=== PATIENT | male | born 1945 | race Caucasian/White ===

== ENCOUNTER → 2017-08-24 09:36 | Outpatient (CLI) | payer MEDICARE, OTHER, SELFPAY ==
[2017-08-24 10:32] LABS: Absolute Lymphocyte Count 1.17 X10^3/ul (0.83-4.51); Absolute Neutrophil Count 3.9 X10^3/uL (2.0-7.7); Basophil# 0.08 X10^3/uL; Basophil% 1.4 % (0-1); Eosinophils% 3.5 % (0-5); Hematocrit 39.3 % (40-54); Hemoglobin 13.2 g/dl (13.0-16.5); Lymphocyte # 1.17 X10^3/ul (4.0); Lymphocyte % 20.5 % (19-41); Mean Corp Hgb Conc 33.6 g/gl (32-36); Mean Corpuscular Hgb 30.7 pg (27.0-32.0); Mean Corpuscular Volume 91.4 fL (80-94); Mean Platelet Vol. 10.7 fl (6.2-12.0); Monocyte# 0.41 X10^3/uL; Monocyte% 7.2 % (0-10); Neutrophil # 3.85 X10^3/uL (2.7-7.7); Neutrophil % 67.4 % (47-70); POSITIVE DIFFERENTIAL NO; Platelet Count 342 K/mm3 (150-450); RBC Distribution Width CV 12.6 % (11.6-14.6); RBC Distribution Width SD 41.1 fl (35.1-43.9); White Blood Count 5.7 K/mm3 (4.4-11.0)
[2017-08-24 10:33] LABS: POSITIVE COUNT NO; POSITIVE MORPHOLOGY NO
[2017-08-24 10:48] LABS: Hemoglobin A1c 5.8 % (4.2-6.3)
[2017-08-24 11:02] LABS: BUN 24 mg/dL (7-18); Creatinine, Serum 1.42 mg/dL (0.70-1.30); Glucose 152 mg/dL (70-110)
[2017-08-24 11:03] LABS: AST(SGOT) 16 U/L (15-37); Alanine Aminotransfer ALT/SGPT 25 U/L (16-61); Albumin, Serum 3.7 g/dL (3.2-5.0); Alkaline Phosphatase 64 U/L (45-117); Anion Gap 9 (5-15); BUN/Creat Ratio 16.9 RATIO (10-20); Calcium,Total 9.3 mg/dL (8.5-10.1); Chloride 108 mmol/L (98-107); Cholesterol 158 mg/dL (200); EST Glomerular Filtration Rate 52 mL/min (>60); Est Glom Filt Rate - Afr Amer 63 mL/min (>60); Globulin 3.7 g/dL (2.2-4.2); High Density Lipoprotein 47 mg/dL; Potassium 4.5 mmol/L (3.5-5.1); Protein, Total 7.4 g/dL (6.4-8.2); Sodium Level 140 mmol/L (136-145); Triglycerides 127 mg/dL; Very Low Density Lipoprotein 25 mg/dL (5-40)
[2017-08-25 10:01] LABS: Vitamin B12 352 pg/mL (211-911)
== END ==
PROVIDERS: Family Provider Family Medicine; PCP Family Medicine; Visit Provider Family Medicine
DX: E11.21 Type 2 diabetes mellitus with diabetic nephropathy (principal); G62.9 Polyneuropathy, unspecified; I10 Essential (primary) hypertension; E78.5 Hyperlipidemia, unspecified
CPT/HCPCS: 36415; 80053; 80061; 82607; 83036; 85025

== ENCOUNTER → 2017-11-25 13:49 | Outpatient (CLI) | payer MEDICARE, OTHER, SELFPAY | PROVIDERS: Family Provider Family Medicine; PCP Family Medicine; Visit Provider Family Medicine | DX: G45.3 Amaurosis fugax (principal); E11.21 Type 2 diabetes mellitus with diabetic nephropathy; E78.5 Hyperlipidemia, unspecified | CPT/HCPCS: 93880 ==

== ENCOUNTER → 2017-11-26 12:56 | Outpatient (CLI) | payer MEDICARE, OTHER, SELFPAY ==
--- NOTE | 2017-11-26 13:05 | ECHOCS_ITS ---
Reason For Study: MURMUR Procedure This was a 2D Doppler, Color Flow transthoracic echocardiogram. The exam was of fair technical quality due to body habitus. The study was technically difficult. Contrast injection was performed. Exam performed in department. Left Ventricle Normal LV size. Left ventricular systolic function is normal. The estimated ejection fraction is 65 %. Unable to assess diastolic dysfunction due to arrhythmia. No regional wall motion abnormalities noted. Right Ventricle Normal RV size. Normal systolic function. Atria Normal left atrium. Normal right atrium. No doppler evidence for ASD. Mitral Valve There is no mitral annular calcification. Normal mitral valve. Trivial mitral valve insufficiency. Tricuspid Valve Normal tricuspid valve. Trivial tricuspid valve insufficiency. Aortic Valve Trisinus/trileaflet aortic valve. Mild focal aortic valve calcification. Pulmonic Valve The pulmonic valve is not well visualized. Trivial pulmonic valve insufficiency. Great Vessels Normal sized aortic root. Pericardium/Pleural No pericardial effusion. Medication 22 gauge I.V. with prn adaptor inserted into left arm. Diluted definity 2.0ml given slow IV push to enhance endocardial definition. MMode/2D Measurements & Calculations LVIDd: 4.8 cm IVSd: 0.84 cm Ao root diam: 3.0 cm LVIDs: 3.5 cm LVPWd: 1.0 cm LA dimension: 3.8 cm RVDd: 3.3 cm FS: 28.1 % LAV(MOD-bp): 57.0 ml LA A4 area: 19.2 cm2 RA A4 area: 14.1 cm2 LAV(MOD-bp) Indexed: 30.1 ml/m2 LAV(MOD-sp2): 57.6 ml LAV(MOD-sp4): 57.5 ml Doppler Measurements & Calculations MV E max ori: 110.0 cm/sec Lat Peak E' Ori: 11.2 cm/sec Med Peak E' Ori: 9.2 cm/sec MV A max ori: 92.4 cm/sec E/E' lat: 9.9 E/E' med: 12.0 MV E/A: 1.2 Ao V2 max: 186.0 cm/sec LV V1 max: 84.5 cm/sec PA V2 max: 124.6 cm/sec Ao max P.8 mmHg LV V1 max P.9 mmHg Interpretation Summary The study was technically difficult. Contrast injection was performed. Left ventricular systolic function is normal. The estimated ejection fraction is 65 %. Trivial mitral valve insufficiency. Trivial tricuspid valve insufficiency. Mild focal aortic valve calcification. Trivial pulmonic valve insufficiency. Unable to assess diastolic dysfunction due to arrhythmia. Ordering Physician: Damion Toscano Referring Physician: Guillaume Hancock MD Performed By: Aliyah Villela, TAQUERIA, RVT
== END ==
PROVIDERS: Family Provider Family Medicine; PCP Family Medicine; Visit Provider Family Medicine
DX: R01.1 Cardiac murmur, unspecified (principal); G45.3 Amaurosis fugax; I10 Essential (primary) hypertension
CPT/HCPCS: 93005; 93306; Q9957; A4216; C8929

== ENCOUNTER 2017-11-30 10:01 | Inpatient (IN) | payer MEDICARE, OTHER, SELFPAY ==
--- NOTE | 2017-11-26 13:59 | EKG12_ITS ---
Test Reason : PRE-OP Blood Pressure : / mmHG Vent. Rate : 056 BPM Atrial Rate : 056 BPM P-R Int : 118 ms QRS Dur : 098 ms QT Int : 408 ms P-R-T Axes : 017 -19 017 degrees QTc Int : 393 ms Sinus bradycardia Poor R wave progression Confirmed by KIYA SABA, ALBERT ([id number]), web editor KALEIGH SWEET ([id number]) on 11/29/2017 1:43:45 PM Referred By: Guillaume Hancock Confirmed By:ALBERT HUERTAS MD
[2017-11-26 15:56] LABS: Anion Gap 7 (5-15); BUN 25 mg/dL (7-18); BUN/Creat Ratio 17.4 RATIO (10-20); Calcium,Total 9.3 mg/dL (8.5-10.1); Chloride 109 mmol/L (98-107); Creatinine, Serum 1.44 mg/dL (0.70-1.30); EST Glomerular Filtration Rate 51 mL/min (>60); Est Glom Filt Rate - Afr Amer 62 mL/min (>60); Glucose 60 mg/dL (74-106); Potassium 4.8 mmol/L (3.5-5.1); Sodium Level 140 mmol/L (136-145)
[2017-11-26 16:37] LABS: Hematocrit 40.6 % (40-54); Hemoglobin 13.5 g/dl (13.0-16.5); Mean Corp Hgb Conc 33.3 g/gl (32-36); Mean Corpuscular Volume 93.1 fL (80-94); Mean Platelet Vol. 12.1 fl (6.2-12.0); Platelet Count 294 K/mm3 (150-450); RBC Distribution Width CV 12.8 % (11.6-14.6); RBC Distribution Width SD 42.7 fl (35.1-43.9); Red Blood Count 4.36 M/mm3 (4.6-6.2); White Blood Count 8.9 K/mm3 (4.4-11.0)
[2017-11-26 16:51] LABS: Scan Indicated on CBC? Y/N NO
[2017-11-29 15:00] LABS: Hemoglobin A1c 6.1 % (4.2-6.3)
[2017-11-30] VITALS (23 sets, daily range): BP systolic 110–160; BP diastolic 43–73; PULSE 62–85; RESP 16–18; TEMP 36.1–36.8; O2SAT 93–100; BMI 28.3; BMI 28.9
[2017-11-30 10:26] LABS: Bedside Glucose 138 mg/dL (70-110)
--- NOTE | 2017-11-30 10:50 | OP.PCM_ITS ---
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 Right carotid endarterectomy with bovine patch angioplasty Description of Surgical Findings:: At the bedside timeout and informed consent was obtained. Phoenix test was performed of the left wrist. It was gently extended. Prepped with Betadine. Under ultrasound guidance 1% lidocaine was instilled. 1 cc was used. Under ultrasound guidance a 20-gauge Angiocath was advanced into the left radial artery. I then utilized Seldinger wire technique. I exchanged out for a 20- gauge aero kit Angiocath. Secured at the skin with interrupted 3-0 silk. It was connected to pressure tubing. OpSite dressing applied. Jessica wrap applied. He tolerated the procedure well. The hand was viable to completion without apparent complication. Good waveform was obtained. He was subsequently taken back to the operating room for planned definitive surgery.
[2017-11-30] MEDS: Cefazolin 2 GM in 0.9% Normal Saline 100 ML IV (11:35)
--- NOTE | 2017-11-30 11:42 | PCM.DC.GS ---
Discharge Diet: Light diet - advance as tolerated - if you have questions about your diet instructions, please talk to you doctor. Discharge Activity: May Not Drive - for 1 week or while taking narcotic pain medicine., May Not Shower Lifting Restrictions: 10 pounds Call your doctor if your incision/area has: Continuous Slow Oozing, Sudden Increased Bleeding, Increased Pain/ Swelling, Increased Redness, Foul Smelling Discharge Call your doctor if you observe: Fever of 101 or Higher Suture Line Care: Avoid Pulling/Pushing, Avoid Pinching/Bending Additional Dressing/Incision Instructions:: Please keep your right neck incision clean and dry for 3 days. You may shower starting Wednesday. You may remove the Steri-Strips in 1 week Allergies/Adverse Reactions: Allergies tetanus and diphtheria toxoids Allergy (Verified 11/26/17 15:46) Rash Fbjxjpz-Oqm-Lmy Reductase Inhibitor Adverse Reaction (Verified 11/26/17 15:46) Other Medications to take at Discharge Aspirin E.C. [Ecotrin] 81 mg PO DAILY@0800 04/16/17 Gabapentin [Neurontin] 100 mg PO QHS 04/16/17 Glimepiride [Amaryl] 2 mg PO BREAKFAST 04/16/17 Hydrochlorothiazide [Hctz] 25 mg PO DAILY 04/16/17 Lisinopril [Zestril] 10 mg PO DAILY 04/16/17 Metformin HCl 1,000 mg PO BID 04/16/17 Ranitidine [Zantac] 150 mg PO QHS 04/16/17 Tamsulosin HCl [Flomax] 0.4 mg PO QHS 04/16/17 pioglitazone 15 mg tablet 15 mg PO DAILY 11/26/17 Hydrocodone Bitart/Apap 5-325 [[place] 5MG-325MG] 1 tablet PO Q6H PRN PRN 4 Days #10 tablet 11/30/17 The following prescriptions were given: Hydrocodone Bitart/Apap 5-325 [[place] 5MG-325MG] 1 tablet PO Q6H PRN PRN 4 Days #10 tablet PRN Reason: Pain Primary Care Physician: Damion Toscano MD [Primary Care Provider] - Please Follow Up With: Guillaume Hancock MD - [phone] When: Call to make an appointment to be seen in about 10 days.
--- NOTE | 2017-11-30 12:00 | PLAQ_PTH ---
PATIENT: SYD BARNETT LOC: MS2 U#:[id number] AGE/SX: 72/M RO[facility] [facility] RE11/30/[address]: Dr. Guillaume Hancock MD : 1945 BED: 1 DIS: 12/01/2017 SPEC #: [id number] RECD: 12/01/17 10:09 STATUS: LILLI REMitesh #: [id number] JOE: 11/30/17 12:[address]: Guillaume Hancock DEPT: SURGICAL PATHOLOGY RECD BY: Lloyd Hall ENTERED: 12/01/17 10:57 SP TYPE: PLAQUE OTHR DR: Dr. Damion Toscano MD Tissues: PLAQUE Procedures: Decalcification bone/plaque Surgery Specimen Level III HEADER OPERATION: Right carotid endarterectomy with patch angioplasty PRE-OP DIAGNOSIS: Right carotid stenosis TISSUE SUBMITTED: Right carotid plaque MICROSCOPIC DIAGNOSIS Right carotid plaque, endarterectomy: Atherosclerotic tissue with focal calcification (plaque). SJ:mayra 12/07/17 GROSS DESCRIPTION Received in fixative is one container labeled with the patient's name and designated right carotid plaque. The specimen consists of a previously opened Y-shaped piece of hastings-yellow indurated tissue measuring 2.5 cm in length and up to 1 cm in diameter. The specimen cuts with a gritty sensation. The entire specimen is submitted in one cassette after decalcification. / MINE:mayra 12/01/17 TC:5 CPT: 17148, 12210
[2017-11-30] MEDS: Heparin Injection (Vial) 5,000 UNIT/ML VIAL 5000 UNIT (12:15)
[2017-11-30] MEDS: Bupivacaine Mpf 0.5% 30 ML VIAL (14:00)
--- NOTE | 2017-11-30 14:08 | PCM.OPRPT ---
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 Right carotid endarterectomy with bovine patch angioplasty Description of Surgical Findings:: At the bedside timeout and informed consent was obtained. Phoenix test was performed of the left wrist. It was gently extended. Prepped with Betadine. Under ultrasound guidance 1% lidocaine was instilled. 1 cc was used. Under ultrasound guidance a 20-gauge Angiocath was advanced into the left radial artery. I then utilized Seldinger wire technique. I exchanged out for a 20-gauge aero kit Angiocath. Secured at the skin with interrupted 3-0 silk. It was connected to pressure tubing. OpSite dressing applied. Jessica wrap applied. He tolerated the procedure well. The hand was viable to completion without apparent complication. Good waveform was obtained. He was subsequently taken back to the operating room for planned definitive surgery. Patient subsequently underwent general endotracheal intubation and anesthesia. The right neck was sterilely prepped draped. Ancef 2 g given intravenous preoperatively. An oblique incision was made along the anterior border the sternocleidomastoid. Sharp dissection was carried down through the substance tissue. The platysma was incised. The crossing facial vein was identified and it was ligated with 3-0 Vicryl. Tedious dissection was performed deeply and then it became apparent that the patient had a very low-lying carotid bifurcation. The incision had to be lengthened inferiorly. Finally the carotid bulb could be identified and sharp and blunt dissection was then performed proximally. Circumferential control was obtained a Dacron tape and a Denise fashion. At this point the patient received 10 units of heparin. Further dissection was performed identifying the internal carotid it appeared to have plaque extending for quite a distance I got to an area that appeared to be clear and then placed a Dacron tape and Dangelo tourniquet. Circumferential trial was obtained of the external carotid. The patient had well adequate circling time of the heparin. Peripheral vascular clamps were placed on the internal and external carotid and a Walker clamp was placed on the common carotid and 11 blade was made used to make an arteriotomy but I could not extended through the hard plaque so that I had to readjust and use a 15 blade to incise directly down upon the plaque I used large Denise scissors to create a opening. The vessel had to be irrigated I then placed a #8 USCI style shunt cephalad and proximally. Time for shunt placement was 4 minutes and 27 seconds. Then performed a endarterectomy at the layer of the external elastic lamina. The plaque was sharply transected proximally and then it was nicely feathered at the internal carotid and inversion enterectomy was performed of the external carotid. Further debris was carefully removed. I then utilized a Vascu-Guard graft reference number [id number] and . PN #[id number]. Lot number [id number]. I shaped to form and performed a patch angioplasty with a running 6-0 Prolene. Prior to completion the shunt was removed there was good retrograde flow from the internal carotid external carotid common carotid. The angioplasty was completed initial flow was instituted from the external carotid common carotid find the internal carotid. Time for shunt removal was 2 minutes and 25's. A repair suture of 7-0 Prolene was used to obtain hemostasis. The patient then received in aliquots a total 30 mg of protamine his reversal. I used Surgicel to assist with hemostasis and I removed the Surgicel. The platysma was approximated running 3-0 Vicryl. The skin edges approximately running septic or 5-0 Vicryl. Steri-Strips Telfa tape dressings applied. Sponge instrument and needle counts were reported to the surgeon to be correct. Blood loss was approximately 300 cc. He tolerated the procedure well and was grossly checked neurologically. He was taken to the recovery room in satisfactory condition Specimens plaque. Drains none. Blood loss 300. Guillaume Hancock M.D., F.A.C.S. Type of Anesthesia:: General Anesthesiologist: Yosef Tijerina
--- NOTE | 2017-11-30 14:16 | OP.PCM_ITS ---
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 Right carotid endarterectomy with bovine patch angioplasty Description of Surgical Findings:: At the bedside timeout and informed consent was obtained. Phoenix test was performed of the left wrist. It was gently extended. Prepped with Betadine. Under ultrasound guidance 1% lidocaine was instilled. 1 cc was used. Under ultrasound guidance a 20-gauge Angiocath was advanced into the left radial artery. I then utilized Seldinger wire technique. I exchanged out for a 20- gauge aero kit Angiocath. Secured at the skin with interrupted 3-0 silk. It was connected to pressure tubing. OpSite dressing applied. Jessica wrap applied. He tolerated the procedure well. The hand was viable to completion without apparent complication. Good waveform was obtained. He was subsequently taken back to the operating room for planned definitive surgery. Patient subsequently underwent general endotracheal intubation and anesthesia. The right neck was sterilely prepped draped. Ancef 2 g given intravenous preoperatively. An oblique incision was made along the anterior border the sternocleidomastoid. Sharp dissection was carried down through the substance tissue. The platysma was incised. The crossing facial vein was identified and it was ligated with 3-0 Vicryl. Tedious dissection was performed deeply and then it became apparent that the patient had a very low-lying carotid bifurcation. The incision had to be lengthened inferiorly. Finally the carotid bulb could be identified and sharp and blunt dissection was then performed proximally. Circumferential control was obtained a Dacron tape and a Denise fashion. At this point the patient received 10 units of heparin. Further dissection was performed identifying the internal carotid it appeared to have plaque extending for quite a distance I got to an area that appeared to be clear and then placed a Dacron tape and Dangelo tourniquet. Circumferential trial was obtained of the external carotid. The patient had well adequate circling time of the heparin. Peripheral vascular clamps were placed on the internal and external carotid and a Walker clamp was placed on the common carotid and 11 blade was made used to make an arteriotomy but I could not extended through the hard plaque so that I had to readjust and use a 15 blade to incise directly down upon the plaque I used large Denise scissors to create a opening. The vessel had to be irrigated I then placed a #8 USCI style shunt cephalad and proximally. Time for shunt placement was 4 minutes and 27 seconds. Then performed a endarterectomy at the layer of the external elastic lamina. The plaque was sharply transected proximally and then it was nicely feathered at the internal carotid and inversion enterectomy was performed of the external carotid. Further debris was carefully removed. I then utilized a Vascu-Guard graft reference number [id number] and . PN #[id number]. Lot number [id number]. I shaped to form and performed a patch angioplasty with a running 6-0 Prolene. Prior to completion the shunt was removed there was good retrograde flow from the internal carotid external carotid common carotid. The angioplasty was completed initial flow was instituted from the external carotid common carotid find the internal carotid. Time for shunt removal was 2 minutes and 25's. A repair suture of 7-0 Prolene was used to obtain hemostasis. The patient then received in aliquots a total 30 mg of protamine his reversal. I used Surgicel to assist with hemostasis and I removed the Surgicel. The platysma was approximated running 3-0 Vicryl. The skin edges approximately running septic or 5-0 Vicryl. Steri-Strips Telfa tape dressings applied. Sponge instrument and needle counts were reported to the surgeon to be correct. Blood loss was approximately 300 cc. He tolerated the procedure well and was grossly checked neurologically. He was taken to the recovery room in satisfactory condition Specimens plaque. Drains none. Blood loss 300. Guillaume Hancock M.D., F.A.C.S. Type of Anesthesia:: General Anesthesiologist: Yosef Tijerina
[2017-11-30 19:16] LABS: Bedside Glucose 100 mg/dL (70-110)
[2017-11-30] MEDS: Cefazolin 1 GM/50 ML BAG IV (20:22)
[2017-11-30] MEDS: Acetaminophen 325 MG Tablet PO (22:00)
[2017-11-30] MEDS: Gabapentin 100 MG Capsule PO (22:00)
[2017-11-30] MEDS: Famotidine 20 MG Tablet PO (22:00)
[2017-11-30] MEDS: Tamsulosin HCl 0.4 MG Capsule PO (22:00)
[2017-12-01 00:09] VITALS: BP 126/64; PULSE 90; RESP 18; TEMP 36.8; O2SAT 96
[2017-12-01 02:58] VITALS: BP 130/59; PULSE 69; RESP 18; TEMP 36.9
[2017-12-01] MEDS: Cefazolin 1 GM/50 ML BAG IV (02:58)
[2017-12-01 05:46] VITALS: BP 133/81; PULSE 70; RESP 18; TEMP 36.6; O2SAT 99
--- NOTE | 2017-12-01 06:02 | PCM.PN.SRG ---
Subjective: Pt feels well. No recurrence of right eye visual disturbance - Physical Exam General: Alert, Oriented x3, Cooperative HEENT: - - mild ecchymosis right neck Neurological: Cranial nerves II-XII grossly intact Vital Signs Temp Pulse Resp BP Pulse Ox 97.8 F 70 18 133/81 H 99 12/01/17 05:46 12/01/17 05:46 12/01/17 05:46 12/01/17 05:46 12/01/17 05:46 Oxygen Delivery Method Room Air Weight: 179 lb 14.355 oz Body Mass Index (BMI) 28.9 Finger Stick Blood Glucose 100 Intake and Output for Last 24 Hours 11/29/17 11/30/17 12/01/17 23:59 23:59 23:59 Intake Total 1974 / 1974 782 / 782 Output Total 350 / 350 1100 / 1100 Balance 1625 / 1625 -318 / -318 POC Glucose 11/30/17 11/30/17 19:14 10:23 POC Glucose 100 138 H Medical Necessity - Tobacco Use Smoking Status: Former smoker Assessment/Plan Good CEA result Urinary retention. Need to assure improved prior to DC
--- NOTE | 2017-12-01 06:14 | NURSING ---
PT REPORTED PRESSURE IN HIS BLADDER. BLADDER SCANNED PT FOR 381. PT IS VOIDING WELL AND ENCOURAGED TO STAND WHILE VOIDING. WILL CONTINUE TO MONITOR. DR LEE NOTIFIED.
[2017-12-01 07:55] VITALS: BP 137/63; PULSE 65; RESP 16; TEMP 36.8; O2SAT 100
[2017-12-01] MEDS: Acetaminophen 325 MG Tablet PO (08:09)
[2017-12-01 08:36] LABS: Bedside Glucose 134 mg/dL (70-110)
[2017-12-01] MEDS: Aspirin E.C. 81 MG Tablet PO (08:38)
[2017-12-01] MEDS: Glimepiride 2 MG Tablet PO (08:39)
[2017-12-01] MEDS: Lisinopril 10 MG Tablet PO (08:39)
[2017-12-01] MEDS: hydroCHLOROthiazide 25 MG Tablet PO (08:39)
[2017-12-01] MEDS: metFORMIN HCl 1,000 MG Tablet 1000 MG PO (08:39)
[2017-12-01] MEDS: Pioglitazone Hydrochloride 15 MG Tablet PO (08:39)
--- NOTE | 2017-12-01 08:39 | NURSING ---
0800 meds given with 1000 meds as pt states that he does at home
--- NOTE | 2017-12-01 11:25 | NURSING ---
Eileen Kraft called in to check if patient has been urinating- pt reports that he is urinating large amounts- similar to how he was prior to surgery. Educated patient and his that if pt would become unable to urinate that he should go see physician. Pt verbalized understanding- and states that he is having no difficulty.
--- NOTE | 2017-12-01 11:26 | CASEMGMT ---
See RN CM assessment link. No dc needs identified. Pt to return home today with family support. Milena LUNAN RN ACM
== END 2017-12-01 12:04 | disposition home or self-care (01) | DRG 38 ==
LOC: ACINP 10:04 → MS2 15:19
PROVIDERS: Admitting Provider Surgery; Family Provider Family Medicine; PCP Family Medicine; Visit Provider Surgery
PROC: 03CK0ZZ Extirpation of Matter from Right Internal Carotid Artery, Open Approach (ICD-10-PCS; CPT 35301; principal; 2017-11-30 11:40)
DX: I65.21 Occlusion and stenosis of right carotid artery (principal); G45.3 Amaurosis fugax; E11.9 Type 2 diabetes mellitus without complications; I10 Essential (primary) hypertension; E78.5 Hyperlipidemia, unspecified; M19.90 Unspecified osteoarthritis, unspecified site; K21.9 Gastro-esophageal reflux disease without esophagitis; R33.9 Retention of urine, unspecified; Z79.84 Long term (current) use of oral hypoglycemic drugs; Z79.02 Long term (current) use of antithrombotics/antiplatelets; Z79.82 Long term (current) use of aspirin; Z79.899 Other long term (current) drug therapy; Z87.891 Personal history of nicotine dependence
CPT/HCPCS: 36415; 80048; 82962; 83036; 85027; 88304; 88311; 93005; 97802; J7040; J7120

== ENCOUNTER → 2017-12-30 08:40 | Outpatient (CLI) | payer MEDICARE, OTHER, SELFPAY ==
--- NOTE | 2017-12-30 08:40 | DT_ITS ---
This patient was seen during an EMR downtime December 27, 2017 - January 03, 2018. This patient may have a combination of paper and electronic documentation or all paper documentation. All documentation is viewable within the e-chart portion of [employer] for each patient visit.
--- NOTE | 2017-12-30 08:44 | CDUL_ITS ---
Reason For Study: carotid stenosis Rt. Velocities/BP Prox CCA 54.5/19.9 cm/sec. Mid CCA 39.8/11.4 cm/sec. Dist CCA 50.3/19.6 cm/sec. Prox ICA 45.6/13.8 cm/sec. Mid ICA 76.2/21.2 cm/sec. Dist ICA 120/32.2 cm/sec. Rt. ICA/CCA = 3.0. Prox ECA 348/44.9 cm/sec. Rt. Vert. 62.5/18.1 cm/sec. Right Extracranial There is intimal thickening but no significant atherosclerotic plaque noted in the right common carotid artery. There is intimal thickening but no significant atherosclerotic plaque noted in the right internal carotid artery. There is heterogeneous, irregular atherosclerotic plaque noted in the right external carotid artery. Antegrade flow is noted in the right vertebral artery. Interpretation Summary Evidence of right carotid endarterectomy with no significant plague of the bulb or internal carotid. <50% stenosis right internal carotid Severe stenosis right external carotid Patent and antegrade right vertebral Ordering Physician: Guillaume Hancock Performed By: Talon Christie RVTiera
== END ==
PROVIDERS: Family Provider Family Medicine; PCP Family Medicine; Visit Provider Surgery
DX: G45.3 Amaurosis fugax (principal)
CPT/HCPCS: 93882

== ENCOUNTER → 2018-02-02 10:47 | Outpatient (CLI) | payer MEDICARE, OTHER, SELFPAY ==
[2018-02-02 12:39] LABS: Anion Gap 9 (5-15); BUN 24 mg/dL (7-18); Calcium,Total 8.9 mg/dL (8.5-10.1); Chloride 109 mmol/L (98-107); EST Glomerular Filtration Rate 49 mL/min (>60); Est Glom Filt Rate - Afr Amer 59 mL/min (>60); Glucose 174 mg/dL (74-106); Potassium 4.8 mmol/L (3.5-5.1); Sodium Level 140 mmol/L (136-145)
== END ==
PROVIDERS: Family Provider Family Medicine; PCP Family Medicine; Visit Provider Family Medicine
DX: I12.9 Hypertensive chronic kidney disease with stage 1 through stage 4 chronic kidney disease, or unspecified chronic kidney disease (principal); N18.9 Chronic kidney disease, unspecified
CPT/HCPCS: 36415; 80048

== ENCOUNTER → 2018-04-06 14:05 | Outpatient (CLI) | payer MEDICARE, OTHER, SELFPAY ==
[2018-04-06 16:00] LABS: Anion Gap 11 (5-15); BUN 17 mg/dL (7-18); BUN/Creat Ratio 11.9 RATIO (10-20); Calcium,Total 9.2 mg/dL (8.5-10.1); Chloride 109 mmol/L (98-107); Creatinine, Serum 1.43 mg/dL (0.70-1.30); EST Glomerular Filtration Rate 52 mL/min (>60); Est Glom Filt Rate - Afr Amer 63 mL/min (>60); Glucose 71 mg/dL (74-106); Potassium 4.8 mmol/L (3.5-5.1); Sodium Level 143 mmol/L (136-145)
== END ==
PROVIDERS: Family Provider Family Medicine; PCP Family Medicine; Visit Provider Family Medicine
DX: N18.9 Chronic kidney disease, unspecified (principal)
CPT/HCPCS: 36415; 80048

== ENCOUNTER → 2018-07-27 08:18 | Outpatient (CLI) | payer MEDICARE, OTHER, SELFPAY ==
[2018-07-27 12:38] LABS: Absolute Lymphocyte Count 1.64 X10^3/ul (0.83-4.51); Absolute Neutrophil Count 3.1 X10^3/uL (2.0-7.7); Basophil% 1.8 % (0-1); Eosinophil# 0.36 X10^3/uL; Eosinophils% 6.3 % (0-5); Hematocrit 38.5 % (40-54); Hemoglobin 12.8 g/dl (13.0-16.5); Lymphocyte # 1.64 X10^3/ul (4.0); Lymphocyte % 28.8 % (19-41); Mean Corp Hgb Conc 33.2 g/gl (32-36); Mean Corpuscular Hgb 30.9 pg (27.0-32.0); Mean Platelet Vol. 11.7 fl (6.2-12.0); Monocyte# 0.53 X10^3/uL; Monocyte% 9.3 % (0-10); Neutrophil # 3.05 X10^3/uL (2.7-7.7); Neutrophil % 53.6 % (47-70); Platelet Count 252 K/mm3 (150-450); RBC Distribution Width CV 12.5 % (11.6-14.6); RBC Distribution Width SD 41.6 fl (35.1-43.9); Red Blood Count 4.14 M/mm3 (4.6-6.2); White Blood Count 5.7 K/mm3 (4.4-11.0)
[2018-07-27 12:41] LABS: POSITIVE COUNT NO; POSITIVE DIFFERENTIAL NO; POSITIVE MORPHOLOGY NO
[2018-07-27 12:50] LABS: Anion Gap 11 (5-15); BUN 18 mg/dL (7-18); BUN/Creat Ratio 12.2 RATIO (10-20); Calcium,Total 8.7 mg/dL (8.5-10.1); Chloride 108 mmol/L (98-107); Creatinine, Serum 1.48 mg/dL (0.70-1.30); EST Glomerular Filtration Rate 50 mL/min (>60); Est Glom Filt Rate - Afr Amer 60 mL/min (>60); Glucose 169 mg/dL (74-106); Potassium 4.8 mmol/L (3.5-5.1); Sodium Level 139 mmol/L (136-145)
== END ==
PROVIDERS: Family Provider Family Medicine; PCP Family Medicine; Visit Provider Family Medicine
DX: I12.9 Hypertensive chronic kidney disease with stage 1 through stage 4 chronic kidney disease, or unspecified chronic kidney disease (principal); N18.9 Chronic kidney disease, unspecified
CPT/HCPCS: 36415; 80048; 85025

== ENCOUNTER → 2018-08-11 12:44 | Outpatient (CLI) | payer MEDICARE, OTHER, SELFPAY ==
--- NOTE | 2018-08-11 09:00 | CYST_PTH ---
PATIENT: SYD BARNETT LOC: JULIENNE U#:[id number] AGE/SX: 79/M ROOM: RE08/11/[address]: Dr. Guillaume Hancock MD : 1945 BED: DIS: SPEC #: [id number] RECD: 08/11/18 12:14 STATUS: LILLI GRANT #: [id number] JOE: 08/11/18 09:[address]: Guillaume Hancock DEPT: SURGICAL PATHOLOGY RECD BY: Randy Vo ENTERED: 08/11/18 12:50 SP TYPE: Cyst OTHR DR: Dr. Damion Toscano MD Tissues: CYST Procedures: PAS Fungus (control) Special Stain Group I Surgery Specimen Level IV AFB Stain (control) HEADER OPERATION: Excision chin cyst PRE-OP DIAGNOSIS: Chin cyst TISSUE SUBMITTED: Chin tissue MICROSCOPIC DIAGNOSIS Skin and soft tissue of chin, biopsy: Non-necrotizing granulomatous and chronic inflammation. Focal benign histiocytic reaction. No evidence of malignancy. Negative for acid-fast bacilli and fungal organisms. See comment. AM:rg 08/12/18 COMMENT PASF and AFB stains with matched controls were used in the evaluation of this case. MICROSCOPIC DESCRIPTION Slides are reviewed. GROSS DESCRIPTION Received in fixative is one container labeled with the patient's name and designated chin. The specimen consists of a hastings-white skin ellipse measuring 1.5 x 0.5 cm and up to 0.4 cm in thickness. The specimen is inked, serially sectioned and submitted entirely in one cassette. / SJ:mayra 08/11/18 TC:3 CPT: 38137, 15223 x2
--- OUTSIDE RECORDS SUMMARY | 2018-10-16 05:22 | XMS RPT_ITS ---
:1945 Author Organization OHIP Support Name Relationship Address Phone ANTHONY BARNETT Unavailable [address] + [place] [address] ANIBAL, NOEMI Unavailable . + [place] [address] R Unavailable Unavailable Unavailable ALVO, [place] Unavailable [address] + [place] [address] ANIBAL, NOEMI Unavailable Unavailable + [place] [address] R Unavailable Unavailable Unavailable ALVO, [place] Unavailable [address] + [place] [address] ANIBAL, NOEMI Unavailable . + [place] [address] R Unavailable Unavailable Unavailable ALVO, [place] Unavailable [address] + [place] [address] ANIBAL, NOEMI Unavailable . + [place] [address] R Unavailable Unavailable Unavailable ALVO, [place] Unavailable [address] + [place] [address] ANIBAL, NOEMI Unavailable . + [place] [address] R Unavailable Unavailable Unavailable ALVO, [place] Unavailable [address] + [place] [address] ANIBAL, NOEMI Unavailable . + [place] [address] R Unavailable Unavailable Unavailable ALVO, [place] Unavailable [address] + [place] [address] ANIBAL, NOEMI Unavailable . + [place] [address] R Unavailable Unavailable Unavailable ALVO, [place] Unavailable [address] + [place] [address] ANIBAL, NOEMI Unavailable . + [place] [address] R Unavailable Unavailable Unavailable ALVO, [place] Unavailable [address] + [place] [address] ANIBAL, NOEMI Unavailable . + [place] [address] R Unavailable Unavailable Unavailable ALVO, [place] Unavailable [address] + [place] [address] ANIBAL, NOEMI Unavailable . + [place] [address] R Unavailable Unavailable Unavailable ALVO, [place] Unavailable [address] + [place] [address] ANIBAL, NOEMI Unavailable Unavailable + [place] [address] R Unavailable Unavailable Unavailable ALVO, [place] Unavailable [address] + [place] [address] ANIBAL, NOEMI Unavailable . + [place] [address] R Unavailable Unavailable Unavailable ALVO, [place] Unavailable [address] + [place] [address] R Unavailable Unavailable Unavailable ALVO, [place] Unavailable [address] + [place] [address] ANIBAL, Noemi Unavailable . + [place] [address] R Unavailable Unavailable Unavailable ALVO, [place] Unavailable [address] + [place] [address] ANIBAL, NOEMI Unavailable . + [place] [address] R Unavailable Unavailable Unavailable ALVO, [place] Unavailable [address] + [place] [address] ANIBAL, Noemi Unavailable . + [place] [address] R Unavailable Unavailable Unavailable ALVO, [place] Unavailable [address] + [place] [address] ANIBAL, NOEMI Unavailable . + [place] [address] R Unavailable Unavailable Unavailable ALVO, [place] Unavailable [address] + [place] [address] R Unavailable Unavailable Unavailable ALVO, [place] Unavailable [address] + [place] [address] NOEMI BARNETT Unavailable . + [place] [address] R Unavailable Unavailable Unavailable ANTHONY BARNETT Unavailable [address] + [place] [address] R Unavailable Unavailable Unavailable Care Team Providers Name Role Phone Damion Toscano Attending Unavailable Dorcas, Damion Primary Care Unavailable Cebul, Guillaume Attending Unavailable Dorcas, Damion Referring Unavailable Dorcas, Damion Attending Unavailable Dorcas, Damion Referring Unavailable Dorcas, Arlington Primary Care Unavailable Cebul, Guillaume Attending Unavailable Dorcas, Damion Referring Unavailable Cebul, Guillaume Attending Unavailable Cebul, Guillaume Referring Unavailable Dorcas, Daimon Primary Care Unavailable Eileen Kraft PA-C Attending Unavailable Dorcas, Damion Referring Unavailable Dorcas, Damion Attending Unavailable Dorcas, Damion Referring Unavailable Dorcas, Damion Primary Care Unavailable Cebul, Guillaume Attending Unavailable Dorcas, Damion Referring Unavailable Cebul, Guillaume Attending Unavailable Dorcas, Damion Referring Unavailable Dorcas, Damion Primary Care Unavailable Dorcas, Damion Attending Unavailable Dorcas, Damion Referring Unavailable Dorcas, [place] Primary Care Unavailable Cebul, Guillaume Admitting Unavailable Cebul, Guillaume Attending Unavailable Dorcas, Damion Primary Care Unavailable Cebul, Guillaume Referring Unavailable Cebul, Guillaume Attending Unavailable Dorcas, Damion Referring Unavailable Dorcas, Damion Primary Care Unavailable Cebul, Guillaume Attending Unavailable Cebul, Guillaume Attending Unavailable MoodispaRohit monroy Attending Unavailable Dorcas, Damion Referring Unavailable Cebul, Guillaume Attending Unavailable Cebul, Guillaume Referring Unavailable Dorcas, Damion Primary Care Unavailable MoodisRohit saldaña Attending Unavailable Dorcas, Damion Referring Unavailable Dorcas, Damion Attending Unavailable Dorcas, Arlington Primary Care Unavailable Cebul, Guillaume Attending Unavailable Dorcas, Damion Attending Unavailable Dorcas, [place] Primary Care Unavailable PROBLEMS PROBLEMS DATE TYPE CONDITION / CODE ATTENDING STATUS SOURCE 08/11/2018 Unknown L72.3 - Sebaceous Cebul, Guillaume Active [place] cyst / L72.3(ICD-10) [facility] Hospital Repository 07/30/2018 Unknown G45.3 - Amaurosis Cebul, Guillaume Active [place] fugax / Community G45.3(ICD-10) Hospital Repository 04/06/2018 Unknown N18.9 - Chronic Dorcas, Damion Active [place] kidney disease, Community unspecified / Hospital N18.9(ICD-10) Repository 02/14/2018 Unknown I65.21 - Occlusion Cebul, Guillaume Active [place] and stenosis of [facility] right carotid artery Hospital / I65.21(ICD-10) Repository 12/16/2017 Unknown I65.23 - Occlusion Cebul, Guillaume Active [place] and stenosis of [facility] bilateral carotid Hospital arteries / Repository I65.23(ICD-10) 12/01/2017 Unknown G89.18 - Other acute Cebul, Guillaume Active [place] postprocedural pain [facility] / G89.18(ICD-10) Hospital Repository 12/23/2017 Unknown R01.1 - Cardiac MoodispaRohit monroy Active [place] murmur, unspecified Community / R01.1(ICD-10) Hospital Repository 01/11/2018 Unknown I10 - Essential MoodispawRohit Active [place] (primary) Community hypertension / Hospital I10(ICD-10) Repository 01/11/2018 Unknown R00.1 - Bradycardia, MoodispaRohit monroy Active [place] unspecified / Community R00.1(ICD-10) Hospital Repository 11/25/2017 Unknown 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 / Repository E11.21(ICD-10) 11/25/2017 Unknown E78.5 - DorcasDamion ibrahim [facility] [place] Hyperlipidemia, [facility] unspecified / Hospital E78.5(ICD-10) Repository 08/24/2017 Unknown G62.9 - Damion Toscano Active [place] Polyneuropathy, [facility] unspecified / Hospital G62.9(ICD-10) Repository PROCEDURES PROCEDURES No Procedure Records FoundRESULTS RESULTS SURGERY VISIT REPORT Observed: 08/15/2018 Status: F Source: [place] 2:21 PM [facility] REPOSITORY [facility] [address] [place] [address]. [address] [place] [address] OFFICE VISIT Date of Service: 08/15/18 MR#: [id number] Acct: [id number] Name: JOAO BARNETT Miesha Rep #: [id number] : 1945 Provider: Eileen Kraft PA-C Age/Sex: 72/M Location: [facility] Status: Signed Intake Intake Visit Reasons: Suture Removal Chief Complaint: excision left chin cyst Staffing And Scheduling Coordinator Required: No Is patient in pain?: No Allergies tetanus and diphtheria toxoids Allergy (Verified 08/15/18 13:15) Rash Ytyhffs-Fpv-Eua Reductase Inhibitor Adverse Reaction (Verified 08/15/18 13:15) Other Medications Aspirin E.C. [Ecotrin] 81 mg PO DAILY@0800 04/16/17 [History Confirmed 08/15/18] Gabapentin [Neurontin] 100 mg PO QHS 04/16/17 [History Confirmed 08/15/18] Glimepiride [Amaryl] 2 mg PO BREAKFAST 04/16/17 [History Confirmed 08/15/18] Hydrochlorothiazide [Hctz] 25 mg PO DAILY 04/16/17 [History Confirmed 08/15/18] Lisinopril [Zestril] 10 mg PO DAILY 04/16/17 [History Confirmed 08/15/18] Metformin HCl 1,000 mg PO BID 04/16/17 [History Confirmed 08/15/18] Ranitidine [Zantac] 150 mg PO QHS 04/16/17 [History Confirmed 08/15/18] Tamsulosin HCl [Flomax] 0.4 mg PO QHS 04/16/17 [History Confirmed 08/15/18] pioglitazone 15 mg tablet 15 mg PO DAILY 11/26/17 [History Confirmed 08/15/18] Subjective Details: Patient is a 72 y/o male I am following for skin lesion of the chin. Dr. Hancock performed an excision of the chin skin lesion on 08/11/18. Pathology demonstrated chronic inflammation of chin cyst. Patient denies pain/discomfort. He denies drainage. Objective Details: Chin- incision c/d/i. No erythema or infection noted. Assessment AND Plan Problems 1. Sebaceous cyst L72.3 Plan - Follow-up as needed Coding Level of Care Code Global Post Op Diagnoses Sebaceous cyst L72.3 08/15/18 1421 <Electronically signed by Eileen Kraft PA-C> Date Eileen Kraft PA-C Cosigner Signature: Date (if applicable) CC: Damion Toscano MD SURGERY VISIT REPORT Observed: 08/11/2018 Status: F Source: [place] 3:39 PM [facility] REPOSITORY [facility] [address] [place] [address] OFFICE VISIT Date of Service: 08/11/18 MR#: [id number] Acct: [id number] Name: JOAO BARNETT Rep #: [id number] : 1945 Provider: Guillaume Hancock MD Age/Sex: 72/M Location: [facility] Status: Signed Intake Intake Visit Reasons: Excision of Cyst Lower Area of Chin Chief Complaint: left chin cyst Allergies tetanus and diphtheria toxoids Allergy (Verified 08/11/18 07:52) Rash Fgcyeih-Dfc-Tsd Reductase Inhibitor Adverse Reaction (Verified 08/11/18 07:52) Other Medications Aspirin E.C. [Ecotrin] 81 mg PO DAILY@0800 04/16/17 [History Confirmed 07/30/18] Gabapentin [Neurontin] 100 mg PO QHS 04/16/17 [History Confirmed 07/30/18] Glimepiride [Amaryl] 2 mg PO BREAKFAST 04/16/17 [History Confirmed 07/30/18] Hydrochlorothiazide [Hctz] 25 mg PO DAILY 04/16/17 [History Confirmed 07/30/18] Lisinopril [Zestril] 10 mg PO DAILY 04/16/17 [History Confirmed 07/30/18] Metformin HCl 1,000 mg PO BID 04/16/17 [History Confirmed 07/30/18] Ranitidine [Zantac] 150 mg PO QHS 04/16/17 [History Confirmed 07/30/18] Tamsulosin HCl [Flomax] 0.4 mg PO QHS 04/16/17 [History Confirmed 07/30/18] pioglitazone 15 mg tablet 15 mg PO DAILY 11/26/17 [History Confirmed 07/30/18] PFSH Medical History Sebaceous cyst (Acute) Amaurosis fugax of right eye (Acute) Carotid stenosis (Acute) Diabetes (Acute) GERD (gastroesophageal reflux disease) (Acute) Hemorrhoid (Acute) Hyperlipidemia (Acute) Osteoarthritis (Acute) Sciatica (Acute) HTN (hypertension) (Chronic) Surgical History History of right-sided carotid endarterectomy (Acute 11/2017) History of umbilical hernia (Acute) S/P colonoscopy (Acute) S/P inguinal hernia repair (Acute) S/P ventral herniorrhaphy (Acute) Family History Father Diabetes Heart disease Myocardial infarction Mother CAD (coronary artery disease) Social History Smoking Status: Former smoker HPI HPI HPI: JOAO BARNETT, is a 72 M who presents to the office today for excision of the left chin/anterior neck sebaceous cyst Assessment AND Plan Orders Orders: 08/11/18 1539 <Electronically signed by Guillaume Hancock MD> Date Guillaume Hancock MD Cosigner Signature: Date (if applicable) CC: SURGERY VISIT REPORT Observed: 08/11/2018 Status: F Source: [place] 9:07 AM [facility] [address] [place] [address] [address] [place] [address] OFFICE VISIT Date of Service: 08/11/18 MR#: [id number] Acct: [id number] Name: JOAO BARNETT Rep #: [id number] : 1945 Provider: Guillaume Hancock MD Age/Sex: 72/M Location: [facility] Status: Signed Intake Intake Visit Reasons: Excision of Cyst Lower Area of Chin Chief Complaint: excision left chin cyst Staffing And Scheduling Coordinator Required: No Is patient in pain?: No Allergies tetanus and diphtheria toxoids Allergy (Verified 08/11/18 07:52) Rash Aqrgvwr-Gqn-Vdv Reductase Inhibitor Adverse Reaction (Verified 08/11/18 07:52) Other Medications Aspirin E.C. [Ecotrin] 81 mg PO DAILY@0800 04/16/17 [History Confirmed 07/30/18] Gabapentin [Neurontin] 100 mg PO QHS 04/16/17 [History Confirmed 07/30/18] Glimepiride [Amaryl] 2 mg PO BREAKFAST 04/16/17 [History Confirmed 07/30/18] Hydrochlorothiazide [Hctz] 25 mg PO DAILY 04/16/17 [History Confirmed 07/30/18] Lisinopril [Zestril] 10 mg PO DAILY 04/16/17 [History Confirmed 07/30/18] Metformin HCl 1,000 mg PO BID 04/16/17 [History Confirmed 07/30/18] Ranitidine [Zantac] 150 mg PO QHS 04/16/17 [History Confirmed 07/30/18] Tamsulosin HCl [Flomax] 0.4 mg PO QHS 04/16/17 [History Confirmed 07/30/18] pioglitazone 15 mg tablet 15 mg PO DAILY 11/26/17 [History Confirmed 07/30/18] [facility] Medical History Sebaceous cyst (Acute) Amaurosis fugax of right eye (Acute) Carotid stenosis (Acute) Diabetes (Acute) GERD (gastroesophageal reflux disease) (Acute) Hemorrhoid (Acute) Hyperlipidemia (Acute) Osteoarthritis (Acute) Sciatica (Acute) HTN (hypertension) (Chronic) Surgical History History of right-sided carotid endarterectomy (Acute 11/2017) History of umbilical hernia (Acute) S/P colonoscopy (Acute) S/P inguinal hernia repair (Acute) S/P ventral herniorrhaphy (Acute) Family History Father Diabetes Heart disease Myocardial infarction Mother CAD (coronary artery disease) Social History Smoking Status: Former smoker HPI HPI HPI: JOAO BARNETT, is a 72 M who presents to the office today for Office Procedures Excision of Skin Provider Documentation Provider Documentation: Excision indurated skin lesion suspected sebaceous cyst left inferior chin 72-year-old gentleman. He has a nonspecific area of induration and slight erythema left inferior chin. It measures approximately 6 mm in diameter today. He was placed on the table. The neck was gently extended. The neck was prepped with Betadine. 1% lidocaine mixed 50-50 with 0.5% Marcaine was used as a local anesthetic. Total 10 cc was used. A transverse elliptical excision measuring 1.7 x 0.6 cm was used to excise the lesion. Skin flaps were raised. Subdermal edges were approximated with interrupted 4-0 chromic. Additional layered closure was performed with simple sutures of 4-0 nylon. Telfa tape dressing applied. The specimen was submitted in formalin. He was given activity wound care instructions. He is scheduled to return the office in 5 days time for wound inspection and anticipated suture removal. Progress and prognosis are felt to be good. Guillaume Hancock M.D., F.A.C.S. Face 15209 0.6-1.0cm Procedure Time Out Time Out Informed consent given: Yes Consent signed: Yes Time out checklist: patient, procedure, site marked/identified, positioning of patient, supplies available, allergies confirmed, team agrees on procedure Time out staff in room: Yes Time out verified: Yes Time out date: 08/11/18 Time out time: 07:53 Assessment AND Plan Problems 1. Sebaceous cyst L72.3 Plan Successful excision of left inferior chin skin lesion. Pathology is pending. Guillaume Hancock M.D., F.A.C.S. Orders Orders: Coding Level of Care Code Attention Furniture Sander Diagnoses Sebaceous cyst L72.3 Additional Codes Face - Benign Face: 06567 0.6-1.0cm (99164) Comment 19903 08/11/18 0907 <Electronically signed by Guillaume Hancock MD> Date Guillaume Hancock MD Cosigner Signature: Date (if applicable) CC: Damion Toscano MD CYST Observed: 08/11/2018 Status: F Source: [place] 9:00 AM [facility] REPOSITORY Patient: JOAO BARNETT : 1945 (72/M) Acct Num: [id number] Phys: CebuGuillaume hopper MD Unit Num: [id number] Loc: [facility] Specimen: [id number] Received: 08/11/18 - 1214 Spec Type: Cyst TISSUES 1 TISSUES: CYST COMMENT PASF and AFB stains with matched controls were used in the evaluation of this case. GROSS DESCRIPTION Received in fixative is one container labeled with the patient's name and designated chin. The specimen consists of a hastings-white skin ellipse measuring 1.5 x 0.5 cm and up to 0.4 cm in thickness. The specimen is inked, serially sectioned and submitted entirely in one cassette. / SJ:mayra 08/11/18 TC:3 CPT: 51990, 71693 x2 HEADER OPERATION: Excision chin cyst PRE-OP DIAGNOSIS: Chin cyst TISSUE SUBMITTED: Chin tissue MICROSCOPIC DESCRIPTION Slides are reviewed. MICROSCOPIC DIAGNOSIS Skin and soft tissue of chin, biopsy: Non-necrotizing granulomatous and chronic inflammation. Focal benign histiocytic reaction. No evidence of malignancy. Negative for acid-fast bacilli and fungal organisms. See comment. AM:mayra 08/12/18 Signed Alejo Joya DO 08/12/18 <signature on file> Performed By: #### PCYST #### [facility] [place] [facility] [address] [place], [place] [address] [place], [address] SURGERY VISIT REPORT Observed: 07/30/2018 Status: F Source: [place] 9:44 AM [facility] REPOSITORY [facility] [place] [facility] [address] [place] [address] OFFICE VISIT Date of Service: 07/30/18 MR#: [id number] Acct: [id number] Name: JOAO BARNETT Miesha Rep #: [id number] : 1945 Provider: Guillaume Hancock MD Age/Sex: 72/M Location: [facility] Status: Signed Intake Intake Visit Reasons: Lt Lower Chin Cyst Chief Complaint: left chin cyst Staffing And Scheduling Coordinator Required: No Is patient in pain?: No Allergies tetanus and diphtheria toxoids Allergy (Verified 07/30/18 09:22) Rash Rufetgr-Yfe-Ywd Reductase Inhibitor Adverse Reaction (Verified 07/30/18 09:22) Other Medications Aspirin E.C. [Ecotrin] 81 mg PO DAILY@0800 04/16/17 [History Confirmed 07/30/18] Gabapentin [Neurontin] 100 mg PO QHS 04/16/17 [History Confirmed 07/30/18] Glimepiride [Amaryl] 2 mg PO BREAKFAST 04/16/17 [History Confirmed 07/30/18] Hydrochlorothiazide [Hctz] 25 mg PO DAILY 04/16/17 [History Confirmed 07/30/18] Lisinopril [Zestril] 10 mg PO DAILY 04/16/17 [History Confirmed 07/30/18] Metformin HCl 1,000 mg PO BID 04/16/17 [History Confirmed 07/30/18] Ranitidine [Zantac] 150 mg PO QHS 04/16/17 [History Confirmed 07/30/18] Tamsulosin HCl [Flomax] 0.4 mg PO QHS 04/16/17 [History Confirmed 07/30/18] pioglitazone 15 mg tablet 15 mg PO DAILY 11/26/17 [History Confirmed 07/30/18] [facility] Medical History Amaurosis fugax of right eye (Acute) Carotid stenosis (Acute) Diabetes (Acute) GERD (gastroesophageal reflux disease) (Acute) Hemorrhoid (Acute) Hyperlipidemia (Acute) Osteoarthritis (Acute) Sciatica (Acute) HTN (hypertension) (Chronic) Surgical History History of right-sided carotid endarterectomy (Acute 11/2017) History of umbilical hernia (Acute) S/P colonoscopy (Acute) S/P inguinal hernia repair (Acute) S/P ventral herniorrhaphy (Acute) Family History Father Diabetes Heart disease Myocardial infarction Mother CAD (coronary artery disease) Social History Smoking Status: Former smoker HPI HPI HPI: JOAO BARNETT, is a 72 M who presents to the office today for surgical consultation regarding a left chin cyst. I have assisted the patient with previous carotid endarterectomy. He has no current central neurologic symptoms. He is due for his carotid duplex in November 2018 For 2 years he has had an intermittent irritated cyst left lower chin. He states that Dr. Braden Nixon had removed 2 similar cysts on the anterior neck remotely ROS General General: Yes fatigue; no weight change, appetite, colon cancer, breast cancer or weakness HEENT HEENT: No difficulty swallowing, eye injury, eye surgery, swollen glands or hoarseness Endo Endocrine: Yes diabetes mellitus; no thyroid disease, thyroid cancer, Hair loss, heat intolerance or cold intolerance Skin Skin: No rash or changing moles Breast Breast: No left breast lump, right breast lump, nipple discharge, breast pain, abnormal mammogram, abnormal US or breast enlargement Musc Musculoskeletal: Yes back problems; no arthritis, rheumatoid arthritis, gout or joint pain Cardio Cardiovascular: Yes high blood pressure; no pacemaker, heart disease, atrial fibrillation, heart attack, heart stent, palpitations, shortness of breat with exertion or chest pain Psych Psychiatric: No depression, anxiety or hearing voices Resp Respiratory: No shortness of breath, No sleep apnea, No cough, No COPD, No asthma, No emphysema, No wheezing Gastro Gastrointestinal: No abdominal pain, No nausea or vomiting, No diarrhea, No constipation, No blood in stool, Yes acid reflux, Yes hemorrhoids, No ulcers, No gallbladder problem, No black,tarry stools Geovanni Hematologic: Yes blood thinners, No blood disorders, No bleeding, No anemia, No blood clots Neuro Neurologic: No weakness Exam Neck Other: Inferior aspect of the left michael has a 9 mm diameter skin minimally erythematous subdermal nodule Chest Breast Palpation: No nipple discharge Assessment AND Plan Problems 1. Sebaceous cyst L72.3 Plan 72-year-old gentleman with a mildly irritated sebaceous cyst of the left inferior chin. He has had a previous right carotid endarterectomy. I do recommend for him an office excision of the cyst. He is aware of the technique, benefits, risks and alternatives. We will schedule and proceed at his discretion. Guillaume Hancock M.D., F.A.C.S. Orders Orders: Coding Level of Care Code Off vis,est,level 2 Diagnoses Sebaceous cyst L72.3 07/30/18 0944 <Electronically signed by Guillaume Hancock MD> Date Guillaume Floresigntian Signature: Date (if applicable) CC: CBC W/DIFF, AUTOMATED Collected: 07/27/2018 Status: F Source: [place] 8:20 AM [facility] REPOSITORY TYPE CODE TESTS RESULT OUT OF RANGE REFERENCE UNITS LAB L100.1000 4.4-11.0 K/mm3 Normal WBC 5.7 LAB L100.1200 4.6-6.2 M/mm3 Low RBC 4.14 LAB L100.1300 13.0-16.5 g/dl Low HGB 12.8 LAB L100.1400 40-54 % Low HCT 38.5 LAB L100.1500 80-94 fL Normal MCV 93.0 LAB L100.1600 27.0-32.0 pg Normal MCH 30.9 LAB L100.1700 32-36 g/gl Normal MCHC 33.2 LAB L100.1810 11.6-14.6 % Normal RDW CV 12.5 LAB L100.1820 35.1-43.9 fl Normal RDW SD 41.6 LAB L100.1900 150-450 K/mm3 Normal PLT 252 LAB L100.2000 6.2-12.0 fl Normal MPV 11.7 LAB L100.2100 47-70 % Normal NEUT% 53.6 LAB L100.2200 19-41 % Normal LY% 28.8 LAB L100.2300 0-10 % Normal [place]% 9.3 LAB L100.2400 0-5 % High EO% 6.3 LAB L100.2500 0-1 % High BASO% 1.8 LAB L100.2550 0.0-0.9 % Normal IM GRAN % 0.200 Result Comment: IG% - Immature Granulocytes (promyelocytes, myelocytes and metamyelocytes) > 1% indicates that a LEFT SHIFT is Present. LAB L100.2620 2.0-7.7 X10 3/uL Normal Absolute Neut 3.1 LAB L100.2720 0.83-4.51 X10 3/ul Normal Absolute Lymph 1.64 Performed By: #### L100.0100 #### [facility] [place] [facility] [address] [place], [place], [address] BASIC METABOLIC Collected: 07/27/2018 Status: F Source: [place] PROFILE (BMP) 8:20 AM [facility] REPOSITORY TYPE CODE TESTS RESULT OUT OF RANGE REFERENCE UNITS LAB L501.0100 74-106 mg/dL High GLU 169 Result Comment: Fasting Glucose result greater than or equal to 126 mg/dL suggests DIABETES MELLITUS per A.D.A. criteria. Please note revised GLUCOSE reference range effective 2017. LAB L501.1000 7-18 mg/dL Normal BUN 18 LAB L501.1100 0.70-1.30 mg/dL High CREAT,SERUM 1.48 Result Comment: The validity of the calculated GFR AND GFRAA in patients over 70 years has not been determined. Clinical correlation is essential. LAB L501.1110 >60 mL/min Low EST GFR 50 Result Comment: Non- GFR Calc LAB L501.1115 >60 mL/min Normal EST GFR - AA 60 Result Comment: GFR Calc LAB L501.1300 10-20 RATIO Normal BUN/CRE 12.2 LAB L501.2200 8.5-10.1 mg/dL CA Normal 8.7 LAB L501.5300 136-145 mmol/L NA Normal 139 LAB L501.5600 3.5-5.1 mmol/L K Normal 4.8 LAB L501.5900 98-107 mmol/L High CL 108 LAB L501.6100 21.0-32.0 mmol/L Low CO2 20.0 LAB L501.6200 5-15 Normal GAP 11 Performed By: #### L500.2500 #### [facility] [address] [place], [address] BASIC METABOLIC Collected: 04/06/2018 Status: F Source: [place] PROFILE (BMP) 2:08 PM [facility] REPOSITORY TYPE CODE TESTS RESULT OUT OF RANGE REFERENCE UNITS LAB L501.0100 74-106 mg/dL Low GLU 71 Result Comment: Please note revised GLUCOSE reference range effective 2017. LAB L501.1000 7-18 mg/dL Normal BUN 17 LAB L501.1100 0.70-1.30 mg/dL High CREAT,SERUM 1.43 Result Comment: The validity of the calculated GFR AND GFRAA in patients over 70 years has not been determined. Clinical correlation is essential. LAB L501.1110 >60 mL/min Low EST GFR 52 Result Comment: Non- GFR Calc LAB L501.1115 >60 mL/min Normal EST GFR - AA 63 Result Comment: GFR Calc LAB L501.1300 10-20 RATIO Normal BUN/CRE 11.9 LAB L501.2200 8.5-10.1 mg/dL CA Normal 9.2 LAB L501.5300 136-145 mmol/L NA Normal 143 LAB L501.5600 3.5-5.1 mmol/L K Normal 4.8 LAB L501.5900 98-107 mmol/L High CL 109 LAB L501.6100 21.0-32.0 mmol/L Normal CO2 23.0 LAB L501.6200 5-15 Normal GAP 11 Performed By: #### L500.2500 #### [facility] [address] [place], [address] BASIC METABOLIC Collected: 02/02/2018 Status: F Source: [place] PROFILE (BMP) 10:52 AM [facility] REPOSITORY TYPE CODE TESTS RESULT OUT OF RANGE REFERENCE UNITS LAB L501.0100 74-106 mg/dL High GLU 174 Result Comment: Fasting Glucose result greater than or equal to 126 mg/dL suggests DIABETES MELLITUS per A.D.A. criteria. Please note revised GLUCOSE reference range effective 2017. LAB L501.1000 7-18 mg/dL High BUN 24 LAB L501.1100 0.70-1.30 mg/dL High CREAT,SERUM 1.50 Result Comment: The validity of the calculated GFR AND GFRAA in patients over 70 years has not been determined. Clinical correlation is essential. LAB L501.1110 >60 mL/min Low EST GFR 49 Result Comment: Non- GFR Calc LAB L501.1115 >60 mL/min Low EST GFR - AA 59 Result Comment: GFR Calc LAB L501.1300 10-20 RATIO Normal BUN/CRE 16.0 LAB L501.2200 8.5-10.1 mg/dL CA Normal 8.9 LAB L501.5300 136-145 mmol/L NA Normal 140 LAB L501.5600 3.5-5.1 mmol/L K Normal 4.8 LAB L501.5900 98-107 mmol/L High CL 109 LAB L501.6100 21.0-32.0 mmol/L Normal CO2 22.0 LAB L501.6200 5-15 Normal GAP 9 Performed By: #### L500.2500 #### [facility] [address] [place], [address] DOWNTIME REPORT Observed: 01/13/2018 Status: F Source: [place] 11:58 AM [facility] Medical Records Department [address] [place] [address] Downtime Report MR#: [id number] Acct: [id number] Name: JOAO BARNETT Miesha Rep #: [id number] : 1945 72 From: Perez Mast PCP: Damion Toscano MD Status: REG CLI This patient was seen during an EMR downtime December 27, 2017 - January 03, 2018. This patient may have a combination of paper and electronic documentation or all paper documentation. All documentation is viewable within the e-chart portion of [employer] for each patient visit. CAROTID UNILATERAL Observed: 01/06/2018 Status: F Source: [place] 2:09 PM [facility] Cardiovascular Services [address] [place] [address] Carotid Unilateral 12/30/17 0845 MR#: [id number] Acct: [id number] Name: JOAO BARNETT Miesha Rep #: [id number] : 1945 72 From: Guillaume Hancock MD Attending Dr: Guillaume Hancock MD Status: REG CLI Ordering Dr: Guillaume Hancock MD Date: 12/30/17 Location: [facility] Sex: M C Admitted: Reason For Study: carotid stenosis Rt. Velocities/BP Prox CCA 54.5/19.9 cm/sec. Mid CCA 39.8/11.4 cm/sec. Dist CCA 50.3/19.6 cm/sec. Prox ICA 45.6/13.8 cm/sec. Mid ICA 76.2/21.2 cm/sec. Dist ICA 120/32.2 cm/sec. Rt. ICA/CCA = 3.0. Prox ECA 348/44.9 cm/sec. Rt. Vert. 62.5/18.1 cm/sec. Right Extracranial There is intimal thickening but no significant atherosclerotic plaque noted in the right common carotid artery. There is intimal thickening but no significant atherosclerotic plaque noted in the right internal carotid artery. There is heterogeneous, irregular atherosclerotic plaque noted in the right external carotid artery. Antegrade flow is noted in the right vertebral artery. Interpretation Summary Evidence of right carotid endarterectomy with no significant plague of the bulb or internal carotid. <50% stenosis right internal carotid Severe stenosis right external carotid Patent and antegrade right vertebral Ordering Physician: Guillaume Hancock Performed By: Talon Christie RVT 01/06/18 140 Date Guillaume Hancock MD CC: Guillaume Hancock MD; Damion Toscano Date Dictated: 12/30/17 0845 Date Transcribed: 01/06/181408 Education Program Manager: Signed SURGERY VISIT REPORT Observed: 12/16/2017 Status: F Source: [place] 1:15 PM [facility] REPOSITORY [facility] [address] [place] [address]. [address] [place] [address] OFFICE VISIT Date of Service: 12/16/17 MR#: [id number] Acct: [id number] Name: JOAO BARNETT Rep #: [id number] : 1945 Provider: Guillaume Hancock MD Age/Sex: 72/M Location: [facility] Status: Signed Intake Intake Visit Reasons: F/U ENDARTERCTOMY 11/30/2017 Chief Complaint: post right carotid Staffing And Scheduling Coordinator Required: No Is patient in pain?: No Allergies tetanus and diphtheria toxoids Allergy (Verified 12/16/17 13:00) Rash Tmmcarq-Eph-Uij Reductase Inhibitor Adverse Reaction (Verified 12/16/17 13:00) Other Medications Aspirin E.C. [Ecotrin] 81 mg PO DAILY@0800 04/16/17 [History Confirmed 12/16/17] Gabapentin [Neurontin] 100 mg PO QHS 04/16/17 [History Confirmed 12/16/17] Glimepiride [Amaryl] 2 mg PO BREAKFAST 04/16/17 [History Confirmed 12/16/17] Hydrochlorothiazide [Hctz] 25 mg PO DAILY 04/16/17 [History Confirmed 12/16/17] Lisinopril [Zestril] 10 mg PO DAILY 04/16/17 [History Confirmed 12/16/17] Metformin HCl 1,000 mg PO BID 04/16/17 [History Confirmed 12/16/17] Ranitidine [Zantac] 150 mg PO QHS 04/16/17 [History Confirmed 12/16/17] Tamsulosin HCl [Flomax] 0.4 mg PO QHS 04/16/17 [History Confirmed 12/16/17] pioglitazone 15 mg tablet 15 mg PO DAILY 11/26/17 [History Confirmed 12/16/17] PFSH Medical History Amaurosis fugax of right eye (Acute) Carotid stenosis (Acute) Diabetes (Acute) GERD (gastroesophageal reflux disease) (Acute) Hemorrhoid (Acute) Hyperlipidemia (Acute) Osteoarthritis (Acute) Sciatica (Acute) HTN (hypertension) (Chronic) Surgical History History of right-sided carotid endarterectomy (Acute 11/2017) History of umbilical hernia (Acute) S/P colonoscopy (Acute) S/P inguinal hernia repair (Acute) S/P ventral herniorrhaphy (Acute) Family History Father Diabetes Heart disease Myocardial infarction Mother CAD (coronary artery disease) Social History Smoking Status: Former smoker HPI HPI HPI: JOAO BARNETT, is a 72 M who presents to the office today for surgical follow-up status post urgent right carotid endarterectomy performed because of a high-grade stenosis and amaurosis fugax. I perform that for him on November 30, 2017. He was briefly on clopidogrel therapy. Currently he is on low-dose aspirin therapy. He has been intolerant to many statin medications. The final pathology was consistent with plaque. He had a high-grade stenosis at the time of operation. A patch angioplasty was performed. Postoperatively he has performed well. He has not had any visual changes on the right since his surgery and he was having multiple episodes per day preoperatively. Exam Neck Other: Nicely healing right carotid incision. Supple, nontender, 3+ pulse, no bruit Neuro Other: Patient does have numbness to touch right anterior neck Assessment AND Plan 1. Amaurosis fugax of right eye G45.3 Orders Orders: 2. Carotid stenosis, bilateral I65.23 Plan 72-year-old gentleman who had critical stenosis of his right carotid and amaurosis. He has approximately 50% stenosis of his left carotid. He has successfully undergone a right carotid endarterectomy with patch angioplasty. He will continue to follow-up with his primary care physician to maximize his medical management and lipid management. He will continue his low-dose aspirin. I recommend right carotid duplex imaging in approximately 1-2 weeks. I recommend bilateral carotid duplex imaging at 1 year and surgical follow-up. He has had an opportunity to ask and have questions answered. I anticipate that he has good solid progress and prognosis. Cc: Dr. Damion Hancock M.D., F.A.C.S. Coding Level of Care Code Global Post Op Diagnoses Amaurosis fugax of right eye G45.3 Carotid stenosis, bilateral I65.23 12/16/17 1315 <Electronically signed by Guillaume Hancock MD> Date Guillaume Hancock MD Cosigner Signature: Date (if applicable) CC: Damion Toscano BEDSIDE GLUCOSE Collected: 12/01/2017 Status: F Source: [place] 8:11 AM [facility] REPOSITORY TYPE CODE TESTS RESULT OUT OF REFERENCE UNITS RANGE LAB L501.080 70-110 mg/dL High BEDSIDE GLU 134 Result Comment: MANAGEMENT OF PATIENT CARE PER NURSING PROTOCOL Performed By: #### L501.080 #### [facility] Point of Care [address] [place] [address] OPERATIVE REPORT Observed: 12/01/2017 Status: F Source: [place] 6:10 AM [facility] REPOSITORY [facility] Medical Records Department [address] [place] [address] Operative Report 11/30/17 1048 MR#: [id number] Acct: [id number] Name: JOAO BARNETT Rep #: [id number] : 1945 72 From: Guillaume Hancock MD PCP: Damion Toscano Status: ADM IN Location: [place] [id number] 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 Right carotid endarterectomy with bovine patch angioplasty Description of Surgical Findings:: At the bedside timeout and informed consent was obtained. Phoenix test was performed of the left wrist. It was gently extended. Prepped with Betadine. Under ultrasound guidance 1% lidocaine was instilled. 1 cc was used. Under ultrasound guidance a 20-gauge Angiocath was advanced into the left radial artery. I then utilized Seldinger wire technique. I exchanged out for a 20-gauge aero kit Angiocath. Secured at the skin with interrupted 3-0 silk. It was connected to pressure tubing. OpSite dressing applied. Jessica wrap applied. He tolerated the procedure well. The hand was viable to completion without apparent complication. Good waveform was obtained. He was subsequently taken back to the operating room for planned definitive surgery. 12/01/17 0610 <Electronically signed by Guillaume Hancock MD> Date Guillaume Hancock MD CC: Guillaume Hancock MD; Damion Toscano Signed DISCHARGE INSTRUCTION Observed: 12/01/2017 Status: F Source: [place] 6:10 AM [facility] REPOSITORY [facility] Medical Records Department [address] [place] [address] Instructions for Home/Discharge Instructions 11/30/17 1142 MR#: [id number] Acct: [id number] Name: JOAO BARNETT Rep #: [id number] : 1945 72 From: Guillaume Hancock MD PCP: Damion Toscano Status: ADM IN Discharge Diet: Light diet - advance as tolerated - if you have questions about your diet instructions, please talk to you doctor. Discharge Activity: May Not Drive - for 1 week or while taking narcotic pain medicine., May Not Shower Lifting Restrictions: 10 pounds Call your doctor if your incision/area has: Continuous Slow Oozing, Sudden Increased Bleeding, Increased Pain/ Swelling, Increased Redness, Foul Smelling Discharge Call your doctor if you observe: Fever of 101 or Higher Suture Line Care: Avoid Pulling/Pushing, Avoid Pinching/Bending Additional Dressing/Incision Instructions:: Please keep your right neck incision clean and dry for 3 days. You may shower starting Wednesday. You may remove the Steri-Strips in 1 week Allergies/Adverse Reactions: Allergies tetanus and diphtheria toxoids Allergy (Verified 11/26/17 15:46) Rash Dwhuztw-Bnk-Dpy Reductase Inhibitor Adverse Reaction (Verified 11/26/17 15:46) Other Medications to take at Discharge Aspirin E.C. [Ecotrin] 81 mg PO DAILY@0800 04/16/17 Gabapentin [Neurontin] 100 mg PO QHS 04/16/17 Glimepiride [Amaryl] 2 mg PO BREAKFAST 04/16/17 Hydrochlorothiazide [Hctz] 25 mg PO DAILY 04/16/17 Lisinopril [Zestril] 10 mg PO DAILY 04/16/17 Metformin HCl 1,000 mg PO BID 04/16/17 Ranitidine [Zantac] 150 mg PO QHS 04/16/17 Tamsulosin HCl [Flomax] 0.4 mg PO QHS 04/16/17 pioglitazone 15 mg tablet 15 mg PO DAILY 11/26/17 Hydrocodone Bitart/Apap 5-325 [[place] 5MG-325MG] 1 tablet PO Q6H PRN PRN 4 Days #10 tablet 11/30/17 The following prescriptions were given: Hydrocodone Bitart/Apap 5-325 [[place] 5MG-325MG] 1 tablet PO Q6H PRN PRN 4 Days #10 tablet PRN Reason: Pain Primary Care Physician: Damion Toscano MD [Primary Care Provider] - Please Follow Up With: Guillaume Hancock MD - [phone] When: Call to make an appointment to be seen in about 10 days. 12/01/17 0610 <Electronically signed by Guillaume Hancock MD> Date Guillaume Hancock MD CC: Damion Toscano OPERATIVE REPORT Observed: 12/01/2017 Status: F Source: [place] 6:10 [facility] Medical Records Department [address] [place] [address] Operative Report 11/30/17 1408 MR#: [id number] Acct: [id number] Name: JOAO BARNETT Rep #: [id number] : 1945 72 From: Guillaume Hancock MD PCP: Damion Toscano Status: ADM IN Location: [address] 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 Right carotid endarterectomy with bovine patch angioplasty Description of Surgical Findings:: At the bedside timeout and informed consent was obtained. Phoenix test was performed of the left wrist. It was gently extended. Prepped with Betadine. Under ultrasound guidance 1% lidocaine was instilled. 1 cc was used. Under ultrasound guidance a 20-gauge Angiocath was advanced into the left radial artery. I then utilized Seldinger wire technique. I exchanged out for a 20-gauge aero kit Angiocath. Secured at the skin with interrupted 3-0 silk. It was connected to pressure tubing. OpSite dressing applied. Jessica wrap applied. He tolerated the procedure well. The hand was viable to completion without apparent complication. Good waveform was obtained. He was subsequently taken back to the operating room for planned definitive surgery. Patient subsequently underwent general endotracheal intubation and anesthesia. The right neck was sterilely prepped draped. Ancef 2 g given intravenous preoperatively. An oblique incision was made along the anterior border the sternocleidomastoid. Sharp dissection was carried down through the substance tissue. The platysma was incised. The crossing facial vein was identified and it was ligated with 3-0 Vicryl. Tedious dissection was performed deeply and then it became apparent that the patient had a very low-lying carotid bifurcation. The incision had to be lengthened inferiorly. Finally the carotid bulb could be identified and sharp and blunt dissection was then performed proximally. Circumferential control was obtained a Dacron tape and a Denise fashion. At this point the patient received 10 units of heparin. Further dissection was performed identifying the internal carotid it appeared to have plaque extending for quite a distance I got to an area that appeared to be clear and then placed a Dacron tape and Dangelo tourniquet. Circumferential trial was obtained of the external carotid. The patient had well adequate circling time of the heparin. Peripheral vascular clamps were placed on the internal and external carotid and a Walker clamp was placed on the common carotid and 11 blade was made used to make an arteriotomy but I could not extended through the hard plaque so that I had to readjust and use a 15 blade to incise directly down upon the plaque I used large Denise scissors to create a opening. The vessel had to be irrigated I then placed a #8 USCI style shunt cephalad and proximally. Time for shunt placement was 4 minutes and 27 seconds. Then performed a endarterectomy at the layer of the external elastic lamina. The plaque was sharply transected proximally and then it was nicely feathered at the internal carotid and inversion enterectomy was performed of the external carotid. Further debris was carefully removed. I then utilized a Vascu-Guard graft reference number [id number] and . PN #[id number]. Lot number [id number]. I shaped to form and performed a patch angioplasty with a running 6-0 Prolene. Prior to completion the shunt was removed there was good retrograde flow from the internal carotid external carotid common carotid. The angioplasty was completed initial flow was instituted from the external carotid common carotid find the internal carotid. Time for shunt removal was 2 minutes and 25's. A repair suture of 7-0 Prolene was used to obtain hemostasis. The patient then received in aliquots a total 30 mg of protamine his reversal. I used Surgicel to assist with hemostasis and I removed the Surgicel. The platysma was approximated running 3-0 Vicryl. The skin edges approximately running septic or 5-0 Vicryl. Steri-Strips Telfa tape dressings applied. Sponge instrument and needle counts were reported to the surgeon to be correct. Blood loss was approximately 300 cc. He tolerated the procedure well and was grossly checked neurologically. He was taken to the recovery room in satisfactory condition Specimens plaque. Drains none. Blood loss 300. Guillaume Hancock M.D., F.A.C.S. Type of Anesthesia:: General Anesthesiologist: Yosef Tijerina 12/01/17 0610 <Electronically signed by Guillaume Hancock MD> Date Guillaume Hancock MD CC: Guillaume Hancock MD; Damion Toscano Signed BEDSIDE GLUCOSE Collected: 11/30/2017 Status: F Source: [place] 7:14 PM [facility] REPOSITORY TYPE CODE TESTS RESULT OUT OF RANGE REFERENCE UNITS LAB L501.080 70-110 mg/dL Normal BEDSIDE GLU 100 Result Comment: MANAGEMENT OF PATIENT CARE PER NURSING PROTOCOL Performed By: #### L501.080 #### [facility] Point [place] [address] [address] PLAQUE Observed: 11/30/2017 Status: F Source: [place] 12:00 PM [facility] REPOSITORY Patient: JOAO BARNETT : 1945 (72/M) Acct Num: [id number] Phys: Guillaume Hancock MD Unit Num: [id number] Loc: MS2 TP530-7 Specimen: [id number] Received: 12/01/17 - 1009 Spec Type: PLAQUE TISSUES TISSUES: PLAQUE GROSS DESCRIPTION Received in fixative is one container labeled with the patient's name and designated right carotid plaque. The specimen consists of a previously opened Y-shaped piece of hastings-yellow indurated tissue measuring 2.5 cm in length and up to 1 cm in diameter. The specimen cuts with a gritty sensation. The entire specimen is submitted in one cassette after decalcification. / SJ:mayra 12/01/17 TC:5 CPT: 03968, 73361 HEADER OPERATION: Right carotid endarterectomy with patch angioplasty PRE-OP DIAGNOSIS: Right carotid stenosis TISSUE SUBMITTED: Right carotid plaque MICROSCOPIC DIAGNOSIS Right carotid plaque, endarterectomy: Atherosclerotic tissue with focal calcification (plaque). SJ:mayra 12/07/17 Signed Hugo Hatch 12/07/17 <signature on file> Performed By: #### PPLAQ #### [facility] [address] [place] [address], [address] BEDSIDE GLUCOSE Collected: 11/30/2017 Status: F Source: [place] 10:23 AM [facility] REPOSITORY TYPE CODE TESTS RESULT OUT OF REFERENCE UNITS RANGE LAB L501.080 70-110 mg/dL High BEDSIDE GLU 138 Result Comment: MANAGEMENT OF PATIENT CARE PER NURSING PROTOCOL Performed By: #### L501.080 #### [facility] Point of Care [address] [place] [address] 12 LEAD ELECTROCARDIOGRAM Observed: 11/29/2017 Status: F Source: [place] 1:43 PM [facility] REPOSITORY [facility] Cardiovascular Services [address] [place] [address] 12 Lead EKG 11/26/17 1402 MR#: [id number] Acct: [id number] Name: JOAO BARNETT Rep #: [id number] : 1945 72 From: Rohit Huertas MD Attending Dr: Guillaume Hancock MD Status: PRE IN Ordering Dr: Guillaume Hancock MD Date: 11/26/17 Location: [facility] Sex: M C Admitted: Test Reason : PRE-OP Blood Pressure : / mmHG Vent. Rate : 056 BPM Atrial Rate : 056 BPM P-R Int : 118 ms QRS Dur : 098 ms QT Int : 408 ms P-R-T Axes : 017 -19 017 degrees QTc Int : 393 ms Sinus bradycardia Poor R wave progression Confirmed by KIYA SABA, ROHIT ([id number]), content editor KALEIGH MAST ([id number]) on 11/29/2017 1:43:45 PM Referred By: Guillaume Hancock Confirmed By:ROHIT HUERTAS MD 11/29/17 1343 Date Rohit Huertas MD CC: Guillaume Hancock MD; Damion Toscano Signed ECHO, COMPLETE W/ Observed: 11/26/2017 Status: F Source: [place] CONTRAST 2:50 PM [facility] REPOSITORY [facility] Cardiovascular Services [address] [place] [address] Echo Complete W/ Contrast 11/26/17 1307 MR#: [id number] Acct: [id number] Name: JOAO BARNETT Rep #: [id number] : 1945 72 From: Rohit Huertas MD Attending Dr: Damion Toscano Status: REG CLI Ordering Dr: Damion Toscano MD Date: 11/26/17 Location: [facility] Sex: M C Admitted: Reason For Study: MURMUR Procedure This was a 2D Doppler, Color Flow transthoracic echocardiogram. The exam was of fair technical quality due to body habitus. The study was technically difficult. Contrast injection was performed. Exam performed in department. Left Ventricle Normal LV size. Left ventricular systolic function is normal. The estimated ejection fraction is 65 %. Unable to assess diastolic dysfunction due to arrhythmia. No regional wall motion abnormalities noted. Right Ventricle Normal RV size. Normal systolic function. Atria Normal left atrium. Normal right atrium. No doppler evidence for ASD. Mitral Valve There is no mitral annular calcification. Normal mitral valve. Trivial mitral valve insufficiency. Tricuspid Valve Normal tricuspid valve. Trivial tricuspid valve insufficiency. Aortic Valve Trisinus/trileaflet aortic valve. Mild focal aortic valve calcification. Pulmonic Valve The pulmonic valve is not well visualized. Trivial pulmonic valve insufficiency. Great Vessels Normal sized aortic root. Pericardium/Pleural No pericardial effusion. Medication 22 gauge I.V. with prn adaptor inserted into left arm. Diluted definity 2.0ml given slow IV push to enhance endocardial definition. MMode/2D Measurements AND Calculations LVIDd: 4.8 cm IVSd: 0.84 cm Ao root diam: 3.0 cm LVIDs: 3.5 cm LVPWd: 1.0 cm LA dimension: 3.8 cm RVDd: 3.3 cm FS: 28.1 % LAV(MOD-bp): 57.0 ml LA A4 area: 19.2 cm2 RA A4 area: 14.1 cm2 LAV(MOD-bp) Indexed: 30.1 ml/m2 LAV(MOD-sp2): 57.6 ml LAV(MOD-sp4): 57.5 ml Doppler Measurements AND Calculations MV E max ori: 110.0 cm/sec Lat Peak E' Ori: 11.2 cm/sec Med Peak E' Ori: 9.2 cm/sec MV A max ori: 92.4 cm/sec E/E' lat: 9.9 E/E' med: 12.0 MV E/A: 1.2 Ao V2 max: 186.0 cm/sec LV V1 max: 84.5 cm/sec PA V2 max: 124.6 cm/sec Ao max P.8 mmHg LV V1 max P.9 mmHg Interpretation Summary The study was technically difficult. Contrast injection was performed. Left ventricular systolic function is normal. The estimated ejection fraction is 65 %. Trivial mitral valve insufficiency. Trivial tricuspid valve insufficiency. Mild focal aortic valve calcification. Trivial pulmonic valve insufficiency. Unable to assess diastolic dysfunction due to arrhythmia. Ordering Physician: Damion Toscano Referring Physician: Guillaume Hancock MD Performed By: Aliyah Villela, TAQUERIA, RVT 11/26/17 1449 Date Rohit Huertas MD CC: Damion Toscano Date Dictated: 11/26/17 1307 Date Transcribed: 11/26/17 1449 Education Program Manager: Signed BASIC METABOLIC Collected: 11/26/2017 Status: F Source: [place] PROFILE (BMP) 2:15 PM [facility] REPOSITORY TYPE CODE TESTS RESULT OUT OF RANGE REFERENCE UNITS LAB L501.0100 74-106 mg/dL Low GLU 60 Result Comment: Please note revised GLUCOSE reference range effective 2017. LAB L501.1000 7-18 mg/dL High BUN 25 LAB L501.1100 0.70-1.30 mg/dL High CREAT,SERUM 1.44 Result Comment: The validity of the calculated GFR AND GFRAA in patients over 70 years has not been determined. Clinical correlation is essential. LAB L501.1110 >60 mL/min Low EST GFR 51 Result Comment: Non- GFR Calc LAB L501.1115 >60 mL/min Normal EST GFR - AA 62 Result Comment: GFR Calc LAB L501.1300 10-20 RATIO Normal BUN/CRE 17.4 LAB L501.2200 8.5-10.1 mg/dL CA Normal 9.3 LAB L501.5300 136-145 mmol/L NA Normal 140 LAB L501.5600 3.5-5.1 mmol/L K Normal 4.8 LAB L501.5900 98-107 mmol/L High CL 109 LAB L501.6100 21.0-32.0 mmol/L Normal CO2 24.0 LAB L501.6200 5-15 Normal GAP 7 Performed By: #### L500.2500 #### [facility] [address] [facility] [place], [place], [address] CBC-COMPLETE BLOOD CNT Collected: 11/26/2017 Status: F Source: [place] NO DIFF 2:15 PM [facility] REPOSITORY TYPE CODE TESTS RESULT OUT OF RANGE REFERENCE UNITS LAB L100.1000 4.4-11.0 K/mm3 Normal WBC 8.9 LAB L100.1200 4.6-6.2 M/mm3 Low RBC 4.36 LAB L100.1300 13.0-16.5 g/dl Normal HGB 13.5 LAB L100.1400 40-54 % Normal HCT 40.6 LAB L100.1500 80-94 fL Normal MCV 93.1 LAB L100.1600 27.0-32.0 pg Normal MCH 31.0 LAB L100.1700 32-36 g/gl Normal MCHC 33.3 LAB L100.1810 11.6-14.6 % Normal RDW CV 12.8 LAB L100.1820 35.1-43.9 fl Normal RDW SD 42.7 LAB L100.1900 150-450 K/mm3 Normal PLT 294 LAB L100.2000 6.2-12.0 fl High MPV 12.1 Performed By: #### L100.0500 #### [facility] [address] [facility] [place], [place], [address] HEMOGLOBIN A1C Collected: 11/26/2017 Status: F Source: [place] 2:15 PM [facility] REPOSITORY Order Comment: PLEASE ADD A1C TO BLOOD FROM 11-26-17 TYPE CODE TESTS RESULT OUT OF RANGE REFERENCE UNITS LAB L501.9985 4.2-6.3 % Normal HGB A1C 6.1 Performed By: #### L501.9985 #### [facility] [address] [place], [address] SURGERY VISIT REPORT Observed: 11/26/2017 Status: F Source: [place] 12:34 PM [facility] REPOSITORY [facility] [address] [place] [address] OFFICE VISIT Date of Service: 11/26/17 MR#: [id number] Acct: [id number] Name: JOAO BARNETT Rep #: [id number] : 1945 Provider: Guillaume Hancock MD Age/Sex: 72/M Location: [facility] Status: Signed Intake Vital Signs11/26/17 Height 5 ft 6 in 11/26/17 Weight: 180 lb 5 oz 11/26/17 Body Mass Index (BMI) 29.0 11/26/17 Blood Pressure 143/72 Intake Visit Reasons: Carotid Stenosis Chief Complaint: carotid stenosis Staffing And Scheduling Coordinator Required: No Is patient in pain?: No Allergies tetanus and diphtheria toxoids Allergy (Verified 11/26/17 12:08) Rash Tmzxuat-Xet-Myy Reductase Inhibitor Adverse Reaction (Verified 11/26/17 12:08) Other Medications Aspirin E.C. [Ecotrin] 81 mg PO DAILY@0800 04/16/17 [History Confirmed 11/26/17] Fluticasone 0.05% [Flonase Nasal Jasper] 1 spray NASAL DAILY PRN 04/16/17 [History Confirmed 11/26/17] Gabapentin [Neurontin] 100 mg PO QHS 04/16/17 [History Confirmed 11/26/17] Glimepiride [Amaryl] 2 mg PO BREAKFAST 04/16/17 [History Confirmed 11/26/17] Hydrochlorothiazide [Hctz] 25 mg PO DAILY 04/16/17 [History Confirmed 11/26/17] Lisinopril [Zestril] 10 mg PO DAILY 04/16/17 [History Confirmed 11/26/17] Metformin HCl 1,000 mg PO BID 04/16/17 [History Confirmed 11/26/17] Ranitidine [Zantac] 150 mg PO QHS 04/16/17 [History Confirmed 11/26/17] Tamsulosin HCl [Flomax] 0.4 mg PO QHS 04/16/17 [History Confirmed 11/26/17] clopidogrel 75 mg tablet 75 mg PO QDAY #30 tab 11/26/17 [Rx Confirmed 11/26/17] pioglitazone 15 mg tablet 15 mg PO DAILY 11/26/17 [History Confirmed 11/26/17] PFSH Medical History Amaurosis fugax of right eye (Acute) Carotid stenosis (Acute) Diabetes (Acute) GERD (gastroesophageal reflux disease) (Acute) Hemorrhoid (Acute) Hyperlipidemia (Acute) Osteoarthritis (Acute) Sciatica (Acute) HTN (hypertension) (Chronic) Surgical History History of umbilical hernia (Acute) S/P colonoscopy (Acute) S/P inguinal hernia repair (Acute) S/P ventral herniorrhaphy (Acute) Family History Father Diabetes Heart disease Myocardial infarction Mother CAD (coronary artery disease) Social History Smoking Status: Former smoker HPI HPI HPI: JOAO BARNETT, is a 72 M who presents to the office today for urgent referral because of amaurosis fugax right eye. The patient actually admits that for the past 2 weeks perhaps 1-2 times per day he has been having repetitive episodes of intermittent blurring of his right eye vision. He notes June 25, 2017 he fell from the roof breaking some ribs and causing contusions. He does not remember whether he fainted prior to the fall. Because of the amaurosis he had carotid duplex imaging performed November 25, 2017 at the [facility]. This demonstrates peak systolic velocity within the right proximal internal carotid at 487 cm/s with an end-diastolic velocity of 236 cm/s. There was irregular plaque within that carotid artery as well. This was felt to be consistent with greater than 80% stenosis. On the left there is irregular plaque with 50-69% stenosis but likely closer to the 50% range. Bilateral vertebrals are patent and antegrade. The patient does have hyperlipidemia and is intolerant to statin medications. He is diabetic on multiple oral medications. He has chronic renal insufficiency. His only current anticoagulant is a low-dose aspirin. ROS General General: Yes fatigue; no weight change, appetite, colon cancer, breast cancer or weakness HEENT HEENT: No difficulty swallowing, eye injury, eye surgery, swollen glands or hoarseness Endo Endocrine: Yes diabetes mellitus; no thyroid disease, thyroid cancer, Hair loss, heat intolerance or cold intolerance Skin Skin: No rash or changing moles Breast Breast: No left breast lump, right breast lump, nipple discharge, breast pain, abnormal mammogram, abnormal US or breast enlargement Musc Musculoskeletal: Yes back problems; no arthritis, rheumatoid arthritis, gout or joint pain Cardio Cardiovascular: Yes high blood pressure; no pacemaker, heart disease, atrial fibrillation, heart attack, heart stent, palpitations, shortness of breat with exertion or chest pain Psych Psychiatric: No depression, anxiety or hearing voices Resp Respiratory: No shortness of breath, No sleep apnea, No cough, No COPD, No asthma, No emphysema, No wheezing Gastro Gastrointestinal: No abdominal pain, No nausea or vomiting, No diarrhea, No constipation, No blood in stool, Yes acid reflux, Yes hemorrhoids, No ulcers, No gallbladder problem, No black,tarry stools Geovanni Hematologic: Yes blood thinners, No blood disorders, No bleeding, No anemia, No blood clots Neuro Neurologic: No system reviewed and no additional complaints, except as docu, No as per HPI, No abnormal walking, No abnormal hearing, No abnormal movements, No abnormal speech, No behavioral changes, No burning sensations, No confusion, No seizure-like activity, No unsteadiness, No dizziness, No localized weakness, No frequent falls, No headache(s), No lack of coordination, No loss of vision, No memory loss, Yes numbness, Yes other visual disturbances, No radiating pain, No restless legs, No sensory deficit, No fainting, No tingling, No tremor(s), No weakness, No other Exam Const General: cooperative, healthy appearing, comfortable, no acute distress, well developed Nutritional Appearance: average body habitus Orientation: alert, awake, oriented x3 HENMT Head: normal to inspection Neck Neck: normal visual inspection Chest Chest palpation AND inspection: normal inspection of the chest Breast Palpation: No nipple discharge Resp Effort AND Inspection: normal respiratory effort Auscultation: clear to auscultation bilaterally Cardio Rate: regular rate Rhythm: regular rhythm Heart Sounds: other (Soft 1/6 cardiac murmur) Bruits: other Pulses: brachial pulses present, radial pulses present, femoral pulses present Other: Carotid is 3+ on the left. No bruit Right carotid is diminished to palpation GI Palpation: soft, no hepatosplenomegaly Musc Cervical Spine: normal cervical lordosis Skin General: no rashes or lesions noted Neuro Cranial Nerves: CN's II-XI intact bilaterally Extrem General: no clubbing, cyanosis or edema Psych Affect: normal affect Assessment AND Plan Problems 1. Amaurosis fugax of right eye G45.3 2. Carotid stenosis, right I65.21 Plan Patient with right eye amaurosis fugax. He has high-grade critical stenosis of the right internal carotid. There is extensive plaque present. I believe that this is the etiologic source to his embolization. He is on a low-dose aspirin. He is intolerant to statin medications. He is diabetic with a mild degree of renal insufficiency. I am recommending to him a right carotid endarterectomy with bovine patch angioplasty and I have discussed the technique, benefits, risks, alternatives. He has had an opportunity to ask and have questions answered. Because of the patient's cardiac murmur he was to have a echocardiogram December 13. We have been able to expedite that to today. We will initiate him on clopidogrel 300 mg orally today and then 75 mg daily in addition to his aspirin up to the day prior to surgery. He has had an opportunity to ask and have questions answered. We will schedule and expedite his surgery at the earliest OR timing feasible. I appreciate the opportunity of assisting with surgical care Cc: Dr. Damion Hancock M.D., F.A.C.S. Medications New: Coding Level of Care Code Off vis,new,level 4 Diagnoses Amaurosis fugax of right eye G45.3 Carotid stenosis, right I65.21 11/26/17 1234 <Electronically signed by Guillaume Hancock MD> Date Guillaume Hancock MD Cosigner Signature: Date (if applicable) CC: Damion Toscano CBC W/DIFF, AUTOMATED Collected: 08/24/2017 Status: F Source: [place] 9:39 AM [facility] REPOSITORY TYPE CODE TESTS RESULT OUT OF RANGE REFERENCE UNITS LAB L100.1000 4.4-11.0 K/mm3 Normal WBC 5.7 LAB L100.1200 4.6-6.2 M/mm3 Low RBC 4.30 LAB L100.1300 13.0-16.5 g/dl Normal HGB 13.2 LAB L100.1400 40-54 % Low HCT 39.3 LAB L100.1500 80-94 fL Normal MCV 91.4 LAB L100.1600 27.0-32.0 pg Normal MCH 30.7 LAB L100.1700 32-36 g/gl Normal MCHC 33.6 LAB L100.1810 11.6-14.6 % Normal RDW CV 12.6 LAB L100.1820 35.1-43.9 fl Normal RDW SD 41.1 LAB L100.1900 150-450 K/mm3 Normal PLT 342 LAB L100.2000 6.2-12.0 fl Normal MPV 10.7 LAB L100.2100 47-70 % Normal NEUT% 67.4 LAB L100.2200 19-41 % Normal LY% 20.5 LAB L100.2300 0-10 % Normal MONO% 7.2 LAB L100.2400 0-5 % Normal EO% 3.5 LAB L100.2500 0-1 % High BASO% 1.4 LAB L100.2550 0.0-0.9 % Normal IM GRAN % 0.000 Result Comment: IG% - Immature Granulocytes (promyelocytes, myelocytes and metamyelocytes) > 1% indicates that a LEFT SHIFT is Present. LAB L100.2620 2.0-7.7 X10 3/uL Normal Absolute Neut 3.9 LAB L100.2720 0.83-4.51 X10 3/ul Normal Absolute Lymph 1.17 Performed By: #### L100.0100 #### [facility] [address] [place], [address] HEMOGLOBIN A1C Collected: 08/24/2017 Status: F Source: [place] 9:39 AM [facility] REPOSITORY TYPE CODE TESTS RESULT OUT OF RANGE REFERENCE UNITS LAB L501.9985 4.2-6.3 % Normal HGB A1C 5.8 Performed By: #### L501.9985 #### [facility] [address] [place], [address] COMPREHENSIVE METABOLIC Collected: 08/24/2017 Status: F Source: [place] 9:39 AM [facility] REPOSITORY TYPE CODE TESTS RESULT OUT OF RANGE REFERENCE UNITS LAB L501.0100 70-110 mg/dL High GLU 152 Result Comment: Fasting Glucose result greater than or equal to 126 mg/dL suggests DIABETES MELLITUS per A.D.A. criteria. LAB L501.1000 7-18 mg/dL High BUN 24 LAB L501.1100 0.70-1.30 mg/dL High CREAT,SERUM 1.42 Result Comment: The validity of the calculated GFR AND GFRAA in patients over 70 years has not been determined. Clinical correlation is essential. LAB L501.1110 >60 mL/min Low EST GFR 52 Result Comment: Non- GFR Calc LAB L501.1115 >60 mL/min Normal EST GFR - AA 63 Result Comment: GFR Calc LAB L501.1300 10-20 RATIO Normal BUN/CRE 16.9 LAB L501.1500 6.4-8.2 g/dL T Normal PROT 7.4 LAB L501.1800 3.2-5.0 g/dL Normal ALB 3.7 LAB L501.1950 2.2-4.2 g/dL Normal GLOB 3.7 LAB L501.2000 0.9-2.4 RATIO Normal A/G 1.0 LAB L501.2200 8.5-10.1 mg/dL CA Normal 9.3 LAB L501.4100 15-37 U/L Normal AST 16 LAB L501.4305 45-117 U/L Normal ALK P 64 LAB L501.4405 16-61 U/L Normal ALT 25 Result Comment: Please note revised ALT reference range effective 2017. LAB L501.4600 0.20-1.00 mg/dL Normal T BILI 0.50 LAB L501.5300 136-145 mmol/L Normal NA 140 LAB L501.5600 3.5-5.1 mmol/L Normal K 4.5 LAB L501.5900 98-107 mmol/L High CL 108 LAB L501.6100 21.0-32.0 mmol/L Normal CO2 23.0 LAB L501.6200 5-15 Normal GAP 9 Performed By: #### L500.4050, L500.4100 #### [facility] [address] [place], [place], [address] LIPID PROFILE Collected: 08/24/2017 Status: F Source: [place] 9:39 AM [facility] REPOSITORY TYPE CODE TESTS RESULT OUT OF RANGE REFERENCE UNITS LAB L501.4900 200 mg/dL Normal CHOL 158 Result Comment: <200 mg/dL Desirable 200-240 mg/dL Borderline >240 mg/dL High Risk LAB L501.5000 mg/dL Normal TRIG 127 Result Comment: The drugs N-Acetylcysteine and Metamizole may falsely depress this assay. Serum Triglycerides Reference Interval Normal <150 mg/dL Borderline high 150 - 199 mg/dL High 200 - 499 mg/dL Very High > or = 500 mg/dL LAB L501.6400 mg/dL Normal HDL 47 Result Comment: The drugs N-Acetylcysteine and Metamizole may falsely depress this assay. Reference Range HDL <40 mg/dL Low HDL Cholesterol HDL >or= 60 mg/dL High HDL Cholesterol LAB L501.6500 0-130 mg/dL Normal LDL 86 LAB L501.6600 5-40 mg/dL Normal VLDL 25 Performed By: #### L500.4050, L500.4100 #### [facility] [address] [place], [address] VITAMIN B12 Collected: 08/24/2017 Status: F Source: [place] 9:39 AM [facility] REPOSITORY TYPE CODE TESTS RESULT OUT OF RANGE REFERENCE UNITS LAB L503.0105 211-911 pg/mL Normal Vitamin B12 352 Performed By: #### L503.0105 #### [facility] [address] [place], [place], [address] ALLERGIES ALLERGIES DATE TYPE / CODE NAME / CODE REACTION SEVERITY SOURCE 08/15/2018 Drug Teaetjf-Odq-Bzp Other Unknown [place] Allergy/416 [facility] 734308(SNOM Inhibitor/[id number] Hospital ED CT) 095(RXNORM) Repository 08/15/2018 Drug tetanus and Rash Unknown [place] Allergy/416 diphtheria Community 470642(SNOM toxoids/[id number] Hospital ED CT) 4(RXNORM) Repository ENCOUNTERS ENCOUNTERS ADMIT/DISCHARGE ACCOUNT ADMITTING ENCOUNTER LOCATION SOURCE NUMBER CLASS 08/15/2018/ [id number] Ambulatory BMSBuilding:B [place] 9 5 [facility] Repository 08/11/2018 [id number] Ambulatory [place] 4 [facility] ing:LABSPEC Repository 08/11/2018/ [id number] Ambulatory BMSBuilding:B [place] 9 0 [facility] Repository 07/30/2018/ [id number] Ambulatory BMSBuilding:B [place] 9 3 [facility] Repository 07/27/2018 [id number] Ambulatory [place] 8 [facility] ing:BFHLAB Repository 04/06/2018 [id number] Ambulatory [place] 3 [facility] ing:BFHLAB Repository 02/02/2018 [id number] Ambulatory [place] 5 [facility] ing:BFHLAB Repository 12/30/2017 [id number] [place]ulatory [place] 5 [facility] ing:CVS Repository 12/30/2017 [id number] Ambulatory BMSBuilding:B [place] 5 MS.[facility] Repository 12/16/2017/ [id number] Ambulatory BMSBuilding:B [place] 8 8 [facility] Repository 11/30/2017/ [id number] Guillaume Hancock [place]patient [place] 8 8 Encounter [facility] ing:ZU8Obup: Repository SH022Ptw: 1 11/30/2017/ [id number] Ambulatory BMSBuilding:B [place] 8 6 MS.[facility] Repository 11/27/2017 [id number] Ambulatory BMSBuilding:B [place] 1 [facility] Repository 11/26/2017 [id number] Ambulatory [place] 6 [facility] ing:CVS Repository 11/26/2017 [id number] Ambulatory BMSBuilding:W [place] 9 [facility] Repository 11/26/2017/ [id number] Ambulatory BMSBuilding:B [place] [address] [facility] Repository 11/26/2017/ [id number] Ambulatory BMSBuilding:W [place] 8 7 [facility] Repository 11/25/2017 [id number] Ambulatory [place] 5 [facility] ing:CVS Repository 11/25/2017 [id number] Ambulatory BMSBuilding:B [place] 4 MS.[facility] Repository 08/24/2017 [id number] Ambulatory [place] 7 [facility] ing:LAB Repository PAYERS PAYERS ENCOUNTER GUARANTOR PAYER SUBSCRIBER SOURCE 08/15/2018 JOAO P Primary JOAO P [place] [id number] CYN Insurance:MEDICARE OGDENDOB: [facility] [id number] Hospital [address]Otx: (330) Number: Repository [phone] ) [id number] Date:2018-08-11 08/15/2018 Secondary JOAO P [place] Insurance:MEDICAL OGDENDOB: [facility] [id number] Hospital Number: Repository [id number] Date:[id number] [address]FU: 08/15/2018 Tertiary NOT GIVENUNK [place] Insurance:SELF PAY [facility] Number: Effective Repository Date:2018-08-15 08/11/2018 JOAO P Primary JOAO P [place] [id number] [place] Insurance:MEDICARE OGDENDOB: [facility] [id number] Hospital [address]Dtl: (330) Number: Repository [phone] [id number] Date:2018-08-11 08/11/2018 Secondary JOAO P [place] Insurance:MEDICAL OGDENDOB: [facility] [id number] Hospital Number: Repository [id number] Date:9021-92-45VB[address] [address]HR: 08/11/2018 Tertiary NOT GIVENUNK [place] Insurance:SELF PAY [facility] Hospital Number: Effective Repository Date:2018-08-11 08/11/2018 JOAO P Primary JOAO P [place] [id number] CYN Insurance:MEDICARE OGDENDOB: [place] PART A [facility] [id number] Hospital [address]Ypl: (330) Number: Repository [phone] () [id number] Date:2018-07-30 08/11/2018 Secondary JOAO P [place] Insurance:MEDICAL OGDENDOB: [facility] [id number] Hospital Number: Repository [id number] Date:6910-19-83GT[address] [address]YX: 08/11/2018 Tertiary NOT GIVENUNK [place] Insurance:SELF PAY [facility] Hospital Number: Effective Repository Date:2018-07-30 07/30/2018 JOAO P Primary JOAO P [place] [id number] [place] Insurance:MEDICARE OGDENDOB: [place] PART [place] [facility] [id number] Hospital [address]Jcr: (330) Number: Repository [phone] () [id number] Date:2018-07-28 07/30/2018 Secondary JOAO P [place] Insurance:MEDICAL OGDENDOB: [facility] [id number] Hospital Number: Repository [id number] Date:2684-17-22TB[address] [address]CC: 07/30/2018 Tertiary NOT GIVENUNK [place] Insurance:SELF PAY [facility] Hospital Number: Effective Repository Date:2018-07-29 07/27/2018 JOAO P Primary JOAO P [place] [id number] CYN Insurance:MEDICARE OGDENDOB: [place] [facility] [id number] Hospital [address]Som: [phone]) Number: Repository [phone] () [id number] Date:2018-07-27 07/27/2018 Secondary JOAO P [place] Insurance:MEDICAL OGDENDOB: [facility] [id number] Hospital Number: Repository [id number] Date:2058-93-51RH[address] [address]LZ: 07/27/2018 Tertiary NOT GIVENUNK [place] Insurance:SELF PAY [facility] Hospital Number: Effective Repository Date:2018-07-27 04/06/2018 JOAO P Primary JOAO P [place] [id number] CY[place] Insurance:MEDICARE OGDENDOB: [place] [facility] [id number] Hospital [address]Sru: (330) Number: Repository [phone] () [id number] Date:2018-04-06 04/06/2018 Secondary JOAO P [place] Insurance:MEDICAL OGDENDOB: [facility] [id number] Hospital Number: Repository [id number] Date:0398-06-04ML [address] [address]JP: 04/06/2018 Tertiary NOT GIVENUNK [place] Insurance:SELF PAY [facility] Hospital Number: Effective Repository Date:2018-04-06 02/02/2018 JOAO P Primary JOAO P [place] [id number] [place] Insurance:MEDICARE OGDENDOB: [place] [facility] [id number] Hospital [address]Xvm: (330) Number: Repository [phone] () [id number] Date:2018-02-02 02/02/2018 Secondary JOAO P [place] Insurance:MEDICAL OGDENDOB: [facility] [id number] Hospital Number: Repository [id number] Date:8595-30-40DM[address] [address]RW: 02/02/2018 Tertiary NOT GIVENUNK [place] Insurance:SELF PAY [facility] Hospital Number: Effective Repository Date:2018-02-02 12/30/2017 JOAO P Primary JOOA P [place] [id number] [place] Insurance:MEDICARE OGDENDOB: [place] [facility] [id number] Hospital [address]Bxe: (330) Number: Repository [phone] () [id number] Date:2017-12-16 12/30/2017 Secondary JOAO P [place] Insurance:MEDICAL OGDENDOB: [facility] [id number] Hospital Number: Repository [id number] Date:7900-88-35IH[address] [address]JI: 12/30/2017 Tertiary NOT GIVENUNK [place] Insurance:SELF PAY [facility] Hospital Number: Effective Repository Date:2017-12-16 12/30/2017 JOAO P Primary JOAO P [place] [id number] [place] Insurance:MEDICARE OGDENDOB: [place] [facility] [id number] Hospital [address]Yhm: (330) Number: Repository [phone] () [id number] Date:2017-12-16 12/30/2017 Secondary JOAO P [place] Insurance:MEDICAL OGDENDOB: [facility] [id number] Hospital Number: Repository [id number] Date:[id number] [address]CX: 12/30/2017 Tertiary NOT GIVENUNK [place] Insurance:SELF PAY [facility] Hospital Number: Effective Repository Date:2017-12-30 12/16/2017 JOAO P Primary JOAO P [place] [id number] [place] Insurance:MEDICARE OGDENDOB: [place] [facility] [id number] Hospital [address]Jif: (330) Number: Repository [phone] () [id number] Date:2017-12-01 12/16/2017 Secondary JOAO P [place] Insurance:MEDICAL OGDENDOB: [facility] [id number] Hospital Number: Repository [id number] Date:6951-41-53CF[address] [address]QJ: 12/16/2017 Tertiary NOT GIVENUNK [place] Insurance:SELF PAY [facility] Number: Effective Repository Date:2017-12-16 11/30/2017 JOAO P Primary JOAO P [place] [id number] [place] Insurance:MEDICARE OGDENDOB: [place] [facility] [id number] Hospital [address]Vkr: (330) Number: Repository [phone] () [id number] Date:2017-11-26 11/30/2017 Secondary JOAO P [place] Insurance:MEDICAL OGDENDOB: [facility] [id number] Hospital Number: Repository [id number] Date:[id number] [address] [address]TY: 11/30/2017 Tertiary NOT GIVENUNK [place] Insurance:SELF PAY [facility] Hospital Number: Effective Repository Date:2017-11-26 11/30/2017 JOAO P Primary JOAO P [place] [id number] [place] Insurance:MEDICARE OGDENDOB: [place] [facility] [id number] Hospital [address]Qbh: (330) Number: Repository [phone] () [id number] Date:2017-11-26 11/30/2017 Secondary JOAO P [place] Insurance:MEDICAL OGDENDOB: [facility] [id number] Hospital Number: Repository [id number] Date:5321-88-61KV [address] [address]XG: 11/30/2017 Tertiary NOT GIVENUNK [place] Insurance:SELF PAY [facility] Hospital Number: Effective Repository Date:2017-11-30 11/27/2017 Joao [id number] Primary Joao OgdenDOB: [place] Insurance[place]MEDICARE [id number] [facility] [address]Ynn: [phone]) Number: Repository [phone] () [id number] Date:2017-11-25 11/27/2017 Secondary Joao OgdenDOB: Timo Insurance:MEDICAL [id number] Repository [id number] Date:[id number] [address] [address]AQ: 11/27/2017 Tertiary NOT GIVENUNK [place] Insurance:SELF PAY [facility] Number: Effective Repository Date:2017-11-25 11/26/2017 JOAO [id number] Primary JOAO OGDENDOB: Timo [place] Insurance:MEDICARE [id number] PART [place] [facility] [id number]: [phone]) Number: Repository [phone] () [id number] Date:2017-11-19 11/26/2017 Secondary JOAO OGDENDOB: Timo Insurance:MEDICAL [id number] Number: Repository [id number] Date:[id number] [address] [address]JT: 11/26/2017 Tertiary NOT GIVENUNK [place] Insurance:SELF PAY [facility] Number: Effective Repository Date:2017-11-19 11/26/2017 JOAO P Primary JOAO P [place] [id number] CYN Insurance:MEDICARE OGDENDOB: [place] PART A [facility] [id number] Hospital [address]Xjw: [phone]) Number: Repository [phone] () [id number] Date:2017-11-19 11/26/2017 Secondary JOAO P [place] Insurance:MEDICAL OGDENDOB: [facility] [id number] Hospital Number: Repository [id number] Date:[id number] [address] [address]QQ: 11/26/2017 Tertiary NOT GIVENUNK [place] Insurance:SELF PAY [facility] Number: Effective Repository Date:2017-11-26 11/26/2017 JOAO P Primary JOAO P [place] [id number] CYN Insurance:MEDICARE OGDENDOB: [place] PART [place] [facility] [id number] Hospital [address]Wgx: [phone]) Number: Repository [phone] () [id number] Date:2017-11-26 11/26/2017 Secondary JOAO P [place] Insurance:MEDICAL OGDENDOB: [facility] [id number] Hospital Number: Repository [id number] Date:[id number] [address] [address]GW: 11/26/2017 Tertiary NOT GIVENUNK [place] Insurance:SELF PAY [facility] Number: Effective Repository Date:2017-11-26 11/26/2017 JOAO P Primary JOAO P [place] [id number] CYN Insurance:MEDICARE OGDENDOB: [place] PART [place] [facility] [id number] Hospital [address]Hhk: [phone]) Number: Repository [phone] () [id number] Date:2017-11-26 11/26/2017 Secondary JOAO P [place] Insurance:MEDICAL OGDENDOB: [facility] [id number] Hospital Number: Repository [id number] Date:[id number] [address]BP: 11/26/2017 Tertiary NOT GIVENUNK [place] Insurance:SELF PAY [facility] Number: Effective Repository Date:2017-11-26 11/25/2017 Joao [id number] Primary Joao OgdenDOB: Timo [place] Insurance[place]ICARE [id number] [facility] [address]Tru: [phone]) Number: Repository [phone] () [id number] Date:2017-11-19 11/25/2017 Secondary Joao OgdenDOB: Timo Insurance:MEDICAL [id number] [facility] Number: Repository [id number] Date:[id number] [address] [address]EQ: 11/25/2017 Tertiary NOT GIVENUNK [place] Insurance:SELF PAY [facility] Number: Effective Repository Date:2017-11-19 11/25/2017 JOAO P Primary JOAO P [place] [id number] CYN Insurance:MEDICARE OGDENDOB: [place] PART [place] [facility] [id number] Hospital [address]Lik: [phone]) Number: Repository [phone] () [id number] Date:2017-11-19 11/25/2017 Secondary JOAO P [place] Insurance:MEDICAL OGDENDOB: [facility] [id number] Hospital Number: Repository [id number] Date:[id number] [address] [address]XL: 11/25/2017 Tertiary NOT GIVENUNK [place] Insurance:SELF PAY [facility] Number: Effective Repository Date:2017-11-25 08/24/2017 Joao [id number] Primary Joao OgdenDOB: Timo [place] Insurance[place]MEDICARE [id number] PART [place] [facility] [address]Avo: [phone]) Number: Repository [phone] () [id number] Date:2017-08-24 08/24/2017 Secondary Joao OgdenDOB: [place] Insurance:MEDICAL [id number] Number: Repository [id number] Date:[id number] [address] [place] [address]QY: 08/24/2017 Tertiary NOT GIVENUNK [place] Insurance:SELF PAY [facility] Number: Effective Repository Date:2017-08-24
== END ==
PROVIDERS: Family Provider Family Medicine; PCP Family Medicine; Referring Provider Surgery; Visit Provider Surgery
DX: L72.9 Follicular cyst of the skin and subcutaneous tissue, unspecified (principal)
CPT/HCPCS: 88304; 88305; 88312

== ENCOUNTER → 2018-12-01 09:46 | Outpatient (CLI) | payer MEDICARE, OTHER, SELFPAY ==
--- NOTE | 2018-12-01 09:49 | CDU_ITS ---
Reason For Study: carotid stenosis Rt. Velocities/BP Lt. Velocities/BP Prox CCA 53.9/10.8 cm/sec. Prox CCA 90.0/18.8 cm/sec. Mid CCA 36.9/10.8 cm/sec. Mid CCA 80.2/20.0 cm/sec. Dist CCA 38.2/10.8 cm/sec. Dist CCA 66.7/13.9 cm/sec. Prox ICA 29.8/9.0 cm/sec. Prox ICA 126.6/27.9 cm/sec. Mid ICA 94.9/28.6 cm/sec. Mid ICA 104.7/29.8 cm/sec. Dist ICA 102.3/24.9 cm/sec. Dist ICA 132.1/35.3 cm/sec. Rt. ICA/CCA = 2.8. Lt. ICA/CCA = 1.6. Prox ECA 424.0 cm/sec. Prox ECA 141.2/17.0 cm/sec. Rt. Vert. 72.8/18.8 cm/sec. Lt. Vert. 66.3/21.2 cm/sec. Right Extracranial There is homogeneous, irregular atherosclerotic plaque noted in the right common carotid artery. There is intimal thickening but no significant atherosclerotic plaque noted in the right internal carotid artery. There is heterogeneous, irregular atherosclerotic plaque noted in the right external carotid artery. Antegrade flow is noted in the right vertebral artery. Left Extracranial There is heterogeneous, irregular atherosclerotic plaque noted in the left common carotid artery. There is heterogeneous, irregular atherosclerotic plaque noted in the left internal carotid artery. The atherosclerotic plaque causes acoustic shadowing. There is heterogeneous, irregular atherosclerotic plaque noted in the left external carotid artery. Antegrade flow is noted in the left vertebral artery. Procedure Carotid Duplex 33270. The exam was diagnostic. Exam performed in department. Interpretation Summary Patent post operative changes right carotid bulb and internal carotid with <50% stenosis right internal carotid Severe stenosis right external carotid Irregular calcific plague at the proximal left internal carotid with 50-69% stenosis. Irregular plague at the proximal left external carotid with <50% stenosis. Patent and antegrade vertebrals bilaterally Ordering Physician: Guillaume Hancock Performed By: Talon Christie RVT
== END ==
PROVIDERS: Family Provider Family Medicine; PCP Family Medicine; Referring Provider Surgery; Visit Provider Surgery
DX: G45.3 Amaurosis fugax (principal)
CPT/HCPCS: 93880

== ENCOUNTER → 2018-12-31 10:39 | Outpatient (CLI) | payer MEDICARE, OTHER, SELFPAY ==
--- NOTE | 2018-12-31 | LES_PTH ---
PATIENT: SYD BARNETT LOC: [facility] U#:[id number] AGE/SX: 79/M ROOM: RE12/31/[address]: Dr. Guillaume Hancock MD : 1945 BED: DIS: SPEC #: [id number] RECD: 12/31/18 10:35 STATUS: LILLI GRANT #: [id number] JOE: 12/31/18 00:[address]: Guillaume Hancock DEPT: SURGICAL PATHOLOGY RECD BY: Donell English ENTERED: 01/02/19 08:46 SP TYPE: Lesion OTHR DR: Dr. Damion Toscano MD Tissues: Skin of face, NOS Procedures: Surgery Specimen Level IV HEADER OPERATION: Re-excision left chip lesion PRE-OP DIAGNOSIS: Skin lesion face TISSUE SUBMITTED: Left chin tissue MICROSCOPIC DIAGNOSIS Left chin tissue, re-excision left chin lesion: Dermal fibrosis, consistent with scar. Hyperkeratosis and parakeratosis. Dermal chronic inflammation and foreign body giant cell reaction. Negative for malignancy. MINE:mayra 01/03/19 COMMENT Please make reference to previous specimen ([id number]) skin and soft tissue of chin, biopsy with diagnosis of non-necrotizing granulomatous and chronic inflammation and focal benign histiocytic reaction. Clinical correlation and appropriate follow up are necessary. MICROSCOPIC DESCRIPTION Slides are reviewed. GROSS DESCRIPTION Received in fixative is one container labeled with the patient's name and designated left chin. The specimen consists of a piece of hastings-white skin ellipse measuring 1.5 x 0.7 cm and up to 0.5 cm in thickness. The specimen is inked, serially sectioned and submitted entirely in one cassette. / MINE:mayra 01/02/19 TC:5 CPT: 07920
== END ==
PROVIDERS: Family Provider Family Medicine; PCP Family Medicine; Referring Provider Surgery; Visit Provider Surgery
DX: L98.9 Disorder of the skin and subcutaneous tissue, unspecified (principal)
CPT/HCPCS: 88305

== ENCOUNTER → 2019-04-12 09:18 | Outpatient (CLI) | payer MEDICARE, OTHER, SELFPAY ==
[2019-04-12 12:33] LABS: Erythrocyte Sedimentation Rate 18 mm/hr (0-20)
[2019-04-12 12:51] LABS: Vitamin D,25 Hydroxy 45.9 ng/mL (29.95-100.01)
[2019-04-12 13:02] LABS: ALB/GLOB Ratio 1.1 RATIO (0.9-2.4); AST(SGOT) 24 U/L (15-37); Alanine Aminotransfer ALT/SGPT 34 U/L (16-61); Albumin, Serum 3.7 g/dL (3.2-5.0); Alkaline Phosphatase 54 U/L (45-117); Anion Gap 10 (5-15); BUN 26 mg/dL (7-18); BUN/Creat Ratio 15.9 RATIO (10-20); CRP < 2.90 mg/L (0.0-3.0); Chloride 107 mmol/L (98-107); Creatinine, Serum 1.64 mg/dL (0.70-1.30); EST Glomerular Filtration Rate 44 mL/min (>60); Est Glom Filt Rate - Afr Amer 53 mL/min (>60); Globulin 3.5 g/dL (2.2-4.2); Glucose 233 mg/dL (74-106); Potassium 5.2 mmol/L (3.5-5.1); Protein, Total 7.2 g/dL (6.4-8.2); Rheumatoid Factor < 10.0 IU/mL (<15); Sodium Level 140 mmol/L (136-145); Thyroid Stim Hormone (TSH) 3.28 uIU/mL (0.358-3.74)
[2019-04-12 13:48] LABS: Absolute Lymphocyte Count 1.39 X10^3/uL (0.83-4.51); Absolute Neutrophil Count 3.4 X10^3/uL (2.0-7.7); Basophil% 1.8 % (0-1); Eosinophil# 0.29 X10^3/uL; Eosinophils% 5.2 % (0-5); Hematocrit 39.5 % (40-54); Hemoglobin 12.9 g/dL (13.0-16.5); Lymphocyte # 1.39 X10^3/ul (4.0); Lymphocyte % 24.7 % (19-41); Mean Corp Hgb Conc 32.7 g/dL (32-36); Mean Corpuscular Hgb 30.4 pg (27.0-32.0); Mean Corpuscular Volume 93.2 fL (80-94); Monocyte# 0.43 X10^3/uL; Monocyte% 7.7 % (0-10); NRBC Flagged by Analyzer 0 % (0-5); Neutrophil # 3.39 X10^3/uL (2.7-7.7); Neutrophil % 60.2 % (47-70); POSITIVE COUNT YES; Platelet Count 288 K/mm3 (150-450); RBC Distribution Width CV 12.5 % (11.6-14.6); Red Blood Count 4.24 M/mm3 (4.6-6.2); White Blood Count 5.6 K/mm3 (4.4-11.0)
[2019-04-12 14:12] LABS: Differential Indicated SCAN CRITERIA MET
[2019-04-13 17:19] LABS: ANTINUCLEAR ANTIBODIES DIRECT Negative (Negative)
[2019-04-14 16:33] LABS: CCP IgG Antibodies 10 units (0-19)
== END ==
PROVIDERS: Family Provider Family Medicine; PCP Family Medicine; Visit Provider Family Medicine
DX: E11.21 Type 2 diabetes mellitus with diabetic nephropathy (principal); I10 Essential (primary) hypertension; E78.5 Hyperlipidemia, unspecified; M06.4 Inflammatory polyarthropathy
CPT/HCPCS: 36415; 80053; 82306; 84443; 85025; 85652; 86038; 86140; 86200; 86225; 86235; 86431

== ENCOUNTER → 2019-07-31 08:56 | Outpatient (CLI) | payer MEDICARE, OTHER, SELFPAY ==
[2019-07-31 12:39] LABS: Anion Gap 6 (5-15); BUN 15 mg/dL (7-18); BUN/Creat Ratio 9.5 RATIO (10-20); Calcium,Total 8.7 mg/dL (8.5-10.1); Chloride 106 mmol/L (98-107); Creatinine, Serum 1.58 mg/dL (0.70-1.30); EST Glomerular Filtration Rate 46 mL/min (>60); Est Glom Filt Rate - Afr Amer 56 mL/min (>60); Glucose 221 mg/dL (74-106); Potassium 4.1 mmol/L (3.5-5.1); Sodium Level 138 mmol/L (136-145)
[2019-07-31 13:02] LABS: Vitamin B12 > 2000 pg/mL (211-911)
== END ==
LOC: LAB.FUTURE 08:56 → BFHLAB 10:49
PROVIDERS: Family Provider Family Medicine; PCP Family Medicine; Visit Provider Family Medicine
DX: E11.21 Type 2 diabetes mellitus with diabetic nephropathy (principal); E11.22 Type 2 diabetes mellitus with diabetic chronic kidney disease; N18.9 Chronic kidney disease, unspecified; E11.42 Type 2 diabetes mellitus with diabetic polyneuropathy
CPT/HCPCS: 36415; 80048; 82607

== ENCOUNTER → 2019-12-29 09:45 | Outpatient (CLI) | payer MEDICARE, OTHER, SELFPAY ==
--- NOTE | 2019-12-29 09:47 | CDU_ITS ---
Reason For Study: CAROTID STENOSIS Rt. Velocities/BP Lt. Velocities/BP Prox CCA 59.9/11.6 cm/sec. Prox CCA 76.1/13.5 cm/sec. Mid CCA 46.0/10.9 cm/sec. Mid CCA 84.9/20.1 cm/sec. Dist CCA 38.6/13.1 cm/sec. Dist CCA 69.5/16.8 cm/sec. Prox ICA 69.1/18.6 cm/sec. Prox ICA 113.1/27.2 cm/sec. Mid ICA 116.7/32.7 cm/sec. Mid ICA 147.8/49.1 cm/sec. Dist ICA 94.8/30.9 cm/sec. Dist ICA 113.1/32.7 cm/sec. Rt. ICA/CCA = 116.7/59.9=1.9. Lt. ICA/CCA = 147.8/84.9=1.7. Prox ECA 500.0/0.0 cm/sec. Prox ECA 167.4/20.4 cm/sec. Rt. Vert. 57.0/14.2 cm/sec. Lt. Vert. 78.5/28.1 cm/sec. Right Extracranial There is homogeneous, smooth atherosclerotic plaque noted in the right common carotid artery. There is homogeneous, smooth atherosclerotic plaque noted in the right internal carotid artery. There is homogeneous, smooth atherosclerotic plaque noted in the right external carotid artery. Left Extracranial There is heterogeneous, irregular atherosclerotic plaque noted in the left common carotid artery. There is heterogeneous, irregular atherosclerotic plaque noted in the left internal carotid artery. The atherosclerotic plaque causes acoustic shadowing. There is heterogeneous, smooth atherosclerotic plaque noted in the left external carotid artery. Antegrade flow is noted in the left vertebral artery. There is heterogeneous, irregular atherosclerotic plaque noted in the left bulb. Interpretation Summary Post operative changes right carotid bulb and proximal internal carotid artery with no hemodynamically significant plaque and less than 50% stenosis of the internal carotid. >50% stenosis right external carotid Irregular calcific plaque with shadowing proximal left internal carotid with 50-69% stenosis <50% stenosis left external carotid Patent, antegrade vertebrals bilaterally No significant change from the previous examination of December 01, 2018 Ordering Physician: Guillaume Hancock Referring Physician: Damion Toscano Performed By: Aliyah Villela, TAQUERIA, RVT
== END ==
PROVIDERS: PCP Family Medicine; Referring Provider Surgery; Visit Provider Surgery
DX: I65.22 Occlusion and stenosis of left carotid artery (principal)
CPT/HCPCS: 93880

== ENCOUNTER → 2020-02-07 10:06 | Outpatient (CLI) | payer MEDICARE, OTHER, SELFPAY ==
[2020-02-07 13:03] LABS: Anion Gap 10 (5-15); BUN 24 mg/dL (7-18); BUN/Creat Ratio 14.7 RATIO (10-20); Calcium,Total 8.7 mg/dL (8.5-10.1); Chloride 107 mmol/L (98-107); Creatinine, Serum 1.63 mg/dL (0.70-1.30); EST Glomerular Filtration Rate 44 mL/min (>60); Est Glom Filt Rate - Afr Amer 54 mL/min (>60); Glucose 209 mg/dL (74-106); Potassium 4.6 mmol/L (3.5-5.1); Sodium Level 138 mmol/L (136-145)
== END ==
PROVIDERS: PCP Family Medicine; Visit Provider Family Medicine
DX: N18.9 Chronic kidney disease, unspecified (principal)
CPT/HCPCS: 36415; 80048

== ENCOUNTER → 2020-08-14 10:39 | Outpatient (CLI) | payer MEDICARE, OTHER, SELFPAY ==
[2020-08-14 12:46] LABS: Absolute Lymphocyte Count 1.92 X10^3/uL (0.83-4.51); Absolute Neutrophil Count 5.4 X10^3/uL (2.0-7.7); Basophil% 1.2 % (0-1); Eosinophil# 0.15 X10^3/uL; Eosinophils% 1.8 % (0-5); Lymphocyte # 1.92 X10^3/ul (4.0); Lymphocyte % 23.3 % (19-41); Mean Corp Hgb Conc 32.5 g/dL (32-36); Mean Corpuscular Hgb 29.9 pg (27.0-32.0); Mean Platelet Vol. 11.6 fl (6.2-12.0); Monocyte# 0.66 X10^3/uL; NRBC Flagged by Analyzer 0 % (0-5); Neutrophil # 5.38 X10^3/uL (2.7-7.7); Neutrophil % 65.5 % (47-70); Platelet Count 314 K/mm3 (150-450); RBC Distribution Width CV 12.6 % (11.6-14.6); RBC Distribution Width SD 42.5 fl (35.1-43.9); Red Blood Count 4.35 M/mm3 (4.6-6.2); White Blood Count 8.2 K/mm3 (4.4-11.0)
[2020-08-14 12:50] LABS: Anion Gap 7 (5-15); BUN 23 mg/dL (7-18); BUN/Creat Ratio 14.5 RATIO (10-20); Calcium,Total 9.2 mg/dL (8.5-10.1); Chloride 109 mmol/L (98-107); Creatinine, Serum 1.59 mg/dL (0.70-1.30); EST Glomerular Filtration Rate 46 mL/min (>60); Est Glom Filt Rate - Afr Amer 55 mL/min (>60); Ferritin 27 ng/mL (26-388); Glucose 105 mg/dL (74-106); Iron 64 ug/dL (65-175); Potassium 4.1 mmol/L (3.5-5.1); Sodium Level 140 mmol/L (136-145); Thyroid Stim Hormone (TSH) 3.52 uIU/mL (0.358-3.74)
--- NOTE | 2020-08-14 17:11 | RAD_ITS ---
STUDY: X-RAY - LUMBOSACRAL SPINE REASON FOR EXAM: Male, 74 years old. Pain. Pt fell onto a step and hit lower back about 2 months ago . TECHNIQUE: 6 view(s) of the lumbosacral spine were obtained, including lateral views in flexion and extension. COMPARISON: None FINDINGS: Normal lumbar lordosis. There is no substantial scoliosis. 6 mm of retrolisthesis L2 on L3 and 3 mm of retrolisthesis of L3 on L4. No significant motion in flexion or extension. Normal vertebral bodies. Small marginal osteophytes L2-L3 through L4-L5. Disc space narrowing L2-L3, L3-L4 and L5-S1. Normal bilateral sacral ala, sacroiliac joints, and visualized sacrum. Normal visualized soft tissue structures. Atherosclerotic calcification distal abdominal aorta. Surgical coils in the anterior pelvis. RAD/L/S Spine Bending Flex/Ext IMPRESSION: Multilevel degenerative changes. No significant motion in flexion or extension. Electronically Signed: Herbie Sandoval MD at 4:39 EST , Service support ,
== END ==
PROVIDERS: PCP Family Medicine; Referring Provider Family Medicine; Visit Provider Family Medicine
DX: I12.9 Hypertensive chronic kidney disease with stage 1 through stage 4 chronic kidney disease, or unspecified chronic kidney disease (principal); N18.9 Chronic kidney disease, unspecified; E11.22 Type 2 diabetes mellitus with diabetic chronic kidney disease; E11.21 Type 2 diabetes mellitus with diabetic nephropathy; E78.5 Hyperlipidemia, unspecified; S39.012A Strain of muscle, fascia and tendon of lower back, initial encounter; W19.XXXA Unspecified fall, initial encounter
CPT/HCPCS: 36415; 72120; 80048; 82728; 83540; 84443; 85025

== ENCOUNTER 2020-10-01 16:46 | Outpatient (RCR) | payer MEDICARE, OTHER, SELFPAY ==
[2020-10-01] MEDS: COVID-19 VACC, MRNA(PFIZER)/PF 30 MCG/0.3 ML SYRINGE IM (14:34)
[2020-10-22] MEDS: COVID-19 VACC, MRNA(PFIZER)/PF 30 MCG/0.3 ML SYRINGE IM (14:21)
== END 2020-12-31 23:59 ==
LOC: IMMUN 16:46
PROVIDERS: PCP Family Medicine; Referring Provider Family Medicine; Visit Provider Family Medicine
DX: Z23 Encounter for immunization (principal)
CPT/HCPCS: 0001A; 0002A; 91300

== ENCOUNTER → 2020-11-29 09:47 | Outpatient (CLI) | payer MEDICARE, OTHER, SELFPAY ==
[2020-11-29 12:07] LABS: Absolute Lymphocyte Count 2.96 X10^3/uL (0.83-4.51); Absolute Neutrophil Count 5.9 X10^3/uL (2.0-7.7); Basophil# 0.12 X10^3/uL; Basophil% 1.2 % (0-1); Eosinophil# 0.08 X10^3/uL; Eosinophils% 0.8 % (0-5); Hematocrit 40.9 % (40-54); Hemoglobin 13.5 g/dL (13.0-16.5); Lymphocyte # 2.96 X10^3/ul (0.83-4.51); Lymphocyte % 30.4 % (19-41); Mean Corpuscular Volume 90.9 fL (80-94); Mean Platelet Vol. 11.1 fl (6.2-12.0); Monocyte# 0.65 X10^3/uL; Monocyte% 6.7 % (0-10); NRBC Flagged by Analyzer 0 % (0-5); Neutrophil % 60.6 % (47-70); Platelet Count 378 K/mm3 (150-450); RBC Distribution Width CV 12.1 % (11.6-14.6); RBC Distribution Width SD 40.2 fl (35.1-43.9); White Blood Count 9.7 K/mm3 (4.4-11.0)
[2020-11-29 12:09] LABS: Erythrocyte Sedimentation Rate 4 mm/hr (0-20)
[2020-11-29 12:18] LABS: Vitamin D,25 Hydroxy 34.1 ng/mL
[2020-11-29 12:30] LABS: AST(SGOT) 8 U/L (15-37); Alanine Aminotransfer ALT/SGPT 32 U/L (16-61); Albumin, Serum 3.7 g/dL (3.2-5.0); Alkaline Phosphatase 50 U/L (45-117); Anion Gap 11 (5-15); BUN 25 mg/dL (7-18); BUN/Creat Ratio 15.9 RATIO (10-20); CPK Total, Creatine Kinase 47 U/L (39-308); CRP < 2.90 mg/L (0.0-3.0); Calcium,Total 9.7 mg/dL (8.5-10.1); Chloride 103 mmol/L (98-107); Creatinine, Serum 1.57 mg/dL (0.70-1.30); EST Glomerular Filtration Rate 46 mL/min (>60); Est Glom Filt Rate - Afr Amer 56 mL/min (>60); Ferritin 29 ng/mL (26-388); Globulin 3.6 g/dL (2.2-4.2); Glucose 154 mg/dL (74-106); Iron 144 ug/dL (65-175); Potassium 3.7 mmol/L (3.5-5.1); Protein, Total 7.3 g/dL (6.4-8.2); Rheumatoid Factor < 10.0 IU/mL (<15); Sodium Level 140 mmol/L (136-145); T4 Free Direct 1.03 ng/dL (0.76-1.46); Thyroid Stim Hormone (TSH) 3.66 uIU/mL (0.358-3.74)
[2020-11-30 16:24] LABS: ANTINUCLEAR ANTIBODIES DIRECT Negative (Negative)
== END ==
PROVIDERS: PCP Family Medicine; Referring Provider Family Medicine; Visit Provider Family Medicine
DX: M13.0 Polyarthritis, unspecified (principal); G62.9 Polyneuropathy, unspecified; E78.5 Hyperlipidemia, unspecified; I10 Essential (primary) hypertension; D64.9 Anemia, unspecified
CPT/HCPCS: 36415; 80053; 82306; 82550; 82728; 83540; 84439; 84443; 85025; 85652; 86038; 86140; 86200; 86225; 86235; 86431

== ENCOUNTER → 2020-12-30 08:50 | Outpatient (CLI) | payer MEDICARE, OTHER, SELFPAY ==
--- NOTE | 2020-12-30 08:53 | CDU_ITS ---
Reason For Study: Carotid stenosis Rt. Velocities/BP Lt. Velocities/BP Prox CCA 48.5/11.6 cm/sec. Prox CCA 91.2/20 cm/sec. Mid CCA 44.7/10.7 cm/sec. Mid CCA 90/20 cm/sec. Dist CCA 39/9.7 cm/sec. Dist CCA 76.5/16.3 cm/sec. Prox ICA 59.8/14.5 cm/sec. Prox ICA 110.1/31.6 cm/sec. Mid ICA 115.6/29.8 cm/sec. Mid ICA 132/40.7 cm/sec. Dist ICA 85.1/26.2 cm/sec. Dist ICA 115.6/33.4 cm/sec. Rt. ICA/CCA = 2.59. Lt. ICA/CCA = 1.47. Prox ECA 448.3/91.4 cm/sec. Prox ECA 208/24.1 cm/sec. Rt. Vert. 63/15.1 cm/sec. Lt. Vert. 63/16.3 cm/sec. Right Extracranial There is homogeneous, smooth atherosclerotic plaque noted in the right common carotid artery. There is homogeneous, smooth atherosclerotic plaque noted in the right internal carotid artery. There is homogeneous, smooth atherosclerotic plaque noted in the right external carotid artery. Antegrade flow is noted in the right vertebral artery. Left Extracranial There is heterogeneous, irregular atherosclerotic plaque noted in the left common carotid artery. There is heterogeneous, irregular atherosclerotic plaque noted in the left internal carotid artery. The atherosclerotic plaque causes acoustic shadowing. There is heterogeneous, irregular atherosclerotic plaque noted in the left external carotid artery. Antegrade flow is noted in the left vertebral artery. Procedure Carotid Duplex 45828. This is a Carotid Duplex examination using B-mode, color flow and specral Doppler. Exam performed in department. VL/Carotid Duplex Ultrasound Interpretation Summary Postoperative changes of the right carotid bulb and proximal internal carotid a rtery with no hemodynamically significant plaque and less than 50% stenosis. Greater than 50% stenosis right external carotid artery Irregular calcific plaque with shadowing at the proximal left internal carotid artery with 50 to 69% stenosis. Greater than 50% stenosis left external carotid artery Patent and antegrade vertebral arteries bilaterally Mild progression of stenosis of the left external carotid artery from the previ ous examination of December 29, 2019. No hemodynamically significant changes. Ordering Physician: Guillaume Hancock Referring Physician: Damion Toscano Performed By: Bibiana Ron RVT
== END ==
PROVIDERS: PCP Family Medicine; Referring Provider Surgery; Visit Provider Surgery
DX: I65.22 Occlusion and stenosis of left carotid artery (principal); Z98.890 Other specified postprocedural states
CPT/HCPCS: 93880

== ENCOUNTER → 2021-03-14 13:49 | Outpatient (CLI) | payer MEDICARE, OTHER, SELFPAY ==
--- NOTE | 2021-03-14 13:52 | ECHOCS_ITS ---
Version 2 Reason For Study: Dyspnea Procedure This was a 2D Doppler, Color Flow transthoracic echocardiogram. Contrast injection was performed. Exam performed in department. Left Ventricle Normal LV size. Left ventricular systolic function is normal. The estimated ejection fraction is 65 %. Stage 1 diastolic dysfunction. No regional wall motion abnormalities noted. Right Ventricle Normal RV size. Normal systolic function. Tricuspid Valve Normal tricuspid valve. Aortic Valve Trisinus/trileaflet aortic valve. Mild focal aortic valve calcification. Peak aortic valve gradient 22 mmHg. Mean aortic valve gradient 13 mmHg. Mild aortic stenosis. Pulmonic Valve Normal pulmonic valve. Great Vessels Normal aortic root. The pulmonary artery is normal size. Normal inferior vena cava. Pericardium/Pleural No pericardial effusion. Medication Diluted definity 2ml given slow IV push to enhance endocardial definition. MMode/2D Measurements & Calculations LVIDd: 3.9 cm IVSd: 1.2 cm LVOT diam: 2.1 cm LVIDs: 2.7 cm LVPWd: 1.3 cm LVOT area: 3.4 cm2 RVDd: 3.0 cm FS: 31.4 % Ao root diam: 3.0 cm LAV(MOD-bp): 50.4 ml LVAd ap4: 25.9 cm2 LAV(MOD-bp) Indexed: 27.3 ml/m2 LVLd ap4: 7.6 cm LAV(MOD-sp2): 43.5 ml EDV(MOD-sp4): 72.8 ml LAV(MOD-sp4): 56.1 ml EDV(sp4-el): 75.2 ml LVAs ap4: 15.8 cm2 LVLs ap4: 7.0 cm ESV(MOD-sp4): 31.8 ml ESV(sp4-el): 30.4 ml EF(MOD-sp4): 56.4 % EF(sp4-el): 59.6 % SV(MOD-sp4): 41.1 ml SV(sp4-el): 44.8 ml LA A4 area: 19.1 cm2 LA dimension(2D): 4.4 cm RA A4 area: 12.3 cm2 Doppler Measurements & Calculations MV E max ori: 87.4 cm/sec Lat Peak E' Ori: 9.9 cm/sec Med Peak E' Ori: 5.6 cm/sec MV A max ori: 123.5 cm/sec E/E' lat: 8.8 E/E' med: 15.6 MV E/A: 0.71 Ao V2 max: 238.6 cm/sec LV V1 max: 100.2 cm/sec SV(LVOT): 76.7 ml Ao max P.8 mmHg LV V1 max P.0 mmHg Ao V2 mean: 171.1 cm/sec LV V1 mean P.4 mmHg Ao mean P.8 mmHg LV V1 mean: 74.4 cm/sec Ao V2 VTI: 47.6 cm LV V1 VTI: 22.5 cm JOELLE(I,D): 1.6 cm2 JOELLE(V,D): 1.4 cm2 PA V2 max: 126.0 cm/sec ECHO/Echo Complete W/ Contrast Interpretation Summary Normal LV size. Left ventricular systolic function is normal. The estimated ejection fraction is 65 %. Stage 1 diastolic dysfunction. No regional wall motion abnormalities noted. Mild focal aortic valve calcification. Mild aortic stenosis. Contrast injection was performed. Ordering Physician: Damion Toscano Referring Physician: Damion Toscano Performed By: Trinity Root, CLAYTONCS, RVT
== END ==
PROVIDERS: PCP Family Medicine; Referring Provider Family Medicine; Visit Provider Family Medicine
DX: R01.1 Cardiac murmur, unspecified (principal); R06.00 Dyspnea, unspecified
CPT/HCPCS: 93306; Q9957; A4216; C8929; J3490

== ENCOUNTER → 2022-12-25 | Outpatient (CLI) | payer MEDICARE, OTHER, SELFPAY ==
--- NOTE | 2022-12-25 12:34 | CDU_ITS ---
Reason For Study: Left carotid artery stenosis Rt. Velocities/BP Lt. Velocities/BP Prox CCA 51.3/10.7 cm/sec. Prox CCA 83.9/22.5 cm/sec. Mid CCA 35.2/10.7 cm/sec. Mid CCA 85.1/18.8 cm/sec. Dist CCA 39.0/12.6 cm/sec. Dist CCA 74.0/16.3 cm/sec. Prox ICA 37.9/11.6 cm/sec. Prox ICA 132.1/33.4 cm/sec. Mid ICA 104.7/26.1 cm/sec. Mid ICA 137.5/35.3 cm/sec. Dist ICA 113.8/22.5 cm/sec. Dist ICA 121.1/29.8 cm/sec. Rt. ICA/CCA = 3.2. Lt. ICA/CCA = 1.6. Prox ECA 515.0/27.6 cm/sec. Prox ECA 208.1/24.1 cm/sec. Rt. Vert. 62.6/11.5 cm/sec. Lt. Vert. 84.6/27.9 cm/sec. Right Extracranial There is heterogeneous, smooth atherosclerotic plaque noted in the right common carotid artery. There is heterogeneous, smooth atherosclerotic plaque noted in the right internal carotid artery. There is heterogeneous, irregular atherosclerotic plaque noted in the right external carotid artery. Antegrade flow is noted in the right vertebral artery. Left Extracranial There is heterogeneous, irregular atherosclerotic plaque noted in the left common carotid artery. There is heterogeneous, irregular atherosclerotic plaque noted in the left internal carotid artery. The atherosclerotic plaque causes acoustic shadowing. There is heterogeneous, irregular atherosclerotic plaque noted in the left external carotid artery. Biphasic flow is noted in the left vertebral artery. Procedure Carotid Duplex [id number]. This is a Carotid Duplex examination using B-mode, color flow and specral Doppler. The exam was diagnostic. Exam performed in department. VL/Carotid Duplex Ultrasound Interpretation Summary Postoperative changes of the right carotid bulb and proximal internal carotid a rtery with less than 50% stenosis Greater than 50% stenosis right external carotid artery Dense calcific plaque at the proximal left internal carotid artery with shadowi ng and 50 to 69% stenosis of the left internal carotid artery Greater than 50% stenosis left external carotid artery Patent and antegrade vertebral arteries bilaterally No changes from the previous examination of December 30, 2020 Ordering Physician: Guillaume Hancock Referring Physician: Guillaume Hancock Performed By: Ed Tristan RVT
== END | disposition home or self-care (01) ==
LOC: CVS 12:32
PROVIDERS: PCP Family Medicine; Referring Provider Surgery; Visit Provider Surgery
DX: I65.22 Occlusion and stenosis of left carotid artery (principal)
CPT/HCPCS: 93880

== ENCOUNTER → 2023-01-19 | Outpatient (CLI) | payer MEDICARE, OTHER, SELFPAY ==
[2023-01-19 14:50] LABS: Absolute Lymphocyte Count 1.81 X10^3/uL (0.83-4.51); Absolute Neutrophil Count 3.6 X10^3/uL (2.0-7.7); Basophil# 0.11 X10^3/uL; Basophil% 1.7 % (0-1); Eosinophil# 0.25 X10^3/uL; Eosinophils% 3.9 % (0-5); Hematocrit 41.1 % (40-54); Hemoglobin 13.1 g/dL (13.0-16.5); Lymphocyte # 1.81 X10^3/ul (0.83-4.51); Lymphocyte % 28.3 % (19-41); Mean Corp Hgb Conc 31.9 g/dL (32-36); Mean Corpuscular Hgb 30.7 pg (27.0-32.0); Mean Corpuscular Volume 96.3 fL (80-94); Mean Platelet Vol. 11.2 fl (6.2-12.0); Monocyte% 9.4 % (0-10); NRBC Flagged by Analyzer 0 % (0-5); Neutrophil # 3.61 X10^3/uL (2.7-7.7); Neutrophil % 56.4 % (47-70); Platelet Count 318 K/mm3 (150-450); RBC Distribution Width CV 12.8 % (11.6-14.6); RBC Distribution Width SD 45.1 fl (35.1-43.9); Red Blood Count 4.27 M/mm3 (4.6-6.2); White Blood Count 6.4 K/mm3 (4.4-11.0)
[2023-01-19 15:13] LABS: Vitamin D,25 Hydroxy 70.7 ng/mL
[2023-01-19 16:27] LABS: ALB/GLOB Ratio 0.9 RATIO (0.9-2.4); AST(SGOT) 16 U/L (15-37); Alanine Aminotransfer ALT/SGPT 23 U/L (16-61); Albumin, Serum 3.7 g/dL (3.2-5.0); Alkaline Phosphatase 40 U/L (45-117); Anion Gap 5 (5-15); BUN 30 mg/dL (7-18); BUN/Creat Ratio 12.5 RATIO (10-20); Calcium,Total 9.4 mg/dL (8.5-10.1); Chloride 110 mmol/L (98-107); EST Glomerular Filtration Rate 28 mL/min (>60); Est Glom Filt Rate - Afr Amer 34 mL/min (>60); Globulin 3.9 g/dL (2.2-4.2); Glucose 97 mg/dL (74-106); Potassium 6.5 mmol/L (3.5-5.1); Protein, Total 7.6 g/dL (6.4-8.2); Sodium Level 137 mmol/L (136-145); Thyroid Stim Hormone (TSH) 2.52 uIU/mL (0.358-3.74)
== END | disposition home or self-care (01) ==
LOC: BFHLAB 13:33
PROVIDERS: PCP Nurse Practitioner Family; Referring Provider Nurse Practitioner Family; Visit Provider Nurse Practitioner Family
DX: I12.9 Hypertensive chronic kidney disease with stage 1 through stage 4 chronic kidney disease, or unspecified chronic kidney disease (principal); N18.9 Chronic kidney disease, unspecified; D50.9 Iron deficiency anemia, unspecified; E55.9 Vitamin D deficiency, unspecified
CPT/HCPCS: 36415; 80053; 82306; 84443; 85025

== ENCOUNTER → 2023-01-20 | Outpatient (CLI) | payer MEDICARE, OTHER, SELFPAY ==
[2023-01-20 13:15] LABS: Anion Gap 5 (5-15); BUN 28 mg/dL (7-18); BUN/Creat Ratio 11.7 RATIO (10-20); Calcium,Total 9.6 mg/dL (8.5-10.1); Chloride 106 mmol/L (98-107); Creatinine, Serum 2.39 mg/dL (0.70-1.30); EST Glomerular Filtration Rate 28 mL/min (>60); Est Glom Filt Rate - Afr Amer 34 mL/min (>60); Glucose 170 mg/dL (74-106); Potassium 5.6 mmol/L (3.5-5.1); Sodium Level 135 mmol/L (136-145)
== END | disposition home or self-care (01) ==
LOC: BFHLAB 09:43
PROVIDERS: PCP Nurse Practitioner Family; Referring Provider Nurse Practitioner Family; Visit Provider Nurse Practitioner Family
DX: N18.9 Chronic kidney disease, unspecified (principal); E87.5 Hyperkalemia
CPT/HCPCS: 36415; 80048

== ENCOUNTER → 2023-03-31 | Outpatient (CLI) | payer MEDICARE, OTHER, SELFPAY ==
--- NOTE | 2023-03-31 14:22 | RAD_ITS ---
EXAM: XR LUMBOSACRAL SPINE, 4 OR 5 VIEWS CLINICAL INDICATION: LUMBAR PAIN AND LEFT RADICULOPATHY TECHNIQUE: Frontal, lateral and bilateral oblique views of the lumbar spine. COMPARISON: Lumbar spine radiographs of 08/14/2020. FINDINGS: VERTEBRAE: Extensive lumbar facet arthritis is present. No pars defect. Normal lumbar lordosis. Stable mild lumbar dextroscoliosis. There is stable retrolisthesis of L2 on L3 and of L3 on L4. No compression fracture. SACRUM/COCCYX: SI joints are unremarkable. Visualized lower ribs are intact. DISC SPACES: Stable moderate degenerative narrowing of the L2/3 disc space with mild endplate degenerative changes and small marginal osteophytes. L3/4 disc space shows severe degenerative narrowing with endplate sclerosis, marginal osteophytes and vacuum disc phenomenon. L4/5 disc space shows moderate degenerative narrowing with mild endplate sclerosis and marginal osteophytes. L5/S1 disc space remains moderately narrowed. SOFT TISSUES: Numerous surgical mesh markers again noted within each inguinal region. VASCULATURE: Calcific abdominal aorta which is normal in caliber. GASTROINTESTINAL TRACT: Unremarkable as visualized. Included bowel gas pattern is non-obstructive. RAD/L/S Spine Min 4 Views IMPRESSION: 1. Multilevel lumbar degenerative disc disease and extensive lumbar facet arthritis, stable except for progressive disc space narrowing at the L4/5 level. 2. No acute fracture. Electronically Signed: Jayson Ashraf MD at 23:50 EDT ,
== END | disposition home or self-care (01) ==
PROVIDERS: PCP Nurse Practitioner Family; Referring Provider Nurse Practitioner Family; Visit Provider Nurse Practitioner Family
DX: M54.50 Low back pain, unspecified (principal); M54.10 Radiculopathy, site unspecified
CPT/HCPCS: 72110

== ENCOUNTER → 2023-04-15 | Outpatient (CLI) | payer MEDICARE, OTHER, SELFPAY | END | disposition home or self-care (01) | LOC: BFHLAB 09:28 | PROVIDERS: PCP Nurse Practitioner Family; Referring Provider Nurse Practitioner Family; Visit Provider Nurse Practitioner Family | DX: N18.9 Chronic kidney disease, unspecified (principal); E87.5 Hyperkalemia ==

== ENCOUNTER → 2023-04-16 | Outpatient (CLI) | payer MEDICARE, OTHER, SELFPAY ==
[2023-04-16 13:23] LABS: Anion Gap 4 (5-15); BUN 22 mg/dL (7-18); BUN/Creat Ratio 11.8 RATIO (10-20); Calcium,Total 9.2 mg/dL (8.5-10.1); Chloride 112 mmol/L (98-107); Creatinine, Serum 1.87 mg/dL (0.70-1.30); EST Glomerular Filtration Rate 37 mL/min (>60); Est Glom Filt Rate - Afr Amer 45 mL/min (>60); Glucose 121 mg/dL (74-106); Sodium Level 140 mmol/L (136-145)
== END | disposition home or self-care (01) ==
LOC: BFHLAB 09:52
PROVIDERS: PCP Nurse Practitioner Family; Referring Provider Nurse Practitioner Family; Visit Provider Nurse Practitioner Family
DX: N18.9 Chronic kidney disease, unspecified (principal); E87.5 Hyperkalemia
CPT/HCPCS: 36415; 80048

== ENCOUNTER → 2023-04-28 | Outpatient (CLI) | payer MEDICARE, OTHER, SELFPAY ==
--- NOTE | 2023-04-28 15:53 | MRI_ITS ---
STUDY: MRI LUMBAR SPINE WITHOUT CONTRAST REASON FOR EXAM: Male, 77 years old. L sciatic pain radiates into big toe TECHNIQUE: Standardized fat and water weighted pulse sequences were obtained in the sagittal and axial planes. COMPARISON: X-ray March 31, 2023. FINDINGS: T12-L1: Normal endplates. Normal disc height, hydration and morphology. Normal bilateral facet joints. Normal central canal and bilateral lateral recesses. Normal bilateral intervertebral neural foramina. There is an exaggerated lumbar lordosis. There is grade 1 retrolisthesis at L2-3 and L3-4. There is a dextroscoliosis of the lumbar spine. Normal conus medullaris that terminates at the T12 level. L1-2: Normal endplates. Normal disc height, hydration and morphology. Normal bilateral facet joints. Normal central canal and bilateral lateral recesses. Normal bilateral intervertebral neural foramina. L2-3: Disc space narrowing with endplate changes. Disc bulge and spurring. Facet spurring. Mild canal stenosis. Mild foraminal narrowing L3-4: Disc space narrowing on the left with endplate change. Disc bulge and spurring. Facet spurring. Moderate canal stenosis. Left greater than right foraminal narrowing. L4-5: Disc space narrowing on the right with endplate changes. Disc bulge and spurring with central disc protrusion. Facet spurring and ligamentum flavum hypertrophy. Severe canal stenosis. Right foraminal narrowing. L5-S1: Disc space narrowing. Disc bulge and spurring. Facet spurring. No canal stenosis. Bilateral foraminal narrowing. Normal visualized sacral ala. Normal visualized paraspinous soft tissue structures. MRI/Spine Lumbar (Routine) IMPRESSION: Multilevel degenerative changes, as described above. Electronically Signed: Manish Spence MD at 18:16 EDT ,
== END | disposition home or self-care (01) ==
LOC: MRI 15:52
PROVIDERS: PCP Nurse Practitioner Family; Referring Provider Orthopaedic Surgery; Visit Provider Orthopaedic Surgery
DX: M48.061 Spinal stenosis, lumbar region without neurogenic claudication (principal)
CPT/HCPCS: 72148

== ENCOUNTER 2023-06-16 12:30 | Outpatient (RCR) | payer MEDICARE, OTHER, SELFPAY ==
--- NOTE | 2023-05-24 17:29 | HP.PTEVAL ---
Patient's Visit Information Visit Information Visit Information: SYD BARNETT is a 77 year old M referred to Physical Therapy by Dr. Mukesh Gutierrez MD with a diagnosis of Spinal Stenosis. Date of Evaluation: 05/24/23 Physical Therapist: Page Burgos DPT Visit Plan Frequency: 1x/Week Duration: 4 Weeks Plan: Focus on core strength/stabilization and decreasing radicular s/s HEP Given IE: TA contraction, hip abd, hip add and SKTC Subjective Subjective: Patient reports that he fell and was diagnosed with spinal stenosis and his left leg doesn't work very well and it hurts. A couple of years ago he fell on some wet leaves and since then the pain comes and goes. There are some things that he can't do anymore. 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 The pain is located in the base of the back and when the sciatic goes it goes in the center of the left buttock and radiates all the way to the big toe. The sciatica bothers him depending on what he is doing. He feels the left leg is getting weaker and weaker. It flares up if walks a lot or lifting things. There is a brace he wears on the back of his calf that makes it feel better- sitting down and elevating his feet. The sciatica pain is a sharp and shooting pain. Feels like a hot environmental engineer the middle of his buttocks. He did have x-rays and an MRI taken. He saw Dr. Espino who sent him to pain mgmt who is planning to do injections. They wanted him to do therapy prior to the injections. He is retired so he is not as active as he use to be. He feels that it limits him the most in the mornings. Its very stiff. He feels that the right leg changes his balance. He has neuropathy in his feet so he does have some N/T. Sleep: not disturbed- if his sciatica is bothering him sometimes that will wake him up. PMHx/Meds: see list in chart. Objective Objective: Posture: Forward head, rounded shoulder and increased kyphosis-can correct but does not maintain Gait: forward posture- no AD- good amee HR/TR: able with UE A SLS: weight shift but does not SLS- reports more stable on his right LE doesn't trust his left LE Palpation: tender along left paraspinals and into the left gluts ROM: Lumbar: flexion: hands to knees, extn: neutral SB: WFL Rotation: WFL pain with left rotation, LE: WFL in all planes Reflex: WFL patellar Strength: Core; fair minus, Hip: 4/5 throughout, Knee: Extn: Left: 65 Right: 78 Flexion: Left: 27 Right: 31, Ankle: Bilateral 5/5 Flex: HS: severe Gastroc: moderate, Piriformis: severe Special Test: dural signs: positive on left, SKCT: decrease s/s Special Tests L/S Slump test left side: Positive L/S Slump test right side: Negative L/S Left Straight Leg Raise: Positive L/S Right Straight Leg Raise: Negative Goals Goal 1:: Patient will report participation in home exercise program activities a minimum of 5 days per week, as adjunct to skilled physical therapy intervention in preparation for independent home management upon discharge. Goal Time Frame: 4-6 Weeks Goal 2:: Patient will report an increase of 9 points on the LEFS to show minimal clinical significant difference on patients functional outcome measure. Goal Time Frame: 4-6 Weeks Goal 3:: Patient will maintain proper posture t/o tx session to demo increased core s/s Goal Time Frame: 4-6 Weeks Goal 4:: Patient will report no radicular s/s down the left leg for 1 week to ease ADL's Goal Time Frame: 4-6 Weeks Rehabilitation Potential Physical Therapy Diagnosis: Patient presents with hypomobility- he has decreased pain free ROM, LE and core strength/stabilization, flex and muscular endurance leading to poor posture and increased pain with ADL's, Rehabilitation Potential: Good Anticipated Interventions Patient/Client Instruction: Educate patient on: Benefits of Fitness Program Therapeutic Exercise to Include: Strength training, Endurance training, Balance training, Coordination, Agility training, Body mechanics, Postural training, Flexibilty training, Gait and locomotor training, Neuromotor development, Dynamic Lumbar Stabilization and Scapular Strength/Stabilization Text: Thank you for the opportunity to evaluate your patient. For Medicare and Medicare HMO plans, please review the plan of care and approve it. It will need to be FAXED BACK to us at [phone] for Medicare purposes. For Medicare only, by signing this I certify the plan of care. Please let me know if there are questions or concerns regarding this plan of care. Physician Signature: Date:
--- NOTE | 2023-06-16 14:06 | HP.PTDCSUM ---
Discharge Summary D/C summary: It has been my pleasure to treat SYD BARNETT referred by Dr. Mukesh Gutierrez MD, with the diagnosis of Spinal Stenosis for a total of 5 visit(s). Discharge Date: Please see the following information for a summary of their discharge status. Subjective Subjective: My pain has increased since yesterday. I am not getting any better Pain L LB: Pain Intensity (Out of 10): 5 Overall Improvement % Improvement: 10 Objective Objective/Function: LBP ranges from 5-9/10 No change in LE radiculopathy Pt is I with HEP Goals Goal 1:: Patient will report participation in home exercise program activities a minimum of 5 days per week, as adjunct to skilled physical therapy intervention in preparation for independent home management upon discharge. Goal Progress: Goal Met Goal 2:: Patient will report an increase of 9 points on the LEFS to show minimal clinical significant difference on patients functional outcome measure. Goal Progress: Progressing Goal 3:: Patient will maintain proper posture t/o tx session to demo increased core s/s Goal Progress: Not observed Goal 4:: Patient will report no radicular s/s down the left leg for 1 week to ease ADL's Goal Progress: Not Progressing Plan Plan: Discontinue to HEP D/C Information d/c sentence: If there are questions or concerns regarding this patient's physical therapy, please feel free to call me at [phone]. Thank you for the referral of this patient. Sincerely, Sean Moulton, PT, ATC Balance/Gait/Functional tests Balance/Special Test Scores Lower Extremity Functional Score: 35 Improvement % Improvement: 10
== END 2023-06-16 14:24 | disposition home or self-care (01) ==
LOC: PT 12:30
PROVIDERS: PCP Nurse Practitioner Family; Referring Provider Anesthesiology; Visit Provider Anesthesiology
DX: M48.061 Spinal stenosis, lumbar region without neurogenic claudication (principal)
CPT/HCPCS: 97110; 97162; 97164

== ENCOUNTER 2023-09-27 13:00 | Outpatient (RCR) | payer MEDICARE, OTHER, SELFPAY ==
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
--- NOTE | 2023-09-27 13:27 | HP.PTDCSUM ---
Discharge Summary D/C summary: It has been my pleasure to treat SYD BARNETT referred by Dr. Mukesh Gutierrez MD, with the diagnosis of PAIN IN LEFT Knee for a total of 9 visit(s). Discharge Date: Please see the following information for a summary of their discharge status. Subjective Subjective: Doing well ready for d/c Plan to get injection for back and knee Plan to go golfing Pain Left Knee: Pain Intensity (Out of 10): 0 Overall Improvement % Improvement: 75 Objective Objective/Function: POSTURE: mild forward posture NEURO: denies paresthesia/tingling PALPATION : absent FLEXABLITY: mild hamstring tightness GAIT: reciprocal pattern no limping AROM: 0-130 degrees supine flexion MMT: ( peak force) quads 49.1 ,hamstrings 39.1 ,hip fqerlym26.8 ,hip abd 28.3 STAIRS: alternating with rails Goals Goal 1:: Patient to be I with HEP for knee Goal Progress: Goal Met Goal 2:: Patient to improve peak force quads/hams/hip by 5-10 # to improve strength and gait Goal Progress: Goal Met Goal 3:: Patient to demonstrate 50% improvement with decrease pain and improved function. Goal Progress: Goal Met Goal 4:: Patient to improve LFES score by 5 points to improve QOL Goal Progress: Goal Met Goal 5:: Patient to normalize gait with antalgic gait Plan Plan: D/C D/C Information d/c sentence: If there are questions or concerns regarding this patient's physical therapy, please feel free to call me at [phone]. Thank you for the referral of this patient. Sincerely, Jeremy Mayorga, PT, Cert MDT, OCS Balance/Gait/Functional tests Balance/Special Test Scores Lower Extremity Functional Score: 66 Improvement % Improvement: 75
== END 2023-09-27 13:59 | disposition home or self-care (01) ==
LOC: PT 13:00
PROVIDERS: PCP Nurse Practitioner Family; Referring Provider Anesthesiology; Visit Provider Anesthesiology
DX: M25.562 Pain in left knee (principal)
CPT/HCPCS: 97110; 97162; 97530

== ENCOUNTER → 2023-12-30 | Outpatient (CLI) | payer MEDICARE, OTHER, SELFPAY ==
--- NOTE | 2023-12-30 12:45 | CDU_ITS ---
Reason For Study: Carotid stenosis Rt. Velocities/BP Lt. Velocities/BP Prox CCA 35.2/8.8 cm/sec. Prox CCA 69.1/14.2 cm/sec. Mid CCA 40.1/6.6 cm/sec. Mid CCA 68/14.2 cm/sec. Dist CCA 47.2/11.6 cm/sec. Dist CCA 71.3/9.8 cm/sec. Prox ICA 57/16.4 cm/sec. Prox ICA 83.3/21.2 cm/sec. Mid ICA 105.8/12.6 cm/sec. Mid ICA 132.6/26.7 cm/sec. Dist ICA 89.3/18.1 cm/sec. Dist ICA 105.2/26.7 cm/sec. Rt. ICA/CCA = 2.64. Lt. ICA/CCA = 1.95. Prox ECA 8.9 cm/sec. Prox ECA 195.9/19.7 cm/sec. Rt. Vert. 59.2/13.1 cm/sec. Lt. Vert. 65/10.2 cm/sec. Right Extracranial There is homogeneous, smooth atherosclerotic plaque noted in the right common carotid artery. There is heterogeneous, smooth atherosclerotic plaque noted in the right internal carotid artery. There is heterogeneous, irregular atherosclerotic plaque noted in the right external carotid artery. Retrograde flow noted at the ECA distal. Antegrade flow is noted in the right vertebral artery. Left Extracranial There is heterogeneous, irregular atherosclerotic plaque noted in the left common carotid artery. There is heterogeneous, irregular atherosclerotic plaque noted in the left internal carotid artery. The atherosclerotic plaque causes acoustic shadowing. There is heterogeneous, irregular atherosclerotic plaque noted in the left external carotid artery. Antegrade flow is noted in the left vertebral artery. Procedure Carotid Duplex 44536. This is a Carotid Duplex examination using B-mode, color flow and specral Doppler. Exam performed in department. VL/Carotid Duplex Ultrasound Interpretation Summary Widely patent postoperative changes of the right carotid bulb and proximal inte rnal carotid artery with less than 50% stenosis of the internal carotid Less than 50% stenosis right external carotid although with retrograde flow not ed distally. Irregular calcific plaque with shadowing at the proximal left internal carotid artery with less than 50% stenosis Less than 50% stenosis left external carotid artery but close to that range Patent antegrade vertebrals bilaterally No advancement of disease since the previous examination of December 25, 2022 Ordering Physician: Guillaume Hancock Referring Physician: Trinity Coronado Performed By: Bibiana Ron RVT
== END | disposition home or self-care (01) ==
LOC: CVS 12:45
PROVIDERS: PCP Nurse Practitioner Family; Referring Provider Surgery; Visit Provider Surgery
DX: I65.22 Occlusion and stenosis of left carotid artery (principal); Z98.890 Other specified postprocedural states
CPT/HCPCS: 93880

== ENCOUNTER → 2024-07-10 | Outpatient (CLI) | payer MEDICARE, OTHER, SELFPAY ==
[2024-07-10 12:16] LABS: Absolute Lymphocyte Count 2.14 X10^3/uL (0.83-4.51); Absolute Neutrophil Count 6.9 X10^3/uL (2.0-7.7); Basophil# 0.07 X10^3/uL; Basophil% 0.7 % (0-1); Eosinophil# 0.04 X10^3/uL; Eosinophils% 0.4 % (0-5); Hematocrit 39.9 % (40-54); Hemoglobin 12.7 g/dL (13.0-16.5); Lymphocyte # 2.14 X10^3/ul (0.83-4.51); Lymphocyte % 21.5 % (19-41); Mean Corp Hgb Conc 31.8 g/dL (32-36); Mean Corpuscular Hgb 30.3 pg (27.0-32.0); Mean Corpuscular Volume 95.2 fL (80-94); Mean Platelet Vol. 11.6 fl (6.2-12.0); Monocyte# 0.77 X10^3/uL; Monocyte% 7.7 % (0-10); NRBC Flagged by Analyzer 0 % (0-5); Neutrophil # 6.91 X10^3/uL (2.7-7.7); Neutrophil % 69.3 % (47-70); Platelet Count 349 K/mm3 (150-450); RBC Distribution Width CV 12.3 % (11.6-14.6); Red Blood Count 4.19 M/mm3 (4.6-6.2)
[2024-07-10 12:43] LABS: AST(SGOT) 13 U/L (15-37); Alanine Aminotransfer ALT/SGPT 25 U/L (16-61); Albumin, Serum 3.6 g/dL (3.2-5.0); Alkaline Phosphatase 43 U/L (45-117); Anion Gap 6 (5-15); BUN 37 mg/dL (7-18); BUN/Creat Ratio 18.9 RATIO (10-20); Calcium,Total 9.9 mg/dL (8.5-10.1); Chloride 110 mmol/L (98-107); Cholesterol 156 mg/dL (200); Creatinine, Serum 1.96 mg/dL (0.70-1.30); EST Glomerular Filtration Rate 35 mL/min (>60); Est Glom Filt Rate - Afr Amer 43 mL/min (>60); Globulin 3.6 g/dL (2.2-4.2); Glucose 124 mg/dL (74-106); High Density Lipoprotein 49 mg/dL; PSA,Total - Annual Screen 1.03 ng/mL (0.00-4.00); Potassium 5.4 mmol/L (3.5-5.1); Protein, Total 7.2 g/dL (6.4-8.2); Sodium Level 139 mmol/L (136-145); Triglycerides 139 mg/dL; Very Low Density Lipoprotein 28 mg/dL (5-40)
[2024-07-10 18:36] LABS: Vitamin D,25 Hydroxy 78.9 ng/mL
== END | disposition home or self-care (01) ==
LOC: BFHLAB 08:44
PROVIDERS: PCP Nurse Practitioner Family; Referring Provider Nurse Practitioner Family; Visit Provider Nurse Practitioner Family
DX: I12.9 Hypertensive chronic kidney disease with stage 1 through stage 4 chronic kidney disease, or unspecified chronic kidney disease (principal); N18.9 Chronic kidney disease, unspecified; E78.5 Hyperlipidemia, unspecified; E55.9 Vitamin D deficiency, unspecified; Z12.5 Encounter for screening for malignant neoplasm of prostate
CPT/HCPCS: 36415; 80053; 80061; 82306; 84153; 85025; G0103

== ENCOUNTER 2024-09-19 12:21 | Outpatient (CLI) | payer MEDICARE, OTHER, SELFPAY ==
--- NOTE | 2024-09-19 12:27 | MRI_ITS ---
PROCEDURE: Noncontrast MRI of the lumbar spine. REASON FOR EXAM: Back pain. No history of prior lumbar spine surgery. TECHNIQUE: Multiplanar, multisequence MRI images of the lumbar spine were obtained without IV contrast. COMPARISON: Lumbar spine radiographs 09/15/2024. Prior lumbar spine MRI 04/28/2023. FINDINGS: The study assumes a presence of 5 lumbar type, [id number] vertebral bodies. There is mild rightward convex curvature of the mid lumbar spine on the coronal localizer images. Similar grade 1 retrolisthesis of L3 relative to L4 and L4 relative to L5 compared to 04/28/2023. No acute lumbar vertebral body fracture or abnormal marrow replacement process. There are worsened reactive endplate changes at the L2-3 and L3-4 levels. The conus terminates at T12-L1. The included lower spinal cord and lower thoracic intervertebral disc spaces are unremarkable. The included upper sacrum and SI joints are intact. Included retroperitoneal and paraspinal soft tissues show no specific abnormality. L1-2: No focal disc herniation, significant central spinal canal, or neural foraminal narrowing. L2-3: There is severe degenerative disc disease with worsened reactive endplate changes compared to 04/28/2023. There is a diffuse disc bulge, which causes severe central spinal canal narrowing, progressed compared to the prior study. No focal disc herniation. Moderate bilateral neural foraminal narrowing, greatest on the left. Mild degenerative facet changes. L3-4: Severe degenerative disc disease at this level, progressed from the 2022 study. A diffuse disc bulge along with ligamentum flavum and facet hypertrophy causes severe central spinal canal narrowing, worsened compared to the previous study. No focal disc herniation. Moderate bilateral neural foraminal narrowing and moderate degenerative facet changes. L4-5: A diffuse disc bulge along with ligamentum flavum and facet hypertrophy causes severe central spinal canal narrowing, similar to minimally worse. Severe bilateral neural foraminal narrowing, greatest on the right. Moderate degenerative facet changes. L5-S1: There is an asymmetric right disc bulge causing mild right central spinal canal narrowing, slightly progressed from the previous study. No focal disc herniation. Severe bilateral neural foraminal narrowing and moderate degenerative facet changes. MRI/Spine Lumbar (Routine) IMPRESSION: No acute bony abnormality of the lumbar spine. Progressed extensive multilevel degenerative disc and facet disease in the lumb ar spine as described level by level above. Severe central spinal canal narrowing at the L2-3 through L4-5 levels. Multilevel neural foraminal narrowing and degenerative facet changes as describ ed above. Reading Location: [facility]
== END 2024-09-19 23:59 | disposition home or self-care (01) ==
PROVIDERS: PCP Nurse Practitioner Family; Referring Provider Orthopaedic Surgery Orthopaedic Surgery of the Spine; Visit Provider Orthopaedic Surgery Orthopaedic Surgery of the Spine
DX: M48.062 Spinal stenosis, lumbar region with neurogenic claudication (principal)
CPT/HCPCS: 72148

== ENCOUNTER → 2024-11-09 | Outpatient (CLI) | payer MEDICARE, OTHER, SELFPAY ==
[2024-11-09 14:13] LABS: Anion Gap 10 (5-15); BUN 25 mg/dL (4-19); BUN/Creat Ratio 12.8 RATIO (10-20); Calcium,Total 9.4 mg/dL (7.6-11.0); Carbon Dioxide 21.6 mmol/L (21.0-32.0); Chloride 107 mmol/L (98-108); Creatinine, Serum 1.91 mg/dL (0.70-1.20); EST Glomerular Filtration Rate 35 (>60); Glucose 195 mg/dL (70-99); Sodium Level 138 mmol/L (133-145)
== END | disposition home or self-care (01) ==
LOC: BFHLAB 10:30
PROVIDERS: PCP Nurse Practitioner Family; Visit Provider Nurse Practitioner Family
DX: N18.9 Chronic kidney disease, unspecified (principal); E87.5 Hyperkalemia
CPT/HCPCS: 36415; 80048

== ENCOUNTER → 2024-11-13 | Outpatient (CLI) | payer MEDICARE, OTHER, SELFPAY ==
[2024-11-13 13:18] LABS: Anion Gap 14 (5-15); BUN 46 mg/dL (4-19); BUN/Creat Ratio 17.9 RATIO (10-20); Calcium,Total 9.6 mg/dL (7.6-11.0); Carbon Dioxide 22.5 mmol/L (21.0-32.0); Chloride 100 mmol/L (98-108); Creatinine, Serum 2.57 mg/dL (0.70-1.20); EST Glomerular Filtration Rate 25 (>60); Glucose 158 mg/dL (70-99); Potassium 5.1 mmol/L (3.3-5.1); Sodium Level 136 mmol/L (133-145)
== END | disposition home or self-care (01) ==
LOC: BFHLAB 09:32
PROVIDERS: PCP Nurse Practitioner Family; Visit Provider Family Medicine
DX: E87.5 Hyperkalemia (principal)
CPT/HCPCS: 36415; 80048

== ENCOUNTER → 2024-11-22 | Outpatient (CLI) | payer MEDICARE, OTHER, SELFPAY ==
[2024-11-22 16:35] LABS: Anion Gap 14 (5-15); BUN 34 mg/dL (4-19); BUN/Creat Ratio 16.2 RATIO (10-20); Calcium,Total 9.5 mg/dL (7.6-11.0); Carbon Dioxide 19.4 mmol/L (21.0-32.0); Chloride 110 mmol/L (98-108); Creatinine, Serum 2.09 mg/dL (0.70-1.20); EST Glomerular Filtration Rate 32 (>60); Glucose 99 mg/dL (70-99); Potassium 4.7 mmol/L (3.3-5.1); Sodium Level 143 mmol/L (133-145)
== END | disposition home or self-care (01) ==
PROVIDERS: PCP Nurse Practitioner Family; Referring Provider Family Medicine; Visit Provider Family Medicine
DX: I10 Essential (primary) hypertension (principal); E87.5 Hyperkalemia
CPT/HCPCS: 36415; 80048

== ENCOUNTER 2024-11-27 12:54 | Inpatient (IN) | payer MEDICARE, OTHER, SELFPAY ==
--- NOTE | 2024-11-02 12:14 | EKG12_ITS ---
Test Reason : PRE OP Blood Pressure : */* mmHG Vent. Rate : 69 BPM Atrial Rate : 69 BPM P-R Int : 140 ms QRS Dur : 134 ms QT Int : 426 ms P-R-T Axes : 20 -47 101 degrees QTcB Int : 456 ms Normal sinus rhythm Left axis deviation Left bundle branch block Abnormal ECG Confirmed by DILIA SABA, MEHDI ([id number]), editorial specialist MEREDITH ABDULLAHI ([id number]) on 11/03/2024 7:00:29 AM Referred By: Bill Colon Confirmed By: MEHDI DOBBS MD
[2024-11-02 13:09] LABS: Absolute Lymphocyte Count 1.65 X10^3/uL (0.83-4.51); Absolute Neutrophil Count 3.8 X10^3/uL (2.0-7.7); Basophil# 0.13 X10^3/uL; Eosinophil# 0.27 X10^3/uL; Eosinophils% 4.2 % (0-5); Hematocrit 39.2 % (40-54); Hemoglobin 12.9 g/dL (13.0-16.5); Lymphocyte # 1.65 X10^3/ul (0.83-4.51); Lymphocyte % 25.8 % (19-41); Mean Corp Hgb Conc 32.9 g/dL (32-36); Mean Corpuscular Hgb 31.3 pg (27.0-32.0); Mean Corpuscular Volume 95.1 fL (80-94); Mean Platelet Vol. 11.3 fl (6.2-12.0); Monocyte# 0.57 X10^3/uL; Monocyte% 8.9 % (0-10); NRBC Flagged by Analyzer 0 % (0-5); Neutrophil # 3.75 X10^3/uL (2.7-7.7); Neutrophil % 58.8 % (47-70); Platelet Count 323 K/mm3 (150-450); RBC Distribution Width CV 12.6 % (11.6-14.6); RBC Distribution Width SD 43.7 fl (35.1-43.9); Red Blood Count 4.12 M/mm3 (4.6-6.2); White Blood Count 6.4 K/mm3 (4.4-11.0)
[2024-11-02 14:33] LABS: Hemoglobin A1c 5.8 % (<=5.6)
[2024-11-02 14:52] LABS: HIV Nonreactive (Nonreactive); Hepatitis B Surface Antibody REAC; Hepatitis C Antibody Nonreactive (Nonreactive); Magnesium 2.2 mg/dL (1.5-2.2)
[2024-11-02 15:08] LABS: Anion Gap 13 (5-15); BUN 33 mg/dL (4-19); BUN/Creat Ratio 13.9 RATIO (10-20); Calcium,Total 9.6 mg/dL (7.6-11.0); Carbon Dioxide 20.3 mmol/L (21.0-32.0); Chloride 108 mmol/L (98-108); Creatinine, Serum 2.37 mg/dL (0.70-1.20); EST Glomerular Filtration Rate 27 (>60); Glucose 104 mg/dL (70-99); Potassium 6.1 mmol/L (3.3-5.1); Sodium Level 141 mmol/L (133-145)
--- NOTE | 2024-11-02 16:27 | PAT.ANE_ITS ---
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 When Was Last Pacemaker Check QUESTION #4 FULL TEXT: You/Your Family Experience fever (hyperthermia) with Anesthesia Last Oral Intake Last Oral intake: Last Oral Intake NPO since Meds taken in AM with sips of water? Meds patient instructed to take am of surgery PONV PONV - application packaging specialist: PONV - application packaging specialist Female No 10/31/24 09:58 HX of Motion Sickness No 10/31/24 09:58 HX of N/V After Surgery No 10/31/24 09:58 Non-Smoker Yes 10/31/24 09:58 Duration of Surgery greater Yes 10/31/24 09:58 than 60 minutes Number of Risk Factors 2 10/31/24 09:58 PONV Score Moderate Risk 10/31/24 09:58 Height & Weight Height & Weight: Anesthesia: Height & Weight Height 5 ft 5 in 04/05/23 13:14 Respiratory Assessment Respiratory Assessment - application packaging specialist: Respiratory Tract Infection Hx - application packaging specialist Hx Respiratory Tract Infection No 10/31/24 09:58 STOP Sleep Apnea STOP Sleep Apnea - application packaging specialist: STOP Sleep Apnea - application packaging specialist Hx Hypertension Yes: CONTROLLED WITH MED 10/31/24 09:58 Hx Sleep Apnea No 10/31/24 09:58 CPAP BIPAP Do you snore loudly (louder No 10/31/24 09:58 than talking or can be heard Do you often feel tired/ No 10/31/24 09:58 fatigued/ sleepy during daytime? Has anyone observed you stop No 10/31/24 09:58 breathing during sleep? STOP Results Negative 10/31/24 09:58 QUESTION #5 FULL TEXT : Do you snore loudly (louder than talking or can be heard through closed doors)? 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 Specify any problems Hx of Preganancy in last 3 N/A 10/31/24 09:58 Months Nurse Filling Out Transfusion NBUCHER 10/31/24 09:58 & Questions: Date: 10/31/24 10/31/24 09:58 Time: 10:00 10/31/24 09:58 Patient unable to answer at this time (ie. confused, unrespo /Reproduction History /Reproductive History - application packaging specialist: /Reproductive Hx- application packaging specialist Hx Now No 10/31/24 09:58 Gestational Age (in weeks): EDC: Hx Hx Para Hx Section SAB No 10/31/24 09:58 [facility] Medical History (Updated 10/31/24 @ 10:04 by Mariia Quevedo) Wears glasses Wears dentures BPH (benign prostatic hyperplasia) Arthritis Prostate disease Low iron History of diverticulitis Heartburn Former smoker Leg cramps History of echocardiogram Hypertrophic scar Carotid stenosis, left Sebaceous cyst Amaurosis fugax of right eye Sciatica Hyperlipidemia Osteoarthritis Hemorrhoid GERD (gastroesophageal reflux disease) HTN (hypertension) Diabetes Carotid stenosis Home Medications ?Medication ?Instructions ?Recorded ?Last Taken ?Type aspirin 81 mg tablet,delayed 81 mg PO DAILY@0800 heart health 04/16/17 11/29/17 History release glimepiride 2 mg tablet 2 mg PO BREAKFAST dm 7 Unknown History hydrochlorothiazide 25 mg tablet 25 mg PO DAILY bp Unknown History metformin 1,000 mg tablet 1,000 mg PO BID dm 04/16/17 Unknown History tamsulosin 0.4 mg capsule 0.4 mg PO QHS bph 04/16/17 U nknown History cholecalciferol (vitamin D3) 25 25 mcg PO DAILY SUPPLE MENT 04/05/23 Unknown History mcg (1,000 unit) capsule zinc acetate 25 mg (zinc) capsule 50 mg PO DAILY SUPPL EMENT 04/05/23 Unknown History ascorbic acid (vitamin C) 500 mg 500 mg PO DAILY SUPPL EMENT 09/15/24 Unknown History capsule ferrous sulfate 325 mg (65 mg 325 mg PO QDAY SUPPLEMEN T 09/15/24 Unknown History iron) tablet (Feosol) gabapentin 300 mg capsule 300 mg PO QHS PAIN 10/31/24 Unknown History lisinopril 40 mg tablet 40 mg PO DAILY HTN 10/31/24 Unknown History Allergy/AdvReac Type Severity Reaction Status Date / Time tetanus and diphtheria Allergy Rash Verified 10/31/24 09:54 toxoids Ishqqec-CHE-GjC Reductase AdvReac Other Verified 10/31/24 09:54 Inhibitor (Umwltko-Dzr-Dsc Reductase Inhibitor) Family History Father Diabetes Heart disease Myocardial infarction Mother CAD (coronary artery disease) Arthritis Surgical History History of right-sided carotid endarterectomy History of right-sided carotid endarterectomy (~11/2017) History of umbilical hernia S/P ventral herniorrhaphy S/P inguinal hernia repair S/P colonoscopy Social History Smoking Status: Former smoker Audit: Pertinent Findings Pertinent Findings EKG Perinent findings: 11/26/2017. Sinus bradycardia at 56 bpm. Poor R wave progression Echo (EF%) pertinent findings: March 14, 2021. Ejection fraction 65%. Mild aortic stenosis. Recommendation Anesthesia Recommendation Anesthesia recommendation: OPTIMIZED for anesthesia (Patient has mild aortic stenosis on echo. Avoid increased heart rates and decreased blood pressures. Phenylephrine is drug of choice in the situation of hypotension.)
--- NOTE | 2024-11-03 10:49 | PAT.ANESEVAL ---
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 When Was Last Pacemaker Check QUESTION #4 FULL TEXT: You/Your Family Experience fever (hyperthermia) with Anesthesia Last Oral Intake Last Oral intake: Last Oral Intake NPO since Meds taken in AM with sips of water? 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 coordinator Female No 10/31/24 09:58 HX of Motion Sickness No 10/31/24 09:58 HX of N/V After Surgery No 10/31/24 09:58 Non-Smoker Yes 10/31/24 09:58 Duration of Surgery greater Yes 10/31/24 09:58 than 60 minutes Number of Risk Factors 2 10/31/24 09:58 PONV Score Moderate Risk 10/31/24 09:58 Height & Weight Height & Weight: Anesthesia: Height & Weight Height 5 ft 5 in 04/05/23 13:14 Respiratory Assessment Respiratory Assessment - technical coordinator: Respiratory Tract Infection Hx - technical coordinator Hx Respiratory Tract Infection No 10/31/24 09:58 STOP Sleep Apnea STOP Sleep Apnea - technical coordinator: STOP Sleep Apnea - technical coordinator Hx Hypertension Yes: CONTROLLED WITH MED 10/31/24 09:58 Hx Sleep Apnea No 10/31/24 09:58 CPAP BIPAP Do you snore loudly (louder No 10/31/24 09:58 than talking or can be heard Do you often feel tired/ No 10/31/24 09:58 fatigued/ sleepy during daytime? Has anyone observed you stop No 10/31/24 09:58 breathing during sleep? STOP Results Negative 10/31/24 09:58 QUESTION #5 FULL TEXT : Do you snore loudly (louder than talking or can be heard through closed doors)? 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 Specify any problems Hx of Preganancy in last 3 N/A 10/31/24 09:58 Months Nurse Filling Out Transfusion NBUCHER 10/31/24 09:58 & Questions: Date: 10/31/24 10/31/24 09:58 Time: 10:00 10/31/24 09:58 Patient unable to answer at this time (ie. confused, unrespo /Reproduction History /Reproductive History - technical coordinator: /Reproductive Hx- technical coordinator Hx Now No 10/31/24 09:58 Gestational Age (in weeks): EDC: Hx Hx Para Hx Section SAB No 10/31/24 09:58 [facility] Medical History (Updated 10/31/24 @ 10:04 by Mariia Quevedo) Wears glasses Wears dentures BPH (benign prostatic hyperplasia) Arthritis Prostate disease Low iron History of diverticulitis Heartburn Former smoker Leg cramps History of echocardiogram Hypertrophic scar Carotid stenosis, left Sebaceous cyst Amaurosis fugax of right eye Sciatica Hyperlipidemia Osteoarthritis Hemorrhoid GERD (gastroesophageal reflux disease) HTN (hypertension) Diabetes Carotid stenosis Home Medications ?Medication ?Instructions ?Recorded ?Last Taken ?Type aspirin 81 mg tablet,delayed 81 mg PO DAILY@0800 heart health 04/16/17 11/29/17 History release glimepiride 2 mg tablet 2 mg PO BREAKFAST dm 04/16/17 Unknown History hydrochlorothiazide 25 mg tablet 25 mg PO DAILY bp 04/16/17 Unknown History metformin 1,000 mg tablet 1,000 mg PO BID dm 04/16/17 Unknown History tamsulosin 0.4 mg capsule 0.4 mg PO QHS bph 04/16/17 Unknown History cholecalciferol (vitamin D3) 25 25 mcg PO DAILY SUPPLEMENT 04/05/23 Unknown History mcg (1,000 unit) capsule zinc acetate 25 mg (zinc) capsule 50 mg PO DAILY SUPPLEMENT 04/05/23 Unknown History ascorbic acid (vitamin C) 500 mg 500 mg PO DAILY SUPPLEMENT 09/15/24 Unknown History capsule ferrous sulfate 325 mg (65 mg 325 mg PO QDAY SUPPLEMENT 09/15/24 Unknown History iron) tablet (Feosol) gabapentin 300 mg capsule 300 mg PO QHS PAIN 10/31/24 Unknown History lisinopril 40 mg tablet 40 mg PO DAILY HTN 10/31/24 Unknown History Allergy/AdvReac Type Severity Reaction Status Date / Time tetanus and diphtheria Allergy Rash Verified 10/31/24 09:54 toxoids Atvhbwp-JGE-FpM Reductase AdvReac Other Verified 10/31/24 09:54 Inhibitor (Tnecdxe-Hul-Vxg Reductase Inhibitor) Family History Father Diabetes Heart disease Myocardial infarction Mother CAD (coronary artery disease) Arthritis Surgical History History of right-sided carotid endarterectomy History of right-sided carotid endarterectomy (~11/2017) History of umbilical hernia S/P ventral herniorrhaphy S/P inguinal hernia repair S/P colonoscopy Social History Smoking Status: Former smoker Audit: Pertinent Findings HISTORY of Pertinent Findings History of Pertinent Findings: EKG Pertinent Findings EKG Perinent findings 11/26/2017. Sinus bradycardia 11/02/24 16:32 at 56 bpm. Poor R wave progression Echo Pertinent Findings Echo (EF%) pertinent findings March 14, 2021. Ejection 11/02/24 16:32 fraction 65%. Mild aortic stenosis. Pertinent Findings Additional pertinent findings: Potassium 6.1 mmol/L. 11/02/2024 lab. This should be corrected prior to procedure. Recommendation Anesthesia Recommendation Anesthesia recommendation: Anesthesia NOT approved
[2024-11-04 06:27] LABS: Hepatitis A AB, Total Positive (Negative)
--- NOTE | 2024-11-14 16:06 | PAT.ANESEVAL ---
Pre-Assessment Diagnosis/Proposed Procedure Planned Operative Procedure(s): 360 Lumbar Fusion L2-3, L3-4 and L4-5 Anesthesia History Anesthesia History - attending radiologist: Anesthesia History - attending radiologist Hx Hospitalization No 10/31/24 09:58 Any Problems With Anesthesia No 10/31/24 09:58 Cholinesterase deficiency No 10/31/24 09:58 You/Your Family Experience No 10/31/24 09:58 fever (hyperthermia) with Relationship Recent Exposure to Contagious Disease Does patient have nerve No 10/31/24 09:58 stimulator Patient instructed to have device shut off --Does patient have Pacemaker or ICD? When Was Last Pacemaker Check QUESTION #4 FULL TEXT: You/Your Family Experience fever (hyperthermia) with Anesthesia Last Oral Intake Last Oral intake: Last Oral Intake NPO since Meds taken in AM with sips of water? Meds patient instructed to take am of surgery PONV PONV - attending radiologist: PONV - attending radiologist Female No 10/31/24 09:58 HX of Motion Sickness No 10/31/24 09:58 HX of N/V After Surgery No 10/31/24 09:58 Non-Smoker Yes 10/31/24 09:58 Duration of Surgery greater Yes 10/31/24 09:58 than 60 minutes Number of Risk Factors 2 10/31/24 09:58 PONV Score Moderate Risk 10/31/24 09:58 Height & Weight Height & Weight: Anesthesia: Height & Weight Height 5 ft 5 in 04/05/23 13:14 Respiratory Assessment Respiratory Assessment - attending radiologist: Respiratory Tract Infection Hx - attending radiologist Hx Respiratory Tract Infection No 10/31/24 09:58 STOP Sleep Apnea STOP Sleep Apnea - attending radiologist: STOP Sleep Apnea - attending radiologist Hx Hypertension Yes: CONTROLLED WITH MED 10/31/24 09:58 Hx Sleep Apnea No 10/31/24 09:58 CPAP BIPAP Do you snore loudly (louder No 10/31/24 09:58 than talking or can be heard Do you often feel tired/ No 10/31/24 09:58 fatigued/ sleepy during daytime? Has anyone observed you stop No 10/31/24 09:58 breathing during sleep? STOP Results Negative 10/31/24 09:58 QUESTION #5 FULL TEXT : Do you snore loudly (louder than talking or can be heard through closed doors)? 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 Specify any problems Hx of Preganancy in last 3 N/A 10/31/24 09:58 Months Nurse Filling Out Transfusion NBUCHER 10/31/24 09:58 & Questions: Date: 10/31/24 10/31/24 09:58 Time: 10:00 10/31/24 09:58 Patient unable to answer at this time (ie. confused, unrespo /Reproduction History /Reproductive History - attending radiologist: /Reproductive Hx- attending radiologist Hx Now No 10/31/24 09:58 Gestational Age (in weeks): EDC: Hx Hx Para Hx Section SAB No 10/31/24 09:58 [facility] Medical History Wears glasses Wears dentures BPH (benign prostatic hyperplasia) Arthritis Prostate disease Low iron History of diverticulitis Heartburn Former smoker Leg cramps History of echocardiogram Hypertrophic scar Carotid stenosis, left Sebaceous cyst Amaurosis fugax of right eye Sciatica Hyperlipidemia Osteoarthritis Hemorrhoid GERD (gastroesophageal reflux disease) HTN (hypertension) Diabetes Carotid stenosis Home Medications ?Medication ?Instructions ?Recorded ?Last Taken ?Type aspirin 81 mg tablet,delayed 81 mg PO DAILY@0800 heart health 04/16/17 11/29/17 History release glimepiride 2 mg tablet 2 mg PO BREAKFAST dm 04/16/17 Unknown History hydrochlorothiazide 25 mg tablet 25 mg PO DAILY bp 04/16/17 Unknown History metformin 1,000 mg tablet 1,000 mg PO BID dm 04/16/17 Unknown History tamsulosin 0.4 mg capsule 0.4 mg PO QHS bph 04/16/17 Unknown History cholecalciferol (vitamin D3) 25 25 mcg PO DAILY SUPPLEMENT 04/05/23 Unknown History mcg (1,000 unit) capsule zinc acetate 25 mg (zinc) capsule 50 mg PO DAILY SUPPLEMENT 04/05/23 Unknown History ascorbic acid (vitamin C) 500 mg 500 mg PO DAILY SUPPLEMENT 09/15/24 Unknown History capsule ferrous sulfate 325 mg (65 mg 325 mg PO QDAY SUPPLEMENT 09/15/24 Unknown History iron) tablet (Feosol) gabapentin 300 mg capsule 300 mg PO QHS PAIN 10/31/24 Unknown History lisinopril 40 mg tablet 40 mg PO DAILY HTN 10/31/24 Unknown History Allergy/AdvReac Type Severity Reaction Status Date / Time tetanus and diphtheria Allergy Rash Verified 11/03/24 13:07 toxoids Gomiixs-VFJ-YwL Reductase AdvReac Other Verified 11/03/24 13:07 Inhibitor (Sokeyur-Mhl-Npu Reductase Inhibitor) Family History Father Diabetes Heart disease Myocardial infarction Mother CAD (coronary artery disease) Arthritis Surgical History History of right-sided carotid endarterectomy History of right-sided carotid endarterectomy (~11/2017) History of umbilical hernia S/P ventral herniorrhaphy S/P inguinal hernia repair S/P colonoscopy Social History Smoking Status: Former smoker Audit: Pertinent Findings HISTORY of Pertinent Findings History of Pertinent Findings: EKG Pertinent Findings EKG Perinent findings 11/26/2017. Sinus bradycardia 11/02/24 16:32 at 56 bpm. Poor R wave progression Echo Pertinent Findings Echo (EF%) pertinent findings March 14, 2021. Ejection 11/02/24 16:32 fraction 65%. Mild aortic stenosis. Additional Pertinent Findings Additional pertinent findings Potassium 6.1 mmol/L. 11/03/24 10:53 2024 lab. This should be corrected prior to procedure . Pertinent Findings Additional pertinent findings: Repeat potassium on November 13, 2024 was 5.1. This is acceptable and we may proceed. Recommendation Anesthesia Recommendation Anesthesia recommendation: OPTIMIZED for anesthesia
[2024-11-27] VITALS (20 sets, daily range): BP systolic 133–175; BP diastolic 63–87; PULSE 87–116; RESP 16–18; TEMP 36.1–36.8; O2SAT 89–99; BMI 27.1
[2024-11-27] MEDS: Lactated Ringers 1,000 ML 15 ML IV (06:00)
[2024-11-27] MEDS: Magnesium 1 GM over 15 mins IV (06:05)
--- NOTE | 2024-11-27 06:30 | RAD_ITS ---
PROCEDURE: LUMBAR SPINE 2 OR 3 VIEWS 11/27/2024 REASON FOR EXAM: LUMBER 350 FUSION, L2-3, L3-4, L4-5 TECHNIQUE: Fluoroscopy with 18 spot views lumbar spine FINDINGS: Fluoroscopy time 144.8 seconds Cumulative dose 51.50 mGy Spot images with intervertebral disc spacers L2-3, L3-4 and L4-5 with posterior fusion and bilateral transpedicular screws L2, L4 and L5. Right lateral screw L2 and L4. Please see operative report for further detail. RAD/Lumbar Spine 2 or 3 Views IMPRESSION: Fluoroscopy with 18 spot views as above. Reading Location: [id number]
[2024-11-27] MEDS: Acetaminophen 500 MG Tablet 1000 MG PO ×3 (06:49→23:52)
[2024-11-27] MEDS: Insulin Lispro 100 UNIT/ML INSULN.PEN SC ×3 (06:50→21:58)
--- NOTE | 2024-11-27 07:04 | PCM.PRE.AN2 ---
ASA Classification* ASA Classification ASA Classification: 3 (Pleasant 79 y/o M wiht HTN, GERD, BPH, Former Smoker, CKD3, hx of left carotid endartectomy. ) Assessment & Plan Anesthesia* Anesthesia Assessment Anesthesia Assessment: Discussed sedation and/or anesthesia options, risks, benefits, and alternatives with patient/parents/legal guardian/POA. Questions invited. The patient/parents/legal guardian/POA seems to understand and agrees to proceed with anesthesia plan. Reviewed the physical assessment, medical history, allergy history and patient home medications list prior to surgery/procedure/anesthetic and documented any changes. Performed airway and anesthesia risk assessments. Anesthesia Type Anesthesia Type: General History Source History Obtained from:: Patient and Chart Anesthesia Focused Assessment* Temperature: 97.5 F Pulse Rate: 88 Blood Pressure: 165/63 Respiratory Rate: 16 Pulse Ox: 99 Oxygen Delivery Method: Room Air Airway Assessment Mouth opens: >3 cm Mallampati Score: II Teeth Condition: Intact Neck Range of motion (ROM): Full ROM Focused Labs Anesthesia Preop lab: CBC WBC 6.4 K/mm3 (4.4-11.0) 11/02/24 12:11/02/24 RBC 4.12 M/mm3 (4.6-6.2) L 11/02/24 12:11/02/24 Hgb 12.9 g/dL (13.0-16.5) L 11/02/24 12:11/02/24 Hct 39.2 % (40-54) L 11/02/24 12:11/02/24 Plt Count 323 K/mm3 (150-450) 11/02/24 12:11/02/24 CHEMISTRY Potassium 4.7 mmol/L (3.3-5.1) 11/22/24 12:38 11/22/24 Sodium 143 mmol/L (133-145) 11/22/24 12:11/22/24 Magnesium 2.2 mg/dL (1.5-2.2) 11/02/24 12:29 11/02/24 BUN 34 mg/dL (4-19) H 11/22/24 12:38 11/22/24 Creatinine 2.09 mg/dL (0.70-1.20) H 11/22/24 12:38 11/22/24 Glucose 99 mg/dL (70-99) 11/22/24 12:38 11/22/24 POC Glucose 134 mg/dL (70-110) H 12/01/17 08:11 12/01/17 TSH 2.52 uIU/mL (0.358-3.74) 01/19/23 13:33 01/19/23 COAG PT 13.3 SECONDS (11.7-14.9) 06/25/17 13:30 06/25/17 Pre-Assessment Diagnosis/Proposed Procedure Planned Operative Procedure(s): 360 Lumbar Fusion L2-3, L3-4 and L4-5 Anesthesia History 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 When Was Last Pacemaker Check QUESTION #4 FULL TEXT: You/Your Family Experience fever (hyperthermia) with Anesthesia Last Oral Intake Last Oral intake: Last Oral Intake NPO since 03:30 11/27/24 06:00 Meds taken in AM with sips of No 11/27/24 06:00 water? Meds patient instructed to take am of surgery PONV PONV - stereo equipment repairer: PONV - stereo equipment repairer Female No 10/31/24 09:58 HX of Motion Sickness No 10/31/24 09:58 HX of N/V After Surgery No 10/31/24 09:58 Non-Smoker Yes 10/31/24 09:58 Duration of Surgery greater Yes 10/31/24 09:58 than 60 minutes Number of Risk Factors 2 10/31/24 09:58 PONV Score Moderate Risk 10/31/24 09:58 Height & Weight Height & Weight: Anesthesia: Height & Weight Height 5 ft 5 in 11/27/24 06:00 Weight: 73.9 kg 11/27/24 06:00 Body Mass Index (BMI) 27.1 11/27/24 06:00 Respiratory Assessment Respiratory Assessment - stereo equipment repairer: Respiratory Tract Infection Hx - stereo equipment repairer Hx Respiratory Tract Infection No 10/31/24 09:58 STOP Sleep Apnea STOP Sleep Apnea - stereo equipment repairer: STOP Sleep Apnea - stereo equipment repairer Hx Hypertension Yes: CONTROLLED WITH MED 10/31/24 09:58 Hx Sleep Apnea No 10/31/24 09:58 CPAP BIPAP Do you snore loudly (louder No 10/31/24 09:58 than talking or can be heard Do you often feel tired/ No 10/31/24 09:58 fatigued/ sleepy during daytime? Has anyone observed you stop No 10/31/24 09:58 breathing during sleep? STOP Results Negative 10/31/24 09:58 QUESTION #5 FULL TEXT : Do you snore loudly (louder than talking or can be heard through closed doors)? 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 Specify any problems Hx of Preganancy in last 3 N/A 10/31/24 09:58 Months Nurse Filling Out Transfusion NBUCHER 10/31/24 09:58 & Questions: Date: 10/31/24 10/31/24 09:58 Time: 10:00 10/31/24 09:58 Patient unable to answer at this time (ie. confused, unrespo /Reproduction History /Reproductive History - stereo equipment repairer: /Reproductive Hx- stereo equipment repairer Hx Now No 10/31/24 09:58 Gestational Age (in weeks): EDC: Hx Hx Para Hx Section SAB No 10/31/24 09:58 Active Medications Active Medications: Current Medications Generic Name Dose Route Start Last Admin Trade Name Freq PRN Reason Stop Dose Admin Acetaminophen 1,000 mg 11/27/24 07:30 11/27/24 06:49 Acetaminophen 500 Mg Tablet PO 11/27/24 07:31 1,000 mg PREOP ONE Administration Cefazolin Sodium 2 gm/ Sodium 110 mls @ 150 mls/hr 11/27/24 07:30 Chloride IV 11/27/24 08:13 INTRAOP ONE Tranexamic Acid 1,000 mg/ 110 mls @ 440 mls/hr 11/27/24 07:30 Sodium Chloride IV 11/27/24 07:44 X1 ONE Tranexamic Acid 1,000 mg/ 110 mls @ 440 mls/hr 11/27/24 07:30 Sodium Chloride IV 11/27/24 07:44 X1 ONE Magnesium Sulfate 1 gm/ 102 mls @ 408 mls/hr 11/27/24 07:30 11/27/24 06:05 Dextrose IV 11/27/24 07:44 408 mls/hr INTRAOP ONE Administration Lactated Ringer's 1,000 mls @ 15 mls/hr 11/27/24 05:45 11/27/24 06:00 IV 15 mls/hr .Q48H LATANYA Administration Insulin Human Lispro 1 - 6 unit 11/27/24 07:30 11/27/24 06:50 Insulin Lispro 100 Unit/Ml Insuln.Pen SC 11/27/24 18:00 1 u Q4H PRN PRN Administration BG>/= 180, SEE PROTOCOL Protocol PFSH Medical History Wears glasses Wears dentures BPH (benign prostatic hyperplasia) Arthritis Prostate disease Low iron History of diverticulitis Heartburn Former smoker Leg cramps History of echocardiogram Hypertrophic scar Carotid stenosis, left Sebaceous cyst Amaurosis fugax of right eye Sciatica Hyperlipidemia Osteoarthritis Hemorrhoid GERD (gastroesophageal reflux disease) HTN (hypertension) Diabetes Carotid stenosis Home Medications ?Medication ?Instructions ?Recorded ?Last Taken ?Type aspirin 81 mg tablet,delayed 81 mg PO DAILY@0800 heart health 04/16/17 11/26/24 09:00 History release glimepiride 2 mg tablet 2 mg PO BREAKFAST dm 04/16/17 11/26/24 09:00 History hydrochlorothiazide 25 mg tablet 25 mg PO DAILY bp 04/16/17 11/26/24 09:00 History metformin 1,000 mg tablet 1,000 mg PO BID dm 04/16/17 11/26/24 19:30 History tamsulosin 0.4 mg capsule 0.4 mg PO QHS bph 04/16/17 11/26/24 22:30 History cholecalciferol (vitamin D3) 25 25 mcg PO DAILY SUPPLEMENT 04/05/23 11/26/24 09:00 History mcg (1,000 unit) capsule zinc acetate 25 mg (zinc) capsule 50 mg PO DAILY SUPPLEMENT 04/05/23 11/26/24 09:00 History ascorbic acid (vitamin C) 500 mg 500 mg PO DAILY SUPPLEMENT 09/15/24 11/26/24 09:00 History capsule ferrous sulfate 325 mg (65 mg 325 mg PO QDAY SUPPLEMENT 09/15/24 11/26/24 09:00 History iron) tablet (Feosol) gabapentin 300 mg capsule 300 mg PO QHS PAIN 10/31/24 11/25/24 22:30 History amlodipine 10 mg tablet 10 mg PO DAILY htn 11/27/24 11/26/24 09:00 History Allergy/AdvReac Type Severity Reaction Status Date / Time tetanus and diphtheria Allergy Rash Verified 11/27/24 06:27 toxoids Daypxbl-QPJ-UnZ Reductase AdvReac Other Verified 11/27/24 06:27 Inhibitor (Cbgwuvt-Nfe-Snb Reductase Inhibitor) Family History Father Diabetes Heart disease Myocardial infarction Mother CAD (coronary artery disease) Arthritis Surgical History History of right-sided carotid endarterectomy History of right-sided carotid endarterectomy (~11/2017) History of umbilical hernia S/P ventral herniorrhaphy S/P inguinal hernia repair S/P colonoscopy Social History Smoking Status: Former smoker Review of Systems (Anesthesia) ROS Narrative System reviewed and no additional complaints, except as documented. Physical Exam Const alert, oriented x3 and average body habitus Resp normal respiratory effort, normal air movement and clear to auscultation bilaterally Cardio regular rate, regular rhythm, no murmurs and diaphoretic
--- NOTE | 2024-11-27 07:13 | PCM.HP.BLA ---
History and Physical Date of Admission: 11/27/24 MR#: [id number] Acct: [id number] Name: SYD BARNETT Rep #: [id number] : 1945 Provider: Dr. Bill Colon MD Age/Sex: 79/M Location: [facility] [place] Status: Signed Intake Vital Signs 04/05/2313:14 Height 5 ft 5 in Intake Visit Reasons: lumbar spine Chief Complaint: lumbar spine Allergies tetanus and diphtheria toxoids Allergy (Verified 11/03/24 13:07) OycwIqpxocl-RXA-JqT Reductase Inhibitor (Psekuom-Ggg-Tms Reductase Inhibitor) Adverse Reaction (Verified 11/03/24 13:07) Other Medications ?Medication ?Instructions ?Recorded ?Confirmed ?Type aspirin 81 mg tablet,delayed 81 mg PO DAILY@0800 heart health 04/16/17 11/03/24 History release glimepiride 2 mg tablet 2 mg PO BREAKFAST dm 04/16/17 11/03/24 History hydrochlorothiazide 25 mg tablet 25 mg PO DAILY bp 04/16/17 11/03/24 History metformin 1,000 mg tablet 1,000 mg PO BID dm 04/16/17 11/03/24 History tamsulosin 0.4 mg capsule 0.4 mg PO QHS bph 04/16/17 11/03/24 History cholecalciferol (vitamin D3) 25 25 mcg PO DAILY SUPPLEMENT 04/05/23 11/03/24 History mcg (1,000 unit) capsule zinc acetate 25 mg (zinc) capsule 50 mg PO DAILY SUPPLEMENT 04/05/23 11/03/24 History ascorbic acid (vitamin C) 500 mg 500 mg PO DAILY SUPPLEMENT 09/15/24 11/03/24 History capsule ferrous sulfate 325 mg (65 mg 325 mg PO QDAY SUPPLEMENT 09/15/24 11/03/24 History iron) tablet (Feosol) gabapentin 300 mg capsule 300 mg PO QHS PAIN 10/31/24 11/03/24 History lisinopril 40 mg tablet 40 mg PO DAILY HTN 10/31/24 11/03/24 History Have you fallen in the past year?: No PFSH Medical History Wears glasses Wears dentures BPH (benign prostatic hyperplasia) Arthritis Prostate disease Low iron History of diverticulitis Heartburn Former smoker Leg cramps History of echocardiogram Hypertrophic scar Carotid stenosis, left Sebaceous cyst Amaurosis fugax of right eye Sciatica Hyperlipidemia Osteoarthritis Hemorrhoid GERD (gastroesophageal reflux disease) HTN (hypertension) Diabetes Carotid stenosis Surgical History History of right-sided carotid endarterectomy History of right-sided carotid endarterectomy (~11/2017) History of umbilical hernia S/P ventral herniorrhaphy S/P inguinal hernia repair S/P colonoscopy Family History Father Diabetes Heart disease Myocardial infarctionMother CAD (coronary artery disease) Arthritis Social History Smoking Status: Former smoker HPI lumbar spine Details: This documentation accurately reflects the service provided and the decisions made by me, Dr. Bill Cloon MD 11/03/24 1301. Part of today?s visit was documented by Rosenda ADAMS, acting as scribe. SYD BARNETT is a 79 year old M here today for pre-op lumbar spine dos: 11/14/24. 09/21/24: SYD BARNETT is a 79 year old M here today for lumbar spine followup. Patient notes that he continues to have lumbar spine pain. He notes that he has increased pain due to the weather. Patient denies any radiating pain or numbness or tingling. He had an MRI which is here for pain. Patient denies any recent injection with his most recent in June. He takes an aspirin or tylenol for pain. 09/15/24: SYD BARNETT is a 79 year old M here today for evaluation of ongoing lumbar spine pain. He has been seeing Dr. Gutierrez in pain management and had an ablation in March and L5-S1 Lumbar steroid injection in June. He reports these have no longer been helpful. He complains of low back pain that is worse on the left side. He is not able to stand or walk for long periods. He states he is not able to bend due to the pain. He denies numbness, tingling or radicular pain. He denies new injury to his low back. Patient states that his pain is worse now then it was in 2022. His pain is worse on the left side and radiates down the left leg. He is able to stand for 10-15 minutes before he starts having pain. Sitting or leaning forward does make the pain better. He does have a feeling of heaviness in his legs bilaterally. Ortho Exam General General: Yes no acute distress Neurologic: Yes alert and Yes oriented x3 Spine SPINE TESTING CERVICAL THORACIC LUMBAR Musculoskeletal Strength 0=absent - 5=normal Details: Examination the back shows midline paraspinal tenderness. Neurologic valuation of lower extremity shows 5 x 5 power in all muscles normal sensations in all dermatomes. There is no hyperreflexia. Coding Level of Care Code Off vis,est,level 4 Diagnoses Spinal stenosis of lumbar region with neurogenic claudication M48.062 Spondylolisthesis, lumbar region M43.16 Time Spent (min) 35 Assessment and Plan Assessment and Plan (1) Spinal stenosis of lumbar region with neurogenic claudication: Status: Acute (2) Spondylolisthesis, lumbar region: Status: Acute Plan Patient is here today for low back pain. Again reviewed previously done x-rays as well as recently done MRI. X-rays show degenerative scoliosis with concavity to the left. Multilevel disc height loss with disc degeneration and vacuum phenomena especially at L2-3. L2-3 and L3-4 show retrolisthesis with mild dynamic instability on flexion-extension views. MRI shows severe L2-3, L3-4 L4-5 central and lateral recess stenosis. L2-3 which shows moderate stenosis last year's MRI has now worsened enough to cause severe central stenosis. Explained to him the imaging findings in detail. I explained to patient that he does have stenosis of his lumbar spine which is the cause of of the heaviness feeling in his legs as well as when he leans forward and feels relief. I spoke with patient that the treatment options are physical therapy, injection or surgery. Patient has tried numerous epidural injections without much relief. His neurogenic claudication is worsening with time and is not able to walk distances. He believes his function is declining with time because of the claudication. He would like to proceed with surgical intervention. Surgical options were discussed including decompression versus decompression and fusion. L2-5 anterior and posterior fusion with indirect decompression was discussed in detail. All risk benefits and alternatives were discussed in detail. The risks include but are not limited to infection, bleeding, injury to nerves and vessels, ileus, vascular injury, visceral injury, DVT, pulm embolism, pneumonia, atelectasis, cardiopulmonary event, hardware failure, pseudoarthrosis, adjacent segment degeneration, nerve root injury, foot drop, persistent pain, persistent weakness and numbness, need for further surgery. Patient understands and agrees to proceed with surgery. Consent was signed.
[2024-11-27] MEDS: 0.9% Normal Saline (1000mL) 500 ML IV (07:30)
[2024-11-27] MEDS: Cefazolin 2 GM in 0.9% Normal Saline (100mL Bag) 100 ML IV ×3 (07:52→21:59)
[2024-11-27] MEDS: TRANEXAMIC ACID 1,000 MG in 0.9% Normal Saline (100mL Bag) 100 ML 440 MG IV ×2 (08:20→12:16)
[2024-11-27 09:20] LABS: Bedside Glucose 198 mg/dL (74-106)
[2024-11-27 10:04] LABS: Base Excess -5 mmol/L (-2 to +2); Bicarbonate 21.2 mmol/L (22-26); Blood Gas Specimen Type ART; Mode Not entered; O2 Delivery Device Not entered; PO2 187 mmHG (75-100); SITE Art Line; SO2 100 % (95-99); Total Carbon Dioxide 23 mmol/L; pCO2 43.9 mmHg (35-45); pH 7.29 (7.35-7.45)
[2024-11-27 10:29] LABS: Absolute Lymphocyte Count 1.51 X10^3/uL (0.83-4.51); Absolute Neutrophil Count 5.7 X10^3/uL (2.0-7.7); Basophil# 0.08 X10^3/uL; Eosinophils% 2.5 % (0-5); Hematocrit 29.6 % (40-54); Hemoglobin 10.2 g/dL (13.0-16.5); Lymphocyte # 1.51 X10^3/ul (0.83-4.51); Lymphocyte % 18.7 % (19-41); Mean Corp Hgb Conc 34.5 g/dL (32-36); Mean Corpuscular Hgb 31.7 pg (27.0-32.0); Mean Corpuscular Volume 91.9 fL (80-94); Mean Platelet Vol. 10.7 fl (6.2-12.0); Monocyte# 0.58 X10^3/uL; Monocyte% 7.2 % (0-10); NRBC Flagged by Analyzer 0 % (0-5); Neutrophil # 5.65 X10^3/uL (2.7-7.7); Neutrophil % 69.9 % (47-70); Platelet Count 249 K/mm3 (150-450); RBC Distribution Width CV 12.4 % (11.6-14.6); RBC Distribution Width SD 41.6 fl (35.1-43.9); Red Blood Count 3.22 M/mm3 (4.6-6.2); White Blood Count 8.1 K/mm3 (4.4-11.0)
[2024-11-27] MEDS: Albumin Human 25% (100 mL) 25 GM/100 ML BAG IV (10:39)
[2024-11-27 11:14] LABS: Anion Gap 10 (5-15); BUN 29 mg/dL (4-19); BUN/Creat Ratio 16.1 RATIO (10-20); Calcium,Total 8.2 mg/dL (7.6-11.0); Carbon Dioxide 20.1 mmol/L (21.0-32.0); Chloride 110 mmol/L (98-108); Creatinine, Serum 1.78 mg/dL (0.70-1.20); EST Glomerular Filtration Rate 39 (>60); Estimated Creatinine Clearance 32.15 ml/min (50-250); Glucose 137 mg/dL (70-99); Potassium 4.3 mmol/L (3.3-5.1); Sodium Level 140 mmol/L (133-145)
[2024-11-27 12:12] LABS: Base Excess -5 mmol/L (-2 to +2); Bicarbonate 21.2 mmol/L (22-26); Blood Gas Specimen Type ART; Mode SIMV; O2 Delivery Device Adult Vent; PIP 17; PO2 193 mmHG (75-100); RR 10; SITE Art Line; SO2 100 % (95-99); Total Carbon Dioxide 22 mmol/L; pCO2 39.4 mmHg (35-45); pH 7.34 (7.35-7.45)
[2024-11-27] MEDS: Ropivacaine 0.5% 30 ML Vial (12:33)
--- NOTE | 2024-11-27 13:05 | OP.PCM_ITS ---
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 Post-Operative Diagnosis: Same Surgery/Procedure Performed: L2-5 oblique lumbar interbody fusion local company tanker driver: Yes Calender Wind Up Helper: Betina James Tasks completed by sales and marketing assistant: Closing, Removing tissue, Hemostasis: Electrocautery and Retracting Type of Anesthesia: General RN Documented Start/Stop Times: Operation Date: 11/27/24 07:30 Case Time Into Pre-Op 11/27/24 05:36 Anesthesia Start 11/27/24 07:52 Into Room 11/27/24 07:52 Procedure Start 11/27/24 08:26 Procedure End 11/27/24 12:46 Anesthesia End 11/27/24 12:55 Out of Room 11/27/24 12:55 Procedure Start Time: 08:26 Procedure Stop Time: 12:46 Select all DRAINS/GRAFTS/IMPLANTS that apply: Graft Graft details: Allograft cancellous bone chips, autologous bone marrow aspirate and Implanted device Implanted device details: DePuy cougar lateral lumbar interbody cage?peek Estimated Blood Loss: 100 cc Specimen collected: No Description of surgery: Preoperative diagnosis: L2-3 and L3-4 retrolisthesis, 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 L2-3 anterolateral spinal fusion 15046 ? L3-4 anterolateral fusion 20741/51 ? L4-5 anterolateral fusion 43267/51 ? L2-3 insertion of cage 37986 ? L3-4 insertion of cage 54907/51 ? L4-5 insertion of cage 08336/51 ? Bone graft aspirate left iliac crest separate incision ? Allograft cancellous chips Attending Surgeon: Dr. Bill Colon Estimated blood loss: 100 mL Anesthesia: General Complications: None Indications: Patient is a 79-year-old pleasant gentleman who has had a long history of low back pain and left lower extremity radiation, difficulty walking distances. Xrays & MRI revealed L2-3, L3-4 retrolisthesis, L2-5 disc degeneration with stenosis. After undergoing a prolonged period of nonoperative treatment, the patient elected to undergo surgical decompression & fusion. All surgical options were discussed with the patient including anterior and posterior approaches. All risks and benefits associated with the procedure were explained to the patient. The risks include but are not limited to infection, bleeding, injury to nerves and vessels including major vessels like IVC and aorta, persistent paresthesia, persistent pain, dural tear, need for further procedures, adjacent segment degeneration, pseudoarthrosis, hardware failure, retrograde ejaculation, paralytic ileus, etc. Procedure: The patient was identified in the preoperative holding suite using Unique patient identifiers. Skin was marked, consent was reviewed, and all questions were answered. The patient was then brought back to the operative room. A surgical timeout was performed to make sure correct procedure was being done on the correct patient and all operative room staff were on the same page. General endotracheal anesthesia was then given to the patient. Killian catheter was inserted. The patient was then carefully positioned in right lateral decubitus position with the left side up on a regular OR table. Axillary roll was placed and all bony prominences were well- padded. Hip positioners were placed in the posterior buttocks and anterior sternal area. The surgical area was prepped and draped in usual fashion. Preoperative antibiotic was injected IV as preoperative antibiotic. A final timeout was then again done just before starting the procedure. A 2 inch incision oblique was taken in the left lower quadrant of the abdomen 2 fingerbreadths away from the iliac crest and the lower ribs. Sharp dissection with Bovie was carried out up to the fascia covering the external oblique. The external oblique, internal oblique and transversus abdominis muscles were split along the muscle fibers and retroperitoneal space was entered. Sponge sticks were utilized to move the bowel and peritoneum olv-zs-twq-way and psoas muscle was exposed staying within the retroperitoneal plane. Rapid RMSframe retractor system was positioned and the retractor blade was applied onto the psoas. The interval between psoas and midline structures was developed and appropriate retractors were placed. Once adequate interval was cleared, a disc space was identified and a marker x-ray was taken. This identified the L4-5 disc level. The prepsoas interval was then traced superiorly to expose the L3-4 and L2-3 disc levels. Annulotomy was done with a long handled knife starting at L4-5. Pituitary was used to remove disc material. Curettes were used to prepare the endplates. Disc space spreaders were utilized to distract and increase the disc height. Near complete discectomy was performed. Trials of serially increasing sizes were used. A Jamshidi needle was used to aspirate bone marrow from the left anterior iliac crest through a separate incision and this aspirate was mixed with the allograft bone chips. A Depuy [place] cage of size of the 18 x 50 x 12 mm with 15 degrees lordosis was packed with corticocancellous allograft bone chips mixed with bone marrow aspirate. This was inserted into the L4-5 disc space. The retractors were then repositioned to expose the L3-4 and L2-3 disc and the procedure was repeated with complete discectomy and endplate preparation. Smaller disc distractors were also used to bluntly perform a contralateral annulotomy at all 3 levels. Cage size was 18 x 50 x 10 mm at L3-4, 18 x 50 x 12 mm at L2-3. AP and lateral C-arm pictures were taken to confirm good position of the cage. Some bone chips were also packed around the cages. Screw with washer was placed into the lower L2 and L4 body with a washer partially covering the cage at L2-3 and L4-5. Hemostasis was confirmed. The retractor blades were removed. Closure was done in layers with a continuous strand of # 1 Vicryl in all muscle layers. 2-0 Vicryl was used for subcutaneous tissue and 4-0 for Monocryl for the skin. Steri-Strips were applied and 4 x 4 gauze and Tegaderm were applied. Gis Engineer Betina James PA-C. My physician per diem physical therapist assistant was a vital part of this case. They were important in appropriate retraction during the case, and protection of soft tissues during the procedure. Their intimate knowledge of the case and my steps aided in safe and expedient completion of the procedure as well as appropriate position of the patient during the surgery. They were also vital in assisting with closure under my direct supervision. Surgical Findings: See operative note Complications Complications: No
--- NOTE | 2024-11-27 13:09 | PCM.POST.ANE ---
Anesthesia: Postop Eval I Current Vital Signs Temperature: 97.1 F Pulse Rate: 91 Blood Pressure: 144/71 Respiratory Rate: 16 Pulse Ox: 94 Oxygen Delivery Method: Room Air Assessment Airway patent: Yes Spontaneous unlabored respirations: Yes Mental status: Awake and Calm nausea: No Vomiting: No Anesthesia Complication: No Fluid Hydration Crystalloid volume administer (ml): 3,000 Colloids volume administered (ml): 100 Total IV fluid infused: 3,100 Progress Note Anesthesia document: Postop Eval 1 completed: Yes
--- NOTE | 2024-11-27 13:14 | OP.PCM_ITS ---
Procedures Musculoskeletal 20xxx-29xxx: Other Procedure See Report Operative Report (Standard) Operative Information Date of Procedure: 11/27/24 Pre-Operative Diagnosis: L2-3, L3-4 retrolisthesis, L2-5 disc degeneration, stenosis and neurogenic claudication Post-Operative Diagnosis: Same Surgery/Procedure Performed: L2-5 posterior spinal instrumented fusion adventure guide: Yes [employer] Open Stack Administrator: Betina James Tasks completed by graduate assistant: Closing, Removing tissue, Implanting device, Hemostasis: Electrocautery and Retracting Type of Anesthesia: General RN Documented Start/Stop Times: Operation Date: 11/27/24 07:30 Case Time Into Pre-Op 11/27/24 05:36 Anesthesia Start 11/27/24 07:52 Into Room 11/27/24 07:52 Procedure Start 11/27/24 08:26 Procedure End 11/27/24 12:46 Anesthesia End 11/27/24 12:55 Out of Room 11/27/24 12:55 Procedure Start Time: 08:26 Procedure Stop Time: 12:46 Select all DRAINS/GRAFTS/IMPLANTS that apply: Graft Graft details: Allograft cancellous bone chips and Implanted device Implanted device details: DePuy [employer]comer prime pedicle screw instrumentation Estimated Blood Loss: 100 cc Specimen collected: No Description of surgery: Preoperative diagnosis: L2-3, L3-4 retrolisthesis, 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 L2-3 posterior spinal fusion 15976 ? L2-5 posterior pedicle screw instrumentation 89914 ? L3-4 posterior fusion 36757/51 ? L4-5 posterior fusion 88300/51 ? Allograft cancellous chips [id number] Attending Surgeon: Dr. Bill Colon Estimated blood loss: 100 mL (total for entire case) Anesthesia: General Complications: None Description of procedure: After the anterior procedure was complete, the patient was then turned supine. The patient was then transferred to Cedrick table in prone position. Back was prepped and draped in usual fashion. C-arm AP view was then taken. C-arm was positioned in a way that L2 was centralized and superior endplate of was parallel to the beam. Spinous process was centered between the pedicles. Midline was marked with skin marker and lateral borders of the pedicles were also marked. Skin marker was also utilized to johanna transversely across the middle of the pedicles at L2. 2 transverse paramedian incisions of 1 inch were placed. The fascia was incised vertically. Finger dissection was utilized to palpate the transverse process and facet joint. Viper Prime screws with towers were inserted and docked onto the transverse processes. This was then slowly moved medially to reach the superior articular process of L2. This was then confirmed on C-arm and then a mallet was utilized to drive the trocar into the pedicle going up to the medial wall of the pedicle on AP view. This was performed both sides. C-arm lateral view confirmed that the tip of the trocar was in the vertebral body, and the screw was advanced into the pedicle and vertebral body. This was repeated similarly at L4 and L5 bilaterally. Screw sizes were 7 x 50 mm at L2, L4, and L5 on both sides. 110 mm precontoured titanium 5.5 mm lordotic zohreh on the right and 100 mm on the left were then passed through the screw extensions and reduced down to the screws with the help of Quest[employer]er instrumentation system on both sides. AP and lateral view of the C-arm showed good positioning of the screws and cages. Final tightening with the torque screwdriver was then completed. Amo was utilized to roughen the facet joint at L2-3, L3-4, and L4-5 on the right side. Cancellous allograft bone chips mixed with bone marrow aspirate were then placed over this decorticated area. Hemostasis was achieved. Closure was done in layers with 0 Vicryls for the fascia, 2-0 Vicryls for the subcutaneous tissue, and Monocryl for the skin. Dermabond was applied. Dressings were applied covered with Tegaderm. The patient was then turned supine onto a hospital bed. The patient was extubated and taken to PACU in stable condition. The patient tolerated the procedure well and no complications occurred. Depuy [place] cage & Viper Prime minimally invasive pedicle screw instrumentation system was utilized in this case. No dural tear was identified intraoperatively. I was present for the entirety of the case and performed the surgery. Laborer [employer] House Betina James PA-C. My physician licensed investment sales assistant was a vital part of this case. They were important in appropriate retraction during the case, and protection of soft tissues during the procedure. Their intimate knowledge of the case and my steps aided in safe and expedient completion of the procedure as well as appropriate position of the patient during the surgery. They were also vital in assisting with closure under my direct supervision. Surgical Findings: See operative note Complications Complications: No
--- NOTE | 2024-11-27 13:53 | POSTOPAN2_ITS ---
Anesthesia Postop Eval I Sum Postop Eval Completion status Anesthesia document: Postop Eval 1 completed: Yes Anesthesia Postop Eval I Summary Anesthesia Postop Eval I Summary: Anesthesia Postop Eval I: Assessment Summary Airway patent Yes 11/27/24 13:10 BENZENE STILL UTILITY OPERATOR.SOBR Spontaneous unlabored Yes 11/27/24 13:10 BENZENE STILL UTILITY OPERATOR.SOBR respirations Mental status Awake,Calm 11/27/24 13:10 BENZENE STILL UTILITY OPERATOR.SOBR nausea No 11/27/24 13:10 BENZENE STILL UTILITY OPERATOR.SOBR Vomiting No 11/27/24 13:10 BENZENE STILL UTILITY OPERATOR.SOBR Anesthesia Postop Eval I: Fluid Summary Crystalloid volume administer 3,000 11/27/24 13:10 BENZENE STILL UTILITY OPERATOR.SOBR (ml) Colloids volume administered ( 100 11/27/24 13:10 BENZENE STILL UTILITY OPERATOR.SOBR ml) Blood Product volume administered (ml) Total IV fluid infused 3,100 11/27/24 13:10 BENZENE STILL UTILITY OPERATOR.SOBR Anesthesia Postop Eval I: Summary Notes Anesthesia Complication No 11/27/24 13:10 BENZENE STILL UTILITY OPERATOR.SOBR Anesthesia Complication Comment: Post-operative progress note Anesthesia: Postop Eval II Evaluation Mental status: Awake Pain Level: 0 nausea: No Vomiting: No Complications Anesthesia Complication: No
--- NOTE | 2024-11-27 13:53 | PCM.POSTANE2 ---
Anesthesia Postop Eval I Sum Postop Eval Completion status Anesthesia document: Postop Eval 1 completed: Yes Anesthesia Postop Eval I Summary Anesthesia Postop Eval I Summary: Anesthesia Postop Eval I: Assessment Summary Airway patent Yes 11/27/24 13:10 MANAGER POOL.SOBR Spontaneous unlabored Yes 11/27/24 13:10 MANAGER POOL.SOBR respirations Mental status Awake,Calm 11/27/24 13:10 MANAGER POOL.SOBR nausea No 11/27/24 13:10 MANAGER POOL.SOBR Vomiting No 11/27/24 13:10 MANAGER POOL.SOBR Anesthesia Postop Eval I: Fluid Summary Crystalloid volume administer 3,000 11/27/24 13:10 MANAGER POOL.SOBR (ml) Colloids volume administered ( 100 11/27/24 13:10 MANAGER POOL.SOBR ml) Blood Product volume administered (ml) Total IV fluid infused 3,100 11/27/24 13:10 MANAGER POOL.SOBR Anesthesia Postop Eval I: Summary Notes Anesthesia Complication No 11/27/24 13:10 MANAGER POOL.SOBR Anesthesia Complication Comment: Post-operative progress note Anesthesia: Postop Eval II Evaluation Mental status: Awake Pain Level: 0 nausea: No Vomiting: No Complications Anesthesia Complication: No
[2024-11-27 14:45] LABS: Bedside Glucose 252 mg/dL (74-106)
[2024-11-27] MEDS: Methocarbamol 500 MG Tablet 1000 MG PO ×2 (16:13→21:49)
[2024-11-27] MEDS: oxyCODONE 5 MG Tablet PO ×2 (16:26→20:24)
[2024-11-27] MEDS: metFORMIN HCl 1,000 MG Tablet 1000 MG PO (16:26)
--- NOTE | 2024-11-27 18:44 | PCM.PN.HOSP ---
Reason for Visit Reason for Visit: Diagnoses Encounter for other preprocedural examination (11/27/24) Subjective Subjective Patient is a 79-year-old male with a history of left-sided carotid stenosis, CKD, lumbar spinal stenosis, diabetes, BPH, hypertension who presented [facility] 11/27/2024 for lumbar fusion with Dr. Colon. Hospitalist consulted for postoperative medical management. Patient reports he still feels tired postanesthesia and is still having quite a bit of pain, no chest pain or shortness of breath, no palpitations or other focal or acute complaints Objective Data Objective Data Vital Signs: Vital Signs Temp Pulse Resp BP Pulse Ox O2 Del Method O2 Flow Rate 98.0 F 99 16 153/75 H 94 Nasal Cannula 2 11/27/24 17:51 11/27/24 17:51 11/27/24 17:51 11/27/24 17:51 11/27/24 17:51 11/27/24 17:51 11/27/24 17:51 Oxygen Flow Rate (L/min) 2 Oxygen Delivery Method Nasal Cannula Weight: 73.9 kg Body Mass Index (BMI) 27.1 Intake & Output: Intake and Output for Last 24 Hours 11/25/24 11/26/24 11/27/24 23:59 23:59 23:59 Intake Total 3589.35 / 3589.35 Output Total 1050 / 1050 Balance 2539.35 / 2539.35 Lab / Micro Data 11/27/24 10:18 11/27/24 10:18 Labs: Laboratory Results - last 24 hr 11/27/24 06:01: POC Glucose 198 H 11/27/24 06:40: Blood Type O POSITIVE, Antibody Screen NEGATIVE 11/27/24 10:18: WBC 8.1, RBC 3.22 L, Hgb 10.2 L, Hct 29.6 L, MCV 91.9, MCH 31.7, MCHC 34.5, RDW Std Deviation 41.6, RDW Coeff of Disha 12.4, Plt Count 249, MPV 10.7, Immature Gran % (Auto) 0.700, Neut % (Auto) 69.9, Lymph % (Auto) 18.7 L, [place] % (Auto) 7.2, Eos % (Auto) 2.5, Baso % (Auto) 1.0, Absolute Neuts (auto) 5.7, Absolute Lymphs (auto) 1.51, Nucleated RBC % 0, Sodium 140, Potassium 4.3, Chloride 110 H, Carbon Dioxide 20.1 L, Anion Gap 10, BUN 29 H, Creatinine 1.78 H, Estim Creat Clear Calc 32.15 L, Est GFR (MDRD) Non-Af 39 L, BUN/Creatinine Ratio 16.1, Glucose 137 H, Calcium 8.2 11/27/24 14:23: POC Glucose 252 H Micro: Microbiology 11/02/24 12:29 Swab (Method) Nasal Screen MRSA/MSSA - Final ABG Data ABG results: ABG 11/27/24 11/27/24 10:01 12:08 Specimen Type ART ART Sample Site Art Line Art Line pH 7.29 L 7.34 L Bicarbonate Actual 21.2 L 21.2 L Total CO2 23 22 Base Excess -5 L -5 L O2 Saturation 100 H 100 H O2 % 60.0 ABG pCO2 43.9 39.4 ABG pO2 187 H 193 H Respiration Rate 10 O2 Delivery Device Not entered Adult Vent Vent Mode Not entered SIMV Tidal Volume 500.0 Peak Inspir Pressure 17 Physical Exam Narrative General: Alert, no apparent distress HEENT: Atraumatic, normocephalic Eyes: Anicteric, normal conjunctiva, extraocular movements grossly intact Neck: Supple Respiratory: Clear to auscultation bilaterally, normal respiratory effort Cardiovascular: Low-grade sinus tachycardia, patient currently reports he is in pain GI: Soft, nontender, nondistended Extremities: No edema Musculoskeletal: Moving all extremities Neuro: No overt focal neurological deficits Skin: No rashes appreciated Psych: Cooperative Assessment & Plan Assessment/Plan (1) Lumbar spinal stenosis: QUALIFIERS: Neurogenic claudication status: with neurogenic claudication Qualified Code(s): M48.062 - Spinal stenosis, lumbar region with neurogenic claudication PLAN: Plan # Hypertension - Will hold patient's amlodipine and hydrochlorothiazide to allow room for postoperative pain control, if patient remains hypertensive despite pain regimen these can be resumed #Chronic BPH with obstruction -Continue home medications # CKD stage III b -Appears to be somewhat down from baseline -Avoid nephrotoxic agents - Repeat in the a.m. #Type 2 diabetes mellitus -Glucose checks and sliding scale insulin - Will hold metformin at this time, can resume on discharge # History of carotid stenosis -Patient has listed intolerance to statins -Patient's home aspirin can be resumed once cleared to do so by primary team -Did have right sided carotid endarterectomy in 2018 -Can continue outpatient follow-up # Lumbar stenosis and disc degeneration -Pre-Operative Diagnosis: L2-3, L3-4 retrolisthesis, L2-5 disc degeneration, stenosis and neurogenic claudication -Surgery/Procedure Performed: L2-5 posterior spinal instrumented fusion with Dr. Colon on 11/27/2024 - Postoperative management/pain management per primary - PT/OT #DVT ppx: Timing and agent at discretion of primary team Lilly Owens MD Time spent in the patient's overall evaluation, decision-making process, review of diagnostic data, adjustment of management, discussion with other providers, nursing and ancillary staff involved in patient's care documentation, 25 Minutes Charges/Coding Visit Charges Office Visits / Consults: [id number] OV L3 Est 20min
[2024-11-27] MEDS: Senna/Docusate Sodium 1 Tablet 2 TABLET PO (21:49)
[2024-11-27] MEDS: Gabapentin 300 MG Capsule PO (21:49)
[2024-11-27] MEDS: Tamsulosin HCl 0.4 MG Capsule PO (21:49)
[2024-11-27 22:12] LABS: Bedside Glucose 353 mg/dL (74-106)
[2024-11-28] MEDS: oxyCODONE 5 MG Tablet PO ×4 (00:25→20:58)
[2024-11-28] MEDS: 0.9% Saline Lock 10 ML Syringe IV ×2 (00:25→06:41)
[2024-11-28 04:05] VITALS: BP 160/92; PULSE 116; RESP 17; TEMP 36.8; O2SAT 94
--- NOTE | 2024-11-28 04:50 | RAD_ITS ---
PROCEDURE: LUMBAR SPINE 2 OR 3 VIEWS 11/28/2024 REASON FOR EXAM: S/P LUMBAR FUSION TECHNIQUE: 2 view(s) of the lumbar spine FINDINGS: Status post intervertebral disc spacers L2-3, L3-4 and L4-5 with posterior fixation L2, L4 and L5 and left lateral anchor screws L2 and L4 appears intact and anatomic. No fracture or malalignment. RAD/Lumbar Spine 2 or 3 Views IMPRESSION: Status post intervertebral disc spacers L2-3, L3-4 and L4-5 with posterior fixa tion L2, L4 and L5 and left lateral anchor screws L2 and L4 appears intact and anatomic. No fracture or malalignment. Reading Location: [id number]
[2024-11-28] MEDS: Acetaminophen 500 MG Tablet 1000 MG PO ×3 (06:08→23:14)
[2024-11-28] MEDS: Insulin Lispro 100 UNIT/ML INSULN.PEN SC ×4 (06:08→20:57)
[2024-11-28 06:13] LABS: Hemoglobin 10.3 g/dL (13.0-16.5); Mean Corp Hgb Conc 34.3 g/dL (32-36); Mean Corpuscular Hgb 31.2 pg (27.0-32.0); Mean Corpuscular Volume 90.9 fL (80-94); Mean Platelet Vol. 11.5 fl (6.2-12.0); Platelet Count 262 K/mm3 (150-450); RBC Distribution Width CV 12.5 % (11.6-14.6); RBC Distribution Width SD 40.9 fl (35.1-43.9); White Blood Count 13.4 K/mm3 (4.4-11.0)
[2024-11-28 06:16] VITALS: BP 167/84; PULSE 112; RESP 16; TEMP 36.4; O2SAT 96
[2024-11-28 06:18] LABS: Scan Indicated on CBC? Y/N NO
[2024-11-28] MEDS: Morphine 2 MG/ML Syringe IV (06:40)
[2024-11-28 06:44] LABS: Anion Gap 14 (5-15); BUN 31 mg/dL (4-19); Calcium,Total 8.8 mg/dL (7.6-11.0); Carbon Dioxide 18.9 mmol/L (21.0-32.0); Chloride 108 mmol/L (98-108); Creatinine, Serum 2.03 mg/dL (0.70-1.20); EST Glomerular Filtration Rate 33 (>60); Estimated Creatinine Clearance 28.19 ml/min (50-250); Glucose 243 mg/dL (70-99); Potassium 4.8 mmol/L (3.3-5.1); Sodium Level 141 mmol/L (133-145)
[2024-11-28 07:07] LABS: Bedside Glucose 230 mg/dL (74-106)
[2024-11-28] MEDS: Methocarbamol 500 MG Tablet 1000 MG PO ×3 (08:13→20:56)
[2024-11-28] MEDS: Glimepiride 2 MG Tablet PO (08:13)
--- NOTE | 2024-11-28 08:29 | PCM.PN.HOSP ---
Reason for Visit Reason for Visit: Lumbar spinal stenosis Subjective Subjective Patient states he is really feeling well today. Still no passage of flatus. But doing well overall. No nausea or vomiting. Objective Data Objective Data Vital Signs: Vital Signs Temp Pulse Resp BP Pulse Ox O2 Del Method O2 Flow Rate 97.5 F L 112 H 16 167/84 H 96 Nasal Cannula 2 11/28/24 06:16 11/28/24 06:16 11/28/24 06:16 11/28/24 06:16 11/28/24 06:16 11/28/24 06:16 11/28/24 06:16 Oxygen Flow Rate (L/min) 2 Oxygen Delivery Method Nasal Cannula Weight: 73.9 kg Body Mass Index (BMI) 27.1 Intake & Output: Intake and Output for Last 24 Hours 11/26/24 11/27/24 11/28/24 23:59 23:59 23:59 Intake Total 4448.60 / 4448.60 400 / 400 Output Total 1450 / 1450 Balance 2998.60 / 2998.60 400 / 400 Lab / Micro Data 11/28/24 05:52 11/28/24 05:52 Labs: Laboratory Results - last 24 hr 11/27/24 06:01: POC Glucose 198 H 11/27/24 10:18: WBC 8.1, RBC 3.22 L, Hgb 10.2 L, Hct 29.6 L, MCV 91.9, MCH 31.7, MCHC 34.5, RDW Std Deviation 41.6, RDW Coeff of Disha 12.4, Plt Count 249, MPV 10.7, Immature Gran % (Auto) 0.700, Neut % (Auto) 69.9, Lymph % (Auto) 18.7 L, [place] % (Auto) 7.2, Eos % (Auto) 2.5, Baso % (Auto) 1.0, Absolute Neuts (auto) 5.7, Absolute Lymphs (auto) 1.51, Nucleated RBC % 0, Sodium 140, Potassium 4.3, Chloride 110 H, Carbon Dioxide 20.1 L, Anion Gap 10, BUN 29 H, Creatinine 1.78 H, Estim Creat Clear Calc 32.15 L, Est GFR (MDRD) Non-Af 39 L, BUN/Creatinine Ratio 16.1, Glucose 137 H, Calcium 8.2 11/27/24 14:23: POC Glucose 252 H 11/27/24 21:52: POC Glucose 353 H 11/28/24 05:52: WBC 13.4 H, RBC 3.30 L, Hgb 10.3 L, Hct 30.0 L, MCV 90.9, MCH 31.2, MCHC 34.3, RDW Std Deviation 40.9, RDW Coeff of Disha 12.5, Plt Count 262, MPV 11.5, Sodium 141, Potassium 4.8, Chloride 108, Carbon Dioxide 18.9 L, Anion Gap 14, BUN 31 H, Creatinine 2.03 H, Estim Creat Clear Calc 28.19 L, Est GFR (MDRD) Non-Af 33 L, BUN/Creatinine Ratio 15.0, Glucose 243 H, Calcium 8.8 11/28/24 06:07: POC Glucose 230 H Micro: Microbiology 11/02/24 12:29 Swab (Method) Nasal Screen MRSA/MSSA - Final ABG Data ABG results: ABG 11/27/24 11/27/24 10:01 12:08 Specimen Type ART ART Sample Site Art Line Art Line pH 7.29 L 7.34 L Bicarbonate Actual 21.2 L 21.2 L Total CO2 23 22 Base Excess -5 L -5 L O2 Saturation 100 H 100 H O2 % 60.0 ABG pCO2 43.9 39.4 ABG pO2 187 H 193 H Respiration Rate 10 O2 Delivery Device Not entered Adult Vent Vent Mode Not entered SIMV Tidal Volume 500.0 Peak Inspir Pressure 17 Radiography Diagnostic Testing: Radiology Impression Lumbar Spine X-Ray 11/27/24 06:30 IMPRESSION: Fluoroscopy with 18 spot views as above. Reading Location: [facility] Lumbar Spine X-Ray 11/28/24 04:50 IMPRESSION: Status post intervertebral disc spacers L2-3, L3-4 and L4-5 with posterior fixation L2, L4 and L5 and left lateral anchor screws L2 and L4 appears intact and anatomic. No fracture or malalignment. Reading Location: [facility] Physical Exam Const alert, oriented x3, no apparent distress, healthy appearing and well nourished Constitutional Narrative: Overweight, elderly, white male, sitting up in a chair at the bedside, appears comfortable, nontoxic, at bedside HEENT head/scalp atraumatic and moist oral mucous membranes Head and Scalp: normocephalic Resp normal respiratory effort, no retractions, no use of accessory muscles and clear to auscultation bilaterally Auscultation: Negative for rales, rhonchi or wheezes Cardio regular rate, regular rhythm, S1 normal heart sound, S2 normal heart sound, no murmurs, no rub, no gallops and no clicks GI normal to inspection, nondistended, normoactive bowel sounds, soft to palpation and non-tender Extremity no clubbing, cyanosis or edema Extremity Narrative: Pedal and radial pulses are 2+ Neuro oriented x3, moves all extremities and no focal motor deficits Speech: speech normal Psych affect normal Psych Narrative: Very pleasant, interacts appropriately Assessment & Plan Assessment/Plan (1) Spondylolisthesis, lumbar region: (2) Spinal stenosis of lumbar region with neurogenic claudication: (3) Anemia: (4) Leukocytosis: (5) Hyperglycemia: PLAN: Plan Low back pain secondary to spinal stenosis - Postop day 1 L2-5 posterior spinal instrumented fusion with Dr. 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 Medical cleared. Dr. Colon notified and will sign off. Charges/Coding Visit Charges Inpatient E&M: 59374 Subs Hosp L2
[2024-11-28 10:00] VITALS: BP 144/80; PULSE 98; RESP 18; TEMP 36.8; O2SAT 94
[2024-11-28 11:47] LABS: Bedside Glucose 178 mg/dL (74-106)
--- NOTE | 2024-11-28 11:55 | CASEMGMT ---
MELISA TAYLOR Assessment: Face to Face with pt for initial transition planning/care coordination assessment. RN CLAUDIA introduced self and role at [facility], pt voices understanding and consents to assessment. Pt is A&O x4 and answers all questions appropriately at this time. Pt sitting up in chair with son and at bedside. Pt agreeable to assessment with family present. Care providers, pharmacy, and demographics verified/updated. Admitting Dx: 360 lumbar fusion Strata Score: 2 PCP:Cliff Specialists:lilli Colon Pharmacy: [facility] Insurance: [facility], MMO Prescription Benefit: yes LNOK: Alexia Peace, ; Anibal Peace, son Living Arrangements: Pt lives with and son in a two story home with FFSU and 3 steps to enter with a rail. Pt reports he is I in ADLs/IADLs and denies concerns at home. Pt family able to assist if needed. Transportation: Pt drives self and denies concerns with transportation. Pt and son able to transport pt as well until he can drive again. DME:rollator, cane, shower chair, BGM with sufficient supply of strips and lancets HHC/SNF: Denies hx of Pt states no concerns with going home at time of dc. Pt states no further concerns/needs. CM to follow. Advised pt to ask CM if any further questions/concerns/needs arise, voices understanding. Pt Goal: Home Plan: Home Dez VINCENT CM
[2024-11-28 15:15] VITALS: BP 148/88; PULSE 96; RESP 17; TEMP 36.4; O2SAT 96
--- NOTE | 2024-11-28 16:05 | PCM.PN.ORT ---
Subjective Subjective Postop day 1 L2-5 fusion. Patient did have some increased pain after the surgery however he says today his pain has improved. Patient also notes a left-sided groin pain and left-sided hip pain however the patient said that he did have left hip bursitis prior to the surgery. Patient's blood pressure has been a little bit high while admitted. He has not yet passed gas. This morning the patient had not yet gone to the bathroom and was just using the urinal in bed. Seen with Dr. Colon. Objective Data Objective Data Vital Signs: Vital Signs Temp Pulse Resp BP Pulse Ox O2 Del Method O2 Flow Rate 97.6 F L 96 17 148/88 H 96 Room Air 2 11/28/24 15:15 11/28/24 15:15 11/28/24 15:15 11/28/24 15:15 11/28/24 15:15 11/28/24 15:15 11/28/24 10:17 Oxygen Flow Rate (L/min) 2 Oxygen Delivery Method Room Air Weight: 162 lb 14.746 oz Body Mass Index (BMI) 27.1 Intake & Output: Intake and Output for Last 24 Hours 11/26/24 11/27/24 11/28/24 23:59 23:59 23:59 Intake Total 4448.60 / 4448.60 750 / 750 Output Total 1450 / 1450 Balance 2998.60 / 2998.60 750 / 750 Lab / Micro Data 11/28/24 05:52 11/28/24 05:52 Labs: Laboratory Results - last 24 hr 11/27/24 21:52: POC Glucose 353 H 11/28/24 05:52: WBC 13.4 H, RBC 3.30 L, Hgb 10.3 L, Hct 30.0 L, MCV 90.9, MCH 31.2, MCHC 34.3, RDW Std Deviation 40.9, RDW Coeff of Disha 12.5, Plt Count 262, MPV 11.5, Sodium 141, Potassium 4.8, Chloride 108, Carbon Dioxide 18.9 L, Anion Gap 14, BUN 31 H, Creatinine 2.03 H, Estim Creat Clear Calc 28.19 L, Est GFR (MDRD) Non-Af 33 L, BUN/Creatinine Ratio 15.0, Glucose 243 H, Calcium 8.8 11/28/24 06:07: POC Glucose 230 H 11/28/24 11:16: POC Glucose 178 H Micro: Microbiology 11/02/24 12:29 Swab (Method) Nasal Screen MRSA/MSSA - Final Radiography Diagnostic Testing: Radiology Impression Lumbar Spine X-Ray 11/27/24 06:30 IMPRESSION: Fluoroscopy with 18 spot views as above. Reading Location: [facility] Lumbar Spine X-Ray 11/28/24 04:50 IMPRESSION: Status post intervertebral disc spacers L2-3, L3-4 and L4-5 with posterior fixation L2, L4 and L5 and left lateral anchor screws L2 and L4 appears intact and anatomic. No fracture or malalignment. Reading Location: [facility] Physical Exam Narrative Neurological examination of the lower extremity shows 5X5 power. Normal sensation across all dermatomes. Physical examination of the back and belly shows Tegaderm and gauze CDI. Const alert, oriented x3 and no apparent distress Assessment & Plan Assessment/Plan (1) Status post lumbar spinal fusion: PLAN: Plan Postop day 1 L2-5 fusion. Obtained and reviewed x-rays today which show hardware and bone graft in good position. The patient has walked with PT/OT who recommends additional therapy. Reviewed and educated on the use of the incentive spirometer. Encouraged the patient to walk more and to get out of bed to use the restroom. The patient has not yet passed gas and so we will stay another night. Patient is in agreement.
[2024-11-28 16:21] LABS: Bedside Glucose 163 mg/dL (74-106)
[2024-11-28 20:32] VITALS: BP 157/88; PULSE 120; RESP 18; TEMP 36.4; O2SAT 97
[2024-11-28] MEDS: Tamsulosin HCl 0.4 MG Capsule PO (20:56)
[2024-11-28] MEDS: Gabapentin 300 MG Capsule PO (20:58)
[2024-11-28 22:35] LABS: Bedside Glucose 200 mg/dL (74-106)
[2024-11-29 04:03] VITALS: BP 138/83; PULSE 125; RESP 18; TEMP 37; O2SAT 94
[2024-11-29] MEDS: Acetaminophen 500 MG Tablet 1000 MG PO (06:53)
[2024-11-29] MEDS: Insulin Lispro 100 UNIT/ML INSULN.PEN SC (06:54)
[2024-11-29 07:29] LABS: Bedside Glucose 158 mg/dL (74-106)
--- NOTE | 2024-11-29 07:31 | PCM.PN.ORT ---
Subjective Subjective Postop day 2 L2-5 fusion. Patient says that he has been walking more in the hallways and tolerated therapy well. The patient has passed gas and has tolerated a solid meal. No nausea or vomiting. The patient does continue to have some abdominal discomfort and distention. Patient is ready for home discharge today. Objective Data Objective Data Vital Signs: Vital Signs Temp Pulse Resp BP Pulse Ox O2 Del Method O2 Flow Rate 98.6 F 125 H 18 138/83 H 94 Room Air 2 11/29/24 04:03 11/29/24 04:03 11/29/24 04:03 11/29/24 04:03 11/29/24 04:03 11/29/24 04:03 11/28/24 10:17 Oxygen Flow Rate (L/min) 2 Oxygen Delivery Method Room Air Weight: 162 lb 14.746 oz Body Mass Index (BMI) 27.1 Intake & Output: Intake and Output for Last 24 Hours 11/27/24 11/28/24 11/29/24 23:59 23:59 23:59 Intake Total 4448.60 / 4448.60 1150 / 1450 600 / 600 Output Total 1450 / 1450 Balance 2998.60 / 2998.60 1150 / 1450 600 / 600 Lab / Micro Data 11/28/24 05:52 11/28/24 05:52 Labs: Laboratory Results - last 24 hr 11/28/24 11:16: POC Glucose 178 H 11/28/24 16:00: POC Glucose 163 H 11/28/24 20:55: POC Glucose 200 H 11/29/24 06:52: POC Glucose 158 H Micro: Microbiology 11/02/24 12:29 Swab (Method) Nasal Screen MRSA/MSSA - Final Physical Exam Narrative Neurological examination of the lower extremity shows 5X5 power. Normal sensation across all dermatomes. Physical examination of the back and belly shows Tegaderm and gauze CDI. Patient abdomen is tight and slightly tender to palpation. Const alert, oriented x3 and no apparent distress Assessment & Plan Assessment/Plan (1) Status post lumbar spinal fusion: PLAN: Plan Postop day 2 L2-5 fusion. The patient has walked with PT/OT who recommends additional therapy but ready for home discharge. Reviewed and educated on the use of the incentive spirometer. Encouraged the patient to walk more and to get out of bed to use the restroom. Patient has passed gas and has tolerated a solid meal. Home meds include oxycodone, acetaminophen, methocarbamol, senna. Holding meloxicam due to high creatinine. Patient will follow-up in the clinic in 2 weeks. Patient is in agreement.
[2024-11-29] MEDS: Glimepiride 2 MG Tablet PO (09:07)
[2024-11-29] MEDS: Methocarbamol 500 MG Tablet 1000 MG PO (09:07)
[2024-11-29] MEDS: Senna/Docusate Sodium 1 Tablet 2 TABLET PO (09:08)
[2024-11-29] MEDS: oxyCODONE 5 MG Tablet PO (09:11)
[2024-11-29 10:00] VITALS: BP 148/86; PULSE 122; RESP 18; TEMP 37.1; O2SAT 95
--- NOTE | 2024-11-29 10:15 | PHA.DC.MC.R ---
Pharmacy [facility] has performed discharge medication reconciliation and counseling for this patient. 1. Acetaminophen 500mg PO Q6 2. Methocarbamol 750mg PO TID PRN muscle pain/spasms 3. Oxycodone 2.5-5mg PO Q6H PRN pain 4. Senna/docusate 2T PO BID PRN constipation The patient's discharge medication list was reviewed for discrepancies and discrepancies were resolved. The patient was counseled on the following discharge medications and changes in medications for homegoing were reviewed. The Reason for Use, instructions for use, and potential side effects were reviewed for all new medications. The patient's questions regarding all of their medications were answered. The patient was able to verbally demonstrate an understanding of their discharge medications. Medications at Discharge Home Medications aspirin 81 mg tablet,delayed release 81 mg PO DAILY@0800 [facility] 04/16/17 Held on 11/29/24. Instructions: Resume on 11/30/24. glimepiride 2 mg tablet 2 mg PO BREAKFAST dm 04/16/17 hydrochlorothiazide 25 mg tablet 25 mg PO DAILY bp 04/16/17 metformin 1,000 mg tablet 1,000 mg PO BID dm 04/16/17 tamsulosin 0.4 mg capsule 0.4 mg PO QHS bph 04/16/17 cholecalciferol (vitamin D3) 25 mcg (1,000 unit) capsule 25 mcg PO DAILY SUPPLEMENT 04/05/23 zinc acetate 25 mg (zinc) capsule 50 mg PO DAILY SUPPLEMENT 04/05/23 ascorbic acid (vitamin C) 500 mg capsule 500 mg PO DAILY SUPPLEMENT 09/15/24 ferrous sulfate 325 mg (65 mg iron) tablet (Feosol) 325 mg PO QDAY SUPPLEMENT 09/15/24 gabapentin 300 mg capsule 300 mg PO QHS PAIN 10/31/24 amlodipine 10 mg tablet 10 mg PO DAILY htn 11/27/24 acetaminophen 500 mg tablet 500 mg PO Q6H #30 tabs 11/29/24 methocarbamol 500 mg tablet 750 mg (1.5 x 500 mg) PO TID PRN pain/spasms #60 tabs 11/29/24 oxycodone 5 mg tablet 2.5 - 5 mg (0.5 - 1 x 5 mg) PO Q6H PRN pain 7 days #28 tabs 11/29/24 sennosides 8.6 mg-docusate sodium 50 mg tablet (Stimulant Laxative Plus) 2 tab PO BID PRN constipation #30 tabs 11/29/24
[2024-11-29 10:23] VITALS: BP 148/86; PULSE 122; RESP 18; TEMP 37.1; O2SAT 95
[2024-11-29 12:37] LABS: Bedside Glucose 131 mg/dL (74-106)
[2024-11-29 12:40] VITALS: BP 165/100; PULSE 110; RESP 18; TEMP 36.7; O2SAT 98
== END 2024-11-29 12:52 | disposition home or self-care (01) | DRG 427 ==
LOC: MS3 11-28 07:01
PROVIDERS: Anesthesiology; Student in an Organized Health Care Education/Training Program; Admitting Provider Orthopaedic Surgery Orthopaedic Surgery of the Spine; PCP Nurse Practitioner Family; Referring Provider Orthopaedic Surgery Orthopaedic Surgery of the Spine; Visit Provider Orthopaedic Surgery Orthopaedic Surgery of the Spine
PROC: 0SG10A0 Fusion of 2 or more Lumbar Vertebral Joints with Interbody Fusion Device, Anterior Approach, Anterior Column, Open Approach (ICD-10-PCS; principal; 2024-11-27 07:00)
DX: M48.062 Spinal stenosis, lumbar region with neurogenic claudication (principal); N13.8 Other obstructive and reflux uropathy; E11.22 Type 2 diabetes mellitus with diabetic chronic kidney disease; D64.9 Anemia, unspecified; D72.829 Elevated white blood cell count, unspecified; E11.51 Type 2 diabetes mellitus with diabetic peripheral angiopathy without gangrene; N18.32 Chronic kidney disease, stage 3b; I12.9 Hypertensive chronic kidney disease with stage 1 through stage 4 chronic kidney disease, or unspecified chronic kidney disease; M43.16 Spondylolisthesis, lumbar region; M51.26 Other intervertebral disc displacement, lumbar region; M41.9 Scoliosis, unspecified; E11.65 Type 2 diabetes mellitus with hyperglycemia; M70.72 Other bursitis of hip, left hip; M51.360 Other intervertebral disc degeneration, lumbar region with discogenic back pain only; Z79.84 Long term (current) use of oral hypoglycemic drugs; Z87.891 Personal history of nicotine dependence; Z83.3 Family history of diabetes mellitus; N40.1 Benign prostatic hyperplasia with lower urinary tract symptoms
CPT/HCPCS: 36415; 72100; 76000; 80048; 82803; 82962; 83036; 83735; 85025; 85027; 86703; 86706; 86708; 86803; 86850; 86900; 86901; 87081; 93005; 97116; 97162; 97166; C1713; P9047; A4216; J2405; J3475

== ENCOUNTER 2024-12-01 22:00 | Emergency (ER) | payer MEDICARE, OTHER, SELFPAY ==
[2024-12-01 22:01] VITALS: BP 153/95; PULSE 62; RESP 18; TEMP 36.4; O2SAT 95; BMI 28.0
--- NOTE | 2024-12-01 22:18 | CT_ITS ---
PROCEDURE: ABDOMEN/PELVIS W IV CONT ONLY 12/01/2024 REASON FOR EXAM: ABDOMINAL PAIN AND DISTENTION TECHNIQUE: Abdomen and pelvis CT with intravenous contrast. Coronal and Sagittal reconstruction series were provided. PATIENT PREPARATION: Per protocol ORAL CONTRAST TYPE: None. AMOUNT: mL CONTRAST: Omnipaque 350 VOLUME: 100 mL Not Provided Gauge IV One or more dose reduction techniques were used (e.g., Automated exposure control, adjustment of the mA and/or kV according to patient size, use of iterative reconstruction technique. COMPARISON: None FINDINGS: Lung bases: Mild dependent atelectasis Liver: Normal size. No focal lesion. Gallbladder: No ductal dilation. Slightly distended gallbladder. Spleen: Normal size. Pancreas: Normal size without evidence of mass surrounding inflammation or ductal dilation. Adrenals: Unremarkable. Kidneys: Mild bilateral renal atrophy, with lobulated contours. No suspicious mass. No punctate right upper pole calculus. No hydronephrosis. Low-attenuation lesions too small to characterize, likely simple cysts.. Bladder: Urinary bladder is unremarkable. Reproductive Organs: No pelvic mass Bowel: Stomach is unremarkable. Colonic diverticulosis, with wall thickening and subcutaneous stranding along the descending and sigmoid colon, suggestive of mild diverticulitis. Multiple dilated colonic loops, predominantly in the ascending, transverse and proximal descending colon, measuring up to 6.3 cm. Within the ascending and transverse colon, there is moderate pneumatosis. . Moderate colonic stool. Small bowel loops are nondilated. Appendix: Normal Lymph nodes: No suspicious lymph node enlargement. Vasculature: Moderate diffuse atherosclerotic calcification of the abdominal aorta and iliac arteries. No aneurysm formation. Peritoneum / Retroperitoneum: Tiny foci of pneumoperitoneum within the left lower quadrant (series 601 image 65 and series 2, image 96), concerning for sequela of microperforations from the adjacent diverticulitis. Bones: Degenerative changes of the lumbar spine. Postoperative changes L2-L5 posterior fusion. Soft tissue: Prior postoperative changes hernia repair. Mild diffuse subcutaneous stranding. CT/Abdomen/Pelvis W IV Cont ONLY IMPRESSION: 1. Mild acute sigmoid diverticulitis, with scattered foci of free air, likely s econdary to micro perforations. 2. Diffusely dilated ascending, transverse and proximal descending colonic loop s, with pneumatosis as described above. Reading Location: [facility]
--- NOTE | 2024-12-01 22:19 | EDS_ITS ---
HPI HPI - GI History of Present Illness Chief Complaint: Abd Pain Narrative Narrative: 79-year-old male past medical history of diabetes, on oral medication presents with his family because of abdominal pain and distention associated with nausea and vomiting. They relate history that he had surgery by Dr. Underwood, lumbar fusion, on Wednesday. He is postoperative day 4. He has not eaten much since then, and he has not had a bowel movement since Wednesday, before the surgery. He has past surgical history of hernia repair by Dr. Hancock remotely. His abdomen feels distended and full of air. Family reports that he is having a small amount of flatulence still. He denies any fevers or chills. No exacerbating or alleviating factors. Patient is taking oxycodone for analgesia. [facility] Medical History CKD (chronic kidney disease), stage IV Wears glasses Wears dentures BPH (benign prostatic hyperplasia) Arthritis Prostate disease Low iron History of diverticulitis Heartburn Former smoker Leg cramps History of echocardiogram Hypertrophic scar Carotid stenosis, left Sebaceous cyst Amaurosis fugax of right eye Sciatica Hyperlipidemia Osteoarthritis Hemorrhoid GERD (gastroesophageal reflux disease) HTN (hypertension) Diabetes Carotid stenosis Home Medications ?Medication ?Instructions ?Recorded ?Last Taken ?Type aspirin 81 mg tablet,delayed 81 mg PO DAILY@0800 heart [facility] 04/16/17 11/26/24 09:00 History release glimepiride 2 mg tablet 2 mg PO BREAKFAST dm 7 11/26/24 09:00 History hydrochlorothiazide 25 mg tablet 25 mg PO DAILY bp 11/26/24 09:00 History metformin 1,000 mg tablet 1,000 mg PO BID dm 04/16/17 11/26/24 19:30 History tamsulosin 0.4 mg capsule 0.4 mg PO QHS bph 04/16/17 0 11/26/24 22:30 History cholecalciferol (vitamin D3) 25 25 mcg PO DAILY SUPPLE MENT 04/05/23 11/26/24 09:00 History mcg (1,000 unit) capsule zinc acetate 25 mg (zinc) capsule 50 mg PO DAILY SUPPL EMENT 04/05/23 11/26/24 09:00 History ascorbic acid (vitamin C) 500 mg 500 mg PO DAILY SUPPL EMENT 09/15/24 11/26/24 09:00 History capsule ferrous sulfate 325 mg (65 mg 325 mg PO QDAY SUPPLEMEN T 09/15/24 11/26/24 09:00 History iron) tablet (Feosol) gabapentin 300 mg capsule 300 mg PO QHS PAIN 10/31/24 11/25/24 22:30 History amlodipine 10 mg tablet 10 mg PO DAILY htn 11/27/24 11/26/24 09:00 History acetaminophen 500 mg tablet 500 mg PO Q6H #30 tabs 02/16 Unknown Rx methocarbamol 500 mg tablet 750 mg (1.5 x 500 mg) PO T ID PRN 11/29/24 Unknown Rx pain/spasms #60 tabs oxycodone 5 mg tablet 2.5 - 5 mg (0.5 - 1 x 5 mg) PO Q6H 11/29/24 Unknown Rx PRN pain 7 days #28 tabs sennosides 8.6 mg-docusate sodium 2 tab PO BID PRN con stipation #30 11/29/24 Unknown Rx 50 mg tablet (Stimulant Laxative tabs Plus) Allergy/AdvReac Type Severity Reaction Status Date / Time tetanus and diphtheria Allergy Rash Verified 12/01/24 22:00 toxoids Xlnnguh-[id number]-HxZ Reductase AdvReac Other Verified 12/01/24 22:00 Inhibitor (Wwahbpk-Tyw-Yri Reductase Inhibitor) Family History Father Diabetes Heart disease Myocardial infarction Mother CAD (coronary artery disease) Arthritis Surgical History History of right-sided carotid endarterectomy History of right-sided carotid endarterectomy (~11/2017) History of umbilical hernia S/P ventral herniorrhaphy S/P inguinal hernia repair S/P colonoscopy Social History Smoking Status: Former smoker ROS ROS ED ROS Narrative Review of systems positive for abdominal pain and distention. Endorses constipation. No problems with urination. Positive decreased p.o. intake. Started having nausea and vomiting this evening prior to arrival. No exacerbating or alleviating factors. EXAM Physical Exam Narrative Exam Narrative: Afebrile. Vital signs noted. Nontoxic-appearing. Cardiovascular examination reveals a regular rate and rhythm with intermittent tachycardia. Lungs are clear to auscultation bilaterally. Abdomen is soft, but distended. Diffuse tenderness to palpation but no guarding or rebound. No peritoneal signs. Hypoactive bowel sounds. Neurological examination nonfocal and nonlateralizing. Const Vital Signs: 12/01/24 22:01 12/02/24 00:00 12/02/24 02:00 Temperature 97.6 F L Temperature Source Oral Pulse Rate 62 125 H 124 H Respiratory Rate 18 20 H 19 H Blood Pressure 153/95 H 167/90 H 139/77 H Blood Pressure Mean 114 115 97 Pulse Ox 95 96 97 Oxygen Delivery Method Room Air Room Air Room Air MDM MDM MDM Narrative Medical decision making narrative: The differential diagnosis includes but not limited to ileus versus constipation versus bowel obstruction/partial small bowel obstruction. Patient declines further analgesics here but he was administered ondansetron for nausea and vomiting. He was bolused normal saline. I do feel that CT imaging is indicated given his abdominal distention as his family states that he appears 9 months and his 's words. I reviewed his laboratory work and he has elevated white count of 12.1 which is down from previous when compared to prior labs, but he did have recent surgery as well. Hemoglobin 12.2 with hematocrit 35.9, platelet count normal at 436. Lipase normal at 13 so I have lower suspicion for acute pancreatitis. Urinalysis is negative for nitrites and leukocyte esterase, with 5 ketones. He had been bolused normal saline. On my independent interpretation of the CT imaging, there are air-fluid levels in the bowel with concern for bowel obstruction. However, on review of the CT of the abdomen and pelvis radiology report, patient does have diverticulitis in the sigmoid area. There is distention of the the ascending, transverse, and descending colon with pneumatosis of the bowel. There is suspected multiple foci of microperforations. Patient started on Zosyn intravenously. I discussed the patient with the general surgeon, Dr. Paco Smith. Patient was seen and evaluated in the emergency department. It was thought that given his extensive pneumatosis of the bowel, that he needed to be transferred to a tertiary care center in the event that the patient might require total colectomy. Patient was discussed with the [facility] Transfer line. He has been accepted as an ED to ED transfer for surgical consultation. Disposition is transferred in stable condition. Repeat examination at approximately 2:28 AM shows him resting comfortably on the cot. I offered him analgesia, but he declined. Dr. Smith requested IV fluids running at 100 mL/h for transfer, and to get an EKG because the patient became tachycardic. On my individual interpretation of his EKG it shows sinus tachycardia with fusion complexes at 121 bpm and a left bundle branch block but no acute ST changes. No STEMI. Additionally, patient is not having any chest pain or shortness of breath or any symptoms. Once again, he was offered analgesics but declined. He will be transferred in stable condition. History & Record Review Discussion w/independent historian: Patient and Family Lab Data Attestation: I reviewed the patient's lab results. Labs: Laboratory Results - last 24 hr 12/01/24 12/01/24 12/02/24 22:15 22:28 00:41 WBC 12.1 H RBC 3.91 L Hgb 12.2 L Hct 35.9 L MCV 91.8 MCH 31.2 MCHC 34.0 RDW Std Deviation 41.3 RDW Coeff of Disha 12.3 Plt Count 436 MPV 11.1 Immature Gran % (Auto) 0.300 Neut % (Auto) 84.2 H Lymph % (Auto) 7.9 L [place] % (Auto) 6.7 Eos % (Auto) 0.3 Baso % (Auto) 0.6 Absolute Neuts (auto) 10.2 H Absolute Lymphs (auto) 0.96 Nucleated RBC % 0 Sodium 136 Potassium 4.1 Chloride 101 Carbon Dioxide 16.6 L Anion Gap 19 H BUN 58 H Creatinine 2.00 H Estim Creat Clear Calc 29.06 L Est GFR (MDRD) Non-Af 34 L BUN/Creatinine Ratio 29.0 H Glucose 131 H Lactic Acid 1.5 Calcium 9.8 Total Bilirubin 0.66 AST 42 H ALT 11 Alkaline Phosphatase 62 Total Protein 7.6 Albumin 4.1 Globulin 3.6 Albumin/Globulin Ratio 1.1 Lipase 13 Urine Color Yellow Urine Clarity Clear Urine pH 5.0 Ur Specific [place] 1.015 Urine Protein 100 H Urine Glucose (UA) Normal Urine Ketones 5 H Urine Occult Blood 10 H Urine Nitrite Negative Urine Bilirubin Negative Urine Urobilinogen Normal Ur Leukocyte Esterase Negative Urine RBC 0 SEEN Urine WBC 0-5 SEEN Ur Squamous Epith Cells 0 SEEN Amorphous Sediment 1+ Urine Bacteria 2+ Hyaline Casts 0-5 SEEN Fine Granular Casts 0-5 SEEN Urine Mucus 0 SEEN Radiography Diagnostic Testing: Clinical Impression(s) from Imaging Studies Abdomen/Pelvis CT 12/01/24 22:18 IMPRESSION: 1. Mild acute sigmoid diverticulitis, with scattered foci of free air, likely secondary to micro perforations. 2. Diffusely dilated ascending, transverse and proximal descending colonic loops, with pneumatosis as described above. Reading Location: [facility] Management Discussion w/another healthcare provider: [employer]al [employer] (Dr. Paco Smith, general surgery.) Discharge Plan Triage Chief Complaint: Abd Pain ED Provider: Rolf Donovan Dx/Rx/DC Orders Prescriptions: No Action zinc acetate 25 mg (zinc) capsule 50 mg PO DAILY cholecalciferol (vitamin D3) 25 mcg (1,000 unit) capsule 25 mcg PO DAILY ascorbic acid (vitamin C) 500 mg capsule 500 mg PO DAILY ferrous sulfate [Feosol] 325 mg (65 mg iron) tablet 325 mg PO QDAY aspirin 81 MG tablet 81 mg PO DAILY@0800 glimepiride 2 MG tablet 2 mg PO BREAKFAST tamsulosin 0.4 MG capsule 0.4 mg PO QHS metformin 1,000 MG tablet 1,000 mg PO BID hydrochlorothiazide 25 MG tablet 25 mg PO DAILY gabapentin 300 mg capsule 300 mg PO QHS amlodipine 10 mg tablet 10 mg PO DAILY acetaminophen 500 mg Tablet 500 mg PO Q6H Qty: 30 0RF methocarbamol 500 mg Tablet 750 mg PO TID PRN (Reason: pain/spasms) Qty: 60 0RF oxycodone 5 mg Tablet 2.5 - 5 mg PO Q6H PRN (Reason: pain) 7 Days Qty: 28 0RF sennosides-docusate sodium [Stimulant Laxative Plus] 8.6-50 mg Tablet 2 tab PO BID PRN (Reason: constipation) Qty: 30 0RF Primary Care Provider: Trinity Coronado Referrals: Trintiy Coronado, [employer]IST[employer] [Primary Care Provider] - Print Language: Welsh
[2024-12-01 22:27] LABS: Absolute Lymphocyte Count 0.96 X10^3/uL (0.83-4.51); Absolute Neutrophil Count 10.2 X10^3/uL (2.0-7.7); Basophil# 0.07 X10^3/uL; Basophil% 0.6 % (0-1); Eosinophil# 0.04 X10^3/uL; Eosinophils% 0.3 % (0-5); Hematocrit 35.9 % (40-54); Hemoglobin 12.2 g/dL (13.0-16.5); Lymphocyte # 0.96 X10^3/ul (0.83-4.51); Lymphocyte % 7.9 % (19-41); Mean Corpuscular Hgb 31.2 pg (27.0-32.0); Mean Corpuscular Volume 91.8 fL (80-94); Mean Platelet Vol. 11.1 fl (6.2-12.0); Monocyte# 0.81 X10^3/uL; Monocyte% 6.7 % (0-10); NRBC Flagged by Analyzer 0 % (0-5); Neutrophil # 10.18 X10^3/uL (2.7-7.7); Neutrophil % 84.2 % (47-70); Platelet Count 436 K/mm3 (150-450); RBC Distribution Width CV 12.3 % (11.6-14.6); RBC Distribution Width SD 41.3 fl (35.1-43.9); Red Blood Count 3.91 M/mm3 (4.6-6.2); White Blood Count 12.1 K/mm3 (4.4-11.0)
[2024-12-01] MEDS: 0.9% Normal Saline (1000mL) 1,000 ML 999 ML IV (22:28)
[2024-12-01] MEDS: Ondansetron 4 MG/2 ML Vial IV (22:28)
[2024-12-01 22:33] LABS: Mucous, Urine 0 SEEN /hpf (<or=2+); Red Blood Cells-Urine 0 SEEN /hpf (0-5); Squamous Epithelial Cells - UA 0 SEEN /hpf (0-5)
[2024-12-01 22:42] LABS: Color, Urine Yellow (Yellow); Glucose, Dipstick Normal (Normal); Ketone-Dipstick 5 mg/dl (Negative); Leukocyte Esterase-Dipstick Negative /ul (Negative); Nitrite-Dipstick Negative (Negative); Occult Blood-Urine 10 /ul (Negative); Protein-Dipstick 100 mg/dl (Negative); Specific Gravity, Urine 1.015 (1.002-1.030); Urine Bilirubin Dipstick Negative (Negative); Urine Clarity Clear (Clear); Urine Urobilinogen Normal (Normal)
[2024-12-01 22:49] LABS: Lipase 13 U/L (13-75)
[2024-12-01 23:22] LABS: ALB/GLOB Ratio 1.1 RATIO (0.9-2.4); AST(SGOT) 42 U/L (<=37); Alanine Aminotransfer ALT/SGPT 11 U/L (<=46); Albumin, Serum 4.1 g/dL (3.4-4.8); Alkaline Phosphatase 62 U/L (40-129); Anion Gap 19 (5-15); BUN 58 mg/dL (4-19); Calcium,Total 9.8 mg/dL (7.6-11.0); Carbon Dioxide 16.6 mmol/L (21.0-32.0); Chloride 101 mmol/L (98-108); EST Glomerular Filtration Rate 34 (>60); Estimated Creatinine Clearance 29.06 ml/min (50-250); Globulin 3.6 g/dL (2.2-4.2); Glucose 131 mg/dL (70-99); Potassium 4.1 mmol/L (3.3-5.1); Protein, Total 7.6 g/dL (5.9-8.4); Sodium Level 136 mmol/L (133-145); Total Bilirubin 0.66 mg/dL (0.00-1.30)
[2024-12-01 23:30] LABS: Bacteria 2+ /hpf (None Seen); Fine Granular Cast- Urine 0-5 SEEN /lpf (0-5); Hyaline Cast 0-5 SEEN /lpf (0-5); White Blood Cells 0-5 SEEN /hpf (0-5)
[2024-12-01 23:31] LABS: Amorphous Sediment 1+
[2024-12-01] MEDS: Pantoprazole Sodium 40 MG in 0.9% Normal Saline (100mL MB+) 100 ML 330 MG IV (23:48)
[2024-12-02] VITALS: BP 167/90; PULSE 125; RESP 20; O2SAT 96
[2024-12-02] MEDS: Piperacil/Tazobactam 3.375 GM/50 ML ML IV (00:46)
[2024-12-02 01:12] LABS: Lactic Acid 1.5 mmol/L (0.0-2.0)
--- NOTE | 2024-12-02 01:31 | PCM.HP.STD ---
[facility] - General General Date of Service: 12/02/24 Chief Complaint: Acute onset abdominal discomfort HPI Narrative SYD BARNETT, is a 79 M who presents to [facility] in the company of both his sons and his due to progressive abdominal distention, progressive abdominal pain, and inability to have a bowel movement for the past 6 days. Patient reports that he underwent back surgery with Dr. Colon on 11/27/2024 and said progressive abdominal discomfort ever since. His family reports that he has passed some flatus but he has had progressive bloating and chills which started yesterday. Patient and his family note that the absence of bowel activity is highly unusual as patient normally experiences bowel movements twice daily every day. Patient's ER workup notable for CBC with mild leukocytosis of 12.1. More significantly patient underwent CT imaging of the abdomen pelvis with intravenous contrast. 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 Additionally they noted the presence of some free air due to microperforations along the sigmoid colon. Patient's colon was also notably distended with a diameter just over 6 cm along the ascending segment. Patient's past abdominal surgical history includes left inguinal hernia repair with mesh and ventral hernia repair by Dr. Guillaume Hancock remotely. [facility] Medical History CKD (chronic kidney disease), stage IV Wears glasses Wears dentures BPH (benign prostatic hyperplasia) Arthritis Prostate disease Low iron History of diverticulitis Heartburn Former smoker Leg cramps History of echocardiogram Hypertrophic scar Carotid stenosis, left Sebaceous cyst Amaurosis fugax of right eye Sciatica Hyperlipidemia Osteoarthritis Hemorrhoid GERD (gastroesophageal reflux disease) HTN (hypertension) Diabetes Carotid stenosis Home Medications ?Medication ?Instructions ?Recorded ?Last Taken ?Type aspirin 81 mg tablet,delayed 81 mg PO DAILY@0800 heart health 04/16/17 11/26/24 09:00 History release glimepiride 2 mg tablet 2 mg PO BREAKFAST dm 04/16/17 11/26/24 09:00 History hydrochlorothiazide 25 mg tablet 25 mg PO DAILY bp 04/16/17 11/26/24 09:00 History metformin 1,000 mg tablet 1,000 mg PO BID dm 04/16/17 11/26/24 19:30 History tamsulosin 0.4 mg capsule 0.4 mg PO QHS bph 04/16/17 11/26/24 22:30 History cholecalciferol (vitamin D3) 25 25 mcg PO DAILY SUPPLEMENT 04/05/23 11/26/24 09:00 History mcg (1,000 unit) capsule zinc acetate 25 mg (zinc) capsule 50 mg PO DAILY SUPPLEMENT 04/05/23 11/26/24 09:00 History ascorbic acid (vitamin C) 500 mg 500 mg PO DAILY SUPPLEMENT 09/15/24 11/26/24 09:00 History capsule ferrous sulfate 325 mg (65 mg 325 mg PO QDAY SUPPLEMENT 09/15/24 11/26/24 09:00 History iron) tablet (Feosol) gabapentin 300 mg capsule 300 mg PO QHS PAIN 10/31/24 11/25/24 22:30 History amlodipine 10 mg tablet 10 mg PO DAILY htn 11/27/24 11/26/24 09:00 History acetaminophen 500 mg tablet 500 mg PO Q6H #30 tabs 11/29/24 Unknown Rx methocarbamol 500 mg tablet 750 mg (1.5 x 500 mg) PO TID PRN 11/29/24 Unknown Rx pain/spasms #60 tabs oxycodone 5 mg tablet 2.5 - 5 mg (0.5 - 1 x 5 mg) PO Q6H 11/29/24 Unknown Rx PRN pain 7 days #28 tabs sennosides 8.6 mg-docusate sodium 2 tab PO BID PRN constipation #30 11/29/24 Unknown Rx 50 mg tablet (Stimulant Laxative tabs Plus) Allergy/AdvReac Type Severity Reaction Status Date / Time tetanus and diphtheria Allergy Rash Verified 12/01/24 22:00 toxoids Vgdwkda-YBC-QpN Reductase AdvReac Other Verified 12/01/24 22:00 Inhibitor (Tdqqedc-Bze-Ghv Reductase Inhibitor) Family History Father Diabetes Heart disease Myocardial infarction Mother CAD (coronary artery disease) Arthritis Surgical History History of right-sided carotid endarterectomy History of right-sided carotid endarterectomy (~11/2017) History of umbilical hernia S/P ventral herniorrhaphy S/P inguinal hernia repair S/P colonoscopy Social History Smoking Status: Former smoker Vital Signs Vital Signs Vital Signs: 12/01/24 22:01 12/02/24 00:00 Temperature 97.6 F L Temperature Source Oral Pulse Rate 62 125 H Respiratory Rate 18 20 H Blood Pressure 153/95 H 167/90 H Blood Pressure Mean 114 115 Pulse Ox 95 96 Oxygen Delivery Method Room Air Room Air Weight Weight: 168 lb 10.458 oz Body Mass Index (BMI) 28.0 Physical Exam Const alert Constitutional Narrative: Mild distress General Appearance: cooperative Resp Resp Narrative: Mildly tachypneic GI GI Narrative: Moderately to severely distended, taut, tympanitic, tender to palpation but not frankly peritoneal. No visible hernias. Results Lab / Micro Data 12/01/24 22:15 12/01/24 22:15 Labs: Laboratory Results - last 24 hr 12/01/24 22:15: WBC 12.1 H, RBC 3.91 L, Hgb 12.2 L, Hct 35.9 L, MCV 91.8, MCH 31.2, MCHC 34.0, RDW Std Deviation 41.3, RDW Coeff of Disha 12.3, Plt Count 436, MPV 11.1, Immature Gran % (Auto) 0.300, Neut % (Auto) 84.2 H, Lymph % (Auto) 7.9 L, [place] % (Auto) 6.7, Eos % (Auto) 0.3, Baso % (Auto) 0.6, Absolute Neuts (auto) 10.2 H, Absolute Lymphs (auto) 0.96, Nucleated RBC % 0, Sodium 136, Potassium 4.1, Chloride 101, Carbon Dioxide 16.6 L, Anion Gap 19 H, BUN 58 H, Creatinine 2.00 H, Estim Creat Clear Calc 29.06 L, Est GFR (MDRD) Non-Af 34 L, BUN/Creatinine Ratio 29.0 H, Glucose 131 H, Calcium 9.8, Total Bilirubin 0.66, AST 42 H, ALT 11, Alkaline Phosphatase 62, Total Protein 7.6, Albumin 4.1, Globulin 3.6, Albumin/Globulin Ratio 1.1, Lipase 13 12/01/24 22:28: Urine Color Yellow, Urine Clarity Clear, Urine pH 5.0, Ur Specific [place] 1.015, Urine Protein 100 H, Urine Glucose (UA) Normal, Urine Ketones 5 H, Urine Occult Blood 10 H, Urine Nitrite Negative, Urine Bilirubin Negative, Urine Urobilinogen Normal, Ur Leukocyte Esterase Negative, Urine RBC 0 SEEN, Urine WBC 0-5 SEEN, Ur Squamous Epith Cells 0 SEEN, Amorphous Sediment 1+, Urine Bacteria 2+, Hyaline Casts 0-5 SEEN, Fine Granular Casts 0-5 SEEN, Urine Mucus 0 SEEN 12/02/24 00:41: Lactic Acid 1.5 Imaging Radiology Impression Abdomen/Pelvis CT 12/01/24 22:18 IMPRESSION: 1. Mild acute sigmoid diverticulitis, with scattered foci of free air, likely secondary to micro perforations. 2. Diffusely dilated ascending, transverse and proximal descending colonic loops, with pneumatosis as described above. Reading Location: [facility] Assessment & Plan Assessment/Plan (1) Free intraperitoneal air: PLAN: Patient is a 79-year-old male postoperative day 5 from lumbar fusion who presents with evidence of severe constipation and associated abdominal pain, distention, and nausea/vomiting. 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 Patient is markedly distended but not frankly peritoneal. He is tachycardic with a irregular rhythm but his blood pressure remains slightly high. I requested a check of patient's lactic acid which is within normal limits. In my independent review of the patient's CT imaging the pockets of free air appear to track towards the retroperitoneum and are in reasonably close proximity to recent instrumentation of the patient's lumbar spine. I have conversed with our spine surgeon and he is adamant there is no reason to suspect that his operation is the source for this air. Therefore, taken together it appears patient's severe colonic distention has led to at least partial thickness compromise of the bowel and his clinical picture suggests possible recent microperforation versus impending large free wall perforation. I suggested that if this were to materialize, patient could potentially require total abdominal colectomy and the magnitude of this operation seems greater than what we can offer with limited resources at this facility?to say nothing of the probable need for intensive care support which is also limited. I reviewed the CT images with the patient's family to illustrate my points throughout this discussion and they confirmed understanding both directly and through insightful questions. All questions were answered to their satisfaction and they agreed with transfer to tertiary facility. Emergency medicine was notified of this intent and begin the transfer process. In the meantime I asked for a basal fluid rate to be established intravenously (patient already received empiric IV antibiotics from emergency medicine) to try to maintain patient's perfusion and requested a EKG be performed to follow-up patient's tachyarrhythmia. Lastly I notified Dr. Underwood of spine surgery of patient's imminent transfer. Paco Smith MD General Surgery Endocrine Surgery Pager: [facility] [address] [place] [address], [address] [place] [address] Office: [phone] (2) Pneumatosis coli: (3) Colon distention: Charges/Coding Visit Charges Office Visits / Consults: 61678 ED Visit; High/Urgent Severity
[2024-12-02 02:00] VITALS: BP 139/77; PULSE 124; RESP 19; O2SAT 97
[2024-12-02] MEDS: 0.9% Normal Saline (1000mL) 1,000 ML 100 ML IV (02:29)
[2024-12-02 02:33] VITALS: BP 152/86; PULSE 120; RESP 16; TEMP 37.1; O2SAT 99
== END 2024-12-02 02:36 | disposition short-term general hospital (02) ==
PROVIDERS: Surgery; Emergency Provider Emergency Medicine; PCP Nurse Practitioner Family; Referring Provider Emergency Medicine; Visit Provider Emergency Medicine
DX: R14.0 Abdominal distension (gaseous) (principal); N18.4 Chronic kidney disease, stage 4 (severe); E11.22 Type 2 diabetes mellitus with diabetic chronic kidney disease; K63.89 Other specified diseases of intestine; E78.5 Hyperlipidemia, unspecified; I12.9 Hypertensive chronic kidney disease with stage 1 through stage 4 chronic kidney disease, or unspecified chronic kidney disease; Z79.899 Other long term (current) drug therapy; Z79.82 Long term (current) use of aspirin; Z79.84 Long term (current) use of oral hypoglycemic drugs; Z87.891 Personal history of nicotine dependence
CPT/HCPCS: 74177; 80053; 81001; 83605; 83690; 85025; 93005; 96361; 96365; 96366; 96367; 96375; 99285; Q9967; A4216; J2405

== ENCOUNTER 2024-12-26 19:37 | Inpatient (IN) | payer MEDICARE, OTHER, SELFPAY ==
[2024-12-26 19:46] VITALS: RESP 16
[2024-12-26 19:56] VITALS: BP 121/67; PULSE 82; RESP 16; TEMP 36.7; O2SAT 99
--- NOTE | 2024-12-26 20:22 | PCM.HP.STD ---
[facility] - General General Date of Admission: 12/26/24 Date of Service: 12/27/24 Chief Complaint: Here for rehabilitation. [facility] Narrative SYD BARNETT, is a 79 Male who presents with followin11/27/2024 Dr. Colon performed L2 - L5 posterior spinal instrumented fusion. 12/01/2024 [facility] ED with abdominal pain. Abdominal pain, distention, nausea, vomiting, feels full of air. CT abdomen/pelvis showed mild acute diverticulitis, microperforation, dilated colonic loops, pneumatosis. Surgical history significant for ventral hernia repair with mesh x 4. Transfer to [facility]. 12/02/2024 Admit to [facility] SICU. Zosyn iv for microperforation, close monitoring of abdominal exam. Later that evening, patient developed worsening abdominal pain, tachycardia. He was emergently taken to OR for exploratory laparotomy, right hemicolectomy, partial colectomy of proximal transverse colon, with placement of wound VAC by Dr. Rhodes with findings of severe venous congestion of the entire ascending colon and proximal transverse, several large colon serosal splits. 12/03/2024 Cardiology consulted for elevated BNP, uptrending troponin, EKG with nstemi. Echo showed EF 36%, hypokinesia, aortic stenosis. 12/04/2024 Return to OR for second look exploratory laparotomy with creation of mucous fistula end ileostomy with Dr. Lieberman. 12/05/2024 Emesis with suspected aspiration, NG placed. 12/06/2024 Intubated for worsening tachypnea, respiratory distress. Cardiology diagnosed Type 2 nstemi, HFrEF (EF 30% with severe aortic stenosis, wall motion abnormality). 12/08/2024 Extubated, began having bowel function. 12/09/2024 Transferred to regular nursing floor. 12/10/2024 SENIOR FACILITIES MANAGER recommended full solids, thin liquids. Elevated WBC, CT abdomen/pelvis showed moderate volume of free fluid in LUQ. 12/12/2024 IR placed drain for LUQ free fluid. 12/13/2024 Respiratory distress 2/2 fluid overload, transfer back to ICU. Nephrology consulted for HAMMAD, managed aggressive diuresis. Speech evaluation recommended NPO, tubefeeding started. 12/17/2024 Transferred to regular nursing floor. 12/19/2024 ENT with flexible laryngoscopy showed intact vocal cord motion and oral/pharygneal dysphagia, hoarseness 2/2 pulmonary support. 12/20/2024 Lethargic, CT head negative, Nephrology recommended dialysis 2/2 elevated BUN. 12/21/2024 Temporary non-tunneled dialysis catheter placed in right internal jugular, dialysis 1 of 3 sessions started. 12/24/2024 Patient failed voiding trial, Peña catheter reinserted. Urology recommended Tamsulosin, Finasteride, repeat voiding trial in 1 week. 12/25/2024 IR removed LUQ drain. 12/26/2024 Kidney function stable, Nephrology did not think he needed any more dialysis, temporary dialysis catheter removed. Tolerating diet, ostomy function. PT/OT for TCU. 12/26/2024 Admit to TCU with debility, here for rehabilitation, strengthening, prior to discharge home with . TAVR clinic for severe aortic stenosis. Lisinopril, HCTZ, amlodipine stopped, Coreg, imdur started. Glimepiride, Metformin stopped, Glargine 14 units daily with SSI started. [facility] Medical History (Updated 12/26/24 @ 20:[address] Arnulfo Londono MD) CKD (chronic kidney disease), stage IV Wears glasses Wears dentures BPH (benign prostatic hyperplasia) Arthritis Prostate disease Low iron History of diverticulitis Heartburn Former smoker Leg cramps History of echocardiogram Hypertrophic scar Carotid stenosis, left Sebaceous cyst Amaurosis fugax of right eye Sciatica Hyperlipidemia Osteoarthritis Hemorrhoid GERD (gastroesophageal reflux disease) HTN (hypertension) Diabetes Carotid stenosis Home Medications ?Medication ?Instructions ?Recorded ?Last Taken ?Type aspirin 81 mg tablet,delayed 81 mg PO DAILY@0800 heart [facility] 04/16/17 11/26/24 09:00 History release glimepiride 2 mg tablet 2 mg PO BREAKFAST dm 04/16/17 11/26/24 09:00 History hydrochlorothiazide 25 mg tablet 25 mg PO DAILY bp 04/16/17 11/26/24 09:00 History metformin 1,000 mg tablet 1,000 mg PO BID dm 04/16/17 11/26/24 19:30 History tamsulosin 0.4 mg capsule 0.4 mg PO QHS bph 04/16/17 11/26/24 22:30 History cholecalciferol (vitamin D3) 25 25 mcg PO DAILY SUPPLEMENT 04/05/23 11/26/24 09:00 History mcg (1,000 unit) capsule zinc acetate 25 mg (zinc) capsule 50 mg PO DAILY SUPPLEMENT 04/05/23 11/26/24 09:00 History ascorbic acid (vitamin C) 500 mg 500 mg PO DAILY SUPPLEMENT 09/15/24 11/26/24 09:00 History capsule ferrous sulfate 325 mg (65 mg 325 mg PO QDAY SUPPLEMENT 09/15/24 11/26/24 09:00 History iron) tablet (Feosol) gabapentin 300 mg capsule 300 mg PO QHS PAIN 10/31/24 11/25/24 22:30 History amlodipine 10 mg tablet 10 mg PO DAILY htn 11/27/24 11/26/24 09:00 History acetaminophen 500 mg tablet 500 mg PO Q6H #30 tabs 11/29/24 Unknown Rx methocarbamol 500 mg tablet 750 mg (1.5 x 500 mg) PO TID PRN 11/29/24 Unknown Rx pain/spasms #60 tabs oxycodone 5 mg tablet 2.5 - 5 mg (0.5 - 1 x 5 mg) PO Q6H 11/29/24 Unknown Rx PRN pain 7 days #28 tabs sennosides 8.6 mg-docusate sodium 2 tab PO BID PRN constipation #30 11/29/24 Unknown Rx 50 mg tablet (Stimulant Laxative tabs Plus) Allergy/AdvReac Type Severity Reaction Status Date / Time atorvastatin (From Lipitor) Allergy INTOLERANCE Verified 12/26/24 20:42 ezetimibe (From Zetia) Allergy MYALGIA Verified 12/26/24 20:42 pravastatin Allergy MYALGIAS Verified 12/26/24 20:42 simvastatin (From Zocor) Allergy INTOLERANCE Verified 12/26/24 20:42 sitagliptin (From Januvia) Allergy INTOLERANCE Verified 12/26/24 20:42 tetanus and diphtheria Allergy Rash Verified 12/01/24 22:00 toxoids Iyoswjd-VRR-VmY Reductase AdvReac Other Verified 12/01/24 22:00 Inhibitor (Usaihtc-Ogc-Zaq Reductase Inhibitor) Family History Father Diabetes Heart disease Myocardial infarction Mother CAD (coronary artery disease) Arthritis Surgical History (Updated 12/26/24 @ 20:[address] Arnulfo Londono MD) History of ileostomy History of right hemicolectomy History of partial colectomy History of right-sided carotid endarterectomy History of right-sided carotid endarterectomy (~11/2017) History of umbilical hernia S/P ventral herniorrhaphy S/P inguinal hernia repair S/P colonoscopy Social History (Updated 12/26/24 @ 20:[address] Arnulfo Londono MD) household members: spouse Smoking Status: Former smoker alcohol intake: never substance use type: does not use ROS Constitutional Constitutional: Reports weakness; Denies chills, fever(s) or weight gain ENT HEENT: Denies headache(s), nasal congestion or nasal discharge Cardiovascular Cardiovascular: Denies chest pain or palpitations Respiratory/Chest Respiratory/Chest: Denies cough, excessive phlegm production or shortness of breath with exertion Gastrointestinal Gastrointestinal: Denies abdominal pain, nausea or vomiting Genitourinary Genitourinary: Denies dysuria Musculoskeletal Musculoskeletal: Denies joint pain or joint swelling Integumentary Integumentary: Denies rash or wounds Neurologic Neurologic: Denies focal weakness, numbness or tingling Psychiatric Psychiatric: Denies anxiety, auditory hallucinations, depression, homicidal ideation or suicidal ideation Vital Signs Vital Signs Vital Signs: 12/26/24 19:56 Temperature 98.0 F Temperature Source Oral Pulse Rate 82 Respiratory Rate 16 Blood Pressure 121/67 H Blood Pressure Mean 85 Blood Pressure Source Monitor Blood Pressure Position Semi-Fowlers Blood Pressure Location Left Arm Pulse Ox 99 Oxygen Delivery Method Room Air Physical Exam Const alert General Appearance: cooperative HEENT normocephalic Eyes PERRL and EOMs intact bilaterally Neck supple, no JVD and no carotid bruits Resp normal respiratory effort, normal air movement and clear to auscultation bilaterally Cardio regular rate and regular rhythm GI normal to inspection, nondistended, normoactive bowel sounds, non-tender and non-distended GI Narrative: Ileostomy right midline, bag with yellow brown stool. Bladder / Kidney Exam: catheter in place urethral Extremity normal capillary refill General Extremity: Negative for edema Skin no rashes or lesions noted General Skin Exam: no breakdown Psych affect normal Appearance: appropriate Assessment & Plan Assessment/Plan (1) Debility: (2) Perforation of sigmoid colon due to diverticulitis: (3) Sepsis: (4) Acute respiratory failure with hypoxia: (5) NSTEMI (non-ST elevated myocardial infarction): (6) Acute HFrEF (heart failure with reduced ejection fraction): (7) Severe aortic stenosis: (8) Acute renal failure on dialysis: (9) Dysphagia: (10) Urinary retention: (11) Diabetes: (12) Essential (primary) hypertension: (13) BPH (benign prostatic hyperplasia): (14) Iron deficiency anemia: (15) Diabetic polyneuropathy: (16) Muscle spasm: PLAN: Plan 79 year old male with below past medical history hospitalized for sepsis, perforated sigmoid diverticulitis, underwent right hemicolectomy, partial colectomy (transverse colon), ileostomy, complicated by acute respiratory failure requiring intubation, acute HFrEF, acute kidney failure requiring dialysis, nstemi, severe aortic stenosis, dysphagia, urinary retention, admitted to TCU with debility, here for rehabilitation, strengthening, prior to discharge home with . Debility - PT/OT. Pain - Tylenol 1000mg q6 prn pain (1-10). Bowel - senna/colace 1 tablet bid. Adult immunization - Administer pneumonia vaccine, covid vaccine, flu vaccine as appropriate. DVT prophylaxis - Lovenox 30mg sc daily. NSTEMI - Coreg 6.25mg bidcm, Isosorbide 10mg tid, Aspirin 81mg daily. Chronic HFrEF (EF 36%) - Coreg 6.25mg bidcm, Isosorbide 10mg tid. Aortic stenosis (severe) - TAVR once recovered. Thrush - Nystatin 500,000 units 4x/day thru 01/02/2025. BPH/urinary retention - Finasteride 5mg daily, Tamsulosin 0.4mg qhs, indwelling peña catheter, voiding trial in 1 week. Diabetic polyneuropathy - Gabapentin 300mg qhs. Diabetes Mellitus II - Glargine 14 units qam, Lispro 4 units tidac.
--- NOTE | 2024-12-26 20:31 | NURSING ---
Dr. Londono notified of new admission via secure backline text, per Dr. Londono discontinue sliding scale as ordered on discharge med list.
[2024-12-26] MEDS: Tamsulosin HCl 0.4 MG Capsule PO (23:01)
[2024-12-26] MEDS: NYSTATIN 500,000 UNIT/5 ML UDC 500000 UNIT PO (23:02)
[2024-12-26] MEDS: Gabapentin 300 MG Capsule PO (23:02)
[2024-12-26] MEDS: Senna/Docusate Sodium 1 Tablet PO (23:02)
[2024-12-26] MEDS: Isosorbide DN 10 MG Tablet PO (23:02)
[2024-12-26] MEDS: Acetaminophen 500 MG Tablet 1000 MG PO (23:02)
[2024-12-27 00:08] LABS: Bedside Glucose 137 mg/dL (74-106)
[2024-12-27] MEDS: Acetaminophen 500 MG Tablet 1000 MG PO (06:09)
[2024-12-27] MEDS: NYSTATIN 500,000 UNIT/5 ML UDC 500000 UNIT PO ×4 (06:09→20:27)
[2024-12-27] MEDS: Isosorbide DN 10 MG Tablet PO ×3 (06:09→20:27)
[2024-12-27] MEDS: Enoxaparin 30 MG/0.3 ML Syringe SC (06:10)
[2024-12-27 06:51] LABS: Bedside Glucose 150 mg/dL (74-106)
--- NOTE | 2024-12-27 06:55 | NURSING ---
unable to contact testing machine operator regarding family and pt request for items pt refuses to eat . Will make day shift rn aware of family and pt request to pass along
[2024-12-27] MEDS: Carvedilol 6.25 MG Tablet PO ×2 (08:42→18:00)
[2024-12-27] MEDS: Senna/Docusate Sodium 1 Tablet PO (08:43)
[2024-12-27] MEDS: Finasteride 5 MG Tablet PO (08:43)
[2024-12-27] MEDS: Aspirin 81 MG TAB.CHEW PO (08:43)
[2024-12-27] MEDS: Insulin Glargine-YFGN 100 UNIT/ML Pen 14 UNIT SC (08:43)
[2024-12-27] MEDS: Insulin Lispro 100 UNIT/ML INSULN.PEN SC ×3 (08:51→18:00)
--- NOTE | 2024-12-27 10:35 | RAD_ITS ---
EXAM: XR Chest, 2 Views CLINICAL INDICATION: LEFT LOWER LOBE CRACKLES. TECHNIQUE: Frontal and lateral views of the chest. COMPARISON: No relevant prior studies available. FINDINGS: LUNGS AND PLEURAL SPACES: Unremarkable. No consolidation. No pneumothorax. HEART: Unremarkable. No cardiomegaly. MEDIASTINUM: Unremarkable. Normal mediastinal contour. BONES/JOINTS: Unremarkable. No acute fracture. RAD/Chest PA and Lateral IMPRESSION: No acute cardiopulmonary process. Reading Location: [facility]
[2024-12-27 11:38] LABS: Bedside Glucose 242 mg/dL (74-106)
[2024-12-27] MEDS: Tuberculin,Purif.prot.deriv. 50 TU/ML Vial 0.1 ML ID (12:04)
--- NOTE | 2024-12-27 13:00 | WOUNDNOTE ---
stoma photo: right upper abdomen
--- NOTE | 2024-12-27 13:03 | WOUNDNOTE ---
Was asked to see patient for new ileostomy. pt states he had back surgery here in November and was discharged home 2 days later. pt states he came back to the hospital d/t bowel obstruction and was sent to [facility]. per , a portion of the small bowel was . states she has had some experience with ostomies because her mother had one. changed the appliance with patient and so this nurse could assess the stoma better and to start the education with them for home. Pt currently with a 1 piece flat [place] appliance. removed the appliance. there was a small amount of unformed brown stool in the pouch. stoma measures approx 1 and is slightly oval in shape. there is a slight mucocutaneous separation from approx 4-8 o'clock. the peristomal skin is intact. cleansed the skin with warm water. pat dry. a new 2 piece flat [place] appliance placed with a small amount of stoma paste. demonstrated how to empty and clean the end of the pouch with patient and as well. discussed the different types of appliances, etc. will continue education with patient and . both appreciative and aware to call for further questions or concerns.
--- NOTE | 2024-12-27 15:34 | NURSING ---
Brake Shoe Rebuilder Note; Activity Asset: Alejandra Shepherd is independent in his choice of daily activities. His will visits daily and bring him items he may need. He has a smartphone but not here. He prefers in room activities over group, watches tv, reads the paper. Staff will remind him of weekly activities and respect his right to say no.
[2024-12-27 16:00] VITALS: BP 94/63; PULSE 92; RESP 18; TEMP 36.6; O2SAT 99
--- NOTE | 2024-12-27 16:22 | PCM.PN.DRR ---
Documented by User: Lucy Kowalski 12/27/24 16:34 TCU RX Drug Regimen Review Subjective/Objective Subjective/Objective Subjective: TCU Admission. 79 YOM presented to ER with abdominal pain. Hospitalized for sepsis, perforated sigmoid diverticulitis, underwent right hemicolectomy, partial colectomy (transverse colon), ileostomy, complicated by acute respiratory failure requiring intubation, acute HFrEF, acute kidney failure requiring dialysis, nstemi, severe aortic stenosis, dysphagia, urinary retention. Admitted to TCU with debility for strengthening and rehabilitation. Objective: Allergies atorvastatin (From Lipitor) Allergy (Verified 12/26/24 20:42) INTOLERANCE ezetimibe (From Zetia) Allergy (Verified 12/26/24 20:42) MYALGIA INTOLERANCE pravastatin Allergy (Verified 12/26/24 20:42) MYALGIAS INTOLERANCE simvastatin (From Zocor) Allergy (Verified 12/26/24 20:42) INTOLERANCE sitagliptin (From Januvia) Allergy (Verified 12/26/24 20:42) INTOLERANCE tetanus and diphtheria toxoids Allergy (Verified 12/01/24 22:00) Rash Qhalqbb-LWJ-OtQ Reductase Inhibitor (Qysgchz-Ooe-Dlf Reductase Inhibitor) Adverse Reaction (Verified 12/01/24 22:00) Other Current Medications Generic Name Dose Route Start Last Admin Trade Name Freq PRN Reason Stop Dose Admin Acetaminophen 1,000 mg 12/26/24 20:56 12/27/24 06:09 Acetaminophen 500 Mg Tablet PO 1,000 mg Q6H PRN PRN Administration Pain Score 1-10 Aspirin 81 mg 12/27/24 08:00 12/27/24 08:43 Aspirin 81 Mg Tab.Chew PO 81 mg BREAKFAST LATANYA Administration Carvedilol 6.25 mg 12/27/24 08:00 12/27/24 08:42 Carvedilol 6.25 Mg Tablet PO 6.25 mg BIDCM LATANYA Administration Protocol Enoxaparin Sodium 30 mg 12/27/24 06:00 12/27/24 06:10 Enoxaparin 30 Mg/0.3 Ml Syringe SC 30 mg DAILY@0600 LATANYA Administration Finasteride 5 mg 12/27/24 10:00 12/27/24 08:43 Finasteride 5 Mg Tablet PO 5 mg DAILY LATANYA Administration Gabapentin 300 mg 12/26/24 22:00 12/26/24 23:02 Gabapentin 300 Mg Capsule PO 300 mg QHS LATANYA Administration Insulin Glargine 14 unit 12/27/24 10:00 12/27/24 08:43 Insulin Glargine-Yfgn 100 Unit/Ml Pen SC 14 unit QAM LATANYA Administration Insulin Human Lispro 4 unit 12/27/24 06:45 12/27/24 12:04 Insulin Lispro 100 Unit/Ml Insuln.Pen SC 4 u TIDAC LATANYA Administration Isosorbide Dinitrate 10 mg 12/26/24 22:00 12/27/24 13:49 Isosorbide Dn 10 Mg Tablet PO 10 mg TID LATANYA Administration Protocol Nystatin 500,000 unit 12/26/24 22:00 12/27/24 13:49 Nystatin 500,000 Unit/5 Ml Udc PO 01/02/25 22:01 500,000 unit 4X/DAY LATANYA Administration Senna/Docusate Sodium 1 tablet 12/26/24 22:00 12/27/24 08:43 Senna/Docusate Sodium 1 Tablet PO 1 tablet BID LATANYA Administration Tamsulosin HCl 0.4 mg 12/26/24 22:00 12/26/24 23:01 Tamsulosin Hcl 0.4 Mg Capsule PO 0.4 mg QHS LATANYA Administration Tuberculin PPD 0.1 ml 01/03/25 10:00 Tuberculin,Purif.Prot.Deriv. 50 Tu/Ml Vial ID 01/03/25 10:01 X1 ONE Problem List (Updated 12/26/24 @ 20:[address] Arnulfo Londono MD) Muscle spasm (Acute) Diabetic polyneuropathy (Acute) Iron deficiency anemia (Acute) BPH (benign prostatic hyperplasia) (Acute) Essential (primary) hypertension (Acute) Diabetes (Acute) Urinary retention (Acute) Dysphagia (Acute) Acute renal failure on dialysis (Acute) Severe aortic stenosis (Acute) Acute HFrEF (heart failure with reduced ejection fraction) (Acute) NSTEMI (non-ST elevated myocardial infarction) (Acute) Acute respiratory failure with hypoxia (Acute) Sepsis (Acute) Perforation of sigmoid colon due to diverticulitis (Acute) Debility (Acute) Vital Signs Temp Pulse Resp BP Pulse Ox O2 Del Method 98.0 F 82 16 121/67 H 99 Room Air 12/26/24 19:56 12/26/24 19:56 12/26/24 19:56 12/26/24 19:56 12/26/24 19:56 12/26/24 19:56 Oxygen Delivery Method Room Air Assessment/Plan: 1. Pain: acetaminophen 1000mg PO Q6H PRN pain 1-10. Resident has had 2 doses for pain scores of 4 (hip) and 6 (abdomen). Please continue to monitor for increased pain, PRN usage and LFTs (last 12/01/24). 2. Bowel: senna/docusate 1T PO BID. Please continue to monitor for constipation and diarrhea. Last documented bowel movement was 12/26/24. 3. DVT prophylaxis: enoxaparin 30mg SC daily. No new SCr or weight available to calculate CrCl. Please continue to monitor hemoglobin (last 12.2g/dL from 12/01/24, new labs pending tomorrow morning), S/S of bleeding and CrCl (labs tomorrow morning). 4. NSTEMI/chronic HFrEF: carvedilol 6.35mg PO BID, isosorbide dinitrate 10mg PO TID and aspirin 81mg PO daily. Please continue to monitor for S/S of bleeding/cardiac event, HR (last 82), BP (last 121/67), chest pain, headache, facial flushing. 5. Diabetes mellitus II: insulin glargine 14units SC AM and insulin lispro 4units SC TIDAC. Please continue to monitor for S/S of hypoglycemia, glucose (last 242mg/dL), and hemoglobin A1c (last 5.8% 11/02/24). 6. BPH/urinary retention: finasteride 5mg PO daily, tamsulosin 0.4mg PO QHS. Please continue to monitor for S/S of urinary retention, BPH, GI side effects and BP (last 121/67). 7. Diabetic polyneuropathy: gabapentin 300mg PO QHS. Please continue to monitor for pain, confusion, renal function, falls/fractures (BEERs). 8. Thrush: nystatin 500,000units PO 4x/day thru 01/02/25. Please continue to monitor for improvement in thrush. Assessment/Plan for indications treated with psychotropic medications: Resident is not prescribed scheduled or prn psychotropic medications at the time of this drug regimen review. Medical chart and medication regimen reviewed. The following medication irregularities or issues were identified: None Date Date of Note: 12/27/24 Documented by User: Dr. Arnulfo Londono MD 12/27/24 17:03 TCU RX Drug Regimen Review Provider Comments Provider responsibility Provider Comments to Recommendations by Pharmacy Agree
[2024-12-27 16:43] LABS: Bedside Glucose 208 mg/dL (74-106)
[2024-12-27 19:55] VITALS: PULSE 86; RESP 17; O2SAT 97
[2024-12-27] MEDS: Gabapentin 300 MG Capsule PO (20:27)
[2024-12-27] MEDS: Tamsulosin HCl 0.4 MG Capsule PO (20:27)
[2024-12-27 21:55] LABS: Bedside Glucose 167 mg/dL (74-106)
[2024-12-28 04:00] VITALS: BP 122/71; PULSE 88; RESP 16; RESP 18; TEMP 36.2; O2SAT 97
[2024-12-28 05:58] LABS: Absolute Lymphocyte Count 1.52 X10^3/uL (0.83-4.51); Absolute Neutrophil Count 5.5 X10^3/uL (2.0-7.7); Basophil# 0.05 X10^3/uL; Basophil% 0.6 % (0-1); Eosinophil# 0.55 X10^3/uL; Eosinophils% 6.8 % (0-5); Hemoglobin 8.6 g/dL (13.0-16.5); Lymphocyte # 1.52 X10^3/ul (0.83-4.51); Lymphocyte % 18.8 % (19-41); Mean Corp Hgb Conc 33.1 g/dL (32-36); Mean Corpuscular Volume 90.6 fL (80-94); Mean Platelet Vol. 11.1 fl (6.2-12.0); Monocyte# 0.46 X10^3/uL; Monocyte% 5.7 % (0-10); NRBC Flagged by Analyzer 0 % (0-5); Neutrophil # 5.48 X10^3/uL (2.7-7.7); Neutrophil % 67.7 % (47-70); Platelet Count 399 K/mm3 (150-450); RBC Distribution Width CV 14.5 % (11.6-14.6); RBC Distribution Width SD 47.6 fl (35.1-43.9); Red Blood Count 2.87 M/mm3 (4.6-6.2); White Blood Count 8.1 K/mm3 (4.4-11.0)
[2024-12-28 06:29] LABS: Anion Gap 12 (5-15); BUN 58 mg/dL (4-19); BUN/Creat Ratio 27.6 RATIO (10-20); Calcium,Total 8.8 mg/dL (7.6-11.0); Carbon Dioxide 18.8 mmol/L (21.0-32.0); Chloride 103 mmol/L (98-108); Creatinine, Serum 2.08 mg/dL (0.70-1.20); EST Glomerular Filtration Rate 32 (>60); Glucose 169 mg/dL (70-99); Potassium 5.2 mmol/L (3.3-5.1); Sodium Level 134 mmol/L (133-145)
[2024-12-28 06:37] LABS: Bedside Glucose 150 mg/dL (74-106)
[2024-12-28] MEDS: NYSTATIN 500,000 UNIT/5 ML UDC 500000 UNIT PO ×4 (06:44→23:20)
[2024-12-28] MEDS: Enoxaparin 30 MG/0.3 ML Syringe SC (06:45)
[2024-12-28] MEDS: Isosorbide DN 10 MG Tablet PO ×3 (06:45→23:17)
[2024-12-28] MEDS: Nystatin Powder 15gm Bottle 1 APPLIC TOPICAL ×3 (06:45→23:18)
[2024-12-28 09:05] VITALS: BP 120/66; PULSE 94; RESP 17; TEMP 36.4; O2SAT 99
[2024-12-28] MEDS: Insulin Lispro 100 UNIT/ML INSULN.PEN SC ×3 (09:07→17:39)
[2024-12-28] MEDS: Sodium Polystyrene Sulfonate 15 GM/60 ML UDC PO (09:07)
[2024-12-28] MEDS: Insulin Glargine-YFGN 100 UNIT/ML Pen 14 UNIT SC (09:08)
[2024-12-28] MEDS: Menthol/Lanolin/Calamine/Znox 113 GM Tube 1 APPLIC TOPICAL ×2 (09:08→23:16)
--- NOTE | 2024-12-28 09:35 | CASEMGMT ---
Social Work SW met with patient and pt's to complete initial assessment. SW introduced self and role of SW. Pt confirmed code status as full code. SW requested pt and bring copy of advance directives to the hospital for scanning into the medical record. SW educated to Medicare benefit and encouraged pt to contact secondary insurance to ensure copay coverage. Pt's goal is to return home with his and to previous level of independence. SW to continue to follow for dc planning and support. DONNA Sahni
[2024-12-28] MEDS: Carvedilol 6.25 MG Tablet PO ×2 (10:56→17:39)
[2024-12-28] MEDS: Finasteride 5 MG Tablet PO (10:56)
[2024-12-28] MEDS: Aspirin 81 MG TAB.CHEW PO (10:56)
[2024-12-28 12:02] LABS: Bedside Glucose 171 mg/dL (74-106)
[2024-12-28 15:02] VITALS: BP 114/67; PULSE 99
[2024-12-28 16:25] LABS: Bedside Glucose 171 mg/dL (74-106)
[2024-12-28 17:36] VITALS: BP 118/68; PULSE 93
[2024-12-28 21:29] LABS: Bedside Glucose 132 mg/dL (74-106)
[2024-12-28 23:11] VITALS: BP 129/77; PULSE 87
[2024-12-28] MEDS: Tamsulosin HCl 0.4 MG Capsule PO (23:17)
[2024-12-28] MEDS: Gabapentin 300 MG Capsule PO (23:23)
[2024-12-29 05:49] VITALS: BP 121/72; PULSE 88
[2024-12-29 05:51] LABS: Absolute Lymphocyte Count 1.48 X10^3/uL (0.83-4.51); Absolute Neutrophil Count 3.3 X10^3/uL (2.0-7.7); Basophil# 0.05 X10^3/uL; Basophil% 0.8 % (0-1); Eosinophil# 0.53 X10^3/uL; Hematocrit 24.3 % (40-54); Lymphocyte # 1.48 X10^3/ul (0.83-4.51); Mean Corp Hgb Conc 32.9 g/dL (32-36); Mean Corpuscular Hgb 29.7 pg (27.0-32.0); Mean Corpuscular Volume 90.3 fL (80-94); Mean Platelet Vol. 11.1 fl (6.2-12.0); Monocyte# 0.53 X10^3/uL; NRBC Flagged by Analyzer 0 % (0-5); Neutrophil % 55.7 % (47-70); Platelet Count 404 K/mm3 (150-450); RBC Distribution Width CV 14.5 % (11.6-14.6); RBC Distribution Width SD 46.9 fl (35.1-43.9); Red Blood Count 2.69 M/mm3 (4.6-6.2); White Blood Count 5.9 K/mm3 (4.4-11.0)
[2024-12-29] MEDS: Isosorbide DN 10 MG Tablet PO ×3 (05:52→20:06)
[2024-12-29] MEDS: Nystatin Powder 15gm Bottle 1 APPLIC TOPICAL ×3 (05:52→20:07)
[2024-12-29] MEDS: NYSTATIN 500,000 UNIT/5 ML UDC 500000 UNIT PO ×4 (05:52→20:07)
[2024-12-29 06:19] LABS: Anion Gap 12 (5-15); BUN 53 mg/dL (4-19); BUN/Creat Ratio 26.2 RATIO (10-20); Calcium,Total 8.8 mg/dL (7.6-11.0); Carbon Dioxide 17.1 mmol/L (21.0-32.0); Chloride 104 mmol/L (98-108); Creatinine, Serum 2.03 mg/dL (0.70-1.20); EST Glomerular Filtration Rate 33 (>60); Glucose 140 mg/dL (70-99); Iron 20 ug/dL (65-175); Iron Binding Capacity,Unsat 178 ug/dL (228-428); Sodium Level 133 mmol/L (133-145)
[2024-12-29 06:21] LABS: Bedside Glucose 138 mg/dL (74-106)
[2024-12-29 06:42] LABS: Iron Binding Capacity,Total 198 ug/dL (250-450); PERCENT IRON SATURATION 10.1 % (9-55)
[2024-12-29 08:19] VITALS: BP 114/63; PULSE 94; RESP 16; TEMP 36.7; O2SAT 100
[2024-12-29] MEDS: Carvedilol 6.25 MG Tablet PO ×2 (08:21→17:25)
[2024-12-29] MEDS: Insulin Lispro 100 UNIT/ML INSULN.PEN SC ×3 (08:21→17:25)
[2024-12-29] MEDS: Menthol/Lanolin/Calamine/Znox 113 GM Tube 1 APPLIC TOPICAL ×2 (08:21→20:07)
[2024-12-29] MEDS: Insulin Glargine-YFGN 100 UNIT/ML Pen 14 UNIT SC (08:21)
[2024-12-29] MEDS: Finasteride 5 MG Tablet PO (08:22)
[2024-12-29 12:06] LABS: Bedside Glucose 168 mg/dL (74-106)
[2024-12-29 14:30] VITALS: BP 120/64; PULSE 82
--- NOTE | 2024-12-29 15:49 | NURSING ---
Updated Dr. Patino on patient's hgb and inquiring about trending labs this weekend. New orders entered by Dr. Schmidt. Iron to be given and recheck labs on Wednesday.
[2024-12-29 16:52] LABS: Bedside Glucose 151 mg/dL (74-106)
[2024-12-29] MEDS: Sodium Ferric Gluconat/Sucrose 125 MG in 0.9% Normal Saline (100mL Bag) 100 ML 110 MG IV (17:21)
[2024-12-29] MEDS: 0.9% Saline Lock 10 ML Syringe IV (17:22)
[2024-12-29 17:23] VITALS: BP 118/64; PULSE 83
[2024-12-29] MEDS: Tamsulosin HCl 0.4 MG Capsule PO (20:06)
[2024-12-29] MEDS: Gabapentin 300 MG Capsule PO (20:06)
[2024-12-29 20:22] VITALS: BP 119/62; PULSE 75
[2024-12-29 21:53] LABS: Bedside Glucose 224 mg/dL (74-106)
[2024-12-30 05:50] VITALS: BP 139/67; PULSE 69
[2024-12-30] MEDS: Isosorbide DN 10 MG Tablet PO ×3 (06:04→21:00)
[2024-12-30] MEDS: Nystatin Powder 15gm Bottle 1 APPLIC TOPICAL ×3 (06:06→20:59)
[2024-12-30] MEDS: NYSTATIN 500,000 UNIT/5 ML UDC 500000 UNIT PO ×4 (06:06→21:09)
[2024-12-30 06:55] LABS: Bedside Glucose 136 mg/dL (74-106)
[2024-12-30] MEDS: Insulin Lispro 100 UNIT/ML INSULN.PEN SC ×3 (09:26→18:03)
[2024-12-30] MEDS: Carvedilol 6.25 MG Tablet PO ×2 (09:27→18:02)
[2024-12-30] MEDS: Finasteride 5 MG Tablet PO (09:27)
[2024-12-30] MEDS: Menthol/Lanolin/Calamine/Znox 113 GM Tube 1 APPLIC TOPICAL ×2 (09:29→20:59)
[2024-12-30] MEDS: Senna/Docusate Sodium 1 Tablet PO ×2 (09:29→21:00)
[2024-12-30] MEDS: Insulin Glargine-YFGN 100 UNIT/ML Pen 14 UNIT SC (09:30)
[2024-12-30] MEDS: Acetaminophen 500 MG Tablet 1000 MG PO (10:35)
[2024-12-30 11:59] LABS: Bedside Glucose 158 mg/dL (74-106)
[2024-12-30 12:00] VITALS: RESP 18
[2024-12-30] MEDS: Sodium Ferric Gluconat/Sucrose 250 MG in 0.9% Normal Saline (250mL Bag) 250 ML 135 MG IV (14:13)
[2024-12-30 16:00] VITALS: BP 124/76; PULSE 81; RESP 16; TEMP 36.6; O2SAT 97
[2024-12-30 17:45] LABS: Bedside Glucose 119 mg/dL (74-106)
[2024-12-30] MEDS: Gabapentin 300 MG Capsule PO (21:00)
[2024-12-30] MEDS: Tamsulosin HCl 0.4 MG Capsule PO (21:07)
[2024-12-30 21:26] LABS: Bedside Glucose 137 mg/dL (74-106)
[2024-12-31] MEDS: Nystatin Powder 15gm Bottle 1 APPLIC TOPICAL ×3 (06:11→20:34)
[2024-12-31] MEDS: Isosorbide DN 10 MG Tablet PO ×3 (06:11→20:34)
[2024-12-31] MEDS: NYSTATIN 500,000 UNIT/5 ML UDC 500000 UNIT PO ×4 (06:12→20:35)
[2024-12-31 06:22] LABS: Bedside Glucose 134 mg/dL (74-106)
[2024-12-31 08:46] VITALS: BP 124/77; PULSE 86; RESP 16; TEMP 36.2; O2SAT 100
[2024-12-31] MEDS: Insulin Lispro 100 UNIT/ML INSULN.PEN SC ×3 (08:48→17:36)
[2024-12-31] MEDS: Menthol/Lanolin/Calamine/Znox 113 GM Tube 1 APPLIC TOPICAL ×2 (08:51→20:33)
[2024-12-31] MEDS: Carvedilol 6.25 MG Tablet PO ×2 (08:51→17:35)
[2024-12-31] MEDS: Finasteride 5 MG Tablet PO (08:52)
[2024-12-31] MEDS: Senna/Docusate Sodium 1 Tablet PO ×2 (08:53→20:35)
[2024-12-31] MEDS: Sodium Ferric Gluconat/Sucrose 250 MG in 0.9% Normal Saline (250mL Bag) 250 ML 135 MG IV (09:46)
[2024-12-31] MEDS: 0.9% Saline Lock 10 ML Syringe IV ×2 (09:50→20:35)
[2024-12-31] MEDS: Insulin Glargine-YFGN 100 UNIT/ML Pen 14 UNIT SC (09:56)
[2024-12-31 11:42] LABS: Bedside Glucose 138 mg/dL (74-106)
[2024-12-31 14:50] VITALS: PULSE 86; RESP 16; O2SAT 100
[2024-12-31] MEDS: Ensure Plus High Protein 120 ML LIQUID PO ×2 (17:34→20:40)
[2024-12-31 17:43] LABS: Bedside Glucose 122 mg/dL (74-106)
[2024-12-31] MEDS: Tamsulosin HCl 0.4 MG Capsule PO (20:34)
[2024-12-31] MEDS: Gabapentin 300 MG Capsule PO (20:34)
[2024-12-31 20:43] VITALS: BP 130/87; PULSE 92; RESP 18
[2024-12-31 21:26] LABS: Bedside Glucose 207 mg/dL (74-106)
[2025-01-01 05:44] LABS: Hematocrit 25.6 % (40-54); Hemoglobin 8.4 g/dL (13.0-16.5); Mean Corp Hgb Conc 32.8 g/dL (32-36); Mean Corpuscular Hgb 29.7 pg (27.0-32.0); Mean Corpuscular Volume 90.5 fL (80-94); Mean Platelet Vol. 10.6 fl (6.2-12.0); Platelet Count 431 K/mm3 (150-450); RBC Distribution Width CV 14.1 % (11.6-14.6); RBC Distribution Width SD 46.5 fl (35.1-43.9); Red Blood Count 2.83 M/mm3 (4.6-6.2); White Blood Count 6.8 K/mm3 (4.4-11.0)
[2025-01-01] MEDS: Ensure Plus High Protein 120 ML LIQUID PO ×2 (06:45→22:21)
[2025-01-01] MEDS: Nystatin Powder 15gm Bottle 1 APPLIC TOPICAL ×3 (06:45→22:27)
[2025-01-01] MEDS: Isosorbide DN 10 MG Tablet PO ×3 (06:45→22:25)
[2025-01-01] MEDS: NYSTATIN 500,000 UNIT/5 ML UDC 500000 UNIT PO ×4 (06:46→22:27)
[2025-01-01 08:04] LABS: Bedside Glucose 166 mg/dL (74-106)
[2025-01-01] MEDS: Menthol/Lanolin/Calamine/Znox 113 GM Tube 1 APPLIC TOPICAL ×2 (08:08→22:21)
[2025-01-01] MEDS: 0.9% Saline Lock 10 ML Syringe IV (08:08)
[2025-01-01] MEDS: Insulin Lispro 100 UNIT/ML INSULN.PEN SC ×3 (08:09→18:01)
[2025-01-01] MEDS: Finasteride 5 MG Tablet PO (08:11)
[2025-01-01] MEDS: Insulin Glargine-YFGN 100 UNIT/ML Pen 14 UNIT SC (08:11)
[2025-01-01] MEDS: Carvedilol 6.25 MG Tablet PO ×2 (08:11→18:01)
[2025-01-01 08:14] VITALS: BP 127/69; PULSE 91; RESP 18; TEMP 36.2; O2SAT 98
[2025-01-01 10:00] VITALS: PULSE 82; RESP 18; O2SAT 97
[2025-01-01 12:05] LABS: Bedside Glucose 189 mg/dL (74-106)
--- NOTE | 2025-01-01 12:15 | NURSING ---
Offered covid vaccine, VIS provided. Resident declines.
[2025-01-01] MEDS: Acetaminophen 500 MG Tablet 1000 MG PO (13:22)
[2025-01-01 13:24] VITALS: BMI 22.4
--- NOTE | 2025-01-01 15:58 | CASEMGMT ---
Social Work SW completed BIMS () - though pt read the calendar for all orientation questions, and PHQ-9 () for MDS assessment. SW explored depressive symptoms. Pt was very open about feelings and became emotional. Pt reflected on time in [place], and complexities with health issues, which caused pt to think once over the last two weeks of being better off . Pt denied any thoughts/intents/attempts/plans for self-harm. SW provided empathetic listening and assisted in pt reflection's on past life events. SW discussed how possibly pt's current health scares were triggers for repressed PTSD feelings. Pt agreed. Pt voiced the disbelief on how quick his decline happened. SW validated feelings and normalized reflection. Pt remains forward thinking and cited pt's supportive family members and will to continue to live. SW offered counseling at [facility]. Pt stated you think it will help. SW educated to 'never being too late' to start counseling and assist with processing feelings to allow growth and moving forward with future psychosocial well-being. Pt appreciative of insight and agreeable to counseling resources. SW offered to request from Dr. jona Key, to assist with mood, and it's side effects of sleep and appetite. Pt agreed. SW offered ongoing support and will continue to monitor. - Written communication left for Dr. Londono on medication request. Irene Noel OFFICE RN MILL HAND
[2025-01-01 17:05] LABS: Bedside Glucose 162 mg/dL (74-106)
[2025-01-01 18:07] VITALS: BP 141/74; PULSE 76
[2025-01-01 21:43] LABS: Bedside Glucose 172 mg/dL (74-106)
[2025-01-01] MEDS: Tamsulosin HCl 0.4 MG Capsule PO (22:22)
[2025-01-01] MEDS: Mirtazapine 15 MG Tablet 7.5 MG PO (22:28)
[2025-01-01] MEDS: Senna/Docusate Sodium 1 Tablet PO (22:28)
[2025-01-01] MEDS: Gabapentin 300 MG Capsule PO (22:37)
[2025-01-02] MEDS: Acetaminophen 500 MG Tablet 1000 MG PO (02:20)
[2025-01-02 06:34] LABS: Bedside Glucose 156 mg/dL (74-106)
[2025-01-02] MEDS: Isosorbide DN 10 MG Tablet PO ×3 (06:41→22:26)
[2025-01-02 07:51] VITALS: BP 137/64
[2025-01-02 08:05] VITALS: BP 106/65; PULSE 89; RESP 16; TEMP 36.3; O2SAT 97
[2025-01-02] MEDS: Carvedilol 6.25 MG Tablet PO ×2 (08:07→17:28)
[2025-01-02] MEDS: Menthol/Lanolin/Calamine/Znox 113 GM Tube 1 APPLIC TOPICAL ×2 (08:08→22:25)
[2025-01-02] MEDS: Nystatin Powder 15gm Bottle 1 APPLIC TOPICAL ×2 (08:09→22:27)
[2025-01-02 09:47] VITALS: BP 106/65; PULSE 89; RESP 16; TEMP 36.3; O2SAT 94; O2SAT 97; BMI 22.4
[2025-01-02 10:00] VITALS: PULSE 84; RESP 16; O2SAT 97
--- NOTE | 2025-01-02 10:51 | NURSING ---
Notified endo, and they reported they will be doing the procedure tomorrow. Pt changed from NPO to previous diet. Will eneter order for NPO status after midnight tonight. Pt updated.
--- NOTE | 2025-01-02 11:05 | NURSING ---
notified of EGD tomorrow but would like updated on time if possible, explained that we do not have a time yet but should by tomorrow morning.
[2025-01-02] MEDS: Insulin Lispro 100 UNIT/ML INSULN.PEN SC ×2 (12:11→17:34)
[2025-01-02] MEDS: Ferrous Sulfate 325 MG Tablet PO (12:11)
[2025-01-02] MEDS: NYSTATIN 500,000 UNIT/5 ML UDC 500000 UNIT PO ×3 (12:11→22:27)
[2025-01-02] MEDS: Finasteride 5 MG Tablet PO (12:11)
[2025-01-02 12:14] LABS: Bedside Glucose 164 mg/dL (74-106)
[2025-01-02] MEDS: Ensure Plus High Protein 120 ML LIQUID PO ×2 (12:15→17:27)
--- NOTE | 2025-01-02 14:47 | WOUNDNOTE ---
in to reassess the stoma and appliance. Pt sitting up in change. at side. ostomy appliance has been in place with no leaks noted. in to do more teaching with pt and . removed the ostomy appliance. there was a small amount of brown unformed stool in the appliance. stoma remains pink and moist. sits just at skin level. cleansed the skin with warm water. pat dry. placed barrier ring around the stoma and applied a 1 piece convex [place] appliance. appliance is pre-cut at 1. since stoma sits at skin level, patient will most likely need a convex appliance. will try with patient as he is in TCU to see which appliance patient prefers. pt tolerated well and denies questions at this time. will monitor. will plan to change appliance twice weekly.
--- NOTE | 2025-01-02 15:44 | CHAPLAIN ---
Type of Pastoral Visit _x__ Initial Visit ___ Follow-up Visit ___ On-call Visit ___ General Patient Visit ___ Spiritual Assessment ___ Family Conference ___ Bereavement ___ Rapid Response ___ Code Blue ___ Other (describe below) Pastoral Care Referral From _x__ Patient ___ Family ___ Nurse ___ Physician ___ Pulmonary Disease Specialist ___ Corrective Therapy Aide ___ Other (describe below) Sacrament/Intervention _x__ Active listening ___ Anointing ___ Confucianism ___ Bereavement ___ Communion _x__ Cris exploration ___ ___ Life review _x__ Prayer ___ Reconciliation ___ Sacrament of Sick ___ Supportive presence ___ Wedding ___ Other (describe below) Pastoral Comments patient and spouse are in the room; both explain what hospitalizations and surgeries the patient has endured in the last couple of weeks; pt has gone from being fully active to very weak and needed assistance; pt speaks several times of how good God has been to me; pt does admit that he was scared about what was happening to him; pt is not currently connected to a buddhist but has deep cris in God; pt welcomes presence and prayer
[2025-01-02 16:51] LABS: Bedside Glucose 164 mg/dL (74-106)
--- NOTE | 2025-01-02 17:17 | NURSING ---
family not wanting pt to have EGD at this time if not necessary d/t heart & kidney issues. Dr Londono updated, BMP ordered tonight & Dr Londono noted HGB going up some. EGD cancelled, Dr Matute notified via text.
[2025-01-02 20:00] LABS: Anion Gap 12 (5-15); BUN 53 mg/dL (4-19); BUN/Creat Ratio 24.1 RATIO (10-20); Calcium,Total 9.7 mg/dL (7.6-11.0); Carbon Dioxide 16.1 mmol/L (21.0-32.0); Chloride 105 mmol/L (98-108); Creatinine, Serum 2.18 mg/dL (0.70-1.20); EST Glomerular Filtration Rate 30 (>60); Estimated Creatinine Clearance 24.94 ml/min (50-250); Glucose 196 mg/dL (70-99); Potassium 6.6 mmol/L (3.3-5.1); Sodium Level 133 mmol/L (133-145)
--- NOTE | 2025-01-02 20:11 | NURSING ---
Lab called with critical Potassium level 6.6, Dr. Londono paged and updated on critical lab via phone call, new order for Kayexalate 30gm x1 dose, repeat BMP in AM, orders verified by read back and approved.
[2025-01-02] MEDS: Sodium Polystyrene Sulfonate 15 GM/60 ML UDC 30 GM PO (20:38)
--- NOTE | 2025-01-02 20:41 | NURSING ---
kayexalate given, patient tolerated well.
[2025-01-02 21:30] LABS: Bedside Glucose 178 mg/dL (74-106)
[2025-01-02 22:24] VITALS: BP 128/75; PULSE 91
[2025-01-02] MEDS: Tamsulosin HCl 0.4 MG Capsule PO (22:26)
[2025-01-02] MEDS: Mirtazapine 15 MG Tablet 7.5 MG PO (22:28)
[2025-01-02] MEDS: Gabapentin 300 MG Capsule PO (22:38)
[2025-01-03 05:46] VITALS: BP 137/82; PULSE 87
[2025-01-03] MEDS: Isosorbide DN 10 MG Tablet PO (05:48)
[2025-01-03] MEDS: Ensure Plus High Protein 120 ML LIQUID PO (05:48)
[2025-01-03 05:58] LABS: Absolute Lymphocyte Count 1.81 X10^3/uL (0.83-4.51); Absolute Neutrophil Count 4.6 X10^3/uL (2.0-7.7); Basophil# 0.11 X10^3/uL; Basophil% 1.5 % (0-1); Eosinophil# 0.34 X10^3/uL; Eosinophils% 4.5 % (0-5); Hematocrit 30.5 % (40-54); Lymphocyte # 1.81 X10^3/ul (0.83-4.51); Lymphocyte % 23.9 % (19-41); Mean Corp Hgb Conc 32.8 g/dL (32-36); Mean Corpuscular Hgb 29.6 pg (27.0-32.0); Mean Corpuscular Volume 90.2 fL (80-94); Mean Platelet Vol. 10.4 fl (6.2-12.0); Monocyte# 0.69 X10^3/uL; Monocyte% 9.1 % (0-10); NRBC Flagged by Analyzer 0 % (0-5); Neutrophil # 4.57 X10^3/uL (2.7-7.7); Neutrophil % 60.3 % (47-70); Platelet Count 509 K/mm3 (150-450); RBC Distribution Width CV 14.5 % (11.6-14.6); RBC Distribution Width SD 47.4 fl (35.1-43.9); Red Blood Count 3.38 M/mm3 (4.6-6.2); White Blood Count 7.6 K/mm3 (4.4-11.0)
[2025-01-03 06:26] LABS: Bedside Glucose 195 mg/dL (74-106)
[2025-01-03 06:44] LABS: Anion Gap 12 (5-15); BUN 55 mg/dL (4-19); BUN/Creat Ratio 23.6 RATIO (10-20); Carbon Dioxide 14.7 mmol/L (21.0-32.0); Chloride 106 mmol/L (98-108); Creatinine, Serum 2.31 mg/dL (0.70-1.20); EST Glomerular Filtration Rate 28 (>60); Estimated Creatinine Clearance 23.54 ml/min (50-250); Glucose 198 mg/dL (70-99); Sodium Level 133 mmol/L (133-145)
[2025-01-03 07:35] LABS: Potassium 7.4 mmol/L (3.3-5.1)
--- NOTE | 2025-01-03 07:57 | EKG12_ITS ---
Test Reason : sob Blood Pressure : */* mmHG Vent. Rate : 102 BPM Atrial Rate : 102 BPM P-R Int : 162 ms QRS Dur : 142 ms QT Int : 380 ms P-R-T Axes : 61 -28 118 degrees QTcB Int : 495 ms Sinus tachycardia Left bundle branch block Abnormal ECG When compared with ECG of 02-Dec-2024 02:14, Fusion complexes are no longer Present Confirmed by DILIA SABA, MEHDI ([id number]), graphic editor MEREDITH ABDULLAHI ([id number]) on 01/09/2025 8:24:51 AM Referred By: Bry Confirmed By: MEHDI DOBBS MD
[2025-01-03 08:13] LABS: Bedside Glucose 223 mg/dL (74-106)
--- NOTE | 2025-01-03 08:33 | NURSING ---
Addendum entered by Rizwana Singer 01/03/25 13:00: Pt's came up to floor ~ 1200, asking about plan of care. Called ER, they are currently waiting on labwork. Pts went down to ER to visit with pt. Addendum entered by Rizwana Singer 01/03/25 08:40: Called report to ER nurse, staff assists pt down to ER @ 0840. Original Note: Elevated potassium levels, EKG completed and results sent to Dr. Londono. Order to send resident to ER. updated.
--- NOTE | 2025-01-03 08:38 | NURSING ---
State Auditor Note; MDS for 01/02/2025 Complete
--- NOTE | 2025-01-03 13:29 | PCM.DC.SUM ---
Providers Date of Admission: 12/26/24 Primary Care Physician: DEANNA Franklin Consultations 12/26/24 20:17 Consult: Onc/Wound/transportation program director Routine Comment: Reason for Consult:: ostomy 12/28/24 17:38 Consult: Gastroenterology Routine Consulting Provider: [facility] Reason for Consult: Anemia, +hemoccult. EMERGENT Consult: No MD Notified: Yes Date Notified: 12/29/24 Time Notified: 18:28 Method of Notification: Text Reason For Visit: ABDOMINAL PAIN, PNEUMOPERITONEUM PARTIAL Diagnosis Discharge Diagnosis (1) Debility: Status: Acute Code(s): R53.81 - Other malaise (2) Perforation of sigmoid colon due to diverticulitis: Status: Acute Code(s): K57.20 - Diverticulitis of large intestine with perforation and abscess without bleeding (3) Sepsis: Status: Acute Code(s): A41.9 - Sepsis, unspecified organism (4) Acute respiratory failure with hypoxia: Status: Acute Code(s): J96.01 - Acute respiratory failure with hypoxia (5) NSTEMI (non-ST elevated myocardial infarction): Status: Acute Code(s): I21.4 - Non-ST elevation (NSTEMI) myocardial infarction (6) Acute HFrEF (heart failure with reduced ejection fraction): Status: Acute Code(s): I50.21 - Acute systolic (congestive) heart failure (7) Severe aortic stenosis: Status: Acute Code(s): I35.0 - Nonrheumatic aortic (valve) stenosis (8) Acute renal failure on dialysis: Status: Acute Code(s): N17.9 - Acute kidney failure, unspecified; Z99.2 - Dependence on renal dialysis (9) Dysphagia: Status: Acute Code(s): R13.10 - Dysphagia, unspecified (10) Urinary retention: Status: Acute Code(s): R33.9 - Retention of urine, unspecified (11) Diabetes: Status: Acute Code(s): E11.9 - Type 2 diabetes mellitus without complications (12) Essential (primary) hypertension: Status: Acute Code(s): I10 - Essential (primary) hypertension (13) BPH (benign prostatic hyperplasia): Status: Acute Code(s): N40.0 - Benign prostatic hyperplasia without lower urinary tract symptoms (14) Iron deficiency anemia: Status: Acute Code(s): D50.9 - Iron deficiency anemia, unspecified (15) Diabetic polyneuropathy: Status: Acute Code(s): E11.42 - Type 2 diabetes mellitus with diabetic polyneuropathy (16) Muscle spasm: Status: Acute Code(s): M62.838 - Other muscle spasm Plan 79 year old male with below past medical history hospitalized for sepsis, perforated sigmoid diverticulitis, underwent right hemicolectomy, partial colectomy (transverse colon), ileostomy, complicated by acute respiratory failure requiring intubation, acute HFrEF, acute kidney failure requiring dialysis, nstemi, severe aortic stenosis, dysphagia, urinary retention, admitted to TCU with debility, here for rehabilitation, strengthening, prior to discharge home with . Debility - PT/OT. Pain - Tylenol 1000mg q6 prn pain (1-10). Bowel - senna/colace 1 tablet bid. Adult immunization - Administer pneumonia vaccine, covid vaccine, flu vaccine as appropriate. DVT prophylaxis - Lovenox 30mg sc daily. NSTEMI - Coreg 6.25mg bidcm, Isosorbide 10mg tid, Aspirin 81mg daily. Chronic HFrEF (EF 36%) - Coreg 6.25mg bidcm, Isosorbide 10mg tid. Aortic stenosis (severe) - TAVR once recovered. Thrush - Nystatin 500,000 units 4x/day thru 01/02/2025. BPH/urinary retention - Finasteride 5mg daily, Tamsulosin 0.4mg qhs, indwelling peña catheter, voiding trial in 1 week. Diabetic polyneuropathy - Gabapentin 300mg qhs. Diabetes Mellitus II - Glargine 14 units qam, Lispro 4 units tidac. Medications at Discharge Home Medications aspirin 81 mg tablet,delayed release 81 mg PO DAILY@0800 heart health 04/16/17 glimepiride 2 mg tablet 2 mg PO BREAKFAST dm 04/16/17 hydrochlorothiazide 25 mg tablet 25 mg PO DAILY bp 04/16/17 metformin 1,000 mg tablet 1,000 mg PO BID dm 04/16/17 tamsulosin 0.4 mg capsule 0.4 mg PO QHS bph 04/16/17 cholecalciferol (vitamin D3) 25 mcg (1,000 unit) capsule 25 mcg PO DAILY SUPPLEMENT 04/05/23 zinc acetate 25 mg (zinc) capsule 50 mg PO DAILY SUPPLEMENT 04/05/23 ascorbic acid (vitamin C) 500 mg capsule 500 mg PO DAILY SUPPLEMENT 09/15/24 ferrous sulfate 325 mg (65 mg iron) tablet (Feosol) 325 mg PO QDAY SUPPLEMENT 09/15/24 gabapentin 300 mg capsule 300 mg PO QHS PAIN 10/31/24 amlodipine 10 mg tablet 10 mg PO DAILY htn 11/27/24 acetaminophen 500 mg tablet 500 mg PO Q6H #30 tabs 11/29/24 methocarbamol 500 mg tablet 750 mg (1.5 x 500 mg) PO TID PRN pain/spasms #60 tabs 11/29/24 oxycodone 5 mg tablet 2.5 - 5 mg (0.5 - 1 x 5 mg) PO Q6H PRN pain 7 days #28 tabs 11/29/24 sennosides 8.6 mg-docusate sodium 50 mg tablet (Stimulant Laxative Plus) 2 tab PO BID PRN constipation #30 tabs 11/29/24 Hospital Course Operations - (See below.) Procedures None Summary of Care Provided Minutes Spent on Discharge: 35 Hospital Course: 79 year old male with below past medical history hospitalized for sepsis, perforated sigmoid diverticulitis, underwent right hemicolectomy, partial colectomy (transverse colon), ileostomy, complicated by acute respiratory failure requiring intubation, acute HFrEF, acute kidney failure requiring dialysis, nstemi, severe aortic stenosis, dysphagia, urinary retention, admitted to TCU with debility, here for rehabilitation, strengthening, prior to discharge home with . 01/02/2025 K 6.6, Kayexalate 30gm po x 1 dose given. 01/03/2025 K 7.4, repeat K 7.4, EKG showed peaked T waves. aZnder, pharmaceutical laboratory technician reviewed 15 potassiums and states the potassium results are accurate. Discharge to [facility] ED 01/03/2025 for evaluation, possible admission to [facility]. Medical Records Data Medical Nutrition Assessment Dietitian: Malnutrition Criteria Met Start: 12/27/24 11:38 Freq: Status: Active Protocol: Document 12/27/24 11:39 SLA (Rec: 12/27/24 11:40 SLA ..25.7) Nutrition Malnutrition Evidence of Yes Malnutrition Exists Malnutrition (severe Acute Illness/Injury ): Evidenced By Suboptimal Energy Intake (Severe),Weight Loss (Severe), Physical Changes (Mild) Clinical Problem Biting/Chewing Difficulty Etiology swallowing related to issues w/ dysphagia Signs/Symptoms as evidenced by need for modified consistency diet Status Active Problem Acute Disease or Injury Related Malnutrition Etiology related to recent hospitalizations and suboptimal energy intake Signs/Symptoms as evidenced po intake meeting <75% of est nutritional needs and ~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 Status Active Problem Recommendation Dietitian Will liberalize diet to Regular - consistency per AIRCRAFT AIR CONDITIONING MECHANIC - Recommendations/ d/t signs/symptoms of malnutrition Changes Will provide chocolate magic cup and chocolate pudding w/ meals per res request Rec consider appetite stimulant to help encourage res po intake Weight / BMI Weight Weight: 63.14 kg Body Mass Index (BMI) 22.4 ABG / Lab / Microbiology Data 01/03/25 05:24 01/03/25 05:24 Laboratory: Laboratory Results - last 24 hr 01/02/25 16:26: POC Glucose 164 H 01/02/25 17:14: Sodium 133, Potassium 6.6 H*, Chloride 105, Carbon Dioxide 16.1 L, Anion Gap 12, BUN 53 H, Creatinine 2.18 H, Estim Creat Clear Calc 24.94 L, Est GFR (MDRD) Non-Af 30 L, BUN/Creatinine Ratio 24.1 H, Glucose 196 H, Calcium 9.7 01/02/25 21:04: POC Glucose 178 H 01/03/25 05:24: WBC 7.6, RBC 3.38 L, Hgb 10.0 L, Hct 30.5 L, MCV 90.2, MCH 29.6, MCHC 32.8, RDW Std Deviation 47.4 H, RDW Coeff of Disha 14.5, Plt Count 509 H, MPV 10.4, Immature Gran % (Auto) 0.700, Neut % (Auto) 60.3, Lymph % (Auto) 23.9, Whitley % (Auto) 9.1, Eos % (Auto) 4.5, Baso % (Auto) 1.5 H, Absolute Neuts (auto) 4.6, Absolute Lymphs (auto) 1.81, Nucleated RBC % 0, Sodium 133, Potassium 7.4 H*, Chloride 106, Carbon Dioxide 14.7 L, Anion Gap 12, BUN 55 H, Creatinine 2.31 H, Estim Creat Clear Calc 23.54 L, Est GFR (MDRD) Non-Af 28 L, BUN/Creatinine Ratio 23.6 H, Glucose 198 H, Calcium 10.0 01/03/25 06:00: POC Glucose 195 H 01/03/25 07:54: POC Glucose 223 H Microbiology: Microbiology 12/28/24 08:50 Stool Stool Occult Blood (RYLEE) - Final Occult Blood Positive D/C Instructions Discharge Diet: No restrictions Discharge Activity: Return to Normal Activity, May Shower and Use Walker Weight Bearing Status: Weight bearing as tolerated Call your doctor if you observe: Fever of 101 or Higher, Inability to urinate, Inability to have a bowel movement, Shortness of breath, Dizziness, Fainting spells, Swelling in the ankles, Chest pain and Uncontrolled pain DC O2, CPAP, BIPAP Needs Home O2 Discharge instructions: No Additional Instructions: Discharge to [facility] ED 01/03/2025 for evaluation, possible admission to [facility]. Please Follow Up With: JANNA COONEY MD Meaningful Use Info Meaningful Use Meaningful Use Diagnoses (Choose all that apply): None applicable Ischemic Stroke Statin Dosing Therapy Reference: STATIN DOSE THERAPY REFERENCE: * Patients > 75 years receive moderate or high dose statin therapy. * Patients 75 years or YOUNGER should receive HIGH intensity statin dose unless contraindicated. You will be required to document reason for non-treatment if statin daily dose does not meet guidelines. HIGH DOSE STATIN THERAPY DAILY Atorvastatin > than or = to 40 mg Rosuvastatin > than or = to 20 mg Amlodipine + Atorvastatin > than or = to 2.5/40 mg Ezetimibe + Simvastatin 10/80 mg Simvastatin 80mg Discharge Plan Admission Admit Date/Time: 12/26/24 19:37 Primary Reason for Your Visit: Debility. Attending Provider: Arnulfo Londono Chi Primary Care Provider: Trinity Coronado Instructions Additional Instructions / Restrictions: Discharge to [facility] ED 01/03/2025 for evaluation, possible admission to [facility]. Discharge Orders/Prescriptions Prescriptions: No Action zinc acetate 25 mg (zinc) capsule 50 mg PO DAILY cholecalciferol (vitamin D3) 25 mcg (1,000 unit) capsule 25 mcg PO DAILY ascorbic acid (vitamin C) 500 mg capsule 500 mg PO DAILY ferrous sulfate [Feosol] 325 mg (65 mg iron) tablet 325 mg PO QDAY aspirin 81 MG tablet 81 mg PO DAILY@0800 glimepiride 2 MG tablet 2 mg PO BREAKFAST tamsulosin 0.4 MG capsule 0.4 mg PO QHS metformin 1,000 MG tablet 1,000 mg PO BID hydrochlorothiazide 25 MG tablet 25 mg PO DAILY gabapentin 300 mg capsule 300 mg PO QHS amlodipine 10 mg tablet 10 mg PO DAILY acetaminophen 500 mg Tablet 500 mg PO Q6H Qty: 30 0RF methocarbamol 500 mg Tablet 750 mg PO TID PRN (Reason: pain/spasms) Qty: 60 0RF oxycodone 5 mg Tablet 2.5 - 5 mg PO Q6H PRN (Reason: pain) 7 Days Qty: 28 0RF sennosides-docusate sodium [Stimulant Laxative Plus] 8.6-50 mg Tablet 2 tab PO BID PRN (Reason: constipation) Qty: 30 0RF Referrals / Follow Up: Trinity Coronado AIR CARGO SPECIALIST SUPERVISOR-C [Primary Care Provider] - Disposition Disposition (needs filled in before D/C Order can be placed): Acute Care Hospital [facility]
--- NOTE | 2025-01-08 13:07 | MDS.RN ---
Information for the MDS was obtained from review of the clinical record, interview of resident, staff, and direct observation of resident?s care.
== END 2025-01-03 08:45 | disposition short-term general hospital (02) | DRG 949 ==
PROVIDERS: Internal Medicine; Admitting Provider Family Medicine Geriatric Medicine; PCP Nurse Practitioner Family; Visit Provider Family Medicine Geriatric Medicine
DX: Z48.815 Encounter for surgical aftercare following surgery on the digestive system (principal); I21.A1 Myocardial infarction type 2; I50.23 Acute on chronic systolic (congestive) heart failure; E44.0 Moderate protein-calorie malnutrition; K57.20 Diverticulitis of large intestine with perforation and abscess without bleeding; B37.0 Candidal stomatitis; N17.9 Acute kidney failure, unspecified; N18.4 Chronic kidney disease, stage 4 (severe); I13.0 Hypertensive heart and chronic kidney disease with heart failure and stage 1 through stage 4 chronic kidney disease, or unspecified chronic kidney disease; K57.32 Diverticulitis of large intestine without perforation or abscess without bleeding; E11.22 Type 2 diabetes mellitus with diabetic chronic kidney disease; D50.9 Iron deficiency anemia, unspecified; I35.0 Nonrheumatic aortic (valve) stenosis; Z93.2 Ileostomy status; E11.42 Type 2 diabetes mellitus with diabetic polyneuropathy; M62.838 Other muscle spasm; E87.5 Hyperkalemia; R13.10 Dysphagia, unspecified; N40.1 Benign prostatic hyperplasia with lower urinary tract symptoms; R33.8 Other retention of urine; Z87.891 Personal history of nicotine dependence; Z98.1 Arthrodesis status; Z79.899 Other long term (current) drug therapy; Z79.84 Long term (current) use of oral hypoglycemic drugs; Z79.82 Long term (current) use of aspirin; Z90.49 Acquired absence of other specified parts of digestive tract; G47.00 Insomnia, unspecified; Z68.22 Body mass index [BMI] 22.0-22.9, adult
CPT/HCPCS: 36415; 71046; 80048; 82274; 82962; 83540; 83550; 85025; 85027; 92507; 92526; 92610; 93005; 97110; 97116; 97162; 97166; 97530; 97535; 97802; A4216; J2916

== ENCOUNTER 2025-01-03 08:45 | Inpatient (IN) | payer MEDICARE, OTHER, SELFPAY ==
[2025-01-03] VITALS (11 sets, daily range): BP systolic 102–138; BP diastolic 70–79; PULSE 90–120; RESP 16–19; TEMP 36.4–36.9; O2SAT 95–100; BMI 23.3; BMI 22.4
--- NOTE | 2025-01-03 09:14 | EKG12_ITS ---
Test Reason : high K Blood Pressure : */* mmHG Vent. Rate : 98 BPM Atrial Rate : 98 BPM P-R Int : 162 ms QRS Dur : 150 ms QT Int : 376 ms P-R-T Axes : 58 -43 107 degrees QTcB Int : 480 ms Normal sinus rhythm Left axis deviation Left bundle branch block Abnormal ECG Confirmed by Paco Ruggiero ([id number]), editor book MEREDITH ABDULLAHI ([id number]) on 01/04/2025 6:53:53 AM Referred By: Confirmed By: Paco Ruggiero
--- NOTE | 2025-01-03 09:22 | EX.ED.DYSGE1 ---
HPI History of Present Illness Chief Complaint: Abn Labs Detail of Chief Complaint: Elevated potassium. Informant: patient Onset/Context/Timing Onset: Today Narrative Narrative: 79-year-old male recent history of mesenteric ischemia with abdominal surgery bowel resection and colostomy. He was sent from this hospital to [facility]. Now he is recovering in the transitional care unit. Today had elevated potassium he was treated with Kayexalate they repeated the potassium level is actually higher at 7.4 sitting down the emergency department. He has known chronic kidney disease, diabetes and hypertension. Prior similar symptoms: No Recent Illness/Hospitalization: [facility] Medical History CKD (chronic kidney disease), stage IV Wears glasses Wears dentures BPH (benign prostatic hyperplasia) Arthritis Prostate disease Low iron History of diverticulitis Heartburn Former smoker Leg cramps History of echocardiogram Hypertrophic scar Carotid stenosis, left Sebaceous cyst Amaurosis fugax of right eye Sciatica Hyperlipidemia Osteoarthritis Hemorrhoid GERD (gastroesophageal reflux disease) HTN (hypertension) Diabetes Carotid stenosis Home Medications ?Medication ?Instructions ?Recorded ?Last Taken ?Type aspirin 81 mg tablet,delayed 81 mg PO DAILY@0800 [facility] 04/16/17 11/26/24 09:00 History release glimepiride 2 mg tablet 2 mg PO BREAKFAST dm 04/16/17 11/26/24 09:00 History hydrochlorothiazide 25 mg tablet 25 mg PO DAILY bp 04/16/17 11/26/24 09:00 History metformin 1,000 mg tablet 1,000 mg PO BID dm 04/16/17 11/26/24 19:30 History tamsulosin 0.4 mg capsule 0.4 mg PO QHS bph 04/16/17 11/26/24 22:30 History cholecalciferol (vitamin D3) 25 25 mcg PO DAILY SUPPLEMENT 04/05/23 11/26/24 09:00 History mcg (1,000 unit) capsule zinc acetate 25 mg (zinc) capsule 50 mg PO DAILY SUPPLEMENT 04/05/23 11/26/24 09:00 History ascorbic acid (vitamin C) 500 mg 500 mg PO DAILY SUPPLEMENT 09/15/24 11/26/24 09:00 History capsule ferrous sulfate 325 mg (65 mg 325 mg PO QDAY SUPPLEMENT 09/15/24 11/26/24 09:00 History iron) tablet (Feosol) gabapentin 300 mg capsule 300 mg PO QHS PAIN 10/31/24 11/25/24 22:30 History amlodipine 10 mg tablet 10 mg PO DAILY htn 11/27/24 11/26/24 09:00 History acetaminophen 500 mg tablet 500 mg PO Q6H #30 tabs 11/29/24 Unknown Rx methocarbamol 500 mg tablet 750 mg (1.5 x 500 mg) PO TID PRN 11/29/24 Unknown Rx pain/spasms #60 tabs oxycodone 5 mg tablet 2.5 - 5 mg (0.5 - 1 x 5 mg) PO Q6H 11/29/24 Unknown Rx PRN pain 7 days #28 tabs sennosides 8.6 mg-docusate sodium 2 tab PO BID PRN constipation #30 11/29/24 Unknown Rx 50 mg tablet (Stimulant Laxative tabs Plus) Allergy/AdvReac Type Severity Reaction Status Date / Time atorvastatin (From Lipitor) Allergy INTOLERANCE Verified 12/26/24 20:42 ezetimibe (From Zetia) Allergy MYALGIA Verified 12/26/24 20:42 pravastatin Allergy MYALGIAS Verified 12/26/24 20:42 simvastatin (From Zocor) Allergy INTOLERANCE Verified 12/26/24 20:42 sitagliptin (From Januvia) Allergy INTOLERANCE Verified 12/26/24 20:42 tetanus and diphtheria Allergy Rash Verified 12/01/24 22:00 toxoids Gwjwbyr-FKM-TcL Reductase AdvReac Other Verified 12/01/24 22:00 Inhibitor (Wgoilpu-Mxt-Wvu Reductase Inhibitor) Family History Father Diabetes Heart disease Myocardial infarction Mother CAD (coronary artery disease) Arthritis Surgical History History of ileostomy History of right hemicolectomy History of partial colectomy History of right-sided carotid endarterectomy History of right-sided carotid endarterectomy (~11/2017) History of umbilical hernia S/P ventral herniorrhaphy S/P inguinal hernia repair S/P colonoscopy Social History household members: spouse Smoking Status: Former smoker alcohol intake: never substance use type: does not use ROS ROS ED ROS Narrative Mild nausea but no vomiting. Constitutional Constitutional ED: Denies chills or fever(s) Eyes Eyes: Denies blurry vision ENT ENT ED: Denies ear pain Cardiovascular Cardiovascular: Denies chest pain Respiratory/Chest Respiratory/Chest: Denies cough or dyspnea Gastrointestinal Gastrointestinal: Reports nausea; Denies abdominal pain or vomiting Genitourinary Genitourinary ED: Denies dysuria or hematuria Musculoskeletal Musculoskeletal: Denies arthralgias Integumentary Denies abscess Neurologic Neurologic: Denies headache(s) Psychiatric Psychiatric: Denies anxiety Endocrine Endocrinology: Denies cold intolerance Hematologic/Lymphatic Hematologic/Lymphatic: Reports none Allergic/Immunologic Allergic/Immunologic ED: Denies mouth swelling, tongue swelling or urticaria EXAM Physical Exam Narrative Exam Narrative: 79-year-old male sitting upright in bed. Vital signs stable afebrile. H EENT exam pupils round reactive light. Moist mucous membranes. Neck nontender. Lungs clear to auscultation. Heart regular rhythm rate about 100. Abdomen soft nondistended normal bowel sounds peritoneal signs. He is a colostomy bag with brown liquid stool in it. Moving all 4 extremities. Nontender no edema. Normal strength. Back nontender. Neurologically is awake alert. Answering questions and following commands. Const Vital Signs: 01/03/25 08:46 01/03/25 08:46 01/03/25 09:38 Temperature 97.9 F Temperature Source Oral Pulse Rate 99 90 Respiratory Rate 18 18 Respiratory Effort Normal Non-Labored Respiratory Pattern Normal Normal Blood Pressure 135/79 H Blood Pressure Mean 97 Pulse Ox 100 Oxygen Delivery Method Room Air 01/03/25 09:46 01/03/25 11:51 Temperature Temperature Source Pulse Rate 117 H 99 Respiratory Rate 19 H 16 Respiratory Effort Respiratory Pattern Blood Pressure 102/70 131/74 H Blood Pressure Mean 80 93 Pulse Ox 100 99 Oxygen Delivery Method Room Air Room Air Positive well nourished and well developed; Negative for obese, cachectic, contractures or unkempt General Appearance ED: well developed and NAD; Negative for unkempt, cachectic, contractures, cyanotic, diaphoretic or pallor Nutritional Appearance: Negative for cachectic or obese HEENT Reports moist mucous membranes Eyes EOMs intact bilaterally Neck no lymphadenopathy, supple and no JVD Chest Wall inspection of chest normal and palpation of chest normal Resp normal respiratory effort and clear to auscultation bilaterally Cardio regular rate, regular rhythm, S1 normal heart sound and S2 normal heart sound GI normal to inspection, nondistended, normoactive bowel sounds, non-tender, non-distended and no masses Palpation: soft; Negative for tender, guarding or rebound tenderness present Back/Spine no CVA tenderness General Back: Negative for CVA tenderness Cervical Spine: Negative for cervical spine tenderness Thoracic Spine / Upper Back: Negative for thoracic spinal tenderness or paraspinal muscle tenderness Lumbar Spine / Lower Back: Negative for lumbar spinal tenderness Extremity normal to inspection General Extremety ED: Negative for edema or tenderness General Extremity: Negative for edema Neuro oriented x3 and CN's II-XII intact bilaterally Sensorium / Orientation: alert Motor Exam: strength 5/5 throughout Psych mental status grossly normal Appearance: Negative for unkempt Skin no rashes or lesions noted and no wounds General Skin Exam: Negative for jaundice or pallor Lesions: No lesion noted Rashes: No rashes noted Trauma: Negative for abrasion Wounds: Negative for wounds noted MDM MDM MDM Narrative Medical decision making narrative: 79-year-old male history of chronic kidney disease with elevated potassium. Treated with Kayexalate in the TCU. BMP will be obtained. EKG. And we will give the patient aerosol, saline, insulin and bicarb. Repeat exam patient is doing well at 12:49 PM. I spoke to my hospitalist. We are going to transfer him back to [facility] Where he recently had a long lengthy complicated hospitalization including bowel resection due to mesenteric ischemia, intubation and dialysis. But they are unable to accept him at this time due to not having bed availability. He will be admitted here to the PCU. History & Record Review Discussion w/independent historian: Patient Additional record(s) reviewed:: Prior inpatient record, Prior outpatient record, Prior ED visit and Prior labs Lab Data Attestation: I reviewed the patient's lab results. Lab results narrative: Chemistry shows sodium 130. Potassium is 7.4. Gap 13. BUN of 58 creatinine 2.41 he has chronic kidney disease is consistent with his prior BUN and creatinines. Platelets 273. CBC shows a white count of 7. H&H of 10 and 30. Platelets 509. Consistent with a chronic anemia Labs: Laboratory Results - last 24 hr 01/03/25 01/03/25 09:13 11:53 Sodium 130 L Potassium 7.4 H* Chloride 106 Carbon Dioxide 11.5 L Anion Gap 13 BUN 58 H Creatinine 2.41 H Estim Creat Clear Calc 22.80 L Est GFR (MDRD) Non-Af 27 L BUN/Creatinine Ratio 23.9 H Glucose 273 H Calcium 9.5 POC Glucose 230 H Rhythm Strip Rhythm Strip: Sinus Rhythm Rate: 98 Ectopy: None EKG Initial EKG: Attestation: I personally reviewed and interpreted this EKG as follows: Interpretation: Sinus Rhythm and LBBB Comments: Normal sinus rhythm rate of 98. He does have a left bundle branch block. Currently I am unsure if that is new or old. No acute signs of NE or ischemia. Discharge Plan Triage Chief Complaint: Abn Labs ED Provider: Wayne Madsen Dx/Rx/DC Orders Clinical Impression: Acute hyperkalemia, Chronic kidney disease, History of hypertension, History of diabetes mellitus, History of bowel resection Prescriptions: No Action zinc acetate 25 mg (zinc) capsule 50 mg PO DAILY cholecalciferol (vitamin D3) 25 mcg (1,000 unit) capsule 25 mcg PO DAILY ascorbic acid (vitamin C) 500 mg capsule 500 mg PO DAILY ferrous sulfate [Feosol] 325 mg (65 mg iron) tablet 325 mg PO QDAY aspirin 81 MG tablet 81 mg PO DAILY@0800 glimepiride 2 MG tablet 2 mg PO BREAKFAST tamsulosin 0.4 MG capsule 0.4 mg PO QHS metformin 1,000 MG tablet 1,000 mg PO BID hydrochlorothiazide 25 MG tablet 25 mg PO DAILY gabapentin 300 mg capsule 300 mg PO QHS amlodipine 10 mg tablet 10 mg PO DAILY acetaminophen 500 mg Tablet 500 mg PO Q6H Qty: 30 0RF methocarbamol 500 mg Tablet 750 mg PO TID PRN (Reason: pain/spasms) Qty: 60 0RF oxycodone 5 mg Tablet 2.5 - 5 mg PO Q6H PRN (Reason: pain) 7 Days Qty: 28 0RF sennosides-docusate sodium [Stimulant Laxative Plus] 8.6-50 mg Tablet 2 tab PO BID PRN (Reason: constipation) Qty: 30 0RF Primary Care Provider: Trinity Coronado Referrals: Trinity Coronado, CHEMICAL WASTE MANAGEMENT TECHNICIAN-C [Primary Care Provider] - Print Language: Polish Disposition Disposition: Acute Care [facility]
[2025-01-03] MEDS: Albuterol *CONC* 2.5mg/0.5mL VIAL.NEB. 10 MG INHALATION (09:37)
[2025-01-03] MEDS: Dextrose 10%-Water 250 ML 999 ML IV ×2 (09:42→15:23)
[2025-01-03] MEDS: Insulin Lispro 10 UNIT in Syringe 0 ML 6 UNIT IV ×2 (09:42→15:47)
[2025-01-03] MEDS: 0.9% Normal Saline (1000mL) 1,000 ML 999 ML IV (09:42)
[2025-01-03] MEDS: Sodium Bicarbonate 8.4% 50 ML Syringe 50 MEQ IV (09:42)
[2025-01-03] MEDS: Calcium Gluconate IV 3 GM in Syringe 1 EACH IV (09:42)
[2025-01-03 10:15] LABS: Anion Gap 13 (5-15); BUN 58 mg/dL (4-19); BUN/Creat Ratio 23.9 RATIO (10-20); Calcium,Total 9.5 mg/dL (7.6-11.0); Carbon Dioxide 11.5 mmol/L (21.0-32.0); Chloride 106 mmol/L (98-108); Creatinine, Serum 2.41 mg/dL (0.70-1.20); EST Glomerular Filtration Rate 27 (>60); Glucose 273 mg/dL (70-99); Sodium Level 130 mmol/L (133-145)
[2025-01-03 10:31] LABS: Potassium 7.4 mmol/L (3.3-5.1)
[2025-01-03 12:12] LABS: Bedside Glucose 230 mg/dL (74-106)
--- NOTE | 2025-01-03 12:43 | PCM.HP.STD ---
[facility] Date of Admission: 01/03/25 Date of Service: 01/03/25 Chief Complaint: Acute hyperkalemia [facility] Narrative SYD BARNETT, is a 79 M who presented to [facility] ED on 01/03/2025 with acute hyperkalemia. Patient had recent prolonged hospitalization at [facility] from 12/03 to 12/26 and was then discharged to our TCU. That hospitalization was complicated by perforated bowel s/p right hemicolectomy and partial colectomy of proximal transverse colon with wound VAC placement, HFrEF with EF 30%, severe arctic stenosis, severe HAMMAD with uremia s/p 3 sessions of temporary dialysis with catheter subsequently removed, urinary retention with Killian still in place, and oropharyngeal dysphagia on modified diet. See Dr. Londono's note from 12/26 for further details. Patient had been doing fairly well at rehab recently. However, he was found to have a potassium of 6.6 yesterday. He was given a dose of Kayexalate but it was thought this could be an erroneous result. However, repeat potassium was 7.4 this morning and EKG showed changes consistent with hyperkalemia. He was then brought to the ED for further evaluation. In the ED he was asymptomatic. He was given insulin, albuterol, Kayexalate, bicarbonate, calcium gluconate and IV fluids at that time. Hospitalist was then contacted for admission. I saw the patient at bedside in the ED, 2 other family members present. Patient was mildly fatigued appearing but otherwise sitting back comfortably in bed and in no acute distress. On chart review he was previously on losartan but this was stopped during his recent hospitalization. He and family do note that he had an issue with hyperkalemia in the past that improved quickly with medical treatment. He has not been eating and drinking very well per his report, but his son does note that he has been drinking 3-4 ensures per day and these have a fairly high potassium content. Patient otherwise denies any acute concerns at this time. [facility] Medical History (Updated 01/03/25 @ 14:17 by Sharon Burkett) Kidney disease Irregular heart beat CKD (chronic kidney disease), stage IV Wears glasses Wears dentures BPH (benign prostatic hyperplasia) Arthritis Prostate disease Low iron History of diverticulitis Heartburn Former smoker Leg cramps History of echocardiogram Hypertrophic scar Carotid stenosis, left Sebaceous cyst Amaurosis fugax of right eye Sciatica Hyperlipidemia Osteoarthritis Hemorrhoid GERD (gastroesophageal reflux disease) HTN (hypertension) Diabetes Carotid stenosis Home Medications ?Medication ?Instructions ?Recorded ?Last Taken ?Type aspirin 81 mg tablet,delayed 81 mg PO DAILY@0800 [facility] 04/16/17 11/26/24 09:00 History release glimepiride 2 mg tablet 2 mg PO BREAKFAST dm 04/16/17 11/26/24 09:00 History hydrochlorothiazide 25 mg tablet 25 mg PO DAILY bp 04/16/17 11/26/24 09:00 History metformin 1,000 mg tablet 1,000 mg PO BID dm 04/16/17 11/26/24 19:30 History tamsulosin 0.4 mg capsule 0.4 mg PO QHS bph 04/16/17 11/26/24 22:30 History cholecalciferol (vitamin D3) 25 25 mcg PO DAILY SUPPLEMENT 04/05/23 11/26/24 09:00 History mcg (1,000 unit) capsule zinc acetate 25 mg (zinc) capsule 50 mg PO DAILY SUPPLEMENT 04/05/23 11/26/24 09:00 History ascorbic acid (vitamin C) 500 mg 500 mg PO DAILY SUPPLEMENT 09/15/24 11/26/24 09:00 History capsule ferrous sulfate 325 mg (65 mg 325 mg PO QDAY SUPPLEMENT 09/15/24 11/26/24 09:00 History iron) tablet (Feosol) gabapentin 300 mg capsule 300 mg PO QHS PAIN 10/31/24 11/25/24 22:30 History amlodipine 10 mg tablet 10 mg PO DAILY htn 11/27/24 11/26/24 09:00 History acetaminophen 500 mg tablet 500 mg PO Q6H #30 tabs 11/29/24 Unknown Rx methocarbamol 500 mg tablet 750 mg (1.5 x 500 mg) PO TID PRN 11/29/24 Unknown Rx pain/spasms #60 tabs oxycodone 5 mg tablet 2.5 - 5 mg (0.5 - 1 x 5 mg) PO Q6H 11/29/24 Unknown Rx PRN pain 7 days #28 tabs sennosides 8.6 mg-docusate sodium 2 tab PO BID PRN constipation #30 11/29/24 Unknown Rx 50 mg tablet (Stimulant Laxative tabs Plus) Allergy/AdvReac Type Severity Reaction Status Date / Time atorvastatin (From Lipitor) Allergy INTOLERANCE Verified 12/26/24 20:42 ezetimibe (From Zetia) Allergy MYALGIA Verified 12/26/24 20:42 pravastatin Allergy MYALGIAS Verified 12/26/24 20:42 simvastatin (From Zocor) Allergy INTOLERANCE Verified 12/26/24 20:42 sitagliptin (From Januvia) Allergy INTOLERANCE Verified 12/26/24 20:42 tetanus and diphtheria Allergy Rash Verified 12/01/24 22:00 toxoids Hfthukd-ZYN-HwE Reductase AdvReac Other Verified 12/01/24 22:00 Inhibitor (Vcwbspl-Cyy-Cqe Reductase Inhibitor) Family History Father Diabetes Heart disease Myocardial infarction Mother CAD (coronary artery disease) Arthritis Surgical History (Updated 01/03/25 @ 12:[address] Wayne Madsen MD) History of ileostomy History of right hemicolectomy History of partial colectomy History of right-sided carotid endarterectomy History of right-sided carotid endarterectomy (~11/2017) History of umbilical hernia S/P ventral herniorrhaphy S/P inguinal hernia repair S/P colonoscopy Social History household members: spouse Smoking Status: Former smoker alcohol intake: never substance use type: does not use ROS Constitutional Constitutional: Reports fatigue; Denies chills, fever(s) or weakness Eyes Eyes: Denies change in vision Cardiovascular Cardiovascular: Denies chest pain Respiratory/Chest Respiratory/Chest: Denies shortness of breath at rest Gastrointestinal Gastrointestinal: Denies abdominal pain Musculoskeletal Musculoskeletal: Denies arthralgias or myalgias Vital Signs Vital Signs Vital Signs: 01/03/25 08:46 01/03/25 08:46 01/03/25 09:38 Temperature 97.9 F Temperature Source Oral Pulse Rate 99 90 Respiratory Rate 18 18 Respiratory Effort Normal Non-Labored Respiratory Pattern Normal Normal Blood Pressure 135/79 H Blood Pressure Mean 97 Pulse Ox 100 Oxygen Delivery Method Room Air 01/03/25 09:46 01/03/25 11:51 Temperature Temperature Source Pulse Rate 117 H 99 Respiratory Rate 19 H 16 Respiratory Effort Respiratory Pattern Blood Pressure 102/70 131/74 H Blood Pressure Mean 80 93 Pulse Ox 100 99 Oxygen Delivery Method Room Air Room Air Weight Weight: 65.5 kg Body Mass Index (BMI) 23.3 Physical Exam Const alert, oriented x3, no apparent distress and average body habitus Constitutional Narrative: Elderly male, fatigued and chronically ill-appearing, otherwise sitting back comfortably in bed, answering questions appropriately, in no acute distress. General Appearance: cooperative and comfortable HEENT normocephalic, head/scalp atraumatic, hearing grossly normal bilaterally, nasal mucous membranes and turbinates normal and moist oral mucous membranes Eyes PERRL, EOMs intact bilaterally and conjunctivae normal Neck full ROM Chest inspection of chest normal Resp normal respiratory effort, normal air movement, no use of accessory muscles and clear to auscultation bilaterally Cardio no murmurs and peripheral pulses 2+ throughout Cardio Narrative: Tachycardic, regular rhythm. GI GI Narrative: Colostomy bag in place with normal-appearing stool output. Mild diffuse tenderness to palpation but abdomen otherwise soft and nondistended. Back/Spine normal ROM Extremity normal to inspection, full ROM and no pedal edema Skin no rashes or lesions noted Psych mental status grossly normal Results Lab / Micro Data 01/03/25 18:20 Labs: Laboratory Results - last 24 hr 01/03/25 09:13: Sodium 130 L, Potassium 7.4 H*, Chloride 106, Carbon Dioxide 11.5 L, Anion Gap 13, BUN 58 H, Creatinine 2.41 H, Estim Creat Clear Calc 22.80 L, Est GFR (MDRD) Non-Af 27 L, BUN/Creatinine Ratio 23.9 H, Glucose 273 H, Calcium 9.5 01/03/25 11:53: POC Glucose 230 H Assessment & Plan Assessment/Plan (1) Acute hyperkalemia: PLAN: Plan Patient is a 79-year-old male who presented to [facility] ED on 01/03/2025 with acute hyperkalemia. 1. Acute hyperkalemia, improving ? Admit under inpatient status to PCU. Potassium 7.4 on admit. EKG showed peaked T waves and apparent mild QRS widening. Treated medically in the ED with significant improvement to 6.2 on recheck. Treated again medically at that time with most recent potassium 5.9 this evening. Notably creatinine at baseline 2.2 and patient with adequate urine output. No clear etiology for hyperkalemia aside from high potassium intake from Ensure drinks while in TCU along with decreased renal clearance in setting of CKD. Will recheck potassium level again tomorrow morning. Continue to treat medically as needed. Repeat EKG this evening showed improvement in T waves and QRS widening. Continue renal diet. May be okay for discharge back to TCU tomorrow if he remains stable. 2. 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 Recently required 3 HD sessions at [facility] reportedly for significant uremia. Creatinine 2.2 on admission here with BUN 53. Potassium improved with medical treatment as noted above. Patient with adequate urine output at this point. No indications for dialysis and no need for nephrology consult at this time. Follow-up a.m. BMP and continue to monitor urine output. 3. Recent bowel perforation s/p hemicolectomy with ostomy placement ? See Dr. Londono's note from 12/26 for further details. Patient with mild diffuse abdominal pain on admit but abdomen otherwise soft and nondistended. CT abdomen pelvis without contrast showed expected postsurgical changes with no other acute concerns. Lactate normal. Has had normal ostomy output recently. No inpatient needs at this time. 4. Recently diagnosed HFrEF with severe aortic stenosis ? See Dr. Londono's note from 12/26 for further details. Echo at [facility] Showed EF 30% and severe aortic stenosis. Recommendation was for TAVR evaluation once medically improved. Has been stable on Coreg 6.25 mg twice daily and isosorbide dinitrate 10 mg 3 times daily. Will continue these medications at this time. 5. Type 2 diabetes mellitus with diabetic neuropathy ? Hold home glimepiride and metformin. Will treat with sliding scale insulin with meals while inpatient, adjust as needed. Continue home gabapentin. 6. 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 Killian catheter in place and will continue this with plan for voiding trial after discharge. Continue home finasteride and tamsulosin. DVT prophylaxis: Heparin subcu CODE STATUS: Full code, verified Expected disposition: Likely back to TCU, 2 to 3 days Total clinical time spent by myself addressing the patient's medical issues, reviewing all the data, and collaborating with patient's care team: 75 minutes. Charges/Coding Visit Charges Inpatient E&M: 54274 Init Hosp L3
--- NOTE | 2025-01-03 13:20 | RAD_ITS ---
PROCEDURE: CHEST 1 VIEW (PORTABLE) 01/03/2025 REASON FOR EXAM: RECENT NEW HFREF, MILD SOB TECHNIQUE: Frontal view of the chest. COMPARISON: AP chest of 12/27/2024. RAD/Chest 1 View (Portable) IMPRESSION: Old left rib fractures are again seen. No acute osseous process is evident. Lungs appear clear of acute disease. No pleural effusion or pneumothorax is noted. The cardiomediastinal silhouette appears within the normal range. No evidence of acute cardiopulmonary disease. Reading Location: [address]
--- NOTE | 2025-01-03 13:26 | CT_ITS ---
PROCEDURE: ABDOMEN/PELVIS WITHOUT CONT 01/03/2025 REASON FOR EXAM: RECENT BOWEL RESECTION W/ CONTINUED ABD PAIN Status post right hemicolectomy and ileostomy. TECHNIQUE: Abdomen and pelvis CT without intravenous contrast. Noncontrast technique limits evaluation of the abdominal and pelvic viscera. Coronal and Sagittal reconstruction series were provided. One or more dose reduction techniques were used (e.g., Automated exposure control, adjustment of the mA and/or kV according to patient size, use of iterative reconstruction technique). PATIENT PREPARATION: Per protocol ORAL CONTRAST TYPE: None. AMOUNT: mL COMPARISON: Prior study dated December 01, 2024. FINDINGS: Lung bases: Mild dependent atelectasis. Coronary artery calcification. Liver: Normal size. No obvious mass. Gallbladder: Unremarkable Spleen: Normal size. Pancreas: Normal size. No surrounding inflammation. Adrenals: Unremarkable Kidneys: Tiny nonobstructive calculus in the upper pole calyx of the right kidney. Bladder: A suprapubic catheter is seen within the urinary bladder. There is diffuse bladder wall thickening. Bowel: The patient is status post right hemicolectomy with ileostomy. Postsurgical changes are seen in the right lower quadrant at the surgical site with increased markings in the surrounding peritoneum. There is a 3.2 cm 2.7 cm 2.5 cm fluid collection with a small amount of air. This may represent focal abscess although without oral contrast, this limits the evaluation. Repeat examination with oral contrast recommended. Lymph nodes: No suspicious lymph node enlargement. Vasculature: Mild diffuse atherosclerotic calcifications are noted. Peritoneum / Retroperitoneum: Surgical clips are seen in both inguinal region suggestive of prior inguinal hernia repair. Bones: Degenerative changes of the spine. CT/Abdomen/Pelvis without Cont IMPRESSION: Status post right hemicolectomy with ileostomy as described. Postsurgical eduardo ges are seen at the operative site with possible small abscess. A repeat examination with oral contrast is recommended. A suprapubic catheter is seen within the urinary bladder. There is diffuse jr dder wall thickening. OVERALL FINAL ASSESSMENT: . LI-RADS is not meant to be used in patients <18 years or patients with cirrhosi s due to congenital hepatic fibrosis or due to vascular disorders, because these patients have a lower chance of developing HC C. Reading Location: [place] [id number]
[2025-01-03] MEDS: Furosemide 40 MG/4 ML Vial IV (13:31)
[2025-01-03 13:42] LABS: Lactic Acid 1.7 mmol/L (0.0-2.0)
--- NOTE | 2025-01-03 14:15 | CM.ED ---
Social Work Patient was brought to ED from TCU. SW spoke with patient and family who state they would like patient to return to TCU when medically ready. Jade Romero, TELECOMMUNICATIONS SUPPORT, TACK DRILLER
[2025-01-03 15:40] LABS: Bedside Glucose 175 mg/dL (74-106)
[2025-01-03] MEDS: 0.9% Saline Lock 10 ML Syringe IV (15:47)
[2025-01-03] MEDS: Insulin Lispro 100 UNIT/ML INSULN.PEN SC (16:55)
[2025-01-03 16:56] LABS: Anion Gap 15 (5-15); BUN 53 mg/dL (4-19); BUN/Creat Ratio 24.1 RATIO (10-20); Calcium,Total 10.5 mg/dL (7.6-11.0); Carbon Dioxide 14.6 mmol/L (21.0-32.0); Chloride 106 mmol/L (98-108); EST Glomerular Filtration Rate 30 (>60); Estimated Creatinine Clearance 24.61 ml/min (50-250); Glucose 190 mg/dL (70-99); Potassium 6.2 mmol/L (3.3-5.1); Sodium Level 135 mmol/L (133-145)
--- NOTE | 2025-01-03 17:00 | NURSING ---
Recieved call from the lab that pts K is 6.2. secure txt sent to Dr Lopez
--- NOTE | 2025-01-03 18:00 | EKG12_ITS ---
Test Reason : Blood Pressure : */* mmHG Vent. Rate : 87 BPM Atrial Rate : 87 BPM P-R Int : 158 ms QRS Dur : 136 ms QT Int : 382 ms P-R-T Axes : 57 -58 106 degrees QTcB Int : 459 ms Poor data quality, interpretation may be adversely affected Normal sinus rhythm Left axis deviation Left bundle branch block Abnormal ECG When compared with ECG of 03-Jan-2025 08:54, MANUAL COMPARISON REQUIRED DATA IS UNCONFIRMED Confirmed by Paco Ruggiero ([id number]), senior technical editor MEREDITH ABDULLAHI ([id number]) on 01/04/2025 1:17:51 PM Referred By: Confirmed By: Paco Ruggiero
[2025-01-03 18:59] LABS: Anion Gap 13 (5-15); BUN 52 mg/dL (4-19); BUN/Creat Ratio 23.9 RATIO (10-20); Calcium,Total 10.6 mg/dL (7.6-11.0); Carbon Dioxide 18.6 mmol/L (21.0-32.0); Chloride 103 mmol/L (98-108); Creatinine, Serum 2.19 mg/dL (0.70-1.20); EST Glomerular Filtration Rate 30 (>60); Estimated Creatinine Clearance 24.72 ml/min (50-250); Glucose 177 mg/dL (70-99); Potassium 5.9 mmol/L (3.3-5.1); Sodium Level 135 mmol/L (133-145)
[2025-01-03] MEDS: Heparin Injection (Vial) 5,000 UNIT/ML VIAL 5000 UNIT SC (21:21)
[2025-01-03] MEDS: Gabapentin 300 MG Capsule PO (21:21)
[2025-01-03] MEDS: Tamsulosin HCl 0.4 MG Capsule PO (21:21)
[2025-01-03] MEDS: Isosorbide DN 10 MG Tablet PO (21:22)
[2025-01-03 22:04] LABS: Bedside Glucose 151 mg/dL (74-106)
[2025-01-03 23:56] LABS: Anion Gap 18 (5-15); BUN 53 mg/dL (4-19); BUN/Creat Ratio 23.4 RATIO (10-20); Calcium,Total 9.9 mg/dL (7.6-11.0); Carbon Dioxide 15.7 mmol/L (21.0-32.0); Chloride 103 mmol/L (98-108); Creatinine, Serum 2.25 mg/dL (0.70-1.20); EST Glomerular Filtration Rate 29 (>60); Estimated Creatinine Clearance 24.06 ml/min (50-250); Glucose 168 mg/dL (70-99); Potassium 6.4 mmol/L (3.3-5.1); Sodium Level 136 mmol/L (133-145)
[2025-01-04] VITALS (10 sets, daily range): BP systolic 99–134; BP diastolic 53–75; PULSE 73–103; RESP 16–20; TEMP 36.3–36.9; O2SAT 97–100
[2025-01-04 04:47] LABS: Hemoglobin 10.4 g/dL (13.0-16.5); Mean Corp Hgb Conc 32.5 g/dL (32-36); Mean Corpuscular Hgb 30.1 pg (27.0-32.0); Mean Corpuscular Volume 92.5 fL (80-94); Mean Platelet Vol. 10.2 fl (6.2-12.0); Platelet Count 458 K/mm3 (150-450); RBC Distribution Width CV 14.7 % (11.6-14.6); RBC Distribution Width SD 49.1 fl (35.1-43.9); Red Blood Count 3.46 M/mm3 (4.6-6.2); White Blood Count 8.7 K/mm3 (4.4-11.0)
[2025-01-04 05:14] LABS: Anion Gap 14 (5-15); BUN 52 mg/dL (4-19); Carbon Dioxide 15.5 mmol/L (21.0-32.0); Chloride 104 mmol/L (98-108); Creatinine, Serum 2.27 mg/dL (0.70-1.20); EST Glomerular Filtration Rate 29 (>60); Estimated Creatinine Clearance 23.85 ml/min (50-250); Glucose 166 mg/dL (70-99); Potassium 6.6 mmol/L (3.3-5.1); Sodium Level 133 mmol/L (133-145)
[2025-01-04] MEDS: Insulin Lispro 100 UNIT/ML INSULN.PEN SC ×2 (06:33→22:11)
[2025-01-04] MEDS: Isosorbide DN 10 MG Tablet PO ×3 (06:35→22:11)
[2025-01-04 07:18] LABS: Bedside Glucose 157 mg/dL (74-106)
[2025-01-04] MEDS: Aspirin 81 MG TAB.CHEW PO (08:50)
[2025-01-04] MEDS: Finasteride 5 MG Tablet PO (08:50)
[2025-01-04] MEDS: Heparin Injection (Vial) 5,000 UNIT/ML VIAL 5000 UNIT SC ×2 (08:50→22:15)
[2025-01-04] MEDS: Carvedilol 6.25 MG Tablet PO ×2 (08:50→17:57)
[2025-01-04] MEDS: Cholecalciferol (VIT D3) 25 MCG TABLET (1,000 UNITS) PO (08:50)
--- NOTE | 2025-01-04 09:28 | WOUNDNOTE ---
Ostomy appliance intact to the right lower abdomen. Pt states he has been feeling very tired. will plan to change appliance again tomorrow unless pt has a leak before then. pt denies further needs at this time.
[2025-01-04] MEDS: Insulin Lispro 10 UNIT in Syringe 0 ML 6 UNIT IV ×2 (10:40→14:51)
[2025-01-04] MEDS: Sodium Bicarbonate 8.4% 50 ML Syringe 50 MEQ IV (10:40)
[2025-01-04] MEDS: 0.9% Saline Lock 10 ML Syringe IV ×3 (10:42→22:21)
[2025-01-04] MEDS: Sodium Polystyrene Sulfonate 15 GM/60 ML UDC 30 GM PO (10:42)
[2025-01-04] MEDS: Dextrose 10%-Water 250 ML 999 ML IV ×2 (10:42→14:43)
[2025-01-04] MEDS: Furosemide 40 MG/4 ML Vial IV (10:42)
--- NOTE | 2025-01-04 11:10 | PCM.PN.HOSP ---
Reason for Visit Reason for Visit: Diagnoses Hyperkalemia (01/03/25) Subjective Subjective Saw patient at bedside this morning. Patient appeared similar to yesterday, remains fatigued but otherwise resting comfortably in bed and in no acute distress. Denies any new concerns this morning. Objective Data Objective Data Vital Signs: Vital Signs Temp Pulse Resp BP Pulse Ox O2 Del Method 97.8 F 73 16 107/53 L 99 Room Air 01/04/25 10:30 01/04/25 10:30 01/04/25 10:30 01/04/25 10:30 01/04/25 10:30 01/04/25 10:30 Oxygen Delivery Method Room Air Weight: 62.868 kg Body Mass Index (BMI) 22.4 Intake & Output: Intake and Output for Last 24 Hours 01/02/25 01/03/25 01/04/25 23:59 23:59 23:59 Intake Total 1530 / 1530 100 / 100 Output Total 450 / 450 360 / 360 Balance 1080 / 1080 -260 / -260 Medical Nutrition Assessment Dietitian: Malnutrition Criteria Met Start: 01/03/25 16:33 Freq: Status: Active Protocol: Document 01/03/25 16:33 SB (Rec: 01/03/25 16:34 SB [id number]) Nutrition Malnutrition Evidence of Yes Malnutrition Exists Malnutrition (severe Acute Illness/Injury ): Evidenced By Suboptimal Energy Intake (Severe),Weight Loss (Severe), Physical Changes (Moderate) Clinical Problem Acute Disease or Injury Related Malnutrition Etiology severe related to inadequate oral intake and dysphagia Signs/Symptoms as evidenced by PO meeting <50% of estimated nutrition needs x 1 month, 15% unintentional weight loss x 1 month, and moderate wasting in clavicle and orbitals. Status Active Problem Swallowing Difficulty Etiology likely related to recent intubation Signs/Symptoms as evidenced by minced/moist texture with mildly thick liquids. Status Active Problem Recommendation Dietitian Adjust to liberal regular diet with potassium Recommendations/ restriction due to signs and symptoms of malnutrition Changes per INVESTIGATION MANAGER recommendations. Will order 120ml EPHP 4x daily with medpass. Will monitor weight trends. Lab / Micro Data 01/04/25 04:04 01/04/25 04:04 Labs: Laboratory Results - last 24 hr 01/03/25 11:53: POC Glucose 230 H 01/03/25 13:03: Potassium 6.0 H*, Lactic Acid 1.7 01/03/25 15:20: Sodium 135, Potassium 6.2 H*, Chloride 106, Carbon Dioxide 14.6 L, Anion Gap 15, BUN 53 H, Creatinine 2.20 H, Estim Creat Clear Calc 24.61 L, Est GFR (MDRD) Non-Af 30 L, BUN/Creatinine Ratio 24.1 H, Glucose 190 H, Calcium 10.5 01/03/25 15:22: POC Glucose 175 H 01/03/25 18:20: Sodium 135, Potassium 5.9 H, Chloride 103, Carbon Dioxide 18.6 L, Anion Gap 13, BUN 52 H, Creatinine 2.19 H, Estim Creat Clear Calc 24.72 L, Est GFR (MDRD) Non-Af 30 L, BUN/Creatinine Ratio 23.9 H, Glucose 177 H, Calcium 10.6 01/03/25 21:35: POC Glucose 151 H 01/03/25 22:55: Sodium 136, Potassium 6.4 H*, Chloride 103, Carbon Dioxide 15.7 L, Anion Gap 18 H, BUN 53 H, Creatinine 2.25 H, Estim Creat Clear Calc 24.06 L, Est GFR (MDRD) Non-Af 29 L, BUN/Creatinine Ratio 23.4 H, Glucose 168 H, Calcium 9.9 01/04/25 04:04: WBC 8.7, RBC 3.46 L, Hgb 10.4 L, Hct 32.0 L, MCV 92.5, MCH 30.1, MCHC 32.5, RDW Std Deviation 49.1 H, RDW Coeff of Disha 14.7 H, Plt Count 458 H, MPV 10.2, Sodium 133, Potassium 6.6 H*, Chloride 104, Carbon Dioxide 15.5 L, Anion Gap 14, BUN 52 H, Creatinine 2.27 H, Estim Creat Clear Calc 23.85 L, Est GFR (MDRD) Non-Af 29 L, BUN/Creatinine Ratio 23.0 H, Glucose 166 H, Calcium 10.0 01/04/25 06:32: POC Glucose 157 H Radiography Diagnostic Testing: Radiology Impression Chest X-Ray 01/03/25 13:20 IMPRESSION: Old left rib fractures are again seen. No acute osseous process is evident. Lungs appear clear of acute disease. No pleural effusion or pneumothorax is noted. The cardiomediastinal silhouette appears within the normal range. No evidence of acute cardiopulmonary disease. Reading Location: [id number] Abdomen/Pelvis CT 01/03/25 13:26 IMPRESSION: Status post right hemicolectomy with ileostomy as described. Postsurgical changes are seen at the operative site with possible small abscess. A repeat examination with oral contrast is recommended. A suprapubic catheter is seen within the urinary bladder. There is diffuse bladder wall thickening. OVERALL FINAL ASSESSMENT: . LI-RADS is not meant to be used in patients <18 years or patients with cirrhosis due to congenital hepatic fibrosis or due to vascular disorders, because these patients have a lower chance of developing HCC. Reading Location: [facility] Rhythm Strip Rhythm Strip: Sinus Rhythm Rate: 98 Ectopy: None Physical Exam Const alert, oriented x3, no apparent distress and average body habitus Constitutional Narrative: Elderly male, fatigued and chronically ill-appearing, otherwise sitting back comfortably in bed, answering questions appropriately, in no acute distress. Stable. General Appearance: cooperative and comfortable HEENT normocephalic, head/scalp atraumatic, hearing grossly normal bilaterally, nasal mucous membranes and turbinates normal and moist oral mucous membranes Eyes PERRL, EOMs intact bilaterally and conjunctivae normal Neck full ROM Chest inspection of chest normal Resp normal respiratory effort, normal air movement, no use of accessory muscles and clear to auscultation bilaterally Cardio regular rate, regular rhythm, no murmurs and peripheral pulses 2+ throughout GI GI Narrative: Colostomy bag in place with normal-appearing stool output. Mild diffuse tenderness to palpation but abdomen otherwise soft and nondistended. Stable. Back/Spine normal ROM Extremity normal to inspection, full ROM and no pedal edema Skin no rashes or lesions noted Psych mental status grossly normal Assessment & Plan Assessment/Plan (1) Acute hyperkalemia: PLAN: Plan Patient is a 79-year-old male who presented to [facility] ED on 01/03/2025 with acute hyperkalemia. 1. Acute hyperkalemia ? Potassium 7.4 on admit. EKG showed peaked T waves and apparent mild QRS widening. Treated medically in the ED with significant improvement to 6.2 on recheck. Potassium at ER 5.9 on evening of 01/03 but with less aggressive medical treatment potassium worsened to 6.6 again on morning of 01/04. Will treat aggressively again today medically. Will check BMP at 12 PM and 6 PM today. As noted previously, creatinine remains at baseline around 2.2 and patient has had adequate urine output. No clear etiology for hyperkalemia aside from recent high potassium intake from Ensure drinks while in the TCU. Continue regular diet with potassium restriction. Hopeful that with aggressive treatment today his potassium will be significantly improved tomorrow and he will be stable for discharge back to TCU. 2. 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 Recently required 3 HD sessions at [facility] reportedly for significant uremia. Creatinine 2.2 on admission here with BUN 53. Potassium improved with medical treatment as noted above. Patient with adequate urine output at this point. No indications for dialysis and no need for nephrology consult at this time. 3. Recent bowel perforation s/p hemicolectomy with ostomy placement ? See Dr. Londono's note from 12/26 for further details. Patient with mild diffuse abdominal pain on admit but abdomen otherwise soft and nondistended. CT abdomen pelvis without contrast showed expected postsurgical changes with no other acute concerns. Lactate normal. Has had normal ostomy output recently. No inpatient needs at this time. 4. Recently diagnosed HFrEF with severe aortic stenosis ? See Dr. Londono's note from 12/26 for further details. Echo at [facility] Showed EF 30% and severe aortic stenosis. Recommendation was for TAVR evaluation once medically improved. Has been stable on Coreg 6.25 mg twice daily and isosorbide dinitrate 10 mg 3 times daily. Will continue these medications at this time. 5. Type 2 diabetes mellitus with diabetic neuropathy ? Hold home glimepiride and metformin. Will treat with sliding scale insulin with meals while inpatient, adjust as needed. Continue home gabapentin. 6. 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 Killian catheter in place and will continue this with plan for voiding trial after discharge. Continue home finasteride and tamsulosin. DVT prophylaxis: Heparin subcu CODE STATUS: Full code, verified Expected disposition: Back to TCU, 1 to 2 days Total clinical time spent by myself addressing the patient's medical issues, reviewing all the data, and collaborating with patient's care team: 35 minutes. Charges/Coding Visit Charges Inpatient E&M: 05915 Subs Hosp L2
[2025-01-04 11:14] LABS: Bedside Glucose 212 mg/dL (74-106)
[2025-01-04] MEDS: 0.9% Normal Saline (1000mL) 1,000 ML 500 ML IV (11:16)
[2025-01-04] MEDS: Ferrous Sulfate 325 MG Tablet PO (11:42)
[2025-01-04 13:15] LABS: Anion Gap 14 (5-15); BUN 54 mg/dL (4-19); BUN/Creat Ratio 22.2 RATIO (10-20); Calcium,Total 9.4 mg/dL (7.6-11.0); Carbon Dioxide 17.9 mmol/L (21.0-32.0); Chloride 104 mmol/L (98-108); Creatinine, Serum 2.44 mg/dL (0.70-1.20); EST Glomerular Filtration Rate 26 (>60); Estimated Creatinine Clearance 22.19 ml/min (50-250); Glucose 168 mg/dL (70-99); Potassium 6.1 mmol/L (3.3-5.1); Sodium Level 136 mmol/L (133-145)
--- NOTE | 2025-01-04 14:04 | NUR.TO.PHY ---
Was called by nursing for ostomy appliance leaking. Pt has been taking Kayexalate d/t hyperkalemia and having increasing stools. removed the appliance. cleansed skin with warm water. pat dry. peristomal skin is intact. very mild redness noted. placed paste ring and 1 piece convex [place] appliance. Pt tolerated well. will continue teaching with patient and . pt denies further needs at this time.
--- NOTE | 2025-01-04 14:34 | CT_ITS ---
PROCEDURE: ABDOMEN/PEL W ORAL CONT ONLY 01/04/2025 REASON FOR EXAM: R/O POST-OP ABSCESS. Status post hemicolectomy and ileostomy due to perforated bowel. TECHNIQUE: Abdomen and pelvis CT without intravenous contrast. Noncontrast technique limits evaluation of the abdominal and pelvic viscera. Coronal and Sagittal reconstruction series were provided. One or more dose reduction techniques were used (e.g., Automated exposure control, adjustment of the mA and/or kV according to patient size, use of iterative reconstruction technique). PATIENT PREPARATION: Per protocol ORAL CONTRAST TYPE: Gastrografin COMPARISON: CT abdomen pelvis 01/03/2025. FINDINGS: Lung bases: Mild bibasilar fibrosis. Severe coronary artery and aortic valvular calcifications. Liver: The unopacified liver is normal in size. No biliary ductal dilation. Gallbladder: No radiopaque stones within the gallbladder. Spleen: Normal in size. Pancreas: The unopacified pancreas is atrophic with a few scattered punctate calcifications. Adrenals: No adrenal mass. Kidneys: Mild symmetric renal cortical atrophy. Nonobstructing right upper pole renal calculus. No hydronephrosis. Bladder: Decompressed by indwelling Killian catheter. Nondependent intraluminal gas, likely secondary to recent instrumentation. Reproductive Organs: Unremarkable. Bowel: Oral contrast material opacifies the stomach and small bowel loops. Status post recent right hemicolectomy and ileostomy in the right lower quadrant. Unchanged fluid and gas collection near the surgical anastomosis within the right upper quadrant (series 2, image 56) without intraluminal contrast material. Mild mesenteric edema and stranding, likely postoperative. Persistent severe distal colonic diverticulosis. Lymph nodes: No suspicious lymphadenopathy. Vasculature: Severe calcific plaque of the aortoiliac vessels. Bones/soft tissues: Prior posterior instrumentation and spinal fixation, intervertebral disc spacers and bone grafting of the lumbar spine. Prior hernia repair with numerous surgical anchors throughout the lower pelvis. CT/Abdomen/Pel W ORAL Cont Only IMPRESSION: 1. Right anterior upper quadrant fluid and gas collection without intraluminal contrast material, compatible with intra-abdominal abscess. 2. Status post recent right hemicolectomy and ileostomy. 3. Stable severe distal colonic diverticulosis. Reading Location: [id number]
--- NOTE | 2025-01-04 15:12 | CASEMGMT ---
SW was asked by TCU SW to check in with patient regarding whether or not patient is connected with [facility] and provide counseling resources. SW met with patient. Introduced self and role at [facility]. Patient's Alexia was also present. SW explained the TCU SW had asked SW to check in with patient as to whether or not he is connected with the [facility]. Patient's spoke up and said we already signed a paper stating we do not want [facility] to pay for anything. SW verbalized understanding and attempted to explain SW was asking in the event he would need home health aides at home that is something the [facility] could assist with. Both patient and his told SW they don't know what he will need yet. SW also provided patient with counseling resources. SW apologized to patient and his as SW did not mean to upset anyone. Patient and his said it is okay. Patient's just asked that the [facility] not be mentioned anymore. SW let them know SW will pass this along to the TCU SW. Patient's needed taken to the main entrance via wheelchair so SW assisted her with this. She was appreciative and apologized for sounding so gruff. SW assured her she is fine and there is no need to apologize. She is just watching out for her and that is understandable. She thanked OWEN. Rhonda Ortiz COUNTRY SALES MANAGER LALITO
[2025-01-04 15:19] LABS: Bedside Glucose 167 mg/dL (74-106)
[2025-01-04] MEDS: 0.9% Normal Saline (1000mL) 1,000 ML 250 ML IV (15:20)
--- NOTE | 2025-01-04 15:59 | CHAPLAIN ---
Type of Pastoral Visit ___ Initial Visit _x__ Follow-up Visit ___ On-call Visit ___ General Patient Visit ___ Spiritual Assessment ___ Family Conference ___ Bereavement ___ Rapid Response ___ Code Blue ___ Other (describe below) Pastoral Care Referral From _x__ Patient ___ Family ___ Nurse ___ Physician ___ Cloud Developer ___ Box Gluer ___ Other (describe below) Sacrament/Intervention _x__ Active listening ___ Anointing ___ Temple ___ Bereavement ___ Communion ___ Cris exploration ___ _x__ Life review _x__ Prayer ___ Reconciliation ___ Sacrament of Sick _x__ Supportive presence ___ Wedding ___ Other (describe below) Pastoral Comments patient follow up who was in TCU and now in [facility]2; pt is welcoming and reviews his journey and current situation in hospital; pt also gives some sensitive life review as a Vet and states that he finds relief in being able to vent some of those memories today; pt is a person of cris and looks at his life as being blessed by God's watch and presence; pt welcomes prayer for support
[2025-01-04 16:24] LABS: Bedside Glucose 140 mg/dL (74-106)
[2025-01-04 19:13] LABS: Anion Gap 15 (5-15); BUN 49 mg/dL (4-19); BUN/Creat Ratio 21.5 RATIO (10-20); Calcium,Total 9.1 mg/dL (7.6-11.0); Carbon Dioxide 16.7 mmol/L (21.0-32.0); Chloride 100 mmol/L (98-108); Creatinine, Serum 2.28 mg/dL (0.70-1.20); EST Glomerular Filtration Rate 29 (>60); Estimated Creatinine Clearance 23.74 ml/min (50-250); Glucose 138 mg/dL (70-99); Potassium 5.4 mmol/L (3.3-5.1); Sodium Level 132 mmol/L (133-145)
[2025-01-04] MEDS: Tamsulosin HCl 0.4 MG Capsule PO (22:11)
[2025-01-04] MEDS: Gabapentin 300 MG Capsule PO (22:14)
[2025-01-04 22:36] LABS: Bedside Glucose 229 mg/dL (74-106)
[2025-01-05] VITALS (10 sets, daily range): BP systolic 98–112; BP diastolic 47–79; PULSE 82–100; RESP 14–18; TEMP 36.5–36.8; O2SAT 93–99
[2025-01-05] MEDS: Isosorbide DN 10 MG Tablet PO ×2 (06:47→14:50)
[2025-01-05] MEDS: Insulin Lispro 100 UNIT/ML INSULN.PEN SC ×4 (06:50→21:47)
[2025-01-05 06:56] LABS: Hematocrit 25.1 % (40-54); Hemoglobin 8.3 g/dL (13.0-16.5); Mean Corp Hgb Conc 33.1 g/dL (32-36); Mean Corpuscular Volume 90.6 fL (80-94); Mean Platelet Vol. 10.4 fl (6.2-12.0); Platelet Count 375 K/mm3 (150-450); RBC Distribution Width CV 14.4 % (11.6-14.6); RBC Distribution Width SD 47.8 fl (35.1-43.9); Red Blood Count 2.77 M/mm3 (4.6-6.2); White Blood Count 8.4 K/mm3 (4.4-11.0)
[2025-01-05 07:24] LABS: Bedside Glucose 172 mg/dL (74-106)
[2025-01-05 07:28] LABS: Anion Gap 11 (5-15); BUN 49 mg/dL (4-19); BUN/Creat Ratio 21.7 RATIO (10-20); Calcium,Total 8.9 mg/dL (7.6-11.0); Carbon Dioxide 16.2 mmol/L (21.0-32.0); Chloride 104 mmol/L (98-108); Creatinine, Serum 2.24 mg/dL (0.70-1.20); EST Glomerular Filtration Rate 29 (>60); Estimated Creatinine Clearance 24.17 ml/min (50-250); Glucose 169 mg/dL (70-99); Potassium 6.1 mmol/L (3.3-5.1); Sodium Level 132 mmol/L (133-145)
[2025-01-05] MEDS: 0.9% Saline Lock 10 ML Syringe IV (08:36)
[2025-01-05] MEDS: Insulin Lispro 10 UNIT in Syringe 0 ML 6 UNIT IV (08:36)
[2025-01-05] MEDS: Dextrose 10%-Water 250 ML 999 ML IV (08:36)
[2025-01-05] MEDS: Sodium Bicarbonate 8.4% 50 ML Syringe 50 MEQ IV (08:37)
--- NOTE | 2025-01-05 09:07 | WOUNDNOTE ---
Pt sitting up in bed eating breakfast. pt states he still feels tired this am. there is a small amount of unformed brown stool in the ostomy appliance. appliance intact. no sign of leak noted. pt denies needs at this time.
[2025-01-05] MEDS: Piperacil/Tazobactam 3.375 GM in 0.9% Normal Saline (50mL MB+) 50 ML IV ×3 (09:15→21:35)
[2025-01-05] MEDS: 0.9% Normal Saline (250mL Bag) 250 ML 15 ML IV (09:15)
[2025-01-05] MEDS: Carvedilol 6.25 MG Tablet PO ×2 (09:57→16:36)
[2025-01-05] MEDS: Aspirin 81 MG TAB.CHEW PO (09:57)
[2025-01-05] MEDS: Cholecalciferol (VIT D3) 25 MCG TABLET (1,000 UNITS) PO (09:57)
[2025-01-05] MEDS: Heparin Injection (Vial) 5,000 UNIT/ML VIAL 5000 UNIT SC ×2 (09:58→21:39)
[2025-01-05] MEDS: Finasteride 5 MG Tablet PO (09:58)
--- NOTE | 2025-01-05 10:03 | PCM.PN.HOSP ---
Reason for Visit Reason for Visit: Diagnoses Hyperkalemia (01/03/25) Subjective Subjective Saw patient at bedside this morning. Patient had slightly improved energy level today but otherwise was sitting back comfortably in bed and in no acute distress. Importantly, patient was found on CT abdomen pelvis with oral contrast to have an area concerning for abscess near the bowel anastomosis site from his recent procedure. I discussed this over the phone with Dr. Mcrae from surgery who noted the area appeared small and not too impressive. He recommended treating with IV antibiotics with repeat CT scan in 2 to 3 days. No need for urgent transfer for surgical services in [place]. Patient continues to have only mild diffuse abdominal pain, no localized abdominal pain. Denies any fevers or chills. Unfortunately has had recurring worsening potassium with potassium level 6.1 this morning, so nephrology was consulted for assistance with management as well. Objective Data Objective Data Vital Signs: Vital Signs Temp Pulse Resp BP Pulse Ox O2 Del Method 97.7 F L 91 17 101/70 99 Room Air 01/05/25 09:56 01/05/25 09:56 01/05/25 09:56 01/05/25 09:56 01/05/25 09:56 01/05/25 09:56 Oxygen Delivery Method Room Air Weight: 62.868 kg Body Mass Index (BMI) 22.4 Intake & Output: Intake and Output for Last 24 Hours 01/03/25 01/04/25 01/05/25 23:59 23:59 23:59 Intake Total 1530 / 1530 3550 / 3550 250.25 / 250.25 Output Total 450 / 450 2510 / 3010 800 / 800 Balance 1080 / 1080 1040 / 540 -549.75 / -549.75 Medical Nutrition Assessment Dietitian: Malnutrition Criteria Met Start: 01/03/25 16:33 Freq: Status: Active Protocol: Document 01/03/25 16:33 SB (Rec: 01/03/25 16:34 SB [id number]) Nutrition Malnutrition Evidence of Yes Malnutrition Exists Malnutrition (severe Acute Illness/Injury ): Evidenced By Suboptimal Energy Intake (Severe),Weight Loss (Severe), Physical Changes (Moderate) Clinical Problem Acute Disease or Injury Related Malnutrition Etiology severe related to inadequate oral intake and dysphagia Signs/Symptoms as evidenced by PO meeting <50% of estimated nutrition needs x 1 month, 15% unintentional weight loss x 1 month, and moderate wasting in clavicle and orbitals. Status Active Problem Swallowing Difficulty Etiology likely related to recent intubation Signs/Symptoms as evidenced by minced/moist texture with mildly thick liquids. Status Active Problem Recommendation Dietitian Adjust to liberal regular diet with potassium Recommendations/ restriction due to signs and symptoms of malnutrition Changes per PRECISION INSTRUMENT MAKER recommendations. Will order 120ml EPHP 4x daily with medpass. Will monitor weight trends. Lab / Micro Data 01/05/25 06:35 01/05/25 06:35 Labs: Laboratory Results - last 24 hr 01/04/25 10:36: POC Glucose 212 H 01/04/25 12:09: Sodium 136, Potassium 6.1 H*, Chloride 104, Carbon Dioxide 17.9 L, Anion Gap 14, BUN 54 H, Creatinine 2.44 H, Estim Creat Clear Calc 22.19 L, Est GFR (MDRD) Non-Af 26 L, BUN/Creatinine Ratio 22.2 H, Glucose 168 H, Calcium 9.4 01/04/25 14:42: POC Glucose 167 H 01/04/25 16:06: POC Glucose 140 H 01/04/25 18:35: Sodium 132 L, Potassium 5.4 H, Chloride 100, Carbon Dioxide 16.7 L, Anion Gap 15, BUN 49 H, Creatinine 2.28 H, Estim Creat Clear Calc 23.74 L, Est GFR (MDRD) Non-Af 29 L, BUN/Creatinine Ratio 21.5 H, Glucose 138 H, Calcium 9.1 01/04/25 22:10: POC Glucose 229 H 01/05/25 06:35: WBC 8.4, RBC 2.77 L, Hgb 8.3 L, Hct 25.1 L, MCV 90.6, MCH 30.0, MCHC 33.1, RDW Std Deviation 47.8 H, RDW Coeff of Disha 14.4, Plt Count 375, MPV 10.4, Sodium 132 L, Potassium 6.1 H*, Chloride 104, Carbon Dioxide 16.2 L, Anion Gap 11, BUN 49 H, Creatinine 2.24 H, Estim Creat Clear Calc 24.17 L, Est GFR (MDRD) Non-Af 29 L, BUN/Creatinine Ratio 21.7 H, Glucose 169 H, Calcium 8.9 01/05/25 06:50: POC Glucose 172 H Radiography Diagnostic Testing: Radiology Impression Abdomen CT 01/04/25 14:34 IMPRESSION: 1. Right anterior upper quadrant fluid and gas collection without intraluminal contrast material, compatible with intra-abdominal abscess. 2. Status post recent right hemicolectomy and ileostomy. 3. Stable severe distal colonic diverticulosis. Reading Location: [facility] Rhythm Strip Rhythm Strip: Sinus Rhythm Rate: 98 Ectopy: None Physical Exam Const alert, oriented x3, no apparent distress and average body habitus Constitutional Narrative: Elderly male, mildly fatigued but energy improving and chronically ill-appearing, otherwise sitting back comfortably in bed, answering questions appropriately, in no acute distress. General Appearance: cooperative and comfortable HEENT normocephalic, head/scalp atraumatic, hearing grossly normal bilaterally, nasal mucous membranes and turbinates normal and moist oral mucous membranes Eyes PERRL, EOMs intact bilaterally and conjunctivae normal Neck full ROM Chest inspection of chest normal Resp normal respiratory effort, normal air movement, no use of accessory muscles and clear to auscultation bilaterally Cardio regular rate, regular rhythm, no murmurs and peripheral pulses 2+ throughout GI GI Narrative: Colostomy bag in place with normal-appearing stool output. Mild diffuse tenderness to palpation but abdomen otherwise soft and nondistended. Stable. Back/Spine normal ROM Extremity normal to inspection, full ROM and no pedal edema Skin no rashes or lesions noted Psych mental status grossly normal Assessment & Plan Assessment/Plan (1) Acute hyperkalemia: PLAN: Plan Patient is a 79-year-old male who presented to [facility] ED on 01/03/2025 with acute hyperkalemia. 1. Acute hyperkalemia, improving ? Nephrology following. Potassium 7.4 on admit. EKG showed peaked T waves and apparent mild QRS widening. Treated medically in the ED with significant improvement to 6.2 on recheck. Potassium elissa of 5.4 on the evening of 01/04 but unfortunately has worsened again each morning. Most recent potassium 6.1 on morning of 01/05 with sodium bicarb of 16. Per nephrology, initiated on sodium bicarbonate drip. Continue low potassium diet with no Ensure protein drinks. Has had good urine output, no acute indication for dialysis. Will check repeat BMPs at 12 PM and 6 PM again today. Continue to monitor closely. 2. Suspected small postoperative abscess in setting of recent bowel perforation s/p hemicolectomy with ostomy placement ? See Dr. Londono's note from 12/26 for further details. In short, patient presented on 12/02 here with abdominal pain and was found to have free air under the diaphragm. Was emergently transferred to [facility] And underwent ex lap with right hemicolectomy with bowel anastomosis. Did well from a bowel standpoint postoperatively. Since admission here has had mild diffuse abdominal pain but no other infectious symptoms and no change in colostomy output. However given his ongoing hyperkalemia and mild bowel pain, CT abdomen pelvis without contrast was obtained and showed concern for possible abscess at anastomosis site. CT abdomen pelvis with oral contrast on 01/04 showed a small right anterior upper quadrant fluid and gas collection without intraluminal contrast compatible with intra-abdominal abscess. Discussed case with general surgery here who recommended initiation of IV antibiotics and repeat CT scan in 2 to 3 days. No need for urgent transfer back to [place] at this time. Started on IV Zosyn on 01/05. Monitor closely. 3. 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 Recently required 3 HD sessions at [facility] reportedly for significant uremia. Creatinine 2.2 on admission here with BUN 53. Potassium improved with medical treatment as noted above. Patient with adequate urine output at this point. No indications for dialysis and no need for nephrology consult at this time. 4. Recently diagnosed HFrEF with severe aortic stenosis ? See Dr. Londono's note from 12/26 for further details. Echo at [facility] Showed EF 30% and severe aortic stenosis. Recommendation was for TAVR evaluation once medically improved. Has been stable on Coreg 6.25 mg twice daily and isosorbide dinitrate 10 mg 3 times daily. Will continue these medications at this time. 5. Type 2 diabetes mellitus with diabetic neuropathy ? Hold home glimepiride and metformin. Continue treatment with sliding scale insulin with meals while inpatient, adjust as needed. Continue home gabapentin. 6. 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 Killian catheter in place and will continue this with plan for voiding trial after discharge. Continue home finasteride and tamsulosin. 7. Acute on chronic debility ? PT/OT/case management following. Patient presented here from the TCU and tentative plan is for discharge back to TCU once medically ready. DVT prophylaxis: Heparin subcu CODE STATUS: Full code, verified Expected disposition: Back to TCU, TBD Total clinical time spent by myself addressing the patient's medical issues, reviewing all the data, and collaborating with patient's care team: 35 minutes. Charges/Coding Visit Charges Inpatient E&M: 24952 Subs Hosp L2
--- NOTE | 2025-01-05 10:46 | PCM.CONS.R ---
Assessment & Plan Assessment/Plan (1) Hyperkalemia: PLAN: Plan This is a pleasant 79-year-old male with recent medical history significant for spine surgery then perforated bowel status post right hemicolectomy with partial colectomy of the transverse colon with wound VAC placement at [facility] from December 03 to December 26, patient was discharged then to TCU for rehab. Patient's past medical history also includes hypertension, BPH, heart failure reduced EF with a EF 30%, severe aortic stenosis, patient also developed HAMMAD when at [facility] requiring hemodialysis around 3 treatments. Fortunately by time of hospital discharge kidney function improved and patient no longer needed hemodialysis. For this admission nephrology consulted in view of hyperkalemia. No recent CORWIN or ARB's. Patient states no recent potassium supplements at home. Peak potassium was 7.4, with hyperkalemia protocol and Kayexalate potassium improved to 5.4 yesterday. Potassium is 6.1 today, bicarb 16. Today patient has received sodium bicarb, D10 and insulin for hyperkalemia. He is also on low potassium restrictions. Yesterday patient had 1.9 L stool output, already around 500 stool output for today. Will start patient on bicarb drip. Will stop Ensure protein supplement and start on Nepro 4 times daily. Also reviewed with patient foods to limit and/or avoid that are high in potassium. Serum creatinine appears to be near baseline, low 2mg/dL range. Patient has good urine output. No acute indication for LEASE PURCHASE DRIVER. Further orders forthcoming as hospitalization evolves, thank you for allowing us to participate in the care of Mr. Barnett. Assessment and plan reviewed with Dr. Wilson. HPI Consult Data Date of Consult: 01/05/25 HPI Narrative HPI Narrative: SYD BARNETT, is a 79 M who presented to the emergency room from the rehab unit after he was found to have potassium of 7.4. Patient was admitted for further evaluation and treatment. Patient has recent medical history significant for perforated bowel status post right hemicolectomy with partial colectomy of the transverse colon with wound VAC placement at [facility] from December 03 to December 26, patient was discharged to TCU for rehab. Patient's past medical history also includes hypertension, BPH, heart failure reduced EF with a EF 30%, severe aortic stenosis, patient also treated for severe HAMMAD underwent 3 hemodialysis sessions when at [facility], fortunately kidney function improved and patient did not need hemodialysis when discharged from the hospital. Nephrology consulted this admission for hyperkalemia. Highest potassium was 7.4 on January 03, potassium did improved to 5.4 yesterday but potassium today back up to 6.1. Creatinine has been around low 2 mg/dL. Today patient denies any nausea or vomiting. No diarrhea. States appetite is fair. Patient does endorse that he had been eating tomatoes, oranges and orange juice. Patient denies any chest pain. [facility] Medical History (Updated 01/05/25 @ 10:52 by Tiff Emmanuel NP-Dick) Kidney disease Irregular heart beat CKD (chronic kidney disease), stage IV Wears glasses Wears dentures BPH (benign prostatic hyperplasia) Arthritis Prostate disease Low iron History of diverticulitis Heartburn Former smoker Leg cramps History of echocardiogram Hypertrophic scar Carotid stenosis, left Sebaceous cyst Amaurosis fugax of right eye Sciatica Hyperlipidemia Osteoarthritis Hemorrhoid GERD (gastroesophageal reflux disease) HTN (hypertension) Diabetes Carotid stenosis Home Medications ?Medication ?Instructions ?Recorded ?Last Taken ?Type aspirin 81 mg tablet,delayed 81 mg PO DAILY@0800 [facility] 04/16/17 11/26/24 09:00 History release glimepiride 2 mg tablet 2 mg PO BREAKFAST dm 04/16/17 11/26/24 09:00 History hydrochlorothiazide 25 mg tablet 25 mg PO DAILY bp 04/16/17 11/26/24 09:00 History metformin 1,000 mg tablet 1,000 mg PO BID dm 04/16/17 11/26/24 19:30 History tamsulosin 0.4 mg capsule 0.4 mg PO QHS bph 04/16/17 11/26/24 22:30 History cholecalciferol (vitamin D3) 25 25 mcg PO DAILY SUPPLEMENT 04/05/23 11/26/24 09:00 History mcg (1,000 unit) capsule zinc acetate 25 mg (zinc) capsule 50 mg PO DAILY SUPPLEMENT 04/05/23 11/26/24 09:00 History ascorbic acid (vitamin C) 500 mg 500 mg PO DAILY SUPPLEMENT 09/15/24 11/26/24 09:00 History capsule ferrous sulfate 325 mg (65 mg 325 mg PO QDAY SUPPLEMENT 09/15/24 11/26/24 09:00 History iron) tablet (Feosol) gabapentin 300 mg capsule 300 mg PO QHS PAIN 10/31/24 11/25/24 22:30 History amlodipine 10 mg tablet 10 mg PO DAILY htn 11/27/24 11/26/24 09:00 History acetaminophen 500 mg tablet 500 mg PO Q6H #30 tabs 11/29/24 Unknown Rx methocarbamol 500 mg tablet 750 mg (1.5 x 500 mg) PO TID PRN 11/29/24 Unknown Rx pain/spasms #60 tabs oxycodone 5 mg tablet 2.5 - 5 mg (0.5 - 1 x 5 mg) PO Q6H 11/29/24 Unknown Rx PRN pain 7 days #28 tabs sennosides 8.6 mg-docusate sodium 2 tab PO BID PRN constipation #30 11/29/24 Unknown Rx 50 mg tablet (Stimulant Laxative tabs Plus) Allergy/AdvReac Type Severity Reaction Status Date / Time atorvastatin (From Lipitor) Allergy INTOLERANCE Verified 12/26/24 20:42 ezetimibe (From Zetia) Allergy MYALGIA Verified 12/26/24 20:42 pravastatin Allergy MYALGIAS Verified 12/26/24 20:42 simvastatin (From Zocor) Allergy INTOLERANCE Verified 12/26/24 20:42 sitagliptin (From Januvia) Allergy INTOLERANCE Verified 12/26/24 20:42 tetanus and diphtheria Allergy Rash Verified 12/01/24 22:00 toxoids Zfqqzpx-XUJ-MvF Reductase AdvReac Other Verified 12/01/24 22:00 Inhibitor (Xaoqdpu-Qfm-Kke Reductase Inhibitor) Family History Father Diabetes Heart disease Myocardial infarction Mother CAD (coronary artery disease) Arthritis Surgical History (Updated 01/03/25 @ 12:[address] Wayne Madsen MD) History of ileostomy History of right hemicolectomy History of partial colectomy History of right-sided carotid endarterectomy History of right-sided carotid endarterectomy (~11/2017) History of umbilical hernia S/P ventral herniorrhaphy S/P inguinal hernia repair S/P colonoscopy Social History household members: spouse Smoking Status: Former smoker alcohol intake: never substance use type: does not use ROS ROS Narrative As in HPI Physical Exam Narrative Alert and oriented x 3, no apparent distress S1, S2, RRR Lungs sound clear Abdomen soft, nontender No edema Indwelling Killian with clear yellow urine in bag Medical Records Data Medical Nutrition Assessment Dietitian: Malnutrition Criteria Met Start: 01/03/25 16:33 Freq: Status: Active Protocol: Document 01/03/25 16:33 SB (Rec: 01/03/25 16:34 SB [id number]) Nutrition Malnutrition Evidence of Yes Malnutrition Exists Malnutrition (severe Acute Illness/Injury ): Evidenced By Suboptimal Energy Intake (Severe),Weight Loss (Severe), Physical Changes (Moderate) Clinical Problem Acute Disease or Injury Related Malnutrition Etiology severe related to inadequate oral intake and dysphagia Signs/Symptoms as evidenced by PO meeting <50% of estimated nutrition needs x 1 month, 15% unintentional weight loss x 1 month, and moderate wasting in clavicle and orbitals. Status Active Problem Swallowing Difficulty Etiology likely related to recent intubation Signs/Symptoms as evidenced by minced/moist texture with mildly thick liquids. Status Active Problem Recommendation Dietitian Adjust to liberal regular diet with potassium Recommendations/ restriction due to signs and symptoms of malnutrition Changes per EMERGENCY SERVICE RESTORER recommendations. Will order 120ml EPHP 4x daily with medpass. Will monitor weight trends. Lab / Micro Data 01/05/25 06:35 01/05/25 06:35 Labs: Laboratory Results - last 24 hr 01/04/25 10:36: POC Glucose 212 H 01/04/25 12:09: Sodium 136, Potassium 6.1 H*, Chloride 104, Carbon Dioxide 17.9 L, Anion Gap 14, BUN 54 H, Creatinine 2.44 H, Estim Creat Clear Calc 22.19 L, Est GFR (MDRD) Non-Af 26 L, BUN/Creatinine Ratio 22.2 H, Glucose 168 H, Calcium 9.4 01/04/25 14:42: POC Glucose 167 H 01/04/25 16:06: POC Glucose 140 H 01/04/25 18:35: Sodium 132 L, Potassium 5.4 H, Chloride 100, Carbon Dioxide 16.7 L, Anion Gap 15, BUN 49 H, Creatinine 2.28 H, Estim Creat Clear Calc 23.74 L, Est GFR (MDRD) Non-Af 29 L, BUN/Creatinine Ratio 21.5 H, Glucose 138 H, Calcium 9.1 01/04/25 22:10: POC Glucose 229 H 01/05/25 06:35: WBC 8.4, RBC 2.77 L, Hgb 8.3 L, Hct 25.1 L, MCV 90.6, MCH 30.0, MCHC 33.1, RDW Std Deviation 47.8 H, RDW Coeff of Disha 14.4, Plt Count 375, MPV 10.4, Sodium 132 L, Potassium 6.1 H*, Chloride 104, Carbon Dioxide 16.2 L, Anion Gap 11, BUN 49 H, Creatinine 2.24 H, Estim Creat Clear Calc 24.17 L, Est GFR (MDRD) Non-Af 29 L, BUN/Creatinine Ratio 21.7 H, Glucose 169 H, Calcium 8.9 01/05/25 06:50: POC Glucose 172 H Rhythm Strip Rhythm Strip: Sinus Rhythm Rate: 98 Ectopy: None Imaging Radiology Impression Abdomen CT 01/04/25 14:34 IMPRESSION: 1. Right anterior upper quadrant fluid and gas collection without intraluminal contrast material, compatible with intra-abdominal abscess. 2. Status post recent right hemicolectomy and ileostomy. 3. Stable severe distal colonic diverticulosis. Reading Location: [id number]
[2025-01-05] MEDS: Sodium Bicarbonate 150 MEQ in Dextrose 5%-Water (1000mL Bag) 1,000 ML 100 MEQ IV (11:37)
[2025-01-05] MEDS: Ferrous Sulfate 325 MG Tablet PO (11:40)
--- NOTE | 2025-01-05 11:42 | CASEMGMT ---
Social Work Per physician, pt is not ready for discharge at this time. DC plan is for pt to return to TCU at discharge. Michelle in TCU updated. Green sheet placed on pt chart to facilitate potential weekend discharge. Plan: Return to TCU, when medically ready. DONNA Sahni
[2025-01-05 11:50] LABS: Bedside Glucose 195 mg/dL (74-106)
[2025-01-05 12:42] LABS: Anion Gap 11 (5-15); BUN 48 mg/dL (4-19); BUN/Creat Ratio 21.1 RATIO (10-20); Calcium,Total 8.7 mg/dL (7.6-11.0); Carbon Dioxide 20.2 mmol/L (21.0-32.0); Chloride 101 mmol/L (98-108); Creatinine, Serum 2.27 mg/dL (0.70-1.20); EST Glomerular Filtration Rate 29 (>60); Estimated Creatinine Clearance 23.85 ml/min (50-250); Glucose 205 mg/dL (70-99); Potassium 5.7 mmol/L (3.3-5.1); Sodium Level 132 mmol/L (133-145)
[2025-01-05 16:55] LABS: Bedside Glucose 315 mg/dL (74-106)
--- NOTE | 2025-01-05 17:30 | NURSING ---
Patient's peña catheter removed per MD's order. Will monitor to see if patient voids.
[2025-01-05] MEDS: Acetaminophen 325 MG Tablet 650 MG PO (19:11)
[2025-01-05 19:55] LABS: Anion Gap 14 (5-15); BUN 47 mg/dL (4-19); BUN/Creat Ratio 21.1 RATIO (10-20); Calcium,Total 8.8 mg/dL (7.6-11.0); Chloride 97 mmol/L (98-108); Creatinine, Serum 2.25 mg/dL (0.70-1.20); EST Glomerular Filtration Rate 29 (>60); Estimated Creatinine Clearance 24.06 ml/min (50-250); Glucose 192 mg/dL (70-99); Potassium 5.4 mmol/L (3.3-5.1); Sodium Level 132 mmol/L (133-145)
[2025-01-05] MEDS: Tamsulosin HCl 0.4 MG Capsule PO (21:36)
[2025-01-05] MEDS: Gabapentin 300 MG Capsule PO (21:36)
[2025-01-05 21:48] LABS: Bedside Glucose 224 mg/dL (74-106)
[2025-01-06] VITALS (8 sets, daily range): BP systolic 96–109; BP diastolic 53–74; PULSE 91–124; RESP 16–18; TEMP 36.2–38.1; O2SAT 95–99
[2025-01-06] MEDS: Sodium Bicarbonate 150 MEQ in Dextrose 5%-Water (1000mL Bag) 1,000 ML 100 MEQ IV (02:45)
[2025-01-06] MEDS: Piperacil/Tazobactam 3.375 GM in 0.9% Normal Saline (50mL MB+) 50 ML IV ×3 (05:59→22:29)
[2025-01-06] MEDS: Isosorbide DN 10 MG Tablet PO ×2 (06:01→15:54)
[2025-01-06 07:58] LABS: Hematocrit 26.6 % (40-54); Mean Corp Hgb Conc 33.8 g/dL (32-36); Mean Corpuscular Hgb 30.3 pg (27.0-32.0); Mean Corpuscular Volume 89.6 fL (80-94); Mean Platelet Vol. 10.1 fl (6.2-12.0); Platelet Count 336 K/mm3 (150-450); RBC Distribution Width CV 14.3 % (11.6-14.6); RBC Distribution Width SD 46.4 fl (35.1-43.9); Red Blood Count 2.97 M/mm3 (4.6-6.2)
[2025-01-06 08:24] LABS: Anion Gap 13 (5-15); BUN 43 mg/dL (4-19); Calcium,Total 8.3 mg/dL (7.6-11.0); Carbon Dioxide 22.4 mmol/L (21.0-32.0); Chloride 95 mmol/L (98-108); Creatinine, Serum 2.54 mg/dL (0.70-1.20); EST Glomerular Filtration Rate 25 (>60); Estimated Creatinine Clearance 21.31 ml/min (50-250); Glucose 247 mg/dL (70-99); Potassium 5.8 mmol/L (3.3-5.1); Sodium Level 130 mmol/L (133-145)
[2025-01-06] MEDS: Cholecalciferol (VIT D3) 25 MCG TABLET (1,000 UNITS) PO (08:26)
[2025-01-06] MEDS: Aspirin 81 MG TAB.CHEW PO (08:26)
[2025-01-06] MEDS: Finasteride 5 MG Tablet PO (08:28)
[2025-01-06] MEDS: Heparin Injection (Vial) 5,000 UNIT/ML VIAL 5000 UNIT SC ×2 (08:28→21:29)
[2025-01-06] MEDS: Insulin Lispro 100 UNIT/ML INSULN.PEN SC ×4 (08:31→21:29)
--- NOTE | 2025-01-06 09:35 | PCM.PN.HOSP ---
Reason for Visit Reason for Visit: Diagnoses Hyperkalemia (01/03/25) Subjective Subjective Saw patient at bedside this morning. Patient appeared similar this morning to previous days. Continued to report mild abdominal pain but no other new concerns this morning. Objective Data Objective Data Vital Signs: Vital Signs Temp Pulse Resp BP Pulse Ox O2 Del Method 100.5 F H 120 H 16 97/53 L 95 Room Air 01/06/25 08:16 01/06/25 08:16 01/06/25 08:16 01/06/25 08:16 01/06/25 08:16 01/06/25 08:16 Oxygen Delivery Method Room Air Weight: 62.868 kg Body Mass Index (BMI) 22.4 Intake & Output: Intake and Output for Last 24 Hours 01/04/25 01/05/25 01/06/25 23:59 23:59 23:59 Intake Total 3550 / 3550 372.00 / 372.00 1200 / 1200 Output Total 2510 / 3010 1800 / 1800 300 / 300 Balance 1040 / 540 -1428.00 / -1428.00 900 / 900 Medical Nutrition Assessment Dietitian: Malnutrition Criteria Met Start: 01/03/25 16:33 Freq: Status: Active Protocol: Document 01/03/25 16:33 SB (Rec: 01/03/25 16:34 SB [id number]) Nutrition Malnutrition Evidence of Yes Malnutrition Exists Malnutrition (severe Acute Illness/Injury ): Evidenced By Suboptimal Energy Intake (Severe),Weight Loss (Severe), Physical Changes (Moderate) Clinical Problem Acute Disease or Injury Related Malnutrition Etiology severe related to inadequate oral intake and dysphagia Signs/Symptoms as evidenced by PO meeting <50% of estimated nutrition needs x 1 month, 15% unintentional weight loss x 1 month, and moderate wasting in clavicle and orbitals. Status Active Problem Swallowing Difficulty Etiology likely related to recent intubation Signs/Symptoms as evidenced by minced/moist texture with mildly thick liquids. Status Active Problem Recommendation Dietitian Adjust to liberal regular diet with potassium Recommendations/ restriction due to signs and symptoms of malnutrition Changes per BUSINESS DEVELOPER recommendations. Will order 120ml EPHP 4x daily with medpass. Will monitor weight trends. Lab / Micro Data 01/06/25 07:44 01/06/25 07:44 Labs: Laboratory Results - last 24 hr 01/05/25 11:20: POC Glucose 195 H 01/05/25 11:41: Sodium 132 L, Potassium 5.7 H, Chloride 101, Carbon Dioxide 20.2 L, Anion Gap 11, BUN 48 H, Creatinine 2.27 H, Estim Creat Clear Calc 23.85 L, Est GFR (MDRD) Non-Af 29 L, BUN/Creatinine Ratio 21.1 H, Glucose 205 H, Calcium 8.7 01/05/25 16:33: POC Glucose 315 H 01/05/25 18:50: Sodium 132 L, Potassium 5.4 H, Chloride 97 L, Carbon Dioxide 21.0, Anion Gap 14, BUN 47 H, Creatinine 2.25 H, Estim Creat Clear Calc 24.06 L, Est GFR (MDRD) Non-Af 29 L, BUN/Creatinine Ratio 21.1 H, Glucose 192 H, Calcium 8.8 01/05/25 21:30: POC Glucose 224 H 01/06/25 07:44: WBC 12.0 H, RBC 2.97 L, Hgb 9.0 L, Hct 26.6 L, MCV 89.6, MCH 30.3, MCHC 33.8, RDW Std Deviation 46.4 H, RDW Coeff of Disha 14.3, Plt Count 336, MPV 10.1, Sodium 130 L, Potassium 5.8 H, Chloride 95 L, Carbon Dioxide 22.4, Anion Gap 13, BUN 43 H, Creatinine 2.54 H, Estim Creat Clear Calc 21.31 L, Est GFR (MDRD) Non-Af 25 L, BUN/Creatinine Ratio 17.0, Glucose 247 H, Calcium 8.3 Rhythm Strip Rhythm Strip: Sinus Rhythm Rate: 98 Ectopy: None Physical Exam Const alert, oriented x3, no apparent distress and average body habitus Constitutional Narrative: Elderly male, mildly fatigued but energy improved from admission, chronically ill-appearing, otherwise sitting back comfortably in bed, answering questions appropriately, in no acute distress. General Appearance: cooperative and comfortable HEENT normocephalic, head/scalp atraumatic, hearing grossly normal bilaterally, nasal mucous membranes and turbinates normal and moist oral mucous membranes Eyes PERRL, EOMs intact bilaterally and conjunctivae normal Neck full ROM Chest inspection of chest normal Resp normal respiratory effort, normal air movement, no use of accessory muscles and clear to auscultation bilaterally Cardio regular rate, regular rhythm, no murmurs and peripheral pulses 2+ throughout GI GI Narrative: Colostomy bag in place with normal-appearing stool output. Mild diffuse tenderness to palpation but abdomen otherwise soft and nondistended. Stable. Back/Spine normal ROM Extremity normal to inspection, full ROM and no pedal edema Skin no rashes or lesions noted Psych mental status grossly normal Assessment & Plan Assessment/Plan (1) Acute hyperkalemia: PLAN: Plan Patient is a 79-year-old male who presented to [facility] ED on 01/03/2025 with acute hyperkalemia. 1. Acute hyperkalemia with non anion gap metabolic acidosis, improving ? Nephrology following. Potassium 7.4 on admit. EKG showed peaked T waves and apparent mild QRS widening. Treated medically in the ED with significant improvement to 6.2 on recheck. Potassium elissa of 5.4 on the evening of 01/04 but unfortunately has worsened again each morning. Initiated on sodium bicarb drip on 01/05 and patient has had improvement. Most recent BMP with potassium 5.8 and bicarb 22 on 01/06. Notably did have a bump in his creatinine with mildly low blood pressures so we will increase the bicarbonate drip rate from 100 to 150 mL/h today. Continue low potassium diet with no Ensure protein drinks. Has had good urine output, no acute indication for dialysis. Continue to monitor BMP daily. 2. Suspected small postoperative abscess in setting of recent bowel perforation s/p hemicolectomy with ostomy placement ? See Dr. Londono's note from 12/26 for further details. In short, patient presented on 12/02 here with abdominal pain and was found to have free air under the diaphragm. Was emergently transferred to [facility] And underwent ex lap with right hemicolectomy with bowel anastomosis. Did well from a bowel standpoint postoperatively. Since admission here has had mild diffuse abdominal pain but no other infectious symptoms and no change in colostomy output. However given his ongoing hyperkalemia and mild bowel pain, CT abdomen pelvis without contrast was obtained and showed concern for possible abscess at anastomosis site. CT abdomen pelvis with oral contrast on 01/04 showed a small right anterior upper quadrant fluid and gas collection without intraluminal contrast compatible with intra-abdominal abscess. Discussed case with general surgery here who recommended initiation of IV antibiotics and repeat CT scan in 2 to 3 days. No need for urgent transfer back to [facility] at this time. Started on IV Zosyn on 01/05. Patient feeling well, no change in symptoms at this time. Continue to monitor closely. 3. 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 Recently required 3 HD sessions at [facility] reportedly for significant uremia. Creatinine 2.2 on admission here with BUN 53. Potassium improved with medical treatment as noted above. Patient with adequate urine output at this point. No indications for dialysis and no need for nephrology consult at this time. 4. Recently diagnosed HFrEF with severe aortic stenosis ? See Dr. Londono's note from 12/26 for further details. Echo at [facility] Showed EF 30% and severe aortic stenosis. Recommendation was for TAVR evaluation once medically improved. Has been stable on Coreg 6.25 mg twice daily and isosorbide dinitrate 10 mg 3 times daily. Will continue these medications at this time. 5. Type 2 diabetes mellitus with diabetic neuropathy ? Hold home glimepiride and metformin. Continue treatment with sliding scale insulin with meals while inpatient, adjust as needed. Continue home gabapentin. 6. 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 Killian catheter placed during recent hospitalization and plan was for voiding trial in the TCU. Killian catheter removed on 01/05 and patient tolerating voiding trial well to this point. Continue to monitor bladder scans as needed. Continue home finasteride and tamsulosin. 7. Acute on chronic debility ? PT/OT/case management following. Patient presented here from the TCU and tentative plan is for discharge back to TCU once medically ready. DVT prophylaxis: Heparin subcu CODE STATUS: Full code, verified Expected disposition: Back to TCU, D Total clinical time spent by myself addressing the patient's medical issues, reviewing all the data, and collaborating with patient's care team: 35 minutes. Charges/Coding Visit Charges Inpatient E&M: 71305 Subs Hosp L2
[2025-01-06] MEDS: Ferrous Sulfate 325 MG Tablet PO (11:36)
[2025-01-06 11:56] LABS: Bedside Glucose 239 mg/dL (74-106)
[2025-01-06 11:56] LABS: Bedside Glucose 215 mg/dL (74-106)
[2025-01-06] MEDS: Sodium Bicarbonate 150 MEQ in Dextrose 5%-Water (1000mL Bag) 1,000 ML IV ×2 (12:59→20:33)
[2025-01-06] MEDS: 0.9% Saline Lock 10 ML Syringe IV ×2 (15:44→17:52)
[2025-01-06] MEDS: Lactated Ringers 1,000 ML 500 ML IV (15:44)
--- NOTE | 2025-01-06 16:48 | PCM.PN.REN ---
Subjective Subjective Following for hyperkalemia and CKD. Patient denies chest pain or shortness of breath. He complains of right hip pain. There is no nausea or vomiting. Objective Data Objective Data Vital Signs: Vital Signs Temp Pulse Resp BP Pulse Ox O2 Del Method 97.7 F L 107 H 17 104/74 97 Room Air 01/06/25 15:52 01/06/25 15:52 01/06/25 15:52 01/06/25 15:52 01/06/25 15:52 01/06/25 15:52 Oxygen Delivery Method Room Air Weight: 62.868 kg Body Mass Index (BMI) 22.4 Intake & Output: Intake and Output for Last 24 Hours 01/04/25 01/05/25 01/06/25 23:59 23:59 23:59 Intake Total 3550 / 3550 372.00 / 372.00 3278 / 3278 Output Total 2510 / 3010 1800 / 1800 520 / 520 Balance 1040 / 540 -1428.00 / -1428.00 2758 / 2758 Medical Nutrition Assessment Dietitian: Malnutrition Criteria Met Start: 01/03/25 16:33 Freq: Status: Active Protocol: Document 01/06/25 14:21 RMA (Rec: 01/06/25 14:21 RMA [id number]) Nutrition Malnutrition Evidence of Yes Malnutrition Exists Malnutrition (severe Acute Illness/Injury ): Evidenced By Suboptimal Energy Intake (Severe),Weight Loss (Severe), Physical Changes (Moderate) Clinical Problem Acute Disease or Injury Related Malnutrition Etiology Severe protein-calorie malnutrition in the context of acute on chronic disease related to inadequate oral/ energy intake and dysphagia Signs/Symptoms as evidenced by PO meeting <50% of estimated nutrition needs x 1 month, 15% unintentional weight loss x 1 month, and moderate wasting in clavicle and orbitals. Status Active Problem Swallowing Difficulty Etiology likely related to recent intubation Signs/Symptoms as evidenced by need for mechanically altered diet to minced/moist texture with mildly thickened liquids to nectar. Status Active Problem Recommendation Dietitian Will adjust therapeutic diet to 1800 calorie/consistent Recommendations/ carb; sodium-restricted; potassium-restricted with Changes consistency/texture as per SOOT BLOWER. Will d/c PO Nepro with medpass and add 120mL vanilla Nepro Carb Steady w/ meals as discussed with pt/family. Liberalize diet as needed depending on renal labs and blood glucose levels. Lab / Micro Data 01/06/25 07:44 01/06/25 07:44 Labs: Laboratory Results - last 24 hr 01/05/25 16:33: POC Glucose 315 H 01/05/25 18:50: Sodium 132 L, Potassium 5.4 H, Chloride 97 L, Carbon Dioxide 21.0, Anion Gap 14, BUN 47 H, Creatinine 2.25 H, Estim Creat Clear Calc 24.06 L, Est GFR (MDRD) Non-Af 29 L, BUN/Creatinine Ratio 21.1 H, Glucose 192 H, Calcium 8.8 01/05/25 21:30: POC Glucose 224 H 01/06/25 07:44: WBC 12.0 H, RBC 2.97 L, Hgb 9.0 L, Hct 26.6 L, MCV 89.6, MCH 30.3, MCHC 33.8, RDW Std Deviation 46.4 H, RDW Coeff of Disha 14.3, Plt Count 336, MPV 10.1, Sodium 130 L, Potassium 5.8 H, Chloride 95 L, Carbon Dioxide 22.4, Anion Gap 13, BUN 43 H, Creatinine 2.54 H, Estim Creat Clear Calc 21.31 L, Est GFR (MDRD) Non-Af 25 L, BUN/Creatinine Ratio 17.0, Glucose 247 H, Calcium 8.3 01/06/25 08:01: POC Glucose 239 H 01/06/25 11:35: POC Glucose 215 H Rhythm Strip Rhythm Strip: Sinus Rhythm Rate: 98 Ectopy: None Physical Exam Narrative Alert and oriented x 3, no apparent distress S1, S2, RRR Lungs sound clear Abdomen soft, nontender No edema Indwelling Killian with clear yellow urine in bag Assessment & Plan Assessment/Plan (1) Hyperkalemia: (2) CKD (chronic kidney disease), stage IV: PLAN: Plan Impression/Plan: This is a pleasant 79-year-old male with recent medical history significant for spine surgery then perforated bowel status post right hemicolectomy with partial colectomy of the transverse colon with wound VAC placement at [facility] from December 03 to December 26, patient was discharged then to TCU for rehab. Patient's past medical history also includes CKD, hypertension, BPH, heart failure reduced EF with a EF 30%, severe aortic stenosis, patient also developed HAMMAD when at [facility] requiring hemodialysis around 3 treatments. Fortunately by time of hospital discharge kidney function improved and patient no longer needed hemodialysis. For this admission nephrology consulted in view of hyperkalemia. Hyperkalemia in the setting of chronic kidney disease stage G4. Patient has baseline serum creatinine of around 2.20 to 2.40 mg/dL Hyperkalemia is likely due to CKD, metabolic acidosis and hyperglycemia. No recent CORWIN or ARB's. Patient states no recent potassium supplements at home. Ensure was discontinued, and patient was started on Nepro instead to limit potassium with nutritional supplementation. Potassium level continues to fluctuate. Peak potassium was 7.4, with hyperkalemia protocol and Kayexalate potassium improved to 5.4 on 01/04/2025. Potassium increased back to 6.1 on 01/05/2025, bicarb 16. Patient received sodium bicarb, D10 and insulin for hyperkalemia on 01/05/2025. He is also on dietary potassium restrictions. Continue patient on bicarb drip today. We shall try to keep glucose less than 200 mg/dL to limit hyperkalemia from hyperglycemia. Serum creatinine is a little higher than usual baseline, but not by much. Patient has good urine output. Therefore, there is no acute indication for kidney replacement therapy today. Further orders forthcoming as hospitalization evolves, thank you for allowing us to participate in the care of Mr. Peace. Hyponatremia. Serum sodium has been trending down over the last 48 hours. I suspect some component of hyponatremia is due to hyperglycemia. If serum sodium worsens, I will check urine sodium and osmolality. Will continue monitor serum sodium
[2025-01-06] MEDS: Acetaminophen 325 MG Tablet 650 MG PO (17:06)
[2025-01-06] MEDS: Carvedilol 6.25 MG Tablet PO (17:07)
[2025-01-06 17:27] LABS: Bedside Glucose 221 mg/dL (74-106)
[2025-01-06] MEDS: Tamsulosin HCl 0.4 MG Capsule PO (21:29)
[2025-01-06] MEDS: Gabapentin 300 MG Capsule PO (21:29)
--- NOTE | 2025-01-06 21:52 | PN.HOSP_ITS ---
Hospitalist Note Called by the floor due to relative hypotension. Has Isordil ordered to be given tonight. Will hold in light of blood pressures. Did receive carvedilol 6.25 earlier today. Could consider reducing the dose tomorrow but will leave for primary attending to adjust medications. Also having urinary retention with greater than 500 cc in his bladder with decreased urine output. Killian was removed yesterday with poor urine output since that point in time. The patient has had problems with this over time. Will replace Killian and recommend outpa tient follow-up with urology after discharge.
[2025-01-06 22:00] LABS: Bedside Glucose 197 mg/dL (74-106)
[2025-01-06 23:57] LABS: Red Blood Cells-Urine 0 SEEN /hpf (0-5); Squamous Epithelial Cells - UA 0 SEEN /hpf (0-5)
[2025-01-07] VITALS (9 sets, daily range): BP systolic 94–108; BP diastolic 52–61; PULSE 74–115; RESP 16–20; TEMP 36.4–36.9; O2SAT 96–100
[2025-01-07 00:19] LABS: Color, Urine Yellow (Yellow); Glucose, Dipstick Normal (Normal); Ketone-Dipstick Negative (Negative); Leukocyte Esterase-Dipstick 500 /ul (Negative); Nitrite-Dipstick Positive (Negative); Occult Blood-Urine 250 /ul (Negative); Protein-Dipstick 100 mg/dl (Negative); Urine Bilirubin Dipstick Negative (Negative); Urine Clarity Cloudy (Clear); Urine Urobilinogen Normal (Normal); Urine pH 6.5 (5.0 - 8.0)
[2025-01-07 01:08] LABS: Bacteria 3+ /hpf (None Seen); Mucous, Urine 2+ /hpf (<or=2+); White Blood Cells >100 SEEN /hpf (0-5)
[2025-01-07] MEDS: Sodium Bicarbonate 150 MEQ in Dextrose 5%-Water (1000mL Bag) 1,000 ML IV (03:47)
--- NOTE | 2025-01-07 04:02 | EKG12_ITS ---
Test Reason : CHEST TIGHTNESS Blood Pressure : */* mmHG Vent. Rate : 110 BPM Atrial Rate : 110 BPM P-R Int : 156 ms QRS Dur : 138 ms QT Int : 372 ms P-R-T Axes : 73 -41 116 degrees QTcB Int : 503 ms Sinus tachycardia Left axis deviation Left bundle branch block Abnormal ECG When compared with ECG of 07-Jan-2025 04:05, MANUAL COMPARISON REQUIRED DATA IS UNCONFIRMED Confirmed by DILIA SABA, MEHDI ([id number]), book or script editor MEREDITH ABDULLAHI ([id number] on 01/09/2025 8:27:34 AM Referred By: Confirmed By: MEHDI DOBBS MD
--- NOTE | 2025-01-07 04:05 | EKG12_ITS ---
Test Reason : CHEST DISCOMFORT Blood Pressure : */* mmHG Vent. Rate : 104 BPM Atrial Rate : 104 BPM P-R Int : 158 ms QRS Dur : 136 ms QT Int : 400 ms P-R-T Axes : 65 -42 107 degrees QTcB Int : 526 ms Sinus tachycardia Left axis deviation Left bundle branch block Abnormal ECG When compared with ECG of 03-Jan-2025 17:44, QT has lengthened Confirmed by DILIA SABA, MEHDI ([id number]), editor department MEREDITH ABDULLAHI ([id number]) on 01/09/2025 8:30:27 AM Referred By: Huan Confirmed By: MEHDI DOBBS MD
[2025-01-07 04:21] LABS: Bedside Glucose 216 mg/dL (74-106)
--- NOTE | 2025-01-07 04:35 | RAD_ITS ---
PROCEDURE: CHEST 1 VIEW (PORTABLE) 01/07/2025 REASON FOR EXAM: Shortness of breath. TECHNIQUE: Frontal view of the chest. COMPARISON: Chest x-ray from 01/03/2025. FINDINGS: Cardiac size and pulmonary vasculature are within normal limits. There are interstitial opacities bilaterally greater in the left lower lobe. There is mild blunting of the left costophrenic angle suggestive of a small left pleural effusion. No pneumothorax is present. Old left-sided rib fractures are present. RAD/Chest 1 View (Portable) IMPRESSION: 1. Interstitial opacities in the bilateral lungs which may relate to infiltrate s. 2. Mild blunting of the left costophrenic angle suggestive of asmall left pleur al effusion. Reading Location: [facility]
[2025-01-07 04:47] LABS: Hematocrit 21.1 % (40-54); Mean Corp Hgb Conc 33.2 g/dL (32-36); Mean Corpuscular Hgb 29.3 pg (27.0-32.0); Mean Corpuscular Volume 88.3 fL (80-94); Mean Platelet Vol. 10.1 fl (6.2-12.0); Platelet Count 274 K/mm3 (150-450); RBC Distribution Width CV 14.5 % (11.6-14.6); RBC Distribution Width SD 46.9 fl (35.1-43.9); Red Blood Count 2.39 M/mm3 (4.6-6.2); White Blood Count 6.1 K/mm3 (4.4-11.0)
[2025-01-07 05:19] LABS: Anion Gap 12 (5-15); BUN 39 mg/dL (4-19); BUN/Creat Ratio 13.8 RATIO (10-20); Calcium,Total 7.5 mg/dL (7.6-11.0); Carbon Dioxide 30.8 mmol/L (21.0-32.0); Chloride 88 mmol/L (98-108); Creatinine, Serum 2.85 mg/dL (0.70-1.20); EST Glomerular Filtration Rate 22 (>60); Glucose 217 mg/dL (70-99); Sodium Level 131 mmol/L (133-145)
[2025-01-07] MEDS: Piperacil/Tazobactam 3.375 GM in 0.9% Normal Saline (50mL MB+) 50 ML IV ×3 (06:14→21:52)
[2025-01-07] MEDS: Insulin Lispro 100 UNIT/ML INSULN.PEN SC ×3 (06:16→17:05)
[2025-01-07 06:37] LABS: Bedside Glucose 260 mg/dL (74-106)
--- NOTE | 2025-01-07 07:54 | CT_ITS ---
PROCEDURE: ABDOMEN/PEL W ORAL CONT ONLY 01/07/2025 REASON FOR EXAM: REPEAT EVAL FOR ABSCESS TECHNIQUE: ABDOMEN/PEL W ORAL CONT ONLY Noncontrast technique limits evaluation of the abdominal and pelvic viscera. Coronal and Sagittal reconstruction series were provided. One or more dose reduction techniques were used (e.g., Automated exposure control, adjustment of the mA and/or kV according to patient size, use of iterative reconstruction technique). ORAL CONTRAST TYPE: Gastrografin COMPARISON: CT abdomen pelvis 01/04/2025. FINDINGS: Since comparison examination, there is slight increased size of the thick rimmed fluid and gas collection subjacent to the surgical anastomosis within the right upper quadrant (series 2, image 83). Persistent stranding and edema within the central mesentery and right upper quadrant. Interval development of small bilateral pleural effusions with adjacent atelectasis. Otherwise stable examination. See recent CT abdomen pelvis for additional findings. CT/Abdomen/Pel W ORAL Cont Only IMPRESSION: 1. Slight increased size of the right upper quadrant intra-abdominal abscess. 2. Development of small bilateral pleural effusions. Reading Location: [id number]
[2025-01-07] MEDS: Furosemide 40 MG/4 ML Vial IV (09:38)
[2025-01-07] MEDS: 0.9% Saline Lock 10 ML Syringe IV (09:39)
--- NOTE | 2025-01-07 10:41 | PCM.PN.HOSP ---
Reason for Visit Reason for Visit: Diagnoses Hyperkalemia (01/03/25) Chronic kidney disease, stage 4 (severe) (01/03/25) Subjective Subjective Saw patient at bedside this morning. Patient appeared similar today to previous days. Was mildly fatigued appearing but otherwise sitting back comfortably in bed in no acute distress. Patient was found to have significant bladder retention with over 500 cc of urine in bladder earlier this morning so Killian catheter was replaced. He reports improvement in abdominal discomfort since then. Did have some fevers and chills yesterday morning but has not had any recurrence of this since then. No other new concerns this morning. Objective Data Objective Data Vital Signs: Vital Signs Temp Pulse Resp BP Pulse Ox O2 Del Method O2 Flow Rate 97.5 F L 110 H 18 96/56 L 100 Nasal Cannula 2 01/07/25 09:46 01/07/25 09:46 01/07/25 09:46 01/07/25 09:46 01/07/25 09:46 01/07/25 09:46 01/07/25 09:46 Oxygen Flow Rate (L/min) 2 Oxygen Delivery Method Nasal Cannula Weight: 62.868 kg Body Mass Index (BMI) 22.4 Intake & Output: Intake and Output for Last 24 Hours 01/05/25 01/06/25 01/07/25 23:59 23:59 23:59 Intake Total 372.00 / 372.00 5463 / 5513 42 / 2009.42 Output Total 1800 / 1800 520 / 1095 1175 / 1175 Balance -1428.00 / -1428.00 4943 / 4418 835.42 / 835.42 Medical Nutrition Assessment Dietitian: Malnutrition Criteria Met Start: 01/03/25 16:33 Freq: Status: Active Protocol: Document 01/06/25 14:21 RMA (Rec: 01/06/25 14:21 RMA [id number]) Nutrition Malnutrition Evidence of Yes Malnutrition Exists Malnutrition (severe Acute Illness/Injury ): Evidenced By Suboptimal Energy Intake (Severe),Weight Loss (Severe), Physical Changes (Moderate) Clinical Problem Acute Disease or Injury Related Malnutrition Etiology Severe protein-calorie malnutrition in the context of acute on chronic disease related to inadequate oral/ energy intake and dysphagia Signs/Symptoms as evidenced by PO meeting <50% of estimated nutrition needs x 1 month, 15% unintentional weight loss x 1 month, and moderate wasting in clavicle and orbitals. Status Active Problem Swallowing Difficulty Etiology likely related to recent intubation Signs/Symptoms as evidenced by need for mechanically altered diet to minced/moist texture with mildly thickened liquids to nectar. Status Active Problem Recommendation Dietitian Will adjust therapeutic diet to 1800 calorie/consistent Recommendations/ carb; sodium-restricted; potassium-restricted with Changes consistency/texture as per [employer]. Will d/c PO Nepro with medpass and add 120mL vanilla Nepro Carb Steady w/ meals as discussed with pt/family. Liberalize diet as needed depending on renal labs and blood glucose levels. Lab / Micro Data 01/07/25 11:55 01/07/25 11:55 Labs: Laboratory Results - last 24 hr 01/06/25 08:01: POC Glucose 239 H 01/06/25 11:35: POC Glucose 215 H 01/06/25 17:03: POC Glucose 221 H 01/06/25 21:28: POC Glucose 197 H 01/06/25 23:00: Urine Color Yellow, Urine Clarity Cloudy, Urine pH 6.5, Ur Specific Hardwick 1.010, Urine Protein 100 H, Urine Glucose (UA) Normal, Urine Ketones Negative, Urine Occult Blood 250 H, Urine Nitrite Positive H, Urine Bilirubin Negative, Urine Urobilinogen Normal, Ur Leukocyte Esterase 500 H, Urine RBC 0 SEEN, Urine WBC >100 SEEN, Ur Squamous Epith Cells 0 SEEN, Urine Bacteria 3+, Urine Mucus 2+ 01/07/25 03:58: POC Glucose 216 H 01/07/25 04:35: WBC 6.1, RBC 2.39 L, Hgb 7.0 L, Hct 21.1 L, MCV 88.3, MCH 29.3, MCHC 33.2, RDW Std Deviation 46.9 H, RDW Coeff of Disha 14.5, Plt Count 274, MPV 10.1, Sodium 131 L, Potassium 4.0, Chloride 88 L, Carbon Dioxide 30.8, Anion Gap 12, BUN 39 H, Creatinine 2.85 H, Estim Creat Clear Calc 19.00 L, Est GFR (MDRD) Non-Af 22 L, BUN/Creatinine Ratio 13.8, Glucose 217 H, Calcium 7.5 L 01/07/25 06:15: POC Glucose 260 H 01/07/25 08:20: Blood Type O POSITIVE, Antibody Screen NEGATIVE, Crossmatch See Detail Radiography Diagnostic Testing: Radiology Impression Chest X-Ray 01/07/25 04:35 IMPRESSION: 1. Interstitial opacities in the bilateral lungs which may relate to infiltrates. 2. Mild blunting of the left costophrenic angle suggestive of asmall left pleural effusion. [facility] 01/07/25 07:54 IMPRESSION: 1. Slight increased size of the right upper quadrant intra-abdominal abscess. 2. Development of small bilateral pleural effusions. Reading Location: [id number] Rhythm Strip Rhythm Strip: Sinus Rhythm Rate: 98 Ectopy: None Physical Exam Const alert, oriented x3, no apparent distress and average body habitus Constitutional Narrative: Elderly male, mildly fatigued but energy improved from admission, chronically ill-appearing, otherwise sitting back comfortably in bed, answering questions appropriately, in no acute distress. Stable. General Appearance: cooperative and comfortable HEENT normocephalic, head/scalp atraumatic, hearing grossly normal bilaterally, nasal mucous membranes and turbinates normal and moist oral mucous membranes Eyes PERRL, EOMs intact bilaterally and conjunctivae normal Neck full ROM Chest inspection of chest normal Resp normal respiratory effort, normal air movement, no use of accessory muscles and clear to auscultation bilaterally Cardio regular rate, regular rhythm, no murmurs and peripheral pulses 2+ throughout GI GI Narrative: Colostomy bag in place with normal-appearing stool output. Mild diffuse tenderness to palpation but abdomen otherwise soft and nondistended. Stable. Back/Spine normal ROM Extremity normal to inspection, full ROM and no pedal edema Skin no rashes or lesions noted Psych mental status grossly normal Assessment & Plan Assessment/Plan (1) Acute hyperkalemia: (2) Postoperative intra-abdominal abscess: PLAN: Plan Patient is a 79-year-old male who presented to [facility] ED on 01/03/2025 with acute hyperkalemia. 1. Acute hyperkalemia with non anion gap metabolic acidosis, improved ? Nephrology following. Potassium 7.4 on admit. EKG showed peaked T waves and apparent mild QRS widening. Treated medically in the ED with significant improvement to 6.2 on recheck. Potassium elissa of 5.4 on the evening of 01/04 but unfortunately has worsened again each morning. Initiated on sodium bicarb drip on 01/05 and patient had resolution of hyperkalemia and acidosis. Most recent BMP with potassium 4.0 and bicarb 30 on 01/07. Bicarb drip discontinued on 01/07. Continue low potassium diet with no Ensure protein drinks. Has had good urine output, no acute indication for dialysis. Continue to monitor BMP daily. 2. Postoperative abscess in setting of recent bowel perforation s/p hemicolectomy with ostomy placement ? See Dr. Londono's note from 12/26 for further details. In short, patient presented on 12/02 here with abdominal pain and was found to have free air under the diaphragm. Was emergently transferred to [facility] And underwent ex lap with right hemicolectomy with bowel anastomosis. Did well from a bowel standpoint postoperatively. Since admission here has had mild diffuse abdominal pain but no other infectious symptoms and no change in colostomy output. However given his ongoing hyperkalemia and mild bowel pain, CT abdomen pelvis without contrast was obtained and showed concern for possible abscess at anastomosis site. CT abdomen pelvis with oral contrast on 01/04 showed a small right anterior upper quadrant fluid and gas collection without intraluminal contrast compatible with intra-abdominal abscess. Discussed case with general surgery here who recommended initiation of IV antibiotics and repeat CT scan in 2 to [address] abdomen pelvis with oral contrast on 01/07 showed increased size of the right upper quadrant intra-abdominal abscess. Discussed with surgery who recommended transfer back to [place] for further management. Transfer initiated on 01/07. Continue IV Zosyn. 3. 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 Recently required 3 HD sessions at [facility] reportedly for significant uremia. Creatinine 2.2 on admission here with BUN 53. Potassium improved as noted above. Patient has had slight worsening of his creatinine over the past few days, most recent creatinine 2.88 on 01/07. Is volume overloaded on exam so per nephrology, will spot diuresis for now as needed. Continue to monitor daily BMP and urine output. 4. Chronic anemia ? Hemoglobin 8.6 on arrival to TCU here on 12/28. Had remained stable around 8-9 during hospitalization. Dropped to 7.0 on morning of 01/07 but suspect this was secondary to heavy IV fluid resuscitation; repeat hemoglobin 7.9 on recheck on morning of 01/07. No evidence of blood loss. Continue to monitor CBC daily. 5. Recently diagnosed HFrEF with severe aortic stenosis ? See Dr. Londono's note from 12/26 for further details. Echo at [facility] Showed EF 30% and severe aortic stenosis. Recommendation was for TAVR evaluation once medically improved. Has been stable on Coreg 6.25 mg twice daily and isosorbide dinitrate 10 mg 3 times daily. Will continue these medications at this time. 6. Type 2 diabetes mellitus with diabetic neuropathy ? Hold home glimepiride and metformin. Continue treatment with sliding scale insulin with meals while inpatient, adjust as needed. Continue home gabapentin. 7. 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 Killian catheter placed during recent hospitalization and plan was for voiding trial in the TCU. Killian catheter removed on 01/05 for voiding trial; unfortunately patient has significant urinary retention on multiple occasions so Killian catheter was replaced on 01/07. Continue home finasteride and tamsulosin. 8. Acute on chronic debility ? PT/OT/case management following. Patient presented here from the TCU and plan was for discharge back to TCU prior to need for transfer to [place] for further management. DVT prophylaxis: Heparin subcu CODE STATUS: Full code, verified Expected disposition: Transfer to [facility], [facility] Total clinical time spent by myself addressing the patient's medical issues, reviewing all the data, and collaborating with patient's care team: 50 minutes. Charges/Coding Visit Charges Inpatient E&M: 22843 Subs Hosp L3
[2025-01-07] MEDS: Finasteride 5 MG Tablet PO (11:13)
[2025-01-07] MEDS: Cholecalciferol (VIT D3) 25 MCG TABLET (1,000 UNITS) PO (11:13)
[2025-01-07] MEDS: Carvedilol 6.25 MG Tablet PO ×2 (11:14→17:06)
[2025-01-07] MEDS: 0.9% Normal Saline (250mL Bag) 250 ML 15 ML IV (11:30)
[2025-01-07] MEDS: Ferrous Sulfate 325 MG Tablet PO (11:50)
[2025-01-07 12:04] LABS: Hematocrit 23.1 % (40-54); Hemoglobin 7.9 g/dL (13.0-16.5); Mean Corp Hgb Conc 34.2 g/dL (32-36); Mean Corpuscular Hgb 30.4 pg (27.0-32.0); Mean Corpuscular Volume 88.8 fL (80-94); Mean Platelet Vol. 10.1 fl (6.2-12.0); Platelet Count 276 K/mm3 (150-450); RBC Distribution Width CV 14.4 % (11.6-14.6); RBC Distribution Width SD 46.6 fl (35.1-43.9); White Blood Count 5.8 K/mm3 (4.4-11.0)
[2025-01-07 12:13] LABS: Bedside Glucose 158 mg/dL (74-106)
[2025-01-07 12:26] LABS: Anion Gap 13 (5-15); BUN 38 mg/dL (4-19); BUN/Creat Ratio 13.3 RATIO (10-20); Calcium,Total 7.5 mg/dL (7.6-11.0); Carbon Dioxide 30.9 mmol/L (21.0-32.0); Chloride 86 mmol/L (98-108); Creatinine, Serum 2.88 mg/dL (0.70-1.20); EST Glomerular Filtration Rate 22 (>60); Glucose 166 mg/dL (70-99); Potassium 3.9 mmol/L (3.3-5.1); Sodium Level 130 mmol/L (133-145)
[2025-01-07] MEDS: Acetaminophen 325 MG Tablet 650 MG PO ×2 (14:20→23:33)
[2025-01-07 17:25] LABS: Bedside Glucose 184 mg/dL (74-106)
[2025-01-07] MEDS: Tamsulosin HCl 0.4 MG Capsule PO (21:51)
[2025-01-07] MEDS: Heparin Injection (Vial) 5,000 UNIT/ML VIAL 5000 UNIT SC (21:52)
[2025-01-07] MEDS: Gabapentin 300 MG Capsule PO (21:56)
--- NOTE | 2025-01-07 23:16 | NURSING ---
Patient was ordered to be transferred to [facility]. Transfer arrived at 2300, while ordered IV Zosyn was infusing over four hours. Verified with pharmacy for Zosyn to be infused over 30 minutes. Titrated and documented in the MAR.
[2025-01-07 23:57] LABS: Bedside Glucose 131 mg/dL (74-106)
--- NOTE | 2025-01-17 09:06 | PCM.DC ---
Discharge Instructions DC O2, CPAP, BIPAP needs Home O2 Discharge instructions: No Follow Up Care Test Results: Test results from this visit will be discussed in further detail at your follow-up appointment, if applicable. Discharge Plan Admission Admit Date/Time: 01/03/25 12:44 Primary Reason for Your Visit: abdominal pain Attending Provider: Jeremy Faith Primary Care Provider: Trinity Coronado Consulting Providers: Len Wilson Discharge Orders/Prescriptions Prescriptions: Continued aspirin 81 MG tablet 81 mg PO DAILY@0800 tamsulosin 0.4 MG capsule 0.4 mg PO QHS gabapentin 300 mg capsule 300 mg PO QHS carvedilol [Coreg] 6.25 mg tablet 6.25 mg PO BID Rx Instructions: must administer with a meal/food finasteride [Proscar] 5 mg tablet 5 mg PO DAILY isosorbide dinitrate [Isordil Titradose] 5 mg tablet 10 mg PO TID Rx Instructions: allow nitrate-free interval of 12-14 hrs per 24-hr period acetaminophen 325 mg capsule 650 mg PO Q4H PRN (Reason: fever or pain) ciprofloxacin HCl 500 mg tablet 500 mg PO DAILY Referrals / Follow Up: Trinity Coronado, MAINTENANCE WORK[employer] [Primary Care Provider] - Disposition Disposition (needs filled in before D/C Order can be placed): [facility]
--- NOTE | 2025-01-17 09:07 | PCM.DC.SUM ---
Providers Date of Admission: 01/03/25 Date of Discharge: 01/07/25 Primary Care Physician: DEANNA Franklin Consultations 01/05/25 07:37 Consult: Nephrology Routine Consulting Provider: Len Wilson Reason for Consult: persistent hyperkalemia EMERGENT Consult: No MD Notified: Yes Date Notified: 01/05/25 Time Notified: 08:00 Method of Notification: Answering Service Reason For Visit: ACUTE HYPERKALEMIA Diagnosis Discharge Diagnosis (1) Acute hyperkalemia: Status: Inactive Code(s): E87.5 - Hyperkalemia (2) Postoperative intra-abdominal abscess: Status: Deleted Code(s): T81.43XA - Infection following a procedure, organ and space surgical site, initial encounter; K65.1 - Peritoneal abscess Medications at Discharge Home Medications aspirin 81 mg tablet,delayed release 81 mg PO DAILY@0800 heart health 04/16/17 tamsulosin 0.4 mg capsule 0.4 mg PO QHS bph 04/16/17 gabapentin 300 mg capsule 300 mg PO QHS PAIN 10/31/24 acetaminophen 325 mg capsule 650 mg PO Q4H PRN fever or pain 01/11/25 carvedilol 6.25 mg tablet (Coreg) 6.25 mg PO BID blood pressure 01/11/25 ciprofloxacin HCl 500 mg tablet 500 mg PO DAILY ATB 01/11/25 finasteride 5 mg tablet (Proscar) 5 mg PO DAILY bph 01/11/25 isosorbide dinitrate 5 mg tablet (Isordil Titradose) 10 mg PO TID bp 01/11/25 Hospital Course Operations None Procedures EKG and - (CT abdomen pelvis x 3, chest x-ray x 2) Summary of Care Provided Minutes Spent on Discharge: 35 Hospital Course: Patient is a 79-year-old male who presented to [facility] ED on 01/03/2025 with acute hyperkalemia. Hospital course as noted below. Patient transferred to [facility] For further management on 01/07. 1. Acute hyperkalemia with non anion gap metabolic acidosis, improved ? Nephrology followed. Potassium 7.4 on admit. EKG showed peaked T waves and apparent mild QRS widening. Treated medically in the ED with significant improvement to 6.2 on recheck. Potassium elissa of 5.4 on the evening of 01/04 but unfortunately has worsened again each morning. Initiated on sodium bicarb drip on 01/05 and patient had resolution of hyperkalemia and acidosis. Most recent BMP with potassium 4.0 and bicarb 30 on 01/07. Bicarb drip discontinued on 01/07. Continue low potassium diet with no Ensure protein drinks. Had good urine output, no acute indication for dialysis. Continue to monitor BMP daily. 2. Postoperative abscess in setting of recent bowel perforation s/p hemicolectomy with ostomy placement ? See Dr. Londono's note from 12/26 for further details. In short, patient presented on 12/02 here with abdominal pain and was found to have free air under the diaphragm. Was emergently transferred to [facility] And underwent ex lap with right hemicolectomy with bowel anastomosis. Did well from a bowel standpoint postoperatively. Since admission here has had mild diffuse abdominal pain but no other infectious symptoms and no change in colostomy output. However given his ongoing hyperkalemia and mild bowel pain, CT abdomen pelvis without contrast was obtained and showed concern for possible abscess at anastomosis site. CT abdomen pelvis with oral contrast on 01/04 showed a small right anterior upper quadrant fluid and gas collection without intraluminal contrast compatible with intra-abdominal abscess. Discussed case with general surgery here who recommended initiation of IV antibiotics and repeat CT scan in 2 to [address] abdomen pelvis with oral contrast on 01/07 showed increased size of the right upper quadrant intra-abdominal abscess. Discussed with surgery who recommended transfer back to [place] for further management. Continue IV Zosyn. Transferred to [facility] For further management on 01/07. 3. 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 Recently required 3 HD sessions at [facility] reportedly for significant uremia. Creatinine 2.2 on admission here with BUN 53. Potassium improved as noted above. Patient has had slight worsening of his creatinine over the past few days, most recent creatinine 2.88 on 01/07. Is volume overloaded on exam so per nephrology, spot diuresis for now as needed. Continue to monitor daily BMP and urine output. 4. Chronic anemia ? Hemoglobin 8.6 on arrival to TCU here on 12/28. Had remained stable around 8-9 during hospitalization. Dropped to 7.0 on morning of 01/07 but suspect this was secondary to heavy IV fluid resuscitation; repeat hemoglobin 7.9 on recheck on morning of 01/07. No evidence of blood loss. Continue to monitor CBC daily. 5. Recently diagnosed HFrEF with severe aortic stenosis ? See Dr. Londono's note from 12/26 for further details. Echo at [facility] Showed EF 30% and severe aortic stenosis. Recommendation was for TAVR evaluation once medically improved. Has been stable on Coreg 6.25 mg twice daily and isosorbide dinitrate 10 mg 3 times daily. Will continue these medications at this time. 6. Type 2 diabetes mellitus with diabetic neuropathy ? Hold home glimepiride and metformin. Continue treatment with sliding scale insulin with meals while inpatient, adjust as needed. Continue home gabapentin. 7. 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 Killian catheter placed during recent hospitalization and plan was for voiding trial in the TCU. Killian catheter removed on 01/05 for voiding trial; unfortunately patient has significant urinary retention on multiple occasions so Killian catheter was replaced on 01/07. Continue home finasteride and tamsulosin. 8. Acute on chronic debility ? PT/OT/case management following. Patient presented here from the TCU and plan was for discharge back to TCU prior to need for transfer to [place] for further management. Total clinical time spent by myself addressing the patient's medical issues, reviewing all the data, and collaborating with patient's care team: 35 minutes. Physical Exam Const alert, oriented x3, no apparent distress and average body habitus Constitutional Narrative: Elderly male, mildly fatigued but energy improved from admission, chronically ill-appearing, otherwise sitting back comfortably in bed, answering questions appropriately, in no acute distress. Stable. General Appearance: cooperative and comfortable HEENT normocephalic, head/scalp atraumatic, hearing grossly normal bilaterally, nasal mucous membranes and turbinates normal and moist oral mucous membranes Eyes PERRL, EOMs intact bilaterally and conjunctivae normal Neck full ROM Chest inspection of chest normal Resp normal respiratory effort, normal air movement, no use of accessory muscles and clear to auscultation bilaterally Cardio regular rate, regular rhythm, no murmurs and peripheral pulses 2+ throughout GI GI Narrative: Colostomy bag in place with normal-appearing stool output. Mild diffuse tenderness to palpation but abdomen otherwise soft and nondistended. Stable. Back/Spine normal ROM Extremity normal to inspection, full ROM and no pedal edema Skin no rashes or lesions noted Psych mental status grossly normal Weight / BMI Weight Weight: 62.868 kg Body Mass Index (BMI) 22.4 ABG / Lab / Microbiology Data 01/07/25 11:55 01/07/25 11:55 Microbiology: Microbiology 01/06/25 23:00 Urine Catheter - Killian Urine Culture - Final Enterobacter cloacae complex D/C Instructions DC O2, CPAP, BIPAP Needs Home O2 Discharge instructions: No Meaningful Use Info Meaningful Use Meaningful Use Diagnoses (Choose all that apply): None applicable Ischemic Stroke Statin Dosing Therapy Reference: STATIN DOSE THERAPY REFERENCE: * Patients > 75 years receive moderate or high dose statin therapy. * Patients 75 years or YOUNGER should receive HIGH intensity statin dose unless contraindicated. You will be required to document reason for non-treatment if statin daily dose does not meet guidelines. HIGH DOSE STATIN THERAPY DAILY Atorvastatin > than or = to 40 mg Rosuvastatin > than or = to 20 mg Amlodipine + Atorvastatin > than or = to 2.5/40 mg Ezetimibe + Simvastatin 10/80 mg Simvastatin 80mg Discharge Plan Admission Admit Date/Time: 01/03/25 12:44 Primary Reason for Your Visit: abdominal pain Attending Provider: Jeremy Faith Primary Care Provider: [facility] Consulting Providers: Len Wilson Discharge Orders/Prescriptions Prescriptions: Continued aspirin 81 MG tablet 81 mg PO DAILY@0800 tamsulosin 0.4 MG capsule 0.4 mg PO QHS gabapentin 300 mg capsule 300 mg PO QHS carvedilol [Coreg] 6.25 mg tablet 6.25 mg PO BID Rx Instructions: must administer with a meal/food finasteride [Proscar] 5 mg tablet 5 mg PO DAILY isosorbide dinitrate [Isordil Titradose] 5 mg tablet 10 mg PO TID Rx Instructions: allow nitrate-free interval of 12-14 hrs per 24-hr period acetaminophen 325 mg capsule 650 mg PO Q4H PRN (Reason: fever or pain) ciprofloxacin HCl 500 mg tablet 500 mg PO DAILY Referrals / Follow Up: Trinity Coronado, RACHELE-C [Primary Care Provider] - Disposition Disposition (needs filled in before D/C Order can be placed): Acute Care Hospital Charges/Coding Visit Charges Inpatient E&M: 32768 Disch Hosp >30min
== END 2025-01-07 23:40 | disposition short-term general hospital (02) | DRG 640 ==
LOC: ED 13:50 → MS2 13:55 → PCU 01-06 12:43
PROVIDERS: Internal Medicine; Admitting Provider Hospitalist; Emergency Provider Emergency Medicine; PCP Nurse Practitioner Family; Visit Provider Hospitalist
DX: E87.5 Hyperkalemia (principal); E43 Unspecified severe protein-calorie malnutrition; K65.1 Peritoneal abscess; I13.0 Hypertensive heart and chronic kidney disease with heart failure and stage 1 through stage 4 chronic kidney disease, or unspecified chronic kidney disease; N18.4 Chronic kidney disease, stage 4 (severe); T81.43XA Infection following a procedure, organ and space surgical site, initial encounter; I50.22 Chronic systolic (congestive) heart failure; N13.8 Other obstructive and reflux uropathy; E87.21 Acute metabolic acidosis; E11.22 Type 2 diabetes mellitus with diabetic chronic kidney disease; E87.1 Hypo-osmolality and hyponatremia; B96.89 Other specified bacterial agents as the cause of diseases classified elsewhere; D64.9 Anemia, unspecified; I35.0 Nonrheumatic aortic (valve) stenosis; Z93.3 Colostomy status; E11.40 Type 2 diabetes mellitus with diabetic neuropathy, unspecified; E78.5 Hyperlipidemia, unspecified; I95.9 Hypotension, unspecified; N40.1 Benign prostatic hyperplasia with lower urinary tract symptoms; X58.XXXA Exposure to other specified factors, initial encounter; R33.8 Other retention of urine; R09.02 Hypoxemia; Z90.49 Acquired absence of other specified parts of digestive tract; Z95.2 Presence of prosthetic heart valve; Z68.22 Body mass index [BMI] 22.0-22.9, adult; Z79.82 Long term (current) use of aspirin; Z79.84 Long term (current) use of oral hypoglycemic drugs; Z79.899 Other long term (current) drug therapy; Z87.891 Personal history of nicotine dependence
CPT/HCPCS: 36415; 71045; 74176; 80048; 81001; 82962; 83605; 84132; 85027; 86850; 86900; 86901; 87077; 87086; 87088; 87186; 92526; 92610; 93005; 94640; 94668; 97162; 97166; 97530; 97535; 97802; 97803; 99284; A4216; J0612; J1938

== ENCOUNTER 2025-01-11 14:25 | Inpatient (IN) | payer MEDICARE, OTHER, SELFPAY ==
[2025-01-11 15:44] VITALS: BP 158/66; PULSE 64; RESP 16; TEMP 36.8; O2SAT 100; BMI 24.7
--- NOTE | 2025-01-11 16:42 | HP.PCM_ITS ---
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 Colon. He was discharged home on 11/29/2024. He returned to the emergency room on 12/01/2024 complaining of abdominal pain and distention associated with nausea and vomiting. He had not had a bowel movement since prior to the surgery. CT scan of the abdomen and pelvis showed mild acute sigmoid diverticulitis with scattered foci of free air thought to be secondary to microperforations. There was a diffusely dilated ascending, transverse and proximal descending colon with pneumatosis. Dr. Smith from general surgery was consulted. Dr. Smith recommended transfer to a tertiary care facility and he was transferred to [facility]. He was admitted to the surgical intensive care unit and started on Zosyn. Shortly after admission the abdominal pain and distention worsened and he was tachycardic. He was taken emergently to the OR for an exploratory laparotomy and underwent right hemicolectomy and partial colectomy of the proximal transverse colon with placement of a wound vac. On 12/03 the troponin was up trending and cardiology was consulted. He was diagnosed with NSTEMI (felt to be type II due to demand ischemia). Echocardiogram was obtained that showed an EF of 36% with hypokinesia and multiple wall motion abnormalities. He had moderate to severe aortic stenosis. The EF was estimated at 35%. There was mild LAE and the PA systolic was estimated at 44 which is consistent with mild pulmonary HTN. On 12/04/2024 he returned to the OR for a second look exploratory laparotomy with creation of a mucus fistula and end ileostomy. On 12/05/2024 he had an emesis and likely aspirated. An NG tube was placed. On 12/06/2024 he was intubated for worsening tachypnea/respiratory distress. He was extubated on 12/08/2024 and transferred to a regular nursing floor on 12/09/2024. On 12/10/2024 white blood cell count was elevated and CT scan of the abdomen/pelvis showed a moderate volume of free fluid in the Left upper quadrant. On 12/12/2024 interventional radiology placed a drain for left upper quadrant free fluid. On 12/13/2024 he had respiratory distress secondary to fluid overload and was transferred back to the intensive care unit. Nephrology was consulted for acute on chronic kidney failure. He was aggressively diuresed. He was seen by speech therapy who recommended n.p.o. and tube feed was started. On 12/17/2024 he was transferred back to a regular nursing floor. On 12/19/2024 he had flexible laryngoscopy which showed intact vocal cord motion and oral/pharyngeal dysphagia. On 12/20/2024 he was lethargic and nephrology recommended dialysis secondary to an elevated BUN. A temporary non-tunneled dialysis catheter was placed in the right internal jugular and he underwent dialysis. On 12/24/2024 he failed a voiding trial and a Killian catheter was inserted. Urology was consulted and recommended Flomax and Proscar and a repeat voiding trial in 1 week. The left upper quadrant drain was removed on 12/25/2024. On 12/26/2024 kidney function was stable and the temporary dialysis catheter was removed. He was admitted to the transitional care unit at [facility] on 12/26/2024 for rehabilitation. On 01/03/2025 he had hyperkalemia and received Kayexalate. Potassium further increased at 7.4 and he was sent to the emergency department. He was treated with an albuterol aerosol, saline, insulin, Kayexalate, calcium gluconate and a bicarbonate. He had not been on a potassium restricted diet while on [facility] Did not have a bed so he was admitted to [facility] PCU to the hospitalist service. Following treatment for hyperkalemia in the emergency department the recheck potassium was 5.9. The following morning on 01/04/2025 it was once again up to 6.6. Hyperkalemia was once again aggressively treated. A CT scan of the abdomen and pelvis without oral or IV contrast was obtained on 01/03/2025. It showed a possible small abscess at the operative site and a repeat examination with oral contrast was recommended. CT of the abdomen and pelvis with IV contrast was done on 01/04/2025 and showed right anterior upper quadrant fluid and gas collection without intraluminal contrast material compatible with an intra-abdominal abscess. The hospitalist conferred with the general surgeon who felt that the area was small and he recommended IV antibiotics with a repeat CT scan in 2 to 3 days. Nephrology was consulted on 01/05/2025 for persistently elevated potassium. He was started on a bicarb drip. Ensure was discontinued and he was started on Nepro 4 times daily. There was no indication for INVESTOR at that time. He maintained good urine output. He had a repeat CT scan of the abdomen/pelvis on 01/07 which showed increased size of the right upper quadrant intra-abdominal abscess. General surgery recommended transfer back to [facility] for treatment. He was transferred to [facility] on 01/08. IR placed a drain in the RUQ and then aspirated 3 cc of exudate. On 01/10/25 the culture of the abscess drainage was not growing anything ( he had been on Zosyn). Zosyn was continued and on the day he was transferred to the acute inpt rehab unit at [facility] he was transitioned to Cipro. Surgery recommended a abscessogram as OP. He was transferred to the acute inpt rehab unit at [facility] on 01/11/25 for 3 hours of therapy daily to restore function/independence at or near his level prior to prolonged hospitalization with multiple complications starting 12/02/24. He needs follow up with cardiology for severe and consideration for TAVR. His last ECHO at [facility] was in 2020 and at that time he had a normal EF with no wall motion abnormalities and mild . Has never had a cardiac cath and denies having any stress tests. Did not know he had an CO at [facility] and that he now has a CM. Risk factors for CAD include DM, HTN, HLD, former tobacco use, + FH of CAD, male sex and age. He has hx of BL carotid stenosis and has had a CEA on the R in the past. At some point in the future he should have an evaluation for CAD. He is asymptomatic at this time. [facility], [facility] Medical History (Updated 01/12/25 @ 14:[address] Marie Patino DO) Diverticulosis Acute renal failure superimposed on stage 4 chronic kidney disease Diabetic polyneuropathy Iron deficiency anemia Irregular heart beat CKD (chronic kidney disease), stage IV Wears glasses Wears dentures BPH (benign prostatic hyperplasia) History of diverticulitis Former smoker Leg cramps History of echocardiogram Hypertrophic scar Carotid stenosis, left Sebaceous cyst Amaurosis fugax of right eye Sciatica Hyperlipidemia Osteoarthritis Hemorrhoid GERD (gastroesophageal reflux disease) HTN (hypertension) Home Medications ?Medication ?Instructions ?Recorded ?Last Taken ?Type aspirin 81 mg tablet,delayed 81 mg PO DAILY@0800 heart health 04/16/17 11/26/24 09:00 History release tamsulosin 0.4 mg capsule 0.4 mg PO QHS bph 04/16/17 0 01/10/25 History gabapentin 300 mg capsule 300 mg PO QHS PAIN 10/31/24 11/25/24 22:30 History acetaminophen 325 mg capsule 650 mg PO Q4H PRN fever o r pain 01/11/25 Unknown History carvedilol 6.25 mg tablet (Coreg) 6.25 mg PO BID blood pressure 01/11/25 01/11/25 History ciprofloxacin HCl 500 mg tablet 500 mg PO DAILY ATB 01/11/25 History finasteride 5 mg tablet (Proscar) 5 mg PO DAILY bph 01/11/25 History isosorbide dinitrate 5 mg tablet 10 mg PO TID bp 01/1101/11/25 History (Isordil Titradose) Allergy/AdvReac Type Severity Reaction Status Date / Time atorvastatin (From Lipitor) Allergy INTOLERANCE Verified 12/26/24 20:42 ezetimibe (From Zetia) Allergy MYALGIA Verified 12/26/24 20:42 pravastatin Allergy MYALGIAS Verified 12/26/24 20:42 simvastatin (From Zocor) Allergy INTOLERANCE Verified 12/26/24 20:42 sitagliptin (From Januvia) Allergy INTOLERANCE Verified 12/26/24 20:42 tetanus and diphtheria Allergy Rash Verified 12/01/24 22:00 toxoids Btyzluc-CLZ-ZvQ Reductase AdvReac Other Verified 12/01/24 22:00 Inhibitor (Sqkwzod-Hor-Yso Reductase Inhibitor) Family History Father Diabetes Heart disease Myocardial infarction Mother CAD (coronary artery disease) Arthritis Surgical History (Updated 01/12/25 @ 14:[address] Marie Patino DO) H/O drainage of abscess History of partial colectomy History of lumbar fusion History of ileostomy History of right hemicolectomy History of right-sided carotid endarterectomy (~11/2017) History of umbilical hernia S/P ventral herniorrhaphy S/P inguinal hernia repair S/P colonoscopy Social History household members: spouse Smoking Status: Former smoker alcohol intake: never substance use type: does not use ROS Review of Systems ROS Unobtainable: other Details: Family has noticed some decline in memory since all this started in November. No problems with word finding. ; Denies due to encephalopathy, due to endotracheal tube, due to mental condition or due to mental status Constitutional Constitutional: Reports change in weight, difficulty sleeping, fatigue, weakness and weight loss; Denies anorexia, chills, fever(s) or night sweats Eyes Eyes: Denies blurry vision, change in vision, double vision, eye pain, loss of vision, photophobia or ptosis ENT HEENT: Reports other Details: has partial plates in the upper jaw ; Denies abnormal hearing, dysphagia, headache(s), hearing loss, nasal congestion or sore throat Cardiovascular Cardiovascular: Reports dizziness, dyspnea on exertion, orthostatic symptoms and weakness in extremities; Denies chest pain, edema, lightheadedness, orthopnea, palpitations, paroxysmal nocturnal dyspnea, pedal edema, racing heartbeat or syncope Respiratory/Chest Respiratory/Chest: Reports shortness of breath with exertion; Denies cough, dyspnea, shortness of breath at rest or wheezing Gastrointestinal Gastrointestinal: Reports abdominal pain and other Details: Has an ileostomy ; Denies constipation, diarrhea, dyspepsia, hematemesis, hematochezia, nausea, odynophagia or vomiting Genitourinary Genitourinary: Reports difficulty urinating and other Details: Killian catheter is present and urine is pale yellow and clear. ; Denies dysuria, hematuria, nocturia, scrotal pain, urinary frequency, urinary hesitancy, urinary incontinence or urinary urgency Musculoskeletal Musculoskeletal: Reports other Details: He is c/o R ankle pain........having his sock on makes it hurt worse. Denies hx of gout but, he has stage IV CRF and has been on a lot of diuretics over the past month. ; Denies back pain, joint pain, joint swelling, neck pain or radiating pain into limb Neurologic Neurologic: Reports dizziness, weakness and other Details: generalized weakness. He has oropharyngeal dysphagia. ; Denies abnormal movements, abnormal speech, behavior changes, confusion, disequilibrium, focal weakness, headache(s), memory loss, other visual disturbances, paresthesias, radicular pain, restless legs, seizures, tremor(s) or vertigo Psychiatric Psychiatric: Denies anxiety, depression, homicidal ideation, hopelessness, suicidal ideation or visual hallucinations Endocrine Endocrinology: Denies change in body appearance, polydipsia or polyuria Hematologic/Lymphatic Hematologic/Lymphatic: Denies easy bleeding, easy bruising or lymphadenopathy Allergic/Immunologic Allergic/Immunologic: Denies rhinitis, eczemia or asthma Vital Signs Vital Signs Vital Signs: 01/11/25 15:44 01/11/25 16:04 Temperature 98.2 F Temperature Source Temporal Pulse Rate 64 Respiratory Rate 16 Respiratory Effort Normal Non-Labored Respiratory Depth Normal Respiratory Pattern Normal Blood Pressure 158/66 H Blood Pressure Mean 96 Blood Pressure Source Monitor Blood Pressure Position Semi-Fowlers Blood Pressure Location Right Arm Pulse Ox 100 Oxygen Delivery Method Room Air Room Air Weight Weight: 148 lb 9.465 oz Body Mass Index (BMI) 24.7 Physical Exam Const alert, oriented x3 and no apparent distress Constitutional Narrative: Making good eye contact, appropriate. Pleasant with flat affect. Looks tired. Tells me that he is not sleeping well at night.......can not stay asleep. General Appearance: cooperative and comfortable Nutritional Appearance: thin HEENT HEENT Narrative: Dry MM with no evidence of thrush. Head and Scalp: normal to inspection Eyes PERRL, EOMs intact bilaterally, conjunctivae normal and no scleral icterus Eyes Narrative: No discharge from the eyes and no mattering of the eyelashes. No visual field cuts. No nystagmus. Neck no lymphadenopathy, supple, no JVD and No nodes Neck Narrative: BL carotid bruits vs radiation of the MM. General: trachea midline Chest Chest: symmetrical chest wall rise Resp normal respiratory effort and no use of accessory muscles Resp Narrative: Not tachypneic and no conversational dyspnea. Coarse crackles in both bases posteriorly. No wheezing. No coughing with deep breath. Effort and Inspection: able to speak in complete sentences Cardio regular rate, regular rhythm, S1 normal heart sound, S2 normal heart sound, no rub and no gallops Cardio Narrative: No ectopy. Loud holosystolic MM at the second RICS with radiation to the LVOT, LLSB, apex and into both carotids. Soft systolic MM in the Left axillary area. GI GI Narrative: No guarding with palpation. Mild tenderness in the area of the drain. BS's present in all quadrants. ND, soft. Stoma looks good and there is stool in the pouch. no CVA tenderness Narrative: No suprapubic tenderness. Urine in the Killian is pale yellow and clear. No hematuria. Bladder / Kidney Exam: catheter in place Back/Spine no CVA tenderness Back/Spine Narrative: Denies any radicular pain in the legs. Extremity no clubbing, cyanosis or edema and no calf tenderness Extremity Narrative: He has pain in the R ankle........with light touch but, there is no erythema and no openings in the skin and no marked increase in warmth to touch. General Extremity: Negative for carpodedal spasm or mottling Skin Skin Narrative: No rashes, no skin breakdown. Neuro oriented x3, CN's II-XII intact bilaterally and no focal motor deficits Neuro Narrative: Generalized weakness and he fatigues easily. Psych Psych Narrative: Appropriate, making good eye contact. Able to stay on topic and focus. No flight of ideas. Does not appear anxious. Affect is flat. Conversant and relating well to staff. Having trouble sleeping at night and his appetite is poor. Appearance: appropriate and well kempt Attitude: calm and engaged Activity / Motor Behavior: appropriate eye contact Speech: normal speech Results Lab / Micro Data 01/12/25 04:52 01/12/25 04:52 Assessment & Plan Assessment/Plan (1) Debility: (2) History of right hemicolectomy: (3) History of ileostomy: (4) History of partial colectomy: (5) Postoperative abscess: (6) H/O drainage of abscess: (7) Acute renal failure superimposed on stage 4 chronic kidney disease: QUALIFIERS: Acute renal failure type: unspecified Qualified Code(s): N17.9 - Acute kidney failure, unspecified; N18.4 - Chronic kidney disease, stage 4 (severe) (8) CKD (chronic kidney disease), stage IV: (9) Orthostatic hypotension: (10) Anemia: QUALIFIERS: Anemia type: unspecified type Qualified Code(s): D 64.9 - Anemia, unspecified PLAN: Due to CRF stage IV, acute blood loss anemia, infection, frequent lab draws hx of iron deficiency, etc (11) Dysphagia, oropharyngeal: (12) Cognitive dysfunction: (13) Other severe protein-calorie malnutrition: (14) Hyponatremia: (15) Hypomagnesemia: (16) Myocardial infarction due to demand ischemia: PLAN: Multiple wall motion abnormalities.......has never seen a dairy husbandman and has multiple RF's for CAD and has had BL carotid stenosis. Needs at some point to be evaluated for CAD. (17) Cardiomyopathy: QUALIFIERS: Cardiomyopathy type: unspecified Qualified Code(s): I 42.9 - Cardiomyopathy, unspecified PLAN: EF is 35% +/- 5% (18) Severe aortic stenosis: (19) Left atrial enlargement: (20) Mild pulmonary hypertension: PLAN: PA systolic estimated at 44. (21) History of lumbar fusion: (22) Urinary retention: (23) BPH (benign prostatic hyperplasia): QUALIFIERS: Lower urinary tract symptom presence: symptoms present Lower urinary tract symptom detail: urinary retention Qualified Code(s): N40.1 - Benign prostatic hyperplasia with lower urinary tract symptoms; R33.8 - Other retention of urine (24) Essential (primary) hypertension: (25) History of diabetes mellitus: (26) History of right-sided carotid endarterectomy: (27) Carotid stenosis, left: (28) Status post lumbar spinal fusion: (29) Diverticulosis: (30) Hyperlipidemia: QUALIFIERS: Hyperlipidemia type: unspecified Qualified Code(s): E 78.5 - Hyperlipidemia, unspecified (31) Depression: QUALIFIERS: Depression Type: reactive depression Qualified Code(s): F32.9 - Major depressive disorder, single episode, unspecified (32) Acute right ankle pain: PLAN: Suspect gout PLAN: Plan PLAN PT for gait stability OT for ADL's ST for evaluation Analgesics as needed Bowel protocol Fall precautions Assess for Anxiety/Depression GI prophylaxis -not needed at this time DVT prophylaxis with heparin 5000 units SQ every 12 hours Follow up with general surgery, cardiology, PCP, Dr. Colon following DC from IP Rehab AM lab including CMP, CBC, Mag, uric acid and Phos ordered Accu-Cheks AC and at bedtime Obtain results of echocardiogram done at [facility] and also the cardiology consult/notes 75 minutes spent reviewing past diagnostic tests, lab results, vital sign trends, medical history, medications, all additional paperwork sent by the previous hospital, and ordering medications, examining the the patient and completing documentation. Charges/Coding Visit Charges Inpatient E&M: 43078 Init Hosp L3
[2025-01-11] MEDS: Isosorbide DN 10 MG Tablet PO (17:20)
[2025-01-11 18:00] VITALS: BP 158/66; PULSE 64; RESP 16; TEMP 36.8; O2SAT 100
[2025-01-11] MEDS: Heparin Injection (Vial) 5,000 UNIT/ML VIAL 5000 UNIT SC (21:50)
[2025-01-12] VITALS (9 sets, daily range): BP systolic 129–160; BP diastolic 49–75; PULSE 67–97; RESP 16; TEMP 36.3–36.7; O2SAT 96–100
[2025-01-12 05:16] LABS: Hematocrit 23.0 % (40-54); Hemoglobin 7.7 g/dL (13.0-16.5); Immature Granulocytes Count 0.050 X10^3/uL (0.0-0.0); Mean Corp Hgb Conc 33.5 g/dL (32-36); Mean Corpuscular Volume 89.5 fL (80-94); Mean Platelet Vol. 10.3 fl (6.2-12.0); NRBC Flagged by Analyzer 0 % (0-5); Platelet Count 323 K/mm3 (150-450); RBC Distribution Width CV 13.9 % (11.6-14.6); RBC Distribution Width SD 45.1 fl (35.1-43.9); Red Blood Count 2.57 M/mm3 (4.6-6.2); White Blood Count 7.7 K/mm3 (4.4-11.0)
[2025-01-12] MEDS: Heparin Injection (Vial) 5,000 UNIT/ML VIAL 5000 UNIT SC ×2 (05:31→22:27)
[2025-01-12 06:00] LABS: Magnesium 1.6 mg/dL (1.5-2.2); Uric Acid 5.7 mg/dL (3.5-7.2)
[2025-01-12 06:51] LABS: AST(SGOT) 20 U/L (<=37); Alanine Aminotransfer ALT/SGPT 19 U/L (<=46); Albumin, Serum 2.7 g/dL (3.4-4.8); Alkaline Phosphatase 78 U/L (40-129); Anion Gap 10 (5-15); BUN 30 mg/dL (4-19); BUN/Creat Ratio 13.8 RATIO (10-20); Calcium,Total 8.5 mg/dL (7.6-11.0); Carbon Dioxide 21.5 mmol/L (21.0-32.0); Chloride 100 mmol/L (98-108); Estimated Creatinine Clearance 24.75 ml/min (50-250); Globulin 3.0 g/dL (2.2-4.2); Glucose 181 mg/dL (70-99); Potassium 4.2 mmol/L (3.3-5.1)
--- NOTE | 2025-01-12 07:45 | PCM.RU.PYE ---
Admission Information Primary Diagnosis:: Debility due to prolonged hospitalization with partial colectomy and ileostomy Status Changes from Prescreening?: No changes Identified Actual Problem List:: Skin Intergrity, Pain, ALteration in Cmfrt, Cognitve Impr/Memory Loss, Depression, Alteration in Sleep, Alteration in Nutrition, Mobility Impaired, Self Care Deficit, Diabetes, Hyperglycemia, BP, Hypotension, Alteration/ Air Exchange, Fluid Change-Dehydration and Alteration-Leisure Activ. Potential Problem List:: DVT, Bleeding, Infection, UTI, Aspiration, Falls, Skin Integrity and Depression Risk of Complications DVT: CRISTIAN Hose and - (Heparin 5000 units SQ every 12 hours) Bleeding: Monitor Lab Values, Nursing to Teach Precautions for anti-coagulation therapy., Wound, if applicable, to be assessed every shift. and Stroke patients assessed for lethargy or change in status. Infection: Clinical Staff to Monitor for S/S of infection: and S/S of infection include fever, redness, warmth, etc. Urinary Tract Infection: Monitor for frequency, burning, discomfort, or incontinence. and Nursing will obtain urine sample for urinalysis and C&S when ordered. Aspiration: Clinical staff will monitor for coughing, drooling, congestion., Speech will evaluate swallowing and dsyphasia. and Nursing will monitor patient swallowing during meals. Falls: Patient will be evaluated for Fall Precautions and Patient will be placed on Fall Precautions as indicated per protocol. Skin Breakdown: Nursing will assess skin daily using assessment tool. and Nursing will place on Skin Breakdown Precautions as indicated. Pain: Clinical staff will assess patient's pain level per protocol., Medications will be given, if needed, and the pain level reassessed. and Other methods: Massage, distraction, decrease stimulus, etc. used PRN. Plan of Care Patient requires physician specializing in physical medicine and rehab oversight to provide close medical supervision of rehab issues including: Pain Management, Sleep Problems, Bowel and Bladder, Medical and co-morbidity Management, DVT prophylaxis, Rehabilitation Leadership and Coordination of treatment team Patient needs Physical Therapy: For a minimum of 1 hour and At least 5 out of 7 days Patient needs Physical Therapy to improve:: Mobility, Strengthening, Transfers, Stretching, ROM, Endurance, Stairs, Gait and Balance Patient needs Occupational Therapy: For a minimum of 1 hour and At least 5 out of 7 days Patient needs Occupational Therapy to improve ADL's incl.: Eating, Grooming, Bathing, Dressing, Toileting, Toilet transfers, Community Reintegration, Higher functioning activities, Household tasks, Adaptive Equipment, Splinting and Other activities as determined Patient requires speech therapy: For a minimum of 1 hour and At least 5 out of 7 days Patient requires speech therapy for: Swallowing, Cognition, Language Skills and Compensatory Strategies Patient requires 24/ Rehabilitation Nursing for: Pain Issues, Identifying and preventing risk factors, Monitoring and reporting current medical conditions, Assisting with ambulation, transfer, and all ADL's, Teaching patients about disease process and medications, Family teaching, Providing safe environment, Bowel and Bladder Issues, Skin integrity and Medication Management Patient needs Family Helper/ Case Management for: Discharge Planning, Arranging Home Equipment or Services and Family Interventions Patient needs Dietary and Nutrition Services for: Adequate Nutrition, Nutritional Supplements and Nutritional Education Goals Goals Patient will remain: free from falls Patient will perform eating at: MOD I level of assist. Patient will perform bed mobility at: MOD I level of assist. Patient will complete transfers from bed to chair at: MOD I level of assist. Patient will ambulate: - (350 feet with the least restrictive device @ mod I on various surfaces) Patient will complete upper body dressing at: MOD I level of assist. Patient will complete lower body dressing at: MOD I level of assist. (With adaptive equipment as needed) Patient will complete toilet transfer at: MOD I level of assist. Patient will complete toileting at: MOD I level of assist. Patient will perform bathing at: MOD I level of assist. Patient will perform Tub/Shower transfer at: - (Supervision) Patient will complete grooming at: MOD I level of assist. (While standing at the sink) Patient will achieve: 12 stairs (With 2 handrails at standby assist to allow access to his basement) Patient will have pain level of: of 3 or less Patient's skin will: remain intact Patient will receive: adequate nutrition. Discharge Planning Pt Prognosis for Sig. Practical Improv. w/in Reasonable Time: Good Estimated Length of stay (days): 28 Anticipated D/C Destination: Home with Outpt Therapy Was Preadmission Assessment Accurate?: Yes
--- NOTE | 2025-01-12 07:46 | PN_ITS ---
Subjective Subjective Afebrile VSS - + orthostatics today. Near syncope and nausea with diaphoresis when standing, even briefly. Maintaining appropriate oxygen saturation on RA Oral intake - FOOD [] FLUIDS only 300 cc p.o. since arrival on rehab yesterday afternoon. The blood sugar record was reviewed. At bedtime blood sugar was 176 and the fasting today was 207. He had 2 units of Lispro at bedtime. Gets his Glargine in the AM. Discussed with nursing - near syncopal episode in the BR this AM. BP after he sat down in the chair [id number] systolic.....it was 144 lying in bed. Reviewed the THERAPY notes Medication list reviewed. On multiple meds that can drop the BP.......Coreg, Isordil, Proscar, Flomax. Has been diabetic for a long time and could have some autonomic insufficiency? Was able to ambulate 50' a day or 2 prior to DC at [facility] so I am suspecting the orthostatic changes today are at least in part due to dehydration/IV volume depletion and anemia. All lab from today was personally reviewed. White blood cell count is normal at 7.7 but, he has 25.7% eosinophils? Allergic to Cipro? Hemoglobin is 7.7 which is up from 7.1 a few days ago. Platelets are within normal limits. Sodium is 131 today with a potassium of 4.2. The BUN is 30 with a creatinine of 2.14 which is within his baseline. Creatinine clearance is 24.75 and the GFR is 31. GFR fluctuates at baseline between high 20'2 and low 30's. UA is 5.7 which is normal but, he is still c/o R ankle pain that kept him awake last night. Phos is mildly decreased at 2.6 today and the mag is only 1.6. Calcium is within normal limits. LFTs are unremarkable. Albumin is 2.7. Iron saturation on 12/29/24 was only 10.1. He got 3 dose of Iron sucrose for the low iron stores. Stool is heme negative. C/O not sleeping well last night. Poor oral intake. Feels depressed but, with no suicidal ideation. Not anxious. Very tired today and very lightheaded with standing....got nauseated, diaphoretic and almost had syncope. Denies vertigo, cephalgia, palpitations, orthopnea, paroxysmal nocturnal dyspnea, nausea, heartburn, calf pain and suprapubic pain. Still complaining of some right ankle pain which increases with light touch and mild abdominal pain at the site of the KEN drain. He denies rash and also denies pruritus. Objective Data Objective Data Vital Signs: Vital Signs Temp Pulse Resp BP Pulse Ox O2 Del Method 98.1 F 80 16 144/70 H 96 Room Air 01/12/25 05:40 01/12/25 05:40 01/12/25 05:40 01/12/25 05:40 01/12/25 05:40 01/12/25 05:40 Oxygen Delivery Method Room Air Weight: 148 lb 9.465 oz Body Mass Index (BMI) 24.7 Intake & Output: Intake and Output for Last 24 Hours 01/10/25 01/11/25 01/12/25 23:59 23:59 23:59 Intake Total 300 / 300 Output Total 1310 / 1310 775 / 775 Balance -1310 / -1310 -475 / -475 Lab / Micro Data 01/12/25 04:52 01/12/25 04:52 Labs: Laboratory Results - last 24 hr 01/11/25 16:37: POC Glucose 169 H 01/11/25 20:58: POC Glucose 176 H 01/12/25 04:52: WBC 7.7, RBC 2.57 L, Hgb 7.7 L, Hct 23.0 L, MCV 89.5, MCH 30.0, MCHC 33.5, RDW Std Deviation 45.1 H, RDW Coeff of Disha 13.9, Plt Count 323, MPV 10.3, Immature Gran % (Auto) 0.600, Neut % (Auto) 47.9, Lymph % (Auto) 21.1, Carbon % (Auto) 4.4, Eos % (Auto) 25.7 H, Baso % (Auto) 0.3, Absolute Neuts (auto) 3.7, Absolute Lymphs (auto) 1.63, Nucleated RBC % 0, Sodium 131 L, Potassium 4.2, Chloride 100, Carbon Dioxide 21.5, Anion Gap 10, BUN 30 H, Creatinine 2.14 H, Estim Creat Clear Calc 24.75 L, Est GFR (MDRD) Non-Af 31 L, BUN/Creatinine Ratio 13.8, Glucose 181 H, Uric Acid 5.7, Calcium 8.5, Phosphorus 2.6 L, Magnesium 1.6, Total Bilirubin 0.20, AST 20, ALT 19, Alkaline Phosphatase 78, T otal Protein 5.7 L, Albumin 2.7 L, Globulin 3.0, Albumin/Globulin Ratio 0.9 01/12/25 06:31: POC Glucose 207 H Micro: Microbiology 01/11/25 21:20 Stool Stool Occult Blood (RYLEE) - Final Physical Exam Const alert and oriented x3 Constitutional Narrative: Appears very fatigued and weak. Does not appear to be in significant pain. He is cooperative and makes good eye contact with me. HEENT Mouth: dry mucous membranes Resp Resp Narrative: Good air exchange, not tachypneic, few coarse crackles in both bases posteriorly more likely than not secondary to atelectasis. Cardio regular rate, regular rhythm and no gallops Cardio Narrative: No change in the aortic stenosis murmur. No ectopy. EKG shows normal sinus rhythm with left bundle branch block. GI GI Narrative: Soft, nondistended, active bowel sounds in all quadrants, no guarding with light palpation. Stoma is pink and there is good output from the ileostomy. Extremity no calf tenderness General Extremity: Negative for edema Skin Rashes: no rashes Psych Mood & Affect: depressed Assessment & Plan Assessment/Plan (1) Debility: (2) History of right hemicolectomy: (3) History of ileostomy: (4) History of partial colectomy: (5) Postoperative abscess: (6) H/O drainage of abscess: (7) Acute renal failure superimposed on stage 4 chronic kidney disease: QUALIFIERS: Acute renal failure type: unspecified Qualified Code(s): N17.9 - Acute kidney failure, unspecified; N18.4 - Chronic kidney disease, stage 4 (severe) (8) CKD (chronic kidney disease), stage IV: (9) Orthostatic hypotension: (10) Anemia: QUALIFIERS: Anemia type: unspecified type Qualified Code(s): D 64.9 - Anemia, unspecified (11) Dysphagia, oropharyngeal: (12) Cognitive dysfunction: (13) Other severe protein-calorie malnutrition: (14) Hyponatremia: (15) Hypomagnesemia: (16) Myocardial infarction due to demand ischemia: (17) Cardiomyopathy: QUALIFIERS: Cardiomyopathy type: unspecified Qualified Code(s): I 42.9 - Cardiomyopathy, unspecified (18) Severe aortic stenosis: (19) Left atrial enlargement: (20) Mild pulmonary hypertension: (21) History of lumbar fusion: (22) Urinary retention: (23) BPH (benign prostatic hyperplasia): QUALIFIERS: Lower urinary tract symptom presence: symptoms present Lower urinary tract symptom detail: urinary retention Qualified Code(s): N 40.1 - Benign prostatic hyperplasia with lower urinary tract symptoms; R33.8 - Other retention of urine (24) Essential (primary) hypertension: (25) History of diabetes mellitus: (26) History of right-sided carotid endarterectomy: (27) Carotid stenosis, left: (28) Status post lumbar spinal fusion: (29) Diverticulosis: (30) Hyperlipidemia: QUALIFIERS: Hyperlipidemia type: unspecified Qualified Code(s): E 78.5 - Hyperlipidemia, unspecified (31) Depression: QUALIFIERS: Depression Type: reactive depression Qualified Code(s): F32.9 - Major depressive disorder, single episode, unspecified (32) Left bundle branch block: (33) Acute right ankle pain: PLAN: Plan 1. Continue therapy 2. Supplement MAG. 3. 500 cc NS bolus over 1 hour. 4. type and cross for 1 unit PRBC's and transfuse 1 today 5. Put Proscar on hold. 6. Recheck orthostatics and a CBC with diff in the AM. He was on Zosyn at [facility] until 01/11 and he got his first dose of Cipro on the . May be allergic to PCN? Will continue the Cipro. He has no rash, no wheezing and is not c/o pruritus. Hypotension is not likely related to anaphylaxis. 7. REquest all cardiology notes and the ECHO report form [facility]. 8. D/W dye and chemical coordinator - transition him from Ensure to Nepro to decrease potassium load. also add a K restriction to his diet. Add carb consistent. I would rather give him potassium if the K is low than be treating hyperkalemia again. 9. Start Remeron 15 mg at HS 10. Repeat orthostatic vital signs in the a.m. 11. CBC with differential and BMP in the a.m. 12. Start magnesium supplement to keep the magnesium around 2 since he has left atrial enlargement and is at risk for atrial fibrillation Charges/Coding Visit Charges Inpatient E&M: 17455 Subs Hosp L2
[2025-01-12] MEDS: 0.9% Normal Saline (500mL Bag) 500 ML 999 ML IV (08:30)
[2025-01-12] MEDS: Isosorbide DN 10 MG Tablet PO ×3 (08:34→17:21)
[2025-01-12] MEDS: Magnesium Chloride 64 MG Delay Rel.Tablet PO (10:23)
--- NOTE | 2025-01-12 12:34 | NURSING ---
Incorrectly charted the end date for blood administration at 1120, but the end date was 1220. Notified lab of this error.
--- NOTE | 2025-01-12 13:15 | EKG12_ITS ---
Test Reason : DC Blood Pressure : */* mmHG Vent. Rate : 90 BPM Atrial Rate : 90 BPM P-R Int : 158 ms QRS Dur : 150 ms QT Int : 426 ms P-R-T Axes : 58 -30 104 degrees QTcB Int : 521 ms Normal sinus rhythm Left axis deviation Left bundle branch block Abnormal ECG When compared with ECG of 07-Jan-2025 06:53, No significant change was found Confirmed by MEHDI DOBBS MD ([id number]), mapping editor VINEET MARX ([id number]) on 01/16/2025 6:34:35 AM Referred By: Marie Patino Confirmed By: MEHDI DOBBS MD
[2025-01-12] MEDS: Insulin Glargine-YFGN 100 UNIT/ML Pen 10 UNIT SC (22:28)
[2025-01-13 05:03] LABS: Hematocrit 27.7 % (40-54); Hemoglobin 9.0 g/dL (13.0-16.5); Immature Granulocytes Count 0.110 X10^3/uL (0.0-0.0); Mean Corp Hgb Conc 32.5 g/dL (32-36); Mean Corpuscular Volume 88.2 fL (80-94); Mean Platelet Vol. 10.3 fl (6.2-12.0); NRBC Flagged by Analyzer 0 % (0-5); Platelet Count 360 K/mm3 (150-450); RBC Distribution Width CV 16.1 % (11.6-14.6); RBC Distribution Width SD 51.8 fl (35.1-43.9); Red Blood Count 3.14 M/mm3 (4.6-6.2); White Blood Count 9.2 K/mm3 (4.4-11.0)
[2025-01-13 05:28] LABS: Anion Gap 11 (5-15); BUN 28 mg/dL (4-19); BUN/Creat Ratio 14.2 RATIO (10-20); Calcium,Total 8.9 mg/dL (7.6-11.0); Carbon Dioxide 19.7 mmol/L (21.0-32.0); Chloride 103 mmol/L (98-108); Estimated Creatinine Clearance 27.16 ml/min (50-250); Glucose 229 mg/dL (70-99); Potassium 4.4 mmol/L (3.3-5.1)
[2025-01-13 06:00] VITALS: BP 162/66; PULSE 66; RESP 16; TEMP 36.9; O2SAT 95
[2025-01-13] MEDS: Isosorbide DN 10 MG Tablet PO ×3 (07:07→16:55)
[2025-01-13] MEDS: Magnesium Chloride 64 MG Delay Rel.Tablet PO (08:02)
[2025-01-13] MEDS: Heparin Injection (Vial) 5,000 UNIT/ML VIAL 5000 UNIT SC ×2 (08:04→21:27)
[2025-01-13 17:34] VITALS: BP 146/76; PULSE 97; RESP 17; TEMP 36.9; O2SAT 98
[2025-01-13] MEDS: Insulin Glargine-YFGN 100 UNIT/ML Pen 10 UNIT SC (21:36)
--- NOTE | 2025-01-14 03:32 | NURSING ---
Late entry; 01-13-25 Pt complaining of itching around ostomy. Bag removed. Skin around stoma raw, red and irritated. Washed around stoma gently with soap and water, pat dry. Used stoma powder, 1 pc bag and moldable ring. Bag intact. Pt states it feels much better. Instructed to let staff know if any irritation around stoma. Pt verbalizes understanding.
[2025-01-14 06:00] VITALS: BP 167/76; PULSE 69; RESP 16; TEMP 36.7; O2SAT 98
[2025-01-14] MEDS: Isosorbide DN 10 MG Tablet PO ×3 (06:18→16:35)
[2025-01-14] MEDS: Magnesium Chloride 64 MG Delay Rel.Tablet PO (08:15)
[2025-01-14] MEDS: Heparin Injection (Vial) 5,000 UNIT/ML VIAL 5000 UNIT SC ×2 (08:17→22:06)
[2025-01-14 12:08] VITALS: BP 148/70; PULSE 88
[2025-01-14 18:00] VITALS: BP 107/62; PULSE 73; RESP 16; TEMP 36.6; O2SAT 97
[2025-01-14] MEDS: Insulin Glargine-YFGN 100 UNIT/ML Pen 10 UNIT SC (22:09)
[2025-01-15 05:57] VITALS: BP 163/79; PULSE 62; RESP 15; TEMP 36.1; O2SAT 97
[2025-01-15] MEDS: Isosorbide DN 10 MG Tablet PO ×3 (07:58→16:59)
[2025-01-15] MEDS: Magnesium Chloride 64 MG Delay Rel.Tablet PO (07:58)
[2025-01-15] MEDS: Heparin Injection (Vial) 5,000 UNIT/ML VIAL 5000 UNIT SC ×2 (07:59→21:42)
--- NOTE | 2025-01-15 09:22 | PN_ITS ---
Subjective Subjective Everardo was seen on team rounds today. His and his son Lauri were present in the room for rounds. All questions were answered to their satisfaction. Afebrile VSS - Maintaining appropriate oxygen saturation on RA Oral intake - FOOD appetite has improved and he is eating 75 to 100% of most meals since Wednesday breakfast. FLUIDS poor The blood sugar record was reviewed. Bs's are not adequately controlled. Fastings are in the high 100's and the rest of the Accu-Cheks are in the 200s. He is getting Glargine 10 units at HS and getting 5 units TID with meals + SSI coverage TID AC. 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 Discussed with nursing - no problems that need addressed Reviewed the THERAPY notes Medication list reviewed. Eosinophils dropped to 6.6% on Wednesday........I suspect he has an allergy to PCN (he told me today that his mother was allergic to PCN)......[facility] acute rehab. Creat came down to 1.95 with IV hydration. His R ankle pain is much better but, still has a little soreness. UA was normal. Denies abd pain. No CP, SOB, palpitations, N/V, suprapubic pain or calf pain. Lightheaded for brief time when standing but, improves with standing for a minute. Objective Data Objective Data Vital Signs: Vital Signs Temp Pulse Resp BP Pulse Ox O2 Del Method 97.0 F L 62 15 163/79 H 97 Room Air 01/15/25 05:57 01/15/25 05:57 01/15/25 05:57 01/15/25 05:57 01/15/25 05:57 01/15/25 07:07 Oxygen Delivery Method Room Air Weight: 148 lb 9.465 oz Body Mass Index (BMI) 24.7 Intake & Output: Intake and Output for Last 24 Hours 01/13/25 01/14/25 01/15/25 23:59 23:59 23:59 Intake Total 1180 / 1180 775 / 1275 650 / 650 Output Total 2725 / 2725 1700 / 2350 1750 / 1750 Balance -1545 / -1545 -925 / -1075 -1100 / -1100 Medical Nutrition Assessment Dietitian: Malnutrition Criteria Met Start: 01/12/25 12:44 Freq: Status: Active Protocol: Document 01/12/25 12:44 SLA (Rec: 01/12/25 12:44 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 Patino- soft and bite sized Changes consistency Will add Nepro CHO Steady tid w/ meals for additional abel/pro if consumed Continue to follow and monitor for changes in pt nutritional status and make additional rec as indicated . Lab / Micro Data 01/13/25 04:28 01/13/25 04:28 Labs: Laboratory Results - last 24 hr 01/14/25 11:32: POC Glucose 252 H 01/14/25 16:33: POC Glucose 229 H 01/14/25 22:06: POC Glucose 260 H 01/15/25 06:31: POC Glucose 180 H Micro: Microbiology 01/11/25 21:20 Stool Stool Occult Blood (RYLEE) - Final Physical Exam Const alert and no apparent distress General Appearance: cooperative HEENT moist oral mucous membranes Resp Resp Narrative: Few coarse crackles in the bases. Not tachypneic. No labored breathing. No wheezing. No cough. Cardio regular rate, regular rhythm and no gallops Cardio Narrative: No change in the aortic stenosis murmur. No ectopy. EKG shows normal sinus rhythm with left bundle branch block. GI GI Narrative: Soft, nondistended, active bowel sounds in all quadrants, no guarding with light palpation. Stoma is pink and there is good output from the ileostomy. Extremity no calf tenderness General Extremity: Negative for edema Skin Rashes: no rashes Psych Psych Narrative: sleeping a little better at night. Having trouble falling asleep but, once he gets to sleep he is able to stay asleep. Appetite is improved and he tells me today that he is hungry again. Affect is not as flat today. Appearance: appropriate Assessment & Plan Assessment/Plan (1) Debility: (2) History of right hemicolectomy: (3) History of ileostomy: (4) History of partial colectomy: (5) Postoperative abscess: (6) H/O drainage of abscess: (7) Acute renal failure superimposed on stage 4 chronic kidney disease: QUALIFIERS: Acute renal failure type: unspecified Qualified Code(s): N17.9 - Acute kidney failure, unspecified; N18.4 - Chronic kidney disease, stage 4 (severe) (8) CKD (chronic kidney disease), stage IV: (9) Orthostatic hypotension: (10) Anemia: QUALIFIERS: Anemia type: unspecified type Qualified Code(s): D 64.9 - Anemia, unspecified (11) Dysphagia, oropharyngeal: (12) Cognitive dysfunction: (13) Other severe protein-calorie malnutrition: (14) Hyponatremia: (15) Hypomagnesemia: (16) Myocardial infarction due to demand ischemia: (17) Cardiomyopathy: QUALIFIERS: Cardiomyopathy type: unspecified Qualified Code(s): I 42.9 - Cardiomyopathy, unspecified (18) Severe aortic stenosis: (19) History of lumbar fusion: (20) Urinary retention: (21) BPH (benign prostatic hyperplasia): QUALIFIERS: Lower urinary tract symptom presence: symptoms present Lower urinary tract symptom detail: urinary retention Qualified Code(s): N40.1 - Benign prostatic hyperplasia with lower urinary tract symptoms; R33.8 - Other retention of urine (22) Essential (primary) hypertension: (23) History of diabetes mellitus: (24) Depression: QUALIFIERS: Depression Type: reactive depression Qualified Code(s): F32.9 - Major depressive disorder, single episode, unspecified (25) Acute right ankle pain: PLAN: Plan 1. Continue therapy 2. Change the glargine to 10 mg twice daily 3. Continue 5 units prior to each meal and sliding scale insulin 3 times daily AC 4. Voiding trial today. Orthostatics are mildly positive today. Continue to hold Flomax. If he retains > 300 cc with the Killian out will restart Flomax and recheck orthostatics. May need a TURP at some point. 5. check with surgeon to see if the KEN drain can be discontinued.........DC the drain on 01/17. 6. Reinforced with Everardo that he needs to drink 1500-2 L a day. Having some polyuria......may be due to high BS's. 7. Arthritis compounded cream to the R ankle Orthostasis is much better following hydration with IV fluids.......still could have some autonomic neuropathy. Would like to avoid Midodrine in light of vascular disease and severe . Charges/Coding Visit Charges Inpatient E&M: 63311 Subs Hosp L2
[2025-01-15 10:36] VITALS: BP 122/63; BP 134/57; BP 149/56; PULSE 63; PULSE 68; PULSE 69
--- NOTE | 2025-01-15 12:51 | CASEMGMT ---
Social Work IDT met with patient, and son for Team meeting. Discussed patient's progress in PT/OT/ST/SN/MD. Educated to Medicare benefit and will provide approval of days once known. Pt's goal is to return home with . Pt medically complex, which is impacting therapy progress. Pt has new KEN drain and peña, currently. Pt needs physical assistance with ADLs. Monitoring pt's mood with continued treatment on Remeron. Will Reteam weekly and determine pt's progress and needs for DC. SW will continue to follow. Irene Noel STEM LEAD FORMER BONE TENDER
--- NOTE | 2025-01-15 15:30 | CHAPLAIN ---
Type of Pastoral Visit ___ Initial Visit _x__ Follow-up Visit ___ On-call Visit ___ General Patient Visit ___ Spiritual Assessment ___ Family Conference ___ Bereavement ___ Rapid Response ___ Code Blue ___ Other (describe below) Pastoral Care Referral From _x__ Patient ___ Family ___ Nurse ___ Physician ___ Circuit Board Drafter ___ It Help Desk Analyst ___ Other (describe below) Sacrament/Intervention _x__ Active listening ___ Anointing ___ Methodist ___ Bereavement ___ Communion ___ Cris exploration ___ ___ Life review _x__ Prayer ___ Reconciliation ___ Sacrament of Sick ___ Supportive presence ___ Wedding ___ Other (describe below) Pastoral Comments this is a follow up visit from seeing patient in [facility] and [facility]; spouse is engaged in the conversation; pt says that he is on a level plane now; and that he remembers his stay in [place] and that this is much better for his life; no other needs
[2025-01-15 18:00] VITALS: BP 124/65; PULSE 82; RESP 16; TEMP 36.6; O2SAT 100
[2025-01-15] MEDS: Arthritis Pain Compound 60 CLICK TUBE TOPICAL (21:42)
[2025-01-15] MEDS: Insulin Glargine-YFGN 100 UNIT/ML Pen SC (21:43)
[2025-01-16 06:00] VITALS: BP 164/78; PULSE 75; RESP 16; TEMP 37.1; O2SAT 97
[2025-01-16] MEDS: Isosorbide DN 10 MG Tablet PO ×3 (07:57→16:53)
[2025-01-16] MEDS: Heparin Injection (Vial) 5,000 UNIT/ML VIAL 5000 UNIT SC ×2 (07:57→19:46)
[2025-01-16] MEDS: Magnesium Chloride 64 MG Delay Rel.Tablet PO (07:57)
[2025-01-16] MEDS: Arthritis Pain Compound 60 CLICK TUBE TOPICAL ×2 (07:57→19:47)
--- NOTE | 2025-01-16 10:40 | PCM.PROGNOTE ---
Subjective Subjective Cipro will finish in the AM. Afebrile VSS -blood pressure over the past 24 hours has ranged from 124/65 to 163/79. Blood pressure this a.m. is 164/78. Tends to be lower at 1800 and elevated the rest of the time. Heart rate is within normal limits. Maintaining appropriate oxygen saturation on RA Oral intake - FOOD eating 75 to 100% of all of his meals since last Wednesday. FLUIDS oral fluid intake is better, he took 2030 cc yesterday. Unfortunately between urine and stool his output yesterday was 3250 for a fluid balance of -1220. Overnight he was -860. The blood sugar record was reviewed. Discussed with nursing - Having a lot of gas in the ileostomy bag and requires frequent burping. KEN drain will be discontinued in the AM. Killian was removed this AM. He has only a few drops in the urinal at the bedside and does not feel the urge to go. The bladder does not feel distended. Reviewed the THERAPY notes Medication list reviewed. He is on Proscar but, Flomax has been on hold. He continues to c/o R ankle pain. It hurts worse on the medial side of the ankle, jovanny with palpation of the medial ankle. He has some pain with dorsiflexion of the ankle. Could it be Achilles tendonitis due to FQ? He denies cough, shortness of breath, chest pain, palpitations. He does feel lightheaded today, especially when standing. No significant abdominal pain. Objective Data Objective Data Vital Signs: Vital Signs Temp Pulse Resp BP Pulse Ox O2 Del Method 98.8 F 75 16 164/78 H 97 Room Air 01/16/25 06:00 01/16/25 06:00 01/16/25 06:00 01/16/25 06:00 01/16/25 06:00 01/16/25 07:20 Oxygen Delivery Method Room Air Weight: 148 lb 9.465 oz Body Mass Index (BMI) 24.7 Intake & Output: Intake and Output for Last 24 Hours 01/14/25 01/15/25 01/16/25 23:59 23:59 23:59 Intake Total 775 / 1275 2029 340 / 340 Output Total 1700 / 2350 3250 / 3250 1200 / 1200 Balance -925 / -1075 -1220 / -1220 -860 / -860 Medical Nutrition Assessment Dietitian: Malnutrition Criteria Met Start: 01/12/25 12:44 Freq: Status: Active Protocol: Document 01/15/25 10:00 SLA (Rec: 01/15/25 10:00 [facility] [id number]) Nutrition Malnutrition Evidence of Yes Malnutrition Exists Evidenced By Suboptimal Energy Intake (Severe),Weight Loss (Severe), Physical Changes (Moderate) Clinical Problem Acute Disease or Injury Related Malnutrition Etiology r/t acute illness and recent surgeries and suboptimal energy intake Signs/Symptoms as evidenced by po intake meeting <75% of estimated nutritional needs and 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 Patino- soft and bite sized Changes consistency Will continue Nepro CHO Steady tid w/ meals for additional abel/pro if consumed. Continue appetite stimulant as ordered Continue to follow and monitor for changes in pt nutritional status and make additional rec as indicated . Lab / Micro Data 01/13/25 04:28 01/13/25 04:28 Labs: Laboratory Results - last 24 hr 01/15/25 12:07: POC Glucose 191 H 01/15/25 16:50: POC Glucose 191 H 01/15/25 21:41: POC Glucose 244 H 01/16/25 07:12: POC Glucose 174 H Micro: Microbiology 01/11/25 21:20 Stool Stool Occult Blood (RYLEE) - Final Physical Exam Const alert and oriented x3 General Appearance: cooperative Resp clear to auscultation bilaterally Effort and Inspection: Negative for tachypneic or labored Cardio regular rate, regular rhythm, no rub and no gallops GI GI Narrative: has a lot of gas in the bag and some liquid brown stool. BS's are not hyperactive. The stoma looks good and has good output. Nursing yesterday did not have a problem with leakage. Extremity no calf tenderness Extremity Narrative: No ankle edema. the R ankle is not red, swollen or warm to the touch. He has pain with eversion and inversion and dorsiflexion of the foot. He had pain when I grasped the Achilles tendon and squeezed. Skin Rashes: no rashes Assessment & Plan Assessment/Plan (1) Debility: (2) History of right hemicolectomy: (3) History of ileostomy: (4) History of partial colectomy: (5) Postoperative abscess: (6) H/O drainage of abscess: (7) Acute renal failure superimposed on stage 4 chronic kidney disease: QUALIFIERS: Acute renal failure type: unspecified Qualified Code(s): N17.9 - Acute kidney failure, unspecified; N18.4 - Chronic kidney disease, stage 4 (severe) (8) CKD (chronic kidney disease), stage IV: (9) Orthostatic hypotension: (10) Anemia: QUALIFIERS: Anemia type: unspecified type Qualified Code(s): D64.9 - Anemia, unspecified (11) Dysphagia, oropharyngeal: (12) Cognitive dysfunction: (13) Other severe protein-calorie malnutrition: (14) Hyponatremia: (15) Hypomagnesemia: (16) Myocardial infarction due to demand ischemia: (17) Cardiomyopathy: QUALIFIERS: Cardiomyopathy type: unspecified Qualified Code(s): I42.9 - Cardiomyopathy, unspecified (18) Severe aortic stenosis: (19) History of lumbar fusion: (20) Urinary retention: (21) BPH (benign prostatic hyperplasia): QUALIFIERS: Lower urinary tract symptom presence: symptoms present Lower urinary tract symptom detail: urinary retention Qualified Code(s): N40.1 - Benign prostatic hyperplasia with lower urinary tract symptoms; R33.8 - Other retention of urine (22) Essential (primary) hypertension: (23) History of diabetes mellitus: (24) Depression: QUALIFIERS: Depression Type: reactive depression Qualified Code(s): F32.9 - Major depressive disorder, single episode, unspecified (25) Acute right ankle pain: (26) Achilles tendinitis of right lower extremity: PLAN: More likely than not due to FQ. PLAN: Plan 1. Continue therapy 2. X-ray of the right ankle 3. Tylenol 1 g p.o. every 8 hours 4. Tramadol 25 mg every 12 hours as needed right ankle pain 4-10 5. Check a BMP, ESR, CRP and HH today 6. Discontinue Cipro 7. If output between stool and urine continues to exceed input will D/W Dr. Matute what we can do to slow stool output down. Will have nursing start measuring the amount of liquid stool he is having...... 8. clarify with -pharmacy that he is to get Glargine 10 units BID.........he did not get a dose of Glargine this AM.... Charges/Coding Visit Charges Inpatient E&M: 38050 Subs Hosp L1
--- NOTE | 2025-01-16 11:05 | RAD_ITS ---
PROCEDURE: ANKLE MIN 3 VIEWS 01/16/2025 REASON FOR EXAM: PAIN TECHNIQUE: ANKLE MIN 3 VIEWS COMPARISON: None. RAD/Ankle min 3 Views IMPRESSION: Moderate arterial calcification is noted. Minimal degenerative changes are seen of the ankle joint. No ankle joint effusion is seen. On the lateral view, normal contour of the Achilles tendon is noted. Minimal degenerative changes are seen of the midfoot. No fracture or dislocation is noted. Reading Location: [place] [id number]
--- NOTE | 2025-01-16 11:49 | PCM.PN.ORT ---
Documented by User: AZAR Muller 01/16/25 11:58 Subjective Subjective Patient is 7 weeks out L2-5 fusion. Patient had a very complicated postop which resulted in multiple surgeries and a stay at [facility]. The patient is currently back in [place] at inpatient rehab. The patient was seen at the bedside today. Patient reports that he continues to do better. He continues to work with therapy. Patient says that when ambulating he uses a walker. Patient reports that prior to the lumbar surgery 7 weeks ago he was having some issues with constipation. The patient also says that he is very happy with the lumbar surgery and feels like that had gone very well. Objective Data Objective Data Vital Signs: Vital Signs Temp Pulse Resp BP Pulse Ox O2 Del Method 98.8 F 75 16 164/78 H 97 Room Air 01/16/25 06:00 01/16/25 06:00 01/16/25 06:00 01/16/25 06:00 01/16/25 06:00 01/16/25 07:20 Oxygen Delivery Method Room Air Weight: 148 lb 9.465 oz Body Mass Index (BMI) 24.7 Intake & Output: Intake and Output for Last 24 Hours 01/14/25 01/15/25 01/16/25 23:59 23:59 23:59 Intake Total 775 / 1275 2030 / 2030 340 / 340 Output Total 1700 / 2350 3250 / 3250 1200 / 1200 Balance -925 / -1075 -1220 / -1220 -860 / -860 Medical Nutrition Assessment Dietitian: Malnutrition Criteria Met Start: 01/12/25 12:44 Freq: Status: Active Protocol: Document 01/15/25 10:00 [facility] (Rec: 01/15/25 10:00 [facility] [id number]) Nutrition Malnutrition Evidence of Yes Malnutrition Exists Evidenced By Suboptimal Energy Intake (Severe),Weight Loss (Severe), Physical Changes (Moderate) Clinical Problem Acute Disease or Injury Related Malnutrition Etiology r/t acute illness and recent surgeries and suboptimal energy intake Signs/Symptoms as evidenced by po intake meeting <75% of estimated nutritional needs and 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 Patino- soft and bite sized Changes consistency Will continue Nepro CHO Steady tid w/ meals for additional abel/pro if consumed. Continue appetite stimulant as ordered Continue to follow and monitor for changes in pt nutritional status and make additional rec as indicated . Lab / Micro Data 01/16/25 11:48 01/13/25 04:28 Labs: Laboratory Results - last 24 hr 01/15/25 12:07: POC Glucose 191 H 01/15/25 16:50: POC Glucose 191 H 01/15/25 21:41: POC Glucose 244 H 01/16/25 07:12: POC Glucose 174 H 01/16/25 11:20: POC Glucose 184 H Micro: Microbiology 01/11/25 21:20 Stool Stool Occult Blood (RYLEE) - Final Radiography Diagnostic Testing: Radiology Impression Ankle X-Ray 01/16/25 11:05 IMPRESSION: Moderate arterial calcification is noted. Minimal degenerative changes are seen of the ankle joint. No ankle joint effusion is seen. On the lateral view, normal contour of the Achilles tendon is noted. Minimal degenerative changes are seen of the midfoot. No fracture or dislocation is noted. Reading Location: [place] [id number] Physical Exam Narrative Neurological examination of the lower extremity shows 5X5 power. Normal sensation across all dermatomes. Physical examination of the back and belly shows incisions well-healed. Const alert, oriented x3 and no apparent distress Assessment & Plan Assessment/Plan (1) History of lumbar fusion: PLAN: Plan Patient is 7 weeks out L2-5 fusion. Will obtain upright AP and lateral x-rays today. Reviewed prior abdominal CT scan from January 03, 2025 which shows fusion healing. Patient reports that he does not believe he will be able to wear the bone stimulator as this has to wrap around the abdomen and his ostomy bag would get in the way. Discussed that if that is the case then he does not need to wear the bone stimulator. Patient will continue to work with OT/PT. Continue restrictions of no bending, lifting, twisting until 3 months postop. He will follow-up in the clinic once discharged home. Documented by User: Dr. Bill Colon MD 01/16/25 12:22 Subjective Subjective Patient is 7 weeks out L2-5 fusion. Patient had a very complicated postop which resulted in multiple surgeries and a stay at [facility]. The patient is currently back in [place] at inpatient rehab. The patient was seen at the bedside today. Patient reports that he continues to do better. He continues to work with therapy. Patient says that when ambulating he uses a walker. Patient reports that prior to the lumbar surgery 7 weeks ago he was having some issues with constipation, and knows about the diagnosis of diverticulosis. The patient also says that he is very happy with the lumbar surgery and feels like that had gone very well. He denies any radicular symptoms. He still feels weak in both lower extremities due to not having done much therapy over the last 6 to 7 weeks. Objective Data Lab / Micro Data 01/16/25 11:48 01/13/25 04:28 Assessment & Plan Assessment/Plan (1) History of lumbar fusion: PLAN: Plan Patient is 7 weeks out L2-5 fusion. Will obtain upright AP and lateral x-rays today. Reviewed prior abdominal CT scan from January 07, 2025 which shows fusion healing. Patient reports that he does not believe he will be able to wear the bone stimulator as this has to wrap around the abdomen and his ostomy bag would get in the way. Discussed that if that is the case then he does not need to wear the bone stimulator for now. Patient will continue to work with OT/PT. Continue restrictions of no bending, lifting, twisting until 3 months postop. He will follow-up in the clinic once discharged home.
[2025-01-16 12:16] LABS: Hematocrit 30.0 % (40-54); Hemoglobin 9.8 g/dL (13.0-16.5)
[2025-01-16 12:55] LABS: CRP 10.70 mg/L (0.0-3.0)
[2025-01-16 13:00] LABS: Anion Gap 12 (5-15); BUN 48 mg/dL (4-19); BUN/Creat Ratio 25.0 RATIO (10-20); Calcium,Total 9.2 mg/dL (7.6-11.0); Carbon Dioxide 16.9 mmol/L (21.0-32.0); Chloride 102 mmol/L (98-108); Estimated Creatinine Clearance 27.44 ml/min (50-250); Glucose 136 mg/dL (70-99); Potassium 5.1 mmol/L (3.3-5.1)
--- NOTE | 2025-01-16 13:30 | RAD_ITS ---
PROCEDURE: LUMBAR SPINE 2 OR 3 VIEWS 01/16/2025 REASON FOR EXAM: STATUS POST LUMBAR FUSION TECHNIQUE: LUMBAR SPINE 2 OR 3 VIEWS COMPARISON: Lumbar spine radiographs dated 11/28/2024 FINDINGS: Stable postoperative changes from posterior fusion at L2, L4, and L5, with disc replacement probe L2 through L5. No hardware fracture or perihardware lucency. There is a surgical drain in the right lower abdomen. Aortic atherosclerosis. Hernia mesh clips throughout the pelvis. RAD/Lumbar Spine 2 or 3 Views IMPRESSION: Stable postoperative changes of the lumbar spine. Surgical drain projects in t he right lower abdomen, correlate with exam. Reading Location: [facility]
[2025-01-16 14:26] VITALS: BP 125/63; BP 84/51; BP 96/48; PULSE 81; PULSE 84; PULSE 93
--- NOTE | 2025-01-16 14:29 | WOUNDNOTE ---
In to assess the stoma. pt had recent abscess drainage and now has a KEN drain. pt states he had some issues with the ostomy leaking through the weekend. the appliance has been in place since Wednesday. removed the appliance to assess. the peristomal skin is slightly denuded. pt states is tender. stoma measures approx 1 and sits at skin level. stoma had appeared more budded while in TCU. gently cleansed skin with warm water. pat dry. applied stoma powder followed by no sting barrier in multiple layers to protect skin. applied a 1 piece convex [place] appliance with a small amount of stoma paste. pt tolerated well. will monitor closely. plan for appliance changes twice a week and as needed.
--- NOTE | 2025-01-16 15:38 | NURSING ---
spoke with ndt inspector to have midline placed. Awaiting call back with arrival time
[2025-01-16] MEDS: Lidocaine Jelly 2% 20 ML Syringe (URO-JET) 1 APPLIC TOPICAL (17:28)
[2025-01-16 17:31] VITALS: BP 144/67; PULSE 71; RESP 16; TEMP 36.6; O2SAT 99
--- NOTE | 2025-01-16 19:07 | CON.PCM.GI_ITS ---
HPI Consult Data Date of Consult: 01/16/25 HPI Narrative Reason for Consultation: High output ileostomy HPI Narrative: SYD BARNETT, is a 79 M with a complicated recent past medical history. All of history obtained from previous H&P's and current admission H&P. Patient's original problem sciatica due to lumbar canal stenosis who underwent L2-L5 posterior spinal instrumented fusion on 11/27/[address] Colon. He was discharged home on 11/29/2024. He returned to the emergency room on 12/01/2024 complaining of abdominal pain and distention associated with nausea and vomiting. He had not had a bowel movement since prior to the surgery. CT scan of the abdomen and pelvis showed mild acute sigmoid diverticulitis with scattered foci of free air thought to be secondary to microperforations. While at [facility] he was diagnosed with NSTEMI (felt to be type II due to demand ischemia). Echocardiogram was obtained that showed an EF of 36% with hypokinesia and multiple wall motion abnormalities. He had moderate to severe aortic stenosis. The EF was estimated at 35%. There was mild LAE and the PA systolic was estimated at 44 which is consistent with mild pulmonary HTN. On 12/04/2024 he returned to the OR for a second look exploratory laparotomy with creation of a mucus fistula and end ileostomy. A CT scan of the abdomen and pelvis without oral or IV contrast was obtained on 01/03/2025. It showed a possible small abscess at the operative site and a repeat examination with oral contrast was recommended. CT of the abdomen and pelvis with IV contrast was done on 01/04/2025 and showed right anterior upper quadrant fluid and gas collection without intraluminal contrast material compatible with an intra-abdominal abscess. General surgery recommended transfer back to [facility] for treatment. He was transferred to [facility] on 01/08. IR placed a drain in the RUQ and then aspirated 3 cc of exudate. On 01/10/25 the culture of the abscess drainage was not growing anything ( he had been on Zosyn). Zosyn was continued and on the day he was transferred to the acute inpt rehab unit at [facility] he was transitioned to [facility]. I was asked to see him due to high output ileostomy. [facility] Medical History Diverticulosis Acute renal failure superimposed on stage 4 chronic kidney disease Diabetic polyneuropathy Iron deficiency anemia Irregular heart beat CKD (chronic kidney disease), stage IV Wears glasses Wears dentures BPH (benign prostatic hyperplasia) History of diverticulitis Former smoker Leg cramps History of echocardiogram Hypertrophic scar Carotid stenosis, left Sebaceous cyst Amaurosis fugax of right eye Sciatica Hyperlipidemia Osteoarthritis Hemorrhoid GERD (gastroesophageal reflux disease) HTN (hypertension) Home Medications ?Medication ?Instructions ?Recorded ?Last Taken ?Type aspirin 81 mg tablet,delayed 81 mg PO DAILY@0800 heart health 04/16/17 11/26/24 09:00 History release tamsulosin 0.4 mg capsule 0.4 mg PO QHS bph 04/16/17 0 01/10/25 History gabapentin 300 mg capsule 300 mg PO QHS PAIN 10/31/24 11/25/24 22:30 History acetaminophen 325 mg capsule 650 mg PO Q4H PRN fever o r pain 01/11/25 Unknown History carvedilol 6.25 mg tablet (Coreg) 6.25 mg PO BID blood pressure 01/11/25 01/11/25 History ciprofloxacin HCl 500 mg tablet 500 mg PO DAILY ATB 01/11/25 History finasteride 5 mg tablet (Proscar) 5 mg PO DAILY bph 01/11/25 History isosorbide dinitrate 5 mg tablet 10 mg PO TID bp 01/1101/11/25 History (Isordil Titradose) Allergy/AdvReac Type Severity Reaction Status Date / Time atorvastatin (From Lipitor) Allergy INTOLERANCE Verified 12/26/24 20:42 ezetimibe (From Zetia) Allergy MYALGIA Verified 12/26/24 20:42 pravastatin Allergy MYALGIAS Verified 12/26/24 20:42 simvastatin (From Zocor) Allergy INTOLERANCE Verified 12/26/24 20:42 sitagliptin (From Januvia) Allergy INTOLERANCE Verified 12/26/24 20:42 tetanus and diphtheria Allergy Rash Verified 12/01/24 22:00 toxoids [id number]-AUD-[id number] Reductase AdvReac Other Verified 12/01/24 22:00 Inhibitor (Bwrffal-Blf-Kbb Reductase Inhibitor) Family History Father Diabetes Heart disease Myocardial infarction Mother CAD (coronary artery disease) Arthritis Surgical History H/O drainage of abscess History of partial colectomy History of lumbar fusion History of ileostomy History of right hemicolectomy History of right-sided carotid endarterectomy (~11/2017) History of umbilical hernia S/P ventral herniorrhaphy S/P inguinal hernia repair S/P colonoscopy Social History household members: spouse Smoking Status: Former smoker alcohol intake: never substance use type: does not use ROS Constitutional Constitutional: Denies fatigue, fever(s), poor appetite, weight gain or weight loss Gastrointestinal Gastrointestinal: Denies belching, bloating, change in bowel habits, change in stool character, chewing difficulty, coffee ground emesis, constipation, cramping, diarrhea, dyspepsia, dysphagia, early satiety, excessive flatus, fecal incontinence, heartburn, hematemesis, hematochezia, hemorrhoids, loose stools, melena, nausea, odynophagia, rectal bleeding, tenesmus, vomiting or weight changes Physical Exam Const alert, oriented x3, no apparent distress and healthy appearing General Appearance: cooperative GI normal to inspection, nondistended, normoactive bowel sounds, soft to palpation, non-tender and non-distended GI Narrative: Normal-appearing stoma with mucous fistula Percussion: normal to percussion Rectal Exam: deferred Medical Records Data Medical Nutrition Assessment Dietitian: Malnutrition Criteria Met Start: 01/12/25 12:44 Freq: Status: Active Protocol: Document 01/15/25 10:00 [facility] (Rec: 01/15/25 10:00 [facility] [id number]) Nutrition Malnutrition Evidence of Yes Malnutrition Exists Evidenced By Suboptimal Energy Intake (Severe),Weight Loss (Severe), Physical Changes (Moderate) Clinical Problem Acute Disease or Injury Related Malnutrition Etiology r/t acute illness and recent surgeries and suboptimal energy intake Signs/Symptoms as evidenced by po intake meeting <75% of estimated nutritional needs and 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 Patino- soft and bite sized Changes consistency Will continue Nepro CHO Steady tid w/ meals for additional abel/pro if consumed. Continue appetite stimulant as ordered Continue to follow and monitor for changes in pt nutritional status and make additional rec as indicated . Lab / Micro Data 01/16/25 11:48 01/16/25 11:48 Labs: Laboratory Results - last 24 hr 01/15/25 21:41: POC Glucose 244 H 01/16/25 07:12: POC Glucose 174 H 01/16/25 11:20: POC Glucose 184 H 01/16/25 11:48: Hgb 9.8 L, Hct 30.0 L, ESR 19, Sodium 130 L, Potassium 5.1, Chloride 102, Carbon Dioxide 16.9 L, Anion Gap 12, BUN 48 H, Creatinine 1.93 H, Estim Creat Clear Calc 27.44 L, Est GFR (MDRD) Non-Af 35 L, BUN/Creatinine Ratio 25.0 H, Glucose 136 H, Calcium 9.2, C-React Prot Ext Range 10.70 H 01/16/25 16:22: POC Glucose 173 H Imaging Radiology Impression Ankle X-Ray 01/16/25 11:05 IMPRESSION: Moderate arterial calcification is noted. Minimal degenerative changes are seen of the ankle joint. No ankle joint effusion is seen. On the lateral view, normal contour of the Achilles tendon is noted. Minimal degenerative changes are seen of the midfoot. No fracture or dislocation is noted. Reading Location: [facility] Lumbar Spine X-Ray 01/16/25 13:30 IMPRESSION: Stable postoperative changes of the lumbar spine. Surgical drain projects in the right lower abdomen, correlate with exam. Reading Location: [facility] Assessment & Plan Assessment/Plan (1) High output ileostomy: PLAN: His ileostomy output increased over the past 2 days, requiring frequent pouch emptying. The consistency of his output is brownish liquid and then not foul-smelling. He does not have any symptoms of abdominal pain, cramping, nausea or vomiting. * Mucus Fistula: date of mucus fistula creation was on 12/04/2024 and a there is some drainage which is slow down. * Hydration Status:?Patient reports feeling thirsty, but he denies dry mouth. He has maintained his weight since being here but I do not know the amount of exact input and output. Patient has been on normal saline at 100 an hour and received sodium bicarbonate. He has not had much urine output. * Dietary Intake:?His dietary intake seems to be of regular diet with some fruit juices and coffee. It is not known if he is having any increased output with the use of the substances. * Medications: loperamide 2 mg p.o. every 4 to 6 hours Common pitfalls and why they do not work: 1. If we instruct him to ?just drink more.? This often increases ostomy losses and further dehydrates the patient. 2. He may discover that if they drink less their stool output decreases, but unfortunately so does their urine output, further worsening kidney injury. As the GI tract strives for isotonicity, if he drinks hypertonic fluids, water will be pulled into the small bowel lumen to dilute the higher osmotic fluid. * Hypertonic fluids to avoid include fruit juices/drinks, regular sodas, sweet tea, maple or other syrups, ice cream, sherbet, and sweetened commercial liquid supplements such as Boost, Ensure, or store brand equivalents. * Conversely, hypotonic solutions are the lesser of the evils, but still not good choices. These fluids pull sodium, and along with it, water into the small bowel lumen to increase the osmolarity. Examples include water, tea, coffee, alcohol, and diet drinks. * Also we need to stay watch sugar free and ?diabetic? foods and beverages that may contain sugar alcohols (sorbitol,)as they are very diarrheagenic. Oral rehydration solutions are the most beneficial to for him. He does not have short-bowel but during his period in the hospital we will treat him like he does have short-bowel. The stool should be checked for infection such as C. difficile, enteric pathogens, white blood cells, fecal lactoferrin and stool calprotectin I usually use cholestyramine powder, suspension . This is only for use in those with a colon. Without a colon, bile acid malabsorption is not possible. - The first step is acid decreasing with Protonix 40 mg p.o. twice daily - The next step is loperamide: 6mg QID (3 tablets QID) - The third agent is Diphenoxylate: 2.5mg / atropine 0.025mg (2 tablets) QID - The fifth agent is Codeine: 15mg (1 tablet) TID Charges/Coding Visit Charges Inpatient E&M: 11685 Init Hosp L3
[2025-01-16] MEDS: Psyllium 1 PACKET PO (19:45)
[2025-01-16] MEDS: Insulin Glargine-YFGN 100 UNIT/ML Pen 10 UNIT SC (19:57)
[2025-01-17 06:05] VITALS: BP 132/66; PULSE 76; RESP 18; TEMP 36.8; O2SAT 97
[2025-01-17 06:07] VITALS: BMI 24.8
[2025-01-17 06:11] LABS: Albumin, Serum 2.7 g/dL (3.4-4.8); Anion Gap 11 (5-15); BUN 53 mg/dL (4-19); BUN/Creat Ratio 27.9 RATIO (10-20); Calcium,Total 8.8 mg/dL (7.6-11.0); Carbon Dioxide 16.5 mmol/L (21.0-32.0); Chloride 106 mmol/L (98-108); Estimated Creatinine Clearance 27.73 ml/min (50-250); Glucose 186 mg/dL (70-99); Potassium 5.0 mmol/L (3.3-5.1)
[2025-01-17] MEDS: Magnesium Chloride 64 MG Delay Rel.Tablet PO (08:07)
[2025-01-17] MEDS: Arthritis Pain Compound 60 CLICK TUBE TOPICAL ×2 (08:08→19:41)
[2025-01-17] MEDS: Insulin Glargine-YFGN 100 UNIT/ML Pen 10 UNIT SC ×2 (08:08→19:55)
[2025-01-17] MEDS: Isosorbide DN 10 MG Tablet PO ×3 (08:08→16:52)
[2025-01-17] MEDS: Heparin Injection (Vial) 5,000 UNIT/ML VIAL 5000 UNIT SC ×2 (08:08→19:42)
[2025-01-17] MEDS: Psyllium 1 PACKET PO ×2 (08:10→19:40)
[2025-01-17 09:58] VITALS: BP 114/40; BP 143/62; BP 149/62; PULSE 69; PULSE 78; PULSE 93
[2025-01-17] MEDS: 0.9% Saline Lock 10 ML Syringe IV (11:25)
[2025-01-17] MEDS: 0.9% Normal Saline (500mL Bag) 500 ML IV (11:29)
[2025-01-17] MEDS: Sodium Bicarbonate 8.4% 50 ML Syringe 50 MEQ IV (11:30)
[2025-01-17] MEDS: 0.9% Normal Saline (1000mL) 1,000 ML 100 ML IV ×2 (12:34→22:26)
--- NOTE | 2025-01-17 15:06 | CASEMGMT ---
Social Work SW phoned to update on Medicare approval of 23 days with DC 02/14. SW explained as that date gets closer, IDT will make recommendations for DC and this worker will assist with DC plans. inquired about those options. SW informed home with skilled HHC or SNF, intermediate. inquired if they could choose which SNF. SW agreed as this worker would provide /pt with a list of available SNF options. appreciative. SW will continue to follow. ReTeam weekly. 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
--- NOTE | 2025-01-17 15:54 | NS ---
01/17/25: Patient was with care staff x2 RDN visits and sleeping this afternoon. RDN left NCM Ileostomy Nutrition Therapy handout at bedside table. Noted on handout some tips for decreasing gas and ostomy output from a nutrition standpoint. RDN contact infomration provided. RDN will attempt to follow-up with pt on 01/18/25. Tamika Ratliff RDN, LD
[2025-01-17 17:19] VITALS: BP 121/55; PULSE 89; RESP 16; TEMP 36.6; O2SAT 98
[2025-01-18 06:00] VITALS: BP 138/63; PULSE 82; RESP 16; TEMP 36.9; O2SAT 96; BMI 25.4
[2025-01-18] MEDS: Isosorbide DN 10 MG Tablet PO ×3 (06:27→16:39)
[2025-01-18] MEDS: Magnesium Chloride 64 MG Delay Rel.Tablet PO (08:19)
[2025-01-18] MEDS: Heparin Injection (Vial) 5,000 UNIT/ML VIAL 5000 UNIT SC ×2 (08:20→21:38)
[2025-01-18] MEDS: Arthritis Pain Compound 60 CLICK TUBE TOPICAL ×2 (08:20→21:37)
[2025-01-18] MEDS: Psyllium 1 PACKET PO ×2 (08:20→21:38)
[2025-01-18] MEDS: Insulin Glargine-YFGN 100 UNIT/ML Pen 10 UNIT SC ×2 (08:22→21:37)
--- NOTE | 2025-01-18 08:52 | PN_ITS ---
Subjective Subjective Afebrile VSS - Maintaining appropriate oxygen saturation on RA Oral intake - FOOD very good FLUIDS fluid intake yesterday was 2980 but he had 3100 out for a balance of -120. 2400 of the output was urine and he had 700 cc stool. Overnight he was -495. Blood sugar record reviewed. Discussed with nursing - no problems that need addressed Reviewed the THERAPY notes Medication list reviewed. Everardo tells me that he is less Lightheaded today. He was able to do his therapy yesterday despite being lightheaded. He also did therapy today......had to sit down once when lightheaded and it resolved. Denies chest pain, cough, shortness of breath, palpitations, nausea/vomiting/abdominal pain, suprapubic pain and calf tenderness. With the addition of the psyllium husk The stool has decreased and now is more like a gel. Objective Data Objective Data Vital Signs: Vital Signs Temp Pulse Resp BP Pulse Ox O2 Del Method 98.4 F 82 16 138/63 H 96 Room Air 01/18/25 06:00 01/18/25 06:00 01/18/25 06:00 01/18/25 06:00 01/18/25 06:00 01/18/25 06:00 Oxygen Delivery Method Room Air Weight: 153 lb 5 oz Body Mass Index (BMI) 25.4 Intake & Output: Intake and Output for Last 24 Hours 01/16/25 01/17/25 01/18/25 23:59 23:59 23:59 Intake Total 1420 / 1420 2980 / 2980 480 / 480 Output Total 2850 / 2850 3100 / 3100 975 / 975 Balance -1430 / -1430 -120 / -120 -495 / -495 Medical Nutrition Assessment Dietitian: Malnutrition Criteria Met Start: 01/12/25 12:44 Freq: Status: Active Protocol: Document 01/15/25 10:00 [facility] (Rec: 01/15/25 10:00 [facility] [id number]) Nutrition Malnutrition Evidence of Yes Malnutrition Exists Evidenced By Suboptimal Energy Intake (Severe),Weight Loss (Severe), Physical Changes (Moderate) Clinical Problem Acute Disease or Injury Related Malnutrition Etiology r/t acute illness and recent surgeries and suboptimal energy intake Signs/Symptoms as evidenced by po intake meeting <75% of estimated nutritional needs and 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 Patino- soft and bite sized Changes consistency Will continue Nepro CHO Steady tid w/ meals for additional abel/pro if consumed. Continue appetite stimulant as ordered Continue to follow and monitor for changes in pt nutritional status and make additional rec as indicated . Lab / Micro Data 01/19/25 06:53 01/19/25 06:53 Labs: Laboratory Results - last 24 hr 01/17/25 11:04: POC Glucose 164 H 01/17/25 15:58: POC Glucose 194 H 01/17/25 19:51: POC Glucose 300 H 01/18/25 06:04: POC Glucose 161 H Micro: Microbiology 01/11/25 21:20 Stool Stool Occult Blood (RYLEE) - Final Physical Exam Const alert and oriented x3 General Appearance: cooperative HEENT Mouth: dry mucous membranes Resp normal respiratory effort and clear to auscultation bilaterally Effort and Inspection: Negative for tachypneic or labored Cardio regular rate, regular rhythm, no rub and no gallops Cardio Narrative: No ectopy GI GI Narrative: Less gas since the simethicone was added and the stool is now more gel like than liquid. Decreased stool output today. Extremity no calf tenderness Extremity Narrative: Since the Cipro was discontinued he is no longer c/o R ankle pain. General Extremity: Negative for edema Skin Rashes: no rashes Psych Psych Narrative: calm, good eye contact, talkative, sleeping better at night and has a good appetite. Appearance: appropriate Assessment & Plan Assessment/Plan (1) Debility: (2) History of right hemicolectomy: (3) History of ileostomy: (4) History of partial colectomy: (5) Postoperative abscess: (6) H/O drainage of abscess: (7) Acute renal failure superimposed on stage 4 chronic kidney disease: QUALIFIERS: Acute renal failure type: unspecified Qualified Code(s): N17.9 - Acute kidney failure, unspecified; N18.4 - Chronic kidney disease, stage 4 (severe) (8) CKD (chronic kidney disease), stage IV: (9) Orthostatic hypotension: (10) Anemia: QUALIFIERS: Anemia type: unspecified type Qualified Code(s): D 64.9 - Anemia, unspecified (11) Dysphagia, oropharyngeal: (12) Cognitive dysfunction: (13) Other severe protein-calorie malnutrition: (14) Hyponatremia: (15) Hypomagnesemia: (16) Myocardial infarction due to demand ischemia: (17) Cardiomyopathy: QUALIFIERS: Cardiomyopathy type: unspecified Qualified Code(s): I 42.9 - Cardiomyopathy, unspecified (18) Severe aortic stenosis: (19) History of lumbar fusion: (20) Urinary retention: (21) BPH (benign prostatic hyperplasia): QUALIFIERS: Lower urinary tract symptom presence: symptoms present Lower urinary tract symptom detail: urinary retention Qualified Code(s): N40.1 - Benign prostatic hyperplasia with lower urinary tract symptoms; R33.8 - Other retention of urine (22) Essential (primary) hypertension: (23) History of diabetes mellitus: (24) Depression: QUALIFIERS: Depression Type: reactive depression Qualified Code(s): F32.9 - Major depressive disorder, single episode, unspecified (25) Acute right ankle pain: (26) Achilles tendinitis of right lower extremity: PLAN: Plan 1. Continue therapy 2. Remove the KEN drain today 3. Check orthostatics today 4. Check an H&H and renal profile in the a.m. 5. change the Imodium to 4 mg TID 6. Increase the SSI to med/high scale. I want to see all the BS's < 180 with no hypoglycemia to hopefully cut down on polyuria. 7. May need to go up on the Glargine in the AM. Charges/Coding Visit Charges Inpatient E&M: 76207 Subs Hosp L1
--- NOTE | 2025-01-18 08:52 | NURSING ---
KEN drain removed per orders. pt tolerated well.
[2025-01-18 10:22] VITALS: BP 110/59; BP 113/53; BP 98/42; PULSE 85; PULSE 88
[2025-01-18] MEDS: 0.9% Saline Lock 10 ML Syringe IV (13:43)
--- NOTE | 2025-01-18 13:45 | WOUNDNOTE ---
Ostomy appliance remains intact. will plan for another appliance change tomorrow with patient and if present. Pt may still need home health care at home for reinforcement of teaching.
--- NOTE | 2025-01-18 16:15 | NS ---
01/18/25: Met with pt today. Dr. Patino is trying to get pt to drink more water. Pt doesn't like just plain water. Uses [employer] at home for water but this contains aspartame which Dr. Patino is recommending to avoid artificial sweeteners per RN. RDN show pt a picture of [employer] which only has water and natural flavors listed in the ingredients. Recommend pt have family look at the grocery store for this or an option similar product. Will ask kitchen to have fruit infused mendez from the cafeteria put on pt's breakfast and lunch trays during the week when the cafeteria is open. Pt is amenable to this. Pt reports he and his reviewed handout that was provided by [employer] yesterday and states the information was very helpful. No questions at this time regarding information. Tamika Ratliff RDN, LD
[2025-01-18 18:00] VITALS: BP 130/79; PULSE 85; RESP 17; TEMP 36.8; O2SAT 99
--- NOTE | 2025-01-18 18:26 | NURSING ---
pt practiced emptying ostomy this shift.
[2025-01-19] MEDS: Isosorbide DN 10 MG Tablet PO ×3 (05:15→17:14)
[2025-01-19 06:00] VITALS: BP 135/63; PULSE 87; RESP 16; TEMP 36.7; O2SAT 95; BMI 25.4
[2025-01-19 07:06] LABS: Hematocrit 24.3 % (40-54); Hemoglobin 8.1 g/dL (13.0-16.5)
[2025-01-19 07:43] LABS: Albumin, Serum 2.8 g/dL (3.4-4.8); Anion Gap 10 (5-15); BUN 48 mg/dL (4-19); BUN/Creat Ratio 27.6 RATIO (10-20); Calcium,Total 8.9 mg/dL (7.6-11.0); Carbon Dioxide 17.9 mmol/L (21.0-32.0); Chloride 107 mmol/L (98-108); Estimated Creatinine Clearance 30.79 ml/min (50-250); Glucose 144 mg/dL (70-99); Potassium 4.8 mmol/L (3.3-5.1)
[2025-01-19] MEDS: Insulin Glargine-YFGN 100 UNIT/ML Pen 16 UNIT SC (08:11)
[2025-01-19] MEDS: Arthritis Pain Compound 60 CLICK TUBE TOPICAL ×2 (08:13→22:35)
[2025-01-19] MEDS: Heparin Injection (Vial) 5,000 UNIT/ML VIAL 5000 UNIT SC ×2 (08:13→22:35)
[2025-01-19] MEDS: Magnesium Chloride 64 MG Delay Rel.Tablet PO (08:14)
[2025-01-19] MEDS: Psyllium 1 PACKET PO ×2 (08:14→22:36)
--- NOTE | 2025-01-19 09:23 | PCM.PROGNOTE ---
Subjective Subjective Afebrile Blood pressure is 135/63 today with a heart rate of 87. Orthostatics yesterday were negative. Maintaining appropriate oxygen saturation on room air. The blood sugar record was reviewed. All blood sugars yesterday were under 180 with no hypoglycemia. Eating 75 to 100% of all his meals. Fluid balance yesterday was -965. Overnight he was -650. He had 1950 and urine output yesterday and 1175 out in stool. Weight today is 152 pounds and 9 ounces which is down approximately 1/2 pounds since yesterday. GI note was reviewed and much appreciated. Stool studies ordered. Add no caffeine to diet and no SF drinks. All lab from today was personally reviewed. HGB is 8.1 today? down from 9.8 oon 01/16 but, he is better hydrated. Sodium is 135 and the potassium is 4.8 today. Serum bicarb is 17.9, up from 16.5 on 01/17/2025. BUN is 48, down from 53 on 01/17/2025 and his creatinine is 1.72 which is down from 1.91 on 01/17/2025. Phosphorus is normal. Did not he denies lightheadedness, cephalgia, palpitations, chest pain, shortness of breath, cough, abdominal pain and calf pain Objective Data Objective Data Vital Signs: Vital Signs Temp Pulse Resp BP Pulse Ox O2 Del Method 98.1 F 87 16 135/63 H 95 Room Air 01/19/25 06:00 01/19/25 06:00 01/19/25 06:00 01/19/25 06:00 01/19/25 06:00 01/19/25 06:00 Oxygen Delivery Method Room Air Weight: 152 lb 8.958 oz Body Mass Index (BMI) 25.4 Intake & Output: Intake and Output for Last 24 Hours 01/17/25 01/18/25 01/19/25 23:59 23:59 23:59 Intake Total 2980 / 2980 2160 / 2160 Output Total 3100 / 3100 3125 / 3125 650 / 650 Balance -120 / -120 -965 / -965 -650 / -650 Medical Nutrition Assessment Dietitian: Malnutrition Criteria Met Start: 01/12/25 12:44 Freq: Status: Active Protocol: Document 01/15/25 10:00 [facility] (Rec: 01/15/25 10:00 [facility] [id number]) Nutrition Malnutrition Evidence of Yes Malnutrition Exists Evidenced By Suboptimal Energy Intake (Severe),Weight Loss (Severe), Physical Changes (Moderate) Clinical Problem Acute Disease or Injury Related Malnutrition Etiology r/t acute illness and recent surgeries and suboptimal energy intake Signs/Symptoms as evidenced by po intake meeting <75% of estimated nutritional needs and 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 Patino- soft and bite sized Changes consistency Will continue Nepro CHO Steady tid w/ meals for additional abel/pro if consumed. Continue appetite stimulant as ordered Continue to follow and monitor for changes in pt nutritional status and make additional rec as indicated . Lab / Micro Data 01/19/25 06:53 01/19/25 06:53 Labs: Laboratory Results - last 24 hr 01/18/25 11:32: POC Glucose 167 H 01/18/25 16:33: POC Glucose 172 H 01/18/25 21:33: POC Glucose 170 H 01/19/25 05:39: POC Glucose 151 H 01/19/25 06:53: Hgb 8.1 L, Hct 24.3 L, Sodium 135, Potassium 4.8, Chloride 107, Carbon Dioxide 17.9 L, Anion Gap 10, BUN 48 H, Creatinine 1.72 H, Estim Creat Clear Calc 30.79 L, Est GFR (MDRD) Non-Af 40 L, BUN/Creatinine Ratio 27.6 H, Glucose 144 H, Calcium 8.9, Phosphorus 4.2, Albumin 2.8 L Micro: Microbiology 01/11/25 21:20 Stool Stool Occult Blood (RYLEE) - Final Physical Exam Const alert and oriented x3 Constitutional Narrative: Sitting in the recliner at the bedside. Very alert and pleasant. General Appearance: cooperative HEENT Mouth: dry mucous membranes Resp normal respiratory effort and clear to auscultation bilaterally Resp Narrative: No cough. Effort and Inspection: Negative for tachypneic or labored Cardio regular rate, regular rhythm, no rub and no gallops Cardio Narrative: No ectopy GI GI Narrative: Less gas since the simethicone was added and the stool is now more gel like than liquid. Decreased stool amount. Stool appears to be a light brown color. No visible blood. Stoma looks good. Extremity no calf tenderness Extremity Narrative: Since the Cipro was discontinued he is no longer c/o R ankle pain. General Extremity: Negative for edema Skin Rashes: no rashes Psych Psych Narrative: calm, good eye contact, talkative, sleeping better at night and has a good appetite. Appearance: appropriate Assessment & Plan Assessment/Plan (1) Debility: (2) History of right hemicolectomy: (3) History of ileostomy: (4) History of partial colectomy: (5) Postoperative abscess: (6) H/O drainage of abscess: (7) Acute renal failure superimposed on stage 4 chronic kidney disease: QUALIFIERS: Acute renal failure type: unspecified Qualified Code(s): N17.9 - Acute kidney failure, unspecified; N18.4 - Chronic kidney disease, stage 4 (severe) (8) CKD (chronic kidney disease), stage IV: (9) Orthostatic hypotension: (10) Anemia: QUALIFIERS: Anemia type: unspecified type Qualified Code(s): D64.9 - Anemia, unspecified (11) Dysphagia, oropharyngeal: (12) Cognitive dysfunction: (13) Other severe protein-calorie malnutrition: (14) Hypomagnesemia: (15) Myocardial infarction due to demand ischemia: (16) Cardiomyopathy: QUALIFIERS: Cardiomyopathy type: unspecified Qualified Code(s): I42.9 - Cardiomyopathy, unspecified (17) Severe aortic stenosis: (18) Urinary retention: (19) BPH (benign prostatic hyperplasia): QUALIFIERS: Lower urinary tract symptom presence: symptoms present Lower urinary tract symptom detail: urinary retention Qualified Code(s): N40.1 - Benign prostatic hyperplasia with lower urinary tract symptoms; R33.8 - Other retention of urine (20) Essential (primary) hypertension: (21) History of diabetes mellitus: (22) Depression: QUALIFIERS: Depression Type: reactive depression Qualified Code(s): F32.9 - Major depressive disorder, single episode, unspecified (23) Heme positive stool: PLAN: Plan 1. Continue therapy 2. Hemoccult stool, C. difficile, stool lactoferrin, enteric pathogen panel and stool calprotectin 3. Change the Imodium to 6 mg every 8 hours 4. Add a caffeine restriction and no sugar-free drinks to the current diet 5. Increased bicarb tabs to 4 X's a day 6. Glargine was increased to 16 units this AM........continue to monitor ACHS sugars. No adjustments to the Lispro today........if he continues to need coverage with SSI throughout the day will increase the scheduled Lispro with meals. 7. BMP, magnesium and CBC on Wednesday. Charges/Coding Visit Charges Inpatient E&M: 16649 Subs Hosp L2
[2025-01-19 18:14] VITALS: BP 136/64; PULSE 88; RESP 16; TEMP 36.6; O2SAT 99
[2025-01-19] MEDS: Insulin Glargine-YFGN 100 UNIT/ML Pen 10 UNIT SC (22:40)
[2025-01-19] MEDS: 0.9% Saline Lock 10 ML Syringe IV (23:24)
[2025-01-20 06:00] VITALS: BP 135/63; PULSE 73; RESP 17; TEMP 36.8; O2SAT 97; BMI 25.7
[2025-01-20] MEDS: Isosorbide DN 10 MG Tablet PO ×3 (06:21→17:11)
--- NOTE | 2025-01-20 07:26 | NURSING ---
Pt stool liquid last tomas, pudding consistency today. Pt emptied own ostomy and did cath care on self at sink.
[2025-01-20] MEDS: Insulin Glargine-YFGN 100 UNIT/ML Pen 16 UNIT SC (08:05)
[2025-01-20] MEDS: Magnesium Chloride 64 MG Delay Rel.Tablet PO (08:07)
[2025-01-20] MEDS: Arthritis Pain Compound 60 CLICK TUBE TOPICAL ×2 (08:14→21:38)
[2025-01-20 08:16] VITALS: PULSE 74
[2025-01-20] MEDS: Psyllium 1 PACKET PO ×2 (09:01→21:40)
[2025-01-20] MEDS: Heparin Injection (Vial) 5,000 UNIT/ML VIAL 5000 UNIT SC ×2 (09:02→21:38)
[2025-01-20 12:22] VITALS: BP 124/58; PULSE 74
[2025-01-20] MEDS: 0.9% Saline Lock 10 ML Syringe IV ×2 (17:15→21:41)
[2025-01-20 17:53] VITALS: BP 129/57; PULSE 73; RESP 16; TEMP 37.1; O2SAT 94
[2025-01-20] MEDS: Insulin Glargine-YFGN 100 UNIT/ML Pen 10 UNIT SC (21:39)
[2025-01-21 04:54] LABS: Hematocrit 24.9 % (40-54); Hemoglobin 8.2 g/dL (13.0-16.5); Immature Granulocytes Count 0.030 X10^3/uL (0.0-0.0); Mean Corp Hgb Conc 32.9 g/dL (32-36); Mean Corpuscular Volume 91.2 fL (80-94); Mean Platelet Vol. 10.2 fl (6.2-12.0); NRBC Flagged by Analyzer 0 % (0-5); Platelet Count 330 K/mm3 (150-450); RBC Distribution Width CV 17.9 % (11.6-14.6); RBC Distribution Width SD 59.8 fl (35.1-43.9); Red Blood Count 2.73 M/mm3 (4.6-6.2); White Blood Count 7.8 K/mm3 (4.4-11.0)
[2025-01-21 05:39] LABS: Anion Gap 11 (5-15); BUN 41 mg/dL (4-19); BUN/Creat Ratio 21.6 RATIO (10-20); Calcium,Total 8.6 mg/dL (7.6-11.0); Carbon Dioxide 18.1 mmol/L (21.0-32.0); Chloride 105 mmol/L (98-108); Estimated Creatinine Clearance 28.17 ml/min (50-250); Glucose 112 mg/dL (70-99); Magnesium 1.6 mg/dL (1.5-2.2); Potassium 4.8 mmol/L (3.3-5.1)
[2025-01-21 06:00] VITALS: BP 111/50; PULSE 69; RESP 16; TEMP 36.9; O2SAT 98; BMI 25.7
[2025-01-21] MEDS: Isosorbide DN 10 MG Tablet PO ×3 (06:29→16:53)
[2025-01-21] MEDS: Insulin Glargine-YFGN 100 UNIT/ML Pen 16 UNIT SC (08:26)
[2025-01-21] MEDS: Arthritis Pain Compound 60 CLICK TUBE TOPICAL ×2 (08:28→21:52)
[2025-01-21] MEDS: Psyllium 1 PACKET PO ×2 (08:29→21:53)
[2025-01-21] MEDS: Magnesium Chloride 64 MG Delay Rel.Tablet PO (08:29)
[2025-01-21] MEDS: Heparin Injection (Vial) 5,000 UNIT/ML VIAL 5000 UNIT SC ×2 (08:29→21:52)
[2025-01-21 16:50] VITALS: BP 129/65; PULSE 86; RESP 16; TEMP 36.9; O2SAT 99
[2025-01-21] MEDS: 0.9% Saline Lock 10 ML Syringe IV (21:59)
[2025-01-21 22:00] VITALS: RESP 16
[2025-01-21] MEDS: Insulin Glargine-YFGN 100 UNIT/ML Pen 10 UNIT SC (22:03)
[2025-01-22 05:08] VITALS: BP 118/58; PULSE 77; RESP 16; TEMP 36.8
[2025-01-22 06:00] VITALS: BMI 26.4
[2025-01-22] MEDS: Insulin Glargine-YFGN 100 UNIT/ML Pen 16 UNIT SC (08:02)
--- NOTE | 2025-01-22 08:02 | PCM.PROGNOTE ---
Subjective Subjective Everardo was seen on team rounds today. Afebrile VSS -blood pressure is well-controlled and the heart rate is within normal limits. Heart rate has come down with better hydration. Orthostatics are negative today. Maintaining appropriate oxygen saturation on RA Oral intake - FOOD good FLUIDS not being adequately reported by nursing over the weekend. Wt has increased 2 and 1/2 lbs since Wednesday so I suspect he has had good fluid intake. Stool output yesterday was recorded as 1450 and he had 1915 in urine. Only 690 intake was reported. Blood sugar record was reviewed. For the most part blood sugars are controlled. His blood sugars are somewhat labile....occasional BS 300 but, most in good control. Discussed with nursing - no problems that need addressed Reviewed the THERAPY notes Medication list reviewed. Has not had to take any tramadol for pain. Lab from yesterday was personally reviewed. Hemoglobin stable at 8.2. White blood cell count and platelets are within normal limits. White blood cell differential shows 16.1% eosinophils. The absolute neutrophil count is 1248. Sodium is 133 and the potassium is 4.8 and stable. Serum bicarb is 18 despite sodium bicarb tabs 4 times daily. The BUN is 41 with a creatinine of 1.88 which is stable and actually good for him. Magnesium is 1.6 despite supplementation. C. difficile, fecal leukocytes and enteric pathogen panel were negative. Stool calprotectin is still pending. Denies lightheadedness, pruritus, cephalgia, chest pain, shortness of breath, cough, palpitations, nausea/vomiting/abdominal pain and calf pain. Tells me he is sleeping well at night. He is having a little back pain this morning when he got out of bed. Objective Data Objective Data Vital Signs: Vital Signs Temp Pulse Resp BP Pulse Ox O2 Del Method 98.3 F 77 16 118/58 L 99 Room Air 01/22/25 05:08 01/22/25 05:08 01/22/25 05:08 01/22/25 05:08 01/21/25 16:50 01/22/25 05:08 Oxygen Delivery Method Room Air Weight: 155 lb Body Mass Index (BMI) 25.7 Intake & Output: Intake and Output for Last 24 Hours 01/20/25 01/21/25 01/22/25 23:59 23:59 23:59 Intake Total 3080 / 3080 690 / 690 Output Total 3960 / 3960 3590 / 3590 900 / 900 Balance -880 / -880 -2900 / -2900 -900 / -900 Medical Nutrition Assessment Dietitian: Malnutrition Criteria Met Start: 01/12/25 12:44 Freq: Status: Active Protocol: Document 01/15/25 10:00 [facility]LA (Rec: 01/15/25 10:00 [facility] [id number]) Nutrition Malnutrition Evidence of Yes Malnutrition Exists Evidenced By Suboptimal Energy Intake (Severe),Weight Loss (Severe), Physical Changes (Moderate) Clinical Problem Acute Disease or Injury Related Malnutrition Etiology r/t acute illness and recent surgeries and suboptimal energy intake Signs/Symptoms as evidenced by po intake meeting <75% of estimated nutritional needs and 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 Patino- soft and bite sized Changes consistency Will continue Nepro CHO Steady tid w/ meals for additional abel/pro if consumed. Continue appetite stimulant as ordered Continue to follow and monitor for changes in pt nutritional status and make additional rec as indicated . Lab / Micro Data 01/21/25 04:35 01/21/25 04:35 Labs: Laboratory Results - last 24 hr 01/21/25 11:24: POC Glucose 206 H 01/21/25 16:52: POC Glucose 301 H 01/21/25 22:02: POC Glucose 127 H 01/22/25 05:42: POC Glucose 129 H Micro: Microbiology 01/19/25 10:50 Stool Clostridioides difficile (PCR) - Final 01/19/25 10:50 Stool Enteric Bacteriology - Final 01/19/25 10:00 Stool Stool Lactoferrin - Final 01/19/25 10:50 Stool Stool Occult Blood (RYLEE) - Final Occult Blood Positive 01/11/25 21:20 Stool Stool Occult Blood (RYLEE) - Final Physical Exam Const alert, oriented x3 and no apparent distress Constitutional Narrative: Seems a little sleepy today. General Appearance: cooperative HEENT Mouth: dry mucous membranes Resp normal respiratory effort and clear to auscultation bilaterally Resp Narrative: No cough. Effort and Inspection: Negative for tachypneic or labored Cardio regular rate, regular rhythm, no rub and no gallops Cardio Narrative: No ectopy GI GI Narrative: stool is pasty today and thickening up. It is brown. HGB is stable. minimal gas in the bag. Extremity no calf tenderness General Extremity: Negative for edema Skin Rashes: no rashes Psych Psych Narrative: calm, good eye contact, talkative, sleeping better at night and has a good appetite. Seems a little tired today or down. Appearance: appropriate Assessment & Plan Assessment/Plan (1) Debility: (2) History of right hemicolectomy: (3) History of ileostomy: (4) History of partial colectomy: (5) Postoperative abscess: (6) H/O drainage of abscess: (7) Acute renal failure superimposed on stage 4 chronic kidney disease: QUALIFIERS: Acute renal failure type: unspecified Qualified Code(s): N17.9 - Acute kidney failure, unspecified; N18.4 - Chronic kidney disease, stage 4 (severe) (8) CKD (chronic kidney disease), stage IV: (9) Orthostatic hypotension: (10) Anemia: QUALIFIERS: Anemia type: unspecified type Qualified Code(s): D64.9 - Anemia, unspecified (11) Dysphagia, oropharyngeal: (12) Cognitive dysfunction: (13) Other severe protein-calorie malnutrition: (14) Hypomagnesemia: (15) Myocardial infarction due to demand ischemia: (16) Cardiomyopathy: QUALIFIERS: Cardiomyopathy type: unspecified Qualified Code(s): I42.9 - Cardiomyopathy, unspecified (17) Severe aortic stenosis: (18) Urinary retention: (19) BPH (benign prostatic hyperplasia): QUALIFIERS: Lower urinary tract symptom presence: symptoms present Lower urinary tract symptom detail: urinary retention Qualified Code(s): N40.1 - Benign prostatic hyperplasia with lower urinary tract symptoms; R33.8 - Other retention of urine (20) Essential (primary) hypertension: (21) History of diabetes mellitus: (22) Depression: QUALIFIERS: Depression Type: reactive depression Qualified Code(s): F32.9 - Major depressive disorder, single episode, unspecified (23) Heme positive stool: PLAN: Plan 1. Continue therapy 2. Discontinue the Proscar. Check orthostatics today. 3. Increase the Imodium to 6 mg every 6 hours 4. Hold bicarb tabs......the sodium may be pulling water into the stool 5. Recheck renal profile/HH on Wednesday 6. If he continues to have large volume of stool will consider adding Lomotil or Codeine. 7. He has increased eosinophils but, no rash and no pruritus. The absolute eosinophil count is less than 1500. No tx necessary at this time. Charges/Coding Visit Charges Inpatient E&M: 06712 Subs Hosp L2
[2025-01-22] MEDS: Magnesium Chloride 64 MG Delay Rel.Tablet PO (08:04)
[2025-01-22] MEDS: Isosorbide DN 10 MG Tablet PO ×3 (08:04→17:05)
[2025-01-22] MEDS: Psyllium 1 PACKET PO ×3 (08:05→21:06)
[2025-01-22] MEDS: Arthritis Pain Compound 60 CLICK TUBE TOPICAL ×2 (08:06→21:11)
[2025-01-22] MEDS: Heparin Injection (Vial) 5,000 UNIT/ML VIAL 5000 UNIT SC ×2 (08:07→21:12)
[2025-01-22] MEDS: 0.9% Saline Lock 10 ML Syringe IV (09:07)
[2025-01-22 09:12] VITALS: BP 105/54; BP 125/59; BP 96/51; PULSE 88; PULSE 93
--- NOTE | 2025-01-22 12:44 | CASEMGMT ---
Social Work IDT met with patient and for Team meeting. Discussed patient's progress in PT/OT/SN/MD. Educated to Medicare approval of 23 days with DC 02/03. Will ReTeam next week to finalize DC plans, but pt is progressing well and goal is DC home with . SW educated to skilled HHC vs OP therapy. Family denied DME needs. Offered therapy and colostomy training to . The goal is for pt and to feel comfortable for a smooth DC home. Encouraged to notify this worker if she has any concerns with DC. SW will continue to follow. Irene Noel [employer]
[2025-01-22 17:45] VITALS: BP 102/49; PULSE 76; RESP 14; TEMP 36.6; O2SAT 98
[2025-01-22 20:47] VITALS: BP 133/60; PULSE 83; RESP 20; TEMP 36.5; O2SAT 97
[2025-01-22] MEDS: Insulin Glargine-YFGN 100 UNIT/ML Pen 10 UNIT SC (21:13)
[2025-01-22 22:00] VITALS: RESP 20
[2025-01-23 03:23] VITALS: BMI 26.4
[2025-01-23] MEDS: Psyllium 1 PACKET PO ×3 (06:12→21:06)
[2025-01-23] MEDS: Isosorbide DN 10 MG Tablet PO ×3 (06:12→16:33)
[2025-01-23 06:30] VITALS: BP 126/62; PULSE 82; RESP 20; TEMP 36.7; O2SAT 96
[2025-01-23] MEDS: Insulin Glargine-YFGN 100 UNIT/ML Pen 16 UNIT SC (08:04)
[2025-01-23] MEDS: Arthritis Pain Compound 60 CLICK TUBE TOPICAL ×2 (08:05→21:07)
[2025-01-23] MEDS: Magnesium Chloride 64 MG Delay Rel.Tablet PO (08:06)
[2025-01-23] MEDS: Heparin Injection (Vial) 5,000 UNIT/ML VIAL 5000 UNIT SC ×2 (08:06→21:07)
--- NOTE | 2025-01-23 09:45 | PN_ITS ---
Subjective Subjective Afebrile VSS -denies lightheadedness Maintaining appropriate oxygen saturation on RA Oral intake - FOOD good FLUIDS fluid balance yesterday was reported is - 1130. He had 1100 cc of stool. Even though he seen negative fluid balance almost every day his weight is up to 159 pounds and he has swelling in his ankles today. The blood sugar record was reviewed. Blood sugars are all under 200 recently with no hypoglycemia. Discussed with nursing - no problems that need addressed Reviewed the THERAPY notes Medication list reviewed. C/O a tickle in his throat. Has some localized wheezing only over the trachea. He has some DUMONT today with stair climbing. Denies chest pain, palpitations, nausea/vomiting/abdominal pain, calf pain and lightheadedness. Objective Data Objective Data Vital Signs: Vital Signs Temp Pulse Resp BP Pulse Ox O2 Del Method 98.1 F 82 20 H 126/62 H 96 Room Air 01/23/25 06:30 01/23/25 06:30 01/23/25 06:30 01/23/25 06:30 01/23/25 06:30 01/23/25 06:30 Oxygen Delivery Method Room Air Weight: 159 lb Body Mass Index (BMI) 26.4 Intake & Output: Intake and Output for Last 24 Hours 01/21/25 01/22/25 01/23/25 23:59 23:59 23:59 Intake Total 690 / 690 1620 / 1620 410 / 410 Output Total 3590 / 3590 2750 / 2750 300 / 300 Balance -2900 / -2900 -1130 / -1130 110 / 110 Medical Nutrition Assessment Dietitian: Malnutrition Criteria Met Start: 01/12/25 12:44 Freq: Status: Active Protocol: Document 01/15/25 10:00 [facility] (Rec: 01/15/25 10:00 [facility] [id number]) Nutrition Malnutrition Evidence of Yes Malnutrition Exists Evidenced By Suboptimal Energy Intake (Severe),Weight Loss (Severe), Physical Changes (Moderate) Clinical Problem Acute Disease or Injury Related Malnutrition Etiology r/t acute illness and recent surgeries and suboptimal energy intake Signs/Symptoms as evidenced by po intake meeting <75% of estimated nutritional needs and 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 Patino- soft and bite sized Changes consistency Will continue Nepro CHO Steady tid w/ meals for additional abel/pro if consumed. Continue appetite stimulant as ordered Continue to follow and monitor for changes in pt nutritional status and make additional rec as indicated . Lab / Micro Data 01/21/25 04:35 01/21/25 04:35 Labs: Laboratory Results - last 24 hr 01/22/25 11:33: POC Glucose 119 H 01/22/25 16:38: POC Glucose 163 H 01/22/25 21:00: POC Glucose 193 H 01/23/25 06:30: POC Glucose 118 H Micro: Microbiology 01/19/25 10:50 Stool Clostridioides difficile (PCR) - Final 01/19/25 10:50 Stool Enteric Bacteriology - Final 01/19/25 10:00 Stool Stool Lactoferrin - Final 01/19/25 10:50 Stool Stool Occult Blood (RYLEE) - Final Occult Blood Positive 01/11/25 21:20 Stool Stool Occult Blood (RYLEE) - Final Physical Exam Const alert, oriented x3 and no apparent distress Constitutional Narrative: Lying in bed when I examined him. Head of the bed is at approximately 30 degrees and he is not tachypneic or complaining of shortness of breath. Resp Resp Narrative: He has bibasilar crackles. No wheezing. Not tachypneic. No conversational dyspnea. Cardio regular rate, regular rhythm, no rub and no gallops GI normal to inspection, nondistended, normoactive bowel sounds and soft to palpation GI Narrative: No guarding with palpation Extremity no calf tenderness Extremity Narrative: He has pitting edema of the ankles today which is new. Skin Rashes: no rashes Assessment & Plan Assessment/Plan (1) Debility: (2) History of right hemicolectomy: (3) History of ileostomy: (4) History of partial colectomy: (5) Postoperative abscess: (6) H/O drainage of abscess: (7) Acute renal failure superimposed on stage 4 chronic kidney disease: QUALIFIERS: Acute renal failure type: unspecified Qualified Code(s): N17.9 - Acute kidney failure, unspecified; N18.4 - Chronic kidney disease, stage 4 (severe) (8) CKD (chronic kidney disease), stage IV: (9) Orthostatic hypotension: (10) Anemia: QUALIFIERS: Anemia type: unspecified type Qualified Code(s): D 64.9 - Anemia, unspecified (11) Dysphagia, oropharyngeal: (12) Cognitive dysfunction: (13) Other severe protein-calorie malnutrition: (14) Hypomagnesemia: (15) Myocardial infarction due to demand ischemia: (16) Cardiomyopathy: QUALIFIERS: Cardiomyopathy type: unspecified Qualified Code(s): I 42.9 - Cardiomyopathy, unspecified (17) Severe aortic stenosis: (18) Urinary retention: (19) BPH (benign prostatic hyperplasia): QUALIFIERS: Lower urinary tract symptom presence: symptoms present Lower urinary tract symptom detail: urinary retention Qualified Code(s): N40.1 - Benign prostatic hyperplasia with lower urinary tract symptoms; R33.8 - Other retention of urine (20) Essential (primary) hypertension: (21) History of diabetes mellitus: (22) Depression: QUALIFIERS: Depression Type: reactive depression Qualified Code(s): F32.9 - Major depressive disorder, single episode, unspecified (23) Heme positive stool: PLAN: Plan 1. Continue therapy 2. Add a BNP to the lab being drawn tomorrow 3. Lasix 40 mg p.o. today. Continue with daily weights and intake and output. If he is still SOB tomorrow will order a PA and lat CXR Charges/Coding Visit Charges Inpatient E&M: 54738 Subs Hosp L1
[2025-01-23 14:08] LABS: Calprotectin, Stool 34 ug/g (0-120)
--- NOTE | 2025-01-23 15:02 | WOUNDNOTE ---
Ostomy appliance changed. peristomal skin is intact. pt has been emptying the appliance. Pt has been observing each appliance change and has watched this nurse as well. Pt states he still feels like they may need some home health care when they go home. will continue teaching with patient and and have them change appliance prior to discharging home.
[2025-01-23 17:07] VITALS: BP 117/59; PULSE 80; RESP 17; TEMP 36.7
[2025-01-23] MEDS: Insulin Glargine-YFGN 100 UNIT/ML Pen 10 UNIT SC (21:32)
[2025-01-23] MEDS: 0.9% Saline Lock 10 ML Syringe IV (22:22)
[2025-01-24] MEDS: Psyllium 1 PACKET PO ×3 (05:43→22:09)
[2025-01-24 05:56] VITALS: BMI 26.7
[2025-01-24 06:00] VITALS: BP 104/65; PULSE 80; RESP 17; TEMP 36.4; O2SAT 96
[2025-01-24 06:07] LABS: Hematocrit 24.1 % (40-54); Hemoglobin 7.7 g/dL (13.0-16.5)
[2025-01-24] MEDS: Isosorbide DN 10 MG Tablet PO ×3 (06:08→16:26)
[2025-01-24 06:32] LABS: Anion Gap 12 (5-15); BUN 47 mg/dL (4-19); BUN/Creat Ratio 21.8 RATIO (10-20); Calcium,Total 8.9 mg/dL (7.6-11.0); Carbon Dioxide 18.9 mmol/L (21.0-32.0); Chloride 105 mmol/L (98-108); Estimated Creatinine Clearance 24.52 ml/min (50-250); Glucose 104 mg/dL (70-99); Potassium 5.1 mmol/L (3.3-5.1)
[2025-01-24 07:23] LABS: Pro- Brain NATRIURETIC PEPTIDE 18082 pg/mL (<=1800)
[2025-01-24] MEDS: Magnesium Chloride 64 MG Delay Rel.Tablet PO (07:54)
[2025-01-24] MEDS: Insulin Glargine-YFGN 100 UNIT/ML Pen 16 UNIT SC (07:55)
[2025-01-24] MEDS: Heparin Injection (Vial) 5,000 UNIT/ML VIAL 5000 UNIT SC ×2 (07:56→22:16)
[2025-01-24] MEDS: Arthritis Pain Compound 60 CLICK TUBE TOPICAL ×2 (08:04→22:15)
--- NOTE | 2025-01-24 09:04 | PCM.PROGNOTE ---
Subjective Subjective Afebrile VSS -orthostatics are negative today. Blood pressure is well-controlled. Heart rate is within normal limits. Maintaining appropriate oxygen saturation on RA Oral intake - FOOD good FLUIDS oral fluid intake is listed as 1270 yesterday which is less than I would like it to be however he did have some increased edema of his legs and crackles in both lungs yesterday so we gave Lasix. The stool amount yesterday was 700 cc and urine output was 1075. Overnight he had 800 and urine in 250 in stool. Despite negative fluid balance yesterday his weight went up so question the validity of the weights and the I&O. Discussed with nursing - no problems that need addressed Reviewed the THERAPY notes Medication list reviewed. All lab from this morning was personally reviewed. The hemoglobin is 7.7 which is down from 8.2 on 01/21/2025. Sodium is 135 and the potassium today is 5.1. Serum bicarb is 18.9 and that is off bicarb tabs. Creatinine is 2.16 which is up from 1.88 on 01/21/2025. The BUN is 47. Phosphorus is mildly increased at 4.6. BNP is 18,082 He is not SOB at rest. Denies CP, palpitations, orthopnea and PND. He c/o some soreness in his throat, rhinitis, dry cough. Tells me that he was on something for allergies in the past. Objective Data Objective Data Vital Signs: Vital Signs Temp Pulse Resp BP Pulse Ox O2 Del Method 97.6 F L 80 17 104/65 96 Room Air 01/24/25 06:00 01/24/25 06:00 01/24/25 06:00 01/24/25 06:00 01/24/25 06:00 01/24/25 06:00 Oxygen Delivery Method Room Air Weight: 160 lb 11.472 oz Body Mass Index (BMI) 26.7 Intake & Output: Intake and Output for Last 24 Hours 01/22/25 01/23/25 01/24/25 23:59 23:59 23:59 Intake Total 1620 / 1620 1270 / 1270 360 / 360 Output Total 2750 / 2750 1775 / 1775 1050 / 1050 Balance -1130 / -1130 -505 / -505 -690 / -690 Medical Nutrition Assessment Dietitian: Malnutrition Criteria Met Start: 01/12/25 12:44 Freq: Status: Active Protocol: Document 01/15/25 10:00 [facility] (Rec: 01/15/25 10:00 [facility] [id number]) Nutrition Malnutrition Evidence of Yes Malnutrition Exists Evidenced By Suboptimal Energy Intake (Severe),Weight Loss (Severe), Physical Changes (Moderate) Clinical Problem Acute Disease or Injury Related Malnutrition Etiology r/t acute illness and recent surgeries and suboptimal energy intake Signs/Symptoms as evidenced by po intake meeting <75% of estimated nutritional needs and 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 Patino- soft and bite sized Changes consistency Will continue Nepro CHO Steady tid w/ meals for additional aebl/pro if consumed. Continue appetite stimulant as ordered Continue to follow and monitor for changes in pt nutritional status and make additional rec as indicated . Lab / Micro Data 01/24/25 05:08 01/24/25 05:08 Labs: Laboratory Results - last 24 hr 01/19/25 10:50: Stool Calprotectin 34 01/23/25 11:00: POC Glucose 136 H 01/23/25 16:09: POC Glucose 168 H 01/23/25 21:29: POC Glucose 96 01/24/25 05:08: Hgb 7.7 L, Hct 24.1 L, Sodium 135, Potassium 5.1, Chloride 105, Carbon Dioxide 18.9 L, Anion Gap 12, BUN 47 H, Creatinine 2.16 H, Estim Creat Clear Calc 24.52 L, Est GFR (MDRD) Non-Af 31 L, BUN/Creatinine Ratio 21.8 H, Glucose 104 H, Calcium 8.9, Phosphorus 4.6 H, [place] [address] H 01/24/25 06:11: POC Glucose 97 Micro: Microbiology 01/19/25 10:50 Stool Clostridioides difficile (PCR) - Final 01/19/25 10:50 Stool Enteric Bacteriology - Final 01/19/25 10:00 Stool Stool Lactoferrin - Final 01/19/25 10:50 Stool Stool Occult Blood (RYLEE) - Final Occult Blood Positive 01/11/25 21:20 Stool Stool Occult Blood (RYLEE) - Final Physical Exam Const alert, oriented x3 and no apparent distress General Appearance: cooperative Resp Resp Narrative: Coarse crackles in both bases that do not clear after several deep breaths. Chest x-ray is chronic increased interstitial markings in the bases likely secondary to some scarring. No wheezing. No conversational dyspnea. Not tachypneic. Denies shortness of breath at rest. Has some shortness of breath with exertion, especially stair climbing. Good air exchange. Normal respiratory rate at rest. Denies orthopnea and paroxysmal nocturnal dyspnea. Cardio regular rate, regular rhythm and no rub GI normal to inspection, nondistended, normoactive bowel sounds, soft to palpation and non-tender Extremity Extremity Narrative: Less edema in the ankles today. No significant pretibial edema. No calf tenderness. No pitting edema in the flanks. Skin Rashes: no rashes Wound Narrative: Denies pruritus Neuro CN's II-XII intact bilaterally and no focal motor deficits Speech: speech normal Psych cooperative and affect normal Psych Narrative: Good eye contact. sleeping well at night. Good appetite. interacting with staff well and very outgoing. Appearance: appropriate Assessment & Plan Assessment/Plan (1) Cough: QUALIFIERS: Cough type: acute Qualified Code(s): R05.1 - Acute cough (2) Debility: (3) History of right hemicolectomy: (4) History of ileostomy: (5) History of partial colectomy: (6) Postoperative abscess: (7) H/O drainage of abscess: (8) Acute renal failure superimposed on stage 4 chronic kidney disease: QUALIFIERS: Acute renal failure type: unspecified Qualified Code(s): N17.9 - Acute kidney failure, unspecified; N18.4 - Chronic kidney disease, stage 4 (severe) (9) CKD (chronic kidney disease), stage IV: (10) Orthostatic hypotension: (11) Anemia: QUALIFIERS: Anemia type: unspecified type Qualified Code(s): D64.9 - Anemia, unspecified (12) Dysphagia, oropharyngeal: (13) Cognitive dysfunction: (14) Other severe protein-calorie malnutrition: (15) Hypomagnesemia: (16) Myocardial infarction due to demand ischemia: (17) Cardiomyopathy: QUALIFIERS: Cardiomyopathy type: unspecified Qualified Code(s): I42.9 - Cardiomyopathy, unspecified (18) Severe aortic stenosis: (19) Urinary retention: (20) BPH (benign prostatic hyperplasia): QUALIFIERS: Lower urinary tract symptom presence: symptoms present Lower urinary tract symptom detail: urinary retention Qualified Code(s): N40.1 - Benign prostatic hyperplasia with lower urinary tract symptoms; R33.8 - Other retention of urine (21) Essential (primary) hypertension: (22) History of diabetes mellitus: (23) Depression: QUALIFIERS: Depression Type: reactive depression Qualified Code(s): F32.9 - Major depressive disorder, single episode, unspecified (24) Heme positive stool: PLAN: Plan 1. Continue therapy 2. Lasix 40 mg p.o. today. Now that the stool output is better controlled may need to start a daily dose of Lasix. He has severe and his last ECHO showed an EF of 35%. Lasix will also help to manage the Hyperkalemia. Continue K restricted diet. Will need to follow up with nephrology following DC from rehab. 3. I am good with the current stool output........no change to the meds to treat the high ileostomy OP...continue to monitor. 4. Only scale weights going forward.......no more bed weights.....I do not feel they are as accurate as scale weights. Continue I&O. 5. Will need follow up with cardiology post DC from rehab 6. Resume Flomax 0.4 mg daily. If he tolerates this we will do a voiding trial in 5 to 7 days. 7. Add phosphorus restriction to the current diet 8. Start calcium acetate 667 mg 3 times daily with meals. 9. Recheck a renal profile and HH on Wednesday 10. I suspect the drop in HGB is due to volume overload and not ongoing blood loss. No need for transfusion at this time. 11. Start Atrovent nasal spray 2 sprays each nostril twice daily 12. Check a respiratory panel, COVID today. Charges/Coding Visit Charges Inpatient E&M: 98859 Subs Hosp L2
--- NOTE | 2025-01-24 09:43 | RAD_ITS ---
PROCEDURE: CHEST PA AND LATERAL 01/24/2025 REASON FOR EXAM: SOB/BIBASILAR CRACKLES. TECHNIQUE: CHEST PA AND LATERAL COMPARISON: 01/07/2025 FINDINGS: Hardware: A right-sided PICC line has been placed since the previous study, tip is in the distal SVC. Heart: The heart size is normal. Mediastinum: The mediastinal contour is unremarkable. Lungs: Lungs are mildly hyperexpanded, with stable interstitial changes in both lower lung lucero. No interval change since the previous study. Bones: Old healed left rib fractures RAD/Chest PA and Lateral IMPRESSION: Mildly hyperexpanded lungs with chronic interstitial changes, no interval joshi e since the previous study Right-sided PICC line has been placed, tip is in the distal SVC Reading Location: [id number]
[2025-01-24 10:04] VITALS: BP 128/55; BP 129/60; BP 137/56; PULSE 91; PULSE 92; PULSE 94
[2025-01-24] MEDS: 0.9% Saline Lock 10 ML Syringe IV ×2 (11:10→22:40)
[2025-01-24 18:00] VITALS: BP 118/55; PULSE 98; RESP 17; TEMP 36.8; O2SAT 95
[2025-01-24] MEDS: Insulin Glargine-YFGN 100 UNIT/ML Pen 10 UNIT SC (22:17)
[2025-01-25 05:50] VITALS: BP 110/68; PULSE 68; RESP 15; TEMP 36.6; O2SAT 97; BMI 26.2
[2025-01-25] MEDS: Psyllium 1 PACKET PO ×3 (05:52→21:05)
[2025-01-25] MEDS: Isosorbide DN 10 MG Tablet PO ×3 (06:13→17:22)
[2025-01-25] MEDS: Insulin Glargine-YFGN 100 UNIT/ML Pen 16 UNIT SC ×2 (06:14→08:18)
--- NOTE | 2025-01-25 07:53 | PN_ITS ---
Subjective Subjective Afebrile VSS - orthostatics are negative. He denies lightheadedness Maintaining appropriate oxygen saturation on RA Oral intake - FOOD good FLUIDS good. He had 2250 cc of urine out yesterday and 850 cc of stool. The blood sugar record was reviewed. Weight today is 157 pounds and 3 ounces which is down from 160 pounds and 11 ounces yesterday. Discussed with nursing - Having soreness at the tip of the penis per nursing. Reviewed the THERAPY notes Medication list reviewed. Denies orthopnea, paroxysmal nocturnal dyspnea, palpitations, chest pain, cough, nausea/vomiting/abdominal pain, calf pain. He is c/o pain in the penis.....it is localized to the dorsal side of the penis just proximal to the rim of the head. It hurts to touch. Objective Data Objective Data Vital Signs: Vital Signs Temp Pulse Resp BP Pulse Ox O2 Del Method 97.8 F 68 15 110/68 97 Room Air 01/25/25 05:50 01/25/25 05:50 01/25/25 05:50 01/25/25 05:50 01/25/25 05:50 01/25/25 05:50 Oxygen Delivery Method Room Air Weight: 157 lb 3.033 oz Body Mass Index (BMI) 26.2 Intake & Output: Intake and Output for Last 24 Hours 01/23/25 01/24/25 01/25/25 23:59 23:59 23:59 Intake Total 1270 / 1270 1460 / 1460 300 / 300 Output Total 1775 / 1775 3100 / 3100 1000 / 1000 Balance -505 / -505 -1640 / -1640 -700 / -700 Medical Nutrition Assessment Dietitian: Malnutrition Criteria Met Start: 01/12/25 12:44 Freq: Status: Active Protocol: Document 01/15/25 10:00 [facility] (Rec: 01/15/25 10:00 [facility] [id number]) Nutrition Malnutrition Evidence of Yes Malnutrition Exists Evidenced By Suboptimal Energy Intake (Severe),Weight Loss (Severe), Physical Changes (Moderate) Clinical Problem Acute Disease or Injury Related Malnutrition Etiology r/t acute illness and recent surgeries and suboptimal energy intake Signs/Symptoms as evidenced by po intake meeting <75% of estimated nutritional needs and 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 Patino- soft and bite sized Changes consistency Will continue Nepro CHO Steady tid w/ meals for additional abel/pro if consumed. Continue appetite stimulant as ordered Continue to follow and monitor for changes in pt nutritional status and make additional rec as indicated . Lab / Micro Data 01/24/25 05:08 01/24/25 05:08 Labs: Laboratory Results - last 24 hr 01/24/25 11:05: POC Glucose 187 H 01/24/25 15:50: POC Glucose 227 H 01/24/25 22:14: POC Glucose 77 01/25/25 06:12: POC Glucose 73 L Micro: Microbiology 01/24/25 13:05 Mucosa - Nasopharyngeal Respiratory Panel (PCR) - Final 01/24/25 10:19 Nasal Secretion SARS-CoV-2 Antigen (Rapid) - Final 01/19/25 10:50 Stool Clostridioides difficile (PCR) - Final 01/19/25 10:50 Stool Enteric Bacteriology - Final 01/19/25 10:00 Stool Stool Lactoferrin - Final 01/19/25 10:50 Stool Stool Occult Blood (RYLEE) - Final Occult Blood Positive 01/11/25 21:20 Stool Stool Occult Blood (RYLEE) - Final Radiography Diagnostic Testing: Radiology Impression Chest X-Ray 01/24/25 09:43 IMPRESSION: Mildly hyperexpanded lungs with chronic interstitial changes, no interval change since the previous study Right-sided PICC line has been placed, tip is in the distal SVC Reading Location: [facility] Physical Exam Const alert, oriented x3 and no apparent distress Constitutional Narrative: /Down in bed with no complaints of shortness of breath. No orthopnea, no paroxysmal nocturnal dyspnea last night. General Appearance: cooperative Resp Resp Narrative: Coarse crackles in the bases unchanged over the past few days..........no fine crackles and no wheezing. No conversational dyspnea. Occasional cough......worse at night and when lying down. Not tachypneic. Cleared his throat only once when I was in the room.......no real cough....I was with him for 25 minutes. Cardio regular rate, regular rhythm, no rub and no gallops Cardio Narrative: No ectopy GI normal to inspection, nondistended, normoactive bowel sounds and soft to palpation GI Narrative: no guarding with palpation. He has some redness and a little moist white DC on the dorsal surface of the penis between the glans and the shaft. Appears to be a little fungal infection. NO redness of the urethral opening and no DC from the urethra. He is circumcised. The glans has no lesions. Extremity no calf tenderness Extremity Narrative: Very small amount of ankle edea, L>R. No pretibial edema. Increased edema at the end of the day. CRISTIAN hose are in place. Skin Rashes: no rashes Psych cooperative Psych Narrative: Making good eye contact with me and he is engaged in the conversation. Appearance: appropriate Attitude: No agitated Assessment & Plan Assessment/Plan (1) Cough: QUALIFIERS: Cough type: acute Qualified Code(s): R05.1 - Acute cough (2) Debility: (3) History of right hemicolectomy: (4) History of ileostomy: (5) CKD (chronic kidney disease), stage IV: (6) Orthostatic hypotension: (7) Anemia: QUALIFIERS: Anemia type: unspecified type Qualified Code(s): D 64.9 - Anemia, unspecified (8) Dysphagia, oropharyngeal: (9) Cognitive dysfunction: (10) Other severe protein-calorie malnutrition: (11) Cardiomyopathy: QUALIFIERS: Cardiomyopathy type: unspecified Qualified Code(s): I 42.9 - Cardiomyopathy, unspecified (12) Severe aortic stenosis: (13) Urinary retention: (14) BPH (benign prostatic hyperplasia): QUALIFIERS: Lower urinary tract symptom presence: symptoms present Lower urinary tract symptom detail: urinary retention Qualified Code(s): N40.1 - Benign prostatic hyperplasia with lower urinary tract symptoms; R33.8 - Other retention of urine (15) Essential (primary) hypertension: (16) History of diabetes mellitus: (17) Depression: QUALIFIERS: Depression Type: reactive depression Qualified Code(s): F32.9 - Major depressive disorder, single episode, unspecified (18) Heme positive stool: (19) Candidiasis, intertrigo: PLAN: Plan 1. Continue therapy 2. Decrease glargine at at bedtime to 8 units. Decrease the lispro with supper to 6 units. Continue to monitor blood sugars AC and at bedtime. 3. Continue daily scale weights. 4. No Lasix needed today and the wt has decreased a few pounds with the previous doses of Lasix. Will keep Lasix PRN now for increase in weight, orthopnea and increasing ankle edema. 5. Miconazole twice daily x 5 days 6. Renal profile and HH on Wednesday Met with Everardo's family and answered their questions. We talked about CM, , CRF, etc. Recommended he follow up with IM doc at [facility] because he is so complicated. 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 The troponin elevation was mild and thought to be due to to demand ischemia. Charges/Coding Visit Charges Inpatient E&M: 02371 Subs Hosp L1
[2025-01-25] MEDS: Arthritis Pain Compound 60 CLICK TUBE TOPICAL ×2 (08:16→21:12)
[2025-01-25] MEDS: Magnesium Chloride 64 MG Delay Rel.Tablet PO (08:17)
[2025-01-25] MEDS: Heparin Injection (Vial) 5,000 UNIT/ML VIAL 5000 UNIT SC ×2 (08:17→21:06)
[2025-01-25] MEDS: 0.9% Saline Lock 10 ML Syringe IV ×2 (08:26→21:23)
[2025-01-25 10:27] VITALS: BP 119/58; BP 125/60; BP 133/64; PULSE 100; PULSE 89; PULSE 91
[2025-01-25 10:28] VITALS: BMI 26.5
[2025-01-25] MEDS: Miconazole Nitrate Cream 1 APPLIC TOPICAL ×2 (12:00→21:13)
[2025-01-25 17:45] VITALS: BP 130/59; PULSE 91; RESP 16; TEMP 37.2; O2SAT 96
[2025-01-25] MEDS: Insulin Glargine-YFGN 100 UNIT/ML Pen 8 UNIT SC (21:18)
[2025-01-26 06:00] VITALS: BP 121/58; PULSE 86; RESP 20; TEMP 36.5; O2SAT 96; BMI 26.2
[2025-01-26] MEDS: Isosorbide DN 10 MG Tablet PO ×3 (06:43→17:24)
[2025-01-26] MEDS: Psyllium 1 PACKET PO ×3 (06:43→21:01)
[2025-01-26] MEDS: Miconazole Nitrate Cream 1 APPLIC TOPICAL ×2 (08:29→21:02)
[2025-01-26] MEDS: Arthritis Pain Compound 60 CLICK TUBE TOPICAL ×2 (08:30→21:02)
[2025-01-26] MEDS: Heparin Injection (Vial) 5,000 UNIT/ML VIAL 5000 UNIT SC ×2 (08:30→21:02)
[2025-01-26] MEDS: Magnesium Chloride 64 MG Delay Rel.Tablet PO (08:31)
[2025-01-26 18:00] VITALS: BP 96/53; PULSE 77; RESP 17; TEMP 36.3; O2SAT 96
[2025-01-26] MEDS: Insulin Glargine-YFGN 100 UNIT/ML Pen 8 UNIT SC (21:11)
[2025-01-26] MEDS: 0.9% Saline Lock 10 ML Syringe IV (21:19)
--- NOTE | 2025-01-27 00:40 | NURSING ---
Pt in depressed mood this tomas. Thinking alot about his childhood, stress factors in his life he is having a time dealing with years later. Reassurance provided. Encouraged pt to talk with Dr. Patino.
[2025-01-27 06:00] VITALS: BP 126/62; PULSE 87; RESP 16; TEMP 37.1; O2SAT 95; BMI 26.5
[2025-01-27] MEDS: Psyllium 1 PACKET PO ×3 (06:23→21:12)
[2025-01-27] MEDS: Isosorbide DN 10 MG Tablet PO ×3 (06:23→16:28)
[2025-01-27 07:36] LABS: Hematocrit 25.0 % (40-54); Hemoglobin 8.3 g/dL (13.0-16.5)
[2025-01-27] MEDS: Arthritis Pain Compound 60 CLICK TUBE TOPICAL ×2 (08:05→21:10)
[2025-01-27] MEDS: Miconazole Nitrate Cream 1 APPLIC TOPICAL ×2 (08:05→21:12)
[2025-01-27] MEDS: Heparin Injection (Vial) 5,000 UNIT/ML VIAL 5000 UNIT SC ×2 (08:06→21:11)
[2025-01-27] MEDS: Insulin Glargine-YFGN 100 UNIT/ML Pen 16 UNIT SC (08:07)
[2025-01-27] MEDS: Magnesium Chloride 64 MG Delay Rel.Tablet PO (08:08)
[2025-01-27 09:05] LABS: Albumin, Serum 3.0 g/dL (3.4-4.8); Anion Gap 11 (5-15); BUN 51 mg/dL (4-19); BUN/Creat Ratio 23.6 RATIO (10-20); Calcium,Total 9.2 mg/dL (7.6-11.0); Carbon Dioxide 19.1 mmol/L (21.0-32.0); Chloride 104 mmol/L (98-108); Estimated Creatinine Clearance 24.52 ml/min (50-250); Glucose 151 mg/dL (70-99); Potassium 5.3 mmol/L (3.3-5.1)
--- NOTE | 2025-01-27 13:01 | NURSING ---
Per - verbal ok to override dosage warning when entering Kayexalate
--- NOTE | 2025-01-27 16:14 | NURSING ---
Called received from Dr. Patino RE: new orders. Order for calcium acetate needs clarified. wanted current order reduced from 3 capsules TID to 2 capsules TID. However, the current order is only 1 capsule TID. Left message on cell.
[2025-01-27 17:03] VITALS: BP 113/56; PULSE 89; RESP 16; TEMP 36.9; O2SAT 95
[2025-01-27] MEDS: Insulin Glargine-YFGN 100 UNIT/ML Pen 8 UNIT SC (21:25)
[2025-01-27] MEDS: 0.9% Saline Lock 10 ML Syringe IV (21:33)
[2025-01-28 06:00] VITALS: BP 138/64; PULSE 78; RESP 15; TEMP 36.5; O2SAT 93; BMI 25.7
[2025-01-28] MEDS: Psyllium 1 PACKET PO ×3 (06:18→21:12)
[2025-01-28] MEDS: Isosorbide DN 10 MG Tablet PO ×3 (07:57→16:48)
[2025-01-28] MEDS: Insulin Glargine-YFGN 100 UNIT/ML Pen 16 UNIT SC (07:58)
[2025-01-28] MEDS: Heparin Injection (Vial) 5,000 UNIT/ML VIAL 5000 UNIT SC ×2 (09:17→21:12)
[2025-01-28] MEDS: Magnesium Chloride 64 MG Delay Rel.Tablet PO (09:17)
[2025-01-28] MEDS: Miconazole Nitrate Cream 1 APPLIC TOPICAL ×2 (09:18→21:12)
[2025-01-28] MEDS: Arthritis Pain Compound 60 CLICK TUBE TOPICAL ×2 (09:19→21:11)
[2025-01-28 18:00] VITALS: BP 120/58; PULSE 86; RESP 18; TEMP 36.9; O2SAT 94
[2025-01-28] MEDS: Insulin Glargine-YFGN 100 UNIT/ML Pen 8 UNIT SC (21:21)
[2025-01-28] MEDS: 0.9% Saline Lock 10 ML Syringe IV (21:41)
[2025-01-29 06:00] VITALS: BMI 25.7
[2025-01-29] MEDS: Isosorbide DN 10 MG Tablet PO ×3 (06:21→16:54)
[2025-01-29] MEDS: Psyllium 1 PACKET PO ×3 (06:21→20:11)
[2025-01-29 06:34] VITALS: BP 155/77; PULSE 95; RESP 16; TEMP 37.1; O2SAT 96
[2025-01-29] MEDS: Arthritis Pain Compound 60 CLICK TUBE TOPICAL ×2 (08:09→20:10)
[2025-01-29] MEDS: Magnesium Chloride 64 MG Delay Rel.Tablet PO (08:10)
[2025-01-29] MEDS: Miconazole Nitrate Cream 1 APPLIC TOPICAL ×2 (08:10→20:12)
[2025-01-29] MEDS: Heparin Injection (Vial) 5,000 UNIT/ML VIAL 5000 UNIT SC ×2 (08:10→20:12)
[2025-01-29] MEDS: Insulin Glargine-YFGN 100 UNIT/ML Pen 16 UNIT SC (08:11)
--- NOTE | 2025-01-29 08:30 | PCM.PROGNOTE ---
Subjective Subjective Everardo was seen on team rounds today. His Alexia and his son Lauri were present in the room. All questions were answered to their satisfaction. Afebrile VSS -orthostatics were negative today. Maintaining appropriate oxygen saturation on RA Oral intake - FOOD good FLUIDS generally drinking between 1502 L daily. Weight today is 155 pounds which is down from 159 on 01/23/2025. Blood sugars are well-controlled with no hypoglycemia. Fasting blood sugar for the past 2 days has been in the 80s. Discussed with nursing - no problems that need addressed Reviewed the THERAPY notes Medication list reviewed. 10 he complains that he fatigues easily and then he has to sit down because he is a little short of breath. I explained to him that this is to be expected with a cardiomyopathy and severe aortic stenosis and he should just rest when he needs to. He denies orthopnea and paroxysmal nocturnal dyspnea. He denies chest pain, palpitations, lightheadedness, nausea/vomiting/abdominal pain, calf pain. Swelling in his ankles is much improved today. Objective Data Objective Data Vital Signs: Vital Signs Temp Pulse Resp BP Pulse Ox O2 Del Method 98.8 F 95 16 155/77 H 96 Room Air 01/29/25 06:34 01/29/25 06:34 01/29/25 06:34 01/29/25 06:34 01/29/25 06:34 01/29/25 06:34 Oxygen Delivery Method Room Air Weight: 155 lb Body Mass Index (BMI) 25.7 Intake & Output: Intake and Output for Last 24 Hours 01/27/25 01/28/25 01/29/25 23:59 23:59 23:59 Intake Total 1530 / 1530 2107 / 2107 300 / 300 Output Total 4300 / 4300 3300 / 3300 1050 / 1050 Balance -2770 / -2770 -1193 / -1193 -750 / -750 Medical Nutrition Assessment Dietitian: Malnutrition Criteria Met Start: 01/12/25 12:44 Freq: Status: Active Protocol: Document 01/15/25 10:00 [facility] (Rec: 01/15/25 10:00 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 Patino- soft and bite sized Changes consistency Will continue Nepro CHO Steady tid w/ meals for additional abel/pro if consumed. Continue appetite stimulant as ordered Continue to follow and monitor for changes in pt nutritional status and make additional rec as indicated . Lab / Micro Data 01/27/25 07:27 01/27/25 07:27 Labs: Laboratory Results - last 24 hr 01/28/25 11:31: POC Glucose 133 H 01/28/25 16:42: POC Glucose 181 H 01/28/25 21:20: POC Glucose 157 H 01/29/25 06:32: POC Glucose 87 Micro: Microbiology 01/24/25 13:05 Mucosa - Nasopharyngeal Respiratory Panel (PCR) - Final 01/24/25 10:19 Nasal Secretion SARS-CoV-2 Antigen (Rapid) - Final 01/19/25 10:50 Stool Clostridioides difficile (PCR) - Final 01/19/25 10:50 Stool Enteric Bacteriology - Final 01/19/25 10:00 Stool Stool Lactoferrin - Final 01/19/25 10:50 Stool Stool Occult Blood (RYLEE) - Final Occult Blood Positive 01/11/25 21:20 Stool Stool Occult Blood (RYLEE) - Final Physical Exam Const alert and no apparent distress General Appearance: cooperative Resp Resp Narrative: Coarse crackles in the bases but otherwise unchanged. Not tachypneic, no conversational dyspnea and no labored breathing. Cardio regular rate, regular rhythm, no rub and no gallops GI normal to inspection, nondistended, normoactive bowel sounds, soft to palpation and non-tender Extremity no calf tenderness General Extremity: Negative for edema Skin Skin Narrative: He is no longer c/o the pain on the dorsal penile shaft near the glans. The redness has resolved. Psych Psych Narrative: Seems a little down today and he tells me that he is feeling down. He is a little overwhelmed by everything that is going on.....stage 4 renal failure with increased phos and K, CHF with 35% EF, severe (will need a TAVR), urine retention, Killian catheter, diet changes. Sleeping well at night. Tolerating Remeron 15 mg with no adverse side effects. Still sleeping well and eating well. always willing to do therapy. Appearance: appropriate Assessment & Plan Assessment/Plan (1) Cough: QUALIFIERS: Cough type: acute Qualified Code(s): R05.1 - Acute cough (2) Debility: (3) History of right hemicolectomy: (4) History of ileostomy: (5) CKD (chronic kidney disease), stage IV: (6) Orthostatic hypotension: (7) Anemia: QUALIFIERS: Anemia type: unspecified type Qualified Code(s): D64.9 - Anemia, unspecified (8) Dysphagia, oropharyngeal: (9) Cognitive dysfunction: (10) Other severe protein-calorie malnutrition: (11) Cardiomyopathy: QUALIFIERS: Cardiomyopathy type: unspecified Qualified Code(s): I42.9 - Cardiomyopathy, unspecified (12) Severe aortic stenosis: (13) Urinary retention: (14) BPH (benign prostatic hyperplasia): QUALIFIERS: Lower urinary tract symptom presence: symptoms present Lower urinary tract symptom detail: urinary retention Qualified Code(s): N40.1 - Benign prostatic hyperplasia with lower urinary tract symptoms; R33.8 - Other retention of urine (15) Essential (primary) hypertension: (16) History of diabetes mellitus: (17) Depression: QUALIFIERS: Depression Type: reactive depression Qualified Code(s): F32.9 - Major depressive disorder, single episode, unspecified (18) Heme positive stool: (19) Candidiasis, intertrigo: PLAN: Plan 1. Continue therapy 2. Check orthostatics today 3. Renal profile and CBC in a.m. 4. [place] will come in for family training. 5. Family will stay today for diet instruction by baggage porter. 6. Increase the Remeron to 22.5 mg Q HS 7. Try and find out who was going to see him about TAVR. I think he is strong enough to tolerate now. 8. Planning Dc home with [facility] on Wednesday. 9. Needs F/U with Dr. Wilson, CT surgery for TAVR, PCP, cardiology, urology (if we are unable to get the Killian out......does not tolerate Proscar and Flomax due to orthostatic hypotension). IF he needs urologic surgery he would be too high risk to do at [facility]. Charges/Coding Visit Charges Inpatient E&M: 71786 Subs Hosp L2
[2025-01-29 08:32] VITALS: BP 113/58; BP 118/59; BP 128/58; PULSE 102; PULSE 103; PULSE 99
--- NOTE | 2025-01-29 13:14 | CASEMGMT ---
Social Work IDT met with patient, and son for Team meeting. Discussed patient's progress in PT/OT/ST/SN/MD. Educated to Medicare approval of 23 days with DC 02/03. Pt is mod I today to allow practice prior to DC home and build confidence in controlled environment. voices comfort with pt DC home as planned. SW offered to coordinate skilled HHC vs OP and DME. Pt denied DME. Pt prefers HHC then transition to OP therapy. SW offered list of skilled HHC agencies within geographical area, [place] with insurance, that include quality and resource data via [employer] guide. denied and prefers [facility]. SW agreed to place referral. No other needs noted. - SW phoned referral to [facility] PT/OT/SN. Plan: DC home with 02/03, [facility] Irene KEARNEYW
[2025-01-29 18:00] VITALS: BP 142/66; PULSE 93; RESP 16; TEMP 36.6; O2SAT 97
[2025-01-29] MEDS: Insulin Glargine-YFGN 100 UNIT/ML Pen 6 UNIT SC (21:16)
--- NOTE | 2025-01-30 03:15 | NURSING ---
Patient's ileostomy bag came unfastened at the bottom, leaked onto patient's clothing. Appliance changed, patient cleaned up and clothing changed.
[2025-01-30] MEDS: Psyllium 1 PACKET PO ×3 (05:21→20:25)
[2025-01-30 06:00] VITALS: BP 145/68; PULSE 86; RESP 16; TEMP 36.7; O2SAT 95
[2025-01-30 06:42] LABS: Hematocrit 27.5 % (40-54); Hemoglobin 8.9 g/dL (13.0-16.5); Mean Corp Hgb Conc 32.4 g/dL (32-36); Mean Corpuscular Volume 92.0 fL (80-94); Mean Platelet Vol. 10.8 fl (6.2-12.0); Platelet Count 370 K/mm3 (150-450); RBC Distribution Width CV 16.5 % (11.6-14.6); RBC Distribution Width SD 56.1 fl (35.1-43.9); Red Blood Count 2.99 M/mm3 (4.6-6.2); White Blood Count 5.7 K/mm3 (4.4-11.0)
[2025-01-30 07:15] LABS: Anion Gap 11 (5-15); BUN 44 mg/dL (4-19); BUN/Creat Ratio 22.8 RATIO (10-20); Calcium,Total 9.2 mg/dL (7.6-11.0); Carbon Dioxide 21.6 mmol/L (21.0-32.0); Chloride 105 mmol/L (98-108); Estimated Creatinine Clearance 27.44 ml/min (50-250); Glucose 134 mg/dL (70-99); Magnesium 1.4 mg/dL (1.5-2.2); Potassium 4.6 mmol/L (3.3-5.1)
--- NOTE | 2025-01-30 07:48 | PN_ITS ---
Subjective Subjective Afebrile VSS - Maintaining appropriate oxygen saturation on RA Oral intake - FOOD good FLUIDS fair to good. Weight has been stable in the past few days. Stool output yesterday was 550 cc. Overnight he had 500. The blood sugar record was reviewed. Blood sugars are well-controlled with no hypoglycemia. Fasting blood sugar was 120 today. Discussed with nursing - no problems that need addressed Reviewed the THERAPY notes Medication list reviewed. All lab drawn this morning was personally reviewed. The white blood cell count is 5.7. Hemoglobin is stable at 8.9 and platelets are within normal limits. Sodium is 137 and the potassium is 4.6 today. Serum bicarb is normal. Creatinine is 1.93, down from 2.16 on 01/24/2025 and 01/27/2025. Calcium is normal at 9.2 and the phosphorus is normal today at 4.1. Magnesium is low at 1.4. Objective Data Objective Data Vital Signs: Vital Signs Temp Pulse Resp BP Pulse Ox O2 Del Method 98.1 F 86 16 145/68 H 95 Room Air 01/30/25 06:00 01/30/25 06:00 01/30/25 06:00 01/30/25 06:00 01/30/25 06:00 01/30/25 06:00 Oxygen Delivery Method Room Air Weight: 154 lb 15.759 oz Body Mass Index (BMI) 25.7 Intake & Output: Intake and Output for Last 24 Hours 01/28/25 01/29/25 01/30/25 23:59 23:59 23:59 Intake Total 2107 / 2107 1500 / 1500 Output Total 3300 / 3300 2049 / 2049 500 / 500 Balance -1193 / -1193 -550 / -550 -500 / -500 Medical Nutrition Assessment Dietitian: Malnutrition Criteria Met Start: 01/12/25 12:44 Freq: Status: Active Protocol: Document 01/15/25 10:00 [facility] (Rec: 01/15/25 10:00 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 Patino- soft and bite sized Changes consistency Will continue Nepro CHO Steady tid w/ meals for additional abel/pro if consumed. Continue appetite stimulant as ordered Continue to follow and monitor for changes in pt nutritional status and make additional rec as indicated . Lab / Micro Data 01/30/25 06:13 01/30/25 06:13 Labs: Laboratory Results - last 24 hr 01/29/25 10:58: POC Glucose 172 H 01/29/25 16:56: POC Glucose 177 H 01/29/25 21:09: POC Glucose 159 H 01/30/25 05:18: POC Glucose 120 H 01/30/25 06:13: WBC 5.7, RBC 2.99 L, Hgb 8.9 L, Hct 27.5 L, MCV 92.0, MCH 29.8, MCHC 32.4, RDW Std Deviation 56.1 H, RDW Coeff of Disha 16.5 H, Plt Count 370, MPV 10.8, Sodium 137, Potassium 4.6, Chloride 105, Carbon Dioxide 21.6, Anion Gap 11, BUN 44 H, Creatinine 1.93 H, Estim Creat Clear Calc 27.44 L, Est GFR (MDRD) Non-Af 35 L, BUN/Creatinine Ratio 22.8 H, Glucose 134 H, Calcium 9.2, Phosphorus 4.1, Magnesium 1.4 L Micro: Microbiology 01/24/25 13:05 Mucosa - Nasopharyngeal Respiratory Panel (PCR) - Final 01/24/25 10:19 Nasal Secretion SARS-CoV-2 Antigen (Rapid) - Final 01/19/25 10:50 Stool Clostridioides difficile (PCR) - Final 01/19/25 10:50 Stool Enteric Bacteriology - Final 01/19/25 10:00 Stool Stool Lactoferrin - Final 01/19/25 10:50 Stool Stool Occult Blood (RYLEE) - Final Occult Blood Positive 01/11/25 21:20 Stool Stool Occult Blood (RYLEE) - Final Physical Exam Const alert and no apparent distress General Appearance: cooperative Resp Resp Narrative: coarse crackles in both lungs about 1/3-1/[address] the posterior lung lucero. No wheezing. Not coughing. Denies PND and orthopnea. Not tachypneic, no conversational dyspnea and no labored breathing. Cardio regular rate, regular rhythm, no rub and no gallops Cardio Narrative: No change in the MM. GI normal to inspection, nondistended, normoactive bowel sounds, soft to palpation and non-tender GI Narrative: OP from the ileostomy is stable and he is able to stay hydrated. Extremity no calf tenderness General Extremity: Negative for edema Skin Skin Narrative: Today he is c/o pain at the tip of the penis. There is no DC and no redness of the urethral opening. I suspect the pain is is from traction on the catheter at times. the redness and small amount of DC on the dorsal surface at the junction between the shaft and glans has completley resolved and he is no longer c/o pain. Psych Psych Narrative: more upbeat today. Excited about going home. Appearance: appropriate Assessment & Plan Assessment/Plan (1) Cough: QUALIFIERS: Cough type: acute Qualified Code(s): R05.1 - Acute cough (2) Debility: (3) History of right hemicolectomy: (4) History of ileostomy: (5) CKD (chronic kidney disease), stage IV: (6) Orthostatic hypotension: (7) Anemia: QUALIFIERS: Anemia type: unspecified type Qualified Code(s): D 64.9 - Anemia, unspecified (8) Dysphagia, oropharyngeal: (9) Cognitive dysfunction: (10) Other severe protein-calorie malnutrition: (11) Cardiomyopathy: QUALIFIERS: Cardiomyopathy type: unspecified Qualified Code(s): I 42.9 - Cardiomyopathy, unspecified (12) Severe aortic stenosis: (13) Urinary retention: (14) BPH (benign prostatic hyperplasia): QUALIFIERS: Lower urinary tract symptom presence: symptoms present Lower urinary tract symptom detail: urinary retention Qualified Code(s): N40.1 - Benign prostatic hyperplasia with lower urinary tract symptoms; R33.8 - Other retention of urine (15) Essential (primary) hypertension: (16) History of diabetes mellitus: (17) Depression: QUALIFIERS: Depression Type: reactive depression Qualified Code(s): F32.9 - Major depressive disorder, single episode, unspecified (18) Heme positive stool: PLAN: Plan 1. Continue therapy 2. Increase magnesium to 64 mg twice daily 3. Voiding trial tomorrow -remove Killian at 0600 in the AM. 4. Try some lidocaine at the urethral orifice to help with pain. 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 I updated him on Everardo's progress. He will have his office schedule a follow up appt in a couple weeks to discuss proceeding with cardiac cath and possible TAVR. Will need to have nephrology on board when he has the cath since he will be getting dye. He will be following up with Dr. Wilson for nephrology. Charges/Coding Visit Charges Inpatient E&M: 11539 Subs Hosp L1
[2025-01-30] MEDS: Isosorbide DN 10 MG Tablet PO ×3 (08:06→17:33)
[2025-01-30] MEDS: Insulin Glargine-YFGN 100 UNIT/ML Pen 16 UNIT SC (08:06)
[2025-01-30] MEDS: Arthritis Pain Compound 60 CLICK TUBE TOPICAL ×2 (08:09→20:23)
[2025-01-30] MEDS: Heparin Injection (Vial) 5,000 UNIT/ML VIAL 5000 UNIT SC ×2 (08:09→22:09)
[2025-01-30] MEDS: Magnesium Chloride 64 MG Delay Rel.Tablet PO ×2 (08:16→20:25)
[2025-01-30 09:54] VITALS: BMI 25.9
[2025-01-30] MEDS: 0.9% Saline Lock 10 ML Syringe IV ×2 (12:16→20:26)
[2025-01-30 18:00] VITALS: BP 110/49; PULSE 86; RESP 14; TEMP 36.4; O2SAT 94
[2025-01-30] MEDS: Lidocaine Jelly 2% 20 ML Syringe (URO-JET) 1 APPLIC TOPICAL (22:09)
[2025-01-30] MEDS: Insulin Glargine-YFGN 100 UNIT/ML Pen 6 UNIT SC (22:12)
[2025-01-31] MEDS: Psyllium 1 PACKET PO ×3 (05:58→22:04)
[2025-01-31] MEDS: Isosorbide DN 10 MG Tablet PO ×3 (05:59→17:00)
[2025-01-31 06:06] VITALS: BP 130/76; PULSE 82; RESP 16; TEMP 37.1; O2SAT 96
[2025-01-31 06:19] VITALS: BMI 25.8
[2025-01-31] MEDS: Magnesium Chloride 64 MG Delay Rel.Tablet PO ×2 (07:43→22:01)
[2025-01-31] MEDS: Heparin Injection (Vial) 5,000 UNIT/ML VIAL 5000 UNIT SC ×2 (07:43→22:01)
[2025-01-31] MEDS: Insulin Glargine-YFGN 100 UNIT/ML Pen 16 UNIT SC (07:43)
[2025-01-31] MEDS: Arthritis Pain Compound 60 CLICK TUBE TOPICAL ×2 (07:45→22:02)
--- NOTE | 2025-01-31 10:35 | PCM.PROGNOTE ---
Subjective Subjective Afebrile Weight is stable at approximately 155 pounds. Blood pressure over the past 48 hours has ranged from 110/49 to 145/68. Heart rate is within normal limits. Maintaining appropriate oxygen saturation on room air. Denies lightheadedness, orthopnea, CP, PND, no change in chronic cough, abd pain, calf pain. Has no ankle edema and denies calf pain. Good fluid intake. Stable ileostomy OP. Killian catheter was removed at 6 AM this morning which was 4-1/2 hours ago and he has not urinated yet. Her blood sugar record was reviewed. Blood sugar was in the 80s yesterday at supper but he got 4 units of lispro extra at noon. Has not had to take Tramadol. Takes an occasional Tylenol......not even every day. Objective Data Objective Data Vital Signs: Vital Signs Temp Pulse Resp BP Pulse Ox O2 Del Method 98.8 F 82 16 130/76 H 96 Room Air 01/31/25 06:06 01/31/25 06:06 01/31/25 06:06 01/31/25 06:06 01/31/25 06:06 01/31/25 06:06 Oxygen Delivery Method Room Air Weight: 155 lb 3.287 oz Body Mass Index (BMI) 25.8 Intake & Output: Intake and Output for Last 24 Hours 01/29/25 01/30/25 01/31/25 23:59 23:59 23:59 Intake Total 1500 / 1500 2400 / 2400 530 / 530 Output Total 2049 / 2049 2350 / 2350 750 / 750 Balance -550 / -550 50 / 50 -220 / -220 Medical Nutrition Assessment Dietitian: Malnutrition Criteria Met Start: 01/12/25 12:44 Freq: Status: Active Protocol: Document 01/15/25 10:00 [facility] (Rec: 01/15/25 10:00 [facility] [id number]) Nutrition Malnutrition Evidence of Yes Malnutrition Exists Evidenced By Suboptimal Energy Intake (Severe),Weight Loss (Severe), Physical Changes (Moderate) Clinical Problem Acute Disease or Injury Related Malnutrition Etiology r/t acute illness and recent surgeries and suboptimal energy intake Signs/Symptoms as evidenced by po intake meeting <75% of estimated nutritional needs and 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 Patino- soft and bite sized Changes consistency Will continue Nepro CHO Steady tid w/ meals for additional abel/pro if consumed. Continue appetite stimulant as ordered Continue to follow and monitor for changes in pt nutritional status and make additional rec as indicated . Lab / Micro Data 01/30/25 06:13 01/30/25 06:13 Labs: Laboratory Results - last 24 hr 01/30/25 12:09: POC Glucose 205 H 01/30/25 17:17: POC Glucose 84 01/30/25 22:06: POC Glucose 247 H 01/31/25 06:27: POC Glucose 87 Micro: Microbiology 01/24/25 13:05 Mucosa - Nasopharyngeal Respiratory Panel (PCR) - Final 01/24/25 10:19 Nasal Secretion SARS-CoV-2 Antigen (Rapid) - Final 01/19/25 10:50 Stool Clostridioides difficile (PCR) - Final 01/19/25 10:50 Stool Enteric Bacteriology - Final 01/19/25 10:00 Stool Stool Lactoferrin - Final 01/19/25 10:50 Stool Stool Occult Blood (RYLEE) - Final Occult Blood Positive 01/11/25 21:20 Stool Stool Occult Blood (RYLEE) - Final Physical Exam Resp normal respiratory effort Resp Narrative: No conversational dyspnea. BS's in the Left base are mildly decreased. coarse crackles in both bases posteriorly.......chronic. Used to smoke. Scattered mild opening wheeze and occasional exp wheeze. Has some chronic cough...Used to be a smoker. Effort and Inspection: Negative for tachypneic Cardio regular rate, regular rhythm and no gallops Cardio Narrative: No ectopy GI normal to inspection, nondistended, normoactive bowel sounds, soft to palpation and non-tender Extremity no calf tenderness General Extremity: Negative for edema Assessment & Plan Assessment/Plan (1) Cough: QUALIFIERS: Cough type: acute Qualified Code(s): R05.1 - Acute cough (2) Debility: (3) History of right hemicolectomy: (4) History of ileostomy: (5) CKD (chronic kidney disease), stage IV: (6) Orthostatic hypotension: (7) Anemia: QUALIFIERS: Anemia type: unspecified type Qualified Code(s): D64.9 - Anemia, unspecified (8) Dysphagia, oropharyngeal: (9) Cognitive dysfunction: (10) Other severe protein-calorie malnutrition: (11) Cardiomyopathy: QUALIFIERS: Cardiomyopathy type: unspecified Qualified Code(s): I42.9 - Cardiomyopathy, unspecified (12) Severe aortic stenosis: (13) Urinary retention: (14) BPH (benign prostatic hyperplasia): QUALIFIERS: Lower urinary tract symptom presence: symptoms present Lower urinary tract symptom detail: urinary retention Qualified Code(s): N40.1 - Benign prostatic hyperplasia with lower urinary tract symptoms; R33.8 - Other retention of urine (15) Essential (primary) hypertension: (16) History of diabetes mellitus: (17) Depression: QUALIFIERS: Depression Type: reactive depression Qualified Code(s): F32.9 - Major depressive disorder, single episode, unspecified (18) Heme positive stool: PLAN: Plan 1. Continue therapy 2. Try Albuterol aerosol 4X's daily WA for the next 48 hours to see if cough/wheezing improve........if it does will likely start and inhaler prior to DC 3. Tolerating current medications with no adverse SE's. No lightheadedness. Will double to Coreg dose to help with CM (35% EF). 4. HH, magnesium, renal profile on Wednesday 5. Hold the nighttime dose of glargine and continue to monitor blood sugars AC and at bedtime. 6. Discontinue sliding scale insulin 7. Voiding trial is in progress. Follow up: 1. Dr. Garcia 2. CArdiology 3. Dr. Wilson 4. urology 5. abd surgeon Charges/Coding Visit Charges Inpatient E&M: 39757 Subs Hosp L1
[2025-01-31] MEDS: 0.9% Saline Lock 10 ML Syringe IV ×2 (14:11→22:27)
--- NOTE | 2025-01-31 14:31 | WOUNDNOTE ---
Pt in therapy room doing therapy training with . discussed ostomy supplies, etc. with patient and . will plan to change appliance again with pt on Wednesday and pt will have home health at home as well. has been educated on appliance changes. pt has been empyting appliance himself. will review teaching with pt tomorrow and Wednesday prior to discharge home. pt aware to ask any questions. will make a supply list for home health care prior to pt going home. pt denies further needs at this time.
[2025-01-31 18:00] VITALS: BP 140/57; PULSE 98; RESP 17; TEMP 36.4; O2SAT 97
[2025-01-31 19:55] VITALS: PULSE 86; RESP 16; O2SAT 94
[2025-01-31] MEDS: Albuterol 2.5 MG/3 ML VIAL.NEB. INHALATION (19:55)
[2025-01-31 22:00] VITALS: PULSE 98; RESP 17; O2SAT 97
[2025-02-01 05:00] VITALS: BP 147/70; PULSE 93; RESP 16; TEMP 36.3; O2SAT 93
[2025-02-01] MEDS: Psyllium 1 PACKET PO ×3 (05:00→20:17)
[2025-02-01] MEDS: Insulin Glargine-YFGN 100 UNIT/ML Pen 16 UNIT SC (06:31)
[2025-02-01] MEDS: Isosorbide DN 10 MG Tablet PO ×3 (06:31→17:33)
[2025-02-01] MEDS: Arthritis Pain Compound 60 CLICK TUBE TOPICAL ×2 (08:09→20:19)
[2025-02-01] MEDS: Magnesium Chloride 64 MG Delay Rel.Tablet PO ×2 (08:11→20:17)
[2025-02-01] MEDS: Heparin Injection (Vial) 5,000 UNIT/ML VIAL 5000 UNIT SC ×2 (08:11→20:18)
[2025-02-01 08:15] VITALS: BP 114/58; PULSE 95
[2025-02-01 09:35] VITALS: BMI 26.0
[2025-02-01] MEDS: Albuterol 2.5 MG/3 ML VIAL.NEB. INHALATION (11:45)
--- NOTE | 2025-02-01 11:47 | PN_ITS ---
Subjective Subjective Afebrile Vital signs stable Denies lightheadedness. Maintaining appropriate oxygen saturation on room air. Postvoid residuals are elevated. Weight is stable Cough has improved with aerosols and the wheezing/squeaking is better. Better air exchange today. No tachycardia with the aerosols. Objective Data Objective Data Vital Signs: Vital Signs Temp Pulse Resp BP Pulse Ox O2 Del Method 97.3 F L 95 16 114/58 L 93 Room Air 02/01/25 05:00 02/01/25 08:15 02/01/25 05:00 02/01/25 08:15 02/01/25 05:00 02/01/25 10:00 Oxygen Delivery Method Room Air Weight: 156 lb 8 oz Body Mass Index (BMI) 26.0 Intake & Output: Intake and Output for Last 24 Hours 01/30/25 01/31/25 02/01/25 23:59 23:59 23:59 Intake Total 2400 / 2400 1780 / 1780 410 / 410 Output Total 2350 / 2350 2900 / 2900 1350 / 1350 Balance 50 / 50 -1120 / -1120 -940 / -940 Medical Nutrition Assessment Dietitian: Malnutrition Criteria Met Start: 01/12/25 12:44 Freq: Status: Active Protocol: Document 01/15/25 10:00 [facility] (Rec: 01/15/25 10:00 [facility] [id number]) Nutrition Malnutrition Evidence of Yes Malnutrition Exists Evidenced By Suboptimal Energy Intake (Severe),Weight Loss (Severe), Physical Changes (Moderate) Clinical Problem Acute Disease or Injury Related Malnutrition Etiology r/t acute illness and recent surgeries and suboptimal energy intake Signs/Symptoms as evidenced by po intake meeting <75% of estimated nutritional needs and unplanned wt loss of 12.8% x 2 months [employer]. 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 Patino- soft and bite sized Changes consistency Will continue Nepro CHO Steady tid w/ meals for additional abel/pro if consumed. Continue appetite stimulant as ordered Continue to follow and monitor for changes in pt nutritional status and make additional rec as indicated . Lab / Micro Data 01/30/25 06:13 01/30/25 06:13 Labs: Laboratory Results - last 24 hr 01/31/25 17:03: POC Glucose 100 01/31/25 21:49: POC Glucose 138 H 02/01/25 06:36: POC Glucose 139 H 02/01/25 11:12: POC Glucose 104 Micro: Microbiology 01/24/25 13:05 Mucosa - Nasopharyngeal Respiratory Panel (PCR) - Final 01/24/25 10:19 Nasal Secretion SARS-CoV-2 Antigen (Rapid) - Final 01/19/25 10:50 Stool Clostridioides difficile (PCR) - Final 01/19/25 10:50 Stool Enteric Bacteriology - Final 01/19/25 10:00 Stool Stool Lactoferrin - Final 01/19/25 10:50 Stool Stool Occult Blood (RYLEE) - Final Occult Blood Positive 01/11/25 21:20 Stool Stool Occult Blood (RYLEE) - Final Physical Exam Const alert and no apparent distress Resp Resp Narrative: Better air exchange today, No wheezing, opening pops, not squeaking with inspiration and I have not heard him cough all day. The coarse crackles in the posterior lower 1/2 of each lung are chronic and unchanged. Cardio regular rate, regular rhythm, no rub and no gallops GI normal to inspection, nondistended, normoactive bowel sounds, soft to palpation and non-tender Extremity General Extremity: Negative for edema Assessment & Plan Assessment/Plan (1) Cough: QUALIFIERS: Cough type: acute Qualified Code(s): R05.1 - Acute cough (2) Debility: (3) History of right hemicolectomy: (4) History of ileostomy: (5) CKD (chronic kidney disease), stage IV: (6) Orthostatic hypotension: (7) Anemia: QUALIFIERS: Anemia type: unspecified type Qualified Code(s): D 64.9 - Anemia, unspecified (8) Dysphagia, oropharyngeal: (9) Cognitive dysfunction: (10) Other severe protein-calorie malnutrition: (11) Cardiomyopathy: QUALIFIERS: Cardiomyopathy type: unspecified Qualified Code(s): I 42.9 - Cardiomyopathy, unspecified (12) Severe aortic stenosis: (13) Urinary retention: (14) BPH (benign prostatic hyperplasia): QUALIFIERS: Lower urinary tract symptom presence: symptoms present Lower urinary tract symptom detail: urinary retention Qualified Code(s): N40.1 - Benign prostatic hyperplasia with lower urinary tract symptoms; R33.8 - Other retention of urine (15) Essential (primary) hypertension: (16) History of diabetes mellitus: (17) Depression: QUALIFIERS: Depression Type: reactive depression Qualified Code(s): F32.9 - Major depressive disorder, single episode, unspecified (18) Heme positive stool: PLAN: Plan 1. Continue therapy 2. Change the albuterol aerosols to every 4 hours as needed for shortness of breath/coughing/wheezing 3. Start a Salmeterol/fluticasone inhaler 1 puff every 12 hours 4. I suspect he has chronic lung disease..........consider PFT's at some point......has many other priorities to take care of prior to this. 5. will ask respiratory to instruct him in proper use of inhaler and provide him with an aerochamber if they have one. May due better with advair inhaler as OP. will need to check to see if insurance will cover this. 6. suspect we are going to have to reinsert the Killian and he will need to follow up with urology. I will send the urologist a DC summary. Does not tolerate both Flomax and Proscar due to severe orthostasis and he has failed a few voiding trials. Likely will need a TURP at some point. This is also not high on the Priorty list at this time. Cardiac cath and TAVR will take precedence. Charges/Coding Visit Charges Inpatient E&M: 96054 [facility] Hosp L1
[2025-02-01 12:25] VITALS: PULSE 83; RESP 16
[2025-02-01 18:00] VITALS: BP 101/55; PULSE 79; RESP 17; TEMP 36.4; O2SAT 98
[2025-02-01] MEDS: 0.9% Saline Lock 10 ML Syringe IV (19:45)
[2025-02-01 20:10] VITALS: PULSE 79; RESP 17
[2025-02-01] MEDS: Fluticasone/Salmeterol 232-14 Inhaler 1 PUFF INHALATION (20:20)
[2025-02-02 05:36] LABS: Hematocrit 24.7 % (40-54); Hemoglobin 8.2 g/dL (13.0-16.5)
[2025-02-02] MEDS: Psyllium 1 PACKET PO ×3 (05:36→22:05)
[2025-02-02 05:57] VITALS: BP 108/52; PULSE 75; RESP 17; TEMP 36.7; O2SAT 93
[2025-02-02 06:00] VITALS: BMI 26.2
[2025-02-02 06:23] LABS: Albumin, Serum 3.1 g/dL (3.4-4.8); Anion Gap 11 (5-15); BUN 47 mg/dL (4-19); BUN/Creat Ratio 19.5 RATIO (10-20); Calcium,Total 9.2 mg/dL (7.6-11.0); Carbon Dioxide 21.0 mmol/L (21.0-32.0); Chloride 100 mmol/L (98-108); Estimated Creatinine Clearance 21.79 ml/min (50-250); Glucose 98 mg/dL (70-99); Magnesium 1.5 mg/dL (1.5-2.2); Potassium 5.0 mmol/L (3.3-5.1)
--- NOTE | 2025-02-02 06:25 | WOUNDNOTE ---
Voicemail left by nursing staff that would like to come observe ostomy appliance change. had talked with earlier in the week and she had stated she felt comfortable because she had helped with her moms ostomy and had also been involved in ostomy teaching with this nurse when patient was in TCU. nursing had shown how to clean and empty the appliance, but patient has been doing this himself and is highly encouraged for patient to do this. will call this am to ask again of she would like to come observe appliance change one more time prior to patient going home tomorrow. a supply list had been given to Irene for home health care to order. Pt will be sent home with supplies as well until they can be ordered for home.
[2025-02-02] MEDS: Insulin Glargine-YFGN 100 UNIT/ML Pen 16 UNIT SC (07:44)
[2025-02-02] MEDS: Isosorbide DN 10 MG Tablet PO ×3 (07:45→17:31)
[2025-02-02] MEDS: Arthritis Pain Compound 60 CLICK TUBE TOPICAL ×2 (07:48→22:04)
[2025-02-02] MEDS: Fluticasone/Salmeterol 232-14 Inhaler 1 PUFF INHALATION ×2 (07:48→22:03)
[2025-02-02] MEDS: Heparin Injection (Vial) 5,000 UNIT/ML VIAL 5000 UNIT SC ×2 (07:48→22:04)
[2025-02-02] MEDS: Magnesium Chloride 64 MG Delay Rel.Tablet PO ×2 (07:49→22:04)
--- NOTE | 2025-02-02 08:23 | PN_ITS ---
Subjective Subjective Afebrile Vital signs stable Weight today is 157 pounds 2.3 ounces....... this is up from 155 pounds on Wednesday of this week. Has mild pitting edema of the ankles today.......L>R. HGBA is 8.2, down from 8.9 earlier in the week and I suspect this is dilutional. His last dose of Lasix was on 01/27 and he got 80 mg and a dose of Kayexalate. K is 5 today and the creatinine is 2.43 which is up from 1.93 on 01/30/2025. Bicarb is normal at 21. Calcium is normal at 9.2 ( ALB is 3.1) and phosphorus is mildly increased at 5.2 despite calcium acetate. Magnesium is 1.5. Everardo denies lightheadedness today and he denies CP, orthopnea and PND. His cough improved with bronchodilators. Wheezing resolved with bronchodilators. Coarse crackles in the lower 1/3 of the lungs posteriorly are chronic. DUMONT improved with Albuterol. I&O are inconsistent and I am relying more on the daily weights. Failed voiding trial. Killian is going to be reinserted. Urine retention could be contributing to the increase in the CREAT. Killian was removed Wednesday. Does not tolerate Flomax + Proscar due to orthostatic hypotension and Flomax alone is not effective. Will discontinue the Flomax since it is not helping with urine retention and it contributes to orthostasis. He was able to use the fluticasone/Salmeterol inhaler today with some instruction from the nurse on how to use the inhaler. Objective Data Objective Data Vital Signs: Vital Signs Temp Pulse Resp BP Pulse Ox O2 Del Method 98.0 F 75 17 108/52 L 93 Room Air 02/02/25 05:57 02/02/25 05:57 02/02/25 05:57 02/02/25 05:57 02/02/25 05:57 02/02/25 05:57 Oxygen Delivery Method Room Air Weight: 157 lb 3.2 oz Body Mass Index (BMI) 26.2 Intake & Output: Intake and Output for Last 24 Hours 01/31/25 02/01/25 02/02/25 23:59 23:59 23:59 Intake Total 1780 / 1780 1130 / 1130 200 / 200 Output Total 2900 / 2900 1775 / 1775 400 / 400 Balance -1120 / -1120 -645 / -645 -200 / -200 Medical Nutrition Assessment Dietitian: Malnutrition Criteria Met Start: 01/12/25 12:44 Freq: Status: Active Protocol: Document 01/15/25 10:00 [facility] (Rec: 01/15/25 10:00 [facility] [id number]) Nutrition Malnutrition Evidence of Yes Malnutrition Exists Evidenced By Suboptimal Energy Intake (Severe),Weight Loss (Severe), Physical Changes (Moderate) Clinical Problem Acute Disease or Injury Related Malnutrition Etiology r/t acute illness and recent surgeries and suboptimal energy intake Signs/Symptoms as evidenced by po intake meeting <75% of estimated nutritional needs and 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 Patino- soft and bite sized Changes consistency Will continue Nepro CHO Steady tid w/ meals for additional abel/pro if consumed. Continue appetite stimulant as ordered Continue to follow and monitor for changes in pt nutritional status and make additional rec as indicated . Lab / Micro Data 02/02/25 05:21 02/02/25 05:21 Labs: Laboratory Results - last 24 hr 02/01/25 11:12: POC Glucose 104 02/01/25 16:09: POC Glucose 109 H 02/01/25 20:32: POC Glucose 81 02/01/25 21:33: POC Glucose 67 L 02/01/25 22:52: POC Glucose 101 02/02/25 05:21: Hgb 8.2 L, Hct 24.7 L, Sodium 132 L, Potassium 5.0, Chloride 100, Carbon Dioxide 21.0, Anion Gap 11, BUN 47 H, Creatinine 2.43 H, Estim Creat Clear Calc 21.79 L, Est GFR (MDRD) Non-Af 27 L, BUN/Creatinine Ratio 19.5, Glucose 98, Calcium 9.2, Phosphorus 5.2 H, Magnesium 1.5, Albumin 3.1 L 02/02/25 06:06: POC Glucose 103 Micro: Microbiology 01/24/25 13:05 Mucosa - Nasopharyngeal Respiratory Panel (PCR) - Final 01/24/25 10:19 Nasal Secretion SARS-CoV-2 Antigen (Rapid) - Final 01/19/25 10:50 Stool Clostridioides difficile (PCR) - Final 01/19/25 10:50 Stool Enteric Bacteriology - Final 01/19/25 10:00 Stool Stool Lactoferrin - Final 01/19/25 10:50 Stool Stool Occult Blood (RYLEE) - Final Occult Blood Positive 01/11/25 21:20 Stool Stool Occult Blood (RYLEE) - Final Physical Exam Const alert, oriented x3 and no apparent distress Constitutional Narrative: Doing well in therapy and has gotten much stronger over the course of his admission to acute rehab. General Appearance: cooperative Resp Resp Narrative: better air exchange since bronchodilators were started. DUMONT is better. Cough is better. Coarse crackles one third of the way of the posterior lung lucero persist and are unchanged. No wheezing today. Cardio regular rate, regular rhythm and no rub Cardio Narrative: No change in the MM. No ectopy GI normal to inspection, nondistended, normoactive bowel sounds, soft to palpation and non-tender GI Narrative: ostomy looks good/pink. Extremity no calf tenderness General Extremity: edema bilateral lower extremity (BL ankles......no pretibial edema L>R ankle edema) Details: mild Skin Rashes: no rashes Assessment & Plan Assessment/Plan (1) Cough: QUALIFIERS: Cough type: acute Qualified Code(s): R05.1 - Acute cough (2) Debility: (3) History of right hemicolectomy: (4) History of ileostomy: (5) CKD (chronic kidney disease), stage IV: (6) Orthostatic hypotension: (7) Anemia: QUALIFIERS: Anemia type: unspecified type Qualified Code(s): D 64.9 - Anemia, unspecified (8) Dysphagia, oropharyngeal: (9) Cognitive dysfunction: (10) Other severe protein-calorie malnutrition: (11) Cardiomyopathy: QUALIFIERS: Cardiomyopathy type: unspecified Qualified Code(s): I 42.9 - Cardiomyopathy, unspecified (12) Severe aortic stenosis: (13) Urinary retention: (14) BPH (benign prostatic hyperplasia): QUALIFIERS: Lower urinary tract symptom presence: symptoms present Lower urinary tract symptom detail: urinary retention Qualified Code(s): N40.1 - Benign prostatic hyperplasia with lower urinary tract symptoms; R33.8 - Other retention of urine (15) Essential (primary) hypertension: (16) History of diabetes mellitus: (17) Depression: QUALIFIERS: Depression Type: reactive depression Qualified Code(s): F32.9 - Major depressive disorder, single episode, unspecified (18) Heme positive stool: (19) Hyponatremia: (20) Hyperphosphatemia: (21) Metabolic acidosis: (22) COPD (chronic obstructive pulmonary disease): QUALIFIERS: COPD type: unspecified COPD Qualified Code(s): J44.9 - Chronic obstructive pulmonary disease, unspecified PLAN: Plan 1. Continue therapy today 2. Plan discharge home with [facility] health care 3. Lasix 80 mg IV x 1 today. 4. Kayexalate 15 g today. 5. [address] Dr. Wilson 6. DC Flomax - has not been effective in the tx of urine retention........will need TURP going forward and he has an appt with a urologist already. Prior to any urologic surgery he will need to have a good cardiac evaluation with cardiac cath and possible TAVR We discussed the possibility of HD going forward........jovanny since he will get dye with the cardiac cath. Charges/Coding Visit Charges Inpatient E&M: 81541 Subs Hosp L2
--- NOTE | 2025-02-02 09:54 | DCINST_ITS ---
Discharge Instructions Diet Discharge Diet: - (Carb control, low potassium, low phosphorous, ) DC O2, CPAP, BIPAP needs Home O2 Discharge instructions: No Dressing / Incision Discharge Activity: May Shower and Use Walker Weight Bearing Status: Full weight bearing Keep extremity elevated above heart level: Legs Dressing / Incision Call your doctor if you observe: Fever of 101 or Higher, Inability to have a bowel movement, Shortness of breath, Dizziness, Fainting spells, Swelling in the ankles, Chest pain, Increased palpitations (irregular heartbeat), Uncontrolled pain and - (If the urine is cloudy or you have visible blood in the urine. Shaking chills, fever, night sweats, confusion - these are all signs of possible urinary tract infection. ) Catheter: - (peña to leg bag or to large bag........use the leg bag if you are out and about in the community. ) Drain: [place] Follow Up Care When: follow up/appointments are listed later in this document. Test Results: Test results from this visit will be discussed in further detail at your follow- up appointment, if applicable. Pending Tests Upon Discharge: none Discharge Plan Admission Admit Date/Time: 01/11/25 14:25 Primary Reason for Your Visit: Debility due to partial colectomy/abd abscesses. Attending Provider: Marie Patino Primary Care Provider: Trinity Coronado Consulting Providers: Judson Matute; Len Wilson Instructions Patient Instructions: TURP, CKD Dc, TAVR Additional Instructions / Restrictions: 1. You have done an amazing job on rehab. You could not stand up by yourself when you first got here and now you are climbing a full flight of stairs. You are much stronger now and you are ready for what comes next. You had a heart attack while you were at [facility]. You have also had congestive heart failure. Normally when the heart squeezes it squeezes 55-65% of the blood out. Your heart squeezes only 35% of the blood out. Sometimes the rest can back up into the lungs and cause shortness of breath with exertion, swelling in your legs, shortness of breath when lying flat in bed and fatigue. You are going to need to have a cardiac catheterization after you are discharged and possibly an Aortic valve replacement. The cath is to make sure you do not have any significant disease in the arteries of the heart that would cause it not to squeeze well or would cause a heart attack. Valve replacements can now sometimes be done through a catheter and you do not have to have the chest opened surgically. I have given you some information on TAVR (transaortic valve replacement). Getting the heart taken care of is your #1 priority. 2. You have chronic kidney disease. There are 5 stages of chronic kidney failure and you are in stage 4 (severe). Because of the kidney failure your body retains potassium and phosphorous. You will now have to follow a diet low in potassium and phosphorous to keep these levels from getting too high. You are also on medications to help keep the potassium and the magnesium within normal limits. You will be seeing Dr. Wilson to help keep your kidneys in the best shape possible and prevent further kidney damage. I am hopeful that there will be some improvement in the kidney function when the heart gets better. 3. You retain urine. This is most likely due to enlargement of the prostate. We have tried medication and they either do not work effectively to control the problem OR they cause your BP to drop with standing. Unfortunately we had to reinsert the Peña catheter prior to you discharging home. At some point you will need to see a urologist to address this problem and you may need surgery. This is not a priority right now........the heart is the priority. Catheters can become infected. The signs that you may have a urinary tract infection include fever, chills, night sweats, pain in the pelvic area and confusion. Often as we get older we do not have fevers and the only sign of an infection may be confusion. If you have any of the symptoms call your doctor. Also call if the urine becomes very cloudy or you have visible blood in the urine. Sometimes the urine will become very malodorous. You will have a home health nurse checking on the Peña.........if you notice something is different let the nurse know. 4. I want you to weigh yourself every morning after urinating (naked or wearing the same clothes everyday) and keep a record. You should have a digital scale for accuracy. The first time you weigh yourself when you get home will be your baseline. If your weight goes up by 3 lbs OR you have swelling in the ankles or increased shortness of breath take 1 Lasix tab daily until the weight is back to your baseline. Watch your salt intake......salt makes you retain water. 5. You are on a lot less insulin now than you were at admission to rehab. You will be taking the long acting insulin in the morning with breakfast. You will take 14 units. With meals you will be taking the aspartame (short acting insuli n) 3 units. If the blood sugar prior to a meal is > 180 take an extra 1 unit. If the blood sugar is > 220 take 2 extra units. Check your blood sugar before meals and at bedtime....just like we were doing in the hospital. Take the record of the blood sugars to your appt with Dr. Garcia. If your blood sugars are less than 100 or greater than 250 over the weekend call me for instructions. 6. It has been a pleasure getting to know you and your family. You are in a good place now to move forward with the additional testing you need and hopefully a valve replacement. It is important to KEEP MOVING. Do the exercises the therapists have given you everyday so you do not lose ground. If you get short of breath or lightheaded sit down and take a rest for a few minutes. If you or any of your family have any questions after you leave rehab please DO NOT HESITATE TO CALL ME. OFFICE: [phone] CELL: [phone] NURSES STATION ON REHAB: [phone] Discharge Orders/Prescriptions Prescriptions: New carvedilol 12.5 mg Tablet 12.5 mg PO BIDCM Qty: 60 0RF isosorbide dinitrate 10 mg Tablet 10 mg PO TID@0700,1200,1700 Qty: 90 0RF loperamide 2 mg Capsule 4 mg PO Q6H Qty: 240 0RF ipratropium bromide 42 mcg (0.06 %) [place],Non-Aerosol 2 spray NASAL BID Qty: 1 0RF fluticasone propion-salmeterol 232-14 mcg/actuation Aerosol Powdr Breath Activated 1 inh inhalation Q12 Qty: 1 0RF Rx Instructions: rinse mouth after every use pantoprazole 40 mg Tablet,Delayed Release (Dr/Ec) 40 mg PO BID Qty: 60 0RF mirtazapine 15 mg Tablet 15 mg PO 2100 Qty: 30 0RF simethicone 80 mg Tablet,Chewable 80 mg PO PCHS Qty: 120 0RF magnesium chloride [Mag 64] 64 mg Tablet,Delayed Release (Dr/Ec) 64 mg PO BID Qty: 60 0RF Daily Fiber (psyllium-aspart) 3 gram Powder In Packet 1 packet PO TID Qty: 90 0RF insulin glargine-yfgn 100 unit/mL (3 mL) Insulin Pen 14 unit subcut 0700 Qty: 2 0RF insulin aspart U-100 100 unit/mL (3 mL) insulin pen 3 unit subcut TID Qty: 2 0RF sodium bicarbonate 650 mg tablet 650 mg PO TID Qty: 90 0RF furosemide [Lasix] 80 mg tablet See Rx Instructions .ROUTE .COMPLEX Qty: 20 0RF Rx Instructions: take 1 tab in the morning if wt increases by 3 lbs. Continued aspirin 81 MG tablet 81 mg PO DAILY@0800 gabapentin 300 mg capsule 300 mg PO QHS acetaminophen 325 mg capsule 650 mg PO Q4H PRN (Reason: fever or pain) Discontinued tamsulosin 0.4 MG capsule 0.4 mg PO QHS carvedilol [Coreg] 6.25 mg tablet 6.25 mg PO BID Rx Instructions: must administer with a meal/food finasteride [Proscar] 5 mg tablet 5 mg PO DAILY isosorbide dinitrate [Isordil Titradose] 5 mg tablet 10 mg PO TID Rx Instructions: allow nitrate-free interval of 12-14 hrs per 24-hr period ciprofloxacin HCl 500 mg tablet 500 mg PO DAILY Referrals / Follow Up: Jeremias Carrero [Other] - 02/07/25 1:40 pm (Remove Peña at 8am on 02/07/25) Jack Mota-Cardiology [Other] - 03/06/25 3:20 pm () Len Wilson MD [Med Staff - Consulting] - (office wants pt. to make appt after DC) Kingston Garcia DO [Med Staff - Central Office Worker] - 02/16/25 11:00 am Disposition Disposition (needs filled in before D/C Order can be placed): Home Health Service
--- NOTE | 2025-02-02 12:04 | PCM.CONS.R ---
Assessment & Plan Assessment/Plan (1) HAMMAD (acute kidney injury): (2) CKD (chronic kidney disease), stage IV: PLAN: Baseline creatinine prior to recent surgeries was around 1.6. Most of these hospitalizations, his creatinine is closer to 2.0 with fluctuations. Urinary retention, Killian in, likely DC home with Killian catheter Congestive heart failure. Discussed with hospitalist. Would use Lasix as needed depending on the weights Acidosis. Likely causing hyperkalemia as well. Sent home on sodium bicarbonate 650 mg 3 times daily Will arrange follow-up in the office HPI Consult Data Date of Consult: 02/02/25 HPI Narrative Reason for Consultation: HAMMAD HPI Narrative: SYD BARNETT, is a 79 M who presents To the rehab after recent hospitalization. He was recently admitted at [facility] For initially abdominal pain, ended up getting a hemicolectomy, ileostomy. He was readmitted for a intra-abdominal abscess requiring drain placement. He is here for rehab. We saw him mostly at [facility] For acute renal failure, on top of CKD stage IIIb/IV. Baseline creatinine prior to this hospitalizations was 1.6. He had HAMMAD due to ATN, required dialysis. This was subsequently stopped due to recovery of renal function. Other issues include BPH, urinary retention, failed multiple voiding trials, failed this week as well, likely discharge home with Killian catheter Congestive heart failure with low ejection fraction Aortic stenosis, likely needs TAVR Intra-abdominal abscess, status post drain placement He has some volume losses due to ileostomy output in addition to regular urine output. [facility] Medical History Diverticulosis Acute renal failure superimposed on stage 4 chronic kidney disease Diabetic polyneuropathy Iron deficiency anemia Irregular heart beat CKD (chronic kidney disease), stage IV Wears glasses Wears dentures BPH (benign prostatic hyperplasia) History of diverticulitis Former smoker Leg cramps History of echocardiogram Hypertrophic scar Carotid stenosis, left Sebaceous cyst Amaurosis fugax of right eye Sciatica Hyperlipidemia Osteoarthritis Hemorrhoid GERD (gastroesophageal reflux disease) HTN (hypertension) Home Medications ?Medication ?Instructions ?Recorded ?Last Taken ?Type aspirin 81 mg tablet,delayed 81 mg PO DAILY@0800 heart health 04/16/17 11/26/24 09:00 History release gabapentin 300 mg capsule 300 mg PO QHS PAIN 10/31/24 11/25/24 22:30 History acetaminophen 325 mg capsule 650 mg PO Q4H PRN fever or pain 01/11/25 Unknown History carvedilol 12.5 mg tablet 12.5 mg PO BIDCM #60 tabs 02/02/25 Unknown Rx fluticasone 232 mcg-salmeterol 14 1 inh inhalation Q12 #1 ea 02/02/25 Unknown Rx mcg/actuation breath activated powdr ipratropium bromide 42 mcg (0.06 2 spray NASAL BID #1 BOTTLE 02/02/25 Unknown Rx %) nasal spray isosorbide dinitrate 10 mg tablet 10 mg PO TID@0700,1200,1700 #90 02/02/25 Unknown Rx tabs loperamide 2 mg capsule 4 mg (2 x 2 mg) PO Q6H #240 caps 02/02/25 Unknown Rx magnesium chloride 64 mg 64 mg PO BID #60 tabs 02/02/25 Unknown Rx (magnesium chloride) tablet,delayed release (Mag 64) mirtazapine 15 mg tablet 15 mg PO 2100 #30 tabs 02/02/25 Unknown Rx pantoprazole 40 mg tablet,delayed 40 mg PO BID #60 tabs 02/02/25 Unknown Rx release psyllium husk 3 gram oral powder 1 packet PO TID #90 ea 02/02/25 Unknown Rx packet (Daily Fiber (psyllium-aspartame)) simethicone 80 mg chewable tablet 80 mg PO PCHS #120 tabs 02/02/25 Unknown Rx Allergy/AdvReac Type Severity Reaction Status Date / Time atorvastatin (From Lipitor) Allergy INTOLERANCE Verified 12/26/24 20:42 ezetimibe (From Zetia) Allergy MYALGIA Verified 12/26/24 20:42 pravastatin Allergy MYALGIAS Verified 12/26/24 20:42 simvastatin (From Zocor) Allergy INTOLERANCE Verified 12/26/24 20:42 sitagliptin (From Januvia) Allergy INTOLERANCE Verified 12/26/24 20:42 tetanus and diphtheria Allergy Rash Verified 12/01/24 22:00 toxoids ciprofloxacin (From Cipro) AdvReac Intermediate achilles Verified 02/02/25 10:34 tendonitis [id number]-[id number]-KmT Reductase AdvReac Other Verified 12/01/24 22:00 Inhibitor (Pupfyon-Zil-Azs Reductase Inhibitor) Family History Father Diabetes Heart disease Myocardial infarction Mother CAD (coronary artery disease) Arthritis Surgical History H/O drainage of abscess History of partial colectomy History of lumbar fusion History of ileostomy History of right hemicolectomy History of right-sided carotid endarterectomy (~11/2017) History of umbilical hernia S/P ventral herniorrhaphy S/P inguinal hernia repair S/P colonoscopy Social History household members: spouse Smoking Status: Former smoker alcohol intake: never substance use type: does not use ROS ROS Narrative negative except above Physical Exam Narrative looks comfortable + edema Medical Records Data Medical Nutrition Assessment Dietitian: Malnutrition Criteria Met Start: 01/12/25 12:44 Freq: Status: Active Protocol: Document 01/15/25 10:00 [facility] (Rec: 01/15/25 10:00 [facility] [id number]) Nutrition Malnutrition Evidence of Yes Malnutrition Exists Evidenced By Suboptimal Energy Intake (Severe),Weight Loss (Severe), Physical Changes (Moderate) Clinical Problem Acute Disease or Injury Related Malnutrition Etiology r/t acute illness and recent surgeries and suboptimal energy intake Signs/Symptoms as evidenced by po intake meeting <75% of estimated nutritional needs and 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 Patino- soft and bite sized Changes consistency Will continue Nepro CHO Steady tid w/ meals for additional abel/pro if consumed. Continue appetite stimulant as ordered Continue to follow and monitor for changes in pt nutritional status and make additional rec as indicated . Lab / Micro Data 02/02/25 05:21 02/02/25 05:21 Labs: Laboratory Results - last 24 hr 02/01/25 16:09: POC Glucose 109 H 02/01/25 20:32: POC Glucose 81 02/01/25 21:33: POC Glucose 67 L 02/01/25 22:52: POC Glucose 101 02/02/25 05:21: Hgb 8.2 L, Hct 24.7 L, Sodium 132 L, Potassium 5.0, Chloride 100, Carbon Dioxide 21.0, Anion Gap 11, BUN 47 H, Creatinine 2.43 H, Estim Creat Clear Calc 21.79 L, Est GFR (MDRD) Non-Af 27 L, BUN/Creatinine Ratio 19.5, Glucose 98, Calcium 9.2, Phosphorus 5.2 H, Magnesium 1.5, Albumin 3.1 L 02/02/25 06:06: POC Glucose 103 02/02/25 11:15: POC Glucose 86
[2025-02-02] MEDS: Lidocaine Jelly 2% 20 ML Syringe (URO-JET) 1 APPLIC TOPICAL (13:39)
--- NOTE | 2025-02-02 13:43 | DS.PCM_ITS ---
Providers Date of Admission: 01/11/25 Date of Discharge: 02/03/25 Primary Care Physician: DEANNA Franklin Consultations 01/15/25 13:07 Consult: Onc/Wound/duct installer Routine Comment: Reason for Consult:: ileostomy 01/16/25 15:40 Consult: Gastroenterology Routine Consulting Provider: Judson Matute Reason for Consult: high output from ileostomy EMERGENT Consult: No MD Notified: Yes Date Notified: 01/16/25 Time Notified: 15:40 Method of Notification: Text 02/02/25 08:15 Consult: Nephrology Routine Consulting Provider: Len Wilson Reason for Consult: acute exacerbation CRF. EMERGENT Consult: No MD Notified: Yes Date Notified: 02/02/25 Time Notified: 08:15 Method of Notification: Text Reason For Visit: DEBILITY Diagnosis Discharge Diagnosis (1) Debility: Status: Acute Code(s): R53.81 - Other malaise (2) History of right hemicolectomy: Status: Acute Code(s): Z90.49 - Acquired absence of other specified parts of digestive tract (3) History of ileostomy: Status: Acute Code(s): Z98.890 - Other specified postprocedural states (4) Postoperative abscess: Status: Acute Code(s): T81.49XA - Infection following a procedure, other surgical site, initial encounter (5) H/O drainage of abscess: Status: Acute Code(s): Z98.890 - Other specified postprocedural states (6) High output ileostomy: Status: Acute Code(s): R19.8 - Other specified symptoms and signs involving the digestive system and abdomen; Z93.2 - Ileostomy status (7) Orthostatic hypotension: Status: Acute Code(s): I95.1 - Orthostatic hypotension (8) Acute renal failure superimposed on stage 4 chronic kidney disease: Status: Resolved Code(s): N17.9 - Acute kidney failure, unspecified; N18.4 - Chronic kidney disease, stage 4 (severe) Qualifiers: Acute renal failure type: unspecified Qualified Code(s): N17.9 - Acute kidney failure, unspecified; N18.4 - Chronic kidney disease, stage 4 (severe) (9) CKD (chronic kidney disease), stage IV: Status: Chronic Code(s): N18.4 - Chronic kidney disease, stage 4 (severe) (10) Urinary retention: Status: Acute Code(s): R33.9 - Retention of urine, unspecified (11) BPH (benign prostatic hyperplasia): Status: Acute Code(s): N40.0 - Benign prostatic hyperplasia without lower urinary tract symptoms Qualifiers: Lower urinary tract symptom detail: urinary retention Lower urinary tract symptom presence: symptoms present Qualified Code(s): N40.1 - Benign prostatic hyperplasia with lower urinary tract symptoms; R33.8 - Other retention of urine (12) Myocardial infarction due to demand ischemia: Status: Acute Code(s): I21.A1 - Myocardial infarction type 2 (13) Cardiomyopathy: Status: Acute Code(s): I42.9 - Cardiomyopathy, unspecified Qualifiers: Cardiomyopathy type: unspecified Qualified Code(s): I42.9 - Cardiomyopathy, unspecified (14) Severe aortic stenosis: Status: Acute Code(s): I35.0 - Nonrheumatic aortic (valve) stenosis (15) Hyponatremia: Status: Acute Code(s): E87.1 - Hypo-osmolality and hyponatremia (16) Other severe protein-calorie malnutrition: Status: Acute Code(s): E43 - Unspecified severe protein-calorie malnutrition (17) Heme positive stool: Status: Acute Code(s): R19.5 - Other fecal abnormalities (18) Hyperphosphatemia: Status: Acute Code(s): E83.39 - Other disorders of phosphorus metabolism (19) Metabolic acidosis: Status: Acute Code(s): E87.20 - Acidosis, unspecified (20) Hypomagnesemia: Status: Acute Code(s): E83.42 - Hypomagnesemia (21) History of diabetes mellitus: Status: Acute Code(s): Z86.39 - Personal history of other endocrine, nutritional and metabolic disease (22) Essential (primary) hypertension: Status: Acute Code(s): I10 - Essential (primary) hypertension (23) Anemia: Status: Acute Code(s): D64.9 - Anemia, unspecified Qualifiers: Anemia type: unspecified type Qualified Code(s): D64.9 - Anemia, unspecified (24) History of lumbar fusion: Status: Acute Code(s): Z98.1 - Arthrodesis status (25) Dysphagia, oropharyngeal: Status: Acute Code(s): R13.12 - Dysphagia, oropharyngeal phase (26) Cognitive dysfunction: Status: Acute Code(s): F09 - Unspecified mental disorder due to known physiological condition (27) COPD (chronic obstructive pulmonary disease): Status: Suspected Code(s): J44.9 - Chronic obstructive pulmonary disease, unspecified Qualifiers: COPD type: unspecified COPD Qualified Code(s): J44.9 - Chronic obstructive pulmonary disease, unspecified (28) Depression: Status: Acute Code(s): F32.A - Depression, unspecified Qualifiers: Depression Type: reactive depression Qualified Code(s): F32.9 - Major depressive disorder, single episode, unspecified Plan 1. Discharged home on Wednesday02/03/25 2. Follow up with Dr. Mota on 03/06/25. Address cardiac cath and severe . 3. Follow up with Dr. Garcia on 02/16/25 for PCP 4. Follow up with Dr. Wilson - Want sot see the week following DC. The office will call the pt with an appt. 5. Check BS's AC&HS 6. Will need to follow up with urology at some point for urine retention. Discharged with a Peña catheter. Does not tolerate Flomax and Proscar together due to severe orthostatic hypotension. Failed 2 voiding trials on Flomax alone. Flomax was discontinued because it is not effective in controlling the retention. Cath and valve replacement are priorities at [place]. 7. Carb controlled, cardiac diet with low phos and low K. Lasix 80 mg PRN weight increased 3 lbs above baseline 8. Everardo will weigh himself every AM on a digital scale. Medications at Discharge Home Medications aspirin 81 mg tablet,delayed release 81 mg PO DAILY@0800 heart health 04/16/17 gabapentin 300 mg capsule 300 mg PO QHS PAIN 10/31/24 acetaminophen 325 mg capsule 650 mg PO Q4H PRN fever or pain 01/11/25 carvedilol 12.5 mg tablet 12.5 mg PO BIDCM #60 tabs 02/02/25 fluticasone 232 mcg-salmeterol 14 mcg/actuation breath activated powdr 1 inh inhalation Q12 #1 ea 02/02/25 furosemide 80 mg tablet (Lasix) See Rx Instructions .Route .COMPLEX #20 tabs 02/02/25 insulin aspart U-100 100 unit/mL (3 mL) subcutaneous pen 3 unit (0.03 mL) subcut TID #2 pens 02/02/25 insulin glargine-yfgn 100 unit/mL (3 mL) subcutaneous pen 14 unit (0.14 mL) subcut 0700 #2 pens 02/02/25 ipratropium bromide 42 mcg (0.06 %) nasal spray 2 spray NASAL BID #1 BOTTLE 02/02/25 isosorbide dinitrate 10 mg tablet 10 mg PO TID@0700,1200,1700 #90 tabs 02/02/25 loperamide 2 mg capsule 4 mg (2 x 2 mg) PO Q6H #240 caps 02/02/25 magnesium chloride 64 mg (magnesium chloride) tablet,delayed release (Mag 64) 64 mg PO BID #60 tabs 02/02/25 mirtazapine 15 mg tablet 15 mg PO 2100 #30 tabs 02/02/25 pantoprazole 40 mg tablet,delayed release 40 mg PO BID #60 tabs 02/02/25 psyllium husk 3 gram oral powder packet (Daily Fiber (psyllium-aspartame)) 1 packet PO TID #90 ea 02/02/25 simethicone 80 mg chewable tablet 80 mg PO PCHS #120 tabs 02/02/25 sodium bicarbonate 650 mg tablet 650 mg PO TID #90 tabs 02/02/25 Hospital Course Operations - (1. Lumbar fusion 11/27/24 2. Right hemicolectomy and partial resection proximal transverse colon at [facility] with creation of ileostomy ) Procedures Transthoracic echo (Done at [facility]. EF 35% with hypokinesia and multiple wall motion abnormalities. Moderate to severe aortic stenosis. Mild left atrial enlargement and the PA systolic was estimated at 44 which is consistent with mild pulmonary hypertension.) and - (On 12/12/2024 interventional radiology placed a drain in the left upper quadrant for an intra-abdominal abscess. 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 Guillaume Hancock, amaurosis fugax of the right eye, hyperlipidemia, osteoarthritis, presbycusis, GERD, hypertension, diabetes mellitus type 2 and chronic low back pain with sciatica due to lumbar canal stenosis. On 11/27/2024 he underwent a L2- L5 posterior spinal fusion. He was discharged home on 11/29/2024 but returned to the emergency room 2 days later on 12/01/2024 complaining of abdominal pain and distention associated with nausea and vomiting. He ended up have ischemic colitis and had to have a R hemicolectomy and partial resection of the proximal transverse colon. This was followed by an Ileostomy. He developed intraabdominal abscesses and interventional radiology at [facility] placed a drain in the LUQ and later a drain in the RUQ. Wile acutely ill he had an NSTEMI. ECHO showed a 35% EF with mild pulmonary HTN, mod-severe , multiple wall motion abnormalities and LAE. Additional complications post-operatively included acute on chronic renal failure. A temporary dialysis catheter was placed and he was dialyzed. He was transferred to the acute inpt rehab unit at [facility] on 01/11/25. Peña catheter was present at admission to rehab. He was taking both Flomax and Proscar and had severe orthostatic hypotension. These medications were held. Flomax was later restarted but, he had significant retention while on Flomax and he failed 2 voiding trials. Flomax was discontinued and he was told to follow up with urology post DC from rehab. At admission to rehab he had high ileostomy OP and required IV fluids to keep him hydrated. Dr. Matute was consulted. The ileostomy OP is controlled at the time of DC from rehab and the stool in the bag is soft but, no longer liquid. He is taking Psyllium (TID), Imodium (6 mg Q6H) and Protonix 40 mg BID. He has hyperphosphatemia, metabolic acidosis and hyperkalemia. He was placed on a low phosphorous/low potassium diet and was started on Bicarb tabs. He was seen by Dr. Wilson while on rehab and Dr. Wilson will follow up with him the week following DC from rehab. He has intermittently had mild systolic CHF and we have been giving Lasix 80 mg as needed for increases in ankle edema and weight. He had a chronic cough at presentation to rehab. Coarse crackles in the bases are chronic and they have not changed during the course of his stay on rehab. he intermittently had wheezing and decreased BS's with increased DUMONT. He was given a trial of Albuterol aerosols and the air exchange improved significantly. Wheezing resolved and the cough resolved. He was placed on a fluticasone/Salmeterol inhaler prior to discharge from rehab. May benefit from PFT's going forward, after the heart issues have been addressed. Everardo did very well on rehab and is much stronger at [place]. At the time of DC he is is able to ascend/descend 13 standard steps with 2 handrails at contact- guard assist. He is ambulated up to 500 feet with a front wheeled walker on various surfaces at standby assist/contact-guard assist. He has ambulated on the rehab unit independently in his room and on the floor up to 150 feet. He is independent with eating and supervision/set up for grooming and upper body dressing. He requires only minimal assistance with lower body dressing and bathing. He is contact-guard assist for tub/shower transfer. He has a Peña and an ileostomy so toileting and toilet transfer are not an issue. He will be following up with Cardiology, PCP, renal, urology and the general surgeon post DC from rehab. Obviously cardiac cath and possible TAVR are big priorities. He will continue a low phosphorus, low potassium diet. Both the patient and his were educated by the dieticians on low phos and K. He will be checking his BS's ACHS initially. Insulin requirements decreased significantly over the week preceding DC from rehab and we have had to make frequent adjustments. He was discharged with a Peña catheter. He will have [facility] at [place] for PT/OT/SN. If he has additional probems with high OP from the ileostomy he could follow up with Dr. Matute as an OP,. Physical Exam Const alert and oriented x3 Constitutional Narrative: Sitting in the recliner at the bedside. Very alert and pleasant. General Appearance: cooperative Eyes PERRL, EOMs intact bilaterally, conjunctivae normal and no scleral icterus Eyes Narrative: No discharge from the eyes. No visual field cuts. No nystagmus. Neck supple Chest Chest: symmetrical chest wall rise Resp normal respiratory effort Resp Narrative: No cough. Coarse crackles in the posterior lungs approximately [address] No wheezing. these crackles are persistent and chronic. He has increased interstitial markings on CXR and I suspect he has underlying chronic lung disease related to agent orange, smoking and scarring. Effort and Inspection: able to speak in complete sentences; Negative for tachypneic or labored Cardio regular rate, regular rhythm, no rub and no gallops Cardio Narrative: No ectopy. He has a loud holosystolic MM at the second RICS with radiation to the LVOT, LLSB, apex and into both carotids. There is a soft systolic murmur in the left axillary area. No diastolic murmurs were appreciated. GI GI Narrative: Less gas since the simethicone was added and the stool is now more gel like/mush/soft than liquid. Decreased stool amount. Stool appears to be a light brown color. No visible blood. Stoma looks good. Narrative: Urine in the Peña bag and tubing is pale yellow and clear. Bladder / Kidney Exam: catheter in place Back/Spine no CVA tenderness Extremity no calf tenderness Extremity Narrative: Since the Cipro was discontinued he is no longer c/o R ankle pain. General Extremity: edema left lower extremity (mild and limited to the ankle. No edema of the R ankle.) Skin no jaundice General Skin Exam: no breakdown Rashes: no rashes Neuro oriented x3, CN's II-XII intact bilaterally and moves all extremities Psych Psych Narrative: calm, good eye contact, talkative, sleeping better at night and has a good appetite. Appearance: appropriate and well kempt Attitude: engaged Activity / Motor Behavior: appropriate eye contact Speech: normal speech Mood & Affect: euthymic mood Medical Records Data Medical Nutrition Assessment Dietitian: Malnutrition Criteria Met Start: 01/12/25 12:44 Freq: Status: Active Protocol: Document 01/15/25 10:00 [facility] (Rec: 01/15/25 10:00 [facility] [id number]) Nutrition Malnutrition Evidence of Yes Malnutrition Exists Evidenced By Suboptimal Energy Intake (Severe),Weight Loss (Severe), Physical Changes (Moderate) Clinical Problem Acute Disease or Injury Related Malnutrition Etiology r/t acute illness and recent surgeries and suboptimal energy intake Signs/Symptoms as evidenced by po intake meeting <75% of estimated nutritional needs and 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 Patino- soft and bite sized Changes consistency Will continue Nepro CHO Steady tid w/ meals for additional abel/pro if consumed. Continue appetite stimulant as ordered Continue to follow and monitor for changes in pt nutritional status and make additional rec as indicated . Weight / BMI Weight Weight: 155 lb 6.4 oz Body Mass Index (BMI) 25.9 ABG / Lab / Microbiology Data 02/02/25 05:21 02/02/25 05:21 Laboratory: Laboratory Results - last 24 hr 02/01/25 16:09: POC Glucose 109 H 02/01/25 20:32: POC Glucose 81 02/01/25 21:33: POC Glucose 67 L 02/01/25 22:52: POC Glucose 101 02/02/25 05:21: Hgb 8.2 L, Hct 24.7 L, Sodium 132 L, Potassium 5.0, Chloride 100, Carbon Dioxide 21.0, Anion Gap 11, BUN 47 H, Creatinine 2.43 H, Estim Creat Clear Calc 21.79 L, Est GFR (MDRD) Non-Af 27 L, BUN/Creatinine Ratio 19.5, Glucose 98, Calcium 9.2, Phosphorus 5.2 H, Magnesium 1.5, Albumin 3.1 L 02/02/25 06:06: POC Glucose 103 02/02/25 11:15: POC Glucose 86 Microbiology: Microbiology 02/02/25 14:20 Stool Stool Occult Blood (RYLEE) - Final Occult Blood Positive 01/24/25 13:05 Mucosa - Nasopharyngeal Respiratory Panel (PCR) - Final 01/24/25 10:19 Nasal Secretion SARS-CoV-2 Antigen (Rapid) - Final 01/19/25 10:50 Stool Clostridioides difficile (PCR) - Final 01/19/25 10:50 Stool Enteric Bacteriology - Final 01/19/25 10:00 Stool Stool Lactoferrin - Final 01/19/25 10:50 Stool Stool Occult Blood (RYLEE) - Final Occult Blood Positive 01/11/25 21:20 Stool Stool Occult Blood (RYLEE) - Final D/C Instructions Discharge Diet: - (Carb control, low potassium, low phosphorous, ) Weight Bearing Status: Full weight bearing Keep extremity elevated above heart level: Legs Call your doctor if you observe: Fever of 101 or Higher, Inability to have a bowel movement, Shortness of breath, Dizziness, Fainting spells, Swelling in the ankles, Chest pain, Increased palpitations (irregular heartbeat), Uncontrolled pain and - (If the urine is cloudy or you have visible blood in the urine. Shaking chills, fever, night sweats, confusion - these are all signs of possible urinary tract infection. ) Catheter: - (peña to leg bag or to large bag........use the leg bag if you are out and about in the community. ) Drain: Falls DC O2, CPAP, BIPAP Needs Home O2 Discharge instructions: No Pending Tests Upon Discharge: none When: follow up/appointments are listed later in this document. Meaningful Use Info Meaningful Use Meaningful Use Diagnoses (Choose all that apply): None applicable Discharge Plan Admission Admit Date/Time: 01/11/25 14:25 Primary Reason for Your Visit: Debility due to partial colectomy/abd abscesses. Attending Provider: Marie Patino Primary Care Provider: Trinity Coronado Consulting Providers: Judson Matute; Len Wilson Instructions Patient Instructions: TURP, CKD Dc, TAVR Additional Instructions / Restrictions: 1. You have done an amazing job on rehab. You could not stand up by yourself when you first got here and now you are climbing a full flight of stairs. You are much stronger now and you are ready for what comes next. You had a heart attack while you were at [facility]. You have also had congestive heart failure. Normally when the heart squeezes it squeezes 55-65% of the blood out. Your heart squeezes only 35% of the blood out. Sometimes the rest can back up into the lungs and cause shortness of breath with exertion, swelling in your legs, shortness of breath when lying flat in bed and fatigue. You are going to need to have a cardiac catheterization after you are discharged and possibly an Aortic valve replacement. The cath is to make sure you do not have any significant disease in the arteries of the heart that would cause it not to squeeze well or would cause a heart attack. Valve replacements can now sometimes be done through a catheter and you do not have to have the chest opened surgically. I have given you some information on TAVR (transaortic valve replacement). Getting the heart taken care of is your #1 priority. 2. You have chronic kidney disease. There are 5 stages of chronic kidney failure and you are in stage 4 (severe). Because of the kidney failure your body retains potassium and phosphorous. You will now have to follow a diet low in potassium and phosphorous to keep these levels from getting too high. You are also on medications to help keep the potassium and the magnesium within normal limits. You will be seeing Dr. Wilson to help keep your kidneys in the best shape possible and prevent further kidney damage. I am hopeful that there will be some improvement in the kidney function when the heart gets better. 3. You retain urine. This is most likely due to enlargement of the prostate. We have tried medication and they either do not work effectively to control the problem OR they cause your BP to drop with standing. Unfortunately we had to reinsert the Peña catheter prior to you discharging home. At some point you will need to see a urologist to address this problem and you may need surgery. This is not a priority right now........the heart is the priority. Catheters can become infected. The signs that you may have a urinary tract infection include fever, chills, night sweats, pain in the pelvic area and confusion. Often as we get older we do not have fevers and the only sign of an infection may be confusion. If you have any of the symptoms call your doctor. Also call if the urine becomes very cloudy or you have visible blood in the urine. Sometimes the urine will become very malodorous. You will have a home health nurse checking on the Peña.........if you notice something is different let the nurse know. 4. I want you to weigh yourself every morning after urinating (naked or wearing the same clothes everyday) and keep a record. You should have a digital scale for accuracy. The first time you weigh yourself when you get home will be your baseline. If your weight goes up by 3 lbs OR you have swelling in the ankles or increased shortness of breath take 1 Lasix tab daily until the weight is back to your baseline. Watch your salt intake......salt makes you retain water. 5. You are on a lot less insulin now than you were at admission to rehab. You will be taking the long acting insulin in the morning with breakfast. You will take 14 units. With meals you will be taking the aspartame (short acting insulin) 3 units. If the blood sugar prior to a meal is > 180 take an extra 1 unit. If the blood sugar is > 220 take 2 extra units. Check your blood sugar before meals and at bedtime....just like we were doing in the hospital. Take the record of the blood sugars to your appt with Dr. Garcia. If your blood sugars are less than 100 or greater than 250 over the weekend call me for instructions. 6. It has been a pleasure getting to know you and your family. You are in a good place now to move forward with the additional testing you need and hopefully a valve replacement. It is important to KEEP MOVING. Do the exercises the therapists have given you everyday so you do not lose ground. If you get short of breath or lightheaded sit down and take a rest for a few minutes. If you or any of your family have any questions after you leave rehab please DO NOT HESITATE TO CALL ME. OFFICE: [phone] CELL: [phone] NURSES STATION ON REHAB: [phone] Discharge Orders/Prescriptions Prescriptions: New carvedilol 12.5 mg Tablet 12.5 mg PO BIDCM Qty: 60 0RF isosorbide dinitrate 10 mg Tablet 10 mg PO TID@0700,1200,1700 Qty: 90 0RF loperamide 2 mg Capsule 4 mg PO Q6H Qty: 240 0RF ipratropium bromide 42 mcg (0.06 %) [place],Non-Aerosol 2 spray NASAL BID Qty: 1 0RF fluticasone propion-salmeterol 232-14 mcg/actuation Aerosol Powdr Breath Activated 1 inh inhalation Q12 Qty: 1 0RF Rx Instructions: rinse mouth after every use pantoprazole 40 mg Tablet,Delayed Release (Dr/Ec) 40 mg PO BID Qty: 60 0RF mirtazapine 15 mg Tablet 15 mg PO 2100 Qty: 30 0RF simethicone 80 mg Tablet,Chewable 80 mg PO PCHS Qty: 120 0RF magnesium chloride [Mag 64] 64 mg Tablet,Delayed Release (Dr/Ec) 64 mg PO BID Qty: 60 0RF Daily Fiber (psyllium-aspart) 3 gram Powder In Packet 1 packet PO TID Qty: 90 0RF insulin glargine-yfgn 100 unit/mL (3 mL) Insulin Pen 14 unit subcut 0700 Qty: 2 0RF insulin aspart U-100 100 unit/mL (3 mL) insulin pen 3 unit subcut TID Qty: 2 0RF sodium bicarbonate 650 mg tablet 650 mg PO TID Qty: 90 0RF furosemide [Lasix] 80 mg tablet See Rx Instructions .ROUTE .COMPLEX Qty: 20 0RF Rx Instructions: take 1 tab in the morning if wt increases by 3 lbs. Continued aspirin 81 MG tablet 81 mg PO DAILY@0800 gabapentin 300 mg capsule 300 mg PO QHS acetaminophen 325 mg capsule 650 mg PO Q4H PRN (Reason: fever or pain) Discontinued tamsulosin 0.4 MG capsule 0.4 mg PO QHS carvedilol [Coreg] 6.25 mg tablet 6.25 mg PO BID Rx Instructions: must administer with a meal/food finasteride [Proscar] 5 mg tablet 5 mg PO DAILY isosorbide dinitrate [Isordil Titradose] 5 mg tablet 10 mg PO TID Rx Instructions: allow nitrate-free interval of 12-14 hrs per 24-hr period ciprofloxacin HCl 500 mg tablet 500 mg PO DAILY Referrals / Follow Up: Jeremias Carrero [Other] - 02/07/25 1:40 pm (Remove Peña at 8am on 02/07/25) Jack Mota-Cardiology [Other] - 03/06/25 3:20 pm () Len Wilson MD [Med Staff - Consulting] - (office wants pt. to make appt after DC) Kingston Garcia DO [Med Staff - Bristle Machine Operator] - 02/16/25 11:00 am Disposition Disposition (needs filled in before D/C Order can be placed): Home Health Service Charges/Coding Visit Charges Inpatient E&M: 11024 Disch Hosp >30min
--- NOTE | 2025-02-02 15:41 | WOUNDNOTE ---
Ostomy appliance changed again with patient and . reviewed emptying the appliance again with . pt has been emptying the appliance himself. cleansed peristomal skin with warm water. pat dry. placed paste ring around stoma and applied a new 2 piece convex Trish appliance. Pt prefers the 2 piece appliances over the 1 piece for now. supply list was sent to home health care. Pt can most likely get pre cut appliances soon since his surgery was close to 8 weeks ago. stoma size measures around 7/8. would recommend flange #[id number] and pouch #[id number] once patient decides to go with precut appliances. pt will be sent home tomorrow with at least 3 appliances until they can be ordered by home health care.
[2025-02-02 18:00] VITALS: BP 131/48; PULSE 81; RESP 16; TEMP 36.1; O2SAT 99
[2025-02-02 21:45] VITALS: PULSE 81; RESP 16; O2SAT 99
[2025-02-02] MEDS: 0.9% Saline Lock 10 ML Syringe IV (22:19)
[2025-02-03 06:00] VITALS: BP 120/58; PULSE 81; RESP 17; TEMP 36.6
[2025-02-03] MEDS: Psyllium 1 PACKET PO (06:29)
[2025-02-03] MEDS: Insulin Glargine-YFGN 100 UNIT/ML Pen 14 UNIT SC (08:08)
[2025-02-03] MEDS: Isosorbide DN 10 MG Tablet PO ×2 (08:09→11:44)
[2025-02-03] MEDS: Magnesium Chloride 64 MG Delay Rel.Tablet PO (08:09)
[2025-02-03] MEDS: Heparin Injection (Vial) 5,000 UNIT/ML VIAL 5000 UNIT SC (08:10)
[2025-02-03] MEDS: Fluticasone/Salmeterol 232-14 Inhaler 1 PUFF INHALATION (08:10)
[2025-02-03] MEDS: Arthritis Pain Compound 60 CLICK TUBE TOPICAL (08:10)
[2025-02-03 08:12] VITALS: BP 129/59; PULSE 81
--- NOTE | 2025-02-03 08:29 | NURSING ---
Reviewed insulin administration with pt. Patient able to safely demonstrate and administer insulin.
[2025-02-03 09:15] VITALS: BMI 25.9
--- NOTE | 2025-02-03 13:13 | NURSING ---
Educated pt on peña care and leg bag change. pt able to demonstrate use and care.
== END 2025-02-03 13:25 | disposition home health service (06) | DRG 949 ==
PROVIDERS: Admitting Provider Internal Medicine; PCP Nurse Practitioner Family; Referring Provider Internal Medicine; Visit Provider Internal Medicine
DX: T81.43XD Infection following a procedure, organ and space surgical site, subsequent encounter (principal); I21.A1 Myocardial infarction type 2; I50.23 Acute on chronic systolic (congestive) heart failure; E43 Unspecified severe protein-calorie malnutrition; E87.20 Acidosis, unspecified; E87.1 Hypo-osmolality and hyponatremia; N18.4 Chronic kidney disease, stage 4 (severe); I13.0 Hypertensive heart and chronic kidney disease with heart failure and stage 1 through stage 4 chronic kidney disease, or unspecified chronic kidney disease; G45.3 Amaurosis fugax; N17.9 Acute kidney failure, unspecified; I42.9 Cardiomyopathy, unspecified; E83.39 Other disorders of phosphorus metabolism; D63.1 Anemia in chronic kidney disease; J44.9 Chronic obstructive pulmonary disease, unspecified; E11.65 Type 2 diabetes mellitus with hyperglycemia; I27.20 Pulmonary hypertension, unspecified; I35.0 Nonrheumatic aortic (valve) stenosis; E11.42 Type 2 diabetes mellitus with diabetic polyneuropathy; Z93.2 Ileostomy status; E87.5 Hyperkalemia; E83.42 Hypomagnesemia; I95.1 Orthostatic hypotension; M48.061 Spinal stenosis, lumbar region without neurogenic claudication; E11.22 Type 2 diabetes mellitus with diabetic chronic kidney disease; E11.620 Type 2 diabetes mellitus with diabetic dermatitis; M76.61 Achilles tendinitis, right leg; K21.9 Gastro-esophageal reflux disease without esophagitis; E78.5 Hyperlipidemia, unspecified; D50.9 Iron deficiency anemia, unspecified; I25.10 Atherosclerotic heart disease of native coronary artery without angina pectoris; R33.8 Other retention of urine; Z79.899 Other long term (current) drug therapy; Z98.1 Arthrodesis status; Z87.891 Personal history of nicotine dependence; B37.2 Candidiasis of skin and nail; N40.1 Benign prostatic hyperplasia with lower urinary tract symptoms; Z68.24 Body mass index [BMI] 24.0-24.9, adult; Z79.82 Long term (current) use of aspirin; G89.29 Other chronic pain; R13.12 Dysphagia, oropharyngeal phase; Y83.6 Removal of other organ (partial) (total) as the cause of abnormal reaction of the patient, or of later complication, without mention of misadventure at the time of the procedure
CPT/HCPCS: 36415; 36569; 71046; 72100; 73610; 80048; 80053; 80069; 82274; 82962; 83630; 83735; 83880; 83993; 84100; 84550; 85014; 85018; 85025; 85027; 85652; 86140; 86850; 86900; 86901; 87493; 87506; 87633; 87811; 92507; 92523; 92526; 92610; 93005; 94640; 97110; 97112; 97116; 97124; 97129; 97130; 97162; 97167; 97530; 97535; 97802; 97803; P9016; A4216; J1938

== ENCOUNTER → 2025-02-12 | Outpatient (CLI) | payer MEDICARE, OTHER, SELFPAY ==
--- NOTE | 2025-02-12 15:10 | VDLE_ITS ---
Reason For Study Reason For Study: Pain LLE RIGHT LEFT CFV is compressible, spontaneous, phasic, competent GSV is normal. and demonstrates normal augmentation. CFV is compressible, spontaneous, phasic, competent, Procedure and demonstrates normal augmentation. This is a venous duplex using B-mode, color flow and FV is compressible, spontaneous, phasic, competent spectral Doppler. and demonstrates normal augmentation. Exam performed in department. POP V is compressible, spontaneous, phasic, competent A preliminary report was called and/or faxed to and demonstrates normal augmentation. Trinity Coronado [employer] GUIDE. T/P Trunk is compressible. PTV is compressible. LT PerV is compressible. VL/Venous Duplex US, Unilateral Interpretation Summary Deep veins of the left lower extremity are patent and compressible segmentally. There is no evidence of left lower extremity deep vein thrombosis. Valvular competence appears intact within the p roximal deep venous system on the left . The left great saphenous vein appears patent and compressible segmentally. The right common femoral vein is patent and compressible . Ordering Physician: Trinity Coronado Referring Physician: Trinity Coronado Performed By: Trinity Root, RDCS, RVT
== END | disposition home or self-care (01) ==
PROVIDERS: PCP Nurse Practitioner Family; Referring Provider Nurse Practitioner Family; Visit Provider Nurse Practitioner Family
DX: M79.662 Pain in left lower leg (principal)
CPT/HCPCS: 93971

== ENCOUNTER 2025-02-19 01:52 | Inpatient (IN) | payer MEDICARE, OTHER, SELFPAY ==
[2025-02-19] VITALS (30 sets, daily range): BP systolic 97–158; BP diastolic 55–103; PULSE 78–125; RESP 12–29; TEMP 35.9–36.9; O2SAT 89–100; BMI 28.0; BMI 25.4
--- NOTE | 2025-02-19 01:55 | EKG12_ITS ---
Test Reason : DYSRHYTHMIA Blood Pressure : */* mmHG Vent. Rate : 111 BPM Atrial Rate : 111 BPM P-R Int : 166 ms QRS Dur : 142 ms QT Int : 376 ms P-R-T Axes : 57 -24 103 degrees QTcB Int : 511 ms Sinus tachycardia Left bundle branch block Abnormal ECG Confirmed by DILIA SABA, MEHDI ([id number]), dictionary editor MEREDITH ABDULLAHI ([id number]) on 02/19/2025 1:04:30 PM Referred By: Confirmed By: MEHDI DOBBS MD
--- NOTE | 2025-02-19 01:58 | ED.VIS.DYS ---
HPI History of Present Illness Chief Complaint: Shortness of Breath Informant: patient, family and EMS Narrative Narrative: 79-year-old male in respiratory distress brought by EMS, he stated started around dinnertime it was mild, but when he laid down to sleep he became worse. No chest discomfort. No recent cough. No fevers or chills. He vomited once, no abdominal pain. No leg swelling or calf pain. Per EMS pulse ox 65% on room air, he is not on home oxygen, he put him on a nonrebreather and given a duo nebulizer treatment which helped a little they were able to get him up into the 90s. Patient recently is home from rehab for about 1-2 weeks, he had back surgery in November and subsequently somehow developed pneumatosis coli, and needed to be transferred to [facility] According to family where he underwent total colectomy with ileostomy, and his stay was complicated by congestive heart failure which was determined to be related to a bad aortic valve and now he is in line to at some point get a TAVR. 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 Left atrial enlargement Mild pulmonary hypertension Cardiomyopathy Other severe protein-calorie malnutrition History of diabetes mellitus Essential (primary) hypertension Diverticulosis Acute renal failure superimposed on stage 4 chronic kidney disease Diabetic polyneuropathy Iron deficiency anemia Irregular heart beat CKD (chronic kidney disease), stage IV Wears glasses Wears dentures BPH (benign prostatic hyperplasia) History of diverticulitis Former smoker Leg cramps History of echocardiogram Hypertrophic scar Carotid stenosis, left Sebaceous cyst Amaurosis fugax of right eye Sciatica Hyperlipidemia Osteoarthritis Hemorrhoid GERD (gastroesophageal reflux disease) HTN (hypertension) Home Medications ?Medication ?Instructions ?Recorded ?Last Taken ?Type aspirin 81 mg tablet,delayed 81 mg PO DAILY@0800 heart health 04/16/17 11/26/24 09:00 History release gabapentin 300 mg capsule 300 mg PO QHS PAIN 10/31/24 11/25/24 22:30 History acetaminophen 325 mg capsule 650 mg PO Q4H PRN fever or pain 01/11/25 Unknown History carvedilol 12.5 mg tablet 12.5 mg PO BIDCM #60 tabs 02/02/25 Unknown Rx fluticasone 232 mcg-salmeterol 14 1 inh inhalation Q12 #1 ea 02/02/25 Unknown Rx mcg/actuation breath activated powdr insulin aspart U-100 100 unit/mL 3 unit (0.03 mL) subcut TID #2 pens 02/02/25 Unknown Rx (3 mL) subcutaneous pen insulin glargine-yfgn 100 unit/mL 14 unit (0.14 mL) subcut 0700 #2 02/02/25 Unknown Rx (3 mL) subcutaneous pen pens ipratropium bromide 42 mcg (0.06 2 spray NASAL BID #1 BOTTLE 02/02/25 Unknown Rx %) nasal spray isosorbide dinitrate 10 mg tablet 10 mg PO TID@0700,1200,1700 #90 02/02/25 Unknown Rx tabs loperamide 2 mg capsule 4 mg (2 x 2 mg) PO Q6H #240 caps 02/02/25 Unknown Rx magnesium chloride 64 mg 64 mg PO BID #60 tabs 02/02/25 Unknown Rx (magnesium chloride) tablet,delayed release (Mag 64) mirtazapine 15 mg tablet 15 mg PO 2100 #30 tabs 02/02/25 Unknown Rx pantoprazole 40 mg tablet,delayed 40 mg PO BID #60 tabs 02/02/25 Unknown Rx release psyllium husk 3 gram oral powder 1 packet PO TID #90 ea 02/02/25 Unknown Rx packet (Daily Fiber (psyllium-aspartame)) simethicone 80 mg chewable tablet 80 mg PO PCHS #120 tabs 02/02/25 Unknown Rx sodium bicarbonate 650 mg tablet 650 mg PO TID #90 tabs 02/02/25 Unknown Rx furosemide 80 mg tablet (Lasix) 80 mg PO PRN PRN edema 02/19/25 Unknown History Allergy/AdvReac Type Severity Reaction Status Date / Time atorvastatin (From Lipitor) Allergy INTOLERANCE Verified 02/19/25 01:53 ezetimibe (From Zetia) Allergy MYALGIA Verified 02/19/25 01:53 pravastatin Allergy MYALGIAS Verified 02/19/25 01:53 simvastatin (From Zocor) Allergy INTOLERANCE Verified 02/19/25 01:53 sitagliptin (From Januvia) Allergy INTOLERANCE Verified 02/19/25 01:53 tetanus and diphtheria Allergy Rash Verified 02/19/25 01:53 toxoids ciprofloxacin (From Cipro) AdvReac Intermediate achilles Verified 02/19/25 01:53 tendonitis Dajness-GDF-GeO Reductase AdvReac Other Verified 02/19/25 01:53 Inhibitor (Nslpuvv-Ugd-Nft Reductase Inhibitor) Family History Father Diabetes Heart disease Myocardial infarction Mother CAD (coronary artery disease) Arthritis Surgical History History of right-sided carotid endarterectomy H/O drainage of abscess History of lumbar fusion History of ileostomy History of right hemicolectomy History of right-sided carotid endarterectomy (~11/2017) History of umbilical hernia S/P ventral herniorrhaphy S/P inguinal hernia repair S/P colonoscopy Social History household members: spouse Smoking Status: Former smoker alcohol intake: never substance use type: does not use ROS ROS ED Constitutional Constitutional ED: Reports fatigue; Denies chills or fever(s) Eyes Eyes: Denies change in vision or diplopia ENT ENT ED: Denies rhinorrhea or sore throat Cardiovascular Cardiovascular: Reports lightheadedness and orthopnea; Denies chest pain, palpitations or syncope Respiratory/Chest Respiratory/Chest: Reports dyspnea and orthopnea; Denies cough Gastrointestinal Gastrointestinal: Reports nausea and vomiting; Denies abdominal pain or diarrhea Genitourinary Genitourinary ED: Denies dysuria or hematuria Musculoskeletal Musculoskeletal: Denies back pain or neck pain Integumentary Denies abscess or rash Neurologic Neurologic: Denies headache(s), paresthesias or weakness Psychiatric Psychiatric: Denies suicidal thoughts EXAM Physical Exam Const Vital Signs: 02/19/25 01:52 02/19/25 01:52 02/19/25 01:55 Temperature 97.3 F L Temperature Source Axillary Pulse Rate 125 H Respiratory Rate 29 H Respiratory Effort Short of Breath Respiratory Depth Deep Respiratory Pattern Tachypnea Blood Pressure 158/103 H Blood Pressure Mean 121 Pulse Ox 94 100 Oxygen Delivery Method Non-Rebreather Non-Rebreather Bi-pap Oxygen Flow Rate (L/min) 15 15 Fraction of Inspired Oxygen (FIO2) 70 02/19/25 02:00 02/19/25 02:22 02/19/25 02:30 Temperature Temperature Source Pulse Rate 119 H 113 H 111 H Respiratory Rate 25 H 21 H 24 H Respiratory Effort Respiratory Depth Respiratory Pattern Tachypnea Blood Pressure 150/82 H 129/79 H Blood Pressure Mean 104 95 Pulse Ox 100 98 94 Oxygen Delivery Method Bi-pap Bi-pap Oxygen Flow Rate (L/min) Fraction of Inspired Oxygen (FIO2) 100 70 02/19/25 02:36 02/19/25 03:00 02/19/25 03:30 Temperature Temperature Source Pulse Rate 110 H 100 97 Respiratory Rate 23 H 18 16 Respiratory Effort Respiratory Depth Respiratory Pattern Tachypnea Blood Pressure 120/69 118/69 Blood Pressure Mean 86 85 Pulse Ox 97 97 94 Oxygen Delivery Method Room Air Bi-pap Oxygen Flow Rate (L/min) Fraction of Inspired Oxygen (FIO2) 40 30 02/19/25 04:00 02/19/25 04:30 02/19/25 05:00 Temperature Temperature Source Pulse Rate 94 91 93 Respiratory Rate 17 16 16 Respiratory Effort Respiratory Depth Respiratory Pattern Blood Pressure 112/60 102/63 109/69 Blood Pressure Mean 77 76 82 Pulse Ox 95 95 95 Oxygen Delivery Method Bi-pap Bi-pap Nasal Cannula Oxygen Flow Rate (L/min) 4 Fraction of Inspired Oxygen (FIO2) 30 30 02/19/25 05:30 02/19/25 06:00 02/19/25 06:30 Temperature Temperature Source Pulse Rate 95 90 93 Respiratory Rate 17 17 18 Respiratory Effort Respiratory Depth Respiratory Pattern Blood Pressure 98/58 L 99/67 113/72 Blood Pressure Mean 71 77 85 Pulse Ox 93 96 96 Oxygen Delivery Method Nasal Cannula Nasal Cannula Nasal Cannula Oxygen Flow Rate (L/min) 3.5 3.5 3.5 Fraction of Inspired Oxygen (FIO2) 02/19/25 07:00 Temperature Temperature Source Pulse Rate 90 Respiratory Rate 18 Respiratory Effort Respiratory Depth Respiratory Pattern Blood Pressure 97/64 Blood Pressure Mean 75 Pulse Ox 98 Oxygen Delivery Method Nasal Cannula Oxygen Flow Rate (L/min) Fraction of Inspired Oxygen (FIO2) Positive well nourished and well developed General Appearance ED: well developed and NAD HEENT Reports moist mucous membranes normocephalic and atraumatic Eyes PERRL and EOMs intact bilaterally Neck full ROM and supple Resp Resp Narrative: Mild respiratory distress able to converse. Rhonchorous throughout all lung lucero worse in the bases similar bilaterally trachea midline. Cardio regular rate, regular rhythm and no murmurs GI non-tender and non-distended GI Narrative: Ileostomy right lower quadrant intact no blood, stool is in the bag Auscultation: normoactive bowel sounds Palpation: soft Back/Spine no CVA tenderness General Back: other FROM Extremity normal to inspection General Extremety ED: Negative for edema, pulses abnormal or tenderness General Extremity: Negative for edema or pulses abnormal Neuro oriented x3, CN's II-XII intact bilaterally and no sensory deficits noted Sensorium / Orientation: awake and alert Motor Exam: general weakness Psych mental status grossly normal Skin no rashes or lesions noted and no wounds MDM MDM MDM Narrative Medical decision making narrative: After evaluating patient I had respiratory placed him on BiPAP and perform an EKG which shows a left bundle branch block but nothing else acute, and obtain an ABG which is reassuring now that he is not hypoxic anymore. 1 view chest x-ray on my interpretation consistent with his clinical exam, pulmonary edema. Congruent with this, his lactate is normal and his white blood count is not elevated. I ordered Lasix 80 mg IV. He is being scheduled for a TAVR evaluation in a couple weeks, he has severe aortic stenosis although I do not have access to a recent echo, and therefore I am holding off on giving him any nitroglycerin. With the BiPAP and oxygen, he is breathing much better, satting well, his heart rate has decreased. He has chronic renal failure, his creatinine is similar, his potassium is a little high at 5.7, he has no acute EKG changes from this, still showing a left bundle similar to prior. Discussed with cardiology Dr. Hernández, who agrees transferring him to a higher level of care that can provide urgent valve replacement evaluation is most appropriate. The patient has been at [facility] Relatively recently, I spoke with the chief fundraising officer Dr. Landry who accepted patient, but to their waiting list because they do not have any ICU beds and they have ED orders waiting on ICU bed so he will not likely get one anytime today. I also called [facility] as the patient/family want to stay close and stay in the [facility] system which they already are in and established with, however they do not do TAVR/valve replacements there. The [facility] system also has beds available at [facility] and [place] but patient and family do not want to go that far. They would prefer to wait for the bed at [facility] And stay here temporarily if available. In the meantime, we will give the patient a break off of BiPAP and he is doing very well on a 3.5 L nasal cannula, and has been off of BiPAP for an hour. He is breathing well at rest and not hypoxic on a nasal cannula. I discussed with [facility], they wanted me to call back later after he has been off of BiPAP for a while longer, and they would have me speak with a different physician to see if we could get him accepted to a bed other than the ICU in which case he may obtain a bed sooner. For these reasons I kept him in the ER for now so that we could hopefully get him transferred sooner. Sent for repeat potassium level after the Lasix, as he had good urine output around 700 cc out after the Lasix 80 mg. Repeat potassium level came down to 5.3 which is just barely over the upper limit of normal, so I think we can continue to monitor this without treating him with other emergent treatments since he had no specific EKG changes at 5.7. Patient off BiPAP 2.5 hours doing well on 3.5 L nasal cannula with stable vital signs. I called [facility] Again, however they do not think it is going to get him a bed sooner than 1-2 days even if he can go to a non-critical care bed, and recommend admitting the patient locally. We are able to provide the necessary medical care short of valve replacement/evaluation here, discussed with hospitalist as well as cardiology here who are comfortable with that plan. Patient is accepted at [facility] and waitlisted there. Lab Data Attestation: I reviewed the patient's lab results. Labs: Laboratory Results - last 24 hr 02/19/25 02/19/25 02/19/25 02:04 04:15 06:26 WBC 7.6 RBC 3.51 L Hgb 10.2 L Hct 31.2 L MCV 88.9 MCH 29.1 MCHC 32.7 RDW Std Deviation 46.6 H RDW Coeff of Disha 14.6 Plt Count 456 H MPV 10.3 Immature Gran % (Auto) 0.400 Neut % (Auto) 73.9 H Lymph % (Auto) 14.4 L [place] % (Auto) 8.3 Eos % (Auto) 1.8 Baso % (Auto) 1.2 H Absolute Neuts (auto) 5.6 Absolute Lymphs (auto) 1.10 Nucleated RBC % 0 Sodium 132 L Potassium 5.7 H 5.3 H Chloride 98 Carbon Dioxide 20.4 L Anion Gap 13 BUN 35 H Creatinine 2.37 H Estim Creat Clear Calc 24.54 L Est GFR (MDRD) Non-Af 27 L BUN/Creatinine Ratio 14.6 Glucose 222 H Lactic Acid 1.2 Calcium 9.2 Troponin T High Sens 99 H* Troponin T Hi Sens 2 Hr 108 H* [place] [address] H ABG Data ABG results: ABG 02/19/25 02:21 Specimen Type ART Sample Site R Radial pH 7.42 Bicarbonate Actual 21.6 L Total CO2 23 Base Excess -3 L O2 Saturation 96 O2 % 50.0 ABG pCO2 33.1 L ABG pO2 80 [place] Test Positive O2 Delivery Device BiPAP Vent Mode Not entered Clinical Comments 12/07 12 50% Radiography Diagnostic Testing: Clinical Impression(s) from Imaging Studies Chest X-Ray 02/19/25 02:14 IMPRESSION: Interval development of a pulmonary edema pattern, severe pneumonia is a secondary consideration. Advise correlation. Reading Location: [place] [address] Rhythm Strip Rhythm Strip: Sinus Tach Rate: 115 Ectopy: None EKG Initial EKG: Attestation: I personally reviewed and interpreted this EKG as follows: Interpretation: Sinus Tachycardia and LBBB Prior EKG tracings: available for review Prior: Unchanged Management Discussion w/another healthcare provider: Hospitalist and Steam Frame Operator (cardiology Dr. Hernández) Critical Care Time Critical Care Time: Yes Critical care time (excluding procedures): 30-74 minutes (47 min), Including time spent:, Discussing w/Patient &/or Family/Channel Cementer Outsole Machine, Discussing w/Consultants, Arranging Admission or Transfer and Performing Direct Patient Care at Bedside Discharge Plan Triage Chief Complaint: Shortness of Breath ED Provider: Manish August Dx/Rx/DC Orders Clinical Impression: Acute hypoxemic respiratory failure, Severe aortic stenosis, Acute pulmonary edema, Chronic renal failure, Acute hyperkalemia Prescriptions: No Action aspirin 81 MG tablet 81 mg PO DAILY@0800 gabapentin 300 mg capsule 300 mg PO QHS acetaminophen 325 mg capsule 650 mg PO Q4H PRN (Reason: fever or pain) carvedilol 12.5 mg Tablet 12.5 mg PO BIDCM Qty: 60 0RF isosorbide dinitrate 10 mg Tablet 10 mg PO TID@0700,1200,1700 Qty: 90 0RF loperamide 2 mg Capsule 4 mg PO Q6H Qty: 240 0RF ipratropium bromide 42 mcg (0.06 %) [place],Non-Aerosol 2 spray NASAL BID Qty: 1 0RF fluticasone propion-salmeterol 232-14 mcg/actuation Aerosol Powdr Breath Activated 1 inh inhalation Q12 Qty: 1 0RF Rx Instructions: rinse mouth after every use pantoprazole 40 mg Tablet,Delayed Release (Dr/Ec) 40 mg PO BID Qty: 60 0RF mirtazapine 15 mg Tablet 15 mg PO 2100 Qty: 30 0RF simethicone 80 mg Tablet,Chewable 80 mg PO PCHS Qty: 120 0RF magnesium chloride [Mag 64] 64 mg Tablet,Delayed Release (Dr/Ec) 64 mg PO BID Qty: 60 0RF Daily Fiber (psyllium-aspart) 3 gram Powder In Packet 1 packet PO TID Qty: 90 0RF insulin glargine-yfgn 100 unit/mL (3 mL) Insulin Pen 14 unit subcut 0700 Qty: 2 0RF insulin aspart U-100 100 unit/mL (3 mL) insulin pen 3 unit subcut TID Qty: 2 0RF sodium bicarbonate 650 mg tablet 650 mg PO TID Qty: 90 0RF furosemide [Lasix] 80 mg tablet 80 mg PO PRN PRN (Reason: edema) Rx Instructions: take 1 tab in the morning if wt increases by 3 lbs. PRN; Primary Care Provider: Trinity Coronado Referrals: Trinity Coronado, PILE DRIVER OPERATOR HELPER-C [Primary Care Provider] - Print Language: Rwandan
[2025-02-19 02:12] LABS: Hematocrit 31.2 % (40-54); Hemoglobin 10.2 g/dL (13.0-16.5); Immature Granulocytes Count 0.030 X10^3/uL (0.0-0.0); Mean Corp Hgb Conc 32.7 g/dL (32-36); Mean Corpuscular Volume 88.9 fL (80-94); Mean Platelet Vol. 10.3 fl (6.2-12.0); NRBC Flagged by Analyzer 0 % (0-5); Platelet Count 456 K/mm3 (150-450); RBC Distribution Width CV 14.6 % (11.6-14.6); RBC Distribution Width SD 46.6 fl (35.1-43.9); Red Blood Count 3.51 M/mm3 (4.6-6.2); White Blood Count 7.6 K/mm3 (4.4-11.0)
--- NOTE | 2025-02-19 02:14 | RAD_ITS ---
PROCEDURE: CHEST 1 VIEW (PORTABLE) 02/19/2025 REASON FOR EXAM: SOB TECHNIQUE: Frontal view of the chest. COMPARISON: 01/24/2025 FINDINGS: Surgical clips right base of neck. Normal heart size. Old rib fractures. Mildly under aerated lungs. Interval development of bilateral lung opacities, central predominant, slightly asymmetric to the right. Blunted angles. No large effusion or pneumothorax. RAD/Chest 1 View (Portable) IMPRESSION: Interval development of a pulmonary edema pattern, severe pneumonia is a second trent consideration. Advise correlation. Reading Location: [place] [address]
--- OUTSIDE RECORDS SUMMARY | 2025-02-19 02:23 | XMS RPT_ITS | CCD ---
Author Organization [facility] [place] Care Team Providers Care Supervising Architect Name Role Phone SHENG LAND Unavailable Unavailable SHENG LAND Unavailable Unavailable MIKE SIERRA Unavailable Unavailable BURAK CHRISTSTARR Unavailable Unavailable BURAK CHRISTOPHER Unavailable Unavailable ASHELY-HOSSIENY, ROXANE Unavailable Unavailabl e BONNIE PORTILLO Unavailable Unavailable TOMASA ESTRELLA Unavailable Unavailable TRICE RAE Unavailable Unavailable RITA ENGLISH Unavailable Unavailable BURAK, CHRISTOPHER Unavailable Unavailable Dr. Guillaume Hancock Attending Provider [phone] Guillaume Hancock Referring Provider Dajuan, WINDOW ASSEMBLER-C Trinity Primary Care Provider Dajuan, WINDOW ASSEMBLER-C [place] Referring Provider [phone] Terell Espino Attending Provider Dajuan, WINDOW ASSEMBLER-C [place] Primary Care Provider Dajuan, WINDOW ASSEMBLER-C [place] Referring Provider [phone] Terell Espino Attending Provider Dajuan WINDOW ASSEMBLER-C, Trinity Primary Care Provider Dajuan WINDOW ASSEMBLER-C, Trinity Attending Provider Dajuan WINDOW ASSEMBLER-C, Trinity Referring Provider [phone] Bill Colon MD Attending Provider Dr. Stevenson Hernández MD Attending Provider Dr. Bill Colon MD Referring Provider Dajuan WINDOW ASSEMBLER-C, [place] Primary Care Provider Dajuan WINDOW ASSEMBLER-C, Trinity Referring Provider Dajuan WINDOW ASSEMBLER-C, Trinity Attending Provider Dr. Rita Garcia DO Attending Provider [phone] Radha MOSHER, Dr. Onofre Referring Provider [phone] Isaiah SABA, Dr. Khan Admit Provider Roman SABA, Dr. Carr Other Provider Huan MOSHER, Dr. Angel Other Provider Isaiah SABA, Dr. Khan Other Provider Roman SABA, Dr. Carr Attending Provider Huan MOSHER, Dr. Angel Attending Provider Betina Blackman Attending Provider Isaiah SABA, Dr. Khan Admit Provider Roman SABA, Dr. Carr Other Provider Huan MOSHER, Dr. Angel Other Provider Venus SABA, Rolf Referring Provider Venus SABA, Rolf Emergency Provider Dajuan WINDOW ASSEMBLER, Demotte Primary Care Provider Betina Blackman Attending Provider Rolf Donovan MD Attending Provider Luis SABA, Dr. Antonio Attending Provider Bry SABA, Dr. Arnulfo Campos Admit Provider Bry SABA, Dr. Arnulfo Campos Attending Provider Cale SABA, Dr. Black Emergency Provider [phone] Cale SABA, Dr. Black Emergency Provider Dr. Jeremy Faith DO Admit Provider Dr. Jeremy Faith DO Attending Provider Steve SABA, Dr. Harrington Other Provider Marcell MOSHER, Dr. Luna Other Provider [phone] Dajuan WINDOW ASSEMBLER-C, [place] Primary Care Provider Edgar MD, Dr. Gamino Attending Provider Isaiah SABA, Dr. Khan Referring Provider Dajuan WINDOW ASSEMBLER-C, Trinity Referring Provider Isaiah SABA, Dr. Khan Attending Provider Dajuan WINDOW ASSEMBLER-C, Trinity Attending Provider Radha MOSHER, Dr. Onofre Attending Provider [phone] Radha MOSHER, Dr. Onofre Referring Provider Isaiah SABA, Dr. Khan Admit Provider Isaiah SABA, Dr. Khan Other Provider Roman SABA, Dr. Carr Other Provider Huan MOSHER, Dr. Angel Other Provider Betina Blackman Attending Provider Roman SABA, Dr. Carr Attending Provider Huan MOSHER, Dr. Angel Attending Provider Venus SABA, Rolf Attending Provider Rolf Donovan MD Referring Provider Venus SABA, Rolf Emergency Provider Luis SABA, Dr. Antonio Attending Provider Bry SABA, Dr. Arnulfo Campos Admit Provider Bry SABA, Dr. Arnulfo Campos Attending Provider Cale SABA, Dr. Black Emergency Provider Marcell MOSHER, Dr. Luna Admit Provider [phone] Dr. Jeremy Faith DO Attending Provider Steve SABA, Dr. Harrington Other Provider Dr. Zahira Ruggiero MD Attending Provider Dr. Zahira Ruggiero MD Referring Provider Dr. Jeremy Faith DO Other Provider Edgar SABA, Dr. Washington Referring Provider Sementi DO, Dr. Marie Vidal Admit Provider Sementi DO, Dr. Marie Vidal Attending Provide r Sementi DO, Dr. Marie Vidal Referring Provide r Friend DO, Dr. Roper Other Provider Sementi DO, Dr. Marie Vidal Other Provider Friend DO, Dr. Roper Attending Provider JEREMIAS MEYERS Consulting Unavailable DAJUAN, GROVE Primary Care Unavailable JANNA COONEY Attending Unavailable DUC RHODES Admitting Unavailable DAJUAN, GROVE Primary Care Unavailable POSTLETHWAIT, PRERNA MORSE Attending Unava ilable TANNER LIEBERMAN Admitting Unavailable DAJUAN, GROVE Primary Care Unavailable VLADIMIR MADSEN Referring Unavailable TANPHAICHITR, NATTHAVAT Consulting Unavaila ble SHIVA MACE Attending Unavailable Dajuan, Trinity Attending Unavailable Dajuan, Demotte Primary Care Unavailable Dajuan, Demotte Primary Care Unavailable Rita Garcia Attending Unavailable Jeremy Faith Attending Unavailable Jeremy Faith Admitting Unavailable Dajuan, Demotte Primary Care Unavailable Len Wilson Consulting Unavailable Sementi, Marie Vidal Admitting Unavaila ble Dajuan, Demotte Primary Care Unavailable Sementi, Marie Vidal Referring Unavaila ble Sementi, Marie Vidal Attending Unavaila ble Sementi, Marie Vidal Consulting Unavaila ble Bill Colon Referring Unavailable Raad Colonag Admitting Unavailable Bill Colon Attending Unavailable Dajuan, Trinity Primary Care Unavailable Lilly Owens Consulting Unavailable Jeanne Pressley Consulting Unavailable Dajuan, Demotte Primary Care Unavailable ReodicRolf vidal Attending Unavailable Reodica Rolf Referring Unavailable Dajuan, Trinity Attending Unavailable Dajuan, Trinity Referring Unavailable Dajuan, Trinity Primary Care Unavailable Colon, Bill Referring Unavailable Raad Colonag Attending Unavailable Dajuan, Trinity Primary Care Unavailable Dajuan, Trinity Primary Care Unavailable Rita Garcia Attending Unavailable Rita Garcia Referring Unavailable Judson Matute Consulting Unavailable Raad Colonag Referring Unavailable Colon, Bill Admitting Unavailable Betina James Attending Unavailable Dajuan, Trinity Primary Care Unavailable Lilly Owens Consulting Unavailable Jeanne Pressley Consulting Unavailable Colon, Bill Consulting Unavailable Dajuan, Trinity Primary Care Unavailable EdgarStevenson camilo Attending Unavailable Colon, Bill Attending Unavailable Dajuan, Trinity Referring Unavailable Dajuan, Trinity Primary Care Unavailable Zahira Ruggiero Referring Unavailable Dajuan, Trinity Primary Care Unavailable Zahira Ruggiero Attending Unavailable Dajuan, Trinity Primary Care Unavailable Edgar, Stevenson Attending Unavailable Edgar, Washington Referring Unavailable Colon, Bill Referring Unavailable Dajuan, Trinity Primary Care Unavailable Edgar, Washington Attending Unavailable Colon, Bill Attending Unavailable Dajuan, Trinity Referring Unavailable Dajuan, Trinity Primary Care Unavailable Colon, Bill Attending Unavailable Dajuan, Trinity Referring Unavailable Dajuan, Trinity Primary Care Unavailable Jeremy Faith Attending Unavailable Jeremy Faith Admitting Unavailable Dajuan, Trinity Primary Care Unavailable Steve, Jayaprakas Consulting Unavailable Jeremy Faith Consulting Unavailable Dajuan, Trinity Primary Care Unavailable Semenhiro, Marie Vidal Referring Unavaila ble Sementi, Marie Vidal Attending Unavaila ble Sementi, Marie Vidal Admitting Unavaila ble Ra Jujuhsaan Consulting Unavailable Steve, Jayaprakas Consulting Unavailable Dajuan, Trinity Attending Unavailable Dajuan, Trinity Referring Unavailable Dajuan, Trinity Primary Care Unavailable Dajuan, Trinity Primary Care Unavailable Zahira Smith Attending Unavailable Reodica, Rolf Referring Unavailable Colon, Bill Attending Unavailable Judson Matute Attending Unavailable Raad Colonag Attending Unavailable Lilly Owens Attending Unavailable Jeanne Pressley Attending Unavailable Steve, Jayaprakas Consulting Unavailable Dajuan, Trinity Primary Care Unavailable Bry, Arnulfo Chi Attending Unavailable Bry, Arnulfo Chi Admitting Unavailable Allergies Allergy Classification Reported Allergen(s) Allergy Type Date of Onset Reaction(s) Facility (16 sources) tetanus and diphtheria toxoids; Translations: [tetanus and diphtheria toxoids] Allergy to substance 9 Rash [facility] (15 sources) Ftcddkl-Ojp-Dtu Reductase Inhibitor Propensity to adverse reactions 9 Other [facility] (7 sources) atorvastatin; Translations: [ATORVASTATIN CALCIUM] Drug Allergy 6 Intolerance [facility] Work Phone: (12 sources) ezetimibe; Translations: [EZETIMIBE] Drug Allergy 6 Intolerance [facility] Comment on above: INTOLERANCE (12 sources) Pravastatin; Translations: [PRAVASTATIN] Drug Allergy 6 Intolerance [facility] Comment on above: INTOLERANCE (12 sources) Simvastatin; Translations: [SIMVASTATIN] Drug Allergy 5 INTOLERANCE [facility] (12 sources) SITagliptin; Translations: [SITAGLIPTIN] Drug Allergy 5 Intolerance [facility] (7 sources) Tetanus Vaccines And Toxoid; Translations: [TETANUS VACCINES AND TOXOID] Propensity to adverse reactions 5 [facility] Work Phone: (5 sources) atorvastatin Drug Allergy 5 INTOLERANCE [facility] (2 sources) Ciprofloxacin Drug Allergy 5 [facility] (1 source) atorvastatin Drug Allergy 5 [facility] Repository (1 source) Ciprofloxacin Drug Allergy 5 [facility] Rep[facility] (1 source) ezetimibe Drug Allergy 5 [facility] (1 source) Pravastatin Drug Allergy 5 [facility] (1 source) Simvastatin Drug Allergy 5 [facility] Rep[facility] (1 source) SITagliptin Drug Allergy 5 [facility] Rep[facility] (1 source) Zlwlbvj-Xmy-Tkr Reductase Inhibitor Drug allergy (disorder) 5 [facility] Repository Medications Current Medications Medication Drug Class(es) Dates Sig (Normalized) Sig (Original) acetaminophen 325 mg oral capsule (9 sources) Start: 01-11-2025 Start: 11-29-2024 End: 01-11-2025 aspirin 81 mg delayed release oral tablet (20 sources) Platelet Aggregation Inhibitor, Nonsteroidal Anti-inflammatory Drug Start: 06-01-2008 carvedilol 12.5 mg oral tablet (9 sources) alpha-Adrenergic Melissa, beta-Adrenergic Melissa Start: 02-02-2025 Start: 01-11-2025 End: 02-02-2025 Start: 12-26-2024 take 1 tablet by latisha th twice daily at mealtime carvedilol (COREG) 6.25 mg tablet 1 tablet by ORAL/FEEDING TUBE route two times a day with meals. 180 tablet 12/26/2024 Active ferrous sulfate 325 mg oral tablet (7 sources) Start: 09-15-2024 take 1 tablet by mouth once daily Ferrous Sulfate (Feosol) 325 mg (65 mg iron) tablet Active 325 mg PO daily September 15, 2024 1:00am 60 actuat fluticasone propionate 0.232 mg/actuat / salmeterol xinafoate 0.014 mg/actuat dry powder inhaler (2 sources) Corticosteroid, beta2-Adrenergic Agonist Start: 02-02-2025 furosemide 80 mg oral tablet (2 sources) Loop Diuretic Start: 02-02-2025 gabapentin 300 mg oral capsule (20 sources) Anti-epileptic Agent Start: 10-31-2024 Start: 04-16-2017 End: 10-31-2024 Start: 04-16-2017 End: 10-31-2024 take 1 capsule by mouth at bedtime Gabapentin 100 MG capsule Discontinued 100 mg PO AT BEDTIME April 16, 2017 12:00am October 31, 2024 9:58am 3 ml insulin aspart, human 100 unt/ml pen injector (2 sources) Insulin Analog Start: 02-02-2025 3 ml insulin glargine 100 unt/ml pen injector (5 sources) Insulin Analog Start: 12-26-2024 inject 14 [IU] by subcutaneous injection once daily in the morning insulin glargine 100 unit/mL (3 mL) Inject 14 Units subcutaneously every morning. 12/26/2024 Active insulin lispro 100 unt/ml injectable solution (10 sources) Insulin Analog Start: 12-26-2024 inject 1 [IU] by subcutaneous injection once daily at bedtime insulin lispro 100 unit/mL injection Inject 1 Units subcutaneously daily at bedtime. ADMINISTER CORRECTIONAL INSULIN REGARDLESS OF MEAL OR NUTRITION INTAKE Custom Scale. If Blood Glucose (mg/dL) is: Less than 110= 0 units, 111-150 = 0 units, 151-200 = 0 units, 201-275 = 1 units, 276-350 = 2 units, 351-425 = 3 units, Greater than 425 = 4 units, Notify provider if 2 consecutive blood glucose values in the previous 24 hours are greater than 350 mg/mL and there have been no changes to the insulin regimen in the previous 24 hours. 12/26/2024 Active Start: 12-26-2024 inject 4 [IU] by sub cutaneous injection every twenty-four hours at mealtime, then inject 4 [IU] by subcutaneous injection every twenty-four hours at mealtime insulin lispro 100 unit/mL injection Inject 4 Units subcutaneously with meals. ADMINISTER 4 units and slide scale with meals: Custom Scale. If Blood Glucose (mg/dL) is: Less than 110= 0 units, 111-150= 0 units, 151-200= 1 units, 201-250= 2 units, 251-300= 3 units, 301-350= 4 units, 351-400= 5 units, Greater than 400= 6 units, Notify provider if 2 consecutive blood glucose values in the previous 24 hours are greater than 350 mg/mL and there have been no changes to the insulin regimen in the previous 24 hours. 12/26/2024 Active ipratropium bromide 0.042 mg/actuat metered dose nasal spray (2 sources) Anticholinergic Start: 02-02-2025 lisinopril 40 mg oral tablet (17 sources) Angiotensin Converting Enzyme Inhibitor Start: 10-31-2024 take 1 tablet by mouth once daily Lisinopril 40 mg tablet Active 40 mg PO DAILY October 31, 2024 12:00am Start: 04-16-2017 End: 10-31-2024 loperamide hydrochloride 2 mg oral capsule (2 sources) Opioid Agonist Start: 02-02-2025 magnesium chloride 598 mg delayed release oral tablet (2 sources) Start: 02-02-2025 mirtazapine 15 mg oral tablet (2 sources) Start: 02-02-2025 pantoprazole 40 mg delayed release oral tablet (2 sources) Proton Pump Inhibitor Start: 02-02-2025 simethicone 80 mg chewable tablet (2 sources) Start: 02-02-2025 sodium bicarbonate 650 mg oral tablet (2 sources) Start: 02-02-2025 tamsulosin hydrochloride 0.4 mg oral capsule (20 sources) alpha-Adrenergic Melissa Start: 06-30-2017 take 1 capsule by mouth once daily at bedtime tamsulosin ER (FLOMAX) 0.4 mg cp24 Take 1 capsule by mouth daily at bedtime. 30 capsule 5 06/30/2017 Active Start: 04-16-2017 End: 02-02-2025 Start: 04-16-[address] [facility] at bedtime Tamsulosin 0.4 MG capsule Active 0.4 mg PO AT BEDTIME April 16, 2017 12:00am (8 sources) Start: 02-02-2025 Start: 09-15-2024 End: 01-11-2025 Start: 04-16-2017 End: 04-05-2023 Completed/Discontinued Medications Medication Drug Class(es) Dates Sig (Normalized) Sig (Original) acetaminophen 325 mg / HYDROcodone bitartrate 5 mg oral tablet (15 sources) Opioid Agonist Start: 11-30-2017 End: 12-16-2017 Start: 11-30-2017 End: 12-16-2017 Hydrocodone-Acetaminophen 1 TABLET tablet Discontinued 1 {tbl} PO EVERY 6 HOURS NEEDED as needed for Pain 04 28November 30, 2017 12:00am December 16, 2017 1:00pm Start: 11-30-2017 End: 12-16-2017 take 1 tablet by mouth every six hours as needed Hydrocodone-Acetaminophen Discontinued 1 TABLET PO EVERY 6 HOURS NEEDED 04 28November 29, 2017 11:00pm December 16, 2017 12:00pm amLODIPine 10 mg oral tablet (8 sources) Dihydropyridine Calcium Channel Melissa Start: 11-27-2024 End: 01-11-2025 ascorbic acid 500 mg oral capsule (9 sources) Vitamin C Start: 09-15-2024 End: 01-11-2025 cholecalciferol 0.025 mg ora l capsule (14 sources) Vitamin D Start: 04-05-2023 End: 01-11-2025 Start: 01-15-2016 take [address] [facility] once daily Cholecalciferol, Vitamin D3, 5,000 unit cap Take 1 capsule by mouth once daily. 0 01/15/2016 Suspended ciprofloxacin 500 mg oral tablet (2 sources) Quinolone Antimicrobial Start: 01-11-2025 End: 02-02-2025 clopidogrel 75 mg oral tablet (20 sources) P2Y12 Platelet Inhibitor Start: 11-26-2017 End: 11-30-2017 COMPOUNDED PRESCRIPTION (1 source) Start: 06-11-2009 COMPOUNDED PRESCRIPTION lipo-flavinoid for ear 0 06/11/2009 Suspended docusate sodium 50 mg / sennosides, shelter 8.6 mg oral tablet (7 sources) Start: 11-29-2024 End: 01-11-2025 Start: 11-29-2024 Sennosides-Doc usate Sodium (Stimulant Laxative Plus) 8.6-50 mg Tablet Active 2 {tbl} PO TWICE A DAY as needed for constipation November 29, 2024 7:29am finasteride 5 mg oral tablet (7 sources) 5-alpha Reductase Inhibitor Start: 12-27-2024 End: 02-02-2025 glimepiride 2 mg oral tablet (17 sources) Sulfonylurea Start: 04-16-2017 End: 01-11-2025 Start: 04-16-2017 take 1 tablet by latisha th at breakfast Glimepiride 2 MG tablet Active 2 mg PO WITH BREAKFAST April 16, 2017 12:00am hydroCHLOROthiazide 25 mg or al tablet (16 sources) Thiazide Diuretic Start: 04-16-2017 End: 01-11-2025 isosorbide dinitrate 5 mg or al tablet (9 sources) Nitrate Vasodilator Start: 01-11-2025 End: 02-02-2025 Start: 12-26-2024 lidocaine hydrochloride 0.02 mg/mg topical gel (3 sources) Antiarrhythmic, Amide Local Anesthetic Start: 02-07-2025 End: 02-07-2025 lidocaine urojet 2 % 6 mL topical gel (GLYDO) Start: 02-07-2025 End: 02-07-2025 lidocaine urojet 2 % 6 mL to pical gel (GLYDO) Start: 02-07-2025 End: 02-07-2025 6 mL, URETHRAL, ONCE, 1 dose , On Wed02/07/25 at 1400, Prior to UDS Procedure metFORMIN hydrochloride 1000 mg oral tablet (16 sources) Biguanide Start: 04-02-2017 End: 01-11-2025 methocarbamol 500 mg oral tablet (7 sources) Muscle Relaxant Start: 11-29-2024 End: 01-11-2025 oxyCODONE hydrochloride 5 mg oral tablet (7 sources) Opioid Agonist Start: 11-29-2024 End: 01-11-2025 pioglitazone 15 mg oral tablet (20 sources) Peroxisome Proliferator Receptor alpha Agonist, Peroxisome Proliferator Receptor gamma Agonist, Thiazolidinedione Start: 04-16-2017 End: 04-05-2023 raNITIdine 150 mg oral tablet (13 sources) Histamine-2 Receptor Antagonist Start: 04-16-2017 End: 04-05-2023 take 1 tablet by mouth at bedtime Ranitidine Hcl 150 MG tablet Discontinued 150 mg PO AT BEDTIME April 16, 2017 12:00am April 05, 2023 1:18pm zinc acetate 25 mg oral capsule (13 sources) Start: 04-05-2023 End: 01-11-2025 Start: 04-05-2023 take 1 capsule by mo [facility] once daily Zinc Acetate 25 mg (zinc) capsule Active 25 mg PO DAILY April 05, 2023 12:00am Problems Active Problems Problem Classification Problem Date Documented Da te Episodic/Chronic Abdominal pain (6 sources) Abdominal pain; Translations: [Unspecified abdominal pain] Onset: 12-22-2024 Resolved: 01-11-2025 01-11-2025 Episodic Acute and unspecified renal failure (20 sources) Acute renal failure syndrome; Translations: [Acute kidney failure, unspecified] Onset: 12-11-2024 12-12-2024 Episodic Acute myocardial infarction (20 sources) Myocardial infarction; Translations: [Myocardial infarction type 2] Onset: 12-03-2024 12-12-2024 Chronic Bacterial infection; unspecified site (6 sources) Infection due to Pseudomonas aeruginosa; Translations: [Other bacterial infections of unspecified site] Onset: 01-11-2025 01-11-2025 Episodic Cardiac dysrhythmias (6 sources) Nonsustained ventricular tachycardia ; Translations: [NSVT (nonsustained ventricular tachycardia)] Onset: 12-09-2024 12-12-2024 Chronic Chronic kidney disease (20 sources) Chronic kidney disease stage 1; Translations: [Chronic kidney disease, stage 1] Onset: 10-14-2006 Resolved: 03-22-2017 03-22-2017 Chronic Chronic obstructive pulmonary disease and bronchiectasis (3 sources) Chronic obstructive lung disease; Translations: [Chronic obstructive pulmonary disease, unspecified] Onset: 02-05-2025 02-03-2025 Chronic Complication of device; implant or graft (6 sources) Altered bowel function; Translations: [Other complications of enterostomy] Onset: 12-11-2024 12-12-2024 Chronic Complications of surgical procedures or medical care (20 sources) Trauma and postoperative pulmonary insufficiency; Translations: [Acute postprocedural respiratory failure] Onset: 12-08-2024 Resolved: 12-26-2024 12-24-2024 Episodic Conduction disorders (11 sources) Right bundle branch block; Translations: [Unspecified right bundle-branch block] Onset: 12-13-2024 12-18-2024 Chronic Congestive heart failure; nonhypertensive (16 sources) Heart failure with reduced ejection fraction; Translations: [Unspecified systolic (congestive) heart failure] Onset: 12-13-2024 12-18-2024 Chronic Deficiency and other anemia (16 sources) Anemia; Translations: [Anemia, unspecified] 11-28-2024 Episodic Deficiency and other anemia (10 sources) Iron deficiency anemia; Translations: [Iron deficiency anemia, unspecified] 12-26-2024 Episodic Deficiency and other anemia (1 source) Anemia, unspecified; Translations: [Anemia, unspecified] Onset: 02-05-2025 Episodic Delirium, dementia, and amnestic and other cognitive disorders (10 sources) Frailty; Translations: [Age-related physical debility] Onset: 12-25-2024 12-25-2024 Chronic Diabetes mellitus with complications (20 sources) Renal disorder due to type 2 diabetes mellitus; Translations: [Type 2 diabetes mellitus with other diabetic kidney complication] Onset: 09-07-2009 Resolved: 04-06-2013 12-02-2024 Chronic Diabetes mellitus without complication (8 sources) Diabetes mellitus; Translations: [Type 2 diabetes mellitus without complications] 12-26-2024 Chronic Diabetes mellitus without complication (19 sources) Hyperglycemia; Translations: [Hyperglycemia, unspecified] Onset: 12-10-2024 11-28-2024 Episodic Diseases of white blood cells (19 sources) Leukocytosis; Translations: [Elevated white blood cell count, unspecified] Onset: 12-11-2024 11-28-2024 Chronic Disorders of lipid metabolism (11 sources) Mixed hyperlipidemia; Translations: [Mixed hyperlipidemia] Onset: 05-11-2016 05-11-2016 Chronic Diverticulosis and diverticulitis (16 sources) Perforation of sigmoid colon due to diverticulitis; Translations: [Diverticulitis of large intestine with perforation and abscess without bleeding] Onset: 12-02-2024 12-26-2024 Chronic Essential hypertension (20 sources) Benign essential hypertension; Translations: [Essential (primary) hypertension] Onset: 04-30-2005 12-02-2024 Chronic Fluid and electrolyte disorders (20 sources) Hypernatremia; Translations: [Hyperosmolality and hypernatremia] Onset: 12-11-2024 Resolved: 12-26-2024 12-12-2024 Episodic Genitourinary symptoms and ill-defined conditions (20 sources) Albuminuria ; Translations: [Proteinuria, unspecified] Onset: 11-23-2012 11-23-2012 Episodic Heart valve disorders (19 sources) Aortic stenosis, non-rheumatic ; Translations: [Nonrheumatic aortic (valve) stenosis] Onset: 12-09-2024 12-12-2024 Chronic Hyperplasia of prostate (13 sources) Benign prostatic hyperplasia; Translations: [Benign prostatic hyperplasia without lower urinary tract symptoms] Onset: 02-05-2025 12-26-2024 Chronic Hypertension with complications and secondary hypertension (7 sources) Hypertensive urgency ; Translations: [Hypertensive urgency] Onset: 08-10-2024 Resolved: 12-26-2024 12-18-2024 Chronic Intestinal obstruction without hernia (12 sources) Pseudo-obstruction of colon; 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] Onset: 12-02-2024 12-02-2024 Episodic Malaise and fatigue (13 sources) Asthenia; Translations: [Other malaise] Onset: 02-05-2025 12-26-2024 Episodic Mood disorders (5 sources) Depressive disorder; Translations: [Depression] Onset: 02-05-2025 01-12-2025 Chronic Mycoses (5 sources) Candidal intertrigo; Translations: [Candidiasis of skin and nail] Onset: 02-05-2025 02-02-2025 Episodic Nutritional deficiencies (20 sources) Vitamin D deficiency; Translations: [Vitamin D deficiency, unspecified] Onset: 10-10-2015 10-10-2015 Chronic Occlusion or stenosis of precerebral arteries (20 sources) Left carotid artery stenosis; Translations: [Occlusion and stenosis of left carotid artery] Onset: 02-05-2025 12-08-2018 Chronic Osteoarthritis (6 sources) Degenerative joint disease involving multiple joints; Translations: [Polyosteoarthritis, unspecified] Onset: 04-30-2005 11-21-2024 Chronic Other acquired deformities (20 sources) Lumbar spondylolisthesis; Translations: [Spondylolisthesis, lumbar region] 09-15-2024 Episodic Other acquired deformities (1 source) Spondylolisthesis, lumbar region; Translations: [Spondylolisthesis, lumbar region] Onset: 12-12-2024 Episodic Other aftercare (1 source) Encounter for surgical aftercare following surgery on the digestive system; Translations: [Encounter for surgical aftercare following surgery on the digestive system] Onset: 01-04-2025 Episodic Other and ill-defined heart disease (4 sources) Left atrial enlargement; Translations: [Cardiomegaly] 01-12-2025 Chronic Other and ill-defined heart disease (1 source) Cardiomegaly; Translations: [Cardiomegaly] Onset: 02-05-2025 Chronic Other circulatory disease (7 sources) H/O: hypertension; Translations: [Personal history of other diseases of the circulatory system] 01-03-2025 Episodic Other circulatory disease (4 sources) Orthostatic hypotension; Translations: [Orthostatic hypotension] 01-12-2025 Episodic Other circulatory disease (1 source) Orthostatic hypotension; Translations: [Orthostatic hypotension] Onset: 02-05-2025 Episodic Other connective tissue disease (18 sources) History of lumbar fusion; Translations: [Arthrodesis status] 11-28-2024 Episodic Other connective tissue disease (8 sources) Spasm; Translations: [Other muscle spasm] 12-26-2024 Episodic Other connective tissue disease (3 sources) Right achilles tendonitis; Translations: [Achilles tendinitis, right leg] 02-03-2025 Episodic Other connective tissue disease (1 source) Pain in left lower leg; Translations: [Pain in left lower leg] Onset: 02-16-2025 Episodic Other connective tissue disease (1 source) Arthrodesis status; Translations: [Arthrodesis status] Onset: 02-05-2025 Episodic Other connective tissue disease (1 source) Achilles tendinitis, right leg; Translations: [Achilles tendinitis, right leg] Onset: 02-05-2025 Episodic Other gastrointestinal disorders (6 sources) Ileostomy present; Translations: [Ileostomy status] Onset: 12-20-2024 12-22-2024 Chronic Other gastrointestinal disorders (1 source) Ileostomy status; Translations: [Ileostomy status] Onset: 02-05-2025 Chronic Other gastrointestinal disorders (12 sources) Disorder of colon; Translations: [Other specified diseases of intestine] 12-02-2024 Episodic Other gastrointestinal disorders (18 sources) Pneumatosis coli; Translations: [Other specified diseases of intestine] Onset: 12-02-2024 12-02-2024 Episodic Other gastrointestinal disorders (18 sources) Pneumoperitoneum; Translations: [Other specified disorders of peritoneum] Onset: 12-02-2024 12-02-2024 Episodic Other gastrointestinal disorders (6 sources) Intra-abdominal collection; Translations: [Other ascites] Onset: 12-12-2024 12-12-2024 Episodic Other gastrointestinal disorders (16 sources) Dysphagia; Translations: [Dysphagia, unspecified] Onset: 12-19-2024 12-19-2024 Episodic Other gastrointestinal disorders (4 sources) High output ileostomy; Translations: [Other specified symptoms and signs involving the digestive system and abdomen] 01-16-2025 Episodic Other gastrointestinal disorders (4 sources) Occult blood in stools; Translations: [Other fecal abnormalities] 01-20-2025 Episodic Other gastrointestinal disorders (4 sources) Oropharyngeal dysphagia; Translations: [Dysphagia, oropharyngeal phase] 01-12-2025 Episodic Other gastrointestinal disorders (1 source) Other ascites; Translations: [Intraabdominal fluid collection] Onset: 01-09-2025 Episodic Other gastrointestinal disorders (2 sources) Other specified diseases of intestine; Translations: [Pneumatosis coli] Onset: 12-02-2024 Episodic Other gastrointestinal disorders (2 sources) Other specified disorders of peritoneum; Translations: [Pneumoperitoneum] Onset: 12-02-2024 Episodic Other gastrointestinal disorders (1 source) Dysphagia, oropharyngeal phase; Translations: [Dysphagia, oropharyngeal phase] Onset: 02-05-2025 Episodic Other gastrointestinal disorders (1 source) Other specified symptoms and signs involving the digestive system and abdomen; Translations: [Other specified symptoms and signs involving the digestive system and abdomen] Onset: 02-05-2025 Episodic Other gastrointestinal disorders (1 source) Other fecal abnormalities; Translations: [Other fecal abnormalities] Onset: 02-05-2025 Episodic Other lower respiratory disease (6 sources) Radiologic infiltrate of lung ; Translations: [Other nonspecific abnormal finding of lung field] Onset: 12-13-2024 12-18-2024 Episodic Other lower respiratory disease (4 sources) Cough; Translations: [Cough] 01-24-2025 Episodic Other nervous system disorders (6 sources) Peripheral nerve disease ; Translations: [Polyneuropathy, unspecified] Onset: 12-01-2011 12-01-2011 Chronic Other non-traumatic joint disorders (4 sources) Acute ankle pain; Translations: [Pain in right ankle and joints of right foot] 02-02-2025 Episodic Other non-traumatic joint disorders (1 source) Pain in right ankle and joints of right foot; Translations: [Pain in right ankle and joints of right foot] Onset: 02-05-2025 Episodic Other nutritional; endocrine; and metabolic disorders (4 sources) Hypomagnesemia; Translations: [Hypomagnesemia] 01-12-2025 Chronic Other nutritional; endocrine; and metabolic disorders (4 sources) Hyperphosphatemia; Translations: [Other disorders of phosphorus metabolism] 02-02-2025 Chronic Other nutritional; endocrine; and metabolic disorders (1 source) Hypomagnesemia; Translations: [Hypomagnesemia] Onset: 02-05-2025 Chronic Other nutritional; endocrine; and metabolic disorders (1 source) Other disorders of phosphorus metabolism; Translations: [Other disorders of phosphorus metabolism] Onset: 02-05-2025 Chronic Other nutritional; endocrine; and metabolic disorders (11 sources) H/O: diabetes mellitus; Translations: [Personal history of other endocrine, nutritional and metabolic disease] 01-03-2025 Episodic Other nutritional; endocrine; and metabolic disorders (1 source) Personal history of other endocrine, nutritional and metabolic disease; Translations: [Personal history of other endocrine, nutritional and metabolic disease] Onset: 02-05-2025 Episodic Other screening for suspected conditions (not mental disorders or infectious disease) (6 sources) Blood urea abnormal; Translations: [Abnormal finding of blood chemistry, unspecified] Onset: 12-21-2024 12-22-2024 Episodic Other skin disorders (15 sources) Sebaceous cyst of skin; Translations: [Sebaceous cyst] 07-30-2018 Episodic Other skin disorders (15 sources) Hypertrophic scar; Translations: [Hypertrophic scar] 01-04-2020 Episodic Other upper respiratory disease (6 sources) Allergic rhinitis; Translations: [Allergic rhinitis, unspecified] Onset: 11-28-2012 11-28-2012 Chronic Other upper respiratory disease (6 sources) Hoarse; Translations: [Dysphonia] Onset: 12-19-2024 12-19-2024 Episodic Mayra-; endo-; and myocarditis; cardiomyopathy (except that caused by tuberculosis or sexually transmitted disease) (11 sources) Cardiomyopathy; Translations: [Cardiomyopathy, unspecified] Onset: 12-09-2024 12-12-2024 Chronic Peritonitis and intestinal abscess (2 sources) Peritoneal abscess; Translations: [Peritoneal abscess] Onset: 01-17-2025 Episodic Pulmonary heart disease (5 sources) Pulmonary hypertension, unspecified; Translations: [Mild pulmonary hypertension] Onset: 02-05-2025 01-12-2025 Chronic Residual codes; unclassified (6 sources) H/O Spinal surgery; Translations: [Other specified postprocedural states] Onset: 12-02-2024 12-02-2024 Episodic Residual codes; unclassified (6 sources) Tube feeding diet; Translations: [Other specified health status] Onset: 12-10-2024 12-12-2024 Episodic Residual codes; unclassified (7 sources) History of excision of intestinal structure; Translations: [Acquired absence of other specified parts of digestive tract] 01-03-2025 Episodic Residual codes; unclassified (5 sources) Urinary catheter in situ; Translations: [Presence of other specified devices] Onset: 01-09-2025 01-11-2025 Episodic Residual codes; unclassified (6 sources) History of partial resection of colon; Translations: [Acquired absence of other specified parts of digestive tract] 02-02-2025 Episodic Residual codes; unclassified (4 sources) Past history of procedure; Translations: [Other specified postprocedural states] 01-12-2025 Episodic Residual codes; unclassified (1 source) Acquired absence of other specified parts of digestive tract; Translations: [Acquired absence of other specified parts of digestive tract] Onset: 02-05-2025 Episodic Residual codes; unclassified (1 source) Other specified postprocedural states; Translations: [Other specified postprocedural states] Onset: 02-05-2025 Episodic Respiratory failure; insufficiency; arrest (adult) (16 sources) Acute hypoxemic and hypercapnic respiratory failure; Translations: [Acute respiratory failure with hypoxia] Onset: 12-13-2024 12-18-2024 Episodic Septicemia (except in labor) (10 sources) Sepsis; Translations: [Sepsis, unspecified organism] 12-26-2024 Episodic Spondylosis; intervertebral disc disorders; other back problems (20 sources) Spinal stenosis of lumbar region; Translations: [Spinal stenosis, lumbar region without neurogenic claudication] Onset: 06-01-2016 04-05-2023 Episodic Transient cerebral ischemia (15 sources) Amaurosis fugax of right eye; 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] 11-30-2017 Chronic Unclassified (1 source) Acute cough; Translations: [Acute cough] Onset: 02-05-2025 Unclassified (1 source) Acidosis, unspecified; Translations: [Acidosis, unspecified] Onset: 02-05-2025 Unclassified (1 source) Low back pain, unspecified; Translations: [Low back pain, unspecified] Onset: 09-15-2024 Past or Other Problems Problem Classification Problem Date Documented Date Episodic/Chronic Abdominal hernia (6 sources) Bilateral inguinal hernia; Translations: [Bilateral inguinal hernia, without obstruction or gangrene, not specified as recurrent] Onset: 06-23-2006 Resolved: 05-27-2007 11-21-2024 Episodic Hemorrhoids (6 sources) Bleeding hemorrhoids; Translations: [Unspecified hemorrhoids] Onset: 09-12-2009 Resolved: 03-22-2017 03-22-2017 Episodic Other ear and sense organ disorders (6 sources) Tinnitus; Translations: [Tinnitus] Onset: 04-30-2005 11-21-2024 Episodic Other hereditary and degenerative nervous system conditions (6 sources) Restless legs; Translations: [Restless legs syndrome] Onset: 11-25-2006 Resolved: 05-27-2007 11-21-2024 Chronic Other nervous system disorders (6 sources) Acute abdominal pain; Translations: [Other acute postprocedural pain] Onset: 11-19-2006 Resolved: 12-26-2024 12-11-2024 Episodic Other non-traumatic joint disorders (6 sources) Shoulder joint pain; Translations: [Pain in unspecified shoulder] Onset: 06-06-2008 Resolved: 09-07-2009 09-07-2009 Episodic Residual codes; unclassified (6 sources) Family history of ischemic heart disease; Translations: [Family history of ischemic heart disease and other diseases of the circulatory system] Onset: 06-11-2009 06-11-2009 Episodic Residual codes; unclassified (5 sources) Delirium; Translations: [Disorientation, unspecified] Onset: 12-25-2024 Resolved: 12-26-2024 12-26-2024 Episodic Results Test Name Value Interpretation Reference Range Facility Venous Duplex US, Unilateral on 02-12-2025 Venous Duplex US, Unilateral Normal [facility] Venous duplex ultrasound rep ortOrdered By: Berhane Murguia on 02-12-2025 US Vein [facility] Other Phone: CNOVon 02-07-2025 CNOV Normal [facility] CNPNon 02-07-2025 CNPN Normal [facility] Bedside Glucoseon 02-03-2025 FINGERSTICK GLU 179 mg/dL High [address] [place] [address] Comment on above: Result Comment: ROSA GEMENT OF PATIENT CARE PER NURSING PROTOCOL Performed By: #### L 501.080 ####[facility] [address] [place], [place], [id number] FINGERSTICK GLU 98 mg/dL Normal [address] [place] [address] Comment on above: Result Comment: ROSA GEMENT OF PATIENT CARE PER NURSING PROTOCOL Performed By: #### L 501.080 ####[facility] [address] [place], [place], [id number] [facility] deOrdered By: Marie Patino on 02-03-2025 Glucose [Mass/Vol] 179 mg/dL High [address] [place] [address] Anion gap in Serum or Plasma Ordered By: Marie Patino on 02-02-2025 Anion gap [Moles/Vol] 11 mmol/L 5-15 [facility] BUN/creatinine ratioOrdered By: Marie Patino on 02-02-2025 Urea nitrogen/Creatinine [Mass ratio] 19.5 mg/mg 10-20 [facility] Bedside Glucoseon 02-02-2025 FINGERSTICK GLU 111 mg/dL High [address] [place] [address] Comment on above: Result Comment: ROSA GEMENT OF PATIENT CARE PER NURSING PROTOCOL Performed By: #### L 501.080 ####[facility] [address] [place], [place], [id number] FINGERSTICK GLU 168 mg/dL High [address] [place] [address] Comment on above: Result Comment: ROSA GEMENT OF PATIENT CARE PER NURSING PROTOCOL Performed By: #### L 501.080 ####[facility] [address] [place], [address] FINGERSTICK GLU 86 mg/dL Normal 74-106 [facility] Comment on above: Result Comment: ROSA GEMENT OF PATIENT CARE PER NURSING PROTOCOL Performed By: #### L 501.080 ####[facility] [address] [place], [address] FINGERSTICK GLU 103 mg/dL Normal 74-106 [facility] Comment on above: Result Comment: ROSA GEMENT OF PATIENT CARE PER NURSING PROTOCOL Performed By: #### L 501.080 ####[facility] [address] [place], [address] Carbon dioxide, total [Moles /volume] in Central venous bloodOrdered By: Marie Patino on 02-02-2025 CO2 [Moles/Vol] 21.0 mmol/L 21.0-32.0 [facility] Chloride assayOrdered By: Jian Patino on 02-02-2025 Chloride [Moles/Vol] 100 mmol/L 98-108 [facility] Consultation - Nephrologyon 02-02-2025 Consultation - Nephrology Normal [facility] Discharge Instructionon 01-23 Discharge Instruction Normal [facility] Glomerular filtration rate ( GFR) estimation/1.73 sq m using serum, plasma, or whole bOrdered By: Marie Patino on 02-02-2025 GFR/1.73 sq M.predicted among non-blacks MDRD (S/P/Bld) [Vol rate/Area] 27 mL/min/{1.73_m2} Low >60 [facility] HH, Hemoglobin AND Hematocri ton 02-02-2025 Hematocrit (Bld) [Volume fraction] 24.7 % Low 40-54 [facility] Comment on above: Performed By: #### L 500.3600, L100.0600, L501.5200 ####[facility] [address] [place], [address] Hemoglobin (Bld) [Mass/Vol] 8.2 g/dL Low 13.0-16.5 [facility] Comment on above: Performed By: #### L 500.3600, L100.0600, L501.5200 ####[facility] [address] [place], [address] Hematocrit Auto (Bld) [Volum e fraction]Ordered By: Marie Rochehiro on 02-02-2025 Hematocrit (Bld) [Volume fraction] 24.7 % Low 40-54 [facility] Hemoglobin measurementOrdere d By: Marie Rochehiro on 02-02-2025 Hemoglobin (Bld) [Mass/Vol] 8.2 g/dL Low 13.0-16.5 [facility] Magnesiumon 02-02-2025 Magnesium [Mass/Vol] 1.5 mg/dL Normal 1.5-2.2 [facility] Comment on above: Performed By: #### L 500.3600, L100.0600, L501.5200 ####[facility] [address] [place], [address] Magnesium measurement (mass/ volume)Ordered By: Marie Rochehiro on 02-02-2025 Magnesium (Unsp spec) [Mass/Vol] 1.5 mg/dL 1.5-2.2 [facility] Potassium measurement (mass/ volume)Ordered By: Marie Rochehiro on 02-02-2025 Potassium (Unsp spec) [Mass/Vol] 5.0 mmol/L 3.3-5.1 [facility] Renal Profileon 02-02-2025 Albumin [Mass/Vol] 3.1 g/dL Low 3.4-4.8 [facility] Comment on above: Performed By: #### L 500.3600, L100.0600, L501.5200 ####[facility] [address] [place], [address] BUN/CRE 19.5 RATIO Normal 10-20 [facility] Comment on above: Performed By: #### L 500.3600, L100.0600, L501.5200 ####[facility] [address] [place], [address] Calcium [Mass/Vol] 9.2 mg/dL Normal 7.6-11.0 [facility] Comment on above: Performed By: #### L 500.3600, L100.0600, L501.5200 ####[facility] [address] [place], [address] Chloride [Moles/Vol] 100 mmol/L Normal 98-108 [facility] Comment on above: Performed By: #### L 500.3600, L100.0600, L501.5200 ####[facility] [address] [place], [address] CO2 [Moles/Vol] 21.0 mmol/L Normal 21.0-32.0 [facility] Comment on above: Performed By: #### L 500.3600, L100.0600, L501.5200 ####[facility] [address] [place], [address] Creatinine [Mass/Vol] 2.43 mg/dL High 0.70-1.20 [facility] Comment on above: Performed By: #### L 500.3600, L100.0600, L501.5200 ####[facility] [address] [place], [address] ECRCL 21.79 ml/min Low 50-250 [facility] Comment on above: Performed By: #### L 500.3600, L100.0600, L501.5200 ####[facility] [address] [place], [address] GAP 11 Normal 5-15 [facility] Comment on above: Performed By: #### L 500.3600, L100.0600, L501.5200 ####[facility] [address] [place], [address] GFR/1.73 sq M.predicted among non-blacks MDRD (S/P/Bld) [Vol rate/Area] 27 mL/min/{1.73_m2} Low >60 [facility] Comment on above: Result Comment: mL/m in/1.73m2 CKD-EPI Creatinine Equation (2020) Performed By: #### L 500.3600, L100.0600, L501.5200 ####[facility] [address] [place], [address] Glucose [Mass/Vol] 98 mg/dL Normal 70-99 [facility] Comment on above: Performed By: #### L 500.3600, L100.0600, L501.5200 ####[facility] [address] [place], [address] Phosphate [Mass/Vol] 5.2 mg/dL High 2.7-4.5 [facility] Comment on above: Performed By: #### L 500.3600, L100.0600, L501.5200 ####[facility] [address] [place], [address] Potassium [Moles/Vol] 5.0 mmol/L Normal 3.3-5.1 [facility] Comment on above: Performed By: #### L 500.3600, L100.0600, L501.5200 ####[facility] [address] [place], [address] Sodium [Moles/Vol] 132 mmol/L Low 133-145 [facility] Comment on above: Performed By: #### L 500.3600, L100.0600, L501.5200 ####[facility] [address] [place], [address] Urea nitrogen [Mass/Vol] 47 mg/dL High 4-19 [facility] Comment on above: Performed By: #### L 500.3600, L100.0600, L501.5200 ####[facility] [address] [place], [place], [id number] Serum creatinine measurement (mass/volume)Ordered By: Marie Patino on 02-02-2025 Creatinine [Mass/Vol] 2.43 mg/dL High 0.70-1.20 [facility] Serum glucose measurement (m ass/volume)Ordered By: Marie Patino on 02-02-2025 Glucose [Mass/Vol] 98 mg/dL 70-99 [facility] Serum or plasma albumin ivory urement (mass/volume)Ordered By: Marie Patino on 02-02-2025 Albumin [Mass/Vol] 3.1 g/dL Low 3.4-4.8 [facility] Serum or plasma calcium ivory urement (mass/volume)Ordered By: Marie Patino on 02-02-2025 Calcium [Mass/Vol] 9.2 mg/dL 7.6-11.0 [facility] Serum or plasma urea nitroge n measurement (mass/volume)Ordered By: Marie Patino on 02-02-2025 Urea nitrogen [Mass/Vol] 47 mg/dL High 4-19 [facility] Sodium levelOrdered By: Marie Patino on 02-02-2025 Sodium [Moles/Vol] 132 mmol/L Low 133-145 [facility] Stool Occult Blood iFOBon STOB Positive Normal [facility] Comment on above: Performed By: #### M 100.7900 ####[facility] [address] [place], [place], [id number] Stool gastrointestinal hemog lobin detection by immunologic methodOrdered By: Marie Rochehiro on 02-02-2025 Lower GI hemoglobin IA Ql (Stl) Positive Abnormal [facility] Bedside Glucoseon 02-01-2025 FINGERSTICK GLU 101 mg/dL Normal 74-106 [facility] Comment on above: Result Comment: ROSA LAWRENCE OF PATIENT CARE PER NURSING PROTOCOL Performed By: #### L 501.080 ####[facility] [address] [place], [place], [address] FINGERSTICK GLU 67 mg/dL Low 74-106 [facility] Comment on above: Result Comment: ROSA GEMENT OF PATIENT CARE PER NURSING PROTOCOL Performed By: #### L 501.080 ####[facility] [address] [place], [address] FINGERSTICK GLU 81 mg/dL Normal 74-106 [facility] Comment on above: Result Comment: ROSA GEMENT OF PATIENT CARE PER NURSING PROTOCOL Performed By: #### L 501.080 ####[facility] [address] [place], [address] FINGERSTICK GLU 109 mg/dL High 74-106 [facility] Comment on above: Result Comment: ROSA GEMENT OF PATIENT CARE PER NURSING PROTOCOL Performed By: #### L 501.080 ####[facility] [address] [place], [address] FINGERSTICK GLU 104 mg/dL Normal 74-106 [facility] Comment on above: Result Comment: ROSA GEMENT OF PATIENT CARE PER NURSING PROTOCOL Performed By: #### L 501.080 ####[facility] [address] [place], [address] FINGERSTICK GLU 139 mg/dL High 74-106 [facility] Comment on above: Result Comment: ROSA GEMENT OF PATIENT CARE PER NURSING PROTOCOL Performed By: #### L 501.080 ####[facility] [address] [place], [address] CNPNon 02-01-2025 CNPN Normal [facility] Bedside Glucoseon 01-31-2025 FINGERSTICK GLU 138 mg/dL High 74-106 [facility] Comment on above: Result Comment: ROSA GEMENT OF PATIENT CARE PER NURSING PROTOCOL Performed By: #### L 501.080 ####[facility] [address] [place], [address] FINGERSTICK GLU 100 mg/dL Normal 74-106 [facility] Comment on above: Result Comment: ROSA GEMENT OF PATIENT CARE PER NURSING PROTOCOL Performed By: #### L 501.080 ####[facility] [address] [place], [address] FINGERSTICK GLU 159 mg/dL High 74-106 [facility] Comment on above: Result Comment: ROSA GEMENT OF PATIENT CARE PER NURSING PROTOCOL Performed By: #### L 501.080 ####[facility] [address] [place], [address] FINGERSTICK GLU 87 mg/dL Normal 74-106 [facility] Comment on above: Result Comment: ROSA GEMENT OF PATIENT CARE PER NURSING PROTOCOL Performed By: #### L 501.080 ####[facility] [address] [place], [address] Basic Metabolic Profile (BMP )on 01-30-2025 BUN/CRE 22.8 RATIO High 10-20 [facility] Comment on above: Performed By: #### L 501.5200, L100.0500, L500.2500, L501.2300 ####[facility] [address] [place], [address] Calcium [Mass/Vol] 9.2 mg/dL Normal 7.6-11.0 [facility] Comment on above: Performed By: #### L 501.5200, L100.0500, L500.2500, L501.2300 ####[facility] [address] [place], [address] Chloride [Moles/Vol] 105 mmol/L Normal 98-108 [facility] Comment on above: Performed By: #### L 501.5200, L100.0500, L500.2500, L501.2300 ####[facility] [address] [place], [address] CO2 [Moles/Vol] 21.6 mmol/L Normal 21.0-32.0 [facility] Comment on above: Performed By: #### L 501.5200, L100.0500, L500.2500, L501.2300 ####[facility] [address] [place], [address] Creatinine [Mass/Vol] 1.93 mg/dL High 0.70-1.20 [facility] Comment on above: Performed By: #### L 501.5200, L100.0500, L500.2500, L501.2300 ####[facility] [address] [place], [address] ECRCL 27.44 ml/min Low 50-250 [facility] Comment on above: Performed By: #### L 501.5200, L100.0500, L500.2500, L501.2300 ####[facility] [address] [place], [address] GAP 11 Normal 5-15 [facility] Comment on above: Performed By: #### L 501.5200, L100.0500, L500.2500, L501.2300 ####[facility] [address] [place], [address] GFR/1.73 sq M.predicted among non-blacks MDRD (S/P/Bld) [Vol rate/Area] 35 mL/min/{1.73_m2} Low >60 [facility] Comment on above: Result Comment: mL/m in/1.73m2 CKD-EPI Creatinine Equation (2020) Performed By: #### L 501.5200, L100.0500, L500.2500, L501.2300 ####[facility] [address] [place], [address] Glucose [Mass/Vol] 134 mg/dL High 70-99 [facility] Comment on above: Performed By: #### L 501.5200, L100.0500, L500.2500, L501.2300 ####[facility] [address] [place], [address] Potassium [Moles/Vol] 4.6 mmol/L Normal 3.3-5.1 [facility] Comment on above: Performed By: #### L 501.5200, L100.0500, L500.2500, L501.2300 ####[facility] [address] [place], [address] Sodium [Moles/Vol] 137 mmol/L Normal 133-145 [facility] Comment on above: Performed By: #### L 501.5200, L100.0500, L500.2500, L501.2300 ####[facility] [address] [place], [address] Urea nitrogen [Mass/Vol] 44 mg/dL High 4-19 [facility] Comment on above: Performed By: #### L 501.5200, L100.0500, L500.2500, L501.2300 ####[facility] [address] [place], [address] Bedside Glucoseon 01-30-2025 FINGERSTICK GLU 247 mg/dL High 74-106 [facility] Comment on above: Result Comment: ROSA GEMENT OF PATIENT CARE PER NURSING PROTOCOL Performed By: #### L 501.080 ####[facility] [address] [place], [address] FINGERSTICK GLU 84 mg/dL Normal 74-106 [facility] Comment on above: Result Comment: ROSA GEMENT OF PATIENT CARE PER NURSING PROTOCOL Performed By: #### L 501.080 ####[facility] [address] [place], [address] FINGERSTICK GLU 205 mg/dL High 74-106 [facility] Comment on above: Result Comment: ROSA GEMENT OF PATIENT CARE PER NURSING PROTOCOL Performed By: #### L 501.080 ####[facility] [address] [place], [address] FINGERSTICK GLU 120 mg/dL High 74-106 [facility] Comment on above: Result Comment: ROSA LAWRENCE OF PATIENT CARE PER NURSING PROTOCOL Performed By: #### L 501.080 ####[facility] [address] [place], [address] CBC-Complete Blood Cnt No Di ffon 01-30-2025 Erythrocyte distribution width (RBC) [Ratio] 16.5 % High 11.6-14.6 [facility] Comment on above: Performed By: #### L 501.5200, L100.0500, L500.2500, L501.2300 ####[facility] [address] [place], [address] Hematocrit (Bld) [Volume fraction] 27.5 % Low 40-54 [facility] Comment on above: Performed By: #### L 501.5200, L100.0500, L500.2500, L501.2300 ####[facility] [address] [place], [address] Hemoglobin (Bld) [Mass/Vol] 8.9 g/dL Low 13.0-16.5 [facility] Comment on above: Performed By: #### L 501.5200, L100.0500, L500.2500, L501.2300 ####[facility] [address] [place], [address] MCH (RBC) [Entitic mass] 29.8 pg Normal 27.0-32.0 [facility] Comment on above: Performed By: #### L 501.5200, L100.0500, L500.2500, L501.2300 ####[facility] [address] [place], [address] MCHC (RBC) [Mass/Vol] 32.4 g/dL Normal 32-36 [facility] Comment on above: Performed By: #### L 501.5200, L100.0500, L500.2500, L501.2300 ####[facility] [address] [place], [address] MCV (RBC) [Entitic vol] 92.0 fL Normal 80-94 [facility] Comment on above: Performed By: #### L 501.5200, L100.0500, L500.2500, L501.2300 ####[facility] [address] [place], [address] Platelet mean volume (Bld) [Entitic vol] 10.8 fL Normal 6.2-12.0 [facility] Comment on above: Performed By: #### L 501.5200, L100.0500, L500.2500, L501.2300 ####[facility] [address] [place], [address] Platelets (Bld) [#/Vol] 370 10*3/uL Normal 150-450 [facility] Comment on above: Performed By: #### L 501.5200, L100.0500, L500.2500, L501.2300 ####[facility] [address] [place], [address] RBC (Bld) [#/Vol] 2.99 10*6/uL Low 4.6-6.2 [facility] Comment on above: Performed By: #### L 501.5200, L100.0500, L500.2500, L501.2300 ####[facility] [address] [place], [address] RDW SD 56.1 fl High 35.1-43.9 [facility] Comment on above: Performed By: #### L 501.5200, L100.0500, L500.2500, L501.2300 ####[facility] [address] [place], [address] WBC (Bld) [#/Vol] 5.7 10*3/uL Normal 4.4-11.0 [facility] Comment on above: Performed By: #### L 501.5200, L100.0500, L500.2500, L501.2300 ####[facility] [address] [place], [place], [id number] Erythrocyte distribution wid th ratioOrdered By: Marie Rochehiro on 01-30-2025 Erythrocyte distribution width (RBC) [Ratio] 16.5 % High 11.6-14.6 [facility] Erythrocyte distribution wid th standard deviationOrdered By: Marie Rochehiro on 01-30-2025 Erythrocyte distribution width (RBC) [Ratio] 56.1 fl High 35.1-43.9 [facility] MCV (mean corpuscular volume ) determinationOrdered By: Marie Rochehiro on 01-30-2025 MCV (RBC) [Entitic vol] 92.0 fL 80-94 [facility] Magnesiumon 01-30-2025 Magnesium [Mass/Vol] 1.4 mg/dL Low 1.5-2.2 [facility] Comment on above: Performed By: #### L 501.5200, L100.0500, L500.2500, L501.2300 ####[facility] [address] [place], [place], [id number] Mean corpuscular hemoglobin (MCH) determinationOrdered By: Marie Carey on 01-30-2025 MCH (RBC) [Entitic mass] 29.8 pg 27.0-32.0 [facility] Phosphoruson 01-30-2025 Phosphate [Mass/Vol] 4.1 mg/dL Normal 2.7-4.5 [facility] Comment on above: Performed By: #### L 501.5200, L100.0500, L500.2500, L501.2300 ####[facility] [address] [facility] [place], [place], [address] Platelet countOrdered By: Jian Patino on 01-30-2025 Platelets (Bld) [#/Vol] 370 10*3/uL 150-450 [facility] RBC Auto (Bld) [#/Vol]Ordere d By: Marie Patino on 01-30-2025 RBC (Bld) [#/Vol] 2.99 10*6/uL Low 4.6-6.2 [facility] White blood cell (WBC) count Ordered By: Marie Patino on 01-30-2025 WBC (Bld) [#/Vol] 5.7 10*3/uL 4.4-11.0 [facility] Bedside Glucoseon 01-29-2025 FINGERSTICK GLU 159 mg/dL High 74-106 [facility] Comment on above: Result Comment: ROSA GEMENT OF PATIENT CARE PER NURSING PROTOCOL Performed By: #### L 501.080 ####[facility] [address] [place], [address] FINGERSTICK GLU 177 mg/dL High 74-106 [facility] Comment on above: Result Comment: ROSA GEMENT OF PATIENT CARE PER NURSING PROTOCOL Performed By: #### L 501.080 ####[facility] [address] [place], [address] FINGERSTICK GLU 172 mg/dL High 74-106 [facility] Comment on above: Result Comment: ROSA GEMENT OF PATIENT CARE PER NURSING PROTOCOL Performed By: #### L 501.080 ####[facility] [address] [place], [address] FINGERSTICK GLU 87 mg/dL Normal 74-106 [facility] Comment on above: Result Comment: RSOA GEMENT OF PATIENT CARE PER NURSING PROTOCOL Performed By: #### L 501.080 ####[facility] [address] [place], [address] CNPNon 01-29-2025 CNPN Normal [facility] Bedside Glucoseon 01-28-2025 FINGERSTICK GLU 157 mg/dL High 74-106 [facility] Comment on above: Result Comment: ROSA GEMENT OF PATIENT CARE PER NURSING PROTOCOL Performed By: #### L 501.080 ####[facility] [address] [place], [address] FINGERSTICK GLU 181 mg/dL High 74-106 [facility] Comment on above: Result Comment: ROSA GEMENT OF PATIENT CARE PER NURSING PROTOCOL Performed By: #### L 501.080 ####[facility] [address] [place], [address] FINGERSTICK GLU 133 mg/dL High 74-106 [facility] Comment on above: Result Comment: ROSA GEMENT OF PATIENT CARE PER NURSING PROTOCOL Performed By: #### L 501.080 ####[facility] [address] [place], [address] FINGERSTICK GLU 88 mg/dL Normal 74-106 [facility] Comment on above: Result Comment: ROSA GEMENT OF PATIENT CARE PER NURSING PROTOCOL Performed By: #### L 501.080 ####[facility] [address] [place], [address] Bedside Glucoseon 01-27-2025 FINGERSTICK GLU 99 mg/dL Normal 74-106 [facility] Comment on above: Result Comment: ROSA GEMENT OF PATIENT CARE PER NURSING PROTOCOL Performed By: #### L 501.080 ####[facility] [address] [place], [address] FINGERSTICK GLU 274 mg/dL High 74-106 [facility] Comment on above: Result Comment: ROSA GEMENT OF PATIENT CARE PER NURSING PROTOCOL Performed By: #### L 501.080 ####[facility] [address] [place], [address] FINGERSTICK GLU 196 mg/dL High -106 [facility] Comment on above: Result Comment: ROSA GEMENT OF PATIENT CARE PER NURSING PROTOCOL Performed By: #### L 501.080 ####[facility] [address] [place], [address] FINGERSTICK GLU 137 mg/dL High 74-106 [facility] Comment on above: Result Comment: ROSA LAWRENCE OF PATIENT CARE PER NURSING PROTOCOL Performed By: #### L 501.080 ####[facility] [address] [place], [address] HH, Hemoglobin AND Hematocri ton 01-27-2025 Hematocrit (Bld) [Volume fraction] 25.0 % Low 40-54 [facility] Comment on above: Performed By: #### L 500.3600, L100.0600 ####[facility] [address] [place], [address] Hemoglobin (Bld) [Mass/Vol] 8.3 g/dL Low 13.0-16.5 [facility] Comment on above: Performed By: #### L 500.3600, L100.0600 ####[facility] [address] [place], [address] Renal Profileon 01-27-2025 Albumin [Mass/Vol] 3.0 g/dL Low 3.4-4.8 [facility] Comment on above: Performed By: #### L 500.3600, L100.0600 ####[facility] [address] [place], [address] BUN/CRE 23.6 RATIO High 10-20 [facility] Comment on above: Performed By: #### L 500.3600, L100.0600 ####[facility] [address] [place], [address] Calcium [Mass/Vol] 9.2 mg/dL Normal 7.6-11.0 [facility] Comment on above: Performed By: #### L 500.3600, L100.0600 ####[facility] [address] [place], [address] Chloride [Moles/Vol] 104 mmol/L Normal 98-108 [facility] Comment on above: Performed By: #### L 500.3600, L100.0600 ####[facility] [address] [place], [address] CO2 [Moles/Vol] 19.1 mmol/L Low 21.0-32.0 [facility] Comment on above: Performed By: #### L 500.3600, L100.0600 ####[facility] [address] [place], [address] Creatinine [Mass/Vol] 2.16 mg/dL High 0.70-1.20 [facility] Comment on above: Performed By: #### L 500.3600, L100.0600 ####[facility] [address] [place], [address] ECRCL 24.52 ml/min Low 50-250 [facility] Comment on above: Performed By: #### L 500.3600, L100.0600 ####[facility] [address] [place], [address] GAP 11 Normal 5-15 [facility] Comment on above: Performed By: #### L 500.3600, L100.0600 ####[facility] [address] [place], [address] GFR/1.73 sq M.predicted among non-blacks MDRD (S/P/Bld) [Vol rate/Area] 31 mL/min/{1.73_m2} Low >60 [facility] Comment on above: Result Comment: mL/m in/1.73m2 CKD-EPI Creatinine Equation (2020) Performed By: #### L 500.3600, L100.0600 ####[facility] [address] [place], [address] Glucose [Mass/Vol] 151 mg/dL High 70-99 [facility] Comment on above: Performed By: #### L 500.3600, L100.0600 ####[facility] [address] [place], [address] Phosphate [Mass/Vol] 4.8 mg/dL High 2.7-4.5 [facility] Comment on above: Performed By: #### L 500.3600, L100.0600 ####[facility] [address] [place], [address] Potassium [Moles/Vol] 5.3 mmol/L High 3.3-5.1 [facility] Comment on above: Performed By: #### L 500.3600, L100.0600 ####[facility] [address] [place], [address] Sodium [Moles/Vol] 134 mmol/L Normal 133-145 [facility] Comment on above: Performed By: #### L 500.3600, L100.0600 ####[facility] [address] [place], [address] Urea nitrogen [Mass/Vol] 51 mg/dL High 4-19 [facility] Comment on above: Performed By: #### L 500.3600, L100.0600 ####[facility] [address] [place], [address] Bedside Glucoseon 01-26-2025 FINGERSTICK GLU 161 mg/dL High 74-106 [facility] Comment on above: Result Comment: ROSA GEMENT OF PATIENT CARE PER NURSING PROTOCOL Performed By: #### L 501.080 ####[facility] [address] [place], [address] FINGERSTICK GLU 135 mg/dL High 74-106 [facility] Comment on above: Result Comment: ROSA GEMENT OF PATIENT CARE PER NURSING PROTOCOL Performed By: #### L 501.080 ####[facility] [address] [place], [address] FINGERSTICK GLU 134 mg/dL High 74-106 [facility] Comment on above: Result Comment: ROSA GEMENT OF PATIENT CARE PER NURSING PROTOCOL Performed By: #### L 501.080 ####[facility] [address] [place], [address] FINGERSTICK GLU 117 mg/dL High 74-106 [facility] Comment on above: Result Comment: ROSA GEMENT OF PATIENT CARE PER NURSING PROTOCOL Performed By: #### L 501.080 ####[facility] [address] [place], [address] Bedside Glucoseon 01-25-2025 FINGERSTICK GLU 166 mg/dL High 74-106 [facility] Comment on above: Result Comment: ROSA GEMENT OF PATIENT CARE PER NURSING PROTOCOL Performed By: #### L 501.080 ####[facility] [address] [place], [address] FINGERSTICK GLU 142 mg/dL High 74-106 [facility] Comment on above: Result Comment: ROSA GEMENT OF PATIENT CARE PER NURSING PROTOCOL Performed By: #### L 501.080 ####[facility] [address] [place], [address] FINGERSTICK GLU 129 mg/dL High 74-106 [facility] Comment on above: Result Comment: ROSA GEMENT OF PATIENT CARE PER NURSING PROTOCOL Performed By: #### L 501.080 ####[facility] [address] [place], [address] FINGERSTICK GLU 73 mg/dL Low 74-106 [facility] Comment on above: Result Comment: ROSA GEMENT OF PATIENT CARE PER NURSING PROTOCOL Performed By: #### L 501.080 ####[facility] [address] [place], [address] CNPNon 01-25-2025 CNPN Normal [facility] Basic Metabolic Profile (BMP )on 01-24-2025 BUN/CRE 21.8 RATIO High 10-20 [facility] Comment on above: Performed By: #### L 501.2300, L500.2500, L100.0600 ####[facility] [address] [place], [address] Calcium [Mass/Vol] 8.9 mg/dL Normal 7.6-11.0 [facility] Comment on above: Performed By: #### L 501.2300, L500.2500, L100.0600 ####[facility] [address] [place], [address] Chloride [Moles/Vol] 105 mmol/L Normal 98-108 [facility] Comment on above: Performed By: #### L 501.2300, L500.2500, L100.0600 ####[facility] [address] [place], [address] CO2 [Moles/Vol] 18.9 mmol/L Low 21.0-32.0 [facility] Comment on above: Performed By: #### L 501.2300, L500.2500, L100.0600 ####[facility] [address] [place], [address] Creatinine [Mass/Vol] 2.16 mg/dL High 0.70-1.20 [facility] Comment on above: Performed By: #### L 501.2300, L500.2500, L100.0600 ####[facility] [address] [place], [address] ECRCL 24.52 ml/min Low 50-250 [facility] Comment on above: Performed By: #### L 501.2300, L500.2500, L100.0600 ####[facility] [address] [place], [address] GAP 12 Normal 5-15 [facility] Comment on above: Performed By: #### L 501.2300, L500.2500, L100.0600 ####[facility] [address] [place], [address] GFR/1.73 sq M.predicted among non-blacks MDRD (S/P/Bld) [Vol rate/Area] 31 mL/min/{1.73_m2} Low >60 [facility] Comment on above: Result Comment: mL/m in/1.73m2 CKD-EPI Creatinine Equation (2020) Performed By: #### L 501.2300, L500.2500, L100.0600 ####[facility] [address] [place], [address] Glucose [Mass/Vol] 104 mg/dL High 70-99 [facility] Comment on above: Performed By: #### L 501.2300, L500.2500, L100.0600 ####[facility] [address] [place], [address] Potassium [Moles/Vol] 5.1 mmol/L Normal 3.3-5.1 [facility] Comment on above: Performed By: #### L 501.2300, L500.2500, L100.0600 ####[facility] [address] [place], [address] Sodium [Moles/Vol] 135 mmol/L Normal 133-145 [facility] Comment on above: Performed By: #### L 501.2300, L500.2500, L100.0600 ####[facility] [address] [place], [address] Urea nitrogen [Mass/Vol] 47 mg/dL High 4-19 [facility] Comment on above: Performed By: #### L 501.2300, L500.2500, L100.0600 ####[facility] [address] [place], [address] Bedside Glucoseon 01-24-2025 FINGERSTICK GLU 77 mg/dL Normal 74-106 [facility] Comment on above: Result Comment: ROSA GEMENT OF PATIENT CARE PER NURSING PROTOCOL Performed By: #### L 501.080 ####[facility] [address] [place], [address] FINGERSTICK GLU 227 mg/dL High 74-106 [facility] Comment on above: Result Comment: ROSA GEMENT OF PATIENT CARE PER NURSING PROTOCOL Performed By: #### L 501.080 ####[facility] [address] [place], [address] FINGERSTICK GLU 187 mg/dL High 74-106 [facility] Comment on above: Result Comment: ROSA GEMENT OF PATIENT CARE PER NURSING PROTOCOL Performed By: #### L 501.080 ####[facility] [address] [place], [address] FINGERSTICK GLU 97 mg/dL Normal 74-106 [facility] Comment on above: Result Comment: ROSA GEMENT OF PATIENT CARE PER NURSING PROTOCOL Performed By: #### L 501.080 ####[facility] [address] [place], [address] COVID 19 AG RAPID (MELISA Mott)on 01-24-2025 SARS-CoV-2 (COVID-19) RNA ALLEN+probe Ql (Unsp spec) Normal [facility] Comment on above: Performed By: #### M 100.505 ####[facility] [address] [place], [address] COVID-19 virus antigen assay Ordered By: Marie Patino on 01-24-2025 SARS-CoV-2 (COVID-19) Ag IA.rapid Ql (Resp) [facility] Chest PA and Lateralon 01-24 Chest PA and Lateral Normal [facility] HH, Hemoglobin AND Hematocri ton 01-24-2025 Hematocrit (Bld) [Volume fraction] 24.1 % Low 40-54 [facility] Comment on above: Performed By: #### L 501.2300, L500.2500, L100.0600 ####[facility] [address] [place], [address] Hemoglobin (Bld) [Mass/Vol] 7.7 g/dL Low 13.0-16.5 [facility] Comment on above: Performed By: #### L 501.2300, L500.2500, L100.0600 ####[facility] [address] [place], [address] L503.7505on 01-24-2025 Natriuretic peptide B (Bld) [Mass/Vol] 66391 pg/mL High <=1800 [facility] Comment on above: Result Comment: Hear t Failure Unlikely: < 300 pg/mLHeart Failure Likely< 50 Years: > 450 pg/mL50-75 Years: > 900 pg/mL>75 Years: > 1800 pg/mL Performed By: #### L 503.7505 ####[facility] [address] [place], [address] Natriuretic peptide.B prohor nadine N-Terminal [Mass/volume] in Serum or PlasmaOrdered By: Marie Patino on 01-24-2025 Natriuretic peptide.B prohormone N-Terminal [Mass/Vol] 07612 pg/mL High <1800 [facility] Phosphoruson 01-24-2025 Phosphate [Mass/Vol] 4.6 mg/dL High 2.7-4.5 [facility] Comment on above: Performed By: #### L 501.2300, L500.2500, L100.0600 ####[facility] [address] [place], [address] RESPIRATORY PANEL MOLECULARo n 01-24-2025 RP PANEL Normal [facility] Comment on above: Performed By: #### M 100.638 ####[facility] [address] [place], [address] Respiratory pathogens detect ion panel by molecular detection methodOrdered By: Marie Patino on 01-24-2025 Respiratory pathogens DNA and RNA panel ALLEN+probe (Resp) [facility] Bedside Glucoseon 01-23-2025 FINGERSTICK GLU 96 mg/dL Normal 74-106 [facility] Comment on above: Result Comment: ROSA GEMENT OF PATIENT CARE PER NURSING PROTOCOL Performed By: #### L 501.080 ####[facility] [address] [place], [address] FINGERSTICK GLU 168 mg/dL High 74-106 [facility] Comment on above: Result Comment: ROSA GEMENT OF PATIENT CARE PER NURSING PROTOCOL Performed By: #### L 501.080 ####[facility] [address] [place], [address] FINGERSTICK GLU 136 mg/dL High -106 [facility] Comment on above: Result Comment: ROSA GEMENT OF PATIENT CARE PER NURSING PROTOCOL Performed By: #### L 501.080 ####[facility] [address] [place], [address] FINGERSTICK GLU 118 mg/dL High 74-106 [facility] Comment on above: Result Comment: ROSA GEMENT OF PATIENT CARE PER NURSING PROTOCOL Performed By: #### L 501.080 ####[facility] [address] [place], [address] Calprotectin, Stoolon [address] 34 ug/g Normal 0-120 [facility] Comment on above: Result Comment: Conc entration Interpretation Follow-Up< 5 - 50 ug/g Normal None>50 -120 ug/g Borderline Re-evaluate in 4-6 weeks >120 ug/g Abnormal Repeat as clinically indicatedPerformed at: - [facility] [address] [id number] Director: Aniket Hdz MD, Phone: [phone] Performed By: #### L 7954.8800 ####[facility] [address] [place], [address] Bedside Glucoseon 01-22-2025 FINGERSTICK GLU 193 mg/dL High 74-106 [facility] Comment on above: Result Comment: ROSA GEMENT OF PATIENT CARE PER NURSING PROTOCOL Performed By: #### L 501.080 ####[facility] [address] [place], [address] FINGERSTICK GLU 163 mg/dL High 74-106 [facility] Comment on above: Result Comment: ROSA GEMENT OF PATIENT CARE PER NURSING PROTOCOL Performed By: #### L 501.080 ####[facility] [address] [place], [address] FINGERSTICK GLU 119 mg/dL High 74-106 [facility] Comment on above: Result Comment: ROSA GEMENT OF PATIENT CARE PER NURSING PROTOCOL Performed By: #### L 501.080 ####[facility] [address] [place], [address] FINGERSTICK GLU 129 mg/dL High 74-106 [facility] Comment on above: Result Comment: ROSA GEMENT OF PATIENT CARE PER NURSING PROTOCOL Performed By: #### L 501.080 ####[facility] [address] [employer] [facility] [address] Absolute lymphocyte countOrd ered By: Marie Rochehiro on 01-21-2025 Lymphocytes Auto (Unsp spec) [#/Vol] 1.75 10*3/uL 0.83-4.51 [facility] Automated lymphocyte count a s percentage of total leukocytesOrdered By: Marie Carey on 01-21-2025 Lymphocytes/100 WBC Auto (Unsp spec) 22.5 % 19-41 [facility] Basic Metabolic Profile (BMP )on 01-21-2025 BUN/CRE 21.6 RATIO High 10-20 [facility] Comment on above: Performed By: #### L 100.0100, L501.5200, L500.2500 ####[facility] [id number] [place], [address] Calcium [Mass/Vol] 8.6 mg/dL Normal 7.6-11.0 [facility] Comment on above: Performed By: #### L 100.0100, L501.5200, L500.2500 ####[facility] [address] [place], [address] Chloride [Moles/Vol] 105 mmol/L Normal 98-108 [facility] Comment on above: Performed By: #### L 100.0100, L501.5200, L500.2500 ####[facility] [address] [place], [address] CO2 [Moles/Vol] 18.1 mmol/L Low 21.0-32.0 [facility] Comment on above: Performed By: #### L 100.0100, L501.5200, L500.2500 ####[facility] [address] [place], [address] Creatinine [Mass/Vol] 1.88 mg/dL High 0.70-1.20 [facility] Comment on above: Performed By: #### L 100.0100, L501.5200, L500.2500 ####[facility] [address] [place], [address] ECRCL 28.17 ml/min Low 50-250 [facility] Comment on above: Performed By: #### L 100.0100, L501.5200, L500.2500 ####[facility] [address] [place], [address] GAP 11 Normal 5-15 [facility] Comment on above: Performed By: #### L 100.0100, L501.5200, L500.2500 ####[facility] [address] [place], [address] GFR/1.73 sq M.predicted among non-blacks MDRD (S/P/Bld) [Vol rate/Area] 36 mL/min/{1.73_m2} Low >60 [facility] Comment on above: Result Comment: mL/m in/1.73m2 CKD-EPI Creatinine Equation (2020) Performed By: #### L 100.0100, L501.5200, L500.2500 ####[facility] [address] [place], [address] Glucose [Mass/Vol] 112 mg/dL High 70-99 [facility] Comment on above: Performed By: #### L 100.0100, L501.5200, L500.2500 ####[facility] [address] [place], [address] Potassium [Moles/Vol] 4.8 mmol/L Normal 3.3-5.1 [facility] Comment on above: Performed By: #### L 100.0100, L501.5200, L500.2500 ####[facility] [address] [place], [address] Sodium [Moles/Vol] 133 mmol/L Normal 133-145 [facility] Comment on above: Performed By: #### L 100.0100, L501.5200, L500.2500 ####[facility] [address] [place], [address] Urea nitrogen [Mass/Vol] 41 mg/dL High 4-19 [facility] Comment on above: Performed By: #### L 100.0100, L501.5200, L500.2500 ####[facility] [address] [place], [address] Basophil percentageOrdered B y: Marie Patino on 01-21-2025 Basophils/100 WBC (Bld) 0.6 % 0-1 [facility] Bedside Glucoseon 01-21-2025 FINGERSTICK GLU 127 mg/dL High 74-106 [facility] Comment on above: Result Comment: ROSA LAWRENCE OF PATIENT CARE PER NURSING PROTOCOL Performed By: #### L 501.080 ####[facility] [address] [place], [address] FINGERSTICK GLU 301 mg/dL High 74-106 [facility] Comment on above: Result Comment: ROSA GEMENT OF PATIENT CARE PER NURSING PROTOCOL Performed By: #### L 501.080 ####[facility] [address] [place], [address] FINGERSTICK GLU 206 mg/dL High 74-106 [facility] Comment on above: Result Comment: ROSA GEMENT OF PATIENT CARE PER NURSING PROTOCOL Performed By: #### L 501.080 ####[facility] [address] [place], [address] FINGERSTICK GLU 91 mg/dL Normal 74-106 [facility] Comment on above: Result Comment: ROSA GEMENT OF PATIENT CARE PER NURSING PROTOCOL Performed By: #### L 501.080 ####[facility] [address] [place], [address] CBC W/Diff, Automatedon 12-25 Absolute Lymph 1.75 X10 3/uL Normal 0.83-4.51 [facility] Comment on above: Performed By: #### L 100.0100, L501.5200, L500.2500 ####[facility] [address] [place], [address] Absolute Neut 4.0 X10 3/uL Normal 2.0-7.7 [facility] Comment on above: Performed By: #### L 100.0100, L501.5200, L500.2500 ####[facility] [address] [place], [address] Basophils/100 WBC (Bld) 0.6 % Normal 0-1 [facility] Comment on above: Performed By: #### L 100.0100, L501.5200, L500.2500 ####[facility] [address] [place], [address] Eosinophils/100 WBC (Bld) 16.1 % High 0-5 [facility] Comment on above: Performed By: #### L 100.0100, L501.5200, L500.2500 ####[facility] [address] [place], [address] Erythrocyte distribution width (RBC) [Ratio] 17.9 % High 11.6-14.6 [facility] Comment on above: Performed By: #### L 100.0100, L501.5200, L500.2500 ####[facility] [address] [place], [address] Hematocrit (Bld) [Volume fraction] 24.9 % Low 40-54 [facility] Comment on above: Performed By: #### L 100.0100, L501.5200, L500.2500 ####[facility] [address] [place], [address] Hemoglobin (Bld) [Mass/Vol] 8.2 g/dL Low 13.0-16.5 [facility] Comment on above: Performed By: #### L 100.0100, L501.5200, L500.2500 ####[facility] [address] [place], [address] IG% 0.400 Normal 0.0-0.9 [facility] Comment on above: Result Comment: IG% - Immature Granulocytes (promyelocytes, myelocytes andmetamyelocytes) > 1% indicates that a LEFT SHIFT is Present. Performed By: #### L 100.0100, L501.5200, L500.2500 ####[facility] [address] [place], [address] Lymphocytes/100 WBC (Bld) 22.5 % Normal 19-41 [facility] Comment on above: Performed By: #### L 100.0100, L501.5200, L500.2500 ####[facility] [address] [place], [address] MCH (RBC) [Entitic mass] 30.0 pg Normal 27.0-32.0 [facility] Comment on above: Performed By: #### L 100.0100, L501.5200, L500.2500 ####[facility] [address] [place], [address] MCHC (RBC) [Mass/Vol] 32.9 g/dL Normal 32-36 [facility] Comment on above: Performed By: #### L 100.0100, L501.5200, L500.2500 ####[facility] [address] [place], [address] MCV (RBC) [Entitic vol] 91.2 fL Normal 80-94 [facility] Comment on above: Performed By: #### L 100.0100, L501.5200, L500.2500 ####[facility] [address] [place], [address] Monocytes/100 WBC (Bld) 8.7 % Normal 0-10 [facility] Comment on above: Performed By: #### L 100.0100, L501.5200, L500.2500 ####[facility] [address] [place], [address] Neutrophils/100 WBC (Bld) 51.7 % Normal 47-70 [facility] Comment on above: Performed By: #### L 100.0100, L501.5200, L500.2500 ####[facility] [address] [place], [address] Nucleated RBC (Bld) [#/Vol] 0 10*3/uL Normal 0-5 [facility] Comment on above: Performed By: #### L 100.0100, L501.5200, L500.2500 ####[facility] [address] [place], [address] Platelet mean volume (Bld) [Entitic vol] 10.2 fL Normal 6.2-12.0 [facility] Comment on above: Performed By: #### L 100.0100, L501.5200, L500.2500 ####[facility] [address] [place], [address] Platelets (Bld) [#/Vol] 330 10*3/uL Normal 150-450 [facility] Comment on above: Performed By: #### L 100.0100, L501.5200, L500.2500 ####[facility] [address] [place], [address] RBC (Bld) [#/Vol] 2.73 10*6/uL Low 4.6-6.2 [facility] Comment on above: Performed By: #### L 100.0100, L501.5200, L500.2500 ####[facility] [address] [place], [address] RDW SD 59.8 fl High 35.1-43.9 [facility] Comment on above: Performed By: #### L 100.0100, L501.5200, L500.2500 ####[facility] [address] [place], [address] WBC (Bld) [#/Vol] 7.8 10*3/uL Normal 4.4-11.0 [facility] Comment on above: Performed By: #### L 100.0100, L501.5200, L500.2500 ####[facility] [address] [place], [address] Eosinophil percentageOrdered By: Marie Patino on 01-21-2025 Eosinophils/100 WBC (Bld) 16.1 % High 0-5 [facility] Immature granulocytes/100 WB C Auto (Bld)Ordered By: Marie Patino on 01-21-2025 Immature granulocytes/100 WBC (Bld) 0.400 % 0.0-0.9 [facility] Magnesiumon 01-21-2025 Magnesium [Mass/Vol] 1.6 mg/dL Normal 1.5-2.2 [facility] Comment on above: Performed By: #### L 100.0100, L501.5200, L500.2500 ####[facility] [address] [place], [address] Monocyte percentageOrdered B y: Marie Patino on 01-21-2025 Monocytes/100 WBC (Bld) 8.7 % 0-10 [facility] Neutrophil percentageOrdered By: Marie Patino on 01-21-2025 Neutrophils/100 WBC (Bld) 51.7 % 47-70 [facility] Bedside Glucoseon 01-20-2025 FINGERSTICK GLU 82 mg/dL Normal 74-106 [facility] Comment on above: Result Comment: ROSA GEMENT OF PATIENT CARE PER NURSING PROTOCOL Performed By: #### L 501.080 ####[facility] [address] [employer] [facility] [address] FINGERSTICK GLU 118 mg/dL High 74-106 [facility] Comment on above: Result Comment: ROSA GEMENT OF PATIENT CARE PER NURSING PROTOCOL Performed By: #### L 501.080 ####[facility] [address] [place], [address] FINGERSTICK GLU 92 mg/dL Normal 74-106 [facility] Comment on above: Result Comment: ROSA GEMENT OF PATIENT CARE PER NURSING PROTOCOL Performed By: #### L 501.080 ####[facility] [address] [employer] [facility] [address] FINGERSTICK GLU 262 mg/dL High 74-106 [facility] Comment on above: Result Comment: ROSA GEMENT OF PATIENT CARE PER NURSING PROTOCOL Performed By: #### L 501.080 ####[facility] [address] [employer] [facility] [address] FINGERSTICK GLU 106 mg/dL Normal 74-106 [facility] Comment on above: Result Comment: ROSA GEMENT OF PATIENT CARE PER NURSING PROTOCOL Performed By: #### L 501.080 ####[facility] [address] [place], [address] CDIFF (PCR)on 01-20-2025 CDIFF Normal [facility] Comment on above: Performed By: #### M 100.6796 ####[facility] [address] [place], [address] ENTERIC PATHOGEN PANEL STOOL on 01-20-2025 EP PANEL CAMPYLOBACTER Not Detected Norovirus Not Detected Rotavirus Not Detected Salmonella Not Detected Shiga Toxin Not Detected Shigella sp. Not Detected VIBRIO Not Detected Yersinia Not Detected Normal [facility] Comment on above: Performed By: #### M 100.637 ####[facility] [address] [place], [address] Bedside Glucoseon 01-19-2025 FINGERSTICK GLU 139 mg/dL High 74-106 [facility] Comment on above: Result Comment: ROSA GEMENT OF PATIENT CARE PER NURSING PROTOCOL Performed By: #### L 501.080 ####[facility] [address] [place], [address] FINGERSTICK GLU 105 mg/dL Normal 74-106 [facility] Comment on above: Result Comment: ROSA GEMENT OF PATIENT CARE PER NURSING PROTOCOL Performed By: #### L 501.080 ####[facility] [address] [place], [address] FINGERSTICK GLU 93 mg/dL Normal 74-106 [facility] Comment on above: Result Comment: ROSA GEMENT OF PATIENT CARE PER NURSING PROTOCOL Performed By: #### L 501.080 ####[facility] [address] [place], [address] FINGERSTICK GLU 151 mg/dL High 74-106 [facility] Comment on above: Result Comment: ROSA GEMENT OF PATIENT CARE PER NURSING PROTOCOL Performed By: #### L 501.080 ####[facility] [address] [place], [address] Calprotectin stoolOrdered By : Marie Patino on 01-19-2025 Calprotectin stool 34 ug/g 0-120 [facility] Clostridium difficile detect ion by polymerase chain reactionOrdered By: Marie Patino on 01-19-2025 C. difficile DNA ALLEN+probe Ql (Unsp spec) [facility] HH, Hemoglobin AND Hematocri ton 01-19-2025 Hematocrit (Bld) [Volume fraction] 24.3 % Low 40-54 [facility] Comment on above: Performed By: #### L 500.3600, L100.0600 ####[facility] [address] [place], [address] Hemoglobin (Bld) [Mass/Vol] 8.1 g/dL Low 13.0-16.5 [facility] Comment on above: Performed By: #### L 500.3600, L100.0600 ####[facility] [address] [place], [address] Renal Profileon 01-19-2025 Albumin [Mass/Vol] 2.8 g/dL Low 3.4-4.8 [facility] Comment on above: Performed By: #### L 500.3600, L100.0600 ####[facility] [address] [place], [address] BUN/CRE 27.6 RATIO High 10-20 [facility] Comment on above: Performed By: #### L 500.3600, L100.0600 ####[facility] [address] [place], [address] Calcium [Mass/Vol] 8.9 mg/dL Normal 7.6-11.0 [facility] Comment on above: Performed By: #### L 500.3600, L100.0600 ####[facility] [address] [place], [address] Chloride [Moles/Vol] 107 mmol/L Normal 98-108 [facility] Comment on above: Performed By: #### L 500.3600, L100.0600 ####[facility] [address] [place], [address] CO2 [Moles/Vol] 17.9 mmol/L Low 21.0-32.0 [facility] Comment on above: Performed By: #### L 500.3600, L100.0600 ####[facility] [address] [place], [address] Creatinine [Mass/Vol] 1.72 mg/dL High 0.70-1.20 [facility] Comment on above: Performed By: #### L 500.3600, L100.0600 ####[facility] [address] [place], [address] ECRCL 30.79 ml/min Low 50-250 [facility] Comment on above: Performed By: #### L 500.3600, L100.0600 ####[facility] [address] [place], [address] GAP 10 Normal 5-15 [facility] Comment on above: Performed By: #### L 500.3600, L100.0600 ####[facility] [address] [place], [address] GFR/1.73 sq M.predicted among non-blacks MDRD (S/P/Bld) [Vol rate/Area] 40 mL/min/{1.73_m2} Low >60 [facility] Comment on above: Result Comment: mL/m in/1.73m2 CKD-EPI Creatinine Equation (2020) Performed By: #### L 500.3600, L100.0600 ####[facility] [address] [place], [address] Glucose [Mass/Vol] 144 mg/dL High 70-99 [facility] Comment on above: Performed By: #### L 500.3600, L100.0600 ####[facility] [address] [place], [address] Phosphate [Mass/Vol] 4.2 mg/dL Normal 2.7-4.5 [facility] Comment on above: Performed By: #### L 500.3600, L100.0600 ####[facility] [address] [place], [address] Potassium [Moles/Vol] 4.8 mmol/L Normal 3.3-5.1 [facility] Comment on above: Performed By: #### L 500.3600, L100.0600 ####[facility] [address] [place], [address] Sodium [Moles/Vol] 135 mmol/L Normal 133-145 [facility] Comment on above: Performed By: #### L 500.3600, L100.0600 ####[facility] [address] [place], [address] Urea nitrogen [Mass/Vol] 48 mg/dL High 4-19 [facility] Comment on above: Performed By: #### L 500.3600, L100.0600 ####[facility] [address] [place], [address] Stool Lactoferrin/WBCon 12-25 WBCST Normal Reference Range = Negative Fecal WBC Lactoferrin Negative: No Fecal WBC Lactoferrin present Normal [facility] Comment on above: Performed By: #### M 100.0605 ####[facility] [address] [place], [address] Stool Occult Blood iFOBon STOB Positive Normal [facility] Comment on above: Performed By: #### M 100.7900 ####[facility] [address] [place], [address] Stool gastrointestinal hemog lobin detection by immunologic methodOrdered By: Marie Rochehiro on 01-19-2025 Lower GI hemoglobin IA Ql (Stl) Positive Abnormal [facility] Stool lactoferrin detection by immunoassayOrdered By: Marie Rochehiro on 01-19-2025 Lactoferrin IA Ql (Stl) [facility] Bedside Glucoseon 01-18-2025 FINGERSTICK GLU 170 mg/dL High [address] [facility] Comment on above: Result Comment: ROSA GEMENT OF PATIENT CARE PER NURSING PROTOCOL Performed By: #### L 501.080 ####[facility] [address] [place] [employer] [facility] [address] FINGERSTICK GLU 172 mg/dL High [address] [place] [address] Comment on above: Result Comment: ROSA GEMENT OF PATIENT CARE PER NURSING PROTOCOL Performed By: #### L 501.080 ####[facility] [address] [employer] [facility] [address] FINGERSTICK GLU 167 mg/dL High [address] [place] [address] Comment on above: Result Comment: ROSA GEMENT OF PATIENT CARE PER NURSING PROTOCOL Performed By: #### L 501.080 ####[facility] [address] [place], [address] FINGERSTICK GLU 161 mg/dL High [address] [place] [address] Comment on above: Result Comment: ROSA GEMENT OF PATIENT CARE PER NURSING PROTOCOL Performed By: #### L 501.080 ####[facility] [address] [place] [employer] [facility] [address] Bedside Glucoseon 01-17-2025 FINGERSTICK GLU 300 mg/dL High [address] [place] [address] Comment on above: Result Comment: ROSA GEMENT OF PATIENT CARE PER NURSING PROTOCOL Performed By: #### L 501.080 ####[facility] [address] [place], [address] FINGERSTICK GLU 194 mg/dL High [address] [place] [address] Comment on above: Result Comment: ROSA GEMENT OF PATIENT CARE PER NURSING PROTOCOL Performed By: #### L 501.080 ####[facility] [address] [place], [address] FINGERSTICK GLU 164 mg/dL High 74-106 [facility] Comment on above: Result Comment: ROSA GEMENT OF PATIENT CARE PER NURSING PROTOCOL Performed By: #### L 501.080 ####[facility] [address] [place], [address] FINGERSTICK GLU 171 mg/dL High 74-106 [facility] Comment on above: Result Comment: ROSA GEMENT OF PATIENT CARE PER NURSING PROTOCOL Performed By: #### L 501.080 ####[facility] [address] [place], [address] Discharge Instructionon 12-25 Discharge Instruction Normal [facility] Renal Profileon 01-17-2025 Albumin [Mass/Vol] 2.7 g/dL Low 3.4-4.8 [facility] Comment on above: Performed By: #### L 500.3600 ####[facility] [address] [place], [address] BUN/CRE 27.9 RATIO High 10-20 [facility] Comment on above: Performed By: #### L 500.3600 ####[facility] [address] [place], [address] Calcium [Mass/Vol] 8.8 mg/dL Normal 7.6-11.0 [facility] Comment on above: Performed By: #### L 500.3600 ####[facility] [address] [place], [address] Chloride [Moles/Vol] 106 mmol/L Normal 98-108 [facility] Comment on above: Performed By: #### L 500.3600 ####[facility] [address] [place], [address] CO2 [Moles/Vol] 16.5 mmol/L Low 21.0-32.0 [facility] Comment on above: Performed By: #### L 500.3600 ####[facility] [address] [place], [address] Creatinine [Mass/Vol] 1.91 mg/dL High 0.70-1.20 [facility] Comment on above: Performed By: #### L 500.3600 ####[facility] [address] [place], [address] ECRCL 27.73 ml/min Low 50-250 [facility] Comment on above: Performed By: #### L 500.3600 ####[facility] [address] [place], [address] GAP 11 Normal 5-15 [facility] Comment on above: Performed By: #### L 500.3600 ####[facility] [address] [place], [address] GFR/1.73 sq M.predicted among non-blacks MDRD (S/P/Bld) [Vol rate/Area] 35 mL/min/{1.73_m2} Low >60 [facility] Comment on above: Result Comment: mL/m in/1.73m2 CKD-EPI Creatinine Equation (2020) Performed By: #### L 500.3600 ####[facility] [address] [place], [address] Glucose [Mass/Vol] 186 mg/dL High 70-99 [facility] Comment on above: Performed By: #### L 500.3600 ####[facility] [address] [place], [address] Phosphate [Mass/Vol] 5.0 mg/dL High 2.7-4.5 [facility] Comment on above: Performed By: #### L 500.3600 ####[facility] [address] [place], [address] Potassium [Moles/Vol] 5.0 mmol/L Normal 3.3-5.1 [facility] Comment on above: Performed By: #### L 500.3600 ####[facility] [address] [place], [address] Sodium [Moles/Vol] 134 mmol/L Normal 133-145 [facility] Comment on above: Performed By: #### L 500.3600 ####[facility] [address] [place], [address] Urea nitrogen [Mass/Vol] 53 mg/dL High 4-19 [facility] Comment on above: Performed By: #### L 500.3600 ####[facility] [address] [place], [address] Ankle min 3 Viewson 01-17-20 25 Ankle min 3 Views Normal [facility] Basic Metabolic Profile (BMP )on 01-16-2025 BUN/CRE 25.0 RATIO High 10-20 [facility] Comment on above: Performed By: #### L 501.6710, L100.0600, L101.9900, L500.2500 ####[facility] [address] [place], [address] Calcium [Mass/Vol] 9.2 mg/dL Normal 7.6-11.0 [facility] Comment on above: Performed By: #### L 501.6710, L100.0600, L101.9900, L500.2500 ####[facility] [address] [place], [address] Chloride [Moles/Vol] 102 mmol/L Normal 98-108 [facility] Comment on above: Performed By: #### L 501.6710, L100.0600, L101.9900, L500.2500 ####[facility] [address] [place], [address] CO2 [Moles/Vol] 16.9 mmol/L Low 21.0-32.0 [facility] Comment on above: Performed By: #### L 501.6710, L100.0600, L101.9900, L500.2500 ####[facility] [address] [place], [address] Creatinine [Mass/Vol] 1.93 mg/dL High 0.70-1.20 [facility] Comment on above: Performed By: #### L 501.6710, L100.0600, L101.9900, L500.2500 ####[facility] [address] [place], [address] ECRCL 27.44 ml/min Low 50-250 [facility] Comment on above: Performed By: #### L 501.6710, L100.0600, L101.9900, L500.2500 ####[facility] [address] [place], [address] GAP 12 Normal 5-15 [facility] Comment on above: Performed By: #### L 501.6710, L100.0600, L101.9900, L500.2500 ####[facility] [address] [place], [address] GFR/1.73 sq M.predicted among non-blacks MDRD (S/P/Bld) [Vol rate/Area] 35 mL/min/{1.73_m2} Low >60 [facility] Comment on above: Result Comment: mL/m in/1.73m2 CKD-EPI Creatinine Equation (2020) Performed By: #### L 501.6710, L100.0600, L101.9900, L500.2500 ####[facility] [address] [place], [address] Glucose [Mass/Vol] 136 mg/dL High 70-99 [facility] Comment on above: Performed By: #### L 501.6710, L100.0600, L101.9900, L500.2500 ####[facility] [address] [place], [address] Potassium [Moles/Vol] 5.1 mmol/L Normal 3.3-5.1 [facility] Comment on above: Result Comment: Hemo lysis present, Results??could be affected.?? Performed By: #### L 501.6710, L100.0600, L101.9900, L500.2500 ####[facility] [address] [place], [address] Sodium [Moles/Vol] 130 mmol/L Low 133-145 [facility] Comment on above: Performed By: #### L 501.6710, L100.0600, L101.9900, L500.2500 ####[facility] [address] [place], [address] Urea nitrogen [Mass/Vol] 48 mg/dL High 4-19 [facility] Comment on above: Performed By: #### L 501.6710, L100.0600, L101.9900, L500.2500 ####[facility] [address] [place], [address] Bedside Glucoseon 01-16-2025 FINGERSTICK GLU 238 mg/dL High 74-106 [facility] Comment on above: Result Comment: ROSA GEMENT OF PATIENT CARE PER NURSING PROTOCOL Performed By: #### L 501.080 ####[facility] [address] [place], [address] FINGERSTICK GLU 173 mg/dL High 74-106 [facility] Comment on above: Result Comment: ROSA GEMENT OF PATIENT CARE PER NURSING PROTOCOL Performed By: #### L 501.080 ####[facility] [address] [place], [address] FINGERSTICK GLU 184 mg/dL High 74-106 [facility] Comment on above: Result Comment: ROSA GEMENT OF PATIENT CARE PER NURSING PROTOCOL Performed By: #### L 501.080 ####[facility] [id number] [place], [address] FINGERSTICK GLU 174 mg/dL High 74-106 [facility] Comment on above: Result Comment: ROSA GEMENT OF PATIENT CARE PER NURSING PROTOCOL Performed By: #### L 501.080 ####[facility] [id number] [place], [address] CRPon 01-16-2025 C-REACTIVE PROT 10.70 mg/L High 0.0-3.0 [facility] Comment on above: Performed By: #### L 501.6710, L100.0600, L101.9900, L500.2500 ####[facility] [address] [place], [address] Electrocardiogram reportOrde red By: Stevenson Hernández on 01-16-2025 EKG study [facility] Work Phone: Erythrocyte Sed Rateon 01-16 SED RATE 19 mm/hr Normal 0-20 [facility] Comment on above: Performed By: #### L 501.6710, L100.0600, L101.9900, L500.2500 ####[facility] [address] [place], [address] Erythrocyte sedimentation ra teOrdered By: Marie Patino on 01-16-2025 ESR (Bld) [Velocity] 19 mm/h 0-20 [facility] HH, Hemoglobin AND Hematocri ton 01-16-2025 Hematocrit (Bld) [Volume fraction] 30.0 % Low 40-54 [facility] Comment on above: Performed By: #### L 501.6710, L100.0600, L101.9900, L500.2500 ####[facility] [address] [place], [address] Hemoglobin (Bld) [Mass/Vol] 9.8 g/dL Low 13.0-16.5 [facility] Comment on above: Performed By: #### L 501.6710, L100.0600, L101.9900, L500.2500 ####[facility] [address] [place], [address] Lumbar Spine 2 or 3 Viewson 01-16-2025 Lumbar Spine 2 or 3 Views Normal [facility] MR/CON.PCM.GIon 01-16-2025 MR/CON.PCM.GI Normal [facility] Serum or plasma C reactive p rotein measurement (mass/volume)Ordered By: Marie Carey on 01-16-2025 CRP [Mass/Vol] 10.70 mg/L High 0.0-3.0 [facility] Bedside Glucoseon 01-15-2025 FINGERSTICK GLU 244 mg/dL High 74-106 [facility] Comment on above: Result Comment: ROSA GEMENT OF PATIENT CARE PER NURSING PROTOCOL Performed By: #### L 501.080 ####[facility] [address] [place], [address] FINGERSTICK GLU 191 mg/dL High [facility]106 [facility] Comment on above: Result Comment: ROSA GEMENT OF PATIENT CARE PER NURSING PROTOCOL Performed By: #### L 501.080 ####[facility] [address] [place], [address] FINGERSTICK GLU 191 mg/dL High [facility]106 [facility] Comment on above: Result Comment: ROSA GEMENT OF PATIENT CARE PER NURSING PROTOCOL Performed By: #### L 501.080 ####[facility] [address] [place], [address] FINGERSTICK GLU 180 mg/dL High [facility]106 [facility] Comment on above: Result Comment: ROSA GEMENT OF PATIENT CARE PER NURSING PROTOCOL Performed By: #### L 501.080 ####[facility] [address] [place], [address] Bedside Glucoseon 01-14-2025 FINGERSTICK GLU 260 mg/dL High 74-106 [facility] Comment on above: Result Comment: ROSA GEMENT OF PATIENT CARE PER NURSING PROTOCOL Performed By: #### L 501.080 ####[facility] [address] [place], [address] FINGERSTICK GLU 229 mg/dL High 74-106 [facility] Comment on above: Result Comment: ROSA GEMENT OF PATIENT CARE PER NURSING PROTOCOL Performed By: #### L 501.080 ####[facility] [address] [place], [address] FINGERSTICK GLU 252 mg/dL High [facility]106 [facility] Comment on above: Result Comment: ROSA GEMENT OF PATIENT CARE PER NURSING PROTOCOL Performed By: #### L 501.080 ####[facility] [address] [place], [address] FINGERSTICK GLU 160 mg/dL High [facility]106 [facility] Comment on above: Result Comment: ROSA GEMENT OF PATIENT CARE PER NURSING PROTOCOL Performed By: #### L 501.080 ####[facility] [address] [place], [address] Basic Metabolic Profile (BMP )on 01-13-2025 BUN/CRE 14.2 RATIO Normal 10-20 [facility] Comment on above: Performed By: #### L 500.2500, L100.0100 ####[facility] [address] [place], [address] Calcium [Mass/Vol] 8.9 mg/dL Normal 7.6-11.0 [facility] Comment on above: Performed By: #### L 500.2500, L100.0100 ####[facility] [address] [place], [address] Chloride [Moles/Vol] 103 mmol/L Normal 98-108 [facility] Comment on above: Performed By: #### L 500.2500, L100.0100 ####[facility] [address] [place], [address] CO2 [Moles/Vol] 19.7 mmol/L Low 21.0-32.0 [facility] Comment on above: Performed By: #### L 500.2500, L100.0100 ####[facility] [address] [place], [address] Creatinine [Mass/Vol] 1.95 mg/dL High 0.70-1.20 [facility] Comment on above: Performed By: #### L 500.2500, L100.0100 ####[facility] [address] [place], [address] ECRCL 27.16 ml/min Low 50-250 [facility] Comment on above: Performed By: #### L 500.2500, L100.0100 ####[facility] [address] [place], [address] GAP 11 Normal 5-15 [facility] Comment on above: Performed By: #### L 500.2500, L100.0100 ####[facility] [address] [place], [address] GFR/1.73 sq M.predicted among non-blacks MDRD (S/P/Bld) [Vol rate/Area] 35 mL/min/{1.73_m2} Low >60 [facility] Comment on above: Result Comment: mL/m in/1.73m2 CKD-EPI Creatinine Equation (2020) Performed By: #### L 500.2500, L100.0100 ####[facility] [address] [place], [address] Glucose [Mass/Vol] 229 mg/dL High 70-99 [facility] Comment on above: Performed By: #### L 500.2500, L100.0100 ####[facility] [address] [place], [address] Potassium [Moles/Vol] 4.4 mmol/L Normal 3.3-5.1 [facility] Comment on above: Performed By: #### L 500.2500, L100.0100 ####[facility] [address] [place], [address] Sodium [Moles/Vol] 133 mmol/L Normal 133-145 [facility] Comment on above: Performed By: #### L 500.2500, L100.0100 ####[facility] [address] [place], [address] Urea nitrogen [Mass/Vol] 28 mg/dL High 4-19 [facility] Comment on above: Performed By: #### L 500.2500, L100.0100 ####[facility] [address] [place], [address] Bedside Glucoseon 01-13-2025 FINGERSTICK GLU 238 mg/dL High 74-106 [facility] Comment on above: Result Comment: ROSA GEMENT OF PATIENT CARE PER NURSING PROTOCOL Performed By: #### L 501.080 ####[facility] [address] [place], [address] FINGERSTICK GLU 313 mg/dL High 74-106 [facility] Comment on above: Result Comment: ROSA GEMENT OF PATIENT CARE PER NURSING PROTOCOL Performed By: #### L 501.080 ####[facility] [address] [place], [address] FINGERSTICK GLU 244 mg/dL High 74-106 [facility] Comment on above: Result Comment: ROSA GEMENT OF PATIENT CARE PER NURSING PROTOCOL Performed By: #### L 501.080 ####[facility] [address] [place], [address] FINGERSTICK GLU 213 mg/dL High 74-106 [facility] Comment on above: Result Comment: ROSA GEMENT OF PATIENT CARE PER NURSING PROTOCOL Performed By: #### L 501.080 ####[facility] [address] [place], [address] CBC W/Diff, Automatedon - Absolute Lymph 2.24 X10 3/uL Normal 0.83-4.51 [facility] Comment on above: Performed By: #### L 500.2500, L100.0100 ####[facility] [address] [place], [address] Absolute Neut 5.8 X10 3/uL Normal 2.0-7.7 [facility] Comment on above: Performed By: #### L 500.2500, L100.0100 ####[facility] [address] [place], [address] Basophils/100 WBC (Bld) 0.4 % Normal 0-1 [facility] Comment on above: Performed By: #### L 500.2500, L100.0100 ####[facility] [address] [place], [address] Eosinophils/100 WBC (Bld) 6.6 % High 0-5 [facility] Comment on above: Performed By: #### L 500.2500, L100.0100 ####[facility] [address] [place], [address] Erythrocyte distribution width (RBC) [Ratio] 16.1 % High 11.6-14.6 [facility] Comment on above: Performed By: #### L 500.2500, L100.0100 ####[facility] [address] [place], [address] Hematocrit (Bld) [Volume fraction] 27.7 % Low 40-54 [facility] Comment on above: Performed By: #### L 500.2500, L100.0100 ####[facility] [address] [place], [address] Hemoglobin (Bld) [Mass/Vol] 9.0 g/dL Low 13.0-16.5 [facility] Comment on above: Performed By: #### L 500.2500, L100.0100 ####[facility] [address] [place], [address] IG% 1.200 High 0.0-0.9 [facility] Comment on above: Result Comment: IG% - Immature Granulocytes (promyelocytes, myelocytes andmetamyelocytes) > 1% indicates that a LEFT SHIFT is Present. Performed By: #### L 500.2500, L100.0100 ####[facility] [address] [place], [address] Lymphocytes/100 WBC (Bld) 24.2 % Normal 19-41 [facility] Comment on above: Performed By: #### L 500.2500, L100.0100 ####[facility] [address] [place], [address] MCH (RBC) [Entitic mass] 28.7 pg Normal 27.0-32.0 [facility] Comment on above: Performed By: #### L 500.2500, L100.0100 ####[facility] [address] [place], [address] MCHC (RBC) [Mass/Vol] 32.5 g/dL Normal 32-36 [facility] Comment on above: Performed By: #### L 500.2500, L100.0100 ####[facility] [address] [place], [address] MCV (RBC) [Entitic vol] 88.2 fL Normal 80-94 [facility] Comment on above: Performed By: #### L 500.2500, L100.0100 ####[facility] [address] [place], [address] Monocytes/100 WBC (Bld) 5.2 % Normal 0-10 [facility] Comment on above: Performed By: #### L 500.2500, L100.0100 ####[facility] [address] [place], [address] Neutrophils/100 WBC (Bld) 62.4 % Normal 47-70 [facility] Comment on above: Performed By: #### L 500.2500, L100.0100 ####[facility] [address] [place], [address] Nucleated RBC (Bld) [#/Vol] 0 10*3/uL Normal 0-5 [facility] Comment on above: Performed By: #### L 500.2500, L100.0100 ####[facility] [address] [place], [address] Platelet mean volume (Bld) [Entitic vol] 10.3 fL Normal 6.2-12.0 [facility] Comment on above: Performed By: #### L 500.2500, L100.0100 ####[facility] [address] [place], [address] Platelets (Bld) [#/Vol] 360 10*3/uL Normal 150-450 [facility] Comment on above: Performed By: #### L 500.2500, L100.0100 ####[facility] [address] [place], [address] RBC (Bld) [#/Vol] 3.14 10*6/uL Low 4.6-6.2 [facility] Comment on above: Performed By: #### L 500.2500, L100.0100 ####[facility] [address] [place], [address] RDW SD 51.8 fl High 35.1-43.9 [facility] Comment on above: Performed By: #### L 500.2500, L100.0100 ####[facility] [address] [place], [address] WBC (Bld) [#/Vol] 9.2 10*3/uL Normal 4.4-11.0 [facility] Comment on above: Performed By: #### L 500.2500, L100.0100 ####[facility] [address] [place], [address] 12 Lead EKGon 01-12-2025 12 Lead EKG Normal [facility] BRCon 01-12-2025 RC Normal [facility] Comment on above: Result Comment: [id number] OP RC TRANSFUSED 01/12/25 1001 Performed By: #### B TS, [facility] ####[facility] [address] [place], [address] Bedside Glucoseon 01-12-2025 FINGERSTICK GLU 243 mg/dL High 74-106 [facility] Comment on above: Result Comment: ROSA GEMENT OF PATIENT CARE PER NURSING PROTOCOL Performed By: #### L 501.080 ####[facility] [address] [place], [address] FINGERSTICK GLU 334 mg/dL High 74-106 [facility] Comment on above: Result Comment: ROSA GEMENT OF PATIENT CARE PER NURSING PROTOCOL Performed By: #### L 501.080 ####[facility] [address] [place], [address] FINGERSTICK GLU 268 mg/dL High 74-106 [facility] Comment on above: Result Comment: ROSA GEMENT OF PATIENT CARE PER NURSING PROTOCOL Performed By: #### L 501.080 ####[facility] [address] [place], [address] FINGERSTICK GLU 207 mg/dL High 74-106 [facility] Comment on above: Result Comment: ROSA GEMENT OF PATIENT CARE PER NURSING PROTOCOL Performed By: #### L 501.080 ####[facility] [address] [place], [address] Bilirubin, totalOrdered By: Marie Patino on 01-12-2025 Bilirubin [Mass/Vol] 0.20 mg/dL 0.00-1.30 [facility] CBC W/Diff, Automatedon 12-25 Absolute Lymph 1.63 X10 3/uL Normal 0.83-4.51 [facility] Comment on above: Performed By: #### L 501.5200, L500.4050, L501.1400, L501.2300, L100.0100 ####[facility] [address] [place], [address] Absolute Neut 3.7 X10 3/uL Normal 2.0-7.7 [facility] Comment on above: Performed By: #### L 501.5200, L500.4050, L501.1400, L501.2300, L100.0100 ####[facility] [address] [place], [address] Basophils/100 WBC (Bld) 0.3 % Normal 0-1 [facility] Comment on above: Performed By: #### L 501.5200, L500.4050, L501.1400, L501.2300, L100.0100 ####[facility] [address] [place], [address] Eosinophils/100 WBC (Bld) 25.7 % High 0-5 [facility] Comment on above: Performed By: #### L 501.5200, L500.4050, L501.1400, L501.2300, L100.0100 ####[facility] [address] [place], [address] Erythrocyte distribution width (RBC) [Ratio] 13.9 % Normal 11.6-14.6 [facility] Comment on above: Performed By: #### L 501.5200, L500.4050, L501.1400, L501.2300, L100.0100 ####[facility] [address] [place], [address] Hematocrit (Bld) [Volume fraction] 23.0 % Low 40-54 [facility] Comment on above: Performed By: #### L 501.5200, L500.4050, L501.1400, L501.2300, L100.0100 ####[facility] [address] [place], [address] Hemoglobin (Bld) [Mass/Vol] 7.7 g/dL Low 13.0-16.5 [facility] Comment on above: Performed By: #### L 501.5200, L500.4050, L501.1400, L501.2300, L100.0100 ####[facility] [address] [place], [address] IG% 0.600 Normal 0.0-0.9 [facility] Comment on above: Result Comment: IG% - Immature Granulocytes (promyelocytes, myelocytes andmetamyelocytes) > 1% indicates that a LEFT SHIFT is Present. Performed By: #### L 501.5200, L500.4050, L501.1400, L501.2300, L100.0100 ####[facility] [address] [place], [address] Lymphocytes/100 WBC (Bld) 21.1 % Normal 19-41 [facility] Comment on above: Performed By: #### L 501.5200, L500.4050, L501.1400, L501.2300, L100.0100 ####[facility] [address] [place], [address] MCH (RBC) [Entitic mass] 30.0 pg Normal 27.0-32.0 [facility] Comment on above: Performed By: #### L 501.5200, L500.4050, L501.1400, L501.2300, L100.0100 ####[facility] [address] [place], [address] MCHC (RBC) [Mass/Vol] 33.5 g/dL Normal 32-36 [facility] Comment on above: Performed By: #### L 501.5200, L500.4050, L501.1400, L501.2300, L100.0100 ####[facility] [address] [place], [address] MCV (RBC) [Entitic vol] 89.5 fL Normal 80-94 [facility] Comment on above: Performed By: #### L 501.5200, L500.4050, L501.1400, L501.2300, L100.0100 ####[facility] [address] [place], [address] Monocytes/100 WBC (Bld) 4.4 % Normal 0-10 [facility] Comment on above: Performed By: #### L 501.5200, L500.4050, L501.1400, L501.2300, L100.0100 ####[facility] [address] [place], [address] Neutrophils/100 WBC (Bld) 47.9 % Normal 47-70 [facility] Comment on above: Performed By: #### L 501.5200, L500.4050, L501.1400, L501.2300, L100.0100 ####[facility] [address] [place], [address] Nucleated RBC (Bld) [#/Vol] 0 10*3/uL Normal 0-5 [facility] Comment on above: Performed By: #### L 501.5200, L500.4050, L501.1400, L501.2300, L100.0100 ####[facility] [address] [place], [address] Platelet mean volume (Bld) [Entitic vol] 10.3 fL Normal 6.2-12.0 [facility] Comment on above: Performed By: #### L 501.5200, L500.4050, L501.1400, L501.2300, L100.0100 ####[facility] [address] [place], [address] Platelets (Bld) [#/Vol] 323 10*3/uL Normal 150-450 [facility] Comment on above: Performed By: #### L 501.5200, L500.4050, L501.1400, L501.2300, L100.0100 ####[facility] [address] [place], [address] RBC (Bld) [#/Vol] 2.57 10*6/uL Low 4.6-6.2 [facility] Comment on above: Performed By: #### L 501.5200, L500.4050, L501.1400, L501.2300, L100.0100 ####[facility] [address] [place], [address] RDW SD 45.1 fl High 35.1-43.9 [facility] Comment on above: Performed By: #### L 501.5200, L500.4050, L501.1400, L501.2300, L100.0100 ####[facility] [address] [place], [address] WBC (Bld) [#/Vol] 7.7 10*3/uL Normal 4.4-11.0 [facility] Comment on above: Performed By: #### L 501.5200, L500.4050, L501.1400, L501.2300, L100.0100 ####[facility] [address] [place], [address] Comprehensive Metabolic Prof [facility] 01-12-2025 Albumin [Mass/Vol] 2.7 g/dL Low 3.4-4.8 [facility] Comment on above: Performed By: #### L 501.5200, L500.4050, L501.1400, L501.2300, L100.0100 ####[facility] [address] [place], [address] Albumin/Globulin [Mass ratio] 0.9 {ratio} Normal 0.9-2.4 [facility] Comment on above: Performed By: #### L 501.5200, L500.4050, L501.1400, L501.2300, L100.0100 ####[facility] [address] [place], [address] ALK PHOS 78 U/L Normal 40-129 [facility] Comment on above: Performed By: #### L 501.5200, L500.4050, L501.1400, L501.2300, L100.0100 ####[facility] [address] [place], [address] ALT [Catalytic activity/Vol] 19 U/L Normal <=46 [facility] Comment on above: Performed By: #### L 501.5200, L500.4050, L501.1400, L501.2300, L100.0100 ####[facility] [address] [place], [address] AST [Catalytic activity/Vol] 20 U/L Normal <=37 [facility] Comment on above: Performed By: #### L 501.5200, L500.4050, L501.1400, L501.2300, L100.0100 ####[facility] [address] [place], [address] Bilirubin [Mass/Vol] 0.20 mg/dL Normal 0.00-1.30 [facility] Comment on above: Performed By: #### L 501.5200, L500.4050, L501.1400, L501.2300, L100.0100 ####[facility] [address] [place], [address] BUN/CRE 13.8 RATIO Normal 10-20 [facility] Comment on above: Performed By: #### L 501.5200, L500.4050, L501.1400, L501.2300, L100.0100 ####[facility] [address] [place], [address] Calcium [Mass/Vol] 8.5 mg/dL Normal 7.6-11.0 [facility] Comment on above: Performed By: #### L 501.5200, L500.4050, L501.1400, L501.2300, L100.0100 ####[facility] [address] [place], [address] Chloride [Moles/Vol] 100 mmol/L Normal 98-108 [facility] Comment on above: Performed By: #### L 501.5200, L500.4050, L501.1400, L501.2300, L100.0100 ####[facility] [address] [place], [address] CO2 [Moles/Vol] 21.5 mmol/L Normal 21.0-32.0 [facility] Comment on above: Performed By: #### L 501.5200, L500.4050, L501.1400, L501.2300, L100.0100 ####[facility] [address] [place], [address] Creatinine [Mass/Vol] 2.14 mg/dL High 0.70-1.20 [facility] Comment on above: Performed By: #### L 501.5200, L500.4050, L501.1400, L501.2300, L100.0100 ####[facility] [address] [place], [address] ECRCL 24.75 ml/min Low 50-250 [facility] Comment on above: Performed By: #### L 501.5200, L500.4050, L501.1400, L501.2300, L100.0100 ####[facility] [address] [place], [address] GAP 10 Normal 5-15 [facility] Comment on above: Performed By: #### L 501.5200, L500.4050, L501.1400, L501.2300, L100.0100 ####[facility] [address] [place], [address] GFR/1.73 sq M.predicted among non-blacks MDRD (S/P/Bld) [Vol rate/Area] 31 mL/min/{1.73_m2} Low >60 [facility] Comment on above: Result Comment: mL/m in/1.73m2 CKD-EPI Creatinine Equation (2020) Performed By: #### L 501.5200, L500.4050, L501.1400, L501.2300, L100.0100 ####[facility] [address] [place], [address] Globulin (S) [Mass/Vol] 3.0 g/dL Normal 2.2-4.2 [facility] Comment on above: Performed By: #### L 501.5200, L500.4050, L501.1400, L501.2300, L100.0100 ####[facility] [address] [place], [address] Glucose [Mass/Vol] 181 mg/dL High 70-99 [facility] Comment on above: Performed By: #### L 501.5200, L500.4050, L501.1400, L501.2300, L100.0100 ####[facility] [address] [place], [address] Potassium [Moles/Vol] 4.2 mmol/L Normal 3.3-5.1 [facility] Comment on above: Performed By: #### L 501.5200, L500.4050, L501.1400, L501.2300, L100.0100 ####[facility] [address] [place], [address] Sodium [Moles/Vol] 131 mmol/L Low 133-145 [facility] Comment on above: Performed By: #### L 501.5200, L500.4050, L501.1400, L501.2300, L100.0100 ####[facility] [address] [place], [address] T PROT 5.7 g/dL Low 5.9-8.4 [facility] Comment on above: Performed By: #### L 501.5200, L500.4050, L501.1400, L501.2300, L100.0100 ####[facility] [address] [place], [address] Urea nitrogen [Mass/Vol] 30 mg/dL High 4-19 [facility] Comment on above: Performed By: #### L 501.5200, L500.4050, L501.1400, L501.2300, L100.0100 ####[facility] [address] [place], [address] Magnesiumon 01-12-2025 Magnesium [Mass/Vol] 1.6 mg/dL Normal 1.5-2.2 [facility] Comment on above: Performed By: #### L 501.5200, L500.4050, L501.1400, L501.2300, L100.0100 ####[facility] [address] [place], [address] No Panel InformationOrdered By: Marie Patino on 01-12-2025 20 U/L <38 [facility] Phosphoruson 01-12-2025 Phosphate [Mass/Vol] 2.6 mg/dL Low 2.7-4.5 [facility] Comment on above: Performed By: #### L 501.5200, L500.4050, L501.1400, L501.2300, L100.0100 ####[facility] [address] [place], [place], [id number] Serum globulin measurementOr dered By: Marie Rochehiro on 01-12-2025 Globulin (S) [Mass/Vol] 3.0 g/dL 2.2-4.2 [facility] Serum or plasma alanine juárez otransferase (ALT) measurementOrdered By: Marie Carey on 01-12-2025 ALT [Catalytic activity/Vol] 19 U/L <47 [facility] Serum or plasma albumin/glob ulin mass ratioOrdered By: Marie [facility] [place] on 01-12-2025 Albumin/Globulin [Mass ratio] 0.9 {ratio} 0.9-2.4 [facility] Serum or plasma alkaline lucy sphatase measurementOrdered By: Marie Rochehiro on 01-12-2025 ALP [Catalytic activity/Vol] 78 U/L 40-129 [facility] Serum or plasma uric acid me asurement (mass/volume)Ordered By: Marie Rochehiro on 01-12-2025 Urate [Mass/Vol] 5.7 mg/dL 3.5-7.2 [facility] Total proteinOrdered By: Bridget Rochehiro on 01-12-2025 Protein [Mass/Vol] 5.7 g/dL Low 5.9-8.4 [facility] Type AND Screenon 01-12-2025 Ab SCREEN GEL Negative Normal [facility] Comment on above: Order Comment: CMV N EG? NNumber of units to transfuse: 1Reason for Ordering Blood: AcuteAre the blood/blood products to be transfused? YIs the patient having/had surgery? Geo Morales Performed By: #### B TS, BRC ####[facility] [id number] [place], [place], [id number] Uric Acidon 01-12-2025 URIC 5.7 mg/dL Normal 3.5-7.2 [facility] Comment on above: Result Comment: The drugs N-Acetylcysteine and Metamizole may falselydepress this assay. Performed By: #### L 501.5200, L500.4050, L501.1400, L501.2300, L100.0100 ####[facility] [id number] [place], [address] Basic metabolic 2000 panelon 01-11-2025 Anion gap [Moles/Vol] 9 mmol/L Normal 8-15 [facility] Comment on above: Order Comment: Speci men Type: BLOOD SPECIMENOrdering Facility: [facility] Address: [address] [place] [address] Performed By: #### 2 4321-2 ####[facility]ORYCLIA [id number] [place] [address] [place] Calcium [Mass/Vol] 8.2 mg/dL Low 8.5-10.2 [facility] Comment on above: Order Comment: Speci men Type: BLOOD SPECIMENOrdering Facility: [facility] Address: [address] [place] [address] Performed By: #### 2 4321-2 ####[facility]ATORYCLIA [id number] [place] [address] [place] Chloride [Moles/Vol] 99 mmol/L Normal 98-107 [facility] Comment on above: Order Comment: Speci men Type: BLOOD SPECIMENOrdering Facility: [facility] Address: [address] [place] [address] Performed By: #### 2 4321-2 ####[facility]ATORYCLIA [id number] [place] [address] [place] CO2 [Moles/Vol] 23 mmol/L Normal 22-30 [facility] Comment on above: Order Comment: Speci men Type: BLOOD SPECIMENOrdering Facility: [facility] Address: [address] [place] [address] Performed By: #### 2 4321-2 ####[facility]ORYCLIA [id number] [place] [address] [place] Creatinine [Mass/Vol] 2.66 mg/dL High 0.73-1.22 [facility] Comment on above: Order Comment: Stuart madrigal Type: BLOOD SPECIMENOrdering Facility: [facility] Address: [address] [place] [address] Performed By: #### 2 4321-2 ####[facility]ATORYCLIA [id number] [address] Creatinine and Glomerular filtration rate.predicted panel (S/P/Bld) 24 mL/min/1.73m??? Low >=60 [facility] Comment on above: Order Comment: Stuart madrigal Type: BLOOD SPECIMENOrdering Facility: [facility] Address: [address] [place] [address] Result Comment: Eli mated Glomerular Filtration Rate (eGFR) is calculated using the 2020 CKD-EPI creatinine equation. This equation utilizes serum creatinine, sex, and age as parameters. The creatinine assay has traceable calibration to isotope dilution-mass spectrometry. Refer to KDIGO guidelines for clinical interpretation. In patients with unstable renal function, e.g. those with acute kidney injury, the eGFR may not accurately reflect actual GFR. Performed By: #### 2 4321-2 ####[facility]ORYCLIA [id number] [address] STATES OF [facility] Glucose [Mass/Vol] 168 mg/dL High 74-99 [facility] Comment on above: Order Comment: Stuart madrigal Type: BLOOD SPECIMENOrdering Facility: [facility] Address: [address] [place] [address] Result Comment: The [place] Diabetes [employer] (ADA) provides guidance for cutoff values for fasting glucose and random glucose. The ADA defines fasting as no caloric intake for at least 8 hours. Fasting plasma glucose results between 100 to 125 mg/dL indicate increased risk for diabetes (prediabetes).Fasting plasma glucose results greater than or equal to 126 mg/dL meet the criteria for diagnosis of diabetes. In the absence of unequivocal hyperglycemia, results should be confirmed by repeat testing. In a patient with classic symptoms of hyperglycemia or hyperglycemic crisis, random plasma glucose results greater than or equal to 200 mg/dL meet the criteria for diagnosis of diabetes.Reference: Standards of Medical Care in Diabetes 2016, [place] [employer]. Diabetes Care. 2016.39(Suppl 1). Performed By: #### 2 4321-2 ####[facility]ATORYCLIA [id number] [address] STATES OF [facility] Potassium [Moles/Vol] 4.6 mmol/L Normal 3.7-5.1 [facility] Comment on above: Order Comment: Speci men Type: BLOOD SPECIMENOrdering Facility: [facility] Address: [address] [place] [address] Performed By: #### 2 4321-2 ####[facility]ORYCLIA [id number] [address] STATES OF [facility] Sodium [Moles/Vol] 131 mmol/L Low 136-144 [facility] Comment on above: Order Comment: Speci men Type: BLOOD SPECIMENOrdering Facility: [facility] Address: [address] [place] [address] Performed By: #### 2 4321-2 ####[facility]ATORYCLIA [id number] [address] STATES OF [facility] Urea nitrogen [Mass/Vol] 33 mg/dL High 9-24 [facility] Comment on above: Order Comment: Speci men Type: BLOOD SPECIMENOrdering Facility: [facility] Address: [address] [place] [address] Performed By: #### 2 4321-2 ####[facility]ATORYCLIA [id number] [place] [id number] [place] Bedside Glucoseon 01-11-2025 FINGERSTICK GLU 176 mg/dL High 74-106 [facility] Comment on above: Result Comment: ROSA GEMENT OF PATIENT CARE PER NURSING PROTOCOL Performed By: #### L 501.080 ####[facility] [id number] [place], [place], [address] FINGERSTICK GLU 169 mg/dL High 74-106 [facility] Comment on above: Result Comment: ROSA GEMENT OF PATIENT CARE PER NURSING PROTOCOL Performed By: #### L 501.080 ####[facility] [id number] [place], [address] CASE MANAGEMon 01-11-2025 CASE MANAGEM Normal [facility] CBC panel Auto (Bld)on 01-11 Erythrocyte distribution width (RBC) [Ratio] 13.5 % Normal 11.5-15.0 [facility] Comment on above: Order Comment: Speci men Type: BLOOD SPECIMENOrdering Facility: [facility] Address: [address] [place] [address] Performed By: #### 5 8410-2 ####[facility]ATORYCLIA [id number] [address] OF [facility] Hematocrit (Bld) [Volume fraction] 24.6 % Low 39.0-51.0 [facility] Comment on above: Order Comment: Speci men Type: BLOOD SPECIMENOrdering Facility: [facility] Address: [address] [place] [address] Performed By: #### 5 8410-2 ####[facility]ORYCLIA [id number] [address] [place] Hemoglobin (Bld) [Mass/Vol] 7.9 g/dL Low 13.0-17.0 [facility] Comment on above: Order Comment: Speci men Type: BLOOD SPECIMENOrdering Facility: [facility] Address: [address] [place] [address] Performed By: #### 5 8410-2 ####[facility]ORYCLIA [id number] [address] [place] MCH (RBC) [Entitic mass] 29.4 pg Normal 26.0-34.0 [facility] Comment on above: Order Comment: Speci men Type: BLOOD SPECIMENOrdering Facility: [facility] Address: [address] [place] [address] Performed By: #### 5 8410-2 ####[facility]ATORYCLIA [id number] [address] [place] MCHC (RBC) [Mass/Vol] 32.1 g/dL Normal 30.5-36.0 [facility] Comment on above: Order Comment: Speci men Type: BLOOD SPECIMENOrdering Facility: [facility] Address: [address] [place] [address] Performed By: #### 5 8410-2 ####[facility]ATORYCLIA [id number] [address] MCV (RBC) [Entitic vol] 91.4 fL Normal 80.0-100.0 [facility] Comment on above: Order Comment: Speci men Type: BLOOD SPECIMENOrdering Facility: [facility] Address: [address] [place] [address] Performed By: #### 5 8410-2 ####[facility]ATORYCLIA [id number] [address] OF [facility] Nucleated RBC (Bld) [#/Vol] 10*3/uL Normal <0.01 [facility] Comment on above: Order Comment: Speci men Type: BLOOD SPECIMENOrdering Facility: [facility] Address: [address] [place] [address] Performed By: #### 5 8410-2 ####[facility]ORYCLIA [id number] [address] Platelet mean volume (Bld) [Entitic vol] 10.2 fL Normal 9.0-12.7 [facility] Comment on above: Order Comment: Speci men Type: BLOOD SPECIMENOrdering Facility: [facility] Address: [address] [place] [address] Performed By: #### 5 8410-2 ####[facility]ORYCLIA [id number] [address] Platelets (Bld) [#/Vol] 299 10*3/uL Normal 150-400 [facility] Comment on above: Order Comment: Speci men Type: BLOOD SPECIMENOrdering Facility: [facility] Address: [address] [place] [address] Performed By: #### 5 8410-2 ####[facility]ATORYCLIA [id number] [place] [address] [place] RBC (Bld) [#/Vol] 2.69 10*6/uL Low 4.20-6.00 [facility] Comment on above: Order Comment: Speci men Type: BLOOD SPECIMENOrdering Facility: [facility] Address: [address] [place] [address] Performed By: #### 5 8410-2 ####[facility]ATORYCLIA [id number] [place] [id number] [place] WBC (Bld) [#/Vol] 8.09 10*3/uL Normal 3.70-11.00 [facility] Comment on above: Order Comment: Speci men Type: BLOOD SPECIMENOrdering Facility: [facility] Address: [address] [place] [address] Performed By: #### 5 8410-2 ####[facility]ATORYCLIA [id number] [address] [place] CNDSon 01-11-2025 CNDS Normal [facility] CONSULT PROGon 01-11-2025 CONSULT PROG Normal [facility] Stool Occult Blood iFOBon STOB Negative Normal [facility] Comment on above: Performed By: #### M 100.7900 ####[facility] [id number] [facility], [address] Stool gastrointestinal hemog lobin detection by immunologic methodOrdered By: Marie Patino on 01-11-2025 Lower GI hemoglobin IA Ql (Stl) [facility] Basic metabolic 2000 panelon 01-10-2025 Anion gap [Moles/Vol] 10 mmol/L Normal 8-15 [facility] Comment on above: Order Comment: Speci men Type: BLOOD SPECIMENOrdering Facility: [facility] Address: [address] [place] [address] Performed By: #### 2 4321-2 ####[facility]ORYCLIA [id number] [place] [id number] [place] Calcium [Mass/Vol] 8.3 mg/dL Low 8.5-10.2 [facility] Comment on above: Order Comment: Speci men Type: BLOOD SPECIMENOrdering Facility: [facility] Address: [address] [place] [address] Performed By: #### 2 4321-2 ####[facility]ATORYCLIA [id number] [place] [address] [place] Chloride [Moles/Vol] 95 mmol/L Low 98-107 [facility] Comment on above: Order Comment: Speci men Type: BLOOD SPECIMENOrdering Facility: [facility] Address: [address] [place] [address] Performed By: #### 2 4321-2 ####[facility]ORYCLIA [id number] [address] [place] CO2 [Moles/Vol] 26 mmol/L Normal 22-30 [facility] Comment on above: Order Comment: Speci men Type: BLOOD SPECIMENOrdering Facility: [facility] Address: [address] [place] [address] Performed By: #### 2 4321-2 ####[facility]ORYCLIA [id number] [place] [address] [place] Creatinine [Mass/Vol] 3.06 mg/dL High 0.73-1.22 [facility] Comment on above: Order Comment: Speci men Type: BLOOD SPECIMENOrdering Facility: [facility] Address: [address] [place] [address] Performed By: #### 2 4321-2 ####[facility]ATORYCLIA [id number] [address] [place] Creatinine and Glomerular filtration rate.predicted panel (S/P/Bld) 20 mL/min/1.73m??? Low >=60 [facility] Comment on above: Order Comment: Speci men Type: BLOOD SPECIMENOrdering Facility: [facility] Address: [address] [place] [address] Result Comment: Eli mated Glomerular Filtration Rate (eGFR) is calculated using the 2020 CKD-EPI creatinine equation. This equation utilizes serum creatinine, sex, and age as parameters. The creatinine assay has traceable calibration to isotope dilution-mass spectrometry. Refer to KDIGO guidelines for clinical interpretation. In patients with unstable renal function, e.g. those with acute kidney injury, the eGFR may not accurately reflect actual GFR. Performed By: #### 2 4321-2 ####[facility]ATORYCLIA [id number] [place] [address] [place] Glucose [Mass/Vol] 121 mg/dL High 74-99 [facility] Comment on above: Order Comment: Speci kaitlin Type: BLOOD SPECIMENOrdering Facility: [facility] Address: [address] [place] [address] Result Comment: The [place] Diabetes [employer] (ADA) provides guidance for cutoff values for fasting glucose and random glucose. The ADA defines fasting as no caloric intake for at least 8 hours. Fasting plasma glucose results between 100 to 125 mg/dL indicate increased risk for diabetes (prediabetes).Fasting plasma glucose results greater than or equal to 126 mg/dL meet the criteria for diagnosis of diabetes. In the absence of unequivocal hyperglycemia, results should be confirmed by repeat testing. In a patient with classic symptoms of hyperglycemia or hyperglycemic crisis, random plasma glucose results greater than or equal to 200 mg/dL meet the criteria for diagnosis of diabetes.Reference: Standards of Medical Care in Diabetes 2016, [place] [employer]. Diabetes Care. 2016.39(Suppl 1). Performed By: #### 2 4321-2 ####[facility]ATORYCLIA [id number] [place] [address] [place] Potassium [Moles/Vol] 4.2 mmol/L Normal 3.7-5.1 [facility] Comment on above: Order Comment: Stuart madrigal Type: BLOOD SPECIMENOrdering Facility: [facility] Address: [address] [place] [id number] Performed By: #### 2 4321-2 ####[facility]ATORYCLIA [id number] [place] [address] [place] Sodium [Moles/Vol] 131 mmol/L Low 136-144 [facility] Comment on above: Order Comment: Speci men Type: BLOOD SPECIMENOrdering Facility: [facility] Address: [address] [place] [address] Performed By: #### 2 4321-2 ####[facility]ATORYCLIA [id number] [address] [place] Urea nitrogen [Mass/Vol] 36 mg/dL High 9-24 [facility] Comment on above: Order Comment: Speci men Type: BLOOD SPECIMENOrdering Facility: [facility] Address: [address] [place] [address] Performed By: #### 2 4321-2 ####[facility]ATORYCLIA [id number] [address] [place] CBC panel Auto (Bld)on 01-10 Erythrocyte distribution width (RBC) [Ratio] 13.5 % Normal 11.5-15.0 [facility] Comment on above: Order Comment: Speci men Type: BLOOD SPECIMENOrdering Facility: [facility] Address: [address] [place] [address] Performed By: #### 5 8410-2 ####[facility]ATORYCLIA [id number] [address] OF [place] Hematocrit (Bld) [Volume fraction] 22.0 % Low 39.0-51.0 [facility] Comment on above: Order Comment: Speci men Type: BLOOD SPECIMENOrdering Facility: [facility] Address: [address] [place] [address] Performed By: #### 5 8410-2 ####[facility]ATORYCLIA [id number] [address] [place] Hemoglobin (Bld) [Mass/Vol] 7.1 g/dL Low 13.0-17.0 [facility] Comment on above: Order Comment: Speci men Type: BLOOD SPECIMENOrdering Facility: [facility] Address: [address] [place] [address] Performed By: #### 5 8410-2 ####[facility]ATORYCLIA [id number] [address] MCH (RBC) [Entitic mass] 29.3 pg Normal 26.0-34.0 [facility] Comment on above: Order Comment: Speci men Type: BLOOD SPECIMENOrdering Facility: [facility] Address: [address] [place] [address] Performed By: #### 5 8410-2 ####[facility]ORYCLIA [id number] [address] [place] MCHC (RBC) [Mass/Vol] 32.3 g/dL Normal 30.5-36.0 [facility] Comment on above: Order Comment: Speci men Type: BLOOD SPECIMENOrdering Facility: [facility] Address: [address] [place] [address] Performed By: #### 5 8410-2 ####[facility]ATORYCLIA [id number] [address] MCV (RBC) [Entitic vol] 90.9 fL Normal 80.0-100.0 [facility] Comment on above: Order Comment: Speci men Type: BLOOD SPECIMENOrdering Facility: [facility] Address: [address] [place] [address] Performed By: #### 5 8410-2 ####[facility]ORYCLIA [id number] [address] Nucleated RBC (Bld) [#/Vol] 10*3/uL Normal <0.01 [facility] Comment on above: Order Comment: Speci men Type: BLOOD SPECIMENOrdering Facility: [facility] Address: [address] [place] [address] Performed By: #### 5 8410-2 ####[facility]ATORYCLIA [id number] [address] Platelet mean volume (Bld) [Entitic vol] 10.2 fL Normal 9.0-12.7 [facility] Comment on above: Order Comment: Speci men Type: BLOOD SPECIMENOrdering Facility: [facility] Address: [address] [place] [address] Performed By: #### 5 8410-2 ####[facility]ATORYCLIA [id number] [place] [address] [facility] [place] Platelets (Bld) [#/Vol] 264 10*3/uL Normal 150-400 [facility] Comment on above: Order Comment: Speci men Type: BLOOD SPECIMENOrdering Facility: [facility] Address: [address] [place] [address] Performed By: #### 5 8410-2 ####[facility]ATORYCLIA [id number] [place] [address] [place] RBC (Bld) [#/Vol] 2.42 10*6/uL Low 4.20-6.00 [facility] Comment on above: Order Comment: Speci men Type: BLOOD SPECIMENOrdering Facility: [facility] Address: [address] [place] [address] Performed By: #### 5 8410-2 ####[facility]ATORYCLIA [id number] [address] [place] WBC (Bld) [#/Vol] 4.96 10*3/uL Normal 3.70-11.00 [facility] Comment on above: Order Comment: Speci men Type: BLOOD SPECIMENOrdering Facility: [facility] Address: [address] [place] [address] Performed By: #### 5 8410-2 ####[facility]ATORYCLIA [id number] [place] [address] [place] NUTRITIONon 01-10-2025 NUTRITION Normal [facility] THERAPY NTon 01-10-2025 THERAPY NT Normal [facility] THERAPY NT Normal [facility] Urine Cultureon 01-10-2025 URC Normal [facility] Comment on above: Performed By: #### M 100.2200 ####[facility] [address] [place], [place], [address] XR MOD BARIUM SWALLOW W SPEE Jose 01-10-2025 XR MOD BARIUM SWALLOW W SPEECH Normal [facility] Basic metabolic 2000 panelon 01-09-2025 Anion gap [Moles/Vol] 12 mmol/L Normal 8-15 [facility] Comment on above: Order Comment: Speci men Type: BLOOD SPECIMENOrdering Facility: [facility] Address: [address] [place] [address] Performed By: #### 2 4321-2 ####[facility]ATORYCLIA [id number] [place] [address] [place] Calcium [Mass/Vol] 7.7 mg/dL Low 8.5-10.2 [facility] Comment on above: Order Comment: Speci men Type: BLOOD SPECIMENOrdering Facility: [facility] Address: [address] [place] [address] Performed By: #### 2 4321-2 ####[facility]ATORYCLIA [id number] [place] [address] [place] Chloride [Moles/Vol] 92 mmol/L Low 98-107 [facility] Comment on above: Order Comment: Speci men Type: BLOOD SPECIMENOrdering Facility: [facility] Address: [address] [place] [address] Performed By: #### 2 4321-2 ####[facility]ATORYCLIA [id number] [place] [address] [place] CO2 [Moles/Vol] 27 mmol/L Normal 22-30 [facility] Comment on above: Order Comment: Speci men Type: BLOOD SPECIMENOrdering Facility: [facility] Address: [address] [place] [address] Performed By: #### 2 4321-2 ####[facility]ORYCLIA [id number] [place] [address] [place] Creatinine [Mass/Vol] 3.23 mg/dL High 0.73-1.22 [facility] Comment on above: Order Comment: Speci men Type: BLOOD SPECIMENOrdering Facility: [facility] Address: [address] [place] [address] Performed By: #### 2 4321-2 ####[facility]ATORYCLIA [id number] [place] [address] [place] Creatinine and Glomerular filtration rate.predicted panel (S/P/Bld) 19 mL/min/1.73m??? Low >=60 [facility] Comment on above: Order Comment: Stuart madrigal Type: BLOOD SPECIMENOrdering Facility: [facility] Address: [address] [place] [address] Result Comment: Eli mated Glomerular Filtration Rate (eGFR) is calculated using the 2020 CKD-EPI creatinine equation. This equation utilizes serum creatinine, sex, and age as parameters. The creatinine assay has traceable calibration to isotope dilution-mass spectrometry. Refer to KDIGO guidelines for clinical interpretation. In patients with unstable renal function, e.g. those with acute kidney injury, the eGFR may not accurately reflect actual GFR. Performed By: #### 2 4321-2 ####[facility]ORYCLIA [id number] [place] [address] [place] Glucose [Mass/Vol] 147 mg/dL High 74-99 [facility] Comment on above: Order Comment: Stuart madrigal Type: BLOOD SPECIMENOrdering Facility: [facility] Address: [address] [place] [address] Result Comment: The [place] [employer] (ADA) provides guidance for cutoff values for fasting glucose and random glucose. The ADA defines fasting as no caloric intake for at least 8 hours. Fasting plasma glucose results between 100 to 125 mg/dL indicate increased risk for diabetes (prediabetes).Fasting plasma glucose results greater than or equal to 126 mg/dL meet the criteria for diagnosis of diabetes. In the absence of unequivocal hyperglycemia, results should be confirmed by repeat testing. In a patient with classic symptoms of hyperglycemia or hyperglycemic crisis, random plasma glucose results greater than or equal to 200 mg/dL meet the criteria for diagnosis of diabetes.Reference: Standards of Medical Care in Diabetes 2016, [place] [employer]. Diabetes Care. 2016.39(Suppl 1). Performed By: #### 2 4321-2 ####[facility]ORATORYCLIA [id number] [place] [id number] [place] Potassium [Moles/Vol] 4.2 mmol/L Normal 3.7-5.1 [facility] Comment on above: Order Comment: Speci men Type: BLOOD SPECIMENOrdering Facility: [facility] Address: [address] [place] [address] Performed By: #### 2 4321-2 ####[facility] LABORATORYCLIA [id number] [address] [place] Sodium [Moles/Vol] 131 mmol/L Low 136-144 [facility] Comment on above: Order Comment: Speci men Type: BLOOD SPECIMENOrdering Facility: [facility] Address: [address] [place] [address] Performed By: #### 2 4321-2 ####[facility] LABORATORYCLIA [id number] [address] [place] Urea nitrogen [Mass/Vol] 39 mg/dL High 9-24 [facility] Comment on above: Order Comment: Speci men Type: BLOOD SPECIMENOrdering Facility: [facility] Address: [address] [place] [address] Performed By: #### 2 4321-2 ####[facility]ATORYCLIA [id number] [address] [place] CASE MGT INIT ASSESon 2024 CASE MGT INIT ASSES Normal [facility] CBC panel Auto (Bld)on 01-09 Erythrocyte distribution width (RBC) [Ratio] 13.9 % Normal 11.5-15.0 [facility] Comment on above: Order Comment: Speci men Type: BLOOD SPECIMENOrdering Facility: [facility] Address: [address] [place] [address] Performed By: #### 5 8410-2 ####[facility]ATORYCLIA [id number] [address] [place] Hematocrit (Bld) [Volume fraction] 21.5 % Low 39.0-51.0 [facility] Comment on above: Order Comment: Speci men Type: BLOOD SPECIMENOrdering Facility: [facility] Address: [address] [place] [address] Performed By: #### 5 8410-2 ####[facility]ATORYCLIA [id number] [address] OF [facility] Hemoglobin (Bld) [Mass/Vol] 7.1 g/dL Low 13.0-17.0 [facility] Comment on above: Order Comment: Speci men Type: BLOOD SPECIMENOrdering Facility: [facility] Address: [address] [place] [address] Performed By: #### 5 8410-2 ####[facility]ATORYCLIA [id number] [address] OF [facility] MCH (RBC) [Entitic mass] 29.7 pg Normal 26.0-34.0 [facility] Comment on above: Order Comment: Speci men Type: BLOOD SPECIMENOrdering Facility: [facility] Address: [address] [place] [address] Performed By: #### 5 8410-2 ####[facility]ATORYCLIA [id number] [address] MCHC (RBC) [Mass/Vol] 33.0 g/dL Normal 30.5-36.0 [facility] Comment on above: Order Comment: Speci men Type: BLOOD SPECIMENOrdering Facility: [facility] Address: [address] [place] [address] Performed By: #### 5 8410-2 ####[facility]ATORYCLIA [id number] [address] [place] MCV (RBC) [Entitic vol] 90.0 fL Normal 80.0-100.0 [facility] Comment on above: Order Comment: Speci men Type: BLOOD SPECIMENOrdering Facility: [facility] Address: [address] [place] [address] Performed By: #### 5 8410-2 ####[facility]ORATORYCLIA [id number] [address] OF [facility] Nucleated RBC (Bld) [#/Vol] 10*3/uL Normal <0.01 [facility] Comment on above: Order Comment: Speci men Type: BLOOD SPECIMENOrdering Facility: [facility] Address: [address] [place] [address] Performed By: #### 5 8410-2 ####[facility]ATORYCLIA [id number] [address] [place] Platelet mean volume (Bld) [Entitic vol] 10.4 fL Normal 9.0-12.7 [facility] Comment on above: Order Comment: Speci men Type: BLOOD SPECIMENOrdering Facility: [facility] Address: [address] [place] [address] Performed By: #### 5 8410-2 ####[facility]ATORYCLIA [id number] [address] [place] Platelets (Bld) [#/Vol] 253 10*3/uL Normal 150-400 [facility] Comment on above: Order Comment: Speci men Type: BLOOD SPECIMENOrdering Facility: [facility] Address: [address] [place] [address] Performed By: #### 5 8410-2 ####[facility]ORATORYCLIA [id number] [place] [address] [place] RBC (Bld) [#/Vol] 2.39 10*6/uL Low 4.20-6.00 [facility] Comment on above: Order Comment: Speci men Type: BLOOD SPECIMENOrdering Facility: [facility] Address: [address] [place] [address] Performed By: #### 5 8410-2 ####[facility]ATORYCLIA [id number] [place] [address] [place] WBC (Bld) [#/Vol] 3.68 10*3/uL Low 3.70-11.00 [facility] Comment on above: Order Comment: Speci men Type: BLOOD SPECIMENOrdering Facility: [facility] Address: [address] [place] [address] Performed By: #### 5 8410-2 ####[facility]ATORYCLIA [id number] [place] [address] [place] THERAPY NTon 01-09-2025 THERAPY NT Normal [facility] THERAPY NT Normal [facility] BRIEF OP NOTon 01-08-2025 BRIEF OP NOT Normal [facility] Bacteria Wnd Culton 01-09-20 25 Bacteria identified Cx Nom (Wound) Abnormal [facility] Comment on above: Performed By: #### 6 462-6 ####[facility]ATORYCLIA [id number] [place] [address] [facility] [place] Basic Metabolic Profile (BMP )on 01-08-2025 BUN Normal 4-19 [facility] Comment on above: Result Comment: Canc elled via OM: Order cancelled - Patient discharged Performed By: #### L 500.2500 ####[facility] [address] [employer] [facility] [address] BUN/CRE Normal 10-20 [facility] Comment on above: Result Comment: Canc elled via OM: Order cancelled - Patient discharged Performed By: #### L 500.2500 ####[facility] [address] [employer] [facility] [address] Calcium Normal 7.6-11.0 [facility] Comment on above: Result Comment: Canc elled via OM: Order cancelled - Patient discharged Performed By: #### L 500.2500 ####[facility] [address] [employer] [facility] [address] CL Normal 98-108 [facility] Comment on above: Result Comment: Canc elled via OM: Order cancelled - Patient discharged Performed By: #### L 500.2500 ####[facility] [address] [employer] [facility] [address] CO2 Normal 21.0-32.0 [facility] Comment on above: Result Comment: Canc elled via OM: Order cancelled - Patient discharged Performed By: #### L 500.2500 ####[facility] [address] [place], [address] CREAT,SERUM Normal 0.70-1.20 [facility] Comment on above: Result Comment: Canc elled via OM: Order cancelled - Patient discharged Performed By: #### L 500.2500 ####[facility] [address] [place], [address] eGFR Normal >60 [facility] Comment on above: Result Comment: Canc elled via OM: Order cancelled - Patient discharged Performed By: #### L 500.2500 ####[facility] [address] [place], [address] GAP Normal 5-15 [facility] Comment on above: Result Comment: Canc elled via OM: Order cancelled - Patient discharged Performed By: #### L 500.2500 ####[facility] [address] [place], [address] GLU Normal 70-99 [facility] Comment on above: Result Comment: Canc elled via OM: Order cancelled - Patient discharged Performed By: #### L 500.2500 ####[facility] [address] [place], [address] Potassium Normal 3.3-5.1 [facility] Comment on above: Result Comment: Canc elled via OM: Order cancelled - Patient discharged Performed By: #### L 500.2500 ####[facility] [address] [place], [address] Basic Metabolic Profile (BMP) Normal 133-145 [facility] Comment on above: Result Comment: Canc elled via OM: Order cancelled - Patient discharged Performed By: #### L 500.2500 ####[facility] [address] [place], [address] Basic metabolic 2000 panelon 01-08-2025 Anion gap [Moles/Vol] 13 mmol/L Normal 8-15 [facility] Comment on above: Order Comment: Speci men Type: BLOOD SPECIMENOrdering Facility: [facility] Address: [address] [place] [address] Performed By: #### 2 4321-2 ####[facility]ORATORYCLIA [id number] [place] [address] [place] Calcium [Mass/Vol] 7.7 mg/dL Low 8.5-10.2 [facility] Comment on above: Order Comment: Speci men Type: BLOOD SPECIMENOrdering Facility: [facility] Address: [address] [place] [address] Performed By: #### 2 4321-2 ####[facility]ATORYCLIA [id number] [place] [address] [place] Chloride [Moles/Vol] 88 mmol/L Low 98-107 [facility] Comment on above: Order Comment: Speci men Type: BLOOD SPECIMENOrdering Facility: [facility] Address: [address] [place] [address] Performed By: #### 2 4321-2 ####[facility]ATORYCLIA [id number] [place] [address] [place] CO2 [Moles/Vol] 30 mmol/L Normal 22-30 [facility] Comment on above: Order Comment: Speci men Type: BLOOD SPECIMENOrdering Facility: [facility] Address: [address] [place] [address] Performed By: #### 2 4321-2 ####[facility]ATORYCLIA [id number] [place] [address] [place] Creatinine [Mass/Vol] 3.31 mg/dL High 0.73-1.22 [facility] Comment on above: Order Comment: Speci men Type: BLOOD SPECIMENOrdering Facility: [facility] Address: [address] [place] [address] Performed By: #### 2 4321-2 ####[facility]ATORYCLIA [id number] [address] [place] Creatinine and Glomerular filtration rate.predicted panel (S/P/Bld) 18 mL/min/1.73m??? Low >=60 [facility] Comment on above: Order Comment: Stuart madrigal Type: BLOOD SPECIMENOrdering Facility: [facility] Address: [address] [place] [address] Result Comment: Eli mated Glomerular Filtration Rate (eGFR) is calculated using the 2020 CKD-EPI creatinine equation. This equation utilizes serum creatinine, sex, and age as parameters. The creatinine assay has traceable calibration to isotope dilution-mass spectrometry. Refer to KDIGO guidelines for clinical interpretation. In patients with unstable renal function, e.g. those with acute kidney injury, the eGFR may not accurately reflect actual GFR. Performed By: #### 2 4321-2 ####[facility]ATORYCLIA [id number] [place] [address] [place] Glucose [Mass/Vol] 139 mg/dL High 74-99 [facility] Comment on above: Order Comment: Stuart madrigal Type: BLOOD SPECIMENOrdering Facility: [facility] Address: [address] [place] [address] Result Comment: The [place] Diabetes [employer] (ADA) provides guidance for cutoff values for fasting glucose and random glucose. The ADA defines fasting as no caloric intake for at least 8 hours. Fasting plasma glucose results between 100 to 125 mg/dL indicate increased risk for diabetes (prediabetes).Fasting plasma glucose results greater than or equal to 126 mg/dL meet the criteria for diagnosis of diabetes. In the absence of unequivocal hyperglycemia, results should be confirmed by repeat testing. In a patient with classic symptoms of hyperglycemia or hyperglycemic crisis, random plasma glucose results greater than or equal to 200 mg/dL meet the criteria for diagnosis of diabetes.Reference: Standards of Medical Care in Diabetes 2016, [place] [employer]. Diabetes Care. 2016.39(Suppl 1). Performed By: #### 2 4321-2 ####[facility]ATORYCLIA [id number] [place] [address] [place] Potassium [Moles/Vol] 3.9 mmol/L Normal 3.7-5.1 [facility] Comment on above: Order Comment: Stuart madrigal Type: BLOOD SPECIMENOrdering Facility: [facility] Address: [address] [place] [address] Performed By: #### 2 4321-2 ####[facility]ORATORYCLIA [id number] [address] STATES [facility] Sodium [Moles/Vol] 131 mmol/L Low 136-144 [facility] Comment on above: Order Comment: Speci men Type: BLOOD SPECIMENOrdering Facility: [facility] Address: [address] [place] [address] Performed By: #### 2 4321-2 ####[facility]ATORYCLIA [id number] [address] [place] Urea nitrogen [Mass/Vol] 38 mg/dL High 9-24 [facility] Comment on above: Order Comment: Speci men Type: BLOOD SPECIMENOrdering Facility: [facility] Address: [address] [place] [address] Performed By: #### 2 4321-2 ####[facility]ATORYCLIA [id number] [address] CBC panel Auto (Bld)on 01-08 Erythrocyte distribution width (RBC) [Ratio] 14.5 % Normal 11.5-15.0 [facility] Comment on above: Order Comment: Speci men Type: BLOOD SPECIMENOrdering Facility: [facility] Address: [address] [place] [address] Performed By: #### 5 8410-2 ####[facility]ATORYCLIA [id number] [address] Hematocrit (Bld) [Volume fraction] 21.1 % Low 39.0-51.0 [facility] Comment on above: Order Comment: Speci men Type: BLOOD SPECIMENOrdering Facility: [facility] Address: [address] [place] [address] Performed By: #### 5 8410-2 ####[facility]ATORYCLIA [id number] [address] [place] Hemoglobin (Bld) [Mass/Vol] 7.1 g/dL Low 13.0-17.0 [facility] Comment on above: Order Comment: Speci men Type: BLOOD SPECIMENOrdering Facility: [facility] Address: [address] [place] [address] Performed By: #### 5 8410-2 ####[facility]ATORYCLIA [id number] [address] MCH (RBC) [Entitic mass] 30.5 pg Normal 26.0-34.0 [facility] Comment on above: Order Comment: Speci men Type: BLOOD SPECIMENOrdering Facility: [facility] Address: [address] [place] [address] Performed By: #### 5 8410-2 ####[facility]ATORYCLIA [id number] [address] MCHC (RBC) [Mass/Vol] 33.6 g/dL Normal 30.5-36.0 [facility] Comment on above: Order Comment: Speci men Type: BLOOD SPECIMENOrdering Facility: [facility] Address: [address] [place] [address] Performed By: #### 5 8410-2 ####[facility]ATORYCLIA [id number] [address] MCV (RBC) [Entitic vol] 90.6 fL Normal 80.0-100.0 [facility] Comment on above: Order Comment: Speci men Type: BLOOD SPECIMENOrdering Facility: [facility] Address: [address] [place] [address] Performed By: #### 5 8410-2 ####[facility]ATORYCLIA [id number] [address] Nucleated RBC (Bld) [#/Vol] 10*3/uL Normal <0.01 [facility] Comment on above: Order Comment: Speci men Type: BLOOD SPECIMENOrdering Facility: [facility] Address: [address] [place] [address] Performed By: #### 5 8410-2 ####[facility]ORYCLIA [id number] [address] Platelet mean volume (Bld) [Entitic vol] 10.9 fL Normal 9.0-12.7 [facility] Comment on above: Order Comment: Speci men Type: BLOOD SPECIMENOrdering Facility: [facility] Address: [address] [place] [address] Performed By: #### 5 8410-2 ####[facility]ATORYCLIA [id number] [address] [place] Platelets (Bld) [#/Vol] 264 10*3/uL Normal 150-400 [facility] Comment on above: Order Comment: Speci men Type: BLOOD SPECIMENOrdering Facility: [facility] Address: [address] [place] [address] Performed By: #### 5 8410-2 ####[facility]ATORYCLIA [id number] [address] [place] RBC (Bld) [#/Vol] 2.33 10*6/uL Low 4.20-6.00 [facility] Comment on above: Order Comment: Speci men Type: BLOOD SPECIMENOrdering Facility: [facility] Address: [address] [place] [address] Performed By: #### 5 8410-2 ####[facility]ORYCLIA [id number] [address] [place] WBC (Bld) [#/Vol] 3.58 10*3/uL Low 3.70-11.00 [facility] Comment on above: Order Comment: Speci men Type: BLOOD SPECIMENOrdering Facility: [facility] Address: [address] [place] [address] Performed By: #### 5 8410-2 ####[facility]ATORYCLIA [id number] [place] [id number] [place] CBC-Complete Blood Cnt No Di ffon 01-08-2025 HCT Normal 40-54 [facility] Comment on above: Result Comment: Canc elled via OM: Order cancelled - Patient discharged Performed By: #### L 100.0500 ####[facility] [address] [place], [address] HGB Normal 13.0-16.5 [facility] Comment on above: Result Comment: Canc elled via OM: Order cancelled - Patient discharged Performed By: #### L 100.0500 ####[facility] [address] [place], [address] MCH Normal 27.0-32.0 [facility] Comment on above: Result Comment: Canc elled via OM: Order cancelled - Patient discharged Performed By: #### L 100.0500 ####[facility] [address] [place], [address] MCHC Normal 32-36 [facility] Comment on above: Result Comment: Canc elled via OM: Order cancelled - Patient discharged Performed By: #### L 100.0500 ####[facility] [address] [place], [address] MCV Normal 80-94 [facility] Comment on above: Result Comment: Canc elled via OM: Order cancelled - Patient discharged Performed By: #### L 100.0500 ####[facility] [address] [place], [address] PLT Normal 150-450 [facility] Comment on above: Result Comment: Canc elled via OM: Order cancelled - Patient discharged Performed By: #### L 100.0500 ####[facility] [address] [place], [address] RBC Normal 4.6-6.2 [facility] Comment on above: Result Comment: Canc elled via OM: Order cancelled - Patient discharged Performed By: #### L 100.0500 ####[facility] [address] [place], [address] RDW CV Normal 11.6-14.6 [facility] Comment on above: Result Comment: Canc elled via OM: Order cancelled - Patient discharged Performed By: #### L 100.0500 ####[facility] [address] [place], [address] RDW SD Normal 35.1-43.9 [facility] Comment on above: Result Comment: Canc elled via OM: Order cancelled - Patient discharged Performed By: #### L 100.0500 ####[facility] [address] [place], [address] WBC Normal 4.4-11.0 [facility] Comment on above: Result Comment: Canc elled via OM: Order cancelled - Patient discharged Performed By: #### L 100.0500 ####[facility] [address] [place], [address] CONSULT PROGon 01-08-2025 CONSULT PROG Normal [facility] CT DRAIN PLACE SFT TISS FLUI D BIon 01-08-[address] SFT TISS FLUID BI Normal [facility] HISTORY PHYSICALon HISTORY PHYSICAL Normal [facility] HISTORY PHYSICAL Normal [facility] Lactate (Bld) [Moles/Vol]on 01-08-2025 Lactate [Moles/Vol] 1.2 mmol/L Normal 0.5-2.2 [facility] Comment on above: Order Comment: Speci men Type: BLOOD SPECIMENOrdering Facility: [facility] Address: [address] [place] [address] Performed By: #### 3 2693-4 ####[facility]ATORYCLIA [id number] [place] [address] [place] PT panel Coag (PPP)on 2024 INR Coag (PPP) [Relative time] 1.1 {INR} Normal 0.9-1.3 [facility] Comment on above: Order Comment: Speci men Type: BLOOD SPECIMENOrdering Facility: [facility] Address: [address] [place] [address] Result Comment: Merna min K Antagonist (VKA) Therapeutic Range: INR 2 to 3 (Target INR of 2.5)Note: For patients treated with VKA drugs, such as warfarin, the [place] [employer] 2012 Guideline recommends a therapeutic INR range of 2 to 3 (target INR of 2.5). This recommendation includes high-risk patients with antiphospholipid syndrome with previous arterial or venous thromboembolism, current-generation mechanical or bioprosthetic aortic heart valve replacement.Note: Patients with mechanical aortic valve replacement and additional risk factors for thromboembolic events (atrial fibrillation, previous thromboembolism, LV dysfunction, hypercoagulable conditions) or an older generation mechanical AVR (i.e., ball in-Cage) or any mechanical MVR should have a INR therapeutic range of 2.5 to 3.5 (target INR of 3).Urszula GH, et al. Chest 2012, 141:7S-47SNishimura RA, et al. [facility] 2017, 70: 252-289 Performed By: #### 3 4528-0 ####[facility]ATORYCLIA [id number] [place] [address] [place] PT Coag (PPP) [Time] 11.8 s Normal 9.7-13.0 [facility] Comment on above: Order Comment: Speci men Type: BLOOD SPECIMENOrdering Facility: [facility] Address: [address] [place] [address] Performed By: #### 3 4528-0 ####[facility]ATORYCLIA [id number] [address] [place] TYPE + SCREENon 01-08-2025 ABO O Normal [facility] Comment on above: Order Comment: Speci men Type: BLOOD SPECIMENOrdering Facility: [facility] Address: [address] [place] [address] Performed By: #### T SCR ####[facility] BANKCLIA [id number] [address] [place] Rh Nom (Bld) Positive Normal [facility] Comment on above: Order Comment: Speci men Type: BLOOD SPECIMENOrdering Facility: [facility] Address: [address] [place] [address] Performed By: #### T SCR ####[facility] BANKCLIA [id number] [place] [address] [facility] [place] TYPE AND SCREEN EXPIRATION 01/11/2025 23:59 Normal [facility] Comment on above: Order Comment: Speci men Type: BLOOD SPECIMENOrdering Facility: [facility] Address: [facility] [place] [facility] [place] [address] Performed By: #### T SCR ####[facility] BLOOD BANKCLIA [id number] [place] [address] [facility] 12 Lead EKGon 01-07-2025 12 Lead EKG Normal [facility] 12 Lead EKG Normal [facility] Abdomen/Pel W ORAL Cont Only on 01-07-2025 Abdomen/Pel W ORAL Cont Only Normal [facility] Anion gap in Serum or Plasma Ordered By: Jeremy Faith on 01-07-2025 Anion gap [Moles/Vol] 13 mmol/L 12-07 [facility] BRCon 01-07-2025 RC Normal [facility] Comment on above: Result Comment: [id number] ON READY Performed By: #### B , [facility] ####[facility] [address] [place], [address] BUN/creatinine ratioOrdered By: Jeremy Faith on 01-07-2025 Urea nitrogen/Creatinine [Mass ratio] 13.3 mg/mg - [facility] Basic Metabolic Profile (BMP )on 01-07-2025 BUN/CRE 13.3 RATIO Normal 05-14 [facility] Comment on above: Performed By: #### L 500.2500, L100.0500 ####[facility] [address] [place], [address] Calcium [Mass/Vol] 7.5 mg/dL Low 7.6-11.0 [facility] Comment on above: Performed By: #### L 500.2500, L100.0500 ####[facility] [address] [place], [address] Chloride [Moles/Vol] 86 mmol/L Low 98-108 [facility] Comment on above: Performed By: #### L 500.2500, L100.0500 ####[facility] [address] [place], [address] CO2 [Moles/Vol] 30.9 mmol/L Normal 21.0-32.0 [facility] Comment on above: Performed By: #### L 500.2500, L100.0500 ####[facility] [address] [place], [address] Creatinine [Mass/Vol] 2.88 mg/dL High 0.70-1.20 [facility] Comment on above: Performed By: #### L 500.2500, L100.0500 ####[facility] [address] [place], [address] ECRCL 18.80 ml/min Low 50-250 [facility] Comment on above: Performed By: #### L 500.2500, L100.0500 ####[facility] [address] [place], [address] GAP 13 Normal 5-15 [facility] Comment on above: Performed By: #### L 500.2500, L100.0500 ####[facility] [address] [place], [address] GFR/1.73 sq M.predicted among non-blacks MDRD (S/P/Bld) [Vol rate/Area] 22 mL/min/{1.73_m2} Low >60 [facility] Comment on above: Result Comment: mL/m in/1.73m2 CKD-EPI Creatinine Equation (2020) Performed By: #### L 500.2500, L100.0500 ####[facility] [address] [place], [address] Glucose [Mass/Vol] 166 mg/dL High 70-99 [facility] Comment on above: Performed By: #### L 500.2500, L100.0500 ####[facility] [address] [place], [address] Potassium [Moles/Vol] 3.9 mmol/L Normal 3.3-5.1 [facility] Comment on above: Performed By: #### L 500.2500, L100.0500 ####[facility] [address] [place], [address] Sodium [Moles/Vol] 130 mmol/L Low 133-145 [facility] Comment on above: Performed By: #### L 500.2500, L100.0500 ####[facility] [address] [place], [address] Urea nitrogen [Mass/Vol] 38 mg/dL High 4-19 [facility] Comment on above: Performed By: #### L 500.2500, L100.0500 ####[facility] [address] [place], [address] BUN Normal 4-19 [facility] Comment on above: Result Comment: Canc elled via OM: Order cancelled - Patient discharged Performed By: #### L 500.2500, L100.0100 ####[facility] [address] [place], [address] BUN/CRE Normal 10-20 [facility] Comment on above: Result Comment: Canc elled via OM: Order cancelled - Patient discharged Performed By: #### L 500.2500, L100.0100 ####[facility] [address] [place], [address] Calcium Normal 7.6-11.0 [facility] Comment on above: Result Comment: Canc elled via OM: Order cancelled - Patient discharged Performed By: #### L 500.2500, L100.0100 ####[facility] [address] [place], [address] CL Normal 98-108 [facility] Comment on above: Result Comment: Canc elled via OM: Order cancelled - Patient discharged Performed By: #### L 500.2500, L100.0100 ####[facility] [address] [place], [address] CO2 Normal 21.0-32.0 [facility] Comment on above: Result Comment: Canc elled via OM: Order cancelled - Patient discharged Performed By: #### L 500.2500, L100.0100 ####[facility] [address] [place], [address] CREAT,SERUM Normal 0.70-1.20 [facility] Comment on above: Result Comment: Canc elled via OM: Order cancelled - Patient discharged Performed By: #### L 500.2500, L100.0100 ####[facility] [address] [place], [address] eGFR Normal >60 [facility] Comment on above: Result Comment: Canc elled via OM: Order cancelled - Patient discharged Performed By: #### L 500.2500, L100.0100 ####[facility] [address] [place], [address] GAP Normal 5-15 [facility] Comment on above: Result Comment: Canc elled via OM: Order cancelled - Patient discharged Performed By: #### L 500.2500, L100.0100 ####[facility] [address] [place], [address] GLU Normal 70-99 [facility] Comment on above: Result Comment: Canc elled via OM: Order cancelled - Patient discharged Performed By: #### L 500.2500, L100.0100 ####[facility] [address] [place], [address] Potassium Normal 3.3-5.1 [facility] Comment on above: Result Comment: Canc elled via OM: Order cancelled - Patient discharged Performed By: #### L 500.2500, L100.0100 ####[facility] [address] [place], [address] Basic Metabolic Profile (BMP) Normal 133-145 [facility] Comment on above: Result Comment: Canc elled via OM: Order cancelled - Patient discharged Performed By: #### L 500.2500, L100.0100 ####[facility] [address] [place], [address] BUN/CRE 13.8 RATIO Normal 10-20 [facility] Comment on above: Performed By: #### L 500.2500 ####[facility] [address] [place], [address] Calcium [Mass/Vol] 7.5 mg/dL Low 7.6-11.0 [facility] Comment on above: Performed By: #### L 500.2500 ####[facility] [address] [place], [address] Chloride [Moles/Vol] 88 mmol/L Low 98-108 [facility] Comment on above: Performed By: #### L 500.2500 ####[facility] [address] [place], [address] CO2 [Moles/Vol] 30.8 mmol/L Normal 21.0-32.0 [facility] Comment on above: Performed By: #### L 500.2500 ####[facility] [address] [place], [address] Creatinine [Mass/Vol] 2.85 mg/dL High 0.70-1.20 [facility] Comment on above: Performed By: #### L 500.2500 ####[facility] [address] [place], [address] ECRCL 19.00 ml/min Low 50-250 [facility] Comment on above: Performed By: #### L 500.2500 ####[facility] [address] [place], [address] GAP 12 Normal 5-15 [facility] Comment on above: Performed By: #### L 500.2500 ####[facility] [address] [place], [address] GFR/1.73 sq M.predicted among non-blacks MDRD (S/P/Bld) [Vol rate/Area] 22 mL/min/{1.73_m2} Low >60 [facility] Comment on above: Result Comment: mL/m in/1.73m2 CKD-EPI Creatinine Equation (2020) Performed By: #### L 500.2500 ####[facility] [address] [place], [address] Glucose [Mass/Vol] 217 mg/dL High 70-99 [facility] Comment on above: Performed By: #### L 500.2500 ####[facility] [address] [place], [address] Potassium [Moles/Vol] 4.0 mmol/L Normal 3.3-5.1 [facility] Comment on above: Performed By: #### L 500.2500 ####[facility] [address] [place], [address] Sodium [Moles/Vol] 131 mmol/L Low 133-145 [facility] Comment on above: Performed By: #### L 500.2500 ####[facility] [address] [place], [address] Urea nitrogen [Mass/Vol] 39 mg/dL High 4-19 [facility] Comment on above: Performed By: #### L 500.2500 ####[facility] [address] [place], [address] Bedside Glucoseon 01-07-2025 FINGERSTICK GLU 131 mg/dL High 74-106 [facility] Comment on above: Result Comment: ROSA GEMENT OF PATIENT CARE PER NURSING PROTOCOL Performed By: #### L 501.080 ####[facility] [address] [place], [address] FINGERSTICK GLU 184 mg/dL High [address] [place] [address] Comment on above: Result Comment: ROSA GEMENT OF PATIENT CARE PER NURSING PROTOCOL Performed By: #### L 501.080 ####[facility] [address] [place], [address] FINGERSTICK GLU 158 mg/dL High [facility]106 [facility] Comment on above: Result Comment: ROSA GEMENT OF PATIENT CARE PER NURSING PROTOCOL Performed By: #### L 501.080 ####[facility] [address] [place], [address] FINGERSTICK GLU 260 mg/dL High [address] [place] [address] Comment on above: Result Comment: ROSA GEMENT OF PATIENT CARE PER NURSING PROTOCOL Performed By: #### L 501.080 ####[facility] [address] [place], [address] FINGERSTICK GLU 216 mg/dL High [address] [place] [address] Comment on above: Result Comment: ROSA GEMENT OF PATIENT CARE PER NURSING PROTOCOL Performed By: #### L 501.080 ####[facility] [address] [place], [address] CBC W/Diff, Automatedon - Absolute Neut Normal 2.0-7.7 [facility] Comment on above: Result Comment: Canc elled via OM: Order cancelled - Patient discharged Performed By: #### L 500.2500, L100.0100 ####[facility] [address] [place], [address] HCT Normal 40-54 [facility] Comment on above: Result Comment: Canc elled via OM: Order cancelled - Patient discharged Performed By: #### L 500.2500, L100.0100 ####[facility] [address] [place], [address] HGB Normal 13.0-16.5 [facility] Comment on above: Result Comment: Canc elled via OM: Order cancelled - Patient discharged Performed By: #### L 500.2500, L100.0100 ####[facility] [address] [place], [address] MCH Normal 27.0-32.0 [facility] Comment on above: Result Comment: Canc elled via OM: Order cancelled - Patient discharged Performed By: #### L 500.2500, L100.0100 ####[facility] [address] [place], [address] MCHC Normal 32-36 [facility] Comment on above: Result Comment: Canc elled via OM: Order cancelled - Patient discharged Performed By: #### L 500.2500, L100.0100 ####[facility] [address] [place], [address] MCV Normal 80-94 [facility] Comment on above: Result Comment: Canc elled via OM: Order cancelled - Patient discharged Performed By: #### L 500.2500, L100.0100 ####[facility] [address] [place], [address] NEUT% Normal 47-70 [facility] Comment on above: Result Comment: Canc elled via OM: Order cancelled - Patient discharged Performed By: #### L 500.2500, L100.0100 ####[facility] [address] [place], [address] PLT Normal 150-450 [facility] Comment on above: Result Comment: Canc elled via OM: Order cancelled - Patient discharged Performed By: #### L 500.2500, L100.0100 ####[facility] [address] [place], [address] RBC Normal 4.6-6.2 [facility] Comment on above: Result Comment: Canc elled via OM: Order cancelled - Patient discharged Performed By: #### L 500.2500, L100.0100 ####[facility] [address] [place], [address] RDW CV Normal 11.6-14.6 [facility] Comment on above: Result Comment: Canc elled via OM: Order cancelled - Patient discharged Performed By: #### L 500.2500, L100.0100 ####[facility] [address] [place], [address] RDW SD Normal 35.1-43.9 [facility] Comment on above: Result Comment: Canc elled via OM: Order cancelled - Patient discharged Performed By: #### L 500.2500, L100.0100 ####[facility] [address] [place], [address] WBC Normal 4.4-11.0 [facility] Comment on above: Result Comment: Canc elled via OM: Order cancelled - Patient discharged Performed By: #### L 500.2500, L100.0100 ####[facility] [address] [place], [address] CBC-Complete Blood Cnt No Di ffon 01-07-2025 Erythrocyte distribution width (RBC) [Ratio] 14.4 % Normal 11.6-14.6 [facility] Comment on above: Performed By: #### L 500.2500, L100.0500 ####[facility] [address] [place], [address] Hematocrit (Bld) [Volume fraction] 23.1 % Low 40-54 [facility] Comment on above: Performed By: #### L 500.2500, L100.0500 ####[facility] [address] [place], [address] Hemoglobin (Bld) [Mass/Vol] 7.9 g/dL Low 13.0-16.5 [facility] Comment on above: Performed By: #### L 500.2500, L100.0500 ####[facility] [address] [place], [address] MCH (RBC) [Entitic mass] 30.4 pg Normal 27.0-32.0 [facility] Comment on above: Performed By: #### L 500.2500, L100.0500 ####[facility] [address] [place], [address] MCHC (RBC) [Mass/Vol] 34.2 g/dL Normal 32-36 [facility] Comment on above: Performed By: #### L 500.2500, L100.0500 ####[facility] [address] [place], [address] MCV (RBC) [Entitic vol] 88.8 fL Normal 80-94 [facility] Comment on above: Performed By: #### L 500.2500, L100.0500 ####[facility] [address] [place], [address] Platelet mean volume (Bld) [Entitic vol] 10.1 fL Normal 6.2-12.0 [facility] Comment on above: Performed By: #### L 500.2500, L100.0500 ####[facility] [address] [place], [address] Platelets (Bld) [#/Vol] 276 10*3/uL Normal 150-450 [facility] Comment on above: Performed By: #### L 500.2500, L100.0500 ####[facility] [address] [place], [address] RBC (Bld) [#/Vol] 2.60 10*6/uL Low 4.6-6.2 [facility] Comment on above: Performed By: #### L 500.2500, L100.0500 ####[facility] [address] [place], [address] RDW SD 46.6 fl High 35.1-43.9 [facility] Comment on above: Performed By: #### L 500.2500, L100.0500 ####[facility] [address] [place], [address] WBC (Bld) [#/Vol] 5.8 10*3/uL Normal 4.4-11.0 [facility] Comment on above: Performed By: #### L 500.2500, L100.0500 ####[facility] [address] [place], [address] HCT Normal 40-54 [facility] Comment on above: Result Comment: Canc elled via OM: MD Ordered Performed By: #### L 100.0500 ####[facility] [address] [place], [address] HGB Normal 13.0-16.5 [facility] Comment on above: Result Comment: Canc elled via OM: MD Ordered Performed By: #### L 100.0500 ####[facility] [address] [place], [address] MCH Normal 27.0-32.0 [facility] Comment on above: Result Comment: Canc elled via OM: MD Ordered Performed By: #### L 100.0500 ####[facility] [address] [place], [address] MCHC Normal 32-36 [facility] Comment on above: Result Comment: Canc elled via OM: MD Ordered Performed By: #### L 100.0500 ####[facility] [address] [place], [address] MCV Normal 80-94 [facility] Comment on above: Result Comment: Canc elled via OM: MD Ordered Performed By: #### L 100.0500 ####[facility] [address] [place], [address] PLT Normal 150-450 [facility] Comment on above: Result Comment: Canc elled via OM: MD Ordered Performed By: #### L 100.0500 ####[facility] [address] [place], [address] RBC Normal 4.6-6.2 [facility] Comment on above: Result Comment: Canc elled via OM: MD Ordered Performed By: #### L 100.0500 ####[facility] [address] [place], [address] RDW CV Normal 11.6-14.6 [facility] Comment on above: Result Comment: Canc elled via OM: MD Ordered Performed By: #### L 100.0500 ####[facility] [address] [place], [address] RDW SD Normal 35.1-43.9 [facility] Comment on above: Result Comment: Canc elled via OM: MD Ordered Performed By: #### L 100.0500 ####[facility] [address] [place], [address] WBC Normal 4.4-11.0 [facility] Comment on above: Result Comment: Canc elled via OM: MD Ordered Performed By: #### L 100.0500 ####[facility] [address] [place], [address] Erythrocyte distribution width (RBC) [Ratio] 14.5 % Normal 11.6-14.6 [facility] Comment on above: Performed By: #### L 100.0500 ####[facility] [address] [place], [address] Hematocrit (Bld) [Volume fraction] 21.1 % Low 40-54 [facility] Comment on above: Performed By: #### L 100.0500 ####[facility] [address] [place], [address] Hemoglobin (Bld) [Mass/Vol] 7.0 g/dL Low 13.0-16.5 [facility] Comment on above: Performed By: #### L 100.0500 ####[facility] [address] [place], [address] MCH (RBC) [Entitic mass] 29.3 pg Normal 27.0-32.0 [facility] Comment on above: Performed By: #### L 100.0500 ####[facility] [address] [place], [address] MCHC (RBC) [Mass/Vol] 33.2 g/dL Normal 32-36 [facility] Comment on above: Performed By: #### L 100.0500 ####[facility] [address] [place], [address] MCV (RBC) [Entitic vol] 88.3 fL Normal 80-94 [facility] Comment on above: Performed By: #### L 100.0500 ####[facility] [address] [place], [address] Platelet mean volume (Bld) [Entitic vol] 10.1 fL Normal 6.2-12.0 [facility] Comment on above: Performed By: #### L 100.0500 ####[facility] [address] [place], [address] Platelets (Bld) [#/Vol] 274 10*3/uL Normal 150-450 [facility] Comment on above: Performed By: #### L 100.0500 ####[facility] [address] [place], [address] RBC (Bld) [#/Vol] 2.39 10*6/uL Low 4.6-6.2 [facility] Comment on above: Performed By: #### L 100.0500 ####[facility] [address] [place], [address] RDW SD 46.9 fl High 35.1-43.9 [facility] Comment on above: Performed By: #### L 100.0500 ####[facility] [address] [place], [address] WBC (Bld) [#/Vol] 6.1 10*3/uL Normal 4.4-11.0 [facility] Comment on above: Performed By: #### L 100.0500 ####[facility] [address] [place], [address] Carbon dioxide, total [Moles /volume] in Central venous bloodOrdered By: Jeremy Faith on 01-07-2025 CO2 [Moles/Vol] 30.9 mmol/L 21.0-32.0 [facility] Chest 1 View (Portable)on Chest 1 View (Portable) Normal [facility] Chloride assayOrdered By: Riley Faith on 01-07-2025 Chloride [Moles/Vol] 86 mmol/L Low 98-108 [facility] Erythrocyte distribution wid th ratioOrdered By: Jeremy Faith on 01-07-2025 Erythrocyte distribution width (RBC) [Ratio] 14.4 % 11.6-14.6 [facility] Erythrocyte distribution wid th standard deviationOrdered By: Jeremy Faith on 01-07-2025 Erythrocyte distribution width (RBC) [Ratio] 46.6 fl High 35.1-43.9 [facility] Glomerular filtration rate ( GFR) estimation/1.73 sq m using serum, plasma, or whole bOrdered By: Jeremy Faith on 01-07-2025 GFR/1.73 sq M.predicted among non-blacks MDRD (S/P/Bld) [Vol rate/Area] 22 mL/min/{1.73_m2} Low >60 [facility] Comment on above: mL/min/1.73m2 CKD-EP I Creatinine Equation (2020) Glucose measurement at bedsi deOrdered By: Jeremy Faith on 01-07-2025 Glucose [Mass/Vol] 131 mg/dL High 74-106 [facility] Comment on above: MANAGEMENT OF PATIEN T CARE PER NURSING PROTOCOL Hematocrit Auto (Bld) [Volum e fraction]Ordered By: Jeremy Faith on 01-07-2025 Hematocrit (Bld) [Volume fraction] 23.1 % Low 40-54 [facility] Hemoglobin measurementOrdere d By: Jeremy Faith on 01-07-2025 Hemoglobin (Bld) [Mass/Vol] 7.9 g/dL Low 13.0-16.5 [facility] MCV (mean corpuscular volume ) determinationOrdered By: Jeremy Faith on 01-07-2025 MCV (RBC) [Entitic vol] 88.8 fL 80-94 [facility] Mean corpuscular hemoglobin (MCH) determinationOrdered By: Jeremy Faith on 01-07-2025 MCH (RBC) [Entitic mass] 30.4 pg 27.0-32.0 [facility] Mean corpuscular hemoglobin concentration (MCHC) determinationOrdered By: Jeremy Faith on 01-07-2025 MCHC (RBC) [Mass/Vol] 34.2 g/dL 32-36 [facility] Mean platelet volume determi nationOrdered By: Jeremy Faith on 01-07-2025 Platelet mean volume (Bld) [Entitic vol] 10.1 fL 6.2-12.0 [facility] Platelet countOrdered By: Riley Faith on 01-07-2025 Platelets (Bld) [#/Vol] 276 10*3/uL 150-450 [facility] Potassium measurement (mass/ volume)Ordered By: Jeremy Faith on 01-07-2025 Potassium (Unsp spec) [Mass/Vol] 3.9 mmol/L 3.3-5.1 [facility] RBC Auto (Bld) [#/Vol]Ordere d By: Jeremy Faith on 01-07-2025 RBC (Bld) [#/Vol] 2.60 10*6/uL Low 4.6-6.2 [facility] Serum creatinine measurement (mass/volume)Ordered By: Jeremy Faith on 01-07-2025 Creatinine [Mass/Vol] 2.88 mg/dL High 0.70-1.20 [facility] Serum glucose measurement (m ass/volume)Ordered By: Jeremy Faith on 01-07-2025 Glucose [Mass/Vol] 166 mg/dL High 70-99 [facility] Serum or plasma calcium ivory urement (mass/volume)Ordered By: Jeremy Faith on 01-07-2025 Calcium [Mass/Vol] 7.5 mg/dL Low 7.6-11.0 [facility] Serum or plasma urea nitroge n measurement (mass/volume)Ordered By: Jeremy Faith on 01-07-2025 Urea nitrogen [Mass/Vol] 38 mg/dL High 4-19 [facility] Sodium levelOrdered By: Rolf Faith on 01-07-2025 Sodium [Moles/Vol] 130 mmol/L Low 133-145 [facility] Type AND Screenon 01-07-2025 Ab SCREEN GEL Negative Normal [facility] Comment on above: Order Comment: CMV N EG? NNumber of units to transfuse: 1Is there a >20% drop in pt's BP? YIs the pt's CVP (central venous pressure) <3 cm/H2O? NIs the EBL >/= 1000ml in adults or >/= 12ml/kg in children?NIs there an orthostatic change in pt's BP(SBP drop>10mmHg)? YIs pt's HR > 100 bpm? YReason for Ordering Blood: AcuteAre the blood/blood products to be transfused? YIs the patient having/had surgery? NWronaldo GoldenNN Performed By: #### B TS, [facility] ####[facility] [address] [place], [address] Urinalysis, Completeon 01-07 BACTERIA 3+ /hpf Normal None Seen [facility] Comment on above: Order Comment: PRITI TER SPECIMEN Performed By: #### L 400.0001 ####[facility] [address] [place], [address] Mucus Ql (Urine sed) 2+ /hpf Normal [facility] Comment on above: Order Comment: PRITI TER SPECIMEN Performed By: #### L 400.0001 ####[facility] [address] [place], [address] WBC >100 SEEN Normal 0-5 [facility] Comment on above: Order Comment: PRITI TER SPECIMEN Result Comment: Micr oscopic field is filled. Other elements may beobscured. Performed By: #### L 400.0001 ####[facility] [address] [facility] [address] BILIRUBIN URINE Negative Normal Negative [facility] Comment on above: Order Comment: PRITI TER SPECIMEN Performed By: #### L 400.0001 ####[facility] [address] [facility] [address] GLUCOSE, UR Normal Normal Normal [facility] Comment on above: Order Comment: PRITI TER SPECIMEN Performed By: #### L 400.0001 ####[facility] [address] [place], [address] KETONE UR Negative Normal Negative [facility] Comment on above: Order Comment: PRITI TER SPECIMEN Performed By: #### L 400.0001 ####[facility] [address] [place], [address] LEUK ESTERASE 500 /ul Abnormal Negative [facility] Comment on above: Order Comment: PRITI TER SPECIMEN Performed By: #### L 400.0001 ####[facility] [address] [place], [address] OCCULT BLOOD-UR 250 /ul Abnormal Negative [facility] Comment on above: Order Comment: PRITI TER SPECIMEN Performed By: #### L 400.0001 ####[facility] [address] [place], [address] pH UR 6.5 Normal 5.0 - 8.0 [facility] Comment on above: Order Comment: PRITI TER SPECIMEN Performed By: #### L 400.0001 ####[facility] [address] [place], [address] PROT DIPSTX 100 mg/dl Abnormal Negative [facility] Comment on above: Order Comment: PRITI TER SPECIMEN Performed By: #### L 400.0001 ####[facility] [address] [place], [address] SP.GR. DIPSTX 1.010 Normal 1.002-1.030 [facility] Comment on above: Order Comment: PRITI TER SPECIMEN Performed By: #### L 400.0001 ####[facility] [address] [place], [address] UROBILI Normal Normal Normal [facility] Comment on above: Order Comment: PRITI TER SPECIMEN Performed By: #### L 400.0001 ####[facility] [address] [place], [address] Urine clarityOrdered By: Latrice Pressley on 01-07-2025 Clarity (U) Cloudy Normal Clear [facility] Comment on above: Order Comment: PRITI TER SPECIMEN Performed By: #### L 400.0001 ####[facility] [address] [place], [address] Urine color determinationOrd ered By: Jeanne Pressley on 01-07-2025 Color (U) Yellow Normal Yellow [facility] Comment on above: Order Comment: PRITI TER SPECIMEN Performed By: #### L 400.0001 ####[facility] [address] [place], [address] Urine nitrite test by dipsti ckOrdered By: Jeanne Pressley on 01-07-2025 Nitrite Ql (U) Positive Abnormal Negative [facility] Comment on above: Order Comment: PRITI TER SPECIMEN Performed By: #### L 400.0001 ####[facility] [address] [place], [address] White blood cell (WBC) count Ordered By: Jeremy Faith on 01-07-2025 WBC (Bld) [#/Vol] 5.8 10*3/uL 4.4-11.0 [facility] Basic Metabolic Profile (BMP )on 01-06-2025 BUN/CRE 17.0 RATIO Normal 10-20 [facility] Comment on above: Performed By: #### L 500.2500 ####[facility] [address] [place], [address] Calcium [Mass/Vol] 8.3 mg/dL Normal 7.6-11.0 [facility] Comment on above: Performed By: #### L 500.2500 ####[facility] [address] [place], [address] Chloride [Moles/Vol] 95 mmol/L Low 98-108 [facility] Comment on above: Performed By: #### L 500.2500 ####[facility] [address] [place], [address] CO2 [Moles/Vol] 22.4 mmol/L Normal 21.0-32.0 [facility] Comment on above: Performed By: #### L 500.2500 ####[facility] [address] [place], [address] Creatinine [Mass/Vol] 2.54 mg/dL High 0.70-1.20 [facility] Comment on above: Performed By: #### L 500.2500 ####[facility] [address] [place], [address] ECRCL 21.31 ml/min Low 50-250 [facility] Comment on above: Performed By: #### L 500.2500 ####[facility] [address] [place], [address] GAP 13 Normal 5-15 [facility] Comment on above: Performed By: #### L 500.2500 ####[facility] [address] [place], [address] GFR/1.73 sq M.predicted among non-blacks MDRD (S/P/Bld) [Vol rate/Area] 25 mL/min/{1.73_m2} Low >60 [facility] Comment on above: Result Comment: mL/m in/1.73m2 CKD-EPI Creatinine Equation (2020) Performed By: #### L 500.2500 ####[facility] [address] [place], [address] Glucose [Mass/Vol] 247 mg/dL High 70-99 [facility] Comment on above: Performed By: #### L 500.2500 ####[facility] [address] [place], [address] Potassium [Moles/Vol] 5.8 mmol/L High 3.3-5.1 [facility] Comment on above: Performed By: #### L 500.2500 ####[facility] [address] [place], [address] Sodium [Moles/Vol] 130 mmol/L Low 133-145 [facility] Comment on above: Performed By: #### L 500.2500 ####[facility] [address] [place], [address] Urea nitrogen [Mass/Vol] 43 mg/dL High 4-19 [facility] Comment on above: Performed By: #### L 500.2500 ####[facility] [address] [place], [address] BUN Normal 4-19 [facility] Comment on above: Result Comment: Canc elled via OM: Order cancelled - Patient discharged Performed By: #### L 500.2500, L100.0100 ####[facility] [address] [place], [address] BUN/CRE Normal 10-20 [facility] Comment on above: Result Comment: Canc elled via OM: Order cancelled - Patient discharged Performed By: #### L 500.2500, L100.0100 ####[facility] [address] [place], [address] Calcium Normal 7.6-11.0 [facility] Comment on above: Result Comment: Canc elled via OM: Order cancelled - Patient discharged Performed By: #### L 500.2500, L100.0100 ####[facility] [address] [place], [address] CL Normal 98-108 [facility] Comment on above: Result Comment: Canc elled via OM: Order cancelled - Patient discharged Performed By: #### L 500.2500, L100.0100 ####[facility] [address] [place], [address] CO2 Normal 21.0-32.0 [facility] Comment on above: Result Comment: Canc elled via OM: Order cancelled - Patient discharged Performed By: #### L 500.2500, L100.0100 ####[facility] [address] [place], [address] CREAT,SERUM Normal 0.70-1.20 [facility] Comment on above: Result Comment: Canc elled via OM: Order cancelled - Patient discharged Performed By: #### L 500.2500, L100.0100 ####[facility] [address] [place], [address] eGFR Normal >60 [facility] Comment on above: Result Comment: Canc elled via OM: Order cancelled - Patient discharged Performed By: #### L 500.2500, L100.0100 ####[facility] [address] [place], [address] GAP Normal 5-15 [facility] Comment on above: Result Comment: Canc elled via OM: Order cancelled - Patient discharged Performed By: #### L 500.2500, L100.0100 ####[facility] [address] [place], [address] GLU Normal 70-99 [facility] Comment on above: Result Comment: Canc elled via OM: Order cancelled - Patient discharged Performed By: #### L 500.2500, L100.0100 ####[facility] [address] [place], [address] Potassium Normal 3.3-5.1 [facility] Comment on above: Result Comment: Canc elled via OM: Order cancelled - Patient discharged Performed By: #### L 500.2500, L100.0100 ####[facility] [address] [place], [address] Basic Metabolic Profile (BMP) Normal 133-145 [facility] Comment on above: Result Comment: Canc elled via OM: Order cancelled - Patient discharged Performed By: #### L 500.2500, L100.0100 ####[facility] [address] [place], [address] Bedside Glucoseon 01-06-2025 FINGERSTICK GLU 197 mg/dL High 74-106 [facility] Comment on above: Result Comment: ROSA GEMENT OF PATIENT CARE PER NURSING PROTOCOL Performed By: #### L 501.080 ####[facility] [address] [place], [address] FINGERSTICK GLU 221 mg/dL High 74-106 [facility] Comment on above: Result Comment: ROSA GEMENT OF PATIENT CARE PER NURSING PROTOCOL Performed By: #### L 501.080 ####[facility] [address] [place], [address] FINGERSTICK GLU 215 mg/dL High 74-106 [facility] Comment on above: Result Comment: ROSA GEMENT OF PATIENT CARE PER NURSING PROTOCOL Performed By: #### L 501.080 ####[facility] [address] [place], [address] FINGERSTICK GLU 239 mg/dL High 74-106 [facility] Comment on above: Result Comment: ROSA LAWRENCE OF PATIENT CARE PER NURSING PROTOCOL Performed By: #### L 501.080 ####[facility] [address] [place], [address] Bilirubin Test strip Ql (U)O rdered By: Jeanne Pressley on 01-06-2025 Bilirubin Ql (U) Negative Negative [facility] CBC W/Diff, Automatedon 12-24 Absolute Neut Normal 2.0-7.7 [facility] Comment on above: Result Comment: Canc elled via OM: Order cancelled - Patient discharged Performed By: #### L 500.2500, L100.0100 ####[facility] [address] [place], [address] HCT Normal 40-54 [facility] Comment on above: Result Comment: Canc elled via OM: Order cancelled - Patient discharged Performed By: #### L 500.2500, L100.0100 ####[facility] [address] [place], [address] HGB Normal 13.0-16.5 [facility] Comment on above: Result Comment: Canc elled via OM: Order cancelled - Patient discharged Performed By: #### L 500.2500, L100.0100 ####[facility] [address] [place], [address] MCH Normal 27.0-32.0 [facility] Comment on above: Result Comment: Canc elled via OM: Order cancelled - Patient discharged Performed By: #### L 500.2500, L100.0100 ####[facility] [address] [place], [address] MCHC Normal 32-36 [facility] Comment on above: Result Comment: Canc elled via OM: Order cancelled - Patient discharged Performed By: #### L 500.2500, L100.0100 ####[facility] [address] [place], [address] MCV Normal 80-94 [facility] Comment on above: Result Comment: Canc elled via OM: Order cancelled - Patient discharged Performed By: #### L 500.2500, L100.0100 ####[facility] [address] [place], [address] NEUT% Normal 47-70 [facility] Comment on above: Result Comment: Canc elled via OM: Order cancelled - Patient discharged Performed By: #### L 500.2500, L100.0100 ####[facility] [address] [place], [address] PLT Normal 150-450 [facility] Comment on above: Result Comment: Canc elled via OM: Order cancelled - Patient discharged Performed By: #### L 500.2500, L100.0100 ####[facility] [address] [place], [address] RBC Normal 4.6-6.2 [facility] Comment on above: Result Comment: Canc elled via OM: Order cancelled - Patient discharged Performed By: #### L 500.2500, L100.0100 ####[facility] [address] [place], [address] RDW CV Normal 11.6-14.6 [facility] Comment on above: Result Comment: Canc elled via OM: Order cancelled - Patient discharged Performed By: #### L 500.2500, L100.0100 ####[facility] [address] [place], [address] RDW SD Normal 35.1-43.9 [facility] Comment on above: Result Comment: Canc elled via OM: Order cancelled - Patient discharged Performed By: #### L 500.2500, L100.0100 ####[facility] [address] [place], [address] WBC Normal 4.4-11.0 [facility] Comment on above: Result Comment: Canc elled via OM: Order cancelled - Patient discharged Performed By: #### L 500.2500, L100.0100 ####[facility] [address] [place], [address] CBC-Complete Blood Cnt No Di ffon 01-06-2025 Erythrocyte distribution width (RBC) [Ratio] 14.3 % Normal 11.6-14.6 [facility] Comment on above: Performed By: #### L 100.0500 ####[facility] [address] [place], [address] Hematocrit (Bld) [Volume fraction] 26.6 % Low 40-54 [facility] Comment on above: Performed By: #### L 100.0500 ####[facility] [address] [place], [address] Hemoglobin (Bld) [Mass/Vol] 9.0 g/dL Low 13.0-16.5 [facility] Comment on above: Performed By: #### L 100.0500 ####[facility] [address] [place], [address] MCH (RBC) [Entitic mass] 30.3 pg Normal 27.0-32.0 [facility] Comment on above: Performed By: #### L 100.0500 ####[facility] [address] [place], [address] MCHC (RBC) [Mass/Vol] 33.8 g/dL Normal 32-36 [facility] Comment on above: Performed By: #### L 100.0500 ####[facility] [address] [place], [address] MCV (RBC) [Entitic vol] 89.6 fL Normal 80-94 [facility] Comment on above: Performed By: #### L 100.0500 ####[facility] [address] [place], [address] Platelet mean volume (Bld) [Entitic vol] 10.1 fL Normal 6.2-12.0 [facility] Comment on above: Performed By: #### L 100.0500 ####[facility] [address] [place], [address] Platelets (Bld) [#/Vol] 336 10*3/uL Normal 150-450 [facility] Comment on above: Performed By: #### L 100.0500 ####[facility] [address] [place], [address] RBC (Bld) [#/Vol] 2.97 10*6/uL Low 4.6-6.2 [facility] Comment on above: Performed By: #### L 100.0500 ####[facility] [address] [place], [address] RDW SD 46.4 fl High 35.1-43.9 [facility] Comment on above: Performed By: #### L 100.0500 ####[facility] [address] [place], [address] WBC (Bld) [#/Vol] 12.0 10*3/uL High 4.4-11.0 [facility] Comment on above: Performed By: #### L 100.0500 ####[facility] [address] [place], [address] Ketones Test strip Ql (U)Ord ered By: Jeanne Pressley on 01-06-2025 Ketones Ql (U) Negative Negative [facility] Microscopic analysis of urin e for red blood cells (RBC)Ordered By: Jeanne Pressley on 01-06-2025 Microscopic analysis of urine for red blood cells (RBC) 0 SEEN /hpf 0-5 [facility] Mucus LM Ql (Urine sed)Order ed By: Jeanne Pressley on 01-06-2025 Mucus Ql (Urine sed) 2+ /hpf [facility] Protein Test strip Ql (U)Ord ered By: Jeanne Pressley on 01-06-2025 Protein Ql (U) 100 mg/dl High Negative [facility] Squamous epithelial cells de tection in urine sediment by light microscopyOrdered By: Jeanne Pressley on 01-06-2025 Epithelial cells.squamous LM Ql (Urine sed) 0 SEEN /hpf 0-5 [facility] Urinalysis, Completeon 01-06 EPI,SQUAMOUS 0 SEEN Normal 0-5 [facility] Comment on above: Order Comment: PRITI TER SPECIMEN Performed By: #### L 400.0001 ####[facility] [address] [place], [place], [address] RBC 0 SEEN Normal 0-5 [facility] Comment on above: Order Comment: PRITI TER SPECIMEN Performed By: #### L 400.0001 ####[facility] [address] [place], [place], [id number] Urine cultureOrdered By: Latrice Pressley on 01-06-2025 Bacteria identified Cx Nom (U) Enterobacter cloacae complex Abnormal [facility] Urine glucose detectionOrder ed By: Jeanne Pressley on 01-06-2025 Glucose Ql (U) Normal mg/dl Normal [facility] Urine leukocyte esterase det ection by dipstickOrdered By: Jeanne Pressley on 01-06-2025 Leukocyte esterase Test strip Ql (U) 500 /ul High Negative [facility] Urine pHOrdered By: Jeanne Pressley on 01-06-2025 pH (U) 6.5 [pH] 5.0 - 8.0 [facility] Urine sediment bacteria coun t by microscopy (number/high power field)Ordered By: Jeanne Pressley on 01-06-2025 Bacteria LM.HPF (Urine sed) [#/Area] 3 /[HPF] None Seen [facility] Urine specific gravity measu rementOrdered By: Jeanne Pressley on 01-06-2025 Specific gravity (U) [Rel density] 1.010 1.002-1.030 [facility] Urine urobilinogen measureme ntOrdered By: Jeanne Pressley on 01-06-2025 Urobilinogen Ql (U) Normal mg/dl Normal [facility] White blood cell countOrdere d By: Jeanne Pressley on 01-06-2025 White blood cell count >100 SEEN /hpf 0-5 [facility] Comment on above: Microscopic field is filled. Other elements may be obscured. Basic Metabolic Profile (BMP )on 01-05-2025 BUN/CRE 21.1 RATIO High 10-20 [facility] Comment on above: Performed By: #### L 500.2500 ####[facility] [address] [place], [address] Calcium [Mass/Vol] 8.8 mg/dL Normal 7.6-11.0 [facility] Comment on above: Performed By: #### L 500.2500 ####[facility] [address] [place], [address] Chloride [Moles/Vol] 97 mmol/L Low 98-108 [facility] Comment on above: Performed By: #### L 500.2500 ####[facility] [address] [place], [address] CO2 [Moles/Vol] 21.0 mmol/L Normal 21.0-32.0 [facility] Comment on above: Performed By: #### L 500.2500 ####[facility] [address] [place], [address] Creatinine [Mass/Vol] 2.25 mg/dL High 0.70-1.20 [facility] Comment on above: Performed By: #### L 500.2500 ####[facility] [address] [place], [address] ECRCL 24.06 ml/min Low 50-250 [facility] Comment on above: Performed By: #### L 500.2500 ####[facility] [address] [place], [address] GAP 14 Normal 5-15 [facility] Comment on above: Performed By: #### L 500.2500 ####[facility] [address] [place], [address] GFR/1.73 sq M.predicted among non-blacks MDRD (S/P/Bld) [Vol rate/Area] 29 mL/min/{1.73_m2} Low >60 [facility] Comment on above: Result Comment: mL/m in/1.73m2 CKD-EPI Creatinine Equation (2020) Performed By: #### L 500.2500 ####[facility] [address] [place], [address] Glucose [Mass/Vol] 192 mg/dL High 70-99 [facility] Comment on above: Performed By: #### L 500.2500 ####[facility] [address] [place], [address] Potassium [Moles/Vol] 5.4 mmol/L High 3.3-5.1 [facility] Comment on above: Performed By: #### L 500.2500 ####[facility] [address] [place], [address] Sodium [Moles/Vol] 132 mmol/L Low 133-145 [facility] Comment on above: Performed By: #### L 500.2500 ####[facility] [address] [place], [address] Urea nitrogen [Mass/Vol] 47 mg/dL High 4-19 [facility] Comment on above: Performed By: #### L 500.2500 ####[facility] [address] [place], [address] BUN/CRE 21.1 RATIO High 10-20 [facility] Comment on above: Performed By: #### L 500.2500 ####[facility] [address] [place], [address] Calcium [Mass/Vol] 8.7 mg/dL Normal 7.6-11.0 [facility] Comment on above: Performed By: #### L 500.2500 ####[facility] [address] [place], [address] Chloride [Moles/Vol] 101 mmol/L Normal 98-108 [facility] Comment on above: Performed By: #### L 500.2500 ####[facility] [address] [place], [address] CO2 [Moles/Vol] 20.2 mmol/L Low 21.0-32.0 [facility] Comment on above: Performed By: #### L 500.2500 ####[facility] [address] [place], [address] Creatinine [Mass/Vol] 2.27 mg/dL High 0.70-1.20 [facility] Comment on above: Performed By: #### L 500.2500 ####[facility] [address] [place], [address] ECRCL 23.85 ml/min Low 50-250 [facility] Comment on above: Performed By: #### L 500.2500 ####[facility] [address] [place], [address] GAP 11 Normal 5-15 [facility] Comment on above: Performed By: #### L 500.2500 ####[facility] [address] [place], [address] GFR/1.73 sq M.predicted among non-blacks MDRD (S/P/Bld) [Vol rate/Area] 29 mL/min/{1.73_m2} Low >60 [facility] Comment on above: Result Comment: mL/m in/1.73m2 CKD-EPI Creatinine Equation (2020) Performed By: #### L 500.2500 ####[facility] [address] [place], [address] Glucose [Mass/Vol] 205 mg/dL High 70-99 [facility] Comment on above: Performed By: #### L 500.2500 ####[facility] [address] [place], [address] Potassium [Moles/Vol] 5.7 mmol/L High 3.3-5.1 [facility] Comment on above: Performed By: #### L 500.2500 ####[facility] [address] [place], [address] Sodium [Moles/Vol] 132 mmol/L Low 133-145 [facility] Comment on above: Performed By: #### L 500.2500 ####[facility] [address] [place], [address] Urea nitrogen [Mass/Vol] 48 mg/dL High 4-19 [facility] Comment on above: Performed By: #### L 500.2500 ####[facility] [address] [place], [address] BUN/CRE 21.7 RATIO High 10-20 [facility] Comment on above: Performed By: #### L 500.2500 ####[facility] [address] [place], [address] Calcium [Mass/Vol] 8.9 mg/dL Normal 7.6-11.0 [facility] Comment on above: Performed By: #### L 500.2500 ####[facility] [address] [place], [address] Chloride [Moles/Vol] 104 mmol/L Normal 98-108 [facility] Comment on above: Performed By: #### L 500.2500 ####[facility] [address] [place], [address] CO2 [Moles/Vol] 16.2 mmol/L Low 21.0-32.0 [facility] Comment on above: Performed By: #### L 500.2500 ####[facility] [address] [place], [address] Creatinine [Mass/Vol] 2.24 mg/dL High 0.70-1.20 [facility] Comment on above: Performed By: #### L 500.2500 ####[facility] [address] [place], [address] ECRCL 24.17 ml/min Low 50-250 [facility] Comment on above: Performed By: #### L 500.2500 ####[facility] [address] [place], [address] GAP 11 Normal 5-15 [facility] Comment on above: Performed By: #### L 500.2500 ####[facility] [address] [place], [address] GFR/1.73 sq M.predicted among non-blacks MDRD (S/P/Bld) [Vol rate/Area] 29 mL/min/{1.73_m2} Low >60 [facility] Comment on above: Result Comment: mL/m in/1.73m2 CKD-EPI Creatinine Equation (2020) Performed By: #### L 500.2500 ####[facility] [address] [place], [address] Glucose [Mass/Vol] 169 mg/dL High 70-99 [facility] Comment on above: Performed By: #### L 500.2500 ####[facility] [address] [place], [address] Potassium [Moles/Vol] 6.1 mmol/L Invalid Interpretation Code 3.3-5.1 [facility] Comment on above: Result Comment: Crit ical Result(s) Called to: ISABELLE VINCENT (MS2) by:RAFAL??Results read back by same. Performed By: #### L 500.2500 ####[facility] [address] [place], [address] Sodium [Moles/Vol] 132 mmol/L Low 133-145 [facility] Comment on above: Performed By: #### L 500.2500 ####[facility] [address] [place], [address] Urea nitrogen [Mass/Vol] 49 mg/dL High 4-19 [facility] Comment on above: Performed By: #### L 500.2500 ####[facility] [address] [place], [address] BUN Normal -19 [facility] Comment on above: Result Comment: Canc elled via OM: Order cancelled - Patient discharged Performed By: #### L 500.2500, L100.0100 ####[facility] [address] [place], [address] BUN/CRE Normal 10-20 [facility] [facility] Comment on above: Result Comment: Canc elled via OM: Order cancelled - Patient discharged Performed By: #### L 500.2500, L100.0100 ####[facility] [address] [place], [address] Calcium Normal 7.6-11.0 [facility] Comment on above: Result Comment: Canc elled via OM: Order cancelled - Patient discharged Performed By: #### L 500.2500, L100.0100 ####[facility] [address] [place], [address] CL Normal 98-108 [facility] Comment on above: Result Comment: Canc elled via OM: Order cancelled - Patient discharged Performed By: #### L 500.2500, L100.0100 ####[facility] [address] [place], [address] CO2 Normal 21.0-32.0 [facility] Comment on above: Result Comment: Canc elled via OM: Order cancelled - Patient discharged Performed By: #### L 500.2500, L100.0100 ####[facility] [address] [place], [address] CREAT,SERUM Normal 0.70-1.20 [facility] Comment on above: Result Comment: Canc elled via OM: Order cancelled - Patient discharged Performed By: #### L 500.2500, L100.0100 ####[facility] [address] [place], [address] eGFR Normal >60 [facility] Comment on above: Result Comment: Canc elled via OM: Order cancelled - Patient discharged Performed By: #### L 500.2500, L100.0100 ####[facility] [address] [place], [address] GAP Normal 5-15 [facility] Comment on above: Result Comment: Canc elled via OM: Order cancelled - Patient discharged Performed By: #### L 500.2500, L100.0100 ####[facility] [address] [place], [address] GLU Normal 70-99 [facility] Comment on above: Result Comment: Canc elled via OM: Order cancelled - Patient discharged Performed By: #### L 500.2500, L100.0100 ####[facility] [address] [place], [address] Potassium Normal 3.3-5.1 [facility] Comment on above: Result Comment: Canc elled via OM: Order cancelled - Patient discharged Performed By: #### L 500.2500, L100.0100 ####[facility] [address] [place], [address] Basic Metabolic Profile (BMP) Normal 133-145 [facility] Comment on above: Result Comment: Canc elled via OM: Order cancelled - Patient discharged Performed By: #### L 500.2500, L100.0100 ####[facility] [address] [place], [address] Bedside Glucoseon 01-05-2025 FINGERSTICK GLU 224 mg/dL High [address] [place] [address] Comment on above: Result Comment: ROSA GEMENT OF PATIENT CARE PER NURSING PROTOCOL Performed By: #### L 501.080 ####[facility] [address] [place], [address] FINGERSTICK GLU 315 mg/dL High [facility]106 [facility] Comment on above: Result Comment: ROSA GEMENT OF PATIENT CARE PER NURSING PROTOCOL Performed By: #### L 501.080 ####[facility] [address] [place], [address] FINGERSTICK GLU 195 mg/dL High [address] [place] [address] Comment on above: Result Comment: ROSA GEMENT OF PATIENT CARE PER NURSING PROTOCOL Performed By: #### L 501.080 ####[facility] [address] [place], [address] FINGERSTICK GLU 172 mg/dL High [address] [place] [address] Comment on above: Result Comment: ROSA GEMENT OF PATIENT CARE PER NURSING PROTOCOL Performed By: #### L 501.080 ####[facility] [address] [place], [address] CBC W/Diff, Automatedon 12-24 Absolute Neut Normal 2.0-7.7 [facility] Comment on above: Result Comment: Canc elled via OM: Order cancelled - Patient discharged Performed By: #### L 500.2500, L100.0100 ####[facility] [address] [place], [address] HCT Normal 40-54 [facility] Comment on above: Result Comment: Canc elled via OM: Order cancelled - Patient discharged Performed By: #### L 500.2500, L100.0100 ####[facility] [address] [place], [address] HGB Normal 13.0-16.5 [facility] Comment on above: Result Comment: Canc elled via OM: Order cancelled - Patient discharged Performed By: #### L 500.2500, L100.0100 ####[facility] [address] [place], [address] MCH Normal 27.0-32.0 [facility] Comment on above: Result Comment: Canc elled via OM: Order cancelled - Patient discharged Performed By: #### L 500.2500, L100.0100 ####[facility] [address] [place], [address] MCHC Normal 32-36 [facility] Comment on above: Result Comment: Canc elled via OM: Order cancelled - Patient discharged Performed By: #### L 500.2500, L100.0100 ####[facility] [address] [place], [address] MCV Normal 80-94 [facility] Comment on above: Result Comment: Canc elled via OM: Order cancelled - Patient discharged Performed By: #### L 500.2500, L100.0100 ####[facility] [address] [place], [address] NEUT% Normal 47-70 [facility] Comment on above: Result Comment: Canc elled via OM: Order cancelled - Patient discharged Performed By: #### L 500.2500, L100.0100 ####[facility] [address] [place], [address] PLT Normal 150-450 [facility] Comment on above: Result Comment: Canc elled via OM: Order cancelled - Patient discharged Performed By: #### L 500.2500, L100.0100 ####[facility] [address] [place], [address] RBC Normal 4.6-6.2 [facility] Comment on above: Result Comment: Canc elled via OM: Order cancelled - Patient discharged Performed By: #### L 500.2500, L100.0100 ####[facility] [address] [place], [address] RDW CV Normal 11.6-14.6 [facility] Comment on above: Result Comment: Canc elled via OM: Order cancelled - Patient discharged Performed By: #### L 500.2500, L100.0100 ####[facility] [address] [place], [address] RDW SD Normal 35.1-43.9 [facility] Comment on above: Result Comment: Canc elled via OM: Order cancelled - Patient discharged Performed By: #### L 500.2500, L100.0100 ####[facility] [address] [place], [address] WBC Normal 4.4-11.0 [facility] Comment on above: Result Comment: Canc elled via OM: Order cancelled - Patient discharged Performed By: #### L 500.2500, L100.0100 ####[facility] [address] [place], [address] CBC-Complete Blood Cnt No Di ffon 01-05-2025 Erythrocyte distribution width (RBC) [Ratio] 14.4 % Normal 11.6-14.6 [facility] Comment on above: Performed By: #### L 100.0500 ####[facility] [address] [place], [address] Hematocrit (Bld) [Volume fraction] 25.1 % Low 40-54 [facility] Comment on above: Performed By: #### L 100.0500 ####[facility] [address] [place], [address] Hemoglobin (Bld) [Mass/Vol] 8.3 g/dL Low 13.0-16.5 [facility] Comment on above: Performed By: #### L 100.0500 ####[facility] [address] [place], [address] MCH (RBC) [Entitic mass] 30.0 pg Normal 27.0-32.0 [facility] Comment on above: Performed By: #### L 100.0500 ####[facility] [address] [place], [address] MCHC (RBC) [Mass/Vol] 33.1 g/dL Normal 32-36 [facility] Comment on above: Performed By: #### L 100.0500 ####[facility] [address] [place], [address] MCV (RBC) [Entitic vol] 90.6 fL Normal 80-94 [facility] Comment on above: Performed By: #### L 100.0500 ####[facility] [address] [place], [address] Platelet mean volume (Bld) [Entitic vol] 10.4 fL Normal 6.2-12.0 [facility] Comment on above: Performed By: #### L 100.0500 ####[facility] [address] [place], [address] Platelets (Bld) [#/Vol] 375 10*3/uL Normal 150-450 [facility] Comment on above: Performed By: #### L 100.0500 ####[facility] [address] [place], [address] RBC (Bld) [#/Vol] 2.77 10*6/uL Low 4.6-6.2 [facility] Comment on above: Performed By: #### L 100.0500 ####[facility] [address] [place], [address] RDW SD 47.8 fl High 35.1-43.9 [facility] Comment on above: Performed By: #### L 100.0500 ####[facility] [address] [place], [address] WBC (Bld) [#/Vol] 8.4 10*3/uL Normal 4.4-11.0 [facility] Comment on above: Performed By: #### L 100.0500 ####[facility] [address] [place], [address] Consultation - Nephrologyon 01-05-2025 Consultation - Nephrology Normal [facility] Abdomen/Pel W ORAL Cont Only on 01-04-2025 Abdomen/Pel W ORAL Cont Only Normal [facility] Basic Metabolic Profile (BMP )on 01-04-2025 BUN/CRE 21.5 RATIO High 10-20 [facility] Comment on above: Performed By: #### L 500.2500 ####[facility] [address] [place], [address] Calcium [Mass/Vol] 9.1 mg/dL Normal 7.6-11.0 [facility] Comment on above: Performed By: #### L 500.2500 ####[facility] [address] [place], [address] Chloride [Moles/Vol] 100 mmol/L Normal 98-108 [facility] Comment on above: Performed By: #### L 500.2500 ####[facility] [address] [place], [address] CO2 [Moles/Vol] 16.7 mmol/L Low 21.0-32.0 [facility] Comment on above: Performed By: #### L 500.2500 ####[facility] [address] [place], [address] Creatinine [Mass/Vol] 2.28 mg/dL High 0.70-1.20 [facility] Comment on above: Performed By: #### L 500.2500 ####[facility] [address] [place], [address] ECRCL 23.74 ml/min Low 50-250 [facility] Comment on above: Performed By: #### L 500.2500 ####[facility] [address] [place], [address] GAP 15 Normal 5-15 [facility] Comment on above: Performed By: #### L 500.2500 ####[facility] [address] [place], [address] GFR/1.73 sq M.predicted among non-blacks MDRD (S/P/Bld) [Vol rate/Area] 29 mL/min/{1.73_m2} Low >60 [facility] Comment on above: Result Comment: mL/m in/1.73m2 CKD-EPI Creatinine Equation (2020) Performed By: #### L 500.2500 ####[facility] [address] [place], [address] Glucose [Mass/Vol] 138 mg/dL High 70-99 [facility] Comment on above: Performed By: #### L 500.2500 ####[facility] [address] [place], [address] Potassium [Moles/Vol] 5.4 mmol/L High 3.3-5.1 [facility] Comment on above: Performed By: #### L 500.2500 ####[facility] [address] [place], [address] Sodium [Moles/Vol] 132 mmol/L Low 133-145 [facility] Comment on above: Performed By: #### L 500.2500 ####[facility] [address] [place], [address] Urea nitrogen [Mass/Vol] 49 mg/dL High 4-19 [facility] Comment on above: Performed By: #### L 500.2500 ####[facility] [address] [place], [address] BUN/CRE 22.2 RATIO High 10-20 [facility] Comment on above: Performed By: #### L 500.2500 ####[facility] [address] [place], [address] Calcium [Mass/Vol] 9.4 mg/dL Normal 7.6-11.0 [facility] Comment on above: Performed By: #### L 500.2500 ####[facility] [address] [place], [address] Chloride [Moles/Vol] 104 mmol/L Normal 98-108 [facility] Comment on above: Performed By: #### L 500.2500 ####[facility] [address] [place], [address] CO2 [Moles/Vol] 17.9 mmol/L Low 21.0-32.0 [facility] Comment on above: Performed By: #### L 500.2500 ####[facility] [address] [place], [address] Creatinine [Mass/Vol] 2.44 mg/dL High 0.70-1.20 [facility] Comment on above: Performed By: #### L 500.2500 ####[facility] [address] [place], [address] ECRCL 22.19 ml/min Low 50-250 [facility] Comment on above: Performed By: #### L 500.2500 ####[facility] [address] [place], [address] GAP 14 Normal 5-15 [facility] Comment on above: Performed By: #### L 500.2500 ####[facility] [address] [place], [address] GFR/1.73 sq M.predicted among non-blacks MDRD (S/P/Bld) [Vol rate/Area] 26 mL/min/{1.73_m2} Low >60 [facility] Comment on above: Result Comment: mL/m in/1.73m2 CKD-EPI Creatinine Equation (2020) Performed By: #### L 500.2500 ####[facility] [address] [place], [address] Glucose [Mass/Vol] 168 mg/dL High 70-99 [facility] Comment on above: Performed By: #### L 500.2500 ####[facility] [address] [place], [address] Potassium [Moles/Vol] 6.1 mmol/L Invalid Interpretation Code 3.3-5.1 [facility] Comment on above: Result Comment: Crit ical Result(s) Called at 1315: by: MARSHALL HUI. ??Results read back by same. Performed By: #### L 500.2500 ####[facility] [address] [place], [address] Sodium [Moles/Vol] 136 mmol/L Normal 133-145 [facility] Comment on above: Performed By: #### L 500.2500 ####[facility] [address] [place], [address] Urea nitrogen [Mass/Vol] 54 mg/dL High 4-19 [facility] Comment on above: Performed By: #### L 500.2500 ####[facility] [address] [place], [address] BUN Normal 4-19 [facility] Comment on above: Result Comment: Canc elled via OM: Order cancelled - Patient discharged Performed By: #### L 500.2500, L100.0100 ####[facility] [address] [place], [address] BUN/CRE Normal 10-20 [facility] Comment on above: Result Comment: Canc elled via OM: Order cancelled - Patient discharged Performed By: #### L 500.2500, L100.0100 ####[facility] [address] [place], [address] Calcium Normal 7.6-11.0 [facility] Comment on above: Result Comment: Canc elled via OM: Order cancelled - Patient discharged Performed By: #### L 500.2500, L100.0100 ####[facility] [address] [place], [address] CL Normal 98-108 [facility] Comment on above: Result Comment: Canc elled via OM: Order cancelled - Patient discharged Performed By: #### L 500.2500, L100.0100 ####[facility] [address] [place], [address] CO2 Normal 21.0-32.0 [facility] Comment on above: Result Comment: Canc elled via OM: Order cancelled - Patient discharged Performed By: #### L 500.2500, L100.0100 ####[facility] [address] [place], [address] CREAT,SERUM Normal 0.70-1.20 [facility] Comment on above: Result Comment: Canc elled via OM: Order cancelled - Patient discharged Performed By: #### L 500.2500, L100.0100 ####[facility] [address] [place], [address] eGFR Normal >60 [facility] Comment on above: Result Comment: Canc elled via OM: Order cancelled - Patient discharged Performed By: #### L 500.2500, L100.0100 ####[facility] [address] [place], [address] GAP Normal 5-15 [facility] Comment on above: Result Comment: Canc elled via OM: Order cancelled - Patient discharged Performed By: #### L 500.2500, L100.0100 ####[facility] [address] [place], [address] GLU Normal 70-99 [facility] Comment on above: Result Comment: Canc elled via OM: Order cancelled - Patient discharged Performed By: #### L 500.2500, L100.0100 ####[facility] [address] [place], [address] Potassium Normal 3.3-5.1 [facility] Comment on above: Result Comment: Canc elled via OM: Order cancelled - Patient discharged Performed By: #### L 500.2500, L100.0100 ####[facility] [address] [place], [address] Basic Metabolic Profile (BMP) Normal 133-145 [facility] Comment on above: Result Comment: Canc elled via OM: Order cancelled - Patient discharged Performed By: #### L 500.2500, L100.0100 ####[facility] [address] [place], [address] BUN/CRE 23.0 RATIO High 10-20 [facility] Comment on above: Performed By: #### L 100.0500, L500.2500 ####[facility] [address] [place], [address] Calcium [Mass/Vol] 10.0 mg/dL Normal 7.6-11.0 [facility] Comment on above: Performed By: #### L 100.0500, L500.2500 ####[facility] [address] [place], [address] Chloride [Moles/Vol] 104 mmol/L Normal 98-108 [facility] Comment on above: Performed By: #### L 100.0500, L500.2500 ####[facility] [address] [place], [address] CO2 [Moles/Vol] 15.5 mmol/L Low 21.0-32.0 [facility] Comment on above: Performed By: #### L 100.0500, L500.2500 ####[facility] [address] [place], [address] Creatinine [Mass/Vol] 2.27 mg/dL High 0.70-1.20 [facility] Comment on above: Performed By: #### L 100.0500, L500.2500 ####[facility] [address] [place], [address] ECRCL 23.85 ml/min Low 50-250 [facility] Comment on above: Performed By: #### L 100.0500, L500.2500 ####[facility] [address] [place], [address] GAP 14 Normal 5-15 [facility] Comment on above: Performed By: #### L 100.0500, L500.2500 ####[facility] [address] [place], [address] GFR/1.73 sq M.predicted among non-blacks MDRD (S/P/Bld) [Vol rate/Area] 29 mL/min/{1.73_m2} Low >60 [facility] Comment on above: Result Comment: mL/m in/1.73m2 CKD-EPI Creatinine Equation (2020) Performed By: #### L 100.0500, L500.2500 ####[facility] [address] [place], [address] Glucose [Mass/Vol] 166 mg/dL High 70-99 [facility] Comment on above: Performed By: #### L 100.0500, L500.2500 ####[facility] [address] [place], [address] Potassium [Moles/Vol] 6.6 mmol/L Invalid Interpretation Code 3.3-5.1 [facility] Comment on above: Result Comment: Crit ical Result(s) Called at:0514 by: JESSICA DEWEY??Results read back by same. Performed By: #### L 100.0500, L500.2500 ####[facility] [address] [place], [address] Sodium [Moles/Vol] 133 mmol/L Normal 133-145 [facility] Comment on above: Performed By: #### L 100.0500, L500.2500 ####[facility] [address] [place], [address] Urea nitrogen [Mass/Vol] 52 mg/dL High 4-19 [facility] Comment on above: Performed By: #### L 100.0500, L500.2500 ####[facility] [address] [place], [address] Bedside Glucoseon 01-04-2025 FINGERSTICK GLU 229 mg/dL High 74-106 [facility] Comment on above: Result Comment: ROSA GEMENT OF PATIENT CARE PER NURSING PROTOCOL Performed By: #### L 501.080 ####[facility] [address] [place], [address] FINGERSTICK GLU 140 mg/dL High 74-106 [facility] Comment on above: Result Comment: ROSA GEMENT OF PATIENT CARE PER NURSING PROTOCOL Performed By: #### L 501.080 ####[facility] [address] [place], [address] FINGERSTICK GLU 167 mg/dL High 74-106 [facility] Comment on above: Result Comment: ROSA GEMENT OF PATIENT CARE PER NURSING PROTOCOL Performed By: #### L 501.080 ####[facility] [address] [place], [address] FINGERSTICK GLU 212 mg/dL High 74-106 [facility] Comment on above: Result Comment: ROSA GEMENT OF PATIENT CARE PER NURSING PROTOCOL Performed By: #### L 501.080 ####[facility] [address] [place], [address] FINGERSTICK GLU 157 mg/dL High 74-106 [facility] Comment on above: Result Comment: ROSA LAWRENCE OF PATIENT CARE PER NURSING PROTOCOL Performed By: #### L 501.080 ####[facility] [address] [place], [address] CBC W/Diff, Automatedon - Absolute Neut Normal 2.0-7.7 [facility] Comment on above: Result Comment: Canc elled via OM: Order cancelled - Patient discharged Performed By: #### L 500.2500, L100.0100 ####[facility] [address] [place], [address] HCT Normal 40-54 [facility] Comment on above: Result Comment: Canc elled via OM: Order cancelled - Patient discharged Performed By: #### L 500.2500, L100.0100 ####[facility] [address] [place], [address] HGB Normal 13.0-16.5 [facility] Comment on above: Result Comment: Canc elled via OM: Order cancelled - Patient discharged Performed By: #### L 500.2500, L100.0100 ####[facility] [address] [place], [address] MCH Normal 27.0-32.0 [facility] Comment on above: Result Comment: Canc elled via OM: Order cancelled - Patient discharged Performed By: #### L 500.2500, L100.0100 ####[facility] [address] [place], [address] MCHC Normal 32-36 [facility] Comment on above: Result Comment: Canc elled via OM: Order cancelled - Patient discharged Performed By: #### L 500.2500, L100.0100 ####[facility] [address] [place], [address] MCV Normal 80-94 [facility] Comment on above: Result Comment: Canc elled via OM: Order cancelled - Patient discharged Performed By: #### L 500.2500, L100.0100 ####[facility] [address] [place], [address] NEUT% Normal 47-70 [facility] Comment on above: Result Comment: Canc elled via OM: Order cancelled - Patient discharged Performed By: #### L 500.2500, L100.0100 ####[facility] [address] [place], [address] PLT Normal 150-450 [facility] Comment on above: Result Comment: Canc elled via OM: Order cancelled - Patient discharged Performed By: #### L 500.2500, L100.0100 ####[facility] [address] [place], [address] RBC Normal 4.6-6.2 [facility] Comment on above: Result Comment: Canc elled via OM: Order cancelled - Patient discharged Performed By: #### L 500.2500, L100.0100 ####[facility] [address] [place], [address] RDW CV Normal 11.6-14.6 [facility] Comment on above: Result Comment: Canc elled via OM: Order cancelled - Patient discharged Performed By: #### L 500.2500, L100.0100 ####[facility] [address] [place], [address] RDW SD Normal 35.1-43.9 [facility] Comment on above: Result Comment: Canc elled via OM: Order cancelled - Patient discharged Performed By: #### L 500.2500, L100.0100 ####[facility] [address] [place], [address] WBC Normal 4.4-11.0 [facility] Comment on above: Result Comment: Canc elled via OM: Order cancelled - Patient discharged Performed By: #### L 500.2500, L100.0100 ####[facility] [address] [place], [address] CBC-Complete Blood Cnt No Di ffon 01-04-2025 Erythrocyte distribution width (RBC) [Ratio] 14.7 % High 11.6-14.6 [facility] Comment on above: Performed By: #### L 100.0500, L500.2500 ####[facility] [address] [place], [address] Hematocrit (Bld) [Volume fraction] 32.0 % Low 40-54 [facility] Comment on above: Performed By: #### L 100.0500, L500.2500 ####[facility] [address] [place], [address] Hemoglobin (Bld) [Mass/Vol] 10.4 g/dL Low 13.0-16.5 [facility] Comment on above: Performed By: #### L 100.0500, L500.2500 ####[facility] [address] [place], [address] MCH (RBC) [Entitic mass] 30.1 pg Normal 27.0-32.0 [facility] Comment on above: Performed By: #### L 100.0500, L500.2500 ####[facility] [address] [place], [address] MCHC (RBC) [Mass/Vol] 32.5 g/dL Normal 32-36 [facility] Comment on above: Performed By: #### L 100.0500, L500.2500 ####[facility] [address] [place], [address] MCV (RBC) [Entitic vol] 92.5 fL Normal 80-94 [facility] Comment on above: Performed By: #### L 100.0500, L500.2500 ####[facility] [address] [place], [address] Platelet mean volume (Bld) [Entitic vol] 10.2 fL Normal 6.2-12.0 [facility] Comment on above: Performed By: #### L 100.0500, L500.2500 ####[facility] [address] [place], [address] Platelets (Bld) [#/Vol] 458 10*3/uL High 150-450 [facility] Comment on above: Performed By: #### L 100.0500, L500.2500 ####[facility] [address] [place], [address] RBC (Bld) [#/Vol] 3.46 10*6/uL Low 4.6-6.2 [facility] Comment on above: Performed By: #### L 100.0500, L500.2500 ####[facility] [address] [place], [address] RDW SD 49.1 fl High 35.1-43.9 [facility] Comment on above: Performed By: #### L 100.0500, L500.2500 ####[facility] [address] [place], [address] WBC (Bld) [#/Vol] 8.7 10*3/uL Normal 4.4-11.0 [facility] Comment on above: Performed By: #### L 100.0500, L500.2500 ####[facility] [address] [place], [address] Electrocardiogram reportOrde red By: Zahira Ruggiero on 01-04-2025 EKG study [facility] Cardiovascular Services [address] [place] [address] 12 Lead EKG 01/03/25 1744 MR#: [id number] Acct: [id number] Name: JOAO BARNETT Rep #:[id number] : 1945 79 From: Zahira roberson MD Attending Dr: Dr. Jeremy Faith DO Status: ADM IN Ordering Dr: Jeremy Faith DO Da te: 01/03/25 Location: MS2 Sex: M C Admitted: 01/03/25 Test Reason : Blood Pressure : */* mmHG Vent. Rate : 87 BPM Atrial Rate : 87 BPM P-R Int : 158 ms QRS Dur : 136 ms QT Int : 382 ms P-R-T Axes : 57 -58 106 degrees QTcB Int : 459 ms Poor data quality, interpretation may be adversely affected Normal sinus rhythm Left axis deviation Left bundle branch block Abnormal ECG When compared with ECG of 03-Jan-2025 08:54, MANUAL COMPARISON REQUIRED DATA IS UNCONFIRMED Confirmed by Zahira Ruggiero ([id number]), story editor EILEEN ABDULLAHI ([id number]) on 51:17:51 PM Referred By: Confirmed By: Zahira Ruggiero 01/04/25 1317 Date _ Zahira Ruggiero MD CC: [employer]ER-Dick Coronado; Dr. Jeremy Faith, DO ~ Signed [facility] Other Phone: EKG study [facility] Cardiovascular Services [address] [place] [address] 12 Lead EKG 01/03/25 0854 MR#: [id number] Acct: [id number] Name: JOAO BARNETT Rep #:[id number] : 1945 79 From: Zahira roberson MD Attending Dr: Dr. Jeremy Faith, DO Status: ADM IN Ordering Dr: Wayne Madsen MD Date: 06/19 Location: MS2 Sex: M C Admitted: 01/03/25 Test Reason : high K Blood Pressure : */* mmHG Vent. Rate : 98 BPM Atrial Rate : 98 BPM P-R Int : 162 ms QRS Dur : 150 ms QT Int : 376 ms P-R-T Axes : 58 -43 107 degrees QTcB Int : 480 ms Normal sinus rhythm Left axis deviation Left bundle branch block Abnormal ECG Confirmed by Zahira Ruggiero ([id number]), story editor EILEEN ABDULLAHI ([id number]) on 56:53:53 AM Referred By: Confirmed By: Zahira Ruggiero 01/04/2553 Date _ Zahira Ruggiero MD CC: [employer] AS[employer]ER-Dick Coronado; Dr. Jeremy Faith DO; Dr. Wayne Madsen MD ~ Signed [facility] Other Phone: Potassiumon 01-04-2025 Potassium [Moles/Vol] 6.0 mmol/L Invalid Interpretation Code 3.3-5.1 [facility] Comment on above: Result Comment: Crit ical Result(s) Called at: by:??Results read back bysame.Critical Result(s) Called at:0042 by: JESSICA KEARNS TO RICHARD??Results read back by same. AMENDED REPORT 01/04/25 0043 K previously reported as: 6.0 *H mmol/LCritical Result(s) Called at: by:??Results read back bysame. Performed By: #### L 501.5600 ####[facility] [address] [place], [address] 12 Lead EKGon 01-03-2025 12 Lead EKG Normal [facility] Abdomen/Pelvis without Conto n 01-03-2025 Abdomen/Pelvis without Cont Normal [facility] Absolute lymphocyte countOrd ered By: Arnulfo Londono on 01-03-2025 Lymphocytes Auto (Unsp spec) [#/Vol] 1.81 10*3/uL 0.83-4.51 [facility] Absolute neutrophil countOrd ered By: Arnulfo Londono on 01-03-2025 Neutrophils (Bld) [#/Vol] 4.6 10*3/uL 2.0-7.7 [facility] Anion gap in Serum or Plasma Ordered By: Wayne Madsen on 01-03-2025 Anion gap [Moles/Vol] 13 mmol/L 12-07 [facility] Anion gap in Serum or Plasma Ordered By: Arnulfo Londono on 01-03-2025 Anion gap [Moles/Vol] 12 mmol/L 12-07 [facility] Automated lymphocyte count a s percentage of total leukocytesOrdered By: Arnulfo Londono on 01-03-2025 Lymphocytes/100 WBC Auto (Unsp spec) 23.9 % [facility] BUN/creatinine ratioOrdered By: Wayne Madsen on 01-03-2025 Urea nitrogen/Creatinine [Mass ratio] 23.9 mg/mg High 05-14 [facility] BUN/creatinine ratioOrdered By: Arnulfo Londono on 01-03-2025 Urea nitrogen/Creatinine [Mass ratio] 23.6 mg/mg High 05-14 [facility] Basic Metabolic Profile (BMP )on 01-03-2025 BUN/CRE 23.4 RATIO [place] [address] [facility] Comment on above: Performed By: #### L 500.2500 ####[facility] [address] [facility] [address] Calcium [Mass/Vol] 9.9 mg/dL Normal 7.6-11.0 [facility] Comment on above: Performed By: #### L 500.2500 ####[facility] [address] [place], [address] Chloride [Moles/Vol] 103 mmol/L Normal 98-108 [facility] Comment on above: Performed By: #### L 500.2500 ####[facility] [address] [place], [address] CO2 [Moles/Vol] 15.7 mmol/L Low 21.0-32.0 [facility] Comment on above: Performed By: #### L 500.2500 ####[facility] [address] [place], [address] Creatinine [Mass/Vol] 2.25 mg/dL High 0.70-1.20 [facility] Comment on above: Performed By: #### L 500.2500 ####[facility] [address] [place], [address] ECRCL 24.06 ml/min Low 50-250 [facility] Comment on above: Performed By: #### L 500.2500 ####[facility] [address] [place], [address] GAP 18 High 5-15 [facility] Comment on above: Performed By: #### L 500.2500 ####[facility] [address] [place], [address] GFR/1.73 sq M.predicted among non-blacks MDRD (S/P/Bld) [Vol rate/Area] 29 mL/min/{1.73_m2} Low >60 [facility] Comment on above: Result Comment: mL/m in/1.73m2 CKD-EPI Creatinine Equation (2020) Performed By: #### L 500.2500 ####[facility] [address] [place], [address] Glucose [Mass/Vol] 168 mg/dL High 70-99 [facility] Comment on above: Performed By: #### L 500.2500 ####[facility] [address] [place], [address] Potassium [Moles/Vol] 6.4 mmol/L Invalid Interpretation Code 3.3-5.1 [facility] Comment on above: Result Comment: Crit ical Result(s) Called at: 2355 by:??JESSICA LABOYN TO MARISABEL Results read back by same. Performed By: #### L 500.2500 ####[facility] [address] [place], [address] Sodium [Moles/Vol] 136 mmol/L Normal 133-145 [facility] Comment on above: Performed By: #### L 500.2500 ####[facility] [address] [place], [address] Urea nitrogen [Mass/Vol] 53 mg/dL High 4-19 [facility] Comment on above: Performed By: #### L 500.2500 ####[facility] [address] [place], [address] BUN/CRE 23.9 RATIO High 10-20 [facility] Comment on above: Performed By: #### L 500.2500 ####[facility] [address] [place], [address] Calcium [Mass/Vol] 10.6 mg/dL Normal 7.6-11.0 [facility] Comment on above: Performed By: #### L 500.2500 ####[facility] [address] [place], [address] Chloride [Moles/Vol] 103 mmol/L Normal 98-108 [facility] Comment on above: Performed By: #### L 500.2500 ####[facility] [address] [place], [address] CO2 [Moles/Vol] 18.6 mmol/L Low 21.0-32.0 [facility] Comment on above: Performed By: #### L 500.2500 ####[facility] [address] [place], [address] Creatinine [Mass/Vol] 2.19 mg/dL High 0.70-1.20 [facility] Comment on above: Performed By: #### L 500.2500 ####[facility] [address] [place], [address] ECRCL 24.72 ml/min Low 50-250 [facility] Comment on above: Performed By: #### L 500.2500 ####[facility] [address] [place], [address] GAP 13 Normal 5-15 [facility] Comment on above: Performed By: #### L 500.2500 ####[facility] [address] [place], [address] GFR/1.73 sq M.predicted among non-blacks MDRD (S/P/Bld) [Vol rate/Area] 30 mL/min/{1.73_m2} Low >60 [facility] Comment on above: Result Comment: mL/m in/1.73m2 CKD-EPI Creatinine Equation (2020) Performed By: #### L 500.2500 ####[facility] [address] [place], [address] Glucose [Mass/Vol] 177 mg/dL High 70-99 [facility] Comment on above: Performed By: #### L 500.2500 ####[facility] [address] [place], [address] Potassium [Moles/Vol] 5.9 mmol/L High 3.3-5.1 [facility] Comment on above: Performed By: #### L 500.2500 ####[facility] [address] [place], [address] Sodium [Moles/Vol] 135 mmol/L Normal 133-145 [facility] Comment on above: Performed By: #### L 500.2500 ####[facility] [address] [place], [address] Urea nitrogen [Mass/Vol] 52 mg/dL High 4-19 [facility] Comment on above: Performed By: #### L 500.2500 ####[facility] [address] [place], [address] BUN/CRE 24.1 RATIO High 10-20 [facility] Comment on above: Performed By: #### L 500.2500 ####[facility] [address] [place], [address] Calcium [Mass/Vol] 10.5 mg/dL Normal 7.6-11.0 [facility] Comment on above: Performed By: #### L 500.2500 ####[facility] [address] [place], [address] Chloride [Moles/Vol] 106 mmol/L Normal 98-108 [facility] Comment on above: Performed By: #### L 500.2500 ####[facility] [address] [place], [address] CO2 [Moles/Vol] 14.6 mmol/L Low 21.0-32.0 [facility] Comment on above: Performed By: #### L 500.2500 ####[facility] [address] [place], [address] Creatinine [Mass/Vol] 2.20 mg/dL High 0.70-1.20 [facility] Comment on above: Performed By: #### L 500.2500 ####[facility] [address] [place], [address] ECRCL 24.61 ml/min Low 50-250 [facility] Comment on above: Performed By: #### L 500.2500 ####[facility] [address] [place], [address] GAP 15 Normal 5-15 [facility] Comment on above: Performed By: #### L 500.2500 ####[facility] [address] [place], [address] GFR/1.73 sq M.predicted among non-blacks MDRD (S/P/Bld) [Vol rate/Area] 30 mL/min/{1.73_m2} Low >60 [facility] Comment on above: Result Comment: mL/m in/1.73m2 CKD-EPI Creatinine Equation (2020) Performed By: #### L 500.2500 ####[facility] [address] [place], [address] Glucose [Mass/Vol] 190 mg/dL High 70-99 [facility] Comment on above: Performed By: #### L 500.2500 ####[facility] [address] [place], [address] Potassium [Moles/Vol] 6.2 mmol/L Invalid Interpretation Code 3.3-5.1 [facility] Comment on above: Result Comment: Hemo lysis present, Results??could be affected.??Critical Result(s) Called at: 1656 by: GERMAIN WEINER TO BRETT ??Results read back by same. Performed By: #### L 500.2500 ####[facility] [address] [place], [address] Sodium [Moles/Vol] 135 mmol/L Normal 133-145 [facility] Comment on above: Performed By: #### L 500.2500 ####[facility] [address] [place], [address] Urea nitrogen [Mass/Vol] 53 mg/dL High 4-19 [facility] Comment on above: Performed By: #### L 500.2500 ####[facility] [address] [place], [address] BUN Normal 4-19 [facility] Comment on above: Result Comment: Canc elled via OM: Order cancelled - Patient discharged Performed By: #### L 500.2500 ####[facility] [address] [place], [address] BUN/CRE Normal 10-20 [facility] Comment on above: Result Comment: Canc elled via OM: Order cancelled - Patient discharged Performed By: #### L 500.2500 ####[facility] [address] [place], [address] Calcium Normal 7.6-11.0 [facility] Comment on above: Result Comment: Canc elled via OM: Order cancelled - Patient discharged Performed By: #### L 500.2500 ####[facility] [address] [place], [address] CL Normal 98-108 [facility] Comment on above: Result Comment: Canc elled via OM: Order cancelled - Patient discharged Performed By: #### L 500.2500 ####[facility] [address] [place], [address] CO2 Normal 21.0-32.0 [facility] Comment on above: Result Comment: Canc elled via OM: Order cancelled - Patient discharged Performed By: #### L 500.2500 ####[facility] [address] [place], [address] CREAT,SERUM Normal 0.70-1.20 [facility] Comment on above: Result Comment: Canc elled via OM: Order cancelled - Patient discharged Performed By: #### L 500.2500 ####[facility] [address] [place], [address] eGFR Normal >60 [facility] Comment on above: Result Comment: Canc elled via OM: Order cancelled - Patient discharged Performed By: #### L 500.2500 ####[facility] [address] [place], [address] GAP Normal 5-15 [facility] Comment on above: Result Comment: Canc elled via OM: Order cancelled - Patient discharged Performed By: #### L 500.2500 ####[facility] [address] [place], [address] GLU Normal 70-99 [facility] Comment on above: Result Comment: Canc elled via OM: Order cancelled - Patient discharged Performed By: #### L 500.2500 ####[facility] [address] [place], [address] Potassium Normal 3.3-5.1 [facility] Comment on above: Result Comment: Canc elled via OM: Order cancelled - Patient discharged Performed By: #### L 500.2500 ####[facility] [address] [place], [address] Basic Metabolic Profile (BMP) Normal 133-145 [facility] Comment on above: Result Comment: Canc elled via OM: Order cancelled - Patient discharged Performed By: #### L 500.2500 ####[facility] [address] [place], [address] Potassium [Moles/Vol] 7.4 mmol/L Invalid Interpretation Code 3.3-5.1 [facility] Comment on above: Result Comment: Hemo lysis present, Results??could be affected.??Critical Result(s) Called at: 01/03/2025-10:28 by: Bryanna.??Results read back by same. Performed By: #### L 500.2500 ####[facility] [address] [place], [address] Potassium [Moles/Vol] 7.4 mmol/L Invalid Interpretation Code 3.3-5.1 [facility] Comment on above: Result Comment: Crit ical Result(s) Called at: by:??Results read back bysame. AMENDED REPORT 01/03/25 0735 K previously reported as: 7.3 *H mmol/LCritical Result(s) Called at: by:??Results read back bysame. Performed By: #### L 500.2500, L100.0100 ####[facility] [address] [place], [address] Basophil percentageOrdered B y: Arnulfo Bry on 01-03-2025 Basophils/100 WBC (Bld) 1.5 % High 0-1 [facility] Bedside Glucoseon 01-03-2025 FINGERSTICK GLU 151 mg/dL High 74-106 [facility] Comment on above: Result Comment: ROSA FERRISENT OF PATIENT CARE PER NURSING PROTOCOL Performed By: #### L 501.080 ####[facility] [address] [place], [address] FINGERSTICK GLU 175 mg/dL High 74-106 [facility] Comment on above: Result Comment: ROSA GEMENT OF PATIENT CARE PER NURSING PROTOCOL Performed By: #### L 501.080 ####[facility] [address] [place], [address] FINGERSTICK GLU 230 mg/dL High [address] [facility] Comment on above: Result Comment: ROSA GEMENT OF PATIENT CARE PER NURSING PROTOCOL Performed By: #### L 501.080 ####[facility] [address] [place], [address] FINGERSTICK GLU 223 mg/dL High -106 [facility] Comment on above: Result Comment: ROSA GEMENT OF PATIENT CARE PER NURSING PROTOCOL Performed By: #### L 501.080 ####[facility] [address] [place], [address] FINGERSTICK GLU 195 mg/dL High [address] [place] [address] Comment on above: Result Comment: ROSA GEMENT OF PATIENT CARE PER NURSING PROTOCOL Performed By: #### L 501.080 ####[facility] [address] [place], [address] CBC W/Diff, Automatedon 06 Absolute Lymph 1.81 X10 3/uL Normal 0.83-4.51 [facility] Comment on above: Performed By: #### L 500.2500, L100.0100 ####[facility] [address] [place], [address] Absolute Neut 4.6 X10 3/uL Normal 2.0-7.7 [facility] Comment on above: Performed By: #### L 500.2500, L100.0100 ####[facility] [address] [place], [address] Basophils/100 WBC (Bld) 1.5 % High 0-1 [facility] Comment on above: Performed By: #### L 500.2500, L100.0100 ####[facility] [address] [place], [address] Eosinophils/100 WBC (Bld) 4.5 % Normal 0-5 [facility] Comment on above: Performed By: #### L 500.2500, L100.0100 ####[facility] [address] [place], [address] Erythrocyte distribution width (RBC) [Ratio] 14.5 % Normal 11.6-14.6 [facility] Comment on above: Performed By: #### L 500.2500, L100.0100 ####[facility] [address] [place], [address] Hematocrit (Bld) [Volume fraction] 30.5 % Low 40-54 [facility] Comment on above: Performed By: #### L 500.2500, L100.0100 ####[facility] [address] [place], [address] Hemoglobin (Bld) [Mass/Vol] 10.0 g/dL Low 13.0-16.5 [facility] Comment on above: Performed By: #### L 500.2500, L100.0100 ####[facility] [address] [place], [address] IG% 0.700 Normal 0.0-0.9 [facility] Comment on above: Result Comment: IG% - Immature Granulocytes (promyelocytes, myelocytes andmetamyelocytes) > 1% indicates that a LEFT SHIFT is Present. Performed By: #### L 500.2500, L100.0100 ####[facility] [address] [place], [address] Lymphocytes/100 WBC (Bld) 23.9 % Normal 19-41 [facility] Comment on above: Performed By: #### L 500.2500, L100.0100 ####[facility] [address] [place], [address] MCH (RBC) [Entitic mass] 29.6 pg Normal 27.0-32.0 [facility] Comment on above: Performed By: #### L 500.2500, L100.0100 ####[facility] [address] [place], [address] MCHC (RBC) [Mass/Vol] 32.8 g/dL Normal 32-36 [facility] Comment on above: Performed By: #### L 500.2500, L100.0100 ####[facility] [address] [place], [address] MCV (RBC) [Entitic vol] 90.2 fL Normal 80-94 [facility] Comment on above: Performed By: #### L 500.2500, L100.0100 ####[facility] [address] [place], [address] Monocytes/100 WBC (Bld) 9.1 % Normal 0-10 [facility] Comment on above: Performed By: #### L 500.2500, L100.0100 ####[facility] [address] [place], [address] Neutrophils/100 WBC (Bld) 60.3 % Normal 47-70 [facility] Comment on above: Performed By: #### L 500.2500, L100.0100 ####[facility] [address] [place], [address] Nucleated RBC (Bld) [#/Vol] 0 10*3/uL Normal 0-5 [facility] Comment on above: Performed By: #### L 500.2500, L100.0100 ####[facility] [address] [place], [address] Platelet mean volume (Bld) [Entitic vol] 10.4 fL Normal 6.2-12.0 [facility] Comment on above: Performed By: #### L 500.2500, L100.0100 ####[facility] [address] [place], [address] Platelets (Bld) [#/Vol] 509 10*3/uL High 150-450 [facility] Comment on above: Performed By: #### L 500.2500, L100.0100 ####[facility] [address] [place], [address] RBC (Bld) [#/Vol] 3.38 10*6/uL Low 4.6-6.2 [facility] Comment on above: Performed By: #### L 500.2500, L100.0100 ####[facility] [address] [place], [address] RDW SD 47.4 fl High 35.1-43.9 [facility] Comment on above: Performed By: #### L 500.2500, L100.0100 ####[facility] [address] [place], [address] WBC (Bld) [#/Vol] 7.6 10*3/uL Normal 4.4-11.0 [facility] Comment on above: Performed By: #### L 500.2500, L100.0100 ####[facility] [address] [place], [address] Carbon dioxide, total [Moles /volume] in Central venous bloodOrdered By: Wayne Madsen on 01-03-2025 CO2 [Moles/Vol] 11.5 mmol/L Low 21.0-32.0 [facility] Carbon dioxide, total [Moles /volume] in Central venous bloodOrdered By: Arnulfo Londono on 01-03-2025 CO2 [Moles/Vol] 14.7 mmol/L Low 21.0-32.0 [facility] Chest 1 View (Portable)on Chest 1 View (Portable) Normal [facility] Chloride assayOrdered By: Balta Madsen on 01-03-2025 Chloride [Moles/Vol] 106 mmol/L 98-108 [facility] Chloride assayOrdered By: Cas Londono on 01-03-2025 Chloride [Moles/Vol] 106 mmol/L 98-108 [facility] Emergency Department Summary on 01-03-2025 Emergency Department Summary Normal [facility] Eosinophil percentageOrdered By: Arnulfo Londono on 01-03-2025 Eosinophils/100 WBC (Bld) 4.5 % 0-5 [facility] Erythrocyte distribution wid th ratioOrdered By: Arnulfo Londono on 01-03-2025 Erythrocyte distribution width (RBC) [Ratio] 14.5 % 11.6-14.6 [facility] Erythrocyte distribution wid th standard deviationOrdered By: Arnulfo Londono on 01-03-2025 Erythrocyte distribution width (RBC) [Ratio] 47.4 fl High 35.1-43.9 [facility] Glomerular filtration rate ( GFR) estimation/1.73 sq m using serum, plasma, or whole bOrdered By: Wayne Madsen on 01-03-2025 GFR/1.73 sq M.predicted among non-blacks MDRD (S/P/Bld) [Vol rate/Area] 27 mL/min/{1.73_m2} Low >60 [facility] Comment on above: mL/min/1.73m2 CKD-EP I Creatinine Equation (2020) Glomerular filtration rate ( GFR) estimation/1.73 sq m using serum, plasma, or whole bOrdered By: Arnulfo Londono on 01-03-2025 GFR/1.73 sq M.predicted among non-blacks MDRD (S/P/Bld) [Vol rate/Area] 28 mL/min/{1.73_m2} Low >60 [facility] Comment on above: mL/min/1.73m2 CKD-EP I Creatinine Equation (2020) [facility] deOrdered By: Wayne Madsen on 01-03-2025 Glucose [Mass/Vol] 230 mg/dL High 74-106 [facility] Comment on above: MANAGEMENT OF PATIEN T CARE PER NURSING PROTOCOL Gl[facility] at [facility] deOrdered By: Arnulfo Londono on 01-03-2025 Glucose [Mass/Vol] 223 mg/dL High 74-106 [facility] Comment on above: MANAGEMENT OF PATIEN T CARE PER NURSING PROTOCOL H AND P Exam - [facility] 01-03-2025 H&P Exam - Hospitalist Normal [facility] Hematocrit Auto (Bld) [Volum e fraction]Ordered By: Arnulfo Londono on 01-03-2025 Hematocrit (Bld) [Volume fraction] 30.5 % Low 40-54 [facility] Hemoglobin measurementOrdere d By: Arnulfo Londono on 01-03-2025 Hemoglobin (Bld) [Mass/Vol] 10.0 g/dL Low 13.0-16.5 [facility] Immature granulocytes/100 WB C Auto (Bld)Ordered By: Arnulfo Londono on 01-03-2025 Immature granulocytes/100 WBC (Bld) 0.700 % 0.0-0.9 [facility] Comment on above: IG% - Immature Granu locytes (promyelocytes, myelocytes and metamyelocytes) > 1% indicates that a LEFT SHIFT is Present. Lactic Acidon 01-03-2025 Lactate [Moles/Vol] 1.7 mmol/L Normal 0.0-2.0 [facility] Comment on above: Order Comment: Y Performed By: #### L 503.6005 ####[facility] [address] [place], [place], [address] Lactic acid measurementOrder ed By: Jeremy Faith on 01-03-2025 Lactate [Moles/Vol] 1.7 mmol/L 0.0-2.0 [facility] MCV (mean corpuscular volume ) determinationOrdered By: Arnulfo Londono on 01-03-2025 MCV (RBC) [Entitic vol] 90.2 fL 80-94 [facility] Mean corpuscular hemoglobin (MCH) determinationOrdered By: Arnulfo Londono on 01-03-2025 MCH (RBC) [Entitic mass] 29.6 pg 27.0-32.0 [facility] Mean corpuscular hemoglobin concentration (MCHC) determinationOrdered By: Arnulfo Londono on 01-03-2025 MCHC (RBC) [Mass/Vol] 32.8 g/dL 32-36 [facility] Mean platelet volume determi nationOrdered By: Arnulfo Londono on 01-03-2025 Platelet mean volume (Bld) [Entitic vol] 10.4 fL 6.2-12.0 [facility] Monocyte percentageOrdered B y: Arnulfo Morrisok on 01-03-2025 Monocytes/100 WBC (Bld) 9.1 % 0-10 [facility] Neutrophil percentageOrdered By: Arnulfo Londono on 01-03-2025 Neutrophils/100 WBC (Bld) 60.3 % 47-70 [facility] Nucleated red blood cell per centageOrdered By: Arnulfo Londono on 01-03-2025 Nucleated RBC/100 WBC (Bld) [Ratio] 0 % 0-5 [facility] Platelet countOrdered By: Cas Londono on 01-03-2025 Platelets (Bld) [#/Vol] 509 10*3/uL High 150-450 [facility] Potassium measurement (mass/ volume)Ordered By: Wayne Madsen on 01-03-2025 Potassium (Unsp spec) [Mass/Vol] 6.0 mmol/L High 3.3-5.1 [facility] Comment on above: Critical Result(s) C alled at: by: Results read back by same. Potassium measurement (mass/ volume)Ordered By: Arnulfo Londono on 01-03-2025 Potassium (Unsp spec) [Mass/Vol] 7.4 mmol/L High 3.3-5.1 [facility] Comment on above: Critical Result(s) C alled at: by: Results read back by same.Previous reported result: 7.3 mmol/LEdited by: SILVANO on 01/03/25:0735 AMENDED REPORT 01/03/25 0735 K previously reported as: 7.3 *H mmol/L Critical Result(s) Called at: by: Results read back by same. RBC Auto (Bld) [#/Vol]Ordere d By: Arnulfo Londono on 01-03-2025 RBC (Bld) [#/Vol] 3.38 10*6/uL Low 4.6-6.2 [facility] Serum creatinine measurement (mass/volume)Ordered By: Wayne Madsen on 01-03-2025 Creatinine [Mass/Vol] 2.41 mg/dL High 0.70-1.20 [facility] Serum creatinine measurement (mass/volume)Ordered By: Arnulfo Londono on 01-03-2025 Creatinine [Mass/Vol] 2.31 mg/dL High 0.70-1.20 [facility] Serum glucose measurement (m ass/volume)Ordered By: Wayne Madsen on 01-03-2025 Glucose [Mass/Vol] 273 mg/dL High [facility] Serum glucose measurement (m ass/volume)Ordered By: Arnulfo Londono on 01-03-2025 Glucose [Mass/Vol] 198 mg/dL High [facility] Serum or plasma calcium ivory urement (mass/volume)Ordered By: Wayne Madsen on 01-03-2025 Calcium [Mass/Vol] 9.5 mg/dL 7.6-11.0 [facility] Serum or plasma calcium ivory urement (mass/volume)Ordered By: Arnulfo Londono on 01-03-2025 Calcium [Mass/Vol] 10.0 mg/dL 7.6-11.0 [facility] Serum or plasma urea nitroge n measurement (mass/volume)Ordered By: Wayne Madsen on 01-03-2025 Urea nitrogen [Mass/Vol] 58 mg/dL High 11-11 [facility] Serum or plasma urea nitroge n measurement (mass/volume)Ordered By: Arnulfo Londono on 01-03-2025 Urea nitrogen [Mass/Vol] 55 mg/dL High 11-11 [facility] Sodium levelOrdered By: Wayne Madsen on 01-03-2025 Sodium [Moles/Vol] 130 mmol/L Low 133-145 [facility] Sodium levelOrdered By: Arnulfo Londono on 01-03-2025 Sodium [Moles/Vol] 133 mmol/L 133-145 [facility] White blood cell (WBC) count Ordered By: Arnulfo Londono on 01-03-2025 WBC (Bld) [#/Vol] 7.6 10*3/uL 4.4-11.0 [facility] Basic Metabolic Profile (BMP )on 01-02-2025 BUN/CRE 24.1 RATIO High 05-14 [facility] Comment on above: Performed By: #### L 500.2500 ####[facility] [address] [place], [address] Calcium [Mass/Vol] 9.7 mg/dL Normal 7.6-11.0 [facility] Comment on above: Performed By: #### L 500.2500 ####[facility] [address] [place], [address] Chloride [Moles/Vol] 105 mmol/L Normal 98-108 [facility] Comment on above: Performed By: #### L 500.2500 ####[facility] [address] [place], [address] CO2 [Moles/Vol] 16.1 mmol/L Low 21.0-32.0 [facility] Comment on above: Performed By: #### L 500.2500 ####[facility] [address] [place], [address] Creatinine [Mass/Vol] 2.18 mg/dL High 0.70-1.20 [facility] Comment on above: Performed By: #### L 500.2500 ####[facility] [address] [place], [address] ECRCL 24.94 ml/min Low 50-250 [facility] Comment on above: Performed By: #### L 500.2500 ####[facility] [address] [place], [address] GAP 12 Normal 5-15 [facility] Comment on above: Performed By: #### L 500.2500 ####[facility] [address] [place], [address] GFR/1.73 sq M.predicted among non-blacks MDRD (S/P/Bld) [Vol rate/Area] 30 mL/min/{1.73_m2} Low >60 [facility] Comment on above: Result Comment: mL/m in/1.73m2 CKD-EPI Creatinine Equation (2020) Performed By: #### L 500.2500 ####[facility] [address] [place], [address] Glucose [Mass/Vol] 196 mg/dL High 70-99 [facility] Comment on above: Performed By: #### L 500.2500 ####[facility] [address] [place], [address] Potassium [Moles/Vol] 6.6 mmol/L Invalid Interpretation Code 3.3-5.1 [facility] Comment on above: Result Comment: Crit ical Result(s) Called BMATHYS at: 2000 by:EDDIE??Results read back by same. Performed By: #### L 500.2500 ####[facility] [address] [place], [address] Sodium [Moles/Vol] 133 mmol/L Normal 133-145 [facility] Comment on above: Performed By: #### L 500.2500 ####[facility] [address] [place], [address] Urea nitrogen [Mass/Vol] 53 mg/dL High 4-19 [facility] Comment on above: Performed By: #### L 500.2500 ####[facility] [address] [place], [address] Bedside Glucoseon 01-02-2025 FINGERSTICK GLU 178 mg/dL High 74-106 [facility] Comment on above: Result Comment: ROSA GEMENT OF PATIENT CARE PER NURSING PROTOCOL Performed By: #### L 501.080 ####[facility] [address] [place], [address] FINGERSTICK GLU 164 mg/dL High 74-106 [facility] Comment on above: Result Comment: ROSA GEMENT OF PATIENT CARE PER NURSING PROTOCOL Performed By: #### L 501.080 ####[facility] [address] [place], [address] FINGERSTICK GLU 164 mg/dL High 74-106 [facility] Comment on above: Result Comment: ROSA GEMENT OF PATIENT CARE PER NURSING PROTOCOL Performed By: #### L 501.080 ####[facility] [address] [place], [address] FINGERSTICK GLU 156 mg/dL High 74-106 [facility] Comment on above: Result Comment: ROSA GEMENT OF PATIENT CARE PER NURSING PROTOCOL Performed By: #### L 501.080 ####[facility] [address] [place], [address] Bedside Glucoseon 01-01-2025 FINGERSTICK GLU 172 mg/dL High [address] [place] [address] Comment on above: Result Comment: ROSA GEMENT OF PATIENT CARE PER NURSING PROTOCOL Performed By: #### L 501.080 ####[facility] [address] [place], [address] FINGERSTICK GLU 162 mg/dL High [address] [place] [address] Comment on above: Result Comment: ROSA GEMENT OF PATIENT CARE PER NURSING PROTOCOL Performed By: #### L 501.080 ####[facility] [address] [place], [address] FINGERSTICK GLU 189 mg/dL High -106 [facility] Comment on above: Result Comment: ROSA GEMENT OF PATIENT CARE PER NURSING PROTOCOL Performed By: #### L 501.080 ####[facility] [address] [place], [address] FINGERSTICK GLU 166 mg/dL High [address] [place] [address] Comment on above: Result Comment: ROSA GEMENT OF PATIENT CARE PER NURSING PROTOCOL Performed By: #### L 501.080 ####[facility] [address] [place], [address] CBC-Complete Blood Cnt No Di ffon 01-01-2025 Erythrocyte distribution width (RBC) [Ratio] 14.1 % Normal 11.6-14.6 [facility] Comment on above: Performed By: #### L 100.0500 ####[facility] [address] [place], [address] Hematocrit (Bld) [Volume fraction] 25.6 % Low 40-54 [facility] Comment on above: Performed By: #### L 100.0500 ####[facility] [address] [place], [address] Hemoglobin (Bld) [Mass/Vol] 8.4 g/dL Low 13.0-16.5 [facility] Comment on above: Performed By: #### L 100.0500 ####[facility] [address] [place], [address] MCH (RBC) [Entitic mass] 29.7 pg Normal 27.0-32.0 [facility] Comment on above: Performed By: #### L 100.0500 ####[facility] [address] [place], [address] MCHC (RBC) [Mass/Vol] 32.8 g/dL Normal 32-36 [facility] Comment on above: Performed By: #### L 100.0500 ####[facility] [address] [place], [address] MCV (RBC) [Entitic vol] 90.5 fL Normal 80-94 [facility] Comment on above: Performed By: #### L 100.0500 ####[facility] [address] [place], [address] Platelet mean volume (Bld) [Entitic vol] 10.6 fL Normal 6.2-12.0 [facility] Comment on above: Performed By: #### L 100.0500 ####[facility] [address] [place], [address] Platelets (Bld) [#/Vol] 431 10*3/uL Normal 150-450 [facility] Comment on above: Performed By: #### L 100.0500 ####[facility] [address] [place], [address] RBC (Bld) [#/Vol] 2.83 10*6/uL Low 4.6-6.2 [facility] Comment on above: Performed By: #### L 100.0500 ####[facility] [address] [place], [address] RDW SD 46.5 fl High 35.1-43.9 [facility] Comment on above: Performed By: #### L 100.0500 ####[facility] [address] [place], [address] WBC (Bld) [#/Vol] 6.8 10*3/uL Normal 4.4-11.0 [facility] Comment on above: Performed By: #### L 100.0500 ####[facility] [address] [place], [address] Bedside Glucoseon 12-31-2024 FINGERSTICK GLU 207 mg/dL High 74-106 [facility] Comment on above: Result Comment: ROSA GEMENT OF PATIENT CARE PER NURSING PROTOCOL Performed By: #### L 501.080 ####[facility] [address] [place], [address] FINGERSTICK GLU 122 mg/dL High 74-106 [facility] Comment on above: Result Comment: ROSA GEMENT OF PATIENT CARE PER NURSING PROTOCOL Performed By: #### L 501.080 ####[facility] [address] [place], [address] FINGERSTICK GLU 138 mg/dL High 74-106 [facility] Comment on above: Result Comment: ROSA GEMENT OF PATIENT CARE PER NURSING PROTOCOL Performed By: #### L 501.080 ####[facility] [address] [place], [address] FINGERSTICK GLU 134 mg/dL High 74-106 [facility] Comment on above: Result Comment: ROSA GEMENT OF PATIENT CARE PER NURSING PROTOCOL Performed By: #### L 501.080 ####[facility] [address] [place], [address] Bedside Glucoseon 12-30-2024 FINGERSTICK GLU 137 mg/dL High [facility]106 [facility] Comment on above: Result Comment: ROSA GEMENT OF PATIENT CARE PER NURSING PROTOCOL Performed By: #### L 501.080 ####[facility] [address] [place], [address] FINGERSTICK GLU 119 mg/dL High [address] [place] [address] Comment on above: Result Comment: ROSA GEMENT OF PATIENT CARE PER NURSING PROTOCOL Performed By: #### L 501.080 ####[facility] [address] [place], [address] FINGERSTICK GLU 158 mg/dL High 74-106 [facility] Comment on above: Result Comment: ROSA GEMENT OF PATIENT CARE PER NURSING PROTOCOL Performed By: #### L 501.080 ####[facility] [address] [place], [address] FINGERSTICK GLU 136 mg/dL High [address] [place] [address] Comment on above: Result Comment: ROSA GEMENT OF PATIENT CARE PER NURSING PROTOCOL Performed By: #### L 501.080 ####[facility] [address] [place], [address] Basic Metabolic Profile (BMP )on 12-29-2024 BUN/CRE 26.2 RATIO High 10-20 [facility] Comment on above: Performed By: #### L 500.2500, L100.0100, L503.6030 ####[facility] [address] [place], [address] Calcium [Mass/Vol] 8.8 mg/dL Normal 7.6-11.0 [facility] Comment on above: Performed By: #### L 500.2500, L100.0100, L503.6030 ####[facility] [address] [place], [address] Chloride [Moles/Vol] 104 mmol/L Normal 98-108 [facility] Comment on above: Performed By: #### L 500.2500, L100.0100, L503.6030 ####[facility] [address] [place], [address] CO2 [Moles/Vol] 17.1 mmol/L Low 21.0-32.0 [facility] Comment on above: Performed By: #### L 500.2500, L100.0100, L503.6030 ####[facility] [address] [place], [address] Creatinine [Mass/Vol] 2.03 mg/dL High 0.70-1.20 [facility] Comment on above: Performed By: #### L 500.2500, L100.0100, L503.6030 ####[facility] [address] [place], [address] GAP 12 Normal 5-15 [facility] Comment on above: Performed By: #### L 500.2500, L100.0100, L503.6030 ####[facility] [address] [place], [address] GFR/1.73 sq M.predicted among non-blacks MDRD (S/P/Bld) [Vol rate/Area] 33 mL/min/{1.73_m2} Low >60 [facility] Comment on above: Result Comment: mL/m in/1.73m2 CKD-EPI Creatinine Equation (2020) Performed By: #### L 500.2500, L100.0100, L503.6030 ####[facility] [address] [place], [address] Glucose [Mass/Vol] 140 mg/dL High 70-99 [facility] Comment on above: Performed By: #### L 500.2500, L100.0100, L503.6030 ####[facility] [address] [place], [address] Potassium [Moles/Vol] 5.0 mmol/L Normal 3.3-5.1 [facility] Comment on above: Performed By: #### L 500.2500, L100.0100, L503.6030 ####[facility] [address] [place], [address] Sodium [Moles/Vol] 133 mmol/L Normal 133-145 [facility] Comment on above: Performed By: #### L 500.2500, L100.0100, L503.6030 ####[facility] [address] [place], [address] Urea nitrogen [Mass/Vol] 53 mg/dL High 4-19 [facility] Comment on above: Performed By: #### L 500.2500, L100.0100, L503.6030 ####[facility] [address] [place], [address] BUN Normal 4-19 [facility] Comment on above: Result Comment: DUP Performed By: #### L 500.2500 ####[facility] [address] [place], [address] BUN/CRE Normal 10-20 [facility] Comment on above: Result Comment: DUP Performed By: #### L 500.2500 ####[facility] [address] [place], [address] Calcium Normal 7.6-11.0 [facility] Comment on above: Result Comment: DUP Performed By: #### L 500.2500 ####[facility] [address] [place], [address] CL Normal 98-108 [facility] Comment on above: Result Comment: DUP Performed By: #### L 500.2500 ####[facility] [address] [place], [address] CO2 Normal 21.0-32.0 [facility] Comment on above: Result Comment: DUP Performed By: #### L 500.2500 ####[facility] [address] [place], [address] CREAT,SERUM Normal 0.70-1.20 [facility] Comment on above: Result Comment: DUP Performed By: #### L 500.2500 ####[facility] [address] [place], [address] eGFR Normal >60 [facility] Comment on above: Result Comment: DUP Performed By: #### L 500.2500 ####[facility] [address] [place], [address] GAP Normal 5-15 [facility] Comment on above: Result Comment: DUP Performed By: #### L 500.2500 ####[facility] [address] [place], [address] GLU Normal 70-99 [facility] Comment on above: Result Comment: DUP Performed By: #### L 500.2500 ####[facility] [address] [place], [address] Potassium Normal 3.3-5.1 [facility] Comment on above: Result Comment: DUP Performed By: #### L 500.2500 ####[facility] [address] [place], [address] Basic Metabolic Profile (BMP) Normal 133-145 [facility] Comment on above: Result Comment: DUP Performed By: #### L 500.2500 ####[facility] [address] [place], [address] Bedside Glucoseon 12-29-2024 FINGERSTICK GLU 224 mg/dL High 74-106 [facility] Comment on above: Result Comment: ROSA GEMENT OF PATIENT CARE PER NURSING PROTOCOL Performed By: #### L 501.080 ####[facility] [address] [place], [address] FINGERSTICK GLU 151 mg/dL High 74-106 [facility] Comment on above: Result Comment: ROSA GEMENT OF PATIENT CARE PER NURSING PROTOCOL Performed By: #### L 501.080 ####[facility] [address] [place], [address] FINGERSTICK GLU 168 mg/dL High 74-106 [facility] Comment on above: Result Comment: ROSA GEMENT OF PATIENT CARE PER NURSING PROTOCOL Performed By: #### L 501.080 ####[facility] [address] [place], [address] FINGERSTICK GLU 138 mg/dL High -106 [facility] Comment on above: Result Comment: ROSA GEMENT OF PATIENT CARE PER NURSING PROTOCOL Performed By: #### L 501.080 ####[facility] [address] [place], [address] CBC W/Diff, Automatedon 06-0 6-5 Absolute Lymph 1.48 X10 3/uL Normal 0.83-4.51 [facility] Comment on above: Performed By: #### L 500.2500, L100.0100, L503.6030 ####[facility] [address] [place], [address] Absolute Neut 3.3 X10 3/uL Normal 2.0-7.7 [facility] Comment on above: Performed By: #### L 500.2500, L100.0100, L503.6030 ####[facility] [address] [place], [address] Basophils/100 WBC (Bld) 0.8 % Normal 0-1 [facility] Comment on above: Performed By: #### L 500.2500, L100.0100, L503.6030 ####[facility] [address] [place], [address] Eosinophils/100 WBC (Bld) 9.0 % High 0-5 [facility] Comment on above: Performed By: #### L 500.2500, L100.0100, L503.6030 ####[facility] [address] [place], [address] Erythrocyte distribution width (RBC) [Ratio] 14.5 % Normal 11.6-14.6 [facility] Comment on above: Performed By: #### L 500.2500, L100.0100, L503.6030 ####[facility] [address] [place], [address] Hematocrit (Bld) [Volume fraction] 24.3 % Low 40-54 [facility] Comment on above: Performed By: #### L 500.2500, L100.0100, L503.6030 ####[facility] [address] [place], [address] Hemoglobin (Bld) [Mass/Vol] 8.0 g/dL Low 13.0-16.5 [facility] Comment on above: Performed By: #### L 500.2500, L100.0100, L503.6030 ####[facility] [address] [place], [address] IG% 0.500 Normal 0.0-0.9 [facility] Comment on above: Result Comment: IG% - Immature Granulocytes (promyelocytes, myelocytes andmetamyelocytes) > 1% indicates that a LEFT SHIFT is Present. Performed By: #### L 500.2500, L100.0100, L503.6030 ####[facility] [address] [place], [address] Lymphocytes/100 WBC (Bld) 25.0 % Normal 19-41 [facility] Comment on above: Performed By: #### L 500.2500, L100.0100, L503.6030 ####[facility] [address] [place], [address] MCH (RBC) [Entitic mass] 29.7 pg Normal 27.0-32.0 [facility] Comment on above: Performed By: #### L 500.2500, L100.0100, L503.6030 ####[facility] [address] [place], [address] MCHC (RBC) [Mass/Vol] 32.9 g/dL Normal 32-36 [facility] Comment on above: Performed By: #### L 500.2500, L100.0100, L503.6030 ####[facility] [address] [place], [address] MCV (RBC) [Entitic vol] 90.3 fL Normal 80-94 [facility] Comment on above: Performed By: #### L 500.2500, L100.0100, L503.6030 ####[facility] [address] [place], [address] Monocytes/100 WBC (Bld) 9.0 % Normal 0-10 [facility] Comment on above: Performed By: #### L 500.2500, L100.0100, L503.6030 ####[facility] [address] [place], [address] Neutrophils/100 WBC (Bld) 55.7 % Normal 47-70 [facility] Comment on above: Performed By: #### L 500.2500, L100.0100, L503.6030 ####[facility] [address] [place], [address] Nucleated RBC (Bld) [#/Vol] 0 10*3/uL Normal 0-5 [facility] Comment on above: Performed By: #### L 500.2500, L100.0100, L503.6030 ####[facility] [address] [place], [address] Platelet mean volume (Bld) [Entitic vol] 11.1 fL Normal 6.2-12.0 [facility] Comment on above: Performed By: #### L 500.2500, L100.0100, L503.6030 ####[facility] [address] [place], [address] Platelets (Bld) [#/Vol] 404 10*3/uL Normal 150-450 [facility] Comment on above: Performed By: #### L 500.2500, L100.0100, L503.6030 ####[facility] [address] [place], [address] RBC (Bld) [#/Vol] 2.69 10*6/uL Low 4.6-6.2 [facility] Comment on above: Performed By: #### L 500.2500, L100.0100, L503.6030 ####[facility] [address] [place], [address] RDW SD 46.9 fl High 35.1-43.9 [facility] Comment on above: Performed By: #### L 500.2500, L100.0100, L503.6030 ####[facility] [address] [place], [address] WBC (Bld) [#/Vol] 5.9 10*3/uL Normal 4.4-11.0 [facility] Comment on above: Performed By: #### L 500.2500, L100.0100, L503.6030 ####[facility] [address] [place], [address] Iron measurement (mass/mass) Ordered By: Arnulfo Londono on 12-29-2024 Iron (Unsp spec) [Mass/Mass] 20 ug/dL Low 65-175 [facility] Iron+Iron Binding Capacityon 12-29-2024 TIBC 198 ug/dL Low 250-450 [facility] Comment on above: Performed By: #### L 500.2500, L100.0100, L503.6030 ####[facility] [address] [place], [address] No Panel InformationOrdered By: Arnulfo Londono on 12-29-2024 Unsaturated Iron Binding Capacity 178 ug/dL Low 228-428 [facility] 178 ug/dL Low 228-428 [facility] Serum or plasma iron saturat ion measurement (mass fraction)Ordered By: Arnulfo Londono on 12-29-2024 Iron saturation [Mass fraction] 10.1 % 9-55 [facility] Comment on above: Previous reported re sult: 10.0 %Edited by: JO-ANN on 12/29/24:0642 AMENDED REPORT 12/29/2442 IRON SATURATION previously reported as: 10.0 % Basic Metabolic Profile (BMP )on 12-28-2024 BUN/CRE 27.6 RATIO High 10-20 [facility] Comment on above: Performed By: #### L 500.2500, L100.0100 ####[facility] [facility] [address] [place], [address] Calcium [Mass/Vol] 8.8 mg/dL Normal 7.6-11.0 [facility] Comment on above: Performed By: #### L 500.2500, L100.0100 ####[facility] [address] [place], [address] Chloride [Moles/Vol] 103 mmol/L Normal 98-108 [facility] Comment on above: Performed By: #### L 500.2500, L100.0100 ####[facility] [address] [place], [address] CO2 [Moles/Vol] 18.8 mmol/L Low 21.0-32.0 [facility] Comment on above: Performed By: #### L 500.2500, L100.0100 ####[facility] [address] [place], [address] Creatinine [Mass/Vol] 2.08 mg/dL High 0.70-1.20 [facility] Comment on above: Performed By: #### L 500.2500, L100.0100 ####[facility] [address] [place], [address] GAP 12 Normal 5-15 [facility] Comment on above: Performed By: #### L 500.2500, L100.0100 ####[facility] [address] [place], [address] GFR/1.73 sq M.predicted among non-blacks MDRD (S/P/Bld) [Vol rate/Area] 32 mL/min/{1.73_m2} Low >60 [facility] Comment on above: Result Comment: mL/m in/1.73m2 CKD-EPI Creatinine Equation (2020) Performed By: #### L 500.2500, L100.0100 ####[facility] [address] [place], [address] Glucose [Mass/Vol] 169 mg/dL High 70-99 [facility] Comment on above: Performed By: #### L 500.2500, L100.0100 ####[facility] [address] [place], [address] Potassium [Moles/Vol] 5.2 mmol/L High 3.3-5.1 [facility] Comment on above: Performed By: #### L 500.2500, L100.0100 ####[facility] [address] [place], [address] Sodium [Moles/Vol] 134 mmol/L Normal 133-145 [facility] Comment on above: Performed By: #### L 500.2500, L100.0100 ####[facility] [address] [place], [address] Urea nitrogen [Mass/Vol] 58 mg/dL High 4-19 [facility] Comment on above: Performed By: #### L 500.2500, L100.0100 ####[facility] [address] [place], [address] Bedside Glucoseon 12-28-2024 FINGERSTICK GLU 132 mg/dL High 74-106 [facility] Comment on above: Result Comment: ROSA GEMENT OF PATIENT CARE PER NURSING PROTOCOL Performed By: #### L 501.080 ####[facility] [address] [place], [address] FINGERSTICK GLU 171 mg/dL High 74-106 [facility] Comment on above: Result Comment: ROSA GEMENT OF PATIENT CARE PER NURSING PROTOCOL Performed By: #### L 501.080 ####[facility] [address] [place], [address] FINGERSTICK GLU 171 mg/dL High 74-106 [facility] Comment on above: Result Comment: ROSA GEMENT OF PATIENT CARE PER NURSING PROTOCOL Performed By: #### L 501.080 ####[facility] [address] [place], [address] FINGERSTICK GLU 150 mg/dL High 74-106 [facility] Comment on above: Result Comment: ROSA GEMENT OF PATIENT CARE PER NURSING PROTOCOL Performed By: #### L 501.080 ####[facility] [address] [place], [address] CBC W/Diff, Automatedon 06-0 Absolute Lymph 1.52 X10 3/uL Normal 0.83-4.51 [facility] Comment on above: Performed By: #### L 500.2500, L100.0100 ####[facility] [address] [place], [address] Absolute Neut 5.5 X10 3/uL Normal 2.0-7.7 [facility] Comment on above: Performed By: #### L 500.2500, L100.0100 ####[facility] [address] [place], [address] Basophils/100 WBC (Bld) 0.6 % Normal 0-1 [facility] Comment on above: Performed By: #### L 500.2500, L100.0100 ####[facility] [address] [place], [address] Eosinophils/100 WBC (Bld) 6.8 % High 0-5 [facility] Comment on above: Performed By: #### L 500.2500, L100.0100 ####[facility] [address] [place], [address] Erythrocyte distribution width (RBC) [Ratio] 14.5 % Normal 11.6-14.6 [facility] Comment on above: Performed By: #### L 500.2500, L100.0100 ####[facility] [address] [place], [address] Hematocrit (Bld) [Volume fraction] 26.0 % Low 40-54 [facility] Comment on above: Performed By: #### L 500.2500, L100.0100 ####[facility] [address] [place], [address] Hemoglobin (Bld) [Mass/Vol] 8.6 g/dL Low 13.0-16.5 [facility] Comment on above: Performed By: #### L 500.2500, L100.0100 ####[facility] [address] [place], [address] IG% 0.400 Normal 0.0-0.9 [facility] Comment on above: Result Comment: IG% - Immature Granulocytes (promyelocytes, myelocytes andmetamyelocytes) > 1% indicates that a LEFT SHIFT is Present. Performed By: #### L 500.2500, L100.0100 ####[facility] [address] [place], [address] Lymphocytes/100 WBC (Bld) 18.8 % Low 19-41 [facility] Comment on above: Performed By: #### L 500.2500, L100.0100 ####[facility] [address] [place], [address] MCH (RBC) [Entitic mass] 30.0 pg Normal 27.0-32.0 [facility] Comment on above: Performed By: #### L 500.2500, L100.0100 ####[facility] [address] [place], [address] MCHC (RBC) [Mass/Vol] 33.1 g/dL Normal 32-36 [facility] Comment on above: Performed By: #### L 500.2500, L100.0100 ####[facility] [address] [place], [address] MCV (RBC) [Entitic vol] 90.6 fL Normal 80-94 [facility] Comment on above: Performed By: #### L 500.2500, L100.0100 ####[facility] [address] [place], [address] Monocytes/100 WBC (Bld) 5.7 % Normal 0-10 [facility] Comment on above: Performed By: #### L 500.2500, L100.0100 ####[facility] [address] [place], [address] Neutrophils/100 WBC (Bld) 67.7 % Normal 47-70 [facility] Comment on above: Performed By: #### L 500.2500, L100.0100 ####[facility] [address] [place], [address] Nucleated RBC (Bld) [#/Vol] 0 10*3/uL Normal 0-5 [facility] Comment on above: Performed By: #### L 500.2500, L100.0100 ####[facility] [address] [place], [address] Platelet mean volume (Bld) [Entitic vol] 11.1 fL Normal 6.2-12.0 [facility] Comment on above: Performed By: #### L 500.2500, L100.0100 ####[facility] [address] [place], [address] Platelets (Bld) [#/Vol] 399 10*3/uL Normal 150-450 [facility] Comment on above: Performed By: #### L 500.2500, L100.0100 ####[facility] [address] [place], [address] RBC (Bld) [#/Vol] 2.87 10*6/uL Low 4.6-6.2 [facility] Comment on above: Performed By: #### L 500.2500, L100.0100 ####[facility] [address] [place], [address] RDW SD 47.6 fl High 35.1-43.9 [facility] Comment on above: Performed By: #### L 500.2500, L100.0100 ####[facility] [address] [place], [address] WBC (Bld) [#/Vol] 8.1 10*3/uL Normal 4.4-11.0 [facility] Comment on above: Performed By: #### L 500.2500, L100.0100 ####[facility] [address] [place], [address] Stool Occult Blood iFOBon STOB Positive Normal [facility] Comment on above: Performed By: #### M 100.7900 ####[facility] [address] [place], [address] Stool gastrointestinal hemog lobin detection by immunologic methodOrdered By: Arnulfo Londono on 12-28-2024 Lower GI hemoglobin IA Ql (Stl) Positive Abnormal [facility] Bedside Glucoseon 12-27-2024 FINGERSTICK GLU 167 mg/dL High 74-106 [facility] Comment on above: Result Comment: ROSA GEMENT OF PATIENT CARE PER NURSING PROTOCOL Performed By: #### L 501.080 ####[facility] [address] [place], [address] FINGERSTICK GLU 208 mg/dL High [address] [place] [address] Comment on above: Result Comment: ROSA GEMENT OF PATIENT CARE PER NURSING PROTOCOL Performed By: #### L 501.080 ####[facility] [address] [place], [address] FINGERSTICK GLU 242 mg/dL High [address] [place] [address] Comment on above: Result Comment: ROSA GEMENT OF PATIENT CARE PER NURSING PROTOCOL Performed By: #### L 501.080 ####[facility] [address] [place], [address] FINGERSTICK GLU 150 mg/dL High [address] [place] [address] Comment on above: Result Comment: ROSA GEMENT OF PATIENT CARE PER NURSING PROTOCOL Performed By: #### L 501.080 ####[facility] [address] [place], [address] FINGERSTICK GLU 137 mg/dL High [address] [place] [address] Comment on above: Result Comment: ROSA GEMENT OF PATIENT CARE PER NURSING PROTOCOL Performed By: #### L 501.080 ####[facility] [address] [place], [address] Chest PA and Lateralon 12-27 Chest PA and Lateral Normal [facility] Basic metabolic 2000 panelon 12-26-2024 Anion gap [Moles/Vol] 13 mmol/L Normal 8-[address] [facility] Comment on above: Order Comment: Speci men Type: BLOOD SPECIMENOrdering Facility: [facility] Address: [address] [place] [address] Performed By: #### 2 4321-2 ####[facility]ORYCLIA [id number] [place] [address] [place] Calcium [Mass/Vol] 8.6 mg/dL Normal 8.5-10.2 [facility] Comment on above: Order Comment: Speci men Type: BLOOD SPECIMENOrdering Facility: [facility] Address: [address] [place] [address] Performed By: #### 2 4321-2 ####[facility]ORYCLIA [id number] [place] [address] [place] Chloride [Moles/Vol] 100 mmol/L Normal 98-107 [facility] Comment on above: Order Comment: Speci men Type: BLOOD SPECIMENOrdering Facility: [facility] Address: [address] [place] [address] Performed By: #### 2 4321-2 ####[facility]ORYCLIA [id number] [place] [address] [place] CO2 [Moles/Vol] 21 mmol/L Low 22-30 [facility] Comment on above: Order Comment: Speci men Type: BLOOD SPECIMENOrdering Facility: [facility] Address: [address] [place] [address] Performed By: #### 2 4321-2 ####[facility]ORYCLIA [id number] [place] [address] [place] Creatinine [Mass/Vol] 1.75 mg/dL High 0.73-1.22 [facility] Comment on above: Order Comment: Speci men Type: BLOOD SPECIMENOrdering Facility: [facility] Address: [address] [place] [address] Performed By: #### 2 4321-2 ####[facility]ORYCLIA [id number] [place] [address] [place] Creatinine and Glomerular filtration rate.predicted panel (S/P/Bld) 39 mL/min/1.73m??? Low >=60 [facility] Comment on above: Order Comment: Stuart madrigal Type: BLOOD SPECIMENOrdering Facility: [facility] Address: [address] [place] [address] Result Comment: Eli mated Glomerular Filtration Rate (eGFR) is calculated using the 2020 CKD-EPI creatinine equation. This equation utilizes serum creatinine, sex, and age as parameters. The creatinine assay has traceable calibration to isotope dilution-mass spectrometry. Refer to KDIGO guidelines for clinical interpretation. In patients with unstable renal function, e.g. those with acute kidney injury, the eGFR may not accurately reflect actual GFR. Performed By: #### 2 4321-2 ####[facility]ORYCLIA [id number] [place] [address] [place] Glucose [Mass/Vol] 138 mg/dL High 74-99 [facility] Comment on above: Order Comment: Stuart madrigal Type: BLOOD SPECIMENOrdering Facility: [facility] Address: [address] [place] [address] Result Comment: The [place] [employer] (ADA) provides guidance for cutoff values for fasting glucose and random glucose. The ADA defines fasting as no caloric intake for at least 8 hours. Fasting plasma glucose results between 100 to 125 mg/dL indicate increased risk for diabetes (prediabetes).Fasting plasma glucose results greater than or equal to 126 mg/dL meet the criteria for diagnosis of diabetes. In the absence of unequivocal hyperglycemia, results should be confirmed by repeat testing. In a patient with classic symptoms of hyperglycemia or hyperglycemic crisis, random plasma glucose results greater than or equal to 200 mg/dL meet the criteria for diagnosis of diabetes.Reference: Standards of Medical Care in Diabetes 2016, [place] [employer]. Diabetes Care. 2016.39(Suppl 1). Performed By: #### 2 4321-2 ####[facility]ORYCLIA [id number] [place] [address] [place] Potassium [Moles/Vol] 4.2 mmol/L Normal 3.7-5.1 [facility] Comment on above: Order Comment: Stuart madrigal Type: BLOOD SPECIMENOrdering Facility: [facility] Address: [address] [place] [address] Performed By: #### 2 4321-2 ####[facility]ATORYCLIA [id number] [place] [id number] [place] Sodium [Moles/Vol] 134 mmol/L Low 136-144 [facility] Comment on above: Order Comment: Speci men Type: BLOOD SPECIMENOrdering Facility: [facility] Address: [address] [place] [address] Performed By: #### 2 4321-2 ####[facility]ORYCLIA [id number] [address] [place] Urea nitrogen [Mass/Vol] 37 mg/dL High 9-24 [facility] Comment on above: Order Comment: Speci men Type: BLOOD SPECIMENOrdering Facility: [facility] Address: [address] [place] [address] Performed By: #### 2 4321-2 ####[facility]ORYCLIA [id number] [address] [place] CASE MANAGEMon 12-26-2024 CASE MANAGEM Normal [facility] CASE MANAGEM Normal [facility] CBC panel Auto (Bld)on 12-26 Erythrocyte distribution width (RBC) [Ratio] 14.6 % Normal 11.5-15.0 [facility] Comment on above: Order Comment: Speci men Type: BLOOD SPECIMENOrdering Facility: [facility] Address: [address] [place] [address] Performed By: #### 5 8410-2 ####[facility]ORYCLIA [id number] [address] [place] Hematocrit (Bld) [Volume fraction] 28.1 % Low 39.0-51.0 [facility] Comment on above: Order Comment: Speci men Type: BLOOD SPECIMENOrdering Facility: [facility] Address: [address] [place] [address] Performed By: #### 5 8410-2 ####[facility]ORYCLIA [id number] [address] Hemoglobin (Bld) [Mass/Vol] 9.2 g/dL Low 13.0-17.0 [facility] Comment on above: Order Comment: Speci men Type: BLOOD SPECIMENOrdering Facility: [facility] Address: [address] [place] [address] Performed By: #### 5 8410-2 ####[facility]ATORYCLIA [id number] [address] MCH (RBC) [Entitic mass] 30.1 pg Normal 26.0-34.0 [facility] Comment on above: Order Comment: Speci men Type: BLOOD SPECIMENOrdering Facility: [facility] Address: [address] [place] [address] Performed By: #### 5 8410-2 ####[facility]ORYCLIA [id number] [address] MCHC (RBC) [Mass/Vol] 32.7 g/dL Normal 30.5-36.0 [facility] Comment on above: Order Comment: Speci men Type: BLOOD SPECIMENOrdering Facility: [facility] Address: [address] [place] [address] Performed By: #### 5 8410-2 ####[facility]ORYCLIA [id number] [address] MCV (RBC) [Entitic vol] 91.8 fL Normal 80.0-100.0 [facility] Comment on above: Order Comment: Speci men Type: BLOOD SPECIMENOrdering Facility: [facility] Address: [address] [place] [address] Performed By: #### 5 8410-2 ####[facility]ORYCLIA [id number] [address] Nucleated RBC (Bld) [#/Vol] 10*3/uL Normal <0.01 [facility] Comment on above: Order Comment: Speci men Type: BLOOD SPECIMENOrdering Facility: [facility] Address: [address] [place] [address] Performed By: #### 5 8410-2 ####[facility]ATORYCLIA [id number] [address] [place] Platelet mean volume (Bld) [Entitic vol] 10.8 fL Normal 9.0-12.7 [facility] Comment on above: Order Comment: Speci men Type: BLOOD SPECIMENOrdering Facility: [facility] Address: [facility] [place] [address] Performed By: #### 5 8410-2 ####[facility]ATORYCLIA [id number] [place] [address] [place] Platelets (Bld) [#/Vol] 380 10*3/uL Normal 150-400 [facility] Comment on above: Order Comment: Speci men Type: BLOOD SPECIMENOrdering Facility: [facility] Address: [address] [place] [address] Performed By: #### 5 8410-2 ####[facility]ORYCLIA [id number] [place] [address] [place] RBC (Bld) [#/Vol] 3.06 10*6/uL Low 4.20-6.00 [facility] Comment on above: Order Comment: Speci men Type: BLOOD SPECIMENOrdering Facility: [facility] Address: [address] [place] [address] Performed By: #### 5 8410-2 ####[facility]ATORYCLIA [id number] [place] [address] [place] WBC (Bld) [#/Vol] 6.46 10*3/uL Normal 3.70-11.00 [facility] Comment on above: Order Comment: Speci men Type: BLOOD SPECIMENOrdering Facility: [facility] Address: [address] [place] [address] Performed By: #### 5 8410-2 ####[facility]ATORYCLIA [id number] [address] [place] CNDSon 12-26-2024 CNDS Normal [facility] CONSULT PROGon 12-26-2024 CONSULT PROG Normal [facility] CYSTATIN Con 12-26-2024 Cystatin C [Mass/Vol] 2.49 mg/L High 0.61-0.95 [facility] Comment on above: Order Comment: Speci men Type: BLOOD SPECIMENOrdering Facility: [facility] Address: [address] [place] [address] Performed By: #### C YSTC ####[facility] LABCLIA [id number] [place] [address] [place] CYSTATIN C EGFR 22 mL/min/1.73m??? Low >=60 [facility] Comment on above: Order Comment: Speci men Type: BLOOD SPECIMENOrdering Facility: [facility] Address: [address] [place] [address] Result Comment: Eli mated Glomerular Filtration Rate (eGFR) is calculated using the 2012 CKD-EPI cystatin C equation. This equation utilizes serum cystatin C, sex, and age as parameters. The cystatin C assay has traceable calibration to the ERM-DA471/IF reference material. Refer to KDIGO guidelines for clinical interpretation. In patients with unstable renal function, e.g. those with acute kidney injury, the eGFR may not accurately reflect actual GFR. Performed By: #### C YSTC ####[facility] LABCLIA [id number] [place] [address] [place] Basic metabolic 2000 panelon 12-25-2024 Anion gap [Moles/Vol] 13 mmol/L Normal 8-15 [facility] Comment on above: Order Comment: Speci men Type: BLOOD SPECIMENOrdering Facility: [facility] Address: [address] [place] [address] Performed By: #### 2 4321-2, 11291-1 ####[facility]ATORYCLIA [id number] [place] [address] [place] Calcium [Mass/Vol] 8.0 mg/dL Low 8.5-10.2 [facility] Comment on above: Order Comment: Speci men Type: BLOOD SPECIMENOrdering Facility: [facility] Address: [address] [place] [address] Performed By: #### 2 4321-2, 74520-7 ####[facility]ATORYCLIA [id number] [place] [address] [place] Chloride [Moles/Vol] 103 mmol/L Normal 98-107 [facility] Comment on above: Order Comment: Speci men Type: BLOOD SPECIMENOrdering Facility: [facility] Address: [address] [place] [address] Performed By: #### 2 4321-2, 61503-0 ####[facility]ORYCLIA [id number] [place] [id number] [place] CO2 [Moles/Vol] 22 mmol/L Normal 22-30 [facility] Comment on above: Order Comment: Speci men Type: BLOOD SPECIMENOrdering Facility: [facility] Address: [address] [place] [address] Performed By: #### 2 4321-2, 25794-4 ####[facility]ORYCLIA [id number] [place] [address] [place] Creatinine [Mass/Vol] 1.80 mg/dL High 0.73-1.22 [facility] Comment on above: Order Comment: Speci men Type: BLOOD SPECIMENOrdering Facility: [facility] Address: [address] [place] [address] Performed By: #### 2 4321-2, 64867-9 ####[facility]ORYCLIA [id number] [address] [place] Creatinine and Glomerular filtration rate.predicted panel (S/P/Bld) 38 mL/min/1.73m??? Low >=60 [facility] Comment on above: Order Comment: Speci men Type: BLOOD SPECIMENOrdering Facility: [facility] Address: [address] [place] [address] Result Comment: Eli mated Glomerular Filtration Rate (eGFR) is calculated using the 2020 CKD-EPI creatinine equation. This equation utilizes serum creatinine, sex, and age as parameters. The creatinine assay has traceable calibration to isotope dilution-mass spectrometry. Refer to KDIGO guidelines for clinical interpretation. In patients with unstable renal function, e.g. those with acute kidney injury, the eGFR may not accurately reflect actual GFR. Performed By: #### 2 4321-2, 04287-4 ####[facility]ORYCLIA [id number] [place] [address] [place] Glucose [Mass/Vol] 121 mg/dL High 74-99 [facility] Comment on above: Order Comment: Speci men Type: BLOOD SPECIMENOrdering Facility: [facility] Address: [address] [place] [address] Result Comment: The [place] Diabetes [employer] (ADA) provides guidance for cutoff values for fasting glucose and random glucose. The ADA defines fasting as no caloric intake for at least 8 hours. Fasting plasma glucose results between 100 to 125 mg/dL indicate increased risk for diabetes (prediabetes).Fasting plasma glucose results greater than or equal to 126 mg/dL meet the criteria for diagnosis of diabetes. In the absence of unequivocal hyperglycemia, results should be confirmed by repeat testing. In a patient with classic symptoms of hyperglycemia or hyperglycemic crisis, random plasma glucose results greater than or equal to 200 mg/dL meet the criteria for diagnosis of diabetes.Reference: Standards of Medical Care in Diabetes 2016, [place] [employer]. Diabetes Care. 2016.39(Suppl 1). Performed By: #### 2 4321-2, 77315-5 ####[facility]ORYCLIA [id number] [place] [address] [place] Potassium [Moles/Vol] 4.3 mmol/L Normal 3.7-5.1 [facility] Comment on above: Order Comment: Speci [facility] Type: BLOOD SPECIMENOrdering Facility: [facility] Address: [address] [place] [id number] Performed By: #### 2 432-2, 94768-6 ####[facility]. [facility]ORYCLIA [id number] [place] [address] [place] Sodium [Moles/Vol] 138 mmol/L Normal 136-144 [facility] Comment on above: Order Comment: Speci men Type: BLOOD SPECIMENOrdering Facility: [facility] Address: [address] [place] [address] Performed By: #### 2 4321-2, 62899-1 ####[facility]ORYCLIA [id number] [address] [place] Urea nitrogen [Mass/Vol] 35 mg/dL High 9-24 [facility] Comment on above: Order Comment: Speci men Type: BLOOD SPECIMENOrdering Facility: [facility] Address: [address] [place] [address] Performed By: #### 2 4321-2, 04840-3 ####[facility]ORYCLIA [id number] [address] [place] CASE MANAGEMon 12-25-2024 CASE MANAGEM Normal [facility] CBC panel Auto (Bld)on 12-25 Erythrocyte distribution width (RBC) [Ratio] 14.5 % Normal 11.5-15.0 [facility] Comment on above: Order Comment: Speci men Type: BLOOD SPECIMENOrdering Facility: [facility] Address: [address] [place] [address] Performed By: #### 5 8410-2 ####[facility]ATORYCLIA [id number] [address] [place] Hematocrit (Bld) [Volume fraction] 27.3 % Low 39.0-51.0 [facility] Comment on above: Order Comment: Speci men Type: BLOOD SPECIMENOrdering Facility: [facility] Address: [address] [place] [address] Performed By: #### 5 8410-2 ####[facility]ATORYCLIA [id number] [address] [place] Hemoglobin (Bld) [Mass/Vol] 8.8 g/dL Low 13.0-17.0 [facility] Comment on above: Order Comment: Speci men Type: BLOOD SPECIMENOrdering Facility: [facility] Address: [address] [place] [address] Performed By: #### 5 8410-2 ####[facility]ATORYCLIA [id number] [address] MCH (RBC) [Entitic mass] 30.1 pg Normal 26.0-34.0 [facility] Comment on above: Order Comment: Speci men Type: BLOOD SPECIMENOrdering Facility: [facility] Address: [address] [place] [address] Performed By: #### 5 8410-2 ####[facility]ATORYCLIA [id number] [address] MCHC (RBC) [Mass/Vol] 32.2 g/dL Normal 30.5-36.0 [facility] Comment on above: Order Comment: Speci men Type: BLOOD SPECIMENOrdering Facility: [facility] Address: [address] [place] [address] Performed By: #### 5 8410-2 ####[facility]ATORYCLIA [id number] [address] MCV (RBC) [Entitic vol] 93.5 fL Normal 80.0-100.0 [facility] Comment on above: Order Comment: Speci men Type: BLOOD SPECIMENOrdering Facility: [facility] Address: [address] [place] [address] Performed By: #### 5 8410-2 ####[facility]ATORYCLIA [id number] [address] Nucleated RBC (Bld) [#/Vol] 10*3/uL Normal <0.01 [facility] Comment on above: Order Comment: Speci men Type: BLOOD SPECIMENOrdering Facility: [facility] Address: [address] [place] [address] Performed By: #### 5 8410-2 ####[facility]ATORYCLIA [id number] [address] Platelet mean volume (Bld) [Entitic vol] 10.8 fL Normal 9.0-12.7 [facility] Comment on above: Order Comment: Speci men Type: BLOOD SPECIMENOrdering Facility: [facility] Address: [address] [place] [address] Performed By: #### 5 8410-2 ####[facility]ATORYCLIA [id number] [address] Platelets (Bld) [#/Vol] 352 10*3/uL Normal 150-400 [facility] Comment on above: Order Comment: Speci men Type: BLOOD SPECIMENOrdering Facility: [facility] Address: [address] [place] [address] Performed By: #### 5 8410-2 ####[facility]ATORYCLIA [id number] [address] [place] RBC (Bld) [#/Vol] 2.92 10*6/uL Low 4.20-6.00 [facility] Comment on above: Order Comment: Speci men Type: BLOOD SPECIMENOrdering Facility: [facility] Address: [address] [place] [address] Performed By: #### 5 8410-2 ####[facility]ATORYCLIA [id number] [address] OF [facility] WBC (Bld) [#/Vol] 6.36 10*3/uL Normal 3.70-11.00 [facility] Comment on above: Order Comment: Speci men Type: BLOOD SPECIMENOrdering Facility: [facility] Address: [address] [place] [address] Performed By: #### 5 8410-2 ####[facility]ATORYCLIA [id number] [address] [place] CONSULTon 12-25-2024 CONSULT Normal [facility] CONSULT PROGon 12-25-2024 CONSULT PROG Normal [facility] CONSULT PROG Normal [facility] ECG COMPLETEon 12-25-2024 ECG COMPLETE Normal [facility] NUTRITIONon 12-25-2024 NUTRITION Normal [facility] Prealbumin [Mass/Vol]on Prealbumin Nephelometry [Mass/Vol] 22 mg/dL Normal 17-36 [facility] Comment on above: Order Comment: Speci men Type: BLOOD SPECIMENOrdering Facility: [facility] Address: [address] [place] [address] Performed By: #### 2 4321-2, 99710-2 ####[facility]ORATORYCLIA [id number] [place] [address] [place] Basic metabolic 2000 panelon 12-24-2024 Anion gap [Moles/Vol] 11 mmol/L Normal 8-15 [facility] Comment on above: Order Comment: Speci men Type: BLOOD SPECIMENOrdering Facility: [facility] Address: [address] [place] [address] Performed By: #### 2 4321-2 ####[facility]ATORYCLIA [id number] [place] [address] [place] Calcium [Mass/Vol] 8.2 mg/dL Low 8.5-10.2 [facility] Comment on above: Order Comment: Speci men Type: BLOOD SPECIMENOrdering Facility: [facility] Address: [address] [place] [address] Performed By: #### 2 4321-2 ####[facility]ATORYCLIA [id number] [address] [place] Chloride [Moles/Vol] 101 mmol/L Normal 98-107 [facility] Comment on above: Order Comment: Speci men Type: BLOOD SPECIMENOrdering Facility: [facility] Address: [address] [place] [address] Performed By: #### 2 4321-2 ####[facility]ORATORYCLIA [id number] [place] [address] [place] CO2 [Moles/Vol] 23 mmol/L Normal 22-30 [facility] Comment on above: Order Comment: Speci men Type: BLOOD SPECIMENOrdering Facility: [facility] Address: [address] [place] [address] Performed By: #### 2 4321-2 ####[facility]ORATORYCLIA [id number] [place] [address] [place] Creatinine [Mass/Vol] 1.53 mg/dL High 0.73-1.22 [facility] Comment on above: Order Comment: Stuart madrigal Type: BLOOD SPECIMENOrdering Facility: [facility] Address: [address] [place] [address] Performed By: #### 2 4321-2 ####[facility] CENTERIA [id number] [address] Creatinine and Glomerular filtration rate.predicted panel (S/P/Bld) 46 mL/min/1.73m??? Low >=60 [facility] Comment on above: Order Comment: Stuart madrigal Type: BLOOD SPECIMENOrdering Facility: [facility] Address: [address] [place] [address] Result Comment: Eli mated Glomerular Filtration Rate (eGFR) is calculated using the 2020 CKD-EPI creatinine equation. This equation utilizes serum creatinine, sex, and age as parameters. The creatinine assay has traceable calibration to isotope dilution-mass spectrometry. Refer to KDIGO guidelines for clinical interpretation. In patients with unstable renal function, e.g. those with acute kidney injury, the eGFR may not accurately reflect actual GFR. Performed By: #### 2 4321-2 ####[facility] CENTERIA [id number] [address] [place] Glucose [Mass/Vol] 119 mg/dL High 74-99 [facility] Comment on above: Order Comment: Stuart madrigal Type: BLOOD SPECIMENOrdering Facility: [facility] Address: [address] [place] [address] Result Comment: The [place] [employer] (ADA) provides guidance for cutoff values for fasting glucose and random glucose. The ADA defines fasting as no caloric intake for at least 8 hours. Fasting plasma glucose results between 100 to 125 mg/dL indicate increased risk for diabetes (prediabetes).Fasting plasma glucose results greater than or equal to 126 mg/dL meet the criteria for diagnosis of diabetes. In the absence of unequivocal hyperglycemia, results should be confirmed by repeat testing. In a patient with classic symptoms of hyperglycemia or hyperglycemic crisis, random plasma glucose results greater than or equal to 200 mg/dL meet the criteria for diagnosis of diabetes.Reference: Standards of Medical Care in Diabetes 2016, [place] [employer]. Diabetes Care. 2016.39(Suppl 1). Performed By: #### 2 4321-2 ####[facility]ATORYCLIA [id number] [address] STATES OF [facility] Potassium [Moles/Vol] 4.2 mmol/L Normal 3.7-5.1 [facility] Comment on above: Order Comment: Speci men Type: BLOOD SPECIMENOrdering Facility: [facility] Address: [address] [place] [address] Performed By: #### 2 4321-2 ####[facility]ATORYCLIA [id number] [address] Sodium [Moles/Vol] 135 mmol/L Low 136-144 [facility] Comment on above: Order Comment: Speci men Type: BLOOD SPECIMENOrdering Facility: [facility] Address: [address] [place] [address] Performed By: #### 2 4321-2 ####[facility]ORYCLIA [id number] [address] Urea nitrogen [Mass/Vol] 30 mg/dL High 9-24 [facility] Comment on above: Order Comment: Speci men Type: BLOOD SPECIMENOrdering Facility: [facility] Address: [address] [place] [address] Performed By: #### 2 4321-2 ####[facility]ATORYCLIA [id number] [address] CBC panel Auto (Bld)on 12-24 Erythrocyte distribution width (RBC) [Ratio] 14.6 % Normal 11.5-15.0 [facility] Comment on above: Order Comment: Speci men Type: BLOOD SPECIMENOrdering Facility: [facility] Address: [address] [place] [address] Performed By: #### 5 8410-2 ####[facility]ATORYCLIA [id number] [address] STATES OF [facility] Hematocrit (Bld) [Volume fraction] 26.3 % Low 39.0-51.0 [facility] Comment on above: Order Comment: Speci men Type: BLOOD SPECIMENOrdering Facility: [facility] Address: [address] [place] [address] Performed By: #### 5 8410-2 ####[facility]ORYCLIA [id number] [address] OF [facility] Hemoglobin (Bld) [Mass/Vol] 8.6 g/dL Low 13.0-17.0 [facility] Comment on above: Order Comment: Speci men Type: BLOOD SPECIMENOrdering Facility: [facility] Address: [address] [place] [address] Performed By: #### 5 8410-2 ####[facility]ORYCLIA [id number] [address] STATES [facility] MCH (RBC) [Entitic mass] 30.2 pg Normal 26.0-34.0 [facility] Comment on above: Order Comment: Speci men Type: BLOOD SPECIMENOrdering Facility: [facility] Address: [address] [place] [address] Performed By: #### 5 8410-2 ####[facility]ORYCLIA [id number] [address] [place] MCHC (RBC) [Mass/Vol] 32.7 g/dL Normal 30.5-36.0 [facility] Comment on above: Order Comment: Speci men Type: BLOOD SPECIMENOrdering Facility: [facility] Address: [address] [place] [address] Performed By: #### 5 8410-2 ####[facility]ATORYCLIA [id number] [address] MCV (RBC) [Entitic vol] 92.3 fL Normal 80.0-100.0 [facility] Comment on above: Order Comment: Speci men Type: BLOOD SPECIMENOrdering Facility: [facility] Address: [address] [place] [address] Performed By: #### 5 8410-2 ####[facility]ATORYCLIA [id number] [place] [address] [place] Nucleated RBC (Bld) [#/Vol] 10*3/uL Normal <0.01 [facility] Comment on above: Order Comment: Speci men Type: BLOOD SPECIMENOrdering Facility: [facility] Address: [address] [place] [address] Performed By: #### 5 8410-2 ####[facility]ATORYCLIA [id number] [address] [place] Platelet mean volume (Bld) [Entitic vol] 11.3 fL Normal 9.0-12.7 [facility] Comment on above: Order Comment: Speci men Type: BLOOD SPECIMENOrdering Facility: [facility] Address: [address] [place] [address] Performed By: #### 5 8410-2 ####[facility]ATORYCLIA [id number] [address] [place] Platelets (Bld) [#/Vol] 346 10*3/uL Normal 150-400 [facility] Comment on above: Order Comment: Speci men Type: BLOOD SPECIMENOrdering Facility: [facility] Address: [address] [place] [address] Performed By: #### 5 8410-2 ####[facility]ATORYCLIA [id number] [place] [address] [place] RBC (Bld) [#/Vol] 2.85 10*6/uL Low 4.20-6.00 [facility] Comment on above: Order Comment: Speci men Type: BLOOD SPECIMENOrdering Facility: [facility] Address: [address] [place] [address] Performed By: #### 5 8410-2 ####[facility]ATORYCLIA [id number] [place] [address] [place] WBC (Bld) [#/Vol] 6.83 10*3/uL Normal 3.70-11.00 [facility] Comment on above: Order Comment: Speci men Type: BLOOD SPECIMENOrdering Facility: [facility] Address: [address] [place] [address] Performed By: #### 5 8410-2 ####[facility]ATORYCLIA [id number] [place] [address] [place] CNPNon 12-24-2024 CNPN Normal [facility] CONSULTon 12-24-2024 CONSULT Normal [facility] CONSULT PROGon 12-24-2024 CONSULT PROG Normal [facility] NURSING PROGon 12-24-2024 NURSING PROG Normal [facility] Basic metabolic 2000 panelon 12-23-2024 Anion gap [Moles/Vol] 10 mmol/L Normal 8-15 [facility] Comment on above: Order Comment: Speci men Type: BLOOD SPECIMENOrdering Facility: [facility] Address: [address] [place] [address] Performed By: #### 2 4321-2 ####[facility]ATORYCLIA [id number] [place] [address] [place] Calcium [Mass/Vol] 8.5 mg/dL Normal 8.5-10.2 [facility] Comment on above: Order Comment: Speci men Type: BLOOD SPECIMENOrdering Facility: [facility] Address: [address] [place] [address] Performed By: #### 2 4321-2 ####[facility]ORYCLIA [id number] [place] [address] [place] Chloride [Moles/Vol] 103 mmol/L Normal 98-107 [facility] Comment on above: Order Comment: Speci men Type: BLOOD SPECIMENOrdering Facility: [facility] Address: [address] [place] [address] Performed By: #### 2 4321-2 ####[facility]ORYCLIA [id number] [place] [address] [place] CO2 [Moles/Vol] 25 mmol/L Normal 22-30 [facility] Comment on above: Order Comment: Speci men Type: BLOOD SPECIMENOrdering Facility: [facility] Address: [address] [place] [address] Performed By: #### 2 4321-2 ####[facility] [id number] [place] [id number] [place] Creatinine [Mass/Vol] 2.04 mg/dL High 0.73-1.22 [facility] Comment on above: Order Comment: Stuart kaitlin Type: BLOOD SPECIMENOrdering Facility: [facility] Address: [address] [place] [address] Performed By: #### 2 4321-2 ####[facility]ATORYCLIA [id number] [address] Creatinine and Glomerular filtration rate.predicted panel (S/P/Bld) 33 mL/min/1.73m??? Low >=60 [facility] Comment on above: Order Comment: Stuart kaitlin Type: BLOOD SPECIMENOrdering Facility: [facility] Address: [address] [place] [address] Result Comment: Eli mated Glomerular Filtration Rate (eGFR) is calculated using the 2020 CKD-EPI creatinine equation. This equation utilizes serum creatinine, sex, and age as parameters. The creatinine assay has traceable calibration to isotope dilution-mass spectrometry. Refer to KDIGO guidelines for clinical interpretation. In patients with unstable renal function, e.g. those with acute kidney injury, the eGFR may not accurately reflect actual GFR. Performed By: #### 2 4321-2 ####[facility]ORYCLIA [id number] [address] [place] Glucose [Mass/Vol] 98 mg/dL Normal 74-99 [facility] Comment on above: Order Comment: Stuart madrigal Type: BLOOD SPECIMENOrdering Facility: [facility] Address: [address] [place] [address] Result Comment: The [place] Diabetes [employer] (ADA) provides guidance for cutoff values for fasting glucose and random glucose. The ADA defines fasting as no caloric intake for at least 8 hours. Fasting plasma glucose results between 100 to 125 mg/dL indicate increased risk for diabetes (prediabetes).Fasting plasma glucose results greater than or equal to 126 mg/dL meet the criteria for diagnosis of diabetes. In the absence of unequivocal hyperglycemia, results should be confirmed by repeat testing. In a patient with classic symptoms of hyperglycemia or hyperglycemic crisis, random plasma glucose results greater than or equal to 200 mg/dL meet the criteria for diagnosis of diabetes.Reference: Standards of Medical Care in Diabetes 2016, [place] [employer]. Diabetes Care. 2016.39(Suppl 1). Performed By: #### 2 4321-2 ####[facility]ATORYCLIA [id number] [address] OF [facility] Potassium [Moles/Vol] 4.3 mmol/L Normal 3.7-5.1 [facility] Comment on above: Order Comment: Daríoi kaitlin Type: BLOOD SPECIMENOrdering Facility: [facility] Address: [address] [place] [address] Performed By: #### 2 4321-2 ####[facility] [id number] [address] Sodium [Moles/Vol] 138 mmol/L Normal 136-144 [facility] Comment on above: Order Comment: Daríoi kaitlin Type: BLOOD SPECIMENOrdering Facility: [facility] Address: [address] [place] [address] Performed By: #### 2 4321-2 ####[facility]ITALCLIA [id number] [address] STATES [facility] Urea nitrogen [Mass/Vol] 62 mg/dL High 9-24 [facility] Comment on above: Order Comment: Daríoi men Type: BLOOD SPECIMENOrdering Facility: [facility] Address: [address] [place] [address] Performed By: #### 2 4321-2 ####[facility]ORYCLIA [id number] [address] OF [place] CBC panel Auto (Bld)on 12-23 Erythrocyte distribution width (RBC) [Ratio] 14.9 % Normal 11.5-15.0 [facility] Comment on above: Order Comment: Speci men Type: BLOOD SPECIMENOrdering Facility: [facility] Address: [address] [place] [address] Performed By: #### 5 8410-2 ####[facility]ORYCLIA [id number] [address] Hematocrit (Bld) [Volume fraction] 27.1 % Low 39.0-51.0 [facility] Comment on above: Order Comment: Speci men Type: BLOOD SPECIMENOrdering Facility: [facility] Address: [address] [place] [address] Performed By: #### 5 8410-2 ####[facility]ORYCLIA [id number] [address] Hemoglobin (Bld) [Mass/Vol] 8.6 g/dL Low 13.0-17.0 [facility] Comment on above: Order Comment: Speci men Type: BLOOD SPECIMENOrdering Facility: [facility] Address: [address] [place] [address] Performed By: #### 5 8410-2 ####[facility]ORYCLIA [id number] [address] STATES OF [facility] MCH (RBC) [Entitic mass] 30.3 pg Normal 26.0-34.0 [facility] Comment on above: Order Comment: Speci men Type: BLOOD SPECIMENOrdering Facility: [facility] Address: [address] [place] [address] Performed By: #### 5 8410-2 ####[facility]ORYCLIA [id number] [address] OF [facility] MCHC (RBC) [Mass/Vol] 31.7 g/dL Normal 30.5-36.0 [facility] Comment on above: Order Comment: Speci men Type: BLOOD SPECIMENOrdering Facility: [facility] Address: [address] [place] [address] Performed By: #### 5 8410-2 ####[facility]ORYCLIA [id number] [address] MCV (RBC) [Entitic vol] 95.4 fL Normal 80.0-100.0 [facility] Comment on above: Order Comment: Speci men Type: BLOOD SPECIMENOrdering Facility: [facility] Address: [address] [place] [address] Performed By: #### 5 8410-2 ####[facility]ORYCLIA [id number] [address] [place] Nucleated RBC (Bld) [#/Vol] 0.02 10*3/uL High <0.01 [facility] Comment on above: Order Comment: Speci men Type: BLOOD SPECIMENOrdering Facility: [facility] Address: [address] [place] [address] Performed By: #### 5 8410-2 ####[facility]ORYCLIA [id number] [address] [place] Platelet mean volume (Bld) [Entitic vol] 11.9 fL Normal 9.0-12.7 [facility] Comment on above: Order Comment: Speci men Type: BLOOD SPECIMENOrdering Facility: [facility] Address: [address] [place] [address] Performed By: #### 5 8410-2 ####[facility]ORYCLIA [id number] [address] OF [place] Platelets (Bld) [#/Vol] 355 10*3/uL Normal 150-400 [facility] Comment on above: Order Comment: Speci men Type: BLOOD SPECIMENOrdering Facility: [facility] Address: [address] [place] [address] Performed By: #### 5 8410-2 ####[facility]ORYCLIA [id number] [address] [place] RBC (Bld) [#/Vol] 2.84 10*6/uL Low 4.20-6.00 [facility] Comment on above: Order Comment: Speci men Type: BLOOD SPECIMENOrdering Facility: [facility] Address: [address] [place] [address] Performed By: #### 5 8410-2 ####[facility] LABORATORYCLIA [id number] [place] [address] [place] WBC (Bld) [#/Vol] 8.92 10*3/uL Normal 3.70-11.00 [facility] Comment on above: Order Comment: Speci men Type: BLOOD SPECIMENOrdering Facility: [facility] [facility] Address: [address] [place] [address] Performed By: #### 5 8410-2 ####[facility]ATORYCLIA [id number] [address] [place] CONSULT PROGon 12-23-2024 CONSULT PROG Normal [facility] NURSING PROGon 12-23-2024 NURSING PROG Normal [facility] NURSING PROG Normal [facility] Basic metabolic 2000 panelon 12-22-2024 Anion gap [Moles/Vol] 12 mmol/L Normal 8-15 [facility] Comment on above: Order Comment: Speci men Type: BLOOD SPECIMENOrdering Facility: [facility] Address: [address] [place] [address] Performed By: #### 2 4321-2 ####[facility]ATORYCLIA [id number] [place] [address] [place] Calcium [Mass/Vol] 8.8 mg/dL Normal 8.5-10.2 [facility] Comment on above: Order Comment: Speci men Type: BLOOD SPECIMENOrdering Facility: [facility] Address: [address] [place] [address] Performed By: #### 2 4321-2 ####[facility]ATORYCLIA [id number] [place] [id number] [place] Chloride [Moles/Vol] 105 mmol/L Normal 98-107 [facility] Comment on above: Order Comment: Speci men Type: BLOOD SPECIMENOrdering Facility: [facility] Address: [address] [place] [address] Performed By: #### 2 4321-2 ####[facility]ORYCLIA [id number] [address] [place] CO2 [Moles/Vol] 25 mmol/L Normal 22-30 [facility] Comment on above: Order Comment: Speci men Type: BLOOD SPECIMENOrdering Facility: [facility] Address: [address] [place] [address] Performed By: #### 2 4321-2 ####[facility]ATORYCLIA [id number] [address] [place] Creatinine [Mass/Vol] 2.24 mg/dL High 0.73-1.22 [facility] Comment on above: Order Comment: Speci men Type: BLOOD SPECIMENOrdering Facility: [facility] Address: [address] [place] [address] Performed By: #### 2 4321-2 ####[facility]ATORYCLIA [id number] [address] Creatinine and Glomerular filtration rate.predicted panel (S/P/Bld) 29 mL/min/1.73m??? Low >=60 [facility] Comment on above: Order Comment: Speci men Type: BLOOD SPECIMENOrdering Facility: [facility] Address: [address] [place] [address] Result Comment: Eli mated Glomerular Filtration Rate (eGFR) is calculated using the 2020 CKD-EPI creatinine equation. This equation utilizes serum creatinine, sex, and age as parameters. The creatinine assay has traceable calibration to isotope dilution-mass spectrometry. Refer to KDIGO guidelines for clinical interpretation. In patients with unstable renal function, e.g. those with acute kidney injury, the eGFR may not accurately reflect actual GFR. Performed By: #### 2 4321-2 ####[facility]ATORYCLIA [id number] [address] [place] Glucose [Mass/Vol] 150 mg/dL High 74-99 [facility] Comment on above: Order Comment: Daríoi kaitlin Type: BLOOD SPECIMENOrdering Facility: [facility] Address: [address] [place] [address] Result Comment: The [place] [employer] (ADA) provides guidance for cutoff values for fasting glucose and random glucose. The ADA defines fasting as no caloric intake for at least 8 hours. Fasting plasma glucose results between 100 to 125 mg/dL indicate increased risk for diabetes (prediabetes).Fasting plasma glucose results greater than or equal to 126 mg/dL meet the criteria for diagnosis of diabetes. In the absence of unequivocal hyperglycemia, results should be confirmed by repeat testing. In a patient with classic symptoms of hyperglycemia or hyperglycemic crisis, random plasma glucose results greater than or equal to 200 mg/dL meet the criteria for diagnosis of diabetes.Reference: Standards of Medical Care in Diabetes 2016, [place] [employer]. Diabetes Care. 2016.39(Suppl 1). Performed By: #### 2 4321-2 ####[facility]ATORYCLIA [id number] [address] [place] Potassium [Moles/Vol] 4.1 mmol/L Normal 3.7-5.1 [facility] Comment on above: Order Comment: Speci men Type: BLOOD SPECIMENOrdering Facility: [facility] Address: [address] [place] [address] Performed By: #### 2 4321-2 ####[facility]ORYCLIA [id number] [address] [place] Sodium [Moles/Vol] 142 mmol/L Normal 136-144 [facility] Comment on above: Order Comment: Speci men Type: BLOOD SPECIMENOrdering Facility: [facility] Address: [address] [place] [address] Performed By: #### 2 4321-2 ####[facility]ATORYCLIA [id number] [place] [address] [place] Urea nitrogen [Mass/Vol] 83 mg/dL High 9-24 [facility] Comment on above: Order Comment: Speci men Type: BLOOD SPECIMENOrdering Facility: [facility] Address: [address] [place] [address] Performed By: #### 2 4321-2 ####[facility]ORYCLIA [id number] [address] [place] CASE MANAGEMon 12-22-2024 CASE MANAGEM Normal [facility] CBC panel Auto (Bld)on 12-22 Erythrocyte distribution width (RBC) [Ratio] 15.0 % Normal 11.5-15.0 [facility] Comment on above: Order Comment: Speci men Type: BLOOD SPECIMENOrdering Facility: [facility] Address: [address] [place] [address] Performed By: #### 5 8410-2 ####[facility]ATORYCLIA [id number] [address] OF [facility] Hematocrit (Bld) [Volume fraction] 28.5 % Low 39.0-51.0 [facility] Comment on above: Order Comment: Speci men Type: BLOOD SPECIMENOrdering Facility: [facility] Address: [address] [place] [address] Performed By: #### 5 8410-2 ####[facility]ORYCLIA [id number] [address] STATES OF [facility] Hemoglobin (Bld) [Mass/Vol] 9.0 g/dL Low 13.0-17.0 [facility] Comment on above: Order Comment: Speci men Type: BLOOD SPECIMENOrdering Facility: [facility] Address: [address] [place] [address] Performed By: #### 5 8410-2 ####[facility]ATORYCLIA [id number] [address] [place] MCH (RBC) [Entitic mass] 30.2 pg Normal 26.0-34.0 [facility] Comment on above: Order Comment: Speci men Type: BLOOD SPECIMENOrdering Facility: [facility] Address: [address] [place] [address] Performed By: #### 5 8410-2 ####[facility]ATORYCLIA [id number] [address] [place] MCHC (RBC) [Mass/Vol] 31.6 g/dL Normal 30.5-36.0 [facility] Comment on above: Order Comment: Speci men Type: BLOOD SPECIMENOrdering Facility: [facility] Address: [address] [place] [address] Performed By: #### 5 8410-2 ####[facility]ATORYCLIA [id number] [address] MCV (RBC) [Entitic vol] 95.6 fL Normal 80.0-100.0 [facility] Comment on above: Order Comment: Speci men Type: BLOOD SPECIMENOrdering Facility: [facility] Address: [address] [place] [address] Performed By: #### 5 8410-2 ####[facility]ATORYCLIA [id number] [address] [place] Nucleated RBC (Bld) [#/Vol] 10*3/uL Normal <0.01 [facility] Comment on above: Order Comment: Speci men Type: BLOOD SPECIMENOrdering Facility: [facility] Address: [address] [place] [address] Performed By: #### 5 8410-2 ####[facility]ATORYCLIA [id number] [address] Platelet mean volume (Bld) [Entitic vol] 11.4 fL Normal 9.0-12.7 [facility] Comment on above: Order Comment: Speci men Type: BLOOD SPECIMENOrdering Facility: [facility] Address: [address] [place] [address] Performed By: #### 5 8410-2 ####[facility]ATORYCLIA [id number] [address] Platelets (Bld) [#/Vol] 408 10*3/uL High 150-400 [facility] Comment on above: Order Comment: Speci men Type: BLOOD SPECIMENOrdering Facility: [facility] Address: [address] [place] [address] Performed By: #### 5 8410-2 ####[facility]ORYCLIA [id number] [address] [place] RBC (Bld) [#/Vol] 2.98 10*6/uL Low 4.20-6.00 [facility] Comment on above: Order Comment: Speci men Type: BLOOD SPECIMENOrdering Facility: [facility] Address: [address] [place] [address] Performed By: #### 5 8410-2 ####[facility]ATORYCLIA [id number] [place] [address] [place] WBC (Bld) [#/Vol] 8.71 10*3/uL Normal 3.70-11.00 [facility] Comment on above: Order Comment: Speci men Type: BLOOD SPECIMENOrdering Facility: [facility] Address: [address] [place] [address] Performed By: #### 5 8410-2 ####[facility]ATORYCLIA [id number] [address] [place] CONSULT PROGon 12-22-2024 CONSULT PROG Normal [facility] THERAPY NTon 12-22-2024 THERAPY NT Normal [facility] THERAPY NT Normal [facility] XR MOD BARIUM SWALLOW W SPEE Jose 12-22-2024 XR MOD BARIUM SWALLOW W SPEECH Normal [facility] Basic metabolic 2000 panelon 12-21-2024 Anion gap [Moles/Vol] 13 mmol/L Normal 8-15 [facility] Comment on above: Order Comment: Speci men Type: BLOOD SPECIMENOrdering Facility: [facility] Address: [address] [place] [address] Performed By: #### 1 4338-8, 16076-0, 5195-3 ####[facility]ATORYCLIA [id number] [place] [address] [place] Calcium [Mass/Vol] 8.9 mg/dL Normal 8.5-10.2 [facility] Comment on above: Order Comment: Speci men Type: BLOOD SPECIMENOrdering Facility: [facility] Address: [address] [place] [address] Performed By: #### 1 4338-8, 88772-1, 5195-3 ####[facility]ORYCLIA [id number] [address] [place] Chloride [Moles/Vol] 109 mmol/L High 98-107 [facility] Comment on above: Order Comment: Speci men Type: BLOOD SPECIMENOrdering Facility: [facility] Address: [address] [place] [address] Performed By: #### 1 4338-8, 62425-8, 5195-3 ####[facility]ORYCLIA [id number] [place] [address] [place] CO2 [Moles/Vol] 24 mmol/L Normal 22-30 [facility] Comment on above: Order Comment: Speci men Type: BLOOD SPECIMENOrdering Facility: [facility] Address: [address] [place] [address] Performed By: #### 1 4338-8, 27884-5, 5195-3 ####[facility]ORYCLIA [id number] [address] STATES OF [facility] Creatinine [Mass/Vol] 3.11 mg/dL High 0.73-1.22 [facility] Comment on above: Order Comment: Speci men Type: BLOOD SPECIMENOrdering Facility: [facility] Address: [address] [place] [address] Performed By: #### 1 4338-8, 23267-4, 5195-3 ####[facility]ORYCLIA [id number] [address] Creatinine and Glomerular filtration rate.predicted panel (S/P/Bld) 20 mL/min/1.73m??? Low >=60 [facility] Comment on above: Order Comment: Speci men Type: BLOOD SPECIMENOrdering Facility: [facility] Address: [address] [place] [address] Result Comment: Eli mated Glomerular Filtration Rate (eGFR) is calculated using the 2020 CKD-EPI creatinine equation. This equation utilizes serum creatinine, sex, and age as parameters. The creatinine assay has traceable calibration to isotope dilution-mass spectrometry. Refer to KDIGO guidelines for clinical interpretation. In patients with unstable renal function, e.g. those with acute kidney injury, the eGFR may not accurately reflect actual GFR. Performed By: #### 1 4338-8, 37273-3, 5195-3 ####[facility]ATORYCLIA [id number] [place] [id number] [place] Glucose [Mass/Vol] 149 mg/dL High 74-99 [facility] Comment on above: Order Comment: Speci men Type: BLOOD SPECIMENOrdering Facility: [facility] Address: [address] [place] [address] Result Comment: The [place] Diabetes [employer] (ADA) provides guidance for cutoff values for fasting glucose and random glucose. The ADA defines fasting as no caloric intake for at least 8 hours. Fasting plasma glucose results between 100 to 125 mg/dL indicate increased risk for diabetes (prediabetes).Fasting plasma glucose results greater than or equal to 126 mg/dL meet the criteria for diagnosis of diabetes. In the absence of unequivocal hyperglycemia, results should be confirmed by repeat testing. In a patient with classic symptoms of hyperglycemia or hyperglycemic crisis, random plasma glucose results greater than or equal to 200 mg/dL meet the criteria for diagnosis of diabetes.Reference: Standards of Medical Care in Diabetes 2016, [place] [employer]. Diabetes Care. 2016.39(Suppl 1). Performed By: #### 1 4338-8, 29026-8, 5-3 ####[facility]ATORYCLIA [id number] [place] [address] [place] Potassium [Moles/Vol] 4.2 mmol/L Normal 3.7-5.1 [facility] Comment on above: Order Comment: Speci men Type: BLOOD SPECIMENOrdering Facility: [facility] Address: [address] [place] [address] Performed By: #### 1 4338-8, 24629-8, 5195-3 ####[facility]ATORYCLIA [id number] [place] [id number] [place] Sodium [Moles/Vol] 146 mmol/L High 136-144 [facility] Comment on above: Order Comment: Speci men Type: BLOOD SPECIMENOrdering Facility: [facility] Address: [address] [place] [address] Performed By: #### 1 4338-8, 81527-0, 5195-3 ####[facility]ATORYCLIA [id number] [address] STATES [facility] Urea nitrogen [Mass/Vol] 139 mg/dL High 9-24 [facility] Comment on above: Order Comment: Speci men Type: BLOOD SPECIMENOrdering Facility: [facility] Address: [address] [place] [address] Performed By: #### 1 4338-8, 49372-1, 5195-3 ####[facility]ATORYCLIA [id number] [address] OF [facility] CBC panel Auto (Bld)on 12-21 Erythrocyte distribution width (RBC) [Ratio] 14.9 % Normal 11.5-15.0 [facility] Comment on above: Order Comment: Speci men Type: BLOOD SPECIMENOrdering Facility: [facility] Address: [address] [place] [address] Performed By: #### 5 8410-2 ####[facility]ATORYCLIA [id number] [address] Hematocrit (Bld) [Volume fraction] 27.9 % Low 39.0-51.0 [facility] Comment on above: Order Comment: Speci men Type: BLOOD SPECIMENOrdering Facility: [facility] Address: [address] [place] [address] Performed By: #### 5 8410-2 ####[facility]ATORYCLIA [id number] [address] Hemoglobin (Bld) [Mass/Vol] 8.6 g/dL Low 13.0-17.0 [facility] Comment on above: Order Comment: Speci men Type: BLOOD SPECIMENOrdering Facility: [facility] Address: [address] [place] [address] Performed By: #### 5 8410-2 ####[facility]ATORYCLIA [id number] [address] MCH (RBC) [Entitic mass] 29.7 pg Normal 26.0-34.0 [facility] Comment on above: Order Comment: Speci men Type: BLOOD SPECIMENOrdering Facility: [facility] Address: [address] [place] [address] Performed By: #### 5 8410-2 ####[facility]ATORYCLIA [id number] [address] STATES OF [facility] MCHC (RBC) [Mass/Vol] 30.8 g/dL Normal 30.5-36.0 [facility] Comment on above: Order Comment: Speci men Type: BLOOD SPECIMENOrdering Facility: [facility] Address: [address] [place] [address] Performed By: #### 5 8410-2 ####[facility]ORYCLIA [id number] [address] [place] MCV (RBC) [Entitic vol] 96.2 fL Normal 80.0-100.0 [facility] Comment on above: Order Comment: Speci men Type: BLOOD SPECIMENOrdering Facility: [facility] Address: [address] [place] [address] Performed By: #### 5 8410-2 ####[facility]ATORYCLIA [id number] [address] Nucleated RBC (Bld) [#/Vol] 10*3/uL Normal <0.01 [facility] Comment on above: Order Comment: Speci men Type: BLOOD SPECIMENOrdering Facility: [facility] Address: [address] [place] [address] Performed By: #### 5 8410-2 ####[facility]ATORYCLIA [id number] [address] Platelet mean volume (Bld) [Entitic vol] 11.7 fL Normal 9.0-12.7 [facility] Comment on above: Order Comment: Speci men Type: BLOOD SPECIMENOrdering Facility: [facility] Address: [address] [place] [address] Performed By: #### 5 8410-2 ####[facility]ATORYCLIA [id number] [address] [place] Platelets (Bld) [#/Vol] 442 10*3/uL High 150-400 [facility] Comment on above: Order Comment: Speci men Type: BLOOD SPECIMENOrdering Facility: [facility] Address: [address] [place] [address] Performed By: #### 5 8410-2 ####[facility]ORYCLIA [id number] [address] [place] RBC (Bld) [#/Vol] 2.90 10*6/uL Low 4.20-6.00 [facility] Comment on above: Order Comment: Speci men Type: BLOOD SPECIMENOrdering Facility: [facility] Address: [address] [place] [address] Performed By: #### 5 8410-2 ####[facility] [id number] [address] WBC (Bld) [#/Vol] 10.74 10*3/uL Normal 3.70-11.00 [facility] Comment on above: Order Comment: Speci men Type: BLOOD SPECIMENOrdering Facility: [facility] Address: [address] [place] [address] Performed By: #### 5 8410-2 ####[facility]ORYCLIA [id number] [address] HBV surface Ag Ser Qlon 11-24 HBV surface Ag Ql (S) Non-Reactive Normal Nonreactive [facility] Comment on above: Order Comment: Speci men Type: BLOOD SPECIMENOrdering Facility: [facility] Address: [address] [place] [address] Performed By: #### 1 4338-8, 20633-0, 5195-3 ####[facility]ORYCLIA [id number] [address] [place] NURSING PROGon 12-21-2024 NURSING PROG Normal [facility] NURSING PROG Normal [facility] NURSING PROG Normal [facility] OPERATIVE NOon 12-21-2024 OPERATIVE NO Normal [facility] Prealbumin [Mass/Vol]on 11-24 Prealbumin Nephelometry [Mass/Vol] 23 mg/dL Normal 17-36 [facility] Comment on above: Order Comment: Speci men Type: BLOOD SPECIMENOrdering Facility: [facility] Address: [address] [place] [address] Performed By: #### 1 4338-8, 18654-5, 5195-3 ####[facility]ATORYCLIA [id number] [place] [address] [place] THERAPY NTon 12-21-2024 THERAPY NT Normal [facility] ALLIED HEALTHon 12-20-2024 ALLIED HEALTH Normal [facility] Basic metabolic 2000 panelon 12-20-2024 Anion gap [Moles/Vol] 11 mmol/L Normal 8-15 [facility] Comment on above: Order Comment: Speci men Type: BLOOD SPECIMENOrdering Facility: [facility] Address: [address] [place] [address] Performed By: #### 2 4321-2 ####[facility]ATORYCLIA [id number] [place] [address] [place] Calcium [Mass/Vol] 8.9 mg/dL Normal 8.5-10.2 [facility] Comment on above: Order Comment: Speci men Type: BLOOD SPECIMENOrdering Facility: [facility] Address: [address] [place] [address] Performed By: #### 2 4321-2 ####[facility]ATORYCLIA [id number] [place] [address] [place] Chloride [Moles/Vol] 111 mmol/L High 98-107 [facility] Comment on above: Order Comment: Speci men Type: BLOOD SPECIMENOrdering Facility: [facility] Address: [address] [place] [address] Performed By: #### 2 4321-2 ####[facility]ORYCLIA [id number] [address] STATES OF [facility] CO2 [Moles/Vol] 27 mmol/L Normal 22-30 [facility] Comment on above: Order Comment: Speci men Type: BLOOD SPECIMENOrdering Facility: [facility] Address: [address] [place] [address] Performed By: #### 2 4321-2 ####[facility]ORYCLIA [id number] [address] [place] Creatinine [Mass/Vol] 3.03 mg/dL High 0.73-1.22 [facility] Comment on above: Order Comment: Speci men Type: BLOOD SPECIMENOrdering Facility: [facility] Address: [address] [place] [address] Performed By: #### 2 4321-2 ####[facility]ATORYCLIA [id number] [address] Creatinine and Glomerular filtration rate.predicted panel (S/P/Bld) 20 mL/min/1.73m??? Low >=60 [facility] Comment on above: Order Comment: Speci men Type: BLOOD SPECIMENOrdering Facility: [facility] Address: [address] [place] [address] Result Comment: Eli mated Glomerular Filtration Rate (eGFR) is calculated using the 2020 CKD-EPI creatinine equation. This equation utilizes serum creatinine, sex, and age as parameters. The creatinine assay has traceable calibration to isotope dilution-mass spectrometry. Refer to KDIGO guidelines for clinical interpretation. In patients with unstable renal function, e.g. those with acute kidney injury, the eGFR may not accurately reflect actual GFR. Performed By: #### 2 4321-2 ####[facility]ORYCLIA [id number] [address] STATES OF [facility] Glucose [Mass/Vol] 83 mg/dL Normal 74-99 [facility] Comment on above: Order Comment: Speci men Type: BLOOD SPECIMENOrdering Facility: [facility] Address: [address] [place] [address] Result Comment: The [place] [employer] (ADA) provides guidance for cutoff values for fasting glucose and random glucose. The ADA defines fasting as no caloric intake for at least 8 hours. Fasting plasma glucose results between 100 to 125 mg/dL indicate increased risk for diabetes (prediabetes).Fasting plasma glucose results greater than or equal to 126 mg/dL meet the criteria for diagnosis of diabetes. In the absence of unequivocal hyperglycemia, results should be confirmed by repeat testing. In a patient with classic symptoms of hyperglycemia or hyperglycemic crisis, random plasma glucose results greater than or equal to 200 mg/dL meet the criteria for diagnosis of diabetes.Reference: Standards of Medical Care in Diabetes 2016, [place] [employer]. Diabetes Care. 2016.39(Suppl 1). Performed By: #### 2 4321-2 ####[facility]ATORYCLIA [id number] [place] [address] [place] Potassium [Moles/Vol] 4.0 mmol/L Normal 3.7-5.1 [facility] Comment on above: Order Comment: Speci men Type: BLOOD SPECIMENOrdering Facility: [facility] Address: [address] [place] [address] Performed By: #### 2 4321-2 ####[facility]ATORYCLIA [id number] [place] [address] [place] Sodium [Moles/Vol] 149 mmol/L High 136-144 [facility] Comment on above: Order Comment: Speci men Type: BLOOD SPECIMENOrdering Facility: [facility] Address: [address] [place] [address] Performed By: #### 2 4321-2 ####[facility]ORATORYCLIA [id number] [place] [address] [place] Urea nitrogen [Mass/Vol] 146 mg/dL High 9-24 [facility] Comment on above: Order Comment: Speci men Type: BLOOD SPECIMENOrdering Facility: [facility] Address: [address] [place] [address] Performed By: #### 2 4321-2 ####[facility] LABORATORYCLIA [id number] [place] [address] [place] Anion gap [Moles/Vol] 13 mmol/L Normal 8-15 [facility] Comment on above: Order Comment: Speci men Type: BLOOD SPECIMENOrdering Facility: [facility] Address: [address] [place] [address] Performed By: #### 2 4321-2 ####[facility]ATORYCLIA [id number] [place] [address] [place] Calcium [Mass/Vol] 9.4 mg/dL Normal 8.5-10.2 [facility] Comment on above: Order Comment: Speci men Type: BLOOD SPECIMENOrdering Facility: [facility] Address: [address] [place] [address] Performed By: #### 2 4321-2 ####[facility]ATORYCLIA [id number] [place] [address] [place] Chloride [Moles/Vol] 106 mmol/L Normal 98-107 [facility] Comment on above: Order Comment: Speci men Type: BLOOD SPECIMENOrdering Facility: [facility] Address: [address] [place] [address] Performed By: #### 2 4321-2 ####[facility]ATORYCLIA [id number] [place] [address] [place] CO2 [Moles/Vol] 25 mmol/L Normal 22-30 [facility] Comment on above: Order Comment: Speci men Type: BLOOD SPECIMENOrdering Facility: [facility] Address: [address] [place] [address] Performed By: #### 2 4321-2 ####[facility]ATORYCLIA [id number] [place] [address] [place] Creatinine [Mass/Vol] 3.03 mg/dL High 0.73-1.22 [facility] Comment on above: Order Comment: Speci men Type: BLOOD SPECIMENOrdering Facility: [facility] Address: [address] [place] [address] Performed By: #### 2 4321-2 ####[facility]ATORYCLIA [id number] [place] [address] [place] Creatinine and Glomerular filtration rate.predicted panel (S/P/Bld) 20 mL/min/1.73m??? Low >=60 [facility] Comment on above: Order Comment: Stuart madrigal Type: BLOOD SPECIMENOrdering Facility: [facility] Address: [address] [place] [address] Result Comment: Eli mated Glomerular Filtration Rate (eGFR) is calculated using the 2020 CKD-EPI creatinine equation. This equation utilizes serum creatinine, sex, and age as parameters. The creatinine assay has traceable calibration to isotope dilution-mass spectrometry. Refer to KDIGO guidelines for clinical interpretation. In patients with unstable renal function, e.g. those with acute kidney injury, the eGFR may not accurately reflect actual GFR. Performed By: #### 2 4321-2 ####[facility]ATORYCLIA [id number] [place] [address] [place] Glucose [Mass/Vol] 189 mg/dL High 74-99 [facility] Comment on above: Order Comment: Stuart madrigal Type: BLOOD SPECIMENOrdering Facility: [facility] Address: [address] [place] [address] Result Comment: The [place] Diabetes [employer] (ADA) provides guidance for cutoff values for fasting glucose and random glucose. The ADA defines fasting as no caloric intake for at least 8 hours. Fasting plasma glucose results between 100 to 125 mg/dL indicate increased risk for diabetes (prediabetes).Fasting plasma glucose results greater than or equal to 126 mg/dL meet the criteria for diagnosis of diabetes. In the absence of unequivocal hyperglycemia, results should be confirmed by repeat testing. In a patient with classic symptoms of hyperglycemia or hyperglycemic crisis, random plasma glucose results greater than or equal to 200 mg/dL meet the criteria for diagnosis of diabetes.Reference: Standards of Medical Care in Diabetes 2016, [place] [employer]. Diabetes Care. 2016.39(Suppl 1). Performed By: #### 2 4321-2 ####[facility]ATORYCLIA [id number] [place] [id number] [place] Potassium [Moles/Vol] 3.8 mmol/L Normal 3.7-5.1 [facility] Comment on above: Order Comment: Stuart madrigal Type: BLOOD SPECIMENOrdering Facility: [facility] Address: [address] [place] [address] Performed By: #### 2 4321-2 ####[facility]ATORYCLIA [id number] [address] Sodium [Moles/Vol] 144 mmol/L Normal 136-144 [facility] Comment on above: Order Comment: Speci men Type: BLOOD SPECIMENOrdering Facility: [facility] Address: [address] [place] [address] Performed By: #### 2 4321-2 ####[facility]ATORYCLIA [id number] [address] [place] Urea nitrogen [Mass/Vol] 136 mg/dL High 9-24 [facility] Comment on above: Order Comment: Speci men Type: BLOOD SPECIMENOrdering Facility: [facility] Address: [address] [place] [address] Performed By: #### 2 4321-2 ####[facility]ATORYCLIA [id number] [address] CBC panel Auto (Bld)on 12-20 Erythrocyte distribution width (RBC) [Ratio] 14.6 % Normal 11.5-15.0 [facility] Comment on above: Order Comment: Speci men Type: BLOOD SPECIMENOrdering Facility: [facility] Address: [address] [place] [address] Performed By: #### 5 8410-2 ####[facility]ATORYCLIA [id number] [address] Hematocrit (Bld) [Volume fraction] 27.0 % Low 39.0-51.0 [facility] Comment on above: Order Comment: Speci men Type: BLOOD SPECIMENOrdering Facility: [facility] Address: [address] [place] [address] Performed By: #### 5 8410-2 ####[facility]ATORYCLIA [id number] [address] Hemoglobin (Bld) [Mass/Vol] 8.7 g/dL Low 13.0-17.0 [facility] Comment on above: Order Comment: Speci men Type: BLOOD SPECIMENOrdering Facility: [facility] Address: [address] [place] [address] Performed By: #### 5 8410-2 ####[facility]ATORYCLIA [id number] [address] OF [facility] MCH (RBC) [Entitic mass] 29.8 pg Normal 26.0-34.0 [facility] Comment on above: Order Comment: Speci men Type: BLOOD SPECIMENOrdering Facility: [facility] Address: [address] [place] [address] Performed By: #### 5 8410-2 ####[facility]ATORYCLIA [id number] [address] MCHC (RBC) [Mass/Vol] 32.2 g/dL Normal 30.5-36.0 [facility] Comment on above: Order Comment: Speci men Type: BLOOD SPECIMENOrdering Facility: [facility] Address: [address] [place] [address] Performed By: #### 5 8410-2 ####[facility]ATORYCLIA [id number] [address] MCV (RBC) [Entitic vol] 92.5 fL Normal 80.0-100.0 [facility] Comment on above: Order Comment: Speci men Type: BLOOD SPECIMENOrdering Facility: [facility] Address: [address] [place] [address] Performed By: #### 5 8410-2 ####[facility]ATORYCLIA [id number] [address] Nucleated RBC (Bld) [#/Vol] 10*3/uL Normal <0.01 [facility] Comment on above: Order Comment: Speci men Type: BLOOD SPECIMENOrdering Facility: [facility] Address: [address] [place] [address] Performed By: #### 5 8410-2 ####[facility]ATORYCLIA [id number] [address] [place] Platelet mean volume (Bld) [Entitic vol] 11.8 fL Normal 9.0-12.7 [facility] Comment on above: Order Comment: Speci men Type: BLOOD SPECIMENOrdering Facility: [facility] Address: [address] [place] [address] Performed By: #### 5 8410-2 ####[facility]ATORYCLIA [id number] [place] [address] [place] Platelets (Bld) [#/Vol] 437 10*3/uL High 150-400 [facility] Comment on above: Order Comment: Speci men Type: BLOOD SPECIMENOrdering Facility: [facility] Address: [address] [place] [address] Performed By: #### 5 8410-2 ####[facility]ATORYCLIA [id number] [place] [address] [place] RBC (Bld) [#/Vol] 2.92 10*6/uL Low 4.20-6.00 [facility] Comment on above: Order Comment: Speci men Type: BLOOD SPECIMENOrdering Facility: [facility] Address: [address] [place] [address] Performed By: #### 5 8410-2 ####[facility]ATORYCLIA [id number] [place] [address] [place] WBC (Bld) [#/Vol] 11.66 10*3/uL High 3.70-11.00 [facility] Comment on above: Order Comment: Speci men Type: BLOOD SPECIMENOrdering Facility: [facility] Address: [address] [place] [address] Performed By: #### 5 8410-2 ####[facility]ATORYCLIA [id number] [address] [place] CONSULT PROGon 12-20-2024 CONSULT PROG Normal [facility] CT ABD/PEL WO IVCONon 2024 CT ABD/PEL WO IVCON Normal [facility] CT BRAIN WO IVCONon 12-21-19 CT BRAIN WO IVCON Normal [facility] CT CHEST WO IVCONon 12-21-19 CT CHEST WO IVCON Normal [facility] Gas and Carbon monoxide pane l (BldV)on 12-20-2024 Base excess Calc (BldV) [Moles/Vol] 2 mmol/L Normal 0-2 [facility] Comment on above: Order Comment: Speci men Type: VENOUS BLOOD SPECIMENOrdering Facility: [facility] Address: [address] [place] [address] Performed By: #### 2 4344-4 ####[facility]ATORYCLIA [id number] [address] Body temperature 98.6 [degF] Normal [facility] Comment on above: Order Comment: Speci men Type: VENOUS BLOOD SPECIMENOrdering Facility: [facility] Address: [address] [place] [address] Performed By: #### 2 4344-4 ####[facility]ATORYCLIA [id number] [address] [place] Calcium.ionized (BldV) [Mass/Vol] 1.30 mmol/L Normal 1.08-1.30 [facility] Comment on above: Order Comment: Speci men Type: VENOUS BLOOD SPECIMENOrdering Facility: [facility] Address: [address] [place] [address] Performed By: #### 2 4344-4 ####[facility]ORYCLIA [id number] [address] [place] Calcium.ionized adjusted to pH 7.4 (BldA) [Moles/Vol] 1.31 mmol/L High 1.08-1.30 [facility] Comment on above: Order Comment: Speci men Type: VENOUS BLOOD SPECIMENOrdering Facility: [facility] Address: [address] [place] [address] Performed By: #### 2 4344-4 ####[facility]ATORYCLIA [id number] [address] [place] Carboxyhemoglobin (BldV) [Mass fraction] 2.7 % High 0.0-2.0 [facility] Comment on above: Order Comment: Speci men Type: VENOUS BLOOD SPECIMENOrdering Facility: [facility] Address: [address] [place] [address] Result Comment: Carb oxyhemoglobin Reference Range for Smokers: 2.0-8.0% Performed By: #### 2 4344-4 ####[facility]ORATORYCLIA [id number] [place] [address] [place] Chloride [Moles/Vol] 109 mmol/L High 97-105 [facility] Comment on above: Order Comment: Speci men Type: VENOUS BLOOD SPECIMENOrdering Facility: [facility] Address: [address] [place] [address] Performed By: #### 2 4344-4 ####[facility]ATORYCLIA [id number] [address] [place] CO2 (BldV) [Partial pressure] 41 mm[Hg] Low 42-55 [facility] Comment on above: Order Comment: Speci men Type: VENOUS BLOOD SPECIMENOrdering Facility: [facility] Address: [address] [place] [address] Performed By: #### 2 4344-4 ####[facility]ATORYCLIA [id number] [place] [address] [place] Glucose [Mass/Vol] 271 mg/dL High 60-105 [facility] Comment on above: Order Comment: Speci men Type: VENOUS BLOOD SPECIMENOrdering Facility: [facility] Address: [address] [place] [address] Performed By: #### 2 4344-4 ####[facility]ATORYCLIA [id number] [place] [address] [place] HCO3 (Bld) [Moles/Vol] 26 mmol/L Normal 24-28 [facility] Comment on above: Order Comment: Speci men Type: VENOUS BLOOD SPECIMENOrdering Facility: [facility] Address: [address] [place] [address] Performed By: #### 2 4344-4 ####[facility]ATORYCLIA [id number] [address] STATES OF [facility] Hematocrit (Bld) [Volume fraction] 27.6 % Low 39.0-51.0 [facility] Comment on above: Order Comment: Speci men Type: VENOUS BLOOD SPECIMENOrdering Facility: [facility] Address: [address] [place] [address] Performed By: #### 2 4344-4 ####[facility]ATORYCLIA [id number] [address] [place] Hemoglobin (Bld) [Mass/Vol] 8.9 g/dL Low 13.0-17.0 [facility] Comment on above: Order Comment: Speci men Type: VENOUS BLOOD SPECIMENOrdering Facility: [facility] Address: [address] [place] [address] Performed By: #### 2 4344-4 ####[facility]ATORYCLIA [id number] [address] STATES [facility] Lactate [Moles/Vol] 1.1 mmol/L Normal 0.5-2.2 [facility] Comment on above: Order Comment: Speci men Type: VENOUS BLOOD SPECIMENOrdering Facility: [facility] Address: [address] [place] [address] Performed By: #### 2 4344-4 ####[facility]ATORYCLIA [id number] [address] [place] Methemoglobin (Bld) [Mass fraction] 0.8 % Normal 0.0-1.5 [facility] Comment on above: Order Comment: Speci men Type: VENOUS BLOOD SPECIMENOrdering Facility: [facility] Address: [address] [place] [address] Performed By: #### 2 4344-4 ####[facility]ORATORYCLIA [id number] [address] [place] O2 THERAPY RA=Room Air Normal [facility] Comment on above: Order Comment: Speci men Type: VENOUS BLOOD SPECIMENOrdering Facility: [facility] Address: [address] [place] [address] Performed By: #### 2 4344-4 ####[facility]ATORYCLIA [id number] [address] [place] Oxygen (BldV) [Partial pressure] 193 mm[Hg] High 35-45 [facility] Comment on above: Order Comment: Speci men Type: VENOUS BLOOD SPECIMENOrdering Facility: [facility] Address: [address] [place] [address] Performed By: #### 2 4344-4 ####[facility]ATORYCLIA [id number] [address] Oxygen saturation in Venous blood 100 % High 60-85 [facility] Comment on above: Order Comment: Speci men Type: VENOUS BLOOD SPECIMENOrdering Facility: [facility] Address: [address] [place] [address] Performed By: #### 2 4344-4 ####[facility]ATORYCLIA [id number] [address] [place] Oxyhemoglobin (BldV) [Mass fraction] 96 % High 60-85 [facility] Comment on above: Order Comment: Speci men Type: VENOUS BLOOD SPECIMENOrdering Facility: [facility] Address: [address] [place] [address] Performed By: #### 2 4344-4 ####[facility]ATORYCLIA [id number] [place] [address] [place] pH (BldV) 7.42 [pH] Normal 7.32-7.42 [facility] Comment on above: Order Comment: Speci men Type: VENOUS BLOOD SPECIMENOrdering Facility: [facility] Address: [address] [place] [address] Performed By: #### 2 4344-4 ####[facility]ATORYCLIA [id number] [place] [address] [place] Potassium [Moles/Vol] 3.9 mmol/L Normal 3.5-5.0 [facility] Comment on above: Order Comment: Speci men Type: VENOUS BLOOD SPECIMENOrdering Facility: [facility] Address: [address] [place] [address] Performed By: #### 2 4344-4 ####[facility]ORYCLIA [id number] [place] [address] [place] Sodium [Moles/Vol] 147 mmol/L High 136-144 [facility] Comment on above: Order Comment: Speci men Type: VENOUS BLOOD SPECIMENOrdering Facility: [facility] Address: [address] [place] [address] Performed By: #### 2 4344-4 ####[facility]ATORYCLIA [id number] [address] [place] NURSING PROGon 12-20-2024 NURSING PROG Normal [facility] NURSING PROG Normal [facility] THERAPY NTon 12-20-2024 THERAPY NT Normal [facility] Basic metabolic 2000 panelon 12-19-2024 Anion gap [Moles/Vol] 12 mmol/L Normal 8-15 [facility] Comment on above: Order Comment: Speci men Type: BLOOD SPECIMENOrdering Facility: [facility] Address: [address] [place] [address] Performed By: #### 2 4321-2 ####[facility]ATORYCLIA [id number] [place] [address] [place] Calcium [Mass/Vol] 9.7 mg/dL Normal 8.5-10.2 [facility] Comment on above: Order Comment: Speci men Type: BLOOD SPECIMENOrdering Facility: [facility] Address: [address] [place] [address] Performed By: #### 2 4321-2 ####[facility]ATORYCLIA [id number] [place] [address] [place] Chloride [Moles/Vol] 103 mmol/L Normal 98-107 [facility] Comment on above: Order Comment: Speci men Type: BLOOD SPECIMENOrdering Facility: [facility] Address: [address] [place] [address] Performed By: #### 2 4321-2 ####[facility]ATORYCLIA [id number] [place] [id number] [place] CO2 [Moles/Vol] 26 mmol/L Normal 22-30 [facility] Comment on above: Order Comment: Speci men Type: BLOOD SPECIMENOrdering Facility: [facility] Address: [address] [place] [address] Performed By: #### 2 4321-2 ####[facility]ATORYCLIA [id number] [address] [place] Creatinine [Mass/Vol] 3.04 mg/dL High 0.73-1.22 [facility] Comment on above: Order Comment: Speci men Type: BLOOD SPECIMENOrdering Facility: [facility] Address: [address] [place] [address] Performed By: #### 2 4321-2 ####[facility]ATORYCLIA [id number] [address] Creatinine and Glomerular filtration rate.predicted panel (S/P/Bld) 20 mL/min/1.73m??? Low >=60 [facility] Comment on above: Order Comment: Speci men Type: BLOOD SPECIMENOrdering Facility: [facility] Address: [address] [place] [address] Result Comment: Eli mated Glomerular Filtration Rate (eGFR) is calculated using the 2020 CKD-EPI creatinine equation. This equation utilizes serum creatinine, sex, and age as parameters. The creatinine assay has traceable calibration to isotope dilution-mass spectrometry. Refer to KDIGO guidelines for clinical interpretation. In patients with unstable renal function, e.g. those with acute kidney injury, the eGFR may not accurately reflect actual GFR. Performed By: #### 2 4321-2 ####[facility]ATORYCLIA [id number] [address] OF [facility] Glucose [Mass/Vol] 246 mg/dL High 74-99 [facility] Comment on above: Order Comment: Speci men Type: BLOOD SPECIMENOrdering Facility: [facility] Address: [address] [place] [address] Result Comment: The [place] [employer] (ADA) provides guidance for cutoff values for fasting glucose and random glucose. The ADA defines fasting as no caloric intake for at least 8 hours. Fasting plasma glucose results between 100 to 125 mg/dL indicate increased risk for diabetes (prediabetes).Fasting plasma glucose results greater than or equal to 126 mg/dL meet the criteria for diagnosis of diabetes. In the absence of unequivocal hyperglycemia, results should be confirmed by repeat testing. In a patient with classic symptoms of hyperglycemia or hyperglycemic crisis, random plasma glucose results greater than or equal to 200 mg/dL meet the criteria for diagnosis of diabetes.Reference: Standards of Medical Care in Diabetes 2016, [place] [employer]. Diabetes Care. 2016.39(Suppl 1). Performed By: #### 2 4321-2 ####[facility]ATORYCLIA [id number] [place] [address] [place] Potassium [Moles/Vol] 3.9 mmol/L Normal 3.7-5.1 [facility] Comment on above: Order Comment: Speci men Type: BLOOD SPECIMENOrdering Facility: [facility] Address: [address] [place] [address] Performed By: #### 2 1-2 ####[facility] LABORATORYIA [id number] [place] [address] [place] Sodium [Moles/Vol] 141 mmol/L Normal 136-144 [facility] Comment on above: Order Comment: Speci men Type: BLOOD SPECIMENOrdering Facility: [facility] Address: [address] [place] [address] Performed By: #### 2 1-2 ####[facility]ATORYCLIA [id number] [place] [address] [place] Urea nitrogen [Mass/Vol] 124 mg/dL High 9-24 [facility] Comment on above: Order Comment: Speci men Type: BLOOD SPECIMENOrdering Facility: [facility] Address: [address] [place] [address] Performed By: #### 2 1-2 ####[facility]ATORYCLIA [id number] [address] [place] CASE MANAGEMon 12-19-2024 CASE MANAGEM Normal [facility] CBC panel Auto (Bld)on 12-19 Erythrocyte distribution width (RBC) [Ratio] 13.8 % Normal 11.5-15.0 [facility] Comment on above: Order Comment: Speci men Type: BLOOD SPECIMENOrdering Facility: [facility] [facility] Address: [address] [place] [address] Performed By: #### 5 8410-2 ####[facility]ATORYCLIA [id number] [address] OF [facility] Hematocrit (Bld) [Volume fraction] 27.2 % Low 39.0-51.0 [facility] Comment on above: Order Comment: Speci men Type: BLOOD SPECIMENOrdering Facility: [facility] Address: [address] [place] [address] Performed By: #### 5 8410-2 ####[facility]ATORYCLIA [id number] [address] [place] Hemoglobin (Bld) [Mass/Vol] 8.8 g/dL Low 13.0-17.0 [facility] Comment on above: Order Comment: Speci men Type: BLOOD SPECIMENOrdering Facility: [facility] Address: [address] [place] [address] Performed By: #### 5 8410-2 ####[facility]ORYCLIA [id number] [address] [place] MCH (RBC) [Entitic mass] 30.2 pg Normal 26.0-34.0 [facility] Comment on above: Order Comment: Speci men Type: BLOOD SPECIMENOrdering Facility: [facility] Address: [address] [place] [address] Performed By: #### 5 8410-2 ####[facility]ORYCLIA [id number] [address] [place] MCHC (RBC) [Mass/Vol] 32.4 g/dL Normal 30.5-36.0 [facility] Comment on above: Order Comment: Speci men Type: BLOOD SPECIMENOrdering Facility: [facility] Address: [address] [place] [address] Performed By: #### 5 8410-2 ####[facility]ORYCLIA [id number] [address] [place] MCV (RBC) [Entitic vol] 93.5 fL Normal 80.0-100.0 [facility] Comment on above: Order Comment: Speci men Type: BLOOD SPECIMENOrdering Facility: [facility] Address: [address] [place] [address] Performed By: #### 5 8410-2 ####[facility]ORYCLIA [id number] [address] [place] Nucleated RBC (Bld) [#/Vol] 0.02 10*3/uL High <0.01 [facility] Comment on above: Order Comment: Speci men Type: BLOOD SPECIMENOrdering Facility: [facility] Address: [address] [place] [address] Performed By: #### 5 8410-2 ####[facility]ORYCLIA [id number] [address] [place] Platelet mean volume (Bld) [Entitic vol] 11.5 fL Normal 9.0-12.7 [facility] Comment on above: Order Comment: Speci men Type: BLOOD SPECIMENOrdering Facility: [facility] Address: [address] [place] [address] Performed By: #### 5 8410-2 ####[facility]ORYCLIA [id number] [address] [place] Platelets (Bld) [#/Vol] 480 10*3/uL High 150-400 [facility] Comment on above: Order Comment: Speci men Type: BLOOD SPECIMENOrdering Facility: [facility] Address: [address] [place] [address] Performed By: #### 5 8410-2 ####[facility]ATORYCLIA [id number] [place] [address] [place] RBC (Bld) [#/Vol] 2.91 10*6/uL Low 4.20-6.00 [facility] Comment on above: Order Comment: Speci men Type: BLOOD SPECIMENOrdering Facility: [facility] Address: [address] [place] [address] Performed By: #### 5 8410-2 ####[facility]ORYCLIA [id number] [place] [address] [place] WBC (Bld) [#/Vol] 14.60 10*3/uL High 3.70-11.00 [facility] Comment on above: Order Comment: Speci men Type: BLOOD SPECIMENOrdering Facility: [facility] Address: [address] [place] [address] Performed By: #### 5 8410-2 ####[facility]ORYCLIA [id number] [address] [place] CONSULTon 12-19-2024 CONSULT Normal [facility] CONSULT PROGon 12-19-2024 CONSULT PROG Normal [facility] CONSULT PROG Normal [facility] NUTRITIONon 12-19-2024 NUTRITION Normal [facility] THERAPY NTon 12-19-2024 THERAPY NT Normal [facility] ALLIED HEALTHon 12-18-2024 ALLIED HEALTH Normal [facility] Basic metabolic 2000 panelon 12-18-2024 Anion gap [Moles/Vol] 10 mmol/L Normal 8-15 [facility] Comment on above: Order Comment: Speci men Type: BLOOD SPECIMENOrdering Facility: [facility] Address: [address] [place] [address] Performed By: #### 1 4338-8, 71963-9 ####[facility]ORYCLIA [id number] [address] [place] Calcium [Mass/Vol] 9.0 mg/dL Normal 8.5-10.2 [facility] Comment on above: Order Comment: Speci men Type: BLOOD SPECIMENOrdering Facility: [facility] Address: [address] [place] [address] Performed By: #### 1 4338-8, 54013-6 ####[facility]ORYCLIA [id number] [address] [place] Chloride [Moles/Vol] 104 mmol/L Normal 98-107 [facility] Comment on above: Order Comment: Speci men Type: BLOOD SPECIMENOrdering Facility: [facility] Address: [address] [place] [address] Performed By: #### 1 4338-8, 79784-9 ####[facility]ORYCLIA [id number] [address] [place] CO2 [Moles/Vol] 28 mmol/L Normal 22-30 [facility] Comment on above: Order Comment: Speci men Type: BLOOD SPECIMENOrdering Facility: [facility] Address: [address] [place] [address] Performed By: #### 1 4338-8, 65507-5 ####[facility]ORYCLIA [id number] [address] STATES OF [facility] Creatinine [Mass/Vol] 3.32 mg/dL High 0.73-1.22 [facility] Comment on above: Order Comment: Speci men Type: BLOOD SPECIMENOrdering Facility: [facility] Address: [address] [place] [address] Performed By: #### 1 4338-8, 65560-6 ####[facility]ATORYCLIA [id number] [address] Creatinine and Glomerular filtration rate.predicted panel (S/P/Bld) 18 mL/min/1.73m??? Low >=60 [facility] Comment on above: Order Comment: Speci men Type: BLOOD SPECIMENOrdering Facility: [facility] Address: [address] [place] [address] Result Comment: Eli mated Glomerular Filtration Rate (eGFR) is calculated using the 2020 CKD-EPI creatinine equation. This equation utilizes serum creatinine, sex, and age as parameters. The creatinine assay has traceable calibration to isotope dilution-mass spectrometry. Refer to KDIGO guidelines for clinical interpretation. In patients with unstable renal function, e.g. those with acute kidney injury, the eGFR may not accurately reflect actual GFR. Performed By: #### 1 4338-8, 72334-1 ####[facility]ATORYCLIA [id number] [place] [address] [place] Glucose [Mass/Vol] 283 mg/dL High 74-99 [facility] Comment on above: Order Comment: Stuart madrigal Type: BLOOD SPECIMENOrdering Facility: [facility] Address: [address] [place] [address] Result Comment: The [place] [employer] (ADA) provides guidance for cutoff values for fasting glucose and random glucose. The ADA defines fasting as no caloric intake for at least 8 hours. Fasting plasma glucose results between 100 to 125 mg/dL indicate increased risk for diabetes (prediabetes).Fasting plasma glucose results greater than or equal to 126 mg/dL meet the criteria for diagnosis of diabetes. In the absence of unequivocal hyperglycemia, results should be confirmed by repeat testing. In a patient with classic symptoms of hyperglycemia or hyperglycemic crisis, random plasma glucose results greater than or equal to 200 mg/dL meet the criteria for diagnosis of diabetes.Reference: Standards of Medical Care in Diabetes 2016, [place] [employer]. Diabetes Care. 2016.39(Suppl 1). Performed By: #### 1 4338-8, 73051-2 ####[facility]ATORYCLIA [id number] [place] [address] [place] Potassium [Moles/Vol] 3.3 mmol/L Low 3.7-5.1 [facility] Comment on above: Order Comment: Stuart madrigal Type: BLOOD SPECIMENOrdering Facility: [facility] Address: [address] [place] [address] Performed By: #### 1 4338-8, 85294-8 ####[facility]ATORYCLIA [id number] [place] [address] [place] Sodium [Moles/Vol] 142 mmol/L Normal 136-144 [facility] Comment on above: Order Comment: Stuart madrigal Type: BLOOD SPECIMENOrdering Facility: [facility] Address: [address] [place] [address] Performed By: #### 1 4338-8, 81887-6 ####[facility]ATORYCLIA [id number] [address] Urea nitrogen [Mass/Vol] 101 mg/dL High 9-24 [facility] Comment on above: Order Comment: Speci men Type: BLOOD SPECIMENOrdering Facility: [facility] Address: [address] [place] [address] Performed By: #### 1 4338-8, 85830-2 ####[facility]ATORYCLIA [id number] [address] CBC panel Auto (Bld)on 12-18 Erythrocyte distribution width (RBC) [Ratio] 14.0 % Normal 11.5-15.0 [facility] Comment on above: Order Comment: Speci men Type: BLOOD SPECIMENOrdering Facility: [facility] Address: [address] [place] [address] Performed By: #### 5 8410-2 ####[facility]ATORYCLIA [id number] [address] Hematocrit (Bld) [Volume fraction] 28.0 % Low 39.0-51.0 [facility] Comment on above: Order Comment: Speci men Type: BLOOD SPECIMENOrdering Facility: [facility] Address: [address] [place] [address] Performed By: #### 5 8410-2 ####[facility]ORYCLIA [id number] [address] Hemoglobin (Bld) [Mass/Vol] 8.6 g/dL Low 13.0-17.0 [facility] Comment on above: Order Comment: Speci men Type: BLOOD SPECIMENOrdering Facility: [facility] Address: [address] [place] [address] Performed By: #### 5 8410-2 ####[facility]ATORYCLIA [id number] [address] MCH (RBC) [Entitic mass] 29.5 pg Normal 26.0-34.0 [facility] Comment on above: Order Comment: Speci men Type: BLOOD SPECIMENOrdering Facility: [facility] Address: [address] [place] [address] Performed By: #### 5 8410-2 ####[facility]ORYCLIA [id number] [address] OF [facility] MCHC (RBC) [Mass/Vol] 30.7 g/dL Normal 30.5-36.0 [facility] Comment on above: Order Comment: Speci men Type: BLOOD SPECIMENOrdering Facility: [facility] Address: [address] [place] [address] Performed By: #### 5 8410-2 ####[facility]ATORYCLIA [id number] [address] MCV (RBC) [Entitic vol] 95.9 fL Normal 80.0-100.0 [facility] Comment on above: Order Comment: Speci men Type: BLOOD SPECIMENOrdering Facility: [facility] Address: [address] [place] [address] Performed By: #### 5 8410-2 ####[facility]ORYCLIA [id number] [address] Nucleated RBC (Bld) [#/Vol] 10*3/uL Normal <0.01 [facility] Comment on above: Order Comment: Speci men Type: BLOOD SPECIMENOrdering Facility: [facility] Address: [address] [place] [address] Performed By: #### 5 8410-2 ####[facility]ATORYCLIA [id number] [address] Platelet mean volume (Bld) [Entitic vol] 11.3 fL Normal 9.0-12.7 [facility] Comment on above: Order Comment: Speci men Type: BLOOD SPECIMENOrdering Facility: [facility] Address: [address] [place] [address] Performed By: #### 5 8410-2 ####[facility]ATORYCLIA [id number] [place] [address] [facility] Platelets (Bld) [#/Vol] 502 10*3/uL High 150-400 [facility] Comment on above: Order Comment: Speci men Type: BLOOD SPECIMENOrdering Facility: [facility] Address: [address] [place] [address] Performed By: #### 5 8410-2 ####[facility]ATORYCLIA [id number] [place] [address] [place] RBC (Bld) [#/Vol] 2.92 10*6/uL Low 4.20-6.00 [facility] Comment on above: Order Comment: Speci men Type: BLOOD SPECIMENOrdering Facility: [facility] Address: [address] [place] [address] Performed By: #### 5 8410-2 ####[facility]ORYCLIA [id number] [address] WBC (Bld) [#/Vol] 12.84 10*3/uL High 3.70-11.00 [facility] Comment on above: Order Comment: Speci men Type: BLOOD SPECIMENOrdering Facility: [facility] Address: [address] [place] [address] Performed By: #### 5 8410-2 ####[facility]ATORYCLIA [id number] [address] OF [facility] CONSULT PROGon 12-18-2024 CONSULT PROG Normal [facility] CONSULT PROG Normal [facility] NURSING PROGon 12-18-2024 NURSING PROG Normal [facility] Prealbumin [Mass/Vol]on 11-24 Prealbumin Nephelometry [Mass/Vol] 17 mg/dL Normal [facility] Comment on above: Order Comment: Speci men Type: BLOOD SPECIMENOrdering Facility: [facility] Address: [address] [place] [address] Performed By: #### 1 4338-8, 30996-2 ####[facility]ATORYCLIA [id number] [place] [address] [place] XR ABDOMEN 1V SUPINEon 12-18 XR ABDOMEN 1V SUPINE Normal [facility] XR ABDOMEN 1V SUPINE Normal [facility] ALLIED HEALTHon 12-17-2024 ALLIED HEALTH Normal [facility] Basic metabolic 2000 panelon 12-17-2024 Anion gap [Moles/Vol] 11 mmol/L Normal 8-15 [facility] Comment on above: Order Comment: Speci men Type: BLOOD SPECIMENOrdering Facility: [facility] Address: [address] [place] [address] Performed By: #### 1 9123-9, 99010-9, 2777-1, 77320-7 ####[facility]ATORYCLIA [id number] [place] [address] [place] Calcium [Mass/Vol] 9.5 mg/dL Normal 8.5-10.2 [facility] Comment on above: Order Comment: Speci men Type: BLOOD SPECIMENOrdering Facility: [facility] Address: [address] [place] [address] Performed By: #### 1 9123-9, 39957-4, 2777-1, 54009-4 ####[facility]ORYCLIA [id number] [place] [address] [place] Chloride [Moles/Vol] 103 mmol/L Normal 98-107 [facility] Comment on above: Order Comment: Speci men Type: BLOOD SPECIMENOrdering Facility: [facility] Address: [address] [place] [address] Performed By: #### 1 9123-9, 50020-9, 2777-1, 57032-6 ####[facility]ATORYCLIA [id number] [place] [id number] [place] CO2 [Moles/Vol] 29 mmol/L Normal 22-30 [facility] Comment on above: Order Comment: Speci men Type: BLOOD SPECIMENOrdering Facility: [facility] Address: [address] [place] [address] Performed By: #### 1 9123-9, 92329-4, 2777-1, 82170-9 ####[facility] [id number] [place] [id number] [place] Creatinine [Mass/Vol] 3.62 mg/dL High 0.73-1.22 [facility] Comment on above: Order Comment: Speci men Type: BLOOD SPECIMENOrdering Facility: [facility] Address: [address] [place] [address] Performed By: #### 1 9123-9, 73657-9, 2777-1, 59699-0 ####[facility] CENTERIA [id number] [address] OF [facility] Creatinine and Glomerular filtration rate.predicted panel (S/P/Bld) 16 mL/min/1.73m??? Low >=60 [facility] Comment on above: Order Comment: Speci men Type: BLOOD SPECIMENOrdering Facility: [facility] Address: [address] [place] [address] Result Comment: Eli mated Glomerular Filtration Rate (eGFR) is calculated using the 2020 CKD-EPI creatinine equation. This equation utilizes serum creatinine, sex, and age as parameters. The creatinine assay has traceable calibration to isotope dilution-mass spectrometry. Refer to KDIGO guidelines for clinical interpretation. In patients with unstable renal function, e.g. those with acute kidney injury, the eGFR may not accurately reflect actual GFR. Performed By: #### 1 9123-9, 82333-7, 2777-1, 90277-6 ####[facility]ORYCLIA [id number] [place] [id number] [place] Glucose [Mass/Vol] 125 mg/dL High 74-99 [facility] Comment on above: Order Comment: Speci men Type: BLOOD SPECIMENOrdering Facility: [facility] Address: [address] [place] [address] Result Comment: The [place] [employer] (ADA) provides guidance for cutoff values for fasting glucose and random glucose. The ADA defines fasting as no caloric intake for at least 8 hours. Fasting plasma glucose results between 100 to 125 mg/dL indicate increased risk for diabetes (prediabetes).Fasting plasma glucose results greater than or equal to 126 mg/dL meet the criteria for diagnosis of diabetes. In the absence of unequivocal hyperglycemia, results should be confirmed by repeat testing. In a patient with classic symptoms of hyperglycemia or hyperglycemic crisis, random plasma glucose results greater than or equal to 200 mg/dL meet the criteria for diagnosis of diabetes.Reference: Standards of Medical Care in Diabetes 2016, [place] [employer]. Diabetes Care. 2016.39(Suppl 1). Performed By: #### 1 9123-9, 87161-2, 2777-1, 53291-9 ####[facility]ORYCLIA [id number] [place] [address] [place] Potassium [Moles/Vol] 3.9 mmol/L Normal 3.7-5.1 [facility] Comment on above: Order Comment: Speci men Type: BLOOD SPECIMENOrdering Facility: [facility] Address: [address] [place] [address] Performed By: #### 1 9123-9, 84175-2, 2777-1, 97049-6 ####[facility]ATORYCLIA [id number] [place] [address] [place] Sodium [Moles/Vol] 143 mmol/L Normal 136-144 [facility] Comment on above: Order Comment: Speci men Type: BLOOD SPECIMENOrdering Facility: [facility] Address: [address] [place] [address] Performed By: #### 1 9123-9, 16288-6, 2777-1, 42059-8 ####[facility]ATORYCLIA [id number] [place] [id number] [place] Urea nitrogen [Mass/Vol] 85 mg/dL High 9-24 [facility] Comment on above: Order Comment: Speci men Type: BLOOD SPECIMENOrdering Facility: [facility] Address: [address] [place] [address] Performed By: #### 1 9123-9, 27150-8, 2777-1, 25048-7 ####[facility]ATORYCLIA [id number] [address] STATES [facility] CBC panel Auto (Bld)on 12-17 Erythrocyte distribution width (RBC) [Ratio] 14.4 % Normal 11.5-15.0 [facility] Comment on above: Order Comment: Speci men Type: BLOOD SPECIMENOrdering Facility: [facility] Address: [address] [place] [address] Performed By: #### 5 8410-2 ####[facility]ATORYCLIA [id number] [address] Hematocrit (Bld) [Volume fraction] 28.9 % Low 39.0-51.0 [facility] Comment on above: Order Comment: Speci men Type: BLOOD SPECIMENOrdering Facility: [facility] Address: [address] [place] [address] Performed By: #### 5 8410-2 ####[facility]ORYCLIA [id number] [address] Hemoglobin (Bld) [Mass/Vol] 9.0 g/dL Low 13.0-17.0 [facility] Comment on above: Order Comment: Speci men Type: BLOOD SPECIMENOrdering Facility: [facility] Address: [address] [place] [address] Performed By: #### 5 8410-2 ####[facility]ORYCLIA [id number] [address] MCH (RBC) [Entitic mass] 29.5 pg Normal 26.0-34.0 [facility] Comment on above: Order Comment: Speci men Type: BLOOD SPECIMENOrdering Facility: [facility] Address: [address] [place] [address] Performed By: #### 5 8410-2 ####[facility]ORYCLIA [id number] [address] [place] MCHC (RBC) [Mass/Vol] 31.1 g/dL Normal 30.5-36.0 [facility] Comment on above: Order Comment: Speci men Type: BLOOD SPECIMENOrdering Facility: [facility] Address: [address] [place] [address] Performed By: #### 5 8410-2 ####[facility]ATORYCLIA [id number] [address] STATES [facility] MCV (RBC) [Entitic vol] 94.8 fL Normal 80.0-100.0 [facility] Comment on above: Order Comment: Speci men Type: BLOOD SPECIMENOrdering Facility: [facility] Address: [address] [place] [address] Performed By: #### 5 8410-2 ####[facility]ORYCLIA [id number] [address] OF [facility] Nucleated RBC (Bld) [#/Vol] 10*3/uL Normal <0.01 [facility] Comment on above: Order Comment: Speci men Type: BLOOD SPECIMENOrdering Facility: [facility] Address: [address] [place] [address] Performed By: #### 5 8410-2 ####[facility]ORYCLIA [id number] [address] Platelet mean volume (Bld) [Entitic vol] 11.1 fL Normal 9.0-12.7 [facility] Comment on above: Order Comment: Speci men Type: BLOOD SPECIMENOrdering Facility: [facility] Address: [address] [place] [address] Performed By: #### 5 8410-2 ####[facility]ORYCLIA [id number] [address] [place] Platelets (Bld) [#/Vol] 541 10*3/uL High 150-400 [facility] Comment on above: Order Comment: Speci men Type: BLOOD SPECIMENOrdering Facility: [facility] Address: [address] [place] [address] Performed By: #### 5 8410-2 ####[facility]ORYCLIA [id number] [address] [place] RBC (Bld) [#/Vol] 3.05 10*6/uL Low 4.20-6.00 [facility] Comment on above: Order Comment: Speci men Type: BLOOD SPECIMENOrdering Facility: [facility] Address: [address] [place] [address] Performed By: #### 5 8410-2 ####[facility] LABORATORYCLIA [id number] [place] [address] [place] WBC (Bld) [#/Vol] 13.82 10*3/uL High 3.70-11.00 [facility] Comment on above: Order Comment: Speci men Type: BLOOD SPECIMENOrdering Facility: [facility] Address: [address] [place] [address] Performed By: #### 5 8410-2 ####[facility] LABORATORYCLIA [id number] [address] OF [facility] CONSULT PROGon 12-17-2024 CONSULT PROG Normal [facility] CONSULT PROG Normal [facility] CONSULT PROG Normal [facility] Calcium.ionized [Moles/Vol]o n 12-17-2024 Calcium.ionized (BldV) [Mass/Vol] 1.30 mmol/L Normal 1.08-1.30 [facility] Comment on above: Order Comment: Speci men Type: BLOOD SPECIMENOrdering Facility: [facility] Address: [address] [place] [address] Performed By: #### 1 995-0 ####[facility]ATORYCLIA [id number] [address] Calcium.ionized adjusted to pH 7.4 (Bld) [Moles/Vol] 1.30 mmol/L Normal 1.08-1.30 [facility] Comment on above: Order Comment: Speci men Type: BLOOD SPECIMENOrdering Facility: [facility] Address: [address] [place] [address] Performed By: #### 1 995-0 ####[facility]ATORYCLIA [id number] [address] OF [facility] Magnesium SerPl-mCncon 12-17 Magnesium [Mass/Vol] 2.2 mg/dL Normal 1.7-2.3 [facility] Comment on above: Order Comment: Speci men Type: BLOOD SPECIMENOrdering Facility: [facility] Address: [address] [place] [address] Performed By: #### 1 9123-9, 22743-5, 2777-1, 75810-5 ####[facility]ATORYCLIA [id number] [address] NT-proBNP SerPl-[facility] 12-17 Natriuretic peptide.B prohormone N-Terminal [Mass/Vol] 43851 pg/mL High <450 [facility] Comment on above: Order Comment: Speci men Type: BLOOD SPECIMENOrdering Facility: [facility] Address: [address] [place] [address] Performed By: #### 1 9123-9, 14694-4, 2777-1, 32632-3 ####[facility]ATORYCLIA [id number] [address] NURSING PROGon 12-17-2024 NURSING PROG Normal [facility] Phosphate SerPl-ncon 12-17 Phosphate [Mass/Vol] 3.8 mg/dL Normal 2.7-4.8 [facility] Comment on above: Order Comment: Speci men Type: BLOOD SPECIMENOrdering Facility: [facility] Address: [address] [place] [address] Performed By: #### 1 9123-9, 05301-5, 2777-1, 69700-9 ####[facility]ATORYCLIA [id number] [address] OF [facility] XR CHEST 1V FRONTALon 2024 XR CHEST 1V FRONTAL Normal [facility] Basic metabolic 2000 panelon 12-16-2024 Anion gap [Moles/Vol] 11 mmol/L Normal 8-15 [facility] Comment on above: Order Comment: Speci men Type: BLOOD SPECIMENOrdering Facility: [facility] Address: [address] [place] [address] Performed By: #### 2 777-1, , ####[facility]ATORYCLIA [id number] [place] [address] [place] Calcium [Mass/Vol] 9.1 mg/dL Normal 8.5-10.2 [facility] Comment on above: Order Comment: Speci men Type: BLOOD SPECIMENOrdering Facility: [facility] Address: [address] [place] [address] Performed By: #### 2 777-1, , ####[facility]ATORYCLIA [id number] [place] [address] [place] Chloride [Moles/Vol] 102 mmol/L Normal 98-107 [facility] Comment on above: Order Comment: Speci men Type: BLOOD SPECIMENOrdering Facility: [facility] Address: [address] [place] [address] Performed By: #### 2 777-1, , ####[facility]ATORYCLIA [id number] [place] [address] [place] CO2 [Moles/Vol] 30 mmol/L Normal 22-30 [facility] Comment on above: Order Comment: Speci men Type: BLOOD SPECIMENOrdering Facility: [facility] Address: [address] [place] [address] Performed By: #### 2 777-1, 90226-9, ####[facility]ATORYCLIA [id number] [place] [address] [place] Creatinine [Mass/Vol] 3.72 mg/dL High 0.73-1.22 [facility] Comment on above: Order Comment: Speci men Type: BLOOD SPECIMENOrdering Facility: [facility] Address: [address] [place] [address] Performed By: #### 2 777-1, 98146-4, ####[facility] CENTERIA [id number] [address] OF [facility] Creatinine and Glomerular filtration rate.predicted panel (S/P/Bld) 16 mL/min/1.73m??? Low >=60 [facility] Comment on above: Order Comment: Stuart madrigal Type: BLOOD SPECIMENOrdering Facility: [facility] Address: [address] [place] [address] Result Comment: Eli mated Glomerular Filtration Rate (eGFR) is calculated using the 2020 CKD-EPI creatinine equation. This equation utilizes serum creatinine, sex, and age as parameters. The creatinine assay has traceable calibration to isotope dilution-mass spectrometry. Refer to KDIGO guidelines for clinical interpretation. In patients with unstable renal function, e.g. those with acute kidney injury, the eGFR may not accurately reflect actual GFR. Performed By: #### 2 777-1, 79930-1, ####[facility] CENTERIA [id number] [address] [place] Glucose [Mass/Vol] 256 mg/dL High 74-99 [facility] Comment on above: Order Comment: Stuart madrigal Type: BLOOD SPECIMENOrdering Facility: [facility] Address: [address] [place] [address] Result Comment: The [place] [employer] (ADA) provides guidance for cutoff values for fasting glucose and random glucose. The ADA defines fasting as no caloric intake for at least 8 hours. Fasting plasma glucose results between 100 to 125 mg/dL indicate increased risk for diabetes (prediabetes).Fasting plasma glucose results greater than or equal to 126 mg/dL meet the criteria for diagnosis of diabetes. In the absence of unequivocal hyperglycemia, results should be confirmed by repeat testing. In a patient with classic symptoms of hyperglycemia or hyperglycemic crisis, random plasma glucose results greater than or equal to 200 mg/dL meet the criteria for diagnosis of diabetes.Reference: Standards of Medical Care in Diabetes 2016, [place] [employer]. Diabetes Care. 2016.39(Suppl 1). Performed By: #### 2 777-1, 04568-1, ####[facility]ATORYIA [id number] [place] [address] [place] Potassium [Moles/Vol] 4.1 mmol/L Normal 3.7-5.1 [facility] Comment on above: Order Comment: Speci men Type: BLOOD SPECIMENOrdering Facility: [facility] Address: [address] [place] [address] Performed By: #### 2 777-1, 90024-7, ####[facility]ATORYCLIA [id number] [address] [place] Sodium [Moles/Vol] 143 mmol/L Normal 136-144 [facility] Comment on above: Order Comment: Speci men Type: BLOOD SPECIMENOrdering Facility: [facility] Address: [address] [place] [address] Performed By: #### 2 777-1, 27201-2, ####[facility]ATORYCLIA [id number] [address] STATES OF [facility] Urea nitrogen [Mass/Vol] 77 mg/dL High - [facility] Comment on above: Order Comment: Speci men Type: BLOOD SPECIMENOrdering Facility: [facility] Address: [address] [place] [address] Performed By: #### 2 777-1, 21694-3, ####[facility]ATORYCLIA [id number] [address] STATES OF [facility] CBC panel Auto (Bld)on 12-16 Erythrocyte distribution width (RBC) [Ratio] 14.6 % Normal 11.5-15.0 [facility] Comment on above: Order Comment: Speci men Type: BLOOD SPECIMENOrdering Facility: [facility] Address: [address] [place] [address] Performed By: #### 5 8410-2 ####[facility]ATORYCLIA [id number] [address] [place] Hematocrit (Bld) [Volume fraction] 28.0 % Low 39.0-51.0 [facility] Comment on above: Order Comment: Speci men Type: BLOOD SPECIMENOrdering Facility: [facility] Address: [address] [place] [address] Performed By: #### 5 8410-2 ####[facility]ATORYCLIA [id number] [address] STATES OF [facility] Hemoglobin (Bld) [Mass/Vol] 8.7 g/dL Low 13.0-17.0 [facility] Comment on above: Order Comment: Speci men Type: BLOOD SPECIMENOrdering Facility: [facility] Address: [address] [place] [address] Performed By: #### 5 8410-2 ####[facility]ATORYCLIA [id number] [address] [place] MCH (RBC) [Entitic mass] 29.5 pg Normal 26.0-34.0 [facility] Comment on above: Order Comment: Speci men Type: BLOOD SPECIMENOrdering Facility: [facility] Address: [address] [place] [address] Performed By: #### 5 8410-2 ####[facility]ATORYCLIA [id number] [address] OF [facility] MCHC (RBC) [Mass/Vol] 31.1 g/dL Normal 30.5-36.0 [facility] Comment on above: Order Comment: Speci men Type: BLOOD SPECIMENOrdering Facility: [facility] Address: [address] [place] [address] Performed By: #### 5 8410-2 ####[facility]ATORYCLIA [id number] [address] [place] MCV (RBC) [Entitic vol] 94.9 fL Normal 80.0-100.0 [facility] Comment on above: Order Comment: Speci men Type: BLOOD SPECIMENOrdering Facility: [facility] Address: [address] [place] [address] Performed By: #### 5 8410-2 ####[facility]ATORYCLIA [id number] [address] [place] Nucleated RBC (Bld) [#/Vol] 10*3/uL Normal <0.01 [facility] Comment on above: Order Comment: Speci men Type: BLOOD SPECIMENOrdering Facility: [facility] Address: [address] [place] [address] Performed By: #### 5 8410-2 ####[facility]ATORYCLIA [id number] [address] [place] Platelet mean volume (Bld) [Entitic vol] 10.8 fL Normal 9.0-12.7 [facility] Comment on above: Order Comment: Speci men Type: BLOOD SPECIMENOrdering Facility: [facility] Address: [address] [place] [address] Performed By: #### 5 8410-2 ####[facility]ATORYCLIA [id number] [address] [place] Platelets (Bld) [#/Vol] 527 10*3/uL High 150-400 [facility] Comment on above: Order Comment: Speci men Type: BLOOD SPECIMENOrdering Facility: [facility] Address: [address] [place] [address] Performed By: #### 5 8410-2 ####[facility]ATORYCLIA [id number] [address] [place] RBC (Bld) [#/Vol] 2.95 10*6/uL Low 4.20-6.00 [facility] Comment on above: Order Comment: Speci men Type: BLOOD SPECIMENOrdering Facility: [facility] Address: [address] [place] [address] Performed By: #### 5 8410-2 ####[facility]ORYCLIA [id number] [address] [place] WBC (Bld) [#/Vol] 12.49 10*3/uL High 3.70-11.00 [facility] Comment on above: Order Comment: Speci men Type: BLOOD SPECIMENOrdering Facility: [facility] Address: [address] [place] [place] [id number] Performed By: #### 5 8410-2 ####[facility]ORYCLIA [id number] [place] [address] [place] CONSULT PROGon 12-16-2024 CONSULT PROG Normal [facility] CONSULT PROG Normal [facility] CONSULT PROG Normal [facility] Calcium.ionized [Moles/Vol]o n 12-16-2024 Calcium.ionized (BldV) [Mass/Vol] 1.25 mmol/L Normal 1.08-1.30 [facility] Comment on above: Order Comment: Speci men Type: BLOOD SPECIMENOrdering Facility: [facility] Address: [address] [place] [address] Performed By: #### 1 995-0 ####[facility]ORYCLIA [id number] [place] [address] [place] Calcium.ionized adjusted to pH 7.4 (Bld) [Moles/Vol] 1.20 mmol/L Normal 1.08-1.30 [facility] Comment on above: Order Comment: Speci men Type: BLOOD SPECIMENOrdering Facility: [facility] Address: [address] [place] [address] Performed By: #### 1 995-0 ####[facility]ATORYCLIA [id number] [place] [address] [place] Magnesium SerPl-mCncon 12-16 Magnesium [Mass/Vol] 2.2 mg/dL Normal 1.7-2.3 [facility] Comment on above: Order Comment: Speci men Type: BLOOD SPECIMENOrdering Facility: [facility] Address: [address] [place] [address] Performed By: #### 2 777-1, 83931-8, 74495-6 ####[facility]ATORYCLIA [id number] [place] [address] [place] Phosphate SerPl-mCncon 12-16 Phosphate [Mass/Vol] 3.8 mg/dL Normal 2.7-4.8 [facility] Comment on above: Order Comment: Speci men Type: BLOOD SPECIMENOrdering Facility: [facility] Address: [address] [place] [address] Performed By: #### 2 777-1, 85693-8, 00197-9 ####[facility]ORYCLIA [id number] [place] [address] [place] Basic metabolic 2000 panelon 12-15-2024 Anion gap [Moles/Vol] 11 mmol/L Normal 8-15 [facility] Comment on above: Order Comment: Speci men Type: BLOOD SPECIMENOrdering Facility: [facility] Address: [address] [place] [address] Performed By: #### 2 4321-2 ####[facility]ATORYCLIA [id number] [place] [address] [place] Calcium [Mass/Vol] 8.9 mg/dL Normal 8.5-10.2 [facility] Comment on above: Order Comment: Speci men Type: BLOOD SPECIMENOrdering Facility: [facility] Address: [address] [place] [address] Performed By: #### 2 4321-2 ####[facility]ATORYCLIA [id number] [place] [address] [place] Chloride [Moles/Vol] 100 mmol/L Normal 98-107 [facility] Comment on above: Order Comment: Speci men Type: BLOOD SPECIMENOrdering Facility: [facility] Address: [address] [place] [address] Performed By: #### 2 4321-2 ####[facility]ATORYCLIA [id number] [place] [address] [place] CO2 [Moles/Vol] 33 mmol/L High 22-30 [facility] Comment on above: Order Comment: Speci men Type: BLOOD SPECIMENOrdering Facility: [facility] Address: [address] [place] [address] Performed By: #### 2 4321-2 ####[facility]ATORYCLIA [id number] [place] [address] [place] Creatinine [Mass/Vol] 3.97 mg/dL High 0.73-1.22 [facility] Comment on above: Order Comment: Stuart madrigal Type: BLOOD SPECIMENOrdering Facility: [facility] Address: [address] [place] [address] Performed By: #### 2 4321-2 ####[facility]ATORYCLIA [id number] [place] [id number] [facility] [place] Creatinine and Glomerular filtration rate.predicted panel (S/P/Bld) 15 mL/min/1.73m??? Low >=60 [facility] Comment on above: Order Comment: Stuart madrigal Type: BLOOD SPECIMENOrdering Facility: [facility] Address: [address] [place] [address] Result Comment: Eli mated Glomerular Filtration Rate (eGFR) is calculated using the 2020 CKD-EPI creatinine equation. This equation utilizes serum creatinine, sex, and age as parameters. The creatinine assay has traceable calibration to isotope dilution-mass spectrometry. Refer to KDIGO guidelines for clinical interpretation. In patients with unstable renal function, e.g. those with acute kidney injury, the eGFR may not accurately reflect actual GFR. Performed By: #### 2 4321-2 ####[facility]ATORYCLIA [id number] [place] [address] [place] Glucose [Mass/Vol] 227 mg/dL High 74-99 [facility] Comment on above: Order Comment: Stuart madrigal Type: BLOOD SPECIMENOrdering Facility: [facility] Address: [address] [place] [address] Result Comment: The [place] Diabetes [employer] (ADA) provides guidance for cutoff values for fasting glucose and random glucose. The ADA defines fasting as no caloric intake for at least 8 hours. Fasting plasma glucose results between 100 to 125 mg/dL indicate increased risk for diabetes (prediabetes).Fasting plasma glucose results greater than or equal to 126 mg/dL meet the criteria for diagnosis of diabetes. In the absence of unequivocal hyperglycemia, results should be confirmed by repeat testing. In a patient with classic symptoms of hyperglycemia or hyperglycemic crisis, random plasma glucose results greater than or equal to 200 mg/dL meet the criteria for diagnosis of diabetes.Reference: Standards of Medical Care in Diabetes 2016, [place] [employer]. Diabetes Care. 2016.39(Suppl 1). Performed By: #### 2 4321-2 ####[facility]ORYCLIA [id number] [place] [address] [place] Potassium [Moles/Vol] 4.3 mmol/L Normal 3.7-5.1 [facility] Comment on above: Order Comment: Speci men Type: BLOOD SPECIMENOrdering Facility: [facility] Address: [address] [place] [address] Performed By: #### 2 4321-2 ####[facility]ORYCLIA [id number] [address] [place] Sodium [Moles/Vol] 144 mmol/L Normal 136-144 [facility] Comment on above: Order Comment: Speci men Type: BLOOD SPECIMENOrdering Facility: [facility] Address: [address] [place] [address] Performed By: #### 2 4321-2 ####[facility]ATORYCLIA [id number] [place] [address] [place] Urea nitrogen [Mass/Vol] 77 mg/dL High 9-24 [facility] Comment on above: Order Comment: Speci men Type: BLOOD SPECIMENOrdering Facility: [facility] Address: [address] [place] [address] Performed By: #### 2 4321-2 ####[facility]ORYCLIA [id number] [address] [place] Anion gap [Moles/Vol] 12 mmol/L Normal 8-15 [facility] Comment on above: Order Comment: Speci men Type: BLOOD SPECIMENOrdering Facility: [facility] Address: [address] [place] [address] Performed By: #### 3 3762-6, 31008-6, 51385-9, 2777-1 ####[facility]ORYCLIA [id number] [place] [address] [place] Calcium [Mass/Vol] 8.2 mg/dL Low 8.5-10.2 [facility] Comment on above: Order Comment: Speci men Type: BLOOD SPECIMENOrdering Facility: [facility] Address: [address] [place] [address] Performed By: #### 3 3762-6, 98977-5, , 2776- ####[facility]ORYCLIA [id number] [place] [address] [place] Chloride [Moles/Vol] 100 mmol/L Normal 98-107 [facility] Comment on above: Order Comment: Speci men Type: BLOOD SPECIMENOrdering Facility: [facility] Address: [address] [place] [address] Performed By: #### 3 3762-6, 10034-2, , 2776-07 ####[facility]ORYCLIA [id number] [place] [address] [place] CO2 [Moles/Vol] 31 mmol/L High 22-30 [facility] Comment on above: Order Comment: Speci men Type: BLOOD SPECIMENOrdering Facility: [facility] Address: [address] [place] [address] Performed By: #### 3 3762-6, 63273-5, , 2776-07 ####[facility]ORYCLIA [id number] [place] [address] [place] Creatinine [Mass/Vol] 3.86 mg/dL High 0.73-1.22 [facility] Comment on above: Order Comment: Speci men Type: BLOOD SPECIMENOrdering Facility: [facility] Address: [address] [place] [address] Performed By: #### 3 3762-6, 47883-1, , 2776-07 ####[facility]ORYCLIA [id number] [place] [address] [place] Creatinine and Glomerular filtration rate.predicted panel (S/P/Bld) 15 mL/min/1.73m??? Low >=60 [facility] Comment on above: Order Comment: Stuart madrigal Type: BLOOD SPECIMENOrdering Facility: [facility] Address: [address] [place] [address] Result Comment: Eli mated Glomerular Filtration Rate (eGFR) is calculated using the 2020 CKD-EPI creatinine equation. This equation utilizes serum creatinine, sex, and age as parameters. The creatinine assay has traceable calibration to isotope dilution-mass spectrometry. Refer to KDIGO guidelines for clinical interpretation. In patients with unstable renal function, e.g. those with acute kidney injury, the eGFR may not accurately reflect actual GFR. Performed By: #### 3 3762-6, 70686-2, 09649-6, 2776-1 ####[facility]CL[facility] [id number] [place] [address] [place] Glucose [Mass/Vol] 294 mg/dL High 74-99 [facility] Comment on above: Order Comment: Stuart madrigal Type: BLOOD SPECIMENOrdering Facility: [facility] Address: [address] [place] [address] Result Comment: The [place] Diabetes [employer] (ADA) provides guidance for cutoff values for fasting glucose and random glucose. The ADA defines fasting as no caloric intake for at least 8 hours. Fasting plasma glucose results between 100 to 125 mg/dL indicate increased risk for diabetes (prediabetes).Fasting plasma glucose results greater than or equal to 126 mg/dL meet the criteria for diagnosis of diabetes. In the absence of unequivocal hyperglycemia, results should be confirmed by repeat testing. In a patient with classic symptoms of hyperglycemia or hyperglycemic crisis, random plasma glucose results greater than or equal to 200 mg/dL meet the criteria for diagnosis of diabetes.Reference: Standards of Medical Care in Diabetes 2016, [place] [employer]. Diabetes Care. 2016.39(Suppl 1). Performed By: #### 3 3762-6, 68647-5, 60918-4, 2776-1 ####[facility]ORYCLIA [id number] [place] [address] [place] Potassium [Moles/Vol] 3.5 mmol/L Low 3.7-5.1 [facility] Comment on above: Order Comment: Stuart madrigal Type: BLOOD SPECIMENOrdering Facility: [facility] Address: [address] [place] [address] Performed By: #### 3 3762-6, 65981-6, 13361-2, 2777-1 ####[facility]ORYCLIA [id number] [address] STATES OF [facility] Sodium [Moles/Vol] 143 mmol/L Normal 136-144 [facility] Comment on above: Order Comment: Speci men Type: BLOOD SPECIMENOrdering Facility: [facility] Address: [address] [place] [address] Performed By: #### 3 3762-6, 46345-4, 97514-5, 277-1 ####[facility]ORYCLIA [id number] [address] [place] Urea nitrogen [Mass/Vol] 77 mg/dL High 9-24 [facility] Comment on above: Order Comment: Speci men Type: BLOOD SPECIMENOrdering Facility: [facility] Address: [address] [place] [address] Performed By: #### 3 3762-6, 64674-3, , 2777-1 ####[facility]ORYCLIA [id number] [address] [place] CASE MANAGEMon 12-15-2024 CASE MANAGEM Normal [facility] CBC panel Auto (Bld)on 12-15 Erythrocyte distribution width (RBC) [Ratio] 14.8 % Normal 11.5-15.0 [facility] Comment on above: Order Comment: Speci men Type: BLOOD SPECIMENOrdering Facility: [facility] Address: [address] [place] [address] Performed By: #### 5 8410-2 ####[facility] LABORATORYCLIA [id number] [address] [place] Hematocrit (Bld) [Volume fraction] 26.1 % Low 39.0-51.0 [facility] Comment on above: Order Comment: Speci men Type: BLOOD SPECIMENOrdering Facility: [facility] Address: [address] [place] [address] Performed By: #### 5 8410-2 ####[facility] LABORATORYCLIA [id number] [address] OF [facility] Hemoglobin (Bld) [Mass/Vol] 8.4 g/dL Low 13.0-17.0 [facility] Comment on above: Order Comment: Speci men Type: BLOOD SPECIMENOrdering Facility: [facility] Address: [address] [place] [address] Performed By: #### 5 8410-2 ####[facility] LABORATORYCLIA [id number] [address] MCH (RBC) [Entitic mass] 29.8 pg Normal 26.0-34.0 [facility] Comment on above: Order Comment: Speci men Type: BLOOD SPECIMENOrdering Facility: [facility] Address: [address] [place] [address] Performed By: #### 5 8410-2 ####[facility] LABORATORYCLIA [id number] [address] MCHC (RBC) [Mass/Vol] 32.2 g/dL Normal 30.5-36.0 [facility] Comment on above: Order Comment: Speci men Type: BLOOD SPECIMENOrdering Facility: [facility] Address: [address] [place] [address] Performed By: #### 5 8410-2 ####[facility] LABORATORYCLIA [id number] [address] STATES [facility] MCV (RBC) [Entitic vol] 92.6 fL Normal 80.0-100.0 [facility] Comment on above: Order Comment: Speci men Type: BLOOD SPECIMENOrdering Facility: [facility] Address: [address] [place] [address] Performed By: #### 5 8410-2 ####[facility] LABORATORYCLIA [id number] [address] OF [facility] Nucleated RBC (Bld) [#/Vol] 10*3/uL Normal <0.01 [facility] Comment on above: Order Comment: Speci men Type: BLOOD SPECIMENOrdering Facility: [facility] Address: [address] [place] [address] Performed By: #### 5 8410-2 ####[facility] LABORATORYCLIA [id number] [address] [place] Platelet mean volume (Bld) [Entitic vol] 10.7 fL Normal 9.0-12.7 [facility] Comment on above: Order Comment: Speci men Type: BLOOD SPECIMENOrdering Facility: [facility] Address: [address] [place] [address] Performed By: #### 5 8410-2 ####[facility] LABORATORYCLIA [id number] [address] [place] Platelets (Bld) [#/Vol] 506 10*3/uL High 150-400 [facility] Comment on above: Order Comment: Speci men Type: BLOOD SPECIMENOrdering Facility: [facility] Address: [address] [place] [address] Performed By: #### 5 8410-2 ####[facility] LABORATORYCLIA [id number] [place] [address] [place] RBC (Bld) [#/Vol] 2.82 10*6/uL Low 4.20-6.00 [facility] Comment on above: Order Comment: Speci men Type: BLOOD SPECIMENOrdering Facility: [facility] Address: [address] [place] [address] Performed By: #### 5 8410-2 ####[facility] LABORATORYCLIA [id number] [place] [address] [place] WBC (Bld) [#/Vol] 11.03 10*3/uL High 3.70-11.00 [facility] Comment on above: Order Comment: Speci men Type: BLOOD SPECIMENOrdering Facility: [facility] Address: [address] [place] [address] Performed By: #### 5 8410-2 ####[facility] LABORATORYCLIA [id number] [address] Erythrocyte distribution width (RBC) [Ratio] 13.5 % Normal 11.5-15.0 [facility] Comment on above: Order Comment: Speci men Type: BLOOD SPECIMENOrdering Facility: [facility] Address: [address] [place] [address] Performed By: #### 5 8410-2 ####[facility]ATORYCLIA [id number] [address] Hematocrit (Bld) [Volume fraction] 22.4 % Low 39.0-51.0 [facility] Comment on above: Order Comment: Speci men Type: BLOOD SPECIMENOrdering Facility: [facility] Address: [address] [place] [address] Performed By: #### 5 8410-2 ####[facility]ATORYCLIA [id number] [address] Hemoglobin (Bld) [Mass/Vol] 6.9 g/dL Low 13.0-17.0 [facility] Comment on above: Order Comment: Speci men Type: BLOOD SPECIMENOrdering Facility: [facility] Address: [address] [place] [address] Performed By: #### 5 8410-2 ####[facility]ORATORYCLIA [id number] [address] STATES [facility] MCH (RBC) [Entitic mass] 30.3 pg Normal 26.0-34.0 [facility] Comment on above: Order Comment: Speci men Type: BLOOD SPECIMENOrdering Facility: [facility] Address: [address] [place] [address] Performed By: #### 5 8410-2 ####[facility]ORATORYCLIA [id number] [address] MCHC (RBC) [Mass/Vol] 30.8 g/dL Normal 30.5-36.0 [facility] Comment on above: Order Comment: Speci men Type: BLOOD SPECIMENOrdering Facility: [facility] Address: [address] [place] [address] Performed By: #### 5 8410-2 ####[facility] LABORATORYCLIA [id number] [address] MCV (RBC) [Entitic vol] 98.2 fL Normal 80.0-100.0 [facility] Comment on above: Order Comment: Speci men Type: BLOOD SPECIMENOrdering Facility: [facility] Address: [address] [place] [address] Performed By: #### 5 8410-2 ####[facility]ATORYCLIA [id number] [address] Nucleated RBC (Bld) [#/Vol] 10*3/uL Normal <0.01 [facility] Comment on above: Order Comment: Speci men Type: BLOOD SPECIMENOrdering Facility: [facility] Address: [address] [place] [address] Performed By: #### 5 8410-2 ####[facility]ORATORYCLIA [id number] [address] Platelet mean volume (Bld) [Entitic vol] 11.4 fL Normal 9.0-12.7 [facility] Comment on above: Order Comment: Speci men Type: BLOOD SPECIMENOrdering Facility: [facility] Address: [address] [place] [address] Performed By: #### 5 8410-2 ####[facility] LABORATORYCLIA [id number] [address] Platelets (Bld) [#/Vol] 519 10*3/uL High 150-400 [facility] Comment on above: Order Comment: Speci men Type: BLOOD SPECIMENOrdering Facility: [facility] Address: [address] [place] [address] Performed By: #### 5 8410-2 ####[facility] LABORATORYCLIA [id number] [address] [place] RBC (Bld) [#/Vol] 2.28 10*6/uL Low 4.20-6.00 [facility] Comment on above: Order Comment: Speci men Type: BLOOD SPECIMENOrdering Facility: [facility] Address: [address] [place] [address] Performed By: #### 5 8410-2 ####[facility] LABORATORYCLIA [id number] [address] STATES OF [facility] WBC (Bld) [#/Vol] 10.82 10*3/uL Normal 3.70-11.00 [facility] Comment on above: Order Comment: Speci men Type: BLOOD SPECIMENOrdering Facility: [facility] Address: [address] [place] [address] Performed By: #### 5 8410-2 ####[facility] LABORATORYCLIA [id number] [address] CONSULT PROGon 12-15-2024 CONSULT PROG Normal [facility] CONSULT PROG Normal [facility] CONSULT PROG Normal [facility] Calcium.ionized [Moles/Vol]o n 12-15-2024 Calcium.ionized (BldV) [Mass/Vol] 1.16 mmol/L Normal 1.08-1.30 [facility] Comment on above: Order Comment: Speci men Type: BLOOD SPECIMENOrdering Facility: [facility] Address: [address] [place] [address] Performed By: #### 1 995-0 ####[facility] LABORATORYCLIA [id number] [address] Calcium.ionized adjusted to pH 7.4 (Bld) [Moles/Vol] 1.15 mmol/L Normal 1.08-1.30 [facility] Comment on above: Order Comment: Speci men Type: BLOOD SPECIMENOrdering Facility: [facility] Address: [address] [place] [address] Performed By: #### 1 995-0 ####[facility] LABORATORYCLIA [id number] [address] [place] Magnesium SerPl-mCncon 12-15 Magnesium [Mass/Vol] 2.5 mg/dL High 1.7-2.3 [facility] Comment on above: Order Comment: Speci men Type: BLOOD SPECIMENOrdering Facility: [facility] Address: [address] [place] [address] Performed By: #### 3 3762-6, 77790-8, 54832-5, 2776-1 ####[facility] LABORATORYCLIA [id number] [address] NT-proBNP SerPl-[facility] 12-15 Natriuretic peptide.B prohormone N-Terminal [Mass/Vol] >57943 High <450 [facility] Comment on above: Order Comment: Speci men Type: BLOOD SPECIMENOrdering Facility: [facility] Address: [address] [place] [address] Performed By: #### 3 3762-6, 82573-7, , 2776- ####[facility]ITALCL[facility] [id number] [address] [place] NUTRITIONon 12-15-2024 NUTRITION Normal [facility] Phosphate [facility] 12[facility]15 Phosphate [Mass/Vol] 5.1 mg/dL High 2.7-4.8 [facility] Comment on above: Order Comment: Speci men Type: BLOOD SPECIMENOrdering Facility: [facility] Address: [address] [place] [address] Performed By: #### 3 3762-6, 25806-4, , 277- ####[facility]ATORYCLIA [id number] [address] [place] THERAPY NTon 12-15-2024 THERAPY NT Normal [facility] TYPE + SCREENon 12-15-2024 ABO O Normal [facility] Comment on above: Order Comment: Speci men Type: BLOOD SPECIMENOrdering Facility: [facility] Address: [address] [place] [address] Performed By: #### T SCR ####[facility] BLOOD BANKCLIA [id number] [place] [address] [facility] [place] Rh Nom (Bld) Positive Normal [facility] Comment on above: Order Comment: Speci men Type: BLOOD SPECIMENOrdering Facility: [facility] Address: [address] [place] [address] Performed By: #### T SCR ####[facility]LO[facility] BANKCLIA [id number] [place] [id number] [place] OF [facility] TYPE AND SCREEN EXPIRATION 12/18/2024 23:59 Normal [facility] Comment on above: Order Comment: Speci men Type: BLOOD SPECIMENOrdering Facility: [facility] Address: [address] [place] [address] Performed By: #### T SCR ####[facility] BLOOD BANKCLIA [id number] [place] [id number] [facility] XR CHEST 1V FRONTALon 2024 XR CHEST 1V FRONTAL Normal [facility] Basic metabolic 2000 panelon 12-14-2024 Anion gap [Moles/Vol] 12 mmol/L Normal 8-15 [facility] Comment on above: Order Comment: Speci men Type: BLOOD SPECIMENOrdering Facility: [facility] Address: [address] [place] [address] Performed By: #### 2 4321-2 ####[facility] LABORATORYCLIA [id number] [address] [place] Calcium [Mass/Vol] 8.3 mg/dL Low 8.5-10.2 [facility] Comment on above: Order Comment: Speci men Type: BLOOD SPECIMENOrdering Facility: [facility] Address: [address] [place] [address] Performed By: #### 2 4321-2 ####[facility] LABORATORYCLIA [id number] [address] [place] Chloride [Moles/Vol] 102 mmol/L Normal 98-107 [facility] Comment on above: Order Comment: Speci men Type: BLOOD SPECIMENOrdering Facility: [facility] Address: [address] [place] [address] Performed By: #### 2 4321-2 ####[facility] LABORATORYCLIA [id number] [place] [address] [place] CO2 [Moles/Vol] 31 mmol/L High 22-30 [facility] Comment on above: Order Comment: Speci men Type: BLOOD SPECIMENOrdering Facility: [facility] Address: [address] [place] [address] Performed By: #### 2 4321-2 ####[facility] LABORATORYCLIA [id number] [address] [place] Creatinine [Mass/Vol] 3.26 mg/dL High 0.73-1.22 [facility] Comment on above: Order Comment: Speci men Type: BLOOD SPECIMENOrdering Facility: [facility] Address: [address] [place] [address] Performed By: #### 2 4321-2 ####[facility] LABORATORYCLIA [id number] [address] Creatinine and Glomerular filtration rate.predicted panel (S/P/Bld) 19 mL/min/1.73m??? Low >=60 [facility] Comment on above: Order Comment: Speci men Type: BLOOD SPECIMENOrdering Facility: [facility] Address: [address] [place] [address] Result Comment: Eli mated Glomerular Filtration Rate (eGFR) is calculated using the 2020 CKD-EPI creatinine equation. This equation utilizes serum creatinine, sex, and age as parameters. The creatinine assay has traceable calibration to isotope dilution-mass spectrometry. Refer to KDIGO guidelines for clinical interpretation. In patients with unstable renal function, e.g. those with acute kidney injury, the eGFR may not accurately reflect actual GFR. Performed By: #### 2 4321-2 ####[facility] LABORATORYCLIA [id number] [address] [place] Glucose [Mass/Vol] 225 mg/dL High 74-99 [facility] Comment on above: Order Comment: Speci men Type: BLOOD SPECIMENOrdering Facility: [facility] Address: [address] [place] [address] Result Comment: The [place] Diabetes [employer] (ADA) provides guidance for cutoff values for fasting glucose and random glucose. The ADA defines fasting as no caloric intake for at least 8 hours. Fasting plasma glucose results between 100 to 125 mg/dL indicate increased risk for diabetes (prediabetes).Fasting plasma glucose results greater than or equal to 126 mg/dL meet the criteria for diagnosis of diabetes. In the absence of unequivocal hyperglycemia, results should be confirmed by repeat testing. In a patient with classic symptoms of hyperglycemia or hyperglycemic crisis, random plasma glucose results greater than or equal to 200 mg/dL meet the criteria for diagnosis of diabetes.Reference: Standards of Medical Care in Diabetes 2016, [place] [employer]. Diabetes Care. 2016.39(Suppl 1). Performed By: #### 2 4321-2 ####[facility] LABORATORYCLIA [id number] [place] [address] [place] Potassium [Moles/Vol] 3.6 mmol/L Low 3.7-5.1 [facility] Comment on above: Order Comment: Daríodonal madrigal Type: BLOOD SPECIMENOrdering Facility: [facility] Address: [address] [place] [address] Performed By: #### 2 4321-2 ####[facility] LABORATORYCLIA [id number] [place] [address] [place] Sodium [Moles/Vol] 145 mmol/L High 136-144 [facility] Comment on above: Order Comment: Speci kaitlin Type: BLOOD SPECIMENOrdering Facility: [facility] Address: [address] [place] [id number] Performed By: #### 2 4321-2 ####[facility] LABORATORYCLIA [id number] [place] [address] [place] Urea nitrogen [Mass/Vol] 70 mg/dL High 9-24 [facility] Comment on above: Order Comment: Stuart madrigal Type: BLOOD SPECIMENOrdering Facility: [facility] Address: [address] [place] [id number] Performed By: #### 2 1-2 ####[facility]ORATORYCLIA [id number] [place] [address] [place] CASE MANAGEMon 12-14-2024 CASE MANAGEM Normal [facility] CBC W Auto Differential pane l (Bld)on 12-14-2024 Basophils (Bld) [#/Vol] 0.08 10*3/uL Normal <0.11 [facility] Comment on above: Order Comment: Speci men Type: BLOOD SPECIMENOrdering Facility: [facility] Address: [address] [place] [address] Performed By: #### 5 7021-8 ####[facility] LABORATORYCLIA [id number] [address] Basophils/100 WBC (Bld) 0.6 % Normal [facility] Comment on above: Order Comment: Speci men Type: BLOOD SPECIMENOrdering Facility: [facility] Address: [address] [place] [address] Performed By: #### 5 7021-8 ####[facility] LABORATORYCLIA [id number] [address] STATES OF [facility] Differential cell count method Nom (Bld) Auto Normal [facility] Comment on above: Order Comment: Speci men Type: BLOOD SPECIMENOrdering Facility: [facility] Address: [address] [place] [address] Performed By: #### 5 7021-8 ####[facility]ORATORYCLIA [id number] [place] [address] [place] Eosinophils (Bld) [#/Vol] 0.23 10*3/uL Normal <0.46 [facility] Comment on above: Order Comment: Speci men Type: BLOOD SPECIMENOrdering Facility: [facility] Address: [address] [place] [address] Performed By: #### 5 7021-8 ####[facility] LABORATORYCLIA [id number] [address] [place] Eosinophils/100 WBC (Bld) 1.8 % Normal [facility] Comment on above: Order Comment: Speci men Type: BLOOD SPECIMENOrdering Facility: [facility] Address: [address] [place] [address] Performed By: #### 5 7021-8 ####[facility] LABORATORYCLIA [id number] [address] Erythrocyte distribution width (RBC) [Ratio] 13.4 % Normal 11.5-15.0 [facility] Comment on above: Order Comment: Speci men Type: BLOOD SPECIMENOrdering Facility: [facility] Address: [address] [place] [address] Performed By: #### 5 7021-8 ####[facility] LABORATORYCLIA [id number] [address] Hematocrit (Bld) [Volume fraction] 26.0 % Low 39.0-51.0 [facility] Comment on above: Order Comment: Speci men Type: BLOOD SPECIMENOrdering Facility: [facility] Address: [address] [place] [address] Performed By: #### 5 7021-8 ####[facility] LABORATORYCLIA [id number] [address] Hemoglobin (Bld) [Mass/Vol] 8.1 g/dL Low 13.0-17.0 [facility] Comment on above: Order Comment: Speci men Type: BLOOD SPECIMENOrdering Facility: [facility] Address: [address] [place] [address] Performed By: #### 5 7021-8 ####[facility] LABORATORYCLIA [id number] [address] Immature granulocytes (Bld) [#/Vol] 0.08 10*3/uL Normal <0.10 [facility] Comment on above: Order Comment: Speci men Type: BLOOD SPECIMENOrdering Facility: [facility] Address: [address] [place] [address] Performed By: #### 5 7021-8 ####[facility] LABORATORYCLIA [id number] [address] Immature granulocytes/100 WBC (Bld) 0.6 % Normal [facility] Comment on above: Order Comment: Speci men Type: BLOOD SPECIMENOrdering Facility: [facility] Address: [address] [place] [address] Performed By: #### 5 7021-8 ####[facility] LABORATORYCLIA [id number] [address] [place] Lymphocytes (Bld) [#/Vol] 0.58 10*3/uL Low 1.00-4.00 [facility] Comment on above: Order Comment: Speci men Type: BLOOD SPECIMENOrdering Facility: [facility] Address: [address] [place] [address] Performed By: #### 5 7021-8 ####[facility] LABORATORYCLIA [id number] [address] Lymphocytes/100 WBC (Bld) 4.4 % Normal [facility] Comment on above: Order Comment: Speci men Type: BLOOD SPECIMENOrdering Facility: [facility] Address: [address] [place] [address] Performed By: #### 5 7021-8 ####[facility] LABORATORYCLIA [id number] [address] MCH (RBC) [Entitic mass] 30.3 pg Normal 26.0-34.0 [facility] Comment on above: Order Comment: Speci men Type: BLOOD SPECIMENOrdering Facility: [facility] Address: [address] [place] [address] Performed By: #### 5 7021-8 ####[facility] LABORATORYCLIA [id number] [address] STATES OF [facility] MCHC (RBC) [Mass/Vol] 31.2 g/dL Normal 30.5-36.0 [facility] Comment on above: Order Comment: Speci men Type: BLOOD SPECIMENOrdering Facility: [facility] Address: [address] [place] [address] Performed By: #### 5 7021-8 ####[facility] LABORATORYCLIA [id number] [place] [address] [place] MCV (RBC) [Entitic vol] 97.4 fL Normal 80.0-100.0 [facility] Comment on above: Order Comment: Speci men Type: BLOOD SPECIMENOrdering Facility: [facility] Address: [address] [place] [address] Performed By: #### 5 7021-8 ####[facility] LABORATORYCLIA [id number] [address] [place] Monocytes (Bld) [#/Vol] 0.46 10*3/uL Normal <0.87 [facility] Comment on above: Order Comment: Speci men Type: BLOOD SPECIMENOrdering Facility: [facility] Address: [address] [place] [address] Performed By: #### 5 7021-8 ####[facility] LABORATORYCLIA [id number] [address] [place] Monocytes/100 WBC (Bld) 3.5 % Normal [facility] Comment on above: Order Comment: Speci men Type: BLOOD SPECIMENOrdering Facility: [facility] Address: [address] [place] [address] Performed By: #### 5 7021-8 ####[facility] LABORATORYCLIA [id number] [address] [place] Neutrophils (Bld) [#/Vol] 11.71 10*3/uL High 1.45-7.50 [facility] Comment on above: Order Comment: Speci men Type: BLOOD SPECIMENOrdering Facility: [facility] Address: [address] [place] [address] Performed By: #### 5 7021-8 ####[facility] LABORATORYCLIA [id number] [address] [place] Neutrophils/100 WBC (Bld) 89.1 % Normal [facility] Comment on above: Order Comment: Speci men Type: BLOOD SPECIMENOrdering Facility: [facility] Address: [address] [place] [address] Performed By: #### 5 7021-8 ####[facility]ORATORYCLIA [id number] [address] [place] Nucleated RBC (Bld) [#/Vol] 10*3/uL Normal <0.01 [facility] Comment on above: Order Comment: Speci men Type: BLOOD SPECIMENOrdering Facility: [facility] Address: [address] [place] [address] Performed By: #### 5 7021-8 ####[facility] LABORATORYCLIA [id number] [address] [place] Nucleated RBC/100 WBC (Bld) [Ratio] 0.0 /100 WBC Normal [facility] Comment on above: Order Comment: Speci men Type: BLOOD SPECIMENOrdering Facility: [facility] Address: [address] [place] [address] Performed By: #### 5 7021-8 ####[facility]ATORYCLIA [id number] [address] [place] Platelet mean volume (Bld) [Entitic vol] 11.4 fL Normal 9.0-12.7 [facility] Comment on above: Order Comment: Speci men Type: BLOOD SPECIMENOrdering Facility: [facility] Address: [address] [place] [address] Performed By: #### 5 7021-8 ####[facility]ATORYCLIA [id number] [place] [address] [place] Platelets (Bld) [#/Vol] 638 10*3/uL High 150-400 [facility] Comment on above: Order Comment: Speci men Type: BLOOD SPECIMENOrdering Facility: [facility] Address: [address] [place] [address] Performed By: #### 5 7021-8 ####[facility]ATORYCLIA [id number] [place] [address] [place] RBC (Bld) [#/Vol] 2.67 10*6/uL Low 4.20-6.00 [facility] Comment on above: Order Comment: Speci men Type: BLOOD SPECIMENOrdering Facility: [facility] Address: [address] [place] [address] Performed By: #### 5 7021-8 ####[facility]ATORYCLIA [id number] [address] [place] WBC (Bld) [#/Vol] 13.14 10*3/uL High 3.70-11.00 [facility] Comment on above: Order Comment: Speci men Type: BLOOD SPECIMENOrdering Facility: [facility] Address: [address] [place] [address] Performed By: #### 5 7021-8 ####[facility]ATORYCLIA [id number] [address] CONSULT PROGon 12-14-2024 CONSULT PROG Normal [facility] CONSULT PROG Normal [facility] CONSULT PROG Normal [facility] CONSULT PROG Normal [facility] Calcium.ionized [Moles/Vol]o n 12-14-2024 Calcium.ionized (BldV) [Mass/Vol] 1.08 mmol/L Normal 1.08-1.30 [facility] Comment on above: Order Comment: Speci men Type: BLOOD SPECIMENOrdering Facility: [facility] Address: [address] [place] [address] Performed By: #### 1 995-0 ####[facility]ATORYCLIA [id number] [address] Calcium.ionized adjusted to pH 7.4 (Bld) [Moles/Vol] 1.08 mmol/L Normal 1.08-1.30 [facility] Comment on above: Order Comment: Speci men Type: BLOOD SPECIMENOrdering Facility: [facility] Address: [address] [place] [address] Performed By: #### 1 995-0 ####[facility]ATORYCLIA [id number] [address] [place] Magnesium SerPl-mCncon 12-14 Magnesium [Mass/Vol] 2.8 mg/dL High 1.7-2.3 [facility] Comment on above: Order Comment: Speci men Type: BLOOD SPECIMENOrdering Facility: [facility] Address: [address] [place] [address] Performed By: #### 1 4338-8, 2777-1, 24985-6 ####[facility]ORYCLIA [id number] [place] [id number] [place] NUTRITIONon 12-14-2024 NUTRITION Normal [facility] Phosphate SerPl-mCncon 12-14 Phosphate [Mass/Vol] 5.6 mg/dL High 2.7-4.8 [facility] Comment on above: Order Comment: Speci men Type: BLOOD SPECIMENOrdering Facility: [facility] Address: [address] [place] [address] Performed By: #### 1 4338-8, 2777, ####[facility]ORYCLIA [id number] [address] [place] Prealbumin [Mass/Vol]on 11-24 Prealbumin Nephelometry [Mass/Vol] 15 mg/dL Low 17-36 [facility] Comment on above: Order Comment: Speci men Type: BLOOD SPECIMENOrdering Facility: [facility] Address: [address] [place] [address] Performed By: #### 1 4338-8, 2777-, 67960-0 ####[facility]ORYCLIA [id number] [address] OF [facility] ARTERIAL BLOOD GASESon 12-13 Base excess Calc (Bld) [Moles/Vol] 6 mmol/L High 0-2 [facility] Comment on above: Order Comment: Speci men Type: ARTERIAL BLOOD SPECIMENOrdering Facility: [facility] Address: [address] [place] [address] Performed By: #### A LLBG ####[facility]ATORYCLIA [id number] [address] Body temperature 98.06 [degF] Normal [facility] Comment on above: Order Comment: Speci men Type: ARTERIAL BLOOD SPECIMENOrdering Facility: [facility] Address: [address] [place] [address] Performed By: #### A LLBG ####[facility]ORYCLIA [id number] [address] OF [facility] Calcium.ionized (BldV) [Mass/Vol] 1.18 mmol/L Normal 1.08-1.30 [facility] Comment on above: Order Comment: Speci men Type: ARTERIAL BLOOD SPECIMENOrdering Facility: [facility] Address: [address] [place] [address] Performed By: #### A LLBG ####[facility]CL[facility] [id number] [address] OF [facility] Calcium.ionized adjusted to pH 7.4 (BldA) [Moles/Vol] 1.20 mmol/L Normal 1.08-1.30 [facility] Comment on above: Order Comment: Speci men Type: ARTERIAL BLOOD SPECIMENOrdering Facility: [facility] Address: [address] [place] [address] Performed By: #### A LLBG ####[facility]ORYCLIA [id number] [address] [place] Carboxyhemoglobin (BldA) [Mass fraction] 1.3 % Normal 0.0-2.0 [facility] Comment on above: Order Comment: Speci men Type: ARTERIAL BLOOD SPECIMENOrdering Facility: [facility] Address: [address] [place] [address] Result Comment: Carb oxyhemoglobin Reference Range for Smokers: 2.0-8.0% Performed By: #### A LLBG ####[facility]ATORYCLIA [id number] [address] [place] Chloride [Moles/Vol] 103 mmol/L Normal 98-107 [facility] Comment on above: Order Comment: Speci men Type: ARTERIAL BLOOD SPECIMENOrdering Facility: [facility] Address: [address] [place] [address] Performed By: #### A LLBG ####[facility]ATORYCLIA [id number] [address] Order Comment: Speci men Type: BLOOD SPECIMENOrdering Facility: [facility] Address: [address] [place] [address] Performed By: #### 2 4321-2 ####[facility]ATORYCLIA [id number] [address] CO2 (Bld) [Partial pressure] 46 mm Hg Normal 36-46 [facility] Comment on above: Order Comment: Speci men Type: ARTERIAL BLOOD SPECIMENOrdering Facility: [facility] Address: [address] [place] [address] Performed By: #### A LLBG ####[facility]ORYCLIA [id number] [address] CO2 adjusted to patient's actual temperature (Bld) [Partial pressure] 46 mmHg Normal 36-46 [facility] Comment on above: Order Comment: Speci men Type: ARTERIAL BLOOD SPECIMENOrdering Facility: [facility] Address: [address] [place] [address] Performed By: #### A LLBG ####[facility]ATORYCLIA [id number] [address] FIO2 50 % Normal [facility] Comment on above: Order Comment: Speci men Type: ARTERIAL BLOOD SPECIMENOrdering Facility: [facility] Address: [address] [place] [address] Performed By: #### A LLBG ####[facility]ATORYCLIA [id number] [address] [place] Glucose [Mass/Vol] 290 mg/dL High 60-105 [facility] Comment on above: Order Comment: Speci men Type: ARTERIAL BLOOD SPECIMENOrdering Facility: [facility] Address: [address] [place] [address] Performed By: #### A LLBG ####[facility]ATORYCLIA [id number] [address] [place] HCO3 (Bld) [Moles/Vol] 31 mmol/L High 22-26 [facility] Comment on above: Order Comment: Speci men Type: ARTERIAL BLOOD SPECIMENOrdering Facility: [facility] Address: [address] [place] [address] Performed By: #### A LLBG ####[facility]ORYCLIA [id number] [address] [place] Hematocrit (Bld) [Volume fraction] 29.4 % Low 39.0-51.0 [facility] Comment on above: Order Comment: Speci men Type: ARTERIAL BLOOD SPECIMENOrdering Facility: [facility] Address: [address] [place] [address] Performed By: #### A LLBG ####[facility]ORYCLIA [id number] [address] [place] Hemoglobin (Bld) [Mass/Vol] 9.5 g/dL Low 13.0-17.0 [facility] Comment on above: Order Comment: Speci men Type: ARTERIAL BLOOD SPECIMENOrdering Facility: [facility] Address: [address] [place] [address] Performed By: #### A LLBG ####[facility]ORYCLIA [id number] [address] [place] Lactate [Moles/Vol] 0.9 mmol/L Normal 0.5-2.2 [facility] Comment on above: Order Comment: Speci men Type: ARTERIAL BLOOD SPECIMENOrdering Facility: [facility] Address: [address] [place] [address] Performed By: #### A LLBG ####[facility]ATORYCLIA [id number] [address] [place] Methemoglobin (Bld) [Mass fraction] 0.7 % Normal 0.0-1.5 [facility] Comment on above: Order Comment: Speci men Type: ARTERIAL BLOOD SPECIMENOrdering Facility: [facility] Address: [address] [place] [address] Performed By: #### A LLBG ####[facility]ATORYCLIA [id number] [address] O2 THERAPY Hi-Flow Nasal Cannula-Heated Normal [facility] Comment on above: Order Comment: Speci men Type: ARTERIAL BLOOD SPECIMENOrdering Facility: [facility] Address: [address] [place] [address] Performed By: #### A LLBG ####[facility]ATORYCLIA [id number] [address] [place] Oxygen (Bld) [Partial pressure] 119 mm Hg High 85-95 [facility] Comment on above: Order Comment: Speci men Type: ARTERIAL BLOOD SPECIMENOrdering Facility: [facility] Address: [address] [place] [address] Performed By: #### A LLBG ####[facility]ATORYCLIA [id number] [address] Oxygen adjusted to patient's actual temperature (Bld) [Partial pressure] 117 mmHg High 85-95 [facility] Comment on above: Order Comment: Speci men Type: ARTERIAL BLOOD SPECIMENOrdering Facility: [facility] Address: [address] [place] [address] Performed By: #### A LLBG ####[facility]ORYCLIA [id number] [address] [place] Oxyhemoglobin (BldA) [Mass fraction] 97 % Normal 95-98 [facility] Comment on above: Order Comment: Speci men Type: ARTERIAL BLOOD SPECIMENOrdering Facility: [facility] Address: [address] [place] [address] Performed By: #### A LLBG ####[facility]ORYCLIA [id number] [address] [place] pH (Bld) 7.44 [pH] Normal 7.35-7.45 [facility] Comment on above: Order Comment: Speci men Type: ARTERIAL BLOOD SPECIMENOrdering Facility: [facility] Address: [address] [place] [address] Performed By: #### A LLBG ####[facility]ATORYCLIA [id number] [address] STATES [facility] pH adjusted to patient's actual temperature (Bld) 7.44 Normal 7.35-7.45 [facility] Comment on above: Order Comment: Speci men Type: ARTERIAL BLOOD SPECIMENOrdering Facility: [facility] Address: [address] [place] [address] Performed By: #### A LLBG ####[facility]ATORYCLIA [id number] [address] [place] PO2 / FIO2 RATIO 238 mmHg Low >300 [facility] Comment on above: Order Comment: Speci men Type: ARTERIAL BLOOD SPECIMENOrdering Facility: [facility] Address: [address] [place] [address] Performed By: #### A LLBG ####[facility]ATORYCLIA [id number] [address] [place] Potassium [Moles/Vol] 3.7 mmol/L Normal 3.5-5.0 [facility] Comment on above: Order Comment: Speci men Type: ARTERIAL BLOOD SPECIMENOrdering Facility: [facility] Address: [address] [place] [address] Performed By: #### A LLBG ####[facility]ATORYCLIA [id number] [address] [place] Sodium [Moles/Vol] 147 mmol/L High 136-144 [facility] Comment on above: Order Comment: Speci men Type: ARTERIAL BLOOD SPECIMENOrdering Facility: [facility] Address: [address] [place] [address] Performed By: #### A LLBG ####[facility]ATORYCLIA [id number] [place] [address] [place] Base excess Calc (Bld) [Moles/Vol] 6 mmol/L High 0-2 [facility] Comment on above: Order Comment: Speci men Type: ARTERIAL BLOOD SPECIMENOrdering Facility: [facility] Address: [address] [place] [address] Performed By: #### A LLBG ####[facility]ATORYCLIA [id number] [address] Body temperature 98.42 [degF] Normal [facility] Comment on above: Order Comment: Speci men Type: ARTERIAL BLOOD SPECIMENOrdering Facility: [facility] Address: [address] [place] [address] Performed By: #### A LLBG ####[facility]ATORYCLIA [id number] [address] [place] Calcium.ionized (BldV) [Mass/Vol] 1.20 mmol/L Normal 1.08-1.30 [facility] Comment on above: Order Comment: Speci men Type: ARTERIAL BLOOD SPECIMENOrdering Facility: [facility] Address: [address] [place] [address] Performed By: #### A LLBG ####[facility]ATORYCLIA [id number] [address] OF [facility] Calcium.ionized adjusted to pH 7.4 (BldA) [Moles/Vol] 1.22 mmol/L Normal 1.08-1.30 [facility] Comment on above: Order Comment: Speci men Type: ARTERIAL BLOOD SPECIMENOrdering Facility: [facility] Address: [address] [place] [address] Performed By: #### A LLBG ####[facility]ATORYCLIA [id number] [address] [place] Carboxyhemoglobin (BldA) [Mass fraction] 1.3 % Normal 0.0-2.0 [facility] Comment on above: Order Comment: Speci men Type: ARTERIAL BLOOD SPECIMENOrdering Facility: [facility] Address: [address] [place] [address] Result Comment: Carb oxyhemoglobin Reference Range for Smokers: 2.0-8.0% Performed By: #### A LLBG ####[facility]ORYCLIA [id number] [address] [place] Chloride [Moles/Vol] 103 mmol/L Normal 97-105 [facility] Comment on above: Order Comment: Speci men Type: ARTERIAL BLOOD SPECIMENOrdering Facility: [facility] Address: [address] [place] [address] Performed By: #### A LLBG ####[facility] LABORATORYCLIA [id number] [address] [place] CO2 (Bld) [Partial pressure] 48 mm Hg High 36-46 [facility] Comment on above: Order Comment: Speci men Type: ARTERIAL BLOOD SPECIMENOrdering Facility: [facility] Address: [address] [place] [address] Performed By: #### A LLBG ####[facility]ORYCLIA [id number] [address] CO2 adjusted to patient's actual temperature (Bld) [Partial pressure] 48 mmHg High 36-46 [facility] Comment on above: Order Comment: Speci men Type: ARTERIAL BLOOD SPECIMENOrdering Facility: [facility] Address: [address] [place] [address] Performed By: #### A LLBG ####[facility]ORYCLIA [id number] [address] FIO2 50 % Normal [facility] Comment on above: Order Comment: Speci men Type: ARTERIAL BLOOD SPECIMENOrdering Facility: [facility] Address: [address] [place] [address] Performed By: #### A LLBG ####[facility]ORYCLIA [id number] [address] [place] Glucose [Mass/Vol] 280 mg/dL High 60-105 [facility] Comment on above: Order Comment: Speci men Type: ARTERIAL BLOOD SPECIMENOrdering Facility: [facility] Address: [address] [place] [address] Performed By: #### A LLBG ####[facility]ORATORYCLIA [id number] [place] [address] [place] HCO3 (Bld) [Moles/Vol] 31 mmol/L High 22-26 [facility] Comment on above: Order Comment: Speci men Type: ARTERIAL BLOOD SPECIMENOrdering Facility: [facility] Address: [address] [place] [address] Performed By: #### A LLBG ####[facility]ATORYCLIA [id number] [address] [place] Hematocrit (Bld) [Volume fraction] 30.4 % Low 39.0-51.0 [facility] Comment on above: Order Comment: Speci men Type: ARTERIAL BLOOD SPECIMENOrdering Facility: [facility] Address: [address] [place] [address] Performed By: #### A LLBG ####[facility]ORYCLIA [id number] [address] [place] Hemoglobin (Bld) [Mass/Vol] 9.8 g/dL Low 13.0-17.0 [facility] Comment on above: Order Comment: Speci men Type: ARTERIAL BLOOD SPECIMENOrdering Facility: [facility] Address: [address] [place] [address] Performed By: #### A LLBG ####[facility]ORYCLIA [id number] [address] [place] Lactate [Moles/Vol] 1.1 mmol/L Normal 0.5-2.2 [facility] Comment on above: Order Comment: Speci men Type: ARTERIAL BLOOD SPECIMENOrdering Facility: [facility] Address: [address] [place] [address] Performed By: #### A LLBG ####[facility]ATORYCLIA [id number] [address] [place] Methemoglobin (Bld) [Mass fraction] 0.5 % Normal 0.0-1.5 [facility] Comment on above: Order Comment: Speci men Type: ARTERIAL BLOOD SPECIMENOrdering Facility: [facility] Address: [address] [place] [address] Performed By: #### A LLBG ####[facility]ORYCLIA [id number] [address] [place] O2 THERAPY Positive Normal [facility] Comment on above: Order Comment: Speci men Type: ARTERIAL BLOOD SPECIMENOrdering Facility: [facility] Address: [address] [place] [address] Performed By: #### A LLBG ####[facility]ATORYCLIA [id number] [address] [place] Oxygen (Bld) [Partial pressure] 106 mm Hg High 85-95 [facility] Comment on above: Order Comment: Speci men Type: ARTERIAL BLOOD SPECIMENOrdering Facility: [facility] Address: [address] [place] [address] Performed By: #### A LLBG ####[facility]ORYCLIA [id number] [address] Oxygen adjusted to patient's actual temperature (Bld) [Partial pressure] 106 mmHg High 85-95 [facility] Comment on above: Order Comment: Speci men Type: ARTERIAL BLOOD SPECIMENOrdering Facility: [facility] Address: [address] [place] [address] Performed By: #### A LLBG ####[facility]ORYCLIA [id number] [address] [place] Oxyhemoglobin (BldA) [Mass fraction] 96 % Normal 95-98 [facility] Comment on above: Order Comment: Speci men Type: ARTERIAL BLOOD SPECIMENOrdering Facility: [facility] Address: [address] [place] [address] Performed By: #### A LLBG ####[facility]ORYCLIA [id number] [address] [place] pH (Bld) 7.42 [pH] Normal 7.35-7.45 [facility] Comment on above: Order Comment: Speci men Type: ARTERIAL BLOOD SPECIMENOrdering Facility: [facility] Address: [address] [place] [address] Performed By: #### A LLBG ####[facility]ORYCLIA [id number] [address] [place] pH adjusted to patient's actual temperature (Bld) 7.42 Normal 7.35-7.45 [facility] Comment on above: Order Comment: Speci men Type: ARTERIAL BLOOD SPECIMENOrdering Facility: [facility] Address: [address] [place] [address] Performed By: #### A LLBG ####[facility]ORYCLIA [id number] [address] [place] PO2 / FIO2 RATIO 212 mmHg Low >300 [facility] Comment on above: Order Comment: Speci men Type: ARTERIAL BLOOD SPECIMENOrdering Facility: [facility] Address: [address] [place] [address] Performed By: #### A LLBG ####[facility]ORYCLIA [id number] [address] [place] Potassium [Moles/Vol] 3.8 mmol/L Normal 3.5-5.0 [facility] Comment on above: Order Comment: Speci men Type: ARTERIAL BLOOD SPECIMENOrdering Facility: [facility] Address: [address] [place] [address] Performed By: #### A LLBG ####[facility]ORYCLIA [id number] [address] [place] Sodium [Moles/Vol] 149 mmol/L High 136-144 [facility] Comment on above: Order Comment: Speci men Type: ARTERIAL BLOOD SPECIMENOrdering Facility: [facility] Address: [address] [place] [address] Performed By: #### A LLBG ####[facility]ORYCLIA [id number] [address] [place] Base excess Calc (Bld) [Moles/Vol] 8 mmol/L High 0-2 [facility] Comment on above: Order Comment: Speci men Type: ARTERIAL BLOOD SPECIMENOrdering Facility: [facility] Address: [address] [place] [address] Performed By: #### A LLBG ####[facility]ORYCLIA [id number] [address] Body temperature 97.7 [degF] Normal [facility] Comment on above: Order Comment: Speci men Type: ARTERIAL BLOOD SPECIMENOrdering Facility: [facility] Address: [address] [place] [address] Performed By: #### A LLBG ####[facility]ORYCLIA [id number] [address] Calcium.ionized (BldV) [Mass/Vol] 1.17 mmol/L Normal 1.08-1.30 [facility] Comment on above: Order Comment: Speci men Type: ARTERIAL BLOOD SPECIMENOrdering Facility: [facility] Address: [address] [place] [address] Performed By: #### A LLBG ####[facility]ORATORYCLIA [id number] [address] Calcium.ionized adjusted to pH 7.4 (BldA) [Moles/Vol] 1.18 mmol/L Normal 1.08-1.30 [facility] Comment on above: Order Comment: Speci men Type: ARTERIAL BLOOD SPECIMENOrdering Facility: [facility] Address: [address] [place] [address] Performed By: #### A LLBG ####[facility] LABORATORYCLIA [id number] [address] [place] Carboxyhemoglobin (BldA) [Mass fraction] 1.0 % Normal 0.0-2.0 [facility] Comment on above: Order Comment: Speci men Type: ARTERIAL BLOOD SPECIMENOrdering Facility: [facility] Address: [address] [place], [place] [address] Result Comment: Carb oxyhemoglobin Reference Range for Smokers: 2.0-8.0% Performed By: #### A LLBG ####[facility]ATORYCLIA [id number] [address] Chloride [Moles/Vol] 106 mmol/L High 97-105 [facility] Comment on above: Order Comment: Speci men Type: ARTERIAL BLOOD SPECIMENOrdering Facility: [facility] Address: [address] [place] [address] Performed By: #### A LLBG ####[facility] LABORATORYCLIA [id number] [address] [place] CO2 (Bld) [Partial pressure] 51 mm Hg High 36-46 [facility] Comment on above: Order Comment: Speci men Type: ARTERIAL BLOOD SPECIMENOrdering Facility: [facility] Address: [address] [place] [address] Performed By: #### A LLBG ####[facility]ATORYCLIA [id number] [address] CO2 adjusted to patient's actual temperature (Bld) [Partial pressure] 50 mmHg High 36-46 [facility] Comment on above: Order Comment: Speci men Type: ARTERIAL BLOOD SPECIMENOrdering Facility: [facility] Address: [address] [place] [address] Performed By: #### A LLBG ####[facility]ATORYCLIA [id number] [address] [place] FIO2 50 % Normal [facility] Comment on above: Order Comment: Speci men Type: ARTERIAL BLOOD SPECIMENOrdering Facility: [facility] Address: [address] [place] [address] Performed By: #### A LLBG ####[facility]ATORYCLIA [id number] [place] [address] [place] Glucose [Mass/Vol] 289 mg/dL High 60-105 [facility] Comment on above: Order Comment: Speci men Type: ARTERIAL BLOOD SPECIMENOrdering Facility: [facility] Address: [address] [place] [address] Performed By: #### A LLBG ####[facility]ORYCLIA [id number] [address] [place] HCO3 (Bld) [Moles/Vol] 33 mmol/L High 22-26 [facility] Comment on above: Order Comment: Speci men Type: ARTERIAL BLOOD SPECIMENOrdering Facility: [facility] Address: [address] [place] [address] Performed By: #### A LLBG ####[facility]ATORYCLIA [id number] [address] [place] Hematocrit (Bld) [Volume fraction] 29.5 % Low 39.0-51.0 [facility] Comment on above: Order Comment: Speci men Type: ARTERIAL BLOOD SPECIMENOrdering Facility: [facility] Address: [address] [place] [address] Performed By: #### A LLBG ####[facility]ORYCLIA [id number] [address] [place] Hemoglobin (Bld) [Mass/Vol] 9.5 g/dL Low 13.0-17.0 [facility] Comment on above: Order Comment: Speci men Type: ARTERIAL BLOOD SPECIMENOrdering Facility: [facility] Address: [address] [place] [address] Performed By: #### A LLBG ####[facility]ORYCLIA [id number] [address] [place] Lactate [Moles/Vol] 1.2 mmol/L Normal 0.5-2.2 [facility] Comment on above: Order Comment: Speci men Type: ARTERIAL BLOOD SPECIMENOrdering Facility: [facility] Address: [address] [place] [address] Performed By: #### A LLBG ####[facility]ORYCLIA [id number] [address] [place] Methemoglobin (Bld) [Mass fraction] 0.6 % Normal 0.0-1.5 [facility] Comment on above: Order Comment: Speci men Type: ARTERIAL BLOOD SPECIMENOrdering Facility: [facility] Address: [address] [place] [address] Performed By: #### A LLBG ####[facility]ATORYCLIA [id number] [address] [place] O2 THERAPY Positive Normal [facility] Comment on above: Order Comment: Speci men Type: ARTERIAL BLOOD SPECIMENOrdering Facility: [facility] Address: [address] [place] [address] Performed By: #### A LLBG ####[facility]ATORYCLIA [id number] [address] [place] Oxygen (Bld) [Partial pressure] 57 mm Hg Low 85-95 [facility] Comment on above: Order Comment: Speci men Type: ARTERIAL BLOOD SPECIMENOrdering Facility: [facility] Address: [address] [place] [address] Performed By: #### A LLBG ####[facility]ORYCLIA [id number] [address] [place] Oxygen adjusted to patient's actual temperature (Bld) [Partial pressure] 55 mmHg Low 85-95 [facility] Comment on above: Order Comment: Speci men Type: ARTERIAL BLOOD SPECIMENOrdering Facility: [facility] Address: [address] [place] [address] Performed By: #### A LLBG ####[facility]ORYCLIA [id number] [address] [place] Oxyhemoglobin (BldA) [Mass fraction] 84 % Low 95-98 [facility] Comment on above: Order Comment: Speci men Type: ARTERIAL BLOOD SPECIMENOrdering Facility: [facility] Address: [address] [place] [address] Performed By: #### A LLBG ####[facility]ATORYCLIA [id number] [address] [place] pH (Bld) 7.43 [pH] Normal 7.35-7.45 [facility] Comment on above: Order Comment: Speci men Type: ARTERIAL BLOOD SPECIMENOrdering Facility: [facility] Address: [address] [place] [address] Performed By: #### A LLBG ####[facility]ATORYCLIA [id number] [address] pH adjusted to patient's actual temperature (Bld) 7.43 Normal 7.35-7.45 [facility] Comment on above: Order Comment: Speci men Type: ARTERIAL BLOOD SPECIMENOrdering Facility: [facility] Address: [address] [place] [address] Performed By: #### A LLBG ####[facility]ATORYCLIA [id number] [address] [place] PO2 / FIO2 RATIO 114 mmHg Low >300 [facility] Comment on above: Order Comment: Speci men Type: ARTERIAL BLOOD SPECIMENOrdering Facility: [facility] Address: [address] [place] [address] Performed By: #### A LLBG ####[facility]ORYCLIA [id number] [address] [place] Potassium [Moles/Vol] 3.7 mmol/L Normal 3.5-5.0 [facility] Comment on above: Order Comment: Speci men Type: ARTERIAL BLOOD SPECIMENOrdering Facility: [facility] Address: [address] [place] [address] Performed By: #### A LLBG ####[facility]ORYCLIA [id number] [address] [place] Sodium [Moles/Vol] 146 mmol/L High 136-144 [facility] Comment on above: Order Comment: Speci men Type: ARTERIAL BLOOD SPECIMENOrdering Facility: [facility] Address: [address] [place] [address] Performed By: #### A LLBG ####[facility]ATORYCLIA [id number] [place] [address] [place] Base excess Calc (Bld) [Moles/Vol] 6 mmol/L High 0-2 [facility] Comment on above: Order Comment: Speci men Type: ARTERIAL BLOOD SPECIMENOrdering Facility: [facility] Address: [address] [place] [address] Performed By: #### A LLBG ####[facility]ATORYCLIA [id number] [address] Body temperature 97.52 [degF] Normal [facility] Comment on above: Order Comment: Speci men Type: ARTERIAL BLOOD SPECIMENOrdering Facility: [facility] Address: [address] [place] [address] Performed By: #### A LLBG ####[facility]ATORYCLIA [id number] [address] Calcium.ionized (BldV) [Mass/Vol] 1.12 mmol/L Normal 1.08-1.30 [facility] Comment on above: Order Comment: Speci men Type: ARTERIAL BLOOD SPECIMENOrdering Facility: [facility] Address: [address] [place] [address] Performed By: #### A LLBG ####[facility]ORYCLIA [id number] [address] Calcium.ionized adjusted to pH 7.4 (BldA) [Moles/Vol] 1.11 mmol/L Normal 1.08-1.30 [facility] Comment on above: Order Comment: Speci men Type: ARTERIAL BLOOD SPECIMENOrdering Facility: [facility] Address: [address] [place] [address] Performed By: #### A LLBG ####[facility]ORYCLIA [id number] [address] [place] Carboxyhemoglobin (BldA) [Mass fraction] 0.9 % Normal 0.0-2.0 [facility] Comment on above: Order Comment: Speci men Type: ARTERIAL BLOOD SPECIMENOrdering Facility: [facility] Address: [address] [place] [address] Result Comment: Carb oxyhemoglobin Reference Range for Smokers: 2.0-8.0% Performed By: #### A LLBG ####[facility]ORYCLIA [id number] [address] [place] Chloride [Moles/Vol] 108 mmol/L High 97-105 [facility] Comment on above: Order Comment: Speci men Type: ARTERIAL BLOOD SPECIMENOrdering Facility: [facility] Address: [address] [place] [address] Performed By: #### A LLBG ####[facility]ATORYCLIA [id number] [address] CO2 (Bld) [Partial pressure] 55 mm Hg High 36-46 [facility] Comment on above: Order Comment: Speci men Type: ARTERIAL BLOOD SPECIMENOrdering Facility: [facility] Address: [address] [place] [address] Performed By: #### A LLBG ####[facility]ORYCLIA [id number] [address] CO2 adjusted to patient's actual temperature (Bld) [Partial pressure] 53 mmHg High 36-46 [facility] Comment on above: Order Comment: Speci men Type: ARTERIAL BLOOD SPECIMENOrdering Facility: [facility] Address: [address] [place] [address] Performed By: #### A LLBG ####[facility]ORYCLIA [id number] [address] [place] Glucose [Mass/Vol] 289 mg/dL High 60-105 [facility] Comment on above: Order Comment: Speci men Type: ARTERIAL BLOOD SPECIMENOrdering Facility: [facility] Address: [address] [place] [address] Performed By: #### A LLBG ####[facility]ATORYCLIA [id number] [address] [place] HCO3 (Bld) [Moles/Vol] 32 mmol/L High 22-26 [facility] Comment on above: Order Comment: Speci men Type: ARTERIAL BLOOD SPECIMENOrdering Facility: [facility] Address: [address] [place] [address] Performed By: #### A LLBG ####[facility]ATORYCLIA [id number] [address] [place] Hematocrit (Bld) [Volume fraction] 31.2 % Low 39.0-51.0 [facility] Comment on above: Order Comment: Speci men Type: ARTERIAL BLOOD SPECIMENOrdering Facility: [facility] Address: [address] [place] [address] Performed By: #### A LLBG ####[facility]ORYCLIA [id number] [address] [place] Hemoglobin (Bld) [Mass/Vol] 10.1 g/dL Low 13.0-17.0 [facility] Comment on above: Order Comment: Speci men Type: ARTERIAL BLOOD SPECIMENOrdering Facility: [facility] Address: [address] [place] [address] Performed By: #### A LLBG ####[facility]ORYCLIA [id number] [address] [place] Lactate [Moles/Vol] 1.2 mmol/L Normal 0.5-2.2 [facility] Comment on above: Order Comment: Speci men Type: ARTERIAL BLOOD SPECIMENOrdering Facility: [facility] Address: [address] [place] [address] Performed By: #### A LLBG ####[facility]ATORYCLIA [id number] [address] LITERS 15 Liters/min Normal [facility] Comment on above: Order Comment: Speci men Type: ARTERIAL BLOOD SPECIMENOrdering Facility: [facility] Address: [address] [place] [address] Performed By: #### A LLBG ####[facility]ORYCLIA [id number] [address] [place] Methemoglobin (Bld) [Mass fraction] 0.6 % Normal 0.0-1.5 [facility] Comment on above: Order Comment: Speci men Type: ARTERIAL BLOOD SPECIMENOrdering Facility: [facility] Address: [address] [place] [address] Performed By: #### A LLBG ####[facility]ATORYCLIA [id number] [address] [place] O2 THERAPY NR=Non-Rebreather Mask Normal [facility] Comment on above: Order Comment: Speci men Type: ARTERIAL BLOOD SPECIMENOrdering Facility: [facility] Address: [address] [place] [address] Performed By: #### A LLBG ####[facility]ORYCLIA [id number] [address] [place] Oxygen (Bld) [Partial pressure] 142 mm Hg High 85-95 [facility] Comment on above: Order Comment: Speci men Type: ARTERIAL BLOOD SPECIMENOrdering Facility: [facility] Address: [address] [place] [address] Performed By: #### A LLBG ####[facility]ORYCLIA [id number] [address] Oxygen adjusted to patient's actual temperature (Bld) [Partial pressure] 139 mmHg High 85-95 [facility] Comment on above: Order Comment: Speci men Type: ARTERIAL BLOOD SPECIMENOrdering Facility: [facility] Address: [address] [place] [address] Performed By: #### A LLBG ####[facility]ORYCLIA [id number] [address] Oxyhemoglobin (BldA) [Mass fraction] 97 % Normal 95-98 [facility] Comment on above: Order Comment: Speci men Type: ARTERIAL BLOOD SPECIMENOrdering Facility: [facility] Address: [address] [place] [address] Performed By: #### A LLBG ####[facility]ORYCLIA [id number] [address] [place] pH (Bld) 7.38 [pH] Normal 7.35-7.45 [facility] Comment on above: Order Comment: Speci men Type: ARTERIAL BLOOD SPECIMENOrdering Facility: [facility] Address: [address] [place] [address] Performed By: #### A LLBG ####[facility]ORYCLIA [id number] [address] pH adjusted to patient's actual temperature (Bld) 7.39 Normal 7.35-7.45 [facility] Comment on above: Order Comment: Speci men Type: ARTERIAL BLOOD SPECIMENOrdering Facility: [facility] Address: [address] [place] [address] Performed By: #### A LLBG ####[facility]ATORYCLIA [id number] [address] STATES OF [facility] Potassium [Moles/Vol] 3.5 mmol/L Normal 3.5-5.0 [facility] Comment on above: Order Comment: Speci men Type: ARTERIAL BLOOD SPECIMENOrdering Facility: [facility] Address: [address] [place] [address] Performed By: #### A LLBG ####[facility]ATORYCLIA [id number] [address] STATES OF [facility] Sodium [Moles/Vol] 146 mmol/L High 136-144 [facility] Comment on above: Order Comment: Speci men Type: ARTERIAL BLOOD SPECIMENOrdering Facility: [facility] Address: [address] [place] [address] Performed By: #### A LLBG ####[facility]ATORYCLIA [id number] [address] [place] Bacteria Bld Culton 12-14-19 Bacteria identified Cx Nom (Bld) CULTURE, BLOOD: No growth 5 days Normal [facility] Comment on above: Performed By: #### 6 00-7 ####[facility]ORYCLIA [id number] [address] Bacteria identified Cx Nom (Bld) CULTURE, BLOOD: No growth 5 days Normal [facility] Comment on above: Performed By: #### 6 00-7 ####[facility]ORYCLIA [id number] [address] [place] Basic metabolic 2000 panelon 12-13-2024 Anion gap [Moles/Vol] 11 mmol/L Normal 8-15 [facility] Comment on above: Order Comment: Speci men Type: BLOOD SPECIMENOrdering Facility: [facility] Address: [address] [place] [address] Performed By: #### 2 4321-2 ####[facility]ORYCLIA [id number] [address] STATES OF [facility] Calcium [Mass/Vol] 8.5 mg/dL Normal 8.5-10.2 [facility] Comment on above: Order Comment: Speci men Type: BLOOD SPECIMENOrdering Facility: [facility] Address: [address] [place] [address] Performed By: #### 2 4321-2 ####[facility]ORYCLIA [id number] [address] [place] CO2 [Moles/Vol] 32 mmol/L High 22-30 [facility] Comment on above: Order Comment: Speci men Type: BLOOD SPECIMENOrdering Facility: [facility] Address: [address] [place] [address] Performed By: #### 2 4321-2 ####[facility]ORYCLIA [id number] [address] [place] Creatinine [Mass/Vol] 2.82 mg/dL High 0.73-1.22 [facility] Comment on above: Order Comment: Speci men Type: BLOOD SPECIMENOrdering Facility: [facility] Address: [address] [place] [address] Performed By: #### 2 4321-2 ####[facility]ATORYCLIA [id number] [address] Creatinine and Glomerular filtration rate.predicted panel (S/P/Bld) 22 mL/min/1.73m??? Low >=60 [facility] Comment on above: Order Comment: Speci men Type: BLOOD SPECIMENOrdering Facility: [facility] Address: [address] [place] [address] Result Comment: Eli mated Glomerular Filtration Rate (eGFR) is calculated using the 2020 CKD-EPI creatinine equation. This equation utilizes serum creatinine, sex, and age as parameters. The creatinine assay has traceable calibration to isotope dilution-mass spectrometry. Refer to KDIGO guidelines for clinical interpretation. In patients with unstable renal function, e.g. those with acute kidney injury, the eGFR may not accurately reflect actual GFR. Performed By: #### 2 4321-2 ####[facility]ATORYCLIA [id number] [place] [address] [place] Glucose [Mass/Vol] 293 mg/dL High 74-99 [facility] Comment on above: Order Comment: Stuart madrigal Type: BLOOD SPECIMENOrdering Facility: [facility] Address: [address] [place] [address] Result Comment: The [place] [employer] (ADA) provides guidance for cutoff values for fasting glucose and random glucose. The ADA defines fasting as no caloric intake for at least 8 hours. Fasting plasma glucose results between 100 to 125 mg/dL indicate increased risk for diabetes (prediabetes).Fasting plasma glucose results greater than or equal to 126 mg/dL meet the criteria for diagnosis of diabetes. In the absence of unequivocal hyperglycemia, results should be confirmed by repeat testing. In a patient with classic symptoms of hyperglycemia or hyperglycemic crisis, random plasma glucose results greater than or equal to 200 mg/dL meet the criteria for diagnosis of diabetes.Reference: Standards of Medical Care in Diabetes 2016, [place] [employer]. Diabetes Care. 2016.39(Suppl 1). Performed By: #### 2 4321-2 ####[facility]ATORYCLIA [id number] [place] [address] [place] Potassium [Moles/Vol] 3.9 mmol/L Normal 3.7-5.1 [facility] Comment on above: Order Comment: Stuart madrigal Type: BLOOD SPECIMENOrdering Facility: [facility] Address: [address] [place] [address] Performed By: #### 2 4321-2 ####[facility]ORYCLIA [id number] [place] [address] [place] Sodium [Moles/Vol] 146 mmol/L High 136-144 [facility] Comment on above: Order Comment: Stuart madrigal Type: BLOOD SPECIMENOrdering Facility: [facility] Address: [address] [place] [address] Performed By: #### 2 4321-2 ####[facility]ATORYCLIA [id number] [address] STATES OF [facility] Urea nitrogen [Mass/Vol] 68 mg/dL High 9-24 [facility] Comment on above: Order Comment: Speci men Type: BLOOD SPECIMENOrdering Facility: [facility] Address: [address] [place] [address] Performed By: #### 2 4321-2 ####[facility]ATORYCLIA [id number] [address] CBC panel Auto (Bld)on 12-13 Erythrocyte distribution width (RBC) [Ratio] 14.0 % Normal 11.5-15.0 [facility] Comment on above: Order Comment: Speci men Type: BLOOD SPECIMENOrdering Facility: [facility] Address: [address] [place] [address] Performed By: #### 5 8410-2 ####[facility]ATORYCLIA [id number] [address] STATES [facility] Hematocrit (Bld) [Volume fraction] 31.8 % Low 39.0-51.0 [facility] Comment on above: Order Comment: Speci men Type: BLOOD SPECIMENOrdering Facility: [facility] Address: [address] [place] [address] Performed By: #### 5 8410-2 ####[facility]ORYCLIA [id number] [address] [place] Hemoglobin (Bld) [Mass/Vol] 10.1 g/dL Low 13.0-17.0 [facility] Comment on above: Order Comment: Speci men Type: BLOOD SPECIMENOrdering Facility: [facility] Address: [address] [place] [address] Performed By: #### 5 8410-2 ####[facility]ATORYCLIA [id number] [address] [place] MCH (RBC) [Entitic mass] 30.1 pg Normal 26.0-34.0 [facility] Comment on above: Order Comment: Speci men Type: BLOOD SPECIMENOrdering Facility: [facility] Address: [address] [place] [address] Performed By: #### 5 8410-2 ####[facility]ATORYCLIA [id number] [address] MCHC (RBC) [Mass/Vol] 31.8 g/dL Normal 30.5-36.0 [facility] Comment on above: Order Comment: Speci men Type: BLOOD SPECIMENOrdering Facility: [facility] Address: [address] [place] [address] Performed By: #### 5 8410-2 ####[facility]ATORYCLIA [id number] [address] OF [facility] MCV (RBC) [Entitic vol] 94.9 fL Normal 80.0-100.0 [facility] Comment on above: Order Comment: Speci men Type: BLOOD SPECIMENOrdering Facility: [facility] Address: [address] [place] [address] Performed By: #### 5 8410-2 ####[facility]ORYCLIA [id number] [address] Nucleated RBC (Bld) [#/Vol] 10*3/uL Normal <0.01 [facility] Comment on above: Order Comment: Speci men Type: BLOOD SPECIMENOrdering Facility: [facility] Address: [address] [place] [address] Performed By: #### 5 8410-2 ####[facility]ATORYCLIA [id number] [address] Platelet mean volume (Bld) [Entitic vol] 11.2 fL Normal 9.0-12.7 [facility] Comment on above: Order Comment: Speci men Type: BLOOD SPECIMENOrdering Facility: [facility] Address: [address] [place] [address] Performed By: #### 5 8410-2 ####[facility] LABORATORYCLIA [id number] [place] [address] [place] (Bld) [#/Vol] 907 10*3/uL High 150-400 [facility] Comment on above: Order Comment: Speci men Type: BLOOD SPECIMENOrdering Facility: [facility] Address: [address] [place] [address] Performed By: #### 5 8410-2 ####[facility]ATORYCLIA [id number] [place] [address] [place] RBC (Bld) [#/Vol] 3.35 10*6/uL Low 4.20-6.00 [facility] Comment on above: Order Comment: Speci men Type: BLOOD SPECIMENOrdering Facility: [facility] Address: [address] [place] [address] Performed By: #### 5 8410-2 ####[facility]ATORYCLIA [id number] [address] [place] WBC (Bld) [#/Vol] 17.22 10*3/uL High 3.70-11.00 [facility] Comment on above: Order Comment: Speci men Type: BLOOD SPECIMENOrdering Facility: [facility] Address: [address] [place] [address] Performed By: #### 5 8410-2 ####[facility]ATORYCLIA [id number] [address] [place] CONSULTon 12-13-2024 CONSULT Normal [facility] CONSULT PROGon 12-13-2024 CONSULT PROG Normal [facility] CONSULT PROG Normal [facility] CT ABD/PEL W IVCONon 025 CT ABD/PEL W IVCON Normal [facility] CTA CHEST (NON GATED) W IVCO N PEon 12-13-2024 CTA CHEST (NON GATED) W IVCON PE Normal [facility] Calcium.ionized [Moles/Vol]o n 12-13-2024 Calcium.ionized (BldV) [Mass/Vol] 1.11 mmol/L Normal 1.08-1.30 [facility] Comment on above: Order Comment: Speci men Type: BLOOD SPECIMENOrdering Facility: [facility] Address: [address] [place] [address] Performed By: #### 1 995-0 ####[facility]ATORYCLIA [id number] [address] Calcium.ionized adjusted to pH 7.4 (Bld) [Moles/Vol] 1.10 mmol/L Normal 1.08-1.30 [facility] Comment on above: Order Comment: Speci men Type: BLOOD SPECIMENOrdering Facility: [facility] Address: [address] [place] [address] Performed By: #### 1 995-0 ####[facility]ORYCLIA [id number] [address] Comprehensive metabolic 2000 panelon 12-13-2024 Albumin [Mass/Vol] 3.0 g/dL Low 3.9-4.9 [facility] Comment on above: Order Comment: Speci men Type: BLOOD SPECIMENOrdering Facility: [facility] Address: [address] [place] [address] Performed By: #### 1 9123-9, 01587-0, 71898-4, 2777-1, 2571-8 ####[facility]ORYCLIA [id number] [address] ALP [Catalytic activity/Vol] 81 U/L Normal 38-113 [facility] Comment on above: Order Comment: Speci men Type: BLOOD SPECIMENOrdering Facility: [facility] Address: [address] [place] [address] Performed By: #### 1 9123-9, 62761-5, 10437-8, 2777-1, 2571-8 ####[facility]ORYCLIA [id number] [address] ALT With P-5'-P [Catalytic activity/Vol] 20 U/L Normal 10-54 [facility] Comment on above: Order Comment: Speci men Type: BLOOD SPECIMENOrdering Facility: [facility] Address: [address] [place] [address] Performed By: #### 1 9123-9, 09756-5, 32840-3, 2777-1, 257-8 ####[facility]ATORYCLIA [id number] [place] [address] [place] Anion gap [Moles/Vol] 12 mmol/L Normal 8-15 [facility] Comment on above: Order Comment: Speci men Type: BLOOD SPECIMENOrdering Facility: [facility] Address: [address] [place] [address] Performed By: #### 1 9123-9, 22007-7, 34631-2, 2777-1, 257-8 ####[facility]ORYCLIA [id number] [place] [address] [place] AST With P-5'-P [Catalytic activity/Vol] 17 U/L Normal 14-40 [facility] Comment on above: Order Comment: Speci men Type: BLOOD SPECIMENOrdering Facility: [facility] Address: [address] [place] [address] Performed By: #### 1 9123-9, 83423-0, 47583-0, 2777-1, 257-8 ####[facility]ORYCLIA [id number] [place] [address] [place] Bilirubin [Mass/Vol] 0.3 mg/dL Normal 0.2-1.3 [facility] Comment on above: Order Comment: Speci men Type: BLOOD SPECIMENOrdering Facility: [facility] Address: [address] [place] [address] Performed By: #### 1 9123-9, 57396-9, 85669-1, 2777-1, 257-8 ####[facility]ORYCLIA [id number] [place] [address] [place] Calcium [Mass/Vol] 8.8 mg/dL Normal 8.5-10.2 [facility] Comment on above: Order Comment: Speci men Type: BLOOD SPECIMENOrdering Facility: [facility] Address: [address] [place] [address] Performed By: #### 1 9123-9, 00264-4, 95229-2, 2777-1, 257-8 ####[facility]ORYCLIA [id number] [place] [address] [place] Chloride [Moles/Vol] 104 mmol/L Normal 98-107 [facility] Comment on above: Order Comment: Speci men Type: BLOOD SPECIMENOrdering Facility: [facility] Address: [address] [place] [address] Performed By: #### 1 9123-9, 51732-6, 40279-4, 2777-1, 257-8 ####[facility]ITALCLIA [id number] [place] [address] [place] CO2 [Moles/Vol] 30 mmol/L Normal 22-30 [facility] Comment on above: Order Comment: Speci men Type: BLOOD SPECIMENOrdering Facility: [facility] Address: [address] [place] [address] Performed By: #### 1 9123-9, 41250-7, 56014-1, 2777-1, 257-8 ####[facility]ITALCLIA [id number] [place] [address] [place] Creatinine [Mass/Vol] 2.31 mg/dL High 0.73-1.22 [facility] Comment on above: Order Comment: Speci men Type: BLOOD SPECIMENOrdering Facility: [facility] Address: [address] [place] [address] Performed By: #### 1 9123-9, 09709-1, 99442-5, 2777-1, 257-8 ####[facility]ATORYCLIA [id number] [address] [place] Creatinine and Glomerular filtration rate.predicted panel (S/P/Bld) 28 mL/min/1.73m??? Low >=60 [facility] Comment on above: Order Comment: Speci men Type: BLOOD SPECIMENOrdering Facility: [facility] Address: [address] [place] [address] Result Comment: Eli mated Glomerular Filtration Rate (eGFR) is calculated using the 2020 CKD-EPI creatinine equation. This equation utilizes serum creatinine, sex, and age as parameters. The creatinine assay has traceable calibration to isotope dilution-mass spectrometry. Refer to KDIGO guidelines for clinical interpretation. In patients with unstable renal function, e.g. those with acute kidney injury, the eGFR may not accurately reflect actual GFR. Performed By: #### 1 9123-9, 82551-5, 40382-2, 2777-1, 2570-8 ####[facility]ATORYCLIA [id number] [place] [address] [place] Glucose [Mass/Vol] 286 mg/dL High 74-99 [facility] Comment on above: Order Comment: Stuart madrigal Type: BLOOD SPECIMENOrdering Facility: [facility] Address: [address] [place] [address] Result Comment: The [place] Diabetes [employer] (ADA) provides guidance for cutoff values for fasting glucose and random glucose. The ADA defines fasting as no caloric intake for at least 8 hours. Fasting plasma glucose results between 100 to 125 mg/dL indicate increased risk for diabetes (prediabetes).Fasting plasma glucose results greater than or equal to 126 mg/dL meet the criteria for diagnosis of diabetes. In the absence of unequivocal hyperglycemia, results should be confirmed by repeat testing. In a patient with classic symptoms of hyperglycemia or hyperglycemic crisis, random plasma glucose results greater than or equal to 200 mg/dL meet the criteria for diagnosis of diabetes.Reference: Standards of Medical Care in Diabetes 2016, [place] [employer]. Diabetes Care. 2016.39(Suppl 1). Performed By: #### 1 9123-9, 53082-0, 65190-2, 2777-1, 257-8 ####[facility]ORYCLIA [id number] [place] [address] [place] Potassium [Moles/Vol] 3.7 mmol/L Normal 3.7-5.1 [facility] Comment on above: Order Comment: Stuart madrigal Type: BLOOD SPECIMENOrdering Facility: [facility] Address: [address] [place] [address] Performed By: #### 1 9123-9, 88849-3, 00131-8, 2777-1, 2571-8 ####[facility]ORYCLIA [id number] [place] [address] [place] Protein [Mass/Vol] 6.5 g/dL Normal 6.3-8.0 [facility] Comment on above: Order Comment: Speci men Type: BLOOD SPECIMENOrdering Facility: [facility] Address: [address] [place] [address] Performed By: #### 1 9123-9, 19115-5, 55091-0, 2777-1, 2571-8 ####[facility]ORYCLIA [id number] [place] [address] [place] Sodium [Moles/Vol] 146 mmol/L High 136-144 [facility] Comment on above: Order Comment: Speci men Type: BLOOD SPECIMENOrdering Facility: [facility] Address: [address] [place] [address] Performed By: #### 1 9123-9, 09656-9, 87341-5, 2777-1, 2571-8 ####[facility]ORYCLIA [id number] [place] [address] [place] Urea nitrogen [Mass/Vol] 63 mg/dL High 9-24 [facility] Comment on above: Order Comment: Speci men Type: BLOOD SPECIMENOrdering Facility: [facility] Address: [address] [place] [address] Performed By: #### 1 9123-9, 16996-6, 39065-0, 2777-1, 2571-8 ####[facility]ORYCLIA [id number] [place] [id number] [place] ECG COMPLETEon 12-13-2024 ECG COMPLETE Normal [facility] HIGH SENSITIVITY TROPONIN To n 12-13-2024 Troponin T.cardiac High sensitivity method [Mass/Vol] 193 ng/L High <12 [facility] Comment on above: Order Comment: Speci men Type: BLOOD SPECIMENOrdering Facility: [facility] Address: [facility] [place] [address] Performed By: #### H STNT ####[facility]ORYCLIA [id number] [address] OF [facility] Magnesium SerPl[facility]13 Magnesium [Mass/Vol] 2.6 mg/dL High 1.7-2.3 [facility] Comment on above: Order Comment: Speci men Type: BLOOD SPECIMENOrdering Facility: [facility] Address: [address] [place] [address] Performed By: #### 1 9123-9, 27515-1, 07999-1, 277-1, 2570-8 ####[facility]ITALCLIA [id number] [address] [place] NT-proBNP [facility] 12-13 Natriuretic peptide.B prohormone N-Terminal [Mass/Vol] 58153 pg/mL High <450 [facility] Comment on above: Order Comment: Speci men Type: BLOOD SPECIMENOrdering Facility: [facility] Address: [address] [place] [address] Performed By: #### 1 9123-9, 40722-9, 81259-6, 277-1, 8 ####[facility]ITALCLIA [id number] [address] [place] NURSING PROGon 12-13-2024 NURSING PROG Normal [facility] NUTRITIONon 12-13-2024 NUTRITION Normal [facility] Phosphate SerPl[facility]on 12-13 Phosphate [Mass/Vol] 4.9 mg/dL High 2.7-4.8 [facility] Comment on above: Order Comment: Speci men Type: BLOOD SPECIMENOrdering Facility: [facility] Address: [address] [place] [id number] Performed By: #### 1 9123-9, 16589-9, 88954-7, 2777-1, 257-8 ####[facility]ORYCLIA [id number] [address] [place] THERAPY NTon 12-13-2024 THERAPY NT Normal [facility] Trigl SerPl-mCncon Triglyceride [Mass/Vol] 290 mg/dL High <150 [facility] Comment on above: Order Comment: Speci men Type: BLOOD SPECIMENOrdering Facility: [facility] Address: [address] [place] [address] Result Comment: <150 mg/dL, Normal 150-199 mg/dL, Borderline high 200-499 mg/dL, High>499 mg/dL, Very highReference:1. National Cholesterol Education Program ATP III Guideline At-A-Glance Quick Desk Reference: National Heart, Lung, and Blood [place]. National Institutes of Health. 2001: NIH Publication No. 01-3305. Performed By: #### 1 9123-9, 34796-9, 01821-9, 2777-1, 2571-8 ####[facility]ORYCLIA [id number] [address] Triglyceride [Mass/Vol]on FASTING TIME 0 hrs Normal [facility] Comment on above: Order Comment: Speci men Type: BLOOD SPECIMENOrdering Facility: [facility] Address: [address] [place] [address] Performed By: #### 1 9123-9, 00034-2, 18489-3, 2777-1, 2571-8 ####[facility]ATORYCLIA [id number] [address] [place] URINALYSIS, REFLEX MICROSCOP ICon 12-13-2024 Bilirubin Ql (U) Negative Normal Negative [facility] Comment on above: Order Comment: Speci men Type: URINE SPECIMENOrdering Facility: [facility] Address: [address] [place] [address] Performed By: #### L [id number] ####[facility]ORYCLIA [id number] [address] [place] Clarity (Unsp spec) Clear Normal Clear [facility] Comment on above: Order Comment: Speci men Type: URINE SPECIMENOrdering Facility: [facility] Address: [address] [place] [address] Performed By: #### L [id number] ####[facility]ORYCLIA [id number] [address] [place] Color (U) Light Yellow Normal yellow [facility] Comment on above: Order Comment: Speci men Type: URINE SPECIMENOrdering Facility: [facility] Address: [address] [place] [address] Performed By: #### L [id number] ####[facility]ATORYCLIA [id number] [address] [place] Glucose Test strip (U) [Mass/Vol] 1+ Abnormal Trace, Negative [facility] Comment on above: Order Comment: Speci men Type: URINE SPECIMENOrdering Facility: [facility] Address: [address] [place] [address] Performed By: #### L [id number] ####[facility]ORYCLIA [id number] [address] [place] Hemoglobin Ql (U) 1+ Abnormal Negative, Trace [facility] Comment on above: Order Comment: Speci men Type: URINE SPECIMENOrdering Facility: [facility] Address: [address] [place] [address] Performed By: #### L [id number] ####[facility]ORYCLIA [id number] [address] [place] Ketones Ql (U) Negative Normal Negative, Trace [facility] Comment on above: Order Comment: Speci men Type: URINE SPECIMENOrdering Facility: [facility] Address: [address] [place] [address] Performed By: #### L [id number] ####[facility]ATORYCLIA [id number] [address] Leukocyte esterase Test strip Ql (U) Negative Normal Negative, 25 Lola/uL [facility] Comment on above: Order Comment: Speci men Type: URINE SPECIMENOrdering Facility: [facility] Address: [address] [place] [address] Performed By: #### L [id number] ####[facility]ORYCLIA [id number] [address] [place] Nitrite Ql (U) Negative Normal Negative [facility] Comment on above: Order Comment: Speci men Type: URINE SPECIMENOrdering Facility: [facility] Address: [address] [place] [address] Performed By: #### L [id number] ####[facility]ORYCLIA [id number] [address] [place] pH (U) 7.0 [pH] Normal 5.0-8.0 [facility] Comment on above: Order Comment: Speci men Type: URINE SPECIMENOrdering Facility: [facility] Address: [address] [place] [address] Performed By: #### L [id number] ####[facility]CLIA [id number] [address] Protein (U) [Mass/Vol] 1+ Abnormal Trace , Negative [facility] Comment on above: Order Comment: Speci men Type: URINE SPECIMENOrdering Facility: [facility] Address: [address] [place] [address] Performed By: #### L [id number] ####[facility]ORYCLIA [id number] [place] [id number] [place] RBC LM.HPF (Urine sed) [#/Area] 0-3 /HPF Normal 0-3 /HPF [facility] Comment on above: Order Comment: Speci men Type: URINE SPECIMENOrdering Facility: [facility] Address: [address] [place] [address] Performed By: #### L [id number] ####[facility]ORYCLIA [id number] [address] Specific gravity (U) [Rel density] 1.026 Normal 1.005-1.030 [facility] Comment on above: Order Comment: Speci men Type: URINE SPECIMENOrdering Facility: [facility] Address: [address] [place] [address] Performed By: #### L [id number] ####[facility]ORYCLIA [id number] [address] [place] Urobilinogen Ql (U) Normal Normal Normal [facility] Comment on above: Order Comment: Speci men Type: URINE SPECIMENOrdering Facility: [facility] Address: [address] [place] [address] Performed By: #### L [id number] ####[facility]ATORYCLIA [id number] [address] [place] WBC LM.HPF (Urine sed) [#/Area] 0-5 /HPF Normal 0-5 /HPF [facility] Comment on above: Order Comment: Speci men Type: URINE SPECIMENOrdering Facility: [facility] Address: [address] [place] [address] Performed By: #### L [id number] ####[facility]ATORYCLIA [id number] [address] [place] XR ABDOMEN 1V SUPINEon 12-13 XR ABDOMEN 1V SUPINE Normal [facility] XR CHEST 1V FRONTALon 2024 XR CHEST 1V FRONTAL Normal [facility] XR CHEST 1V FRONTAL Normal [facility] BRIEF OP NOTon 12-12-2024 BRIEF OP NOT Normal [facility] Bacteria Wnd Culton 12-13-19 25 Bacteria identified Cx Nom (Wound) CULTURE, WOUND: No growth GRAM STAIN: No organisms seen Many Polymorphonuclear leukocytes Normal [facility] Comment on above: Performed By: #### 6 462-6 ####[facility]ORYCLIA [id number] [address] [place] Basic metabolic 2000 panelon 12-12-2024 Anion gap [Moles/Vol] 15 mmol/L Normal 8-15 [facility] Comment on above: Order Comment: Speci men Type: BLOOD SPECIMENOrdering Facility: [facility] Address: [address] [place] [address] Performed By: #### 2 4321-2 ####[facility]ORYCLIA [id number] [place] [address] [place] Calcium [Mass/Vol] 8.7 mg/dL Normal 8.5-10.2 [facility] Comment on above: Order Comment: Speci men Type: BLOOD SPECIMENOrdering Facility: [facility] Address: [address] [place] [address] Performed By: #### 2 4321-2 ####[facility]ATORYCLIA [id number] [place] [address] [place] Chloride [Moles/Vol] 104 mmol/L Normal 98-107 [facility] Comment on above: Order Comment: Speci men Type: BLOOD SPECIMENOrdering Facility: [facility] Address: [address] [place] [address] Performed By: #### 2 4321-2 ####[facility]ORYCLIA [id number] [address] [place] CO2 [Moles/Vol] 26 mmol/L Normal 22-30 [facility] Comment on above: Order Comment: Speci men Type: BLOOD SPECIMENOrdering Facility: [facility] Address: [address] [place] [address] Performed By: #### 2 4321-2 ####[facility]ORYCLIA [id number] [address] [place] Creatinine [Mass/Vol] 2.35 mg/dL High 0.73-1.22 [facility] Comment on above: Order Comment: Speci men Type: BLOOD SPECIMENOrdering Facility: [facility] Address: [address] [place] [address] Performed By: #### 2 4321-2 ####[facility]ATORYCLIA [id number] [address] Creatinine and Glomerular filtration rate.predicted panel (S/P/Bld) 28 mL/min/1.73m??? Low >=60 [facility] Comment on above: Order Comment: Speci men Type: BLOOD SPECIMENOrdering Facility: [facility] Address: [address] [place] [address] Result Comment: Eli mated Glomerular Filtration Rate (eGFR) is calculated using the 2020 CKD-EPI creatinine equation. This equation utilizes serum creatinine, sex, and age as parameters. The creatinine assay has traceable calibration to isotope dilution-mass spectrometry. Refer to KDIGO guidelines for clinical interpretation. In patients with unstable renal function, e.g. those with acute kidney injury, the eGFR may not accurately reflect actual GFR. Performed By: #### 2 4321-2 ####[facility]ORYCLIA [id number] [place] [address] [place] Glucose [Mass/Vol] 219 mg/dL High 74-99 [facility] Comment on above: Order Comment: Stuart madrigal Type: BLOOD SPECIMENOrdering Facility: [facility] Address: [address] [place] [address] Result Comment: The [place] [employer] (ADA) provides guidance for cutoff values for fasting glucose and random glucose. The ADA defines fasting as no caloric intake for at least 8 hours. Fasting plasma glucose results between 100 to 125 mg/dL indicate increased risk for diabetes (prediabetes).Fasting plasma glucose results greater than or equal to 126 mg/dL meet the criteria for diagnosis of diabetes. In the absence of unequivocal hyperglycemia, results should be confirmed by repeat testing. In a patient with classic symptoms of hyperglycemia or hyperglycemic crisis, random plasma glucose results greater than or equal to 200 mg/dL meet the criteria for diagnosis of diabetes.Reference: Standards of Medical Care in Diabetes 2016, [place] [employer]. Diabetes Care. 2016.39(Suppl 1). Performed By: #### 2 4321-2 ####[facility]ORYCLIA [id number] [place] [address] [place] Potassium [Moles/Vol] 4.5 mmol/L Normal 3.7-5.1 [facility] Comment on above: Order Comment: Stuart madrigal Type: BLOOD SPECIMENOrdering Facility: [facility] Address: [address] [place], [place] [address] Performed By: #### 2 4321-2 ####[facility]ORYCLIA [id number] [place] [address] [place] Sodium [Moles/Vol] 145 mmol/L High 136-144 [facility] Comment on above: Order Comment: Speci men Type: BLOOD SPECIMENOrdering Facility: [facility] Address: [address] [place] [address] Performed By: #### 2 4321-2 ####[facility]ORYCLIA [id number] [place] [address] [place] Urea nitrogen [Mass/Vol] 64 mg/dL High 9-24 [facility] Comment on above: Order Comment: Speci men Type: BLOOD SPECIMENOrdering Facility: [facility] Address: [address] [place] [address] Performed By: #### 2 4321-2 ####[facility] LABORATORYCLIA [id number] [address] [place] CASE MANAGEMon 12-12-2024 CASE MANAGEM Normal [facility] CASE MANAGEM Normal [facility] CBC panel Auto (Bld)on 12-12 Erythrocyte distribution width (RBC) [Ratio] 13.8 % Normal 11.5-15.0 [facility] Comment on above: Order Comment: Speci men Type: BLOOD SPECIMENOrdering Facility: [facility] Address: [address] [place] [address] Performed By: #### 5 8410-2 ####[facility] LABORATORYCLIA [id number] [place] [address] [place] Hematocrit (Bld) [Volume fraction] 28.0 % Low 39.0-51.0 [facility] Comment on above: Order Comment: Speci men Type: BLOOD SPECIMENOrdering Facility: [facility] Address: [address] [place] [address] Performed By: #### 5 8410-2 ####[facility] LABORATORYCLIA [id number] [place] [address] [place] Hemoglobin (Bld) [Mass/Vol] 9.1 g/dL Low 13.0-17.0 [facility] Comment on above: Order Comment: Speci men Type: BLOOD SPECIMENOrdering Facility: [facility] Address: [address] [place] [address] Performed By: #### 5 8410-2 ####[facility] LABORATORYCLIA [id number] [address] MCH (RBC) [Entitic mass] 30.8 pg Normal 26.0-34.0 [facility] Comment on above: Order Comment: Speci men Type: BLOOD SPECIMENOrdering Facility: [facility] Address: [address] [place] [address] Performed By: #### 5 8410-2 ####[facility] LABORATORYCLIA [id number] [address] MCHC (RBC) [Mass/Vol] 32.5 g/dL Normal 30.5-36.0 [facility] Comment on above: Order Comment: Speci men Type: BLOOD SPECIMENOrdering Facility: [facility] Address: [address] [place] [address] Performed By: #### 5 8410-2 ####[facility] LABORATORYCLIA [id number] [address] MCV (RBC) [Entitic vol] 94.9 fL Normal 80.0-100.0 [facility] Comment on above: Order Comment: Speci men Type: BLOOD SPECIMENOrdering Facility: [facility] Address: [address] [place] [address] Performed By: #### 5 8410-2 ####[facility] LABORATORYCLIA [id number] [address] Nucleated RBC (Bld) [#/Vol] 10*3/uL Normal <0.01 [facility] Comment on above: Order Comment: Speci men Type: BLOOD SPECIMENOrdering Facility: [facility] Address: [address] [place] [address] Performed By: #### 5 8410-2 ####[facility] LABORATORYCLIA [id number] [address] Platelet mean volume (Bld) [Entitic vol] 11.4 fL Normal 9.0-12.7 [facility] Comment on above: Order Comment: Speci men Type: BLOOD SPECIMENOrdering Facility: [facility] Address: [address] [place] [address] Performed By: #### 5 8410-2 ####[facility] LABORATORYCLIA [id number] [place] [address] [place] Platelets (Bld) [#/Vol] 648 10*3/uL High 150-400 [facility] Comment on above: Order Comment: Speci men Type: BLOOD SPECIMENOrdering Facility: [facility] Address: [address] [place] [address] Performed By: #### 5 8410-2 ####[facility] LABORATORYCLIA [id number] [address] [place] RBC (Bld) [#/Vol] 2.95 10*6/uL Low 4.20-6.00 [facility] Comment on above: Order Comment: Speci men Type: BLOOD SPECIMENOrdering Facility: [facility] Address: [address] [place] [address] Performed By: #### 5 8410-2 ####[facility] LABORATORYCLIA [id number] [address] [place] WBC (Bld) [#/Vol] 18.67 10*3/uL High 3.70-11.00 [facility] Comment on above: Order Comment: Speci men Type: BLOOD SPECIMENOrdering Facility: [facility] Address: [address] [place] [address] Performed By: #### 5 8410-2 ####[facility] LABORATORYCLIA [id number] [address] [place] CONSULTon 12-12-2024 CONSULT Normal [facility] CONSULT PROGon 12-12-2024 CONSULT PROG Normal [facility] CT DRN PLACE PERIT/RETROP FL BIon 12-12-[address] PERIT/RETROP FL BI Normal [facility] HISTORY PHYSICALon 5 HISTORY PHYSICAL Normal [facility] NURSING PROGon 12-12-2024 NURSING PROG Normal [facility] Bacteria Bld Culton 12-12-19 25 Bacteria identified Cx Nom (Bld) CULTURE, BLOOD: No growth 5 days Normal [facility] Comment on above: Performed By: #### 6 00-7 ####[facility] LABORATORYCLIA [id number] [place] [address] [place] Basic metabolic 2000 panelon 12-11-2024 Anion gap [Moles/Vol] 11 mmol/L Normal 8-15 [facility] Comment on above: Order Comment: Speci men Type: BLOOD SPECIMENOrdering Facility: [facility] Address: [address] [place] [address] Performed By: #### 2 4321-2 ####[facility] LABORATORYCLIA [id number] [place] [address] [place] Calcium [Mass/Vol] 8.9 mg/dL Normal 8.5-10.2 [facility] Comment on above: Order Comment: Speci men Type: BLOOD SPECIMENOrdering Facility: [facility] Address: [address] [place] [address] Performed By: #### 2 4321-2 ####[facility] LABORATORYCLIA [id number] [place] [address] [place] Chloride [Moles/Vol] 105 mmol/L Normal 98-107 [facility] Comment on above: Order Comment: Speci men Type: BLOOD SPECIMENOrdering Facility: [facility] Address: [address] [place] [address] Performed By: #### 2 4321-2 ####[facility] LABORATORYCLIA [id number] [place] [address] [place] CO2 [Moles/Vol] 31 mmol/L High 22-30 [facility] Comment on above: Order Comment: Speci men Type: BLOOD SPECIMENOrdering Facility: [facility] Address: [address] [place] [address] Performed By: #### 2 4321-2 ####[facility] LABORATORYCLIA [id number] [place] [id number] [place] Creatinine [Mass/Vol] 2.26 mg/dL High 0.73-1.22 [facility] Comment on above: Order Comment: Stuart madrigal Type: BLOOD SPECIMENOrdering Facility: [facility] Address: [address] [place] [address] Performed By: #### 2 4321-2 ####[facility] LABORATORYCLIA [id number] [place] [id number] [facility] Creatinine and Glomerular filtration rate.predicted panel (S/P/Bld) 29 mL/min/1.73m??? Low >=60 [facility] Comment on above: Order Comment: Stuart madrigal Type: BLOOD SPECIMENOrdering Facility: [facility] Address: [address] [place] [address] Result Comment: Eli mated Glomerular Filtration Rate (eGFR) is calculated using the 2020 CKD-EPI creatinine equation. This equation utilizes serum creatinine, sex, and age as parameters. The creatinine assay has traceable calibration to isotope dilution-mass spectrometry. Refer to KDIGO guidelines for clinical interpretation. In patients with unstable renal function, e.g. those with acute kidney injury, the eGFR may not accurately reflect actual GFR. Performed By: #### 2 4321-2 ####[facility] LABORATORYCLIA [id number] [address] [place] Glucose [Mass/Vol] 129 mg/dL High 74-99 [facility] Comment on above: Order Comment: Stuart madrigal Type: BLOOD SPECIMENOrdering Facility: [facility] Address: [address] [place] [address] Result Comment: The [place] [employer] (ADA) provides guidance for cutoff values for fasting glucose and random glucose. The ADA defines fasting as no caloric intake for at least 8 hours. Fasting plasma glucose results between 100 to 125 mg/dL indicate increased risk for diabetes (prediabetes).Fasting plasma glucose results greater than or equal to 126 mg/dL meet the criteria for diagnosis of diabetes. In the absence of unequivocal hyperglycemia, results should be confirmed by repeat testing. In a patient with classic symptoms of hyperglycemia or hyperglycemic crisis, random plasma glucose results greater than or equal to 200 mg/dL meet the criteria for diagnosis of diabetes.Reference: Standards of Medical Care in Diabetes 2016, [place] [employer]. Diabetes Care. 2016.39(Suppl 1). Performed By: #### 2 4321-2 ####[facility] LABORATORYCLIA [id number] [address] STATES OF [facility] Potassium [Moles/Vol] 4.5 mmol/L Normal 3.7-5.1 [facility] Comment on above: Order Comment: Speci men Type: BLOOD SPECIMENOrdering Facility: [facility] Address: [address] [place] [address] Performed By: #### 2 4321-2 ####[facility] LABORATORYCLIA [id number] [address] STATES [facility] Sodium [Moles/Vol] 147 mmol/L High 136-144 [facility] Comment on above: Order Comment: Speci men Type: BLOOD SPECIMENOrdering Facility: [facility] Address: [address] [place] [address] Performed By: #### 2 4321-2 ####[facility] LABORATORYCLIA [id number] [address] STATES [facility] Urea nitrogen [Mass/Vol] 60 mg/dL High 9-24 [facility] Comment on above: Order Comment: Speci men Type: BLOOD SPECIMENOrdering Facility: [facility] Address: [address] [place] [address] Performed By: #### 2 4321-2 ####[facility] LABORATORYCLIA [id number] [place] [id number] [place] CASE MANAGEMon 12-11-2024 CASE MANAGEM Normal [facility] CBC panel Auto (Bld)on 12-11 Erythrocyte distribution width (RBC) [Ratio] 13.5 % Normal 11.5-15.0 [facility] Comment on above: Order Comment: Speci men Type: BLOOD SPECIMENOrdering Facility: [facility] Address: [address] [place], [place] [address] Performed By: #### 5 8410-2 ####[facility] LABORATORYCLIA [id number] [address] Hematocrit (Bld) [Volume fraction] 31.1 % Low 39.0-51.0 [facility] Comment on above: Order Comment: Speci men Type: BLOOD SPECIMENOrdering Facility: [facility] Address: [address] [place] [address] Performed By: #### 5 8410-2 ####[facility] LABORATORYCLIA [id number] [address] OF [facility] Hemoglobin (Bld) [Mass/Vol] 9.9 g/dL Low 13.0-17.0 [facility] Comment on above: Order Comment: Speci men Type: BLOOD SPECIMENOrdering Facility: [facility] Address: [address] [place] [address] Performed By: #### 5 8410-2 ####[facility] LABORATORYCLIA [id number] [address] STATES OF [facility] MCH (RBC) [Entitic mass] 30.4 pg Normal 26.0-34.0 [facility] Comment on above: Order Comment: Speci men Type: BLOOD SPECIMENOrdering Facility: [facility] Address: [address] [place] [address] Performed By: #### 5 8410-2 ####[facility] LABORATORYCLIA [id number] [address] [place] MCHC (RBC) [Mass/Vol] 31.8 g/dL Normal 30.5-36.0 [facility] Comment on above: Order Comment: Speci men Type: BLOOD SPECIMENOrdering Facility: [facility] Address: [address] [place] [address] Performed By: #### 5 8410-2 ####[facility] LABORATORYCLIA [id number] [address] [place] MCV (RBC) [Entitic vol] 95.4 fL Normal 80.0-100.0 [facility] Comment on above: Order Comment: Speci men Type: BLOOD SPECIMENOrdering Facility: [facility] Address: [address] [place] [address] Performed By: #### 5 8410-2 ####[facility] LABORATORYCLIA [id number] [address] OF [place] Nucleated RBC (Bld) [#/Vol] 10*3/uL Normal <0.01 [facility] Comment on above: Order Comment: Speci men Type: BLOOD SPECIMENOrdering Facility: [facility] Address: [address] [place] [address] Performed By: #### 5 8410-2 ####[facility] LABORATORYCLIA [id number] [address] [place] Platelet mean volume (Bld) [Entitic vol] 11.2 fL Normal 9.0-12.7 [facility] Comment on above: Order Comment: Speci men Type: BLOOD SPECIMENOrdering Facility: [facility] Address: [address] [place] [address] Performed By: #### 5 8410-2 ####[facility] LABORATORYCLIA [id number] [address] [place] Platelets (Bld) [#/Vol] 569 10*3/uL High 150-400 [facility] Comment on above: Order Comment: Speci men Type: BLOOD SPECIMENOrdering Facility: [facility] Address: [address] [place] [address] Performed By: #### 5 8410-2 ####[facility] LABORATORYCLIA [id number] [address] [place] RBC (Bld) [#/Vol] 3.26 10*6/uL Low 4.20-6.00 [facility] Comment on above: Order Comment: Speci men Type: BLOOD SPECIMENOrdering Facility: [facility] Address: [address] [place] [address] Performed By: #### 5 8410-2 ####[facility] LABORATORYCLIA [id number] [address] [place] WBC (Bld) [#/Vol] 21.76 10*3/uL High 3.70-11.00 [facility] Comment on above: Order Comment: Specdonal madrigal Type: BLOOD SPECIMENOrdering Facility: [facility] Address: [address] [place] [address] Performed By: #### 5 8410-2 ####[facility] LABORATORYCLIA [id number] [address] CONSULT PROGon 12-11-2024 CONSULT PROG Normal [facility] CONSULT PROG Normal [facility] PT panel Coag (PPP)on 2024 INR Coag (PPP) [Relative time] 1.0 {INR} Normal 0.9-1.3 [facility] Comment on above: Order Comment: Specdonal madrigal Type: BLOOD SPECIMENOrdering Facility: [facility] Address: [address] [place] [address] Result Comment: Merna min K Antagonist (VKA) Therapeutic Range: INR 2 to 3 (Target INR of 2.5)Note: For patients treated with VKA drugs, such as warfarin, the [place] [employer] 2012 Guideline recommends a therapeutic INR range of 2 to 3 (target INR of 2.5). This recommendation includes high-risk patients with antiphospholipid syndrome with previous arterial or venous thromboembolism, current-generation mechanical or bioprosthetic aortic heart valve replacement.Note: Patients with mechanical aortic valve replacement and additional risk factors for thromboembolic events (atrial fibrillation, previous thromboembolism, LV dysfunction, hypercoagulable conditions) or an older generation mechanical AVR (i.e., ball in-Cage) or any mechanical MVR should have a INR therapeutic range of 2.5 to 3.5 (target INR of 3).Urszula GH, et al. Chest 2012, 141:7S-47SNishimura RA, et al. [facility] 2017, 70: 252-289 Performed By: #### 3 4528-0 ####[facility] LABORATORYCLIA [id number] [address] PT Coag (PPP) [Time] 11.0 s Normal 9.7-13.0 [facility] Comment on above: Order Comment: Speci men Type: BLOOD SPECIMENOrdering Facility: [facility] Address: [address] [place] [address] Performed By: #### 3 4528-0 ####[facility] LABORATORYCLIA [id number] [address] [place] THERAPY NTon 12-11-2024 THERAPY NT Normal [facility] THERAPY NT Normal [facility] Basic metabolic 2000 panelon 12-10-2024 Anion gap [Moles/Vol] 13 mmol/L Normal 8-15 [facility] Comment on above: Order Comment: Speci men Type: BLOOD SPECIMENOrdering Facility: [facility] Address: [address] [place] [address] Performed By: #### 2 4321-2 ####[facility] LABORATORYCLIA [id number] [place] [address] [place] Calcium [Mass/Vol] 8.8 mg/dL Normal 8.5-10.2 [facility] Comment on above: Order Comment: Speci men Type: BLOOD SPECIMENOrdering Facility: [facility] Address: [address] [place] [address] Performed By: #### 2 4321-2 ####[facility] LABORATORYCLIA [id number] [place] [address] [place] Chloride [Moles/Vol] 103 mmol/L Normal 98-107 [facility] Comment on above: Order Comment: Speci men Type: BLOOD SPECIMENOrdering Facility: [facility] Address: [address] [place] [address] Performed By: #### 2 4321-2 ####[facility] LABORATORYCLIA [id number] [place] [address] [place] CO2 [Moles/Vol] 27 mmol/L Normal 22-30 [facility] Comment on above: Order Comment: Speci men Type: BLOOD SPECIMENOrdering Facility: [facility] Address: [address] [place] [address] Performed By: #### 2 4321-2 ####[facility] LABORATORYCLIA [id number] [place] [id number] [place] Creatinine [Mass/Vol] 2.03 mg/dL High 0.73-1.22 [facility] Comment on above: Order Comment: Stuart madrigal Type: BLOOD SPECIMENOrdering Facility: [facility] Address: [address] [place] [address] Performed By: #### 2 4321-2 ####[facility] [id number] [address] OF [facility] Creatinine and Glomerular filtration rate.predicted panel (S/P/Bld) 33 mL/min/1.73m??? Low >=60 [facility] Comment on above: Order Comment: Stuart madrigal Type: BLOOD SPECIMENOrdering Facility: [facility] Address: [address] [place] [address] Result Comment: Eli mated Glomerular Filtration Rate (eGFR) is calculated using the 2020 CKD-EPI creatinine equation. This equation utilizes serum creatinine, sex, and age as parameters. The creatinine assay has traceable calibration to isotope dilution-mass spectrometry. Refer to KDIGO guidelines for clinical interpretation. In patients with unstable renal function, e.g. those with acute kidney injury, the eGFR may not accurately reflect actual GFR. Performed By: #### 2 4321-2 ####[facility] LABORATORYCLIA [id number] [address] [place] Glucose [Mass/Vol] 106 mg/dL High 74-99 [facility] Comment on above: Order Comment: Stuart madrigal Type: BLOOD SPECIMENOrdering Facility: [facility] Address: [address] [place] [address] Result Comment: The [place] [employer] (ADA) provides guidance for cutoff values for fasting glucose and random glucose. The ADA defines fasting as no caloric intake for at least 8 hours. Fasting plasma glucose results between 100 to 125 mg/dL indicate increased risk for diabetes (prediabetes).Fasting plasma glucose results greater than or equal to 126 mg/dL meet the criteria for diagnosis of diabetes. In the absence of unequivocal hyperglycemia, results should be confirmed by repeat testing. In a patient with classic symptoms of hyperglycemia or hyperglycemic crisis, random plasma glucose results greater than or equal to 200 mg/dL meet the criteria for diagnosis of diabetes.Reference: Standards of Medical Care in Diabetes 2016, [place] [employer]. Diabetes Care. 2016.39(Suppl 1). Performed By: #### 2 4321-2 ####[facility] LABORATORYCLIA [id number] [place] [address] [place] Potassium [Moles/Vol] 4.4 mmol/L Normal 3.7-5.1 [facility] Comment on above: Order Comment: Speci men Type: BLOOD SPECIMENOrdering Facility: [facility] Address: [address] [place] [address] Performed By: #### 2 4321-2 ####[facility] LABORATORYCLIA [id number] [place] [address] [place] Sodium [Moles/Vol] 143 mmol/L Normal 136-144 [facility] Comment on above: Order Comment: Speci men Type: BLOOD SPECIMENOrdering Facility: [facility] Address: [address] [place] [address] Performed By: #### 2 4321-2 ####[facility] LABORATORYCLIA [id number] [place] [address] [place] Urea nitrogen [Mass/Vol] 62 mg/dL High 9-24 [facility] Comment on above: Order Comment: Speci men Type: BLOOD SPECIMENOrdering Facility: [facility] Address: [address] [place] [address] Performed By: #### 2 1-2 ####[facility] LABORATORYCLIA [id number] [place] [address] [place] Anion gap [Moles/Vol] 10 mmol/L Normal 8-15 [facility] Comment on above: Order Comment: Speci men Type: BLOOD SPECIMENOrdering Facility: [facility] Address: [address] [place] [address] Performed By: #### 2 1-2 ####[facility] LABORATORYCLIA [id number] [place] [address] [place] Calcium [Mass/Vol] 9.0 mg/dL Normal 8.5-10.2 [facility] Comment on above: Order Comment: Speci men Type: BLOOD SPECIMENOrdering Facility: [facility] Address: [address] [place] [address] Performed By: #### 2 4321-2 ####[facility] LABORATORYCLIA [id number] [place] [address] [place] Chloride [Moles/Vol] 105 mmol/L Normal 98-107 [facility] Comment on above: Order Comment: Speci men Type: BLOOD SPECIMENOrdering Facility: [facility] Address: [address] [place] [address] Performed By: #### 2 4321-2 ####[facility] LABORATORYCLIA [id number] [place] [address] [place] CO2 [Moles/Vol] 28 mmol/L Normal 22-30 [facility] Comment on above: Order Comment: Speci men Type: BLOOD SPECIMENOrdering Facility: [facility] Address: [address] [place] [address] Performed By: #### 2 4321-2 ####[facility] LABORATORYCLIA [id number] [address] [place] Creatinine [Mass/Vol] 1.85 mg/dL High 0.73-1.22 [facility] Comment on above: Order Comment: Speci men Type: BLOOD SPECIMENOrdering Facility: [facility] Address: [address] [place] [address] Performed By: #### 2 4321-2 ####[facility] LABORATORYCLIA [id number] [address] [place] Creatinine and Glomerular filtration rate.predicted panel (S/P/Bld) 37 mL/min/1.73m??? Low >=60 [facility] Comment on above: Order Comment: Speci men Type: BLOOD SPECIMENOrdering Facility: [facility] Address: [address] [place] [address] Result Comment: Eli mated Glomerular Filtration Rate (eGFR) is calculated using the 2020 CKD-EPI creatinine equation. This equation utilizes serum creatinine, sex, and age as parameters. The creatinine assay has traceable calibration to isotope dilution-mass spectrometry. Refer to KDIGO guidelines for clinical interpretation. In patients with unstable renal function, e.g. those with acute kidney injury, the eGFR may not accurately reflect actual GFR. Performed By: #### 2 4321-2 ####[facility] LABORATORYCLIA [id number] [place] [address] [place] Glucose [Mass/Vol] 249 mg/dL High 74-99 [facility] Comment on above: Order Comment: Stuart madrigal Type: BLOOD SPECIMENOrdering Facility: [facility] Address: [address] [place] [address] Result Comment: The [place] [employer] (ADA) provides guidance for cutoff values for fasting glucose and random glucose. The ADA defines fasting as no caloric intake for at least 8 hours. Fasting plasma glucose results between 100 to 125 mg/dL indicate increased risk for diabetes (prediabetes).Fasting plasma glucose results greater than or equal to 126 mg/dL meet the criteria for diagnosis of diabetes. In the absence of unequivocal hyperglycemia, results should be confirmed by repeat testing. In a patient with classic symptoms of hyperglycemia or hyperglycemic crisis, random plasma glucose results greater than or equal to 200 mg/dL meet the criteria for diagnosis of diabetes.Reference: Standards of Medical Care in Diabetes 2016, [place] [employer]. Diabetes Care. 2016.39(Suppl 1). Performed By: #### 2 4321-2 ####[facility]ATORYCLIA [id number] [place] [id number] [place] Potassium [Moles/Vol] 4.8 mmol/L Normal 3.7-5.1 [facility] Comment on above: Order Comment: Stuart madrigal Type: BLOOD SPECIMENOrdering Facility: [facility] Address: [address] [place] [id number] Performed By: #### 2 4321-2 ####[facility] LABORATORYCLIA [id number] [place] [address] [place] Sodium [Moles/Vol] 143 mmol/L Normal 136-144 [facility] Comment on above: Order Comment: Speci men Type: BLOOD SPECIMENOrdering Facility: [facility] Address: [address] [place] [address] Performed By: #### 2 4321-2 ####[facility]ATORYCLIA [id number] [address] [place] Urea nitrogen [Mass/Vol] 60 mg/dL High 9-24 [facility] Comment on above: Order Comment: Speci men Type: BLOOD SPECIMENOrdering Facility: [facility] Address: [address] [place] [address] Performed By: #### 2 4321-2 ####[facility]ATORYCLIA [id number] [address] OF [facility] CBC panel Auto (Bld)on 12-10 Erythrocyte distribution width (RBC) [Ratio] 13.7 % Normal 11.5-15.0 [facility] Comment on above: Order Comment: Speci men Type: BLOOD SPECIMENOrdering Facility: [facility] Address: [address] [place] [address] Performed By: #### 5 8410-2 ####[facility]ATORYCLIA [id number] [address] STATES OF [facility] Hematocrit (Bld) [Volume fraction] 30.6 % Low 39.0-51.0 [facility] Comment on above: Order Comment: Speci men Type: BLOOD SPECIMENOrdering Facility: [facility] Address: [address] [place] [address] Performed By: #### 5 8410-2 ####[facility]ATORYCLIA [id number] [address] [place] Hemoglobin (Bld) [Mass/Vol] 9.9 g/dL Low 13.0-17.0 [facility] Comment on above: Order Comment: Speci men Type: BLOOD SPECIMENOrdering Facility: [facility] Address: [address] [place] [address] Performed By: #### 5 8410-2 ####[facility]ORYCLIA [id number] [address] MCH (RBC) [Entitic mass] 30.5 pg Normal 26.0-34.0 [facility] Comment on above: Order Comment: Speci men Type: BLOOD SPECIMENOrdering Facility: [facility] Address: [address] [place] [address] Performed By: #### 5 8410-2 ####[facility]ATORYCLIA [id number] [address] MCHC (RBC) [Mass/Vol] 32.4 g/dL Normal 30.5-36.0 [facility] Comment on above: Order Comment: Speci men Type: BLOOD SPECIMENOrdering Facility: [facility] Address: [address] [place] [address] Performed By: #### 5 8410-2 ####[facility]ATORYCLIA [id number] [address] MCV (RBC) [Entitic vol] 94.2 fL Normal 80.0-100.0 [facility] Comment on above: Order Comment: Speci men Type: BLOOD SPECIMENOrdering Facility: [facility] Address: [address] [place] [address] Performed By: #### 5 8410-2 ####[facility]ORYCLIA [id number] [address] Nucleated RBC (Bld) [#/Vol] 10*3/uL Normal <0.01 [facility] Comment on above: Order Comment: Speci men Type: BLOOD SPECIMENOrdering Facility: [facility] Address: [address] [place] [address] Performed By: #### 5 8410-2 ####[facility]ATORYCLIA [id number] [address] Platelet mean volume (Bld) [Entitic vol] 11.3 fL Normal 9.0-12.7 [facility] Comment on above: Order Comment: Speci men Type: BLOOD SPECIMENOrdering Facility: [facility] Address: [address] [place] [address] Performed By: #### 5 8410-2 ####[facility]ATORYCLIA [id number] [address] Platelets (Bld) [#/Vol] 550 10*3/uL High 150-400 [facility] Comment on above: Order Comment: Speci men Type: BLOOD SPECIMENOrdering Facility: [facility] Address: [address] [place] [address] Performed By: #### 5 8410-2 ####[facility]ATORYCLIA [id number] [address] OF [facility] RBC (Bld) [#/Vol] 3.25 10*6/uL Low 4.20-6.00 [facility] Comment on above: Order Comment: Speci men Type: BLOOD SPECIMENOrdering Facility: [facility] Address: [address] [place] [address] Performed By: #### 5 8410-2 ####[facility]ATORYCLIA [id number] [address] WBC (Bld) [#/Vol] 21.23 10*3/uL High 3.70-11.00 [facility] Comment on above: Order Comment: Speci men Type: BLOOD SPECIMENOrdering Facility: [facility] Address: [address] [place] [address] Performed By: #### 5 8410-2 ####[facility]ORYCLIA [id number] [address] Erythrocyte distribution width (RBC) [Ratio] 13.5 % Normal 11.5-15.0 [facility] Comment on above: Order Comment: Speci men Type: BLOOD SPECIMENOrdering Facility: [facility] Address: [address] [place] [address] Performed By: #### 5 8410-2 ####[facility]ORYCLIA [id number] [address] Hematocrit (Bld) [Volume fraction] 31.2 % Low 39.0-51.0 [facility] Comment on above: Order Comment: Speci men Type: BLOOD SPECIMENOrdering Facility: [facility] Address: [address] [place] [address] Performed By: #### 5 8410-2 ####[facility]ATORYCLIA [id number] [address] OF [facility] Hemoglobin (Bld) [Mass/Vol] 10.1 g/dL Low 13.0-17.0 [facility] Comment on above: Order Comment: Speci men Type: BLOOD SPECIMENOrdering Facility: [facility] Address: [address] [place] [address] Performed By: #### 5 8410-2 ####[facility]ATORYCLIA [id number] [address] STATES OF [facility] MCH (RBC) [Entitic mass] 30.6 pg Normal 26.0-34.0 [facility] Comment on above: Order Comment: Speci men Type: BLOOD SPECIMENOrdering Facility: [facility] Address: [address] [place] [address] Performed By: #### 5 8410-2 ####[facility]ATORYCLIA [id number] [address] OF [facility] MCHC (RBC) [Mass/Vol] 32.4 g/dL Normal 30.5-36.0 [facility] Comment on above: Order Comment: Speci men Type: BLOOD SPECIMENOrdering Facility: [facility] Address: [address] [place] [address] Performed By: #### 5 8410-2 ####[facility]ATORYCLIA [id number] [address] MCV (RBC) [Entitic vol] 94.5 fL Normal 80.0-100.0 [facility] Comment on above: Order Comment: Speci men Type: BLOOD SPECIMENOrdering Facility: [facility] Address: [address] [place] [address] Performed By: #### 5 8410-2 ####[facility]ATORYCLIA [id number] [address] [place] Nucleated RBC (Bld) [#/Vol] 10*3/uL Normal <0.01 [facility] Comment on above: Order Comment: Speci men Type: BLOOD SPECIMENOrdering Facility: [facility] Address: [address] [place] [address] Performed By: #### 5 8410-2 ####[facility]ATORYCLIA [id number] [address] OF [place] Platelet mean volume (Bld) [Entitic vol] 11.4 fL Normal 9.0-12.7 [facility] Comment on above: Order Comment: Speci men Type: BLOOD SPECIMENOrdering Facility: [facility] Address: [address] [place] [address] Performed By: #### 5 8410-2 ####[facility]ATORYCLIA [id number] [address] OF [place] Platelets (Bld) [#/Vol] 495 10*3/uL High 150-400 [facility] Comment on above: Order Comment: Speci men Type: BLOOD SPECIMENOrdering Facility: [facility] Address: [address] [place] [address] Performed By: #### 5 8410-2 ####[facility]ATORYCLIA [id number] [address] [place] RBC (Bld) [#/Vol] 3.30 10*6/uL Low 4.20-6.00 [facility] Comment on above: Order Comment: Speci men Type: BLOOD SPECIMENOrdering Facility: [facility] Address: [address] [place] [address] Performed By: #### 5 8410-2 ####[facility]ATORYCLIA [id number] [address] [place] WBC (Bld) [#/Vol] 20.43 10*3/uL High 3.70-11.00 [facility] Comment on above: Order Comment: Speci men Type: BLOOD SPECIMENOrdering Facility: [facility] Address: [address] [place] [address] Performed By: #### 5 8410-2 ####[facility]ATORYCLIA [id number] [place] [address] [facility] OF [place] CONSULTon 12-10-2024 CONSULT Normal [facility] CONSULT PROGon 12-10-2024 CONSULT PROG Normal [facility] CT ABD/PEL W IVCONon 025 CT ABD/PEL W IVCON Normal [facility] CT CHEST W IVCONon 5 CT CHEST W IVCON Normal [facility] Lactate (Bld) [Moles/Vol]on 12-10-2024 Lactate [Moles/Vol] 0.8 mmol/L Normal 0.5-2.2 [facility] Comment on above: Order Comment: Speci men Type: BLOOD SPECIMENOrdering Facility: [facility] Address: [address] [place] [address] Performed By: #### 3 2693-4 ####[facility]ATORYCLIA [id number] [address] OF [place] MEDICAL EMERon 12-10-2024 MEDICAL CARLOS ALBERTO Normal [facility] NURSING PROGon 12-10-2024 NURSING PROG Normal [facility] THERAPY NTon 12-10-2024 THERAPY NT Normal [facility] XR ABDOMEN 1V SUPINEon 12-10 XR ABDOMEN 1V SUPINE Normal [facility] Basic metabolic 2000 panelon 12-09-2024 Anion gap [Moles/Vol] 11 mmol/L Normal 8-15 [facility] Comment on above: Order Comment: Speci men Type: BLOOD SPECIMENOrdering Facility: [facility] Address: [facility] [place] [id number] Performed By: #### 1 9123-9, 10878-1, 2777-1 ####[facility]ORATORYCLIA [id number] [address] [place] Calcium [Mass/Vol] 9.4 mg/dL Normal 8.5-10.2 [facility] Comment on above: Order Comment: Speci men Type: BLOOD SPECIMENOrdering Facility: [facility] Address: [address] [place] [address] Performed By: #### 1 9123-9, 53833-5, 2776- ####[facility]ATORYCLIA [id number] [place] [address] [place] Chloride [Moles/Vol] 105 mmol/L Normal 98-107 [facility] Comment on above: Order Comment: Speci men Type: BLOOD SPECIMENOrdering Facility: [facility] Address: [address] [place] [address] Performed By: #### 1 9123-9, 37338-9, 2776-07 ####[facility]ATORYCLIA [id number] [place] [address] [place] CO2 [Moles/Vol] 28 mmol/L Normal 22-30 [facility] Comment on above: Order Comment: Speci men Type: BLOOD SPECIMENOrdering Facility: [facility] Address: [address] [place] [address] Performed By: #### 1 9123-9, 59685-5, 2776-07 ####[facility]ATORYCLIA [id number] [place] [address] [place] Creatinine [Mass/Vol] 1.89 mg/dL High 0.73-1.22 [facility] Comment on above: Order Comment: Speci men Type: BLOOD SPECIMENOrdering Facility: [facility] Address: [address] [place] [address] Performed By: #### 1 9123-9, 49822-4, 2776- ####[facility]ATORYCLIA [id number] [address] OF [place] Creatinine and Glomerular filtration rate.predicted panel (S/P/Bld) 36 mL/min/1.73m??? Low >=60 [facility] Comment on above: Order Comment: Speci men Type: BLOOD SPECIMENOrdering Facility: [facility] Address: [address] [place] [address] Result Comment: Eli mated Glomerular Filtration Rate (eGFR) is calculated using the 2020 CKD-EPI creatinine equation. This equation utilizes serum creatinine, sex, and age as parameters. The creatinine assay has traceable calibration to isotope dilution-mass spectrometry. Refer to KDIGO guidelines for clinical interpretation. In patients with unstable renal function, e.g. those with acute kidney injury, the eGFR may not accurately reflect actual GFR. Performed By: #### 1 9123-9, 11081-3, 2776-07 ####[facility]ATORYCLIA [id number] [place] [address] [place] Glucose [Mass/Vol] 201 mg/dL High 74-99 [facility] Comment on above: Order Comment: Stuart madrigal Type: BLOOD SPECIMENOrdering Facility: [facility] Address: [address] [place] [address] Result Comment: The [place] [employer] (ADA) provides guidance for cutoff values for fasting glucose and random glucose. The ADA defines fasting as no caloric intake for at least 8 hours. Fasting plasma glucose results between 100 to 125 mg/dL indicate increased risk for diabetes (prediabetes).Fasting plasma glucose results greater than or equal to 126 mg/dL meet the criteria for diagnosis of diabetes. In the absence of unequivocal hyperglycemia, results should be confirmed by repeat testing. In a patient with classic symptoms of hyperglycemia or hyperglycemic crisis, random plasma glucose results greater than or equal to 200 mg/dL meet the criteria for diagnosis of diabetes.Reference: Standards of Medical Care in Diabetes 2016, [place] [employer]. Diabetes Care. 2016.39(Suppl 1). Performed By: #### 1 9123-9, 68749-4, 2776-07 ####[facility]ATORYCLIA [id number] [place] [address] [place] Potassium [Moles/Vol] 4.5 mmol/L Normal 3.7-5.1 [facility] Comment on above: Order Comment: Stuart madrigal Type: BLOOD SPECIMENOrdering Facility: [facility] Address: [address] [place] [address] Performed By: #### 1 9123-9, 14343-5, 2776-07 ####[facility]ATORYCLIA [id number] [place] [address] [place] OF [facility] Sodium [Moles/Vol] 144 mmol/L Normal 136-144 [facility] Comment on above: Order Comment: Speci men Type: BLOOD SPECIMENOrdering Facility: [facility] Address: [address] [place] [address] Performed By: #### 1 9123-9, 57722-1, 2777-1 ####[facility]ATORYCLIA [id number] [place] [id number] [place] Urea nitrogen [Mass/Vol] 58 mg/dL High 9-24 [facility] Comment on above: Order Comment: Speci men Type: BLOOD SPECIMENOrdering Facility: [facility] Address: [address] [place] [address] Performed By: #### 1 9123-9, 60214-1, 2777-1 ####[facility]ATORYCLIA [id number] [address] STATES OF [facility] CBC panel Auto (Bld)on 12-09 Erythrocyte distribution width (RBC) [Ratio] 13.5 % Normal 11.5-15.0 [facility] Comment on above: Order Comment: Speci men Type: BLOOD SPECIMENOrdering Facility: [facility] Address: [address] [place] [address] Performed By: #### 5 8410-2 ####[facility]ATORYCLIA [id number] [address] [place] Hematocrit (Bld) [Volume fraction] 28.8 % Low 39.0-51.0 [facility] Comment on above: Order Comment: Speci men Type: BLOOD SPECIMENOrdering Facility: [facility] Address: [address] [place] [address] Performed By: #### 5 8410-2 ####[facility]ATORYCLIA [id number] [address] [place] Hemoglobin (Bld) [Mass/Vol] 9.5 g/dL Low 13.0-17.0 [facility] Comment on above: Order Comment: Speci men Type: BLOOD SPECIMENOrdering Facility: [facility] Address: [address] [place] [address] Performed By: #### 5 8410-2 ####[facility]ATORYCLIA [id number] [address] MCH (RBC) [Entitic mass] 30.4 pg Normal 26.0-34.0 [facility] Comment on above: Order Comment: Speci men Type: BLOOD SPECIMENOrdering Facility: [facility] Address: [address] [place] [address] Performed By: #### 5 8410-2 ####[facility]ATORYCLIA [id number] [address] MCHC (RBC) [Mass/Vol] 33.0 g/dL Normal 30.5-36.0 [facility] Comment on above: Order Comment: Speci men Type: BLOOD SPECIMENOrdering Facility: [facility] Address: [address] [place] [address] Performed By: #### 5 8410-2 ####[facility]ATORYCLIA [id number] [address] MCV (RBC) [Entitic vol] 92.3 fL Normal 80.0-100.0 [facility] Comment on above: Order Comment: Speci men Type: BLOOD SPECIMENOrdering Facility: [facility] Address: [address] [place] [address] Performed By: #### 5 8410-2 ####[facility]ATORYCLIA [id number] [address] Nucleated RBC (Bld) [#/Vol] 10*3/uL Normal <0.01 [facility] Comment on above: Order Comment: Speci men Type: BLOOD SPECIMENOrdering Facility: [facility] Address: [address] [place] [address] Performed By: #### 5 8410-2 ####[facility]ATORYCLIA [id number] [address] Platelet mean volume (Bld) [Entitic vol] 10.8 fL Normal 9.0-12.7 [facility] Comment on above: Order Comment: Speci men Type: BLOOD SPECIMENOrdering Facility: [facility] Address: [address] [place] [address] Performed By: #### 5 8410-2 ####[facility]ORYCLIA [id number] [address] [place] Platelets (Bld) [#/Vol] 404 10*3/uL High 150-400 [facility] Comment on above: Order Comment: Speci men Type: BLOOD SPECIMENOrdering Facility: [facility] Address: [address] [place] [address] Performed By: #### 5 8410-2 ####[facility]ATORYCLIA [id number] [address] STATES OF [facility] RBC (Bld) [#/Vol] 3.12 10*6/uL Low 4.20-6.00 [facility] Comment on above: Order Comment: Speci men Type: BLOOD SPECIMENOrdering Facility: [facility] Address: [address] [place] [address] Performed By: #### 5 8410-2 ####[facility]ATORYCLIA [id number] [address] [place] WBC (Bld) [#/Vol] 17.09 10*3/uL High 3.70-11.00 [facility] Comment on above: Order Comment: Speci men Type: BLOOD SPECIMENOrdering Facility: [facility] Address: [address] [place] [address] Performed By: #### 5 8410-2 ####[facility]ATORYCLIA [id number] [address] OF [facility] CONSULT PROGon 12-09-2024 CONSULT PROG Normal [facility] Calcium.ionized [Moles/Vol]o n 12-09-2024 Calcium.ionized (BldV) [Mass/Vol] 1.23 mmol/L Normal 1.08-1.30 [facility] Comment on above: Order Comment: Speci men Type: BLOOD SPECIMENOrdering Facility: [facility] Address: [address] [place] [address] Performed By: #### 1 995-0 ####[facility]ATORYCLIA [id number] [place] [address] [place] Calcium.ionized adjusted to pH 7.4 (Bld) [Moles/Vol] 1.27 mmol/L Normal 1.08-1.30 [facility] Comment on above: Order Comment: Speci men Type: BLOOD SPECIMENOrdering Facility: [facility] Address: [address] [place] [address] Performed By: #### 1 995-0 ####[facility]ATORYCLIA [id number] [address] [place] ECG COMPLETEon 12-09-2024 ECG COMPLETE Normal [facility] HIGH SENSITIVITY TROPONIN To n 12-09-2024 Troponin T.cardiac High sensitivity method [Mass/Vol] 247 ng/L High <12 [facility] Comment on above: Order Comment: Speci men Type: BLOOD SPECIMENOrdering Facility: [facility] Address: [address] [place] [address] Performed By: #### H STNT ####[facility]ATORYCLIA [id number] [place] [address] [place] Troponin T.cardiac High sensitivity method [Mass/Vol] 261 ng/L High <12 [facility] Comment on above: Order Comment: Speci men Type: BLOOD SPECIMENOrdering Facility: [facility] Address: [address] [place] [address] Performed By: #### H STNT ####[facility]ATORYCLIA [id number] [place] [address] [place] Magnesium SerPl-mCncon 12-09 Magnesium [Mass/Vol] 1.9 mg/dL Normal 1.7-2.3 [facility] Comment on above: Order Comment: Speci men Type: BLOOD SPECIMENOrdering Facility: [facility] Address: [address] [place] [address] Performed By: #### 1 9123-9, 32725-3, 2777-1 ####[facility]ORYCLIA [id number] [address] [place] Phosphate SerPl-mCncon 12-09 Phosphate [Mass/Vol] 3.7 mg/dL Normal 2.7-4.8 [facility] Comment on above: Order Comment: Speci men Type: BLOOD SPECIMENOrdering Facility: [facility] Address: [address] [place] [address] Performed By: #### 1 9123-9, 73377-3, 2777 ####[facility]ATORYCLIA [id number] [address] [place] ARTERIAL BLOOD GASESon 12-08 Base excess Calc (Bld) [Moles/Vol] 5 mmol/L High 0-2 [facility] Comment on above: Order Comment: Speci men Type: ARTERIAL BLOOD SPECIMENOrdering Facility: [facility] Address: [address] [place] [address] Performed By: #### A LLBG ####[facility]ATORYCLIA [id number] [address] [place] Body temperature 98.6 [degF] Normal [facility] Comment on above: Order Comment: Speci men Type: ARTERIAL BLOOD SPECIMENOrdering Facility: [facility] Address: [address] [place] [address] Performed By: #### A LLBG ####[facility]ATORYCLIA [id number] [address] [place] Calcium.ionized (BldV) [Mass/Vol] 1.32 mmol/L High 1.08-1.30 [facility] Comment on above: Order Comment: Speci men Type: ARTERIAL BLOOD SPECIMENOrdering Facility: [facility] Address: [address] [place] [address] Performed By: #### A LLBG ####[facility]ATORYCLIA [id number] [place] [address] [place] Calcium.ionized adjusted to pH 7.4 (BldA) [Moles/Vol] 1.38 mmol/L High 1.08-1.30 [facility] Comment on above: Order Comment: Speci men Type: ARTERIAL BLOOD SPECIMENOrdering Facility: [facility] Address: [address] [place] [address] Performed By: #### A LLBG ####[facility]ATORYCLIA [id number] [address] [place] Carboxyhemoglobin (BldA) [Mass fraction] 1.3 % Normal 0.0-2.0 [facility] Comment on above: Order Comment: Speci men Type: ARTERIAL BLOOD SPECIMENOrdering Facility: [facility] Address: [address] [place] [address] Result Comment: Carb oxyhemoglobin Reference Range for Smokers: 2.0-8.0% Performed By: #### A LLBG ####[facility]ATORYCLIA [id number] [place] [address] [place] Chloride [Moles/Vol] 105 mmol/L Normal 97-105 [facility] Comment on above: Order Comment: Speci men Type: ARTERIAL BLOOD SPECIMENOrdering Facility: [facility] Address: [address] [place] [address] Performed By: #### A LLBG ####[facility]ATORYCLIA [id number] [address] [place] CO2 (Bld) [Partial pressure] 39 mm Hg Normal 36-46 [facility] Comment on above: Order Comment: Speci men Type: ARTERIAL BLOOD SPECIMENOrdering Facility: [facility] Address: [address] [place] [address] Performed By: #### A LLBG ####[facility]ATORYCLIA [id number] [place] [address] [place] Glucose [Mass/Vol] 237 mg/dL High 60-105 [facility] Comment on above: Order Comment: Speci men Type: ARTERIAL BLOOD SPECIMENOrdering Facility: [facility] Address: [address] [place] [address] Performed By: #### A LLBG ####[facility]ATORYCLIA [id number] [address] [place] HCO3 (Bld) [Moles/Vol] 28 mmol/L High 22-26 [facility] Comment on above: Order Comment: Speci men Type: ARTERIAL BLOOD SPECIMENOrdering Facility: [facility] Address: [address] [place] [address] Performed By: #### A LLBG ####[facility]ATORYCLIA [id number] [address] [place] Hematocrit (Bld) [Volume fraction] 31.4 % Low 39.0-51.0 [facility] Comment on above: Order Comment: Speci men Type: ARTERIAL BLOOD SPECIMENOrdering Facility: [facility] Address: [address] [place] [address] Performed By: #### A LLBG ####[facility]ATORYCLIA [id number] [address] [place] Hemoglobin (Bld) [Mass/Vol] 10.2 g/dL Low 13.0-17.0 [facility] Comment on above: Order Comment: Speci men Type: ARTERIAL BLOOD SPECIMENOrdering Facility: [facility] Address: [address] [place] [address] Performed By: #### A LLBG ####[facility]ATORYCLIA [id number] [address] [place] Lactate [Moles/Vol] 1.4 mmol/L Normal 0.5-2.2 [facility] Comment on above: Order Comment: Speci men Type: ARTERIAL BLOOD SPECIMENOrdering Facility: [facility] Address: [address] [place] [address] Performed By: #### A LLBG ####[facility]ATORYCLIA [id number] [address] [place] Methemoglobin (Bld) [Mass fraction] 0.7 % Normal 0.0-1.5 [facility] Comment on above: Order Comment: Speci men Type: ARTERIAL BLOOD SPECIMENOrdering Facility: [facility] Address: [address] [place] [address] Performed By: #### A LLBG ####[facility]ATORYCLIA [id number] [address] [place] O2 THERAPY VENT=Ventilator Normal [facility] Comment on above: Order Comment: Speci men Type: ARTERIAL BLOOD SPECIMENOrdering Facility: [facility] Address: [address] [place] [address] Performed By: #### A LLBG ####[facility]ATORYCLIA [id number] [address] [place] Oxygen (Bld) [Partial pressure] 130 mm Hg High 85-95 [facility] Comment on above: Order Comment: Speci men Type: ARTERIAL BLOOD SPECIMENOrdering Facility: [facility] Address: [address] [place] [address] Performed By: #### A LLBG ####[facility]ATORYCLIA [id number] [address] [place] Oxyhemoglobin (BldA) [Mass fraction] 97 % Normal 95-98 [facility] Comment on above: Order Comment: Speci men Type: ARTERIAL BLOOD SPECIMENOrdering Facility: [facility] Address: [address] [place] [address] Performed By: #### A LLBG ####[facility]ATORYCLIA [id number] [address] [place] pH (Bld) 7.48 [pH] High 7.35-7.45 [facility] Comment on above: Order Comment: Speci men Type: ARTERIAL BLOOD SPECIMENOrdering Facility: [facility] Address: [address] [place] [address] Performed By: #### A LLBG ####[facility]ORYCLIA [id number] [place] [address] [place] Potassium [Moles/Vol] 4.2 mmol/L Normal 3.5-5.0 [facility] Comment on above: Order Comment: Speci men Type: ARTERIAL BLOOD SPECIMENOrdering Facility: [facility] Address: [address] [place] [address] Performed By: #### A LLBG ####[facility]ORYCLIA [id number] [place] [address] [place] Sodium [Moles/Vol] 140 mmol/L Normal 136-144 [facility] Comment on above: Order Comment: Speci men Type: ARTERIAL BLOOD SPECIMENOrdering Facility: [facility] Address: [address] [place] [address] Performed By: #### A LLBG ####[facility]ATORYCLIA [id number] [place] [address] [place] Basic metabolic 2000 panelon 12-08-2024 Anion gap [Moles/Vol] 11 mmol/L Normal 8-15 [facility] Comment on above: Order Comment: Speci men Type: BLOOD SPECIMENOrdering Facility: [facility] Address: [address] [place] [address] Performed By: #### 1 9123-9, 2777-1, 03206-9 ####[facility]ATORYCLIA [id number] [place] [address] [place] Calcium [Mass/Vol] 8.9 mg/dL Normal 8.5-10.2 [facility] Comment on above: Order Comment: Speci men Type: BLOOD SPECIMENOrdering Facility: [facility] Address: [address] [place] [address] Performed By: #### 1 9123-9, 2777-1, 90051-6 ####[facility]ORYCLIA [id number] [place] [address] [place] Chloride [Moles/Vol] 105 mmol/L Normal 98-107 [facility] Comment on above: Order Comment: Speci men Type: BLOOD SPECIMENOrdering Facility: [facility] Address: [address] [place] [address] Performed By: #### 1 9123-9, 2777-1, 20675-7 ####[facility]ATORYCLIA [id number] [place] [address] [place] CO2 [Moles/Vol] 28 mmol/L Normal 22-30 [facility] Comment on above: Order Comment: Speci men Type: BLOOD SPECIMENOrdering Facility: [facility] Address: [address] [place] [address] Performed By: #### 1 9123-9, 2776-07, ####[facility]ATORYCLIA [id number] [place] [address] [place] Creatinine [Mass/Vol] 1.92 mg/dL High 0.73-1.22 [facility] Comment on above: Order Comment: Speci men Type: BLOOD SPECIMENOrdering Facility: [facility] Address: [address] [place] [address] Performed By: #### 1 9123-9, 2776-07, ####[facility] CENTERIA [id number] [address] STATES OF [facility] Creatinine and Glomerular filtration rate.predicted panel (S/P/Bld) 35 mL/min/1.73m??? Low >=60 [facility] Comment on above: Order Comment: Speci men Type: BLOOD SPECIMENOrdering Facility: [facility] Address: [address] [place] [address] Result Comment: Eli mated Glomerular Filtration Rate (eGFR) is calculated using the 2020 CKD-EPI creatinine equation. This equation utilizes serum creatinine, sex, and age as parameters. The creatinine assay has traceable calibration to isotope dilution-mass spectrometry. Refer to KDIGO guidelines for clinical interpretation. In patients with unstable renal function, e.g. those with acute kidney injury, the eGFR may not accurately reflect actual GFR. Performed By: #### 1 9123-9, 27701-23, 82441-3 ####[facility]ATORYCLIA [id number] [place] [address] [place] Glucose [Mass/Vol] 290 mg/dL High 74-99 [facility] Comment on above: Order Comment: Speci men Type: BLOOD SPECIMENOrdering Facility: [facility] Address: [address] [place] [address] Result Comment: The [place] [employer] (ADA) provides guidance for cutoff values for fasting glucose and random glucose. The ADA defines fasting as no caloric intake for at least 8 hours. Fasting plasma glucose results between 100 to 125 mg/dL indicate increased risk for diabetes (prediabetes).Fasting plasma glucose results greater than or equal to 126 mg/dL meet the criteria for diagnosis of diabetes. In the absence of unequivocal hyperglycemia, results should be confirmed by repeat testing. In a patient with classic symptoms of hyperglycemia or hyperglycemic crisis, random plasma glucose results greater than or equal to 200 mg/dL meet the criteria for diagnosis of diabetes.Reference: Standards of Medical Care in Diabetes 2016, [place] [employer]. Diabetes Care. 2016.39(Suppl 1). Performed By: #### 1 9123-9, 2777-, 55684-3 ####[facility]ATORYCLIA [id number] [place] [address] [place] Potassium [Moles/Vol] 4.9 mmol/L Normal 3.7-5.1 [facility] Comment on above: Order Comment: [facility] Type: BLOOD SPECIMENOrdering Facility: [facility] Address: [address] [place] [address] Performed By: #### 1 9123-9, 2777-, 38645-1 ####[facility]ORYCLIA [id number] [place] [address] [place] Sodium [Moles/Vol] 144 mmol/L Normal 136-144 [facility] Comment on above: Order Comment: Darí[place] men Type: BLOOD SPECIMENOrdering Facility: [facility] Address: [address] [place] [address] Performed By: #### 1 9123-9, 2777, 51145-6 ####[facility]ATORYCLIA [id number] [place] [address] [place] Urea nitrogen [Mass/Vol] 58 mg/dL High 9-24 [facility] Comment on above: Order Comment: Speci men Type: BLOOD SPECIMENOrdering Facility: [facility] Address: [address] [place] [address] Performed By: #### 1 9123-9, 2777-1, 52302-0 ####[facility]ATORYCLIA [id number] [address] CBC panel Auto (Bld)on 12-08 Erythrocyte distribution width (RBC) [Ratio] 13.4 % Normal 11.5-15.0 [facility] Comment on above: Order Comment: Speci men Type: BLOOD SPECIMENOrdering Facility: [facility] Address: [address] [place] [address] Performed By: #### 5 8410-2 ####[facility]ATORYCLIA [id number] [address] STATES OF [facility] Hematocrit (Bld) [Volume fraction] 29.0 % Low 39.0-51.0 [facility] Comment on above: Order Comment: Speci men Type: BLOOD SPECIMENOrdering Facility: [facility] Address: [address] [place] [address] Performed By: #### 5 8410-2 ####[facility]ORYCLIA [id number] [address] [place] Hemoglobin (Bld) [Mass/Vol] 9.4 g/dL Low 13.0-17.0 [facility] Comment on above: Order Comment: Speci men Type: BLOOD SPECIMENOrdering Facility: [facility] Address: [address] [place] [address] Performed By: #### 5 8410-2 ####[facility]ATORYCLIA [id number] [address] [place] MCH (RBC) [Entitic mass] 30.5 pg Normal 26.0-34.0 [facility] Comment on above: Order Comment: Speci men Type: BLOOD SPECIMENOrdering Facility: [facility] Address: [address] [place] [address] Performed By: #### 5 8410-2 ####[facility]ORYCLIA [id number] [address] STATES OF [facility] MCHC (RBC) [Mass/Vol] 32.4 g/dL Normal 30.5-36.0 [facility] Comment on above: Order Comment: Speci men Type: BLOOD SPECIMENOrdering Facility: [facility] Address: [address] [place] [address] Performed By: #### 5 8410-2 ####[facility]ATORYCLIA [id number] [address] MCV (RBC) [Entitic vol] 94.2 fL Normal 80.0-100.0 [facility] Comment on above: Order Comment: Speci men Type: BLOOD SPECIMENOrdering Facility: [facility] Address: [address] [place] [address] Performed By: #### 5 8410-2 ####[facility]ATORYCLIA [id number] [address] Nucleated RBC (Bld) [#/Vol] 10*3/uL Normal <0.01 [facility] Comment on above: Order Comment: Speci men Type: BLOOD SPECIMENOrdering Facility: [facility] Address: [address] [place] [address] Performed By: #### 5 8410-2 ####[facility]ATORYCLIA [id number] [address] [place] Platelet mean volume (Bld) [Entitic vol] 10.7 fL Normal 9.0-12.7 [facility] Comment on above: Order Comment: Speci men Type: BLOOD SPECIMENOrdering Facility: [facility] Address: [address] [place] [address] Performed By: #### 5 8410-2 ####[facility]ATORYCLIA [id number] [address] [place] Platelets (Bld) [#/Vol] 352 10*3/uL Normal 150-400 [facility] Comment on above: Order Comment: Speci men Type: BLOOD SPECIMENOrdering Facility: [facility] Address: [address] [place] [address] Performed By: #### 5 8410-2 ####[facility]ATORYCLIA [id number] [address] [place] RBC (Bld) [#/Vol] 3.08 10*6/uL Low 4.20-6.00 [facility] Comment on above: Order Comment: Speci men Type: BLOOD SPECIMENOrdering Facility: [facility] Address: [address] [place] [address] Performed By: #### 5 8410-2 ####[facility]ATORYCLIA [id number] [address] OF [facility] WBC (Bld) [#/Vol] 14.22 10*3/uL High 3.70-11.00 [facility] Comment on above: Order Comment: Speci men Type: BLOOD SPECIMENOrdering Facility: [facility] Address: [address] [place] [address] Performed By: #### 5 8410-2 ####[facility]ATORYCLIA [id number] [address] Erythrocyte distribution width (RBC) [Ratio] 13.5 % Normal 11.5-15.0 [facility] Comment on above: Order Comment: Speci men Type: BLOOD SPECIMENOrdering Facility: [facility] Address: [address] [place] [address] Performed By: #### 5 8410-2 ####[facility]ATORYCLIA [id number] [address] Hematocrit (Bld) [Volume fraction] 30.7 % Low 39.0-51.0 [facility] Comment on above: Order Comment: Speci men Type: BLOOD SPECIMENOrdering Facility: [facility] Address: [address] [place] [address] Performed By: #### 5 8410-2 ####[facility]ORYCLIA [id number] [address] Hemoglobin (Bld) [Mass/Vol] 10.1 g/dL Low 13.0-17.0 [facility] Comment on above: Order Comment: Speci men Type: BLOOD SPECIMENOrdering Facility: [facility] Address: [address] [place] [address] Performed By: #### 5 8410-2 ####[facility]ATORYCLIA [id number] [address] STATES [facility] MCH (RBC) [Entitic mass] 30.5 pg Normal 26.0-34.0 [facility] Comment on above: Order Comment: Speci men Type: BLOOD SPECIMENOrdering Facility: [facility] Address: [address] [place] [address] Performed By: #### 5 8410-2 ####[facility]ORYCLIA [id number] [address] [place] MCHC (RBC) [Mass/Vol] 32.9 g/dL Normal 30.5-36.0 [facility] Comment on above: Order Comment: Speci men Type: BLOOD SPECIMENOrdering Facility: [facility] Address: [address] [place] [address] Performed By: #### 5 8410-2 ####[facility]ATORYCLIA [id number] [address] MCV (RBC) [Entitic vol] 92.7 fL Normal 80.0-100.0 [facility] Comment on above: Order Comment: Speci men Type: BLOOD SPECIMENOrdering Facility: [facility] Address: [address] [place] [address] Performed By: #### 5 8410-2 ####[facility]ATORYCLIA [id number] [address] Nucleated RBC (Bld) [#/Vol] 0.02 10*3/uL High <0.01 [facility] Comment on above: Order Comment: Speci men Type: BLOOD SPECIMENOrdering Facility: [facility] Address: [address] [place] [address] Performed By: #### 5 8410-2 ####[facility]ORYCLIA [id number] [address] [place] Platelet mean volume (Bld) [Entitic vol] 10.4 fL Normal 9.0-12.7 [facility] Comment on above: Order Comment: Speci men Type: BLOOD SPECIMENOrdering Facility: [facility] Address: [address] [place] [address] Performed By: #### 5 8410-2 ####[facility]ATORYCLIA [id number] [place] [address] [place] Platelets (Bld) [#/Vol] 380 10*3/uL Normal 150-400 [facility] Comment on above: Order Comment: Speci men Type: BLOOD SPECIMENOrdering Facility: [facility] Address: [address] [place] [address] Performed By: #### 5 8410-2 ####[facility]ORYCLIA [id number] [place] [address] [place] RBC (Bld) [#/Vol] 3.31 10*6/uL Low 4.20-6.00 [facility] Comment on above: Order Comment: Speci men Type: BLOOD SPECIMENOrdering Facility: [facility] Address: [address] [place] [address] Performed By: #### 5 8410-2 ####[facility]ORYCLIA [id number] [address] [place] WBC (Bld) [#/Vol] 15.57 10*3/uL High 3.70-11.00 [facility] Comment on above: Order Comment: Speci men Type: BLOOD SPECIMENOrdering Facility: [facility] Address: [address] [place] [address] Performed By: #### 5 8410-2 ####[facility]ATORYCLIA [id number] [address] [place] CONSULT PROGon 12-08-2024 CONSULT PROG Normal [facility] Calcium.ionized [Moles/Vol]o n 12-08-2024 Calcium.ionized (BldV) [Mass/Vol] 1.17 mmol/L Normal 1.08-1.30 [facility] Comment on above: Order Comment: Speci men Type: BLOOD SPECIMENOrdering Facility: [facility] Address: [address] [place] [address] Performed By: #### 1 995-0 ####[facility]ORYCLIA [id number] [address] [place] Calcium.ionized adjusted to pH 7.4 (Bld) [Moles/Vol] 1.16 mmol/L Normal 1.08-1.30 [facility] Comment on above: Order Comment: Speci men Type: BLOOD SPECIMENOrdering Facility: [facility] Address: [address] [place] [address] Performed By: #### 1 995-0 ####[facility]ORYCLIA [id number] [address] [place] HIGH SENSITIVITY TROPONIN To n 12-08-2024 Troponin T.cardiac High sensitivity method [Mass/Vol] 239 ng/L High <12 [facility] Comment on above: Order Comment: Speci men Type: BLOOD SPECIMENOrdering Facility: [facility] Address: [address] [place] [address] Performed By: #### H STNT ####[facility]ATORYCLIA [id number] [address] [place] Troponin T.cardiac High sensitivity method [Mass/Vol] 259 ng/L High <12 [facility] Comment on above: Order Comment: Speci men Type: BLOOD SPECIMENOrdering Facility: [facility] Address: [address] [place] [address] Performed By: #### H STNT ####[facility]ATORYCLIA [id number] [address] [place] Troponin T.cardiac High sensitivity method [Mass/Vol] 252 ng/L High <12 [facility] Comment on above: Order Comment: Speci men Type: BLOOD SPECIMENOrdering Facility: [facility] Address: [address] [place] [address] Performed By: #### H STNT ####[facility]ORYCLIA [id number] [address] Troponin T.cardiac High sensitivity method [Mass/Vol] 310 ng/L High <12 [facility] Comment on above: Order Comment: Speci men Type: BLOOD SPECIMENOrdering Facility: [facility] Address: [address] [place] [address] Performed By: #### H STNT ####[facility]ATORYCLIA [id number] [place] [address] [place] Magnesium SerPl-[facility] 12-08 Magnesium [Mass/Vol] 1.9 mg/dL Normal 1.7-2.3 [facility] Comment on above: Order Comment: Speci men Type: BLOOD SPECIMENOrdering Facility: [facility] Address: [address] [place] [address] Performed By: #### 1 9123-9, 2777-1, 46717-7 ####[facility]ORYCLIA [id number] [place] [address] [place] NUTRITIONon 12-08-2024 NUTRITION Normal [facility]08 Phosphate [Mass/Vol] 4.1 mg/dL Normal 2.7-4.8 [facility] Comment on above: Order Comment: Speci men Type: BLOOD SPECIMENOrdering Facility: [facility] Address: [address] [place] [address] Performed By: #### 1 9123-9, 2777-1, 77261-8 ####[facility]ATORYCLIA [id number] [place] [address] [place] THERAPY NTon 12-08-2024 THERAPY NT Normal [facility] ALLIED HEALTHon 12-07-2024 ALLIED HEALTH Normal [facility] Basic metabolic 2000 panelon 12-07-2024 Anion gap [Moles/Vol] 9 mmol/L Normal 8-15 [facility] Comment on above: Order Comment: Speci men Type: BLOOD SPECIMENOrdering Facility: [facility] Address: [address] [place] [address] Performed By: #### 2 4321-2 ####[facility] LABORATORYCLIA [id number] [place] [address] [place] Calcium [Mass/Vol] 8.6 mg/dL Normal 8.5-10.2 [facility] Care Comment on above: Order Comment: Speci men Type: BLOOD SPECIMENOrdering Facility: [facility] Address: [address] [place] [address] Performed By: #### 2 4321-2 ####[facility]ATORYCLIA [id number] [place] [address] [place] Chloride [Moles/Vol] 106 mmol/L Normal 98-107 [facility] Comment on above: Order Comment: Speci men Type: BLOOD SPECIMENOrdering Facility: [facility] Address: [address] [place] [address] Performed By: #### 2 4321-2 ####[facility]ORATORYCLIA [id number] [place] [address] [place] CO2 [Moles/Vol] 32 mmol/L High 22-30 [facility] Comment on above: Order Comment: Speci men Type: BLOOD SPECIMENOrdering Facility: [facility] Address: [address] [place] [address] Performed By: #### 2 4321-2 ####[facility]ATORYCLIA [id number] [place] [address] [place] Creatinine [Mass/Vol] 2.05 mg/dL High 0.73-1.22 [facility] Comment on above: Order Comment: Speci men Type: BLOOD SPECIMENOrdering Facility: [facility] Address: [address] [place] [address] Performed By: #### 2 4321-2 ####[facility] LABORATORYCLIA [id number] [address] [place] Creatinine and Glomerular filtration rate.predicted panel (S/P/Bld) 33 mL/min/1.73m??? Low >=60 [facility] Comment on above: Order Comment: Stuart madrigal Type: BLOOD SPECIMENOrdering Facility: [facility] Address: [address] [place] [address] Result Comment: Eli mated Glomerular Filtration Rate (eGFR) is calculated using the 2020 CKD-EPI creatinine equation. This equation utilizes serum creatinine, sex, and age as parameters. The creatinine assay has traceable calibration to isotope dilution-mass spectrometry. Refer to KDIGO guidelines for clinical interpretation. In patients with unstable renal function, e.g. those with acute kidney injury, the eGFR may not accurately reflect actual GFR. Performed By: #### 2 4321-2 ####[facility]ATORYCLIA [id number] [place] [address] [place] Glucose [Mass/Vol] 59 mg/dL Low 74-99 [facility] Comment on above: Order Comment: Stuart madrigal Type: BLOOD SPECIMENOrdering Facility: [facility] Address: [address] [place] [address] Result Comment: The [place] Diabetes [employer] (ADA) provides guidance for cutoff values for fasting glucose and random glucose. The ADA defines fasting as no caloric intake for at least 8 hours. Fasting plasma glucose results between 100 to 125 mg/dL indicate increased risk for diabetes (prediabetes).Fasting plasma glucose results greater than or equal to 126 mg/dL meet the criteria for diagnosis of diabetes. In the absence of unequivocal hyperglycemia, results should be confirmed by repeat testing. In a patient with classic symptoms of hyperglycemia or hyperglycemic crisis, random plasma glucose results greater than or equal to 200 mg/dL meet the criteria for diagnosis of diabetes.Reference: Standards of Medical Care in Diabetes 2016, [place] [employer]. Diabetes Care. 2016.39(Suppl 1). Performed By: #### 2 4321-2 ####[facility]ATORYCLIA [id number] [place] [address] [place] Potassium [Moles/Vol] 3.5 mmol/L Low 3.7-5.1 [facility] Comment on above: Order Comment: Stuart madrigal Type: BLOOD SPECIMENOrdering Facility: [facility] Address: [address] [place] [address] Performed By: #### 2 4321-2 ####[facility]ORATORYCLIA [id number] [place] [address] [place] Sodium [Moles/Vol] 147 mmol/L High 136-144 [facility] Comment on above: Order Comment: Speci men Type: BLOOD SPECIMENOrdering Facility: [facility] Address: [address] [place] [address] Performed By: #### 2 4321-2 ####[facility]ORATORYCLIA [id number] [place] [address] [place] Urea nitrogen [Mass/Vol] 58 mg/dL High 9-24 [facility] Comment on above: Order Comment: Speci men Type: BLOOD SPECIMENOrdering Facility: [facility] Address: [address] [place] [address] Performed By: #### 2 4321-2 ####[facility]ATORYCLIA [id number] [place] [address] [place] Anion gap [Moles/Vol] 14 mmol/L Normal 8-15 [facility] Comment on above: Order Comment: Speci men Type: BLOOD SPECIMENOrdering Facility: [facility] Address: [address] [place] [address] Performed By: #### 2 4321-2, 8 ####[facility]ATORYCLIA [id number] [place] [address] [place] Calcium [Mass/Vol] 9.1 mg/dL Normal 8.5-10.2 [facility] Comment on above: Order Comment: Speci men Type: BLOOD SPECIMENOrdering Facility: [facility] Address: [address] [place] [address] Performed By: #### 2 4321-2, 2570-8 ####[facility]ORYCLIA [id number] [place] [address] [place] Chloride [Moles/Vol] 105 mmol/L Normal 98-107 [facility] Comment on above: Order Comment: Speci men Type: BLOOD SPECIMENOrdering Facility: [facility] Address: [address] [place] [address] Performed By: #### 2 4321-2, 8 ####[facility]ATORYCLIA [id number] [place] [address] [place] CO2 [Moles/Vol] 28 mmol/L Normal 22-30 [facility] Comment on above: Order Comment: Speci men Type: BLOOD SPECIMENOrdering Facility: [facility] Address: [address] [place] [address] Performed By: #### 2 432-2, 2571-02 ####[facility]ATORYCLIA [id number] [address] [place] Creatinine [Mass/Vol] 1.96 mg/dL High 0.73-1.22 [facility] Comment on above: Order Comment: Speci men Type: BLOOD SPECIMENOrdering Facility: [facility] Address: [address] [place] [address] Performed By: #### 2 43207-27, 8 ####[facility]ATORYCLIA [id number] [address] Creatinine and Glomerular filtration rate.predicted panel (S/P/Bld) 34 mL/min/1.73m??? Low >=60 [facility] Comment on above: Order Comment: Speci men Type: BLOOD SPECIMENOrdering Facility: [facility] Address: [address] [place] [address] Result Comment: Eli mated Glomerular Filtration Rate (eGFR) is calculated using the 2020 CKD-EPI creatinine equation. This equation utilizes serum creatinine, sex, and age as parameters. The creatinine assay has traceable calibration to isotope dilution-mass spectrometry. Refer to KDIGO guidelines for clinical interpretation. In patients with unstable renal function, e.g. those with acute kidney injury, the eGFR may not accurately reflect actual GFR. Performed By: #### 2 4321-2, 2570-8 ####[facility]ATORYCLIA [id number] [address] [place] Glucose [Mass/Vol] 171 mg/dL High 74-99 [facility] Comment on above: Order Comment: Speci men Type: BLOOD SPECIMENOrdering Facility: [facility] Address: [address] [place] [address] Result Comment: The [place] Diabetes Association (ADA) provides guidance for cutoff values for fasting glucose and random glucose. The ADA defines fasting as no caloric intake for at least 8 hours. Fasting plasma glucose results between 100 to 125 mg/dL indicate increased risk for diabetes (prediabetes).Fasting plasma glucose results greater than or equal to 126 mg/dL meet the criteria for diagnosis of diabetes. In the absence of unequivocal hyperglycemia, results should be confirmed by repeat testing. In a patient with classic symptoms of hyperglycemia or hyperglycemic crisis, random plasma glucose results greater than or equal to 200 mg/dL meet the criteria for diagnosis of diabetes.Reference: Standards of Medical Care in Diabetes 2016, [place] [employer]. Diabetes Care. 2016.39(Suppl 1). Performed By: #### 2 4321-2, 2571-02 ####[facility]ATORYCLIA [id number] [place] [address] [place] Potassium [Moles/Vol] 3.8 mmol/L Normal 3.7-5.1 [facility] Comment on above: Order Comment: Stuart madrigal Type: BLOOD SPECIMENOrdering Facility: [facility] Address: [address] [place] [address] Performed By: #### 2 4321-2, 2571-02 ####[facility]ORYCLIA [id number] [place] [address] [place] Sodium [Moles/Vol] 147 mmol/L High 136-144 [facility] Comment on above: Order Comment: Daríoi men Type: BLOOD SPECIMENOrdering Facility: [facility] Address: [address] [place] [address] Performed By: #### 2 4321-2, 8 ####[facility]ATORYCLIA [id number] [place] [address] [place] Urea nitrogen [Mass/Vol] 57 mg/dL High 9-24 [facility] Comment on above: Order Comment: Speci men Type: BLOOD SPECIMENOrdering Facility: [facility] Address: [address] [place] [address] Performed By: #### 2 4321-2, 2571-8 ####[facility]ATORYCLIA [id number] [place] [address] [place] Anion gap [Moles/Vol] 15 mmol/L Normal 8-15 [facility] Comment on above: Order Comment: Speci men Type: BLOOD SPECIMENOrdering Facility: [facility] Address: [address] [place] [address] Performed By: #### 2 4321-2, , 2776-07 ####[facility]ATORYCLIA [id number] [place] [address] [place] Calcium [Mass/Vol] 9.4 mg/dL Normal 8.5-10.2 [facility] Comment on above: Order Comment: Speci men Type: BLOOD SPECIMENOrdering Facility: [facility] Address: [address] [place] [address] Performed By: #### 2 4321-2, , 2776-07 ####[facility]ATORYCLIA [id number] [place] [address] [place] Chloride [Moles/Vol] 102 mmol/L Normal 98-107 [facility] Comment on above: Order Comment: Speci men Type: BLOOD SPECIMENOrdering Facility: [facility] Address: [address] [place] [address] Performed By: #### 2 4321-2, , 277- ####[facility]ATORYCLIA [id number] [place] [address] [place] CO2 [Moles/Vol] 26 mmol/L Normal 22-30 [facility] Comment on above: Order Comment: Speci men Type: BLOOD SPECIMENOrdering Facility: [facility] Address: [address] [place] [address] Performed By: #### 2 4321-2, , 2776- ####[facility]ATORYCLIA [id number] [place] [address] [place] Creatinine [Mass/Vol] 1.98 mg/dL High 0.73-1.22 [facility] Comment on above: Order Comment: Stuart madrigal Type: BLOOD SPECIMENOrdering Facility: [facility] Address: [address] [place] [address] Performed By: #### 2 4321-2, , 2776-07 ####[facility]ATORYCLIA [id number] [place] [id number] [facility] Creatinine and Glomerular filtration rate.predicted panel (S/P/Bld) 34 mL/min/1.73m??? Low >=60 [facility] Comment on above: Order Comment: Stuart madrigal Type: BLOOD SPECIMENOrdering Facility: [facility] Address: [address] [place] [address] Result Comment: Eli mated Glomerular Filtration Rate (eGFR) is calculated using the 2020 CKD-EPI creatinine equation. This equation utilizes serum creatinine, sex, and age as parameters. The creatinine assay has traceable calibration to isotope dilution-mass spectrometry. Refer to KDIGO guidelines for clinical interpretation. In patients with unstable renal function, e.g. those with acute kidney injury, the eGFR may not accurately reflect actual GFR. Performed By: #### 2 4321-2, , 2776-07 ####[facility]ATORYCLIA [id number] [place] [address] [place] [facility] Glucose [Mass/Vol] 230 mg/dL High 74-99 [facility] Comment on above: Order Comment: Stuart madrigal Type: BLOOD SPECIMENOrdering Facility: [facility] Address: [address] [place] [address] Result Comment: The [place] Diabetes [employer] (ADA) provides guidance for cutoff values for fasting glucose and random glucose. The ADA defines fasting as no caloric intake for at least 8 hours. Fasting plasma glucose results between 100 to 125 mg/dL indicate increased risk for diabetes (prediabetes).Fasting plasma glucose results greater than or equal to 126 mg/dL meet the criteria for diagnosis of diabetes. In the absence of unequivocal hyperglycemia, results should be confirmed by repeat testing. In a patient with classic symptoms of hyperglycemia or hyperglycemic crisis, random plasma glucose results greater than or equal to 200 mg/dL meet the criteria for diagnosis of diabetes.Reference: Standards of Medical Care in Diabetes 2016, [place] [employer]. Diabetes Care. 2016.39(Suppl 1). Performed By: #### 2 4321-2, , 2776-07 ####[facility]ATORYCLIA [id number] [place] [address] [place] Potassium [Moles/Vol] 3.1 mmol/L Low 3.7-5.1 [facility] Comment on above: Order Comment: Speci men Type: BLOOD SPECIMENOrdering Facility: [facility] Address: [address] [place] [address] Performed By: #### 2 4321-2, , 2776-07 ####[facility]ITALCL[facility] [id number] [address] STATES OF [facility] Sodium [Moles/Vol] 143 mmol/L Normal 136-144 [facility] Comment on above: Order Comment: Speci men Type: BLOOD SPECIMENOrdering Facility: [facility] Address: [address] [place] [address] Performed By: #### 2 4321-2, , 2776-07 ####[facility]ATORYCLIA [id number] [address] [place] Urea nitrogen [Mass/Vol] 59 mg/dL High 9-24 [facility] Comment on above: Order Comment: Speci men Type: BLOOD SPECIMENOrdering Facility: [facility] Address: [address] [place] [address] Performed By: #### 2 4321-2, , 2776-07 ####[facility]ATORYCLIA [id number] [address] [place] CBC panel Auto (Bld)on 12-07 Erythrocyte distribution width (RBC) [Ratio] 13.5 % Normal 11.5-15.0 [facility] Comment on above: Order Comment: Speci men Type: BLOOD SPECIMENOrdering Facility: [facility] Address: [address] [place] [address] Performed By: #### 5 8410-2 ####[facility]ATORYCLIA [id number] [address] Hematocrit (Bld) [Volume fraction] 26.3 % Low 39.0-51.0 [facility] Comment on above: Order Comment: Speci men Type: BLOOD SPECIMENOrdering Facility: [facility] Address: [address] [place] [address] Performed By: #### 5 8410-2 ####[facility]ATORYCLIA [id number] [address] OF [facility] Hemoglobin (Bld) [Mass/Vol] 8.6 g/dL Low 13.0-17.0 [facility] Comment on above: Order Comment: Speci men Type: BLOOD SPECIMENOrdering Facility: [facility] Address: [address] [place] [address] Performed By: #### 5 8410-2 ####[facility]ATORYCLIA [id number] [address] STATES [facility] MCH (RBC) [Entitic mass] 30.4 pg Normal 26.0-34.0 [facility] Comment on above: Order Comment: Speci men Type: BLOOD SPECIMENOrdering Facility: [facility] Address: [address] [place] [address] Performed By: #### 5 8410-2 ####[facility]ATORYCLIA [id number] [address] [place] MCHC (RBC) [Mass/Vol] 32.7 g/dL Normal 30.5-36.0 [facility] Comment on above: Order Comment: Speci men Type: BLOOD SPECIMENOrdering Facility: [facility] Address: [address] [place] [address] Performed By: #### 5 8410-2 ####[facility]ATORYCLIA [id number] [place] [address] [place] MCV (RBC) [Entitic vol] 92.9 fL Normal 80.0-100.0 [facility] Comment on above: Order Comment: Speci men Type: BLOOD SPECIMENOrdering Facility: [facility] Address: [address] [place] [address] Performed By: #### 5 8410-2 ####[facility]ATORYCLIA [id number] [place] [address] [place] Nucleated RBC (Bld) [#/Vol] 0.03 10*3/uL High <0.01 [facility] Comment on above: Order Comment: Speci men Type: BLOOD SPECIMENOrdering Facility: [facility] Address: [address] [place] [address] Performed By: #### 5 8410-2 ####[facility]ORYCLIA [id number] [address] [place] Platelet mean volume (Bld) [Entitic vol] 10.3 fL Normal 9.0-12.7 [facility] Comment on above: Order Comment: Speci men Type: BLOOD SPECIMENOrdering Facility: [facility] Address: [address] [place] [address] Performed By: #### 5 8410-2 ####[facility]ATORYCLIA [id number] [address] [place] Platelets (Bld) [#/Vol] 330 10*3/uL Normal 150-400 [facility] Comment on above: Order Comment: Speci men Type: BLOOD SPECIMENOrdering Facility: [facility] Address: [address] [place] [address] Performed By: #### 5 8410-2 ####[facility]ATORYCLIA [id number] [place] [address] [place] RBC (Bld) [#/Vol] 2.83 10*6/uL Low 4.20-6.00 [facility] Comment on above: Order Comment: Speci men Type: BLOOD SPECIMENOrdering Facility: [facility] Address: [address] [place] [address] Performed By: #### 5 8410-2 ####[facility]ORYCLIA [id number] [address] [place] WBC (Bld) [#/Vol] 11.75 10*3/uL High 3.70-11.00 [facility] Comment on above: Order Comment: Speci men Type: BLOOD SPECIMENOrdering Facility: [facility] Address: [address] [place] [address] Performed By: #### 5 8410-2 ####[facility]ATORYCLIA [id number] [address] Erythrocyte distribution width (RBC) [Ratio] 13.3 % Normal 11.5-15.0 [facility] Comment on above: Order Comment: Speci men Type: BLOOD SPECIMENOrdering Facility: [facility] Address: [address] [place] [address] Performed By: #### 5 8410-2 ####[facility]ATORYCLIA [id number] [address] Hematocrit (Bld) [Volume fraction] 29.1 % Low 39.0-51.0 [facility] Comment on above: Order Comment: Speci men Type: BLOOD SPECIMENOrdering Facility: [facility] Address: [address] [place] [address] Performed By: #### 5 8410-2 ####[facility]ATORYCLIA [id number] [address] [place] Hemoglobin (Bld) [Mass/Vol] 10.1 g/dL Low 13.0-17.0 [facility] Comment on above: Order Comment: Speci men Type: BLOOD SPECIMENOrdering Facility: [facility] Address: [address] [place] [address] Performed By: #### 5 8410-2 ####[facility]ATORYCLIA [id number] [address] [place] MCH (RBC) [Entitic mass] 31.5 pg Normal 26.0-34.0 [facility] Comment on above: Order Comment: Speci men Type: BLOOD SPECIMENOrdering Facility: [facility] Address: [address] [place] [address] Performed By: #### 5 8410-2 ####[facility]ATORYCLIA [id number] [address] MCHC (RBC) [Mass/Vol] 34.7 g/dL Normal 30.5-36.0 [facility] Comment on above: Order Comment: Speci men Type: BLOOD SPECIMENOrdering Facility: [facility] Address: [address] [place] [address] Performed By: #### 5 8410-2 ####[facility]ATORYCLIA [id number] [address] MCV (RBC) [Entitic vol] 90.7 fL Normal 80.0-100.0 [facility] Comment on above: Order Comment: Speci men Type: BLOOD SPECIMENOrdering Facility: [facility] Address: [address] [place] [address] Performed By: #### 5 8410-2 ####[facility]ORYCLIA [id number] [address] Nucleated RBC (Bld) [#/Vol] 10*3/uL Normal <0.01 [facility] Comment on above: Order Comment: Speci men Type: BLOOD SPECIMENOrdering Facility: [facility] Address: [address] [place] [address] Performed By: #### 5 8410-2 ####[facility]ATORYCLIA [id number] [address] Platelet mean volume (Bld) [Entitic vol] 10.5 fL Normal 9.0-12.7 [facility] Comment on above: Order Comment: Speci men Type: BLOOD SPECIMENOrdering Facility: [facility] Address: [address] [place] [address] Performed By: #### 5 8410-2 ####[facility]ATORYCLIA [id number] [address] [place] Platelets (Bld) [#/Vol] 392 10*3/uL Normal 150-400 [facility] Comment on above: Order Comment: Speci men Type: BLOOD SPECIMENOrdering Facility: [facility] Address: [address] [place] [address] Performed By: #### 5 8410-2 ####[facility]ATORYCLIA [id number] [place] [address] [place] RBC (Bld) [#/Vol] 3.21 10*6/uL Low 4.20-6.00 [facility] Comment on above: Order Comment: Speci men Type: BLOOD SPECIMENOrdering Facility: [facility] Address: [address] [place] [address] Performed By: #### 5 8410-2 ####[facility]ATORYCLIA [id number] [address] STATES OF [facility] WBC (Bld) [#/Vol] 17.80 10*3/uL High 3.70-11.00 [facility] Comment on above: Order Comment: Speci men Type: BLOOD SPECIMENOrdering Facility: [facility] Address: [address] [place] [address] Performed By: #### 5 8410-2 ####[facility]ORYCLIA [id number] [address] [place] CONSULT PROGon 12-07-2024 CONSULT PROG Normal [facility] CONSULT PROG Normal [facility] Calcium.ionized [Moles/Vol]o n 12-07-2024 Calcium.ionized (BldV) [Mass/Vol] 1.23 mmol/L Normal 1.08-1.30 [facility] Comment on above: Order Comment: Speci men Type: BLOOD SPECIMENOrdering Facility: [facility] Address: [address] [place] [address] Performed By: #### 1 995-0 ####[facility]ATORYCLIA [id number] [address] Calcium.ionized adjusted to pH 7.4 (Bld) [Moles/Vol] 1.28 mmol/L Normal 1.08-1.30 [facility] Comment on above: Order Comment: Speci men Type: BLOOD SPECIMENOrdering Facility: [facility] Address: [address] [place] [address] Performed By: #### 1 995-0 ####[facility]ORYCLIA [id number] [address] ECG COMPLETEon 12-07-2024 ECG COMPLETE Normal [facility] HIGH SENSITIVITY TROPONIN To n 12-07-2024 Troponin T.cardiac High sensitivity method [Mass/Vol] 319 ng/L High <12 [facility] Comment on above: Order Comment: Speci men Type: BLOOD SPECIMENOrdering Facility: [facility] Address: [address] [place] [address] Performed By: #### H STNT ####[facility]ORYCLIA [id number] [address] Magnesium SerPl-mCncon 12-07 Magnesium [Mass/Vol] 2.1 mg/dL Normal 1.7-2.3 [facility] Comment on above: Order Comment: Speci men Type: BLOOD SPECIMENOrdering Facility: [facility] Address: [address] [place] [address] Performed By: #### 2 4321-2, , 2776-07 ####[facility]ATORYCLIA [id number] [address] [place] NURSING PROGon 12-07-2024 NURSING PROG Normal [facility] NUTRITIONon 12-07-2024 NUTRITION Normal [facility] Phosphate SerPl-mCncon 12-07 Phosphate [Mass/Vol] 2.7 mg/dL Normal 2.7-4.8 [facility] Comment on above: Order Comment: Speci men Type: BLOOD SPECIMENOrdering Facility: [facility] Address: [address] [place] [address] Performed By: #### 2 4321-2, , 27701-23 ####[facility]ORYCLIA [id number] [address] [place] THERAPY NTon 12-07-2024 THERAPY NT Normal [facility] Trigl SerPl-mCncon 5 Triglyceride [Mass/Vol] 177 mg/dL High <150 [facility] Comment on above: Order Comment: Speci men Type: BLOOD SPECIMENOrdering Facility: [facility] Address: [address] [place] [address] Result Comment: <150 mg/dL, Normal 150-199 mg/dL, Borderline high 200-499 mg/dL, High>499 mg/dL, Very highReference:1. National Cholesterol Education Program ATP III Guideline At-A-Glance Quick Desk Reference: National Heart, Lung, and Blood [place]. National Institutes of Health. 2001: NIH Publication No. 01-3305. Performed By: #### 2 4321-2, 2571-8 ####[facility]ATORYCLIA [id number] [address] Triglyceride [Mass/Vol]on FASTING TIME 1 hrs Normal [facility] Comment on above: Order Comment: Speci men Type: BLOOD SPECIMENOrdering Facility: [facility] Address: [address] [place] [address] Result Comment: Moraima ent on TPN and propofol Performed By: #### 2 4321-2, 2571-8 ####[facility]ORYCLIA [id number] [address] [place] US DVT UPPER BILon 5 US DVT UPPER CRYSTAL Normal [facility] XR CHEST 1V FRONTALon 2024 XR CHEST 1V FRONTAL Normal [facility] ARTERIAL BLOOD GASESon 12-06 Base deficit (BldA) [Moles/Vol] -2 mmol/L Normal -2-0 [facility] Comment on above: Order Comment: Speci men Type: ARTERIAL BLOOD SPECIMENOrdering Facility: [facility] Address: [address] [place] [address] Performed By: #### A LLBG ####[facility]ATORYCLIA [id number] [address] Body temperature 98.6 [degF] Normal [facility] Comment on above: Order Comment: Speci men Type: ARTERIAL BLOOD SPECIMENOrdering Facility: [facility] Address: [address] [place] [address] Performed By: #### A LLBG ####[facility]ATORYCLIA [id number] [address] Calcium.ionized (BldV) [Mass/Vol] 1.24 mmol/L Normal 1.08-1.30 [facility] Comment on above: Order Comment: Speci men Type: ARTERIAL BLOOD SPECIMENOrdering Facility: [facility] Address: [address] [place] [address] Performed By: #### A LLBG ####[facility]ORYCLIA [id number] [address] Calcium.ionized adjusted to pH 7.4 (BldA) [Moles/Vol] 1.25 mmol/L Normal 1.08-1.30 [facility] Comment on above: Order Comment: Speci men Type: ARTERIAL BLOOD SPECIMENOrdering Facility: [facility] Address: [address] [place] [address] Performed By: #### A LLBG ####[facility]ORYCLIA [id number] [address] OF [facility] Carboxyhemoglobin (BldA) [Mass fraction] 1.3 % Normal 0.0-2.0 [facility] Comment on above: Order Comment: Speci men Type: ARTERIAL BLOOD SPECIMENOrdering Facility: [facility] Address: [address] [place] [address] Result Comment: Carb oxyhemoglobin Reference Range for Smokers: 2.0-8.0% Performed By: #### A LLBG ####[facility]ORYCLIA [id number] [address] [place] Chloride [Moles/Vol] 110 mmol/L High 97-105 [facility] Comment on above: Order Comment: Speci men Type: ARTERIAL BLOOD SPECIMENOrdering Facility: [facility] Address: [address] [place] [address] Performed By: #### A LLBG ####[facility]ORYCLIA [id number] [address] [place] CO2 (Bld) [Partial pressure] 33 mm Hg Low 36-46 [facility] Comment on above: Order Comment: Speci men Type: ARTERIAL BLOOD SPECIMENOrdering Facility: [facility] Address: [address] [place] [address] Performed By: #### A LLBG ####[facility]ORYCLIA [id number] [address] [place] Glucose [Mass/Vol] 367 mg/dL High 60-105 [facility] Comment on above: Order Comment: Speci men Type: ARTERIAL BLOOD SPECIMENOrdering Facility: [facility] Address: [address] [place] [address] Performed By: #### A LLBG ####[facility]ATORYCLIA [id number] [place] [address] [place] HCO3 (Bld) [Moles/Vol] 21 mmol/L Low 22-26 [facility] Comment on above: Order Comment: Speci men Type: ARTERIAL BLOOD SPECIMENOrdering Facility: [facility] Address: [address] [place] [address] Performed By: #### A LLBG ####[facility]ORYCLIA [id number] [address] [place] Hematocrit (Bld) [Volume fraction] 32.0 % Low 39.0-51.0 [facility] Comment on above: Order Comment: Speci men Type: ARTERIAL BLOOD SPECIMENOrdering Facility: [facility] Address: [address] [place] [address] Performed By: #### A LLBG ####[facility]ATORYCLIA [id number] [place] [address] [place] Hemoglobin (Bld) [Mass/Vol] 10.3 g/dL Low 13.0-17.0 [facility] Comment on above: Order Comment: Speci men Type: ARTERIAL BLOOD SPECIMENOrdering Facility: [facility] Address: [facility] [place] [address] Performed By: #### A LLBG ####[facility]ATORYCLIA [id number] [address] [place] Lactate [Moles/Vol] 1.3 mmol/L Normal 0.5-2.2 [facility] Comment on above: Order Comment: Speci men Type: ARTERIAL BLOOD SPECIMENOrdering Facility: [facility] Address: [address] [place] [address] Performed By: #### A LLBG ####[facility]ORYCLIA [id number] [address] [place] Methemoglobin (Bld) [Mass fraction] 0.9 % Normal 0.0-1.5 [facility] Comment on above: Order Comment: Speci men Type: ARTERIAL BLOOD SPECIMENOrdering Facility: [facility] Address: [address] [place] [address] Performed By: #### A LLBG ####[facility]ORYCLIA [id number] [address] O2 THERAPY VENT=Ventilator Normal [facility] Comment on above: Order Comment: Speci men Type: ARTERIAL BLOOD SPECIMENOrdering Facility: [facility] Address: [address] [place] [address] Performed By: #### A LLBG ####[facility]ORYCLIA [id number] [address] [place] Oxygen (Bld) [Partial pressure] 125 mm Hg High 85-95 [facility] Comment on above: Order Comment: Speci men Type: ARTERIAL BLOOD SPECIMENOrdering Facility: [facility] Address: [address] [place] [address] Performed By: #### A LLBG ####[facility]ATORYCLIA [id number] [place] [address] [place] Oxyhemoglobin (BldA) [Mass fraction] 97 % Normal 95-98 [facility] Comment on above: Order Comment: Speci men Type: ARTERIAL BLOOD SPECIMENOrdering Facility: [facility] Address: [address] [place] [address] Performed By: #### A LLBG ####[facility]ATORYCLIA [id number] [place] [address] [place] pH (Bld) 7.42 [pH] Normal 7.35-7.45 [facility] Comment on above: Order Comment: Speci men Type: ARTERIAL BLOOD SPECIMENOrdering Facility: [facility] Address: [address] [place] [address] Performed By: #### A LLBG ####[facility]ORYCLIA [id number] [address] [place] Potassium [Moles/Vol] 3.3 mmol/L Low 3.5-5.0 [facility] Comment on above: Order Comment: Speci men Type: ARTERIAL BLOOD SPECIMENOrdering Facility: [facility] Address: [address] [place] [address] Performed By: #### A LLBG ####[facility]ATORYCLIA [id number] [address] STATES [facility] Sodium [Moles/Vol] 140 mmol/L Normal 136-144 [facility] Comment on above: Order Comment: Speci men Type: ARTERIAL BLOOD SPECIMENOrdering Facility: [facility] Address: [address] [place] [address] Performed By: #### A LLBG ####[facility]ATORYCLIA [id number] [place] [address] [place] Bacteria Spec Resp Culton Bacteria identified Respiratory culture Nom (Unsp spec) CULTURE, RESPIRATORY: No growth 2 days GRAM STAIN: No organisms seen Few Polymorphonuclear leukocytes Few Epithelial cells Normal [facility] Comment on above: Performed By: #### 3 2355-0 ####[facility]ATORYCLIA [id number] [place] [address] [place] Basic metabolic 2000 panelon 05-14-2025 Anion gap [Moles/Vol] 14 mmol/L Normal 8-15 [facility] Comment on above: Order Comment: Speci men Type: BLOOD SPECIMENOrdering Facility: [facility] Address: [address] [place] [address] Performed By: #### 1 9123-9, 2777-1, 03542-4 ####[facility]ATORYCLIA [id number] [place] [address] [place] Calcium [Mass/Vol] 9.0 mg/dL Normal 8.5-10.2 [facility] Comment on above: Order Comment: Speci men Type: BLOOD SPECIMENOrdering Facility: [facility] Address: [address] [place] [address] Performed By: #### 1 9123-9, 27771, 63028-2 ####[facility]ORYCLIA [id number] [place] [address] [place] Chloride [Moles/Vol] 105 mmol/L Normal 98-107 [facility] Comment on above: Order Comment: Speci men Type: BLOOD SPECIMENOrdering Facility: [facility] Address: [address] [place] [address] Performed By: #### 1 9123-9, 2771, 73531-5 ####[facility]ORYCLIA [id number] [place] [address] [place] CO2 [Moles/Vol] 20 mmol/L Low 22-30 [facility] Comment on above: Order Comment: Speci men Type: BLOOD SPECIMENOrdering Facility: [facility] Address: [address] [place] [address] Performed By: #### 1 9123-9, 27771, 68952-7 ####[facility]ATORYCLIA [id number] [place] [address] [place] Creatinine [Mass/Vol] 2.17 mg/dL High 0.73-1.22 [facility] Comment on above: Order Comment: Speci men Type: BLOOD SPECIMENOrdering Facility: [facility] Address: [address] [place] [address] Performed By: #### 1 9123-9, 2777-1, 86246-5 ####[facility]ORYCLIA [id number] [address] [place] Creatinine and Glomerular filtration rate.predicted panel (S/P/Bld) 30 mL/min/1.73m??? Low >=60 [facility] Comment on above: Order Comment: Stuart madrigal Type: BLOOD SPECIMENOrdering Facility: [facility] Address: [address] [place] [address] Result Comment: Eli mated Glomerular Filtration Rate (eGFR) is calculated using the 2020 CKD-EPI creatinine equation. This equation utilizes serum creatinine, sex, and age as parameters. The creatinine assay has traceable calibration to isotope dilution-mass spectrometry. Refer to KDIGO guidelines for clinical interpretation. In patients with unstable renal function, e.g. those with acute kidney injury, the eGFR may not accurately reflect actual GFR. Performed By: #### 1 9123-9, 2777-1, 28916-7 ####[facility] LAB[facility]ATORYIA [id number] [place] [address] [place] Glucose [Mass/Vol] 397 mg/dL High 74-99 [facility] Comment on above: Order Comment: Stuart madrigal Type: BLOOD SPECIMENOrdering Facility: [facility] Address: [address] [place] [address] Result Comment: The [place] [employer] (ADA) provides guidance for cutoff values for fasting glucose and random glucose. The ADA defines fasting as no caloric intake for at least 8 hours. Fasting plasma glucose results between 100 to 125 mg/dL indicate increased risk for diabetes (prediabetes).Fasting plasma glucose results greater than or equal to 126 mg/dL meet the criteria for diagnosis of diabetes. In the absence of unequivocal hyperglycemia, results should be confirmed by repeat testing. In a patient with classic symptoms of hyperglycemia or hyperglycemic crisis, random plasma glucose results greater than or equal to 200 mg/dL meet the criteria for diagnosis of diabetes.Reference: Standards of Medical Care in Diabetes 2016, [place] [employer]. Diabetes Care. 2016.39(Suppl 1). Performed By: #### 1 9123-9, 2777-1, 61949-8 ####[facility]ATORYCLIA [id number] [place] [address] [place] Potassium [Moles/Vol] 3.5 mmol/L Low 3.7-5.1 [facility] Comment on above: Order Comment: Speci men Type: BLOOD SPECIMENOrdering Facility: [facility] Address: [address] [place] [address] Performed By: #### 1 9123-9, 2777-, 23197-0 ####[facility]ATORYCLIA [id number] [place] [address] [place] Sodium [Moles/Vol] 139 mmol/L Normal 136-144 [facility] Comment on above: Order Comment: Speci men Type: BLOOD SPECIMENOrdering Facility: [facility] Address: [address] [place] [address] Performed By: #### 1 9123-9, 2777-, 16222-9 ####[facility]ATORYCLIA [id number] [place] [address] [place] Urea nitrogen [Mass/Vol] 56 mg/dL High 9-24 [facility] Comment on above: Order Comment: Speci men Type: BLOOD SPECIMENOrdering Facility: [facility] Address: [address] [place] [address] Performed By: #### 1 9123-9, 2777-, 21792-8 ####[facility]ORYCLIA [id number] [place] [address] [place] CASE MGT INIT ASSESon 2024 CASE MGT INIT ASSES Normal [facility] CBC panel Auto (Bld)on 12-06 Erythrocyte distribution width (RBC) [Ratio] 13.5 % Normal 11.5-15.0 [facility] Comment on above: Order Comment: Speci men Type: BLOOD SPECIMENOrdering Facility: [facility] Address: [address] [place] [address] Performed By: #### 5 8410-2 ####[facility]ATORYCLIA [id number] [address] OF [facility] Hematocrit (Bld) [Volume fraction] 29.8 % Low 39.0-51.0 [facility] Comment on above: Order Comment: Speci men Type: BLOOD SPECIMENOrdering Facility: [facility] Address: [address] [place] [address] Performed By: #### 5 8410-2 ####[facility]ORYCLIA [id number] [address] OF [facility] Hemoglobin (Bld) [Mass/Vol] 10.2 g/dL Low 13.0-17.0 [facility] Comment on above: Order Comment: Speci men Type: BLOOD SPECIMENOrdering Facility: [facility] Address: [address] [place] [address] Performed By: #### 5 8410-2 ####[facility]ATORYCLIA [id number] [address] MCH (RBC) [Entitic mass] 31.2 pg Normal 26.0-34.0 [facility] Comment on above: Order Comment: Speci men Type: BLOOD SPECIMENOrdering Facility: [facility] Address: [address] [place] [address] Performed By: #### 5 8410-2 ####[facility]ATORYCLIA [id number] [address] OF [place] MCHC (RBC) [Mass/Vol] 34.2 g/dL Normal 30.5-36.0 [facility] Comment on above: Order Comment: Speci men Type: BLOOD SPECIMENOrdering Facility: [facility] Address: [address] [place] [address] Performed By: #### 5 8410-2 ####[facility]ORYCLIA [id number] [address] OF [facility] MCV (RBC) [Entitic vol] 91.1 fL Normal 80.0-100.0 [facility] Comment on above: Order Comment: Speci men Type: BLOOD SPECIMENOrdering Facility: [facility] Address: [address] [place] [address] Performed By: #### 5 8410-2 ####[facility]ATORYCLIA [id number] [address] Nucleated RBC (Bld) [#/Vol] 10*3/uL Normal <0.01 [facility] Comment on above: Order Comment: Speci men Type: BLOOD SPECIMENOrdering Facility: [facility] Address: [facility] [place] [address] Performed By: #### 5 8410-2 ####[facility]ATORYCLIA [id number] [address] [place] Platelet mean volume (Bld) [Entitic vol] 10.3 fL Normal 9.0-12.7 [facility] Comment on above: Order Comment: Speci men Type: BLOOD SPECIMENOrdering Facility: [facility] Address: [address] [place] [address] Performed By: #### 5 8410-2 ####[facility]ATORYCLIA [id number] [address] [place] Platelets (Bld) [#/Vol] 387 10*3/uL Normal 150-400 [facility] Comment on above: Order Comment: Speci men Type: BLOOD SPECIMENOrdering Facility: [facility] Address: [address] [place] [address] Performed By: #### 5 8410-2 ####[facility]ATORYCLIA [id number] [address] [place] RBC (Bld) [#/Vol] 3.27 10*6/uL Low 4.20-6.00 [facility] Comment on above: Order Comment: Speci men Type: BLOOD SPECIMENOrdering Facility: [facility] Address: [address] [place] [address] Performed By: #### 5 8410-2 ####[facility]ATORYCLIA [id number] [address] [place] WBC (Bld) [#/Vol] 16.42 10*3/uL High 3.70-11.00 [facility] Comment on above: Order Comment: Speci men Type: BLOOD SPECIMENOrdering Facility: [facility] Address: [address] [place] [address] Performed By: #### 5 8410-2 ####[facility]ATORYCLIA [id number] [address] [place] CONSULT PROGon 12-06-2024 CONSULT PROG Normal [facility] Calcium.ionized [Moles/Vol]o n 12-06-2024 Calcium.ionized (BldV) [Mass/Vol] 1.20 mmol/L Normal 1.08-1.30 [facility] Comment on above: Order Comment: Speci men Type: BLOOD SPECIMENOrdering Facility: [facility] Address: [address] [place] [address] Performed By: #### 1 995-0 ####[facility]ATORYCLIA [id number] [address] Calcium.ionized adjusted to pH 7.4 (Bld) [Moles/Vol] 1.18 mmol/L Normal 1.08-1.30 [facility] Comment on above: Order Comment: Speci men Type: BLOOD SPECIMENOrdering Facility: [facility] Address: [address] [place] [address] Performed By: #### 1 995-0 ####[facility]ATORYCLIA [id number] [address] [place] Gas and Carbon monoxide pane l (BldV)on 12-06-2024 BASE DEFICIT, VENOUS -5 mmol/L Low -2-0 [facility] Comment on above: Order Comment: Speci men Type: VENOUS BLOOD SPECIMENOrdering Facility: [facility] Address: [address] [place] [address] Performed By: #### 2 4344-4 ####[facility]ATORYCLIA [id number] [place] [address] [place] Body temperature 98.78 [degF] Normal [facility] Comment on above: Order Comment: Speci men Type: VENOUS BLOOD SPECIMENOrdering Facility: [facility] Address: [address] [place] [address] Performed By: #### 2 4344-4 ####[facility]ORYCLIA [id number] [address] OF [place] Calcium.ionized (BldV) [Mass/Vol] 1.11 mmol/L Normal 1.08-1.30 [facility] Comment on above: Order Comment: Speci men Type: VENOUS BLOOD SPECIMENOrdering Facility: [facility] Address: [address] [place] [address] Performed By: #### 2 4344-4 ####[facility]ORYCLIA [id number] [address] STATES OF [facility] Calcium.ionized adjusted to pH 7.4 (BldA) [Moles/Vol] 1.08 mmol/L Normal 1.08-1.30 [facility] Comment on above: Order Comment: Speci men Type: VENOUS BLOOD SPECIMENOrdering Facility: [facility] Address: [address] [place] [address] Performed By: #### 2 4344-4 ####[facility]ORYCLIA [id number] [address] [place] Carboxyhemoglobin (BldV) [Mass fraction] 1.9 % Normal 0.0-2.0 [facility] Comment on above: Order Comment: Speci men Type: VENOUS BLOOD SPECIMENOrdering Facility: [facility] Address: [address] [place] [address] Result Comment: Carb oxyhemoglobin Reference Range for Smokers: 2.0-8.0% Performed By: #### 2 4344-4 ####[facility]ORYCLIA [id number] [address] [place] Chloride [Moles/Vol] 115 mmol/L High 97-105 [facility] Comment on above: Order Comment: Speci men Type: VENOUS BLOOD SPECIMENOrdering Facility: [facility] Address: [address] [place] [address] Performed By: #### 2 4344-4 ####[facility]ORYCL[facility] [id number] [address] OF [place] CO2 (BldV) [Partial pressure] 38 mm[Hg] Low 42-55 [facility] Comment on above: Order Comment: Speci men Type: VENOUS BLOOD SPECIMENOrdering Facility: [facility] Address: [address] [place] [address] Performed By: #### 2 4344-4 ####[facility] LABORATORYCLIA [id number] [address] [place] CO2 adjusted to patient's actual temperature (BldV) [Partial pressure] 38 mmHg Low 42-55 [facility] Comment on above: Order Comment: Speci men Type: VENOUS BLOOD SPECIMENOrdering Facility: [facility] Address: [address] [place] [address] Performed By: #### 2 4344-4 ####[facility] LABORATORYCLIA [id number] [place] Glucose [Mass/Vol] 335 mg/dL High 60-105 [facility] Comment on above: Order Comment: Speci men Type: VENOUS BLOOD SPECIMENOrdering Facility: [facility] Address: [address] [place] [address] Performed By: #### 2 4344-4 ####[facility]ATORYCLIA [id number] [address] [place] HCO3 (Bld) [Moles/Vol] 20 mmol/L Low 24-28 [facility] Comment on above: Order Comment: Speci men Type: VENOUS BLOOD SPECIMENOrdering Facility: [facility] Address: [address] [place] [address] Performed By: #### 2 4344-4 ####[facility]ATORYCLIA [id number] [address] [place] Hematocrit (Bld) [Volume fraction] 29.2 % Low 39.0-51.0 [facility] Comment on above: Order Comment: Speci men Type: VENOUS BLOOD SPECIMENOrdering Facility: [facility] Address: [address] [place] [address] Performed By: #### 2 4344-4 ####[facility]ATORYCLIA [id number] [address] [place] Hemoglobin (Bld) [Mass/Vol] 9.4 g/dL Low 13.0-17.0 [facility] Comment on above: Order Comment: Speci men Type: VENOUS BLOOD SPECIMENOrdering Facility: [facility] Address: [address] [place] [address] Performed By: #### 2 4344-4 ####[facility]ATORYCLIA [id number] [address] Lactate [Moles/Vol] 1.1 mmol/L Normal 0.5-2.2 [facility] Comment on above: Order Comment: Speci men Type: VENOUS BLOOD SPECIMENOrdering Facility: [facility] Address: [address] [place] [address] Performed By: #### 2 4344-4 ####[facility]ATORYCLIA [id number] [address] LITERS 4 Liters/min Normal [facility] Comment on above: Order Comment: Speci men Type: VENOUS BLOOD SPECIMENOrdering Facility: [facility] Address: [address] [place] [address] Performed By: #### 2 4344-4 ####[facility]ATORYCLIA [id number] [address] [place] Methemoglobin (Bld) [Mass fraction] 0.7 % Normal 0.0-1.5 [facility] Comment on above: Order Comment: Speci men Type: VENOUS BLOOD SPECIMENOrdering Facility: [facility] Address: [address] [place] [address] Performed By: #### 2 4344-4 ####[facility]ATORYCLIA [id number] [address] [place] O2 THERAPY NC = Nasal Cannula Normal [facility] Comment on above: Order Comment: Speci men Type: VENOUS BLOOD SPECIMENOrdering Facility: [facility] Address: [address] [place] [address] Performed By: #### 2 4344-4 ####[facility]ATORYCLIA [id number] [place], [place] [id number] [place] [address] [place] Oxygen (BldV) [Partial pressure] 87 mm[Hg] High 35-45 [facility] Comment on above: Order Comment: Speci men Type: VENOUS BLOOD SPECIMENOrdering Facility: [facility] Address: [address] [place] [address] Performed By: #### 2 4344-4 ####[facility]ATORYCLIA [id number] [address] Oxygen adjusted to patient's actual temperature (BldV) [Partial pressure] 88 mmHg High 35-45 [facility] Comment on above: Order Comment: Speci men Type: VENOUS BLOOD SPECIMENOrdering Facility: [facility] Address: [address] [place] [address] Performed By: #### 2 4344-4 ####[facility]ORYCLIA [id number] [address] Oxygen saturation in Venous blood 95 % High 60-85 [facility] Comment on above: Order Comment: Speci men Type: VENOUS BLOOD SPECIMENOrdering Facility: [facility] Address: [address] [place] [address] Performed By: #### 2 4344-4 ####[facility]ORATORYCLIA [id number] [place] [address] [facility] [place] Oxyhemoglobin (BldV) [Mass fraction] 93 % High 60-85 [facility] Comment on above: Order Comment: Speci men Type: VENOUS BLOOD SPECIMENOrdering Facility: [facility] Address: [address] [place] [id number] Performed By: #### 2 4344-4 ####[facility]ORATORYCLIA [id number] [place], [place] [address] [place] [address] [place] pH (BldV) 7.34 [pH] Normal 7.32-7.42 [facility] Comment on above: Order Comment: Speci men Type: VENOUS BLOOD SPECIMENOrdering Facility: [facility] Address: [address] [place] [address] Performed By: #### 2 4344-4 ####[facility]ATORYCLIA [id number] [address] [place] pH adjusted to patient's actual temperature (BldV) 7.34 Normal 7.32-7.42 [facility] Comment on above: Order Comment: Speci men Type: VENOUS BLOOD SPECIMENOrdering Facility: [facility] Address: [address] [place] [address] Performed By: #### 2 4344-4 ####[facility]ATORYCLIA [id number] [place] [address] [place] Potassium [Moles/Vol] 3.1 mmol/L Low 3.5-5.0 [facility] Comment on above: Order Comment: Speci men Type: VENOUS BLOOD SPECIMENOrdering Facility: [facility] Address: [address] [place] [address] Performed By: #### 2 4344-4 ####[facility]ATORYCLIA [id number] [place] [address] [place] Sodium [Moles/Vol] 140 mmol/L Normal 136-144 [facility] Comment on above: Order Comment: Speci men Type: VENOUS BLOOD SPECIMENOrdering Facility: [facility] Address: [address] [place] [address] Performed By: #### 2 4344-4 ####[facility]ATORYCLIA [id number] [place] [address] [place] Magnesium SerPl-mCncon 12-06 Magnesium [Mass/Vol] 2.3 mg/dL Normal 1.7-2.3 [facility] Comment on above: Order Comment: Speci men Type: BLOOD SPECIMENOrdering Facility: [facility] Address: [address] [place] [address] Performed By: #### 1 9123-9, 2777-1, 26554-9 ####[facility]ORYCLIA [id number] [place] [address] [place] NURSING PROGon 12-06-2024 NURSING PROG Normal [facility] NUTRITIONon 12-06-2024 NUTRITION Normal [facility] Phosphate SerPl-mCncon 12-06 Phosphate [Mass/Vol] 3.7 mg/dL Normal 2.7-4.8 [facility] Comment on above: Order Comment: Speci men Type: BLOOD SPECIMENOrdering Facility: [facility] Address: [address] [place] [address] Performed By: #### 1 9123-9, 2777-, 67041-7 ####[facility]ATORYCLIA [id number] [address] [place] XR CHEST 1V FRONTALon 2024 XR CHEST 1V FRONTAL Normal [facility] ARTERIAL BLOOD GASESon 12-05 Base deficit (BldA) [Moles/Vol] -9 mmol/L Low -2-0 [facility] Comment on above: Order Comment: Speci men Type: ARTERIAL BLOOD SPECIMENOrdering Facility: [facility] Address: [address] [place] [address] Performed By: #### A LLBG ####[facility]ATORYCLIA [id number] [address] [place] Body temperature 98.6 [degF] Normal [facility] Comment on above: Order Comment: Speci men Type: ARTERIAL BLOOD SPECIMENOrdering Facility: [facility] Address: [address] [place] [address] Performed By: #### A LLBG ####[facility]ATORYCLIA [id number] [address] [place] Calcium.ionized (BldV) [Mass/Vol] 1.29 mmol/L Normal 1.08-1.30 [facility] Comment on above: Order Comment: Speci men Type: ARTERIAL BLOOD SPECIMENOrdering Facility: [facility] Address: [address] [place] [address] Performed By: #### A LLBG ####[facility]ATORYCLIA [id number] [place] [address] [place] Calcium.ionized adjusted to pH 7.4 (BldA) [Moles/Vol] 1.21 mmol/L Normal 1.08-1.30 [facility] Comment on above: Order Comment: Speci men Type: ARTERIAL BLOOD SPECIMENOrdering Facility: [facility] Address: [address] [place] [address] Performed By: #### A LLBG ####[facility]ATORYCLIA [id number] [address] [place] Carboxyhemoglobin (BldA) [Mass fraction] 1.0 % Normal 0.0-2.0 [facility] Comment on above: Order Comment: Speci men Type: ARTERIAL BLOOD SPECIMENOrdering Facility: [facility] Address: [address] [place] [address] Result Comment: Carb oxyhemoglobin Reference Range for Smokers: 2.0-8.0% Performed By: #### A LLBG ####[facility]ORYCLIA [id number] [place] [address] [place] Chloride [Moles/Vol] 113 mmol/L High 97-105 [facility] Comment on above: Order Comment: Speci men Type: ARTERIAL BLOOD SPECIMENOrdering Facility: [facility] Address: [address] [place] [address] Performed By: #### A LLBG ####[facility]ATORYCLIA [id number] [address] [place] CO2 (Bld) [Partial pressure] 35 mm Hg Low 36-46 [facility] Comment on above: Order Comment: Speci men Type: ARTERIAL BLOOD SPECIMENOrdering Facility: [facility] Address: [address] [place] [address] Performed By: #### A LLBG ####[facility]ATORYCLIA [id number] [place] [address] [place] Glucose [Mass/Vol] 180 mg/dL High 60-105 [facility] Comment on above: Order Comment: Speci men Type: ARTERIAL BLOOD SPECIMENOrdering Facility: [facility] Address: [address] [place] [address] Performed By: #### A LLBG ####[facility]ATORYCLIA [id number] [address] [place] HCO3 (Bld) [Moles/Vol] 16 mmol/L Low 22-26 [facility] Comment on above: Order Comment: Speci men Type: ARTERIAL BLOOD SPECIMENOrdering Facility: [facility] Address: [address] [place] [address] Performed By: #### A LLBG ####[facility]ORYCLIA [id number] [address] [place] Hematocrit (Bld) [Volume fraction] 38.8 % Low 39.0-51.0 [facility] Comment on above: Order Comment: Speci men Type: ARTERIAL BLOOD SPECIMENOrdering Facility: [facility] Address: [address] [place] [address] Performed By: #### A LLBG ####[facility]ORYCLIA [id number] [address] [place] Hemoglobin (Bld) [Mass/Vol] 12.6 g/dL Low 13.0-17.0 [facility] Comment on above: Order Comment: Speci men Type: ARTERIAL BLOOD SPECIMENOrdering Facility: [facility] Address: [address] [place] [address] Performed By: #### A LLBG ####[facility]ORYCLIA [id number] [address] [place] Lactate [Moles/Vol] 1.1 mmol/L Normal 0.5-2.2 [facility] Comment on above: Order Comment: Speci men Type: ARTERIAL BLOOD SPECIMENOrdering Facility: [facility] Address: [address] [place] [address] Performed By: #### A LLBG ####[facility]ATORYCLIA [id number] [address] [place] LITERS 6 Liters/min Normal [facility] Comment on above: Order Comment: Speci men Type: ARTERIAL BLOOD SPECIMENOrdering Facility: [facility] Address: [address] [place] [address] Performed By: #### A LLBG ####[facility]ORYCLIA [id number] [address] [place] Methemoglobin (Bld) [Mass fraction] 0.7 % Normal 0.0-1.5 [facility] Comment on above: Order Comment: Speci men Type: ARTERIAL BLOOD SPECIMENOrdering Facility: [facility] Address: [address] [place] [address] Performed By: #### A LLBG ####[facility]ATORYCLIA [id number] [address] O2 THERAPY NC = Nasal Cannula Normal [facility] Comment on above: Order Comment: Speci men Type: ARTERIAL BLOOD SPECIMENOrdering Facility: [facility] Address: [address] [place] [address] Performed By: #### A LLBG ####[facility]ORYCLIA [id number] [address] [place] Oxygen (Bld) [Partial pressure] 76 mm Hg Low 85-95 [facility] Comment on above: Order Comment: Speci men Type: ARTERIAL BLOOD SPECIMENOrdering Facility: [facility] Address: [address] [place] [address] Performed By: #### A LLBG ####[facility]ORYCLIA [id number] [address] [place] Oxyhemoglobin (BldA) [Mass fraction] 91 % Low 95-98 [facility] Comment on above: Order Comment: Speci men Type: ARTERIAL BLOOD SPECIMENOrdering Facility: [facility] Address: [address] [place] [address] Performed By: #### A LLBG ####[facility]ATORYCLIA [id number] [place] [address] [place] pH (Bld) 7.29 [pH] Low 7.35-7.45 [facility] Comment on above: Order Comment: Speci men Type: ARTERIAL BLOOD SPECIMENOrdering Facility: [facility] Address: [address] [place] [address] Performed By: #### A LLBG ####[facility]ORYCLIA [id number] [place] [address] [place] Potassium [Moles/Vol] 4.1 mmol/L Normal 3.5-5.0 [facility] Comment on above: Order Comment: Speci men Type: ARTERIAL BLOOD SPECIMENOrdering Facility: [facility] Address: [address] [place] [address] Performed By: #### A LLBG ####[facility]ORYCLIA [id number] [place] [address] [place] Sodium [Moles/Vol] 136 mmol/L Normal 136-144 [facility] Comment on above: Order Comment: Speci men Type: ARTERIAL BLOOD SPECIMENOrdering Facility: [facility] Address: [address] [place] [address] Performed By: #### A LLBG ####[facility]ORYCLIA [id number] [address] [place] Base deficit (BldA) [Moles/Vol] -8 mmol/L Low -2-0 [facility] Comment on above: Order Comment: Speci men Type: ARTERIAL BLOOD SPECIMENOrdering Facility: [facility] Address: [address] [place] [address] Performed By: #### A LLBG ####[facility]ORYCLIA [id number] [address] [place] Body temperature 98.78 [degF] Normal [facility] Comment on above: Order Comment: Speci men Type: ARTERIAL BLOOD SPECIMENOrdering Facility: [facility] Address: [address] [place] [address] Performed By: #### A LLBG ####[facility]ORYCLIA [id number] [address] [place] Calcium.ionized (BldV) [Mass/Vol] 1.16 mmol/L Normal 1.08-1.30 [facility] Comment on above: Order Comment: Speci men Type: ARTERIAL BLOOD SPECIMENOrdering Facility: [facility] Address: [address] [place] [address] Performed By: #### A LLBG ####[facility]ORYCLIA [id number] [address] [place] Calcium.ionized adjusted to pH 7.4 (BldA) [Moles/Vol] 1.12 mmol/L Normal 1.08-1.30 [facility] Comment on above: Order Comment: Speci men Type: ARTERIAL BLOOD SPECIMENOrdering Facility: [facility] Address: [address] [place] [address] Performed By: #### A LLBG ####[facility]ATORYCLIA [id number] [address] OF [facility] Carboxyhemoglobin (BldA) [Mass fraction] 1.0 % Normal 0.0-2.0 [facility] Comment on above: Order Comment: Speci men Type: ARTERIAL BLOOD SPECIMENOrdering Facility: [facility] Address: [address] [place] [address] Result Comment: Carb oxyhemoglobin Reference Range for Smokers: 2.0-8.0% Performed By: #### A LLBG ####[facility]ORYCLIA [id number] [address] [place] Chloride [Moles/Vol] 113 mmol/L High 97-105 [facility] Comment on above: Order Comment: Speci men Type: ARTERIAL BLOOD SPECIMENOrdering Facility: [facility] Address: [address] [place] [address] Performed By: #### A LLBG ####[facility]ORYCLIA [id number] [address] [place] CO2 (Bld) [Partial pressure] 32 mm Hg Low 36-46 [facility] Comment on above: Order Comment: Speci men Type: ARTERIAL BLOOD SPECIMENOrdering Facility: [facility] Address: [address] [place] [address] Performed By: #### A LLBG ####[facility]ORYCLIA [id number] [address] [place] CO2 adjusted to patient's actual temperature (Bld) [Partial pressure] 32 mmHg Low 36-46 [facility] Comment on above: Order Comment: Speci men Type: ARTERIAL BLOOD SPECIMENOrdering Facility: [facility] Address: [address] [place] [address] Performed By: #### A LLBG ####[facility]ORYCLIA [id number] [address] [place] Glucose [Mass/Vol] 173 mg/dL High 60-105 [facility] Comment on above: Order Comment: Speci men Type: ARTERIAL BLOOD SPECIMENOrdering Facility: [facility] Address: [address] [place] [address] Performed By: #### A LLBG ####[facility]ORYCLIA [id number] [address] [place] HCO3 (Bld) [Moles/Vol] 16 mmol/L Low 22-26 [facility] Comment on above: Order Comment: Speci men Type: ARTERIAL BLOOD SPECIMENOrdering Facility: [facility] Address: [address] [place] [address] Performed By: #### A LLBG ####[facility]ATORYCLIA [id number] [address] [place] Hematocrit (Bld) [Volume fraction] 38.0 % Low 39.0-51.0 [facility] Comment on above: Order Comment: Speci men Type: ARTERIAL BLOOD SPECIMENOrdering Facility: [facility] Address: [address] [place] [address] Performed By: #### A LLBG ####[facility]ATORYCLIA [id number] [address] [place] Hemoglobin (Bld) [Mass/Vol] 12.4 g/dL Low 13.0-17.0 [facility] Comment on above: Order Comment: Speci men Type: ARTERIAL BLOOD SPECIMENOrdering Facility: [facility] Address: [address] [place] [address] Performed By: #### A LLBG ####[facility] [facility]ATORYCLIA [id number] [address] [place] Lactate [Moles/Vol] 0.9 mmol/L Normal 0.5-2.2 [facility] Comment on above: Order Comment: Speci men Type: ARTERIAL BLOOD SPECIMENOrdering Facility: [facility] Address: [address] [place] [address] Performed By: #### A LLBG ####[facility]ATORYCLIA [id number] [address] [place] Order Comment: Speci men Type: BLOOD SPECIMENOrdering Facility: [facility] Address: [address] [place] [address] Performed By: #### 3 2693-4 ####[facility]ORYCLIA [id number] [address] [place] LITERS 3 Liters/min Normal [facility] Comment on above: Order Comment: Speci men Type: ARTERIAL BLOOD SPECIMENOrdering Facility: [facility] Address: [address] [place] [address] Performed By: #### A LLBG ####[facility]ATORYCLIA [id number] [address] [place] Methemoglobin (Bld) [Mass fraction] 0.8 % Normal 0.0-1.5 [facility] Comment on above: Order Comment: Speci men Type: ARTERIAL BLOOD SPECIMENOrdering Facility: [facility] Address: [address] [place] [address] Performed By: #### A LLBG ####[facility]ORYCLIA [id number] [address] [place] O2 THERAPY NC = Nasal Cannula Normal [facility] Comment on above: Order Comment: Speci men Type: ARTERIAL BLOOD SPECIMENOrdering Facility: [facility] Address: [address] [place] [address] Performed By: #### A LLBG ####[facility]ATORYCLIA [id number] [address] [place] Oxygen (Bld) [Partial pressure] 90 mm Hg Normal 85-95 [facility] Comment on above: Order Comment: Speci men Type: ARTERIAL BLOOD SPECIMENOrdering Facility: [facility] Address: [address] [place] [address] Performed By: #### A LLBG ####[facility]ATORYCLIA [id number] [address] Oxygen adjusted to patient's actual temperature (Bld) [Partial pressure] 90 mmHg Normal 85-95 [facility] Comment on above: Order Comment: Speci men Type: ARTERIAL BLOOD SPECIMENOrdering Facility: [facility] Address: [address] [place] [address] Performed By: #### A LLBG ####[facility]ORYCLIA [id number] [address] [place] Oxyhemoglobin (BldA) [Mass fraction] 94 % Low 95-98 [facility] Comment on above: Order Comment: Speci men Type: ARTERIAL BLOOD SPECIMENOrdering Facility: [facility] Address: [address] [place] [address] Performed By: #### A LLBG ####[facility]ORYCLIA [id number] [address] [place] pH (Bld) 7.34 [pH] Low 7.35-7.45 [facility] Comment on above: Order Comment: Speci men Type: ARTERIAL BLOOD SPECIMENOrdering Facility: [facility] Address: [address] [place] [address] Performed By: #### A LLBG ####[facility]ATORYCLIA [id number] [address] [place] pH adjusted to patient's actual temperature (Bld) 7.34 Low 7.35-7.45 [facility] Comment on above: Order Comment: Speci men Type: ARTERIAL BLOOD SPECIMENOrdering Facility: [facility] Address: [address] [place] [address] Performed By: #### A LLBG ####[facility] LABORATORYCLIA [id number] [address] [place] Potassium [Moles/Vol] 3.9 mmol/L Normal 3.5-5.0 [facility] Comment on above: Order Comment: Speci men Type: ARTERIAL BLOOD SPECIMENOrdering Facility: [facility] Address: [address] [place] [address] Performed By: #### A LLBG ####[facility]ATORYCLIA [id number] [address] [place] Sodium [Moles/Vol] 136 mmol/L Normal 136-144 [facility] Comment on above: Order Comment: Speci men Type: ARTERIAL BLOOD SPECIMENOrdering Facility: [facility] Address: [address] [place] [address] Performed By: #### A LLBG ####[facility] LABORATORYCLIA [id number] [place] [address] [place] Basic metabolic 2000 panelon 12-05-2024 Anion gap [Moles/Vol] 17 mmol/L High 8-15 [facility] Comment on above: Order Comment: Speci men Type: BLOOD SPECIMENOrdering Facility: [facility] Address: [address] [place] [address] Performed By: #### 1 9123-9, 69468-2 ####[facility]ATORYCLIA [id number] [place] [address] [place] Calcium [Mass/Vol] 8.4 mg/dL Low 8.5-10.2 [facility] Comment on above: Order Comment: Speci men Type: BLOOD SPECIMENOrdering Facility: [facility] Address: [address] [place] [address] Performed By: #### 1 9123-9, 21290-4 ####[facility]ORATORYCLIA [id number] [address] [place] Chloride [Moles/Vol] 106 mmol/L Normal 98-107 [facility] Comment on above: Order Comment: Speci men Type: BLOOD SPECIMENOrdering Facility: [facility] Address: [address] [place] [address] Performed By: #### 1 9123-9, 20922-0 ####[facility]ATORYCLIA [id number] [address] OF [facility] CO2 [Moles/Vol] 15 mmol/L Low 22-30 [facility] Comment on above: Order Comment: Speci men Type: BLOOD SPECIMENOrdering Facility: [facility] Address: [address] [place] [address] Performed By: #### 1 9123-9, 77074-1 ####[facility]ATORYCLIA [id number] [address] OF [facility] Creatinine [Mass/Vol] 2.34 mg/dL High 0.73-1.22 [facility] Comment on above: Order Comment: Speci men Type: BLOOD SPECIMENOrdering Facility: [facility] Address: [address] [place] [address] Performed By: #### 1 9123-9, 73011-3 ####[facility]ATORYCLIA [id number] [address] Creatinine and Glomerular filtration rate.predicted panel (S/P/Bld) 28 mL/min/1.73m??? Low >=60 [facility] Comment on above: Order Comment: Speci men Type: BLOOD SPECIMENOrdering Facility: [facility] Address: [address] [place] [address] Result Comment: Eli mated Glomerular Filtration Rate (eGFR) is calculated using the 2020 CKD-EPI creatinine equation. This equation utilizes serum creatinine, sex, and age as parameters. The creatinine assay has traceable calibration to isotope dilution-mass spectrometry. Refer to KDIGO guidelines for clinical interpretation. In patients with unstable renal function, e.g. those with acute kidney injury, the eGFR may not accurately reflect actual GFR. Performed By: #### 1 9123-9, 59519-2 ####[facility]ATORYCLIA [id number] [place] [address] [place] Glucose [Mass/Vol] 174 mg/dL High 74-99 [facility] Comment on above: Order Comment: Speci men Type: BLOOD SPECIMENOrdering Facility: [facility] Address: [address] [place] [address] Result Comment: The [place] Diabetes [employer] (ADA) provides guidance for cutoff values for fasting glucose and random glucose. The ADA defines fasting as no caloric intake for at least 8 hours. Fasting plasma glucose results between 100 to 125 mg/dL indicate increased risk for diabetes (prediabetes).Fasting plasma glucose results greater than or equal to 126 mg/dL meet the criteria for diagnosis of diabetes. In the absence of unequivocal hyperglycemia, results should be confirmed by repeat testing. In a patient with classic symptoms of hyperglycemia or hyperglycemic crisis, random plasma glucose results greater than or equal to 200 mg/dL meet the criteria for diagnosis of diabetes.Reference: Standards of Medical Care in Diabetes 2016, [place] [employer]. Diabetes Care. 2016.39(Suppl 1). Performed By: #### 1 9123-9, 18437-7 ####[facility]ATORYCLIA [id number] [place] [address] [place] Potassium [Moles/Vol] 4.3 mmol/L Normal 3.7-5.1 [facility] Comment on above: Order Comment: Speci men Type: BLOOD SPECIMENOrdering Facility: [facility] Address: [address] [place] [address] Performed By: #### 1 91239, 90816-8 ####[facility]ATORYCLIA [id number] [place] [id number] [place] Sodium [Moles/Vol] 138 mmol/L Normal 136-144 [facility] Comment on above: Order Comment: Speci men Type: BLOOD SPECIMENOrdering Facility: [facility] Address: [address] [place] [address] Performed By: #### 1 91239, 11011-5 ####[facility]ATORYCLIA [id number] [address] [place] Urea nitrogen [Mass/Vol] 53 mg/dL High 9-24 [facility] Comment on above: Order Comment: Speci men Type: BLOOD SPECIMENOrdering Facility: [facility] Address: [address] [place] [address] Performed By: #### 1 9123-9, 69929-7 ####[facility]ATORYCLIA [id number] [address] OF [facility] CASE MANAGEMon 12-05-2024 CASE MANAGEM Normal [facility] CBC panel Auto (Bld)on 12-05 Erythrocyte distribution width (RBC) [Ratio] 13.4 % Normal 11.5-15.0 [facility] Comment on above: Order Comment: Speci men Type: BLOOD SPECIMENOrdering Facility: [facility] Address: [address] [place] [address] Performed By: #### 5 8410-2 ####[facility]ATORYCLIA [id number] [address] STATES OF [facility] Hematocrit (Bld) [Volume fraction] 36.6 % Low 39.0-51.0 [facility] Comment on above: Order Comment: Speci men Type: BLOOD SPECIMENOrdering Facility: [facility] Address: [address] [place] [address] Performed By: #### 5 8410-2 ####[facility]ATORYCLIA [id number] [address] [place] Hemoglobin (Bld) [Mass/Vol] 12.2 g/dL Low 13.0-17.0 [facility] Comment on above: Order Comment: Speci men Type: BLOOD SPECIMENOrdering Facility: [facility] Address: [address] [place] [address] Performed By: #### 5 8410-2 ####[facility]ATORYCLIA [id number] [address] [place] MCH (RBC) [Entitic mass] 30.3 pg Normal 26.0-34.0 [facility] Comment on above: Order Comment: Speci men Type: BLOOD SPECIMENOrdering Facility: [facility] Address: [address] [place] [address] Performed By: #### 5 8410-2 ####[facility]ATORYCLIA [id number] [address] MCHC (RBC) [Mass/Vol] 33.3 g/dL Normal 30.5-36.0 [facility] Comment on above: Order Comment: Speci men Type: BLOOD SPECIMENOrdering Facility: [facility] Address: [address] [place] [address] Performed By: #### 5 8410-2 ####[facility]ATORYCLIA [id number] [address] [place] MCV (RBC) [Entitic vol] 91.0 fL Normal 80.0-100.0 [facility] Comment on above: Order Comment: Speci men Type: BLOOD SPECIMENOrdering Facility: [facility] Address: [address] [place] [address] Performed By: #### 5 8410-2 ####[facility]ATORYCLIA [id number] [address] Nucleated RBC (Bld) [#/Vol] 10*3/uL Normal <0.01 [facility] Comment on above: Order Comment: Speci men Type: BLOOD SPECIMENOrdering Facility: [facility] Address: [address] [place] [address] Performed By: #### 5 8410-2 ####[facility]ATORYCLIA [id number] [address] Platelet mean volume (Bld) [Entitic vol] 10.4 fL Normal 9.0-12.7 [facility] Comment on above: Order Comment: Speci men Type: BLOOD SPECIMENOrdering Facility: [facility] Address: [address] [place] [address] Performed By: #### 5 8410-2 ####[facility]ATORYCLIA [id number] [place], [place] [address] [place] [address] [place] Platelets (Bld) [#/Vol] 432 10*3/uL High 150-400 [facility] Comment on above: Order Comment: Speci men Type: BLOOD SPECIMENOrdering Facility: [facility] Address: [address] [place] [address] Performed By: #### 5 8410-2 ####[facility]ATORYCLIA [id number] [place] [address] [place] RBC (Bld) [#/Vol] 4.02 10*6/uL Low 4.20-6.00 [facility] Comment on above: Order Comment: Speci men Type: BLOOD SPECIMENOrdering Facility: [facility] Address: [address] [place] [address] Performed By: #### 5 8410-2 ####[facility]ORYCLIA [id number] [address] [place] WBC (Bld) [#/Vol] 16.82 10*3/uL High 3.70-11.00 [facility] Comment on above: Order Comment: Speci men Type: BLOOD SPECIMENOrdering Facility: [facility] Address: [address] [place] [address] Performed By: #### 5 8410-2 ####[facility]ATORYCLIA [id number] [address] OF [facility] CONSULT PROGon 12-05-2024 CONSULT PROG Normal [facility] CONSULT PROG Normal [facility] Calcium.ionized [Moles/Vol]o n 12-05-2024 Calcium.ionized (BldV) [Mass/Vol] 1.12 mmol/L Normal 1.08-1.30 [facility] Comment on above: Order Comment: Speci men Type: BLOOD SPECIMENOrdering Facility: [facility] Address: [address] [place] [address] Performed By: #### 1 995-0 ####[facility]ATORYCLIA [id number] [address] OF [place] Calcium.ionized adjusted to pH 7.4 (Bld) [Moles/Vol] 1.06 mmol/L Low 1.08-1.30 [facility] Comment on above: Order Comment: Speci men Type: BLOOD SPECIMENOrdering Facility: [facility] Address: [address] [place] [address] Performed By: #### 1 995-0 ####[facility]ATORYCLIA [id number] [address] OF [place] ECG COMPLETEon 12-05-2024 ECG COMPLETE Normal [facility] Magnesium [facility] 12-05 Magnesium [Mass/Vol] 2.1 mg/dL Normal 1.7-2.3 [facility] Comment on above: Order Comment: Speci men Type: BLOOD SPECIMENOrdering Facility: [facility] Address: [address] [place] [address] Performed By: #### 1 9123-9, 82137-4 ####[facility]ATORYCLIA [id number] [address] [place] NUTRITIONon 12-05-2024 NUTRITION Normal [facility]ate [facility]05 Phosphate [Mass/Vol] 5.3 mg/dL High 2.7-4.8 [facility] Comment on above: Order Comment: Speci men Type: BLOOD SPECIMENOrdering Facility: [facility] Address: [address] [place] [address] Performed By: #### 2 777-1 ####[facility]ATORYCLIA [id number] [address] OF [place] XR ABDOMEN 1V SUPINEon 12-05 XR ABDOMEN 1V SUPINE Normal [facility] XR ABDOMEN 1V SUPINE Normal [facility] XR CHEST 1V FRONTALon 2024 XR CHEST 1V FRONTAL Normal [facility] XR CHEST 1V FRONTAL Normal [facility] XR CHEST 1V FRONTAL Normal [facility] ANES POSTPROC EVALon 025 ANES POSTPROC EVAL Normal [facility] ANES PRE-OPon 12-04-2024 ANES PRE-OP Normal [facility] ARTERIAL BLOOD GASESon 12-04 Base deficit (BldA) [Moles/Vol] -7 mmol/L Low -2-0 [facility] Comment on above: Order Comment: Speci men Type: ARTERIAL BLOOD SPECIMENOrdering Facility: [facility] Address: [address] [place] [address] Performed By: #### A LLBG ####[facility]ATORYCLIA [id number] [address] [place] Body temperature 97.16 [degF] Normal [facility] Comment on above: Order Comment: Speci men Type: ARTERIAL BLOOD SPECIMENOrdering Facility: [facility] Address: [address] [place] [address] Performed By: #### A LLBG ####[facility]ATORYCLIA [id number] [address] [place] Calcium.ionized (BldV) [Mass/Vol] 1.17 mmol/L Normal 1.08-1.30 [facility] Comment on above: Order Comment: Speci men Type: ARTERIAL BLOOD SPECIMENOrdering Facility: [facility] Address: [address] [place] [address] Performed By: #### A LLBG ####[facility]ATORYCLIA [id number] [address] [place] Calcium.ionized adjusted to pH 7.4 (BldA) [Moles/Vol] 1.14 mmol/L Normal 1.08-1.30 [facility] Comment on above: Order Comment: Speci men Type: ARTERIAL BLOOD SPECIMENOrdering Facility: [facility] Address: [address] [place] [address] Performed By: #### A LLBG ####[facility]ATORYCLIA [id number] [address] [place] Carboxyhemoglobin (BldA) [Mass fraction] 1.5 % Normal 0.0-2.0 [facility] Comment on above: Order Comment: Speci men Type: ARTERIAL BLOOD SPECIMENOrdering Facility: [facility] Address: [address] [place] [address] Result Comment: Carb oxyhemoglobin Reference Range for Smokers: 2.0-8.0% Performed By: #### A LLBG ####[facility]ATORYCLIA [id number] [place] [address] [place] Chloride [Moles/Vol] 112 mmol/L High 97-105 [facility] Comment on above: Order Comment: Speci men Type: ARTERIAL BLOOD SPECIMENOrdering Facility: [facility] Address: [address] [place] [address] Performed By: #### A LLBG ####[facility]ATORYCLIA [id number] [address] CO2 (Bld) [Partial pressure] 31 mm Hg Low 36-46 [facility] Comment on above: Order Comment: Speci men Type: ARTERIAL BLOOD SPECIMENOrdering Facility: [facility] Address: [address] [place] [address] Performed By: #### A LLBG ####[facility]ATORYCLIA [id number] [address] CO2 adjusted to patient's actual temperature (Bld) [Partial pressure] 30 mmHg Low 36-46 [facility] Comment on above: Order Comment: Speci men Type: ARTERIAL BLOOD SPECIMENOrdering Facility: [facility] Address: [address] [place] [address] Performed By: #### A LLBG ####[facility]ATORYCLIA [id number] [place] [address] [place] Glucose [Mass/Vol] 169 mg/dL High 60-105 [facility] Comment on above: Order Comment: Speci men Type: ARTERIAL BLOOD SPECIMENOrdering Facility: [facility] Address: [address] [place] [address] Performed By: #### A LLBG ####[facility]ATORYCLIA [id number] [place] [address] [place] HCO3 (Bld) [Moles/Vol] 17 mmol/L Low 22-26 [facility] Comment on above: Order Comment: Speci men Type: ARTERIAL BLOOD SPECIMENOrdering Facility: [facility] Address: [address] [place] [address] Performed By: #### A LLBG ####[facility]ORATORYCLIA [id number] [address] [place] Hematocrit (Bld) [Volume fraction] 39.2 % Normal 39.0-51.0 [facility] Comment on above: Order Comment: Speci men Type: ARTERIAL BLOOD SPECIMENOrdering Facility: [facility] Address: [address] [place] [address] Performed By: #### A LLBG ####[facility]ORYCLIA [id number] [address] [place] Hemoglobin (Bld) [Mass/Vol] 12.7 g/dL Low 13.0-17.0 [facility] Comment on above: Order Comment: Speci men Type: ARTERIAL BLOOD SPECIMENOrdering Facility: [facility] Address: [address] [place] [address] Performed By: #### A LLBG ####[facility]ATORYCLIA [id number] [address] STATES [facility] Lactate [Moles/Vol] 0.9 mmol/L Normal 0.5-2.2 [facility] Comment on above: Order Comment: Speci men Type: ARTERIAL BLOOD SPECIMENOrdering Facility: [facility] Address: [address] [place] [address] Performed By: #### A LLBG ####[facility]ORYCLIA [id number] [address] [place] LITERS 4 Liters/min Normal [facility] Comment on above: Order Comment: Speci men Type: ARTERIAL BLOOD SPECIMENOrdering Facility: [facility] Address: [address] [place] [address] Performed By: #### A LLBG ####[facility]ORATORYCLIA [id number] [place] [address] Methemoglobin (Bld) [Mass fraction] 0.8 % Normal 0.0-1.5 [facility] Comment on above: Order Comment: Speci men Type: ARTERIAL BLOOD SPECIMENOrdering Facility: [facility] Address: [address] [place] [address] Performed By: #### A LLBG ####[facility]ATORYCLIA [id number] [address] O2 THERAPY NC = Nasal Cannula Normal [facility] Comment on above: Order Comment: Speci men Type: ARTERIAL BLOOD SPECIMENOrdering Facility: [facility] Address: [address] [place] [address] Performed By: #### A LLBG ####[facility]ATORYCLIA [id number] [address] [place] Oxygen (Bld) [Partial pressure] 95 mm Hg Normal 85-95 [facility] Comment on above: Order Comment: Speci men Type: ARTERIAL BLOOD SPECIMENOrdering Facility: [facility] Address: [address] [place] [address] Performed By: #### A LLBG ####[facility]ORYCLIA [id number] [address] Oxygen adjusted to patient's actual temperature (Bld) [Partial pressure] 91 mmHg Normal 85-95 [facility] Comment on above: Order Comment: Speci men Type: ARTERIAL BLOOD SPECIMENOrdering Facility: [facility] Address: [address] [place] [address] Performed By: #### A LLBG ####[facility]ATORYCLIA [id number] [address] [place] Oxyhemoglobin (BldA) [Mass fraction] 95 % Normal 95-98 [facility] Comment on above: Order Comment: Speci men Type: ARTERIAL BLOOD SPECIMENOrdering Facility: [facility] Address: [address] [place] [address] Performed By: #### A LLBG ####[facility]ATORYCLIA [id number] [address] [place] pH (Bld) 7.35 [pH] Normal 7.35-7.45 [facility] Comment on above: Order Comment: Speci men Type: ARTERIAL BLOOD SPECIMENOrdering Facility: [facility] Address: [address] [place] [address] Performed By: #### A LLBG ####[facility]ATORYCLIA [id number] [address] [place] pH adjusted to patient's actual temperature (Bld) 7.36 Normal 7.35-7.45 [facility] Comment on above: Order Comment: Speci men Type: ARTERIAL BLOOD SPECIMENOrdering Facility: [facility] Address: [address] [place] [address] Performed By: #### A LLBG ####[facility]ATORYCLIA [id number] [address] [place] Potassium [Moles/Vol] 3.9 mmol/L Normal 3.5-5.0 [facility] Comment on above: Order Comment: Speci men Type: ARTERIAL BLOOD SPECIMENOrdering Facility: [facility] Address: [address] [place] [address] Performed By: #### A LLBG ####[facility]ATORYCLIA [id number] [address] [place] Sodium [Moles/Vol] 136 mmol/L Normal 136-144 [facility] Comment on above: Order Comment: Speci men Type: ARTERIAL BLOOD SPECIMENOrdering Facility: [facility] Address: [address] [place] [address] Performed By: #### A LLBG ####[facility]ATORYCLIA [id number] [place] [address] [place] Basic metabolic 2000 panelon 12-04-2024 Anion gap [Moles/Vol] 14 mmol/L Normal 8-15 [facility] Comment on above: Order Comment: Speci men Type: BLOOD SPECIMENOrdering Facility: [facility] Address: [address] [place] [address] Performed By: #### 2 4321-2, , 2776-07 ####[facility]ATORYCLIA [id number] [place] [address] [place] Calcium [Mass/Vol] 7.6 mg/dL Low 8.5-10.2 [facility] Comment on above: Order Comment: Speci men Type: BLOOD SPECIMENOrdering Facility: [facility] Address: [address] [place] [address] Performed By: #### 2 4321-2, , 2776-07 ####[facility]ORYCLIA [id number] [place] [address] [place] Chloride [Moles/Vol] 110 mmol/L High 98-107 [facility] Comment on above: Order Comment: Speci men Type: BLOOD SPECIMENOrdering Facility: [facility] Address: [address] [place] [address] Performed By: #### 2 4321-2, , 2776-07 ####[facility]ORYCLIA [id number] [place] [address] [place] CO2 [Moles/Vol] 18 mmol/L Low 22-30 [facility] Comment on above: Order Comment: Speci men Type: BLOOD SPECIMENOrdering Facility: [facility] Address: [address] [place] [address] Performed By: #### 2 4321-2, , 2776-07 ####[facility]ORYCLIA [id number] [place] [address] [place] Creatinine [Mass/Vol] 2.37 mg/dL High 0.73-1.22 [facility] Comment on above: Order Comment: Speci men Type: BLOOD SPECIMENOrdering Facility: [facility] Address: [address] [place] [address] Performed By: #### 2 4321-2, , 2776-07 ####[facility]ATORYCLIA [id number] [place] [address] [place] Creatinine and Glomerular filtration rate.predicted panel (S/P/Bld) 27 mL/min/1.73m??? Low >=60 [facility] Comment on above: Order Comment: Stuart madrigal Type: BLOOD SPECIMENOrdering Facility: [facility] Address: [address] [place] [address] Result Comment: Eli mated Glomerular Filtration Rate (eGFR) is calculated using the 2020 CKD-EPI creatinine equation. This equation utilizes serum creatinine, sex, and age as parameters. The creatinine assay has traceable calibration to isotope dilution-mass spectrometry. Refer to KDIGO guidelines for clinical interpretation. In patients with unstable renal function, e.g. those with acute kidney injury, the eGFR may not accurately reflect actual GFR. Performed By: #### 2 4321-2, , 2776-07 ####[facility]ORYCLIA [id number] [place] [address] [place] Glucose [Mass/Vol] 73 mg/dL Low 74-99 [facility] Comment on above: Order Comment: Stuart madrigal Type: BLOOD SPECIMENOrdering Facility: [facility] Address: [address] [place] [address] Result Comment: The [place] [employer] (ADA) provides guidance for cutoff values for fasting glucose and random glucose. The ADA defines fasting as no caloric intake for at least 8 hours. Fasting plasma glucose results between 100 to 125 mg/dL indicate increased risk for diabetes (prediabetes).Fasting plasma glucose results greater than or equal to 126 mg/dL meet the criteria for diagnosis of diabetes. In the absence of unequivocal hyperglycemia, results should be confirmed by repeat testing. In a patient with classic symptoms of hyperglycemia or hyperglycemic crisis, random plasma glucose results greater than or equal to 200 mg/dL meet the criteria for diagnosis of diabetes.Reference: Standards of Medical Care in Diabetes 2016, [place] [employer]. Diabetes Care. 2016.39(Suppl 1). Performed By: #### 2 4321-2, , 2776-07 ####[facility]ORYCLIA [id number] [place] [address] [place] Potassium [Moles/Vol] 4.0 mmol/L Normal 3.7-5.1 [facility] Comment on above: Order Comment: Speci men Type: BLOOD SPECIMENOrdering Facility: [facility] Address: [address] [place] [address] Performed By: #### 2 4321-2, , 2776-07 ####[facility]ATORYCLIA [id number] [address] STATES OF [facility] Sodium [Moles/Vol] 142 mmol/L Normal 136-144 [facility] Comment on above: Order Comment: Speci men Type: BLOOD SPECIMENOrdering Facility: [facility] Address: [address] [place] [address] Performed By: #### 2 4321-2, , 2776-07 ####[facility]ORYCLIA [id number] [address] STATES OF [facility] Urea nitrogen [Mass/Vol] 54 mg/dL High 9-24 [facility] Comment on above: Order Comment: Speci men Type: BLOOD SPECIMENOrdering Facility: [facility] Address: [address] [place] [address] Performed By: #### 2 4321-2, , 2776-07 ####[facility]ORYCLIA [id number] [address] STATES OF [facility] CBC panel Auto (Bld)on 12-04 Erythrocyte distribution width (RBC) [Ratio] 12.2 % Normal 11.5-15.0 [facility] Comment on above: Order Comment: Speci men Type: BLOOD SPECIMENOrdering Facility: [facility] Address: [address] [place] [address] Performed By: #### 5 8410-2 ####[facility]ATORYCLIA [id number] [address] Hematocrit (Bld) [Volume fraction] 22.4 % Low 39.0-51.0 [facility] Comment on above: Order Comment: Speci men Type: BLOOD SPECIMENOrdering Facility: [facility] Address: [address] [place] [address] Performed By: #### 5 8410-2 ####[facility]ORYCLIA [id number] [address] Hemoglobin (Bld) [Mass/Vol] 7.4 g/dL Low 13.0-17.0 [facility] Comment on above: Order Comment: Speci men Type: BLOOD SPECIMENOrdering Facility: [facility] Address: [address] [place] [address] Performed By: #### 5 8410-2 ####[facility]ORYCLIA [id number] [address] MCH (RBC) [Entitic mass] 30.8 pg Normal 26.0-34.0 [facility] Comment on above: Order Comment: Speci men Type: BLOOD SPECIMENOrdering Facility: [facility] Address: [address] [place] [address] Performed By: #### 5 8410-2 ####[facility]ORYCLIA [id number] [address] MCHC (RBC) [Mass/Vol] 33.0 g/dL Normal 30.5-36.0 [facility] Comment on above: Order Comment: Speci men Type: BLOOD SPECIMENOrdering Facility: [facility] Address: [address] [place] [address] Performed By: #### 5 8410-2 ####[facility]ORYCLIA [id number] [address] MCV (RBC) [Entitic vol] 93.3 fL Normal 80.0-100.0 [facility] Comment on above: Order Comment: Speci men Type: BLOOD SPECIMENOrdering Facility: [facility] Address: [address] [place] [address] Performed By: #### 5 8410-2 ####[facility]ORYCLIA [id number] [address] Nucleated RBC (Bld) [#/Vol] 10*3/uL Normal <0.01 [facility] Comment on above: Order Comment: Speci men Type: BLOOD SPECIMENOrdering Facility: [facility] Address: [address] [place] [address] Performed By: #### 5 8410-2 ####[facility]ORYCLIA [id number] [address] [place] Platelet mean volume (Bld) [Entitic vol] 10.8 fL Normal 9.0-12.7 [facility] Comment on above: Order Comment: Speci men Type: BLOOD SPECIMENOrdering Facility: [facility] Address: [address] [place] [address] Performed By: #### 5 8410-2 ####[facility]ORYCLIA [id number] [address] [place] Platelets (Bld) [#/Vol] 322 10*3/uL Normal 150-400 [facility] Comment on above: Order Comment: Speci men Type: BLOOD SPECIMENOrdering Facility: [facility] Address: [address] [place] [address] Performed By: #### 5 8410-2 ####[facility]ATORYCLIA [id number] [place] [address] [place] RBC (Bld) [#/Vol] 2.40 10*6/uL Low 4.20-6.00 [facility] Comment on above: Order Comment: Speci men Type: BLOOD SPECIMENOrdering Facility: [facility] Address: [address] [place] [address] Performed By: #### 5 8410-2 ####[facility]ORYCLIA [id number] [address] [place] WBC (Bld) [#/Vol] 11.26 10*3/uL High 3.70-11.00 [facility] Comment on above: Order Comment: Speci men Type: BLOOD SPECIMENOrdering Facility: [facility] Address: [address] [place] [address] Performed By: #### 5 8410-2 ####[facility]ATORYCLIA [id number] [address] [place] CONSULTon 12-04-2024 CONSULT Normal [facility] CONSULT PROGon 12-04-2024 CONSULT PROG Normal [facility] Calcium.ionized [Moles/Vol]o n 12-04-2024 Calcium.ionized (BldV) [Mass/Vol] 1.13 mmol/L Normal 1.08-1.30 [facility] Comment on above: Order Comment: Speci men Type: BLOOD SPECIMENOrdering Facility: [facility] Address: [address] [place] [address] Performed By: #### 1 995-0 ####[facility]ATORYCLIA [id number] [address] OF [facility] Calcium.ionized adjusted to pH 7.4 (Bld) [Moles/Vol] 1.10 mmol/L Normal 1.08-1.30 [facility] Comment on above: Order Comment: Speci men Type: BLOOD SPECIMENOrdering Facility: [facility] Address: [address] [place] [address] Performed By: #### 1 995-0 ####[facility]ATORYCLIA [id number] [address] [place] ECG COMPLETEon 12-04-2024 ECG COMPLETE Normal [facility] ECG COMPLETE Normal [facility] HIGH SENSITIVITY TROPONIN To n 12-04-2024 Troponin T.cardiac High sensitivity method [Mass/Vol] 551 ng/L High <12 [facility] Comment on above: Order Comment: Speci men Type: BLOOD SPECIMENOrdering Facility: [facility] Address: [address] [place] [address] Performed By: #### H STNT ####[facility]ATORYCLIA [id number] [address] [place] Troponin T.cardiac High sensitivity method [Mass/Vol] 565 ng/L High <12 [facility] Comment on above: Order Comment: Speci men Type: BLOOD SPECIMENOrdering Facility: [facility] Address: [address] [place] [address] Performed By: #### H STNT ####[facility]ATORYCLIA [id number] [place] [id number] [place] Troponin T.cardiac High sensitivity method [Mass/Vol] 533 ng/L High <12 [facility] Comment on above: Order Comment: Speci men Type: BLOOD SPECIMENOrdering Facility: [facility] Address: [address] [place] [address] Performed By: #### H STNT ####[facility]ATORYCLIA [id number] [place] [id number] [place] Lactate (Bld) [Moles/Vol]on 12-04-2024 Lactate [Moles/Vol] 1.1 mmol/L Normal 0.5-2.2 [facility] Comment on above: Order Comment: Speci men Type: BLOOD SPECIMENOrdering Facility: [facility] Address: [address] [place] [address] Performed By: #### 3 2693-4 ####[facility]ATORYCLIA [id number] [place] [address] [place] Magnesium SerPl-ncon 12-04 Magnesium [Mass/Vol] 2.2 mg/dL Normal 1.7-2.3 [facility] Comment on above: Order Comment: Speci men Type: BLOOD SPECIMENOrdering Facility: [facility] Address: [address] [place] [address] Performed By: #### 2 4321-2, 07112-9, 2777-1 ####[facility]ORYCLIA [id number] [place] [address] [place] NUTRITIONon 12-04-2024 NUTRITION Normal [facility] OPERATIVE NOon 12-04-2024 OPERATIVE NO Normal [facility] Phosphate SerPl-mCncon 12-04 Phosphate [Mass/Vol] 4.7 mg/dL Normal 2.7-4.8 [facility] Comment on above: Order Comment: Speci men Type: BLOOD SPECIMENOrdering Facility: [facility] Address: [address] [place] [address] Performed By: #### 2 4321-2, 41519-1, 2777-1 ####[facility]ATORYCLIA [id number] [place] [address] [place] THERAPY NTon 12-04-2024 THERAPY NT Normal [facility] XR CHEST 1V FRONTALon 2024 XR CHEST 1V FRONTAL Normal [facility] XR SURGICAL COUNT -NBon 11-23 XR SURGICAL COUNT -NB Normal [facility] ANES POSTPROC EVALon 025 ANES POSTPROC EVAL Normal [facility] Bacteria Spec Anaerobe Culto n 12-03-2024 Bacteria identified Anaer cx Nom (Unsp spec) Negative Normal [facility] Comment on above: Performed By: #### 6 462-6, 635-3 ####[facility]ATORYCLIA [id number] [place] [address] [place] Bacteria Wnd Culton 12-04-19 25 Bacteria identified Cx Nom (Wound) CULTURE, WOUND: No growth 3 days GRAM STAIN: No organisms seen Many Polymorphonuclear leukocytes Many Red Blood Cells Normal [facility] Comment on above: Performed By: #### 6 462-6, 635-3 ####[facility]ORYCLIA [id number] [place] [address] [place] Basic metabolic 2000 panelon 12-03-2024 Anion gap [Moles/Vol] 15 mmol/L Normal 8-15 [facility] Comment on above: Order Comment: Speci men Type: BLOOD SPECIMENOrdering Facility: [facility] Address: [address] [place] [address] Performed By: #### 2 4321-2 ####[facility]ATORYCLIA [id number] [place] [address] [place] Calcium [Mass/Vol] 8.1 mg/dL Low 8.5-10.2 [facility] Comment on above: Order Comment: Speci men Type: BLOOD SPECIMENOrdering Facility: [facility] Address: [address] [place] [address] Performed By: #### 2 4321-2 ####[facility]ATORYCLIA [id number] [place] [address] [place] Chloride [Moles/Vol] 109 mmol/L High 98-107 [facility] Comment on above: Order Comment: Speci men Type: BLOOD SPECIMENOrdering Facility: [facility] Address: [address] [place] [address] Performed By: #### 2 4321-2 ####[facility]ORYCLIA [id number] [address] [place] CO2 [Moles/Vol] 17 mmol/L Low 22-30 [facility] Comment on above: Order Comment: Speci men Type: BLOOD SPECIMENOrdering Facility: [facility] Address: [address] [place] [address] Performed By: #### 2 4321-2 ####[facility]ATORYCLIA [id number] [address] STATES OF [facility] Creatinine [Mass/Vol] 2.29 mg/dL High 0.73-1.22 [facility] Comment on above: Order Comment: Speci men Type: BLOOD SPECIMENOrdering Facility: [facility] Address: [address] [place] [address] Performed By: #### 2 4321-2 ####[facility]ATORYCLIA [id number] [address] Creatinine and Glomerular filtration rate.predicted panel (S/P/Bld) 29 mL/min/1.73m??? Low >=60 [facility] Comment on above: Order Comment: Speci men Type: BLOOD SPECIMENOrdering Facility: [facility] Address: [address] [place] [address] Result Comment: Eli mated Glomerular Filtration Rate (eGFR) is calculated using the 2020 CKD-EPI creatinine equation. This equation utilizes serum creatinine, sex, and age as parameters. The creatinine assay has traceable calibration to isotope dilution-mass spectrometry. Refer to KDIGO guidelines for clinical interpretation. In patients with unstable renal function, e.g. those with acute kidney injury, the eGFR may not accurately reflect actual GFR. Performed By: #### 2 4321-2 ####[facility]ATORYCLIA [id number] [place] [address] [place] Glucose [Mass/Vol] 86 mg/dL Normal 74-99 [facility] Comment on above: Order Comment: Speci kaitlin Type: BLOOD SPECIMENOrdering Facility: [facility] Address: [address] [place] [address] Result Comment: The [place] [employer] (ADA) provides guidance for cutoff values for fasting glucose and random glucose. The ADA defines fasting as no caloric intake for at least 8 hours. Fasting plasma glucose results between 100 to 125 mg/dL indicate increased risk for diabetes (prediabetes).Fasting plasma glucose results greater than or equal to 126 mg/dL meet the criteria for diagnosis of diabetes. In the absence of unequivocal hyperglycemia, results should be confirmed by repeat testing. In a patient with classic symptoms of hyperglycemia or hyperglycemic crisis, random plasma glucose results greater than or equal to 200 mg/dL meet the criteria for diagnosis of diabetes.Reference: Standards of Medical Care in Diabetes 2016, [place] [employer]. Diabetes Care. 2016.39(Suppl 1). Performed By: #### 2 4321-2 ####[facility]ATORYCLIA [id number] [place] [address] [place] Potassium [Moles/Vol] 4.6 mmol/L Normal 3.7-5.1 [facility] Comment on above: Order Comment: Daríoi men Type: BLOOD SPECIMENOrdering Facility: [facility] Address: [address] [place] [address] Performed By: #### 2 4321-2 ####[facility]ATORYCLIA [id number] [place] [id number] [place] Sodium [Moles/Vol] 141 mmol/L Normal 136-144 [facility] Comment on above: Order Comment: Daríoi men Type: BLOOD SPECIMENOrdering Facility: [facility] Address: [address] [place] [address] Performed By: #### 2 4321-2 ####[facility]ATORYCLIA [id number] [place] [address] [place] Urea nitrogen [Mass/Vol] 55 mg/dL High 9-24 [facility] Comment on above: Order Comment: Speci men Type: BLOOD SPECIMENOrdering Facility: [facility] Address: [address] [place] [address] Performed By: #### 2 4321-2 ####[facility] LABORATORYCLIA [id number] [place] [address] [place] Anion gap [Moles/Vol] 18 mmol/L High 8-15 [facility] Comment on above: Order Comment: Speci men Type: BLOOD SPECIMENOrdering Facility: [facility] Address: [address] [place] [address] Performed By: #### 2 4321-2, 03161-0 ####[facility]ATORYCLIA [id number] [place] [address] [place] Calcium [Mass/Vol] 8.6 mg/dL Normal 8.5-10.2 [facility] Comment on above: Order Comment: Speci men Type: BLOOD SPECIMENOrdering Facility: [facility] Address: [address] [place] [address] Performed By: #### 2 4321-2, 22945-2 ####[facility]ATORYCLIA [id number] [place] [address] [place] Chloride [Moles/Vol] 104 mmol/L Normal 98-107 [facility] Comment on above: Order Comment: Speci men Type: BLOOD SPECIMENOrdering Facility: [facility] Address: [address] [place] [address] Performed By: #### 2 4321-2, 15140-0 ####[facility] LABORATORYCLIA [id number] [place] [address] [place] CO2 [Moles/Vol] 16 mmol/L Low 22-30 [facility] Comment on above: Order Comment: Speci men Type: BLOOD SPECIMENOrdering Facility: [facility] Address: [address] [place] [address] Performed By: #### 2 4321-2, 92887-1 ####[facility] [id number] [place] [address] [place] Creatinine [Mass/Vol] 1.97 mg/dL High 0.73-1.22 [facility] Comment on above: Order Comment: Stuart madrigal Type: BLOOD SPECIMENOrdering Facility: [facility] Address: [address] [place] [address] Performed By: #### 2 4321-2, 58055-1 ####[facility]CLIA [id number] [place] [id number] [facility] Creatinine and Glomerular filtration rate.predicted panel (S/P/Bld) 34 mL/min/1.73m??? Low >=60 [facility] Comment on above: Order Comment: Stuart madrigal Type: BLOOD SPECIMENOrdering Facility: [facility] Address: [address] [place] [address] Result Comment: Eli mated Glomerular Filtration Rate (eGFR) is calculated using the 2020 CKD-EPI creatinine equation. This equation utilizes serum creatinine, sex, and age as parameters. The creatinine assay has traceable calibration to isotope dilution-mass spectrometry. Refer to KDIGO guidelines for clinical interpretation. In patients with unstable renal function, e.g. those with acute kidney injury, the eGFR may not accurately reflect actual GFR. Performed By: #### 2 4321-2, 75151-8 ####[facility]ATORYIA [id number] [place] [address] [place] Glucose [Mass/Vol] 133 mg/dL High 74-99 [facility] Comment on above: Order Comment: Stuart madrigal Type: BLOOD SPECIMENOrdering Facility: [facility] Address: [address] [place] [address] Result Comment: The [place] Diabetes [employer] (ADA) provides guidance for cutoff values for fasting glucose and random glucose. The ADA defines fasting as no caloric intake for at least 8 hours. Fasting plasma glucose results between 100 to 125 mg/dL indicate increased risk for diabetes (prediabetes).Fasting plasma glucose results greater than or equal to 126 mg/dL meet the criteria for diagnosis of diabetes. In the absence of unequivocal hyperglycemia, results should be confirmed by repeat testing. In a patient with classic symptoms of hyperglycemia or hyperglycemic crisis, random plasma glucose results greater than or equal to 200 mg/dL meet the criteria for diagnosis of diabetes.Reference: Standards of Medical Care in Diabetes 2016, [place] [employer]. Diabetes Care. 2016.39(Suppl 1). Performed By: #### 2 4321-2, 55130-4 ####[facility]ORYCLIA [id number] [place] [address] [place] Potassium [Moles/Vol] 4.7 mmol/L Normal 3.7-5.1 [facility] Comment on above: Order Comment: Speci men Type: BLOOD SPECIMENOrdering Facility: [facility] Address: [address] [place] [address] Performed By: #### 2 4321-2, 36619-5 ####[facility]ATORYCLIA [id number] [address] STATES [facility] Sodium [Moles/Vol] 138 mmol/L Normal 136-144 [facility] Comment on above: Order Comment: Daríoi kaitlin Type: BLOOD SPECIMENOrdering Facility: [facility] Address: [address] [place] [address] Performed By: #### 2 4321-2, 70688-5 ####[facility]ATORYCLIA [id number] [address] STATES OF [facility] Urea nitrogen [Mass/Vol] 53 mg/dL High 9-24 [facility] Comment on above: Order Comment: Speci men Type: BLOOD SPECIMENOrdering Facility: [facility] Address: [address] [place] [address] Performed By: #### 2 4321-2, 49295-5 ####[facility]ATORYCLIA [id number] [address] [place] CBC panel Auto (Bld)on 12-03 Erythrocyte distribution width (RBC) [Ratio] 12.3 % Normal 11.5-15.0 [facility] Comment on above: Order Comment: Speci men Type: BLOOD SPECIMENOrdering Facility: [facility] Address: [address] [place] [address] Performed By: #### 5 8410-2 ####[facility]ATORYCLIA [id number] [address] OF [facility] Hematocrit (Bld) [Volume fraction] 25.5 % Low 39.0-51.0 [facility] Comment on above: Order Comment: Speci men Type: BLOOD SPECIMENOrdering Facility: [facility] Address: [address] [place] [address] Performed By: #### 5 8410-2 ####[facility]ORYCLIA [id number] [address] OF [facility] Hemoglobin (Bld) [Mass/Vol] 8.6 g/dL Low 13.0-17.0 [facility] Comment on above: Order Comment: Speci men Type: BLOOD SPECIMENOrdering Facility: [facility] Address: [address] [place] [address] Performed By: #### 5 8410-2 ####[facility]ATORYCLIA [id number] [address] STATES OF [facility] MCH (RBC) [Entitic mass] 31.3 pg Normal 26.0-34.0 [facility] Comment on above: Order Comment: Speci men Type: BLOOD SPECIMENOrdering Facility: [facility] Address: [address] [place] [address] Performed By: #### 5 8410-2 ####[facility]ATORYCLIA [id number] [address] [place] MCHC (RBC) [Mass/Vol] 33.7 g/dL Normal 30.5-36.0 [facility] Comment on above: Order Comment: Speci men Type: BLOOD SPECIMENOrdering Facility: [facility] Address: [address] [place] [address] Performed By: #### 5 8410-2 ####[facility]ATORYCLIA [id number] [address] OF [place] MCV (RBC) [Entitic vol] 92.7 fL Normal 80.0-100.0 [facility] Comment on above: Order Comment: Speci men Type: BLOOD SPECIMENOrdering Facility: [facility] Address: [address] [place] [address] Performed By: #### 5 8410-2 ####[facility]ORYCLIA [id number] [address] [place] Nucleated RBC (Bld) [#/Vol] 10*3/uL Normal <0.01 [facility] Comment on above: Order Comment: Speci men Type: BLOOD SPECIMENOrdering Facility: [facility] Address: [address] [place] [address] Performed By: #### 5 8410-2 ####[facility]ORYCLIA [id number] [address] [place] Platelet mean volume (Bld) [Entitic vol] 10.8 fL Normal 9.0-12.7 [facility] Comment on above: Order Comment: Speci men Type: BLOOD SPECIMENOrdering Facility: [facility] Address: [address] [place] [address] Performed By: #### 5 8410-2 ####[facility]ORYCLIA [id number] [address] [place] Platelets (Bld) [#/Vol] 322 10*3/uL Normal 150-400 [facility] Comment on above: Order Comment: Speci men Type: BLOOD SPECIMENOrdering Facility: [facility] Address: [address] [place] [address] Performed By: #### 5 8410-2 ####[facility]ORYCLIA [id number] [place] [address] [place] RBC (Bld) [#/Vol] 2.75 10*6/uL Low 4.20-6.00 [facility] Comment on above: Order Comment: Speci men Type: BLOOD SPECIMENOrdering Facility: [facility] Address: [address] [place] [address] Performed By: #### 5 8410-2 ####[facility]ORYCLIA [id number] [address] [place] WBC (Bld) [#/Vol] 11.66 10*3/uL High 3.70-11.00 [facility] Comment on above: Order Comment: Speci men Type: BLOOD SPECIMENOrdering Facility: [facility] Address: [address] [place] [address] Performed By: #### 5 8410-2 ####[facility] LABORATORYCLIA [id number] [address] Erythrocyte distribution width (RBC) [Ratio] 12.1 % Normal 11.5-15.0 [facility] Comment on above: Order Comment: Speci men Type: BLOOD SPECIMENOrdering Facility: [facility] Address: [address] [place] [address] Performed By: #### 5 8410-2 ####[facility] LABORATORYCLIA [id number] [address] Hematocrit (Bld) [Volume fraction] 30.9 % Low 39.0-51.0 [facility] Comment on above: Order Comment: Speci men Type: BLOOD SPECIMENOrdering Facility: [facility] Address: [address] [place] [address] Performed By: #### 5 8410-2 ####[facility] LABORATORYCLIA [id number] [address] [place] Hemoglobin (Bld) [Mass/Vol] 10.1 g/dL Low 13.0-17.0 [facility] Comment on above: Order Comment: Speci men Type: BLOOD SPECIMENOrdering Facility: [facility] Address: [address] [place] [address] Performed By: #### 5 8410-2 ####[facility] LABORATORYCLIA [id number] [address] MCH (RBC) [Entitic mass] 31.4 pg Normal 26.0-34.0 [facility] Comment on above: Order Comment: Speci men Type: BLOOD SPECIMENOrdering Facility: [facility] Address: [address] [place] [address] Performed By: #### 5 8410-2 ####[facility] LABORATORYCLIA [id number] [address] STATES [facility] MCHC (RBC) [Mass/Vol] 32.7 g/dL Normal 30.5-36.0 [facility] Comment on above: Order Comment: Speci men Type: BLOOD SPECIMENOrdering Facility: [facility] Address: [address] [place] [address] Performed By: #### 5 8410-2 ####[facility] LABORATORYCLIA [id number] [address] OF [facility] MCV (RBC) [Entitic vol] 96.0 fL Normal 80.0-100.0 [facility] Comment on above: Order Comment: Speci men Type: BLOOD SPECIMENOrdering Facility: [facility] Address: [address] [place] [address] Performed By: #### 5 8410-2 ####[facility]ATORYCLIA [id number] [address] OF [facility] Nucleated RBC (Bld) [#/Vol] 10*3/uL Normal <0.01 [facility] Comment on above: Order Comment: Speci men Type: BLOOD SPECIMENOrdering Facility: [facility] Address: [address] [place] [address] Performed By: #### 5 8410-2 ####[facility] LABORATORYCLIA [id number] [address] Platelet mean volume (Bld) [Entitic vol] 10.5 fL Normal 9.0-12.7 [facility] Comment on above: Order Comment: Speci men Type: BLOOD SPECIMENOrdering Facility: [facility] Address: [address] [place] [address] Performed By: #### 5 8410-2 ####[facility] LABORATORYCLIA [id number] [address] [place] Platelets (Bld) [#/Vol] 371 10*3/uL Normal 150-400 [facility] Comment on above: Order Comment: Speci men Type: BLOOD SPECIMENOrdering Facility: [facility] Address: [facility] [place] [address] Performed By: #### 5 8410-2 ####[facility] LABORATORYCLIA [id number] [place] [address] [place] RBC (Bld) [#/Vol] 3.22 10*6/uL Low 4.20-6.00 [facility] Comment on above: Order Comment: Speci men Type: BLOOD SPECIMENOrdering Facility: [facility] Address: [address] [place] [address] Performed By: #### 5 8410-2 ####[facility] LABORATORYCLIA [id number] [address] [place] WBC (Bld) [#/Vol] 6.45 10*3/uL Normal 3.70-11.00 [facility] Comment on above: Order Comment: Speci men Type: BLOOD SPECIMENOrdering Facility: [facility] Address: [address] [place] [address] Performed By: #### 5 8410-2 ####[facility] LABORATORYCLIA [id number] [address] OF [facility] CONFIRM BLOOD TYPEon 025 ABO O Normal [facility] Comment on above: Order Comment: Speci men Type: BLOOD SPECIMENOrdering Facility: [facility] Address: [address] [place] [address] Performed By: #### C ONABO ####[facility] BLOOD BANKCLIA [id number] [address] [place] Rh Nom (Bld) Positive Normal [facility] Comment on above: Order Comment: Speci men Type: BLOOD SPECIMENOrdering Facility: [facility] Address: [address] [place] [address] Performed By: #### C ONABO ####[facility] BLOOD BANKCLIA [id number] [place] [address] [place] CONSULTon 12-03-2024 CONSULT Normal [facility] CONSULT PROGon 12-03-2024 CONSULT PROG Normal [facility] Calcium.ionized [Moles/Vol]o n 12-03-2024 Calcium.ionized (BldV) [Mass/Vol] 1.26 mmol/L Normal 1.08-1.30 [facility] Comment on above: Order Comment: Speci men Type: BLOOD SPECIMENOrdering Facility: [facility] Address: [address] [place] [address] Performed By: #### 1 995-0 ####[facility]ATORYCLIA [id number] [address] [place] Calcium.ionized adjusted to pH 7.4 (Bld) [Moles/Vol] 1.15 mmol/L Normal 1.08-1.30 [facility] Comment on above: Order Comment: Speci men Type: BLOOD SPECIMENOrdering Facility: [facility] Address: [address] [place] [address] Performed By: #### 1 995-0 ####[facility]ORATORYCLIA [id number] [address] [place] ECG COMPLETEon 12-03-2024 ECG COMPLETE Normal [facility] Gas and Carbon monoxide pane l (BldV)on 12-03-2024 BASE DEFICIT, VENOUS -10 mmol/L Low -2-0 [facility] Comment on above: Order Comment: Speci men Type: VENOUS BLOOD SPECIMENOrdering Facility: [facility] Address: [address] [place] [address] Performed By: #### 2 4344-4 ####[facility] LABORATORYCLIA [id number] [address] [place] Body temperature 98.6 [degF] Normal [facility] Comment on above: Order Comment: Speci men Type: VENOUS BLOOD SPECIMENOrdering Facility: [facility] Address: [address] [place] [address] Performed By: #### 2 4344-4 ####[facility]ATORYCLIA [id number] [address] OF [facility] Calcium.ionized (BldV) [Mass/Vol] 1.21 mmol/L Normal 1.08-1.30 [facility] Comment on above: Order Comment: Speci men Type: VENOUS BLOOD SPECIMENOrdering Facility: [facility] Address: [address] [place] [address] Performed By: #### 2 4344-4 ####[facility]ATORYCLIA [id number] [address] Calcium.ionized adjusted to pH 7.4 (BldA) [Moles/Vol] 1.13 mmol/L Normal 1.08-1.30 [facility] Comment on above: Order Comment: Speci men Type: VENOUS BLOOD SPECIMENOrdering Facility: [facility] Address: [address] [place] [address] Performed By: #### 2 4344-4 ####[facility]ITALCLIA [id number] [address] OF [facility] Carboxyhemoglobin (BldV) [Mass fraction] 2.0 % Normal 0.0-2.0 [facility] Comment on above: Order Comment: Speci men Type: VENOUS BLOOD SPECIMENOrdering Facility: [facility] Address: [address] [place] [address] Performed By: #### 2 4344-4 ####[facility]ORATORYCLIA [id number] [address] [place] Chloride [Moles/Vol] 110 mmol/L High 97-105 [facility] Comment on above: Order Comment: Speci men Type: VENOUS BLOOD SPECIMENOrdering Facility: [facility] Address: [address] [place] [address] Performed By: #### 2 4344-4 ####[facility]ORATORYCLIA [id number] [address] OF [place] CO2 (BldV) [Partial pressure] 35 mm[Hg] Low 42-55 [facility] Comment on above: Order Comment: Speci men Type: VENOUS BLOOD SPECIMENOrdering Facility: [facility] Address: [address] [place] [address] Performed By: #### 2 4344-4 ####[facility]ORATORYCLIA [id number] [address] [place] FIO2 30 % Normal [facility] Comment on above: Order Comment: Speci men Type: VENOUS BLOOD SPECIMENOrdering Facility: [facility] Address: [address] [place] [address] Performed By: #### 2 4344-4 ####[facility]ATORYCLIA [id number] [address] [place] Glucose [Mass/Vol] 141 mg/dL High 60-105 [facility] Comment on above: Order Comment: Speci men Type: VENOUS BLOOD SPECIMENOrdering Facility: [facility] Address: [address] [place] [address] Performed By: #### 2 4344-4 ####[facility]ATORYCLIA [id number] [address] [place] HCO3 (Bld) [Moles/Vol] 15 mmol/L Low 24-28 [facility] Comment on above: Order Comment: Speci men Type: VENOUS BLOOD SPECIMENOrdering Facility: [facility] Address: [address] [place] [address] Performed By: #### 2 4344-4 ####[facility] LABORATORYCLIA [id number] [address] [place] Hematocrit (Bld) [Volume fraction] 31.7 % Low 39.0-51.0 [facility] Comment on above: Order Comment: Speci men Type: VENOUS BLOOD SPECIMENOrdering Facility: [facility] Address: [address] [place] [address] Performed By: #### 2 4344-4 ####[facility]ORATORYCLIA [id number] [address] [place] Hemoglobin (Bld) [Mass/Vol] 10.2 g/dL Low 13.0-17.0 [facility] Comment on above: Order Comment: Speci men Type: VENOUS BLOOD SPECIMENOrdering Facility: [facility] Address: [address] [place] [address] Performed By: #### 2 4344-4 ####[facility]ORATORYCLIA [id number] [address] [place] Lactate [Moles/Vol] 1.0 mmol/L Normal 0.5-2.2 [facility] Comment on above: Order Comment: Speci men Type: VENOUS BLOOD SPECIMENOrdering Facility: [facility] Address: [address] [place] [address] Performed By: #### 2 4344-4 ####[facility]ORATORYCLIA [id number] [address] [place] Methemoglobin (Bld) [Mass fraction] 0.9 % Normal 0.0-1.5 [facility] Comment on above: Order Comment: Speci men Type: VENOUS BLOOD SPECIMENOrdering Facility: [facility] Address: [address] [place] [address] Performed By: #### 2 4344-4 ####[facility]ORATORYCLIA [id number] [address] O2 THERAPY VENT=Ventilator Normal [facility] Comment on above: Order Comment: Speci men Type: VENOUS BLOOD SPECIMENOrdering Facility: [facility] Address: [address] [place] [address] Performed By: #### 2 4344-4 ####[facility]ATORYCLIA [id number] [address] [place] Oxygen (BldV) [Partial pressure] 127 mm[Hg] High 35-45 [facility] Comment on above: Order Comment: Speci men Type: VENOUS BLOOD SPECIMENOrdering Facility: [facility] Address: [address] [place] [address] Performed By: #### 2 4344-4 ####[facility]ATORYCLIA [id number] [address] [place] Oxygen saturation in Venous blood 99 % High 60-85 [facility] Comment on above: Order Comment: Speci men Type: VENOUS BLOOD SPECIMENOrdering Facility: [facility] Address: [address] [place] [address] Performed By: #### 2 4344-4 ####[facility] LABORATORYCLIA [id number] [place] [address] [place] Oxyhemoglobin (BldV) [Mass fraction] 96 % High 60-85 [facility] Comment on above: Order Comment: Speci men Type: VENOUS BLOOD SPECIMENOrdering Facility: [facility] Address: [address] [place] [address] Performed By: #### 2 4344-4 ####[facility] LABORATORYCLIA [id number] [place] [address] [place] pH (BldV) 7.27 [pH] Low 7.32-7.42 [facility] Comment on above: Order Comment: Speci men Type: VENOUS BLOOD SPECIMENOrdering Facility: [facility] Address: [address] [place] [address] Performed By: #### 2 4344-4 ####[facility] LABORATORYCLIA [id number] [place] [address] [place] Potassium [Moles/Vol] 4.4 mmol/L Normal 3.5-5.0 [facility] Comment on above: Order Comment: Speci men Type: VENOUS BLOOD SPECIMENOrdering Facility: [facility] Address: [address] [place] [address] Performed By: #### 2 4344-4 ####[facility]ORATORYCLIA [id number] [place] [address] [place] Sodium [Moles/Vol] 137 mmol/L Normal 136-144 [facility] Comment on above: Order Comment: Speci men Type: VENOUS BLOOD SPECIMENOrdering Facility: [facility] Address: [address] [place] [address] Performed By: #### 2 4344-4 ####[facility]ORATORYCLIA [id number] [address] [place] HIGH SENSITIVITY TROPONIN To n 12-03-2024 Troponin T.cardiac High sensitivity method [Mass/Vol] 401 ng/L High <12 [facility] Comment on above: Order Comment: Speci men Type: BLOOD SPECIMENOrdering Facility: [facility] Address: [address] [place] [address] Performed By: #### H STNT ####[facility] LABORATORYCLIA [id number] [place] [address] [place] Troponin T.cardiac High sensitivity method [Mass/Vol] 392 ng/L High <12 [facility] Comment on above: Order Comment: Speci men Type: BLOOD SPECIMENOrdering Facility: [facility] Address: [address] [place] [address] Performed By: #### H STNT ####[facility] LABORATORYCLIA [id number] [address] STATES [facility] Troponin T.cardiac High sensitivity method [Mass/Vol] 391 ng/L High <12 [facility] Comment on above: Order Comment: Speci men Type: BLOOD SPECIMENOrdering Facility: [facility] Address: [address] [place] [address] Performed By: #### H STNT ####[facility] LABORATORYCLIA [id number] [place] [address] [place] Lactate (Bld) [Moles/Vol]on 12-03-2024 Lactate [Moles/Vol] 1.1 mmol/L Normal 0.5-2.2 [facility] Comment on above: Order Comment: Speci men Type: BLOOD SPECIMENOrdering Facility: [facility] Address: [address] [place] [address] Performed By: #### 3 2693-4 ####[facility] LABORATORYCLIA [id number] [place] [address] [place] Magnesium SerPl-mCncon 12-03 Magnesium [Mass/Vol] 2.2 mg/dL Normal 1.7-2.3 [facility] Comment on above: Order Comment: Speci men Type: BLOOD SPECIMENOrdering Facility: [facility] Address: [address] [place] [address] Performed By: #### 1 9123-9, 2777-1 ####[facility]ITALCLIA [id number] [address] [place] NT-proBNP Banneron 12-03 Natriuretic peptide.B prohormone N-Terminal [Mass/Vol] 88976 pg/mL High <450 [facility] Comment on above: Order Comment: Speci men Type: BLOOD SPECIMENOrdering Facility: [facility] Address: [address] [place] [address] Performed By: #### 2 4321-2, 31991-4 ####[facility]ITALCLIA [id number] [address] [place] OPERATIVE NOon 12-03-2024 OPERATIVE NO Normal [facility] Pathology biopsy report Gaurang (Tiss)on 12-03-2024 AP DISCLAIMER Normal [facility] Comment on above: Order Comment: Speci men Type: TISSUE SPECIMENOrdering Facility: [facility] Address: [address] [place] [address] Result Comment: Saul calvo Developed Test (LDT) Disclaimer:Performance characteristics of immunohistochemical, immunofluorescent, and chromogenic in-situ hybridization tests have been determined by the performing laboratory within [facility]'s [facility] Pathology and Laboratory Medicine Department ([facility], [facility], [facility], [facility], [facility], or [facility]) in a manner consistent with CLIA requirements. One or more of these tests may not have been cleared or approved by the FDA. [facility] is regulated under CLIA as qualified to perform high-complexity testing. These tests are used for clinical purposes. These should not be regarded as investigational or for research. Positive and negative controls stain appropriately. Performed By: #### 6 6121-5 ####[facility] LABORATORYCLIA [id number] [address] [place] CASE REPORT Normal [facility] Comment on above: Order Comment: Speci men Type: TISSUE SPECIMENOrdering Facility: [facility] Address: [address] [place] [address] Result Comment: Surg ical Pathology Report Case: [id number] Provider: Duc Rhodes MD Collected: 12/03/2024 01:35 AMOrdering Location: [facility] Received: 12/04/2024 07:56 AMPathologist: Duc Quevedo MDSpecimen: Colon, Resection, Right colon, terminal ileum Performed By: #### 6 6121-5 ####[facility] LABORATORYCLIA [id number] [address] CLINICAL HISTORY Normal [facility] Comment on above: Order Comment: Speci men Type: TISSUE SPECIMENOrdering Facility: [facility] Address: [address] [place] [address] Result Comment: 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 LABORATORYCLIA [id number] [address] DIAGNOSIS COMMENT There are areas wher e the colonic wall is grossly friable which may correspond to the serosal splitting noted in the operative report. Normal [facility] Comment on above: Order Comment: Speci men Type: TISSUE SPECIMENOrdering Facility: [facility] Address: [address] [place] [address] Performed By: #### 6 6121-5 ####[facility] LABORATORYCLIA [id number] [address] FINAL DIAGNOSIS Normal [facility] Comment on above: Order Comment: Speci men Type: TISSUE SPECIMENOrdering Facility: [facility] Address: [address] [place] [address] Result Comment: A. C olon and small bowel, right hemicolectomy:- Right hemicolectomy specimen with colonic luminal distention, (see comment).- Appendix with no significant histopathologic abnormality.- There is no evidence of malignancy. at 1018 EDT Performed By: #### 6 6121-5 ####[facility] LABORATORYCLIA [id number] [address] FINAL PERFORMING LAB Normal [facility] Comment on above: Order Comment: Speci men Type: TISSUE SPECIMENOrdering Facility: [facility] Address: [address] [place] [address] Result Comment: Diag nostic interpretation performed at: [facility], [address] [address] CLIA# [id number] Director: Manjit Grayson MD Performed By: #### 6 6121-5 ####[facility] LABORATORYCLIA [id number] [address] GROSS DESCRIPTION Normal [facility] Comment on above: Order Comment: Speci men Type: TISSUE SPECIMENOrdering Facility: [facility] Address: [address] [place] [address] Result Comment: Ivonne echevarria, ResectionReceived in formalin labeled right colon, terminal ileum is a right hemicolectomy specimen consisting of terminal ileum (5.0 cm in length x 2.5 cm circumference, right colon 49 cm length x 9.0 cm circumference and attached appendix (5.5 cm in length x 0.6 cm in diameter. The proximal margin is inked blue and the distal margin is inked orange. The serosal surface appears pink and smooth with patchy creeping fat. Upon opening, the bowel wall is diffusely distended averaging 16 cm in circumference. The terminal ileum is not involved. The wall averages 0.1 cm in thickness. A lesion is not identified. An area of friable colonic wall is seen 13 cm from the distal margin. The appendix demonstrates diffuse fecalith within the lumen. The mucosal folds are flattened. Also received in the same container is an additional segment of colon measuring 10.0 cm in length x 15 cm in width. The additional segment has a similar gross appearance of the aforementioned. [employer] sections are submitted as follows:A1-perpendicular inked margins from right hemicolectomyA2-ileocecal valve sectionA3-ascending colonA4-transverse colon with area of friable colonic wallA5-2 possible lymph nodesA6-mid and distal tip of appendixA7-perpendicular margins from additional segment of bowelGross examination performed at [facility], [address] [place], [place] [address]W[place] December 04, 2024 11:39 AM Performed By: #### 6 6121-5 ####[facility] LABORATORYCLIA [id number] [place] [address] [place] Phosphate SerPl-mCncon 12-03 Phosphate [Mass/Vol] 5.1 mg/dL High 2.7-4.8 [facility] Comment on above: Order Comment: Speci men Type: BLOOD SPECIMENOrdering Facility: [facility] Address: [address] [place] [address] Performed By: #### 1 9123-9, 2777-1 ####[facility] LABORATORYCLIA [id number] [address] TYPE + SCREENon 12-03-2024 ABO O Normal [facility] Comment on above: Order Comment: Speci men Type: BLOOD SPECIMENOrdering Facility: [facility] Address: [address] [place] [address] Performed By: #### T SCR ####[facility] BLOOD BANKCLIA [id number] [address] Rh Nom (Bld) Positive Normal [facility] Comment on above: Order Comment: Speci men Type: BLOOD SPECIMENOrdering Facility: [facility] Address: [address] [place] [address] Performed By: #### T SCR ####[facility] BLOOD BANKCLIA [id number] [address] OF [facility] TYPE AND SCREEN EXPIRATION 12/06/2024 23:59 Normal [facility] Comment on above: Order Comment: Speci men Type: BLOOD SPECIMENOrdering Facility: [facility] Address: [address] [place] [address] Performed By: #### T SCR ####[facility] BLO[facility] BANKCLIA [id number] [place] [address] [place] XR ABDOMEN 1V SUPINEon 12-03 XR ABDOMEN 1V SUPINE Normal [facility] XR CHEST 1V FRONTALon 2024 XR CHEST 1V FRONTAL Normal [facility] ANES PRE-OPon 12-02-2024 ANES PRE-OP Normal [facility] Basic metabolic 2000 panelon 12-02-2024 Anion gap [Moles/Vol] 18 mmol/L High 8-15 [facility] Comment on above: Order Comment: Speci men Type: BLOOD SPECIMENOrdering Facility: [facility] Address: [address] [place] [address] Performed By: #### 2 4321-2, 11973-3, 01274-3, 35664-4 ####[facility] LABORATORYCLIA [id number] [place] [address] [place] Calcium [Mass/Vol] 8.9 mg/dL Normal 8.5-10.2 [facility] Comment on above: Order Comment: Speci men Type: BLOOD SPECIMENOrdering Facility: [facility] Address: [address] [place] [address] Performed By: #### 2 4321-2, 55898-8, 35429-7, 10610-2 ####[facility]ATORYCLIA [id number] [place] [address] [place] Chloride [Moles/Vol] 105 mmol/L Normal 98-107 [facility] Comment on above: Order Comment: Speci men Type: BLOOD SPECIMENOrdering Facility: [facility] Address: [address] [place] [address] Performed By: #### 2 4321-2, 41692-9, 37774-4, 84691-8 ####[facility] LABORATORYCLIA [id number] [place] [id number] [place] CO2 [Moles/Vol] 16 mmol/L Low 22-30 [facility] Comment on above: Order Comment: Speci men Type: BLOOD SPECIMENOrdering Facility: [facility] Address: [address] [place] [address] Performed By: #### 2 4321-2, 79817-4, 71474-7, 84788-1 ####[facility] CENTERIA [id number] [place] [address] [place] [facility] Creatinine [Mass/Vol] 1.92 mg/dL High 0.73-1.22 [facility] Comment on above: Order Comment: Specdonal madrigal Type: BLOOD SPECIMENOrdering Facility: [facility] Address: [address] [place] [address] Performed By: #### 2 4321-2, 13903-7, 61944-8, 57098-4 ####[facility] CENTERIA [id number] [place] [address] [facility] Creatinine and Glomerular filtration rate.predicted panel (S/P/Bld) 35 mL/min/1.73m??? Low >=60 [facility] Comment on above: Order Comment: Stuart madrigal Type: BLOOD SPECIMENOrdering Facility: [facility] Address: [address] [place] [address] Result Comment: Eli mated Glomerular Filtration Rate (eGFR) is calculated using the 2020 CKD-EPI creatinine equation. This equation utilizes serum creatinine, sex, and age as parameters. The creatinine assay has traceable calibration to isotope dilution-mass spectrometry. Refer to KDIGO guidelines for clinical interpretation. In patients with unstable renal function, e.g. those with acute kidney injury, the eGFR may not accurately reflect actual GFR. Performed By: #### 2 4321-2, 78127-5, 49217-6, 76976-4 ####[facility] CENTERIA [id number] [place] [address] [place] Glucose [Mass/Vol] 102 mg/dL High 74-99 [facility] Comment on above: Order Comment: Speci kaitlin Type: BLOOD SPECIMENOrdering Facility: [facility] Address: [address] [place] [address] Result Comment: The [place] [employer] (ADA) provides guidance for cutoff values for fasting glucose and random glucose. The ADA defines fasting as no caloric intake for at least 8 hours. Fasting plasma glucose results between 100 to 125 mg/dL indicate increased risk for diabetes (prediabetes).Fasting plasma glucose results greater than or equal to 126 mg/dL meet the criteria for diagnosis of diabetes. In the absence of unequivocal hyperglycemia, results should be confirmed by repeat testing. In a patient with classic symptoms of hyperglycemia or hyperglycemic crisis, random plasma glucose results greater than or equal to 200 mg/dL meet the criteria for diagnosis of diabetes.Reference: Standards of Medical Care in Diabetes 2016, [place] [employer]. Diabetes Care. 2016.39(Suppl 1). Performed By: #### 2 4321-2, 93845-3, 81621-9, 15241-5 ####[facility]ATORYCLIA [id number] [place] [address] [place] Potassium [Moles/Vol] 4.3 mmol/L Normal 3.7-5.1 [facility] Comment on above: Order Comment: Stuart madrigal Type: BLOOD SPECIMENOrdering Facility: [facility] Address: [address] [place] [address] Performed By: #### 2 4321-2, 05022-1, , 29424-3 ####[facility]ATORYCLIA [id number] [place] [address] [place] Urea nitrogen [Mass/Vol] 52 mg/dL High 9-24 [facility] Comment on above: Order Comment: Stuart madrigal Type: BLOOD SPECIMENOrdering Facility: [facility] Address: [address] [place] [address] Performed By: #### 2 4321-2, 87371-0, , 20165-3 ####[facility]ATORYCLIA [id number] [address] [place] Anion gap [Moles/Vol] 15 mmol/L Normal 8-15 [facility] Comment on above: Order Comment: Stuart madrigal Type: BLOOD SPECIMENOrdering Facility: [facility] Address: [address] [place] [address] Performed By: #### 2 4321-2 ####[facility]ATORYCLIA [id number] [place] [address] [place] Calcium [Mass/Vol] 8.5 mg/dL Normal 8.5-10.2 [facility] Comment on above: Order Comment: Speci men Type: BLOOD SPECIMENOrdering Facility: [facility] Address: [address] [place] [address] Performed By: #### 2 4321-2 ####[facility]ATORYCLIA [id number] [place] [address] [place] Chloride [Moles/Vol] 104 mmol/L Normal 98-107 [facility] Comment on above: Order Comment: Speci men Type: BLOOD SPECIMENOrdering Facility: [facility] Address: [address] [place] [address] Performed By: #### 2 4321-2 ####[facility]ATORYCLIA [id number] [address] [place] CO2 [Moles/Vol] 18 mmol/L Low 22-30 [facility] Comment on above: Order Comment: Speci men Type: BLOOD SPECIMENOrdering Facility: [facility] Address: [address] [place] [address] Performed By: #### 2 4321-2 ####[facility]ATORYCLIA [id number] [address] [place] Creatinine [Mass/Vol] 1.85 mg/dL High 0.73-1.22 [facility] Comment on above: Order Comment: Speci men Type: BLOOD SPECIMENOrdering Facility: [facility] Address: [address] [place] [address] Performed By: #### 2 4321-2 ####[facility]ATORYCLIA [id number] [address] Creatinine and Glomerular filtration rate.predicted panel (S/P/Bld) 37 mL/min/1.73m??? Low >=60 [facility] Comment on above: Order Comment: Speci men Type: BLOOD SPECIMENOrdering Facility: [facility] Address: [address] [place] [address] Result Comment: Eli mated Glomerular Filtration Rate (eGFR) is calculated using the 2020 CKD-EPI creatinine equation. This equation utilizes serum creatinine, sex, and age as parameters. The creatinine assay has traceable calibration to isotope dilution-mass spectrometry. Refer to KDIGO guidelines for clinical interpretation. In patients with unstable renal function, e.g. those with acute kidney injury, the eGFR may not accurately reflect actual GFR. Performed By: #### 2 4321-2 ####[facility]ATORYCLIA [id number] [place] [address] [place] Glucose [Mass/Vol] 81 mg/dL Normal 74-99 [facility] Comment on above: Order Comment: Speci men Type: BLOOD SPECIMENOrdering Facility: [facility] Address: [address] [place] [address] Result Comment: The [place] Diabetes Association (ADA) provides guidance for cutoff values for fasting glucose and random glucose. The ADA defines fasting as no caloric intake for at least 8 hours. Fasting plasma glucose results between 100 to 125 mg/dL indicate increased risk for diabetes (prediabetes).Fasting plasma glucose results greater than or equal to 126 mg/dL meet the criteria for diagnosis of diabetes. In the absence of unequivocal hyperglycemia, results should be confirmed by repeat testing. In a patient with classic symptoms of hyperglycemia or hyperglycemic crisis, random plasma glucose results greater than or equal to 200 mg/dL meet the criteria for diagnosis of diabetes.Reference: Standards of Medical Care in Diabetes 2016, [place] [employer]. Diabetes Care. 2016.39(Suppl 1). Performed By: #### 2 4321-2 ####[facility]ATORYCLIA [id number] [place] [address] [place] Potassium [Moles/Vol] 4.0 mmol/L Normal 3.7-5.1 [facility] Comment on above: Order Comment: Speci men Type: BLOOD SPECIMENOrdering Facility: [facility] Address: [address] [place] [id number] Performed By: #### 2 4321-2 ####[facility]ATORYCLIA [id number] [place] [id number] [place] Sodium [Moles/Vol] 137 mmol/L Normal 136-144 [facility] Comment on above: Order Comment: Speci men Type: BLOOD SPECIMENOrdering Facility: [facility] Address: [address] [place] [address] Performed By: #### 2 4321-2 ####[facility]ATORYCLIA [id number] [place] [address] [place] Urea nitrogen [Mass/Vol] 52 mg/dL High 9-24 [facility] Comment on above: Order Comment: Speci men Type: BLOOD SPECIMENOrdering Facility: [facility] Address: [address] [place] [address] Performed By: #### 2 1-2 ####[facility] LABORATORYCLIA [id number] [place] [address] [place] Anion gap [Moles/Vol] 19 mmol/L High 8-15 [facility] Comment on above: Order Comment: Speci men Type: BLOOD SPECIMENOrdering Facility: [facility] Address: [address] [place] [address] Performed By: #### 2 4320-2, ####[facility]ATORYCLIA [id number] [place] [address] [place] Calcium [Mass/Vol] 8.5 mg/dL Normal 8.5-10.2 [facility] Comment on above: Order Comment: Speci men Type: BLOOD SPECIMENOrdering Facility: [facility] Address: [address] [place] [address] Performed By: #### 2 4321-2, ####[facility]ATORYCLIA [id number] [place] [address] [place] Chloride [Moles/Vol] 102 mmol/L Normal 98-107 [facility] Comment on above: Order Comment: Speci men Type: BLOOD SPECIMENOrdering Facility: [facility] Address: [address] [place] [address] Performed By: #### 2 4321-2, ####[facility] LABORATORYCLIA [id number] [place] [address] [place] CO2 [Moles/Vol] 15 mmol/L Low 22-30 [facility] Comment on above: Order Comment: Speci men Type: BLOOD SPECIMENOrdering Facility: [facility] Address: [address] [place] [address] Performed By: #### 2 432-, ####[facility]ITALCLIA [id number] [place] [address] [place] Creatinine [Mass/Vol] 1.73 mg/dL High 0.73-1.22 [facility] Comment on above: Order Comment: Speci men Type: BLOOD SPECIMENOrdering Facility: [facility] Address: [address] [place] [address] Performed By: #### 2 43207-27, ####[facility]ITALCLIA [id number] [place] [id number] [place] Creatinine and Glomerular filtration rate.predicted panel (S/P/Bld) 40 mL/min/1.73m??? Low >=60 [facility] Comment on above: Order Comment: Specdonal madrigal Type: BLOOD SPECIMENOrdering Facility: [facility] Address: [address] [place] [address] Result Comment: Eli mated Glomerular Filtration Rate (eGFR) is calculated using the 2020 CKD-EPI creatinine equation. This equation utilizes serum creatinine, sex, and age as parameters. The creatinine assay has traceable calibration to isotope dilution-mass spectrometry. Refer to KDIGO guidelines for clinical interpretation. In patients with unstable renal function, e.g. those with acute kidney injury, the eGFR may not accurately reflect actual GFR. Performed By: #### 2 43207-27, ####[facility]ATORYCLIA [id number] [place] [address] [place] Glucose [Mass/Vol] 138 mg/dL High 74-99 [facility] Comment on above: Order Comment: Stuart madrigal Type: BLOOD SPECIMENOrdering Facility: [facility] Address: [address] [place] [address] Result Comment: The [place] Diabetes [employer] (ADA) provides guidance for cutoff values for fasting glucose and random glucose. The ADA defines fasting as no caloric intake for at least 8 hours. Fasting plasma glucose results between 100 to 125 mg/dL indicate increased risk for diabetes (prediabetes).Fasting plasma glucose results greater than or equal to 126 mg/dL meet the criteria for diagnosis of diabetes. In the absence of unequivocal hyperglycemia, results should be confirmed by repeat testing. In a patient with classic symptoms of hyperglycemia or hyperglycemic crisis, random plasma glucose results greater than or equal to 200 mg/dL meet the criteria for diagnosis of diabetes.Reference: Standards of Medical Care in Diabetes 2016, [place] [employer]. Diabetes Care. 2016.39(Suppl 1). Performed By: #### 2 4320-08, ####[facility]ATORYCLIA [id number] [place] [address] [place] Potassium [Moles/Vol] 4.5 mmol/L Normal 3.7-5.1 [facility] Comment on above: Order Comment: Speci men Type: BLOOD SPECIMENOrdering Facility: [facility] Address: [address] [place] [address] Performed By: #### 2 ####[facility]ATORYCLIA [id number] [place] [address] [place] Sodium [Moles/Vol] 136 mmol/L Normal 136-144 [facility] Comment on above: Order Comment: Stuart madrigal Type: BLOOD SPECIMENOrdering Facility: [facility] Address: [address] [place] [address] Performed By: #### 2 ####[facility]ATORYCLIA [id number] [place] [address] [place] Urea nitrogen [Mass/Vol] 55 mg/dL High 9-24 [facility] Comment on above: Order Comment: Daríoi kaitlin Type: BLOOD SPECIMENOrdering Facility: [facility] Address: [address] [place] [address] Performed By: #### 2 4320-08, ####[facility]ORYCLIA [id number] [place] [address] [place] CBC W Auto Differential pane l (Bld)on 12-02-2024 Basophils (Bld) [#/Vol] 0.04 10*3/uL Normal <0.11 [facility] Comment on above: Order Comment: Speci men Type: BLOOD SPECIMENOrdering Facility: [facility] Address: [address] [place] [address] Performed By: #### 5 7021-8 ####[facility]ATORYCLIA [id number] [address] [place] Basophils/100 WBC (Bld) 0.3 % Normal [facility] Comment on above: Order Comment: Speci men Type: BLOOD SPECIMENOrdering Facility: [facility] Address: [address] [place] [address] Performed By: #### 5 7021-8 ####[facility]ATORYCLIA [id number] [address] [place] Differential cell count method Nom (Bld) Auto Normal [facility] Comment on above: Order Comment: Speci men Type: BLOOD SPECIMENOrdering Facility: [facility] Address: [address] [place] [address] Performed By: #### 5 7021-8 ####[facility]ORATORYCLIA [id number] [address] [place] Eosinophils (Bld) [#/Vol] 10*3/uL Normal <0.46 [facility] Comment on above: Order Comment: Speci men Type: BLOOD SPECIMENOrdering Facility: [facility] Address: [address] [place] [address] Performed By: #### 5 7021-8 ####[facility]ATORYCLIA [id number] [address] [place] Eosinophils/100 WBC (Bld) 0.0 % Normal [facility] Comment on above: Order Comment: Speci men Type: BLOOD SPECIMENOrdering Facility: [facility] Address: [address] [place] [address] Performed By: #### 5 7021-8 ####[facility]ATORYCLIA [id number] [address] Erythrocyte distribution width (RBC) [Ratio] 12.5 % Normal 11.5-15.0 [facility] Comment on above: Order Comment: Speci men Type: BLOOD SPECIMENOrdering Facility: [facility] Address: [address] [place] [address] Performed By: #### 5 7021-8 ####[facility]ATORYCLIA [id number] [address] [place] Hematocrit (Bld) [Volume fraction] 32.7 % Low 39.0-51.0 [facility] Comment on above: Order Comment: Speci men Type: BLOOD SPECIMENOrdering Facility: [facility] Address: [address] [place] [address] Performed By: #### 5 7021-8 ####[facility]ORYCLIA [id number] [address] [place] Hemoglobin (Bld) [Mass/Vol] 11.0 g/dL Low 13.0-17.0 [facility] Comment on above: Order Comment: Speci men Type: BLOOD SPECIMENOrdering Facility: [facility] Address: [address] [place] [address] Performed By: #### 5 7021-8 ####[facility]ORYCLIA [id number] [address] Immature granulocytes (Bld) [#/Vol] 0.07 10*3/uL Normal <0.10 [facility] Comment on above: Order Comment: Speci men Type: BLOOD SPECIMENOrdering Facility: [facility] Address: [address] [place] [address] Performed By: #### 5 7021-8 ####[facility]ORYCLIA [id number] [address] Immature granulocytes/100 WBC (Bld) 0.6 % Normal [facility] Comment on above: Order Comment: Speci men Type: BLOOD SPECIMENOrdering Facility: [facility] Address: [address] [place] [address] Performed By: #### 5 7021-8 ####[facility]ORYCLIA [id number] [address] Lymphocytes (Bld) [#/Vol] 0.56 10*3/uL Low 1.00-4.00 [facility] Comment on above: Order Comment: Speci men Type: BLOOD SPECIMENOrdering Facility: [facility] Address: [address] [place] [address] Performed By: #### 5 7021-8 ####[facility]ORYCLIA [id number] [address] Lymphocytes/100 WBC (Bld) 4.9 % Normal [facility] Comment on above: Order Comment: Speci men Type: BLOOD SPECIMENOrdering Facility: [facility] Address: [address] [place] [address] Performed By: #### 5 7021-8 ####[facility]ATORYCLIA [id number] [address] STATES [facility] MCH (RBC) [Entitic mass] 31.3 pg Normal 26.0-34.0 [facility] Comment on above: Order Comment: Speci men Type: BLOOD SPECIMENOrdering Facility: [facility] Address: [address] [place] [address] Performed By: #### 5 7021-8 ####[facility]ORYCLIA [id number] [address] OF [facility] MCHC (RBC) [Mass/Vol] 33.6 g/dL Normal 30.5-36.0 [facility] Comment on above: Order Comment: Speci men Type: BLOOD SPECIMENOrdering Facility: [facility] Address: [address] [place] [address] Performed By: #### 5 7021-8 ####[facility]ORYCLIA [id number] [address] MCV (RBC) [Entitic vol] 93.2 fL Normal 80.0-100.0 [facility] Comment on above: Order Comment: Speci men Type: BLOOD SPECIMENOrdering Facility: [facility] Address: [address] [place] [address] Performed By: #### 5 7021-8 ####[facility]ORATORYCLIA [id number] [address] [place] Monocytes (Bld) [#/Vol] 0.55 10*3/uL Normal <0.87 [facility] Comment on above: Order Comment: Speci men Type: BLOOD SPECIMENOrdering Facility: [facility] Address: [address] [place] [address] Performed By: #### 5 7021-8 ####[facility] LABORATORYCLIA [id number] [address] [place] Monocytes/100 WBC (Bld) 4.8 % Normal [facility] Comment on above: Order Comment: Speci men Type: BLOOD SPECIMENOrdering Facility: [facility] Address: [address] [place] [address] Performed By: #### 5 7021-8 ####[facility]ATORYCLIA [id number] [address] [place] Neutrophils (Bld) [#/Vol] 10.23 10*3/uL High 1.45-7.50 [facility] Comment on above: Order Comment: Speci men Type: BLOOD SPECIMENOrdering Facility: [facility] Address: [address] [place] [address] Performed By: #### 5 7021-8 ####[facility]ORYCLIA [id number] [address] [place] Neutrophils/100 WBC (Bld) 89.4 % Normal [facility] Comment on above: Order Comment: Speci men Type: BLOOD SPECIMENOrdering Facility: [facility] Address: [address] [place] [address] Performed By: #### 5 7021-8 ####[facility]ORYCLIA [id number] [place] [address] [place] Nucleated RBC (Bld) [#/Vol] 10*3/uL Normal <0.01 [facility] Comment on above: Order Comment: Speci men Type: BLOOD SPECIMENOrdering Facility: [facility] Address: [address] [place] [address] Performed By: #### 5 7021-8 ####[facility]ORYCLIA [id number] [address] [place] Nucleated RBC/100 WBC (Bld) [Ratio] 0.0 /100 WBC Normal [facility] Comment on above: Order Comment: Speci men Type: BLOOD SPECIMENOrdering Facility: [facility] Address: [address] [place] [address] Performed By: #### 5 7021-8 ####[facility]ORYCLIA [id number] [address] [place] Platelet mean volume (Bld) [Entitic vol] 11.1 fL Normal 9.0-12.7 [facility] Comment on above: Order Comment: Speci men Type: BLOOD SPECIMENOrdering Facility: [facility] Address: [address] [place] [address] Performed By: #### 5 7021-8 ####[facility]ORYCLIA [id number] [address] [place] Platelets (Bld) [#/Vol] 395 10*3/uL Normal 150-400 [facility] Comment on above: Order Comment: Speci men Type: BLOOD SPECIMENOrdering Facility: [facility] Address: [address] [place] [address] Performed By: #### 5 7021-8 ####[facility]ORYCLIA [id number] [address] [place] RBC (Bld) [#/Vol] 3.51 10*6/uL Low 4.20-6.00 [facility] Comment on above: Order Comment: Speci men Type: BLOOD SPECIMENOrdering Facility: [facility] Address: [address] [place] [address] Performed By: #### 5 7021-8 ####[facility]ORYCLIA [id number] [address] [place] WBC (Bld) [#/Vol] 11.45 10*3/uL High 3.70-11.00 [facility] Comment on above: Order Comment: Speci men Type: BLOOD SPECIMENOrdering Facility: [facility] Address: [address] [place] [address] Performed By: #### 5 7021-8 ####[facility]ORYCLIA [id number] [address] CBC panel Auto (Bld)on 12-02 Erythrocyte distribution width (RBC) [Ratio] 12.1 % Normal 11.5-15.0 [facility] Comment on above: Order Comment: Speci men Type: BLOOD SPECIMENOrdering Facility: [facility] Address: [address] [place] [address] Performed By: #### 5 8410-2 ####[facility] [id number] [address] Hematocrit (Bld) [Volume fraction] 30.3 % Low 39.0-51.0 [facility] Comment on above: Order Comment: Speci men Type: BLOOD SPECIMENOrdering Facility: [facility] Address: [address] [place] [address] Performed By: #### 5 8410-2 ####[facility]ORYCLIA [id number] [address] OF [facility] Hemoglobin (Bld) [Mass/Vol] 9.9 g/dL Low 13.0-17.0 [facility] Comment on above: Order Comment: Speci men Type: BLOOD SPECIMENOrdering Facility: [facility] Address: [address] [place] [address] Performed By: #### 5 8410-2 ####[facility]ATORYCLIA [id number] [address] [place] MCH (RBC) [Entitic mass] 30.8 pg Normal 26.0-34.0 [facility] Comment on above: Order Comment: Speci men Type: BLOOD SPECIMENOrdering Facility: [facility] Address: [address] [place] [address] Performed By: #### 5 8410-2 ####[facility]ATORYCLIA [id number] [address] MCHC (RBC) [Mass/Vol] 32.7 g/dL Normal 30.5-36.0 [facility] Comment on above: Order Comment: Speci men Type: BLOOD SPECIMENOrdering Facility: [facility] Address: [address] [place] [address] Performed By: #### 5 8410-2 ####[facility]ATORYCLIA [id number] [address] MCV (RBC) [Entitic vol] 94.4 fL Normal 80.0-100.0 [facility] Comment on above: Order Comment: Speci men Type: BLOOD SPECIMENOrdering Facility: [facility] Address: [address] [place] [address] Performed By: #### 5 8410-2 ####[facility]ATORYCLIA [id number] [address] Nucleated RBC (Bld) [#/Vol] 10*3/uL Normal <0.01 [facility] Comment on above: Order Comment: Speci men Type: BLOOD SPECIMENOrdering Facility: [facility] Address: [address] [place] [address] Performed By: #### 5 8410-2 ####[facility]ATORYCLIA [id number] [address] Platelet mean volume (Bld) [Entitic vol] 10.7 fL Normal 9.0-12.7 [facility] Comment on above: Order Comment: Speci men Type: BLOOD SPECIMENOrdering Facility: [facility] Address: [address] [place] [address] Performed By: #### 5 8410-2 ####[facility]ORYCLIA [id number] [address] [place] Platelets (Bld) [#/Vol] 407 10*3/uL High 150-400 [facility] Comment on above: Order Comment: Speci men Type: BLOOD SPECIMENOrdering Facility: [facility] Address: [address] [place] [address] Performed By: #### 5 8410-2 ####[facility]ORYCLIA [id number] [address] [place] RBC (Bld) [#/Vol] 3.21 10*6/uL Low 4.20-6.00 [facility] Comment on above: Order Comment: Speci men Type: BLOOD SPECIMENOrdering Facility: [facility] Address: [address] [place] [address] Performed By: #### 5 8410-2 ####[facility]ORYCLIA [id number] [address] WBC (Bld) [#/Vol] 10.35 10*3/uL Normal 3.70-11.00 [facility] Comment on above: Order Comment: Speci men Type: BLOOD SPECIMENOrdering Facility: [facility] Address: [address] [place] [address] Performed By: #### 5 8410-2 ####[facility]ATORYCLIA [id number] [address] Erythrocyte distribution width (RBC) [Ratio] 12.2 % Normal 11.5-15.0 [facility] Comment on above: Order Comment: Speci men Type: BLOOD SPECIMENOrdering Facility: [facility] Address: [address] [place] [address] Performed By: #### 5 8410-2 ####[facility]ATORYCLIA [id number] [address] Hematocrit (Bld) [Volume fraction] 27.8 % Low 39.0-51.0 [facility] Comment on above: Order Comment: Speci men Type: BLOOD SPECIMENOrdering Facility: [facility] Address: [address] [place] [address] Performed By: #### 5 8410-2 ####[facility]ATORYCLIA [id number] [address] STATES OF [facility] Hemoglobin (Bld) [Mass/Vol] 9.3 g/dL Low 13.0-17.0 [facility] Comment on above: Order Comment: Speci men Type: BLOOD SPECIMENOrdering Facility: [facility] Address: [address] [place] [address] Performed By: #### 5 8410-2 ####[facility]ORYCLIA [id number] [address] STATES OF [facility] MCH (RBC) [Entitic mass] 31.3 pg Normal 26.0-34.0 [facility] Comment on above: Order Comment: Speci men Type: BLOOD SPECIMENOrdering Facility: [facility] Address: [address] [place] [address] Performed By: #### 5 8410-2 ####[facility]ORYCLIA [id number] [address] OF [facility] MCHC (RBC) [Mass/Vol] 33.5 g/dL Normal 30.5-36.0 [facility] Comment on above: Order Comment: Speci men Type: BLOOD SPECIMENOrdering Facility: [facility] Address: [address] [place] [address] Performed By: #### 5 8410-2 ####[facility]ORYCLIA [id number] [address] [place] MCV (RBC) [Entitic vol] 93.6 fL Normal 80.0-100.0 [facility] Comment on above: Order Comment: Speci men Type: BLOOD SPECIMENOrdering Facility: [facility] Address: [address] [place] [address] Performed By: #### 5 8410-2 ####[facility]ATORYCLIA [id number] [address] OF [facility] Nucleated RBC (Bld) [#/Vol] 10*3/uL Normal <0.01 [facility] Comment on above: Order Comment: Speci men Type: BLOOD SPECIMENOrdering Facility: [facility] Address: [address] [place] [address] Performed By: #### 5 8410-2 ####[facility]ORYCLIA [id number] [address] STATES [place] Platelet mean volume (Bld) [Entitic vol] 10.6 fL Normal 9.0-12.7 [facility] Comment on above: Order Comment: Speci men Type: BLOOD SPECIMENOrdering Facility: [facility] Address: [address] [place] [address] Performed By: #### 5 8410-2 ####[facility]ATORYCLIA [id number] [address] [place] Platelets (Bld) [#/Vol] 379 10*3/uL Normal 150-400 [facility] Comment on above: Order Comment: Speci men Type: BLOOD SPECIMENOrdering Facility: [facility] Address: [address] [place] [address] Performed By: #### 5 8410-2 ####[facility]ORYCLIA [id number] [address] [place] RBC (Bld) [#/Vol] 2.97 10*6/uL Low 4.20-6.00 [facility] Comment on above: Order Comment: Speci men Type: BLOOD SPECIMENOrdering Facility: [facility] Address: [address] [place] [address] Performed By: #### 5 8410-2 ####[facility]ORYCLIA [id number] [address] [place] WBC (Bld) [#/Vol] 10.18 10*3/uL Normal 3.70-11.00 [facility] Comment on above: Order Comment: Speci men Type: BLOOD SPECIMENOrdering Facility: [facility] Address: [address] [place] [address] Performed By: #### 5 8410-2 ####[facility]ATORYCLIA [id number] [address] OF [facility] CONSULTon 12-02-2024 CONSULT Normal [facility] CONSULT PROGon 12-02-2024 CONSULT PROG Normal [facility] Calcium.ionized [Moles/Vol]o n 12-02-2024 Calcium.ionized (BldV) [Mass/Vol] 1.13 mmol/L Normal 1.08-1.30 [facility] Comment on above: Order Comment: Speci men Type: BLOOD SPECIMENOrdering Facility: [facility] Address: [address] [place] [address] Performed By: #### 1 995-0 ####[facility]ATORYCLIA [id number] [address] Calcium.ionized adjusted to pH 7.4 (Bld) [Moles/Vol] 1.10 mmol/L Normal 1.08-1.30 [facility] Comment on above: Order Comment: Speci men Type: BLOOD SPECIMENOrdering Facility: [facility] Address: [address] [place] [address] Performed By: #### 1 995-0 ####[facility]ATORYCLIA [id number] [address] OF [facility] ECG COMPLETEon 12-02-2024 ECG COMPLETE Normal [facility] ECG COMPLETE Normal [facility] ED NOTEon 12-02-2024 ED NOTE HNO ID: [id number] Author: KENTRELL WHITAKER RN Service: ? 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 Givens at bedside Normal [facility] ED NOTE Normal [facility] ED NOTE HNO ID: [id number] Author: SCOUT REYNOLDS RN Service: ? Author Type: Registered Nurse Type: ED Notes Filed: 12/02/2024 03:47 Note Text: Bed: 13-ED Expected date: Expected time: Means of arrival: Comments: TIMO TRANSFER Normal [facility] ED PROV NOTEon 12-02-2024 ED PROV NOTE Normal [facility] Gas + CO Pnl BldVon 12-03-19 25 Lactate [Moles/Vol] 0.7 mmol/L Normal 0.5-2.2 [facility] Comment on above: Order Comment: Speci men Type: VENOUS BLOOD SPECIMENOrdering Facility: [facility] Address: [address] [place] [address] Performed By: #### 2 4344-4 ####[facility]ORYCLIA [id number] [address] Order Comment: Speci men Type: BLOOD SPECIMENOrdering Facility: [facility] Address: [address] [place] [address] Performed By: #### 3 2693-4 ####[facility]ORYCLIA [id number] [address] Sodium [Moles/Vol] 139 mmol/L Normal 136-144 [facility] Comment on above: Order Comment: Speci men Type: VENOUS BLOOD SPECIMENOrdering Facility: [facility] Address: [address] [place] [address] Performed By: #### 2 4344-4 ####[facility]ORYCLIA [id number] [address] Order Comment: Speci men Type: BLOOD SPECIMENOrdering Facility: [facility] Address: [address] [place] [address] Performed By: #### 2 4321-2, 98340-5, 24049-9, 77757-8 ####[facility]ORYCLIA [id number] [address] OF [facility] Gas and Carbon monoxide pane l (BldV)on 12-02-2024 BASE DEFICIT, VENOUS -8 mmol/L Low -2-0 [facility] Comment on above: Order Comment: Speci men Type: VENOUS BLOOD SPECIMENOrdering Facility: [facility] Address: [address] [place] [address] Performed By: #### 2 4344-4 ####[facility]ORYCLIA [id number] [address] Body temperature 98.24 [degF] Normal [facility] Comment on above: Order Comment: Speci men Type: VENOUS BLOOD SPECIMENOrdering Facility: [facility] Address: [address] [place] [address] Performed By: #### 2 4344-4 ####[facility]ORYCLIA [id number] [address] Calcium.ionized (BldV) [Mass/Vol] 1.23 mmol/L Normal 1.08-1.30 [facility] Comment on above: Order Comment: Speci men Type: VENOUS BLOOD SPECIMENOrdering Facility: [facility] Address: [address] [place] [address] Performed By: #### 2 4344-4 ####[facility]ORYCLIA [id number] [address] OF [facility] Calcium.ionized adjusted to pH 7.4 (BldA) [Moles/Vol] 1.15 mmol/L Normal 1.08-1.30 [facility] Comment on above: Order Comment: Speci men Type: VENOUS BLOOD SPECIMENOrdering Facility: [facility] Address: [address] [place] [address] Performed By: #### 2 4344-4 ####[facility]ORYCLIA [id number] [address] [place] Carboxyhemoglobin (BldV) [Mass fraction] 1.7 % Normal 0.0-2.0 [facility] Comment on above: Order Comment: Speci men Type: VENOUS BLOOD SPECIMENOrdering Facility: [facility] Address: [address] [place] [address] Result Comment: Carb oxyhemoglobin Reference Range for Smokers: 2.0-8.0% Performed By: #### 2 4344-4 ####[facility]ORYCLIA [id number] [address] Chloride [Moles/Vol] 111 mmol/L High 97-105 [facility] Comment on above: Order Comment: Speci men Type: VENOUS BLOOD SPECIMENOrdering Facility: [facility] Address: [address] [place] [address] Performed By: #### 2 4344-4 ####[facility]ORATORYCLIA [id number] [address] CO2 (BldV) [Partial pressure] 37 mm[Hg] Low 42-55 [facility] Comment on above: Order Comment: Speci men Type: VENOUS BLOOD SPECIMENOrdering Facility: [facility] Address: [address] [place] [address] Performed By: #### 2 4344-4 ####[facility]ORYCLIA [id number] [address] CO2 adjusted to patient's actual temperature (BldV) [Partial pressure] 37 mmHg Low 42-55 [facility] Comment on above: Order Comment: Speci men Type: VENOUS BLOOD SPECIMENOrdering Facility: [facility] Address: [address] [place] [address] Performed By: #### 2 4344-4 ####[facility]ATORYCLIA [id number] [address] [place] Glucose [Mass/Vol] 100 mg/dL Normal 60-105 [facility] Comment on above: Order Comment: Speci men Type: VENOUS BLOOD SPECIMENOrdering Facility: [facility] Address: [address] [place] [address] Performed By: #### 2 4344-4 ####[facility] LABORATORYCLIA [id number] [address] [place] HCO3 (Bld) [Moles/Vol] 17 mmol/L Low 24-28 [facility] Comment on above: Order Comment: Speci men Type: VENOUS BLOOD SPECIMENOrdering Facility: [facility] Address: [address] [place] [address] Performed By: #### 2 4344-4 ####[facility]ATORYCLIA [id number] [address] [place] Hematocrit (Bld) [Volume fraction] 31.4 % Low 39.0-51.0 [facility] Comment on above: Order Comment: Speci men Type: VENOUS BLOOD SPECIMENOrdering Facility: [facility] Address: [address] [place] [address] Performed By: #### 2 4344-4 ####[facility]ORYCLIA [id number] [address] [place] Hemoglobin (Bld) [Mass/Vol] 10.1 g/dL Low 13.0-17.0 [facility] Comment on above: Order Comment: Speci men Type: VENOUS BLOOD SPECIMENOrdering Facility: [facility] Address: [address] [place] [address] Performed By: #### 2 4344-4 ####[facility]ORYCLIA [id number] [address] [place] Methemoglobin (Bld) [Mass fraction] 0.7 % Normal 0.0-1.5 [facility] Comment on above: Order Comment: Speci men Type: VENOUS BLOOD SPECIMENOrdering Facility: [facility] Address: [address] [place] [address] Performed By: #### 2 4344-4 ####[facility]ATORYCLIA [id number] [address] O2 THERAPY RA=Room Air Normal [facility] Comment on above: Order Comment: Speci men Type: VENOUS BLOOD SPECIMENOrdering Facility: [facility] Address: [address] [place] [address] Performed By: #### 2 4344-4 ####[facility]ORYCLIA [id number] [address] [place] Oxygen (BldV) [Partial pressure] 70 mm[Hg] High 35-45 [facility] Comment on above: Order Comment: Speci men Type: VENOUS BLOOD SPECIMENOrdering Facility: [facility] Address: [address] [place] [address] Performed By: #### 2 4344-4 ####[facility]ORYCLIA [id number] [address] [place] Oxygen adjusted to patient's actual temperature (BldV) [Partial pressure] 69 mmHg High 35-45 [facility] Comment on above: Order Comment: Speci men Type: VENOUS BLOOD SPECIMENOrdering Facility: [facility] Address: [address] [place] [address] Performed By: #### 2 4344-4 ####[facility]ORYCLIA [id number] [address] [place] Oxygen saturation in Venous blood 91 % High 60-85 [facility] Comment on above: Order Comment: Speci men Type: VENOUS BLOOD SPECIMENOrdering Facility: [facility] Address: [address] [place] [address] Performed By: #### 2 4344-4 ####[facility]ORYCLIA [id number] [address] [place] Oxyhemoglobin (BldV) [Mass fraction] 88 % High 60-85 [facility] Comment on above: Order Comment: Speci men Type: VENOUS BLOOD SPECIMENOrdering Facility: [facility] Address: [address] [place] [address] Performed By: #### 2 4344-4 ####[facility]ATORYCLIA [id number] [address] [place] pH (BldV) 7.28 [pH] Low 7.32-7.42 [facility] Comment on above: Order Comment: Speci men Type: VENOUS BLOOD SPECIMENOrdering Facility: [facility] Address: [address] [place] [address] Performed By: #### 2 4344-4 ####[facility]ORYCLIA [id number] [address] pH adjusted to patient's actual temperature (BldV) 7.29 Low 7.32-7.42 [facility] Comment on above: Order Comment: Speci men Type: VENOUS BLOOD SPECIMENOrdering Facility: [facility] Address: [address] [place] [address] Performed By: #### 2 4344-4 ####[facility]ORYCLIA [id number] [address] [place] Potassium [Moles/Vol] 4.2 mmol/L Normal 3.5-5.0 [facility] Comment on above: Order Comment: Speci men Type: VENOUS BLOOD SPECIMENOrdering Facility: [facility] Address: [address] [place] [address] Performed By: #### 2 4344-4 ####[facility]ATORYCLIA [id number] [address] HIGH SENSITIVITY TROPONIN To n 12-02-2024 Troponin T.cardiac High sensitivity method [Mass/Vol] 320 ng/L High <12 [facility] Comment on above: Order Comment: Speci men Type: BLOOD SPECIMENOrdering Facility: [facility] Address: [address] [place] [address] Performed By: #### H STNT ####[facility]ORYCLIA [id number] [address] [place] HISTORY PHYSICALon HISTORY PHYSICAL Normal [facility] Hepatic function 2000 panelo n 12-02-2024 Albumin [Mass/Vol] 3.4 g/dL Low 3.9-4.9 [facility] Comment on above: Order Comment: Speci men Type: BLOOD SPECIMENOrdering Facility: [facility] Address: [address] [place] [address] Performed By: #### 2 4321-2, 58138-2, 64259-9, 71291-1 ####[facility]ATORYCLIA [id number] [place] [address] [place] ALP [Catalytic activity/Vol] 48 U/L Normal 38-113 [facility] Comment on above: Order Comment: Speci men Type: BLOOD SPECIMENOrdering Facility: [facility] Address: [address] [place] [address] Performed By: #### 2 4321-2, 08492-4, 02316-2, 70645-4 ####[facility]ORYCLIA [id number] [place] [id number] [place] ALT With P-5'-P [Catalytic activity/Vol] 7 U/L Low 10-54 [facility] Comment on above: Order Comment: Speci men Type: BLOOD SPECIMENOrdering Facility: [facility] Address: [address] [place] [address] Performed By: #### 2 4321-2, 83046-1, 47606-9, 40478-6 ####[facility]ORYCLIA [id number] [place] [id number] [place] AST With P-5'-P [Catalytic activity/Vol] 19 U/L Normal 14-40 [facility] Comment on above: Order Comment: Speci men Type: BLOOD SPECIMENOrdering Facility: [facility] Address: [address] [place] [address] Performed By: #### 2 4321-2, 86971-2, 38491-9, 92333-2 ####[facility]ORYCLIA [id number] [place] [id number] [place] Bilirubin [Mass/Vol] 0.5 mg/dL Normal 0.2-1.3 [facility] Comment on above: Order Comment: Speci men Type: BLOOD SPECIMENOrdering Facility: [facility] Address: [address] [place] [address] Performed By: #### 2 4321-2, 31510-7, 37060-3, 41664-2 ####[facility]ORYCLIA [id number] [facility] [address] Bilirubin.conjugated [Mass/Vol] 0.2 mg/dL Normal <0.3 [facility] Comment on above: Order Comment: Speci men Type: BLOOD SPECIMENOrdering Facility: [facility] Address: [address] [place] [address] Performed By: #### 2 4321-2, 50965-5, 50127-6, 88604-2 ####[facility]ORYCLIA [id number] [address] [place] Protein [Mass/Vol] 6.0 g/dL Low 6.3-8.0 [facility] Comment on above: Order Comment: Speci men Type: BLOOD SPECIMENOrdering Facility: [facility] Address: [address] [place] [address] Performed By: #### 2 4321-2, 14475-0, 34463-1, 82432-1 ####[facility]ORYCLIA [id number] [address] [place] Lactate (Bld) [Moles/Vol]on 12-02-2024 Lactate [Moles/Vol] 0.9 mmol/L Normal 0.5-2.2 [facility] Comment on above: Order Comment: Speci men Type: BLOOD SPECIMENOrdering Facility: [facility] Address: [address] [place] [address] Performed By: #### 3 2693-4 ####[facility]ORYCLIA [id number] [address] [place] Lactate [Moles/Vol] 1.1 mmol/L Normal 0.5-2.2 [facility] Comment on above: Order Comment: Speci men Type: BLOOD SPECIMENOrdering Facility: [facility] Address: [address] [place] [address] Performed By: #### 3 2693-4 ####[facility]ATORYCLIA [id number] [address] [place] Lactic Acidon 12-02-2024 Lactate [Moles/Vol] 1.5 mmol/L Normal 0.0-2.0 [facility] Comment on above: Order Comment: Y Performed By: #### L [phone] ####[facility] [address] [place], [place], [address] Lactic acid measurementOrder ed By: Zahira Smith on 12-02-2024 Lactate [Moles/Vol] 1.5 mmol/L 0.0-2.0 [facility]02 Magnesium [Mass/Vol] 2.5 mg/dL High 1.7-2.3 [facility] Comment on above: Order Comment: Speci men Type: BLOOD SPECIMENOrdering Facility: [facility] Address: [address] [place] [address] Performed By: #### 2 4321-2, 88260-0, 59009-3, 91110-9 ####[facility]ORYCLIA [id number] [address] [place] Magnesium [Mass/Vol] 2.4 mg/dL High 1.7-2.3 [facility] Comment on above: Order Comment: Speci men Type: BLOOD SPECIMENOrdering Facility: [facility] Address: [address] [place] [address] Performed By: #### 2 777-1, ####[facility]ORYCLIA [id number] [place] [id number] [place] Magnesium [Mass/Vol] 2.3 mg/dL Normal 1.7-2.3 [facility] Comment on above: Order Comment: Speci men Type: BLOOD SPECIMENOrdering Facility: [facility] Address: [address] [place] [address] Performed By: #### 2 4321-2, ####[facility]ATORYCLIA [id number] [place] [id number] [place] NT-proBNP SerPl-ncon 12-02 Natriuretic peptide.B prohormone N-Terminal [Mass/Vol] 33346 pg/mL High <450 [facility] Comment on above: Order Comment: Speci men Type: BLOOD SPECIMENOrdering Facility: [facility] Address: [address] [place] [address] Performed By: #### 2 4321-2, 28892-6, 19313-4, 13244-7 ####[facility] LABORATORYCLIA [id number] [place] [address] [place] Phosphate SerPl-mCncon 12-02 Phosphate [Mass/Vol] 4.1 mg/dL Normal 2.7-4.8 [facility] Comment on above: Order Comment: Speci men Type: BLOOD SPECIMENOrdering Facility: [facility] Address: [address] [place] [address] Performed By: #### 2 777-1 ####[facility] [id number] [place] [address] [place] Phosphate [Mass/Vol] 5.0 mg/dL High 2.7-4.8 [facility] Comment on above: Order Comment: Speci men Type: BLOOD SPECIMENOrdering Facility: [facility] Address: [address] [place] [address] Performed By: #### 2 777-1, 39665-9 ####[facility]ORYCLIA [id number] [place] [address] [place] STAPHYLOCOCCUS AUREUS AND M RSA SCREEN, PCR, NASALon 12-02-2024 S. aureus and MRSA panel ALLEN+probe (Nose) Not detected Normal Not Detected [facility] Comment on above: Order Comment: Speci men Type: SWABOrdering Facility: [facility] Address: [address] [place] [address] Performed By: #### S APCR ####[facility]ATORYCLIA [id number] [place] [address] [place] XR ABDOMEN 1V SUPINEon 12-02 XR ABDOMEN 1V SUPINE Normal [facility] XR CHEST 1V FRONTALon 2024 XR CHEST 1V FRONTAL Normal [facility] Abdomen/Pelvis W IV Cont ONL Yon 12-01-2024 Abdomen/Pelvis W IV Cont ONLY Normal [facility] Absolute lymphocyte countOrd ered By: Rolf Donovan on 12-01-2024 Lymphocytes Auto (Unsp spec) [#/Vol] 0.96 10*3/uL 0.83-4.51 [facility] Absolute neutrophil countOrd ered By: Rolf Donovan on 12-01-2024 Neutrophils (Bld) [#/Vol] 10.2 10*3/uL High 2.0-7.7 [facility] Amorphous sediment detection in urine sediment by light microscopyOrdered By: Rolf Donovan on 12-01-2024 Amorphous sediment LM Ql (Urine sed) 1+ [facility] Anion gap in Serum or Plasma Ordered By: Rolf Donovan on 12-01-2024 Anion gap [Moles/Vol] 19 mmol/L High 5-15 [facility] Automated lymphocyte count a s percentage of total leukocytesOrdered By: Rolf Donovan on 12-01-2024 Lymphocytes/100 WBC Auto (Unsp spec) 7.9 % Low 19-41 [facility] BUN/creatinine ratioOrdered By: Rolf Donovan on 12-01-2024 Urea nitrogen/Creatinine [Mass ratio] 29.0 mg/mg High 10-20 [facility] Basophil percentageOrdered B y: Rolf Donovan on 12-01-2024 Basophils/100 WBC (Bld) 0.6 % 0-1 [facility] Bilirubin Test strip Ql (U)O rdered By: Rolf Donovan on 12-01-2024 Bilirubin Ql (U) Negative Negative [facility] Bilirubin, totalOrdered By: Rolf Donovan on 12-01-2024 Bilirubin [Mass/Vol] 0.66 mg/dL 0.00-1.30 [facility] CBC W/Diff, Automatedon Absolute Lymph 0.96 X10 3/uL Normal 0.83-4.51 [facility] Comment on above: Performed By: #### L 501.2450, L100.0100, L500.4050 ####[facility] [address] [place], [place], [id number] Absolute Neut 10.2 X10 3/uL High 2.0-7.7 [facility] Comment on above: Performed By: #### L 501.2450, L100.0100, L500.4050 ####[facility] [address] [place], [address] Basophils/100 WBC (Bld) 0.6 % Normal 0-1 [facility] Comment on above: Performed By: #### L 501.2450, L100.0100, L500.4050 ####[facility] [address] [place], [address] Eosinophils/100 WBC (Bld) 0.3 % Normal 0-5 [facility] Comment on above: Performed By: #### L 501.2450, L100.0100, L500.4050 ####[facility] [address] [place], [address] Erythrocyte distribution width (RBC) [Ratio] 12.3 % Normal 11.6-14.6 [facility] Comment on above: Performed By: #### L 501.2450, L100.0100, L500.4050 ####[facility] [address] [place], [address] Hematocrit (Bld) [Volume fraction] 35.9 % Low 40-54 [facility] Comment on above: Performed By: #### L 501.2450, L100.0100, L500.4050 ####[facility] [address] [place], [address] Hemoglobin (Bld) [Mass/Vol] 12.2 g/dL Low 13.0-16.5 [facility] Comment on above: Performed By: #### L 501.2450, L100.0100, L500.4050 ####[facility] [address] [place], [address] IG% 0.300 Normal 0.0-0.9 [facility] Comment on above: Result Comment: IG% - Immature Granulocytes (promyelocytes, myelocytes andmetamyelocytes) > 1% indicates that a LEFT SHIFT is Present. Performed By: #### L 501.2450, L100.0100, L500.4050 ####[facility] [address] [place], [address] Lymphocytes/100 WBC (Bld) 7.9 % Low 19-41 [facility] Comment on above: Performed By: #### L 501.2450, L100.0100, L500.4050 ####[facility] [address] [place], [address] MCH (RBC) [Entitic mass] 31.2 pg Normal 27.0-32.0 [facility] Comment on above: Performed By: #### L 501.2450, L100.0100, L500.4050 ####[facility] [address] [place], [address] MCHC (RBC) [Mass/Vol] 34.0 g/dL Normal 32-36 [facility] Comment on above: Performed By: #### L 501.2450, L100.0100, L500.4050 ####[facility] [address] [place], [address] MCV (RBC) [Entitic vol] 91.8 fL Normal 80-94 [facility] Comment on above: Performed By: #### L 501.2450, L100.0100, L500.4050 ####[facility] [address] [place], [address] Monocytes/100 WBC (Bld) 6.7 % Normal 0-10 [facility] Comment on above: Performed By: #### L 501.2450, L100.0100, L500.4050 ####[facility] [address] [place], [address] Neutrophils/100 WBC (Bld) 84.2 % High 47-70 [facility] Comment on above: Performed By: #### L 501.2450, L100.0100, L500.4050 ####[facility] [address] [place], [address] Nucleated RBC (Bld) [#/Vol] 0 10*3/uL Normal 0-5 [facility] Comment on above: Performed By: #### L 501.2450, L100.0100, L500.4050 ####[facility] [address] [place], [address] Platelet mean volume (Bld) [Entitic vol] 11.1 fL Normal 6.2-12.0 [facility] Comment on above: Performed By: #### L 501.2450, L100.0100, L500.4050 ####[facility] [address] [place], [address] Platelets (Bld) [#/Vol] 436 10*3/uL Normal 150-450 [facility] Comment on above: Performed By: #### L 501.2450, L100.0100, L500.4050 ####[facility] [address] [place], [address] RBC (Bld) [#/Vol] 3.91 10*6/uL Low 4.6-6.2 [facility] Comment on above: Performed By: #### L 501.2450, L100.0100, L500.4050 ####[facility] [address] [place], [address] RDW SD 41.3 fl Normal 35.1-43.9 [facility] Comment on above: Performed By: #### L 501.2450, L100.0100, L500.4050 ####[facility] [address] [place], [address] WBC (Bld) [#/Vol] 12.1 10*3/uL High 4.4-11.0 [facility] Comment on above: Performed By: #### L 501.2450, L100.0100, L500.4050 ####[facility] [address] [place], [address] Carbon dioxide, total [Moles /volume] in Central venous bloodOrdered By: Rolf Donovan on 12-01-2024 CO2 [Moles/Vol] 16.6 mmol/L Low 21.0-32.0 [facility] Chloride assayOrdered By: Riley Donovan on 12-01-2024 Chloride [Moles/Vol] 101 mmol/L 98-108 [facility] Comprehensive Metabolic Prof ilon 12-01-2024 Albumin [Mass/Vol] 4.1 g/dL Normal 3.4-4.8 [facility] Comment on above: Performed By: #### L 501.2450, L100.0100, L500.4050 ####[facility] [address] [place], [address] Albumin/Globulin [Mass ratio] 1.1 {ratio} Normal 0.9-2.4 [facility] Comment on above: Performed By: #### L 501.2450, L100.0100, L500.4050 ####[facility] [address] [place], [address] ALK PHOS 62 U/L Normal 40-129 [facility] Comment on above: Performed By: #### L 501.2450, L100.0100, L500.4050 ####[facility] [address] [place], [address] ALT [Catalytic activity/Vol] 11 U/L Normal <=46 [facility] Comment on above: Performed By: #### L 501.2450, L100.0100, L500.4050 ####[facility] [address] [place], [address] AST [Catalytic activity/Vol] 42 U/L High <=37 [facility] Comment on above: Performed By: #### L 501.2450, L100.0100, L500.4050 ####[facility] [address] [place], [address] Bilirubin [Mass/Vol] 0.66 mg/dL Normal 0.00-1.30 [facility] Comment on above: Performed By: #### L 501.2450, L100.0100, L500.4050 ####[facility] [address] [place], [address] BUN/CRE 29.0 RATIO High 10-20 [facility] Comment on above: Performed By: #### L 501.2450, L100.0100, L500.4050 ####[facility] [address] [place], [address] Calcium [Mass/Vol] 9.8 mg/dL Normal 7.6-11.0 [facility] Comment on above: Performed By: #### L 501.2450, L100.0100, L500.4050 ####[facility] [address] [place], [address] Chloride [Moles/Vol] 101 mmol/L Normal 98-108 [facility] Comment on above: Performed By: #### L 501.2450, L100.0100, L500.4050 ####[facility] [address] [place], [address] CO2 [Moles/Vol] 16.6 mmol/L Low 21.0-32.0 [facility] Comment on above: Performed By: #### L 501.2450, L100.0100, L500.4050 ####[facility] [address] [place], [address] Creatinine [Mass/Vol] 2.00 mg/dL High 0.70-1.20 [facility] Comment on above: Performed By: #### L 501.2450, L100.0100, L500.4050 ####[facility] [address] [place], [address] ECRCL 29.06 ml/min Low 50-250 [facility] Comment on above: Performed By: #### L 501.2450, L100.0100, L500.4050 ####[facility] [address] [place], [address] GAP 19 High 5-15 [facility] Comment on above: Performed By: #### L 501.2450, L100.0100, L500.4050 ####[facility] [address] [place], [address] GFR/1.73 sq M.predicted among non-blacks MDRD (S/P/Bld) [Vol rate/Area] 34 mL/min/{1.73_m2} Low >60 [facility] Comment on above: Result Comment: mL/m in/1.73m2 CKD-EPI Creatinine Equation (2020) Performed By: #### L 501.2450, L100.0100, L500.4050 ####[facility] [address] [place], [address] Globulin (S) [Mass/Vol] 3.6 g/dL Normal 2.2-4.2 [facility] Comment on above: Performed By: #### L 501.2450, L100.0100, L500.4050 ####[facility] [address] [place], [address] Glucose [Mass/Vol] 131 mg/dL High 70-99 [facility] Comment on above: Performed By: #### L 501.2450, L100.0100, L500.4050 ####[facility] [address] [place], [address] Potassium [Moles/Vol] 4.1 mmol/L Normal 3.3-5.1 [facility] Comment on above: Performed By: #### L 501.2450, L100.0100, L500.4050 ####[facility] [address] [place], [address] Sodium [Moles/Vol] 136 mmol/L Normal 133-145 [facility] Comment on above: Performed By: #### L 501.2450, L100.0100, L500.4050 ####[facility] [address] [place], [address] T PROT 7.6 g/dL Normal 5.9-8.4 [facility] Comment on above: Performed By: #### L 501.2450, L100.0100, L500.4050 ####[facility] [address] [place], [address] Urea nitrogen [Mass/Vol] 58 mg/dL High 4-19 [facility] Comment on above: Performed By: #### L 501.2450, L100.0100, L500.4050 ####[facility] [address] [place], [address] Emergency Department Summary on 12-01-2024 Emergency Department Summary Normal [facility] Eosinophil percentageOrdered By: Rolf Donovan on 12-01-2024 Eosinophils/100 WBC (Bld) 0.3 % 0-5 [facility] Erythrocyte distribution wid th ratioOrdered By: Rolf Donovan on 12-01-2024 Erythrocyte distribution width (RBC) [Ratio] 12.3 % 11.6-14.6 [facility] Erythrocyte distribution wid th standard deviationOrdered By: Rolf Donovan on 12-01-2024 Erythrocyte distribution width (RBC) [Ratio] 41.3 fl 35.1-43.9 [facility] Glomerular filtration rate ( GFR) estimation/1.73 sq m using serum, plasma, or whole bOrdered By: Rolf Donovan on 12-01-2024 GFR/1.73 sq M.predicted among non-blacks MDRD (S/P/Bld) [Vol rate/Area] 34 mL/min/{1.73_m2} Low >60 [facility] Comment on above: mL/min/1.73m2 CKD-EP I Creatinine Equation (2020) Hematocrit Auto (Bld) [Volum e fraction]Ordered By: Rolf Donovan on 12-01-2024 Hematocrit (Bld) [Volume fraction] 35.9 % Low 40-54 [facility] Hemoglobin measurementOrdere d By: Rolf Donovan on 12-01-2024 Hemoglobin (Bld) [Mass/Vol] 12.2 g/dL Low 13.0-16.5 [facility] Hyaline casts LM.LPF (Urine sed) [#/Area]Ordered By: Rolf Donovan on 12-01-2024 Hyaline casts (Urine sed) [#/Area] 0 /[LPF] 0-5 [facility] Immature granulocytes/100 WB C Auto (Bld)Ordered By: Rolf Donovan on 12-01-2024 Immature granulocytes/100 WBC (Bld) 0.300 % 0.0-0.9 [facility] Comment on above: IG% - Immature Granu locytes (promyelocytes, myelocytes and metamyelocytes) > 1% indicates that a LEFT SHIFT is Present. Ketones Test strip Ql (U)Ord ered By: Rolf Donovan on 12-01-2024 Ketones Ql (U) 5 mg/dl High Negative [facility] Laboratory - Chemistry and C hemistry - challengeOrdered By: Rolf Donovan on 12-01-2024 AST [Catalytic activity/Vol] 42 U/L High <38 [facility] Lipaseon 12-01-2024 Lipase [Catalytic activity/Vol] 13 U/L Normal 13-75 [facility] Comment on above: Result Comment: Janice ruiz note:LIPASE revised reference range effective 22.New Lipase methodology. Expected to produce lower valuesthan the previous assay method.NEW Reference Range: 13 - 75 U/L Performed By: #### L 501.2450, L100.0100, L500.4050 ####[facility] [address] [place], [address] Lipase measurementOrdered By : Rolf Donovan on 12-01-2024 Lipase [Catalytic activity/Vol] 13 U/L 13-75 [facility] Comment on above: Please note:LIPASE r evised reference range effective 22. New Lipase methodology. Expected to produce lower values than the previous assay method. NEW Reference Range: 13 - 75 U/L MCV (mean corpuscular volume ) determinationOrdered By: Rolf Donovan on 12-01-2024 MCV (RBC) [Entitic vol] 91.8 fL 80-94 [facility] Mean corpuscular hemoglobin (MCH) determinationOrdered By: Rolf Donovan on 12-01-2024 MCH (RBC) [Entitic mass] 31.2 pg 27.0-32.0 [facility] Mean corpuscular hemoglobin concentration (MCHC) determinationOrdered By: Rolf Donovan on 12-01-2024 MCHC (RBC) [Mass/Vol] 34.0 g/dL 32-36 [facility] Mean platelet volume determi nationOrdered By: Rolf Donovan on 12-01-2024 Platelet mean volume (Bld) [Entitic vol] 11.1 fL 6.2-12.0 [facility] Microscopic analysis of urin e for red blood cells (RBC)Ordered By: Rolf Donovan on 12-01-2024 Microscopic analysis of urine for red blood cells (RBC) 0 SEEN /hpf 0-5 [facility] Monocyte percentageOrdered B y: Rolf Donovan on 12-01-2024 Monocytes/100 WBC (Bld) 6.7 % 0-10 [facility] Mucus LM Ql (Urine sed)Order ed By: Rolf Donovan on 12-01-2024 Mucus Ql (Urine sed) 0 SEEN /hpf [facility] Neutrophil percentageOrdered By: Rolf Donovan on 12-01-2024 Neutrophils/100 WBC (Bld) 84.2 % High 47-70 [facility] Nitrite Test strip Ql (U)Ord ered By: Rolf Donovan on 12-01-2024 Nitrite Ql (U) Negative Negative [facility] No Panel InformationOrdered By: Rolf Donovan on 12-01-2024 42 U/L High <38 [facility] Nucleated red blood cell per centageOrdered By: Rolf Donovan on 12-01-2024 Nucleated RBC/100 WBC (Bld) [Ratio] 0 % 0-5 [facility] Platelet countOrdered By: Riley Donovan on 12-01-2024 Platelets (Bld) [#/Vol] 436 10*3/uL 150-450 [facility] Potassium measurement (mass/ volume)Ordered By: Rolf Donovan on 12-01-2024 Potassium (Unsp spec) [Mass/Vol] 4.1 mmol/L 3.3-5.1 [facility] Protein Test strip Ql (U)Ord ered By: Rolf Donovan on 12-01-2024 Protein Ql (U) 100 mg/dl High Negative [facility] RBC Auto (Bld) [#/Vol]Ordere d By: Rolf Donovan on 12-01-2024 RBC (Bld) [#/Vol] 3.91 10*6/uL Low 4.6-6.2 [facility] Serum creatinine measurement (mass/volume)Ordered By: Rolf Donovan on 12-01-2024 Creatinine [Mass/Vol] 2.00 mg/dL High 0.70-1.20 [facility] Serum globulin measurementOr dered By: Rolf Donovan on 12-01-2024 Globulin (S) [Mass/Vol] 3.6 g/dL 2.2-4.2 [facility] Serum glucose measurement (m ass/volume)Ordered By: Rolf Donovan on 12-01-2024 Glucose [Mass/Vol] 131 mg/dL High 70-99 [facility] Serum or plasma alanine juárez otransferase (ALT) measurementOrdered By: Rolf Donovan on 12-01-2024 ALT [Catalytic activity/Vol] 11 U/L <47 [facility] Serum or plasma albumin ivory urement (mass/volume)Ordered By: Rolf Donovan on 12-01-2024 Albumin [Mass/Vol] 4.1 g/dL 3.4-4.8 [facility] Serum or plasma albumin/glob ulin mass ratioOrdered By: Rolf Donovan on 12-01-2024 Albumin/Globulin [Mass ratio] 1.1 {ratio} 0.9-2.4 [facility] Serum or plasma alkaline lucy sphatase measurementOrdered By: Rolf Donovan on 12-01-2024 ALP [Catalytic activity/Vol] 62 U/L 40-129 [facility] Serum or plasma calcium ivory urement (mass/volume)Ordered By: Rolf Donovan on 12-01-2024 Calcium [Mass/Vol] 9.8 mg/dL 7.6-11.0 [facility] Serum or plasma urea nitroge n measurement (mass/volume)Ordered By: Rolf Donovan on 12-01-2024 Urea nitrogen [Mass/Vol] 58 mg/dL High 4-19 [facility] Sodium levelOrdered By: Rolf Donovan on 12-01-2024 Sodium [Moles/Vol] 136 mmol/L 133-145 [facility] Squamous epithelial cells de tection in urine sediment by light microscopyOrdered By: Rolf Donovan on 12-01-2024 Epithelial cells.squamous LM Ql (Urine sed) 0 SEEN /hpf 0-5 [facility] Total proteinOrdered By: Madonna Donovan on 12-01-2024 Protein [Mass/Vol] 7.6 g/dL 5.9-8.4 [facility] Urinalysis, Completeon 12-01 AMORPHOUS 1+ Normal [facility] Comment on above: Order Comment: CLEAN CATCH Performed By: #### L 400.0001 ####[facility] [address] [place], [place], [id number] BACTERIA 2+ /hpf Normal None Seen [facility] Comment on above: Order Comment: CLEAN CATCH Performed By: #### L 400.0001 ####[facility] [address] [place], [place], [id number] CAST,FINE GRAN 0-5 SEEN Normal 0-5 [facility] Comment on above: Order Comment: CLEAN CATCH Performed By: #### L 400.0001 ####[facility] [address] [place], [address] CAST,HYALINE 0-5 SEEN Normal 0-5 [facility] Comment on above: Order Comment: CLEAN CATCH Performed By: #### L 400.0001 ####[facility] [address] [place], [address] WBC 0-5 SEEN Normal 0-5 [facility] Comment on above: Order Comment: CLEAN CATCH Performed By: #### L 400.0001 ####[facility] [address] [place], [address] EPI,SQUAMOUS 0 SEEN Normal 0-5 [facility] Comment on above: Order Comment: CLEAN CATCH Performed By: #### L 400.0001 ####[facility] [address] [place], [address] Mucus Ql (Urine sed) 0 SEEN Normal [facility] Comment on above: Order Comment: CLEAN CATCH Performed By: #### L 400.0001 ####[facility] [address] [place], [address] RBC 0 SEEN Normal 0-5 [facility] Comment on above: Order Comment: CLEAN CATCH Performed By: #### L 400.0001 ####[facility] [address] [place], [address] Urine clarityOrdered By: Madonna Donovan on 12-01-2024 Clarity (U) Clear Clear [facility] Urine color determinationOrd ered By: Rolf Donovan on 12-01-2024 Color (U) Yellow Yellow [facility] Urine glucose detectionOrder ed By: Rolf Donovan on 12-01-2024 Glucose Ql (U) Normal mg/dl Normal [facility] Urine leukocyte esterase det ection by dipstickOrdered By: Rolf Donovan on 12-01-2024 Leukocyte esterase Test strip Ql (U) Negative Negative [facility] Urine pHOrdered By: Rolf starr on 12-01-2024 pH (U) 5.0 [pH] 5.0 - 8.0 [facility] Urine sediment bacteria coun t by microscopy (number/high power field)Ordered By: Rolf Donovan on 12-01-2024 Bacteria LM.HPF (Urine sed) [#/Area] 2 /[HPF] None Seen [facility] Urine sediment fine granular cast count by microscopy (number/low power field)Ordered By: Rolf Donovan on 12-01-2024 Fine Granular Casts LM.LPF (Urine sed) [#/Area] 0-5 SEEN /lpf 0-5 [facility] Urine specific gravity measu rementOrdered By: Rolf Donovan on 12-01-2024 Specific gravity (U) [Rel density] 1.015 1.002-1.030 [facility] Urine urobilinogen measureme ntOrdered By: Rolf Donovan on 12-01-2024 Urobilinogen Ql (U) Normal mg/dl Normal [facility] White blood cell (WBC) count Ordered By: Rolf Donovan on 12-01-2024 WBC (Bld) [#/Vol] 12.1 10*3/uL High 4.4-11.0 [facility] White blood cell countOrdere d By: Rolf Donovan on 12-01-2024 White blood cell count 0-5 SEEN /hpf 0-5 [facility] Bedside Glucoseon 11-29-2024 FINGERSTICK GLU 131 mg/dL [address] Comment on above: Result Comment: ROSA GEMENT OF PATIENT CARE PER NURSING PROTOCOL Performed By: #### L 501.080 ####[facility] [address] [place], [place], [phone] FINGERSTICK GLU 158 mg/dL [address] Comment on above: Result Comment: ROSA GEMENT OF PATIENT CARE PER NURSING PROTOCOL Performed By: #### L 501.080 ####[facility] [address] [facility] [place], [address] Glucose measurement at bedsi deOrdered By: Bill Colon on 11-29-2024 Glucose [Mass/Vol] 131 mg/dL High [address] [place] [address] Comment on above: MANAGEMENT OF PATIEN T CARE PER NURSING PROTOCOL Anion gap in Serum or Plasma Ordered By: Betina James on 11-28-2024 Anion gap [Moles/Vol] 14 mmol/L 5-15 [facility] BUN/creatinine ratioOrdered By: Betina James on 11-28-2024 Urea nitrogen/Creatinine [Mass ratio] 15.0 mg/mg 10-20 [facility] Basic Metabolic Profile (BMP )on 11-28-2024 BUN/CRE 15.0 RATIO Normal 10-20 [facility] Comment on above: Performed By: #### L 100.0500, L500.2500 ####[facility] [address] [place], [address] Calcium [Mass/Vol] 8.8 mg/dL Normal 7.6-11.0 [facility] Comment on above: Performed By: #### L 100.0500, L500.2500 ####[facility] [address] [place], [address] Chloride [Moles/Vol] 108 mmol/L Normal 98-108 [facility] Comment on above: Performed By: #### L 100.0500, L500.2500 ####[facility] [address] [place], [address] CO2 [Moles/Vol] 18.9 mmol/L Low 21.0-32.0 [facility] Comment on above: Performed By: #### L 100.0500, L500.2500 ####[facility] [address] [place], [address] Creatinine [Mass/Vol] 2.03 mg/dL High 0.70-1.20 [facility] Comment on above: Performed By: #### L 100.0500, L500.2500 ####[facility] [address] [place], [address] ECRCL 28.19 ml/min Low 50-250 [facility] Comment on above: Performed By: #### L 100.0500, L500.2500 ####[facility] [address] [place], [address] GAP 14 Normal 5-15 [facility] Comment on above: Performed By: #### L 100.0500, L500.2500 ####[facility] [address] [place], [address] GFR/1.73 sq M.predicted among non-blacks MDRD (S/P/Bld) [Vol rate/Area] 33 mL/min/{1.73_m2} Low >60 [facility] Comment on above: Result Comment: mL/m in/1.73m2 CKD-EPI Creatinine Equation (2020) Performed By: #### L 100.0500, L500.2500 ####[facility] [address] [place], [address] Glucose [Mass/Vol] 243 mg/dL High 70-99 [facility] Comment on above: Performed By: #### L 100.0500, L500.2500 ####[facility] [address] [place], [address] Potassium [Moles/Vol] 4.8 mmol/L Normal 3.3-5.1 [facility] Comment on above: Performed By: #### L 100.0500, L500.2500 ####[facility] [address] [place], [address] Sodium [Moles/Vol] 141 mmol/L Normal 133-145 [facility] Comment on above: Performed By: #### L 100.0500, L500.2500 ####[facility] [address] [place], [address] Urea nitrogen [Mass/Vol] 31 mg/dL High 4-19 [facility] Comment on above: Performed By: #### L 100.0500, L500.2500 ####[facility] [address] [place], [address] Bedside Glucoseon 11-28-2024 FINGERSTICK GLU 200 mg/dL High 74-106 [facility] Comment on above: Result Comment: ROSA GEMENT OF PATIENT CARE PER NURSING PROTOCOL Performed By: #### L 501.080 ####[facility] [address] [place], [address] FINGERSTICK GLU 163 mg/dL High 74-106 [facility] Comment on above: Result Comment: ROSA GEMENT OF PATIENT CARE PER NURSING PROTOCOL Performed By: #### L 501.080 ####[facility] [address] [place], [address] FINGERSTICK GLU 178 mg/dL High 74-106 [facility] Comment on above: Result Comment: ROSA GEMENT OF PATIENT CARE PER NURSING PROTOCOL Performed By: #### L 501.080 ####[facility] [address] [place], [address] FINGERSTICK GLU 230 mg/dL High -106 [facility] Comment on above: Result Comment: ROSA GEMENT OF PATIENT CARE PER NURSING PROTOCOL Performed By: #### L 501.080 ####[facility] [address] [place], [address] CBC-Complete Blood Cnt No Di ffon 11-28-2024 Erythrocyte distribution width (RBC) [Ratio] 12.5 % Normal 11.6-14.6 [facility] Comment on above: Performed By: #### L 100.0500, L500.2500 ####[facility] [address] [place], [address] Hematocrit (Bld) [Volume fraction] 30.0 % Low 40-54 [facility] Comment on above: Performed By: #### L 100.0500, L500.2500 ####[facility] [address] [place], [address] Hemoglobin (Bld) [Mass/Vol] 10.3 g/dL Low 13.0-16.5 [facility] Comment on above: Performed By: #### L 100.0500, L500.2500 ####[facility] [address] [place], [address] MCH (RBC) [Entitic mass] 31.2 pg Normal 27.0-32.0 [facility] Comment on above: Performed By: #### L 100.0500, L500.2500 ####[facility] [address] [place], [address] MCHC (RBC) [Mass/Vol] 34.3 g/dL Normal 32-36 [facility] Comment on above: Performed By: #### L 100.0500, L500.2500 ####[facility] [address] [place], [address] MCV (RBC) [Entitic vol] 90.9 fL Normal 80-94 [facility] Comment on above: Performed By: #### L 100.0500, L500.2500 ####[facility] [address] [place], [address] Platelet mean volume (Bld) [Entitic vol] 11.5 fL Normal 6.2-12.0 [facility] Comment on above: Performed By: #### L 100.0500, L500.2500 ####[facility] [address] [place], [address] Platelets (Bld) [#/Vol] 262 10*3/uL Normal 150-450 [facility] Comment on above: Performed By: #### L 100.0500, L500.2500 ####[facility] [address] [place], [address] RBC (Bld) [#/Vol] 3.30 10*6/uL Low 4.6-6.2 [facility] Comment on above: Performed By: #### L 100.0500, L500.2500 ####[facility] [address] [place], [address] RDW SD 40.9 fl Normal 35.1-43.9 [facility] Comment on above: Performed By: #### L 100.0500, L500.2500 ####[facility] [address] [place], [address] WBC (Bld) [#/Vol] 13.4 10*3/uL High 4.4-11.0 [facility] Comment on above: Performed By: #### L 100.0500, L500.2500 ####[facility] [address] [facility] [place], [address] Carbon dioxide, total [Moles /volume] in Central venous bloodOrdered By: Betina James on 11-28-2024 CO2 [Moles/Vol] 18.9 mmol/L Low 21.0-32.0 [facility] Chloride assayOrdered By: Lou James on 11-28-2024 Chloride [Moles/Vol] 108 mmol/L 98-108 [facility] Erythrocyte distribution wid th ratioOrdered By: Betina James on 11-28-2024 Erythrocyte distribution width (RBC) [Ratio] 12.5 % 11.6-14.6 [facility] Erythrocyte distribution wid th standard deviationOrdered By: Betina James on 11-28-2024 Erythrocyte distribution width (RBC) [Ratio] 40.9 fl 35.1-43.9 [facility] Glomerular filtration rate ( GFR) estimation/1.73 sq m using serum, plasma, or whole bOrdered By: Betina James on 11-28-2024 GFR/1.73 sq M.predicted among non-blacks MDRD (S/P/Bld) [Vol rate/Area] 33 mL/min/{1.73_m2} Low >60 [facility] Comment on above: mL/min/1.73m2 CKD-EP I Creatinine Equation (2020) Hematocrit Auto (Bld) [Volum e fraction]Ordered By: Betina James on 11-28-2024 Hematocrit (Bld) [Volume fraction] 30.0 % Low 40-54 [facility] Hemoglobin measurementOrdere d By: Betina James on 11-28-2024 Hemoglobin (Bld) [Mass/Vol] 10.3 g/dL Low 13.0-16.5 [facility] Lumbar Spine 2 or 3 Viewson 11-28-2024 Lumbar Spine 2 or 3 Views Normal [facility] MCV (mean corpuscular volume ) determinationOrdered By: Betina James on 11-28-2024 MCV (RBC) [Entitic vol] 90.9 fL 80-94 [facility] Mean corpuscular hemoglobin (MCH) determinationOrdered By: Betina James on 11-28-2024 MCH (RBC) [Entitic mass] 31.2 pg 27.0-32.0 [facility] Mean corpuscular hemoglobin concentration (MCHC) determinationOrdered By: Betina James on 11-28-2024 MCHC (RBC) [Mass/Vol] 34.3 g/dL 32-36 [facility] Mean platelet volume determi nationOrdered By: Betina James on 11-28-2024 Platelet mean volume (Bld) [Entitic vol] 11.5 fL 6.2-12.0 [facility] Platelet countOrdered By: Lou James on 11-28-2024 Platelets (Bld) [#/Vol] 262 10*3/uL 150-450 [facility] Potassium measurement (mass/ volume)Ordered By: Betina James on 11-28-2024 Potassium (Unsp spec) [Mass/Vol] 4.8 mmol/L 3.3-5.1 [facility] RBC Auto (Bld) [#/Vol]Ordere d By: Betina James on 11-28-2024 RBC (Bld) [#/Vol] 3.30 10*6/uL Low 4.6-6.2 [facility] Serum creatinine measurement (mass/volume)Ordered By: Betina James on 11-28-2024 Creatinine [Mass/Vol] 2.03 mg/dL High 0.70-1.20 [facility] Serum glucose measurement (m ass/volume)Ordered By: Betina James on 11-28-2024 Glucose [Mass/Vol] 243 mg/dL High 70-99 [facility] Serum or plasma calcium ivory urement (mass/volume)Ordered By: Betina James on 11-28-2024 Calcium [Mass/Vol] 8.8 mg/dL 7.6-11.0 [facility] Serum or plasma urea nitroge n measurement (mass/volume)Ordered By: Betina James on 11-28-2024 Urea nitrogen [Mass/Vol] 31 mg/dL High 4-19 [facility] Sodium levelOrdered By: Fernanda brett Erika on 11-28-2024 Sodium [Moles/Vol] 141 mmol/L 133-145 [facility] White blood cell (WBC) count Ordered By: Betina James on 11-28-2024 WBC (Bld) [#/Vol] 13.4 10*3/uL High 4.4-11.0 [facility] Absolute lymphocyte countOrd ered By: Bill Colon on 11-27-2024 Lymphocytes Auto (Unsp spec) [#/Vol] 1.51 10*3/uL 0.83-4.51 [facility] Absolute neutrophil countOrd ered By: Bill Colon on 11-27-2024 Neutrophils (Bld) [#/Vol] 5.7 10*3/uL 2.0-7.7 [facility] Automated lymphocyte count a s percentage of total leukocytesOrdered By: Bill Colon on 11-27-2024 Lymphocytes/100 WBC Auto (Unsp spec) 18.7 % Low 19-41 [facility] Basic Metabolic Profile (BMP )on 11-27-2024 BUN/CRE 16.1 RATIO Normal 10-20 [facility] Comment on above: Performed By: #### L 500.2500, L100.0100 ####[facility] [address] [place], [address] Calcium [Mass/Vol] 8.2 mg/dL Normal 7.6-11.0 [facility] Comment on above: Performed By: #### L 500.2500, L100.0100 ####[facility] [address] [place], [address] Chloride [Moles/Vol] 110 mmol/L High 98-108 [facility] Comment on above: Performed By: #### L 500.2500, L100.0100 ####[facility] [address] [place], [address] CO2 [Moles/Vol] 20.1 mmol/L Low 21.0-32.0 [facility] Comment on above: Performed By: #### L 500.2500, L100.0100 ####[facility] [address] [place], [address] Creatinine [Mass/Vol] 1.78 mg/dL High 0.70-1.20 [facility] Comment on above: Performed By: #### L 500.2500, L100.0100 ####[facility] [address] [place], [address] ECRCL 32.15 ml/min Low 50-250 [facility] Comment on above: Performed By: #### L 500.2500, L100.0100 ####[facility] [address] [place], [address] GAP 10 Normal 5-15 [facility] Comment on above: Performed By: #### L 500.2500, L100.0100 ####[facility] [address] [place], [address] GFR/1.73 sq M.predicted among non-blacks MDRD (S/P/Bld) [Vol rate/Area] 39 mL/min/{1.73_m2} Low >60 [facility] Comment on above: Result Comment: mL/m in/1.73m2 CKD-EPI Creatinine Equation (2020) Performed By: #### L 500.2500, L100.0100 ####[facility] [address] [place], [address] Glucose [Mass/Vol] 137 mg/dL High 70-99 [facility] Comment on above: Performed By: #### L 500.2500, L100.0100 ####[facility] [address] [place], [address] Potassium [Moles/Vol] 4.3 mmol/L Normal 3.3-5.1 [facility] Comment on above: Performed By: #### L 500.2500, L100.0100 ####[facility] [address] [place], [address] Sodium [Moles/Vol] 140 mmol/L Normal 133-145 [facility] Comment on above: Performed By: #### L 500.2500, L100.0100 ####[facility] [address] [place], [address] Urea nitrogen [Mass/Vol] 29 mg/dL High 4-19 [facility] Comment on above: Performed By: #### L 500.2500, L100.0100 ####[facility] [address] [place], [address] Basophil percentageOrdered B y: Billneftali Colon on 11-27-2024 Basophils/100 WBC (Bld) 1.0 % 0-1 [facility] Bedside Glucoseon 11-27-2024 FINGERSTICK GLU 353 mg/dL High 74-106 [facility] Comment on above: Result Comment: ROSA GEMENT OF PATIENT CARE PER NURSING PROTOCOL Performed By: #### L 501.080 ####[facility] [address] [place], [address] FINGERSTICK GLU 252 mg/dL High 74-106 [facility] Comment on above: Result Comment: ROSA GEMENT OF PATIENT CARE PER NURSING PROTOCOL Performed By: #### L 501.080 ####[facility] [address] [place], [address] FINGERSTICK GLU 198 mg/dL High 74-106 [facility] Comment on above: Result Comment: ROSA GEMENT OF PATIENT CARE PER NURSING PROTOCOL Performed By: #### L 501.080 ####[facility] [address] [place], [address] Blood Gases by [facility] 0505-2 025 Base excess Calc (Bld) [Moles/Vol] -5 mmol/L Low -2 to +2 [facility] Comment on above: Performed By: #### L 9000.0800 ####[facility] [address] [place], [address] Blood Gas Type ART Normal [facility] Comment on above: Performed By: #### L 9000.0800 ####[facility] [address] [place], [address] CO2 [Moles/Vol] 22 mmol/L Normal [facility] Comment on above: Performed By: #### L 9000.0800 ####[facility] [address] [place], [address] HCO3 (Bld) [Moles/Vol] 21.2 mmol/L Low 22-26 [facility] Comment on above: Performed By: #### L 9000.0800 ####[facility] [address] [place], [address] Mode SIMV Normal [facility] Comment on above: Performed By: #### L 9000.0800 ####[facility] [address] [place], [address] O2 Delivery Dev Adult Vent Normal [facility] Comment on above: Performed By: #### L 9000.0800 ####[facility] [address] [place], [address] pCO2 39.4 mmHg Normal 35-45 [facility] Comment on above: Performed By: #### L 9000.0800 ####[facility] [address] [place], [address] pH (Bld) 7.34 [pH] Low 7.35-7.45 [facility] Comment on above: Performed By: #### L 9000.0800 ####[facility] [address] [place], [address] PIP 17 Normal [facility] Comment on above: Performed By: #### L 9000.0800 ####[facility] [address] [place], [address] PO2 193 mmHG High 75-100 [facility] Comment on above: Performed By: #### L 9000.0800 ####[facility] [address] [place], [address] RR 10 Normal [facility] Comment on above: Performed By: #### L 9000.0800 ####[facility] [address] [place], [address] SITE Art Line Normal [facility] Comment on above: Performed By: #### L 9000.0800 ####[facility] [address] [place], [address] SO2 100 High 95-99 [facility] Comment on above: Performed By: #### L 9000.0800 ####[facility] [address] [place], [address] Vt 500.0 mL Normal [facility] Comment on above: Performed By: #### L 9000.0800 ####[facility] [address] [place], [address] Base excess Calc (Bld) [Moles/Vol] -5 mmol/L Low -2 to +2 [facility] Comment on above: Performed By: #### L 9000.0800 ####[facility] [address] [place], [address] Blood Gas Type ART [facility] Comment on above: Performed By: #### L 9000.0800 ####[facility] [address] [place], [address] CO2 [Moles/Vol] 23 mmol/L [facility] Comment on above: Performed By: #### L 9000.0800 ####[facility] [address] [place], [address] FI02 60.0 [facility] Comment on above: Performed By: #### L 9000.0800 ####[facility] [address] [place], [address] HCO3 (Bld) [Moles/Vol] 21.2 mmol/L Low 22-26 [facility] Comment on above: Performed By: #### L 9000.0800 ####[facility] [address] [place], [address] Mode Not entered [facility] Comment on above: Performed By: #### L 9000.0800 ####[facility] [address] [place], [address] O2 Delivery Dev Not entered [facility] Comment on above: Performed By: #### L 9000.0800 ####[facility] [address] [place], [address] pCO2 43.9 mmHg Normal 35-45 [facility] Comment on above: Performed By: #### L 9000.0800 ####[facility] [address] [place], [address] pH (Bld) 7.29 [pH] Low 7.35-7.45 [facility] Comment on above: Performed By: #### L 9000.0800 ####[facility] [address] [place], [address] PO2 187 mmHG High 75-100 [facility] Comment on above: Performed By: #### L 9000.0800 ####[facility] [address] [place], [address] SITE Art Line Normal [facility] Comment on above: Performed By: #### L 9000.0800 ####[facility] [address] [place], [address] SO2 100 High 95-99 [facility] Comment on above: Performed By: #### L 9000.0800 ####[facility] [address] [place], [address] Blood base excess determinat ionOrdered By: Bill Colon on 11-27-2024 Base excess Calc (BldV) [Moles/Vol] -5 mmol/L Low -2-2 [facility] Blood bicarbonate measuremen tOrdered By: Bill Colon on 11-27-2024 HCO3 (Bld) [Moles/Vol] 21.2 mmol/L Low 22-26 [facility] CBC W/Diff, Automatedon Absolute Lymph 1.51 X10 3/uL Normal 0.83-4.51 [facility] Comment on above: Performed By: #### L 500.2500, L100.0100 ####[facility] [address] [place], [address] Absolute Neut 5.7 X10 3/uL Normal 2.0-7.7 [facility] Comment on above: Performed By: #### L 500.2500, L100.0100 ####[facility] [address] [place], [address] Basophils/100 WBC (Bld) 1.0 % Normal 0-1 [facility] Comment on above: Performed By: #### L 500.2500, L100.0100 ####[facility] [address] [place], [address] Eosinophils/100 WBC (Bld) 2.5 % Normal 0-5 [facility] Comment on above: Performed By: #### L 500.2500, L100.0100 ####[facility] [address] [place], [address] Erythrocyte distribution width (RBC) [Ratio] 12.4 % Normal 11.6-14.6 [facility] Comment on above: Performed By: #### L 500.2500, L100.0100 ####[facility] [address] [place], [address] Hematocrit (Bld) [Volume fraction] 29.6 % Low 40-54 [facility] Comment on above: Performed By: #### L 500.2500, L100.0100 ####[facility] [address] [place], [address] Hemoglobin (Bld) [Mass/Vol] 10.2 g/dL Low 13.0-16.5 [facility] Comment on above: Performed By: #### L 500.2500, L100.0100 ####[facility] [address] [place], [address] IG% 0.700 Normal 0.0-0.9 [facility] Comment on above: Result Comment: IG% - Immature Granulocytes (promyelocytes, myelocytes andmetamyelocytes) > 1% indicates that a LEFT SHIFT is Present. Performed By: #### L 500.2500, L100.0100 ####[facility] [address] [place], [address] Lymphocytes/100 WBC (Bld) 18.7 % Low 19-41 [facility] Comment on above: Performed By: #### L 500.2500, L100.0100 ####[facility] [address] [place], [address] MCH (RBC) [Entitic mass] 31.7 pg Normal 27.0-32.0 [facility] Comment on above: Performed By: #### L 500.2500, L100.0100 ####[facility] [address] [place], [address] MCHC (RBC) [Mass/Vol] 34.5 g/dL Normal 32-36 [facility] Comment on above: Performed By: #### L 500.2500, L100.0100 ####[facility] [address] [place], [address] MCV (RBC) [Entitic vol] 91.9 fL Normal 80-94 [facility] Comment on above: Performed By: #### L 500.2500, L100.0100 ####[facility] [address] [place], [address] Monocytes/100 WBC (Bld) 7.2 % Normal 0-10 [facility] Comment on above: Performed By: #### L 500.2500, L100.0100 ####[facility] [address] [place], [address] Neutrophils/100 WBC (Bld) 69.9 % Normal 47-70 [facility] Comment on above: Performed By: #### L 500.2500, L100.0100 ####[facility] [address] [place], [address] Nucleated RBC (Bld) [#/Vol] 0 10*3/uL Normal 0-5 [facility] Comment on above: Performed By: #### L 500.2500, L100.0100 ####[facility] [address] [place], [address] Platelet mean volume (Bld) [Entitic vol] 10.7 fL Normal 6.2-12.0 [facility] Comment on above: Performed By: #### L 500.2500, L100.0100 ####[facility] [address] [place], [address] Platelets (Bld) [#/Vol] 249 10*3/uL Normal 150-450 [facility] Comment on above: Performed By: #### L 500.2500, L100.0100 ####[facility] [address] [place], [address] RBC (Bld) [#/Vol] 3.22 10*6/uL Low 4.6-6.2 [facility] Comment on above: Performed By: #### L 500.2500, L100.0100 ####[facility] [address] [place], [address] RDW SD 41.6 fl Normal 35.1-43.9 [facility] Comment on above: Performed By: #### L 500.2500, L100.0100 ####[facility] [address] [place], [address] WBC (Bld) [#/Vol] 8.1 10*3/uL Normal 4.4-11.0 [facility] Comment on above: Performed By: #### L 500.2500, L100.0100 ####[facility] [address] [place], [address] Eosinophil percentageOrdered By: Bill Colon on 11-27-2024 Eosinophils/100 WBC (Bld) 2.5 % 0-5 [facility] Immature granulocytes/100 WB C Auto (Bld)Ordered By: Bill Colon on 11-27-2024 Immature granulocytes/100 WBC (Bld) 0.700 % 0.0-0.9 [facility] Comment on above: IG% - Immature Granu locytes (promyelocytes, myelocytes and metamyelocytes) > 1% indicates that a LEFT SHIFT is Present. Lumbar Spine 2 or 3 Viewson 11-27-2024 Lumbar Spine 2 or 3 Views Normal [facility] MR/POSTOP.ANEon 11-27-2024 MR/POSTOP.ANE Normal [facility] MR/[id number] 11-27-2024 MR/POSTOPAN2 Normal [facility] Measurement, pHOrdered By: Dick Colon on 11-27-2024 pH (Unsp spec) 7.34 [pH] Low 7.35-7.45 [facility] Monocyte percentageOrdered B y: Bill Colon on 11-27-2024 Monocytes/100 WBC (Bld) 7.2 % 0-10 [facility] Neutrophil percentageOrdered By: Bill Colon on 11-27-2024 Neutrophils/100 WBC (Bld) 69.9 % 47-70 [facility] No Panel InformationOrdered By: Bill Colon on 11-27-2024 Bld Gas Peak Inspiratory Pressure 17 [facility] Blood Gas Respiration Rate 10 [facility] Blood Gas Sample Site [facility] Blood Gas Specimen Type ART [facility] Blood Gas Tidal Volume 500.0 mL [facility] Blood Gas Vent Mode [facility] Oxygen Delivery Device Adult Vent [facility] Art Line [facility] Adult Vent [facility] 500.0 mL [facility] 17 [facility] 10 [facility] Nucleated red blood cell per centageOrdered By: Bill Colon on 11-27-2024 Nucleated RBC/100 WBC (Bld) [Ratio] 0 % 0-5 [facility] Operative Reporton Operative Report Normal [facility] Operative Report Normal [facility] Total carbon dioxide measure mentOrdered By: Bill Colon on 11-27-2024 CO2 [Moles/Vol] 22 mmol/L [facility] Type AND Screenon 11-27-2024 Ab SCREEN GEL Negative Normal [facility] Comment on above: Order Comment: S Performed By: #### B TS ####[facility] [address] [place], [place], [id number] Anion gap in Serum or Plasma Ordered By: Rita Garcia on 11-22-2024 Anion gap [Moles/Vol] 14 mmol/L 5- [facility] BUN/creatinine ratioOrdered By: Rita Garcia on 11-22-2024 Urea nitrogen/Creatinine [Mass ratio] 16.2 mg/mg - [facility] Basic Metabolic Profile (BMP )on 11-22-2024 BUN/CRE 16.2 RATIO Normal 10-20 [facility] Comment on above: Performed By: #### L 500.2500 ####[facility] [id number] [place], [address] Calcium [Mass/Vol] 9.5 mg/dL Normal 7.6-11.0 [facility] Comment on above: Performed By: #### L 500.2500 ####[facility] [id number] [place], [address] Chloride [Moles/Vol] 110 mmol/L High 98-108 [facility] Comment on above: Performed By: #### L 500.2500 ####[facility] [address] [place], [address] CO2 [Moles/Vol] 19.4 mmol/L Low 21.0-32.0 [facility] Comment on above: Performed By: #### L 500.2500 ####[facility] [address] [place], [address] Creatinine [Mass/Vol] 2.09 mg/dL High 0.70-1.20 [facility] Comment on above: Performed By: #### L 500.2500 ####[facility] [address] [place], [address] GAP 14 Normal 5-15 [facility] Comment on above: Performed By: #### L 500.2500 ####[facility] [address] [place], [address] GFR/1.73 sq M.predicted among non-blacks MDRD (S/P/Bld) [Vol rate/Area] 32 mL/min/{1.73_m2} Low >60 [facility] Comment on above: Result Comment: mL/m in/1.73m2 CKD-EPI Creatinine Equation (2020) Performed By: #### L 500.2500 ####[facility] [address] [place], [address] Glucose [Mass/Vol] 99 mg/dL Normal 70-99 [facility] Comment on above: Performed By: #### L 500.2500 ####[facility] [address] [place], [address] Potassium [Moles/Vol] 4.7 mmol/L Normal 3.3-5.1 [facility] Comment on above: Performed By: #### L 500.2500 ####[facility] [address] [place], [address] Sodium [Moles/Vol] 143 mmol/L Normal 133-145 [facility] Comment on above: Performed By: #### L 500.2500 ####[facility] [address] [place], [address] Urea nitrogen [Mass/Vol] 34 mg/dL High 4-19 [facility] Comment on above: Performed By: #### L 500.2500 ####[facility] [address] [place], [address] Carbon dioxide, total [Moles /volume] in Central venous bloodOrdered By: Rita Garcia on 11-22-2024 CO2 [Moles/Vol] 19.4 mmol/L Low 21.0-32.0 [facility] Chloride assayOrdered By: Jian Garcia on 11-22-2024 Chloride [Moles/Vol] 110 mmol/L High 98-108 [facility] Glomerular filtration rate ( GFR) estimation/1.73 sq m using serum, plasma, or whole bOrdered By: Rita Garcia on 11-22-2024 GFR/1.73 sq M.predicted among non-blacks MDRD (S/P/Bld) [Vol rate/Area] 32 mL/min/{1.73_m2} Low >60 [facility] Comment on above: mL/min/1.73m2 CKD-EP I Creatinine Equation (2020) Potassium measurement (mass/ volume)Ordered By: Rita Garcia on 11-22-2024 Potassium (Unsp spec) [Mass/Vol] 4.7 mmol/L 3.3-5.1 [facility] Serum creatinine measurement (mass/volume)Ordered By: Rita Garcia on 11-22-2024 Creatinine [Mass/Vol] 2.09 mg/dL High 0.70-1.20 [facility] Serum glucose measurement (m ass/volume)Ordered By: Rita Garcia on 11-22-2024 Glucose [Mass/Vol] 99 mg/dL 70-99 [facility] Serum or plasma calcium ivory urement (mass/volume)Ordered By: Rita Garcia on 11-22-2024 Calcium [Mass/Vol] 9.5 mg/dL 7.6-11.0 [facility] Serum or plasma urea nitroge n measurement (mass/volume)Ordered By: Rita Garcia on 11-22-2024 Urea nitrogen [Mass/Vol] 34 mg/dL High 4-19 [facility] Sodium levelOrdered By: Rita Garcia on 11-22-2024 Sodium [Moles/Vol] 143 mmol/L 133-145 [facility] MR/PAT.ANEon 11-14-2024 MR/PAT.ANE Normal [facility] Anion gap in Serum or Plasma Ordered By: Rita Garcia on 11-13-2024 Anion gap [Moles/Vol] 14 mmol/L - [facility] BUN/creatinine ratioOrdered By: Rtia Garcia on 11-13-2024 Urea nitrogen/Creatinine [Mass ratio] 17.9 mg/mg - [facility] Basic Metabolic Profile (BMP )on 11-13-2024 BUN/CRE 17.9 RATIO Normal 05-14 [facility] Comment on above: Performed By: #### L 500.2500 ####[facility] [address] [place], [place], [address] Calcium [Mass/Vol] 9.6 mg/dL Normal 7.6-11.0 [facility] Comment on above: Performed By: #### L 500.2500 ####[facility] [address] [place], [address] Chloride [Moles/Vol] 100 mmol/L Normal 98-108 [facility] Comment on above: Performed By: #### L 500.2500 ####[facility] [address] [place], [address] CO2 [Moles/Vol] 22.5 mmol/L Normal 21.0-32.0 [facility] Comment on above: Performed By: #### L 500.2500 ####[facility] [address] [place], [address] Creatinine [Mass/Vol] 2.57 mg/dL High 0.70-1.20 [facility] Comment on above: Performed By: #### L 500.2500 ####[facility] [address] [place], [address] GAP 14 Normal 5-15 [facility] Comment on above: Performed By: #### L 500.2500 ####[facility] [address] [place], [address] GFR/1.73 sq M.predicted among non-blacks MDRD (S/P/Bld) [Vol rate/Area] 25 mL/min/{1.73_m2} Low >60 [facility] Comment on above: Result Comment: mL/m in/1.73m2 CKD-EPI Creatinine Equation (2020) Performed By: #### L 500.2500 ####[facility] [address] [place], [address] Glucose [Mass/Vol] 158 mg/dL High 70-99 [facility] Comment on above: Performed By: #### L 500.2500 ####[facility] [address] [place], [address] Potassium [Moles/Vol] 5.1 mmol/L Normal 3.3-5.1 [facility] Comment on above: Performed By: #### L 500.2500 ####[facility] [address] [place], [place], [address] Sodium [Moles/Vol] 136 mmol/L Normal 133-145 [facility] Comment on above: Performed By: #### L 500.2500 ####[facility] [address] [place], [address] Urea nitrogen [Mass/Vol] 46 mg/dL High 4-19 [facility] Comment on above: Performed By: #### L 500.2500 ####[facility] [address] [place], [address] Carbon dioxide, total [Moles /volume] in Central venous bloodOrdered By: Rita Garcia on 11-13-2024 CO2 [Moles/Vol] 22.5 mmol/L 21.0-32.0 [facility] Chloride assayOrdered By: Jian Garcia on 11-13-2024 Chloride [Moles/Vol] 100 mmol/L 98-108 [facility] GFR/1.73 sq M.predicted sylvia g non-blacks MDRD (S/P/Bld) [Vol rate/Area]Ordered By: Rita Garcia on 11-13-2024 Estimated GFR (MDRD) Non-Af Amer 25 Low >60 [facility] Comment on above: mL/min/1.73m2 CKD-EP I Creatinine Equation (2020) Glomerular filtration rate ( GFR) estimation/1.73 sq m using serum, plasma, or whole bOrdered By: Rita Garcia on 11-13-2024 GFR/1.73 sq M.predicted among non-blacks MDRD (S/P/Bld) [Vol rate/Area] 25 mL/min/{1.73_m2} Low >60 [facility] Comment on above: mL/min/1.73m2 CKD-EP I Creatinine Equation (2020) Potassium (Unsp spec) [Mass/ Vol]Ordered By: Rita Garcia on 11-13-2024 Potassium [Moles/Vol] 5.1 mmol/L 3.3-5.1 [facility] Potassium measurement (mass/ volume)Ordered By: Rita Garcia on 11-13-2024 Potassium (Unsp spec) [Mass/Vol] 5.1 mmol/L 3.3-5.1 [facility] Serum creatinine measurement (mass/volume)Ordered By: Rita Garcia on 11-13-2024 Creatinine [Mass/Vol] 2.57 mg/dL High 0.70-1.20 [facility] Serum glucose measurement (m ass/volume)Ordered By: Rita Garcia on 11-13-2024 Glucose [Mass/Vol] 158 mg/dL High 70-99 [facility] Serum or plasma calcium ivroy urement (mass/volume)Ordered By: Rita Garcia on 11-13-2024 Calcium [Mass/Vol] 9.6 mg/dL 7.6-11.0 [facility] Serum or plasma urea nitroge n measurement (mass/volume)Ordered By: Rita Garcia on 11-13-2024 Urea nitrogen [Mass/Vol] 46 mg/dL High 4-19 [facility] Sodium levelOrdered By: Rita Garcia on 11-13-2024 Sodium [Moles/Vol] 136 mmol/L 133-145 [facility] Anion gap in Serum or Plasma Ordered By: Trinity Coronado on 11-09-2024 Anion gap [Moles/Vol] 10 mmol/L 5-15 [facility] BUN/creatinine ratioOrdered By: Trinity Coronado on 11-09-2024 Urea nitrogen/Creatinine [Mass ratio] 12.8 mg/mg 10- [facility] Basic Metabolic Profile (BMP )on 11-09-2024 BUN/CRE 12.8 RATIO Normal - [facility] Comment on above: Performed By: #### L 500.2500 ####[facility] [address] [place], [address] Calcium [Mass/Vol] 9.4 mg/dL Normal 7.6-11.0 [facility] Comment on above: Performed By: #### L 500.2500 ####[facility] [address] [place], [address] Chloride [Moles/Vol] 107 mmol/L Normal 98-108 [facility] Comment on above: Performed By: #### L 500.2500 ####[facility] [address] [place], [address] CO2 [Moles/Vol] 21.6 mmol/L Normal 21.0-32.0 [facility] Comment on above: Performed By: #### L 500.2500 ####[facility] [address] [place], [address] Creatinine [Mass/Vol] 1.91 mg/dL High 0.70-1.20 [facility] Comment on above: Performed By: #### L 500.2500 ####[facility] [address] [place], [address] GAP 10 Normal 5-15 [facility] Comment on above: Performed By: #### L 500.2500 ####[facility] [address] [place], [address] GFR/1.73 sq M.predicted among non-blacks MDRD (S/P/Bld) [Vol rate/Area] 35 mL/min/{1.73_m2} Low >60 [facility] Comment on above: Result Comment: mL/m in/1.73m2 CKD-EPI Creatinine Equation (2020) Performed By: #### L 500.2500 ####[facility] [address] [place], [address] Glucose [Mass/Vol] 195 mg/dL High 70-99 [facility] Comment on above: Performed By: #### L 500.2500 ####[facility] [address] [place], [address] Potassium [Moles/Vol] 6.0 mmol/L Invalid Interpretation Code 3.3-5.1 [facility] Comment on above: Result Comment: Crit ical Result(s) Called at 1413: by: MARSHALL GARCIA. ??Results read back by same. Performed By: #### L 500.2500 ####[facility] [address] [place], [place], [address] Sodium [Moles/Vol] 138 mmol/L Normal 133-145 [facility] Comment on above: Performed By: #### L 500.2500 ####[facility] [address] [place], [place], [address] Urea nitrogen [Mass/Vol] 25 mg/dL High 4-19 [facility] Comment on above: Performed By: #### L 500.2500 ####[facility] [address] [place], [place], [address] Carbon dioxide, total [Moles /volume] in Central venous bloodOrdered By: Trinity Coronado on 11-09-2024 CO2 [Moles/Vol] 21.6 mmol/L 21.0-32.0 [facility] Chloride assayOrdered By: Ra gisela Coronado on 11-09-2024 Chloride [Moles/Vol] 107 mmol/L 98-108 [facility] GFR/1.73 sq M.predicted sylvia g non-blacks MDRD (S/P/Bld) [Vol rate/Area]Ordered By: Trinity Coronado on 11-09-2024 Estimated GFR (MDRD) Non-Af Amer 35 Low >60 [facility] Comment on above: mL/min/1.73m2 CKD-EP I Creatinine Equation (2020) Glomerular filtration rate ( GFR) estimation/1.73 sq m using serum, plasma, or whole bOrdered By: Trinity Coronado on 11-09-2024 GFR/1.73 sq M.predicted among non-blacks MDRD (S/P/Bld) [Vol rate/Area] 35 mL/min/{1.73_m2} Low >60 [facility] Comment on above: mL/min/1.73m2 CKD-EP I Creatinine Equation (2020) Potassium (Unsp spec) [Mass/ Vol]Ordered By: Trinity Coronado on 11-09-2024 Potassium [Moles/Vol] 6.0 mmol/L High 3.3-5.1 [facility] Comment on above: Critical Result(s) C alled at 1413: by: MARSHALL STANFORD TO KFISCUS. Results read back by same. Potassium measurement (mass/ volume)Ordered By: Trinity Coronado on 11-09-2024 Potassium (Unsp spec) [Mass/Vol] 6.0 mmol/L High 3.3-5.1 [facility] Comment on above: Critical Result(s) C alled at 1413: by: MARSHALL STANFORD TO KFISCUS. Results read back by same. Serum creatinine measurement (mass/volume)Ordered By: Trinity Coronado on 11-09-2024 Creatinine [Mass/Vol] 1.91 mg/dL High 0.70-1.20 [facility] Serum glucose measurement (m ass/volume)Ordered By: Trinity Coronado on 11-09-2024 Glucose [Mass/Vol] 195 mg/dL High 70-99 [facility] Serum or plasma calcium ivory urement (mass/volume)Ordered By: Trinity Coronado on 11-09-2024 Calcium [Mass/Vol] 9.4 mg/dL 7.6-11.0 [facility] Serum or plasma urea nitroge n measurement (mass/volume)Ordered By: Trinity Coronado on 11-09-2024 Urea nitrogen [Mass/Vol] 25 mg/dL High 4-19 [facility] Sodium levelOrdered By: Eileen Coronado on 11-09-2024 Sodium [Moles/Vol] 138 mmol/L 133-145 [facility] Hepatitis A AB, Totalon 10-24 HEPATITIS A,TOT Positive Abnormal Negative [facility] Comment on above: Result Comment: Comm ent: The HAV total antibody assay detects both IgG andIgM but does not differentiate between them. A negativeresult suggests susceptibility to infection. A positiveresult could be due to vaccination, previously resolvedinfection or active infection. Testing for HAV IgM shouldbe performed if active HAV infection is suspected. [facility]ers profiles that will automatically reflex positive HAVtotal antibody results to IgM (e.g., panel #[id number] HAVAntibody w/ Rfx).Performed at: [address] [id number] Director: Trav Dover PhD, Phone: [phone] Performed By: #### L 100.0100, L501.5200, L3100.0300, L3890.6301, BTSPAT, L3890.6006, L500.2500, L3890.6202, M100.651 ####[facility] [address] [place], [address] Electrocardiogram reportOrde red By: Stevenson Hernández on 11-03-2024 EKG study [facility] Cardiovascular Services [address] [place] [address] 12 Lead EKG 11/02/24 1223 MR#: [id number] Acct: [id number] Name: JOAO BARNETT Rep #:[id number] 5 : 1945 79 From: Stevenson Hernández MD Attending Dr: Dr. Bill Colon MD Status: PRE IN Ordering Dr: Bill Colon MD Date: Location: [facility] Sex: M C Admitted: Test Reason : PRE OP Blood Pressure : */* mmHG Vent. Rate : 69 BPM Atrial Rate : 69 BPM P-R Int : 140 ms QRS Dur : 134 ms QT Int : 426 ms P-R-T Axes : 20 -47 101 degrees QTcB Int : 456 ms Normal sinus rhythm Left axis deviation Left bundle branch block Abnormal ECG Confirmed by STEVENSON HERNÁNDEZ MD ([id number]), story editor EILEEN ABDULLAHI ([id number]) on 57:00:29 AM Referred By: Bill Colon Confirmed By: STEVENSON HERNÁNDEZ MD 11/03/24 0700 Date _ Stevenson Hernández MD CC: WINDOW ASSEMBLERJulieta Coronado; Dr. Bill Colon MD ~ Signed [facility] Work Phone: MR/PAT.ANEon 11-03-2024 MR/PAT.ANE Normal [facility] MRSA/SAID NASAL SCREENon MRSA+SAID SCRN Reason for Exam: Surgery MRSA MRSA Negative S. AUREUS S. aureus Negative Normal [facility] Comment on above: Performed By: #### L 100.0100, L501.5200, L3100.0300, L3890.6301, BTSPAT, L3890.6006, L500.2500, L3890.6202, M100.651 ####[facility] [address] [place], [address] Orthopedic Visit Reporton Orthopedic Visit Report Normal [facility] 12 Lead EKGon 11-02-2024 12 Lead EKG Normal [facility] Basic Metabolic Profile (BMP )on 11-02-2024 BUN/CRE 13.9 RATIO Normal 10-20 [facility] Comment on above: Performed By: #### L 100.0100, L501.5200, L3100.0300, L3890.6301, BTSPAT, L3890.6006, L500.2500, L3890.6202, M100.651 ####[facility] [address] [place], [address] Calcium [Mass/Vol] 9.6 mg/dL Normal 7.6-11.0 [facility] Comment on above: Performed By: #### L 100.0100, L501.5200, L3100.0300, L3890.6301, BTSPAT, L3890.6006, L500.2500, L3890.6202, M100.651 ####[facility] [address] [place], [address] Chloride [Moles/Vol] 108 mmol/L Normal 98-108 [facility] Comment on above: Performed By: #### L 100.0100, L501.5200, L3100.0300, L3890.6301, BTSPAT, L3890.6006, L500.2500, L3890.6202, M100.651 ####[facility] [address] [place], [address] CO2 [Moles/Vol] 20.3 mmol/L Low 21.0-32.0 [facility] Comment on above: Performed By: #### L 100.0100, L501.5200, L3100.0300, L3890.6301, BTSPAT, L3890.6006, L500.2500, L3890.6202, M100.651 ####[facility] [address] [place], [address] Creatinine [Mass/Vol] 2.37 mg/dL High 0.70-1.20 [facility] Comment on above: Performed By: #### L 100.0100, L501.5200, L3100.0300, L3890.6301, BTSPAT, L3890.6006, L500.2500, L3890.6202, M100.651 ####[facility] [address] [place], [place], [address] GAP 13 Normal 5-15 [facility] Comment on above: Performed By: #### L 100.0100, L501.5200, L3100.0300, L3890.6301, BTSPAT, L3890.6006, L500.2500, L3890.6202, M100.651 ####[facility] [address] [place], [place], [address] GFR/1.73 sq M.predicted among non-blacks MDRD (S/P/Bld) [Vol rate/Area] 27 mL/min/{1.73_m2} Low >60 [facility] Comment on above: Result Comment: mL/m in/1.73m2 CKD-EPI Creatinine Equation (2020) Performed By: #### L 100.0100, L501.5200, L3100.0300, L3890.6301, BTSPAT, L3890.6006, L500.2500, L3890.6202, M100.651 ####[facility] [address] [place], [address] Glucose [Mass/Vol] 104 mg/dL High 70-99 [facility] Comment on above: Performed By: #### L 100.0100, L501.5200, L3100.0300, L3890.6301, BTSPAT, L3890.6006, L500.2500, L3890.6202, M100.651 ####[facility] [address] [place], [address] Potassium [Moles/Vol] 6.1 mmol/L Invalid Interpretation Code 3.3-5.1 [facility] Comment on above: Result Comment: Crit ical Result(s) Called at: 1508 by: CONY??Results read back by same. Performed By: #### L 100.0100, L501.5200, L3100.0300, L3890.6301, BTSPAT, L3890.6006, L500.2500, L3890.6202, M100.651 ####[facility] [address] [place], [address] Sodium [Moles/Vol] 141 mmol/L Normal 133-145 [facility] Comment on above: Performed By: #### L 100.0100, L501.5200, L3100.0300, L3890.6301, BTSPAT, L3890.6006, L500.2500, L3890.6202, M100.651 ####[facility] [address] [place], [address] Urea nitrogen [Mass/Vol] 33 mg/dL High 4-19 [facility] Comment on above: Performed By: #### L 100.0100, L501.5200, L3100.0300, L3890.6301, BTSPAT, L3890.6006, L500.2500, L3890.6202, M100.651 ####[facility] [address] [place], [address] CBC W/Diff, Automatedon 04- 0-2024 Absolute Lymph 1.65 X10 3/uL Normal 0.83-4.51 [facility] Comment on above: Performed By: #### L 100.0100, L501.5200, L3100.0300, L3890.6301, BTSPAT, L3890.6006, L500.2500, L3890.6202, M100.651 ####[facility] [address] [place], [address] Absolute Neut 3.8 X10 3/uL Normal 2.0-7.7 [facility] Comment on above: Performed By: #### L 100.0100, L501.5200, L3100.0300, L3890.6301, BTSPAT, L3890.6006, L500.2500, L3890.6202, M100.651 ####[facility] [address] [place], [address] Basophils/100 WBC (Bld) 2.0 % High 0-1 [facility] Comment on above: Performed By: #### L 100.0100, L501.5200, L3100.0300, L3890.6301, BTSPAT, L3890.6006, L500.2500, L3890.6202, M100.651 ####[facility] [address] [place], [address] Eosinophils/100 WBC (Bld) 4.2 % Normal 0-5 [facility] Comment on above: Performed By: #### L 100.0100, L501.5200, L3100.0300, L3890.6301, BTSPAT, L3890.6006, L500.2500, L3890.6202, M100.651 ####[facility] [address] [place], [address] Erythrocyte distribution width (RBC) [Ratio] 12.6 % Normal 11.6-14.6 [facility] Comment on above: Performed By: #### L 100.0100, L501.5200, L3100.0300, L3890.6301, BTSPAT, L3890.6006, L500.2500, L3890.6202, M100.651 ####[facility] [address] [place], [address] Hematocrit (Bld) [Volume fraction] 39.2 % Low 40-54 [facility] Comment on above: Performed By: #### L 100.0100, L501.5200, L3100.0300, L3890.6301, BTSPAT, L3890.6006, L500.2500, L3890.6202, M100.651 ####[facility] [address] [place], [address] Hemoglobin (Bld) [Mass/Vol] 12.9 g/dL Low 13.0-16.5 [facility] Comment on above: Performed By: #### L 100.0100, L501.5200, L3100.0300, L3890.6301, BTSPAT, L3890.6006, L500.2500, L3890.6202, M100.651 ####[facility] [address] [place], [address] IG% 0.300 Normal 0.0-0.9 [facility] Comment on above: Result Comment: IG% - Immature Granulocytes (promyelocytes, myelocytes andmetamyelocytes) > 1% indicates that a LEFT SHIFT is Present. Performed By: #### L 100.0100, L501.5200, L3100.0300, L3890.6301, BTSPAT, L3890.6006, L500.2500, L3890.6202, M100.651 ####[facility] [address] [place], [address] Lymphocytes/100 WBC (Bld) 25.8 % Normal 19-41 [facility] Comment on above: Performed By: #### L 100.0100, L501.5200, L3100.0300, L3890.6301, BTSPAT, L3890.6006, L500.2500, L3890.6202, M100.651 ####[facility] [address] [place], [address] MCH (RBC) [Entitic mass] 31.3 pg Normal 27.0-32.0 [facility] Comment on above: Performed By: #### L 100.0100, L501.5200, L3100.0300, L3890.6301, BTSPAT, L3890.6006, L500.2500, L3890.6202, M100.651 ####[facility] [address] [place], [address] MCHC (RBC) [Mass/Vol] 32.9 g/dL Normal 32-36 [facility] Comment on above: Performed By: #### L 100.0100, L501.5200, L3100.0300, L3890.6301, BTSPAT, L3890.6006, L500.2500, L3890.6202, M100.651 ####[facility] [address] [place], [address] MCV (RBC) [Entitic vol] 95.1 fL High 80-94 [facility] Comment on above: Performed By: #### L 100.0100, L501.5200, L3100.0300, L3890.6301, BTSPAT, L3890.6006, L500.2500, L3890.6202, M100.651 ####[facility] [address] [place], [address] Monocytes/100 WBC (Bld) 8.9 % Normal 0-10 [facility] Comment on above: Performed By: #### L 100.0100, L501.5200, L3100.0300, L3890.6301, BTSPAT, L3890.6006, L500.2500, L3890.6202, M100.651 ####[facility] [address] [place], [address] Neutrophils/100 WBC (Bld) 58.8 % Normal 47-70 [facility] Comment on above: Performed By: #### L 100.0100, L501.5200, L3100.0300, L3890.6301, BTSPAT, L3890.6006, L500.2500, L3890.6202, M100.651 ####[facility] [address] [place], [address] Nucleated RBC (Bld) [#/Vol] 0 10*3/uL Normal 0-5 [facility] Comment on above: Performed By: #### L 100.0100, L501.5200, L3100.0300, L3890.6301, BTSPAT, L3890.6006, L500.2500, L3890.6202, M100.651 ####[facility] [address] [place], [address] Platelet mean volume (Bld) [Entitic vol] 11.3 fL Normal 6.2-12.0 [facility] Comment on above: Performed By: #### L 100.0100, L501.5200, L3100.0300, L3890.6301, BTSPAT, L3890.6006, L500.2500, L3890.6202, M100.651 ####[facility] [address] [place], [address] Platelets (Bld) [#/Vol] 323 10*3/uL Normal 150-450 [facility] Comment on above: Performed By: #### L 100.0100, L501.5200, L3100.0300, L3890.6301, BTSPAT, L3890.6006, L500.2500, L3890.6202, M100.651 ####[facility] [address] [place], [address] RBC (Bld) [#/Vol] 4.12 10*6/uL Low 4.6-6.2 [facility] Comment on above: Performed By: #### L 100.0100, L501.5200, L3100.0300, L3890.6301, BTSPAT, L3890.6006, L500.2500, L3890.6202, M100.651 ####[facility] [address] [place], [address](632) RDW SD 43.7 fl Normal 35.1-43.9 [facility] Comment on above: Performed By: #### L 100.0100, L501.5200, L3100.0300, L3890.6301, BTSPAT, L3890.6006, L500.2500, L3890.6202, M100.651 ####[facility] [address] [place], [address] WBC (Bld) [#/Vol] 6.4 10*3/uL Normal 4.4-11.0 [facility] Comment on above: Performed By: #### L 100.0100, L501.5200, L3100.0300, L3890.6301, BTSPAT, L3890.6006, L500.2500, L3890.6202, M100.651 ####[facility] [address] [place], [place], [id number] HIVon 11-02-2024 HIV Non-Reactive Normal Nonreactive [facility] Comment on above: Result Comment: Non- ReactiveReactiveRepeatedly reactive samples must be confirmed according toCDC recommended confirmatory algorithms. The subresults foreither HIVAG or AHIV can be used as an aid in the selectionof the confirmation algorithm for reactive samples.Send out specimens with Reactive results to [facility] forconfirmation.Order the HIV antibody detection and differentiation:lc#[id number] Performed By: #### L 100.0100, L501.5200, L3100.0300, L3890.6301, BTSPAT, L3890.6006, L500.2500, L3890.6202, M100.651 ####[facility] [address] [place], [address] Hemoglobin A1con 11-02-2024 HbA1c (Bld) [Mass fraction] 5.8 % Normal <=5.6 [facility] Comment on above: Performed By: #### L 501.9985 ####[facility] [address] [place], [address] Hemoglobin A1c percentageOrd ered By: Yosef Tijerina on 11-02-2024 HbA1c (Bld) [Mass fraction] 5.8 % >5.7 [facility] Hepatitis B Surface Antibody on 11-02-2024 HEP B Surf Ab REAC Normal [facility] Comment on above: Result Comment: <8.5 mIU/mL: Non-Reactive8.5<= x <11.5 mIU/mL: Indeterminate>=11.5 mIU/mL: Reactive Non Reactive: Inconsistent with immunity less than <10 mIU/mL Reactive: Consistent with immunity greater than or equal to 10 mIU/mL Performed By: #### L 100.0100, L501.5200, L3100.0300, L3890.6301, BTSPAT, L3890.6006, L500.2500, L3890.6202, M100.651 ####[facility] [address] [place], [address] Hepatitis C Antibodyon 11-02 Hepatitis C Ab Non-Reactive Normal Nonreactive [facility] Comment on above: Result Comment: Reac tive: Presumptive evidence of antibodies to HCV. FollowC recommendations for supplemental testing.Non-Reactive: Antibodies to HCV were not detected; does notexclude the possibility of exposure to HCVReactive Results are presumptive evidence of antibodies toHCV. Follow CDC recommendations for supplemental testing.Order confirmation testing: HCV Quant by PCR testing -HCVPCR #[id number] Non Reactive: < 0.8 Equivocal: >/= 0.8 to < 1.0 Reactive: >/= 1.0The CDC requires that a reactive/equivocal HCV antibodyresult be sent out for confirmation. HCV Quant by PCRtesting. Performed By: #### L 100.0100, L501.5200, L3100.0300, L3890.6301, BTSPAT, L3890.6006, L500.2500, L3890.6202, M100.651 ####[facility] [address] [place], [place], [id number] MR/PAT.ANEon 11-02-2024 MR/PAT.ANE Normal [facility] MRSA screenOrdered By: Sharmin Colon on 11-02-2024 MRSA DNA ALLEN+probe Ql (Unsp spec) [facility] Magnesiumon 11-02-2024 Magnesium [Mass/Vol] 2.2 mg/dL Normal 1.5-2.2 [facility] Comment on above: Performed By: #### L 100.0100, L501.5200, L3100.0300, L3890.6301, BTSPAT, L3890.6006, L500.2500, L3890.6202, M100.651 ####[facility] [address] [facility] [place], [place], [address] Magnesium measurement (mass/ volume)Ordered By: Bill Colon on 11-02-2024 Magnesium (Unsp spec) [Mass/Vol] 2.2 mg/dL 1.5-2.2 [facility] No Panel InformationOrdered By: Bill Colon on 11-02-2024 HIV (1&2) Antibody Non-Reactive Nonreactive [facility] Comment on above: Non-ReactiveReactive Repeatedly reactive samples must be confirmed according to CDC recommended confirmatory algorithms. The subresults for either HIVAG or AHIV can be used as an aid in the selection of the confirmation algorithm for reactive samples.Send out specimens with Reactive results to [facility] for confirmation.Order the HIV antibody detection and differentiation: #[id number] Non-Reactive Nonreactive [facility] Serum hepatitis B virus surf suzan antibody detectionOrdered By: Bill Colon on 11-02-2024 HBV surface Ab Ql (S) REAC [facility] Comment on above: <8.5 mIU/mL: Non-Rad[place] ctive8.5<= x <11.5 mIU/mL: Indeterminate>=11.5 mIU/mL: Reactive Non Reactive: Inconsistent with immunity less than <10 mIU/mL Reactive: Consistent with immunity greater than or equal to 10 mIU/mL Type AND Screen - PAT ONLYon 11-02-2024 ABO and Rh group Nom (Bld) Blood group O Rh(D) positive Normal [facility] Comment on above: Order Comment: Reaso n for Laboratory Test [id number] LUMBAR Performed By: #### L 100.0100, L501.5200, L3100.0300, L3890.6301, BTSPAT, L3890.6006, L500.2500, L3890.6202, M100.651 ####[facility] [address] [place], [address] Orthopedic Visit Reporton Orthopedic Visit Report Normal [facility] Magnetic resonance imaging r eportOrdered By: Duc Patino on 09-19-2024 Study report [facility] Imaging Services [address] [place], [place] [id number] Spine Lumbar (Routine) MR#: [id number] Acct: [id number] Name: JOAO BARNETT Rep #: [id number] 1 : 1945 M 79 From: Tashi Patino DO PCP: DEANNA Franklin Status: REG CLI Study:Spine Lumbar (Routine) Date of Exam: 09/19/24 Exam# [id number] Ordering Dr: Krissy Colon MD PROCEDURE: Noncontrast MRI of the lumbar spine. REASON FOR EXAM: Back pain. No history of prior lumbar spine surgery. TECHNIQUE: Multiplanar, multisequence MRI images of the lumbar spine were obtained without IV contrast. COMPARISON: Lumbar spine radiographs 09/15/2024. Prior lumbar spine MRI 04/28/2023. FINDINGS: The study assumes a presence of 5 lumbar type, rtw-qfg-xkwyrxf vertebral bodies. There is mild rightward convex curvature of the mid lumbar spine on the coronal localizer images. Similar grade 1 retrolisthesis of L3 relative to L4 and L4 relative to L5 compared to 04/28/2023. No acute lumbar vertebral body fracture or abnormal marrow replacement process. There are worsened reactive endplate changes at the L2-3 and L3-4 levels. The conus terminates at T12-L1. The included lower spinal cord and lower thoracic intervertebral disc spaces are unremarkable. The included upper sacrum and SI joints are intact. Included retroperitoneal and paraspinal soft tissues show no specific abnormality. L1-2: No focal disc herniation, significant central spinal canal, or neural foraminal narrowing. L2-3: There is severe degenerative disc disease with worsened reactive endplate changes compared to 04/28/2023. There is a diffuse disc bulge, which causes severe central spinal canal narrowing, progressed compared to the prior study. No focal disc herniation. Moderate bilateral neural foraminal narrowing, greatest on the left. Mild degenerative facet changes. L3-4: Severe degenerative disc disease at this level, progressed from the 2022 study. A diffuse disc bulge along with ligamentum flavum and facet hypertrophy causes severe central spinal canal narrowing, worsened compared to the previous study. No focal disc herniation. Moderate bilateral neural foraminal narrowing and moderate degenerative facet changes. L4-5: A diffuse disc bulge along with ligamentum flavum and facet hypertrophy causes severe central spinal canal narrowing, similar to minimally worse. Severe bilateral neural foraminal narrowing, greatest on the right. Moderate degenerative facet changes. L5-S1: There is an asymmetric right disc bulge causing mild right central spinalcanal narrowing, slightly progressed from the previous study. No focal disc herniation. Severe bilateral neural foraminal narrowing and moderate degenerative facet changes. MRI/Spine Lumbar (Routine) IMPRESSION: No acute bony abnormality of the lumbar spine. Progressed extensive multilevel degenerative disc and facet disease in the lumbar spine as described level by level above. Severe central spinal canal narrowing at the L2-3 through L4-5 levels. Multilevel neural foraminal narrowing and degenerative facet changes as described above. Reading Location: [facility] CC: DEANNA Coronado; Dr. Bill Colon MD ~ Cardiovascular Invasive Specialist: Signed [facility] Spine Lumbar (Routine)on Spine Lumbar (Routine) Normal [facility] L/S Spine Min 4 Viewson 08-27 L/S Spine Min 4 Views Normal [facility] Orthopedic Visit Reporton Orthopedic Visit Report Normal [facility] [id number] DOrdered By: Helen Coronado on 07-10-2024 Vitamin D 25-Hydroxy 78.9 ng/mL [facility] Comment on above: Vitamin D 25(OH) Sta tus Range Deficiency <20 ng/mL (50nmol/L) Insufficiency 20 - 30 ng/mL (50 - 75 nmol/L) Sufficiency 30 - 100 ng/mL (75 - 250 nmol/L) Toxicity >100 ng/mL (>250 nmol/L) Absolute neutrophil countOrd ered By: Trinity Coronado on 07-10-2024 Neutrophils (Bld) [#/Vol] 6.9 10*3/uL 2.0-7.7 [facility] Albumin to globulin ratioOrd ered By: Trinity Coronado on 07-10-2024 Albumin/Globulin [Mass ratio] 1.0 {ratio} 0.9-2.4 [facility] Basophil percentageOrdered B y: Trinity Coronado on 07-10-2024 Basophils/100 WBC (Bld) 0.7 % 0-1 [facility] Bilirubin, totalOrdered By: Trinity Coronado on 07-10-2024 Bilirubin [Mass/Vol] 0.60 mg/dL 0.20-1.00 [facility] Comment on above: For patients on eltr ombopag therapy, use of Dimension Robbins TBIL is not recommended. Blood urea nitrogen (BUN)/cr eatinine ratioOrdered By: Trinity Coronado on 07-10-2024 Urea nitrogen/Creatinine [Mass ratio] 18.9 mg/mg 10-20 [facility] CBC W/Diff, Automatedon 06-25 Absolute Lymph 2.14 X10 3/uL Normal 0.83-4.51 [facility] Comment on above: Performed By: #### L 100.0100, L506.1000, L500.4100, L501.9910, L500.4050 ####[facility] [address] [place], [address] Absolute Neut 6.9 X10 3/uL Normal 2.0-7.7 [facility] Comment on above: Performed By: #### L 100.0100, L506.1000, L500.4100, L501.9910, L500.4050 ####[facility] [address] [place], [address] Basophils/100 WBC (Bld) 0.7 % Normal 0-1 [facility] Comment on above: Performed By: #### L 100.0100, L506.1000, L500.4100, L501.9910, L500.4050 ####[facility] [address] [place], [address] Eosinophils/100 WBC (Bld) 0.4 % Normal 0-5 [facility] Comment on above: Performed By: #### L 100.0100, L506.1000, L500.4100, L501.9910, L500.4050 ####[facility] [address] [place], [address] Erythrocyte distribution width (RBC) [Ratio] 12.3 % Normal 11.6-14.6 [facility] Comment on above: Performed By: #### L 100.0100, L506.1000, L500.4100, L501.9910, L500.4050 ####[facility] [address] [place], [address] Hematocrit (Bld) [Volume fraction] 39.9 % Low 40-54 [facility] Comment on above: Performed By: #### L 100.0100, L506.1000, L500.4100, L501.9910, L500.4050 ####[facility] [address] [place], [address] Hemoglobin (Bld) [Mass/Vol] 12.7 g/dL Low 13.0-16.5 [facility] Comment on above: Performed By: #### L 100.0100, L506.1000, L500.4100, L501.9910, L500.4050 ####[facility] [address] [place], [address] IG% 0.400 Normal 0.0-0.9 [facility] Comment on above: Result Comment: IG% - Immature Granulocytes (promyelocytes, myelocytes andmetamyelocytes) > 1% indicates that a LEFT SHIFT is Present. Performed By: #### L 100.0100, L506.1000, L500.4100, L501.9910, L500.4050 ####[facility] [address] [place], [address] Lymphocytes/100 WBC (Bld) 21.5 % Normal 19-41 [facility] Comment on above: Performed By: #### L 100.0100, L506.1000, L500.4100, L501.9910, L500.4050 ####[facility] [address] [place], [address] MCH (RBC) [Entitic mass] 30.3 pg Normal 27.0-32.0 [facility] Comment on above: Performed By: #### L 100.0100, L506.1000, L500.4100, L501.9910, L500.4050 ####[facility] [address] [place], [address] MCHC (RBC) [Mass/Vol] 31.8 g/dL Low 32-36 [facility] Comment on above: Performed By: #### L 100.0100, L506.1000, L500.4100, L501.9910, L500.4050 ####[facility] [address] [place], [address] MCV (RBC) [Entitic vol] 95.2 fL High 80-94 [facility] Comment on above: Performed By: #### L 100.0100, L506.1000, L500.4100, L501.9910, L500.4050 ####[facility] [address] [place], [address] Monocytes/100 WBC (Bld) 7.7 % Normal 0-10 [facility] Comment on above: Performed By: #### L 100.0100, L506.1000, L500.4100, L501.9910, L500.4050 ####[facility] [address] [place], [address] Neutrophils/100 WBC (Bld) 69.3 % Normal 47-70 [facility] Comment on above: Performed By: #### L 100.0100, L506.1000, L500.4100, L501.9910, L500.4050 ####[facility] [address] [place], [address] Nucleated RBC (Bld) [#/Vol] 0 10*3/uL Normal 0-5 [facility] Comment on above: Performed By: #### L 100.0100, L506.1000, L500.4100, L501.9910, L500.4050 ####[facility] [address] [place], [address] Platelet mean volume (Bld) [Entitic vol] 11.6 fL Normal 6.2-12.0 [facility] Comment on above: Performed By: #### L 100.0100, L506.1000, L500.4100, L501.9910, L500.4050 ####[facility] [address] [place], [address] Platelets (Bld) [#/Vol] 349 10*3/uL Normal 150-450 [facility] Comment on above: Performed By: #### L 100.0100, L506.1000, L500.4100, L501.9910, L500.4050 ####[facility] [address] [place], [address] RBC (Bld) [#/Vol] 4.19 10*6/uL Low 4.6-6.2 [facility] Comment on above: Performed By: #### L 100.0100, L506.1000, L500.4100, L501.9910, L500.4050 ####[facility] [address] [place], [address] RDW SD 43.0 fl Normal 35.1-43.9 [facility] Comment on above: Performed By: #### L 100.0100, L506.1000, L500.4100, L501.9910, L500.4050 ####[facility] [address] [place], [address] WBC (Bld) [#/Vol] 10.0 10*3/uL Normal 4.4-11.0 [facility] Comment on above: Performed By: #### L 100.0100, L506.1000, L500.4100, L501.9910, L500.4050 ####[facility] [address] [place], [address] Carbon dioxide measurementOr dered By: Trinity Coronado on 07-10-2024 CO2 [Moles/Vol] 23.0 mmol/L 21.0-32.0 [facility] Chloride measurementOrdered By: Trinity Coronado on 07-10-2024 Chloride [Moles/Vol] 110 mmol/L High 98-107 [facility] Comprehensive Metabolic Prof ilon 07-10-2024 Albumin [Mass/Vol] 3.6 g/dL Normal 3.2-5.0 [facility] Comment on above: Performed By: #### L 100.0100, L506.1000, L500.4100, L501.9910, L500.4050 ####[facility] [address] [place], [address] Albumin/Globulin [Mass ratio] 1.0 {ratio} Normal 0.9-2.4 [facility] Comment on above: Performed By: #### L 100.0100, L506.1000, L500.4100, L501.9910, L500.4050 ####[facility] [address] [place], [address] ALK P 43 U/L Low 45-117 [facility] Comment on above: Performed By: #### L 100.0100, L506.1000, L500.4100, L501.9910, L500.4050 ####[facility] [address] [place], [address] ALT [Catalytic activity/Vol] 25 U/L Normal 16-61 [facility] Comment on above: Performed By: #### L 100.0100, L506.1000, L500.4100, L501.9910, L500.4050 ####[facility] [address] [place], [address] AST [Catalytic activity/Vol] 13 U/L Low 15-37 [facility] Comment on above: Performed By: #### L 100.0100, L506.1000, L500.4100, L501.9910, L500.4050 ####[facility] [address] [place], [address] Bilirubin [Mass/Vol] 0.60 mg/dL Normal 0.20-1.00 [facility] Comment on above: Result Comment: For patients on eltrombopag therapy, use of Dimension Robbins TBIL is not recommended. Performed By: #### L 100.0100, L506.1000, L500.4100, L501.9910, L500.4050 ####[facility] [address] [place], [address] BUN/CRE 18.9 RATIO Normal 10-20 [facility] Comment on above: Performed By: #### L 100.0100, L506.1000, L500.4100, L501.9910, L500.4050 ####[facility] [address] [place], [address] CA,Total 9.9 mg/dL Normal 8.5-10.1 [facility] Comment on above: Performed By: #### L 100.0100, L506.1000, L500.4100, L501.9910, L500.4050 ####[facility] [address] [place], [address] Chloride [Moles/Vol] 110 mmol/L High 98-107 [facility] Comment on above: Performed By: #### L 100.0100, L506.1000, L500.4100, L501.9910, L500.4050 ####[facility] [address] [place], [address] CO2 [Moles/Vol] 23.0 mmol/L Normal 21.0-32.0 [facility] Comment on above: Performed By: #### L 100.0100, L506.1000, L500.4100, L501.9910, L500.4050 ####[facility] [address] [place], [address] Creatinine [Mass/Vol] 1.96 mg/dL High 0.70-1.30 [facility] Comment on above: Result Comment: The validity of the calculated GFR GFRAA in patients over70 years has not been determined. Clinical correlation isessential. Performed By: #### L 100.0100, L506.1000, L500.4100, L501.9910, L500.4050 ####[facility] [address] [place], [address] EST GFR - AA 43 mL/min Low >60 [facility] Comment on above: Result Comment: Afri can Bhutanese GFR Calc Performed By: #### L 100.0100, L506.1000, L500.4100, L501.9910, L500.4050 ####[facility] [address] [place], [address] GAP 6 Normal 5-15 [facility] Comment on above: Performed By: #### L 100.0100, L506.1000, L500.4100, L501.9910, L500.4050 ####[facility] [address] [place], [address] GFR/1.73 sq M.predicted among non-blacks MDRD (S/P/Bld) [Vol rate/Area] 35 mL/min/{1.73_m2} Low >60 [facility] Comment on above: Result Comment: Non- GFR Calc Performed By: #### L 100.0100, L506.1000, L500.4100, L501.9910, L500.4050 ####[facility] [address] [place], [address] Globulin (S) [Mass/Vol] 3.6 g/dL Normal 2.2-4.2 [facility] Comment on above: Performed By: #### L 100.0100, L506.1000, L500.4100, L501.9910, L500.4050 ####[facility] [address] [place], [address] Glucose [Mass/Vol] 124 mg/dL High 74-106 [facility] Comment on above: Result Comment: Fast ing Glucose result from 100 to 125 mg/dLsuggests IMPAIRED HOMEOSTASIS per A.D.A. criteria. Performed By: #### L 100.0100, L506.1000, L500.4100, L501.9910, L500.4050 ####[facility] [address] [place], [address] Potassium [Moles/Vol] 5.4 mmol/L High 3.5-5.1 [facility] Comment on above: Performed By: #### L 100.0100, L506.1000, L500.4100, L501.9910, L500.4050 ####[facility] [address] [place], [address] Sodium [Moles/Vol] 139 mmol/L Normal 136-145 [facility] Comment on above: Performed By: #### L 100.0100, L506.1000, L500.4100, L501.9910, L500.4050 ####[facility] [address] [place], [address] T PROT 7.2 g/dL Normal 6.4-8.2 [facility] Comment on above: Performed By: #### L 100.0100, L506.1000, L500.4100, L501.9910, L500.4050 ####[facility] [address] [place], [address] Urea nitrogen [Mass/Vol] 37 mg/dL High 7-18 [facility] Comment on above: Performed By: #### L 100.0100, L506.1000, L500.4100, L501.9910, L500.4050 ####[facility] [address] [place], [address] Eosinophil percentageOrdered By: Trinity Coronado on 07-10-2024 Eosinophils/100 WBC (Bld) 0.4 % 0-5 [facility] Erythrocyte distribution wid th ratioOrdered By: Trinity Coronado on 07-10-2024 Erythrocyte distribution width (RBC) [Ratio] 12.3 % 11.6-14.6 [facility] Erythrocyte distribution wid th standard deviationOrdered By: Trinity Coronado on 07-10-2024 Erythrocyte distribution width (RBC) [Entitic vol] 43.0 fL 35.1-43.9 [facility] Estimated glomerular filtrat ion rate (GFR) AmericanOrdered By: Trinity Coronado on 07-10-2024 Estimated GFR (MDRD) Amer 43 mL/min Low >60 [facility] Comment on above: GFR Calc Glomerular filtration rate ( GFR) estimationOrdered By: Trinity Coronado on 07-10-2024 Estimated GFR (MDRD) Non-Af Amer 35 mL/min Low >60 [facility] Comment on above: Non- GFR Calc Glucose measurementOrdered B y: Trinity Coronado on 07-10-2024 Glucose [Mass/Vol] 124 mg/dL High 74-106 [facility] Comment on above: Fasting Glucose resu lt from 100 to 125 mg/dL suggests IMPAIRED HOMEOSTASIS per A.D.A. criteria. Hematocrit Auto (Bld) [Volum e fraction]Ordered By: Trinity Coronado on 07-10-2024 Hematocrit (Bld) [Volume fraction] 39.9 % Low 40-54 [facility] Hemoglobin measurementOrdere d By: Trinity Coronado on 07-10-2024 Hemoglobin (Bld) [Mass/Vol] 12.7 g/dL Low 13.0-16.5 [facility] High density lipoprotein (HD L) measurementOrdered By: Trinity Coronado on 07-10-2024 Cholesterol in HDL [Mass/Vol] 49 mg/dL >40 [facility] Comment on above: The drugs N-Acetylcy steine and Metamizole may falsely depress this assay. Reference Range HDL <40 mg/dL Low HDL Cholesterol HDL >or= 60 mg/dL High HDL Cholesterol Immature granulocytes/100 WB C Auto (Bld)Ordered By: Trinity Coronado on 07-10-2024 Immature granulocytes/100 WBC (Bld) 0.400 % 0.0-0.9 [facility] Comment on above: IG% - Immature Granu locytes (promyelocytes, myelocytes and metamyelocytes) > 1% indicates that a LEFT SHIFT is Present. Laboratory - Chemistry and C hemistry - challengeOrdered By: Trinity Coronado on 07-10-2024 AST [Catalytic activity/Vol] 13 U/L Low 15-37 [facility] Lipid Profileon 07-10-2024 Cholesterol [Mass/Vol] 156 mg/dL Normal 200 [facility] Comment on above: Result Comment: <200 mg/dL Desirable 200-240 mg/dL Borderline >240 mg/dL High Risk Performed By: #### L 100.0100, L506.1000, L500.4100, L501.9910, L500.4050 ####[facility] [address] [place], [address] Cholesterol in HDL [Mass/Vol] 49 mg/dL Normal [facility] Comment on above: Result Comment: The drugs N-Acetylcysteine and Metamizole may falselydepress this assay. Reference Range HDL <40 mg/dL Low HDL Cholesterol HDL >or= 60 mg/dL High HDL Cholesterol Performed By: #### L 100.0100, L506.1000, L500.4100, L501.9910, L500.4050 ####[facility] [address] [place], [address] Cholesterol in LDL [Mass/Vol] 79 mg/dL Normal 0-130 [facility] Comment on above: Performed By: #### L 100.0100, L506.1000, L500.4100, L501.9910, L500.4050 ####[facility] [address] [place], [address] Cholesterol in VLDL [Mass/Vol] 28 mg/dL Normal 5-40 [facility] Comment on above: Performed By: #### L 100.0100, L506.1000, L500.4100, L501.9910, L500.4050 ####[facility] [address] [place], [address] Triglyceride [Mass/Vol] 139 mg/dL Normal [facility] Comment on above: Result Comment: The drugs N-Acetylcysteine and Metamizole may falselydepress this assay.Serum Triglycerides Reference Interval Normal <150 mg/dL Borderline high 150 - 199 mg/dL High 200 - 499 mg/dL Very High > or = 500 mg/dL Performed By: #### L 100.0100, L506.1000, L500.4100, L501.9910, L500.4050 ####[facility] [address] [place], [address] Low density lipoprotein (LDL ) cholesterol measurementOrdered By: Trinity Coronado on 07-10-2024 Cholesterol in LDL [Mass/Vol] 79 mg/dL 0-130 [facility] Lymphocytes Auto (Unsp spec) [#/Vol]Ordered By: Trinity Coronado on 07-10-2024 Lymphocytes (Bld) [#/Vol] 2.14 10*3/uL 0.83-4.51 [facility] Lymphocytes/100 WBC Auto (Un sp spec)Ordered By: Trinity Coronado on 07-10-2024 Lymphocytes/100 WBC (Bld) 21.5 % 19-41 [facility] MCV (mean corpuscular volume ) determinationOrdered By: Trinity Coronado on 07-10-2024 MCV (RBC) [Entitic vol] 95.2 fL High 80-94 [facility] Mean corpuscular hemoglobin (MCH) determinationOrdered By: Trinity Coronado on 07-10-2024 MCH (RBC) [Entitic mass] 30.3 pg 27.0-32.0 [facility] Mean corpuscular hemoglobin concentration (MCHC) determinationOrdered By: Trinitylisette Coronado on 07-10-2024 MCHC (RBC) [Mass/Vol] 31.8 g/dL Low 32-36 [facility] Mean platelet volume determi nationOrdered By: Trinity Coronado on 07-10-2024 Platelet mean volume (Bld) [Entitic vol] 11.6 fL 6.2-12.0 [facility] Monocyte percentageOrdered B y: Trinity Coronado on 07-10-2024 Monocytes/100 WBC (Bld) 7.7 % 0-10 [facility] Neutrophil percentageOrdered By: Trinity Coronado on 07-10-2024 Neutrophils/100 WBC (Bld) 69.3 % 47-70 [facility] Nucleated red blood cell per centageOrdered By: Trinity Coronado on 07-10-2024 Nucleated RBC/100 WBC (Bld) [Ratio] 0 % 0-5 [facility] PSA,Total - Annual Screenon 07-10-2024 PSA,TOT SCREEN 1.03 ng/mL Normal 0.00-4.00 [facility] Comment on above: Result Comment: This test was performed using the TPSA assay method for theDimension chemistry system. Values obtained with differentassay methods cannot be used interchangably.When changing PSA assays in the course of monitoring apatient, additional sequential testing should be carriedout to confirm baseline values. Performed By: #### L 100.0100, L506.1000, L500.4100, L501.9910, L500.4050 ####[facility] [id number] [place], [address] Platelet countOrdered By: Ra gisela Coronado on 07-10-2024 Platelets (Bld) [#/Vol] 349 10*3/uL 150-450 [facility] Potassium measurementOrdered By: Trinity Coronado on 07-10-2024 Potassium [Moles/Vol] 5.4 mmol/L High 3.5-5.1 [facility] RBC Auto (Bld) [#/Vol]Ordere d By: Trinity Coronado on 07-10-2024 RBC (Bld) [#/Vol] 4.19 10*6/uL Low 4.6-6.2 [facility] Screening prostate specific antigen (PSA) measurementOrdered By: Trinity Coronado on 07-10-2024 Prostate Specific Antigen Screen 1.03 ng/mL 0.00-4.00 [facility] Comment on above: This test was perfor med using the TPSA assay method for themension chemistry system. Values obtained with differentassay methods cannot be used interchangably.When changing PSA assays in the course of monitoring apatient, additional sequential testing should be carriedout to confirm baseline values. Serum anion gap measurementO rdered By: Trinity Coronado on 07-10-2024 Anion gap [Moles/Vol] 6 mmol/L 5-15 [facility] Serum globulin measurementOr dered By: Trinity Coronado on 07-10-2024 Globulin (S) [Mass/Vol] 3.6 g/dL 2.2-4.2 [facility] Serum or plasma alanine juárez otransferase (ALT) measurementOrdered By: Trinity Coronado on 07-10-2024 ALT [Catalytic activity/Vol] 25 U/L 16-61 [facility] Serum or plasma albumin ivory urement (mass/volume)Ordered By: Trinity Coronado on 07-10-2024 Albumin [Mass/Vol] 3.6 g/dL 3.2-5.0 [facility] Serum or plasma alkaline lucy sphatase measurementOrdered By: Trinity Coronado on 07-10-2024 ALP [Catalytic activity/Vol] 43 U/L Low 45-117 [facility] Serum or plasma calcium ivory urement (mass/volume)Ordered By: Trinity Coronado on 07-10-2024 Calcium [Mass/Vol] 9.9 mg/dL 8.5-10.1 [facility] Serum or plasma cholesterol measurement (mass/volume)Ordered By: Trinity Coronado on 07-10-2024 Cholesterol [Mass/Vol] 156 mg/dL <200 [facility] Comment on above: <200 mg/dL Desirable 200-240 mg/dL Borderline >240 mg/dL High Risk Serum or plasma creatinine m easurement (mass/volume)Ordered By: Trinity Coronado on 07-10-2024 Creatinine [Mass/Vol] 1.96 mg/dL High 0.70-1.30 [facility] Comment on above: The validity of the calculated GFR & GFRAA in patients over 70 years has not been determined. Clinical correlation is essential. Serum or plasma urea nitroge n measurement (mass/volume)Ordered By: Trinity Coronado on 07-10-2024 Urea nitrogen [Mass/Vol] 37 mg/dL High 7-18 [facility] Sodium levelOrdered By: Eileen Coronado on 07-10-2024 Sodium [Moles/Vol] 139 mmol/L 136-145 [facility] Total proteinOrdered By: Piter Coronado on 07-10-2024 Protein [Mass/Vol] 7.2 g/dL 6.4-8.2 [facility] Triglycerides measurementOrd ered By: Trinity Coronado on 07-10-2024 Triglyceride [Mass/Vol] 139 mg/dL <199 [facility] Comment on above: The drugs N-Acetylcy steine and Metamizole may falsely depress this assay.Serum Triglycerides Reference Interval Normal <150 mg/dL Borderline high 150 - 199 mg/dL High 200 - 499 mg/dL Very High > or = 500 mg/dL Very low density lipoprotein (VLDL) cholesterol measurementOrdered By: Trinity Coronado on 07-10-2024 VLDL Cholesterol 28 mg/dL 5-40 [facility] Vitamin D,25 Hydroxyon 07-10 Vitamin D 25-OH 78.9 ng/mL Normal [facility] Comment on above: Result Comment: Merna min D 25(OH) Status Range Deficiency <20 ng/mL (50nmol/L) Insufficiency 20 - 30 ng/mL (50 - 75 nmol/L) Sufficiency 30 - 100 ng/mL (75 - 250 nmol/L) Toxicity >100 ng/mL (>250 nmol/L) Performed By: #### L 100.0100, L506.1000, L500.4100, L501.9910, L500.4050 ####[facility] [id number] [place], [place], [id number] White blood cell (WBC) count Ordered By: Trinity Coronado on 07-10-2024 WBC (Bld) [#/Vol] 10.0 10*3/uL 4.4-11.0 [facility] Basophil percentageOrdered B y: Trinity Coronado on 04-16-2023 Chloride [Moles/Vol] 112 mmol/L 98-107 [facility] Glucose [Mass/Vol] 121 mg/dL 74-106 [facility] Comment on above: Fasting Glucose resu lt from 100 to 125 mg/dL suggests IMPAIRED HOMEOSTASIS per A.D.A. criteria. Potassium [Moles/Vol] 5.0 mmol/L 3.5-5.1 [facility] Sodium [Moles/Vol] 140 mmol/L 136-145 [facility] Laboratory - Chemistry and C hemistry - challengeOrdered By: Trinity Coronado on 04-16-2023 CO2 [Moles/Vol] 24.0 mmol/L 21.0-32.0 [facility] Urea nitrogen/Creatinine [Mass ratio] 11.8 mg/mg 10-20 [facility] No Panel InformationOrdered By: Trinity Coronado on 04-16-2023 Estimated GFR (MDRD) Amer 45 mL/min >60 [facility] Comment on above: GFR Calc Estimated GFR (MDRD) Non-Af Amer 37 mL/min >60 [facility] Comment on above: Non- GFR Calc Serum or plasma calcium ivory urement (mass/volume)Ordered By: Trinity Coronado on 04-16-2023 Calcium [Mass/Vol] 9.2 mg/dL 8.5-10.1 [facility] Serum or plasma creatinine m easurement (mass/volume)Ordered By: Trinity Coronado on 04-16-2023 Creatinine [Mass/Vol] 1.87 mg/dL 0.70-1.30 [facility] Comment on above: The validity of the calculated GFR & GFRAA in patients over 70 years has not been determined. Clinical correlation is essential. Serum or plasma urea nitroge n measurement (mass/volume)Ordered By: Trinity Coronado on 04-16-2023 Urea nitrogen [Mass/Vol] 22 mg/dL 7-18 [facility] Thin prep Papanicolaou smear with manual screeningOrdered By: Trinity Coronado on 04-16-2023 Thin prep Papanicolaou smear with manual screening 4 5-15 [facility] Basophil percentageOrdered B y: Trinity Coronado on 01-20-2023 Chloride [Moles/Vol] 106 mmol/L 98-107 [facility] Glucose [Mass/Vol] 170 mg/dL 74-106 [facility] Comment on above: Fasting Glucose resu lt greater than or equal to 126 mg/dL suggests DIABETES MELLITUS per A.D.A. criteria. Potassium [Moles/Vol] 5.6 mmol/L 3.5-5.1 [facility] Sodium [Moles/Vol] 135 mmol/L 136-145 [facility] Laboratory - Chemistry and C hemistry - challengeOrdered By: Trinity Coronado on 01-20-2023 CO2 [Moles/Vol] 24.0 mmol/L 21.0-32.0 [facility] Urea nitrogen/Creatinine [Mass ratio] 11.7 mg/mg 10-20 [facility] No Panel InformationOrdered By: Trinity Coronado on 01-20-2023 Estimated GFR (MDRD) Amer 34 mL/min >60 [facility] Comment on above: GFR Calc Estimated GFR (MDRD) Non-Af Amer 28 mL/min >60 [facility] Comment on above: Non- GFR Calc Serum or plasma calcium ivory urement (mass/volume)Ordered By: Trinity Coronado on 01-20-2023 Calcium [Mass/Vol] 9.6 mg/dL 8.5-10.1 [facility] Serum or plasma creatinine m easurement (mass/volume)Ordered By: Trinity Coronado on 01-20-2023 Creatinine [Mass/Vol] 2.39 mg/dL 0.70-1.30 [facility] Comment on above: The validity of the calculated GFR & GFRAA in patients over 70 years has not been determined. Clinical correlation is essential. Serum or plasma urea nitroge n measurement (mass/volume)Ordered By: Trinity Coronado on 01-20-2023 Urea nitrogen [Mass/Vol] 28 mg/dL 7-18 [facility] Thin prep Papanicolaou smear with manual screeningOrdered By: Trinitylisette Coronado on 01-20-2023 Thin prep Papanicolaou smear with manual screening 5 5-15 [facility] Absolute lymphocyte countOrd ered By: Trinity Coronado on 01-19-2023 Lymphocytes Auto (Unsp spec) [#/Vol] 1.81 10*3/uL 0.83-4.51 [facility] Basophil percentageOrdered B y: Trinity Coronado on 01-19-2023 Basophils/100 WBC (Bld) 1.7 % 0-1 [facility] Bilirubin [Mass/Vol] 0.50 mg/dL 0.20-1.00 [facility] Comment on above: For patients on eltr ombopag therapy, use of Dimension Robbins TBIL is not recommended. Chloride [Moles/Vol] 110 mmol/L 98-107 [facility] Eosinophils/100 WBC (Bld) 3.9 % 0-5 [facility] Glucose [Mass/Vol] 97 mg/dL 74-106 [facility] Neutrophils (Bld) [#/Vol] 3.6 10*3/uL 2.0-7.7 [facility] Neutrophils/100 WBC (Bld) 56.4 % 47-70 [facility] Potassium [Moles/Vol] 6.5 mmol/L 3.5-5.1 [facility] Comment on above: Critical Result(s) C alled at: 16:25:39 01/19/2023 by: ZAHIRA SPANGLER. Results read back by same. Protein [Mass/Vol] 7.6 g/dL 6.4-8.2 [facility] Sodium [Moles/Vol] 137 mmol/L 136-145 [facility] WBC (Bld) [#/Vol] 6.4 10*3/uL 4.4-11.0 [facility] Blood erythrocytes count (nu mber/volume)Ordered By: Trinity Coronado on 01-19-2023 RBC (Bld) [#/Vol] 4.27 10*6/uL 4.6-6.2 [facility] Blood hemoglobin measurement (mass/volume)Ordered By: Trinity Coronado on 01-19-2023 Hemoglobin (Bld) [Mass/Vol] 13.1 g/dL 13.0-16.5 [facility] Blood lymphocytes/100 leukoc ytesOrdered By: Trinity Coronado on 01-19-2023 Lymphocytes/100 WBC (Bld) 28.3 % 19-41 [facility] Blood monocytes/100 leukocyt esOrdered By: Trinity Coronado on 01-19-2023 Monocytes/100 WBC (Bld) 9.4 % 0-10 [facility] Blood platelet mean volumeOr dered By: Trinity Coronado on 01-19-2023 Platelet mean volume (Bld) [Entitic vol] 11.2 fL 6.2-12.0 [facility] Determination of erythrocyte mean corpuscular volume (MCV)Ordered By: Trinity Coronado on 01-19-2023 MCV (RBC) [Entitic vol] 96.3 fL 80-94 [facility] Hematocrit Auto (Bld) [Volum e fraction]Ordered By: Trinity Coronado on 01-19-2023 Hematocrit (Bld) [Volume fraction] 41.1 % 40-54 [facility] Laboratory - Chemistry and C hemistry - challengeOrdered By: Trinity Coronado on 01-19-2023 ALP [Catalytic activity/Vol] 40 U/L 45-117 [facility] ALT [Catalytic activity/Vol] 23 U/L 16-61 [facility] CO2 [Moles/Vol] 22.0 mmol/L 21.0-32.0 [facility] Globulin (S) [Mass/Vol] 3.9 g/dL 2.2-4.2 [facility] Urea nitrogen/Creatinine [Mass ratio] 12.5 mg/mg 10-20 [facility] Laboratory - Hematology and Cell countsOrdered By: Trinity Coronado on 01-19-2023 Erythrocyte distribution width (RBC) [Entitic vol] 45.1 fL 35.1-43.9 [facility] Erythrocyte distribution width (RBC) [Ratio] 12.8 % 11.6-14.6 [facility] Immature granulocytes/100 WBC (Bld) 0.300 % 0.0-0.9 [facility] Comment on above: IG% - Immature Granu locytes (promyelocytes, myelocytes and metamyelocytes) > 1% indicates that a LEFT SHIFT is Present. MCH (RBC) [Entitic mass] 30.7 pg 27.0-32.0 [facility] Nucleated RBC/100 WBC (Bld) [Ratio] 0 % 0-5 [facility] MCHC Auto (RBC) [Mass/Vol]Or dered By: Trinity Coronado on 01-19-2023 MCHC (RBC) [Mass/Vol] 31.9 g/dL 32-36 [facility] No Panel InformationOrdered By: Trinity Coronado on 01-19-2023 Estimated GFR (MDRD) Amer 34 mL/min >60 [facility] Comment on above: GFR Calc Estimated GFR (MDRD) Non-Af Amer 28 mL/min >60 [facility] Comment on above: Non- GFR Calc Thyroid Stimulating Hormone (TSH) 2.52 uIU/mL 0.358-3.74 [facility] Vitamin D 25-Hydroxy 70.7 ng/mL [facility] Comment on above: Vitamin D 25(OH) Sta tus Range Deficiency <20 ng/mL (50nmol/L) Insufficiency 20 - 30 ng/mL (50 - 75 nmol/L) Sufficiency 30 - 100 ng/mL (75 - 250 nmol/L) Toxicity >100 ng/mL (>250 nmol/L) Platelets bldOrdered By: Piter knox Dajuan on 01-19-2023 Platelets (Bld) [#/Vol] 318 10*3/uL 150-450 [facility] Serum or plasma albumin ivory urement (mass/volume)Ordered By: Trinity Coronado on 01-19-2023 Albumin [Mass/Vol] 3.7 g/dL 3.2-5.0 [facility] Serum or plasma albumin/glob ulin mass ratioOrdered By: Trinity Coronado on 01-19-2023 Albumin/Globulin [Mass ratio] 0.9 {ratio} 0.9-2.4 [facility] Serum or plasma calcium ivory urement (mass/volume)Ordered By: Trinity Coronado on 01-19-2023 Calcium [Mass/Vol] 9.4 mg/dL 8.5-10.1 [facility] Serum or plasma creatinine m easurement (mass/volume)Ordered By: Trinity Coronado on 01-19-2023 Creatinine [Mass/Vol] 2.40 mg/dL 0.70-1.30 [facility] Comment on above: The validity of the calculated GFR & GFRAA in patients over 70 years has not been determined. Clinical correlation is essential. Serum or plasma urea nitroge n measurement (mass/volume)Ordered By: Trinity Coronado on 01-19-2023 Urea nitrogen [Mass/Vol] 30 mg/dL 7-18 [facility] Thin prep Papanicolaou smear with manual screeningOrdered By: Trinitylisette Coronado on 01-19-2023 Thin prep Papanicolaou smear with manual screening 16 U/L 15-37 [facility] Thin prep Papanicolaou smear with manual screening 5 5-15 [facility] Discharge Summaryon 10-14-19 18 Discharge Summary Normal [facility] ([place]) .Auto Diffon 06-29-2017 Basophils Auto #/vol (Bld) 0.00 10 3/mcL Normal 0.00-0.27 [facility] ([place]) Comment on above: Performed By: #### C BC, ADIFF, ANEU, URIC, CK, BMP, GFR ####[address] [address] Basophils/100 WBC Auto (Bld) 0.4 % Normal 0.0-2.5 [facility] ([place]) Comment on above: Performed By: #### C BC, ADIFF, ANEU, URIC, CK, BMP, GFR ####[address] [address] Eosinophils 0.10 10 3/mcL Normal 0.00-0.65 [facility] ([place]) Comment on above: Performed By: #### C BC, ADIFF, ANEU, URIC, CK, BMP, GFR ####[address] [address] Eosinophils/100 leukocytes 0.6 % Normal 0.0-6.0 [facility] ([place]) Comment on above: Performed By: #### C BC, ADIFF, ANEU, URIC, CK, BMP, GFR ####[address] [address] Lymphocytes 0.80 10 3/mcL Low 0.90-4.32 [facility] ([place]) Comment on above: Performed By: #### C BC, ADIFF, ANEU, URIC, CK, BMP, GFR ####[address] [address] Lymphocytes/100 leukocytes 8.3 % Low 20.0-40.0 [facility] ([place]) Comment on above: Performed By: #### C BC, ADIFF, ANEU, URIC, CK, BMP, GFR ####[address] [address] Monocytes 0.80 10 3/mcL Normal 0.09-1.40 [facility] ([place]) Comment on above: Performed By: #### C BC, ADIFF, ANEU, URIC, CK, BMP, GFR ####[address] [address] Monocytes/100 leukocytes 8.8 % Normal 2.0-13.0 [facility] ([place]) Comment on above: Performed By: #### C BC, ADIFF, ANEU, URIC, CK, BMP, GFR ####[address] [address] Neutrophils/100 WBC Auto (Bld) 81.9 % High 50.0-75.0 [facility] ([place]) Comment on above: Performed By: #### C BC, ADIFF, ANEU, URIC, CK, BMP, GFR ####[address] [address] .GFRon 06-29-2017 eGFR (non-black) 33 ml/min/1.73sqm Normal [facility] ([place]) Comment on above: Result Comment: GFR Population mean for , Non- Americans Ages 20-29 = 116 mL/min/1.73 sq.m. Ages 30-39 = 107 mL/min/1.73 sq.m. Ages 40-49 = 99 mL/min/1.73 sq.m. Ages 50-59 = 93 mL/min/1.73 sq.m. Ages 60-69 = 85 mL/min/1.73 sq.m. Ages 70+ = 75 mL/min/1.73 sq.m.Chronic Kidney Disease: Less than 60 mL/min/1.73 square metersEnd Stage Renal Disease: Less than 15 mL/min/1.73 square meters Performed By: #### T ROPI ####[address] [address] eGFR (non-black) 40 ml/min/1.73sqm Normal [facility] ([place]) Comment on above: Result Comment: GFR Population mean for , Non- Americans Ages 20-29 = 116 mL/min/1.73 sq.m. Ages 30-39 = 107 mL/min/1.73 sq.m. Ages 40-49 = 99 mL/min/1.73 sq.m. Ages 50-59 = 93 mL/min/1.73 sq.m. Ages 60-69 = 85 mL/min/1.73 sq.m. Ages 70+ = 75 mL/min/1.73 sq.m.Chronic Kidney Disease: Less than 60 mL/min/1.73 square metersEnd Stage Renal Disease: Less than 15 mL/min/1.73 square meters Performed By: #### T ROPI ####[place] [address] .NEUABSon 06-29-2017 Neutrophils 7.70 10 3/mcL Normal 2.25-8.10 [facility] ([place]) Comment on above: Performed By: #### C BC, ADIFF, ANEU, URIC, CK, BMP, GFR ####[place] [address] BMPon 06-29-2017 BUN/Creatinine Ratio 18.2 ratio Normal 10.0-22.0 [facility] ([place]) Comment on above: Performed By: #### T ROPI ####[place] [address] Creatinine 2.03 mg/dL High 0.60-1.40 [facility] ([place]) Comment on above: Performed By: #### T ROPI ####[place] [address] Calcium 8.7 mg/dL Normal 8.4-10.1 [facility] ([place]) Comment on above: Performed By: #### T ROPI ####[place] [address] Chloride 107 mmol/L Normal 98-110 [facility] ([place]) Comment on above: Performed By: #### T ROPI ####[place] [address] CO2 21 mmol/L Low 22-32 [facility] ([place]) Comment on above: Performed By: #### T ROPI ####[place] [address] Electrolyte Balance 9.0 mEq/L Normal 4.0-15.0 [facility] ([place]) Comment on above: Performed By: #### T ROPI ####[place] [address] Glucose mass conc 132 mg/dL High 82-115 [facility] ([place]) Comment on above: Performed By: #### T ROPI ####[place] [address] Potassium molar conc 6.0 mmol/L High 3.5-5.0 [facility] ([place] Comment on above: Performed By: #### T SHIRLEYI ####[place] [address] Sodium 137 mmol/L Normal 136-145 [facility] ([place]) Comment on above: Performed By: #### T ROPI ####[place] [address] Urea nitrogen 37.0 mg/dL High 8.0-22.0 [facility] ([place] Comment on above: Performed By: #### T SHIRLEYI ####[place] [address] CBCon 06-29-2017 Erythrocyte distribution width Auto Ratio (RBC) 12.5 % Normal 11.5-15.5 [facility] ([place] Comment on above: Performed By: #### C BC, ADIFF, ANEU, URIC, CK, BMP, GFR ####[place] [address] Erythrocytes (RBC) 3.58 10 6/mcL Low 4.50-6.00 [facility] ([place]) Comment on above: Performed By: #### C BC, ADIFF, ANEU, URIC, CK, BMP, GFR ####[place] [address] Hematocrit (HCT) 33.1 % Low 40.0-52.0 [facility] ([place] Comment on above: Performed By: #### C BC, ADIFF, ANEU, URIC, CK, BMP, GFR ####[place] [address] Hemoglobin mass conc (Bld) 11.3 G/dL Low 13.0-17.5 [facility] ([place] Comment on above: Performed By: #### C BC, ADIFF, ANEU, URIC, CK, BMP, GFR ####[place] [address] MCH 31.6 pg Normal 27.0-33.0 [facility] ([place] Comment on above: Performed By: #### C BC, ADIFF, ANEU, URIC, CK, BMP, GFR ####[place] [address] MCHC mass conc (RBC) 34.2 G/dL Normal 32.0-36.0 [facility] ([place] Comment on above: Performed By: #### C BC, ADIFF, ANEU, URIC, CK, BMP, GFR ####[place] [address] MCV 92.5 fL Normal 81.0-100.0 [facility] ([place] Comment on above: Performed By: #### C BC, ADIFF, ANEU, URIC, CK, BMP, GFR ####[place] [address] Platelet mean volume (PMV) 9.0 fL Normal 6.4-10.5 [facility] ([place] Comment on above: Performed By: #### C BC, ADIFF, ANEU, URIC, CK, BMP, GFR ####[place] [address] Platelets 339 10 3/mcL Normal 150-450 [facility] ([place] Comment on above: Performed By: #### C BC, ADIFF, ANEU, URIC, CK, BMP, GFR ####[place] [address] WBC (Leukocytes) 9.40 10 3/mcL Normal 4.50-10.80 [facility] ([place]) Comment on above: Performed By: #### C BC, ADIFF, ANEU, URIC, CK, BMP, GFR ####[place] [address] CKon 06-29-2017 Creatine kinase (CK) 348 U/L High 7-185 [facility] ([place] Comment on above: Performed By: #### C BC, ADIFF, ANEU, URIC, CK, BMP, GFR ####[place] [address] Depart Summaryon 06-29-2017 Depart Summary Normal [facility] ([place]) In[place] Patient Summaryon 06-29-2017 Inpatient Patient Summary Normal [facility] ([place]) Ugo 06-29-2017 Potassium molar conc 5.2 mmol/L High 3.5-5.0 [facility] ([place] Comment on above: Performed By: #### T ROPI ####[place] [address] Nephrology Progress Noteon 1 08-30-2016 Nephrology Progress Note Normal [facility] ([place]) Trauma Progress Noteon 06-29 Trauma Progress Note Normal [facility] ([place]) URICon 06-29-2017 Uric Acid Lvl 5.9 mg/dL Normal 4.4-7.6 [facility] ([place] Comment on above: Performed By: #### C BC, ADIFF, ANEU, URIC, CK, BMP, GFR ####[place] [id number] .GFRon 06-28-2017 eGFR (non-black) 15 ml/min/1.73sqm Normal [facility] ([place]) Comment on above: Result Comment: GFR Population mean for , Non- Americans Ages 20-29 = 116 mL/min/1.73 sq.m. Ages 30-39 = 107 mL/min/1.73 sq.m. Ages 40-49 = 99 mL/min/1.73 sq.m. Ages 50-59 = 93 mL/min/1.73 sq.m. Ages 60-69 = 85 mL/min/1.73 sq.m. Ages 70+ = 75 mL/min/1.73 sq.m.Chronic Kidney Disease: Less than 60 mL/min/1.73 square metersEnd Stage Renal Disease: Less than 15 mL/min/1.73 square meters Performed By: #### B MP, GFR ####[address] [address] eGFR (non-black) 12 ml/min/1.73sqm Normal [facility] ([place]) Comment on above: Result Comment: GFR Population mean for , Non- Americans Ages 20-29 = 116 mL/min/1.73 sq.m. Ages 30-39 = 107 mL/min/1.73 sq.m. Ages 40-49 = 99 mL/min/1.73 sq.m. Ages 50-59 = 93 mL/min/1.73 sq.m. Ages 60-69 = 85 mL/min/1.73 sq.m. Ages 70+ = 75 mL/min/1.73 sq.m.Chronic Kidney Disease: Less than 60 mL/min/1.73 square metersEnd Stage Renal Disease: Less than 15 mL/min/1.73 square meters Performed By: #### B MP, GFR ####[place] [address] BMPon 06-28-2017 BUN/Creatinine Ratio 11.6 ratio Normal 10.0-22.0 [facility] ([place]) Comment on above: Performed By: #### B MP, GFR ####[place] [address] Creatinine 4.81 mg/dL High 0.60-1.40 [facility] ([place]) Comment on above: Performed By: #### B MP, GFR ####[place] [address] Calcium 8.0 mg/dL Low 8.4-10.1 [facility] ([place] Comment on above: Performed By: #### B MP, GFR ####[place] [address] Chloride 107 mmol/L Normal 98-110 [facility] ([place] Comment on above: Performed By: #### B MP, GFR ####[place] [address] CO2 20 mmol/L Low 22-32 [facility] ([place] Comment on above: Performed By: #### B MP, GFR ####[place] [address] Electrolyte Balance 11.0 mEq/L Normal 4.0-15.0 [facility] ([place]) Comment on above: Performed By: #### B MP, GFR ####[place] [address] Glucose mass conc 111 mg/dL Normal 82-115 [facility] ([place]) Comment on above: Performed By: #### B MP, GFR ####[place] [address] Potassium molar conc 5.3 mmol/L High 3.5-5.0 [facility] ([place]) Comment on above: Performed By: #### B MP, GFR ####[place] [address] Sodium 138 mmol/L Normal 136-145 [facility] ([place]) Comment on above: Performed By: #### B MP, GFR ####[place] [address] Urea nitrogen 56.0 mg/dL High 8.0-22.0 [facility] ([place]) Comment on above: Performed By: #### B MP, GFR ####[place] [address] CRURon 06-28-2017 Creatinine 117.0 mg/dL Normal [facility] ([place]) Comment on above: Performed By: #### CAMILA Matias, NAUR ####[place] [address] NAURon 06-28-2017 Sodium 90.0 mmol/L Normal [facility] ([place]) Comment on above: Performed By: #### CAMILA Matias, NAUR ####[place] [address] Nephrology Consultationon Nephrology Consultation Normal [facility] ([place]) Neurology Consultationon Neurology Consultation Normal [facility] ([place]) Progress Noteon 06-28-2017 Progress Note Normal [facility] ([place]) Trauma Progress Noteon 06-28 Trauma Progress Note Normal [facility] ([place]) UAon 06-28-2017 UA Appear Clear Normal Clear [facility] ([place] Comment on above: Performed By: #### U CAMILA Vidal, NAUR ####[place] [address] UA Blood Trace Normal Neg-Trace [facility] ([place] Comment on above: Performed By: #### U A CRNATE, NAUR ####[place] [address] UA Leuk Est Negative Normal Negative [facility] ([place]) Comment on above: Performed By: #### CAMILA Matias NAUR ####[address] [address] UA Nitrite Negative Normal Negative [facility] ([place]) Comment on above: Performed By: #### CAMILA Matias NANATE ####[address] [address] UA pH 5.0 Normal 5.0 - 8.0 [facility] ([place]) Comment on above: Performed By: #### CAMILA Matias NAUR ####[address] [address] UA Protein 30 mg/dL Normal Negative [facility] ([place]) Comment on above: Performed By: #### CAMILA Matias NAUR ####[address] [address] UA Spec Grav 1.015 Normal 1.006-1.029 [facility] ([place]) Comment on above: Performed By: #### CAMILA Matias NAUR ####[place] [address] UA Specimen Type Clean Catch Normal [facility] ([place]) Comment on above: Performed By: #### CAMILA Matias NAUR ####[place] [address] UA Urobilinogen 0.2 E.U./dL Normal 0.2-1.0 [facility] ([place] Comment on above: Performed By: #### CAMILA Matias NAUR ####[address] [address] Urine, color Yellow Normal [facility] ([place]) Comment on above: Performed By: #### U CAMILA Vidal NAUR ####[address] [address] Urine, glucose Negative Normal Negative [facility] ([place]) Comment on above: Performed By: #### CAMILA Matias NANATE ####[address] [address] Urine, ketones presence Negative Normal Neg-Trace [facility] ([place]) Comment on above: Performed By: #### CAMILA Matias NAUR ####[address] [address] Urine, urobilinogen Negative Normal Neg-Trace [facility] ([place]) Comment on above: Performed By: #### CAMILA Matias NAUR ####[address] [address] US RENALon 06-28-2017 US RENAL ORIGINALUltrasound retroperitoneum Complete: Attention Urinary tract Clinical Statement: priscila, Comparison: CT angiogram 06/25/2017 The right and left kidneys measure 10.0 cm. and 9.5 cm. in length, respectively. Renal cortical thickness and echogenicity is normal. No pelvocaliectasis, mass or perinephric fluid collection is seen on either side. Visualization of the kidneys is not adequate to exclude small lesions. There is focal scarring in the lower pole of the right kidney.. There is no free fluid seen in the abdomen. Urinary bladder is moderately distended and unremarkable.. Impression:No acute findings. There is some scarring in the lower right kidney. Interpreted By: Frank Coello MDPreliminary Report By: Frank Coello MDElectronically Signed By: Frank Coello MD Dictated Date: 06/28/2017 1:12:20 PM Prelim Date: 06/28/2017 1:12:20 PM Sign Date: 06/28/2017 1:33:09 PM Normal [facility] ([place]) .Auto Diffon 06-27-2017 Basophils Auto #/vol (Bld) 0.10 10 3/mcL Normal 0.00-0.27 [facility] ([place]) Comment on above: Performed By: #### C BC, ADIFF, ANEU, BMP, GFR ####[place] [id number] [place] [address] Basophils/100 WBC Auto (Bld) 0.4 % Normal 0.0-2.5 [facility] ([place]) Comment on above: Performed By: #### C BC, ADIFF, ANEU, BMP, GFR ####[address] [address] Eosinophils 0.00 10 3/mcL Normal 0.00-0.65 [facility] ([place]) Comment on above: Performed By: #### C BC, ADIFF, ANEU, BMP, GFR ####[address] [address] Eosinophils/100 leukocytes 0.2 % Normal 0.0-6.0 [facility] ([place] Comment on above: Performed By: #### C BC, ADIFF, ANEU, BMP, GFR ####[address] [address] Lymphocytes 1.20 10 3/mcL Normal 0.90-4.32 [facility] ([place]) Comment on above: Performed By: #### C BC, ADIFF, ANEU, BMP, GFR ####[address] [address] Lymphocytes/100 leukocytes 9.6 % Low 20.0-40.0 [facility] ([place] Comment on above: Performed By: #### C BC, ADIFF, ANEU, BMP, GFR ####[address] [address] Monocytes 1.20 10 3/mcL Normal 0.09-1.40 [facility] ([place] Comment on above: Performed By: #### C BC, ADIFF, ANEU, BMP, GFR ####[address] [address] Monocytes/100 leukocytes 9.3 % Normal 2.0-13.0 [facility] ([place] Comment on above: Performed By: #### C BC, ADIFF, ANEU, BMP, GFR ####[address] [address] Neutrophils/100 WBC Auto (Bld) 80.5 % High 50.0-75.0 [facility] ([place]) Comment on above: Performed By: #### C BC, ADIFF, ANEU, BMP, GFR ####[address] [address] .GFRon 06-27-2017 eGFR (non-black) 10 ml/min/1.73sqm Normal [facility] ([place]) Comment on above: Result Comment: GFR Population mean for , Non- Americans Ages 20-29 = 116 mL/min/1.73 sq.m. Ages 30-39 = 107 mL/min/1.73 sq.m. Ages 40-49 = 99 mL/min/1.73 sq.m. Ages 50-59 = 93 mL/min/1.73 sq.m. Ages 60-69 = 85 mL/min/1.73 sq.m. Ages 70+ = 75 mL/min/1.73 sq.m.Chronic Kidney Disease: Less than 60 mL/min/1.73 square metersEnd Stage Renal Disease: Less than 15 mL/min/1.73 square meters Performed By: #### B MP, GFR ####[address] [address] eGFR (non-black) 13 ml/min/1.73sqm Normal [facility] ([place]) Comment on above: Result Comment: GFR Population mean for , Non- Americans Ages 20-29 = 116 mL/min/1.73 sq.m. Ages 30-39 = 107 mL/min/1.73 sq.m. Ages 40-49 = 99 mL/min/1.73 sq.m. Ages 50-59 = 93 mL/min/1.73 sq.m. Ages 60-69 = 85 mL/min/1.73 sq.m. Ages 70+ = 75 mL/min/1.73 sq.m.Chronic Kidney Disease: Less than 60 mL/min/1.73 square metersEnd Stage Renal Disease: Less than 15 mL/min/1.73 square meters Performed By: #### B MP, GFR ####[address] [address] eGFR (non-black) 12 ml/min/1.73sqm Normal A [facility] ([place]) Comment on above: Result Comment: GFR Population mean for , Non- Americans Ages 20-29 = 116 mL/min/1.73 sq.m. Ages 30-39 = 107 mL/min/1.73 sq.m. Ages 40-49 = 99 mL/min/1.73 sq.m. Ages 50-59 = 93 mL/min/1.73 sq.m. Ages 60-69 = 85 mL/min/1.73 sq.m. Ages 70+ = 75 mL/min/1.73 sq.m.Chronic Kidney Disease: Less than 60 mL/min/1.73 square metersEnd Stage Renal Disease: Less than 15 mL/min/1.73 square meters Performed By: #### C BC, ADIFF, ANEU, BMP, GFR ####[address] [address] eGFR (non-black) 15 ml/min/1.73sqm Normal [facility] ([place]) Comment on above: Result Comment: GFR Population mean for , Non- Americans Ages 20-29 = 116 mL/min/1.73 sq.m. Ages 30-39 = 107 mL/min/1.73 sq.m. Ages 40-49 = 99 mL/min/1.73 sq.m. Ages 50-59 = 93 mL/min/1.73 sq.m. Ages 60-69 = 85 mL/min/1.73 sq.m. Ages 70+ = 75 mL/min/1.73 sq.m.Chronic Kidney Disease: Less than 60 mL/min/1.73 square metersEnd Stage Renal Disease: Less than 15 mL/min/1.73 square meters Performed By: #### C BC, ADIFF, ANEU, BMP, GFR ####[place] [address] .NEUABSon 06-27-2017 Neutrophils 10.30 10 3/mcL High 2.25-8.10 [facility] ([place]) Comment on above: Performed By: #### C BC, ADIFF, ANEU, BMP, GFR ####[address] [address] BMPon 06-27-2017 BUN/Creatinine Ratio 9.3 ratio Low 10.0-22.0 [facility] ([place]) Comment on above: Performed By: #### B MP, GFR ####[place] [address] Calcium 8.6 mg/dL Normal 8.4-10.1 [facility] ([place]) Comment on above: Performed By: #### B MP, GFR ####[place] [address] Chloride 102 mmol/L Normal 98-110 [facility] ([place]) Comment on above: Performed By: #### B MP, GFR ####[place] [address] CO2 21 mmol/L Low 22-32 [facility] ([place]) Comment on above: Performed By: #### B MP, GFR ####[place] [address] Creatinine 5.49 mg/dL High 0.60-1.40 [facility] ([place]) Comment on above: Performed By: #### B MP, GFR ####[place] [address] Electrolyte Balance 10.0 mEq/L Normal 4.0-15.0 [facility] ([place]) Comment on above: Performed By: #### B MP, GFR ####[place] [address] Glucose mass conc 179 mg/dL High 82-115 [facility] ([place] Comment on above: Performed By: #### B MP, GFR ####[place] [address] Potassium molar conc 5.6 mmol/L High 3.5-5.0 [facility] ([place] Comment on above: Performed By: #### B MP, GFR ####[place] [address] Sodium 133 mmol/L Low 136-145 [facility] ([place]) Comment on above: Performed By: #### B MP, GFR ####[place] [address] Urea nitrogen 51.0 mg/dL High 8.0-22.0 [facility] ([place] Comment on above: Performed By: #### B MP, GFR ####[place] [address] BUN/Creatinine Ratio 9.8 ratio Low 10.0-22.0 [facility] ([place] Comment on above: Performed By: #### C BC, ADIFF, ANEU, BMP, GFR ####[place] [address] Creatinine 4.81 mg/dL High 0.60-1.40 [facility] ([place]) Comment on above: Performed By: #### C BC, ADIFF, ANEU, BMP, GFR ####[place] [address] Urea nitrogen 47.0 mg/dL High 8.0-22.0 [facility] ([place] Comment on above: Performed By: #### C BC, ADIFF, ANEU, BMP, GFR ####[place] [address] Calcium 8.2 mg/dL Low 8.4-10.1 [facility] ([place] Comment on above: Performed By: #### C BC, ADIFF, ANEU, BMP, GFR ####[place] [address] Chloride 103 mmol/L Normal 98-110 [facility] ([place]) Comment on above: Performed By: #### C BC, ADIFF, ANEU, BMP, GFR ####[place] [address] CO2 21 mmol/L Low 22-32 [facility] ([place] Comment on above: Performed By: #### C BC, ADIFF, ANEU, BMP, GFR ####[place] [address] Electrolyte Balance 12.0 mEq/L Normal 4.0-15.0 [facility] ([place]) Comment on above: Performed By: #### C BC, ADIFF, ANEU, BMP, GFR ####[place] [address] Glucose mass conc 144 mg/dL High 82-115 [facility] ([place]) Comment on above: Performed By: #### C BC, ADIFF, ANEU, BMP, GFR ####[place] [address] Potassium molar conc 5.1 mmol/L High 3.5-5.0 [facility] ([place] Comment on above: Performed By: #### C BC, ADIFF, ANEU, BMP, GFR ####[place] [address] Sodium 136 mmol/L Normal 136-145 [facility] ([place] Comment on above: Performed By: #### C BC, ADIFF, ANEU, BMP, GFR ####[place] [address] CBCon 06-27-2017 Erythrocyte distribution width Auto Ratio (RBC) 13.0 % Normal 11.5-15.5 [facility] ([place]) Comment on above: Performed By: #### C BC, ADIFF, ANEU, BMP, GFR ####[place] [address] Erythrocytes (RBC) 3.46 10 6/mcL Low 4.50-6.00 [facility] ([place] Comment on above: Performed By: #### C BC, ADIFF, ANEU, BMP, GFR ####[place] [address] Hematocrit (HCT) 32.1 % Low 40.0-52.0 [facility] ([place] Comment on above: Performed By: #### C BC, ADIFF, ANEU, BMP, GFR ####[place] [address] Hemoglobin mass conc (Bld) 10.6 G/dL Low 13.0-17.5 [facility] ([place]) Comment on above: Performed By: #### C BC, ADIFF, ANEU, BMP, GFR ####[place] [address] MCH 30.6 pg Normal 27.0-33.0 [facility] ([place] Comment on above: Performed By: #### C BC, ADIFF, ANEU, BMP, GFR ####[place] [address] MCHC mass conc (RBC) 33.0 G/dL Normal 32.0-36.0 [facility] ([place]) Comment on above: Performed By: #### C BC, ADIFF, ANEU, BMP, GFR ####[place] [address] MCV 92.7 fL Normal 81.0-100.0 [facility] ([place] Comment on above: Performed By: #### C BC, ADIFF, ANEU, BMP, GFR ####[address] [address] Platelet mean volume (PMV) 9.0 fL Normal 6.4-10.5 [facility] ([place]) Comment on above: Performed By: #### C BC, ADIFF, ANEU, BMP, GFR ####[address] [address] Platelets 269 10 3/mcL Normal 150-450 [facility] ([place]) Comment on above: Performed By: #### C BC, ADIFF, ANEU, BMP, GFR ####[address] [address] WBC (Leukocytes) 12.80 10 3/mcL High 4.50-10.80 [facility] ([place]) Comment on above: Performed By: #### C BC, ADIFF, ANEU, BMP, GFR ####[place] [address] Cardiology Progress Noteon 1 08-28-2016 Cardiology Progress Note Normal [facility] ([place]) History and Physicalon 06-27 History and Physical Normal [facility]) Progress Noteon 06-27-2017 Progress Note Normal [facility] ([place]) .Auto Diffon 06-26-2017 Basophils Auto #/vol (Bld) 0.00 10 3/mcL Normal 0.00-0.27 [facility] ([place] Comment on above: Performed By: #### C BC, ADIFF, ANEU, BMP, GFR ####[address] [address] Basophils/100 WBC Auto (Bld) 0.2 % Normal 0.0-2.5 [facility] ([place] Comment on above: Performed By: #### C BC, ADIFF, ANEU, BMP, GFR ####[address] [address] Eosinophils 0.00 10 3/mcL Normal 0.00-0.65 [facility] ([place] Comment on above: Performed By: #### C BC, ADIFF, ANEU, BMP, GFR ####[address] [address] Eosinophils/100 leukocytes 0.0 % Normal 0.0-6.0 [facility] ([place] Comment on above: Performed By: #### C BC, ADIFF, ANEU, BMP, GFR ####[address] [address] Lymphocytes 1.40 10 3/mcL Normal 0.90-4.32 [facility] ([place]) Comment on above: Performed By: #### C BC, ADIFF, ANEU, BMP, GFR ####[address] [address] Lymphocytes/100 leukocytes 13.1 % Low 20.0-40.0 [facility] ([place] Comment on above: Performed By: #### C BC, ADIFF, ANEU, BMP, GFR ####[address] [address] Monocytes 1.10 10 3/mcL Normal 0.09-1.40 [facility] ([place] Comment on above: Performed By: #### C BC, ADIFF, ANEU, BMP, GFR ####[address] [address] Monocytes/100 leukocytes 10.4 % Normal 2.0-13.0 [facility] ([place] Comment on above: Performed By: #### C BC, ADIFF, ANEU, BMP, GFR ####[address] [address] Neutrophils/100 WBC Auto (Bld) 76.3 % High 50.0-75.0 [facility] ([place] Comment on above: Performed By: #### C BC, ADIFF, ANEU, BMP, GFR ####[address] [address] .GFRon 06-26-2017 eGFR (non-black) 34 ml/min/1.73sqm Normal [facility] ([place]) Comment on above: Result Comment: GFR Population mean for , Non- Americans Ages 20-29 = 116 mL/min/1.73 sq.m. Ages 30-39 = 107 mL/min/1.73 sq.m. Ages 40-49 = 99 mL/min/1.73 sq.m. Ages 50-59 = 93 mL/min/1.73 sq.m. Ages 60-69 = 85 mL/min/1.73 sq.m. Ages 70+ = 75 mL/min/1.73 sq.m.Chronic Kidney Disease: Less than 60 mL/min/1.73 square metersEnd Stage Renal Disease: Less than 15 mL/min/1.73 square meters Performed By: #### C BC, ADIFF, ANEU, BMP, GFR ####[address] [address] eGFR (non-black) 41 ml/min/1.73sqm Normal [facility] ([place]) Comment on above: Result Comment: GFR Population mean for , Non- Americans Ages 20-29 = 116 mL/min/1.73 sq.m. Ages 30-39 = 107 mL/min/1.73 sq.m. Ages 40-49 = 99 mL/min/1.73 sq.m. Ages 50-59 = 93 mL/min/1.73 sq.m. Ages 60-69 = 85 mL/min/1.73 sq.m. Ages 70+ = 75 mL/min/1.73 sq.m.Chronic Kidney Disease: Less than 60 mL/min/1.73 square metersEnd Stage Renal Disease: Less than 15 mL/min/1.73 square meters Performed By: #### C BC, ADIFF, ANEU, BMP, GFR ####[address] [address] .NEUABSon 06-26-2017 Neutrophils 8.10 10 3/mcL Normal 2.25-8.10 [facility] ([place] Comment on above: Performed By: #### C BC, ADIFF, ANEU, BMP, GFR ####[address] [address] BMPon 06-26-2017 BUN/Creatinine Ratio 12.6 ratio Normal 10.0-22.0 [facility] ([place] Comment on above: Performed By: #### C BC, ADIFF, ANEU, BMP, GFR ####[place] [address] Creatinine 1.98 mg/dL High 0.60-1.40 [facility] ([place] Comment on above: Performed By: #### C BC, ADIFF, ANEU, BMP, GFR ####[address] [address] Calcium 8.4 mg/dL Normal 8.4-10.1 [facility] ([place] Comment on above: Performed By: #### C BC, ADIFF, ANEU, BMP, GFR ####[address] [address] Chloride 108 mmol/L Normal 98-110 [facility] ([place] Comment on above: Performed By: #### C BC, ADIFF, ANEU, BMP, GFR ####[address] [address] CO2 21 mmol/L Low 22-32 [facility] ([place] Comment on above: Performed By: #### C BC, ADIFF, ANEU, BMP, GFR ####[place] [address] Electrolyte Balance 9.0 mEq/L Normal 4.0-15.0 [facility] ([place] Comment on above: Performed By: #### C BC, ADIFF, ANEU, BMP, GFR ####[address] [address] Glucose mass conc 122 mg/dL High 82-115 [facility] ([place] Comment on above: Performed By: #### C BC, ADIFF, ANEU, BMP, GFR ####[address] [address] Potassium molar conc 5.2 mmol/L High 3.5-5.0 [facility] ([place] Comment on above: Performed By: #### C BC, ADIFF, ANEU, BMP, GFR ####[place] [address] Sodium 138 mmol/L Normal 136-145 [facility] ([place] Comment on above: Performed By: #### C BC, ADIFF, ANEU, BMP, GFR ####[address] [address] Urea nitrogen 25.0 mg/dL High 8.0-22.0 [facility] ([place] Comment on above: Performed By: #### C BC, ADIFF, ANEU, BMP, GFR ####[place] [address] CBCon 06-26-2017 Erythrocyte distribution width Auto Ratio (RBC) 12.8 % Normal 11.5-15.5 [facility] ([place] Comment on above: Performed By: #### C BC, ADIFF, ANEU, BMP, GFR ####[place] [address] Erythrocytes (RBC) 3.85 10 6/mcL Low 4.50-6.00 [facility] ([place] Comment on above: Performed By: #### C BC, ADIFF, ANEU, BMP, GFR ####[place] [address] Hematocrit (HCT) 35.8 % Low 40.0-52.0 [facility] ([place] Comment on above: Performed By: #### C BC, ADIFF, ANEU, BMP, GFR ####[place] [address] Hemoglobin mass conc (Bld) 12.0 G/dL Low 13.0-17.5 [facility] ([place] Comment on above: Performed By: #### C BC, ADIFF, ANEU, BMP, GFR ####[place] [address] MCH 31.1 pg Normal 27.0-33.0 [facility] ([place] Comment on above: Performed By: #### C BC, ADIFF, ANEU, BMP, GFR ####[place] [address] MCHC mass conc (RBC) 33.4 G/dL Normal 32.0-36.0 [facility] ([place] Comment on above: Performed By: #### C BC, ADIFF, ANEU, BMP, GFR ####[place] [address] MCV 93.0 fL Normal 81.0-100.0 [facility] ([place] Comment on above: Performed By: #### C BC, ADIFF, ANEU, BMP, GFR ####[facility] [place] [address] Platelet mean volume (PMV) 9.5 fL Normal 6.4-10.5 [facility] ([place] Comment on above: Performed By: #### C BC, ADIFF, ANEU, BMP, GFR ####[facility] [place] [address] Platelets 306 10 3/mcL Normal 150-450 [facility] ([place] Comment on above: Performed By: #### C BC, ADIFF, ANEU, BMP, GFR ####[facility] [place] [address] WBC (Leukocytes) 10.60 10 3/mcL Normal 4.50-10.80 [facility] ([place]) Comment on above: Performed By: #### C BC, ADIFF, ANEU, BMP, GFR ####[address] [address] Cardiology Consultationon Cardiology Consultation Normal [facility] ([place]) Progress Noteon 06-26-2017 Progress Note Normal [facility] ([place] XR CHEST 2 VIEWSon 7 XR CHEST 2 VIEWS ORIGINALXR CHEST 2 VIEWS CLINICAL STATEMENT: pulmonary contusion , injury, pain COMPARISON: 06/25/2017 FINDINGS: There is left sixth and seventh rib fracture with moderate displacement laterally. No obvious pneumothorax. There is increased left base opacity in the lower lobe that is probably contusion or atelectasis. No significant pleural effusion. Heart and mediastinum are normal. IMPRESSION: Left rib fractures with left lower lobe atelectasis or chronic effusion. No large pleural effusion. Interpreted By: Frank Coello MDPreliminary Report By: Frank Coello MDElectronically Signed By: Frank Coello MD Dictated Date: 06/26/2017 9:16:34 AM Prelim Date: 06/26/2017 9:16:34 AM Sign Date: 06/26/2017 9:18:01 AM Normal [facility] ([place]) [place]R SHOULDER MINIMUM 2 VIEWS LEFTon 06-26-2017 XR SHOULDER MINIMUM 2 VIEWS LEFT ORIGINALXR SHOULDER 3 VIEWS LEFT CLINICAL STATEMENT: pain s/p fall COMPARISON: None FINDINGS: Glenohumeral and AC joints show no fracture or dislocation. There are some rib fractures on the left side. IMPRESSION: No acute fracture or dislocation in the shoulder. Interpreted By: Frank Coelloreliminary Report By: Frank Coello MDElectronically Signed By: Frank Coello MD Dictated Date: 06/26/2017 9:14:14 AM Prelim Date: 06/26/2017 9:14:14 AM Sign Date: 06/26/2017 9:15:15 AM Normal [facility] ([place] ABD/PELVIS W/ IV CONTRAST ONLYon 06-25-2017 CT ABD/PELVIS W/ IV CONTRAST ONLY ORIGINALCT ABD/PELVIS W/ IV CONTRAST ONLY:Multiplanar coronal, sagittal, and axial reconstructions were reviewed on a separate workstation. This exam was performed according to our departmental dose optimization program, and includes the following measures where applicable: automated exposure control, adjustment of the mAs and/or kVp according to patient size and/or exam, and an iterative reconstruction algorithm. CLINICAL STATEMENT: Pain, trauma patient, left-sided rib pain, fall from ladder COMPARISON: None FINDINGS: CT thorax is dictated separately. The spleen, pancreas, adrenal glands, and gallbladder are normal. Liver is mildly fatty. The stomach and duodenum are normal. The small and large bowel exhibit no acute abnormality. Extensive diverticula are seen along the sigmoid and descending colon without evidence of acute diverticulitis. The appendix is normal. No evidence of obstruction. No pneumoperitoneum. The kidneys are symmetric in size and enhancement without focal solid mass or evidence of obstruction. Evaluation for renal stones is difficult given phase of contrast enhancement. Multiple areas of very high attenuation within the kidneys likely represents excreted contrast in the collecting structures. Subcentimeter hypodensities in the bilateral kidneys are too small to characterize, however statistically favor cysts. The ureters are not dilated. The urinary bladder is normal. On delayed images through the pelvis, there is no evidence of bladder injury or hematoma. The prostate is normal. Multiple surgical clips are seen along the inguinal regions bilaterally. The abdominal wall is intact. Atherosclerotic calcifications are seen along the abdominal aorta without aneurysmal dilation. The IVC and portal veins are patent. No retroperitoneal fluid collection. Left-sided rib fractures are again noted. The vertebra intact. No additional fractures identified. There is minimal retrolisthesis of L2 on L3. IMPRESSION: Redemonstration of left-sided rib fractures seen on a CT thorax. No additional fractures identified. No acute traumatic findings within the abdomen or pelvis. I have personally reviewed the images of this examination and agree with the resident's findings and interpretation. Interpreted By: Josafat Meraz MDPreliminary Report By: Mukesh West Signed By: Josafat Meraz MD Dictated Date: 06/25/2017 5:19:58 PM Prelim Date: 06/25/2017 5:24:41 PM Sign Date: 06/25/2017 5:35:42 PM Normal [facility] ([place]) CT THORAX W/ CONTRASTon 12-0 CT THORAX W/ CONTRAST ORIGINALCT THORAX W/ CONTRAST This exam was performed according to our departmental dose optimization program, and includes the following measures where applicable: automated exposure control, adjustment of the mAs and/or kVp according to patient size and/or exam, and an iterative reconstruction algorithm. CLINICAL Statement: pain, trauma patient, patient fell from ladder, left-sided rib pain, suspect aortic rupture, pulmonary trauma COMPARISON: None FINDINGS: The visualized thyroid gland is normal. The trachea and mainstem bronchi are patent. The esophagus is normal. Heart size is normal. No pericardial fluid. The great vessels are normal in course and caliber without dilation or evidence of traumatic injury. Minimal calcific atherosclerosis is seen along the thoracic aorta and coronary arteries. No lymphadenopathy is seen within the axilla, mediastinum, or adrian. There is no pneumothorax or pleural effusion. Minimal consolidation at the left lung base and along the left lateral chest wall likely represents pulmonary contusion from adjacent rib fractures. Rib fracture involving the left sixth rib posterolaterally best seen on image 110 demonstrates minimal comminution and cortical displacement by approximate 4 mm. There is adjacent gas along the thoracic wall musculature without pneumothorax. There are nondisplaced rib fractures involving the left seventh, eighth, and ninth ribs posterior laterally. No right-sided rib fractures are identified. No vertebral fractures. CT abdomen/pelvis is dictated separately. Limited images to the upper abdomen are unremarkable. IMPRESSION: Multiple left-sided rib fractures, with 4 mm displacement of the left sixth rib posterior laterally. There is adjacent pulmonary contusion. No pneumothorax or pleural fluid collection. I have personally reviewed the images of this examination and agree with the resident's findings and interpretation. Interpreted By: Josafat Merazreliminary Report By: Mukesh Westically Signed By: Josafat Meraz MD Dictated Date: 06/25/2017 5:12:51 PM Prelim Date: 06/25/2017 5:19:46 PM Sign Date: 06/25/2017 5:31:31 PM Normal [facility] ([place]) History and Physicalon 06-25 History and Physical Normal [facility] ([place]) TROPIon 06-25-2017 Troponin I.cardiac mass conc ng/mL Normal 0.000-0.040 [facility] ([place]) Comment on above: Result Comment: Trop onin I reference ranges (04/02/14): 0.00-0.040 ng/mL Negative and non-diagnostic. >0.040 ng/mL Consistent with cardiac damage, increased clinical risk and possibility of myocardial infarction. Serial measurements, a rise & fall in test results, clinical history, appropriate symptoms and/or ECG changes may help assess possibility of MS. *Other non-acute coronary syndrome conditions such as CHF, myocarditis, pulmonary emboli, sepsis and cardiac surgery could result in myocardial damage and increased troponin levels. Performed By: #### T YA ####[place] [address] XR CHEST 1 VIEWon 06-25-2017 XR CHEST 1 VIEW ORIGINALXR CHEST 1 VIEW Upright portable view of the chest was obtained at 5:29 PM. CLINICAL STATEMENT: Pain, trauma patient, patient fell from ladder COMPARISON: CT thorax 06/25/2017 FINDINGS: The cardiac mediastinal silhouette is within normal limits. Minimal patchiness at the left lung base correlates with areas of pulmonary contusion seen on the CT thorax. The rib fractures seen on the CT thorax are not as well evaluated radiographically, however the left sixth rib fracture is visible. No pneumothorax, pleural effusion, or vascular congestion. IMPRESSION: Minimal patchiness at the left lung base consistent with pulmonary contusion seen on the CT thorax exam. Left-sided rib fractures. No pneumothorax. I have personally reviewed the images of this examination and agree with the resident's findings and interpretation. Interpreted By: Josafat Meraz MDPreliminary Report By: Mukesh Westically Signed By: Josafat Meraz MD Dictated Date: 06/25/2017 5:35:34 PM Prelim Date: 06/25/2017 5:37:58 PM Sign Date: 06/25/2017 5:49:04 PM Normal [facility] ([place]) XR PELVIS 1 OR 2 VIEWSon XR PELVIS 1 OR 2 VIEWS ORIGINALXR PELVIS 1 OR 2 VIEWS CLINICAL STATEMENT: Pain, trauma patient, patient fell from ladder COMPARISON: CT abdomen/pelvis 06/25/2017 FINDINGS: The pelvic ring is intact. No acute fracture or dislocation is identified. Surgical clips are noted overlying the bilateral inguinal regions. IMPRESSION: No acute fracture or dislocation. I have personally reviewed the images of this examination and agree with the resident's findings and interpretation. Interpreted By: Josafat Merazreliminary Report By: Mukesh West DOElectronically Signed By: Josafat Meraz MD Dictated Date: 06/25/2017 5:34:45 PM Prelim Date: 06/25/2017 5:35:26 PM Sign Date: 06/25/2017 5:48:16 PM Normal [facility] ([place]) Vital Signs Date Time Vital Sign Value Performing Clinician Facility 02-03-2025 09:15-0400 Body mass index (BMI) [Ratio] 25.9 kg/m2 Trinity Mendozagar WINDOW ASSEMBLER-C Work Phone: [facility] 02-03-2025 09:15-0400 Body weight 70.48 kg Trinity Coronado WINDOW ASSEMBLER-C Work Phone: [facility] 02-03-2025 08:12-0400 Diastolic blood pressure 59 mm[Hg] Trinity Dajuan WINDOW ASSEMBLER -C Work Phone: [facility] 02-03-2025 08:12-0400 Heart rate 81 /min Trinity Coronado [employer]INDOW ASSEMBLER-C Work Phone: [facility] 02-03-2025 08:12-0400 Systolic blood pressure 129 mm[Hg] Trinity Coronado WINDOW ASSEMBLER- C Work Phone: [facility] 02-03-2025 06:00-0400 Body temperature 97.9 [degF] Trinity Coronado WINDOW ASSEMBLER-C Work Phone: [facility] 02-03-2025 06:00-0400 Respiratory rate 17 /min Trinity Dajuan WINDOW ASSEMBLER-C Work Phone: [facility] 02-02-2025 21:45-0400 SaO2% (BldA) [Mass fraction] 99 % Trinity Dajuan WINDOW ASSEMBLER-C Work Phone: [facility] 01-31-2025 15:55-0400 Body height 165.1 cm Trinity Dajuan WINDOW ASSEMBLER-C Work Phone: [facility] 01-07-2025 23:15-0400 Body temperature 98.1 [degF] Trinity Dajuan WINDOW ASSEMBLER-C Work Phone: [facility] 01-07-2025 23:15-0400 Diastolic blood pressure 52 mm[Hg] Trinity Dajuan WINDOW ASSEMBLER -C Work Phone: [facility] 01-07-2025 23:15-0400 Heart rate 74 /min Trinity Dajuan WINDOW ASSEMBLER-C Work Phone: [facility] 01-07-2025 23:15-0400 Respiratory rate 16 /min Trinity Dajuan WINDOW ASSEMBLER-C Work Phone: [facility] 01-07-2025 23:15-0400 SaO2% (BldA) [Mass fraction] 96 % Trinity Dajuan WINDOW ASSEMBLER-C Work Phone: [facility] 01-07-2025 23:15-0400 Systolic blood pressure 108 mm[Hg] Trinity Dajuan WINDOW ASSEMBLER- C Work Phone: [facility] 01-07-2025 09:46-0400 Inhaled oxygen flow rate 2 L/min Trinity Dajuan WINDOW ASSEMBLER -C Work Phone: [facility] 01-06-2025 13:55-0400 Body height 167.64 cm Trinity Dajuan WINDOW ASSEMBLER-C Work Phone: [facility] 01-06-2025 13:55-0400 Body weight 62.86 kg Trinity Dajuan WINDOW ASSEMBLER-C Work Phone: [facility] 01-03-2025 14:09-0400 Body mass index (BMI) [Ratio] 22.4 kg/m2 Trinity Dajuan WINDOW ASSEMBLER-C Work Phone: [facility] 01-03-2025 13:33-0400 Body temperature 98.4 [degF] Trinity Dajuan WINDOW ASSEMBLER-C Work Phone: [facility] 01-03-2025 13:33-0400 Diastolic blood pressure 72 mm[Hg] Trinity Dajuan WINDOW ASSEMBLER -C Work Phone: [facility] 01-03-2025 13:33-0400 Heart rate 100 /min Trinity Dajuan WINDOW ASSEMBLER-C Work Phone: [facility] 01-03-2025 13:33-0400 Respiratory rate 16 /min Trinity Dajuan WINDOW ASSEMBLER-C Work Phone: [facility] 01-03-2025 13:33-0400 SaO2% (BldA) [Mass fraction] 100 % Trinity Dajuan WINDOW ASSEMBLER-C Work Phone: [facility] 01-03-2025 13:33-0400 Systolic blood pressure 132 mm[Hg] Trinity Dajuan WINDOW ASSEMBLER- C Work Phone: [facility] 01-03-2025 13:00-0400 Diastolic blood pressure 74 mm[Hg] Trinity Dajuan WINDOW ASSEMBLER -C Work Phone: [facility] 01-03-2025 13:00-0400 Heart rate 103 /min Trinity Dajuan WINDOW ASSEMBLER-C Work Phone: [facility] 01-03-2025 13:00-0400 Respiratory rate 18 /min Trinity Dajuan WINDOW ASSEMBLER-C Work Phone: [facility] 01-03-2025 13:00-0400 SaO2% (BldA) [Mass fraction] 95 % Trinity Dajuan WINDOW ASSEMBLER-C Work Phone: [facility] 01-03-2025 13:00-0400 Systolic blood pressure 131 mm[Hg] Trinity Dajuan WINDOW ASSEMBLER- C Work Phone: [facility] 01-03-2025 08:46-0400 Body height 167.64 cm Trinitylisette Coronado WINDOW ASSEMBLER-C Work Phone: [facility] 01-03-2025 08:46-0400 Body mass index (BMI) [Ratio] 23.3 kg/m2 Trniity Dajuan WINDOW ASSEMBLER-C Work Phone: [facility] 01-03-2025 08:46-0400 Body temperature 97.9 [degF] Trinity Dajuan WINDOW ASSEMBLER-C Work Phone: [facility] 01-03-2025 08:46-0400 Body weight 65.5 kg Trinitylisette Coronado WINDOW ASSEMBLER-C Work Phone: [facility] 01-03-2025 05:46-0400 Diastolic blood pressure 82 mm[Hg] Trinity Dajuan WINDOW ASSEMBLER -C Work Phone: [facility] 01-03-2025 05:46-0400 Heart rate 87 /min Trinitylisette Coronado WINDOW ASSEMBLER-C Work Phone: [facility] 01-03-2025 05:46-0400 Systolic blood pressure 137 mm[Hg] Trinity Dajuan WINDOW ASSEMBLER- C Work Phone: [facility] 01-02-2025 10:00-0400 Respiratory rate 16 /min Trinity Mendozagar WINDOW ASSEMBLER-C Work Phone: [facility] 01-02-2025 10:00-0400 SaO2% (BldA) [Mass fraction] 97 % Trinity Dajuan WINDOW ASSEMBLER-C Work Phone: [facility] 01-02-2025 09:47-0400 Body mass index (BMI) [Ratio] 22.4 kg/m2 Trinity Dajuan WINDOW ASSEMBLER-C Work Phone: [facility] 01-02-2025 09:47-0400 Body temperature 97.3 [degF] Trinity Dajuan WINDOW ASSEMBLER-C Work Phone: [facility] 01-02-2025 09:47-0400 Body weight 63.14 kg Trinity Coronaod WINDOW ASSEMBLER-C Work Phone: [facility] 01-01-2025 11:05-0400 Inhaled oxygen flow rate 98 L/min Trinity Coronado WINDOW ASSEMBLER -C Work Phone: [facility] 12-13-2024 13:50-0400 SaO2% (BldA) [Mass fraction] 99 % [facility] Comment on above: Order Comment: Specimen Type: ARTERIAL B LOOD SPECIMENOrdering Facility: [facility] Address: [address] [place] [address] Performed By: #### A LLBG ####[facility]ORYCLIA [id number] [address] 12-13-2024 06:23-0400 SaO2% (BldA) [Mass fraction] 98 % [facility] Comment on above: Order Comment: Specimen Type: ARTERIAL B LOOD SPECIMENOrdering Facility: [facility] Address: [address] [place] [address] Performed By: #### A LLBG ####[facility]ORYCLIA [id number] [address] 12-13-2024 05:01-0400 SaO2% (BldA) [Mass fraction] 86 % [facility] Comment on above: Order Comment: Specimen Type: ARTERIAL B LOOD SPECIMENOrdering Facility: [facility] Address: [address] [place] [address] Performed By: #### A LLBG ####[facility]ORYCLIA [id number] [address] 12-13-2024 02:38-0400 SaO2% (BldA) [Mass fraction] 98 % [facility] Comment on above: Order Comment: Specimen Type: ARTERIAL B LOOD SPECIMENOrdering Facility: [facility] Address: [address] [place] [address] Performed By: #### A LLBG ####[facility] LABORATORYCLIA [id number] [place] [address] [facility] 12-08-2024 09:02-0400 SaO2% (BldA) [Mass fraction] 99 % [facility] Comment on above: Order Comment: Specimen Type: ARTERIAL B LOOD SPECIMENOrdering Facility: [facility] Address: [address] [place] [address] Performed By: #### A LLBG ####[facility]ORATORYCLIA [id number] [place] [address] [facility] 12-06-2024 04:34-0400 SaO2% (BldA) [Mass fraction] 99 % [facility] Comment on above: Order Comment: Specimen Type: ARTERIAL B LOOD SPECIMENOrdering Facility: [facility] Address: [address] [place] [address] Performed By: #### A LLBG ####[facility] CENTER[facility] [id number] [place] [address] [facility] 12-05-2024 06:52-0400 SaO2% (BldA) [Mass fraction] 93 % [facility] Comment on above: Order Comment: Specimen Type: ARTERIAL B LOOD SPECIMENOrdering Facility: [facility] Address: [address] [place] [address] Performed By: #### A LLBG ####[facility]ATORYCLIA [id number] [place] [address] [facility] 12-05-2024 00:10-0400 SaO2% (BldA) [Mass fraction] 96 % [facility] Comment on above: Order Comment: Specimen Type: ARTERIAL B LOOD SPECIMENOrdering Facility: [facility] Address: [address] [place] [address] Performed By: #### A LLBG ####[facility]ATORYCLIA [id number] [place] [address] [facility] 12-04-2024 20:23-0400 SaO2% (BldA) [Mass fraction] 97 % JEREMIAS MEYERS [facility] Comment on above: Order Comment: Specimen Type: ARTERIAL B LOOD SPECIMENOrdering Facility: [facility] Address: [address] [place] [address] Performed By: #### A LLBG ####[facility]ATORYCLIA [id number] [place] [address] [place] 12-02-2024 02:33-0400 Body temperature 98.7 [degF] Trinity Dajuan WINDOW ASSEMBLER-C Work Phone: [facility] 12-02-2024 02:33-0400 Diastolic blood pressure 86 mm[Hg] Trinity Dajuan W[employer]OW ASSEMBLER -C Work Phone: [facility] 12-02-2024 02:33-0400 Heart rate 120 /min Trinity Dajuan W[employer]OW ASSEMBLER-C Work Phone: [facility] 12-02-2024 02:33-0400 Respiratory rate 16 /min Trinity Dajuan WINDOW ASSEMBLER-C Work Phone: [facility] 12-02-2024 02:33-0400 SaO2% (BldA) [Mass fraction] 99 % Trinity Dajuan [employer]INDOW ASSEMBLER-C Work Phone: [facility] 12-02-2024 02:33-0400 Systolic blood pressure 152 mm[Hg] Trinity Dajuan W[employer]OW ASSEMBLER- C Work Phone: [facility] 12-01-2024 22:01-0400 Body height 165.1 cm Trinity Dajuan [employer]OW ASSEMBLER-C Work Phone: [facility] 12-01-2024 22:01-0400 Body mass index (BMI) [Ratio] 28 kg/m2 Trinity Dajuan WINDOW ASSEMBLER-C Work Phone: [facility] 12-01-2024 22:01-0400 Body weight 76.5 kg Trinity Dajuan WINDOW ASSEMBLER-C Work Phone: [facility] 11-29-2024 12:40-0400 Body temperature 98 [degF] Trinity Dajuan W[employer]OW ASSEMBLER-C Work Phone: [facility] 11-29-2024 12:40-0400 Diastolic blood pressure 100 mm[Hg] Trinity Dajuan W[employer]OW ASSEMBLER -C Work Phone: [facility] 11-29-2024 12:40-0400 Heart rate 110 /min Trinity Dajuan WINDOW ASSEMBLER-C Work Phone: [facility] 11-29-2024 12:40-0400 Respiratory rate 18 /min Trinitylisette Coronado WINDOW ASSEMBLER-C Work Phone: [facility] 11-29-2024 12:40-0400 SaO2% (BldA) [Mass fraction] 98 % Trinity Coronado WINDOW ASSEMBLER-C Work Phone: [facility] 11-29-2024 12:40-0400 Systolic blood pressure 165 mm[Hg] Trinity Coronado W[employer]OW ASSEMBLER- C Work Phone: [facility] 11-28-2024 10:17-0400 Inhaled oxygen flow rate 2 L/min Trinity Coronado W[employer]OW ASSEMBLER -C Work Phone: [facility] 11-27-2024 15:51-0400 Body height 165.1 cm Trinity Coronado WINDOW ASSEMBLER-C Work Phone: [facility] 11-27-2024 15:51-0400 Body mass index (BMI) [Ratio] 27.1 kg/m2 Trinity Coronado WINDOW ASSEMBLER-C Work Phone: [facility] 11-27-2024 15:51-0400 Body weight 73.9 kg Trinity Coronado WINDOW ASSEMBLER-C Work Phone: [facility] 04-05-2023 13:14-0400 Body height 165.[address] Guillaume Hancock Work Phone: [facility] 04-05-2023 13:14-0400 Body mass index (BMI) [Ratio] 27.8 kg/m2 Dr. Guillaume Hancock Work Phone: [facility] 04-05-2023 13:14-0400 Body weight 75.[address] Guillaume Hancock Work Phone: [facility] 01-01-2023 13:15-0400 Body height 165.[address] Guillaume Hancock Work Phone: [facility] 01-01-2023 13:15-0400 Body mass index (BMI) [Ratio] 28.8 kg/m2 Dr. Guillaume Hancock Work Phone: [facility] 01-01-2023 13:15-0400 Body temperature 97.6 [degF] Dr. Guillaume Hancock Work Phone: [facility] 01-01-2023 13:15-0400 Body weight 78.[address] Guillaume Hancock Work Phone: [facility] 01-01-2023 13:15-0400 Diastolic blood pressure 94 mm[Hg] Dr. Guillaume hopper Work Phone: [facility] 01-01-2023 13:15-0400 Heart rate 87 /min Dr. Guillaume Hancock Work Phone: [facility] 01-01-2023 13:15-0400 Respiratory rate 20 /min Dr. Guillaume Hancock Work Phone: [facility] 01-01-2023 13:15-0400 SaO2% (BldA) [Mass fraction] 96 % Dr. Guillaume Hancock Work Phone: [facility] 01-01-2023 13:15-0400 Systolic blood pressure 149 mm[Hg] Dr. Guillaume Hancock Work Phone: [facility] Encounters Encounter Date Encounter Type Care Provider Facility Start: 02-12-2025 End: 02-12-2025 ambulatory Trinity Coronado NP-Dick Work Phone: -Cardiovascular Services Start: 02-12-2025 End: 02-12-2025 Trinity HUERTA -Cardiovascular Services Work Phone: Start: 02-12-2025 End: 02-12-2025 ambulatory [facility] Facility:[facility] Start: 02-07-2025 End: 02-08-2025 Telephone encounter Prerna Mcgill PERIPHERAL EDP EQUIPMENT OPERATOR.HOSTESS Work Phone: [facility] Comment on above: Orders Start: 02-07-2025 End: 02-07-2025 Office outpatient visit 40 minutes Prerna Mcgill PERIPHERAL EDP EQUIPMENT OPERATOR.HOSTESS Work Phone: [facility] Comment on above: Retention of urine ( Primary Dx) Start: 02-07-2025 End: 02-07-2025 ambulatory [facility] Facility:[facility] Start: 02-02-2025 Dr. Marie Patino [facility] Work Phone: Start: 02-01-2025 End: 02-01-2025 Telephone encounter Jack Mota MD Work Phone: [facility] [place] Start: 02-01-2025 Dr. Marie Patino [facility] Work Phone: Start: 01-31-2025 Dr. Marie Patino [facility] Work Phone: Start: 01-30-2025 Dr. 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 Marie Patino [facility] Work Phone: Start: 01-25-2025 End: 01-29-2025 Telephone encounter Awilda Leal PERIPHERAL EDP EQUIPMENT OPERATOR.HOSTESS Work Phone: Urology Comment on above: Appointment Start: 01-25-2025 Dr. Marie Patino [facility] Work Phone: Start: 01-24-2025 Dr. Marie Patino [facility] Work Phone: Start: 01-23-2025 Dr. Marie Patino [facility] Work Phone: Start: 01-22-2025 Dr. Marie Patino [facility] Work Phone: Start: 01-19-2025 Dr. Marie Patino [facility] Work Phone: Start: 01-18-2025 Dr. Marie Patino [facility] Work Phone: Start: 01-17-2025 Dr. Jeremy Faith [facility] Work Phone: Start: 01-16-2025 Judson Matute DO -[facility] Start: 01-16-2025 Dr. Bill Colon MD -[facility] Start: 01-16-2025 Dr. Marie Patino [facility] Work Phone: Start: 01-15-2025 Dr. Marie Patino [facility] Work Phone: Start: 01-12-2025 Dr. Marie Patino [facility] Work Phone: Start: 01-11-2025 Dr. Marie Patino [facility] Work Phone: Start: 01-11-2025 End: 02-03-2025 [facility] Work [facility] Start: 01-11-2025 ambulatory Marie Patino Facility:[facility] Start: 01-11-2025 End: 02-03-2025 Evaluation and management of inpatient Trinity Dajuan WINDOW ASSEMBLER-C Work Phone: -Rehab Unit Start: 01-08-2025 End: 01-11-2025 Evaluation [facility] management of [facility] Facility:[facility] Start: 01-07-2025 Non-patient / Non-visit Dr. Tammy MOSHER [facility] Work Phone: Start: 01-07-2025 Dr. Jeremy Faith DO [facility] Work Phone: Start: 01-07-2025 End: 01-07-2025 ambulatory Trinity Coronado Facility:[facility] Start: 01-07-2025 End: 01-07-2025 Dr. Stevenson Hernández MD -[facility] Work Phone: Start: 01-06-2025 Non-patient / Non-visit Dr. Tammy MOSHER [facility] Work Phone: Start: 01-06-2025 Dr. Jeremy Faith DO [facility] Work Phone: Start: 01-05-2025 Non-patient / Non-visit Dr. Tammy MOSHER [facility] Work Phone: Start: 01-05-2025 Dr. Jeremy Faith DO [facility] Work Phone: Start: 01-04-2025 Non-patient / Non-visit Dr. Tammy MOSHER [facility] Work Phone: Start: 01-04-2025 Dr. Jeremy Faith DO [facility] Work Phone: Start: 01-03-2025 End: 01-03-2025 ambulatory Zahira Ruggiero Facility:[facility] Start: 01-03-2025 End: 01-03-2025 Dr. Zahira Ruggiero MD -[facility] Work Phone: Start: 01-03-2025 ambulatory Jeremy Faith [facility] reese:[facility] Start: 01-03-2025 End: 01-07-2025 Evaluation and management of inpatient Dr. Jeremy Faith DO -Medical Surgical 2 Work Phone: Start: 01-03-2025 End: 01-07-2025 Dr. Jeremy Faith DO -Progressive Care Unit Work Phone: Start: 01-03-2025 Emergency department patient visit Trinity Coronado WINDOW ASSEMBLER-C Work Phone: -Emergency Department Work Phone: Start: 12-26-2024 End: 01-03-2025 Dr. Arnulfo Londono MD -Transitional Care Unit Start: 12-26-2024 End: 01-03-2025 Evaluation and management of inpatient Dr. Arnulfo Londono MD -Transitional Care Unit Start: 12-24-2024 End: 12-25-2024 Telephone encounter Duc Vieyra MD Work Phone: [place] [facility] Start: 12-12-2024 Encounter for other preprocedural examination Betina Fulk [facility] Start: 12-02-2024 End: 12-26-2024 Evaluation and management of inpatient JEREMIAS LUIGI Facility:[facility] Start: 12-02-2024 ambulatory Trinity Coronado Facility:[facility] Start: 12-02-2024 Non-patient / Non-visit Dr. Zahira Smith MD -[facility] Start: 12-02-2024 Dr. [facility] Start: 12-01-2024 End: 12-02-2024 Dr. Rolf [facility] Work Phone: Start: 12-01-2024 End: 12-02-2024 Emergency department patient visit Trinity Coronado [employer] Work Phone: -Emergency Department Work Phone: Start: 11-29-2024 Non-patient / Non-visit Betina ASKEW -[facility] Start: 11-29-2024 [facility] Start: 11-28-2024 Non-patient / [facility] Start: 11-28-2024 Non-patient / Non-visit Dr. Jeanne Calderon [facility] Work Phone: Start: 11-28-2024 Dr. Jeanne Mcclure [facility]icians Work Phone: Start: 11-27-2024 Non-patient / Non-visit Dr. Lilly ward MD -[facility] Work Phone: Start: 11-27-2024 Dr. Lilly Owens MD -[facility] Inpatient Physicians Work Phone: Start: 11-27-2024 [facility] Start: 11-27-2024 [facility] Start: 11-27-2024 End: 11-29-2024 Evaluation and management of inpatient Dr. Bill Colon MD -[facility] Surgical 3 Work Phone: Start: 11-27-2024 End: 11-29-2024 Dr. Bill Colon MD -[facility] 3 Work Phone: Start: 11-27-2024 Non-patient / Non-visit Dr. [facility]inas [facility] Start: 11-27-2024 Dr. Bill Colon MD [facility] Start: 11-27-2024 End: 11-29-2024 Evaluation and management of inpatient Dr. Bill Colon MD -Medical Surgical 3 Work Phone: Start: 11-27-2024 ambulatory Bill Colon Facility:[facility] Start: 11-22-2024 End: 11-22-2024 Patient encounter procedure Peter Aguero Work Phone: Start: 11-22-2024 End: 11-22-2024 Dr. Rita Bishop [facility] sangeetha Work Phone: Start: 11-22-2024 End: 11-22-2024 ambulatory [facility] Facility:[facility] Start: 11-13-2024 End: 11-13-2024 Patient encounter procedure Noemí Aguero [facility] Start: 11-13-2024 End: 11-13-2024 Dr. Rita Cooney SHILOH Start: 11-13-2024 End: 11-13-2024 ambulatory [facility] Facility:[facility] Start: 11-09-2024 End: 11-09-2024 ambulatory Trinity Coronado [employer] Work Phone: [facility] Work Phone: Start: 11-09-2024 End: 11-09-2024 Patient encounter procedure Trinity Coronado [employer]C -Laboratory, Noemí Parmar [facility] Start: 11-09-2024 End: 11-09-2024 Trinity Coronado [employer]C -Laboratory Noemí Parmar [facility] Start: 11-09-2024 End: 11-09-2024 ambulatory Trinity Dajuan Facility:[facility] Start: 11-03-2024 End: 11-03-[address] Bill Colon MD -[facility] Work Phone: Start: 11-03-2024 End: 11-03-2024 Dr. Bill Colon MD -[facility] Work Phone: Start: 11-03-2024 End: 11-03-2024 ambulatory Bill Colon Facility:[facility] Start: 11-02-2024 End: 11-02-2024 ambulatory Bill Colon Facility:[facility] Start: 11-02-2024 End: 11-02-2024 Non-patient / Non-visit Dr. Stevenson Hernández MD -[facility] Work Phone: Start: 11-02-2024 End: 11-02-2024 Dr. Stevenson Hernández MD -[facility] [place]Note 2] Group Work Phone: Start: 09-21-2024 End: 09-21-[address] Bill Colon MD -[facility] Work Phone: Start: 09-21-2024 End: 09-21-2024 ambulatory Bill Colon Facility:[facility] Start: 09-19-2024 End: 09-19-[address] Bill Colon MD -[facility] Work Phone: Start: 09-19-2024 End: 09-19-2024 ambulatory Trinity Coronado [employer] Work Phone: [facility] Work Phone: Start: 09-15-2024 End: 09-15-[address] Bill Colon MD -[facility] Work Phone: Start: 09-15-2024 End: 09-15-2024 ambulatory Bill Colon Facility:[facility] Start: 07-10-2024 End: 07-10-2024 Patient encounter procedure Trinity Coronado [employer] -Noemí Potter [facility] Start: 07-10-2024 End: 07-10-2024 ambulatory Trinitylisette Coronado Facility:[facility] Start: 09-27-2023 End: 09-27-2023 ambulatory [facility] Work Phone: Start: 09-27-2023 End: 09-27-2023 Discharged Recurring [facility]-Physical Therapy Work Phone: Start: 06-16-2023 End: 06-16-2023 ambulatory [employer] Trinity Coronado Work Phone: [facility] Work Phone: Start: 06-16-2023 End: 06-16-2023 Discharged Recurring [employer] Trinity Coronado Work Phone: [facility]-Physical Therapy Work Phone: Start: 05-07-2023 End: 05-07-2023 Patient encounter procedure [employer] Trinity Coronado Work Phone: [facility] Work Phone: Start: 04-28-2023 End: 04-28-2023 Patient encounter procedure [employer] Trinitylisette Coronado Work Phone: [facility] Work Phone: Start: 04-16-2023 End: 04-16-[address] Guillaume Hancock Work Phone: [facility]-Noemí Potter [facility] Start: 04-15-2023 End: 04-15-[address] Guillaume Hancock Work Phone: [facility] Work Phone: Start: 04-15-2023 End: 04-15-[address] Guillaume Hancock Work Phone: [facility] Start: 04-05-2023 End: 04-05-[address] Guillaume Hancock Work Phone: [facility] Work Phone: Start: 03-31-2023 End: 03-31-[address] Guillaume Hancock Work Phone: [facility] Work Phone: Start: 03-31-2023 End: 03-31-[address] [facility]illa[facility] Hancock [facility] Work Phone: Start: 01-20-2023 End: 01-20-[address] Guillaume Hancock Work Phone: [facility] Work Phone: Start: 01-20-2023 End: 01-20-[address] Guillaume Hancock Work Phone: [facility] Start: 01-19-2023 End: 01-19-[address] Guillaume Hancock Work Phone: [facility] Start: 01-01-2023 End: 01-01-[address] Guillaume Hancock Work Phone: [facility] Work Phone: Start: 12-25-2022 Non-patient / Non-visit Dr. Ame Hancock Work Phone: [facility] Start: 12-25-2022 End: 12-25-[address] Guillaume Hancock Work Phone: [facility] Work Phone: Start: 12-25-2022 End: 12-25-[address] Guillaume Hancock Work Phone: [facility] Start: 06-25-2017 End: 06-29-2017 Evaluation and management of inpatient SHENG LAND Facility:A Procedures Date Procedure Procedure Detail Performing Clinician Start: 02-02-2025 Measurement of occul t blood in stool specimen using immunoassay Trinity Coronado [employer] Work Phone: Start: 02-02-2025 Estimated creatinine clearance Trinity Coronado [employer] Work Phone: Start: 02-02-2025 Serum inorganic phos phate measurement Trinity Coronado [employer] Work Phone: Start: 01-30-2025 Mean corpuscular hemoglobin concentration determination Trinitylisette Coronado [employer] Work Phone: Start: 01-30-2025 Platelet mean volume determination Trinity Coronado [employer] Work Phone: Start: 01-24-2025 Nucleic acid assay Eileen Coronado [employer] Work Phone: Start: 01-24-2025 Viral antigen assay Piter Coronado [employer] Work Phone: Start: 01-24-2025 X-ray of chest, PA a nd lateral views Trinity Coronado [employer] Work Phone: Start: 01-21-2025 Blood count smear mc rscp w/mnl difrntl wbc count Trinity Coronado [employer] Work Phone: Start: 01-21-2025 Nucleated red blood cell count procedure Trinity Coronado [employer] Work Phone: Start: 01-19-2025 Clostridium difficil e detection Trinity Coronado [employer] Work Phone: Start: 01-19-2025 Lactoferrin measurement Trinity Coronado [employer] Work Phone: Start: 01-19-2025 Measurement of occul t blood in stool specimen using immunoassay Trinity Coronado [employer] Work Phone: Start: 01-19-2025 Nucleic acid assay Eileen Coronado [employer] Work Phone: Start: 01-19-2025 Iadna-dna/rna gi pth gn multiplex probe tq 6-11 Trinity Coronado [employer] Work Phone: Start: 01-16-2025 X-ray of lumbar spin e, two or three views Trinity Coronado [employer] Work Phone: Start: 01-16-2025 X-ray of ankle, thre e or more views Trinity Coronado [employer] Work Phone: Start: 01-11-2025 Measurement of occul t blood in stool specimen using immunoassay Trinity Coronado [employer] Work Phone: Start: 01-08-2025 Antibody screen JEREMIAS MEYERS Comment on above: Order Comment: Speci men Type: BLOOD SPECIMENOrdering Facility: [facility] Address: [address] [place] [address] Performed By: #### T SCR ####[facility] [id number] [place] [address] [place] Start: 01-07-2025 Estimated creatinine clearance Trinity Coronado [employer] Work Phone: Start: 01-07-2025 Mean corpuscular hemoglobin concentration determination Trinity Coronado [employer] Work Phone: Start: 01-07-2025 Platelet mean volume determination Trinity Coronado [employer] Work Phone: Start: 01-07-2025 CT of abdomen and pe lvis with oral contrast Trinity Coronado [employer] Work Phone: Start: 01-07-2025 Plain chest X-ray Jose Coronado [employer] Work Phone: Start: 01-06-2025 Urine microscopy: re d cells Trinity Coronado [employer] Work Phone: Start: 01-06-2025 Urnls dip stick/tabl et reagent auto microscopy Trinity Coronado [employer] Work Phone: Start: 01-06-2025 Urine culture Trinity robledo [employer]C Work Phone: Start: 01-04-2025 CT of abdomen and pe lvis with oral contrast Trinity Coronado [employer] Work Phone: Start: 01-03-2025 CT of abdomen and pe lvis without contrast Trinity Coronado [employer] Work Phone: Start: 01-03-2025 Plain chest X-ray Jose Coronado [employer] Work Phone: Start: 01-03-2025 Assay of lactate Trinity Coronado [employer] Work Phone: Start: 01-03-2025 Estimated creatinine clearance Trinity Coronado [employer] Work Phone: Start: 01-03-2025 Blood count smear mc rscp w/mnl difrntl wbc count Trinity Coronado [employer] Work Phone: Start: 01-03-2025 Estimated creatinine clearance Trinity Coronado [employer] Work Phone: Start: 01-03-2025 Mean corpuscular hemoglobin concentration determination Trinity Coronado [employer] Work Phone: Start: 01-03-2025 Nucleated red blood cell count procedure Trinity Coronado [employer] Work Phone: Start: 01-03-2025 Platelet mean volume determination Trinity Coronado [employer] Work Phone: Start: 12-29-2024 Total iron binding capacity measurement Trinity Coronado [employer] Work Phone: Start: 12-28-2024 Measurement of occul t blood in stool specimen using immunoassay Trinity Mendozagar [employer] Work Phone: Start: 12-27-2024 X-ray of chest, PA a nd lateral views Trinity Dajuan [employer] Work Phone: Start: 12-15-2024 Antibody screen JEREMIAS MEYERS Comment on above: Order Comment: Speci men Type: BLOOD SPECIMENOrdering Facility: [facility] Address: [address] [place] [address] Performed By: #### T SCR ####[facility] BLOOD BANKIA [id number] [address] Start: 12-11-2024 H/O: surgery S/P explorator y laparotomy Duc Vieyra MD Work Phone: Start: 12-05-2024 Echocardiography FABRIC E LUIGI Start: 12-04-2024 Electrocardiogram FABRI CE LUIGI Start: 12-04-2024 Electrocardiogram FABRI CE LUIGI Start: 12-03-2024 Antibody screen JEREMIAS MEYERS Comment on above: Order Comment: Speci men Type: BLOOD SPECIMENOrdering Facility: [facility] Address: [address] [place] [address] Performed By: #### T SCR ####[facility] [id number] [address] Start: 12-02-2024 Electrocardiogram FABRI SOHA MEYERS Start: 12-02-2024 Assay of lactate Trinity Dajuanvenkat JEFFREY-C Work Phone: Start: 12-01-2024 Urine microscopy: re d cells Trinity Dajuan [employer] Work Phone: Start: 12-01-2024 Urnls dip stick/tabl et reagent auto microscopy Trinity Dajuan [employer] Work Phone: Start: 12-01-2024 Computed tomography of abdomen and pelvis with intravenous contrast Trinity Dajuan [employer] Work Phone: Start: 12-01-2024 Blood count smear mc rscp w/mnl difrntl wbc count Trinity Coronado [employer] Work Phone: Start: 12-01-2024 Estimated creatinine clearance Trinity Coronado [employer] Work Phone: Start: 12-01-2024 Mean corpuscular hemoglobin concentration determination Trinity Coronado [employer] Work Phone: Start: 12-01-2024 Nucleated red blood cell count procedure Trinity Coronado [employer]C Work Phone: Start: 12-01-2024 Platelet mean volume determination Trinity Coronado [employer] Work Phone: Start: 12-01-2024 Triacylglycerol lipa se measurement Trinity Coronado [employer]C Work Phone: Start: 11-28-2024 Estimated creatinine clearance Trinity Coronado [employer] Work Phone: Start: 11-28-2024 Mean corpuscular hemoglobin concentration determination Trinity Coronado [employer]C Work Phone: Start: 11-28-2024 Platelet mean volume determination Trinity Coronado [employer]C Work Phone: Start: 11-28-2024 X-ray of lumbar spin e, two or three views Trinity MEJIAC Work Phone: Start: 11-27-2024 Carbon dioxide measurement, partial pressure Trinity HUERTA Work Phone: Start: 11-27-2024 Gases blood o2 satur ation only direct ivory Trinity Coronado [employer]C Work Phone: Start: 11-27-2024 Measurement of parti al pressure of oxygen in blood Trinity Coronado [employer]C Work Phone: Start: 11-27-2024 Blood count smear mc rscp w/mnl difrntl wbc count Trinity Coronado [employer]C Work Phone: Start: 11-27-2024 Nucleated red blood cell count procedure Trinity Coronado 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 Work Phone: Start: 11-27-2024 Oxygen measurement Eileen Coronado [employer]C Work Phone: Start: 11-27-2024 Lumbar spinal fusion Ra gisela Coronado [employer]C Work Phone: Start: 11-27-2024 Fluoroscopic guidance R ivelisse Coronado [employer]C Work Phone: Start: 11-27-2024 X-ray of lumbar spin e, two or three views Trinity Coronado [employer]C Work Phone: Start: 11-02-2024 Methicillin resistan t Staphylococcus aureus screening test Trinity Mendozagar [employer]C Work Phone: Start: 11-02-2024 Hepatitis A virus antibody, total measurement Trinity Coronado [employer]-C Work Phone: Comment on above: Comment: The HAV tot al antibody assay detects both IgG andIgM but does not differentiate between them. A negativeresult suggests susceptibility to infection. A positiveresult could be due to vaccination, previously resolvedinfection or active infection. Testing for HAV IgM shouldbe performed if active HAV infection is suspected. Labcorpoffers profiles that will automatically reflex positive HAVtotal antibody results to IgM (e.g., panel #[id number] HAVAntibody w/ Rfx).Performed at: [facility] [id number] Director: Trav Dover PhD, Phone: [phone] Start: 11-02-2024 Hepatitis C antibody measurement Trinity Coronado [employer]BLER- Work Phone: Comment on above: Reactive: Presumptiv e evidence of antibodies to HCV. Follow CDC recommendations for supplemental testing.Non-Reactive: Antibodies to HCV were not detected; does not exclude the possibility of exposure to HCVReactive Results are presumptive evidence of antibodies to HCV. Follow CDC recommendations for supplemental testing.Order confirmation testing: HCV Quant by PCR testing - HCVPCR #[id number] Non Reactive: < 0.8 Equivocal: >/= 0.8 to < 1.0 Reactive: >/= 1.0The CDC requires that a reactive/equivocal HCV antibody result be sent out for confirmation. HCV Quant by PCR testing. Start: 09-19-2024 MRI of lumbar spine Piter Coronado [employer]ER-C Work Phone: Start: 09-15-2024 X-ray of lumbosacral spine Trinity oCronado [employer]ER-C Work Phone: Start: 04-28-2023 MRI of lumbar spine [employer]ER- C Trinity Coronado Work Phone: Start: 03-31-2023 X-ray of lumbosacral spine Dr. Guillaume Hancock Work Phone: H/O: ileostomy Trinity Coronado [employer]-C Work Phone: H/O: ileostomy Dr. Marie Patino DO History of carotid endarterectomy History of right-sided carotid endarterectomy Dr. Guillaume Hancock Work Phone: History of carotid endarterectomy Dr. Marie Patino DO Plan of Treatment Date Care Activity Detail Author Start: 04-23-2025 End: 04-23-2025 Patient encounter procedure 04/23/2025 9:20 AM EDT Office Visit [facility] [place] [address] [place], [place] [id number] Jack Mota MD [address] [place] [phone] [facility] follow up-[facility] [place] Comment on above: [facility] Start: 03-26-2025 Influenza vaccination Influenz a Vaccine (#1) [facility] Start: 03-15-2025 End: 03-15-2025 Patient encounter procedure 03/15/2025 1:00 PM EDT Office Visit [facility] [address] [place] [address] Zahira Anthony Jr., MD [address] [place], [place] [phone] cysto reema Graff UDS prior [facility] Comment on above: cysto reema Graff U DS prior Start: 03-06-2025 End: 03-06-2025 Patient encounter procedure 03/06/2025 3:20 PM EDT Office Visit [facility] [address] [place] [address] Jack Mota MD [address] [place] [address] Hosp f/u per Dr. Pai. martinez [facility] Comment on above: Hosp f/u per Dr. Svetlana martinez Start: 02-23-2025 End: 02-23-2025 Patient encounter procedure 02/23/2025 10:00 AM EDT Office Visit Urology [address] [place] [address] [employer], Proc [address] [place] [address] UDS per [facility] Comment on above: UDS per Prerna Start: 02-07-2025 End: 02-07-2025 Patient encounter procedure 02/07/2025 1:40 PM EDT Office Visit [facility] [address] [place] [address] Prerna Mcgill APRN.[employer] [address] [place] [address] pvr, daughters removing cath in am [facility] Comment on above: pvr, daughters remov ing cath in am Start: 02-03-2025 Patient discharge [facility] Start: 02-02-2025 Referral to service department manager [facility] Start: 02-02-2025 [facility] Start: 01-31-2025 Inhalation therapy procedure [facility] Start: 01-29-2025 Referral to service [facility] Start: 01-29-2025 Patient referral to dietitian [facility] Start: 01-28-2025 [facility] Start: 01-24-2025 End: 01-25-2025 [facility] Start: 01-19-2025 [facility] Start: 01-17-2025 Peripherally inserte d central catheter care [facility] Start: 01-16-2025 Referral to gastroen terology service [facility] Start: 01-16-2025 Following clinical p athway protocol [facility] Start: 01-16-2025 [facility] Start: 01-16-2025 [facility] Start: 01-16-2025 Introduction of urin trent catheter [facility] Start: 01-16-2025 Application of ice c ollar, cap or bag [facility] Start: 01-15-2025 Consultation for treatment [facility] Start: 01-12-2025 Administration of bl ood product [facility] Start: 01-11-2025 Dietary intake assessment [facility] Start: 01-11-2025 Recommendation to co ntangelicaue with treatment [facility] Start: 01-11-2025 Urinary bladder training [facility] Start: 01-11-2025 Admission procedure [facility] Start: 01-11-2025 Measuring intake and output [facility] Start: 01-11-2025 End: 01-12-2025 Patient referral to dietitian [facility] Start: 01-11-2025 Referral to service [facility] Start: 01-11-2025 Vital signs measurements [facility] Start: 01-11-2025 [facility] Start: 01-11-2025 Referral to occupati onal therapist [facility] Start: 01-11-2025 Speech therapy assessment [facility] Start: 01-07-2025 Transfusion of blood product [facility] Start: 01-07-2025 Leukocyte reduced re d blood cells [facility] Start: 01-07-2025 [facility] Start: 01-07-2025 Administration of bl ood product [facility] Start: 01-07-2025 Patient discharge [facility] Start: 01-06-2025 End: 01-07-2025 [facility] Start: 01-06-2025 Bacteria identified in Urine by Culture Urine Culture [facility] Start: 01-05-2025 Development of care plan [facility] Start: 01-05-2025 Removal of urinary catheter [facility] Start: 01-05-2025 Referral to service department manager [facility] Start: 01-04-2025 [facility] Start: 01-03-2025 Ambulation without limitation [facility] Start: 01-03-2025 Assessment of risk o f venous thromboembolism [facility] Start: 01-03-2025 Care regimes management [facility] Start: 01-03-2025 Incentive spirometry [facility] Start: 01-03-2025 Insertion of cathete r into peripheral vein [facility] Start: 01-03-2025 Measuring intake and output [facility] Start: 01-03-2025 Notification of physician [facility] Start: 01-03-2025 Oxygen therapy [facility] Start: 01-03-2025 Providing care accor ding to standard [facility] Start: 01-03-2025 Referral to occupati onal therapist [facility] Start: 01-03-2025 Referral to service [facility] Start: 01-03-2025 Speech therapy assessment [facility] Start: 01-03-2025 End: 01-03-2025 [facility] Start: 01-03-2025 Following clinical p athway protocol [facility] Start: 01-03-2025 CT Abdomen and Pelvi s [facility] Start: 01-03-2025 CT of abdomen and pe lvis without contrast Abdomen/Pelvis without Cont [facility] Start: 01-03-2025 Patient discharge [facility] Start: 01-03-2025 Plain chest X-ray Chest 1 View (Portable) [facility] Start: 01-03-2025 XR Chest Single view [facility] Start: 01-03-2025 Hospital admission, emergency, from emergency room, medical nature [facility] Start: 01-03-2025 Gas panel - Arterial blood [facility] Start: 01-03-2025 Verification routine [facility] Start: 01-03-2025 Admission procedure [facility] Start: 01-03-2025 [facility] Start: 01-03-2025 Patient referral to dietitian [facility] Start: 01-02-2025 [facility] Start: 01-02-2025 [facility] Start: 12-29-2024 Following clinical p athway protocol [facility] Start: 12-28-2024 Referral to gastroen terology service [facility] Start: 12-27-2024 Development of care plan [facility] Start: 12-27-2024 Speech therapy management [facility] Start: 12-27-2024 Developing a treatment plan [facility] Start: 12-27-2024 Speech therapy assessment [facility] Start: 12-27-2024 Contact precautions [facility] Start: 12-27-2024 [facility] Start: 12-26-2024 Admission procedure [facility] Start: 12-26-2024 Introduction of urin trent catheter [facility] Start: 12-26-2024 Measuring intake and output [facility] Start: 12-26-2024 [facility] Start: 12-26-2024 Referral to service [facility] Start: 12-26-2024 Vital signs measurements [facility] Start: 12-26-2024 [facility] Start: 12-26-2024 Consultation for treatment [facility] Start: 12-02-2024 [facility] Start: 11-29-2024 Patient discharge [facility] Start: 11-28-2024 [facility] Start: 11-28-2024 Catheterization of vein [facility] Start: 11-27-2024 Care regimes management [facility] Start: 11-27-2024 Notification of physician [facility] Start: 11-27-2024 Following clinical p athway protocol [facility] Start: 11-27-2024 Maintenance of invas jacob device [facility] Start: 11-27-2024 Application of device [facility] Start: 11-27-2024 End: 11-27-2024 [facility] Start: 11-27-2024 Referral to occupati onal therapist [facility] Start: 11-27-2024 Admission procedure [facility] Start: 11-27-2024 Assessment of risk o f venous thromboembolism [facility] Start: 11-27-2024 Consultation [facility] Start: 11-27-2024 Following clinical p athway protocol [facility] Start: 11-27-2024 Introduction of urin trent catheter [facility] Start: 11-27-2024 Measuring intake and output [facility] Start: 11-27-2024 Neurovascular assessment [facility] Start: 11-27-2024 Oxygen therapy [facility] Start: 11-27-2024 Patient education [facility] Start: 11-27-2024 Provision of activit y privileges [facility] Start: 11-27-2024 Referral to service [facility] Start: 11-27-2024 Taking patient vital signs [facility] Start: 07-26-2024 Advance Directive Discussion A dvance Directive Discussion [facility] Start: 03-26-2024 Covid-19 Vaccine ( season) Covid-19 Vaccine () [facility] Start: 05-07-2023 Patient referral [facility] Work Phone: Start: 2021 RSV Vaccine (1 - 1-d ose 75+ series) RSV Vaccine (1 - 1-dose 75+ series) [facility] Start: 03-22-2018 Diabetic foot examination Diabetic F oot Exam [facility] Start: 03-17-2018 Hepatitis B screening Urine Albumin:Creatinine Ratio [facility] Start: 03-17-2018 Hepatitis B surface antibody level LDL Cholesterol [facility] Start: 09-17-2017 Hemoglobin A1c measurement HbA1C [facility] Start: 05-18-2017 Glaucoma screening Dilated Retinal E xam [facility] Start: 07-26-2015 Medicare Annual Well ness Visit Medicare Annual Wellness Visit [facility] Start: 07-16-2011 Shingrix Vaccine (2 of 3) Jewell grix Vaccine (2 of 3) [facility] Start: 07-26-2008 Urine microalbumin profile DTa P,Tdap,Td Vaccine (2 - Tdap) [facility] Start: 1964 Annual PCP Team [employer] kimber Disease Visit Annual PCP Team Chronic Disease Visit [facility] Start: 1964 Anxiety Screening Anxiety Screening [facility] Start: 1964 BP Controlled (<130/80) BP Con trolled (<130/80) [facility] Start: 1964 Depression Screening Depression Scre ening [facility] BLADDER SCAN BLADDER SCAN Procedures Routine Retention of urine Ordered: 02/07/2025 [facility] Comment on above: Ordered: 02/07/2025 Cystourethroscopy CYSTO.PANENDO Procedures Routine Retention of urine Ordered: 02/07/2025 [facility] Comment on above: Ordered: 02/07/2025 Electrocardiographic procedure [facility] PEÑA CHANGE PEÑA CHANGE Procedures Routine Retention of urine 1 Occurrences starting 02/08/2025 [facility] Work Phone: Comment on above: 1 Occurrences starti ng 02/08/2025 Lactic acid measurement [facility] MR Lumbar spine [facility] Patient Education [facility] Work Phone: Patient referral [facility] Work Phone: Urine culture [facility] URODYNAMICS/FLUOR URODYNAMICS UR ODYNAMICS/FLUOR URODYNAMICS Procedures Routine Retention of urine Ordered: 02/07/2025 [facility] Work Phone: Comment on above: Ordered: 02/07/2025 US Carotid arteries [facility] Immunizations Immunization Date Immunization Notes Care Provider Esequiel metcalf 05-25-2024 influenza virus vacc ine, unspecified formulation Awilda Leal APRN.CNP Work Phone: [facility] 07-01-2021 Covid (Pfizer) Trinity HUERTA Work Phone: [facility] 10-22-2020 Covid (Pfizer) Dr. Guillaume medina Work Phone: [facility] 10-01-2020 Covid (Pfizer) Dr. Guillaume medina Work Phone: [facility] 06-07-2017 influenza, high dose seasonal, preservative-free Duc Vieyra MD Work Phone: [facility] 05-21-2016 influenza, high dose stacie, preservative-free Duc Vieyra MD Work Phone: [facility] 10-10-2015 pneumococcal polysaccharide vaccine, 23 valent Duc Vieyra MD Work Phone: [facility] 05-20-2015 influenza, high dose seasonal, preservative-free Duc Vieyra MD Work Phone: [facility] 08-24-2014 pneumococcal conjuga te vaccine, 13 maurice Vieyra MD Work Phone: [facility] 04-19-2014 influenza, high dose seasonal, preservative-free Duc Vieyra MD Work Phone: [facility] 06-15-2013 influenza virus vacc ine, unspecified formulation Duc Vieyra MD Work Phone: [facility] 05-04-2012 influenza virus vacc ine, unspecified formulation Duc Vieyra MD Work Phone: [facility] 05-21-2011 influenza virus vacc ine, unspecified formulation Duc Vieyra MD Work Phone: [facility] 05-21-2011 zoster vaccine, live Duc Vieyra MD Work Phone: [facility] Work Phone: 12-08-2008 pneumococcal polysaccharide vaccine, 23 maurice Vieyra MD Work Phone: [facility] 06-01-2008 influenza virus vacc ine, unspecified formulation Duc Vieyra MD Work Phone: [facility] 07-26-1998 diphtheria and tetan us toxoids, adsorbed for pediatric use Duc Vieyra MD Work Phone: [facility] Payers Date Payer Category Payer Self-pay [id number] 2017 Medicare [id number] 2015 Private Health Insurance [id number] 2015 Unknown [id number] 2015 Medicare MEDICARE [id number] 2015 Medicare [id number] Self-pay SELF PAY INSURANCE [id number] Unknown [id number] 2.16.840.1.827687.3.579.2. 462 Unknown [id number] 2.16.840.1.779969.3.579.2. 462 Unknown [id number] 2.16.840.1.858576.3.579.2. 462 Unknown [id number] 2.16.840.1.793800.3.579.2. 462 Unknown [id number] 2.16.840.1.764550.3.579.2. 462 Unknown [id number] 2.16.840.1.607349.3.579.2. 462 Unknown [id number] 2.16.840.1.061742.3.579.2. 462 Unknown [id number] 2.16.840.1.004479.3.579.2. 462 Unknown [id number] 2.16.840.1.673885.3.579.2. 462 Unknown [id number] 2.16.840.1.872328.3.579.2. 462 Unknown [id number] 2.16.840.1.924117.3.579.2. 462 Unknown [id number] 2.16.840.1.642709.3.579.2. 462 Unknown [id number] 2.16.840.1.131278.3.579.2. 462 Unknown [id number] 2.16.840.1.270836.3.579.2. 462 Unknown [id number] 2.16.840.1.941518.3.579.2. 462 Unknown [id number] 2.16.840.1.430834.3.579.2. 462 Unknown [id number] 2.16.840.1.557331.3.579.2. 462 Unknown [id number] 2.840.1.174119.3.579.2. 462 Unknown [id number] 2.840.1.465166.3.579.2. 462 Unknown [id number] 2.840.1.967353.3.579.2. 462 Unknown [id number] 2.840.1.719223.3.579.2. 462 Unknown [id number] 2.840.1.276153.3.579.2. 462 Unknown [id number] 2.840.1.662347.3.579.2. 462 Unknown [id number] 2.840.1.285166.3.579.2. 462 Unknown [id number] 2.840.1.082014.3.579.2. 462 Unknown [id number] 2.840.1.528869.3.579.2. 462 Unknown [id number] 2.840.1.741666.3.579.2. 462 Unknown [id number] 2.16840.1.274942.3.579.2. 462 Unknown [id number] 2.840.1.989095.3.579.2. 462 Unknown [id number] 2.16840.1.465238.3.579.2. 462 Unknown [id number] 2.16.840.1.204401.3.579.2. 462 Unknown [id number] 2.16.840.1.768856.3.579.2. 462 Unknown [id number] 2.16.840.1.421589.3.579.2. 462 Unknown [id number] 2.16.840.1.758756.3.579.2. 462 Unknown [id number] 2.16.840.1.003064.3.579.2. 462 Unknown [id number] 2.16.840.1.383702.3.579.2. 462 Unknown [id number] 2.16.840.1.320244.3.579.2. 462 Unknown [id number] 2.16.840.1.678759.3.579.2. 462 Unknown [id number] 2.16.840.1.874189.3.579.2. 462 Unknown [id number] 2.16.840.1.780234.3.579.2. 462 Unknown [id number] 2.16.840.1.546582.3.579.2. 462 Unknown [id number] 2.16.840.1.328631.3.579.2. 462 Unknown [id number] 2.16.840.1.461493.3.579.2. 462 Unknown [id number] 2.16.840.1.155806.3.579.2. 462 Unknown [id number] 2.16840.1.280248.3.579.2. 462 Unknown [id number] 2.16840.1.760991.3.579.2. 462 Unknown [id number] 2.16840.1.115984.3.579.2. 462 Social History Date Type Detail Facility Start: 01-17-2021 End: 05-07-2023 Tobacco smoking status NHIS Unknown if ever smoked [facility] Start: 1945 Sex Assigned At Male [facility] Start: 05-07-2023 End: 01-11-2025 Tobacco smoking status NHIS Ex-smoker (finding) [facility] Start: 10-01-2024 End: 11-14-2024 Sex Male (finding) [facility] Start: 1965 End: 1985 History of tobacco use Current smoker [facility] Start: 1965 End: 1985 History of tobacco use Cigarette Smoker [facility] Start: 03-22-2017 End: 12-03-2024 Cigarettes smoked current (pack per day) - Reported 2 [facility] Work Phone: Start: 03-22-2017 End: 12-25-2024 Tobacco use and exposure Smokeless tobacco non-user [facility] Start: 12-02-2024 Alcoholic beverage intake Current drinker of alcohol (finding) [facility] Start: 12-03-2024 End: 12-06-2024 C Utilities [facility] Work Phone: Has the [employer], oil, or water [employer] threatened to shut off services in your home in past 12Mo Patient unable to answer [facility] Work Phone: Start: 1945 Sex assigned at Not on file C [facility] Start: 12-25-2024 End: 02-07-2025 Alcoholic beverage intake Ex-drinker (finding) [facility] Has the [employer], oil, or water [employer] threatened to shut off services in your home in past 12Mo No [facility] Work Phone: (I/We) worried abeba overton (my/our) food would run out before (I/we) got money to buy more. Never true [facility] Start: 12-25-2024 Alcohol Comment once or twice yearly [facility] Medical Equipment Procedure Code Equipment Code Equipment Origin al Text Equipment Identifier Dates Fusion, spine, lumbar, 360 degree, starting in supine position transitioning to prone BONE,30CC CRUSH CANC FDA Start: 11-27-2024 Fusion, spine, lumbar, 360 degree, starting in supine position transitioning to prone set screws FDA Start: 11-27-2024 Fusion, spine, lumbar, 360 degree, starting in supine position transitioning to prone set screws FDA Start: 11-27-2024 Fusion, spine, lumbar, 360 degree, starting in supine position transitioning to prone set screws FDA Start: 11-27-2024 Fusion, spine, lumbar, 360 degree, starting in supine position transitioning to prone vp [employer] screw FDA Start: 11-27-2024 Fusion, spine, lumbar, 360 degree, starting in supine position transitioning to prone vp [employer] screw FDA Start: 11-27-2024 Fusion, spine, lumbar, 360 degree, starting in supine position transitioning to prone vp [employer] screw FDA Start: 11-27-2024 Fusion, spine, lumbar, 360 degree, starting in supine position transitioning to prone vp [employer] screw FDA Start: 11-27-2024 Fusion, spine, lumbar, 360 degree, starting in supine position transitioning to prone vp [employer] marketing [employer] screw FDA Start: 11-27-2024 Fusion, spine, lumbar, 360 degree, starting in supine position transitioning to prone vp [employer] screw FDA Start: 11-27-2024 Fusion, spine, lumbar, 360 degree, starting in supine position transitioning to prone washer FDA Start: 11-27-2024 Fusion, spine, lumbar, 360 degree, starting in supine position transitioning to prone BONE,60CC CRUSH CANC FDA Start: 11-27-2024 Fusion, spine, lumbar, 360 degree, starting in supine position transitioning to prone washer FDA Start: 11-27-2024 Fusion, spine, lumbar, 360 degree, starting in supine position transitioning to prone [id number] FDA Start: 11-27-2024 Fusion, spine, lumbar, 360 degree, starting in supine position transitioning to prone bow tie screw FDA Start: 11-27-2024 Fusion, spine, lumbar, 360 degree, starting in supine position transitioning to prone bow tie screw FDA Start: 11-27-2024 Fusion, spine, lumbar, 360 degree, starting in supine position transitioning to prone cougar locking screw FDA Start: 11-27-2024 Fusion, spine, lumbar, 360 degree, starting in supine position transitioning to prone zohreh FDA Start: 11-27-2024 Fusion, spine, lumbar, 360 degree, starting in supine position transitioning to prone set screws FDA Start: 11-27-2024 Fusion, spine, lumbar, 360 degree, starting in supine position transitioning to prone set screws FDA Start: 11-27-2024 Fusion, spine, lumbar, 360 degree, starting in supine position transitioning to prone set screws FDA Start: 11-27-2024 Fusion, spine, lumbar, 360 degree, starting in supine position transitioning to prone BONE,30CC CRUSH CANC FDA Start: 11-27-2024 Fusion, spine, lumbar, 360 degree, starting in supine position transitioning to prone set screws FDA Start: 11-27-2024 Fusion, spine, lumbar, 360 degree, starting in supine position transitioning to prone set screws FDA Start: 11-27-2024 Fusion, spine, lumbar, 360 degree, starting in supine position transitioning to prone set screws FDA Start: 11-27-2024 Fusion, spine, lumbar, 360 degree, starting in supine position transitioning to prone vp [employer] marketing [employer] screw FDA Start: 11-27-2024 Fusion, spine, lumbar, 360 degree, starting in supine position transitioning to prone vp [employer] marketing solutions screw FDA Start: 11-27-2024 Fusion, spine, lumbar, 360 degree, starting in supine position transitioning to prone vp [employer] marketing [employer] screw FDA Start: 11-27-2024 Fusion, spine, lumbar, 360 degree, starting in supine position transitioning to prone vp [employer] marketing [employer] screw FDA Start: 11-27-2024 Fusion, spine, lumbar, 360 degree, starting in supine position transitioning to prone vp [employer] marketing [employer] screw FDA Start: 11-27-2024 Fusion, spine, lumbar, 360 degree, starting in supine position transitioning to prone vp global marketing solutions screw FDA Start: 11-27-2024 Fusion, spine, lumbar, 360 degree, starting in supine position transitioning to prone washer FDA Start: 11-27-2024 Fusion, spine, lumbar, 360 degree, starting in supine position transitioning to prone BONE,60CC CRUSH CANC FDA Start: 11-27-2024 Fusion, spine, lumbar, 360 degree, starting in supine position transitioning to prone washer FDA Start: 11-27-2024 Fusion, spine, lumbar, 360 degree, starting in supine position transitioning to prone bow tie screw FDA Start: 11-27-2024 Fusion, spine, lumbar, 360 degree, starting in supine position transitioning to prone bow tie screw FDA Start: 11-27-2024 Fusion, spine, lumbar, 360 degree, starting in supine position transitioning to prone cougar locking screw FDA Start: 11-27-2024 Fusion, spine, lumbar, 360 degree, starting in supine position transitioning to prone zohreh FDA Start: 11-27-2024 Fusion, spine, lumbar, 360 degree, starting in supine position transitioning to prone set screws FDA Start: 11-27-2024 Fusion, spine, lumbar, 360 degree, starting in supine position transitioning to prone set screws FDA Start: 11-27-2024 Fusion, spine, lumbar, 360 degree, starting in supine position transitioning to prone set screws FDA Start: 11-27-2024 Fusion, spine, lumbar, 360 degree, starting in supine position transitioning to prone BONE,30CC CRUSH CANC FDA Start: 11-27-2024 Fusion, spine, lumbar, 360 degree, starting in supine position transitioning to prone set screws FDA Start: 11-27-2024 Fusion, spine, lumbar, 360 degree, starting in supine position transitioning to prone set screws FDA Start: 11-27-2024 Fusion, spine, lumbar, 360 degree, starting in supine position transitioning to prone set screws FDA Start: 11-27-2024 Fusion, spine, lumbar, 360 degree, starting in supine position transitioning to prone vp [employer] marketing [employer] screw FDA Start: 11-27-2024 Fusion, spine, lumbar, 360 degree, starting in supine position transitioning to prone vp [employer] marketing [employer] screw FDA Start: 11-27-2024 Fusion, spine, lumbar, 360 degree, starting in supine position transitioning to prone vp global marketing solutions screw FDA Start: 11-27-2024 Fusion, spine, lumbar, 360 degree, starting in supine position transitioning to prone vp global marketing solutions screw FDA Start: 11-27-2024 Fusion, spine, lumbar, 360 degree, starting in supine position transitioning to prone vp global marketing solutions screw FDA Start: 11-27-2024 Fusion, spine, lumbar, 360 degree, starting in supine position transitioning to prone vp global marketing solutions screw FDA Start: 11-27-2024 Fusion, spine, lumbar, 360 degree, starting in supine position transitioning to prone washer FDA Start: 11-27-2024 Fusion, spine, lumbar, 360 degree, starting in supine position transitioning to prone BONE,60CC CRUSH CANC FDA Start: 11-27-2024 Fusion, spine, lumbar, 360 degree, starting in supine position transitioning to prone washer FDA Start: 11-27-2024 Fusion, spine, lumbar, 360 degree, starting in supine position transitioning to prone bow tie screw FDA Start: 11-27-2024 Fusion, spine, lumbar, 360 degree, starting in supine position transitioning to prone bow tie screw FDA Start: 11-27-2024 Fusion, spine, lumbar, 360 degree, starting in supine position transitioning to prone cougar locking screw FDA Start: 11-27-2024 Fusion, spine, lumbar, 360 degree, starting in supine position transitioning to prone zohreh FDA Start: 11-27-2024 Fusion, spine, lumbar, 360 degree, starting in supine position transitioning to prone set screws FDA Start: 11-27-2024 Fusion, spine, lumbar, 360 degree, starting in supine position transitioning to prone set screws FDA Start: 11-27-2024 Fusion, spine, lumbar, 360 degree, starting in supine position transitioning to prone set screws FDA Start: 11-27-2024 Fusion, spine, lumbar, 360 degree, starting in supine position transitioning to prone BONE,30CC CRUSH CANC FDA Start: 11-27-2024 Fusion, spine, lumbar, 360 degree, starting in supine position transitioning to prone set screws FDA Start: 11-27-2024 Fusion, spine, lumbar, 360 degree, starting in supine position transitioning to prone set screws FDA Start: 11-27-2024 Fusion, spine, lumbar, 360 degree, starting in supine position transitioning to prone set screws FDA Start: 11-27-2024 Fusion, spine, lumbar, 360 degree, starting in supine position transitioning to prone vp global marketing solutions screw FDA Start: 11-27-2024 Fusion, spine, lumbar, 360 degree, starting in supine position transitioning to prone vp global marketing solutions screw FDA Start: 11-27-2024 Fusion, spine, lumbar, 360 degree, starting in supine position transitioning to prone vp global marketing solutions screw FDA Start: 11-27-2024 Fusion, spine, lumbar, 360 degree, starting in supine position transitioning to prone vp global marketing solutions screw FDA Start: 11-27-2024 Fusion, spine, lumbar, 360 degree, starting in supine position transitioning to prone vp global marketing solutions screw FDA Start: 11-27-2024 Fusion, spine, lumbar, 360 degree, starting in supine position transitioning to prone vp global marketing solutions screw FDA Start: 11-27-2024 Fusion, spine, lumbar, 360 degree, starting in supine position transitioning to prone washer FDA Start: 11-27-2024 Fusion, spine, lumbar, 360 degree, starting in supine position transitioning to prone BONE,60CC CRUSH CANC FDA Start: 11-27-2024 Fusion, spine, lumbar, 360 degree, starting in supine position transitioning to prone washer FDA Start: 11-27-2024 Fusion, spine, lumbar, 360 degree, starting in supine position transitioning to prone bow tie screw FDA Start: 11-27-2024 Fusion, spine, lumbar, 360 degree, starting in supine position transitioning to prone bow tie screw FDA Start: 11-27-2024 Fusion, spine, lumbar, 360 degree, starting in supine position transitioning to prone cougar locking screw FDA Start: 11-27-2024 Fusion, spine, lumbar, 360 degree, starting in supine position transitioning to prone ozhreh FDA Start: 11-27-2024 Fusion, spine, lumbar, 360 degree, starting in supine position transitioning to prone set screws FDA Start: 11-27-2024 Fusion, spine, lumbar, 360 degree, starting in supine position transitioning to prone set screws FDA Start: 11-27-2024 Fusion, spine, lumbar, 360 degree, starting in supine position transitioning to prone set screws FDA Start: 11-27-2024 Fusion, spine, lumbar, 360 degree, starting in supine position transitioning to prone BONE,30CC CRUSH CANC FDA Start: 11-27-2024 Fusion, spine, lumbar, 360 degree, starting in supine position transitioning to prone set screws FDA Start: 11-27-2024 Fusion, spine, lumbar, 360 degree, starting in supine position transitioning to prone set screws FDA Start: 11-27-2024 Fusion, spine, lumbar, 360 degree, starting in supine position transitioning to prone set screws FDA Start: 11-27-2024 Fusion, spine, lumbar, 360 degree, starting in supine position transitioning to prone vp global marketing solutions screw FDA Start: 11-27-2024 Fusion, spine, lumbar, 360 degree, starting in supine position transitioning to prone vp global marketing solutions screw FDA Start: 11-27-2024 Fusion, spine, lumbar, 360 degree, starting in supine position transitioning to prone vp global marketing solutions screw FDA Start: 11-27-2024 Fusion, spine, lumbar, 360 degree, starting in supine position transitioning to prone vp global marketing solutions screw FDA Start: 11-27-2024 Fusion, spine, lumbar, 360 degree, starting in supine position transitioning to prone vp global marketing solutions screw FDA Start: 11-27-2024 Fusion, spine, lumbar, 360 degree, starting in supine position transitioning to prone vp global marketing solutions screw FDA Start: 11-27-2024 Fusion, spine, lumbar, 360 degree, starting in supine position transitioning to prone washer FDA Start: 11-27-2024 Fusion, spine, lumbar, 360 degree, starting in supine position transitioning to prone BONE,60CC CRUSH CANC FDA Start: 11-27-2024 Fusion, spine, lumbar, 360 degree, starting in supine position transitioning to prone washer FDA Start: 11-27-2024 Fusion, spine, lumbar, 360 degree, starting in supine position transitioning to prone bow tie screw FDA Start: 11-27-2024 Fusion, spine, lumbar, 360 degree, starting in supine position transitioning to prone bow tie screw FDA Start: 11-27-2024 Fusion, spine, lumbar, 360 degree, starting in supine position transitioning to prone cougar locking screw FDA Start: 11-27-2024 Fusion, spine, lumbar, 360 degree, starting in supine position transitioning to prone zohreh FDA Start: 11-27-2024 Fusion, spine, lumbar, 360 degree, starting in supine position transitioning to prone set screws FDA Start: 11-27-2024 Fusion, spine, lumbar, 360 degree, starting in supine position transitioning to prone set screws FDA Start: 11-27-2024 Fusion, spine, lumbar, 360 degree, starting in supine position transitioning to prone set screws FDA Start: 11-27-2024 Fusion, spine, lumbar, 360 degree, starting in supine position transitioning to prone FDA Start: 11-27-2024 Fusion, spine, lumbar, 360 degree, starting in supine position transitioning to prone FDA Start: 11-27-2024 Fusion, spine, lumbar, 360 degree, starting in supine position transitioning to prone FDA Start: 11-27-2024 Fusion, spine, lumbar, 360 degree, starting in supine position transitioning to prone FDA Start: 11-27-2024 Fusion, spine, lumbar, 360 degree, starting in supine position transitioning to prone FDA Start: 11-27-2024 Fusion, spine, lumbar, 360 degree, starting in supine position transitioning to prone FDA Start: 11-27-2024 Fusion, spine, lumbar, 360 degree, starting in supine position transitioning to prone FDA Start: 11-27-2024 Fusion, spine, lumbar, 360 degree, starting in supine position transitioning to prone FDA Start: 11-27-2024 Fusion, spine, lumbar, 360 degree, starting in supine position transitioning to prone FDA Start: 11-27-2024 Fusion, spine, lumbar, 360 degree, starting in supine position transitioning to prone FDA Start: 11-27-2024 Fusion, spine, lumbar, 360 degree, starting in supine position transitioning to prone FDA Start: 11-27-2024 Fusion, spine, lumbar, 360 degree, starting in supine position transitioning to prone FDA Start: 11-27-2024 Fusion, spine, lumbar, 360 degree, starting in supine position transitioning to prone FDA Start: 11-27-2024 Fusion, spine, lumbar, 360 degree, starting in supine position transitioning to prone FDA Start: 11-27-2024 Fusion, spine, lumbar, 360 degree, starting in supine position transitioning to prone FDA Start: 11-27-2024 Fusion, spine, lumbar, 360 degree, starting in supine position transitioning to prone FDA Start: 11-27-2024 Fusion, spine, lumbar, 360 degree, starting in supine position transitioning to prone FDA Start: 11-27-2024 Fusion, spine, lumbar, 360 degree, starting in supine position transitioning to prone FDA Start: 11-27-2024 Fusion, spine, lumbar, 360 degree, starting in supine position transitioning to prone FDA Start: 11-27-2024 Fusion, spine, lumbar, 360 degree, starting in supine position transitioning to prone FDA Start: 11-27-2024 Fusion, spine, lumbar, 360 degree, starting in supine position transitioning to prone FDA Start: 11-27-2024 Fusion, spine, lumbar, 360 degree, starting in supine position transitioning to prone FDA Start: 11-27-2024 Fusion, spine, lumbar, 360 degree, starting in supine position transitioning to prone FDA Start: 11-27-2024 Fusion, spine, lumbar, 360 degree, starting in supine position transitioning to prone FDA Start: 11-27-2024 Fusion, spine, lumbar, 360 degree, starting in supine position transitioning to prone FDA Start: 11-27-2024 Fusion, spine, lumbar, 360 degree, starting in supine position transitioning to prone FDA Start: 11-27-2024 Fusion, spine, lumbar, 360 degree, starting in supine position transitioning to prone FDA Start: 11-27-2024 Fusion, spine, lumbar, 360 degree, starting in supine position transitioning to prone FDA Start: 11-27-2024 Fusion, spine, lumbar, 360 degree, starting in supine position transitioning to prone FDA Start: 11-27-2024 Fusion, spine, lumbar, 360 degree, starting in supine position transitioning to prone FDA Start: 11-27-2024 Fusion, spine, lumbar, 360 degree, starting in supine position transitioning to prone FDA Start: 11-27-2024 Fusion, spine, lumbar, 360 degree, starting in supine position transitioning to prone FDA Start: 11-27-2024 Fusion, spine, lumbar, 360 degree, starting in supine position transitioning to prone FDA Start: 11-27-2024 Fusion, spine, lumbar, 360 degree, starting in supine position transitioning to prone FDA Start: 11-27-2024 Fusion, spine, lumbar, 360 degree, starting in supine position transitioning to prone FDA Start: 11-27-2024 Fusion, spine, lumbar, 360 degree, starting in supine position transitioning to prone FDA Start: 11-27-2024 Fusion, spine, lumbar, 360 degree, starting in supine position transitioning to prone FDA Start: 11-27-2024 Fusion, spine, lumbar, 360 degree, starting in supine position transitioning to prone FDA Start: 11-27-2024 Fusion, spine, lumbar, 360 degree, starting in supine position transitioning to prone FDA Start: 11-27-2024 Fusion, spine, lumbar, 360 degree, starting in supine position transitioning to prone FDA Start: 11-27-2024 PATCH,VASC .8CM X 8CM FDA Start: 11-30-2017 SUTURE,LIGA CLIP MED LT200 FDA Start: 11-30-2017 SUTURE,LIGA CLIP MED LT200 FDA Start: 11-30-2017 SUTURE,LIGA CLIP MED LT200 FDA Start: 11-30-2017 SUTURE,LIGA CLIP SM LT-100 FDA Start: 11-30-2017 SUTURE,LIGA CLIP SM LT-100 FDA Start: 11-30-2017 SUTURE,LIGA CLIP SM LT-100 FDA Start: 11-30-2017 SUTURE,LIGA CLIP SM LT-100 FDA Start: 11-30-2017 PATCH,VASC .8CM X 8CM FDA Start: 11-30-2017 SUTURE,LIGA CLIP MED LT200 FDA Start: 11-30-2017 SUTURE,LIGA CLIP MED LT200 FDA Start: 11-30-2017 SUTURE,LIGA CLIP MED LT200 FDA Start: 11-30-2017 SUTURE,LIGA CLIP SM LT-100 FDA Start: 11-30-2017 SUTURE,LIGA CLIP SM LT-100 FDA Start: 11-30-2017 SUTURE,LIGA CLIP SM LT-100 FDA Start: 11-30-2017 SUTURE,LIGA CLIP SM LT-100 FDA Start: 11-30-2017 PATCH,VASC .8CM X 8CM FDA Start: 11-30-2017 SUTURE,LIGA CLIP MED LT200 FDA Start: 11-30-2017 SUTURE,LIGA CLIP MED LT200 FDA Start: 11-30-2017 SUTURE,LIGA CLIP MED LT200 FDA Start: 11-30-2017 SUTURE,LIGA CLIP SM LT-100 FDA Start: 11-30-2017 SUTURE,LIGA CLIP SM LT-100 FDA Start: 11-30-2017 SUTURE,LIGA CLIP SM LT-100 FDA Start: 11-30-2017 SUTURE,LIGA CLIP SM LT-100 FDA Start: 11-30-2017 PATCH,VASC .8CM X 8CM FDA Start: 11-30-2017 SUTURE,LIGA CLIP MED LT200 FDA Start: 11-30-2017 SUTURE,LIGA CLIP MED LT200 FDA Start: 11-30-2017 SUTURE,LIGA CLIP MED LT200 FDA Start: 11-30-2017 SUTURE,LIGA CLIP SM LT-100 FDA Start: 11-30-2017 SUTURE,LIGA CLIP SM LT-100 FDA Start: 11-30-2017 SUTURE,LIGA CLIP SM LT-100 FDA Start: 11-30-2017 SUTURE,LIGA CLIP SM LT-100 FDA Start: 11-30-2017 PATCH,VASC .8CM X 8CM FDA Start: 11-30-2017 SUTURE,LIGA CLIP MED LT200 FDA Start: 11-30-2017 SUTURE,LIGA CLIP MED LT200 FDA Start: 11-30-2017 SUTURE,LIGA CLIP MED LT200 FDA Start: 11-30-2017 SUTURE,LIGA CLIP SM LT-100 FDA Start: 11-30-2017 SUTURE,LIGA CLIP SM LT-100 FDA Start: 11-30-2017 SUTURE,LIGA CLIP SM LT-100 FDA Start: 11-30-2017 SUTURE,LIGA CLIP SM LT-100 FDA Start: 11-30-2017 PATCH,VASC .8CM X 8CM FDA Start: 11-30-2017 SUTURE,LIGA CLIP MED LT200 FDA Start: 11-30-2017 SUTURE,LIGA CLIP MED LT200 FDA Start: 11-30-2017 SUTURE,LIGA CLIP MED LT200 FDA Start: 11-30-2017 SUTURE,LIGA CLIP SM LT-100 FDA Start: 11-30-2017 SUTURE,LIGA CLIP SM LT-100 FDA Start: 11-30-2017 SUTURE,LIGA CLIP SM LT-100 FDA Start: 11-30-2017 SUTURE,LIGA CLIP SM LT-100 FDA Start: 11-30-2017 PATCH,VASC .8CM X 8CM FDA Start: 11-30-2017 SUTURE,LIGA CLIP MED LT200 FDA Start: 11-30-2017 SUTURE,LIGA CLIP MED LT200 FDA Start: 11-30-2017 SUTURE,LIGA CLIP MED LT200 FDA Start: 11-30-2017 SUTURE,LIGA CLIP SM LT-100 FDA Start: 11-30-2017 SUTURE,LIGA CLIP SM LT-100 FDA Start: 11-30-2017 SUTURE,LIGA CLIP SM LT-100 FDA Start: 11-30-2017 SUTURE,LIGA CLIP SM LT-100 FDA Start: 11-30-2017 PATCH,VASC .8CM X 8CM FDA Start: 11-30-2017 SUTURE,LIGA CLIP MED LT200 FDA Start: 11-30-2017 SUTURE,LIGA CLIP MED LT200 FDA Start: 11-30-2017 SUTURE,LIGA CLIP MED LT200 FDA Start: 11-30-2017 SUTURE,LIGA CLIP SM LT-100 FDA Start: 11-30-2017 SUTURE,LIGA CLIP SM LT-100 FDA Start: 11-30-2017 SUTURE,LIGA CLIP SM LT-100 FDA Start: 11-30-2017 SUTURE,LIGA CLIP SM LT-100 FDA Start: 11-30-2017 PATCH,VASC .8CM X 8CM FDA Start: 11-30-2017 SUTURE,LIGA CLIP MED LT200 FDA Start: 11-30-2017 SUTURE,LIGA CLIP MED LT200 FDA Start: 11-30-2017 SUTURE,LIGA CLIP MED LT200 FDA Start: 11-30-2017 SUTURE,LIGA CLIP SM LT-100 FDA Start: 11-30-2017 SUTURE,LIGA CLIP SM LT-100 FDA Start: 11-30-2017 SUTURE,LIGA CLIP SM LT-100 FDA Start: 11-30-2017 SUTURE,LIGA CLIP SM LT-100 FDA Start: 11-30-2017 PATCH,VASC .8CM X 8CM FDA Start: 11-30-2017 SUTURE,LIGA CLIP MED LT200 FDA Start: 11-30-2017 SUTURE,LIGA CLIP MED LT200 FDA Start: 11-30-2017 SUTURE,LIGA CLIP MED LT200 FDA Start: 11-30-2017 SUTURE,LIGA CLIP SM LT-100 FDA Start: 11-30-2017 SUTURE,LIGA CLIP SM LT-100 FDA Start: 11-30-2017 SUTURE,LIGA CLIP SM LT-100 FDA Start: 11-30-2017 SUTURE,LIGA CLIP SM LT-100 FDA Start: 11-30-2017 Ileostomy suppli es: - 1 box Coloplast Assura one piece drainable pouch # 61639 OR - 2 boxes Coloplast [place] wafer flat red #57785 - 1 box Coloplast [place] drainable pouch red # 04204 - 1 box Small barrier rings # 7805 - 1 tube stomahesive paste # 2650 - 1 bottle stomahesive powder # 48877 - 1 box Coloplast Elastic Barrier strips # [id number] - 1 box No sting skin barrier prep wipes # 3343 - 1 box adhesive removal wipes [id number] Start: 12-19-2024 PATCH,VASC .8CM X 8CM FDA Start: 11-30-2017 SUTURE,LIGA CLIP MED LT200 FDA Start: 11-30-2017 SUTURE,LIGA CLIP MED LT200 FDA Start: 11-30-2017 SUTURE,LIGA CLIP MED LT200 FDA Start: 11-30-2017 SUTURE,LIGA CLIP SM LT-100 FDA Start: 11-30-2017 SUTURE,LIGA CLIP SM LT-100 FDA Start: 11-30-2017 SUTURE,LIGA CLIP SM LT-100 FDA Start: 11-30-2017 SUTURE,LIGA CLIP SM LT-100 FDA Start: 11-30-2017 PATCH,VASC .8CM X 8CM FDA Start: 11-30-2017 SUTURE,LIGA CLIP MED LT200 FDA Start: 11-30-2017 SUTURE,LIGA CLIP MED LT200 FDA Start: 11-30-2017 SUTURE,LIGA CLIP MED LT200 FDA Start: 11-30-2017 SUTURE,LIGA CLIP SM LT-100 FDA Start: 11-30-2017 SUTURE,LIGA CLIP SM LT-100 FDA Start: 11-30-2017 SUTURE,LIGA CLIP SM LT-100 FDA Start: 11-30-2017 SUTURE,LIGA CLIP SM LT-100 FDA Start: 11-30-2017 PATCH,VASC .8CM X 8CM FDA Start: 11-30-2017 SUTURE,LIGA CLIP MED LT200 FDA Start: 11-30-2017 SUTURE,LIGA CLIP MED LT200 FDA Start: 11-30-2017 SUTURE,LIGA CLIP MED LT200 FDA Start: 11-30-2017 SUTURE,LIGA CLIP SM LT-100 FDA Start: 11-30-2017 SUTURE,LIGA CLIP SM LT-100 FDA Start: 11-30-2017 SUTURE,LIGA CLIP SM LT-100 FDA Start: 11-30-2017 SUTURE,LIGA CLIP SM LT-100 FDA Start: 11-30-2017 FDA Start: 11-30-2017 FDA Start: 11-30-2017 FDA Start: 11-30-2017 FDA Start: 11-30-2017 FDA Start: 11-30-2017 FDA Start: 11-30-2017 FDA Start: 11-30-2017 FDA Start: 11-30-2017 FDA Start: 11-30-2017 FDA Start: 11-30-2017 FDA Start: 11-30-2017 FDA Start: 11-30-2017 FDA Start: 11-30-2017 FDA Start: 11-30-2017 FDA Start: 11-30-2017 FDA Start: 11-30-2017 Goals Date Patient Goal Desired Activity /State Personal health goal Functional Status Date Assessment Result Facility 02-03-2025 Functional status Up ad [place] [facility] Work Phone: 01-11-2025 Are you deaf, or do you have serious difficulty hearing No 01/11/2025 1:13 PM Grace Chamorro RN No [facility] 01-11-2025 Are you blind, or do you have serious difficulty seeing, even when wearing glasses No 01/11/2025 1:13 PM Grace Chamorro, MELISA No [facility] 01-11-2025 Do you have serious difficulty walking or climbing stairs No 01/11/2025 1:13 PM Grace Chamorro, MELISA No [facility] 01-11-2025 Do you have difficul ty dressing or bathing No 01/11/2025 1:13 PM Grace Chamorro, MELISA No [facility] 01-11-2025 Because of a physica l, mental, or emotional condition, do you have difficulty doing errands alone such as visiting a physician's office or shopping No 01/11/2025 1:13 PM Grace Chamorro, MELISA No [facility] 01-07-2025 Functional status Ambulates [facility] Work Phone: 01-02-2025 Functional status Stand and pivot [facility] Work Phone: 01-02-2025 Functional status Standard Walker [facility] Work Phone: 11-29-2024 Functional status Ambulates;Chair [facility] Work Phone: 11-22-2014 Are you deaf, or do you have serious difficulty hearing No 11/22/2014 10:13 AM Jennifer Vu LPN No [facility] 11-22-2014 Are you blind, or do you have serious difficulty seeing, even when wearing glasses No 11/22/2014 10:13 AM Jennifer Vu LPN No [facility] 11-22-2014 Do you have serious difficulty walking or climbing stairs No 11/22/2014 10:13 AM Jennifer Vu LPN No [facility] 11-22-2014 Do you have difficul ty dressing or bathing No 11/22/2014 10:13 AM Jennifer Vu LPN No [facility] 11-22-2014 Because of a physica l, mental, or emotional condition, do you have difficulty doing errands alone such as visiting a physician's office or shopping No 11/22/2014 10:13 AM Jennifer Vu LPN No [facility] Mental Status Date Assessment Result Facility 02-03-2025 [facility] 02-02-2025 Cognitive function Voice/Name [facility] Work Phone: 01-11-2025 Because of a physica l, mental, or emotional condition, do you have serious difficulty concentrating, remembering, or making decisions No 01/11/2025 1:13 PM EDT Grace Martinez, MELISA No [facility] 01-07-2025 Cognitive function Voice/Name [facility] Work Phone: 01-03-2025 Cognitive function Level Of Cons ciousness Awake;Alert;Appropriate;Fol lows Commands [facility] Work Phone: 01-02-2025 Cognitive function Voice/Name [facility] Work Phone: 01-01-2025 [facility]: 11-29-2024 Cognitive function Voice/Name [facility] Work Phone: 11-22-2014 Because of a physica l, mental, or emotional condition, do you have serious difficulty concentrating, remembering, or making decisions No 11/22/2014 10:13 AM EDT Jennifer Alcocer LPN [facility] Clinical Notes 06-16-2023 to 02-08-2025 Telephone Encounter - Eileen Henderson MA - 02/08/2025 8:48 AM EDTTelephone Encounter - Eileen Henderson MA - 02/08/2025 8:48 AM EDTPatient Instructions Note Date & Type Note Facility 02-08-2025 Telephone encounter Note Faxed Eileen Henderson MA [facility] 02-08-2025 Miscellaneous Notes Faxed Eileen Henderson MA Brice from [facility] called requesting orders for monthly and prn peña changes and irrigation while peña is in place. Orders pended Brice [facility] fax : [phone] Josselin Edwards RN documented in this encounter [facility] 02-07-2025 Telephone encounter Note Brice from [facility] called requesting orders for monthly and prn peña changes and irrigation while peña is in place. Orders pended Brice [facility] fax : [phone] Josselin Edwards RN [facility] 02-07-2025 Instructions Prerna Mcgill APRN.HOSTESS - 02/07/2025 1:51 PM EDT - Urodynamics - Cystoscopy documented in this encounter [facility] 02-07-2025 Note [facility] 02-07-2025 History of Presen t illness Narrative Images from the original note were not included. [facility] [place] UROL PRACHI ESTABLISHED UROLOGY VISIT 02/07/2025 2:12 PM PATIENT NAME: Joao Barnett DATE OF : 1945 TODAY'S DATE: 02/07/2025 Referring Provider: No referring provider defined for this encounter. Chief Complaint: Patient presents with: Post Void Residual History of Present Illness: Mr. Barnett is a 79 year old male who presents to the office regarding urinary retention. Patient admitted to [facility] from 12/02/2024 - 12/26/2024 for pneumoperitoneum following lumbar spine surgery 11/27. Patient was seen in hospital by urology team for failed VT. New catheter was placed and patient recommended to maintain with outpatient VT. Currently on Tamsulosin 0.4 mg and Finasteride [address] negative for stones, hydro; mildly enlarged prostate. Patient has failed VT x 2 (one hospital, one at rehab). Patient here today for follow-up and bladder scan. [id number] removed catheter this morning. Patient urinated a little bit today. Has had 32 oz of fluids today. Patient noted difficulty urinating prior to hospital stay. Had weak stream and difficulty maintaining stream. Patient with history of renal insufficiency and PRISCILA. GFR- 24 Cr- 2.66 on 01/11/2025. History of diabetes II. PVR - 419 mL Accompanied by [id number] and . Review of Systems Constitutional: Negative for chills and fever. Genitourinary: See HPI Past Medical History: PAST MEDICAL HISTORY Diagnosis Date Allergic rhinitis Chronic lower back pain CKD (chronic kidney disease), stage III (HCC) Essential hypertension, benign Generalized osteoarthrosis, unspecified site GERD (gastroesophageal reflux disease) Other and unspecified hyperlipidemia Peripheral neuropathy Pneumoperitoneum 12/02/2024 Type II or unspecified type diabetes mellitus without mention of complication, not stated as uncontrolled Past Surgical History: PAST SURGICAL HISTORY Procedure Laterality Date COLONOSCOPY FLX DX W/COLLJ SPEC WHEN PFRMD 06/27/09 [facility] inpt LAPAROSCOPY SURG RPR INITIAL INGUINAL HERNIA 07/14/06 BILATERAL INGUINAL HERNIA PAST SURGICAL HISTORY OF Right 1997 hand ligament repair Social History: Social History Tobacco Use Smoking status: Former Current packs/day: 0.00 Average packs/day: 2.0 packs/day for 20.0 years (40.0 ttl pk-yrs) Types: Cigarettes Start date: 1965 Quit date: 1985 Years since quittin.4 Smokeless tobacco: Never Substance Use Topics Alcohol use: Not Currently Comment: once or twice yearly Drug use: Never Medications: Prior to Admission medications : Medication carvedilol (COREG) 6.25 mg tablet, Sig 1 tablet by ORAL/FEEDING TUBE route two times a day with meals., Start Date 12/26/24, End Date , Taking? , Authorizing Provider SriCathy APRN.SHUBHAM LAMBERT Medication isosorbide dinitrate (ISORDIL) 10 mg tablet, Sig Take 1 tablet by mouth three times a day., Start Date 12/26/24, End Date , Taking? , Authorizing Provider Cathy Fierro APRN.CNP, DNP Medication insulin glargine 100 unit/mL (3 mL), Sig Inject 14 Units subcutaneously every morning., Start Date 12/26/24, End Date , Taking? , Authorizing Provider Cathy Fierro APRN.CNP, DNP Medication insulin lispro 100 unit/mL injection, Sig Inject 1 Units subcutaneously daily at bedtime. ADMINISTER CORRECTIONAL INSULIN REGARDLESS OF MEAL OR NUTRITION INTAKE Custom Scale. If Blood Glucose (mg/dL) is: Less than 110= 0 units, 111-150 = 0 units, 151-200 = 0 units, 201-275 = 1 units, 276-350 = 2 units, 351-425 = 3 units, Greater than 425 = 4 units, Notify provider if 2 consecutive blood glucose values in the previous 24 hours are greater than 350 mg/mL and there have been no changes to the insulin regimen in the previous 24 hours., Start Date 12/26/24, End Date , Taking? , Authorizing Provider Cathy Fierro APRN.SHUBHAM LAMBERT Medication insulin lispro 100 unit/mL injection, Sig Inject 4 Units subcutaneously with meals. ADMINISTER 4 units and slide scale with meals: Custom Scale. If Blood Glucose (mg/dL) is: Less than 110= 0 units, 111-150= 0 units, 151-200= 1 units, 201-250= 2 units, 251-300= 3 units, 301-350= 4 units, 351-400= 5 units, Greater than 400= 6 units, Notify provider if 2 consecutive blood glucose values in the previous 24 hours are greater than 350 mg/mL and there have been no changes to the insulin regimen in the previous 24 hours., Start Date 12/26/24, End Date , Taking? , Authorizing Provider Cathy Fierro APRN.CNP, DNP Medication finasteride (PROSCAR) 5 mg tablet, Sig Take 1 tablet by mouth once daily., Start Date 12/27/24, End Date , Taking? , Authorizing Provider aCthy Fierro APRN.CNP, DNP Medication Miscellaneous Medical Supply, Sig Ileostomy supplies: - 1 box Coloplast Assura one piece drainable pouch # 43381 OR - 2 boxes Coloplast [place] wafer flat red #34762 - 1 box Coloplast [place] drainable pouch red # 49068 - 1 box Small barrier rings # 7805 - 1 tube stomahesive paste # 2650 - 1 bottle stomahesive powder # 70570 - 1 box Coloplast Elastic Barrier strips # [id number] - 1 box No sting skin barrier prep wipes # 3343 - 1 box adhesive removal wipes, Start Date 12/19/24, End Date , Taking? , Authorizing Provider Cathy Fierro, PERIPHERAL EDP EQUIPMENT OPERATOR.HOSTESS, DNP Medication gabapentin (NEURONTIN) 300 mg capsule, Sig Take 300 mg by mouth daily at bedtime., Start Date , End Date , Taking? , Authorizing Provider Provider, [facility] Medication tamsulosin ER (FLOMAX) 0.4 mg cp24, Sig Take 1 capsule by mouth daily at bedtime., Start Date 06/30/17, End Date , Taking? , Authorizing Provider Shiva Hancock MD Medication aspirin(ASPIR-LOW 81 MG TAB), Sig Take one(1) tablet daily., Start Date 06/01/08, End Date , Taking? , Authorizing Provider Alvaro Thorne ALLERGIES Allergen Reactions Januvia [Sitaglipti* Intolerance Arthralgias Lipitor [Atorvastat* Intolerance myalgias Pravastatin Intolerance myalgias Tetanus Vaccines An* Zetia [Ezetimibe] Intolerance myalgia Zocor [Simvastatin] Problem List Reviewed: Yes Prior Notes Reviewed: Yes Vitals: There were no vitals taken for this visit. Physical Exam Vitals reviewed. Constitutional: Appearance: Normal appearance. Abdominal: Tenderness: There is no abdominal tenderness. Musculoskeletal: Comments: Rollator Skin: General: Skin is warm and dry. Neurological: Mental Status: He is alert. Psychiatric: Mood and Affect: Mood normal. Behavior: Behavior normal. Labs: Creatinine Date Value Ref Range Status 01/11/2025 2.66 (H) 0.73 - 1.22 mg/dL Final PSA Screening (ng/mL) Date Value 11/14/2013 1.03 11/21/2012 0.96 Color (no units) Date Value 12/13/2024 Light Yellow Clarity (no units) Date Value 12/13/2024 Clear Glucose, Urine Date Value 12/13/2024 1+ 04/05/2014 1,000 mg/dL Bilirubin, Urine (no units) Date Value 12/13/2024 Negative 04/05/2014 neg Ketones, Urine (no units) Date Value 12/13/2024 Negative 04/05/2014 neg Specific Donora, Ur (no units) Date Value 12/13/2024 1.026 04/05/2014 1.010 Hemoglobin/Blood,Ur (no units) Date Value 12/13/2024 1+ 04/05/2014 neg pH, Urine (no units) Date Value 12/13/2024 7.0 04/05/2014 6.0 Protein, Urine Date Value 12/13/2024 1+ 04/05/2014 trace mg/dL Urobilinogen (no units) Date Value 12/13/2024 Normal Nitrites (no units) Date Value 12/13/2024 Negative 04/05/2014 neg Leuk Esterase (no units) Date Value 12/13/2024 Negative Radiology Review: Reviewed CT imaging from 12/01/2024 and 01/03/2025 Bladder wall thickening noted. No hydro or stones. Mild bilateral renal atrophy. Procedure: PVR - 419 mL After discussion of the procedure, the patient was placed in the supine position. The urethra was prepped and draped in the usual sterile fashion. 10 cc of Urojet was instilled into the urethra. A 16-Fr coude catheter was inserted into the urethra and advanced to the bladder until the catheter was hubbed at the meatus by Prerna Mcgill APRN.HOSTESS. Position was confirmed with return of 500 cc urine. 10 cc of sterile water was injected into balloon port. The catheter was attached to gravity drainage and urine was noted to be flowing into tubing and bag. Patient tolerated the procedure well. ASSESSMENT/PLAN: 1. Retention of urine - ICD9: 788.20, ICD10: R33.9 - Patient here for PVR check following catheter removal this AM - PVR - 419 mL - Patient with multiple failed VT attempts - Discussed option with family of replacing catheter vs leaving catheter out given residual. Risks of decreased kidney function, UTI, hydro with urinary retention discussed. - Patient opts for catheter replacement. 16 Fr coude catheter placed without immediate complication. - Discussed option of UDS with cystoscopy for further investigation on bladder function/prostate size. Patient agreeable to this. - URODYNAMICS/FLUOR URODYNAMICS - CYSTO.PANENDO - LIDOCAINE 2 % MUCOSAL JELLY IN APPLICATOR Prerna Mcgill APRN.CNP I spent a total of 65 minutes on the date of the service which included preparing to see the patient, [id number] patient care, completing clinical documentation, obtaining and/or reviewing separately obtained history, counseling and educating the patient/family/caregiver, and ordering medications, tests, or procedures. documented in this encounter [facility] 02-03-2025 Discharge summary Note Date/Time February 03, 2025 8:47am [facility] Medical Records Department [address] [place] [address] Instructions for Home/Discharge Instructions 02/02/25 0954 MR#: [id number] Acct: [id number] Name: JOAO BARNETT Rep #:[id number] 8 : 1945 79 From: Marie Patino DO PCP: DEANNA Franklin Status:ADM IN Discharge Instructions Diet Discharge Diet: - (Carb control, low potassium, low phosphorous, ) DC O2, CPAP, BIPAP needs Home O2 Discharge instructions: No Dressing / Incision Discharge Activity: May Shower and Use Walker Weight Bearing Status: Full weight bearing Keep extremity elevated above heart level: Legs Dressing / Incision Call your doctor if you observe: Fever of 101 or Higher, Inability to have a bowel movement, Shortness of breath, Dizziness, Fainting spells, Swelling in theankles, Chest pain, Increased palpitations (irregular heartbeat), Uncontrolled pain and - (If the urine is cloudy or you have visible blood in the urine. Shaking chills, fever, night sweats, confusion - these are all signs of possibleurinary tract infection. ) Catheter: - (peña to leg bag or to large bag........use the leg bag if you are out and about in the community. ) Drain: Donora Follow Up Care When: follow up/appointments are listed later in this document. Test Results: Test results from this visit will be discussed in further detail at your follow-up appointment, if applicable. Pending Tests Upon Discharge: none Discharge Plan Admission Admit Date/Time: 01/11/25 14:25 Primary Reason for Your Visit: Debility due to partial colectomy/abd abscesses. Attending Provider: Marie Patino Primary Care Provider: Trinity Coronado Consulting Providers: Judson Matute; Len Wilson Instructions Patient Instructions: TURP, CKD Dc, TAVR Additional Instructions / Restrictions: 1. You have done an amazing job on rehab. You could not stand up by yourself when you first got here and now you are climbing a full flight of stairs. You are much stronger now and you are ready for what comes next. You had a heart attack while you were at [facility]. You have also had congestive heart failure. Normally when the heart squeezes it squeezes 55-65% of the blood out. Your heart squeezes only 35% of the blood out. Sometimes the rest can back up into the lungs and cause shortness of breath with exertion, swelling in your legs, shortness of breath when lying flat in bed and fatigue. You are going to need to have a cardiac catheterization after you are discharged and possibly an Aortic valve replacement. The cath is to make sure you do not have any significant disease in the arteries of the heart that would cause it not to squeeze well or would cause a heart attack. Valve replacements can now sometimes be done through a catheter and you do not have to have the chest opened surgically. I have given you some information on TAVR (transaortic valvereplacement). Getting the heart taken care of is your #1 priority. 2. You have chronic kidney disease. There are 5 stages of chronic kidney failure and you are in stage 4 (severe). Because of the kidney failure your body retains potassium and phosphorous. You will now have to follow a diet lowin potassium and phosphorous to keep these levels from getting too high. You are also on medications to help keep the potassium and the magnesium within normal limits. You will be seeing Dr. Wilson to help keep your kidneys in the bestshape possible and prevent further kidney damage. I am hopeful that there will be some improvement in the kidney function when the heart gets better. 3. You retain urine. This is most likely due to enlargement of the prostate. We have tried medication and they either do not work effectively to control the problem OR they cause your BP to drop with standing. Unfortunately we had to reinsert the Peña catheter prior to you discharging home. At some point you will need to see a urologist to address this problem and you may need surgery. This is not a priority right now........the heart is the priority. Catheters can become infected. The signs that you may have a urinary tract infection include fever, chills, night sweats, pain in the pelvic area and confusion. Often as we get older we do not have fevers and the only sign of an infection may be confusion. If you have any of the symptoms call your doctor. Also call if the urine becomes very cloudy or you have visible blood in the urine. Sometimes the urine will become very malodorous. You will have a home health nurse checking on the Peña.........if you notice something is different let thenurse know. 4. I want you to weigh yourself every morning after urinating (naked or wearingthe same clothes everyday) and keep a record. You should have a digital scale for accuracy. The first time you weigh yourself when you get home will be your baseline. If your weight goes up by 3 lbs OR you have swelling in the ankles orincreased shortness of breath take 1 Lasix tab daily until the weight is back toyour baseline. Watch your salt intake......salt makes you retain water. 5. You are on a lot less insulin now than you were at admission to rehab. You will be taking the long acting insulin in the morning with breakfast. You will take 14 units. With meals you will be taking the aspartame (short acting insulin) 3 units. If the blood sugar prior to a meal is > 180 take an extra 1 unit. If the blood sugar is > 220 take 2 extra units. Check your blood sugar before meals and at bedtime....just like we were doing in the hospital. Take the record of the blood sugars to your appt with Dr. Garcia. If your blood sugars are less than 100 or greater than 250 over the weekend call me for instructions. 6. It has been a pleasure getting to know you and your family. You are in a good place now to move forward with the additional testing you need and hopefully a valve replacement. It is important to KEEP MOVING. Do the exercises the therapists have given you everyday so you do not lose ground. If you get short of breath or lightheaded sit down and take a rest for a few minutes. If you or any of your family have any questions after you leave rehab please DO NOT HESITATE TO CALL ME. OFFICE: [phone] CELL: [phone] NURSES STATION ON REHAB: [phone] Discharge Orders/Prescriptions Prescriptions: New carvedilol 12.5 mg Tablet 12.5 mg PO BIDCM Qty: 60 0RF isosorbide dinitrate 10 mg Tablet 10 mg PO TID@0700,1200,1700 Qty: 90 0RF loperamide 2 mg Capsule 4 mg PO Q6H Qty: 240 0RF ipratropium bromide 42 mcg (0.06 %) [facility],Non-Aerosol 2 spray NASAL BID Qty: 1 0RF fluticasone propion-salmeterol 232-14 mcg/actuation Aerosol Powdr Breath Activated 1 inh inhalation Q12 Qty: 1 0RF Rx Instructions: rinse mouth after every use pantoprazole 40 mg Tablet,Delayed Release (Dr/Ec) 40 mg PO BID Qty: 60 0RF mirtazapine 15 mg Tablet 15 mg PO 2100 Qty: 30 0RF simethicone 80 mg Tablet,Chewable 80 mg PO PCHS Qty: 120 0RF magnesium chloride [Mag 64] 64 mg Tablet,Delayed Release (Dr/Ec) 64 mg PO BID Qty: 60 0RF Daily Fiber (psyllium-aspart) 3 gram Powder In Packet 1 packet PO TID Qty: 90 0RF insulin glargine-yfgn 100 unit/mL (3 mL) Insulin Pen 14 unit subcut 0700 Qty: 2 0RF insulin aspart U-100 100 unit/mL (3 mL) insulin pen 3 unit subcut TID Qty: 2 0RF sodium bicarbonate 650 mg tablet 650 mg PO TID Qty: 90 0RF furosemide [Lasix] 80 mg tablet See Rx Instructions .ROUTE .COMPLEX Qty: 20 0RF Rx Instructions: take 1 tab in the morning if wt increases by 3 lbs. Continued aspirin 81 MG tablet 81 mg PO DAILY@0800 gabapentin 300 mg capsule 300 mg PO QHS acetaminophen 325 mg capsule 650 mg PO Q4H PRN (Reason: fever or pain) Discontinued tamsulosin 0.4 MG capsule 0.4 mg PO QHS carvedilol [Coreg] 6.25 mg tablet 6.25 mg PO BID Rx Instructions: must administer with a meal/food finasteride [Proscar] 5 mg tablet 5 mg PO DAILY isosorbide dinitrate [Isordil Titradose] 5 mg tablet 10 mg PO TID Rx Instructions: allow nitrate-free interval of 12-14 hrs per 24-hr period ciprofloxacin HCl 500 mg tablet 500 mg PO DAILY Referrals / Follow Up: Jeremias Carrero [Other] - 02/07/25 1:40 pm (Remove Peña at 8am on 02/07/25) Jack Mota-Cardiology [Other] - 03/06/25 3:20 pm () Len Wilson MD [Med Staff - Consulting] - (office wants pt. to make apptafter DC) Rita Garcia DO [Med Staff - Counselor At Law] - 02/16/25 11:00 am Disposition Disposition (needs filled in before D/C Order can be placed): Home Health Service 02/02/25 1339<Electronically signed by Marie Patino DO>Marie Patino DO CC: DEANNA Coronado; Dr. Len Wilson MD; Dr. Rita Garcia DO; Judson Matute, ~ Signed ADDENDUM by Dr. Marie Patino DO on 02/03/25 at 0847 Check blood sugars before meals and at bedtime. IF the blood sugar prior to eating is less than 100 DO NOT GIVE THE INSULIN. You will always take the long acting insulin (Glargine) in the AM. This insulin helps to control the blood sugar all day. Your insulin requirements have decreased significantly in the past week. You may be able to come off insulin and use a pill called Amaryl (also called glimepiride). This drug is safe to give with people with kidney failure. It is eliminated through the liver not the kidneys. Please call me Wednesday and let me know what the blood sugars have been since you got home. [phone]. 02/03/25 0847<Electronically signed by Marie Patino DO>Marie Patino DO cc: [employer]OW [employer]-C Trinity Coronado; Dr. Len Wilson MD; Dr. Rita Garcia DO; Judson Matute, ~* Signed [facility] Work Phone: 1(397) 906-831607-11-2025 Consult note Author Len Wilson [facility] Note Date/Time February 02, 2025 12:1 4pm [facility] Medical Records Department [address] [place] [address] Consultation - Nephrology 02/02/25 1204 MR#: [id number] Acct: [id number] Name: JOAO BARNETT Rep #:[id number] : 1945 79 From: Len barrios MD PCP: DEANNA Franklin Status:ADM IN Location: [place] [address] Assessment & Plan Assessment/Plan (1) PRISCILA (acute kidney injury): (2) CKD (chronic kidney disease), stage IV: PLAN: Baseline creatinine prior to recent surgeries was around 1.6. Most of these hospitalizations, his creatinine is closer to 2.0 with fluctuations. Urinary retention, Peña in, likely DC home with Peña catheter Congestive heart failure. Discussed with hospitalist. Would use Lasix as needed depending on the weights Acidosis. Likely causing hyperkalemia as well. Sent home on sodium [id number] mg 3 times daily Will arrange follow-up in the office HPI Consult Data Date of Consult: 02/02/25 HPI Narrative Reason for Consultation: PRISCILA HPI Narrative: JOAO BARNETT, is a 79 M who presents To the rehab after recent hospitalization. He was recently admitted at [facility] For initially abdominal pain, ended upgetting a hemicolectomy, ileostomy. He was readmitted for a intra-abdominal abscess requiring drain placement. He is here for rehab. We saw him mostly at [facility] For acute renal failure, on top of CKD stage IIIb/IV. Baseline creatinine prior to this hospitalizations was 1.6. He had PRISCILA due to ATN, required dialysis. This was subsequently stopped due to recovery of renal function. Other issues include BPH, urinary retention, failed multiple voiding trials, failed this week as well, likely discharge home with Peña catheter Congestive heart failure with low ejection fraction Aortic stenosis, likely needs TAVR Intra-abdominal abscess, status post drain placement He has some volume losses due to ileostomy output in addition to regular urine output. [facility] Medical History Diverticulosis Acute renal failure superimposed on stage 4 chronic kidney disease Diabetic polyneuropathy Iron deficiency anemia Irregular heart beat CKD (chronic kidney disease), stage IV Wears glasses Wears dentures BPH (benign prostatic hyperplasia) History of diverticulitis Former smoker Leg cramps History of echocardiogram Hypertrophic scar Carotid stenosis, left Sebaceous cyst Amaurosis fugax of right eye Sciatica Hyperlipidemia Osteoarthritis Hemorrhoid GERD (gastroesophageal reflux disease) HTN (hypertension) Home Medications ?Medication ?Instructions ?Recorded ?Last Taken ?Type aspirin 81 mg tablet,delayed 81 mg PO DAILY@0800 heart health 04/16/17 11/26/24 09:00 History release gabapentin 300 mg capsule 300 mg PO QHS PAIN 10/31/24 11/25/24 22:30 History acetaminophen 325 mg capsule 650 mg PO Q4H PRN fever o r pain 01/11/25 Unknown History carvedilol 12.5 mg tablet 12.5 mg PO BIDCM #60 tabs Unknown Rx fluticasone 232 mcg-salmeterol 14 1 inh inhalation Q12 #1 ea 02/02/25 Unknown Rx mcg/actuation breath activated powdr ipratropium bromide 42 mcg (0.06 2 spray NASAL BID #1 BOTTLE 02/02/25 Unknown Rx %) nasal spray isosorbide dinitrate 10 mg tablet 10 mg PO TID@0700,12 00,1700 #90 02/02/25 Unknown Rx tabs loperamide 2 mg capsule 4 mg (2 x 2 mg) PO Q6H #240 caps 02/02/25 Unknown Rx magnesium chloride 64 mg 64 mg PO BID #60 tabs Unknown Rx (magnesium chloride) tablet,delayed release (Mag 64) mirtazapine 15 mg tablet 15 mg PO 2100 #30 tabs 02/02 Unknown Rx pantoprazole 40 mg tablet,delayed 40 mg PO BID #60 tab s 02/02/25 Unknown Rx release psyllium husk 3 gram oral powder 1 packet PO TID #90 e a 02/02/25 Unknown Rx packet (Daily Fiber (psyllium-aspartame)) simethicone 80 mg chewable tablet 80 mg PO [facility] #120 t abs 02/02/25 Unknown Rx Allergy/AdvReac Type Severity Reaction Status Date / Time atorvastatin (From Lipitor) Allergy INTOLERANCE Verified 12/26/24 20:42 ezetimibe (From Zetia) Allergy MYALGIA Verified 12/26/24 20:42 pravastatin Allergy MYALGIAS Verified 12/26/24 20:42 simvastatin (From Zocor) Allergy INTOLERANCE Verified 12/26/24 20:42 sitagliptin (From Januvia) Allergy INTOLERANCE Verified 12/26/24 20:42 tetanus and diphtheria Allergy Rash Verified 12/01/24 22:00 toxoids ciprofloxacin (From Cipro) AdvReac Intermediate achilles Verified 02/02/25 10:34 tendonitis Lolxfiw-KMB-VbG Reductase AdvReac Other Verified 12/01/24 22:00 Inhibitor (Zfewsjn-Cze-Ecb Reductase Inhibitor) Family History Father Diabetes Heart disease Myocardial infarction Mother CAD (coronary artery disease) Arthritis Surgical History H/O drainage of abscess History of partial colectomy History of lumbar fusion History of ileostomy History of right hemicolectomy History of right-sided carotid endarterectomy (~11/2017) History of umbilical hernia S/P ventral herniorrhaphy S/P inguinal hernia repair S/P colonoscopy Social History household members: spouse Smoking Status: Former smoker alcohol intake: never substance use type: does not use ROS ROS Narrative negative except above Physical Exam Narrative looks comfortable + edema Medical Records Data Medical Nutrition Assessment Dietitian: Malnutrition Criteria Met Start: 01/12/25 12:44 Freq: Status: Active Protocol: Document 01/15/25 10:00 [facility] (Rec: 01/15/25 10:00 GRACIE [id number]) Nutrition Malnutrition Evidence of Yes Malnutrition Exists Evidenced By Suboptimal Energy Intake (Severe),Weight Loss (Severe), Physical Changes (Moderate) Clinical Problem Acute Disease or Injury Related Malnutrition Etiology r/t acute illness and recent surgeries and suboptimal energy intake Signs/Symptoms as evidenced by po intake meeting <75% of estimated nutritional needs and 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 Patino- soft and bite sized Changes consistency Will continue Nepro CHO Steady tid w/ meals for additional abel/pro if consumed. Continue appetite stimulant as ordered Continue to follow and monitor for changes in pt nutritional status and make additional rec as indicated . Lab / Micro Data 02/02/25 05:21 02/02/25 05:21 Labs: Laboratory Results - last 24 hr 02/01/25 16:09: POC Glucose 109 H 02/01/25 20:32: POC Glucose 81 02/01/25 21:33: POC Glucose 67 L 02/01/25 22:52: POC Glucose 101 02/02/25 05:21: Hgb 8.2 L, Hct 24.7 L, Sodium 132 L, Potassium 5.0, Chloride 100, Carbon Dioxide 21.0, Anion Gap 11, BUN 47 H, Creatinine 2.43 H, Estim CreatClear Calc 21.79 L, Est GFR (MDRD) Non-Af 27 L, BUN/Creatinine Ratio 19.5, Glucose 98, Calcium 9.2, Phosphorus 5.2 H, Magnesium 1.5, Albumin 3.1 L 02/02/25 06:06: POC Glucose 103 02/02/25 11:15: POC Glucose 86 02/02/25 1214 <Electronically signed by Len Wilson MD> Cosigner Signature (if applicable): CC: WINDOW ASSEMBLERJulieta Coronado; Dr. Marie Patino, DO~ Signed [facility] Work Phone: 1(444) 505-129607-11-2025 [facility]07-11-2025 Progress note Author Marie Patino [facility] Note Date/Time February 02, 2025 9:44 am [facility] Medical Records Department [address] [place] [address] Progress Note 02/02/25822 MR#: [id number] Acct: [id number] Name: JOAO BARNETT Rep #:[id number] 8 : 1945 79 From: Marie JenningsLeon Carey PCP: Trinity Coronado [employer] ASSEMBLER-C Status:ADM IN Location: [id number] Subjective Subjective Afebrile Vital signs stable Weight today is 157 pounds 2.3 ounces....... this is up from 155 pounds on Wednesday of this week. Has mild pitting edema of the ankles today.......L>R. HGBA is 8.2, down from 8.9 earlier in the week and I suspect this is dilutional. His last dose of Lasix was on 01/27 and he got 80 mg and a dose of Kayexalate. K is 5 today and the creatinine is 2.43 which is up from 1.93 on 01/30/2025. Bicarb is normal at 21. Calcium is normal at 9.2 ( ALB is 3.1) and phosphorus is mildly increased at 5.2 despite calcium acetate. Magnesium is 1.5. Everardo denies lightheadedness today and he denies CP, orthopnea and PND. His cough improved with bronchodilators. Wheezing resolved with bronchodilators. Coarse crackles in the lower 1/3 of the lungs posteriorly are chronic. DUMONT improved with Albuterol. I&O are inconsistent and I am relying more on the daily weights. Failed voiding trial. Peña is going to be reinserted. Urine retention couldbe contributing to the increase in the CREAT. Peña was removed Wednesday AM. Does not tolerate Flomax + Proscar due to orthostatic hypotension and Flomax alone is not effective. Will discontinue the Flomax since it is not helping with urine retention and it contributes to orthostasis. He was able to use the fluticasone/Salmeterol inhaler today with some instruction from the nurse on how to use the inhaler. Objective Data Objective Data Vital Signs: Vital Signs Temp Pulse Resp BP Pulse Ox O2 Del Method 98.0 F 75 17 108/52 L 93 Room Air 02/02/25 05:57 02/02/25 05:57 02/02/25 05:57 02/02/25 05:57 02/02/25 05:57 02/02/25 05:57 Oxygen Delivery Method Room Air Weight: 157 lb 3.2 oz Body Mass Index (BMI) 26.2 Intake & Output: Intake and Output for Last 24 Hours 01/31/25 02/01/25 02/02/25 23:59 23:59 23:59 Intake Total 1780 / 1780 1130 / 1130 200 / 200 Output Total 2900 / 2900 1775 / 1775 400 / 400 Balance -1120 / -1120 -645 / -645 -200 / -200 Medical Nutrition Assessment Dietitian: Malnutrition Criteria Met Start: 01/12/25 12:44 Freq: Status: Active Protocol: Document 01/15/25 10:00 [facility] (Rec: 01/15/25 10:00 [facility] [id number]) Nutrition Malnutrition Evidence of Yes Malnutrition Exists Evidenced By Suboptimal Energy Intake (Severe),Weight Loss (Severe), Physical Changes (Moderate) Clinical Problem Acute Disease or Injury Related Malnutrition Etiology r/t acute illness and recent surgeries and suboptimal energy intake Signs/Symptoms as evidenced by po intake meeting <75% of estimated nutritional needs and 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 Patino- soft and bite sized Changes consistency Will continue Nepro CHO Steady tid w/ meals for additional abel/pro if consumed. Continue appetite stimulant as ordered Continue to follow and monitor for changes in pt nutritional status and make additional rec as indicated . Lab / Micro Data 02/02/25 05:21 02/02/25 05:21 Labs: Laboratory Results - last 24 hr 02/01/25 11:12: POC Glucose 104 02/01/25 16:09: POC Glucose 109 H 02/01/25 20:32: POC Glucose 81 02/01/25 21:33: POC Glucose 67 L 02/01/25 22:52: POC Glucose 101 02/02/25 05:21: Hgb 8.2 L, Hct 24.7 L, Sodium 132 L, Potassium 5.0, Chloride 100, Carbon Dioxide 21.0, Anion Gap 11, BUN 47 H, Creatinine 2.43 H, Estim CreatClear Calc 21.79 L, Est GFR (MDRD) Non-Af 27 L, BUN/Creatinine Ratio 19.5, Glucose 98, Calcium 9.2, Phosphorus 5.2 H, Magnesium 1.5, Albumin 3.1 L 02/02/25 06:06: POC Glucose 103 Micro: Microbiology 01/24/25 13:05 Mucosa - Nasopharyngeal Respiratory Panel (PCR) - Final 01/24/25 10:19 Nasal Secretion SARS-CoV-2 Antigen (Rapid) - Final 01/19/25 10:50 Stool Clostridioides difficile (PCR) - Final 01/19/25 10:50 Stool Enteric Bacteriology - Final 01/19/25 10:00 Stool Stool Lactoferrin - Final 01/19/25 10:50 Stool Stool Occult Blood (RYLEE) - Final Occult Blood Positive 01/11/25 21:20 Stool Stool Occult Blood (RYLEE) - Final Physical Exam Const alert, oriented x3 and no apparent distress Constitutional Narrative: Doing well in therapy and has gotten much stronger over the course of his admission to acute rehab. General Appearance: cooperative Resp Resp Narrative: better air exchange since bronchodilators were started. DUMONT is better. Cough is better. Coarse crackles one third of the way of the posterior lung lucero persist and are unchanged. No wheezing today. Cardio regular rate, regular rhythm and no rub Cardio Narrative: No change in the MM. No ectopy GI normal to inspection, nondistended, normoactive bowel sounds, soft to palpation and non-tender GI Narrative: ostomy looks good/pink. Extremity no calf tenderness General Extremity: edema bilateral lower extremity (BL ankles......no pretibial edema L>R ankle edema) Details: mild Skin Rashes: no rashes Assessment & Plan Assessment/Plan (1) Cough: QUALIFIERS: Cough type: acute Qualified Code(s): R05.1 - Acute cough (2) Debility: (3) History of right hemicolectomy: (4) History of ileostomy: (5) CKD (chronic kidney disease), stage IV: (6) Orthostatic hypotension: (7) Anemia: QUALIFIERS: Anemia type: unspecified type Qualified Code(s): D64.9 - Anemia, unspecified (8) Dysphagia, oropharyngeal: (9) Cognitive dysfunction: (10) Other severe protein-calorie malnutrition: (11) Cardiomyopathy: QUALIFIERS: Cardiomyopathy type: unspecified Qualified Code(s): I42.9 - Cardiomyopathy, unspecified (12) Severe aortic stenosis: (13) Urinary retention: (14) BPH (benign prostatic hyperplasia): QUALIFIERS: Lower urinary tract symptom presence: symptoms present Lower urinary tract symptom detail: urinary retention Qualified Code(s): N40.1- Benign prostatic hyperplasia with lower urinary tract symptoms; R33.8 - Other retention of urine (15) Essential (primary) hypertension: (16) History of diabetes mellitus: (17) Depression: QUALIFIERS: Depression Type: reactive depression Qualified Code(s): F32.9 - Major depressive disorder, single episode, unspecified (18) Heme positive stool: (19) Hyponatremia: (20) Hyperphosphatemia: (21) Metabolic acidosis: (22) COPD (chronic obstructive pulmonary disease): QUALIFIERS: COPD type: unspecified COPD Qualified Code(s): J44.9 - Chronic obstructive pulmonary disease, unspecified PLAN: Plan 1. Continue therapy today 2. Plan discharge home with [facility] home health care 3. Lasix 80 mg IV x 1 today. 4. Kayexalate [address] today. 5. [address] Wilson 6. DC Flomax - has not been effective in the tx of urine retention........will need TURP going forward and he has an appt with a urologist already. Prior to any urologic surgery he will need to have a good cardiac evaluation with cardiaccath and possible TAVR We discussed the possibility of HD going forward........jovanny since he will get dye with the cardiac cath. Charges/Coding Visit Charges Inpatient E&M: 89206 Subs Hosp L2 02/02/25 0944 <Electronically signed by Marie Patino DO> Marie Patino DO Cosigner Signature (if applicable): CC: ~ Signed [facility] Work Phone: 1(704) 342-852707-10-2025 Progress note Author Marie [facility] Note Date/Time February 01, 2025 12:1 2pm [facility] [facility] Medical [facility] Department [address] [place] [address] Progress Note 02/01/25 1147 MR#: [id number] Acct: [id number] Name: JOAO BARNETT Rep #:[id number] 2 : 1945 79 From: Marie Patino DO PCP: DEANNA Franklin Status:ADM IN Location: [address] Subjective Subjective Afebrile Vital signs stable Denies lightheadedness. Maintaining appropriate oxygen saturation on room air. Postvoid residuals are elevated. Weight is stable Cough has improved with aerosols and the wheezing/squeaking is better. Better air exchange today. No tachycardia with the aerosols. Objective Data Objective Data Vital Signs: Vital Signs Temp Pulse Resp BP Pulse Ox O2 Del Method 97.3 F L 95 16 114/58 L 93 Room Air 02/01/25 05:00 02/01/25 08:15 02/01/25 05:00 02/01/25 08:15 02/01/25 05:00 02/01/25 10:00 Oxygen Delivery Method Room Air Weight: 156 lb 8 oz Body Mass Index (BMI) 26.0 Intake & Output: Intake and Output for Last 24 Hours 01/30/25 01/31/25 02/01/25 23:59 23:59 23:59 Intake Total 2400 / 2400 1780 / 1780 410 / 410 Output Total 2350 / 2350 2900 / 2900 1350 / 1350 Balance 50 / 50 -1120 / -1120 -940 / -940 Medical Nutrition Assessment Dietitian: Malnutrition Criteria Met Start: 01/12/25 12:44 Freq: Status: Active Protocol: Document 01/15/25 10:00 [facility] (Rec: 01/15/25 10:00 [facility] [id number]) Nutrition Malnutrition Evidence of Yes Malnutrition Exists Evidenced By Suboptimal Energy Intake (Severe),Weight Loss (Severe), Physical Changes (Moderate) Clinical Problem Acute Disease or Injury Related Malnutrition Etiology r/t acute illness and recent surgeries and suboptimal energy intake Signs/Symptoms as evidenced by po intake meeting <75% of estimated nutritional needs and 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 Patino- soft and bite sized Changes consistency Will continue Nepro CHO Steady tid w/ meals for additional abel/pro if consumed. Continue appetite stimulant as ordered Continue to follow and monitor for changes in pt nutritional status and make additional rec as indicated . Lab / Micro Data 01/30/25 06:13 01/30/25 06:13 Labs: Laboratory Results - last 24 hr 01/31/25 17:03: POC Glucose 100 01/31/25 21:49: POC Glucose 138 H 02/01/25 06:36: POC Glucose 139 H 02/01/25 11:12: POC Glucose 104 Micro: Microbiology 01/24/25 13:05 Mucosa - Nasopharyngeal Respiratory Panel (PCR) - Final 01/24/25 10:19 Nasal Secretion SARS-CoV-2 Antigen (Rapid) - Final 01/19/25 10:50 Stool Clostridioides difficile (PCR) - Final 01/19/25 10:50 Stool Enteric Bacteriology - Final 01/19/25 10:00 Stool Stool Lactoferrin - Final 01/19/25 10:50 Stool Stool Occult Blood (RYLEE) - Final Occult Blood Positive 01/11/25 21:20 Stool Stool Occult Blood (RYLEE) - Final Physical Exam Const alert and no apparent distress Resp Resp Narrative: Better air exchange today, No wheezing, opening pops, not squeaking with inspiration and I have not heard him cough all day. The coarse crackles in the posterior lower 1/2 of each lung are chronic and unchanged. Cardio regular rate, regular rhythm, no rub and no gallops GI normal to inspection, nondistended, normoactive bowel sounds, soft to palpation and non-tender Extremity General Extremity: Negative for edema Assessment & Plan Assessment/Plan (1) Cough: QUALIFIERS: Cough type: acute Qualified Code(s): R05.1 - Acute cough (2) Debility: (3) History of right hemicolectomy: (4) History of ileostomy: (5) CKD (chronic kidney disease), stage IV: (6) Orthostatic hypotension: (7) Anemia: QUALIFIERS: Anemia type: unspecified type Qualified Code(s): D64.9 - Anemia, unspecified (8) Dysphagia, oropharyngeal: (9) Cognitive dysfunction: (10) Other severe protein-calorie malnutrition: (11) Cardiomyopathy: QUALIFIERS: Cardiomyopathy type: unspecified Qualified Code(s): I42.9 - Cardiomyopathy, unspecified (12) Severe aortic stenosis: (13) Urinary retention: (14) BPH (benign prostatic hyperplasia): QUALIFIERS: Lower urinary tract symptom presence: symptoms present Lower urinary tract symptom detail: urinary retention Qualified Code(s): N40.1- Benign prostatic hyperplasia with lower urinary tract symptoms; R33.8 - Other retention of urine (15) Essential (primary) hypertension: (16) History of diabetes mellitus: (17) Depression: QUALIFIERS: Depression Type: reactive depression Qualified Code(s): F32.9 - Major depressive disorder, single episode, unspecified (18) Heme positive stool: PLAN: Plan 1. Continue therapy 2. Change the albuterol aerosols to every 4 hours as needed for shortness of breath/coughing/wheezing 3. Start a Salmeterol/fluticasone inhaler 1 puff every 12 hours 4. I suspect he has chronic lung disease..........consider PFT's at some point......has many other priorities to take care of prior to this. 5. will ask respiratory to instruct him in proper use of inhaler and provide him with an aerochamber if they have one. May due better with advair inhaler asOP. will need to check to see if insurance will cover this. 6. suspect we are going to have to reinsert the Peña and he will need to follow up with urology. I will send the urologist a DC summary. Does not tolerate both Flomax and Proscar due to severe orthostasis and he has failed a few voiding trials. Likely will need a TURP at some point. This is also not high on the Priorty list at this time. Cardiac cath and TAVR will take precedence. Charges/Coding Visit Charges Inpatient E&M: 08818 [facility] Hosp 02/01/25 1212 <Electronically signed by Marie Patino DO> Marie Patino DO Cosign Signature (if applicable): CC: ~ Signed [facility] Work Phone: 1(820) 593-443907-10-2025 Telephone encounter Note* Telephone Encounter - Yue Estevez - 02/01/2025 2:05 PM EDT Spoke to patient's nurse at [facility] [phone] to advise of appt for hospital follow upwith Dr. Moat. Confirmed the date, time and location. Yue Estevez [facility]07-10-2025 Miscellaneous Notes* Telephone Encounter - Yue Estevez - 02/01/2025 2:05 PM EDT Spoke to patient's nurse at [facility] [phone] to advise of appt for hospital follow upwith Dr. Mota. Confirmed the date, time and location. Yue Estevez documented [facility] Progress note Author Marie Patino [facility] Note Date/Time January 31, 2025 11:58 am [facility] Medical Records Department [address] [place] [address] Progress Note 01/31/25 1035 MR#: [id number] Acct: [id number] Name: JOAO BARNETT Rep #:[id number] : 1945 79 From: Marie Patino DO PCP: DEANNA Franklin Status:ADM IN Location: [place] [address] Subjective Subjective Afebrile Weight is stable at approximately 155 pounds. Blood pressure over the past 48 hours has ranged from 110/49 to 145/68. Heart rate is within normal limits. Maintaining appropriate oxygen saturation on room air. Denies lightheadedness, orthopnea, CP, PND, no change in chronic cough, abd pain, calf pain. Has no ankle edema and denies calf pain. Good fluid intake. Stable ileostomy OP. Peña catheter was removed at 6 AM this morning which was 4-1/2 hours ago and hehas not urinated yet. Her blood sugar record was reviewed. Blood sugar was in the 80s yesterday at supper but he got 4 units of lispro extra at noon. Has not had to take Tramadol. Takes an occasional Tylenol......not even every day. Objective Data Objective Data Vital Signs: Vital Signs Temp Pulse Resp BP Pulse Ox O2 Del Method 98.8 F 82 16 130/76 H 96 Room Air 01/31/25 06:06 01/31/25 06:06 01/31/25 06:06 01/31/25 06:06 01/31/25 06:06 01/31/25 06:06 Oxygen Delivery Method Room Air Weight: 155 lb 3.287 oz Body Mass Index (BMI) 25.8 Intake & Output: Intake and Output for Last 24 Hours 01/29/25 01/30/25 01/31/25 23:59 23:59 23:59 Intake Total 1500 / 1500 2400 / 2400 530 / 530 Output Total 2049 / 2049 2350 / 2350 750 / 750 Balance -550 / -550 50 / 50 -220 / -220 Medical Nutrition Assessment Dietitian: Malnutrition Criteria Met Start: 01/12/25 12:44 Freq: Status: Active Protocol: Document 01/15/25 10:00 [facility] (Rec: 01/15/25 10:00 [facility] [id number]) Nutrition Malnutrition Evidence of Yes Malnutrition Exists Evidenced By Suboptimal Energy Intake (Severe),Weight Loss (Severe), Physical Changes (Moderate) Clinical Problem Acute Disease or Injury Related Malnutrition Etiology r/t acute illness and recent surgeries and suboptimal energy intake Signs/Symptoms as evidenced by po intake meeting <75% of estimated nutritional needs and 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 Patino- soft and bite sized Changes consistency Will continue Nepro CHO Steady tid w/ meals for additional abel/pro if consumed. Continue appetite stimulant as ordered Continue to follow and monitor for changes in pt nutritional status and make additional rec as indicated . Lab / Micro Data 01/30/25 06:13 01/30/25 06:13 Labs: Laboratory Results - last 24 hr 01/30/25 12:09: POC Glucose 205 H 01/30/25 17:17: POC Glucose 84 01/30/25 22:06: POC Glucose 247 H 01/31/25 06:27: POC Glucose 87 Micro: Microbiology 01/24/25 13:05 Mucosa - Nasopharyngeal Respiratory Panel (PCR) - Final 01/24/25 10:19 Nasal Secretion SARS-CoV-2 Antigen (Rapid) - Final 01/19/25 10:50 Stool Clostridioides difficile (PCR) - Final 01/19/25 10:50 Stool Enteric Bacteriology - Final 01/19/25 10:00 Stool Stool Lactoferrin - Final 01/19/25 10:50 Stool Stool Occult Blood (RYLEE) - Final Occult Blood Positive 01/11/25 21:20 Stool Stool Occult Blood (RYLEE) - Final Physical Exam Resp normal respiratory effort Resp Narrative: No conversational dyspnea. BS's in the Left base are mildly decreased. coarse crackles in both bases posteriorly.......chronic. Used to smoke. Scattered mild opening wheeze and occasional exp wheeze. Has some chronic cough...Used marisabel a smoker. Effort and Inspection: Negative for tachypneic Cardio regular rate, regular rhythm and no gallops Cardio Narrative: No ectopy GI normal to inspection, nondistended, normoactive bowel sounds, soft to palpation and non-tender Extremity no calf tenderness General Extremity: Negative for edema Assessment & Plan Assessment/Plan (1) Cough: QUALIFIERS: Cough type: acute Qualified Code(s): R05.1 - Acute cough (2) Debility: (3) History of right hemicolectomy: (4) History of ileostomy: (5) CKD (chronic kidney disease), stage IV: (6) Orthostatic hypotension: (7) Anemia: QUALIFIERS: Anemia type: unspecified type Qualified Code(s): D64.9 - Anemia, unspecified (8) Dysphagia, oropharyngeal: (9) Cognitive dysfunction: (10) Other severe protein-calorie malnutrition: (11) Cardiomyopathy: QUALIFIERS: Cardiomyopathy type: unspecified Qualified Code(s): I42.9 - Cardiomyopathy, unspecified (12) Severe aortic stenosis: (13) Urinary retention: (14) BPH (benign prostatic hyperplasia): QUALIFIERS: Lower urinary tract symptom presence: symptoms present Lower urinary tract symptom detail: urinary retention Qualified Code(s): N40.1- Benign prostatic hyperplasia with lower urinary tract symptoms; R33.8 - Other retention of urine (15) Essential (primary) hypertension: (16) History of diabetes mellitus: (17) Depression: QUALIFIERS: Depression Type: reactive depression Qualified Code(s): F32.9 - Major depressive disorder, single episode, unspecified (18) Heme positive stool: PLAN: Plan 1. Continue therapy 2. Try Albuterol aerosol 4X's daily WA for the next 48 hours to see if cough/wheezing improve........if it does will likely start and inhaler prior to DC 3. Tolerating current medications with no adverse SE's. No lightheadedness. Will double to Coreg dose to help with CM (35% EF). 4. HH, magnesium, renal profile on Wednesday 5. Hold the nighttime dose of glargine and continue to monitor blood sugars AC and at bedtime. 6. Discontinue sliding scale insulin 7. Voiding trial is in progress. Follow up: 1. Dr. Garcia 2. CArdiology 3. Dr. Wilson 4. urology 5. abd surgeon Charges/Coding Visit Charges Inpatient E&M: 87007 Subs Hosp L1 01/31/25 1128 <Electronically signed by Marie Patino DO> Marie Patino DO Cosigner Signature (if applicable): CC: ~ Signed ADDENDUM by Dr. Marie Patino DO on 01/31/25 at 1158 Addendum The children's counselor at [facility] that Everardo is to follow up with is Dr. Jack Mota. He will follow up with Dr. Garcia post [place] for primary care. Has urinated once.......PVR 112. Will continue to monitor PVR's 01/31/25 1158 <Electronically signed by Marie bosch DO> Date _ Marie Patino DO Cosigner Signature (if applicable): Date cc: ~* Signed [facility] Work Phone: 1(248) 882-311907-08-2025 Progress note Author Marie Patino [facility] Note Date/Time January 30, 2025 6:51p m [facility] Medical Records Department [address] [place] [address] Progress Note 01/30/25 0748 MR#: [id number] Acct: [id number] Name: JOAO BARNETT Rep #:[id number] 2 : 1945 79 From: Marie Patino DO PCP: DEANNA Franklin Status:ADM IN Location: [place] [address] Subjective Subjective Afebrile VSS - Maintaining appropriate oxygen saturation on RA Oral intake - FOOD good FLUIDS fair to good. Weight has been stable in the past few days. Stool output yesterday was 550 cc. Overnight he had 500. The blood sugar record was reviewed. Blood sugars are well-controlled with no hypoglycemia. Fasting blood sugar was 120 today. Discussed with nursing - no problems that need addressed Reviewed the THERAPY notes Medication list reviewed. All lab drawn this morning was personally reviewed. The white blood cell count is 5.7. Hemoglobin is stable at 8.9 and platelets are within normal limits. Sodium is 137 and the potassium is 4.6 today. Serum bicarb is normal. Creatinine is 1.93, down from 2.16 on 01/24/2025 and 01/27/2025. Calcium is normal at 9.2 and the phosphorus is normal today at 4.1. Magnesium is low at 1.4. Objective Data Objective Data Vital Signs: Vital Signs Temp Pulse Resp BP Pulse Ox O2 Del Method 98.1 F 86 16 145/68 H 95 Room Air 01/30/25 06:00 01/30/25 06:00 01/30/25 06:00 01/30/25 06:00 01/30/25 06:00 01/30/25 06:00 Oxygen Delivery Method Room Air Weight: 154 lb 15.759 oz Body Mass Index (BMI) 25.7 Intake & Output: Intake and Output for Last 24 Hours 01/28/25 01/29/25 01/30/25 23:59 23:59 23:59 Intake Total 2107 / 2107 1500 / 1500 Output Total 3300 / 3300 2049 / 2050 500 / 500 Balance -1193 / -1193 -550 / -550 -500 / -500 Medical Nutrition Assessment Dietitian: Malnutrition Criteria Met Start: 01/12/25 12:44 Freq: Status: Active Protocol: Document 01/15/25 10:00 [facility] (Rec: 01/15/25 10:00 [facility] [id number]) Nutrition Malnutrition Evidence of Yes Malnutrition Exists Evidenced By Suboptimal Energy Intake (Severe),Weight Loss (Severe), Physical Changes (Moderate) Clinical Problem Acute Disease or Injury Related Malnutrition Etiology r/t acute illness and recent surgeries and suboptimal energy intake Signs/Symptoms as evidenced by po intake meeting <75% of estimated nutritional needs and 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 Patino- soft and bite sized Changes consistency Will continue Nepro CHO Steady tid w/ meals for additional abel/pro if consumed. Continue appetite stimulant as ordered Continue to follow and monitor for changes in pt nutritional status and make additional rec as indicated . Lab / Micro Data 01/30/25 06:13 01/30/25 06:13 Labs: Laboratory Results - last 24 hr 01/29/25 10:58: POC Glucose 172 H 01/29/25 16:56: POC Glucose 177 H 01/29/25 21:09: POC Glucose 159 H 01/30/25 05:18: POC Glucose 120 H 01/30/25 06:13: WBC 5.7, RBC 2.99 L, Hgb 8.9 L, Hct 27.5 L, MCV 92.0, MCH 29.8, MCHC 32.4, RDW Std Deviation 56.1 H, RDW Coeff of Disha 16.5 H, Plt Count 370, MPV10.8, Sodium 137, Potassium 4.6, Chloride 105, Carbon Dioxide 21.6, Anion Gap 11, BUN 44 H, Creatinine 1.93 H, Estim Creat Clear Calc 27.44 L, Est GFR (MDRD) Non-Af 35 L, BUN/Creatinine Ratio 22.8 H, Glucose 134 H, Calcium 9.2, Phosphorus4.1, Magnesium 1.4 L Micro: Microbiology 01/24/25 13:05 Mucosa - Nasopharyngeal Respiratory Panel (PCR) - Final 01/24/25 10:19 Nasal Secretion SARS-CoV-2 Antigen (Rapid) - Final 01/19/25 10:50 Stool Clostridioides difficile (PCR) - Final 01/19/25 10:50 Stool Enteric Bacteriology - Final 01/19/25 10:00 Stool Stool Lactoferrin - Final 01/19/25 10:50 Stool Stool Occult Blood (RYLEE) - Final Occult Blood Positive 01/11/25 21:20 Stool Stool Occult Blood (RYLEE) - Final Physical Exam Const alert and no apparent distress General Appearance: cooperative Resp Resp Narrative: coarse crackles in both lungs about 1/3-1/[address] the posterior lung lucero. No wheezing. Not coughing. Denies PND and orthopnea. Not tachypneic, noconversational dyspnea and no labored breathing. Cardio regular rate, regular rhythm, no rub and no gallops Cardio Narrative: No change in the MM. GI normal to inspection, nondistended, normoactive bowel sounds, soft to palpation and non-tender GI Narrative: OP from the ileostomy is stable and he is able to stay hydrated. Extremity no calf tenderness General Extremity: Negative for edema Skin Skin Narrative: Today he is c/o pain at the tip of the penis. There is no DC and no redness of the urethral opening. I suspect the pain is is from traction on the catheter attimes. the redness and small amount of DC on the dorsal surface at the junctionbetween the shaft and glans has completley resolved and he is no longer c/o pain. Psych Psych Narrative: more upbeat today. Excited about going home. Appearance: appropriate Assessment & Plan Assessment/Plan (1) Cough: QUALIFIERS: Cough type: acute Qualified Code(s): R05.1 - Acute cough (2) Debility: (3) History of right hemicolectomy: (4) History of ileostomy: (5) CKD (chronic kidney disease), stage IV: (6) Orthostatic hypotension: (7) Anemia: QUALIFIERS: Anemia type: unspecified type Qualified Code(s): D64.9 - Anemia, unspecified (8) Dysphagia, oropharyngeal: (9) Cognitive dysfunction: (10) Other severe protein-calorie malnutrition: (11) Cardiomyopathy: QUALIFIERS: Cardiomyopathy type: unspecified Qualified Code(s): I42.9 - Cardiomyopathy, unspecified (12) Severe aortic stenosis: (13) Urinary retention: (14) BPH (benign prostatic hyperplasia): QUALIFIERS: Lower urinary tract symptom presence: symptoms present Lower urinary tract symptom detail: urinary retention Qualified Code(s): N40.1- Benign prostatic hyperplasia with lower urinary tract symptoms; R33.8 - Other retention of urine (15) Essential (primary) hypertension: (16) History of diabetes mellitus: (17) Depression: QUALIFIERS: Depression Type: reactive depression Qualified Code(s): F32.9 - Major depressive disorder, single episode, unspecified (18) Heme positive stool: PLAN: Plan 1. Continue therapy 2. Increase magnesium to 64 mg twice daily 3. Voiding trial tomorrow -remove Peña at 0600 in the AM. 4. Try some lidocaine at the urethral orifice to help with pain. * I spoke with his children's counselor at [facility]. I updated him on Everardo's progress. He will have his office schedule a follow up appt in a couple weeks to discuss proceeding with cardiac cath and possible TAVR. Will need to have nephrology on board when he has the cath since he will be getting dye. He will be following up with Dr. Wilson for nephrology. Charges/Coding Visit Charges Inpatient E&M: 89507 Subs Hosp L1 01/30/25 1851 <Electronically signed by Marie Patino DO> Marie Patino DO Cosigner Signature (if applicable): CC: ~ Signed [facility] Work Phone: 1(649) 444-418007-08-2025 Telephone encounter Note* Telephone Encounter - Jack Mota MD - 01/30/2025 1:16 PM EDT Spoke with Dr. Patino who gave me an update about his current clinical issues. She anticipates himbeing discharged later on this week. Will get him in to our office for follow-up where we can do further up titration of GDMT and plan for ischemic evaluation and further workup of his aortic stenosis. Jack Mota MD [facility] Work Phone: 1(395) 544-229807-08-2025 Miscellaneous Notes* Telephone Encounter - Jack Mota MD - 01/30/2025 1:16 PM EDT Spoke with Dr. Patino who gave me an update about his current clinical issues. She anticipates himbeing discharged later on this week. Will get him in to our office for follow-up where we can do further up titration of GDMT and plan for ischemic evaluation and further workup of his aortic stenosis. Jack Mota MD * Telephone Encounter - Beatrice Qureshi LPN - 01/30/2025 8:28 AM EDT Spoke to Corinne and she gave me cell number for Dr. Patino of [phone]. Beatrice Qureshi LPN * Telephone Encounter - Beatrice Qureshi LPN - 01/30/2025 8:27 AM EDT Images from the original note were not included. Jack Mota MD [facility] Clinical Pool2 minutes ago (8:24 AM) Can you see if there is a phone number I can talk to the doctor there? Jack Mota MD * Telephone Encounter - Martha Lin LPN - 01/29/2025 4:36 PM EDT [facility] acute rehab Corinne CHAHAL microbiology coordinator is a calling asking if Dr. Mota would would be willing to talk to Dr. Patino medical insurance coding specialist about patient. Patient was seen and consulted on by Dr. Mota on 12/03/2024 and 12/10/2024 while patient was in hospital visit from 12/02/2024. This is in regards to patient being possibly recommended for TAVR. Martha Lin LPN documented [facility] Telephone encounter Note * Telephone Encounter - Beatrice Qureshi LPN - 01/30/2025 8:28 AM EDT Spoke to Corinne and she gave me cell number for Dr. Patino of [phone]. Beatrice Qureshi LPN [facility]07-08-2025 Telephone encounter Note* Telephone Encounter - Beatrice Qureshi LPN - 01/30/2025 8:27 AM EDT Images from the original note were not included. Jack Mota MD [facility] Clinical Pool2 minutes ago (8:24 AM) Can you see if there is a phone number I can talk to the doctor there? Jack Mota MD [facility]07-07-2025 Progress note Author Marie Patino [facility] Note Date/Time January 29, 2025 3:33p m [facility] Medical Records Department [address] [place] [address] Progress Note 01/29/25 0830 MR#: [id number] Acct: [id number] Name: JOAO BARNETT Rep #:[id number] : 1945 79 From: Marie Patino DO PCP: ROBERTO FranklinC Status:ADM IN Location: [place] [address] Subjective Subjective Everardo was seen on team rounds today. His Alexia and his son Lauri were present in the room. All questions were answered to their satisfaction. Afebrile VSS -orthostatics were negative today. Maintaining appropriate oxygen saturation on RA Oral intake - FOOD good FLUIDS generally drinking between 1502 L daily. Weight today is 155 pounds which is down from 159 on 01/23/2025. Blood sugars are well-controlled with no hypoglycemia. Fasting blood sugar for the past 2 days has been in the 80s. Discussed with nursing - no problems that need addressed Reviewed the THERAPY notes Medication list reviewed. 10 he complains that he fatigues easily and then he has to sit down because he is a little short of breath. I explained to him that this is to be expected with a cardiomyopathy and severe aortic stenosis and he should just rest when heneeds to. He denies orthopnea and paroxysmal nocturnal dyspnea. He denies chest pain, palpitations, lightheadedness, nausea/vomiting/abdominal pain, calf pain. Swelling in his ankles is much improved today. Objective Data Objective Data Vital Signs: Vital Signs Temp Pulse Resp BP Pulse Ox O2 Del Method 98.8 F 95 16 155/77 H 96 Room Air 01/29/25 06:34 01/29/25 06:34 01/29/25 06:34 01/29/25 06:34 01/29/25 06:34 01/29/25 06:34 Oxygen Delivery Method Room Air Weight: 155 lb Body Mass Index (BMI) 25.7 Intake & Output: Intake and Output for Last 24 Hours 01/27/25 01/28/25 01/29/25 23:59 23:59 23:59 Intake Total 1530 / 1530 2107 / 2107 300 / 300 Output Total 4300 / 4300 3300 / 3300 1050 / 1050 Balance -2770 / -2770 -1193 / -1193 -750 / -750 Medical Nutrition Assessment Dietitian: Malnutrition Criteria Met Start: 01/12/25 12:44 Freq: Status: Active Protocol: Document 01/15/25 10:00 SLA (Rec: 01/15/25 10:00 [facility] [id number]) Nutrition Malnutrition Evidence of Yes Malnutrition Exists Evidenced By Suboptimal Energy Intake (Severe),Weight Loss (Severe), Physical Changes (Moderate) Clinical Problem Acute Disease or Injury Related Malnutrition Etiology r/t acute illness and recent surgeries and suboptimal energy intake Signs/Symptoms as evidenced by po intake meeting <75% of estimated nutritional needs and 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 Patino- soft and bite sized Changes consistency Will continue Nepro CHO Steady tid w/ meals for additional abel/pro if consumed. Continue appetite stimulant as ordered Continue to follow and monitor for changes in pt nutritional status and make additional rec as indicated . Lab / Micro Data 01/27/25 07:27 01/27/25 07:27 Labs: Laboratory Results - last 24 hr 01/28/25 11:31: POC Glucose 133 H 01/28/25 16:42: POC Glucose 181 H 01/28/25 21:20: POC Glucose 157 H 01/29/25 06:32: POC Glucose 87 Micro: Microbiology 01/24/25 13:05 Mucosa - Nasopharyngeal Respiratory Panel (PCR) - Final 01/24/25 10:19 Nasal Secretion SARS-CoV-2 Antigen (Rapid) - Final 01/19/25 10:50 Stool Clostridioides difficile (PCR) - Final 01/19/25 10:50 Stool Enteric Bacteriology - Final 01/19/25 10:00 Stool Stool Lactoferrin - Final 01/19/25 10:50 Stool Stool Occult Blood (RYLEE) - Final Occult Blood Positive 01/11/25 21:20 Stool Stool Occult Blood (RYLEE) - Final Physical Exam Const alert and no apparent distress General Appearance: cooperative Resp Resp Narrative: Coarse crackles in the bases but otherwise unchanged. Not tachypneic, no conversational dyspnea and no labored breathing. Cardio regular rate, regular rhythm, no rub and no gallops GI normal to inspection, nondistended, normoactive bowel sounds, soft to palpation and non-tender Extremity no calf tenderness General Extremity: Negative for edema Skin Skin Narrative: He is no longer c/o the pain on the dorsal penile shaft near the glans. The redness has resolved. Psych Psych Narrative: Seems a little down today and he tells me that he is feeling down. He is a little overwhelmed by everything that is going on.....stage 4 renal failure withincreased phos and K, CHF with 35% EF, severe (will need a TAVR), urine retention, Peña catheter, diet changes. Sleeping well at night. Tolerating Remeron 15 mg with no adverse side effects. Still sleeping well and eating well. always willing to do therapy. Appearance: appropriate Assessment & Plan Assessment/Plan (1) Cough: QUALIFIERS: Cough type: acute Qualified Code(s): R05.1 - Acute cough (2) Debility: (3) History of right hemicolectomy: (4) History of ileostomy: (5) CKD (chronic kidney disease), stage IV: (6) Orthostatic hypotension: (7) Anemia: QUALIFIERS: Anemia type: unspecified type Qualified Code(s): D64.9 - Anemia, unspecified (8) Dysphagia, oropharyngeal: (9) Cognitive dysfunction: (10) Other severe protein-calorie malnutrition: (11) Cardiomyopathy: QUALIFIERS: Cardiomyopathy type: unspecified Qualified Code(s): I42.9 - Cardiomyopathy, unspecified (12) Severe aortic stenosis: (13) Urinary retention: (14) BPH (benign prostatic hyperplasia): QUALIFIERS: Lower urinary tract symptom presence: symptoms present Lower urinary tract symptom detail: urinary retention Qualified Code(s): N40.1- Benign prostatic hyperplasia with lower urinary tract symptoms; R33.8 - Other retention of urine (15) Essential (primary) hypertension: (16) History of diabetes mellitus: (17) Depression: QUALIFIERS: Depression Type: reactive depression Qualified Code(s): F32.9 - Major depressive disorder, single episode, unspecified (18) Heme positive stool: (19) Candidiasis, intertrigo: PLAN: Plan 1. Continue therapy 2. Check orthostatics today 3. Renal profile and CBC in a.m. 4. Alexia will come in for family training. 5. Family will stay today for diet instruction by hospice physician. 6. Increase the Remeron to 22.5 mg Q HS 7. Try and find out who was going to see him about TAVR. I think he is strong enough to tolerate now. 8. Planning Dc home with [facility] on Wednesday. 9. Needs F/U with Dr. Wilson, CT surgery for TAVR, PCP, cardiology, urology (ifwe are unable to get the Peña out......does not tolerate Proscar and Flomax dueto orthostatic hypotension). IF he needs urologic surgery he would be too high risk to do at [facility]. Charges/Coding Visit Charges Inpatient E&M: 36853 Subs Hosp L2 01/29/25 1530 <Electronically signed by Marie Patino DO> Marie Patino DO Cosigner Signature (if applicable): CC: ~ Signed [facility] Work Phone: [phone]) 415-200707-07-2025 Telephone encounter Note* Telephone Encounter - Martha Lin LPN - 01/29/2025 4:36 PM EDT [facility] acute rehab Corinne CHAHAL microbiology coordinator is a calling asking if Dr. Mota would would be willing to talk to Dr. Patino medical insurance coding specialist about patient. Patient was seen and consulted on by Dr. Mota on 12/03/2024 and 12/10/2024 while patient was in hospital visit from 12/02/2024. This is in regards to patient being possibly recommended for TAVR. Martha Lin LPN [facility]07-04-2025 Progress note Author Marie Sementi [facility] Note Date/Time January 26, 2025 11:48 am [facility] Medical Records Department [address] [place] [address] Progress Note 01/25/25 0753 MR#: [id number] Acct: [id number] Name: JOAO BARNETT Rep #:[id number] : 1945 79 From: Marie Patino DO PCP: Trinity Coronado NP-C Status:ADM IN Location: [place] [address] Subjective Subjective Afebrile VSS - orthostatics are negative. He denies lightheadedness Maintaining appropriate oxygen saturation on RA Oral intake - FOOD good FLUIDS good. He had 2250 cc of urine out yesterday and 850 cc of stool. The blood sugar record was reviewed. Weight today is 157 pounds and 3 ounces which is down from 160 pounds and 11 ounces yesterday. Discussed with nursing - Having soreness at the tip of the penis per nursing. Reviewed the THERAPY notes Medication list reviewed. Denies orthopnea, paroxysmal nocturnal dyspnea, palpitations, chest pain, cough,nausea/vomiting/abdominal pain, calf pain. He is c/o pain in the penis.....it is localized to the dorsal side of the penis just proximal to the rim of the head. It hurts to touch. Objective Data Objective Data Vital Signs: Vital Signs Temp Pulse Resp BP Pulse Ox O2 Del Method 97.8 F 68 15 110/68 97 Room Air 01/25/25 05:50 01/25/25 05:50 01/25/25 05:50 01/25/25 05:50 01/25/25 05:50 01/25/25 05:50 Oxygen Delivery Method Room Air Weight: 157 lb 3.033 oz Body Mass Index (BMI) 26.2 Intake & Output: Intake and Output for Last 24 Hours 01/23/25 01/24/25 01/25/25 23:59 23:59 23:59 Intake Total 1270 / 1270 1460 / 1460 300 / 300 Output Total 1775 / 1775 3100 / 3100 1000 / 1000 Balance -505 / -505 -1640 / -1640 -700 / -700 Medical Nutrition Assessment Dietitian: Malnutrition Criteria Met Start: 01/12/25 12:44 Freq: Status: Active Protocol: Document 01/15/25 10:00 [facility] (Rec: 01/15/25 10:00 [facility] [id number]) Nutrition Malnutrition Evidence of Yes Malnutrition Exists Evidenced By Suboptimal Energy Intake (Severe),Weight Loss (Severe), Physical Changes (Moderate) Clinical Problem Acute Disease or Injury Related Malnutrition Etiology r/t acute illness and recent surgeries and suboptimal energy intake Signs/Symptoms as evidenced by po intake meeting <75% of estimated nutritional needs and 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 Patino- soft and bite sized Changes consistency Will continue Nepro CHO Steady tid w/ meals for additional abel/pro if consumed. Continue appetite stimulant as ordered Continue to follow and monitor for changes in pt nutritional status and make additional rec as indicated . Lab / Micro Data 01/24/25 05:08 01/24/25 05:08 Labs: Laboratory Results - last 24 hr 01/24/25 11:05: POC Glucose 187 H 01/24/25 15:50: POC Glucose 227 H 01/24/25 22:14: POC Glucose 77 01/25/25 06:12: POC Glucose 73 L Micro: Microbiology 01/24/25 13:05 Mucosa - Nasopharyngeal Respiratory Panel (PCR) - Final 01/24/25 10:19 Nasal Secretion SARS-CoV-2 Antigen (Rapid) - Final 01/19/25 10:50 Stool Clostridioides difficile (PCR) - Final 01/19/25 10:50 Stool Enteric Bacteriology - Final 01/19/25 10:00 Stool Stool Lactoferrin - Final 01/19/25 10:50 Stool Stool Occult Blood (RYLEE) - Final Occult Blood Positive 01/11/25 21:20 Stool Stool Occult Blood (RYLEE) - Final Radiography Diagnostic Testing: Radiology Impression Chest X-Ray 01/24/25 09:43 IMPRESSION: Mildly hyperexpanded lungs with chronic interstitial changes, no interval changesince the previous study Right-sided PICC line has been placed, tip is in the distal SVC Reading Location: [id number] Physical Exam Const alert, oriented x3 and no apparent distress Constitutional Narrative: /Down in bed with no complaints of shortness of breath. No orthopnea, no paroxysmal nocturnal dyspnea last night. General Appearance: cooperative Resp Resp Narrative: Coarse crackles in the bases unchanged over the past few days..........no fine crackles and no wheezing. No conversational dyspnea. Occasional cough......worse at night and when lying down. Not tachypneic. Cleared his throat only once when I was in the room.......no real cough....I was with him for 25 minutes. Cardio regular rate, regular rhythm, no rub and no gallops Cardio Narrative: No ectopy GI normal to inspection, nondistended, normoactive bowel sounds and soft to palpation GI Narrative: no guarding with palpation. He has some redness and a little moist white DC on the dorsal surface of the penis between the glans and the shaft. Appears to be a little fungal infection. NO redness of the urethral opening andno DC from the urethra. He is circumcised. The glans has no lesions. Extremity no calf tenderness Extremity Narrative: Very small amount of ankle edea, L>R. No pretibial edema. Increased edema at the end of the day. CRISTIAN hose are in place. Skin Rashes: no rashes Psych cooperative Psych Narrative: Making good eye contact with me and he is engaged in the conversation. Appearance: appropriate Attitude: No agitated Assessment & Plan Assessment/Plan (1) Cough: QUALIFIERS: Cough type: acute Qualified Code(s): R05.1 - Acute cough (2) Debility: (3) History of right hemicolectomy: (4) History of ileostomy: (5) CKD (chronic kidney disease), stage IV: (6) Orthostatic hypotension: (7) Anemia: QUALIFIERS: Anemia type: unspecified type Qualified Code(s): D64.9 - Anemia, unspecified (8) Dysphagia, oropharyngeal: (9) Cognitive dysfunction: (10) Other severe protein-calorie malnutrition: (11) Cardiomyopathy: QUALIFIERS: Cardiomyopathy type: unspecified Qualified Code(s): I42.9 - Cardiomyopathy, unspecified (12) Severe aortic stenosis: (13) Urinary retention: (14) BPH (benign prostatic hyperplasia): QUALIFIERS: Lower urinary tract symptom presence: symptoms present Lower urinary tract symptom detail: urinary retention Qualified Code(s): N40.1- Benign prostatic hyperplasia with lower urinary tract symptoms; R33.8 - Other retention of urine (15) Essential (primary) hypertension: (16) History of diabetes mellitus: (17) Depression: QUALIFIERS: Depression Type: reactive depression Qualified Code(s): F32.9 - Major depressive disorder, single episode, unspecified (18) Heme positive stool: (19) Candidiasis, intertrigo: PLAN: Plan 1. Continue therapy 2. Decrease glargine at at bedtime to 8 units. Decrease the lispro with supperto 6 units. Continue to monitor blood sugars AC and at bedtime. 3. Continue daily scale weights. 4. No Lasix needed today and the wt has decreased a few pounds with the previous doses of Lasix. Will keep Lasix PRN now for increase in weight, orthopnea and increasing ankle edema. 5. Miconazole twice daily x 5 days 6. Renal profile and HH on Wednesday Met with Everardo's family and answered their questions. We talked about CM, , CRF, etc. Recommended he follow up with IM doc at [place] because he is so complicated. 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 The troponin elevation was mild and thought to be due to to demand ischemia. Charges/Coding Visit Charges Inpatient E&M: 32631 Subs Hosp L1 01/26/25 1148 <Electronically signed by Marie Patino DO> Marie Patino DO Cosigner Signature (if applicable): CC: ~ Signed [facility] Work Phone: 1(765) 492-554007-03-2025 Telephone encounter Note* Telephone Encounter - Mandi Gloria - 01/25/2025 2:[address] [facility] called to schedule patients appointment- has cath and they previously tried a VT but it failed so he had cath reinserted on 01/16. Scheduled patient for a appointment to discuss retention and possible cath pull on 01/31 with a pvr in afternoon. Just sending as a fyi Pt is ambulatory as well. He will be discharged from their care before he comes in. Mandi Gloria [facility]07-03-2025 Miscellaneous Notes* Telephone Encounter - Juani Mandi - 01/25/2025 2:[address] [facility] called to schedule patients appointment- has cath and they previously tried a VT but it failed so he had cath reinserted on 01/16. Scheduled patient for a appointment to discuss retention and possible cath pull on 01/31 with a pvr in afternoon. Just sending as a fyi Pt is ambulatory as well. He will be discharged from their care before he comes in. Mandi Gloria [facility] Progress note Author Marie Patino [facility] Note Date/Time January 24, 2025 10:40 am [facility] Medical Records Department [address] [place] [address] Progress Note 01/24/25 0904 MR#: [id number] Acct: [id number] Name: JOAO BARNETT Rep #:[id number] : 1945 79 From: Marie Patino DO PCP: ROBERTO FranklinC Status:ADM IN Location: [place] [address] Subjective Subjective Afebrile VSS -orthostatics are negative today. Blood pressure is well-controlled. Heartrate is within normal limits. Maintaining appropriate oxygen saturation on RA Oral intake - FOOD good FLUIDS oral fluid intake is listed as 1270 yesterdaywhich is less than I would like it to be however he did have some increased edema of his legs and crackles in both lungs yesterday so we gave Lasix. The stool amount yesterday was 700 cc and urine output was 1075. Overnight he had 800 and urine in 250 in stool. Despite negative fluid balance yesterday his weight went up so question the validity of the weights and the I&O. Discussed with nursing - no problems that need addressed Reviewed the THERAPY notes Medication list reviewed. All lab from this morning was personally reviewed. The hemoglobin is 7.7 which is down from 8.2 on 01/21/2025. Sodium is 135 and the potassium today is 5.1. Serum bicarb is 18.9 and that is off bicarb tabs. Creatinine is 2.16 which is up from 1.88 on 01/21/2025. The BUN is 47. Phosphorus is mildly increased at 4.6. BNP is 18,082 He is not SOB at rest. Denies CP, palpitations, orthopnea and PND. He c/o somesoreness in his throat, rhinitis, dry cough. Tells me that he was on something for allergies in the past. Objective Data Objective Data Vital Signs: Vital Signs Temp Pulse Resp BP Pulse Ox O2 Del Method 97.6 F L 80 17 104/65 96 Room Air 01/24/25 06:00 01/24/25 06:00 01/24/25 06:00 01/24/25 06:00 01/24/25 06:00 01/24/25 06:00 Oxygen Delivery Method Room Air Weight: 160 lb 11.472 oz Body Mass Index (BMI) 26.7 Intake & Output: Intake and Output for Last 24 Hours 01/22/25 01/23/25 01/24/25 23:59 23:59 23:59 Intake Total 1620 / 1620 1270 / 1270 360 / 360 Output Total 2750 / 2750 1775 / 1775 1050 / 1050 Balance -1130 / -1130 -505 / -505 -690 / -690 Medical Nutrition Assessment Dietitian: Malnutrition Criteria Met Start: 01/12/25 12:44 Freq: Status: Active Protocol: Document 01/15/25 10:00 [facility] (Rec: 01/15/25 10:00 [facility] [id number]) Nutrition Malnutrition Evidence of Yes Malnutrition Exists Evidenced By Suboptimal Energy Intake (Severe),Weight Loss (Severe), Physical Changes (Moderate) Clinical Problem Acute Disease or Injury Related Malnutrition Etiology r/t acute illness and recent surgeries and suboptimal energy intake Signs/Symptoms as evidenced by po intake meeting <75% of estimated nutritional needs and 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 Patino- soft and bite sized Changes consistency Will continue Nepro CHO Steady tid w/ meals for additional abel/pro if consumed. Continue appetite stimulant as ordered Continue to follow and monitor for changes in pt nutritional status and make additional rec as indicated . Lab / Micro Data 01/24/25 05:08 01/24/25 05:08 Labs: Laboratory Results - last 24 hr 01/19/25 10:50: Stool Calprotectin 34 01/23/25 11:00: POC Glucose 136 H 01/23/25 16:09: POC Glucose 168 H 01/23/25 21:29: POC Glucose 96 01/24/25 05:08: Hgb 7.7 L, Hct 24.1 L, Sodium 135, Potassium 5.1, Chloride 105, Carbon Dioxide 18.9 L, Anion Gap 12, BUN 47 H, Creatinine 2.16 H, Estim Creat Clear Calc 24.52 L, Est GFR (MDRD) Non-Af 31 L, BUN/Creatinine Ratio 21.8 H, Glucose 104 H, Calcium 8.9, Phosphorus 4.6 H, [place] [address] H 01/24/25 06:11: POC Glucose 97 Micro: Microbiology 01/19/25 10:50 Stool Clostridioides difficile (PCR) - Final 01/19/25 10:50 Stool Enteric Bacteriology - Final 01/19/25 10:00 Stool Stool Lactoferrin - Final 01/19/25 10:50 Stool Stool Occult Blood (RYLEE) - Final Occult Blood Positive 01/11/25 21:20 Stool Stool Occult Blood (RYLEE) - Final Physical Exam Const alert, oriented x3 and no apparent distress General Appearance: cooperative Resp Resp Narrative: Coarse crackles in both bases that do not clear after several deep breaths. Chest x-ray is chronic increased interstitial markings in the bases likely secondary to some scarring. No wheezing. No conversational dyspnea. Not tachypneic. Denies shortness of breath at rest. Has some shortness of breath with exertion, especially stair climbing. Good air exchange. Normal respiratory rate at rest. Denies orthopnea and paroxysmal nocturnal dyspnea. Cardio regular rate, regular rhythm and no rub GI normal to inspection, nondistended, normoactive bowel sounds, soft to palpation and non-tender Extremity Extremity Narrative: Less edema in the ankles today. No significant pretibial edema. No calf tenderness. No pitting edema in the flanks. Skin Rashes: no rashes Wound Narrative: Denies pruritus Neuro CN's II-XII intact bilaterally and no focal motor deficits Speech: speech normal Psych cooperative and affect normal Psych Narrative: Good eye contact. sleeping well at night. Good appetite. interacting with staff well and very outgoing. Appearance: appropriate Assessment & Plan Assessment/Plan (1) Cough: QUALIFIERS: Cough type: acute Qualified Code(s): R05.1 - Acute cough (2) Debility: (3) History of right hemicolectomy: (4) History of ileostomy: (5) History of partial colectomy: (6) Postoperative abscess: (7) H/O drainage of abscess: (8) Acute renal failure superimposed on stage 4 chronic kidney disease: QUALIFIERS: Acute renal failure type: unspecified Qualified Code(s): N17.9 - Acute kidney failure, unspecified; N18.4 - Chronic kidney disease, stage 4 (severe) (9) CKD (chronic kidney disease), stage IV: (10) Orthostatic hypotension: (11) Anemia: QUALIFIERS: Anemia type: unspecified type Qualified Code(s): D64.9 - Anemia, unspecified (12) Dysphagia, oropharyngeal: (13) Cognitive dysfunction: (14) Other severe protein-calorie malnutrition: (15) Hypomagnesemia: (16) Myocardial infarction due to demand ischemia: (17) Cardiomyopathy: QUALIFIERS: Cardiomyopathy type: unspecified Qualified Code(s): I42.9 - Cardiomyopathy, unspecified (18) Severe aortic stenosis: (19) Urinary retention: (20) BPH (benign prostatic hyperplasia): QUALIFIERS: Lower urinary tract symptom presence: symptoms present Lower urinary tract symptom detail: urinary retention Qualified Code(s): N40.1- Benign prostatic hyperplasia with lower urinary tract symptoms; R33.8 - Other retention of urine (21) Essential (primary) hypertension: (22) History of diabetes mellitus: (23) Depression: QUALIFIERS: Depression Type: reactive depression Qualified Code(s): F32.9 - Major depressive disorder, single episode, unspecified (24) Heme positive stool: PLAN: Plan 1. Continue therapy 2. Lasix 40 mg p.o. today. Now that the stool output is better controlled may need to start a daily dose of Lasix. He has severe and his last ECHO showed an EF of 35%. Lasix will also help to manage the Hyperkalemia. Continue K restricted diet. Will need to follow up with nephrology following DC from rehab. 3. I am good with the current stool output........no change to the meds to treat the high ileostomy OP...continue to monitor. 4. Only scale weights going forward.......no more bed weights.....I do not feelthey are as accurate as scale weights. Continue I&O. 5. Will need follow up with cardiology post DC from rehab 6. Resume Flomax 0.4 mg daily. If he tolerates this we will do a voiding trial in 5 to 7 days. 7. Add phosphorus restriction to the current diet 8. Start calcium acetate 667 mg 3 times daily with meals. 9. Recheck a renal profile and HH on Wednesday 10. I suspect the drop in HGB is due to volume overload and not ongoing blood loss. No need for transfusion at this time. 11. Start Atrovent nasal spray 2 sprays each nostril twice daily 12. Check a respiratory panel, COVID today. Charges/Coding Visit Charges Inpatient E&M: 64424 Subs Hosp L2 01/24/25 1040 <Electronically signed by Marie Patino DO> Marie Patino DO Cosigner Signature (if applicable): CC: ~ Signed [facility] Work Phone: 1(952) 484-345907-02-2025 Radiology Diagnostic study [facility]07-01-2025 Progress note Author [facility] Note Date/Time January 23, 2025 4:35p m [facility] Medical Records Department [address] [place] [address] Progress Note 01/23/25 0945 MR#: [id number] Acct: [id number] Name: JOAO BARNETT Rep #:[id number] : 1945 79 From: Marie Patino DO PCP: Trinity Coronado NP-C Status:ADM IN Location: [id number] Subjective Subjective Afebrile VSS -denies lightheadedness Maintaining appropriate oxygen saturation on RA Oral intake - FOOD good FLUIDS fluid balance yesterday was reported is -1130. He had 1100 cc of stool. Even though he seen negative fluid balance almost every day his weight is up to 159 pounds and he has swelling in his ankles today. The blood sugar record was reviewed. Blood sugars are all under 200 recently with no hypoglycemia. Discussed with nursing - no problems that need addressed Reviewed the THERAPY notes Medication list reviewed. C/O a tickle in his throat. Has some localized wheezing only over the trachea. He has some DUMONT today with stair climbing. Denies chest pain, palpitations, nausea/vomiting/abdominal pain, calf pain and lightheadedness. Objective Data Objective Data Vital Signs: Vital Signs Temp Pulse Resp BP Pulse Ox O2 Del Method 98.1 F 82 20 H 126/62 H 96 Room Air 01/23/25 06:30 01/23/25 06:30 01/23/25 06:30 01/23/25 06:30 01/23/25 06:30 01/23/25 06:30 Oxygen Delivery Method Room Air Weight: 159 lb Body Mass Index (BMI) 26.4 Intake & Output: Intake and Output for Last 24 Hours 01/21/25 01/22/25 01/23/25 23:59 23:59 23:59 Intake Total 690 / 690 1620 / 1620 410 / 410 Output Total 3590 / 3590 2750 / 2750 300 / 300 Balance -2900 / -2900 -1130 / -1130 110 / 110 Medical Nutrition Assessment Dietitian: Malnutrition Criteria Met Start: 01/12/25 12:44 Freq: Status: Active Protocol: Document 01/15/25 10:00 [facility] (Rec: 01/15/25 10:00 [facility] [id number]) Nutrition Malnutrition Evidence of Yes Malnutrition Exists Evidenced By Suboptimal Energy Intake (Severe),Weight Loss (Severe), Physical Changes (Moderate) Clinical Problem Acute Disease or Injury Related Malnutrition Etiology r/t acute illness and recent surgeries and suboptimal energy intake Signs/Symptoms as evidenced by po intake meeting <75% of estimated nutritional needs and 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 Patino- soft and bite sized Changes consistency Will continue Nepro CHO Steady tid w/ meals for additional abel/pro if consumed. Continue appetite stimulant as ordered Continue to follow and monitor for changes in pt nutritional status and make additional rec as indicated . Lab / Micro Data 01/21/25 04:35 01/21/25 04:35 Labs: Laboratory Results - last 24 hr 01/22/25 11:33: POC Glucose 119 H 01/22/25 16:38: POC Glucose 163 H 01/22/25 21:00: POC Glucose 193 H 01/23/25 06:30: POC Glucose 118 H Micro: Microbiology 01/19/25 10:50 Stool Clostridioides difficile (PCR) - Final 01/19/25 10:50 Stool Enteric Bacteriology - Final 01/19/25 10:00 Stool Stool Lactoferrin - Final 01/19/25 10:50 Stool Stool Occult Blood (RYLEE) - Final Occult Blood Positive 01/11/25 21:20 Stool Stool Occult Blood (RYLEE) - Final Physical Exam Const alert, oriented x3 and no apparent distress Constitutional Narrative: Lying in bed when I examined him. Head of the bed is at approximately 30 degrees and he is not tachypneic or complaining of shortness of breath. Resp Resp Narrative: He has bibasilar crackles. No wheezing. Not tachypneic. No conversational dyspnea. Cardio regular rate, regular rhythm, no rub and no gallops GI normal to inspection, nondistended, normoactive bowel sounds and soft to palpation GI Narrative: No guarding with palpation Extremity no calf tenderness Extremity Narrative: He has pitting edema of the ankles today which is new. Skin Rashes: no rashes Assessment & Plan Assessment/Plan (1) Debility: (2) History of right hemicolectomy: (3) History of ileostomy: (4) History of partial colectomy: (5) Postoperative abscess: (6) H/O drainage of abscess: (7) Acute renal failure superimposed on stage 4 chronic kidney disease: QUALIFIERS: Acute renal failure type: unspecified Qualified Code(s): N17.9 - Acute kidney failure, unspecified; N18.4 - Chronic kidney disease, stage 4 (severe) (8) CKD (chronic kidney disease), stage IV: (9) Orthostatic hypotension: (10) Anemia: QUALIFIERS: Anemia type: unspecified type Qualified Code(s): D64.9 - Anemia, unspecified (11) Dysphagia, oropharyngeal: (12) Cognitive dysfunction: (13) Other severe protein-calorie malnutrition: (14) Hypomagnesemia: (15) Myocardial infarction due to demand ischemia: (16) Cardiomyopathy: QUALIFIERS: Cardiomyopathy type: unspecified Qualified Code(s): I42.9 - Cardiomyopathy, unspecified (17) Severe aortic stenosis: (18) Urinary retention: (19) BPH (benign prostatic hyperplasia): QUALIFIERS: Lower urinary tract symptom presence: symptoms present Lower urinary tract symptom detail: urinary retention Qualified Code(s): N40.1- Benign prostatic hyperplasia with lower urinary tract symptoms; R33.8 - Other retention of urine (20) Essential (primary) hypertension: (21) History of diabetes mellitus: (22) Depression: QUALIFIERS: Depression Type: reactive depression Qualified Code(s): F32.9 - Major depressive disorder, single episode, unspecified (23) Heme positive stool: PLAN: Plan 1. Continue therapy 2. Add a BNP to the lab being drawn tomorrow 3. Lasix 40 mg p.o. today. Continue with daily weights and intake and output. If he is still SOB tomorrow will order a PA and lat CXR Charges/Coding Visit Charges Inpatient E&M: 40313 Subs Hosp L1 01/23/25 1635 <Electronically signed by Marie Patino DO> Marie Patino DO Cosigner Signature (if applicable): CC: ~ Signed [facility] Work Phone: 1(727) 726-518107-01-2025 Progress note Author [facility] Note Date/Time January 23, 2025 4:26p m [facility] Medical Records Department [address] [place] [address] Progress Note 01/22/25 0802 MR#: [id number] Acct: [id number] Name: JOAO BARNETT Rep #:[id number] : 1945 79 From: Marie Patino DO PCP: ROBERTO FranklinC Status:ADM IN Location: [place] [address]1 Subjective Subjective Everardo was seen on team rounds today. Afebrile VSS -blood pressure is well-controlled and the heart rate is within normal limits. Heart rate has come down with better hydration. Orthostatics are negative today. Maintaining appropriate oxygen saturation on RA Oral intake - FOOD good FLUIDS not being adequately reported by nursing overthe weekend. Wt has increased 2 and 1/2 lbs since Wednesday so I suspect he has had good fluid intake. Stool output yesterday was recorded as 1450 and he had 1915 in urine. Only 690 intake was reported. Blood sugar record was reviewed. For the most part blood sugars are controlled. His blood sugars are somewhat labile....occasional BS 300 but, most in good control. Discussed with nursing - no problems that need addressed Reviewed the THERAPY notes Medication list reviewed. Has not had to take any tramadol for pain. Lab from yesterday was personally reviewed. Hemoglobin stable at 8.2. White blood cell count and platelets are within normal limits. White blood cell differential shows 16.1% eosinophils. The absolute neutrophil count is 1248. Sodium is 133 and the potassium is 4.8 and stable. Serum bicarb is 18 despite sodium bicarb tabs 4 times daily. The BUN is 41 with a creatinine of 1.88 whichis stable and actually good for him. Magnesium is 1.6 despite supplementation. C. difficile, fecal leukocytes and enteric pathogen panel were negative. Stool calprotectin is still pending. Denies lightheadedness, pruritus, cephalgia, chest pain, shortness of breath, cough, palpitations, nausea/vomiting/abdominal pain and calf pain. Tells me he is sleeping well at night. He is having a little back pain this morning when hegot out of bed. Objective Data Objective Data Vital Signs: Vital Signs Temp Pulse Resp BP Pulse Ox O2 Del Method 98.3 F 77 16 118/58 L 99 Room Air 01/22/25 05:08 01/22/25 05:08 01/22/25 05:08 01/22/25 05:08 01/21/25 16:50 01/22/25 05:08 Oxygen Delivery Method Room Air Weight: 155 lb Body Mass Index (BMI) 25.7 Intake & Output: Intake and Output for Last 24 Hours 01/20/25 01/21/25 01/22/25 23:59 23:59 23:59 Intake Total 3080 / 3080 690 / 690 Output Total 3960 / 3960 3590 / 3590 900 / 900 Balance -880 / -880 -2900 / -2900 -900 / -900 Medical Nutrition Assessment Dietitian: Malnutrition Criteria Met Start: 01/12/25 12:44 Freq: Status: Active Protocol: Document 01/15/25 10:00 [facility] (Rec: 01/15/25 10:00 [facility] [id number]) Nutrition Malnutrition Evidence of Yes Malnutrition Exists Evidenced By Suboptimal Energy Intake (Severe),Weight Loss (Severe), Physical Changes (Moderate) Clinical Problem Acute Disease or Injury Related Malnutrition Etiology r/t acute illness and recent surgeries and suboptimal energy intake Signs/Symptoms as evidenced by po intake meeting <75% of estimated nutritional needs and 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 Patino- soft and bite sized Changes consistency Will continue Nepro CHO Steady tid w/ meals for additional abel/pro if consumed. Continue appetite stimulant as ordered Continue to follow and monitor for changes in pt nutritional status and make additional rec as indicated . Lab / Micro Data 01/21/25 04:35 01/21/25 04:35 Labs: Laboratory Results - last 24 hr 01/21/25 11:24: POC Glucose 206 H 01/21/25 16:52: POC Glucose 301 H 01/21/25 22:02: POC Glucose 127 H 01/22/25 05:42: POC Glucose 129 H Micro: Microbiology 01/19/25 10:50 Stool Clostridioides difficile (PCR) - Final 01/19/25 10:50 Stool Enteric Bacteriology - Final 01/19/25 10:00 Stool Stool Lactoferrin - Final 01/19/25 10:50 Stool Stool Occult Blood (RYLEE) - Final Occult Blood Positive 01/11/25 21:20 Stool Stool Occult Blood (RYLEE) - Final Physical Exam Const alert, oriented x3 and no apparent distress Constitutional Narrative: Seems a little sleepy today. General Appearance: cooperative HEENT Mouth: dry mucous membranes Resp normal respiratory effort and clear to auscultation bilaterally Resp Narrative: No cough. Effort and Inspection: Negative for tachypneic or labored Cardio regular rate, regular rhythm, no rub and no gallops Cardio Narrative: No ectopy GI GI Narrative: stool is pasty today and thickening up. It is brown. HGB is stable. minimal gas in the bag. Extremity no calf tenderness General Extremity: Negative for edema Skin Rashes: no rashes Psych Psych Narrative: calm, good eye contact, talkative, sleeping better at night and has a good appetite. Seems a little tired today or down. Appearance: appropriate Assessment & Plan Assessment/Plan (1) Debility: (2) History of right hemicolectomy: (3) History of ileostomy: (4) History of partial colectomy: (5) Postoperative abscess: (6) H/O drainage of abscess: (7) Acute renal failure superimposed on stage 4 chronic kidney disease: QUALIFIERS: Acute renal failure type: unspecified Qualified Code(s): N17.9 - Acute kidney failure, unspecified; N18.4 - Chronic kidney disease, stage 4 (severe) (8) CKD (chronic kidney disease), stage IV: (9) Orthostatic hypotension: (10) Anemia: QUALIFIERS: Anemia type: unspecified type Qualified Code(s): D64.9 - Anemia, unspecified (11) Dysphagia, oropharyngeal: (12) Cognitive dysfunction: (13) Other severe protein-calorie malnutrition: (14) Hypomagnesemia: (15) Myocardial infarction due to demand ischemia: (16) Cardiomyopathy: QUALIFIERS: Cardiomyopathy type: unspecified Qualified Code(s): I42.9 - Cardiomyopathy, unspecified (17) Severe aortic stenosis: (18) Urinary retention: (19) BPH (benign prostatic hyperplasia): QUALIFIERS: Lower urinary tract symptom presence: symptoms present Lower urinary tract symptom detail: urinary retention Qualified Code(s): N40.1- Benign prostatic hyperplasia with lower urinary tract symptoms; R33.8 - Other retention of urine (20) Essential (primary) hypertension: (21) History of diabetes mellitus: (22) Depression: QUALIFIERS: Depression Type: reactive depression Qualified Code(s): F32.9 - Major depressive disorder, single episode, unspecified (23) Heme positive stool: PLAN: Plan 1. Continue therapy 2. Discontinue the Proscar. Check orthostatics today. 3. Increase the Imodium to 6 mg every 6 hours 4. Hold bicarb tabs......the sodium may be pulling water into the stool 5. Recheck renal profile/HH on Wednesday 6. If he continues to have large volume of stool will consider adding Lomotil or Codeine. 7. He has increased eosinophils but, no rash and no pruritus. The absolute eosinophil count is less than 1500. No tx necessary at this time. Charges/Coding Visit Charges Inpatient E&M: 95346 Subs Hosp L2 01/23/25 3968 <Electronically signed by Marie Patino DO> Marie Patino DO Cosigner Signature (if applicable): CC: ~ Signed [facility] Work Phone: 1(197) [phone] Progress note Author Marie Patino [facility] Note Date/Time January 20, 2025 12:0 7pm [facility] Medical Records Department [address] [place] [address] Progress Note 01/19/25922 MR#: [id number] Acct: [id number] Name: JOAO BARNETT Rep #:[id number] : 1945 79 From: Marie Patino DO PCP: ROBERTO FranklinC Status:ADM IN Location: [place] [address] Subjective Subjective Afebrile Blood pressure is 135/63 today with a heart rate of 87. Orthostatics yesterday were negative. Maintaining appropriate oxygen saturation on room air. The blood sugar record was reviewed. All blood sugars yesterday were under 180 with no hypoglycemia. Eating 75 to 100% of all his meals. Fluid balance yesterday was -965. Overnight he was -650. He had 1950 and urineoutput yesterday and 1175 out in stool. Weight today is 152 pounds and 9 ounces which is down approximately 1/2 pounds since yesterday. GI note was reviewed and much appreciated. Stool studies ordered. Add no caffeine to diet and no SF drinks. All lab from today was personally reviewed. HGB is 8.1 today? down from 9.8 oon 01/16 but, he is better hydrated. Sodium is 135 and the potassium is 4.8 today. Serum bicarb is 17.9, up from 16.5 on 01/17/2025. BUN is 48, down from 53 on 01/17/2025 and his creatinine is 1.72 which is down from 1.91 on 01/17/2025. Phosphorus is normal. Did not he denies lightheadedness, cephalgia, palpitations, chest pain, shortness of breath, cough, abdominal pain and calf pain Objective Data Objective Data Vital Signs: Vital Signs Temp Pulse Resp BP Pulse Ox O2 Del Method 98.1 F 87 16 135/63 H 95 Room Air 01/19/25 06:00 01/19/25 06:00 01/19/25 06:00 01/19/25 06:00 01/19/25 06:00 01/19/25 06:00 Oxygen Delivery Method Room Air Weight: 152 lb 8.958 oz Body Mass Index (BMI) 25.4 Intake & Output: Intake and Output for Last 24 Hours 01/17/25 01/18/25 01/19/25 23:59 23:59 23:59 Intake Total 2980 / 2980 2160 / 2160 Output Total 3100 / 3100 3125 / 3125 650 / 650 Balance -120 / -120 -965 / -965 -650 / -650 Medical Nutrition Assessment Dietitian: Malnutrition Criteria Met Start: 01/12/25 12:44 Freq: Status: Active Protocol: Document 01/15/25 10:00 [facility] (Rec: 01/15/25 10:00 [facility] [id number]) Nutrition Malnutrition Evidence of Yes Malnutrition Exists Evidenced By Suboptimal Energy Intake (Severe),Weight Loss (Severe), Physical Changes (Moderate) Clinical Problem Acute Disease or Injury Related Malnutrition Etiology r/t acute illness and recent surgeries and suboptimal energy intake Signs/Symptoms as evidenced by po intake meeting <75% of estimated nutritional needs and 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 Patino- soft and bite sized Changes consistency Will continue Nepro CHO Steady tid w/ meals for additional abel/pro if consumed. Continue appetite stimulant as ordered Continue to follow and monitor for changes in pt nutritional status and make additional rec as indicated . Lab / Micro Data 01/19/25 06:53 01/19/25 06:53 Labs: Laboratory Results - last 24 hr 01/18/25 11:32: POC Glucose 167 H 01/18/25 16:33: POC Glucose 172 H 01/18/25 21:33: POC Glucose 170 H 01/19/25 05:39: POC Glucose 151 H 01/19/25 06:53: Hgb 8.1 L, Hct 24.3 L, Sodium 135, Potassium 4.8, Chloride 107, Carbon Dioxide 17.9 L, Anion Gap 10, BUN 48 H, Creatinine 1.72 H, Estim Creat Clear Calc 30.79 L, Est GFR (MDRD) Non-Af 40 L, BUN/Creatinine Ratio 27.6 H, Glucose 144 H, Calcium 8.9, Phosphorus 4.2, Albumin 2.8 L Micro: Microbiology 01/11/25 21:20 Stool Stool Occult Blood (RYLEE) - Final Physical Exam Const alert and oriented x3 Constitutional Narrative: Sitting in the recliner at the bedside. Very alert and pleasant. General Appearance: cooperative HEENT Mouth: dry mucous membranes Resp normal respiratory effort and clear to auscultation bilaterally Resp Narrative: No cough. Effort and Inspection: Negative for tachypneic or labored Cardio regular rate, regular rhythm, no rub and no gallops Cardio Narrative: No ectopy GI GI Narrative: Less gas since the simethicone was added and the stool is now more gel like thanliquid. Decreased stool amount. Stool appears to be a light brown color. No visible blood. Stoma looks good. Extremity no calf tenderness Extremity Narrative: Since the Cipro was discontinued he is no longer c/o R ankle pain. General Extremity: Negative for edema Skin Rashes: no rashes Psych Psych Narrative: calm, good eye contact, talkative, sleeping better at night and has a good appetite. Appearance: appropriate Assessment & Plan Assessment/Plan (1) Debility: (2) History of right hemicolectomy: (3) History of ileostomy: (4) History of partial colectomy: (5) Postoperative abscess: (6) H/O drainage of abscess: (7) Acute renal failure superimposed on stage 4 chronic kidney disease: QUALIFIERS: Acute renal failure type: unspecified Qualified Code(s): N17.9 - Acute kidney failure, unspecified; N18.4 - Chronic kidney disease, stage 4 (severe) (8) CKD (chronic kidney disease), stage IV: (9) Orthostatic hypotension: (10) Anemia: QUALIFIERS: Anemia type: unspecified type Qualified Code(s): D64.9 - Anemia, unspecified (11) Dysphagia, oropharyngeal: (12) Cognitive dysfunction: (13) Other severe protein-calorie malnutrition: (14) Hypomagnesemia: (15) Myocardial infarction due to demand ischemia: (16) Cardiomyopathy: QUALIFIERS: Cardiomyopathy type: unspecified Qualified Code(s): I42.9 - Cardiomyopathy, unspecified (17) Severe aortic stenosis: (18) Urinary retention: (19) BPH (benign prostatic hyperplasia): QUALIFIERS: Lower urinary tract symptom presence: symptoms present Lower urinary tract symptom detail: urinary retention Qualified Code(s): N40.1- Benign prostatic hyperplasia with lower urinary tract symptoms; R33.8 - Other retention of urine (20) Essential (primary) hypertension: (21) History of diabetes mellitus: (22) Depression: QUALIFIERS: Depression Type: reactive depression Qualified Code(s): F32.9 - Major depressive disorder, single episode, unspecified (23) Heme positive stool: PLAN: Plan 1. Continue therapy 2. Hemoccult stool, C. difficile, stool lactoferrin, enteric pathogen panel andstool calprotectin 3. Change the Imodium to 6 mg every 8 hours 4. Add a caffeine restriction and no sugar-free drinks to the current diet 5. Increased bicarb tabs to 4 X's a day 6. Glargine was increased to 16 units this AM........continue to monitor ACHS sugars. No adjustments to the Lispro today........if he continues to need coverage with SSI throughout the day will increase the scheduled Lispro with meals. 7. BMP, magnesium and CBC on Wednesday. Charges/Coding Visit Charges Inpatient E&M: 24794 Subs Hosp L2 01/20/25 1207 <Electronically signed by Marie Patino DO> Marie Patino DO Cosigner Signature (if applicable): CC: ~ Signed [facility] Work Phone: [phone]) [phone] [facility] Note Date/Time January 19, 2025 9:23 am [facility] Medical Records Department [address] [place] [address] Progress Note 01/18/25 0852 MR#: [id number] Acct: [id number] Name: JOAO BARNETT Rep #:[id number] : 1945 79 From: Marie Patino DO PCP: DEANNA Franklin Status:ADM IN Location: [place] [address] Subjective Subjective Afebrile VSS - Maintaining appropriate oxygen saturation on RA Oral intake - FOOD very good FLUIDS fluid intake yesterday was 2980 but he had 3100 out for a balance of -120. 2400 of the output was urine and he had 700 cc stool. Overnight he was -495. Blood sugar record reviewed. Discussed with nursing - no problems that need addressed Reviewed the THERAPY notes Medication list reviewed. Everardo tells me that he is less Lightheaded today. He was able to do his therapyyesterday despite being lightheaded. He also did therapy today......had to sit down once when lightheaded and it resolved. Denies chest pain, cough, shortnessof breath, palpitations, nausea/vomiting/abdominal pain, suprapubic pain and calf tenderness. With the addition of the psyllium husk The stool has decreasedand now is more like a gel. Objective Data Objective Data Vital Signs: Vital Signs Temp Pulse Resp BP Pulse Ox O2 Del Method 98.4 F 82 16 138/63 H 96 Room Air 01/18/25 06:00 01/18/25 06:00 01/18/25 06:00 01/18/25 06:00 01/18/25 06:00 01/18/25 06:00 Oxygen Delivery Method Room Air Weight: 153 lb 5 oz Body Mass Index (BMI) 25.4 Intake & Output: Intake and Output for Last 24 Hours 01/16/25 01/17/25 01/18/25 23:59 23:59 23:59 Intake Total 1420 / 1420 2980 / 2980 480 / 480 Output Total 2850 / 2850 3100 / 3100 975 / 975 Balance -1430 / -1430 -120 / -120 -495 / -495 Medical Nutrition Assessment Dietitian: Malnutrition Criteria Met Start: 01/12/25 12:44 Freq: Status: Active Protocol: Document 01/15/25 10:00 [facility] (Rec: 01/15/25 10:00 [facility] [id number]) Nutrition Malnutrition Evidence of Yes Malnutrition Exists Evidenced By Suboptimal Energy Intake (Severe),Weight Loss (Severe), Physical Changes (Moderate) Clinical Problem Acute Disease or Injury Related Malnutrition Etiology r/t acute illness and recent surgeries and suboptimal energy intake Signs/Symptoms as evidenced by po intake meeting <75% of estimated nutritional needs and 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 Patino- soft and bite sized Changes consistency Will continue Nepro CHO Steady tid w/ meals for additional abel/pro if consumed. Continue appetite stimulant as ordered Continue to follow and monitor for changes in pt nutritional status and make additional rec as indicated . Lab / Micro Data 01/19/25 06:53 01/19/25 06:53 Labs: Laboratory Results - last 24 hr 01/17/25 11:04: POC Glucose 164 H 01/17/25 15:58: POC Glucose 194 H 01/17/25 19:51: POC Glucose 300 H 01/18/25 06:04: POC Glucose 161 H Micro: Microbiology 01/11/25 21:20 Stool Stool Occult Blood (RYLEE) - Final Physical Exam Const alert and oriented x3 General Appearance: cooperative HEENT Mouth: dry mucous membranes Resp normal respiratory effort and clear to auscultation bilaterally Effort and Inspection: Negative for tachypneic or labored Cardio regular rate, regular rhythm, no rub and no gallops Cardio Narrative: No ectopy GI GI Narrative: Less gas since the simethicone was added and the stool is now more gel like thanliquid. Decreased stool output today. Extremity no calf tenderness Extremity Narrative: Since the Cipro was discontinued he is no longer c/o R ankle pain. General Extremity: Negative for edema Skin Rashes: no rashes Psych Psych Narrative: calm, good eye contact, talkative, sleeping better at night and has a good appetite. Appearance: appropriate Assessment & Plan Assessment/Plan (1) Debility: (2) History of right hemicolectomy: (3) History of ileostomy: (4) History of partial colectomy: (5) Postoperative abscess: (6) H/O drainage of abscess: (7) Acute renal failure superimposed on stage 4 chronic kidney disease: QUALIFIERS: Acute renal failure type: unspecified Qualified Code(s): N17.9 - Acute kidney failure, unspecified; N18.4 - Chronic kidney disease, stage 4 (severe) (8) CKD (chronic kidney disease), stage IV: (9) Orthostatic hypotension: (10) Anemia: QUALIFIERS: Anemia type: unspecified type Qualified Code(s): D64.9 - Anemia, unspecified (11) Dysphagia, oropharyngeal: (12) Cognitive dysfunction: (13) Other severe protein-calorie malnutrition: (14) Hyponatremia: (15) Hypomagnesemia: (16) Myocardial infarction due to demand ischemia: (17) Cardiomyopathy: QUALIFIERS: Cardiomyopathy type: unspecified Qualified Code(s): I42.9 - Cardiomyopathy, unspecified (18) Severe aortic stenosis: (19) History of lumbar fusion: (20) Urinary retention: (21) BPH (benign prostatic hyperplasia): QUALIFIERS: Lower urinary tract symptom presence: symptoms present Lower urinary tract symptom detail: urinary retention Qualified Code(s): N40.1- Benign prostatic hyperplasia with lower urinary tract symptoms; R33.8 - Other retention of urine (22) Essential (primary) hypertension: (23) History of diabetes mellitus: (24) Depression: QUALIFIERS: Depression Type: reactive depression Qualified Code(s): F32.9 - Major depressive disorder, single episode, unspecified (25) Acute right ankle pain: (26) Achilles tendinitis of right lower extremity: PLAN: Plan 1. Continue therapy 2. Remove the KEN drain today 3. Check orthostatics today 4. Check an H&H and renal profile in the a.m. 5. change the Imodium to 4 mg TID 6. Increase the SSI to med/high scale. I want to see all the BS's < 180 with no hypoglycemia to hopefully cut down on polyuria. 7. May need to go up on the Glargine in the AM. Charges/Coding Visit Charges Inpatient E&M: 96130 Subs Hosp L1 01/19/25 0923 <Electronically signed by Marie Patino DO> Marie Patino DO Cosigner Signature (if applicable): CC: ~ Signed [facility] Work Phone: 1([phone]) 553-642906-25-2025 Consult note Author Judson Matute [facility] Note Date/Time January 17, 2025 3:59 pm [facility] Medical Records Department [address] [place] [address] Consultation - GI 01/16/251906 MR#: [id number] Acct: [id number] Name: JOAO BARNETT Rep #:[id number] : 1945 79 From: Judson Matute DO PCP: DEANNA Franklin Status:ADM IN Location: KP393-9 HPI Consult Data Date of Consult: 01/16/25 HPI Narrative Reason for Consultation: High output ileostomy HPI Narrative: JOAO BARNETT, is a 79 M with a complicated recent past medical history. All of history obtained from previous H&P's and current admission H&P. Patient's original problem sciatica due to lumbar canal stenosis who underwent L2-L5 posterior spinal instrumented fusion on 11/27/[address] Colon. He was discharged home on 11/29/2024. He returned to the emergency room on 12/01/2024 complaining of abdominal pain and distention associated with nausea and vomiting. He had not had a bowel movement since prior to the surgery. CT scan of the abdomen and pelvis showed mild acute sigmoid diverticulitis with scattered foci of free air thought to be secondary to microperforations. While at [facility] he was diagnosed with NSTEMI (felt to be type II due to demand ischemia). Echocardiogram was obtained that showed an EF of 36% with hypokinesia and multiple wall motion abnormalities. He had moderate to severe aortic stenosis. The EF was estimated at 35%. There was mild LAE and the PA systolic was estimated at 44 which is consistent with mild pulmonary HTN. On 12/04/2024 he returned to the OR for a second look exploratory laparotomy with creation of a mucus fistula and end ileostomy. A CT scan of the abdomen and pelvis without oral or IV contrast was obtained on01/03/2025. It showed a possible small abscess at the operative site and a repeat examination with oral contrast was recommended. CT of the abdomen and pelvis with IV contrast was done on 01/04/2025 and showed right anterior upper quadrant fluid and gas collection without intraluminal contrast material compatible with an intra- abdominal abscess. General surgery recommended transfer back to [facility] for treatment. He was [facility] to [facility] on 01/08. IR placed a drain in the RUQ and then aspirated 3 cc of exudate. On 01/10/25 the culture of the abscess drainage was not growing anything ( he had been on Zosyn). Zosyn was continued and on the day he was transferred to the acute inpt rehab unit at [facility] he was transitioned to [facility]. I was asked to see him due to high output ileostomy. [facility] Medical History Diverticulosis Acute renal failure superimposed on stage 4 chronic kidney disease Diabetic polyneuropathy Iron deficiency anemia Irregular heart beat CKD (chronic kidney disease), stage IV Wears glasses Wears dentures BPH (benign prostatic hyperplasia) History of diverticulitis Former smoker Leg cramps History of echocardiogram Hypertrophic scar Carotid stenosis, left Sebaceous cyst Amaurosis fugax of right eye Sciatica Hyperlipidemia Osteoarthritis Hemorrhoid GERD (gastroesophageal reflux disease) HTN (hypertension) Home Medications ?Medication ?Instructions ?Recorded ?Last Taken ?Type aspirin 81 mg tablet,delayed 81 mg PO DAILY@0800 heart health 04/16/17 11/26/24 09:00 History release tamsulosin 0.4 mg capsule 0.4 mg PO QHS bph 04/16/17 0 01/10/25 History gabapentin 300 mg capsule 300 mg PO QHS PAIN 10/31/24 11/25/24 22:30 History acetaminophen 325 mg capsule 650 mg PO Q4H PRN fever o r pain 01/11/25 Unknown History carvedilol 6.25 mg tablet (Coreg) 6.25 mg PO BID blood pressure 01/11/25 01/11/25 History ciprofloxacin HCl 500 mg tablet 500 mg PO DAILY ATB 01/11/25 History finasteride 5 mg tablet (Proscar) 5 mg PO DAILY bph 01/11/25 History isosorbide dinitrate 5 mg tablet 10 mg PO TID bp 01/1101/11/25 History (Isordil Titradose) Allergy/AdvReac Type Severity Reaction Status Date / Time atorvastatin (From Lipitor) Allergy INTOLERANCE Verified 12/26/24 20:42 ezetimibe (From Zetia) Allergy MYALGIA Verified 12/26/24 20:42 pravastatin Allergy MYALGIAS Verified 12/26/24 20:42 simvastatin (From Zocor) Allergy INTOLERANCE Verified 12/26/24 20:42 sitagliptin (From Januvia) Allergy INTOLERANCE Verified 12/26/24 20:42 tetanus and diphtheria Allergy Rash Verified 12/01/24 22:00 toxoids Upvlnoo-HSO-MzJ Reductase AdvReac Other Verified 12/01/24 22:00 Inhibitor (Zpbvxxy-Wmg-Pnw Reductase Inhibitor) Family History Father Diabetes Heart disease Myocardial infarction Mother CAD (coronary artery disease) Arthritis Surgical History H/O drainage of abscess History of partial colectomy History of lumbar fusion History of ileostomy History of right hemicolectomy History of right-sided carotid endarterectomy (~11/2017) History of umbilical hernia S/P ventral herniorrhaphy S/P inguinal hernia repair S/P colonoscopy Social History household members: spouse Smoking Status: Former smoker alcohol intake: never substance use type: does not use ROS Constitutional Constitutional: Denies fatigue, fever(s), poor appetite, weight gain or weight loss Gastrointestinal Gastrointestinal: Denies belching, bloating, change in bowel habits, change in stool character, chewing difficulty, coffee ground emesis, constipation, cramping, diarrhea, dyspepsia, dysphagia, early satiety, excessive flatus, fecalincontinence, heartburn, hematemesis, hematochezia, hemorrhoids, loose stools, melena, nausea, odynophagia, rectal bleeding, tenesmus, vomiting or weight changes Physical Exam Const alert, oriented x3, no apparent distress and healthy appearing General Appearance: cooperative GI normal to inspection, nondistended, normoactive bowel sounds, soft to palpation,non-tender and non-distended GI Narrative: Normal-appearing stoma with mucous fistula Percussion: normal to percussion Rectal Exam: deferred Medical Records Data Medical Nutrition Assessment Dietitian: Malnutrition Criteria Met Start: 01/12/25 12:44 Freq: Status: Active Protocol: Document 01/15/25 10:00 [facility] (Rec: 01/15/25 10:00 [facility] [id number]) Nutrition Malnutrition Evidence of Yes Malnutrition Exists Evidenced By Suboptimal Energy Intake (Severe),Weight Loss (Severe), Physical Changes (Moderate) Clinical Problem Acute Disease or Injury Related Malnutrition Etiology r/t acute illness and recent surgeries and suboptimal energy intake Signs/Symptoms as evidenced by po intake meeting <75% of estimated nutritional needs and 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 Patino- soft and bite sized Changes consistency Will continue Nepro CHO Steady tid w/ meals for additional abel/pro if consumed. Continue appetite stimulant as ordered Continue to follow and monitor for changes in pt nutritional status and make additional rec as indicated . Lab / Micro Data 01/16/25 11:48 01/16/25 11:48 Labs: Laboratory Results - last 24 hr 01/15/25 21:41: POC Glucose 244 H 01/16/25 07:12: POC Glucose 174 H 01/16/25 11:20: POC Glucose 184 H 01/16/25 11:48: Hgb 9.8 L, Hct 30.0 L, ESR 19, Sodium 130 L, Potassium 5.1, Chloride 102, Carbon Dioxide 16.9 L, Anion Gap 12, BUN 48 H, Creatinine 1.93 H, Estim Creat Clear Calc 27.44 L, Est GFR (MDRD) Non-Af 35 L, BUN/Creatinine Ratio25.0 H, Glucose 136 H, Calcium 9.2, C-React Prot Ext Range 10.70 H 01/16/25 16:22: POC Glucose 173 H Imaging Radiology Impression Ankle X-Ray 01/16/25 11:05 IMPRESSION: Moderate arterial calcification is noted. Minimal degenerative changes are seen of the ankle joint. No ankle joint effusion is seen. On the lateral view, normal contour of the Achilles tendon is noted. Minimal degenerative changes are seen of the midfoot. No fracture or dislocation is noted. Reading Location: [facility] Lumbar Spine X-Ray 01/16/25 13:30 IMPRESSION: Stable postoperative changes of the lumbar spine. Surgical drain projects in the right lower abdomen, correlate with exam. Reading Location: [id number] Assessment & Plan Assessment/Plan (1) High output ileostomy: PLAN: His ileostomy output increased over the past 2 days, requiring frequent pouch emptying. The consistency of his output is brownish liquid and then not foul-smelling. He does not have any symptoms of abdominal pain, cramping, nausea or vomiting. * Mucus Fistula: date of mucus fistula creation was on 12/04/2024 and a there is some drainage which is slow down. * Hydration Status:?Patient reports feeling thirsty, but he denies dry mouth. He has maintained his weight since being here but I do not know the amount of exact input and output. Patient has been on normal saline at 100 an hour and received sodium bicarbonate. He has not had much urine output. * Dietary Intake:?His dietary intake seems to be of regular diet with some fruit juices and coffee. It is not known if he is having any increased output with the use of the substances. * Medications: loperamide 2 mg p.o. every 4 to 6 hours Common pitfalls and why they do not work: 1. If we instruct him to ?just drink more.? This often increases ostomy losses and further dehydrates the patient. 2. He may discover that if they drink less their stool output decreases, but unfortunately so does their urine output, further worsening kidney injury. As the GI tract strives for isotonicity, if he drinks hypertonic fluids, water will be pulled into the small bowel lumen to dilute the higher osmotic fluid. * Hypertonic fluids to avoid include fruit juices/drinks, regular sodas, sweet tea, maple or other syrups, ice cream, sherbet, and sweetened commercial liquid supplements such as Boost, Ensure, or store brand equivalents. * Conversely, hypotonic solutions are the lesser of the evils, but still not good choices. These fluids pull sodium, and along with it, water into the small bowel lumen to increase the osmolarity. Examples include water, tea, coffee, alcohol, and diet drinks. * Also we need to stay watch sugar free and ?diabetic? foods and beverages that may contain sugar alcohols (sorbitol,)as they are very diarrheagenic. Oral rehydration solutions are the most beneficial to for him. He does not have short-bowel but during his period in the hospital we will treathim like he does have short-bowel. The stool should be checked for infection such as C. difficile, enteric pathogens, white blood cells, fecal lactoferrin and stool calprotectin I usually use cholestyramine powder, suspension . This is only for use in those with a colon. Without a colon, bile acid malabsorption is not possible. - The first step is acid decreasing with Protonix 40 mg p.o. twice daily - The next step is loperamide: 6mg QID (3 tablets QID) - The third agent is Diphenoxylate: 2.5mg / atropine 0.025mg (2 tablets) QID - The fifth agent is Codeine: 15mg (1 tablet) TID Charges/Coding Visit Charges Inpatient E&M: 37446 Init Hosp 01/17/25 1559 <Electronically signed by Judson Friend DO> Cosigner Signature (if applicable): CC: DEANNA Coronado; Dr. Marie Patino DO~ Signed [facility] Work Phone: 1(865) 515-928106-25-2025 Progress note Author Bill Colon [facility] Note Date/Time January 17, 2025 10:0 6am [facility] Medical Records Department [address] [place] [address] Progress Note - Orthopedic 01/16/25 1149 MR#: [id number] Acct: [id number] Name: JOAO BARNETT Rep #:[id number] : 1945 79 From: Bill Colon MD PCP: DEANNA Franklin Status:ADM IN Location: MS393-3 Documented by User: AZAR Muller 01/16/25 11:58 Subjective Subjective Patient is 7 weeks out L2-5 fusion. Patient had a very complicated postop whichresulted in multiple surgeries and a stay at [facility]. The patient is currently back in [place] at inpatient rehab. The patient was seen at the bedside today. Patient reports that he continues to do better. He continues towork with therapy. Patient says that when ambulating he uses a walker. Patientreports that prior to the lumbar surgery 7 weeks ago he was having some issues with constipation. The patient also says that he is very happy with the lumbar surgery and feels like that had gone very well. Objective Data Objective Data Vital Signs: Vital Signs Temp Pulse Resp BP Pulse Ox O2 Del Method 98.8 F 75 16 164/78 H 97 Room Air 01/16/25 06:00 01/16/25 06:00 01/16/25 06:00 01/16/25 06:00 01/16/25 06:00 01/16/25 07:20 Oxygen Delivery Method Room Air Weight: 148 lb 9.465 oz Body Mass Index (BMI) 24.7 Intake & Output: Intake and Output for Last 24 Hours 01/14/25 01/15/25 01/16/25 23:59 23:59 23:59 Intake Total 775 / 1275 2029 / 2030 340 / 340 Output Total 1700 / 2350 3250 / 3250 1200 / 1200 Balance -925 / -1075 -1220 / -1220 -860 / -860 Medical Nutrition Assessment Dietitian: Malnutrition Criteria Met Start: 01/12/25 12:44 Freq: Status: Active Protocol: Document 01/15/25 10:00 [facility] (Rec: 01/15/25 10:00 [facility] [id number]) Nutrition Malnutrition Evidence of Yes Malnutrition Exists Evidenced By Suboptimal Energy Intake (Severe),Weight Loss (Severe), Physical Changes (Moderate) Clinical Problem Acute Disease or Injury Related Malnutrition Etiology r/t acute illness and recent surgeries and suboptimal energy intake Signs/Symptoms as evidenced by po intake meeting <75% of estimated nutritional needs and 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 Patino- soft and bite sized Changes consistency Will continue Nepro CHO Steady tid w/ meals for additional abel/pro if consumed. Continue appetite stimulant as ordered Continue to follow and monitor for changes in pt nutritional status and make additional rec as indicated . Lab / Micro Data 01/16/25 11:48 01/13/25 04:28 Labs: Laboratory Results - last 24 hr 01/15/25 12:07: POC Glucose 191 H 01/15/25 16:50: POC Glucose 191 H 01/15/25 21:41: POC Glucose 244 H 01/16/25 07:12: POC Glucose 174 H 01/16/25 11:20: POC Glucose 184 H Micro: Microbiology 01/11/25 21:20 Stool Stool Occult Blood (RYLEE) - Final Radiography Diagnostic Testing: Radiology Impression Ankle X-Ray 01/16/25 11:05 IMPRESSION: Moderate arterial calcification is noted. Minimal degenerative changes are seen of the ankle joint. No ankle joint effusion is seen. On the lateral view, normal contour of the Achilles tendon is noted. Minimal degenerative changes are seen of the midfoot. No fracture or dislocation is noted. Reading Location: [place] [address] Physical Exam Narrative Neurological examination of the lower extremity shows 5X5 power. Normal sensation across all dermatomes. Physical examination of the back and belly shows incisions well-healed. Const alert, oriented x3 and no apparent distress Assessment & Plan Assessment/Plan (1) History of lumbar fusion: PLAN: Plan Patient is 7 weeks out L2-5 fusion. Will obtain upright AP and lateral x-rays today. Reviewed prior abdominal CT scan from January 03, 2025 which shows fusion healing. Patient reports that he does not believe he will be able to wear the bone stimulator as this has to wrap around the abdomen and his ostomy bag would get in the way. Discussed that if that is the case then he does not need to wear the bone stimulator. Patient will continue to work with OT/PT. Continue restrictions of no bending, lifting, twisting until 3 months postop. He will follow-up in the clinic once discharged home. Documented by User: Dr. Bill Colon MD 01/16/25 12:22 Subjective Subjective Patient is 7 weeks out L2-5 fusion. Patient had a very complicated postop whichresulted in multiple surgeries and a stay at [facility]. The patient is currently back in [place] at inpatient rehab. The patient was seen at the bedside today. Patient reports that he continues to do better. He continues towork with therapy. Patient says that when ambulating he uses a walker. Patientreports that prior to the lumbar surgery 7 weeks ago he was having some issues with constipation, and knows about the diagnosis of diverticulosis. The patientalso says that he is very happy with the lumbar surgery and feels like that had gone very well. He denies any radicular symptoms. He still feels weak in both lower extremities due to not having done much therapy over the last 6 to 7 weeks. Objective Data Lab / Micro Data 01/16/25 11:48 01/13/25 04:28 Assessment & Plan Assessment/Plan (1) History of lumbar fusion: PLAN: Plan Patient is 7 weeks out L2-5 fusion. Will obtain upright AP and lateral x-rays today. Reviewed prior abdominal CT scan from January 07, 2025 which shows fusion healing. Patient reports that he does not believe he will be able to wear the bone stimulator as this has to wrap around the abdomen and his ostomy bag would get in the way. Discussed that if that is the case then he does not need to wear the bone stimulator for now. Patient will continue to work with OT/PT. Continue restrictions of no bending, lifting, twisting until 3 months postop. He will follow-up in the clinic once discharged home. 01/16/25 1222 <Electronically signed by Bill Colon MD> Cosigner Signature (if applicable): 01/17/25 1006 <Electronically signed by Betina ASKEW> CC: ~ Signed [facility] Work Phone: 1(208) 570-950006-25-2025 [facility]06-24-2025 Radiology Diagnostic study [facility]06-24-2025 Progress note Author Marie Patino [facility] Note Date/Time January 16, 2025 3:46 pm [facility] Medical Records Department [address] [place] [address] Progress Note 01/16/25 1040 MR#: [id number] Acct: [id number] Name: JOAO BARNETT Rep #:[id number] : 1945 79 From: Marie Patino DO PCP: DEANNA Franklin Status:ADM IN Location: [place] [address]-1 Subjective Subjective Cipro will finish in the AM. Afebrile VSS -blood pressure over the past 24 hours has ranged from 124/65 to 163/79. Blood pressure this a.m. is 164/78. Tends to be lower at 1800 and elevated the rest of the time. Heart rate is within normal limits. Maintaining appropriate oxygen saturation on RA Oral intake - FOOD eating 75 to 100% of all of his meals since last Wednesday. FLUIDS oral fluid intake is better, he took 2030 cc yesterday. Unfortunately between urine and stool his output yesterday was 3250 for a fluid balance of -1220. Overnight he was -860. The blood sugar record was reviewed. Discussed with nursing - Having a lot of gas in the ileostomy bag and requires frequent burping. KEN drain will be discontinued in the AM. Peña was removedthis AM. He has only a few drops in the urinal at the bedside and does not feelthe urge to go. The bladder does not feel distended. Reviewed the THERAPY notes Medication list reviewed. He is on Proscar but, Flomax has been on hold. He continues to c/o R ankle pain. It hurts worse on the medial side of the ankle, joavnny with palpation of the medial ankle. He has some pain with dorsiflexion of the ankle. Could it be Achilles tendonitis due to FQ? He denies cough, shortness of breath, chest pain, palpitations. He does feel lightheaded today, especially when standing. No significant abdominal pain. Objective Data Objective Data Vital Signs: Vital Signs Temp Pulse Resp BP Pulse Ox O2 Del Method 98.8 F 75 16 164/78 H 97 Room Air 01/16/25 06:00 01/16/25 06:00 01/16/25 06:00 01/16/25 06:00 01/16/25 06:00 01/16/25 07:20 Oxygen Delivery Method Room Air Weight: 148 lb 9.465 oz Body Mass Index (BMI) 24.7 Intake & Output: Intake and Output for Last 24 Hours 01/14/25 01/15/25 01/16/25 23:59 23:59 23:59 Intake Total 775 / 1275 2030 / 2030 340 / 340 Output Total 1700 / 2350 3250 / 3250 1200 / 1200 Balance -925 / -1075 -1220 / -1220 -860 / -860 Medical Nutrition Assessment Dietitian: Malnutrition Criteria Met Start: 01/12/25 12:44 Freq: Status: Active Protocol: Document 01/15/25 10:00 [facility] (Rec: 01/15/25 10:00 [facility] [id number]) Nutrition Malnutrition Evidence of Yes Malnutrition Exists Evidenced By Suboptimal Energy Intake (Severe),Weight Loss (Severe), Physical Changes (Moderate) Clinical Problem Acute Disease or Injury Related Malnutrition Etiology r/t acute illness and recent surgeries and suboptimal energy intake Signs/Symptoms as evidenced by po intake meeting <75% of estimated nutritional needs and 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 Patino- soft and bite sized Changes consistency Will continue Nepro CHO Steady tid w/ meals for additional abel/pro if consumed. Continue appetite stimulant as ordered Continue to follow and monitor for changes in pt nutritional status and make additional rec as indicated . Lab / Micro Data 01/13/25 04:28 01/13/25 04:28 Labs: Laboratory Results - last 24 hr 01/15/25 12:07: POC Glucose 191 H 01/15/25 16:50: POC Glucose 191 H 01/15/25 21:41: POC Glucose 244 H 01/16/25 07:12: POC Glucose 174 H Micro: Microbiology 01/11/25 21:20 Stool Stool Occult Blood (RYLEE) - Final Physical Exam Const alert and oriented x3 General Appearance: cooperative Resp clear to auscultation bilaterally Effort and Inspection: Negative for tachypneic or labored Cardio regular rate, regular rhythm, no rub and no gallops GI GI Narrative: has a lot of gas in the bag and some liquid brown stool. BS's are not hyperactive. The stoma looks good and has good output. Nursing yesterday did not have a problem with leakage. Extremity no calf tenderness Extremity Narrative: No ankle edema. the R ankle is not red, swollen or warm to the touch. He has pain with eversion and inversion and dorsiflexion of the foot. He had pain whenI grasped the Achilles tendon and squeezed. Skin Rashes: no rashes Assessment & Plan Assessment/Plan (1) Debility: (2) History of right hemicolectomy: (3) History of ileostomy: (4) History of partial colectomy: (5) Postoperative abscess: (6) H/O drainage of abscess: (7) Acute renal failure superimposed on stage 4 chronic kidney disease: QUALIFIERS: Acute renal failure type: unspecified Qualified Code(s): N17.9 - Acute kidney failure, unspecified; N18.4 - Chronic kidney disease, stage 4 (severe) (8) CKD (chronic kidney disease), stage IV: (9) Orthostatic hypotension: (10) Anemia: QUALIFIERS: Anemia type: unspecified type Qualified Code(s): D64.9 - Anemia, unspecified (11) Dysphagia, oropharyngeal: (12) Cognitive dysfunction: (13) Other severe protein-calorie malnutrition: (14) Hyponatremia: (15) Hypomagnesemia: (16) Myocardial infarction due to demand ischemia: (17) Cardiomyopathy: QUALIFIERS: Cardiomyopathy type: unspecified Qualified Code(s): I42.9 - Cardiomyopathy, unspecified (18) Severe aortic stenosis: (19) History of lumbar fusion: (20) Urinary retention: (21) BPH (benign prostatic hyperplasia): QUALIFIERS: Lower urinary tract symptom presence: symptoms present Lower urinary tract symptom detail: urinary retention Qualified Code(s): N40.1- Benign prostatic hyperplasia with lower urinary tract symptoms; R33.8 - Other retention of urine (22) Essential (primary) hypertension: (23) History of diabetes mellitus: (24) Depression: QUALIFIERS: Depression Type: reactive depression Qualified Code(s): F32.9 - Major depressive disorder, single episode, unspecified (25) Acute right ankle pain: (26) Achilles tendinitis of right lower extremity: PLAN: More likely than not due to FQ. PLAN: Plan 1. Continue therapy 2. X-ray of the right ankle 3. Tylenol 1 g p.o. every 8 hours 4. Tramadol 25 mg every 12 hours as needed right ankle pain 4-10 5. Check a BMP, ESR, CRP and HH today 6. Discontinue Cipro 7. If output between stool and urine continues to exceed input will D/W DrLeon Friend what we can do to slow stool output down. Will have nursing start measuring the amount of liquid stool he is having...... 8. clarify with -pharmacy that he is to get Glargine 10 units BID.........he did not get a dose of Glargine this AM.... Charges/Coding Visit Charges Inpatient E&M: 62044 Subs Hosp L1 01/16/25 1134 <Electronically signed by Marie Patino DO> Marie Patino DO Cosigner Signature (if applicable): CC: ~ Signed ADDENDUM by Dr. Marie Patino DO on 01/16/25 at 1236 Addendum Hemoglobin is 9.8 today. This is up from 9.0 on 01/13/2025. I suspect this may be related to intravascular volume depletion. ESR is 19. BMP and CRP are stillpending. 01/16/25 1236 <Electronically signed by Marie bosch DO> Date _ Marie Patino DO Cosigner Signature (if applicable): Date cc: ~* Signed ADDENDUM by Dr. Marie Patino DO on 01/16/25 at 1546 Addendum Blood pressure lying down was 125/63 with a heart rate of 81 bladder scan was 462 and he had no urge to void. He was straight cath'd. Orthostatics were very + today. The blood pressure lying down was 125/63 with a heart rate of 81. Standing up the blood pressure dropped to 84/51 with a heart rate of 93. He is on a beta melissa. Sodium is 130 today and the potassium is 5.1. Serum bicarb is low at 16.9. The BUN is 48, up from 28 on 01/13/2025 and the creatinine is 1.93 which is stable. It was 2.88 on 01/07/2025. X-ray of the right ankle showed minimal degenerative changes seen in the ankle joint with no ankle joint effusion. The Achilles tendon was normal contour. Nofracture or dislocation was noted. Will give a 500 cc NS bolus and then run IV NS at 100 cc/hr. Give 1 amp of IV bicarb now and start bicarb tabs TID........Metabolic acidosis is likely due to large amount of liquid stool. Try Imodium 2 mg Q 6H. Recheck renal profile in the AM. Orthostatics in the AM. Psyllium husk fiber tends to form a gel consistency with water and this is supposed to slow transit in some........will start 1 pkt BID. D/W pharmacist. Consult Dr. Matute to participate in care. Will talk with the hospice physician for instruct in foods that cause increased gas. 01/16/25 1546 <Electronically signed by Marie bosch DO> Date _ Marie Patino DO Cosrudyer Signature (if applicable): Date cc: ~* Signed [facility] Work Phone: 1(120) 208-542806-24-2025 Radiology Diagnostic study [facility]06-23-2025 Progress note Author Marie Patino [facility] Note Date/Time January 15, 2025 5:48 pm [facility] Medical Records Department [address] [place] [address] Progress Note 01/15/25921 MR#: [id number] Acct: [id number] Name: JOAO BARNETT Rep #:[id number] : 1945 79 From: Marie Patino DO PCP: ROBERTO FranklinC Status:ADM IN Location: [place] [address] Subjective Subjective Everardo was seen on team rounds today. His and his son Lauri were present in the room for rounds. All questions were answered to their satisfaction. Afebrile VSS - Maintaining appropriate oxygen saturation on RA Oral intake - FOOD appetite has improved and he is eating 75 to 100% of most meals since Wednesday breakfast. FLUIDS poor The blood sugar record was reviewed. Bs's are not adequately controlled. Fastings are in the high 100's and the rest of the Accu-Cheks are in the 200s. He is getting Glargine 10 units at HS and getting 5 units TID with meals + SSI coverage TID AC. 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 Discussed with nursing - no problems that need addressed Reviewed the THERAPY notes Medication list reviewed. Eosinophils dropped to 6.6% on Wednesday........I suspect he has an allergy to PCN (he told me today that his mother was allergic to PCN)......he was transitioned from Zosyn to Cipro on the day of transfer to [facility] acute rehab. Creat came down to 1.95 with IV hydration. His R ankle pain is much better but, still has a little soreness. UA was normal. Denies abd pain. No CP, SOB, palpitations, N/V, suprapubic pain or calf pain. Lightheaded for brief time when standing but, improves with standingfor a minute. Objective Data Objective Data Vital Signs: Vital Signs Temp Pulse Resp BP Pulse Ox O2 Del Method 97.0 F L 62 15 163/79 H 97 Room Air 01/15/25 05:57 01/15/25 05:57 01/15/25 05:57 01/15/25 05:57 01/15/25 05:57 01/15/25 07:07 Oxygen Delivery Method Room Air Weight: 148 lb 9.465 oz Body Mass Index (BMI) 24.7 Intake & Output: Intake and Output for Last 24 Hours 01/13/25 01/14/25 01/15/25 23:59 23:59 23:59 Intake Total 1180 / 1180 775 / 1275 650 / 650 Output Total 2725 / 2725 1700 / 2350 1750 / 1750 Balance -1545 / -1545 -925 / -1075 -1100 / -1100 Medical Nutrition Assessment Dietitian: Malnutrition Criteria Met Start: 01/12/25 12:44 Freq: Status: Active Protocol: Document 01/12/25 12:44 SLA (Rec: 01/12/25 12:44 SLA [id number]) Nutrition Malnutrition Evidence of Yes Malnutrition Exists Evidenced By Suboptimal Energy Intake (Severe),Weight Loss (Severe), Physical Changes (Moderate) Clinical Problem Acute Disease or Injury Related Malnutrition Etiology r/t acute illness and recent surgeries and suboptimal energy intake Signs/Symptoms as evidenced by po intake meeting <75% of estimated nutritional needs and 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 Patino- soft and bite sized Changes consistency Will add Nepro CHO Steady tid w/ meals for additional abel/pro if consumed Continue to follow and monitor for changes in pt nutritional status and make additional rec as indicated . Lab / Micro Data 01/13/25 04:28 01/13/25 04:28 Labs: Laboratory Results - last 24 hr 01/14/25 11:32: POC Glucose 252 H 01/14/25 16:33: POC Glucose 229 H 01/14/25 22:06: POC Glucose 260 H 01/15/25 06:31: POC Glucose 180 H Micro: Microbiology 01/11/25 21:20 Stool Stool Occult Blood (RYLEE) - Final Physical Exam Const alert and no apparent distress General Appearance: cooperative HEENT moist oral mucous membranes Resp Resp Narrative: Few coarse crackles in the bases. Not tachypneic. No labored breathing. No wheezing. No cough. Cardio regular rate, regular rhythm and no gallops Cardio Narrative: No change in the aortic stenosis murmur. No ectopy. EKG shows normal sinus rhythm with left bundle branch block. GI GI Narrative: Soft, nondistended, active bowel sounds in all quadrants, no guarding with lightpalpation. Stoma is pink and there is good output from the ileostomy. Extremity no calf tenderness General Extremity: Negative for edema Skin Rashes: no rashes Psych Psych Narrative: sleeping a little better at night. Having trouble falling asleep but, once he gets to sleep he is able to stay asleep. Appetite is improved and he tells me today that he is hungry again. Affect is not as flat today. Appearance: appropriate Assessment & Plan Assessment/Plan (1) Debility: (2) History of right hemicolectomy: (3) History of ileostomy: (4) History of partial colectomy: (5) Postoperative abscess: (6) H/O drainage of abscess: (7) Acute renal failure superimposed on stage 4 chronic kidney disease: QUALIFIERS: Acute renal failure type: unspecified Qualified Code(s): N17.9 - Acute kidney failure, unspecified; N18.4 - Chronic kidney disease, stage 4 (severe) (8) CKD (chronic kidney disease), stage IV: (9) Orthostatic hypotension: (10) Anemia: QUALIFIERS: Anemia type: unspecified type Qualified Code(s): D64.9 - Anemia, unspecified (11) Dysphagia, oropharyngeal: (12) Cognitive dysfunction: (13) Other severe protein-calorie malnutrition: (14) Hyponatremia: (15) Hypomagnesemia: (16) Myocardial infarction due to demand ischemia: (17) Cardiomyopathy: QUALIFIERS: Cardiomyopathy type: unspecified Qualified Code(s): I42.9 - Cardiomyopathy, unspecified (18) Severe aortic stenosis: (19) History of lumbar fusion: (20) Urinary retention: (21) BPH (benign prostatic hyperplasia): QUALIFIERS: Lower urinary tract symptom presence: symptoms present Lower urinary tract symptom detail: urinary retention Qualified Code(s): N40.1- Benign prostatic hyperplasia with lower urinary tract symptoms; R33.8 - Other retention of urine (22) Essential (primary) hypertension: (23) History of diabetes mellitus: (24) Depression: QUALIFIERS: Depression Type: reactive depression Qualified Code(s): F32.9 - Major depressive disorder, single episode, unspecified (25) Acute right ankle pain: PLAN: Plan 1. Continue therapy 2. Change the glargine to 10 mg twice daily 3. Continue 5 units prior to each meal and sliding scale insulin 3 times daily AC 4. Voiding trial today. Orthostatics are mildly positive today. Continue to hold Flomax. If he retains > 300 cc with the Peña out will restart Flomax and recheck orthostatics. May need a TURP at some point. 5. check with surgeon to see if the KEN drain can be discontinued.........DC thedrain on 01/17. 6. Reinforced with Everardo that he needs to drink 1500-2 L a day. Having some polyuria......may be due to high BS's. 7. Arthritis compounded cream to the R ankle Orthostasis is much better following hydration with IV fluids.......still couldhave some autonomic neuropathy. Would like to avoid Midodrine in light of vascular disease and severe . Charges/Coding Visit Charges Inpatient E&M: 27125 Subs Hosp L2 01/15/25 0527 <Electronically signed by Marie Patino DO> Marie Patino DO Cosigner Signature (if applicable): CC: ~ Signed [facility] Work Phone: 1(112) 651-412906-20-2025 Progress note Author Marie Patino [facility] Note Date/Time January 12, 2025 2:54 pm [facility] Medical Records Department [address] [place] [address] Progress Note 01/12/25 0746 MR#: [id number] Acct: [id number] Name: JOAO BARNETT Rep #:[id number] : 1945 79 From: Marie Patino DO PCP: Trinity Coronado [employer]-C Status:ADM IN Location: [facility] Subjective Subjective Afebrile VSS - + orthostatics today. Near syncope and nausea with diaphoresis when standing, even briefly. Maintaining appropriate oxygen saturation on RA Oral intake - FOOD [] FLUIDS only 300 cc p.o. since arrival on rehab yesterday afternoon. The blood sugar record was reviewed. At bedtime blood sugar was 176 and the fasting today was 207. He had 2 units of Lispro at bedtime. Gets his Glargine in the AM. Discussed with nursing - near syncopal episode in the BR this AM. BP after he sat down in the chair [id number] systolic.....it was 144 lying in bed. Reviewed the THERAPY notes Medication list reviewed. On multiple meds that can drop the BP.......Coreg, Isordil, Proscar, Flomax. Has been diabetic for a long time and could have some autonomic insufficiency? Was able to ambulate 50' a day or 2 prior to DC at [facility] so I am suspecting the orthostatic changes today are at least in part due to dehydration/IV volume depletion and anemia. All lab from today was personally reviewed. White blood cell count is normal at 7.7 but, he has 25.7% eosinophils? Allergic to Cipro? Hemoglobin is 7.7 which is up from 7.1 a few days ago. Platelets are within normal limits. Sodium is 131 today with a potassium of 4.2. The BUN is 30 with a creatinine of 2.14 which is within his baseline. Creatinine clearance is 24.75 and the GFR is 31. GFR fluctuates at baseline between high 20'2 and low 30's. UA is 5.7 which is normal but, he is still c/o R ankle pain that kept him awake last night. Phos is mildly decreased at 2.6 today and the mag is only 1.6. Calcium is within normal limits. LFTs are unremarkable. Albumin is 2.7. Iron saturation on 12/29/24 was only 10.1. He got 3 dose of Iron sucrose for the low iron stores. Stool is heme negative. C/O not sleeping well last night. Poor oral intake. Feels depressed but, with no suicidal ideation. Not anxious. Very tired today and very lightheaded with standing....got nauseated, diaphoretic and almost had syncope. Denies vertigo, cephalgia, palpitations, orthopnea, paroxysmal nocturnal dyspnea, nausea, heartburn, calf pain and suprapubic pain. Still complaining of some right ankle pain which increases with light touch and mild abdominal pain at the site of the KEN drain. He denies rash and also denies pruritus. Objective Data Objective Data Vital Signs: Vital Signs Temp Pulse Resp BP Pulse Ox O2 Del Method 98.1 F 80 16 144/70 H 96 Room Air 01/12/25 05:40 01/12/25 05:40 01/12/25 05:40 01/12/25 05:40 01/12/25 05:40 01/12/25 05:40 Oxygen Delivery Method Room Air Weight: 148 lb 9.465 oz Body Mass Index (BMI) 24.7 Intake & Output: Intake and Output for Last 24 Hours 01/10/25 01/11/25 01/12/25 23:59 23:59 23:59 Intake Total 300 / 300 Output Total 1310 / 1310 775 / 775 Balance -1310 / -1310 -475 / -475 Lab / Micro Data 01/12/25 04:52 01/12/25 04:52 Labs: Laboratory Results - last 24 hr 01/11/25 16:37: POC Glucose 169 H 01/11/25 20:58: POC Glucose 176 H 01/12/25 04:52: WBC 7.7, RBC 2.57 L, Hgb 7.7 L, Hct 23.0 L, MCV 89.5, MCH 30.0, MCHC 33.5, RDW Std Deviation 45.1 H, RDW Coeff of Disha 13.9, Plt Count 323, MPV 10.3, Immature Gran % (Auto) 0.600, Neut % (Auto) 47.9, Lymph % (Auto) 21.1, [place] % (Auto) 4.4, Eos % (Auto) 25.7 H, Baso % (Auto) 0.3, Absolute Neuts (auto) 3.7, Absolute Lymphs (auto) 1.63, Nucleated RBC % 0, Sodium 131 L, Potassium 4.2, Chloride 100, Carbon Dioxide 21.5, Anion Gap 10, BUN 30 H, Creatinine 2.14 H, Estim Creat Clear Calc 24.75 L, Est GFR (MDRD) Non-Af 31 L, BUN/Creatinine Ratio 13.8, Glucose 181 H, Uric Acid 5.7, Calcium 8.5, Phosphorus 2.6 L, Magnesium 1.6, Total Bilirubin 0.20, AST 20, ALT 19, Alkaline Phosphatase 78, Total Protein 5.7 L, Albumin 2.7 L, Globulin 3.0, Albumin/Globulin Ratio 0.9 01/12/25 06:31: POC Glucose 207 H Micro: Microbiology 01/11/25 21:20 Stool Stool Occult Blood (RYLEE) - Final Physical Exam Const alert and oriented x3 Constitutional Narrative: Appears very fatigued and weak. Does not appear to be in significant pain. He is cooperative and makes good eye contact with me. HEENT Mouth: dry mucous membranes Resp Resp Narrative: Good air exchange, not tachypneic, few coarse crackles in both bases posteriorly more likely than not secondary to atelectasis. Cardio regular rate, regular rhythm and no gallops Cardio Narrative: No change in the aortic stenosis murmur. No ectopy. EKG shows normal sinus rhythm with left bundle branch block. GI GI Narrative: Soft, nondistended, active bowel sounds in all quadrants, no guarding with light palpation. Stoma is pink and there is good output from the ileostomy. Extremity no calf tenderness General Extremity: Negative for edema Skin Rashes: no rashes Psych Mood & Affect: depressed Assessment & Plan Assessment/Plan (1) Debility: (2) History of right hemicolectomy: (3) History of ileostomy: (4) History of partial colectomy: (5) Postoperative abscess: (6) H/O drainage of abscess: (7) Acute renal failure superimposed on stage 4 chronic kidney disease: QUALIFIERS: Acute renal failure type: unspecified Qualified Code(s): N17.9 - Acute kidney failure, unspecified; N18.4 - Chronic kidney disease, stage 4 (severe) (8) CKD (chronic kidney disease), stage IV: (9) Orthostatic hypotension: (10) Anemia: QUALIFIERS: Anemia type: unspecified type Qualified Code(s): D64.9 - Anemia, unspecified (11) Dysphagia, oropharyngeal: (12) Cognitive dysfunction: (13) Other severe protein-calorie malnutrition: (14) Hyponatremia: (15) Hypomagnesemia: (16) Myocardial infarction due to demand ischemia: (17) Cardiomyopathy: QUALIFIERS: Cardiomyopathy type: unspecified Qualified Code(s): I42.9 - Cardiomyopathy, unspecified (18) Severe aortic stenosis: (19) Left atrial enlargement: (20) Mild pulmonary hypertension: (21) History of lumbar fusion: (22) Urinary retention: (23) BPH (benign prostatic hyperplasia): QUALIFIERS: Lower urinary tract symptom presence: symptoms present Lower urinary tract symptom detail: urinary retention Qualified Code(s): N40.1 - Benign prostatic hyperplasia with lower urinary tract symptoms; R33.8 - Other retention of urine (24) Essential (primary) hypertension: (25) History of diabetes mellitus: (26) History of right-sided carotid endarterectomy: (27) Carotid stenosis, left: (28) Status post lumbar spinal fusion: (29) Diverticulosis: (30) Hyperlipidemia: QUALIFIERS: Hyperlipidemia type: unspecified Qualified Code(s): E78.5 - Hyperlipidemia, unspecified (31) Depression: QUALIFIERS: Depression Type: reactive depression Qualified Code(s): F32.9 - Major depressive disorder, single episode, unspecified (32) Left bundle branch block: (33) Acute right ankle pain: PLAN: Plan 1. Continue therapy 2. Supplement MAG. 3. 500 cc NS bolus over 1 hour. 4. type and cross for 1 unit PRBC's and transfuse 1 today 5. Put Proscar on hold. 6. Recheck orthostatics and a CBC with diff in the AM. He was on Zosyn at [facility] until 01/11 and he got his first dose of Cipro on the . May be allergic to PCN? Will continue the Cipro. He has no rash, no wheezing and is not c/o pruritus. Hypotension is not likely related to anaphylaxis. 7. REquest all cardiology notes and the ECHO report form [facility]. 8. D/W hospice physician - transition him from Ensure to Nepro to decrease potassium load. also add a K restriction to his diet. Add carb consistent. I would rather give him potassium if the K is low than be treating hyperkalemia again. 9. Start Remeron 15 mg at HS 10. Repeat orthostatic vital signs in the a.m. 11. CBC with differential and BMP in the a.m. 12. Start magnesium supplement to keep the magnesium around 2 since he has left atrial enlargement and is at risk for atrial fibrillation Charges/Coding Visit Charges Inpatient E&M: 28446 Subs Hosp L2 01/12/25 1454 <Electronically signed by Marie Patino DO> Marie Patino DO Cosigner Signature (if applicable): CC: ~ Signed [facility] Work Phone: 1(758) [phone] History and physical note Author Marie Patino [facility] Note Date/Time January 12, 2025 2:37 pm [facility] Medical Records Department [address] [place] [address] Post Admission Physician Eval 01/12/25 0745 MR#: [id number] Acct: [id number] Name: JOAO BARNETT Rep #:[id number] : 1945 79 From: Marie Patino DO PCP: DEANNA Franklin Status:ADM IN Location: [place] [address] Admission Information Primary Diagnosis:: Debility due to prolonged hospitalization with partial colectomy and ileostomy Status Changes from Prescreening?: No changes Identified Actual Problem List:: Skin Intergrity, Pain, ALteration in Cmfrt, Cognitve Impr/Memory Loss, Depression, Alteration in Sleep, Alteration in Nutrition, Mobility Impaired, Self Care Deficit, Diabetes, Hyperglycemia, BP, Hypotension, Alteration/ Air Exchange, Fluid Change-Dehydration and Alteration-Leisure Activ. Potential Problem List:: DVT, Bleeding, Infection, UTI, Aspiration, Falls, Skin Integrity and Depression Risk of Complications DVT: CRISTIAN Hose and - (Heparin 5000 units SQ every 12 hours) Bleeding: Monitor Lab Values, Nursing to Teach Precautions for anti-coagulation therapy., Wound, if applicable, to be assessed every shift. and Stroke patients assessed for lethargy or change in status. Infection: Clinical Staff to Monitor for S/S of infection: and S/S of infection include fever, redness, warmth, etc. Urinary Tract Infection: Monitor for frequency, burning, discomfort, or incontinence. and Nursing will obtain urine sample for urinalysis and C&S when ordered. Aspiration: Clinical staff will monitor for coughing, drooling, congestion., Speech will evaluate swallowing and dsyphasia. and Nursing will monitor patient swallowing during meals. Falls: Patient will be evaluated for Fall Precautions and Patient will be placedon Fall Precautions as indicated per protocol. Skin Breakdown: Nursing will assess skin daily using assessment tool. and Nursing will place on Skin Breakdown Precautions as indicated. Pain: Clinical staff will assess patient's pain level per protocol., Medicationswill be given, if needed, and the pain level reassessed. and Other methods: Massage, distraction, decrease stimulus, etc. used PRN. Plan of Care Patient requires physician specializing in physical medicine and rehab oversightto provide close medical supervision of rehab issues including: Pain Management,Sleep Problems, Bowel and Bladder, Medical and co-morbidity Management, DVT prophylaxis, Rehabilitation Leadership and Coordination of treatment team Patient needs Physical Therapy: For a minimum of 1 hour and At least 5 out of 7 days Patient needs Physical Therapy to improve:: Mobility, Strengthening, Transfers, Stretching, ROM, Endurance, Stairs, Gait and Balance Patient needs Occupational Therapy: For a minimum of 1 hour and At least 5 out of 7 days Patient needs Occupational Therapy to improve ADL's incl.: Eating, Grooming, Bathing, Dressing, Toileting, Toilet transfers, Community Reintegration, Higher functioning activities, Household tasks, Adaptive Equipment, Splinting and Otheractivities as determined Patient requires speech therapy: For a minimum of 1 hour and At least 5 out of 7days Patient requires speech therapy for: Swallowing, Cognition, Language Skills and Compensatory Strategies Patient requires 24/7 Rehabilitation Nursing for: Pain Issues, Identifying and preventing risk factors, Monitoring and reporting current medical conditions, Assisting with ambulation, transfer, and all ADL's, Teaching patients about disease process and medications, Family teaching, Providing safe environment, Bowel and Bladder Issues, Skin integrity and Medication Management Patient needs Ceo & Founder/ Case Management for: Discharge Planning, Arranging Home Equipment or Services and Family Interventions Patient needs Dietary and Nutrition Services for: Adequate Nutrition, Nutritional Supplements and Nutritional Education Goals Goals Patient will remain: free from falls Patient will perform eating at: MOD I level of assist. Patient will perform bed mobility at: MOD I level of assist. Patient will complete transfers from bed to chair at: MOD I level of assist. Patient will ambulate: - (350 feet with the least restrictive device @ mod I on various surfaces) Patient will complete upper body dressing at: MOD I level of assist. Patient will complete lower body dressing at: MOD I level of assist. (With adaptive equipment as needed) Patient will complete toilet transfer at: MOD I level of assist. Patient will complete toileting at: MOD I level of assist. Patient will perform bathing at: MOD I level of assist. Patient will perform Tub/Shower transfer at: - (Supervision) Patient will complete grooming at: MOD I level of assist. (While standing at thesink) Patient will achieve: 12 stairs (With 2 handrails at standby assist to allow access to his basement) Patient will have pain level of: of 3 or less Patient's skin will: remain intact Patient will receive: adequate nutrition. Discharge Planning Pt Prognosis for Sig. Practical Improv. w/in Reasonable Time: Good Estimated Length of stay (days): 28 Anticipated D/C Destination: Home with Outpt Therapy Was Preadmission Assessment Accurate?: Yes 01/12/25 1437 <Electronically signed by Marie Patino DO> Cosigner Signature (if applicable): CC: ~ Signed [facility] Work Phone: [phone]) 541-769206-20-2025 History and physical note Author [facility] Note Date/Time January 12, 2025 2:31 pm [facility] Medical Records Department [address] [place] [address] History & Physical Exam 01/11/25 1642 MR#: [id number] Acct: [id number] Name: JOAO BARNETT Rep #:[id number] : 1945 79 From: Marie Patino DO PCP: DEANNA Franklin Status:ADM IN Location: [address] HPI - General General Date of Admission: 01/11/25 Date of Service: 01/11/25 HPI Narrative JOAO BARNETT, is a 79 YO male with a PMH of chronic renal failure stage IV,BPH with urine retention), diverticulosis, tobacco dependence in remission (quitin 1979), BL carotid stenosis with hx of R CEA by Dr. 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 Colon. He was discharged home on 11/29/2024. He returned to the emergency room on 12/01/2024 complaining of abdominal pain and distention associated with nausea and vomiting. He had not had a bowel movement since prior to the surgery. CT scan of the abdomen and pelvis showed mild acute sigmoid diverticulitis with scattered foci of free air thought to be secondary to microperforations. There was a diffusely dilated ascending, transverse and proximal descending colon with pneumatosis. Dr. Smith from general surgery was consulted. Dr. Smith recommended transfer to a tertiary care facility and he was transferred to [facility]. He was admitted to the surgical intensive care unit and started on Zosyn. Shortly after admission the abdominal pain and distention worsened and he was tachycardic. He was takenemergently to the OR for an exploratory laparotomy and underwent right hemicolectomy and partial colectomy of the proximal transverse colon with placement of a wound vac. On 12/03 the troponin was up trending and cardiology was consulted. He was diagnosed with NSTEMI (felt to be type II due to demand ischemia). Echocardiogram was obtained that showed an EF of 36% with hypokinesia and multiple wall motion abnormalities. He had moderate to severe aortic stenosis. The EF was estimated at 35%. There was mild LAE and the PA systolic was estimated at 44 which is consistent with mild pulmonary HTN. On 12/04/2024 he returned to the OR for a second look exploratory laparotomy with creation of a mucus fistula and end ileostomy. On 12/05/2024 he had an emesis and likely aspirated. An NG tube was placed. On 12/06/2024 he was intubated forworsening tachypnea/respiratory distress. He was extubated on 12/08/2024 and transferred to a regular nursing floor on 12/09/2024. On 12/10/2024 white blood cell count was elevated and CT scan of the abdomen/pelvis showed a moderate volume of free fluid in the Left upper quadrant. On 12/12/2024 interventional radiology placed a drain for left upper quadrant free fluid. On 12/13/2024 he had respiratory distress secondary to fluid overload and was transferred back tothe intensive care unit. Nephrology was consulted for acute on chronic kidney failure. He was aggressively diuresed. He was seen by speech therapy who recommended n.p.o. and tube feed was started. On 12/17/2024 he was transferred back to a regular nursing floor. On 12/19/2024 he had flexible laryngoscopy which showed intact vocal cord motion and oral/pharyngeal dysphagia. On 12/20/2024 he was lethargic and nephrology recommended dialysis secondary to an elevated BUN. A temporary non-tunneled dialysis catheter was placed in the right internal jugular and he underwent dialysis. On 12/24/2024 he failed a voiding trial and a Peña catheter was inserted. Urology was consulted and recommended Flomax and Proscar and a repeat voiding trial in 1 week. The left upper quadrant drain was removed on 12/25/2024. On 12/26/2024 kidney function was stable and the temporary dialysis catheter was removed. He was admitted to the transitional care unit at [facility] on 12/26/2024 for rehabilitation. On 01/03/2025 he had hyperkalemia and received Kayexalate. Potassium further increased at 7.4 and he was sent to the emergency department. He was treated with an albuterol aerosol, saline, insulin, Kayexalate, calcium gluconate and a bicarbonate. He had not been on a potassium restricted diet while on TCU. [facility] Did not have a bed so he was admitted to [facility] PCU to the hospitalist service. Following treatment for hyperkalemia in the emergency department the recheck potassium was 5.9. The following morning on 01/04/2025 it was once again up to 6.6. Hyperkalemia was once again aggressively treated. A CT scan of the abdomen and pelvis without oral or IV contrast was obtained on 01/03/2025. It showed a possible small abscess at the operative site and a repeat examination with oral contrast was recommended. CT of the abdomen and pelvis with IV contrast was done on 01/04/2025 and showed right anterior upper quadrant fluid and gas collection without intraluminal contrast material compatible with an intra-abdominal abscess. The hospitalist conferred with the general surgeon who felt that the area was small and he recommended IV antibiotics with a repeat CT scan in 2 to 3days. Nephrology was consulted on 01/05/2025 for persistently elevated potassium. He was started on a bicarb drip. Ensure was discontinued and he wasstarted on Nepro 4 times daily. There was no indication for CABLE LAYER at that time. He maintained good urine output. He had a repeat CT scan of the abdomen/pelvis on 01/07 which showed increased size of the right upper quadrant intra-abdominal abscess. General surgery recommended transfer back to [facility] for treatment. He was transferred to [facility] on 01/08. IR placed a drain in the RUQ and then aspirated 3 cc of exudate. On 01/10/25 the culture ofthe abscess drainage was not growing anything ( he had been on Zosyn). Zosyn wascontinued and on the day he was transferred to the acute inpt rehab unit at [facility] he was transitioned to Cipro. Surgery recommended a abscessogram as OP. He was transferred to the acute inpt rehab unit at [facility] on 01/11/25 for 3 hours of therapy daily to restore function/independence at or near his level prior to prolonged hospitalization with multiple complications starting 12/02/24. He needs follow up with cardiology for severe and consideration for TAVR. His last ECHO at [facility] was in 2020 and at that time he had a normal EF with no wall motion abnormalities and mild . Has never had a cardiac cath and denies having any stress tests. Did not know he had an MS at [facility] and that he now has a CM. Risk factors for CAD include DM,HTN, HLD, former tobacco use, + FH of CAD, male sex and age. He has hx of BL carotid stenosis and has had a CEA on the R in the past. At some point in the future he should have an evaluation for CAD. He is asymptomatic at this time. [facility] Medical History (Updated 01/12/25 @ 14:[address] Marie Patino, ) Diverticulosis Acute renal failure superimposed on stage 4 chronic kidney disease Diabetic polyneuropathy Iron deficiency anemia Irregular heart beat CKD (chronic kidney disease), stage IV Wears glasses Wears dentures BPH (benign prostatic hyperplasia) History of diverticulitis Former smoker Leg cramps History of echocardiogram Hypertrophic scar Carotid stenosis, left Sebaceous cyst Amaurosis fugax of right eye Sciatica Hyperlipidemia Osteoarthritis Hemorrhoid GERD (gastroesophageal reflux disease) HTN (hypertension) Home Medications ?Medication ?Instructions ?Recorded ?Last Taken ?Type aspirin 81 mg tablet,delayed 81 mg PO DAILY@0800 heart health 04/16/17 11/26/24 09:00 History release tamsulosin 0.4 mg capsule 0.4 mg PO QHS bph 04/16/17 0 01/10/25 History gabapentin 300 mg capsule 300 mg PO QHS PAIN 10/31/24 11/25/24 22:30 History acetaminophen 325 mg capsule 650 mg PO Q4H PRN fever o r pain 01/11/25 Unknown History carvedilol 6.25 mg tablet (Coreg) 6.25 mg PO BID blood pressure 01/11/25 01/11/25 History ciprofloxacin HCl 500 mg tablet 500 mg PO DAILY ATB 01/11/25 History finasteride 5 mg tablet (Proscar) 5 mg PO DAILY bph 01/11/25 History isosorbide dinitrate 5 mg tablet 10 mg PO TID bp 01/1101/11/25 History (Isordil Titradose) Allergy/AdvReac Type Severity Reaction Status Date / Time atorvastatin (From Lipitor) Allergy INTOLERANCE Verified 12/26/24 20:42 ezetimibe (From Zetia) Allergy MYALGIA Verified 12/26/24 20:42 pravastatin Allergy MYALGIAS Verified 12/26/24 20:42 simvastatin (From Zocor) Allergy INTOLERANCE Verified 12/26/24 20:42 sitagliptin (From Januvia) Allergy INTOLERANCE Verified 12/26/24 20:42 tetanus and diphtheria Allergy Rash Verified 12/01/24 22:00 toxoids Ythqnzh-FPB-JrD Reductase AdvReac Other Verified 12/01/24 22:00 Inhibitor (Gqwhojh-Irh-Pbo Reductase Inhibitor) Family History Father Diabetes Heart disease Myocardial infarction Mother CAD (coronary artery disease) Arthritis Surgical History (Updated 01/12/25 @ 14:[address] Marie Patino DO) H/O drainage of abscess History of partial colectomy History of lumbar fusion History of ileostomy History of right hemicolectomy History of right-sided carotid endarterectomy (~11/2017) History of umbilical hernia S/P ventral herniorrhaphy S/P inguinal hernia repair S/P colonoscopy Social History household members: spouse Smoking Status: Former smoker alcohol intake: never substance use type: does not use ROS Review of Systems ROS Unobtainable: other Details: Family has noticed some decline in memory sinceall this started in November. No problems with word finding. ; Denies due to encephalopathy, due to endotracheal tube, due to mental condition or due to mental status Constitutional Constitutional: Reports change in weight, difficulty sleeping, fatigue, weaknessand weight loss; Denies anorexia, chills, fever(s) or night sweats Eyes Eyes: Denies blurry vision, change in vision, double vision, eye pain, loss of vision, photophobia or ptosis ENT HEENT: Reports other Details: has partial plates in the upper jaw ; Denies abnormal hearing, dysphagia, headache(s), hearing loss, nasal congestion or sore throat Cardiovascular Cardiovascular: Reports dizziness, dyspnea on exertion, orthostatic symptoms andweakness in extremities; Denies chest pain, edema, lightheadedness, orthopnea, palpitations, paroxysmal nocturnal dyspnea, pedal edema, racing heartbeat or syncope Respiratory/Chest Respiratory/Chest: Reports shortness of breath with exertion; Denies cough, dyspnea, shortness of breath at rest or wheezing Gastrointestinal Gastrointestinal: Reports abdominal pain and other Details: Has an ileostomy ; Denies constipation, diarrhea, dyspepsia, hematemesis, hematochezia, nausea, odynophagia or vomiting Genitourinary Genitourinary: Reports difficulty urinating and other Details: Peña catheter ispresent and urine is pale yellow and clear. ; Denies dysuria, hematuria, nocturia, scrotal pain, urinary frequency, urinary hesitancy, urinary incontinence or urinary urgency Musculoskeletal Musculoskeletal: Reports other Details: He is c/o R ankle pain........having hissock on makes it hurt worse. Denies hx of gout but, he has stage IV CRF and has been on a lot of diuretics over the past month. ; Denies back pain, joint pain, joint swelling, neck pain or radiating pain into limb Neurologic Neurologic: Reports dizziness, weakness and other Details: generalized weakness. He has oropharyngeal dysphagia. ; Denies abnormal movements, abnormal speech, behavior changes, confusion, disequilibrium, focal weakness, headache(s), memory loss, other visual disturbances, paresthesias, radicular pain, restless legs, seizures, tremor(s) or vertigo Psychiatric Psychiatric: Denies anxiety, depression, homicidal ideation, hopelessness, suicidal ideation or visual hallucinations Endocrine Endocrinology: Denies change in body appearance, polydipsia or polyuria Hematologic/Lymphatic Hematologic/Lymphatic: Denies easy bleeding, easy bruising or lymphadenopathy Allergic/Immunologic Allergic/Immunologic: Denies rhinitis, eczemia or asthma Vital Signs Vital Signs Vital Signs: 01/11/25 15:44 01/11/25 16:04 Temperature 98.2 F Temperature Source Temporal Pulse Rate 64 Respiratory Rate 16 Respiratory Effort Normal Non-Labored Respiratory Depth Normal Respiratory Pattern Normal Blood Pressure 158/66 H Blood Pressure Mean 96 Blood Pressure Source Monitor Blood Pressure Position Semi-Fowlers Blood Pressure Location Right Arm Pulse Ox 100 Oxygen Delivery Method Room Air Room Air Weight Weight: 148 lb 9.465 oz Body Mass Index (BMI) 24.7 Physical Exam Const alert, oriented x3 and no apparent distress Constitutional Narrative: Making good eye contact, appropriate. Pleasant with flat affect. Looks tired. Tells me that he is not sleeping well at night.......can not stay asleep. General Appearance: cooperative and comfortable Nutritional Appearance: thin HEENT HEENT Narrative: Dry MM with no evidence of thrush. Head and Scalp: normal to inspection Eyes PERRL, EOMs intact bilaterally, conjunctivae normal and no scleral icterus Eyes Narrative: No discharge from the eyes and no mattering of the eyelashes. No visual field cuts. No nystagmus. Neck no lymphadenopathy, supple, no JVD and No nodes Neck Narrative: BL carotid bruits vs radiation of the MM. General: trachea midline Chest Chest: symmetrical chest wall rise Resp normal respiratory effort and no use of accessory muscles Resp Narrative: Not tachypneic and no conversational dyspnea. Coarse crackles in both bases posteriorly. No wheezing. No coughing with deep breath. Effort and Inspection: able to speak in complete sentences Cardio regular rate, regular rhythm, S1 normal heart sound, S2 normal heart sound, no rub and no gallops Cardio Narrative: No ectopy. Loud holosystolic MM at the second RICS with radiation to the LVOT, LLSB, apex and into both carotids. Soft systolic MM in the Left axillary area. GI GI Narrative: No guarding with palpation. Mild tenderness in the area of the drain. BS's present in all quadrants. ND, soft. Stoma looks good and there is stool in the pouch. no CVA tenderness Narrative: No suprapubic tenderness. Urine in the Peña is pale yellow and clear. No hematuria. Bladder / Kidney Exam: catheter in place Back/Spine no CVA tenderness Back/Spine Narrative: Denies any radicular pain in the legs. Extremity no clubbing, cyanosis or edema and no calf tenderness Extremity Narrative: He has pain in the R ankle........with light touch but, there is no erythema andno openings in the skin and no marked increase in warmth to touch. General Extremity: Negative for carpodedal spasm or mottling Skin Skin Narrative: No rashes, no skin breakdown. Neuro oriented x3, CN's II-XII intact bilaterally and no focal motor deficits Neuro Narrative: Generalized weakness and he fatigues easily. Psych Psych Narrative: Appropriate, making good eye contact. Able to stay on topic and focus. No flight of ideas. Does not appear anxious. Affect is flat. Conversant and relating well to staff. Having trouble sleeping at night and his appetite is poor. Appearance: appropriate and well kempt Attitude: calm and engaged Activity / Motor Behavior: appropriate eye contact Speech: normal speech Results Lab / Micro Data 01/12/25 04:52 01/12/25 04:52 Assessment & Plan Assessment/Plan (1) Debility: (2) History of right hemicolectomy: (3) History of ileostomy: (4) History of partial colectomy: (5) Postoperative abscess: (6) H/O drainage of abscess: (7) Acute renal failure superimposed on stage 4 chronic kidney disease: QUALIFIERS: Acute renal failure type: unspecified Qualified Code(s): N17.9 - Acute kidney failure, unspecified; N18.4 - Chronic kidney disease, stage 4 (severe) (8) CKD (chronic kidney disease), stage IV: (9) Orthostatic hypotension: (10) Anemia: QUALIFIERS: Anemia type: unspecified type Qualified Code(s): D64.9 - Anemia, unspecified PLAN: Due to CRF stage IV, acute blood loss anemia, infection, frequent lab draws hx of iron deficiency, etc (11) Dysphagia, oropharyngeal: (12) Cognitive dysfunction: (13) Other severe protein-calorie malnutrition: (14) Hyponatremia: (15) Hypomagnesemia: (16) Myocardial infarction due to demand ischemia: PLAN: Multiple wall motion abnormalities.......has never seen a children's counselor andhas multiple RF's for CAD and has had BL carotid stenosis. Needs at some point to be evaluated for CAD. (17) Cardiomyopathy: QUALIFIERS: Cardiomyopathy type: unspecified Qualified Code(s): I42.9 - Cardiomyopathy, unspecified PLAN: EF is 35% +/- 5% (18) Severe aortic stenosis: (19) Left atrial enlargement: (20) Mild pulmonary hypertension: PLAN: PA systolic estimated at 44. (21) History of lumbar fusion: (22) Urinary retention: (23) BPH (benign prostatic hyperplasia): QUALIFIERS: Lower urinary tract symptom presence: symptoms present Lower urinary tract symptom detail: urinary retention Qualified Code(s): N40.1- Benign prostatic hyperplasia with lower urinary tract symptoms; R33.8 - Other retention of urine (24) Essential (primary) hypertension: (25) History of diabetes mellitus: (26) History of right-sided carotid endarterectomy: (27) Carotid stenosis, left: (28) Status post lumbar spinal fusion: (29) Diverticulosis: (30) Hyperlipidemia: QUALIFIERS: Hyperlipidemia type: unspecified Qualified Code(s): E78.5 - Hyperlipidemia, unspecified (31) Depression: QUALIFIERS: Depression Type: reactive depression Qualified Code(s): F32.9 - Major depressive disorder, single episode, unspecified (32) Acute right ankle pain: PLAN: Suspect gout PLAN: Plan PLAN PT for gait stability OT for ADL's ST for evaluation Analgesics as needed Bowel protocol Fall precautions Assess for Anxiety/Depression GI prophylaxis -not needed at this time DVT prophylaxis with heparin 5000 units SQ every 12 hours Follow up with general surgery, cardiology, PCP, Dr. Colon following DC from [facility] AM lab including CMP, CBC, Mag, uric acid and Phos ordered Accu-Cheks AC and at bedtime Obtain results of echocardiogram done at [facility] and also the cardiology consult/notes 75 minutes spent reviewing past diagnostic tests, lab results, vital sign trends, medical history, medications, all additional paperwork sent by the previous hospital, and ordering medications, examining the the patient and completing documentation. Charges/Coding Visit Charges Inpatient E&M: 20004 Init Hosp L3 01/12/25 1431 <Electronically signed by Marie Patino DO> Cosigner Signature (if applicable): CC: DEANNA Coronado; Dr. Bill Colon MD; Dr. Marie Patino DO~ Signed [facility] Work Phone: 1(364) 296-733206-19-2025 [facility]06-19-2025 [facility]06-18-2025 [facility] 01-10-2025 [facility]06-17-2025 [facility]06-17-2025 [facility]-16-2025 [facility]06-15-2025 Progress note [facility] Date/Time January 07, 2025 1:10 pm [facility] Medical Records Department [address] [place] [address] Progress Note - Hospitalist 01/07/25 1041 MR#: [id number] Acct: [id number] Name: JOAO BARNETT Rep #:[id number] : 1945 79 From: Jeremy leone DO PCP: DEANNA Franklin Status:ADM IN Location: [place] [address] Reason for Visit Reason for Visit: Diagnoses Hyperkalemia (01/03/25) Chronic kidney disease, stage 4 (severe) (01/03/25) Subjective Subjective Saw patient at bedside this morning. Patient appeared similar today to previousdays. Was mildly fatigued appearing but otherwise sitting back comfortably in bed in no acute distress. Patient was found to have significant bladder retention with over 500 cc of urine in bladder earlier this morning so Peña catheter was replaced. He reports improvement in abdominal discomfort since then. Did have some fevers and chills yesterday morning but has not had any recurrence of this since then. No other new concerns this morning. Objective Data Objective Data Vital Signs: Vital Signs Temp Pulse Resp BP Pulse Ox O2 Del Method O2 Flow Rate 97.5 F L 110 H 18 96/56 L 100 Nasal Cannula 2 01/07/25 09:46 01/07/25 09:46 01/07/25 09:46 01/07/25 09:46 01/07/25 09:46 01/07/25 09:46 01/07/25 09:46 Oxygen Flow Rate (L/min) 2 Oxygen Delivery Method Nasal Cannula Weight: 62.868 kg Body Mass Index (BMI) 22.4 Intake & Output: Intake and Output for Last 24 Hours 01/05/25 01/06/25 01/07/25 23:59 23:59 23:59 Intake Total 372.00 / 372.00 5463 / 5513 / Output Total 1800 / 1800 520 / 1095 1175 / 1175 Balance -1428.00 / -1428.00 4943 / 4418 835.42 / 835.42 Medical Nutrition Assessment Dietitian: Malnutrition Criteria Met Start: 01/03/25 16:33 Freq: Status: Active Protocol: Document 01/06/25 14:21 RMA (Rec: 01/06/25 14:21 RMA [id number]) Nutrition Malnutrition Evidence of Yes Malnutrition Exists Malnutrition (severe Acute Illness/Injury ): Evidenced By Suboptimal Energy Intake (Severe),Weight Loss (Severe), Physical Changes (Moderate) Clinical Problem Acute Disease or Injury Related Malnutrition Etiology Severe protein-calorie malnutrition in the context of acute on chronic disease related to inadequate oral/ energy intake and dysphagia Signs/Symptoms as evidenced by PO meeting <50% of estimated nutrition needs x 1 month, 15% unintentional weight loss x 1 month, and moderate wasting in clavicle and orbitals. Status Active Problem Swallowing Difficulty Etiology likely related to recent intubation Signs/Symptoms as evidenced by need for mechanically altered diet to minced/moist texture with mildly thickened liquids to nectar. Status Active Problem Recommendation Dietitian Will adjust therapeutic diet to 1800 calorie/consistent Recommendations/ carb; sodium-restricted; potassium-restricted with Changes consistency/texture as per AQUACULTURIST. Will d/c PO Nepro with medpass and add 120mL vanilla Nepro Carb Steady w/ meals as discussed with pt/family. Liberalize diet as needed depending on renal labs and blood glucose levels. Lab / Micro Data 01/07/25 11:55 01/07/25 11:55 Labs: Laboratory Results - last 24 hr 01/06/25 08:01: POC Glucose 239 H 01/06/25 11:35: POC Glucose 215 H 01/06/25 17:03: POC Glucose 221 H 01/06/25 21:28: POC Glucose 197 H 01/06/25 23:00: Urine Color Yellow, Urine Clarity Cloudy, Urine pH 6.5, Ur Specific Donora 1.010, Urine Protein 100 H, Urine Glucose (UA) Normal, Urine Ketones Negative, Urine Occult Blood 250 H, Urine Nitrite Positive H, Urine Bilirubin Negative, Urine Urobilinogen Normal, Ur Leukocyte Esterase 500 H, Urine RBC 0 SEEN, Urine WBC >100 SEEN, Ur Squamous Epith Cells 0 SEEN, Urine Bacteria 3+, Urine Mucus 2+ 01/07/25 03:58: POC Glucose 216 H 01/07/25 04:35: WBC 6.1, RBC 2.39 L, Hgb 7.0 L, Hct 21.1 L, MCV 88.3, MCH 29.3, MCHC 33.2, RDW Std Deviation 46.9 H, RDW Coeff of Disha 14.5, Plt Count 274, MPV 10.1, Sodium 131 L, Potassium 4.0, Chloride 88 L, Carbon Dioxide 30.8, Anion Gap12, BUN 39 H, Creatinine 2.85 H, Estim Creat Clear Calc 19.00 L, Est GFR (MDRD) Non-Af 22 L, BUN/Creatinine Ratio 13.8, Glucose 217 H, Calcium 7.5 L 01/07/25 06:15: POC Glucose 260 H 01/07/25 08:20: Blood Type O POSITIVE, Antibody Screen NEGATIVE, Crossmatch See Detail Radiography Diagnostic Testing: Radiology Impression Chest X-Ray 01/07/25 04:35 IMPRESSION: 1. Interstitial opacities in the bilateral lungs which may relate to infiltrates. 2. Mild blunting of the left costophrenic angle suggestive of asmall left pleural effusion. Reading Location: [facility] Abdomen CT 01/07/25 07:54 IMPRESSION: 1. Slight increased size of the right upper quadrant intra-abdominal abscess. 2. Development of small bilateral pleural effusions. Reading Location: [facility] Rhythm Strip Rhythm Strip: Sinus Rhythm Rate: 98 Ectopy: None Physical Exam Const alert, oriented x3, no apparent distress and average body habitus Constitutional Narrative: Elderly male, mildly fatigued but energy improved from admission, chronically ill-appearing, otherwise sitting back comfortably in bed, answering questions appropriately, in no acute distress. Stable. General Appearance: cooperative and comfortable HEENT normocephalic, head/scalp atraumatic, hearing grossly normal bilaterally, nasal mucous membranes and turbinates normal and moist oral mucous membranes Eyes PERRL, EOMs intact bilaterally and conjunctivae normal Neck full ROM Chest inspection of chest normal Resp normal respiratory effort, normal air movement, no use of accessory muscles and clear to auscultation bilaterally Cardio regular rate, regular rhythm, no murmurs and peripheral pulses 2+ throughout GI GI Narrative: Colostomy bag in place with normal-appearing stool output. Mild diffuse tenderness to palpation but abdomen otherwise soft and nondistended. Stable. Back/Spine normal ROM Extremity normal to inspection, full ROM and no pedal edema Skin no rashes or lesions noted Psych mental status grossly normal Assessment & Plan Assessment/Plan (1) Acute hyperkalemia: (2) Postoperative intra-abdominal abscess: PLAN: Plan Patient is a 79-year-old male who presented to [facility] ED on 01/03/2025 with acute hyperkalemia. 1. Acute hyperkalemia with non anion gap metabolic acidosis, improved ? Nephrology following. Potassium 7.4 on admit. EKG showed peaked T waves and apparent mild QRS widening. Treated medically in the ED with significant improvement to 6.2 on recheck. Potassium elissa of 5.4 on the evening of 01/04 but unfortunately has worsened again each morning. Initiated on sodium bicarb drip on 01/05 and patient had resolution of hyperkalemia and acidosis. Most recent BMP with potassium 4.0 and bicarb 30 on 01/07. Bicarb drip discontinued on 01/07. Continue low potassium diet with no Ensure protein drinks. Has had good urine output, no acute indication for dialysis. Continue to monitor BMP daily. 2. Postoperative abscess in setting of recent bowel perforation s/p hemicolectomy with ostomy placement ? See Dr. Londono's note from 12/26 for further details. In short, patient presentedon 12/02 here with abdominal pain and was found to have free air under the diaphragm. Was emergently transferred to [facility] And underwent ex lap with right hemicolectomy with bowel anastomosis. Did well from a bowel standpoint postoperatively. Since admission here has had mild diffuse abdominalpain but no other infectious symptoms and no change in colostomy output. However given his ongoing hyperkalemia and mild bowel pain, CT abdomen pelvis without contrast was obtained and showed concern for possible abscess at anastomosis site. CT abdomen pelvis with oral contrast on 01/04 showed a small right anterior upper quadrant fluid and gas collection without intraluminal contrast compatible with intra-abdominal abscess. Discussed case with general surgery here who recommended initiation of IV antibiotics and repeat CT scan in 2 to [address] abdomen pelvis with oral contrast on 01/07 showed increased size of the right upper quadrant intra-abdominal abscess. Discussed with surgery who recommended transfer back to [place] for further management. Transfer initiated on 01/07. Continue IV Zosyn. 3. Recent severe PRISCILA with uremia requiring temporary dialysis, mild creatinine elevation in setting of CKD stage IV ? Recently required [address] [facility] reportedly for significant uremia. Creatinine 2.2 on admission here with BUN 53. Potassium improved as noted above. Patient has had slight worsening of his creatinine over the past few days, most recent creatinine 2.88 on 01/07. Is volume overloaded on exam so per nephrology, will spot diuresis for now as needed. Continue to monitor dailyBMP and urine output. 4. Chronic anemia ? Hemoglobin 8.6 on arrival to TCU here on 12/28. Had remained stable around 8-9 during hospitalization. Dropped to 7.0 on morning of 01/07 but suspect this was secondary to heavy IV fluid resuscitation; repeat hemoglobin 7.9 on recheck on morning of 01/07. No evidence of blood loss. Continue to monitor CBC daily. 5. Recently diagnosed HFrEF with severe aortic stenosis ? See Dr. Londono's note from 12/26 for further details. Echo at [facility] Showed EF 30% and severe aortic stenosis. Recommendation was for TAVR evaluation once medically improved. Has been stable on Coreg 6.25 mg twice daily and isosorbide dinitrate 10 mg 3 times daily. Will continue these medications at this time. 6. Type 2 diabetes mellitus with diabetic neuropathy ? Hold home glimepiride and metformin. Continue treatment with sliding scale insulin with meals while inpatient, adjust as needed. Continue home gabapentin. 7. 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 Peña catheter placed during recent hospitalization and plan was for voiding trial in the TCU. Peña catheter removed on 01/05 for voiding trial; unfortunately patient has significant urinary retention on multiple occasions soFoley catheter was replaced on 01/07. Continue home finasteride and tamsulosin. 8. Acute on chronic debility ? PT/OT/case management following. Patient presented here from the TCU and [facility] for discharge back to TCU prior to need for transfer to [place] for further management. DVT prophylaxis: Heparin subcu CODE STATUS: Full code, verified Expected disposition: Transfer to [facility] Total clinical time spent by myself addressing the patient's medical issues, reviewing all the data, and collaborating with patient's care team: 50 minutes. Charges/Coding Visit Charges Inpatient E&M: 14823 Subs Hosp L3 01/07/25 1310 <Electronically signed by Jeremy Faith DO> Cosigner Signature (if applicable): CC: ~ Signed [facility] Work Phone: 1(239) 936-703906-15-2025 Progress note [facility] Medical Records Department [address] [place] [address] Progress Note - Hospitalist 01/07/25 1041 MR#: [id number] Acct: [id number] Name: JOAO BARNETT Rep #:[id number] : 1945 79 From: Jeremy leone DO PCP: DEANNA Franklin Status:ADM IN Location: U [id number]- 1 Reason for Visit Reason for Visit: Diagnoses Hyperkalemia (01/03/25) Chronic kidney disease, stage 4 (severe) (01/03/25) Subjective Subjective Saw patient at bedside this morning. Patient appeared similar today to previousdays. Was mildly fatigued appearing but otherwise sitting back comfortably in bed in no acute distress. Patient was found to have significant bladder retention with over 500 cc of urine in bladder earlier this morning so Peña catheter was replaced. He reports improvement in abdominal discomfort since then. Did have some fevers and chills yesterday morning but has not had any recurrence of this since then. No other new concerns this morning. Objective Data Objective Data Vital Signs: Vital Signs Temp Pulse Resp BP Pulse Ox O2 Del Method O2 Flow Rate 97.5 F L 110 H 18 96/56 L 100 Nasal Cannula 2 01/07/25 09:46 01/07/25 09:46 01/07/25 09:46 01/07/25 09:46 01/07/25 09:46 01/07/25 09:46 01/07/25 09:46 Oxygen Flow Rate (L/min) 2 Oxygen Delivery Method Nasal Cannula Weight: 62.868 kg Body Mass Index (BMI) 22.4 Intake & Output: Intake and Output for Last 24 Hours 01/05/25 01/06/25 01/07/25 23:59 23:59 23:59 Intake Total 372.00 / 372.00 5463 / 5513 / Output Total 1800 / 1800 520 / 1095 1175 / 1175 Balance -1428.00 / -1428.00 4943 / 4418 835.42 / 835.42 Medical Nutrition Assessment Dietitian: Malnutrition Criteria Met Start: 01/03/25 16:33 Freq: Status: Active Protocol: Document 01/06/25 14:21 RMA (Rec: 01/06/25 14:21 RMA [id number]) Nutrition Malnutrition Evidence of Yes Malnutrition Exists Malnutrition (severe Acute Illness/Injury ): Evidenced By Suboptimal Energy Intake (Severe),Weight Loss (Severe), Physical Changes (Moderate) Clinical Problem Acute Disease or Injury Related Malnutrition Etiology Severe protein-calorie malnutrition in the context of acute on chronic disease related to inadequate oral/ energy intake and dysphagia Signs/Symptoms as evidenced by PO meeting <50% of estimated nutrition needs x 1 month, 15% unintentional weight loss x 1 month, and moderate wasting in clavicle and orbitals. Status Active Problem Swallowing Difficulty Etiology likely related to recent intubation Signs/Symptoms as evidenced by need for mechanically altered diet to minced/moist texture with mildly thickened liquids to nectar. Status Active Problem Recommendation Dietitian Will adjust therapeutic diet to 1800 calorie/consistent Recommendations/ carb; sodium-restricted; potassium-restricted with Changes consistency/texture as per AQUACULTURIST. Will d/c PO Nepro with medpass and add 120mL vanilla Nepro Carb Steady w/ meals as discussed with pt/family. Liberalize diet as needed depending on renal labs and blood glucose levels. Lab / Micro Data 01/07/25 11:55 01/07/25 11:55 Labs: Laboratory Results - last 24 hr 01/06/25 08:01: POC Glucose 239 H 01/06/25 11:35: POC Glucose 215 H 01/06/25 17:03: POC Glucose 221 H 01/06/25 21:28: POC Glucose 197 H 01/06/25 23:00: Urine Color Yellow, Urine Clarity Cloudy, Urine pH 6.5, Ur Specific Donora 1.010, Urine Protein 100 H, Urine Glucose (UA) Normal, Urine Ketones Negative, Urine Occult Blood 250 H, Urine Nitrite Positive H, Urine Bilirubin Negative, Urine Urobilinogen Normal, Ur Leukocyte Esterase 500 H, Urine RBC 0 SEEN, Urine WBC >100 SEEN, Ur Squamous Epith Cells 0 SEEN, Urine Bacteria 3+, Urine Mucus 2+ 01/07/25 03:58: POC Glucose 216 H 01/07/25 04:35: WBC 6.1, RBC 2.39 L, Hgb 7.0 L, Hct 21.1 L, MCV 88.3, MCH 29.3, MCHC 33.2, RDW Std Deviation 46.9 H, RDW Coeff of Disha 14.5, Plt Count 274, MPV 10.1, Sodium 131 L, Potassium 4.0, Chloride 88 L, Carbon Dioxide 30.8, Anion Gap12, BUN 39 H, Creatinine 2.85 H, Estim Creat Clear Calc 19.00 L, Est GFR (MDRD) Non-Af 22 L, BUN/Creatinine Ratio 13.8, Glucose 217 H, Calcium 7.5 L 01/07/25 06:15: POC Glucose 260 H 01/07/25 08:20: Blood Type O POSITIVE, Antibody Screen NEGATIVE, Crossmatch See Detail Radiography Diagnostic Testing: Radiology Impression Chest X-Ray 01/07/25 04:35 IMPRESSION: 1. Interstitial opacities in the bilateral lungs which may relate to infiltrates. 2. Mild blunting of the left costophrenic angle suggestive of asmall left pleural effusion. Reading Location: [facility] Abdomen CT 01/07/25 07:54 IMPRESSION: 1. Slight increased size of the right upper quadrant intra-abdominal abscess. 2. Development of small bilateral pleural effusions. Reading Location: [id number] Rhythm Strip Rhythm Strip: Sinus Rhythm Rate: 98 Ectopy: None Physical Exam Const alert, oriented x3, no apparent distress and average body habitus Constitutional Narrative: Elderly male, mildly fatigued but energy improved from admission, chronically ill-appearing, otherwise sitting back comfortably in bed, answering questions appropriately, in no acute distress. Stable. General Appearance: cooperative and comfortable HEENT normocephalic, head/scalp atraumatic, hearing grossly normal bilaterally, nasal mucous membranes and turbinates normal and moist oral mucous membranes Eyes PERRL, EOMs intact bilaterally and conjunctivae normal Neck full ROM Chest inspection of chest normal Resp normal respiratory effort, normal air movement, no use of accessory muscles and clear to auscultation bilaterally Cardio regular rate, regular rhythm, no murmurs and peripheral pulses 2+ throughout GI GI Narrative: Colostomy bag in place with normal-appearing stool output. Mild diffuse tenderness to palpation butabdomen otherwise soft and nondistended. Stable. Back/Spine normal ROM Extremity normal to inspection, full ROM and no pedal edema Skin no rashes or lesions noted Psych mental status grossly normal Assessment & Plan Assessment/Plan (1) Acute hyperkalemia: (2) Postoperative intra-abdominal abscess: PLAN: Plan Patient is a 79-year-old male who presented to [facility] ED on 01/03/2025 with acute hyperkalemia. 1. Acute hyperkalemia with non anion gap metabolic acidosis, improved ? Nephrology following. Potassium 7.4 on admit. EKG showed peaked T waves and apparent mild QRS widening. Treated medically in the ED with significant improvement to 6.2 on recheck. Potassium elissa of 5.4 on the evening of 01/04 but unfortunately has worsened again each morning. Initiated on sodium bicarb drip on 01/05 and patient had resolution of hyperkalemia and acidosis. Most recent BMP with potassium 4.0 and bicarb 30 on 01/07. Bicarb drip discontinued on 01/07. Continue low potassium diet with no Ensure protein drinks. Has had good urine output, no acute indication for dialysis. Continue tomonitor BMP daily. 2. Postoperative abscess in setting of recent bowel perforation s/p hemicolectomy with ostomy placement ? See Dr. Londono's note from 12/26 for further details. In short, patient presentedon 12/02 here with abdominal pain and was found to have free air under the diaphragm. Was emergently transferred to [facility] And underwent ex lap with right hemicolectomy with bowel anastomosis. Did well from a bowelstandpoint postoperatively. Since admission here has had mild diffuse abdominalpain but no other infectious symptoms and no change in colostomy output. However given his ongoing hyperkalemia and mildbowel pain, CT abdomen pelvis without contrast was obtained and showed concern for possible abscessat anastomosis site. CT abdomen pelvis with oral contrast on 01/04 showed a small right anterior upper quadrant fluid and gas collection without intraluminal contrast compatible with intra- abdominal abscess. Discussed case with general surgery here who recommended initiation of IV antibiotics and repeat CT scan in 2 to [address] abdomen pelvis with oral contrast on 01/07 showed increased size of the right upper quadrant intra-abdominal abscess. Discussed with surgery who recommended transfer back to [place] for further management. Transfer initiated on 01/07. Continue IV Zosyn. 3. Recent severe PRISCILA with uremia requiring temporary dialysis, mild creatinine elevation in settingof CKD stage IV ? Recently required [address] [facility] reportedly for significant uremia. Creatinine 2.2 on admission here with BUN 53. Potassium improved as noted above. Patient has had slight worseningof his creatinine over the past few days, most recent creatinine 2.88 on 01/07. Is volume overloadedon exam so per nephrology, will spot diuresis for now as needed. Continue to monitor dailyBMP and urine output. 4. Chronic anemia ? Hemoglobin 8.6 on arrival to TCU here on 12/28. Had remained stable around 8-9 during hospitalization. Dropped to 7.0 on morning of 01/07 but suspect this was secondary to heavy IV fluid resuscitation; repeat hemoglobin 7.9 on recheck on morning of 01/07. No evidence of blood loss. Continue to monitor CBC daily. 5. Recently diagnosed HFrEF with severe aortic stenosis ? See Dr. Londono's note from 12/26 for further details. Echo at [facility] Showed EF 30% and severe aortic stenosis. Recommendation was for TAVR evaluation once medically improved. Has been stable on Coreg 6.25 mg twice daily and isosorbide dinitrate 10 mg 3 times daily. Will continue these medications at this time. 6. Type 2 diabetes mellitus with diabetic neuropathy ? Hold home glimepiride and metformin. Continue treatment with sliding scale insulin with meals while inpatient, adjust as needed. Continue home gabapentin. 7. 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 Peña catheter placed during recent hospitalization and plan was for voiding trial in the TCU. Peña catheter removed on 01/05 for voiding trial; unfortunately patient has significant urinary retention on multiple occasions soFoley catheter was replaced on 01/07. Continue home finasteride and tamsulosin. 8. Acute on chronic debility ? PT/OT/case management following. Patient presented here from the TCU and planwas for discharge back to TCU prior to need for transfer to [place] for further management. DVT prophylaxis: Heparin subcu CODE STATUS: Full code, verified Expected disposition: Transfer to [facility] Total clinical time spent by myself addressing the patient's medical issues, reviewing all the data, and collaborating with patient's care team: 50 minutes. Charges/Coding Visit Charges Inpatient E&M: 78501 [facility] Hosp L3 01/07/25 1310 Cosigner Signature (if applicable): CC: ~ Signed [facility]06-15-2025 Radiology Diagnostic study note [facility] Imaging Services [address] [place] [address] [id number] Abdomen/Pel W ORAL Cont Only MR#: [id number] Acct: [id number] Name: JOAO BARNETT Rep #: [id number] 4 : 1945 M 79 From: Rachele Meyers MD PCP: DEANNA Franklin Status: ADM IN Study:Abdomen/Pel W ORAL Cont Only Date of Ex am: 01/07/25 Exam# [id number] Ordering Dr: Jeremy Tirado DO PROCEDURE: ABDOMEN/PEL W ORAL CONT ONLY 01/07/2025 REASON FOR EXAM: REPEAT EVAL FOR ABSCESS TECHNIQUE: ABDOMEN/PEL W ORAL CONT ONLY Noncontrast technique limits evaluation of the abdominal and pelvic viscera. Coronal and Sagittal reconstruction series were provided. One or more dose reduction techniques were used (e.g., Automated exposure control, adjustment of the mA and/or kV according to patient size, use of iterative reconstruction technique). ORAL CONTRAST TYPE: Gastrografin COMPARISON: CT abdomen pelvis 01/04/2025. FINDINGS: Since comparison examination, there is slight increased size of the thick rimmedfluid and gas collection subjacent to the surgical anastomosis within the right upper quadrant (series 2, image 83). Persistent stranding andedema within the central mesentery and right upper quadrant. Interval development of small bilateral pleural effusions with adjacent atelectasis. Otherwise stable examination. See recent CT abdomen pelvis for additional findings. CT/Abdomen/Pel W ORAL Cont Only IMPRESSION: 1. Slight increased size of the right upper quadrant intra-abdominal abscess. 2. Development of small bilateral pleural effusions. Reading Location: [id number] CC: WINDOW ASSEMBLER-C [facility]; Dr. Jeremy Faith DO ~ Cardiovascular Invasive Specialist: Signed [facility]06-15-2025 Progress note Author Jeanne Pressley [facility] Note Date/Time January 07, 2025 4:17 am [facility] Medical Records Department [address] [place] [address] Progress Note - Hospitalist 01/06/252151 MR#: [id number] Acct: [id number] Name: JOAO BARNETT Rep #:[id number] : 1945 79 From: Jeanne Pressley DO PCP: DEANNA Franklin Status:ADM IN Location: [place] [address] Hospitalist Note Called by the floor due to relative hypotension. Has Isordil ordered to be given tonight. Will hold in light of blood pressures. Did receive carvedilol 6.25 earlier today. Could consider reducing the dose tomorrow but will leave for primary attending to adjust medications. Also having urinary retention withgreater than 500 cc in his bladder with decreased urine output. Peña was removed yesterday with poor urine output since that point in time. The patient has had problems with this over time. Will replace Peña and recommend outpatient follow-up with urology after discharge. 01/06/252153 <Electronically signed by Jeanne Pressley DO> Cosigner Signature (if applicable): CC: ~ Signed ADDENDUM by Dr. Jeanne Pressley DO on 01/07/25 at 0417 Addendum I was called again on Mr. Barnett. Nursing went to get vitals and he was mildly hypoxic so was placed on 2 L nasal cannula. BP was still soft at 94/58 and the patient felt shaky and had chills but was afebrile. Mildly tachycardic. Stateshis body feels off but unable to tell us what way. Symptoms were vague. Nursing order EKG. Morning labs will be drawn early. Will obtain chest x-ray. 01/07/257<Electronically signed by Jeanne Pressley DO> Cosigner Signature (if applicable): cc: ~* Signed [facility] Work Phone: 1(995) 108-304106-15-2025 Radiology Diagnostic study note [facility] Imaging Services [address] [place] [address] Chest 1 View (Portable) MR#: [id number] Acct: [id number] Name: JOAO BARNETT Rep #: [id number] 1 : 1945 M 79 From: Zhou Keane DO PCP: DEANNA Franklin Status: ADM IN Study:Chest 1 View (Portable) Date of Exam: 01/07/25 Exam# [id number] Ordering Dr: Kenya Pressley DO PROCEDURE: CHEST 1 VIEW (PORTABLE) 01/07/2025 REASON FOR EXAM: Shortness of breath. TECHNIQUE: Frontal view of the chest. COMPARISON: Chest x-ray from 01/03/2025. FINDINGS: Cardiac size and pulmonary vasculature are within normal limits. There are interstitial opacities bilaterally greater in the left lower lobe. There is mild blunting of the left costophrenic angle suggestive of a small left pleural effusion. No pneumothorax is present. Old left-sided rib fractures are present. RAD/Chest 1 View (Portable) IMPRESSION: 1. Interstitial opacities in the bilateral lungs which may relate to infiltrates. 2. Mild blunting of the left costophrenic angle suggestive of asmall left pleural effusion. Reading Location: [facility] CC: WINDOW ASSEM[employer] [facility]; Dr. Jeanne Pressley DO ~ Cardiovascular Invasive Specialist: Signed [facility]06-15-2025 Progress note [facility] Medical Records Department [address] [place] [address] Progress Note - Hospitalist 01/06/25 215 MR#: [id number] Acct: [id number] Name: JOAO BARNETT Rep #:[id number] : 1945 79 From: Jeanne Pressley DO PCP: DEANNA Franklin Status:ADM IN Location: [place] [address] Hospitalist Note Called by the floor due to relative hypotension. Has Isordil ordered to be given tonight. Will holdin light of blood pressures. Did receive carvedilol 6.25 earlier today. Could consider reducing thedose tomorrow but will leave for primary attending to adjust medications. Also having urinary retention withgreater than 500 cc in his bladder with decreased urine output. Peña was removed yesterdaywith poor urine output since that point in time. The patient has had problems with this over time. Will replace Peña and recommend outpatient follow-up with urology after discharge. 01/06/252153 Cosigner Signature (if applicable): CC: ~ Signed ADDENDUM by Dr. Jeanne Pressley DO on 01/07/25 at 0417 Addendum I was called again on Mr. Barnett. Nursing went to get vitals and he was mildly hypoxic so was placedon 2 L nasal cannula. BP was still soft at 94/58 and the patient felt shaky and had chills but was afebrile. Mildly tachycardic. Stateshis body feels off but unable to tell us what way. Symptoms were vague. Nursing order EKG. Morning labs will be drawn early. Will obtain chest x-ray. 01/07/25416 Cosigner Signature (if applicable): cc: ~* Signed [facility]06-14-2025 Progress note Author Sindi Dodd tr [facility] Note Date/Time January 06, 2025 5:28 pm [facility] Medical Records Department [address] [place] [address] Progress Note - Nephrology 01/06/25 1648 MR#: [id number] Acct: [id number] Name: JOAO BARNETT Rep #:[id number] 1 : 1945 79 From: Sindi patterson MD PCP: DEANNA Franklin Status:ADM IN Location: [place] [address] Subjective Subjective Following for hyperkalemia and CKD. Patient denies chest pain or shortness of breath. He complains of right hip pain. There is no nausea or vomiting. Objective Data Objective Data Vital Signs: Vital Signs Temp Pulse Resp BP Pulse Ox O2 Del Method 97.7 F L 107 H 17 104/74 97 Room Air 01/06/25 15:52 01/06/25 15:52 01/06/25 15:52 01/06/25 15:52 01/06/25 15:52 01/06/25 15:52 Oxygen Delivery Method Room Air Weight: 62.868 kg Body Mass Index (BMI) 22.4 Intake & Output: Intake and Output for Last 24 Hours 01/04/25 01/05/25 01/06/25 23:59 23:59 23:59 Intake Total 3550 / 3550 372.00 / 372.00 3278 / 3278 Output Total 2510 / 3010 1800 / 1800 520 / 520 Balance 1040 / 540 -1428.00 / -1428.00 2758 / 2758 Medical Nutrition Assessment Dietitian: Malnutrition Criteria Met Start: 01/03/25 16:33 Freq: Status: Active Protocol: Document 01/06/25 14:21 RMA (Rec: 01/06/25 14:21 RMA [id number]) Nutrition Malnutrition Evidence of Yes Malnutrition Exists Malnutrition (severe Acute Illness/Injury ): Evidenced By Suboptimal Energy Intake (Severe),Weight Loss (Severe), Physical Changes (Moderate) Clinical Problem Acute Disease or Injury Related Malnutrition Etiology Severe protein-calorie malnutrition in the context of acute on chronic disease related to inadequate oral/ energy intake and dysphagia Signs/Symptoms as evidenced by PO meeting <50% of estimated nutrition needs x 1 month, 15% unintentional weight loss x 1 month, and moderate wasting in clavicle and orbitals. Status Active Problem Swallowing Difficulty Etiology likely related to recent intubation Signs/Symptoms as evidenced by need for mechanically altered diet to minced/moist texture with mildly thickened liquids to nectar. Status Active Problem Recommendation Dietitian Will adjust therapeutic diet to 1800 calorie/consistent Recommendations/ carb; sodium-restricted; potassium-restricted with Changes consistency/texture as per AQUACULTURIST. Will d/c PO Nepro with medpass and add 120mL vanilla Nepro Carb Steady w/ meals as discussed with pt/family. Liberalize diet as needed depending on renal labs and blood glucose levels. Lab / Micro Data 01/06/25 07:44 01/06/25 07:44 Labs: Laboratory Results - last 24 hr 01/05/25 16:33: POC Glucose 315 H 01/05/25 18:50: Sodium 132 L, Potassium 5.4 H, Chloride 97 L, Carbon Dioxide 21.0, Anion Gap 14, BUN 47 H, Creatinine 2.25 H, Estim Creat Clear Calc 24.06 L,Est GFR (MDRD) Non-Af 29 L, BUN/Creatinine Ratio 21.1 H, Glucose 192 H, Calcium 8.8 01/05/25 21:30: POC Glucose 224 H 01/06/25 07:44: WBC 12.0 H, RBC 2.97 L, Hgb 9.0 L, Hct 26.6 L, MCV 89.6, MCH 30.3, MCHC 33.8, RDW Std Deviation 46.4 H, RDW Coeff of Disha 14.3, Plt Count 336,MPV 10.1, Sodium 130 L, Potassium 5.8 H, Chloride 95 L, Carbon Dioxide 22.4, Anion Gap 13, BUN 43 H, Creatinine 2.54 H, Estim Creat Clear Calc 21.31 L, Est GFR (MDRD) Non-Af 25 L, BUN/Creatinine Ratio 17.0, Glucose 247 H, Calcium 8.3 01/06/25 08:01: POC Glucose 239 H 01/06/25 11:35: POC Glucose 215 H Rhythm Strip Rhythm Strip: Sinus Rhythm Rate: 98 Ectopy: None Physical Exam Narrative Alert and oriented x 3, no apparent distress S1, S2, RRR Lungs sound clear Abdomen soft, nontender No edema Indwelling Peña with clear yellow urine in bag Assessment & Plan Assessment/Plan (1) Hyperkalemia: (2) CKD (chronic kidney disease), stage IV: PLAN: Plan Impression/Plan: This is a pleasant 79-year-old male with recent medical history significant for spine surgery then perforated bowel status post right hemicolectomy with partialcolectomy of the transverse colon with wound VAC placement at [facility] from December 03 to December 26, patient was discharged then to TCU for rehab. Patient's past medical history also includes CKD, hypertension, BPH, heart failure reduced EF with a EF 30%, severe aortic stenosis, patient also developedAKI when at [facility] requiring hemodialysis around 3 treatments. Fortunately by time of hospital discharge kidney function improved and patient no longer needed hemodialysis. For this admission nephrology consulted in view of hyperkalemia. Hyperkalemia in the setting of chronic kidney disease stage G4. Patient has baseline serum creatinine of around 2.20 to 2.40 mg/dL Hyperkalemia is likely due to CKD, metabolic acidosis and hyperglycemia. No recent SUZAN or ARB's. Patient states no recent potassium supplements at home. Ensure was discontinued, and patient was started on Nepro instead to limit potassium with nutritional supplementation. Potassium level continues to fluctuate. Peak potassium was 7.4, with hyperkalemia protocol and Kayexalate potassium improved to 5.4 on 01/04/2025. Potassium increased back to 6.1 on 01/05/2025, bicarb 16. Patient received sodium bicarb, D10 and insulin for hyperkalemia on 01/05/2025. He is also on dietary potassium restrictions. Continue patient on bicarb drip today. We shall try to keep glucose less than 200 mg/dL to limit hyperkalemia from hyperglycemia. Serum creatinine is a little higher than usual baseline, but not by much. Patient has good urine output. Therefore, there is no acute indication for kidney replacement therapy today. Further orders forthcoming as hospitalizationevolves, thank you for allowing us to participate in the care of Mr. Barnett. Hyponatremia. Serum sodium has been trending down over the last 48 hours. I suspect some component of hyponatremia is due to hyperglycemia. If serum sodium worsens, I will check urine sodium and osmolality. Will continue monitor serum sodium 01/06/258 <Electronically signed by Sindi Monterroso MD> Cosigner Signature (if applicable): CC: ~ Signed [facility] Work Phone: [phone]) [phone] Progress note [facility] Medical Records Department [address] [place] [address] Progress Note - Nephrology 01/06/25 1648 MR#: [id number] Acct: [id number] Name: JOAO BARNETT Rep #:[id number] : 1945 79 From: Sindi patterson MD PCP: DEANNA Franklin Status:ADM IN Location: [place] [id number] Subjective Subjective Following for hyperkalemia and CKD. Patient denies chest pain or shortness of breath. He complains of right hip pain. There is no nausea or vomiting. Objective Data Objective Data Vital Signs: Vital Signs Temp Pulse Resp BP Pulse Ox O2 Del Method 97.7 F L 107 H 17 104/74 97 Room Air 01/06/25 15:52 01/06/25 15:52 01/06/25 15:52 01/06/25 15:52 01/06/25 15:52 01/06/25 15:52 Oxygen Delivery Method Room Air Weight: 62.868 kg Body Mass Index (BMI) 22.4 Intake & Output: Intake and Output for Last 24 Hours 01/04/25 01/05/25 01/06/25 23:59 23:59 23:59 Intake Total 3550 / 3550 372.00 / 372.00 3278 / 3278 Output Total 2510 / 3010 1800 / 1800 520 / 520 Balance 1040 / 540 -1428.00 / -1428.00 2758 / 2758 Medical Nutrition Assessment Dietitian: Malnutrition Criteria Met Start: 01/03/25 16:33 Freq: Status: Active Protocol: Document 01/06/25 14:21 RMA (Rec: 01/06/25 14:21 RMA [id number]) Nutrition Malnutrition Evidence of Yes Malnutrition Exists Malnutrition (severe Acute Illness/Injury ): Evidenced By Suboptimal Energy Intake (Severe),Weight Loss (Severe), Physical Changes (Moderate) Clinical Problem Acute Disease or Injury Related Malnutrition Etiology Severe protein-calorie malnutrition in the context of acute on chronic disease related to inadequate oral/ energy intake and dysphagia Signs/Symptoms as evidenced by PO meeting <50% of estimated nutrition needs x 1 month, 15% unintentional weight loss x 1 month, and moderate wasting in clavicle and orbitals. Status Active Problem Swallowing Difficulty Etiology likely related to recent intubation Signs/Symptoms as evidenced by need for mechanically altered diet to minced/moist texture with mildly thickened liquids to nectar. Status Active Problem Recommendation Dietitian Will adjust therapeutic diet to 1800 calorie/consistent Recommendations/ carb; sodium-restricted; potassium-restricted with Changes consistency/texture as per AQUACULTURIST. Will d/c PO Nepro with medpass and add 120mL vanilla Nepro Carb Steady w/ meals as discussed with pt/family. Liberalize diet as needed depending on renal labs and blood glucose levels. Lab / Micro Data 01/06/25 07:44 01/06/25 07:44 Labs: Laboratory Results - last 24 hr 01/05/25 16:33: POC Glucose 315 H 01/05/25 18:50: Sodium 132 L, Potassium 5.4 H, Chloride 97 L, Carbon Dioxide 21.0, Anion Gap 14, BUN 47 H, Creatinine 2.25 H, Estim Creat Clear Calc 24.06 L,Est GFR (MDRD) Non-Af 29 L, BUN/CreatinineRatio 21.1 H, Glucose 192 H, Calcium 8.8 01/05/25 21:30: POC Glucose 224 H 01/06/25 07:44: WBC 12.0 H, RBC 2.97 L, Hgb 9.0 L, Hct 26.6 L, MCV 89.6, MCH 30.3, MCHC 33.8, RDW Std Deviation 46.4 H, RDW Coeff of Disha 14.3, Plt Count 336,MPV 10.1, Sodium 130 L, Potassium 5.8 H, Chloride 95 L, Carbon Dioxide 22.4, Anion Gap 13, BUN 43 H, Creatinine 2.54 H, Estim Creat Clear Calc21.31 L, Est GFR (MDRD) Non-Af 25 L, BUN/Creatinine Ratio 17.0, Glucose 247 H, Calcium 8.3 01/06/25 08:01: POC Glucose 239 H 01/06/25 11:35: POC Glucose 215 H Rhythm Strip Rhythm Strip: Sinus Rhythm Rate: 98 Ectopy: None Physical Exam Narrative Alert and oriented x 3, no apparent distress S1, S2, RRR Lungs sound clear Abdomen soft, nontender No edema Indwelling Peña with clear yellow urine in bag Assessment & Plan Assessment/Plan (1) Hyperkalemia: (2) CKD (chronic kidney disease), stage IV: PLAN: Plan Impression/Plan: This is a pleasant 79-year-old male with recent medical history significant for spine surgery then perforated bowel status post right hemicolectomy with partialcolectomy of the transverse colon with wound VAC placement at [facility] from December 03 to December 26, patient was discharged then to TCU for rehab. Patient's past medical history also includes CKD, hypertension, BPH, heart failure reduced EF with a EF 30%, severe aortic stenosis, patient also developedAKI when at [facility] requiring hemodialysis around 3 treatments. Fortunately by time of hospital discharge kidney function improved and patient no longer needed hemodialysis. For this admission nephrology consulted in view of hyperkalemia. Hyperkalemia in the setting of chronic kidney disease stage G4. Patient has baseline serum creatinine of around 2.20 to 2.40 mg/dL Hyperkalemia is likely due to CKD, metabolic acidosis and hyperglycemia. No recent SUZAN or ARB's. Patient states no recent potassium supplements at home. Ensure was discontinued, and patient was started on Nepro instead to limit potassium with nutritional supplementation. Potassium level continues to fluctuate. Peak potassium was 7.4, with hyperkalemia protocol and Kayexalate potassium improved to 5.4 on 01/04/2025. Potassium increased back to 6.1 on 01/05/2025, bicarb 16. Patient received sodium bicarb, D10 and insulin for hyperkalemia on 01/05/2025. He is also on dietary potassium restrictions. Continue patient on bicarb drip today. We shall try to keep glucose less than 200 mg/dL to limit hyperkalemia from hyperglycemia. Serum creatinine is a little higher than usual baseline, but not by much. Patient has good urine output. Therefore, there is no acute indication for kidney replacement therapy today. Further orders forthcoming as hospitalizationevolves, thank you for allowing us to participate in the care of Mr. Barnett. Hyponatremia. Serum sodium has been trending down over the last 48 hours. I suspect some component of hyponatremia is due to hyperglycemia. If serum sodium worsens, I will check urine sodium and osmolality. Will continue monitor serum sodium 01/06/25 [id number] Cosigner Signature (if applicable): CC: ~ Signed [facility]06-14-2025 Progress note Author Jeremy Faith [facility] Note Date/Time January 06, 2025 10:3 9am [facility] Medical Records Department [address] [place] [address] Progress Note - Hospitalist 01/06/25 0935 MR#: [id number] Acct: [id number] Name: JOAO BARNETT Rep #:[id number] : 1945 79 From: Jeremy Giuliano leone DO PCP: DEANNA Franklin Status:ADM IN Location: [id number] Reason for Visit Reason for Visit: Diagnoses Hyperkalemia (01/03/25) Subjective Subjective Saw patient at bedside this morning. Patient appeared similar this morning to previous days. Continued to report mild abdominal pain but no other new concerns this morning. Objective Data Objective Data Vital Signs: Vital Signs Temp Pulse Resp BP Pulse Ox O2 Del Method 100.5 F H 120 H 16 97/53 L 95 Room Air 01/06/25 08:16 01/06/25 08:16 01/06/25 08:16 01/06/25 08:16 01/06/25 08:16 01/06/25 08:16 Oxygen Delivery Method Room Air Weight: 62.868 kg Body Mass Index (BMI) 22.4 Intake & Output: Intake and Output for Last 24 Hours 01/04/25 01/05/25 01/06/25 23:59 23:59 23:59 Intake Total 3550 / 3550 372.00 / 372.00 1200 / 1200 Output Total 2510 / 3010 1800 / 1800 300 / 300 Balance 1040 / 540 -1428.00 / -1428.00 900 / 900 Medical Nutrition Assessment Dietitian: Malnutrition Criteria Met Start: 01/03/25 16:33 Freq: Status: Active Protocol: Document 01/03/25 16:33 SB (Rec: 01/03/25 16:34 SB [id number]) Nutrition Malnutrition Evidence of Yes Malnutrition Exists Malnutrition (severe Acute Illness/Injury ): Evidenced By Suboptimal Energy Intake (Severe),Weight Loss (Severe), Physical Changes (Moderate) Clinical Problem Acute Disease or Injury Related Malnutrition Etiology severe related to inadequate oral intake and dysphagia Signs/Symptoms as evidenced by PO meeting <50% of estimated nutrition needs x 1 month, 15% unintentional weight loss x 1 month, and moderate wasting in clavicle and orbitals. Status Active Problem Swallowing Difficulty Etiology likely related to recent intubation Signs/Symptoms as evidenced by minced/moist texture with mildly thick liquids. Status Active Problem Recommendation Dietitian Adjust to liberal regular diet with potassium Recommendations/ restriction due to signs and symptoms of malnutrition Changes per AQUACULTURIST recommendations. Will order 120ml EPHP 4x daily with medpass. Will monitor weight trends. Lab / Micro Data 01/06/25 07:44 01/06/25 07:44 Labs: Laboratory Results - last 24 hr 01/05/25 11:20: POC Glucose 195 H 01/05/25 11:41: Sodium 132 L, Potassium 5.7 H, Chloride 101, Carbon Dioxide 20.2L, Anion Gap 11, BUN 48 H, Creatinine 2.27 H, Estim Creat Clear Calc 23.85 L, Est GFR (MDRD) Non-Af 29 L, BUN/Creatinine Ratio 21.1 H, Glucose 205 H, Calcium 8.7 01/05/25 16:33: POC Glucose 315 H 01/05/25 18:50: Sodium 132 L, Potassium 5.4 H, Chloride 97 L, Carbon Dioxide 21.0, Anion Gap 14, BUN 47 H, Creatinine 2.25 H, Estim Creat Clear Calc 24.06 L,Est GFR (MDRD) Non-Af 29 L, BUN/Creatinine Ratio 21.1 H, Glucose 192 H, Calcium 8.8 01/05/25 21:30: POC Glucose 224 H 01/06/25 07:44: WBC 12.0 H, RBC 2.97 L, Hgb 9.0 L, Hct 26.6 L, MCV 89.6, MCH 30.3, MCHC 33.8, RDW Std Deviation 46.4 H, RDW Coeff of Disha 14.3, Plt Count 336,MPV 10.1, Sodium 130 L, Potassium 5.8 H, Chloride 95 L, Carbon Dioxide 22.4, Anion Gap 13, BUN 43 H, Creatinine 2.54 H, Estim Creat Clear Calc 21.31 L, Est GFR (MDRD) Non-Af 25 L, BUN/Creatinine Ratio 17.0, Glucose 247 H, Calcium 8.3 Rhythm Strip Rhythm Strip: Sinus Rhythm Rate: 98 Ectopy: None Physical Exam Const alert, oriented x3, no apparent distress and average body habitus Constitutional Narrative: Elderly male, mildly fatigued but energy improved from admission, chronically ill-appearing, otherwise sitting back comfortably in bed, answering questions appropriately, in no acute distress. General Appearance: cooperative and comfortable HEENT normocephalic, head/scalp atraumatic, hearing grossly normal bilaterally, nasal mucous membranes and turbinates normal and moist oral mucous membranes Eyes PERRL, EOMs intact bilaterally and conjunctivae normal Neck full ROM Chest inspection of chest normal Resp normal respiratory effort, normal air movement, no use of accessory muscles and clear to auscultation bilaterally Cardio regular rate, regular rhythm, no murmurs and peripheral pulses 2+ throughout GI GI Narrative: Colostomy bag in place with normal-appearing stool output. Mild diffuse tenderness to palpation but abdomen otherwise soft and nondistended. Stable. Back/Spine normal ROM Extremity normal to inspection, full ROM and no pedal edema Skin no rashes or lesions noted Psych mental status grossly normal Assessment & Plan Assessment/Plan (1) Acute hyperkalemia: PLAN: Plan Patient is a 79-year-old male who presented to [facility] ED on 01/03/2025 with acute hyperkalemia. 1. Acute hyperkalemia with non anion gap metabolic acidosis, improving ? Nephrology following. Potassium 7.4 on admit. EKG showed peaked T waves and apparent mild QRS widening. Treated medically in the ED with significant improvement to 6.2 on recheck. Potassium elissa of 5.4 on the evening of 01/04 but unfortunately has worsened again each morning. Initiated on sodium bicarb drip on 01/05 and patient has had improvement. Most recent BMP with potassium 5.8 and bicarb 22 on 01/06. Notably did have a bump in his creatinine with mildly low blood pressures so we will increase the bicarbonate drip rate from 100 to 150 mL/h today. Continue low potassium diet with no Ensure protein drinks. Has had good urine output, no acute indication for dialysis. Continue to monitor BMP daily. 2. Suspected small postoperative abscess in setting of recent bowel perforations/p hemicolectomy with ostomy placement ? See Dr. Londono's note from 12/26 for further details. In short, patient presentedon 12/02 here with abdominal pain and was found to have free air under the diaphragm. Was emergently transferred to [facility] And underwent ex lap with right hemicolectomy with bowel anastomosis. Did well from a bowel standpoint postoperatively. Since admission here has had mild diffuse abdominalpain but no other infectious symptoms and no change in colostomy output. However given his ongoing hyperkalemia and mild bowel pain, CT abdomen pelvis without contrast was obtained and showed concern for possible abscess at anastomosis site. CT abdomen pelvis with oral contrast on 01/04 showed a small right anterior upper quadrant fluid and gas collection without intraluminal contrast compatible with intra-abdominal abscess. Discussed case with general surgery here who recommended initiation of IV antibiotics and repeat CT scan in 2 to 3 days. No need for urgent transfer back to [place] at this time. Started on IV Zosyn on 01/05. Patient feeling well, no change in symptoms at this time. Continue to monitor closely. 3. Recent severe PRISCILA with uremia requiring temporary dialysis, CKD stage IV ? Recently required [address] [facility] reportedly for significant uremia. Creatinine 2.2 on admission here with BUN 53. Potassium improved with medical treatment as noted above. Patient with adequate urine output at this point. No indications for dialysis and no need for nephrology consult at this time. 4. Recently diagnosed HFrEF with severe aortic stenosis ? See Dr. Londono's note from 12/26 for further details. Echo at [facility] Showed EF 30% and severe aortic stenosis. Recommendation was for TAVR evaluation once medically improved. Has been stable on Coreg 6.25 mg twice daily and isosorbide dinitrate 10 mg 3 times daily. Will continue these medications at this time. 5. Type 2 diabetes mellitus with diabetic neuropathy ? Hold home glimepiride and metformin. Continue treatment with sliding scale insulin with meals while inpatient, adjust as needed. Continue home gabapentin. 6. 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 Peña catheter placed during recent hospitalization and plan was for voiding trial in the TCU. Peña catheter removed on 01/05 and patient tolerating voidingtrial well to this point. Continue to monitor bladder scans as needed. Continue home finasteride and tamsulosin. 7. Acute on chronic debility ? PT/OT/case management following. Patient presented here from the TCU and tentative plan is for discharge back to TCU once medically ready. DVT prophylaxis: Heparin subcu CODE STATUS: Full code, verified Expected disposition: Back to TCU, TBD Total clinical time spent by myself addressing the patient's medical issues, reviewing all the data, and collaborating with patient's care team: 35 minutes. Charges/Coding Visit Charges Inpatient E&M: 56128 Subs Hosp L2 01/06/25 1037 <Electronically signed by Jeremy Faith DO> Cosigner Signature (if applicable): CC: ~ Signed [facility] Work Phone: 1(794) 168-296006-14-2025 Progress note [facility] Medical Records Department [address] [place] [address] Progress Note - Hospitalist 01/06/25 0935 MR#: [id number] Acct: [id number] Name: JOAO BARNETT Rep #:[id number] : 1945 79 From: Jeremy leone DO PCP: DEANNA Franklin Status:ADM IN Location: [place] [address] Reason for Visit Reason for Visit: Diagnoses Hyperkalemia (01/03/25) Subjective Subjective Saw patient at bedside this morning. Patient appeared similar this morning to previous days. Continued to report mild abdominal pain but no other new concerns this morning. Objective Data Objective Data Vital Signs: Vital Signs Temp Pulse Resp BP Pulse Ox O2 Del Method 100.5 F H 120 H 16 97/53 L 95 Room Air 01/06/25 08:16 01/06/25 08:16 01/06/25 08:16 01/06/25 08:16 01/06/25 08:16 01/06/25 08:16 Oxygen Delivery Method Room Air Weight: 62.868 kg Body Mass Index (BMI) 22.4 Intake & Output: Intake and Output for Last 24 Hours 01/04/25 01/05/25 01/06/25 23:59 23:59 23:59 Intake Total 3550 / 3550 372.00 / 372.00 1200 / 1200 Output Total 2510 / 3010 1800 / 1800 300 / 300 Balance 1040 / 540 -1428.00 / -1428.00 900 / 900 Medical Nutrition Assessment Dietitian: Malnutrition Criteria Met Start: 01/03/25 16:33 Freq: Status: Active Protocol: Document 01/03/25 16:33 SB (Rec: 01/03/25 16:34 SB [id number]) Nutrition Malnutrition Evidence of Yes Malnutrition Exists Malnutrition (severe Acute Illness/Injury ): Evidenced By Suboptimal Energy Intake (Severe),Weight Loss (Severe), Physical Changes (Moderate) Clinical Problem Acute Disease or Injury Related Malnutrition Etiology severe related to inadequate oral intake and dysphagia Signs/Symptoms as evidenced by PO meeting <50% of estimated nutrition needs x 1 month, 15% unintentional weight loss x 1 month, and moderate wasting in clavicle and orbitals. Status Active Problem Swallowing Difficulty Etiology likely related to recent intubation Signs/Symptoms as evidenced by minced/moist texture with mildly thick liquids. Status Active Problem Recommendation Dietitian Adjust to liberal regular diet with potassium Recommendations/ restriction due to signs and symptoms of malnutrition Changes per AQUACULTURIST recommendations. Will order 120ml EPHP 4x daily with medpass. Will monitor weight trends. Lab / Micro Data 01/06/25 07:44 01/06/25 07:44 Labs: Laboratory Results - last 24 hr 01/05/25 11:20: POC Glucose 195 H 01/05/25 11:41: Sodium 132 L, Potassium 5.7 H, Chloride 101, Carbon Dioxide 20.2L, Anion Gap 11, BUN 48 H, Creatinine 2.27 H, Estim Creat Clear Calc 23.85 L, Est GFR (MDRD) Non-Af 29 L, BUN/Creatinine Ratio 21.1 H, Glucose 205 H, Calcium 8.7 01/05/25 16:33: POC Glucose 315 H 01/05/25 18:50: Sodium 132 L, Potassium 5.4 H, Chloride 97 L, Carbon Dioxide 21.0, Anion Gap 14, BUN 47 H, Creatinine 2.25 H, Estim Creat Clear Calc 24.06 L,Est GFR (MDRD) Non-Af 29 L, BUN/CreatinineRatio 21.1 H, Glucose 192 H, Calcium 8.8 01/05/25 21:30: POC Glucose 224 H 01/06/25 07:44: WBC 12.0 H, RBC 2.97 L, Hgb 9.0 L, Hct 26.6 L, MCV 89.6, MCH 30.3, MCHC 33.8, RDW Std Deviation 46.4 H, RDW Coeff of Disha 14.3, Plt Count 336,MPV 10.1, Sodium 130 L, Potassium 5.8 H, Chloride 95 L, Carbon Dioxide 22.4, Anion Gap 13, BUN 43 H, Creatinine 2.54 H, Estim Creat Clear Calc21.31 L, Est GFR (MDRD) Non-Af 25 L, BUN/Creatinine Ratio 17.0, Glucose 247 H, Calcium 8.3 Rhythm Strip Rhythm Strip: Sinus Rhythm Rate: 98 Ectopy: None Physical Exam Const alert, oriented x3, no apparent distress and average body habitus Constitutional Narrative: Elderly male, mildly fatigued but energy improved from admission, chronically ill-appearing, otherwise sitting back comfortably in bed, answering questions appropriately, in no acute distress. General Appearance: cooperative and comfortable HEENT normocephalic, head/scalp atraumatic, hearing grossly normal bilaterally, nasal mucous membranes and turbinates normal and moist oral mucous membranes Eyes PERRL, EOMs intact bilaterally and conjunctivae normal Neck full ROM Chest inspection of chest normal Resp normal respiratory effort, normal air movement, no use of accessory muscles and clear to auscultation bilaterally Cardio regular rate, regular rhythm, no murmurs and peripheral pulses 2+ throughout GI GI Narrative: Colostomy bag in place with normal-appearing stool output. Mild diffuse tenderness to palpation butabdomen otherwise soft and nondistended. Stable. Back/Spine normal ROM Extremity normal to inspection, full ROM and no pedal edema Skin no rashes or lesions noted Psych mental status grossly normal Assessment & Plan Assessment/Plan (1) Acute hyperkalemia: PLAN: Plan Patient is a 79-year-old male who presented to [facility] ED on 01/03/2025 with acute hyperkalemia. 1. Acute hyperkalemia with non anion gap metabolic acidosis, improving ? Nephrology following. Potassium 7.4 on admit. EKG showed peaked T waves and apparent mild QRS widening. Treated medically in the ED with significant improvement to 6.2 on recheck. Potassium elissa of 5.4 on the evening of 01/04 but unfortunately has worsened again each morning. Initiated on sodium bicarb drip on 01/05 and patient has had improvement. Most recent BMP with potassium 5.8 and bicarb 22 on 01/06. Notably did have a bump in his creatinine with mildly low blood pressures so we will increase the bicarbonate drip rate from 100 to 150 mL/h today. Continue low potassium diet with no Ensure protein drinks. Has had good urine output, no acute indication for dialysis. Continue to monitor BMP daily. 2. Suspected small postoperative abscess in setting of recent bowel perforations/p hemicolectomy with ostomy placement ? See Dr. Londono's note from 12/26 for further details. In short, patient presentedon 12/02 here with abdominal pain and was found to have free air under the diaphragm. Was emergently transferred to [facility] And underwent ex lap with right hemicolectomy with bowel anastomosis. Did well from a bowelstandpoint postoperatively. Since admission here has had mild diffuse abdominalpain but no other infectious symptoms and no change in colostomy output. However given his ongoing hyperkalemia and mildbowel pain, CT abdomen pelvis without contrast was obtained and showed concern for possible abscessat anastomosis site. CT abdomen pelvis with oral contrast on 01/04 showed a small right anterior upper quadrant fluid and gas collection without intraluminal contrast compatible with intra- abdominal abscess. Discussed case with general surgery here who recommended initiation of IV antibiotics and repeat CT scan in 2 to 3 days. No need for urgent transfer back to [place] at this time. Started on IV Zosyn on 01/05. Patient feeling well, no change in symptoms at this time. Continue to monitor closely. 3. Recent severe PRISCILA with uremia requiring temporary dialysis, CKD stage IV ? Recently required [address] [facility] reportedly for significant uremia. Creatinine 2.2 on admission here with BUN 53. Potassium improved with medical treatment as noted above. Patient with adequate urine output at this point. No indications for dialysis and no need for nephrology consult at this time. 4. Recently diagnosed HFrEF with severe aortic stenosis ? See Dr. Londono's note from 12/26 for further details. Echo at [facility] Showed EF 30% and severe aortic stenosis. Recommendation was for TAVR evaluation once medically improved. Has been stable on Coreg 6.25 mg twice daily and isosorbide dinitrate 10 mg 3 times daily. Will continue these medications at this time. 5. Type 2 diabetes mellitus with diabetic neuropathy ? Hold home glimepiride and metformin. Continue treatment with sliding scale insulin with meals while inpatient, adjust as needed. Continue home gabapentin. 6. 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 Peña catheter placed during recent hospitalization and plan was for voiding trial in the TCU. Peña catheter removed on 01/05 and patient tolerating voidingtrial well to this point. Continue to monitor bladder scans as needed. Continue home finasteride and tamsulosin. 7. Acute on chronic debility ? PT/OT/case management following. Patient presented here from the TCU and tentative plan is for discharge back to TCU once medically ready. DVT prophylaxis: Heparin subcu CODE STATUS: Full code, verified Expected disposition: Back to TCU, TBD Total clinical time spent by myself addressing the patient's medical issues, reviewing all the data, and collaborating with patient's care team: 35 minutes. Charges/Coding Visit Charges Inpatient E&M: 67586 Subs Hosp L2 01/06/25 1039 Cosigner Signature (if applicable): CC: ~ Signed [facility]06-13-2025 Progress note Author Jeremy woody [facility] Note Date/Time January 05, 2025 12:2 3pm [facility] Medical Records Department [address] [place] [address] Progress Note - Hospitalist 01/05/25 1003 MR#: [id number] Acct: [id number] Name: JOAO BARNETT Rep #:[id number] : 1945 79 From: Jeremy leone DO PCP: DEANNA Franklin Status:ADM IN Location: [place] [id number] Reason for Visit Reason for Visit: Diagnoses Hyperkalemia (01/03/25) Subjective Subjective Saw patient at bedside this morning. Patient had slightly improved energy leveltoday but otherwise was sitting back comfortably in bed and in no acute distress. Importantly, patient was found on CT abdomen pelvis with oral contrast to have an area concerning for abscess near the bowel anastomosis site from his recent procedure. I discussed this over the phone with Dr. Mcrae from surgery who noted the area appeared small and not too impressive. He recommended treating with IV antibiotics with repeat CT scan in 2 to 3 days. Noneed for urgent transfer for surgical services in [place]. Patient continues to have only mild diffuse abdominal pain, no localized abdominal pain. Denies any fevers or chills. Unfortunately has had recurring worsening potassium with potassium level 6.1 this morning, so nephrology was consulted for assistance with management as well. Objective Data Objective Data Vital Signs: Vital Signs Temp Pulse Resp BP Pulse Ox O2 Del Method 97.7 F L 91 17 101/70 99 Room Air 01/05/25 09:56 01/05/25 09:56 01/05/25 09:56 01/05/25 09:56 01/05/25 09:56 01/05/25 09:56 Oxygen Delivery Method Room Air Weight: 62.868 kg Body Mass Index (BMI) 22.4 Intake & Output: Intake and Output for Last 24 Hours 01/03/25 01/04/25 01/05/25 23:59 23:59 23:59 Intake Total 1530 / 1530 3550 / 3550 250.25 / 250.25 Output Total 450 / 450 2510 / 3010 800 / 800 Balance 1080 / 1080 1040 / 540 -549.75 / -549.75 Medical Nutrition Assessment Dietitian: Malnutrition Criteria Met Start: 01/03/25 16:33 Freq: Status: Active Protocol: Document 01/03/25 16:33 SB (Rec: 01/03/25 16:34 SB [id number]) Nutrition Malnutrition Evidence of Yes Malnutrition Exists Malnutrition (severe Acute Illness/Injury ): Evidenced By Suboptimal Energy Intake (Severe),Weight Loss (Severe), Physical Changes (Moderate) Clinical Problem Acute Disease or Injury Related Malnutrition Etiology severe related to inadequate oral intake and dysphagia Signs/Symptoms as evidenced by PO meeting <50% of estimated nutrition needs x 1 month, 15% unintentional weight loss x 1 month, and moderate wasting in clavicle and orbitals. Status Active Problem Swallowing Difficulty Etiology likely related to recent intubation Signs/Symptoms as evidenced by minced/moist texture with mildly thick liquids. Status Active Problem Recommendation Dietitian Adjust to liberal regular diet with potassium Recommendations/ restriction due to signs and symptoms of malnutrition Changes per AQUACULTURIST recommendations. Will order 120ml EPHP 4x daily with medpass. Will monitor weight trends. Lab / Micro Data 01/05/25 06:35 01/05/25 06:35 Labs: Laboratory Results - last 24 hr 01/04/25 10:36: POC Glucose 212 H 01/04/25 12:09: Sodium 136, Potassium 6.1 H*, Chloride 104, Carbon Dioxide 17.9 L, Anion Gap 14, BUN 54 H, Creatinine 2.44 H, Estim Creat Clear Calc 22.19 L, Est GFR (MDRD) Non-Af 26 L, BUN/Creatinine Ratio 22.2 H, Glucose 168 H, Calcium 9.4 01/04/25 14:42: POC Glucose 167 H 01/04/25 16:06: POC Glucose 140 H 01/04/25 18:35: Sodium 132 L, Potassium 5.4 H, Chloride 100, Carbon Dioxide 16.7L, Anion Gap 15, BUN 49 H, Creatinine 2.28 H, Estim Creat Clear Calc 23.74 L, Est GFR (MDRD) Non-Af 29 L, BUN/Creatinine Ratio 21.5 H, Glucose 138 H, Calcium 9.1 01/04/25 22:10: POC Glucose 229 H 01/05/25 06:35: WBC 8.4, RBC 2.77 L, Hgb 8.3 L, Hct 25.1 L, MCV 90.6, MCH 30.0, MCHC 33.1, RDW Std Deviation 47.8 H, RDW Coeff of Disha 14.4, Plt Count 375, MPV 10.4, Sodium 132 L, Potassium 6.1 H*, Chloride 104, Carbon Dioxide 16.2 L, AnionGap 11, BUN 49 H, Creatinine 2.24 H, Estim Creat Clear Calc 24.17 L, Est GFR (MDRD) Non-Af 29 L, BUN/Creatinine Ratio 21.7 H, Glucose 169 H, Calcium 8.9 01/05/25 06:50: POC Glucose 172 H Radiography Diagnostic Testing: Radiology Impression Abdomen CT 01/04/25 14:34 IMPRESSION: 1. Right anterior upper quadrant fluid and gas collection without intraluminal contrast material, compatible with intra-abdominal abscess. 2. Status post recent right hemicolectomy and ileostomy. 3. Stable severe distal colonic diverticulosis. Reading Location: [facility] Rhythm Strip Rhythm Strip: Sinus Rhythm Rate: 98 Ectopy: None Physical Exam Const alert, oriented x3, no apparent distress and average body habitus Constitutional Narrative: Elderly male, mildly fatigued but energy improving and chronically ill- appearing, otherwise sitting back comfortably in bed, answering questions appropriately, in no acute distress. General Appearance: cooperative and comfortable HEENT normocephalic, head/scalp atraumatic, hearing grossly normal bilaterally, nasal mucous membranes and turbinates normal and moist oral mucous membranes Eyes PERRL, EOMs intact bilaterally and conjunctivae normal Neck full ROM Chest inspection of chest normal Resp normal respiratory effort, normal air movement, no use of accessory muscles and clear to auscultation bilaterally Cardio regular rate, regular rhythm, no murmurs and peripheral pulses 2+ throughout GI GI Narrative: Colostomy bag in place with normal-appearing stool output. Mild diffuse tenderness to palpation but abdomen otherwise soft and nondistended. Stable. Back/Spine normal ROM Extremity normal to inspection, full ROM and no pedal edema Skin no rashes or lesions noted Psych mental status grossly normal Assessment & Plan Assessment/Plan (1) Acute hyperkalemia: PLAN: Plan Patient is a 79-year-old male who presented to [facility] ED on 01/03/2025 with acute hyperkalemia. 1. Acute hyperkalemia, improving ? Nephrology following. Potassium 7.4 on admit. EKG showed peaked T waves and apparent mild QRS widening. Treated medically in the ED with significant improvement to 6.2 on recheck. Potassium elissa of 5.4 on the evening of 01/04 but unfortunately has worsened again each morning. Most recent potassium 6.1 onmorning of 01/05 with sodium bicarb of 16. Per nephrology, initiated on sodium bicarbonate drip. Continue low potassium diet with no Ensure protein drinks. Has had good urine output, no acute indication for dialysis. Will check repeat BMPs at 12 PM and 6 PM again today. Continue to monitor closely. 2. Suspected small postoperative abscess in setting of recent bowel perforations/p hemicolectomy with ostomy placement ? See Dr. Londono's note from 12/26 for further details. In short, patient presentedon 12/02 here with abdominal pain and was found to have free air under the diaphragm. Was emergently transferred to [facility] And underwent ex lap with right hemicolectomy with bowel anastomosis. Did well from a bowel standpoint postoperatively. Since admission here has had mild diffuse abdominalpain but no other infectious symptoms and no change in colostomy output. However given his ongoing hyperkalemia and mild bowel pain, CT abdomen pelvis without contrast was obtained and showed concern for possible abscess at anastomosis site. CT abdomen pelvis with oral contrast on 01/04 showed a small right anterior upper quadrant fluid and gas collection without intraluminal contrast compatible with intra-abdominal abscess. Discussed case with general surgery here who recommended initiation of IV antibiotics and repeat CT scan in 2 to 3 days. No need for urgent transfer back to [place] at this time. Started on IV Zosyn on 01/05. Monitor closely. 3. Recent severe PRISCILA with uremia requiring temporary dialysis, CKD stage IV ? Recently required [address] [facility] reportedly for significant uremia. Creatinine 2.2 on admission here with BUN 53. Potassium improved with medical treatment as noted above. Patient with adequate urine output at this point. No indications for dialysis and no need for nephrology consult at this time. 4. Recently diagnosed HFrEF with severe aortic stenosis ? See Dr. Londono's note from 12/26 for further details. Echo at [facility] Showed EF 30% and severe aortic stenosis. Recommendation was for TAVR evaluation once medically improved. Has been stable on Coreg 6.25 mg twice daily and isosorbide dinitrate 10 mg 3 times daily. Will continue these medications at this time. 5. Type 2 diabetes mellitus with diabetic neuropathy ? Hold home glimepiride and metformin. Continue treatment with sliding scale insulin with meals while inpatient, adjust as needed. Continue home gabapentin. 6. 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 Peña catheter in place and will continue this with plan for voiding trial after discharge. Continue home finasteride and tamsulosin. 7. Acute on chronic debility ? PT/OT/case management following. Patient presented here from the TCU and tentative plan is for discharge back to TCU once medically ready. DVT prophylaxis: Heparin subcu CODE STATUS: Full code, verified Expected disposition: Back to TCU, TBD Total clinical time spent by myself addressing the patient's medical issues, reviewing all the data, and collaborating with patient's care team: 35 minutes. Charges/Coding Visit Charges Inpatient E&M: 82521 Subs Hosp L2 01/05/25 1223 <Electronically signed by Jeremy Faith DO> Cosigner Signature (if applicable): CC: ~ Signed [facility] Work Phone: 1(133) 439-563106-13-2025 Progress note [facility] Medical Records Department [address] [place] [address] Progress Note - Hospitalist 01/05/25 1003 MR#: [id number] Acct: [id number] Name: JOAO BARNETT Rep #:[id number] : 1945 79 From: Jeremy leone DO PCP: DEANNA Franklin Status:ADM IN Location: [facility] [id number] Reason for Visit Reason for Visit: Diagnoses Hyperkalemia (01/03/25) Subjective Subjective Saw patient at bedside this morning. Patient had slightly improved energy leveltoday but otherwise was sitting back comfortably in bed and in no acute distress. Importantly, patient was found on CT abdomen pelvis with oral contrast to have an area concerning for abscess near the bowel anastomosis site from his recent procedure. I discussed this over the phone with Dr. Mcrae from surgery who noted the area appeared small and not too impressive. He recommended treating with IV antibiotics with repeat CT scan in 2 to 3 days. Noneed for urgent transfer for surgical services in [place]. Patientcontinues to have only mild diffuse abdominal pain, no localized abdominal pain. Denies any fevers or chills. Unfortunately has had recurring worsening potassium with potassium level 6.1 this morning, so nephrology was consulted for assistance with management as well. Objective Data Objective Data Vital Signs: Vital Signs Temp Pulse Resp BP Pulse Ox O2 Del Method 97.7 F L 91 17 101/70 99 Room Air 01/05/25 09:56 01/05/25 09:56 01/05/25 09:56 01/05/25 09:56 01/05/25 09:56 01/05/25 09:56 Oxygen Delivery Method Room Air Weight: 62.868 kg Body Mass Index (BMI) 22.4 Intake & Output: Intake and Output for Last 24 Hours 01/03/25 01/04/25 01/05/25 23:59 23:59 23:59 Intake Total 1530 / 1530 3550 / 3550 250.25 / 250.25 Output Total 450 / 450 2510 / 3010 800 / 800 Balance 1080 / 1080 1040 / 540 -549.75 / -549.75 Medical Nutrition Assessment Dietitian: Malnutrition Criteria Met Start: 01/03/25 16:33 Freq: Status: Active Protocol: Document 01/03/25 16:33 SB (Rec: 01/03/25 16:34 SB [id number]) Nutrition Malnutrition Evidence of Yes Malnutrition Exists Malnutrition (severe Acute Illness/Injury ): Evidenced By Suboptimal Energy Intake (Severe),Weight Loss (Severe), Physical Changes (Moderate) Clinical Problem Acute Disease or Injury Related Malnutrition Etiology severe related to inadequate oral intake and dysphagia Signs/Symptoms as evidenced by PO meeting <50% of estimated nutrition needs x 1 month, 15% unintentional weight loss x 1 month, and moderate wasting in clavicle and orbitals. Status Active Problem Swallowing Difficulty Etiology likely related to recent intubation Signs/Symptoms as evidenced by minced/moist texture with mildly thick liquids. Status Active Problem Recommendation Dietitian Adjust to liberal regular diet with potassium Recommendations/ restriction due to signs and symptoms of malnutrition Changes per AQUACULTURIST recommendations. Will order 120ml EPHP 4x daily with medpass. Will monitor weight trends. Lab / Micro Data 01/05/25 06:35 01/05/25 06:35 Labs: Laboratory Results - last 24 hr 01/04/25 10:36: POC Glucose 212 H 01/04/25 12:09: Sodium 136, Potassium 6.1 H*, Chloride 104, Carbon Dioxide 17.9 L, Anion Gap 14, BUN 54 H, Creatinine 2.44 H, Estim Creat Clear Calc 22.19 L, Est GFR (MDRD) Non-Af 26 L, BUN/Creatinine Ratio 22.2 H, Glucose 168 H, Calcium 9.4 01/04/25 14:42: POC Glucose 167 H 01/04/25 16:06: POC Glucose 140 H 01/04/25 18:35: Sodium 132 L, Potassium 5.4 H, Chloride 100, Carbon Dioxide 16.7L, Anion Gap 15, BUN 49 H, Creatinine 2.28 H, Estim Creat Clear Calc 23.74 L, Est GFR (MDRD) Non-Af 29 L, BUN/Creatinine Ratio 21.5 H, Glucose 138 H, Calcium 9.1 01/04/25 22:10: POC Glucose 229 H 01/05/25 06:35: WBC 8.4, RBC 2.77 L, Hgb 8.3 L, Hct 25.1 L, MCV 90.6, MCH 30.0, MCHC 33.1, RDW Std Deviation 47.8 H, RDW Coeff of Disha 14.4, Plt Count 375, MPV 10.4, Sodium 132 L, Potassium 6.1 H*, Chloride 104, Carbon Dioxide 16.2 L, AnionGap 11, BUN 49 H, Creatinine 2.24 H, Estim Creat Clear Calc 24.17 L, Est GFR (MDRD) Non-Af 29 L, BUN/Creatinine Ratio 21.7 H, Glucose 169 H, Calcium 8.9 01/05/25 06:50: POC Glucose 172 H Radiography Diagnostic Testing: Radiology Impression Abdomen CT 01/04/25 14:34 IMPRESSION: 1. Right anterior upper quadrant fluid and gas collection without intraluminal contrast material, compatible with intra-abdominal abscess. 2. Status post recent right hemicolectomy and ileostomy. 3. Stable severe distal colonic diverticulosis. Reading Location: [facility] Rhythm Strip Rhythm Strip: Sinus Rhythm Rate: 98 Ectopy: None Physical Exam Const alert, oriented x3, no apparent distress and average body habitus Constitutional Narrative: Elderly male, mildly fatigued but energy improving and chronically ill- appearing, otherwise sittingback comfortably in bed, answering questions appropriately, in no acute distress. General Appearance: cooperative and comfortable HEENT normocephalic, head/scalp atraumatic, hearing grossly normal bilaterally, nasal mucous membranes and turbinates normal and moist oral mucous membranes Eyes PERRL, EOMs intact bilaterally and conjunctivae normal Neck full ROM Chest inspection of chest normal Resp normal respiratory effort, normal air movement, no use of accessory muscles and clear to auscultation bilaterally Cardio regular rate, regular rhythm, no murmurs and peripheral pulses 2+ throughout GI GI Narrative: Colostomy bag in place with normal-appearing stool output. Mild diffuse tenderness to palpation butabdomen otherwise soft and nondistended. Stable. Back/Spine normal ROM Extremity normal to inspection, full ROM and no pedal edema Skin no rashes or lesions noted Psych mental status grossly normal Assessment & Plan Assessment/Plan (1) Acute hyperkalemia: PLAN: Plan Patient is a 79-year-old male who presented to [facility] ED on 01/03/2025 with acute hyperkalemia. 1. Acute hyperkalemia, improving ? Nephrology following. Potassium 7.4 on admit. EKG showed peaked T waves and apparent mild QRS widening. Treated medically in the ED with significant improvement to 6.2 on recheck. Potassium elissa of 5.4 on the evening of 01/04 but unfortunately has worsened again each morning. Most recent potassium 6.1 onmorning of 01/05 with sodium bicarb of 16. Per nephrology, initiated on sodium bicarbonate drip. Continue low potassium diet with no Ensure protein drinks. Has had good urine output, no acute indication for dialysis. Will check repeat BMPs at 12 PM and 6 PM again today. Continue to monitor closely. 2. Suspected small postoperative abscess in setting of recent bowel perforations/p hemicolectomy with ostomy placement ? See Dr. Londono's note from 12/26 for further details. In short, patient presentedon 12/02 here with abdominal pain and was found to have free air under the diaphragm. Was emergently transferred to [facility] And underwent ex lap with right hemicolectomy with bowel anastomosis. Did well from a bowelstandpoint postoperatively. Since admission here has had mild diffuse abdominalpain but no other infectious symptoms and no change in colostomy output. However given his ongoing hyperkalemia and mildbowel pain, CT abdomen pelvis without contrast was obtained and showed concern for possible abscessat anastomosis site. CT abdomen pelvis with oral contrast on 01/04 showed a small right anterior upper quadrant fluid and gas collection without intraluminal contrast compatible with intra- abdominal abscess. Discussed case with general surgery here who recommended initiation of IV antibiotics and repeat CT scan in 2 to 3 days. No need for urgent transfer back to [place] at this time. Started on IV Zosyn on 01/05. Monitor closely. 3. Recent severe PRISCILA with uremia requiring temporary dialysis, CKD stage IV ? Recently required [address] [facility] reportedly for significant uremia. Creatinine 2.2 on admission here with BUN 53. Potassium improved with medical treatment as noted above. Patient with adequate urine output at this point. No indications for dialysis and no need for nephrology consult at this time. 4. Recently diagnosed HFrEF with severe aortic stenosis ? See Dr. Londono's note from 12/26 for further details. Echo at [facility] Showed EF 30% and severe aortic stenosis. Recommendation was for TAVR evaluation once medically improved. Has been stable on Coreg 6.25 mg twice daily and isosorbide dinitrate 10 mg 3 times daily. Will continue these medications at this time. 5. Type 2 diabetes mellitus with diabetic neuropathy ? Hold home glimepiride and metformin. Continue treatment with sliding scale insulin with meals while inpatient, adjust as needed. Continue home gabapentin. 6. 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 Peña catheter in place and will continue this with plan for voiding trial after discharge. Continue home finasteride and tamsulosin. 7. Acute on chronic debility ? PT/OT/case management following. Patient presented here from the TCU and tentative plan is for discharge back to TCU once medically ready. DVT prophylaxis: Heparin subcu CODE STATUS: Full code, verified Expected disposition: Back to TCU, TBD Total clinical time spent by myself addressing the patient's medical issues, reviewing all the data, and collaborating with patient's care team: 35 minutes. Charges/Coding Visit Charges Inpatient E&M: 97935 Subs Hosp L2 01/05/25 1223 Cosigner Signature (if applicable): CC: ~ Signed [facility]06-12-2025 Radiology Diagnostic study note [facility] Imaging Services [address] [place], [place] [address] Abdomen/Pel W ORAL Cont Only MR#: [id number] Acct: [id number] Name: JOAO BARNETT Rep #: [id number] : 1945 M 79 From: Rachele Meyers MD PCP: DEANNA Franklin Status: ADM IN Study:Abdomen/Pel W ORAL Cont Only Date of Ex am: 01/04/25 Exam# [id number] Ordering Dr: Jeremy Tirado DO PROCEDURE: ABDOMEN/PEL W ORAL CONT ONLY 01/04/2025 REASON FOR EXAM: R/O POST-OP ABSCESS. Status post hemicolectomy and ileostomy due to perforated bowel. TECHNIQUE: Abdomen and pelvis CT without intravenous contrast. Noncontrast technique limits evaluation of the abdominal and pelvic viscera. Coronal and Sagittal reconstruction series were provided. One or more dose reduction techniques were used (e.g., Automated exposure control, adjustment of the mA and/or kV according to patient size, use of iterative reconstruction technique). PATIENT PREPARATION: Per protocol ORAL CONTRAST TYPE: Gastrografin COMPARISON: CT abdomen pelvis 01/03/2025. FINDINGS: Lung bases: Mild bibasilar fibrosis. Severe coronary artery and aortic valvularcalcifications. Liver: The unopacified liver is normal in size. No biliary ductal dilation. Gallbladder: No radiopaque stones within the gallbladder. Spleen: Normal in size. Pancreas: The unopacified pancreas is atrophic with a few scattered punctate calcifications. Adrenals: No adrenal mass. Kidneys: Mild symmetric renal cortical atrophy. Nonobstructing right upper polerenal calculus. No hydronephrosis. Bladder: Decompressed by indwelling Peña catheter. Nondependent intraluminal gas, likely secondaryto recent instrumentation. Reproductive Organs: Unremarkable. Bowel: Oral contrast material opacifies the stomach and small bowel loops. Status post recent righthemicolectomy and ileostomy in the right lower quadrant. Unchanged fluid and gas collection near the surgical anastomosis within the right upper quadrant (series 2, image 56) without intraluminal contrast material. Mild mesenteric edema and stranding, likely postoperative. Persistent severe distal colonic diverticulosis. Lymph nodes: No suspicious lymphadenopathy. Vasculature: Severe calcific plaque of the aortoiliac vessels. Bones/soft tissues: Prior posterior instrumentation and spinal fixation, intervertebral disc spacers and bone grafting of the lumbar spine. Prior hernia repair with numerous surgical anchors throughout thelower pelvis. CT/Abdomen/Pel W ORAL Cont Only IMPRESSION: 1. Right anterior upper quadrant fluid and gas collection without intraluminal contrast material, compatible with intra-abdominal abscess. 2. Status post recent right hemicolectomy and ileostomy. 3. Stable severe distal colonic diverticulosis. Reading Location: [id number] CC: [employer] [place]; Dr. Jeremy Faith DO ~ Cardiovascular Invasive Specialist: Signed [facility]06-12-2025 Progress note Author Jeremy Faith [facility] Note Date/Time January 04, 2025 11:4 8am [facility] Medical Records Department [address] [place] [address] Progress Note - Hospitalist 01/04/25 1110 MR#: [id number] Acct: [id number] Name: JOAO BARNETT Rep #:[id number] : 1945 79 From: Jeremy leone DO PCP: DEANNA Franklin Status:ADM IN Location: [place] [address] Reason for Visit Reason for Visit: Diagnoses Hyperkalemia (01/03/25) Subjective Subjective Saw patient at bedside this morning. Patient appeared similar to yesterday, remains fatigued but otherwise resting comfortably in bed and in no acute distress. Denies any new concerns this morning. Objective Data Objective Data Vital Signs: Vital Signs Temp Pulse Resp BP Pulse Ox O2 Del Method 97.8 F 73 16 107/53 L 99 Room Air 01/04/25 10:30 01/04/25 10:30 01/04/25 10:30 01/04/25 10:30 01/04/25 10:30 01/04/25 10:30 Oxygen Delivery Method Room Air Weight: 62.868 kg Body Mass Index (BMI) 22.4 Intake & Output: Intake and Output for Last 24 Hours 01/02/25 01/03/25 01/04/25 23:59 23:59 23:59 Intake Total 1530 / 1530 100 / 100 Output Total 450 / 450 360 / 360 Balance 7793 / 2695 -260 / -260 Medical Nutrition Assessment Dietitian: Malnutrition Criteria Met Start: 01/03/25 16:33 Freq: Status: Active Protocol: Document 01/03/25 16:33 SB (Rec: 01/03/25 16:34 SB [id number]) Nutrition Malnutrition Evidence of Yes Malnutrition Exists Malnutrition (severe Acute Illness/Injury ): Evidenced By Suboptimal Energy Intake (Severe),Weight Loss (Severe), Physical Changes (Moderate) Clinical Problem Acute Disease or Injury Related Malnutrition Etiology severe related to inadequate oral intake and dysphagia Signs/Symptoms as evidenced by PO meeting <50% of estimated nutrition needs x 1 month, 15% unintentional weight loss x 1 month, and moderate wasting in clavicle and orbitals. Status Active Problem Swallowing Difficulty Etiology likely related to recent intubation Signs/Symptoms as evidenced by minced/moist texture with mildly thick liquids. Status Active Problem Recommendation Dietitian Adjust to liberal regular diet with potassium Recommendations/ restriction due to signs and symptoms of malnutrition Changes per AQUACULTURIST recommendations. Will order 120ml EPHP 4x daily with medpass. Will monitor weight trends. Lab / Micro Data 01/04/25 04:04 01/04/25 04:04 Labs: Laboratory Results - last 24 hr 01/03/25 11:53: POC Glucose 230 H 01/03/25 13:03: Potassium 6.0 H*, Lactic Acid 1.7 01/03/25 15:20: Sodium 135, Potassium 6.2 H*, Chloride 106, Carbon Dioxide 14.6 L, Anion Gap 15, BUN 53 H, Creatinine 2.20 H, Estim Creat Clear Calc 24.61 L, Est GFR (MDRD) Non-Af 30 L, BUN/Creatinine Ratio 24.1 H, Glucose 190 H, Calcium 10.5 01/03/25 15:22: POC Glucose 175 H 01/03/25 18:20: Sodium 135, Potassium 5.9 H, Chloride 103, Carbon Dioxide 18.6 L, Anion Gap 13, BUN 52 H, Creatinine 2.19 H, Estim Creat Clear Calc 24.72 L, EstGFR (MDRD) Non-Af 30 L, BUN/Creatinine Ratio 23.9 H, Glucose 177 H, Calcium 10.6 01/03/25 21:35: POC Glucose 151 H 01/03/25 22:55: Sodium 136, Potassium 6.4 H*, Chloride 103, Carbon Dioxide 15.7 L, Anion Gap 18 H, BUN 53 H, Creatinine 2.25 H, Estim Creat Clear Calc 24.06 L, Est GFR (MDRD) Non-Af 29 L, BUN/Creatinine Ratio 23.4 H, Glucose 168 H, Calcium 9.9 01/04/25 04:04: WBC 8.7, RBC 3.46 L, Hgb 10.4 L, Hct 32.0 L, MCV 92.5, MCH 30.1,MCHC 32.5, RDW Std Deviation 49.1 H, RDW Coeff of Disha 14.7 H, Plt Count 458 H, MPV 10.2, Sodium 133, Potassium 6.6 H*, Chloride 104, Carbon Dioxide 15.5 L, Anion Gap 14, BUN 52 H, Creatinine 2.27 H, Estim Creat Clear Calc 23.85 L, Est GFR (MDRD) Non-Af 29 L, BUN/Creatinine Ratio 23.0 H, Glucose 166 H, Calcium 10.0 01/04/25 06:32: POC Glucose 157 H Radiography Diagnostic Testing: Radiology Impression Chest X-Ray 01/03/25 13:20 IMPRESSION: Old left rib fractures are again seen. No acute osseous process is evident. Lungs appear clear of acute disease. No pleural effusion or pneumothorax is noted. The cardiomediastinal silhouette appears within the normal range. No evidence of acute cardiopulmonary disease. Reading Location: [id number] Abdomen/Pelvis CT 01/03/25 13:26 IMPRESSION: Status post right hemicolectomy with ileostomy as described. Postsurgical changes are seen at the operative site with possible small abscess. A repeat examination with oral contrast is recommended. A suprapubic catheter is seen within the urinary bladder. There is diffuse bladder wall thickening. OVERALL FINAL ASSESSMENT: . LI-RADS is not meant to be used in patients <18 years or patients with cirrhosisdue to congenital hepatic fibrosis or due to vascular disorders, because these patients have a lower chance of developing HCC. Reading Location: [facility] Rhythm Strip Rhythm Strip: Sinus Rhythm Rate: 98 Ectopy: None Physical Exam Const alert, oriented x3, no apparent distress and average body habitus Constitutional Narrative: Elderly male, fatigued and chronically ill-appearing, otherwise sitting back comfortably in bed, answering questions appropriately, in no acute distress. Stable. General Appearance: cooperative and comfortable HEENT normocephalic, head/scalp atraumatic, hearing grossly normal bilaterally, nasal mucous membranes and turbinates normal and moist oral mucous membranes Eyes PERRL, EOMs intact bilaterally and conjunctivae normal Neck full ROM Chest inspection of chest normal Resp normal respiratory effort, normal air movement, no use of accessory muscles and clear to auscultation bilaterally Cardio regular rate, regular rhythm, no murmurs and peripheral pulses 2+ throughout GI GI Narrative: Colostomy bag in place with normal-appearing stool output. Mild diffuse tenderness to palpation but abdomen otherwise soft and nondistended. Stable. Back/Spine normal ROM Extremity normal to inspection, full ROM and no pedal edema Skin no rashes or lesions noted Psych mental status grossly normal Assessment & Plan Assessment/Plan (1) Acute hyperkalemia: PLAN: Plan Patient is a 79-year-old male who presented to [facility] ED on 01/03/2025 with acute hyperkalemia. 1. Acute hyperkalemia ? Potassium 7.4 on admit. EKG showed peaked T waves and apparent mild QRS widening. Treated medically in the ED with significant improvement to 6.2 on recheck. Potassium at ER 5.9 on evening of 01/03 but with less aggressive medical treatment potassium worsened to 6.6 again on morning of 01/04. Will treat aggressively again today medically. Will check BMP at 12 PM and 6 PM today. As noted previously, creatinine remains at baseline around 2.2 and patient has had adequate urine output. No clear etiology for hyperkalemia asidefrom recent high potassium intake from Ensure drinks while in the TCU. Continueregular diet with potassium restriction. Hopeful that with aggressive treatmenttoday his potassium will be significantly improved tomorrow and he will be stable for discharge back to TCU. 2. Recent severe PRISCILA with uremia requiring temporary dialysis, CKD stage IV ? Recently required 3 HD sessions at [facility] for significant uremia. Creatinine 2.2 on admission here with BUN 53. Potassium improved with medical treatment as noted above. Patient with adequate urine output at this point. No indications for dialysis and no need for nephrology consult at this time. 3. Recent bowel perforation s/p hemicolectomy with ostomy placement ? See Dr. Londono's note from 12/26 for further details. Patient with mild diffuse abdominal pain on admit but abdomen otherwise soft and nondistended. CT abdomenpelvis without contrast showed expected postsurgical changes with no other acuteconcerns. Lactate normal. Has had normal ostomy output recently. No inpatientneeds at this time. 4. Recently diagnosed HFrEF with severe aortic stenosis ? See Dr. Londono's note from 12/26 for further details. Echo at [facility] Showed EF 30% and severe aortic stenosis. Recommendation was for TAVR evaluation once medically improved. Has been stable on Coreg 6.25 mg twice daily and isosorbide dinitrate 10 mg 3 times daily. Will continue these medications at this time. 5. Type 2 diabetes mellitus with diabetic neuropathy ? Hold home glimepiride and metformin. Will treat with sliding scale insulin with meals while inpatient, adjust as needed. Continue home gabapentin. 6. 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 Peña catheter in place and will continue this with plan for voiding trial after discharge. Continue home finasteride and tamsulosin. DVT prophylaxis: Heparin subcu CODE STATUS: Full code, verified Expected disposition: Back to TCU, 1 to 2 days Total clinical time spent by myself addressing the patient's medical issues, reviewing all the data, and collaborating with patient's care team: 35 minutes. Charges/Coding Visit Charges Inpatient E&M: 97026 Subs Hosp L2 01/04/25 1148 <Electronically signed by Jeremy Faith DO> Cosigner Signature (if applicable): CC: ~ Signed [facility] Work Phone: 1(363) 762-444106-12-2025 Progress note [facility] Medical Records Department [address] [place] [address] Progress Note - Hospitalist 01/04/25 1110 MR#: [id number] Acct: [id number] Name: JOAO BARNETT Rep #:[id number] : 1945 79 From: Jeremy leone DO PCP: ROBERTO FranklinC Status:ADM IN Location: MS2 ET018-1 Reason for Visit Reason for Visit: Diagnoses Hyperkalemia (01/03/25) Subjective Subjective Saw patient at bedside this morning. Patient appeared similar to yesterday, remains fatigued but otherwise resting comfortably in bed and in no acute distress. Denies any new concerns this morning. Objective Data Objective Data Vital Signs: Vital Signs Temp Pulse Resp BP Pulse Ox O2 Del Method 97.8 F 73 16 107/53 L 99 Room Air 01/04/25 10:30 01/04/25 10:30 01/04/25 10:30 01/04/25 10:30 01/04/25 10:30 01/04/25 10:30 Oxygen Delivery Method Room Air Weight: 62.868 kg Body Mass Index (BMI) 22.4 Intake & Output: Intake and Output for Last 24 Hours 01/02/25 01/03/25 01/04/25 23:59 23:59 23:59 Intake Total 1530 / 1530 100 / 100 Output Total 450 / 450 360 / 360 Balance 1080 / 1080 -260 / -260 Medical Nutrition Assessment Dietitian: Malnutrition Criteria Met Start: 01/03/25 16:33 Freq: Status: Active Protocol: Document 01/03/25 16:33 SB (Rec: 01/03/25 16:34 SB [id number]) Nutrition Malnutrition Evidence of Yes Malnutrition Exists Malnutrition (severe Acute Illness/Injury ): Evidenced By Suboptimal Energy Intake (Severe),Weight Loss (Severe), Physical Changes (Moderate) Clinical Problem Acute Disease or Injury Related Malnutrition Etiology severe related to inadequate oral intake and dysphagia Signs/Symptoms as evidenced by PO meeting <50% of estimated nutrition needs x 1 month, 15% unintentional weight loss x 1 month, and moderate wasting in clavicle and orbitals. Status Active Problem Swallowing Difficulty Etiology likely related to recent intubation Signs/Symptoms as evidenced by minced/moist texture with mildly thick liquids. Status Active Problem Recommendation Dietitian Adjust to liberal regular diet with potassium Recommendations/ restriction due to signs and symptoms of malnutrition Changes per AQUACULTURIST recommendations. Will order 120ml EPHP 4x daily with medpass. Will monitor weight trends. Lab / Micro Data 01/04/25 04:04 01/04/25 04:04 Labs: Laboratory Results - last 24 hr 01/03/25 11:53: POC Glucose 230 H 01/03/25 13:03: Potassium 6.0 H*, Lactic Acid 1.7 01/03/25 15:20: Sodium 135, Potassium 6.2 H*, Chloride 106, Carbon Dioxide 14.6 L, Anion Gap 15, BUN 53 H, Creatinine 2.20 H, Estim Creat Clear Calc 24.61 L, Est GFR (MDRD) Non-Af 30 L, BUN/Creatinine Ratio 24.1 H, Glucose 190 H, Calcium 10.5 01/03/25 15:22: POC Glucose 175 H 01/03/25 18:20: Sodium 135, Potassium 5.9 H, Chloride 103, Carbon Dioxide 18.6 L, Anion Gap 13, BUN52 H, Creatinine 2.19 H, Estim Creat Clear Calc 24.72 L, EstGFR (MDRD) Non-Af 30 L, BUN/Creatinine Ratio 23.9 H, Glucose 177 H, Calcium 10.6 01/03/25 21:35: POC Glucose 151 H 01/03/25 22:55: Sodium 136, Potassium 6.4 H*, Chloride 103, Carbon Dioxide 15.7 L, Anion Gap 18 H, BUN 53 H, Creatinine 2.25 H, Estim Creat Clear Calc 24.06 L, Est GFR (MDRD) Non-Af 29 L, BUN/Creatinine Ratio 23.4 H, Glucose 168 H, Calcium 9.9 01/04/25 04:04: WBC 8.7, RBC 3.46 L, Hgb 10.4 L, Hct 32.0 L, MCV 92.5, MCH 30.1,MCHC 32.5, RDW Std Deviation 49.1 H, RDW Coeff of Disha 14.7 H, Plt Count 458 H, MPV 10.2, Sodium 133, Potassium 6.6 H*, Chloride 104, Carbon Dioxide 15.5 L, Anion Gap 14, BUN 52 H, Creatinine 2.27 H, Estim Creat Clear Calc 23.85 L, Est GFR (MDRD) Non-Af 29 L, BUN/Creatinine Ratio 23.0 H, Glucose 166 H, Calcium 10.0 01/04/25 06:32: POC Glucose 157 H Radiography Diagnostic Testing: Radiology Impression Chest X-Ray 01/03/25 13:20 IMPRESSION: Old left rib fractures are again seen. No acute osseous process is evident. Lungs appear clear of acute disease. No pleural effusion or pneumothorax is noted. The cardiomediastinal silhouette appears within the normal range. No evidence of acute cardiopulmonary disease. Reading Location: [id number] Abdomen/Pelvis CT 01/03/25 13:26 IMPRESSION: Status post right hemicolectomy with ileostomy as described. Postsurgical changes are seen at the operative site with possible small abscess. A repeat examination with oral contrast is recommended. A suprapubic catheter is seen within the urinary bladder. There is diffuse bladder wall thickening. OVERALL FINAL ASSESSMENT: . LI-RADS is not meant to be used in patients <18 years or patients with cirrhosisdue to congenital hepatic fibrosis or due to vascular disorders, because these patients have a lower chance of developing HCC. Reading Location: [facility] Rhythm Strip Rhythm Strip: Sinus Rhythm Rate: 98 Ectopy: None Physical Exam Const alert, oriented x3, no apparent distress and average body habitus Constitutional Narrative: Elderly male, fatigued and chronically ill-appearing, otherwise sitting back comfortably in bed, answering questions appropriately, in no acute distress. Stable. General Appearance: cooperative and comfortable HEENT normocephalic, head/scalp atraumatic, hearing grossly normal bilaterally, nasal mucous membranes and turbinates normal and moist oral mucous membranes Eyes PERRL, EOMs intact bilaterally and conjunctivae normal Neck full ROM Chest inspection of chest normal Resp normal respiratory effort, normal air movement, no use of accessory muscles and clear to auscultation bilaterally Cardio regular rate, regular rhythm, no murmurs and peripheral pulses 2+ throughout GI GI Narrative: Colostomy bag in place with normal-appearing stool output. Mild diffuse tenderness to palpation butabdomen otherwise soft and nondistended. Stable. Back/Spine normal ROM Extremity normal to inspection, full ROM and no pedal edema Skin no rashes or lesions noted Psych mental status grossly normal Assessment & Plan Assessment/Plan (1) Acute hyperkalemia: PLAN: Plan Patient is a 79-year-old male who presented to [facility] ED on 01/03/2025 with acute hyperkalemia. 1. Acute hyperkalemia ? Potassium 7.4 on admit. EKG showed peaked T waves and apparent mild QRS widening. Treated medically in the ED with significant improvement to 6.2 on recheck. Potassium at ER 5.9 on evening of 01/03 but with less aggressive medical treatment potassium worsened to 6.6 again on morning of 01/04. Will treat aggressively again today medically. Will check BMP at 12 PM and 6 PM today. As noted previously, creatinine remains at baseline around 2.2 and patient has had adequate urine output. No clear etiology for hyperkalemia asidefrom recent high potassium intake from Ensure drinks while in the TCU. Continueregular diet with potassium restriction. Hopeful that with aggressive treatmenttoday his potassium will be significantly improved tomorrow and he will be stable for discharge back to TCU. 2. Recent severe PRISCILA with uremia requiring temporary dialysis, CKD stage IV ? Recently required [address] [facility] reportedly for significant uremia. Creatinine 2.2 on admission here with BUN 53. Potassium improved with medical treatment as noted above. Patient with adequate urine output at this point. No indications for dialysis and no need for nephrology consult at this time. 3. Recent bowel perforation s/p hemicolectomy with ostomy placement ? See Dr. Londono's note from 12/26 for further details. Patient with mild diffuse abdominal pain on admit but abdomen otherwise soft and nondistended. CT abdomenpelvis without contrast showed expected postsurgical changes with no other acuteconcerns. Lactate normal. Has had normal ostomy output recently. No inpatientneeds at this time. 4. Recently diagnosed HFrEF with severe aortic stenosis ? See Dr. Londono's note from 12/26 for further details. Echo at [facility] Showed EF 30% and severe aortic stenosis. Recommendation was for TAVR evaluation once medically improved. Has been stable on Coreg 6.25 mg twice daily and isosorbide dinitrate 10 mg 3 times daily. Will continue these medications at this time. 5. Type 2 diabetes mellitus with diabetic neuropathy ? Hold home glimepiride and metformin. Will treat with sliding scale insulin with meals while inpatient, adjust as needed. Continue home gabapentin. 6. 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 Peña catheter in place and will continue this with plan for voiding trial after discharge. Continue home finasteride and tamsulosin. DVT prophylaxis: Heparin subcu CODE STATUS: Full code, verified Expected disposition: Back to TCU, 1 to 2 days Total clinical time spent by myself addressing the patient's medical issues, reviewing all the data, and collaborating with patient's care team: 35 minutes. Charges/Coding Visit Charges Inpatient E&M: 70401 Subs Hosp L2 01/04/25 1148 Cosigner Signature (if applicable): CC: ~ Signed [facility]06-12-2025 History and physical note Author Jeremy Faith [facility] Note Date/Time January 03, 2025 10:0 4pm [facility] Medical Records Department [address] [place] [address] H&P Exam - Hospitalist 01/03/25 1243 MR#: [id number] Acct: [id number] Name: JOAO BARNETT Rep #:[id number] : 1945 79 From: Jeremy leone DO PCP: DEANNA Franklin Status:ADM IN Location: [facility] [id number] HPI - General General Date of Admission: 01/03/25 Date of Service: 01/03/25 Chief Complaint: Acute hyperkalemia HPI Narrative JOAO BARNETT, is a 79 M who presented to [facility] ED on 01/03/2025 with acute hyperkalemia. [facility] and was then discharged to our TCU. That hospitalization was complicated by perforated bowel s/p right hemicolectomy and partial colectomy of proximal transverse colon with wound VAC placement, HFrEF with EF 30%, severe arctic stenosis, severe PRISCILA with uremia s/p 3 sessions of temporary dialysis with catheter subsequently removed, urinary retention with Peña still in place, and oropharyngeal dysphagia on modified diet. See Dr. Londono's note from 12/26 for further details. Patient had been doing fairly well atrehab recently. However, he was found to have a potassium of 6.6 yesterday. Hewas given a dose of Kayexalate but it was thought this could be an erroneous result. However, repeat potassium was 7.4 this morning and EKG showed changes consistent with hyperkalemia. He was then brought to the ED for further evaluation. In the ED he was asymptomatic. He was given insulin, albuterol, Kayexalate, bicarbonate, calcium gluconate and IV fluids at that time. Hospitalist was then contacted for admission. I saw the patient at bedside in the ED, 2 other family members present. Patient was mildly fatigued appearing but otherwise sitting back comfortably in bed and in no acute distress. On chart review he was previously on losartan but this was stopped during his recent hospitalization. He and family do note that he had an issue with hyperkalemia in the past that improved quickly with medical treatment. He has not been eating and drinking very well per his report, but his son does note that he has been drinking 3-4 ensures per day and these have a fairly high potassium content. Patient otherwise denies any acute concerns at this time. [facility] Medical History (Updated 01/03/25 @ 14:17 by Sharon Burkett) Kidney disease Irregular heart beat CKD (chronic kidney disease), stage IV Wears glasses Wears dentures BPH (benign prostatic hyperplasia) Arthritis Prostate disease Low iron History of diverticulitis Heartburn Former smoker Leg cramps History of echocardiogram Hypertrophic scar Carotid stenosis, left Sebaceous cyst Amaurosis fugax of right eye Sciatica Hyperlipidemia Osteoarthritis Hemorrhoid GERD (gastroesophageal reflux disease) HTN (hypertension) Diabetes Carotid stenosis Home Medications ?Medication ?Instructions ?Recorded ?Last Taken ?Type aspirin 81 mg tablet,delayed 81 mg PO DAILY@0800 heart health 04/16/17 11/26/24 09:00 History release glimepiride 2 mg tablet 2 mg PO BREAKFAST dm 7 11/26/24 09:00 History hydrochlorothiazide 25 mg tablet 25 mg PO DAILY bp 11/26/24 09:00 History metformin 1,000 mg tablet 1,000 mg PO BID dm 04/16/17 11/26/24 19:30 History tamsulosin 0.4 mg capsule 0.4 mg PO QHS bph 04/16/17 0 11/26/24 22:30 History cholecalciferol (vitamin D3) 25 25 mcg PO DAILY SUPPLE MENT 04/05/23 11/26/24 09:00 History mcg (1,000 unit) capsule zinc acetate 25 mg (zinc) capsule 50 mg PO DAILY SUPPL EMENT 04/05/23 11/26/24 09:00 History ascorbic acid (vitamin C) 500 mg 500 mg PO DAILY SUPPL EMENT 09/15/24 11/26/24 09:00 History capsule ferrous sulfate 325 mg (65 mg 325 mg PO QDAY SUPPLEMEN T 09/15/24 11/26/24 09:00 History iron) tablet (Feosol) gabapentin 300 mg capsule 300 mg PO QHS PAIN 10/31/24 11/25/24 22:30 History amlodipine 10 mg tablet 10 mg PO DAILY htn 11/27/24 11/26/24 09:00 History acetaminophen 500 mg tablet 500 mg PO Q6H #30 tabs 02/16 Unknown Rx methocarbamol 500 mg tablet 750 mg (1.5 x 500 mg) PO T ID PRN 11/29/24 Unknown Rx pain/spasms #60 tabs oxycodone 5 mg tablet 2.5 - 5 mg (0.5 - 1 x 5 mg) PO Q6H 11/29/24 Unknown Rx PRN pain 7 days #28 tabs sennosides 8.6 mg-docusate sodium 2 tab PO BID PRN con stipation #30 11/29/24 Unknown Rx 50 mg tablet (Stimulant Laxative tabs Plus) Allergy/AdvReac Type Severity Reaction Status Date / Time atorvastatin (From Lipitor) Allergy INTOLERANCE Verified 12/26/24 20:42 ezetimibe (From Zetia) Allergy MYALGIA Verified 12/26/24 20:42 pravastatin Allergy MYALGIAS Verified 12/26/24 20:42 simvastatin (From Zocor) Allergy INTOLERANCE Verified 12/26/24 20:42 sitagliptin (From Januvia) Allergy INTOLERANCE Verified 12/26/24 20:42 tetanus and diphtheria Allergy Rash Verified 12/01/24 22:00 toxoids Sxbvmca-OYX-DsB Reductase AdvReac Other Verified 12/01/24 22:00 Inhibitor (Uhdaknp-Gbq-Jtv Reductase Inhibitor) Family History Father Diabetes Heart disease Myocardial infarction Mother CAD (coronary artery disease) Arthritis Surgical History (Updated 01/03/25 @ 12:[address] Wayne Madsen MD) History of ileostomy History of right hemicolectomy History of partial colectomy History of right-sided carotid endarterectomy History of right-sided carotid endarterectomy (~11/2017) History of umbilical hernia S/P ventral herniorrhaphy S/P inguinal hernia repair S/P colonoscopy Social History household members: spouse Smoking Status: Former smoker alcohol intake: never substance use type: does not use ROS Constitutional Constitutional: Reports fatigue; Denies chills, fever(s) or weakness Eyes Eyes: Denies change in vision Cardiovascular Cardiovascular: Denies chest pain Respiratory/Chest Respiratory/Chest: Denies shortness of breath at rest Gastrointestinal Gastrointestinal: Denies abdominal pain Musculoskeletal Musculoskeletal: Denies arthralgias or myalgias Vital Signs Vital Signs Vital Signs: 01/03/25 08:46 01/03/25 08:46 01/03/25 09:38 Temperature 97.9 F Temperature Source Oral Pulse Rate 99 90 Respiratory Rate 18 18 Respiratory Effort Normal Non-Labored Respiratory Pattern Normal Normal Blood Pressure 135/79 H Blood Pressure Mean 97 Pulse Ox 100 Oxygen Delivery Method Room Air 01/03/25 09:46 01/03/25 11:51 Temperature Temperature Source Pulse Rate 117 H 99 Respiratory Rate 19 H 16 Respiratory Effort Respiratory Pattern Blood Pressure 102/70 131/74 H Blood Pressure Mean 80 93 Pulse Ox 100 99 Oxygen Delivery Method Room Air Room Air Weight Weight: 65.5 kg Body Mass Index (BMI) 23.3 Physical Exam Const alert, oriented x3, no apparent distress and average body habitus Constitutional Narrative: Elderly male, fatigued and chronically ill-appearing, otherwise sitting back comfortably in bed, answering questions appropriately, in no acute distress. General Appearance: cooperative and comfortable HEENT normocephalic, head/scalp atraumatic, hearing grossly normal bilaterally, nasal mucous membranes and turbinates normal and moist oral mucous membranes Eyes PERRL, EOMs intact bilaterally and conjunctivae normal Neck full ROM Chest inspection of chest normal Resp normal respiratory effort, normal air movement, no use of accessory muscles and clear to auscultation bilaterally Cardio no murmurs and peripheral pulses 2+ throughout Cardio Narrative: Tachycardic, regular rhythm. GI GI Narrative: Colostomy bag in place with normal-appearing stool output. Mild diffuse tenderness to palpation but abdomen otherwise soft and nondistended. Back/Spine normal ROM Extremity normal to inspection, full ROM and no pedal edema Skin no rashes or lesions noted Psych mental status grossly normal Results Lab / Micro Data 01/03/25 18:20 Labs: Laboratory Results - last 24 hr 01/03/25 09:13: Sodium 130 L, Potassium 7.4 H*, Chloride 106, Carbon Dioxide 11.5 L, Anion Gap 13, BUN 58 H, Creatinine 2.41 H, Estim Creat Clear Calc 22.80 L, Est GFR (MDRD) Non-Af 27 L, BUN/Creatinine Ratio 23.9 H, Glucose 273 H, Calcium 9.5 01/03/25 11:53: POC Glucose 230 H Assessment & Plan Assessment/Plan (1) Acute hyperkalemia: PLAN: Plan Patient is a 79-year-old male who presented to [facility] ED on 01/03/2025 with acute hyperkalemia. 1. Acute hyperkalemia, improving ? Admit under inpatient status to PCU. Potassium 7.4 on admit. EKG showed peaked T waves and apparent mild QRS widening. Treated medically in the ED withsignificant improvement to 6.2 on recheck. Treated again medically at that timewith most recent potassium 5.9 this evening. Notably creatinine at baseline 2.2and patient with adequate urine output. No clear etiology for hyperkalemia aside from high potassium intake from Ensure drinks while in TCU along with decreased renal clearance in setting of CKD. Will recheck potassium level againtomorrow morning. Continue to treat medically as needed. Repeat EKG this evening showed improvement in T waves and QRS widening. Continue renal diet. May be okay for discharge back to TCU tomorrow if he remains stable. 2. Recent severe PRISCILA with uremia requiring temporary dialysis, CKD stage IV ? Recently required 3 HD sessions at [facility] for significant uremia. Creatinine 2.2 on admission here with BUN 53. Potassium improved with medical treatment as noted above. Patient with adequate urine output at this point. No indications for dialysis and no need for nephrology consult at this time. Follow-up a.m. BMP and continue to monitor urine output. 3. Recent bowel perforation s/p hemicolectomy with ostomy placement ? See Dr. Londono's note from 12/26 for further details. Patient with mild diffuse abdominal pain on admit but abdomen otherwise soft and nondistended. CT abdomenpelvis without contrast showed expected postsurgical changes with no other acuteconcerns. Lactate normal. Has had normal ostomy output recently. No inpatientneeds at this time. 4. Recently diagnosed HFrEF with severe aortic stenosis ? See Dr. Londono's note from 12/26 for further details. Echo at [facility] Showed EF 30% and severe aortic stenosis. Recommendation was for TAVR evaluation once medically improved. Has been stable on Coreg 6.25 mg twice daily and isosorbide dinitrate 10 mg 3 times daily. Will continue these medications at this time. 5. Type 2 diabetes mellitus with diabetic neuropathy ? Hold home glimepiride and metformin. Will treat with sliding scale insulin with meals while inpatient, adjust as needed. Continue home gabapentin. 6. 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 Peña catheter in place and will continue this with plan for voiding trial after discharge. Continue home finasteride and tamsulosin. DVT prophylaxis: Heparin subcu CODE STATUS: Full code, verified Expected disposition: Likely back to TCU, 2 to 3 days Total clinical time spent by myself addressing the patient's medical issues, reviewing all the data, and collaborating with patient's care team: 75 minutes. Charges/Coding Visit Charges Inpatient E&M: 75887 Init Hosp L3 01/03/252203 <Electronically signed by Jeremy Faith DO> Cosigner Signature (if applicable): CC: DEANNA Coronado; Dr. Jeremy Faith DO~ Signed [facility] Work Phone: [phone] History and physical note [facility] Medical Records Department [address] [place] [id number] H&P Exam - Hospitalist 01/03/25 1243 MR#: [id number] Acct: [id number] Name: JOAO BARNETT Rep #:[id number] : 1945 79 From: Jeremy leone DO PCP: DEANNA Franklin Status:ADM IN Location: [facility] [id number] [facility] General Date of Admission: 01/03/25 Date of Service: 01/03/25 Chief Complaint: Acute hyperkalemia HPI Narrative JOAO BARNETT, is a 79 M who presented to [facility] ED on 01/03/2025 with acute hyperkalemia. [facility] and was thendischarged to our TCU. That hospitalization was complicated by perforated bowel s/p right hemicolectomy and partial colectomy of proximal transverse colon with wound VAC placement, HFrEF with EF 30%,severe arctic stenosis, severe PRISCILA with uremia s/p 3 sessions of temporary dialysis with catheter subsequently removed, urinary retention with Peña still in place, and oropharyngeal dysphagia on modified diet. See Dr. Londono's note from 12/26 for further details. Patient had been doing fairly well atrehab recently. However, he was found to have a potassium of 6.6 yesterday. Hewas given a dose of Kayexalate but it was thought this could be an erroneous result. However, repeat potassium was 7.4 thismorning and EKG showed changes consistent with hyperkalemia. He was then brought to the ED for further evaluation. In the ED he was asymptomatic. He was given insulin, albuterol, Kayexalate, bicarbonate, calcium gluconate and IV fluids at that time. Hospitalist was then contacted for admission. I saw the patient at bedside in the ED, 2 other family members present. Patient was mildly fatigued appearing but otherwise sitting back comfortably in bed and in no acute distress. On chart review he was previously on losartan but this was stopped during his recent hospitalization. He and family do note that he had an issue with hyperkalemia in the past that improved quickly with medical treatment. He has not been eating and drinking very well per his report, but his son does note that he has been drinking 3-4 ensures per day and these have a fairly high potassium content. Patient otherwise denies any acute concerns at this time. [facility] Medical History (Updated 01/03/25 @ 14:17 by Sharon Burkett) Kidney disease Irregular heart beat CKD (chronic kidney disease), stage IV Wears glasses Wears dentures BPH (benign prostatic hyperplasia) Arthritis Prostate disease Low iron History of diverticulitis Heartburn Former smoker Leg cramps History of echocardiogram Hypertrophic scar Carotid stenosis, left Sebaceous cyst Amaurosis fugax of right eye Sciatica Hyperlipidemia Osteoarthritis Hemorrhoid GERD (gastroesophageal reflux disease) HTN (hypertension) Diabetes Carotid stenosis Home Medications ?Medication ?Instructions ?Recorded ?Last Taken ?Type aspirin 81 mg tablet,delayed 81 mg PO DAILY@0800 [facility] 04/16/17 11/26/24 09:00 History release glimepiride 2 mg tablet 2 mg PO BREAKFAST dm 7 11/26/24 09:00 History hydrochlorothiazide 25 mg tablet 25 mg PO DAILY bp 11/26/24 09:00 History metformin 1,000 mg tablet 1,000 mg PO BID dm 04/16/17 11/26/24 19:30 History tamsulosin 0.4 mg capsule 0.4 mg PO QHS bph 04/16/17 0 11/26/24 22:30 History cholecalciferol (vitamin D3) 25 25 mcg PO DAILY SUPPLE MENT 04/05/23 11/26/24 09:00 History mcg (1,000 unit) capsule zinc acetate 25 mg (zinc) capsule 50 mg PO DAILY SUPPL EMENT 04/05/23 11/26/24 09:00 History ascorbic acid (vitamin C) 500 mg 500 mg PO DAILY SUPPL EMENT 09/15/24 11/26/24 09:00 History capsule ferrous sulfate 325 mg (65 mg 325 mg PO QDAY SUPPLEMEN T 09/15/24 11/26/24 09:00 History iron) tablet (Feosol) gabapentin 300 mg capsule 300 mg PO QHS PAIN 10/31/24 11/25/24 22:30 History amlodipine 10 mg tablet 10 mg PO DAILY htn 11/27/24 11/26/24 09:00 History acetaminophen 500 mg tablet 500 mg PO Q6H #30 tabs 02/16 Unknown Rx methocarbamol 500 mg tablet 750 mg (1.5 x 500 mg) PO T ID PRN 11/29/24 Unknown Rx pain/spasms #60 tabs oxycodone 5 mg tablet 2.5 - 5 mg (0.5 - 1 x 5 mg) PO Q6H 11/29/24 Unknown Rx PRN pain 7 days #28 tabs sennosides 8.6 mg-docusate sodium 2 tab PO BID PRN con stipation #30 11/29/24 Unknown Rx 50 mg tablet (Stimulant Laxative tabs Plus) Allergy/AdvReac Type Severity Reaction Status Date / Time atorvastatin (From Lipitor) Allergy INTOLERANCE Verified 12/26/24 20:42 ezetimibe (From Zetia) Allergy MYALGIA Verified 12/26/24 20:42 pravastatin Allergy MYALGIAS Verified 12/26/24 20:42 simvastatin (From Zocor) Allergy INTOLERANCE Verified 12/26/24 20:42 sitagliptin (From Januvia) Allergy INTOLERANCE Verified 12/26/24 20:42 tetanus and diphtheria Allergy Rash Verified 12/01/24 22:00 toxoids Xsfsfrj-XBD-JnX Reductase AdvReac Other Verified 12/01/24 22:00 Inhibitor (Mhmclrv-Fgx-Sdd Reductase Inhibitor) Family History Father Diabetes Heart disease Myocardial infarction Mother CAD (coronary artery disease) Arthritis Surgical History (Updated 01/03/25 @ 12:[address] Wayne Madsen MD) History of ileostomy History of right hemicolectomy History of partial colectomy History of right-sided carotid endarterectomy History of right-sided carotid endarterectomy (~11/2017) History of umbilical hernia S/P ventral herniorrhaphy S/P inguinal hernia repair S/P colonoscopy Social History household members: spouse Smoking Status: Former smoker alcohol intake: never substance use type: does not use ROS Constitutional Constitutional: Reports fatigue; Denies chills, fever(s) or weakness Eyes Eyes: Denies change in vision Cardiovascular Cardiovascular: Denies chest pain Respiratory/Chest Respiratory/Chest: Denies shortness of breath at rest Gastrointestinal Gastrointestinal: Denies abdominal pain Musculoskeletal Musculoskeletal: Denies arthralgias or myalgias Vital Signs Vital Signs Vital Signs: 01/03/25 08:46 01/03/25 08:46 01/03/25 09:38 Temperature 97.9 F Temperature Source Oral Pulse Rate 99 90 Respiratory Rate 18 18 Respiratory Effort Normal Non-Labored Respiratory Pattern Normal Normal Blood Pressure 135/79 H Blood Pressure Mean 97 Pulse Ox 100 Oxygen Delivery Method Room Air 01/03/25 09:46 01/03/25 11:51 Temperature Temperature Source Pulse Rate 117 H 99 Respiratory Rate 19 H 16 Respiratory Effort Respiratory Pattern Blood Pressure 102/70 131/74 H Blood Pressure Mean 80 93 Pulse Ox 100 99 Oxygen Delivery Method Room Air Room Air Weight Weight: 65.5 kg Body Mass Index (BMI) 23.3 Physical Exam Const alert, oriented x3, no apparent distress and average body habitus Constitutional Narrative: Elderly male, fatigued and chronically ill-appearing, otherwise sitting back comfortably in bed, answering questions appropriately, in no acute distress. General Appearance: cooperative and comfortable HEENT normocephalic, head/scalp atraumatic, hearing grossly normal bilaterally, nasal mucous membranes and turbinates normal and moist oral mucous membranes Eyes PERRL, EOMs intact bilaterally and conjunctivae normal Neck full ROM Chest inspection of chest normal Resp normal respiratory effort, normal air movement, no use of accessory muscles and clear to auscultation bilaterally Cardio no murmurs and peripheral pulses 2+ throughout Cardio Narrative: Tachycardic, regular rhythm. GI GI Narrative: Colostomy bag in place with normal-appearing stool output. Mild diffuse tenderness to palpation butabdomen otherwise soft and nondistended. Back/Spine normal ROM Extremity normal to inspection, full ROM and no pedal edema Skin no rashes or lesions noted Psych mental status grossly normal Results Lab / Micro Data 01/03/25 18:20 Labs: Laboratory Results - last 24 hr 01/03/25 09:13: Sodium 130 L, Potassium 7.4 H*, Chloride 106, Carbon Dioxide 11.5 L, Anion Gap 13, BUN 58 H, Creatinine 2.41 H, Estim Creat Clear Calc 22.80 L, Est GFR (MDRD) Non-Af 27 L, BUN/Creatinine Ratio 23.9 H, Glucose 273 H, Calcium 9.5 01/03/25 11:53: POC Glucose 230 H Assessment & Plan Assessment/Plan (1) Acute hyperkalemia: PLAN: Plan Patient is a 79-year-old male who presented to [facility] ED on 01/03/2025 with acute hyperkalemia. 1. Acute hyperkalemia, improving ? Admit under inpatient status to PCU. Potassium 7.4 on admit. EKG showed peaked T waves and apparent mild QRS widening. Treated medically in the ED withsignificant improvement to 6.2 on recheck. Treated again medically at that timewith most recent potassium 5.9 this evening. Notably creatinine at baseline 2.2and patient with adequate urine output. No clear etiology for hyperkalemia aside from high potassium intake from Ensure drinks while in TCU along with decreased renal clearance in setting of CKD. Will recheck potassium level againtomorrow morning. Continue to treat medically as needed. Repeat EKG this evening showed improvement in T waves and QRS widening. Continue renal diet. May be okay for discharge back to TCU tomorrow if he remains stable. 2. Recent severe PRISCILA with uremia requiring temporary dialysis, CKD stage IV ? Recently required [address] [facility] reportedly for significant uremia. Creatinine 2.2 on admission here with BUN 53. Potassium improved with medical treatment as noted above. Patient with adequate urine output at this point. No indications for dialysis and no need for nephrology consult at this time. Follow-up a.m. BMP and continue to monitor urine output. 3. Recent bowel perforation s/p hemicolectomy with ostomy placement ? See Dr. Londono's note from 12/26 for further details. Patient with mild diffuse abdominal pain on admit but abdomen otherwise soft and nondistended. CT abdomenpelvis without contrast showed expected postsurgical changes with no other acuteconcerns. Lactate normal. Has had normal ostomy output recently. No inpatientneeds at this time. 4. Recently diagnosed HFrEF with severe aortic stenosis ? See Dr. Londono's note from 12/26 for further details. Echo at [facility] Showed EF 30% and severe aortic stenosis. Recommendation was for TAVR evaluation once medically improved. Has been stable on Coreg 6.25 mg twice daily and isosorbide dinitrate 10 mg 3 times daily. Will continue these medications at this time. 5. Type 2 diabetes mellitus with diabetic neuropathy ? Hold home glimepiride and metformin. Will treat with sliding scale insulin with meals while inpatient, adjust as needed. Continue home gabapentin. 6. 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 Peña catheter in place and will continue this with plan for voiding trial after discharge. Continue home finasteride and tamsulosin. DVT prophylaxis: Heparin subcu CODE STATUS: Full code, verified Expected disposition: Likely back to TCU, 2 to 3 days Total clinical time spent by myself addressing the patient's medical issues, reviewing all the data, and collaborating with patient's care team: 75 minutes. Charges/Coding Visit Charges Inpatient E&M: 93711 Init Hosp L3 01/03/252203 Cosigner Signature (if applicable): CC: DEANNA Coronado; Dr. Jeremy Faith, DO~ Signed [facility]06-11-2025 Discharge summary Author Wayne Madsen [facility] Note Date/Time January 03, 2025 12:5 0pm [facility] Medical Records Department [address] [place] [address] Emergency Department Summary 01/03/25 MR#: [id number] Acct: [id number] Name: JOAO BARNETT Rep #:[id number] : 1945 79 From: Wayne Madsen MD PCP: DEANNA Franklin Status:REG ER Location: ED HPI History of Present Illness Chief Complaint: Abn Labs Detail of Chief Complaint: Elevated potassium. Informant: patient Onset/Context/Timing Onset: Today Narrative Narrative: 79-year-old male recent history of mesenteric ischemia with abdominal surgery bowel resection and colostomy. He was sent from this hospital to [place]. Now heis recovering in the transitional care unit. Today had elevated potassium he was treated with Kayexalate they repeated the potassium level is actually higherat 7.4 sitting down the emergency department. He has known chronic kidney disease, diabetes and hypertension. Prior similar symptoms: No Recent Illness/Hospitalization: Yes PFSH [facility] Medical History CKD (chronic kidney disease), stage IV Wears glasses Wears dentures BPH (benign prostatic hyperplasia) Arthritis Prostate disease Low iron History of diverticulitis Heartburn Former smoker Leg cramps History of echocardiogram Hypertrophic scar Carotid stenosis, left Sebaceous cyst Amaurosis fugax of right eye Sciatica Hyperlipidemia Osteoarthritis Hemorrhoid GERD (gastroesophageal reflux disease) HTN (hypertension) Diabetes Carotid stenosis Home Medications ?Medication ?Instructions ?Recorded ?Last Taken ?Type aspirin 81 mg tablet,delayed 81 mg PO DAILY@0800 [facility] 04/16/17 11/26/24 09:00 History release glimepiride 2 mg tablet 2 mg PO BREAKFAST dm 7 11/26/24 09:00 History hydrochlorothiazide 25 mg tablet 25 mg PO DAILY bp 11/26/24 09:00 History metformin 1,000 mg tablet 1,000 mg PO BID dm 04/16/17 11/26/24 19:30 History tamsulosin 0.4 mg capsule 0.4 mg PO QHS bph 04/16/17 0 11/26/24 22:30 History cholecalciferol (vitamin D3) 25 25 mcg PO DAILY SUPPLE MENT 04/05/23 11/26/24 09:00 History mcg (1,000 unit) capsule zinc acetate 25 mg (zinc) capsule 50 mg PO DAILY SUPPL EMENT 04/05/23 11/26/24 09:00 History ascorbic acid (vitamin C) 500 mg 500 mg PO DAILY SUPPL EMENT 09/15/24 11/26/24 09:00 History capsule ferrous sulfate 325 mg (65 mg 325 mg PO QDAY SUPPLEMEN T 09/15/24 11/26/24 09:00 History iron) tablet (Feosol) gabapentin 300 mg capsule 300 mg PO QHS PAIN 10/31/24 11/25/24 22:30 History amlodipine 10 mg tablet 10 mg PO DAILY htn 11/27/24 11/26/24 09:00 History acetaminophen 500 mg tablet 500 mg PO Q6H #30 tabs 02/16 Unknown Rx methocarbamol 500 mg tablet 750 mg (1.5 x 500 mg) PO T ID PRN 11/29/24 Unknown Rx pain/spasms #60 tabs oxycodone 5 mg tablet 2.5 - 5 mg (0.5 - 1 x 5 mg) PO Q6H 11/29/24 Unknown Rx PRN pain 7 days #28 tabs sennosides 8.6 mg-docusate sodium 2 tab PO BID PRN con stipation #30 11/29/24 Unknown Rx 50 mg tablet (Stimulant Laxative tabs Plus) Allergy/AdvReac Type Severity Reaction Status Date / Time atorvastatin (From Lipitor) Allergy INTOLERANCE Verified 12/26/24 20:42 ezetimibe (From Zetia) Allergy MYALGIA Verified 12/26/24 20:42 pravastatin Allergy MYALGIAS Verified 12/26/24 20:42 simvastatin (From Zocor) Allergy INTOLERANCE Verified 12/26/24 20:42 sitagliptin (From Januvia) Allergy INTOLERANCE Verified 12/26/24 20:42 tetanus and diphtheria Allergy Rash Verified 12/01/24 22:00 toxoids Nbnlkdd-RVR-WdE Reductase AdvReac Other Verified 12/01/24 22:00 Inhibitor (Eskxywc-Brh-Pak Reductase Inhibitor) Family History Father Diabetes Heart disease Myocardial infarction Mother CAD (coronary artery disease) Arthritis Surgical History History of ileostomy History of right hemicolectomy History of partial colectomy History of right-sided carotid endarterectomy History of right-sided carotid endarterectomy (~11/2017) History of umbilical hernia S/P ventral herniorrhaphy S/P inguinal hernia repair S/P colonoscopy Social History household members: spouse Smoking Status: Former smoker alcohol intake: never substance use type: does not use ROS ROS ED ROS Narrative Mild nausea but no vomiting. Constitutional Constitutional ED: Denies chills or fever(s) Eyes Eyes: Denies blurry vision ENT ENT ED: Denies ear pain Cardiovascular Cardiovascular: Denies chest pain Respiratory/Chest Respiratory/Chest: Denies cough or dyspnea Gastrointestinal Gastrointestinal: Reports nausea; Denies abdominal pain or vomiting Genitourinary Genitourinary ED: Denies dysuria or hematuria Musculoskeletal Musculoskeletal: Denies arthralgias Integumentary Denies abscess Neurologic Neurologic: Denies headache(s) Psychiatric Psychiatric: Denies anxiety Endocrine Endocrinology: Denies cold intolerance Hematologic/Lymphatic Hematologic/Lymphatic: Reports none Allergic/Immunologic Allergic/Immunologic ED: Denies mouth swelling, tongue swelling or urticaria EXAM Physical Exam Narrative Exam Narrative: 79-year-old male sitting upright in bed. Vital signs stable afebrile. H EENT exam pupils round reactive light. Moist mucous membranes. Neck nontender. Lungs clear to auscultation. Heart regular rhythm rate about 100. Abdomen softnondistended normal bowel sounds peritoneal signs. He is a colostomy bag with brown liquid stool in it. Moving all 4 extremities. Nontender no edema. Normal strength. Back nontender. Neurologically is awake alert. Answering questions and following commands. Const Vital Signs: 01/03/25 08:46 01/03/25 08:46 01/03/25 09:38 Temperature 97.9 F Temperature Source Oral Pulse Rate 99 90 Respiratory Rate 18 18 Respiratory Effort Normal Non-Labored Respiratory Pattern Normal Normal Blood Pressure 135/79 H Blood Pressure Mean 97 Pulse Ox 100 Oxygen Delivery Method Room Air 01/03/25 09:46 01/03/25 11:51 Temperature Temperature Source Pulse Rate 117 H 99 Respiratory Rate 19 H 16 Respiratory Effort Respiratory Pattern Blood Pressure 102/70 131/74 H Blood Pressure Mean 80 93 Pulse Ox 100 99 Oxygen Delivery Method Room Air Room Air Positive well nourished and well developed; Negative for obese, cachectic, contractures or unkempt General Appearance ED: well developed and NAD; Negative for unkempt, cachectic, contractures, cyanotic, diaphoretic or pallor Nutritional Appearance: Negative for cachectic or obese HEENT Reports moist mucous membranes Eyes EOMs intact bilaterally Neck no lymphadenopathy, supple and no JVD Chest Wall inspection of chest normal and palpation of chest normal Resp normal respiratory effort and clear to auscultation bilaterally Cardio regular rate, regular rhythm, S1 normal heart sound and S2 normal heart sound GI normal to inspection, nondistended, normoactive bowel sounds, non-tender, non-distended and no masses Palpation: soft; Negative for tender, guarding or rebound tenderness present Back/Spine no CVA tenderness General Back: Negative for CVA tenderness Cervical Spine: Negative for cervical spine tenderness Thoracic Spine / Upper Back: Negative for thoracic spinal tenderness or paraspinal muscle tenderness Lumbar Spine / Lower Back: Negative for lumbar spinal tenderness Extremity normal to inspection General Extremety ED: Negative for edema or tenderness General Extremity: Negative for edema Neuro oriented x3 and CN's II-XII intact bilaterally Sensorium / Orientation: alert Motor Exam: strength 5/5 throughout Psych mental status grossly normal Appearance: Negative for unkempt Skin no rashes or lesions noted and no wounds General Skin Exam: Negative for jaundice or pallor Lesions: No lesion noted Rashes: No rashes noted Trauma: Negative for abrasion Wounds: Negative for wounds noted MDM MDM MDM Narrative Medical decision making narrative: 79-year-old male history of chronic kidney disease with elevated potassium. Treated with Kayexalate in the TCU. BMP will be obtained. EKG. And we will give the patient aerosol, saline, insulin and bicarb. Repeat exam patient is doing well at 12:49 PM. I spoke to my hospitalist. We are going to transfer him back to [facility] Where he recently had a long lengthy complicated hospitalization including bowel resection due to mesenteric ischemia, intubation and dialysis. But they are unable to accept him at this time due to not having bed availability. He will be admitted here to the PCU. History & Record Review Discussion w/independent historian: Patient Additional record(s) reviewed:: Prior inpatient record, Prior outpatient record,Prior ED visit and Prior labs Lab Data Attestation: I reviewed the patient's lab results. Lab results narrative: Chemistry shows sodium 130. Potassium is 7.4. Gap 13. BUN of 58 creatinine 2.41 he has chronic kidney disease is consistent with his prior BUN and creatinines. Platelets 273. CBC shows a white count of 7. H&H of 10 and 30. Platelets 509. Consistent with a chronic anemia Labs: Laboratory Results - last 24 hr 01/03/25 01/03/25 09:13 11:53 Sodium 130 L Potassium 7.4 H* Chloride 106 Carbon Dioxide 11.5 L Anion Gap 13 BUN 58 H Creatinine 2.41 H Estim Creat Clear Calc 22.80 L Est GFR (MDRD) Non-Af 27 L BUN/Creatinine Ratio 23.9 H Glucose 273 H Calcium 9.5 POC Glucose 230 H Rhythm Strip Rhythm Strip: Sinus Rhythm Rate: 98 Ectopy: None EKG Initial EKG: Attestation: I personally reviewed and interpreted this EKG as follows: Interpretation: Sinus Rhythm and LBBB Comments: Normal sinus rhythm rate of 98. He does have a left bundle branch block. Currently I am unsure if that is new or old. No acute signs of MS or ischemia. Discharge Plan Triage Chief Complaint: Abn Labs ED Provider: Wayne Madsen Dx/Rx/DC Orders Clinical Impression: Acute hyperkalemia, Chronic kidney disease, History of hypertension, History ofdiabetes mellitus, History of bowel resection Prescriptions: No Action zinc acetate 25 mg (zinc) capsule 50 mg PO DAILY cholecalciferol (vitamin D3) 25 mcg (1,000 unit) capsule 25 mcg PO DAILY ascorbic acid (vitamin C) 500 mg capsule 500 mg PO DAILY ferrous sulfate [Feosol] 325 mg (65 mg iron) tablet 325 mg PO QDAY aspirin 81 MG tablet 81 mg PO DAILY@0800 glimepiride 2 MG tablet 2 mg PO BREAKFAST tamsulosin 0.4 MG capsule 0.4 mg PO QHS metformin 1,000 MG tablet 1,000 mg PO BID hydrochlorothiazide 25 MG tablet 25 mg PO DAILY gabapentin 300 mg capsule 300 mg PO QHS amlodipine 10 mg tablet 10 mg PO DAILY acetaminophen 500 mg Tablet 500 mg PO Q6H Qty: 30 0RF methocarbamol 500 mg Tablet 750 mg PO TID PRN (Reason: pain/spasms) Qty: 60 0RF oxycodone 5 mg Tablet 2.5 - 5 mg PO Q6H PRN (Reason: pain) 7 Days Qty: 28 0RF sennosides-docusate sodium [Stimulant Laxative Plus] 8.6-50 mg Tablet 2 tab PO BID PRN (Reason: constipation) Qty: 30 0RF Primary Care Provider: Trinity Coronado Referrals: Trinity Coronado, [employer] [Primary Care Provider] - Print Language: Chilean Disposition Disposition: Acute Care Hospital [facility] What to do if you have Problems For any increased pain, shortness of breath, bleeding, nausea or vomiting, chestpain, or any unexpected problems, contact your Primary Care Provider. Call [facility] ([phone]) or report to the closest Emergency Room. Call 911 if necessary. 01/03/25 1250 <Electronically signed by Wayne Madsen MD> Cosigner Signature (if applicable): CC: DEANNA Coronado ~ Signed [facility] Work Phone: [phone] Radiology Diagnostic study note [facility] Imaging Services [address] [place], [place] [address] Abdomen/Pelvis without Cont MR#: [id number] Acct: [id number] Name: JOAO BARNETT Rep #: [id number] : 1945 M 79 From: Aaron Amado MD PCP: DEANNA Franklin Status: ADM IN Study:Abdomen/Pelvis without Cont Date of Exa m: 01/03/25 Exam# [id number] Ordering Dr: Jeremy Tirado DO PROCEDURE: ABDOMEN/PELVIS WITHOUT CONT 01/03/2025 REASON FOR EXAM: RECENT BOWEL RESECTION W/ CONTINUED ABD PAIN Status post right hemicolectomy and ileostomy. TECHNIQUE: Abdomen and pelvis CT without intravenous contrast. Noncontrast technique limits evaluation of the abdominal and pelvic viscera. Coronal and Sagittal reconstruction series were provided. One or more dose reduction techniques were used (e.g., Automated exposure control, adjustment of the mA and/or kV according to patient size, use of iterative reconstruction technique). PATIENT PREPARATION: Per protocol ORAL CONTRAST TYPE: None. AMOUNT: mL COMPARISON: Prior study dated December 01, 2024. FINDINGS: Lung bases: Mild dependent atelectasis. Coronary artery calcification. Liver: Normal size. No obvious mass. Gallbladder: Unremarkable Spleen: Normal size. Pancreas: Normal size. No surrounding inflammation. Adrenals: Unremarkable Kidneys: Tiny nonobstructive calculus in the upper pole calyx of the right kidney. Bladder: A suprapubic catheter is seen within the urinary bladder. There is diffuse bladder wall thickening. Bowel: The patient is status post right hemicolectomy with ileostomy. Postsurgical changes are seenin the right lower quadrant at the surgical site with increased markings in the surrounding peritoneum. There is a 3.2 cm 2.7 cm 2.5 cm fluid collection with a small amount of air. This may represent focal abscess although without oral contrast, this limits the evaluation. Repeat examination with oral contrast recommended. Lymph nodes: No suspicious lymph node enlargement. Vasculature: Mild diffuse atherosclerotic calcifications are noted. Peritoneum / Retroperitoneum: Surgical clips are seen in both inguinal region suggestive of prior inguinal hernia repair. Bones: Degenerative changes of the spine. CT/Abdomen/Pelvis without Cont IMPRESSION: Status post right hemicolectomy with ileostomy as described. Postsurgical changes are seen at the operative site with possible small abscess. A repeat examination with oral contrast is recommended. A suprapubic catheter is seen within the urinary bladder. There is diffuse bladder wall thickening. OVERALL FINAL ASSESSMENT: . LI-RADS is not meant to be used in patients <18 years or patients with cirrhosisdue to congenital hepatic fibrosis or due to vascular disorders, because these patients have a lower chance of developing HCC. Reading Location: [place] [address] CC: DEANNA Coronado; Dr. Jeremy Faith, DO ~ Cardiovascular Invasive Specialist: Signed [facility]06-11-2025 Radiology Diagnostic study note [facility] Imaging Services [address] [place] [address] Chest 1 View (Portable) MR#: [id number] Acct: [id number] Name: JOAO BARNETT Rep #: [id number] 2 : 1945 M 79 From: Young Qiu MD PCP: Trinity Dajuan, [employer]C Status: REG ER Study:Chest 1 View (Portable) Date of Exam: 01/03/25 Exam# [id number] Ordering Dr: Jeremy Tirado DO PROCEDURE: CHEST 1 VIEW (PORTABLE) 01/03/2025 REASON FOR EXAM: RECENT NEW HFREF, MILD SOB TECHNIQUE: Frontal view of the chest. COMPARISON: AP chest of 12/27/2024. RAD/Chest 1 View (Portable) IMPRESSION: Old left rib fractures are again seen. No acute osseous process is evident. Lungs appear clear of acute disease. No pleural effusion or pneumothorax is noted. The cardiomediastinal silhouette appears within the normal range. No evidence of acute cardiopulmonary disease. Reading Location: [address] CC: [employer] Trinity Coronado; Dr. Jeremy Faith, ~ Cardiovascular Invasive Specialist: Signed [facility]06-11-2025 [facility]06-11-2025 Discharge summary [facility] Medical Records Department [address] [place] [address] Emergency Department Summary 01/03/25 MR#: [id number] Acct: [id number] Name: JOAO BARNETT Rep #:[id number] 2 : 1945 79 From: Wayne Madsen MD PCP: Trinity Coronado [employer]ER-C Status:REG ER Location: ED HPI History of Present Illness Chief Complaint: Abn Labs Detail of Chief Complaint: Elevated potassium. Informant: patient Onset/Context/Timing Onset: Today Narrative Narrative: 79-year-old male recent history of mesenteric ischemia with abdominal surgery bowel resection and colostomy. He was sent from this hospital to [place]. Now heis recovering in the transitional care unit. Today had elevated potassium he was treated with Kayexalate they repeated the potassium level is actually higherat 7.4 sitting down the emergency department. He has known chronic kidney disease, diabetes and hypertension. Prior similar symptoms: No Recent Illness/Hospitalization: Yes PFSH PFS Medical History CKD (chronic kidney disease), stage IV Wears glasses Wears dentures BPH (benign prostatic hyperplasia) Arthritis Prostate disease Low iron History of diverticulitis Heartburn Former smoker Leg cramps History of echocardiogram Hypertrophic scar Carotid stenosis, left Sebaceous cyst Amaurosis fugax of right eye Sciatica Hyperlipidemia Osteoarthritis Hemorrhoid GERD (gastroesophageal reflux disease) HTN (hypertension) Diabetes Carotid stenosis Home Medications ?Medication ?Instructions ?Recorded ?Last Taken ?Type aspirin 81 mg tablet,delayed 81 mg PO DAILY@0800 heart health 04/16/17 11/26/24 09:00 History release glimepiride 2 mg tablet 2 mg PO BREAKFAST dm 7 11/26/24 09:00 History hydrochlorothiazide 25 mg tablet 25 mg PO DAILY bp 11/26/24 09:00 History metformin 1,000 mg tablet 1,000 mg PO BID dm 04/16/17 11/26/24 19:30 History tamsulosin 0.4 mg capsule 0.4 mg PO QHS bph 04/16/17 0 11/26/24 22:30 History cholecalciferol (vitamin D3) 25 25 mcg PO DAILY SUPPLE MENT 04/05/23 11/26/24 09:00 History mcg (1,000 unit) capsule zinc acetate 25 mg (zinc) capsule 50 mg PO DAILY SUPPL EMENT 04/05/23 11/26/24 09:00 History ascorbic acid (vitamin C) 500 mg 500 mg PO DAILY SUPPL EMENT 09/15/24 11/26/24 09:00 History capsule ferrous sulfate 325 mg (65 mg 325 mg PO QDAY SUPPLEMEN T 09/15/24 11/26/24 09:00 History iron) tablet (Feosol) gabapentin 300 mg capsule 300 mg PO QHS PAIN 10/31/24 11/25/24 22:30 History amlodipine 10 mg tablet 10 mg PO DAILY htn 11/27/24 11/26/24 09:00 History acetaminophen 500 mg tablet 500 mg PO Q6H #30 tabs 02/16 Unknown Rx methocarbamol 500 mg tablet 750 mg (1.5 x 500 mg) PO T ID PRN 11/29/24 Unknown Rx pain/spasms #60 tabs oxycodone 5 mg tablet 2.5 - 5 mg (0.5 - 1 x 5 mg) PO Q6H 11/29/24 Unknown Rx PRN pain 7 days #28 tabs sennosides 8.6 mg-docusate sodium 2 tab PO BID PRN con stipation #30 11/29/24 Unknown Rx 50 mg tablet (Stimulant Laxative tabs Plus) Allergy/AdvReac Type Severity Reaction Status Date / Time atorvastatin (From Lipitor) Allergy INTOLERANCE Verified 12/26/24 20:42 ezetimibe (From Zetia) Allergy MYALGIA Verified 12/26/24 20:42 pravastatin Allergy MYALGIAS Verified 12/26/24 20:42 simvastatin (From Zocor) Allergy INTOLERANCE Verified 12/26/24 20:42 sitagliptin (From Januvia) Allergy INTOLERANCE Verified 12/26/24 20:42 tetanus and diphtheria Allergy Rash Verified 12/01/24 22:00 toxoids Xksauwr-FNU-PuS Reductase AdvReac Other Verified 12/01/24 22:00 Inhibitor (Xgctcwr-Hjk-Nec Reductase Inhibitor) Family History Father Diabetes Heart disease Myocardial infarction Mother CAD (coronary artery disease) Arthritis Surgical History History of ileostomy History of right hemicolectomy History of partial colectomy History of right-sided carotid endarterectomy History of right-sided carotid endarterectomy (~11/2017) History of umbilical hernia S/P ventral herniorrhaphy S/P inguinal hernia repair S/P colonoscopy Social History household members: spouse Smoking Status: Former smoker alcohol intake: never substance use type: does not use ROS ROS ED ROS Narrative Mild nausea but no vomiting. Constitutional Constitutional ED: Denies chills or fever(s) Eyes Eyes: Denies blurry vision ENT ENT ED: Denies ear pain Cardiovascular Cardiovascular: Denies chest pain Respiratory/Chest Respiratory/Chest: Denies cough or dyspnea Gastrointestinal Gastrointestinal: Reports nausea; Denies abdominal pain or vomiting Genitourinary Genitourinary ED: Denies dysuria or hematuria Musculoskeletal Musculoskeletal: Denies arthralgias Integumentary Denies abscess Neurologic Neurologic: Denies headache(s) Psychiatric Psychiatric: Denies anxiety Endocrine Endocrinology: Denies cold intolerance Hematologic/Lymphatic Hematologic/Lymphatic: Reports none Allergic/Immunologic Allergic/Immunologic ED: Denies mouth swelling, tongue swelling or urticaria EXAM Physical Exam Narrative Exam Narrative: 79-year-old male sitting upright in bed. Vital signs stable afebrile. H EENT exam pupils round reactive light. Moist mucous membranes. Neck nontender. Lungs clear to auscultation. Heart regular rhythm rate about 100. Abdomen softnondistended normal bowel sounds peritoneal signs. He is a colostomy bag with brown liquid stool in it. Moving all 4 extremities. Nontender no edema. Normal strength. Back nontender. Neurologically is awake alert. Answering questions and following commands. Const Vital Signs: 01/03/25 08:46 01/03/25 08:46 01/03/25 09:38 Temperature 97.9 F Temperature Source Oral Pulse Rate 99 90 Respiratory Rate 18 18 Respiratory Effort Normal Non-Labored Respiratory Pattern Normal Normal Blood Pressure 135/79 H Blood Pressure Mean 97 Pulse Ox 100 Oxygen Delivery Method Room Air 01/03/25 09:46 01/03/25 11:51 Temperature Temperature Source Pulse Rate 117 H 99 Respiratory Rate 19 H 16 Respiratory Effort Respiratory Pattern Blood Pressure 102/70 131/74 H Blood Pressure Mean 80 93 Pulse Ox 100 99 Oxygen Delivery Method Room Air Room Air Positive well nourished and well developed; Negative for obese, cachectic, contractures or unkempt General Appearance ED: well developed and NAD; Negative for unkempt, cachectic, contractures, cyanotic, diaphoretic or pallor Nutritional Appearance: Negative for cachectic or obese HEENT Reports moist mucous membranes Eyes EOMs intact bilaterally Neck no lymphadenopathy, supple and no JVD Chest Wall inspection of chest normal and palpation of chest normal Resp normal respiratory effort and clear to auscultation bilaterally Cardio regular rate, regular rhythm, S1 normal heart sound and S2 normal heart sound GI normal to inspection, nondistended, normoactive bowel sounds, non-tender, non- distended and no masses Palpation: soft; Negative for tender, guarding or rebound tenderness present Back/Spine no CVA tenderness General Back: Negative for CVA tenderness Cervical Spine: Negative for cervical spine tenderness Thoracic Spine / Upper Back: Negative for thoracic spinal tenderness or paraspinal muscle tenderness Lumbar Spine / Lower Back: Negative for lumbar spinal tenderness Extremity normal to inspection General Extremety ED: Negative for edema or tenderness General Extremity: Negative for edema Neuro oriented x3 and CN's II-XII intact bilaterally Sensorium / Orientation: alert Motor Exam: strength 5/5 throughout Psych mental status grossly normal Appearance: Negative for unkempt Skin no rashes or lesions noted and no wounds General Skin Exam: Negative for jaundice or pallor Lesions: No lesion noted Rashes: No rashes noted Trauma: Negative for abrasion Wounds: Negative for wounds noted MDM MDM MDM Narrative Medical decision making narrative: 79-year-old male history of chronic kidney disease with elevated potassium. Treated with Kayexalatein the TCU. BMP will be obtained. EKG. And we will give the patient aerosol, saline, insulin and bicarb. Repeat exam patient is doing well at 12:49 PM. I spoke to my hospitalist. We are going to transfer him back to [facility] Where he recently had a long lengthy complicated hospitalization includingbowel resection due to mesenteric ischemia, intubation and dialysis. But they are unable to accept him at this time due to not having bed availability. He will be admitted here to the PCU. History & Record Review Discussion w/independent historian: Patient Additional record(s) reviewed:: Prior inpatient record, Prior outpatient record,Prior ED visit and Prior labs Lab Data Attestation: I reviewed the patient's lab results. Lab results narrative: Chemistry shows sodium 130. Potassium is 7.4. Gap 13. BUN of 58 creatinine 2.41 he has chronic kidney disease is consistent with his prior BUN and creatinines. Platelets 273. CBC shows a white count of 7. H&H of 10 and 30. Platelets 509. Consistent with a chronic anemia Labs: Laboratory Results - last 24 hr 01/03/25 01/03/25 09:13 11:53 Sodium 130 L Potassium 7.4 H* Chloride 106 Carbon Dioxide 11.5 L Anion Gap 13 BUN 58 H Creatinine 2.41 H Estim Creat Clear Calc 22.80 L Est GFR (MDRD) Non-Af 27 L BUN/Creatinine Ratio 23.9 H Glucose 273 H Calcium 9.5 POC Glucose 230 H Rhythm Strip Rhythm Strip: Sinus Rhythm Rate: 98 Ectopy: None EKG Initial EKG: Attestation: I personally reviewed and interpreted this EKG as follows: Interpretation: Sinus Rhythm and LBBB Comments: Normal sinus rhythm rate of 98. He does have a left bundle branch block. Currently I am unsure if that is new or old. No acute signs of MS or ischemia. Discharge Plan Triage Chief Complaint: Abn Labs ED Provider: Wayne Madsen Dx/Rx/DC Orders Clinical Impression: Acute hyperkalemia, Chronic kidney disease, History of hypertension, History ofdiabetes mellitus, History of bowel resection Prescriptions: No Action zinc acetate 25 mg (zinc) capsule 50 mg PO DAILY cholecalciferol (vitamin D3) 25 mcg (1,000 unit) capsule 25 mcg PO DAILY ascorbic acid (vitamin C) 500 mg capsule 500 mg PO DAILY ferrous sulfate [Feosol] 325 mg (65 mg iron) tablet 325 mg PO QDAY aspirin 81 MG tablet 81 mg PO DAILY@0800 glimepiride 2 MG tablet 2 mg PO BREAKFAST tamsulosin 0.4 MG capsule 0.4 mg PO QHS metformin 1,000 MG tablet 1,000 mg PO BID hydrochlorothiazide 25 MG tablet 25 mg PO DAILY gabapentin 300 mg capsule 300 mg PO QHS amlodipine 10 mg tablet 10 mg PO DAILY acetaminophen 500 mg Tablet 500 mg PO Q6H Qty: 30 0RF methocarbamol 500 mg Tablet 750 mg PO TID PRN (Reason: pain/spasms) Qty: 60 0RF oxycodone 5 mg Tablet 2.5 - 5 mg PO Q6H PRN (Reason: pain) 7 Days Qty: 28 0RF sennosides-docusate sodium [Stimulant Laxative Plus] 8.6-50 mg Tablet 2 tab PO BID PRN (Reason: constipation) Qty: 30 0RF Primary Care Provider: Trinity Coronado Referrals: Trinity Coronado NP-C [Primary Care Provider] - Print Language: Chilean Disposition Disposition: Acute Care Hospital [facility] What to do if you have Problems For any increased pain, shortness of breath, bleeding, nausea or vomiting, chestpain, or any unexpected problems, contact your Primary Care Provider. Call [facility] ([phone]) or report tothe closest Emergency Room. Call 911 if necessary. 01/03/25 1250 Cosigner Signature (if applicable): CC: DEANNA Coronado ~ Signed [facility]06-11-2025 History and physical note Author Arnulfo Londono [facility] Note Date/Time January 03, 2025 7:34 am [facility] Medical Records Department [address] [place] [address] History & Physical Exam 12/26/242021 MR#: [id number] Acct: [id number] Name: JOAO BARNETT Rep #:[id number] : 1945 79 From: Arnulfo Londono MD PCP: DEANNA Frankiln Status:ADM IN Location: [id number] General Date of Admission: 12/26/24 Date of Service: 12/27/24 Chief Complaint: Here for rehabilitation. HPI Narrative JOAO BARNETT, is a 79 Male who presents with followin11/27/2024 Dr. Colon performed L2 - L5 posterior spinal instrumented fusion. 12/01/2024 [facility] ED with abdominal pain. Abdominal pain, distention, nausea, vomiting, feels full of air. CT abdomen/pelvis showed mild acute diverticulitis, microperforation, dilatedcolonic loops, pneumatosis. Surgical history significant for ventral hernia repair with mesh x 4. Transfer to [facility]. 12/02/2024 Admit to [facility] SICU. Zosyn iv for microperforation, close monitoring of abdominal exam. Later that evening, patient developed worsening abdominal pain, tachycardia. He was emergently taken to OR for exploratory laparotomy, right hemicolectomy, partial colectomy of proximal transverse colon, with placement ofwound VAC by Dr. Rhodes with findings of severe venous congestion of the entire ascending colon and proximal transverse, several large colon serosal splits. 12/03/2024 Cardiology consulted for elevated BNP, uptrending troponin, EKG with nstemi. Echo showed EF 36%, hypokinesia, aortic stenosis. 12/04/2024 Return to OR for second look exploratory laparotomy with creation of mucous fistula end ileostomy with Dr. Lieberman. 12/05/2024 Emesis with suspected aspiration, NG placed. 12/06/2024 Intubated for worsening tachypnea, respiratory distress. Cardiology diagnosed Type 2 nstemi, HFrEF (EF 30% with severe aortic stenosis, wall motion abnormality). 12/08/2024 Extubated, began having bowel function. 12/09/2024 Transferred to regular nursing floor. 12/10/2024 AQUACULTURIST recommended full solids, thin liquids. Elevated WBC, CT abdomen/pelvis showed moderate volume of free fluid in LUQ. 12/12/2024 IR placed drain for LUQ free fluid. 12/13/2024 Respiratory distress 2/2 fluid overload, transfer back to ICU. Nephrology consulted for PRISCILA, managed aggressive diuresis. Speech evaluation recommended NPO, tubefeeding started. 12/17/2024 Transferred to regular nursing floor. 12/19/2024 ENT with flexible laryngoscopy showed intact vocal cord motion and oral/pharygneal dysphagia, hoarseness 2/2 pulmonary support. 12/20/2024 Lethargic, CT head negative, Nephrology recommended dialysis 2/2 elevated BUN. 12/21/2024 Temporary non-tunneled dialysis catheter placed in right internal jugular, dialysis 1 of 3 sessions started. 12/24/2024 Patient failed voiding trial, Peña catheter reinserted. Urology recommended Tamsulosin, Finasteride, repeat voiding trial in 1 week. 12/25/2024 IR removed LUQ drain. 12/26/2024 Kidney function stable, Nephrology did not think he needed any more dialysis, temporary dialysis catheter removed. Tolerating diet, ostomy function. PT/OT for TCU. 12/26/2024 Admit to TCU with debility, here for rehabilitation, strengthening, prior to discharge home with . [facility] clinic for severe aortic stenosis. Lisinopril, HCTZ, amlodipine stopped, Coreg, imdur started. Glimepiride, Metformin stopped, Glargine 14 units daily with SSI started. [facility] Medical History (Updated 12/26/24 @ 20:[address] Arnulfo Londono MD) CKD (chronic kidney disease), stage IV Wears glasses Wears dentures BPH (benign prostatic hyperplasia) Arthritis Prostate disease Low iron History of diverticulitis Heartburn Former smoker Leg cramps History of echocardiogram Hypertrophic scar Carotid stenosis, left Sebaceous cyst Amaurosis fugax of right eye Sciatica Hyperlipidemia Osteoarthritis Hemorrhoid GERD (gastroesophageal reflux disease) HTN (hypertension) Diabetes Carotid stenosis Home Medications ?Medication ?Instructions ?Recorded ?Last Taken ?Type aspirin 81 mg tablet,delayed 81 mg PO DAILY@0800 heart [facility] 04/16/17 11/26/24 09:00 History release glimepiride 2 mg tablet 2 mg PO BREAKFAST dm 7 11/26/24 09:00 History hydrochlorothiazide 25 mg tablet 25 mg PO DAILY bp 11/26/24 09:00 History metformin 1,000 mg tablet 1,000 mg PO BID dm 04/16/17 11/26/24 19:30 History tamsulosin 0.4 mg capsule 0.4 mg PO QHS bph 04/16/17 0 11/26/24 22:30 History cholecalciferol (vitamin D3) 25 25 mcg PO DAILY SUPPLE MENT 04/05/23 11/26/24 09:00 History mcg (1,000 unit) capsule zinc acetate 25 mg (zinc) capsule 50 mg PO DAILY SUPPL EMENT 04/05/23 11/26/24 09:00 History ascorbic acid (vitamin C) 500 mg 500 mg PO DAILY SUPPL EMENT 09/15/24 11/26/24 09:00 History capsule ferrous sulfate 325 mg (65 mg 325 mg PO QDAY SUPPLEMEN T 09/15/24 11/26/24 09:00 History iron) tablet (Feosol) gabapentin 300 mg capsule 300 mg PO QHS PAIN 10/31/24 11/25/24 22:30 History amlodipine 10 mg tablet 10 mg PO DAILY htn 11/27/24 11/26/24 09:00 History acetaminophen 500 mg tablet 500 mg PO Q6H #30 tabs 02/16 Unknown Rx methocarbamol 500 mg tablet 750 mg (1.5 x 500 mg) PO T ID PRN 11/29/24 Unknown Rx pain/spasms #60 tabs oxycodone 5 mg tablet 2.5 - 5 mg (0.5 - 1 x 5 mg) PO Q6H 11/29/24 Unknown Rx PRN pain 7 days #28 tabs sennosides 8.6 mg-docusate sodium 2 tab PO BID PRN con stipation #30 11/29/24 Unknown Rx 50 mg tablet (Stimulant Laxative tabs Plus) Allergy/AdvReac Type Severity Reaction Status Date / Time atorvastatin (From Lipitor) Allergy INTOLERANCE Verified 12/26/24 20:42 ezetimibe (From Zetia) Allergy MYALGIA Verified 12/26/24 20:42 pravastatin Allergy MYALGIAS Verified 12/26/24 20:42 simvastatin (From Zocor) Allergy INTOLERANCE Verified 12/26/24 20:42 sitagliptin (From Januvia) Allergy INTOLERANCE Verified 12/26/24 20:42 tetanus and diphtheria Allergy Rash Verified 12/01/24 22:00 toxoids Zalvkxd-ZHJ-HsW Reductase AdvReac Other Verified 12/01/24 22:00 Inhibitor (Hhtbtnt-Qkb-Frp Reductase Inhibitor) Family History Father Diabetes Heart disease Myocardial infarction Mother CAD (coronary artery disease) Arthritis Surgical History (Updated 12/26/24 @ 20:[address] Arnulfo Londono MD) History of ileostomy History of right hemicolectomy History of partial colectomy History of right-sided carotid endarterectomy History of right-sided carotid endarterectomy (~11/2017) History of umbilical hernia S/P ventral herniorrhaphy S/P inguinal hernia repair S/P colonoscopy Social History (Updated 12/26/24 @ 20:[address] Arnulfo Londono MD) household members: spouse Smoking Status: Former smoker alcohol intake: never substance use type: does not use ROS Constitutional Constitutional: Reports weakness; Denies chills, fever(s) or weight gain ENT HEENT: Denies headache(s), nasal congestion or nasal discharge Cardiovascular Cardiovascular: Denies chest pain or palpitations Respiratory/Chest Respiratory/Chest: Denies cough, excessive phlegm production or shortness of breath with exertion Gastrointestinal Gastrointestinal: Denies abdominal pain, nausea or vomiting Genitourinary Genitourinary: Denies dysuria Musculoskeletal Musculoskeletal: Denies joint pain or joint swelling Integumentary Integumentary: Denies rash or wounds Neurologic Neurologic: Denies focal weakness, numbness or tingling Psychiatric Psychiatric: Denies anxiety, auditory hallucinations, depression, homicidal ideation or suicidal ideation Vital Signs Vital Signs Vital Signs: 12/26/24 19:56 Temperature 98.0 F Temperature Source Oral Pulse Rate 82 Respiratory Rate 16 Blood Pressure 121/67 H Blood Pressure Mean 85 Blood Pressure Source Monitor Blood Pressure Position Semi-Fowlers Blood Pressure Location Left Arm Pulse Ox 99 Oxygen Delivery Method Room Air Physical Exam Const alert General Appearance: cooperative HEENT normocephalic Eyes PERRL and EOMs intact bilaterally Neck supple, no JVD and no carotid bruits Resp normal respiratory effort, normal air movement and clear to auscultation bilaterally Cardio regular rate and regular rhythm GI normal to inspection, nondistended, normoactive bowel sounds, non-tender and non-distended GI Narrative: Ileostomy right midline, bag with yellow brown stool. Bladder / Kidney Exam: catheter in place urethral Extremity normal capillary refill General Extremity: Negative for edema Skin no rashes or lesions noted General Skin Exam: no breakdown Psych affect normal Appearance: appropriate Assessment & Plan Assessment/Plan (1) Debility: (2) Perforation of sigmoid colon due to diverticulitis: (3) Sepsis: (4) Acute respiratory failure with hypoxia: (5) NSTEMI (non-ST elevated myocardial infarction): (6) Acute HFrEF (heart failure with reduced ejection fraction): (7) Severe aortic stenosis: (8) Acute renal failure on dialysis: (9) Dysphagia: (10) Urinary retention: (11) Diabetes: (12) Essential (primary) hypertension: (13) BPH (benign prostatic hyperplasia): (14) Iron deficiency anemia: (15) Diabetic polyneuropathy: (16) Muscle spasm: PLAN: Plan 79 year old male with below past medical history hospitalized for sepsis, perforated sigmoid diverticulitis, underwent right hemicolectomy, partial colectomy (transverse colon), ileostomy, complicated by acute respiratory failure requiring intubation, acute HFrEF, acute kidney failure requiring dialysis, nstemi, severe aortic stenosis, dysphagia, urinary retention, admittedto TCU with debility, here for rehabilitation, strengthening, prior to dischargehome with . * Debility - PT/OT. * Pain - Tylenol 1000mg q6 prn pain (1-10). * Bowel - senna/colace 1 tablet bid. * Adult immunization - Administer pneumonia vaccine, covid vaccine, flu vaccine as appropriate. * DVT prophylaxis - Lovenox 30mg sc daily. * NSTEMI - Coreg 6.25mg bidcm, Isosorbide 10mg tid, Aspirin 81mg daily. * Chronic HFrEF (EF 36%) - Coreg 6.25mg bidcm, Isosorbide 10mg tid. * Aortic stenosis (severe) - TAVR once recovered. * Thrush - Nystatin 500,000 units 4x/day thru 01/02/2025. * BPH/urinary retention - Finasteride 5mg daily, Tamsulosin 0.4mg qhs, indwelling peña catheter, voiding trial in 1 week. * Diabetic polyneuropathy - Gabapentin 300mg qhs. * Diabetes Mellitus II - Glargine 14 units qam, Lispro 4 units tidac. 12/27/24 0748 <Electronically signed by Arnulfo Londono MD> Cosigner Signature (if applicable): CC: DEANNA Coronado; Dr. Arnulfo Londono MD~ Signed ADDENDUM by Dr. Arnulfo Londono MD on 12/27/24 at 1710 Addendum Malnutrition - Consult dietary. 12/27/24 1710<Electronically signed by Arnulfo Londono MD> Cosigner Signature (if applicable): cc: DEANNA Coronado; Dr. Arnulfo Londono MD ~* Signed ADDENDUM by Dr. Arnulfo Londono MD on 01/01/25 at 1739 Addendum The following psychotropic medication is being started or the dose in being increased: Mirtazapine 7.5mg qhs. Psychotropic medication therapy is indicated for a diagnosis of: Depression/Appetite loss/insomnia. In my professional judgement, medication is necessary because the resident?s symptoms cause significant distress to the resident or a danger to the resident or others. Evaluation for underlying causes including medical illness and pain has been considered. The benefits of the medication are felt to outweigh potential harm. Nonpharmacologic/behavior interventions have been attempted but have not been effective or nonpharmacologic interventions are contraindicated for this patient. Potential benefits and risks of treatment and alternatives have been reviewed with resident/family and the resident/family have accepted psychotropic medication treatment. Please see nursing documentation. 01/01/25 173<Electronically signed by Arnulfo Londono MD> Cosigner Signature (if applicable): cc: DEANNA Coronado; Dr. Arnulfo Londono MD ~* Signed ADDENDUM by Dr. Arnulfo Londono MD on 01/03/25 at 0734 Addendum Hyperkalemia - Yesterday, K 6.6, Kayexalate 30gm po x 1 dose, given, K today 7.3, repeat K. I believe Potassiums in the past 2 days have been in error. Will contact clinical laboratory technologist to try to figure out why potassiums are erroneously high. 01/03/25 0734<Electronically signed by Arnulfo Londono MD> Cosigner Signature (if applicable): cc: DEANNA Coronado; Dr. Arnulfo Londono MD ~* Signed [facility] Work Phone: [phone] 758-810806-11-2025 History and physical note [facility] Medical Records Department [address] [place] [address] History & Physical Exam 12/26/242021 MR#: [id number] Acct: [id number] Name: JOAO BARNETT Rep #:[id number] : 1945 79 From: Arnulfo Londono MD PCP: Trinity Coronado [employer]ER-C Status:ADM IN Location: [place] [id number] - General General Date of Admission: 12/26/24 Date of Service: 12/27/24 Chief Complaint: Here for rehabilitation. HPI Narrative JOAO BARNETT, is a 79 Male who presents with followin11/27/2024 Dr. Colon performed L2 - L5 posterior spinal instrumented fusion. 12/01/2024 [facility] ED with abdominal pain. Abdominal pain, distention, nausea, vomiting, feels full of air. CT abdomen/pelvis showed mild acute diverticulitis, microperforation, dilatedcolonic loops, pneumatosis. Surgical history significant for ventral hernia repair with mesh x 4. Transfer to [facility]. 12/02/2024 Admit to [facility] SICU. Zosyn iv for microperforation, close monitoring of abdominal exam. Later that evening, patient developed worsening abdominal pain, tachycardia. He was emergently taken to OR for exploratory laparotomy, right hemicolectomy, partial colectomy ofproximal transverse colon, with placement ofwound VAC by Dr. Rhodes with findings of severe venous congestion of the entire ascending colon and proximal transverse, several large colon serosal splits. 12/03/2024 Cardiology consulted for elevated BNP, uptrending troponin, EKG with nstemi. Echo showed EF 36%, hypokinesia, aortic stenosis. 12/04/2024 Return to OR for second look exploratory laparotomy with creation of mucous fistula end ileostomy with Dr. Lieberman. 12/05/2024 Emesis with suspected aspiration, NG placed. 12/06/2024 Intubated for worsening tachypnea, respiratory distress. Cardiology diagnosed Type 2 nstemi, HFrEF (EF 30% with severe aortic stenosis, wall motion abnormality). 12/08/2024 Extubated, began having bowel function. 12/09/2024 Transferred to regular nursing floor. 12/10/2024 AQUACULTURIST recommended full solids, thin liquids. Elevated WBC, CT abdomen/pelvis showed moderate volume of free fluid in LUQ. 12/12/2024 IR placed drain for LUQ free fluid. 12/13/2024 Respiratory distress 2/2 fluid overload, transfer back to ICU. Nephrology consulted for PRISCILA, managed aggressive diuresis. Speech evaluation recommended NPO, tubefeeding started. 12/17/2024 Transferred to regular nursing floor. 12/19/2024 ENT with flexible laryngoscopy showed intact vocal cord motion and oral/pharygneal dysphagia, hoarseness 2/2 pulmonary support. 12/20/2024 Lethargic, CT head negative, Nephrology recommended dialysis 2/2 elevated BUN. 12/21/2024 Temporary non-tunneled dialysis catheter placed in right internal jugular, dialysis 1 of 3 sessions started. 12/24/2024 Patient failed voiding trial, Peña catheter reinserted. Urology recommended Tamsulosin, Finasteride, repeat voiding trial in 1 week. 12/25/2024 IR removed LUQ drain. 12/26/2024 Kidney function stable, Nephrology did not think he needed any more dialysis, temporary dialysis catheter removed. Tolerating diet, ostomy function. PT/OT for TCU. 12/26/2024 Admit to TCU with debility, here for rehabilitation, strengthening, prior to discharge home with . TAVR clinic for severe aortic stenosis. Lisinopril, HCTZ, amlodipine stopped, Coreg, imdur started. Glimepiride, Metformin stopped, Glargine 14 units daily with SSI started. [facility] Medical History (Updated 12/26/24 @ 20:[address] Arnulfo Londono MD) CKD (chronic kidney disease), stage IV Wears glasses Wears dentures BPH (benign prostatic hyperplasia) Arthritis Prostate disease Low iron History of diverticulitis Heartburn Former smoker Leg cramps History of echocardiogram Hypertrophic scar Carotid stenosis, left Sebaceous cyst Amaurosis fugax of right eye Sciatica Hyperlipidemia Osteoarthritis Hemorrhoid GERD (gastroesophageal reflux disease) HTN (hypertension) Diabetes Carotid stenosis Home Medications ?Medication ?Instructions ?Recorded ?Last Taken ?Type aspirin 81 mg tablet,delayed 81 mg PO DAILY@0800 heart health 04/16/17 11/26/24 09:00 History release glimepiride 2 mg tablet 2 mg PO BREAKFAST dm 7 11/26/24 09:00 History hydrochlorothiazide 25 mg tablet 25 mg PO DAILY bp 11/26/24 09:00 History metformin 1,000 mg tablet 1,000 mg PO BID dm 04/16/17 11/26/24 19:30 History tamsulosin 0.4 mg capsule 0.4 mg PO QHS bph 04/16/17 0 11/26/24 22:30 History cholecalciferol (vitamin D3) 25 25 mcg PO DAILY SUPPLE MENT 04/05/23 11/26/24 09:00 History mcg (1,000 unit) capsule zinc acetate 25 mg (zinc) capsule 50 mg PO DAILY SUPPL EMENT 04/05/23 11/26/24 09:00 History ascorbic acid (vitamin C) 500 mg 500 mg PO DAILY SUPPL EMENT 09/15/24 11/26/24 09:00 History capsule ferrous sulfate 325 mg (65 mg 325 mg PO QDAY SUPPLEMEN T 09/15/24 11/26/24 09:00 History iron) tablet (Feosol) gabapentin 300 mg capsule 300 mg PO QHS PAIN 10/31/24 11/25/24 22:30 History amlodipine 10 mg tablet 10 mg PO DAILY htn 11/27/24 11/26/24 09:00 History acetaminophen 500 mg tablet 500 mg PO Q6H #30 tabs 02/16 Unknown Rx methocarbamol 500 mg tablet 750 mg (1.5 x 500 mg) PO T ID PRN 11/29/24 Unknown Rx pain/spasms #60 tabs oxycodone 5 mg tablet 2.5 - 5 mg (0.5 - 1 x 5 mg) PO Q6H 11/29/24 Unknown Rx PRN pain 7 days #28 tabs sennosides 8.6 mg-docusate sodium 2 tab PO BID PRN con stipation #30 11/29/24 Unknown Rx 50 mg tablet (Stimulant Laxative tabs Plus) Allergy/AdvReac Type Severity Reaction Status Date / Time atorvastatin (From Lipitor) Allergy INTOLERANCE Verified 12/26/24 20:42 ezetimibe (From Zetia) Allergy MYALGIA Verified 12/26/24 20:42 pravastatin Allergy MYALGIAS Verified 12/26/24 20:42 simvastatin (From Zocor) Allergy INTOLERANCE Verified 12/26/24 20:42 sitagliptin (From Januvia) Allergy INTOLERANCE Verified 12/26/24 20:42 tetanus and diphtheria Allergy Rash Verified 12/01/24 22:00 toxoids Rarhena-QJY-ZdU Reductase AdvReac Other Verified 12/01/24 22:00 Inhibitor (Vetlboa-Umu-Eqx Reductase Inhibitor) Family History Father Diabetes Heart disease Myocardial infarction Mother CAD (coronary artery disease) Arthritis Surgical History (Updated 12/26/24 @ 20:[address] Arnulfo Londono MD) History of ileostomy History of right hemicolectomy History of partial colectomy History of right-sided carotid endarterectomy History of right-sided carotid endarterectomy (~11/2017) History of umbilical hernia S/P ventral herniorrhaphy S/P inguinal hernia repair S/P colonoscopy Social History (Updated 12/26/24 @ 20:[address] Arnulfo Londono MD) household members: spouse Smoking Status: Former smoker alcohol intake: never substance use type: does not use ROS Constitutional Constitutional: Reports weakness; Denies chills, fever(s) or weight gain ENT HEENT: Denies headache(s), nasal congestion or nasal discharge Cardiovascular Cardiovascular: Denies chest pain or palpitations Respiratory/Chest Respiratory/Chest: Denies cough, excessive phlegm production or shortness of breath with exertion Gastrointestinal Gastrointestinal: Denies abdominal pain, nausea or vomiting Genitourinary Genitourinary: Denies dysuria Musculoskeletal Musculoskeletal: Denies joint pain or joint swelling Integumentary Integumentary: Denies rash or wounds Neurologic Neurologic: Denies focal weakness, numbness or tingling Psychiatric Psychiatric: Denies anxiety, auditory hallucinations, depression, homicidal ideation or suicidal ideation Vital Signs Vital Signs Vital Signs: 12/26/24 19:56 Temperature 98.0 F Temperature Source Oral Pulse Rate 82 Respiratory Rate 16 Blood Pressure 121/67 H Blood Pressure Mean 85 Blood Pressure Source Monitor Blood Pressure Position Semi-Fowlers Blood Pressure Location Left Arm Pulse Ox 99 Oxygen Delivery Method Room Air Physical Exam Const alert General Appearance: cooperative HEENT normocephalic Eyes PERRL and EOMs intact bilaterally Neck supple, no JVD and no carotid bruits Resp normal respiratory effort, normal air movement and clear to auscultation bilaterally Cardio regular rate and regular rhythm GI normal to inspection, nondistended, normoactive bowel sounds, non-tender and non-distended GI Narrative: Ileostomy right midline, bag with yellow brown stool. Bladder / Kidney Exam: catheter in place urethral Extremity normal capillary refill General Extremity: Negative for edema Skin no rashes or lesions noted General Skin Exam: no breakdown Psych affect normal Appearance: appropriate Assessment & Plan Assessment/Plan (1) Debility: (2) Perforation of sigmoid colon due to diverticulitis: (3) Sepsis: (4) Acute respiratory failure with hypoxia: (5) NSTEMI (non-ST elevated myocardial infarction): (6) Acute HFrEF (heart failure with reduced ejection fraction): (7) Severe aortic stenosis: (8) Acute renal failure on dialysis: (9) Dysphagia: (10) Urinary retention: (11) Diabetes: (12) Essential (primary) hypertension: (13) BPH (benign prostatic hyperplasia): (14) Iron deficiency anemia: (15) Diabetic polyneuropathy: (16) Muscle spasm: PLAN: Plan 79 year old male with below past medical history hospitalized for sepsis, perforated sigmoid diverticulitis, underwent right hemicolectomy, partial colectomy (transverse colon), ileostomy, complicated by acute respiratory failure requiring intubation, acute HFrEF, acute kidney failure requiring dial ysis, nstemi, severe aortic stenosis, dysphagia, urinary retention, admittedto TCU with debility, here for rehabilitation, strengthening, prior to dischargehome with . * Debility - PT/OT. * Pain - Tylenol 1000mg q6 prn pain (1-10). * Bowel - senna/colace 1 tablet bid. * Adult immunization - Administer pneumonia vaccine, covid vaccine, flu vaccine as appropriate. * DVT prophylaxis - Lovenox 30mg sc daily. * NSTEMI - Coreg 6.25mg bidcm, Isosorbide 10mg tid, Aspirin 81mg daily. * Chronic HFrEF (EF 36%) - Coreg 6.25mg bidcm, Isosorbide 10mg tid. * Aortic stenosis (severe) - TAVR once recovered. * Thrush - Nystatin 500,000 units 4x/day thru 01/02/2025. * BPH/urinary retention - Finasteride 5mg daily, Tamsulosin 0.4mg qhs, indwelling peña catheter, voiding trial in 1 week. * Diabetic polyneuropathy - Gabapentin 300mg qhs. * Diabetes Mellitus II - Glargine 14 units qam, Lispro 4 units tidac. 12/27/24 0748 Cosigner Signature (if applicable): CC: DEANNA Coronado; Dr. Arnulfo Londono MD~ Signed ADDENDUM by Dr. Arnulfo Londono MD on 12/27/24 at 1710 Addendum Malnutrition - Consult dietary. 12/27/24 1710 Cosigner Signature (if applicable): cc: DEANNA Coronado; Dr. Arnulfo Londono MD ~* Signed ADDENDUM by Dr. Arnulfo Londono MD on 01/01/25 at 1739 Addendum The following psychotropic medication is being started or the dose in being increased: Mirtazapine 7.5mg qhs. Psychotropic medication therapy is indicated for a diagnosis of: Depression/Appetite loss/insomnia. In my professional judgement, medication is necessary because the resident?s symptoms cause significant distress to the resident or a danger to the resident or others. Evaluation for underlying causes including medical illness and pain has been considered. The benefits of the medication are felt tooutweigh potential harm. Nonpharmacologic/behavior interventions have been attempted but have not been effective or nonpharmacologic interventions are contraindicated for this patient. Potential benefits and risks of treatment and alternatives have been reviewed with resident/family and the resident/family have accepted psychotropic medication treatment. Please see nursing documentation. 01/01/25 1739 Cosigner Signature (if applicable): cc: DEANNA Coronado; Dr. Arnulfo Londono MD ~* Signed ADDENDUM by Dr. Arnulfo Londono MD on 01/03/25 at 0734 Addendum Hyperkalemia - Yesterday, K 6.6, Kayexalate 30gm po x 1 dose, given, K today 7.3, repeat K. I believe Potassiums in the past 2 days have been in error. Will contact clinical laboratory technologist to try to figure out why potassiums are erroneously high. 01/03/25 0734 Cosigner Signature (if applicable): cc: 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 Trinity Coronado; Dr. Arnulfo Londono MD ~* Signed [facility]06-04-2025 Progress note Author Lucy Kowalski [facility] Note Date/Time December 27, 2024 5:03p m [facility] Medical Records Department [address] [place] [address] Progress Note - Pharmacy 12/27/24 1622 MR#: [id number] Acct: [id number] Name: JOAO BARNETT Rep #:[id number] : 1945 79 From: Lucy Kowalski PCP: DEANNA Franklin Status:ADM IN Location: TCU [facility]- Documented by User: Lucy Kowalski 12/27/24 16:34 TCU RX Drug Regimen Review Subjective/Objective Subjective/Objective Subjective: TCU Admission. 79 YOM presented to ER with abdominal pain. Hospitalized for sepsis, perforated sigmoid diverticulitis, underwent right hemicolectomy, partial colectomy (transverse colon), ileostomy, complicated by acute respiratory failure requiring intubation, acute HFrEF, acute kidney failure requiring dialysis, nstemi, severe aortic stenosis, dysphagia, urinary retention. Admitted to TCU with debility for strengthening and rehabilitation. Objective: Allergies atorvastatin (From Lipitor) Allergy (Verified 12/26/24 20:42) INTOLERANCE ezetimibe (From Zetia) Allergy (Verified 12/26/24 20:42) MYALGIA INTOLERANCE pravastatin Allergy (Verified 12/26/24 20:42) MYALGIAS INTOLERANCE simvastatin (From Zocor) Allergy (Verified 12/26/24 20:42) INTOLERANCE sitagliptin (From Januvia) Allergy (Verified 12/26/24 20:42) INTOLERANCE tetanus and diphtheria toxoids Allergy (Verified 12/01/24 22:00) Rash Cgzxpir-JAI-RtK Reductase Inhibitor (Pgaahih-Axd-Nbc Reductase Inhibitor) Adverse Reaction (Verified 12/01/24 22:00) Other Current Medications Generic Name Dose Route Start Last Admin Trade Name Freq PRN Reason Stop Dose Admin Acetaminophen 1,000 mg 12/26/24 20:56 12/27/24 06:09 Acetaminophen 500 Mg Tablet PO 1,000 mg Q6H PRN PRN Administration Pain Score 1-10 Aspirin 81 mg 12/27/24 08:00 12/27/24 08:43 Aspirin 81 Mg Tab.Chew PO 81 mg BREAKFAST [facility] Administration Carvedilol 6.25 mg 12/27/24 08:00 12/27/24 08:42 Carvedilol 6.25 Mg Tablet PO 6.25 mg BIDCM [facility] Administration Protocol Enoxaparin Sodium 30 mg 12/27/24 06:00 12/27/24 06:10 Enoxaparin 30 Mg/0.3 Ml Syringe SC 30 mg DAILY@0600 LATANYA Administration Finasteride 5 mg 12/27/24 10:00 12/27/24 08:43 Finasteride 5 Mg Tablet PO 5 mg DAILY [facility] Administration Gabapentin 300 mg 12/26/24 22:00 12/26/24 23:02 Gabapentin 300 Mg Capsule PO 300 mg QHS [facility] Administration Insulin Glargine 14 unit 12/27/24 10:00 12/27/24 08:43 Insulin Glargine-Yfgn 100 Unit/Ml Pen SC 14 unit QAM [facility] Administration Insulin Human Lispro 4 unit 12/27/24 06:45 12/27/24 12:04 Insulin Lispro 100 Unit/Ml Insuln.Pen SC 4 u TIDAC [facility] Administration Isosorbide Dinitrate 10 mg 12/26/24 22:00 12/27/24 13:49 Isosorbide Dn 10 Mg Tablet PO 10 mg TID [facility] Administration Protocol Nystatin 500,000 unit 12/26/24 22:00 12/27/24 13:49 Nystatin 500,000 Unit/5 Ml Udc PO 01/02/25 22:01 500,000 unit 4X/DAY LATANYA Administration Senna/Docusate Sodium 1 tablet 12/26/24 22:00 12/27/24 08:43 Senna/Docusate Sodium 1 Tablet PO 1 tablet BID [facility] Administration Tamsulosin HCl 0.4 mg 12/26/24 22:00 12/26/24 23:01 Tamsulosin Hcl 0.4 Mg Capsule PO 0.4 mg QHS [facility] Administration Tuberculin PPD 0.1 ml 01/03/25 10:00 Tuberculin,Purif.Prot.Deriv. 50 Tu/Ml Vial ID 01/03/25 10:01 X1 ONE Problem List (Updated 12/26/24 @ 20:[address] Arnulfo Londono MD) Muscle spasm (Acute) Diabetic polyneuropathy (Acute) Iron deficiency anemia (Acute) BPH (benign prostatic hyperplasia) (Acute) Essential (primary) hypertension (Acute) Diabetes (Acute) Urinary retention (Acute) Dysphagia (Acute) Acute renal failure on dialysis (Acute) Severe aortic stenosis (Acute) Acute HFrEF (heart failure with reduced ejection fraction) (Acute) NSTEMI (non-ST elevated myocardial infarction) (Acute) Acute respiratory failure with hypoxia (Acute) Sepsis (Acute) Perforation of sigmoid colon due to diverticulitis (Acute) Debility (Acute) Vital Signs Temp Pulse Resp BP Pulse Ox O2 Del Method 98.0 F 82 16 121/67 H 99 Room Air 12/26/24 19:56 12/26/24 19:56 12/26/24 19:56 12/26/24 19:56 12/26/24 19:56 12/26/24 19:56 Oxygen Delivery Method Room Air Assessment/Plan: 1. Pain: acetaminophen 1000mg PO Q6H PRN pain 1-10. Resident has had 2 doses forpain scores of 4 (hip) and 6 (abdomen). Please continue to monitor for increasedpain, PRN usage and LFTs (last 12/01/24). 2. Bowel: senna/docusate 1T PO BID. Please continue to monitor for constipation and diarrhea. Last documented bowel movement was 12/26/24. 3. DVT prophylaxis: enoxaparin 30mg SC daily. No new SCr or weight available to calculate CrCl. Please continue to monitor hemoglobin (last 12.2g/dL from 12/01/24, new labs pending tomorrow morning), S/S of bleeding and CrCl (labs tomorrow morning). 4. NSTEMI/chronic HFrEF: carvedilol 6.35mg PO BID, isosorbide dinitrate 10mg PO TID and aspirin 81mg PO daily. Please continue to monitor for S/S of bleeding/cardiac event, HR (last 82), BP (last 121/67), chest pain, headache, facial flushing. 5. Diabetes mellitus II: insulin glargine 14units SC AM and insulin lispro 4units SC TIDAC. Please continue to monitor for S/S of hypoglycemia, glucose (last 242mg/dL), and hemoglobin A1c (last 5.8% 11/02/24). 6. BPH/urinary retention: finasteride 5mg PO daily, tamsulosin 0.4mg PO QHS. Please continue to monitor for S/S of urinary retention, BPH, GI side effects and BP (last 121). 7. Diabetic polyneuropathy: gabapentin 300mg PO QHS. Please continue to monitor for pain, confusion, renal function, falls/fractures (BEERs). 8. Thrush: nystatin 500,000units PO 4x/day thru 01/02/25. Please continue to monitor for improvement in thrush. Assessment/Plan for indications treated with psychotropic medications: Resident is not prescribed scheduled or prn psychotropic medications at the time of this drug regimen review. Medical chart and medication regimen reviewed. The following medication irregularities or issues were identified: None Date Date of Note: 12/27/24 Documented by User: Dr. Arnulfo Londono MD 12/27/24 17:03 TCU RX Drug Regimen Review Provider Comments Provider responsibility Provider Comments to Recommendations by Pharmacy Agree 12/27/24 1634 <Electronically signed by Lucy Kowalski> Lucy Kowalski Cosigner Signature (if applicable): 12/27/24 1703 <Electronically signed by Arnulfo Londono MD> CC: ~ Signed [facility] Work Phone: 1(356) 392-217106-04-2025 Progress note [facility] Medical Records Department [address] [place] [address] Progress Note - Pharmacy 12/27/24 1622 MR#: [id number] Acct: [id number] Name: JOAO BARNETT Rep #:[id number] : 1945 79 From: Lucy Kowalski PCP: DEANNA Franklin Status:ADM IN Location: [facility] [id number] Documented by User: Lucy Kowalski 12/27/24 16:34 TCU RX Drug Regimen Review Subjective/Objective Subjective/Objective Subjective: TCU Admission. 79 YOM presented to ER with abdominal pain. Hospitalized for sepsis, perforated sigmoid diverticulitis, underwent right hemicolectomy, partial colectomy (transverse colon),ileostomy, complicated by acute respiratory failure requiring intubation, acute HFrEF, acute kidneyfailure requiring dialysis, nstemi, severe aortic stenosis, dysphagia, urinary retention. Admitted to TCU with debility for strengthening and rehabilitation. Objective: Allergies atorvastatin (From Lipitor) Allergy (Verified 12/26/24 20:42) INTOLERANCE ezetimibe (From Zetia) Allergy (Verified 12/26/24 20:42) MYALGIA INTOLERANCE pravastatin Allergy (Verified 12/26/24 20:42) MYALGIAS INTOLERANCE simvastatin (From Zocor) Allergy (Verified 12/26/24 20:42) INTOLERANCE sitagliptin (From Januvia) Allergy (Verified 12/26/24 20:42) INTOLERANCE tetanus and diphtheria toxoids Allergy (Verified 12/01/24 22:00) Rash Mbaifpe-IJC-QyJ Reductase Inhibitor (Vxghrpy-Nwg-Qga Reductase Inhibitor) Adverse Reaction (Verified 12/01/24 22:00) Other Current Medications Generic Name Dose Route Start Last Admin Trade Name Freq PRN Reason Stop Dose Admin Acetaminophen 1,000 mg 12/26/24 20:56 12/27/24 06:09 Acetaminophen 500 Mg Tablet PO 1,000 mg Q6H PRN PRN Administration Pain Score 1-10 Aspirin 81 mg 12/27/24 08:00 12/27/24 08:43 Aspirin 81 Mg Tab.Chew PO 81 mg BREAKFAST LATANYA Administration Carvedilol 6.25 mg 12/27/24 08:00 12/27/24 08:42 Carvedilol 6.25 Mg Tablet PO 6.25 mg BIDCM LATANYA Administration Protocol Enoxaparin Sodium 30 mg 12/27/24 06:00 12/27/24 06:10 Enoxaparin 30 Mg/0.3 Ml Syringe SC 30 mg DAILY@0600 LATANYA Administration Finasteride 5 mg 12/27/24 10:00 12/27/24 08:43 Finasteride 5 Mg Tablet PO 5 mg DAILY LATANYA Administration Gabapentin 300 mg 12/26/24 22:00 12/26/24 23:02 Gabapentin 300 Mg Capsule PO 300 mg QHS LATANYA Administration Insulin Glargine 14 unit 12/27/24 10:00 12/27/24 08:43 Insulin Glargine-Yfgn 100 Unit/Ml Pen SC 14 unit QAM LATANYA Administration Insulin Human Lispro 4 unit 12/27/24 06:45 12/27/24 12:04 Insulin Lispro 100 Unit/Ml Insuln.Pen SC 4 u TIDAC LATANYA Administration Isosorbide Dinitrate 10 mg 12/26/24 22:00 12/27/24 13:49 Isosorbide Dn 10 Mg Tablet PO 10 mg TID LAATNYA Administration Protocol Nystatin 500,000 unit 12/26/24 22:00 12/27/24 13:49 Nystatin 500,000 Unit/5 Ml Udc PO 01/02/25 22:01 500,000 unit 4X/DAY LATANYA Administration Senna/Docusate Sodium 1 tablet 12/26/24 22:00 12/27/24 08:43 Senna/Docusate Sodium 1 Tablet PO 1 tablet BID LATANYA Administration Tamsulosin HCl 0.4 mg 12/26/24 22:00 12/26/24 23:01 Tamsulosin Hcl 0.4 Mg Capsule PO 0.4 mg QHS LATANYA Administration Tuberculin PPD 0.1 ml 01/03/25 10:00 Tuberculin,Purif.Prot.Deriv. 50 Tu/Ml Vial ID 01/03/25 10:01 X1 ONE Problem List (Updated 12/26/24 @ 20:[address] Arnulfo Londono MD) Muscle spasm (Acute) Diabetic polyneuropathy (Acute) Iron deficiency anemia (Acute) BPH (benign prostatic hyperplasia) (Acute) Essential (primary) hypertension (Acute) Diabetes (Acute) Urinary retention (Acute) Dysphagia (Acute) Acute renal failure on dialysis (Acute) Severe aortic stenosis (Acute) Acute HFrEF (heart failure with reduced ejection fraction) (Acute) NSTEMI (non-ST elevated myocardial infarction) (Acute) Acute respiratory failure with hypoxia (Acute) Sepsis (Acute) Perforation of sigmoid colon due to diverticulitis (Acute) Debility (Acute) Vital Signs Temp Pulse Resp BP Pulse Ox O2 Del Method 98.0 F 82 16 121/67 H 99 Room Air 12/26/24 19:56 12/26/24 19:56 12/26/24 19:56 12/26/24 19:56 12/26/24 19:56 12/26/24 19:56 Oxygen Delivery Method Room Air Assessment/Plan: 1. Pain: acetaminophen 1000mg PO Q6H PRN pain 1-10. Resident has had 2 doses forpain scores of 4 (hip) and 6 (abdomen). Please continue to monitor for increasedpain, PRN usage and LFTs (last 12/01/24). 2. Bowel: senna/docusate 1T PO BID. Please continue to monitor for constipation and diarrhea. Last documented bowel movement was 12/26/24. 3. DVT prophylaxis: enoxaparin 30mg SC daily. No new SCr or weight available to calculate CrCl. Please continue to monitor hemoglobin (last 12.2g/dL from 12/01/24, new labs pending tomorrow morning), S/S of bleeding and CrCl (labs tomorrow morning). 4. NSTEMI/chronic HFrEF: carvedilol 6.35mg PO BID, isosorbide dinitrate 10mg PO TID and aspirin 81mg PO daily. Please continue to monitor for S/S of bleeding/cardiac event, HR (last 82), BP (last 121/67), chest pain, headache, facial flushing. 5. Diabetes mellitus II: insulin glargine 14units SC AM and insulin lispro 4units SC TIDAC. Please continue to monitor for S/S of hypoglycemia, glucose (last 242mg/dL), and hemoglobin A1c (last 5.8% 11/02/24). 6. BPH/urinary retention: finasteride 5mg PO daily, tamsulosin 0.4mg PO QHS. Please continue to monitor for S/S of urinary retention, BPH, GI side effects and BP (last 121/67). 7. Diabetic polyneuropathy: gabapentin 300mg PO QHS. Please continue to monitor for pain, confusion, renal function, falls/fractures (BEERs). 8. Thrush: nystatin 500,000units PO 4x/day thru 01/02/25. Please continue to monitor for improvementin thrush. Assessment/Plan for indications treated with psychotropic medications: Resident is not prescribed scheduled or prn psychotropic medications at the time of this drug regimen review. Medical chart and medication regimen reviewed. The following medication irregularities or issues were identified: None Date Date of Note: 12/27/24 Documented by User: Dr. Arnulfo Londono MD 12/27/24 17:03 TCU RX Drug Regimen Review Provider Comments Provider responsibility Provider Comments to Recommendations by Pharmacy Agree 12/27/24 1634 Lucy Floresigntian Signature (if applicable): 12/27/24 1703 CC: ~ Signed [facility]06-04-2025 Radiology Diagnostic study note [facility] Imaging Services [address] [place] [address] Chest PA and Lateral MR#: [id number] Acct: [id number] Name: JOAO BARNETT Rep #: [id number] : 1945 M 79 From: Bridget Ruiz MD PCP: DEANNA Franklin Status: ADM IN Study:Chest PA and Lateral Date of Exam: 12/27/24 Exam# [id number] Ordering Dr: Arnulfo Londono MD EXAM: XR Chest, 2 Views CLINICAL INDICATION: LEFT LOWER LOBE CRACKLES. TECHNIQUE: Frontal and lateral views of the chest. COMPARISON: No relevant prior studies available. FINDINGS: LUNGS AND PLEURAL SPACES: Unremarkable. No consolidation. No pneumothorax. HEART: Unremarkable. No cardiomegaly. MEDIASTINUM: Unremarkable. Normal mediastinal contour. BONES/JOINTS: Unremarkable. No acute fracture. RAD/Chest PA and Lateral IMPRESSION: No acute cardiopulmonary process. Reading Location: [facility] CC: [employer] [facility]; Dr. Arnulfo Londono MD ~ Cardiovascular Invasive Specialist: Signed [facility]06-03-2025 [facility]06-03-2025 [facility]06-03-2025 [facility] 12-25-2024 [facility]06-02-2025 Telephone encounter Note* Telephone Encounter - Melo Gloriaette - 12/25/2024 8:44 AM EDT Still admitted Mandi Gloria [facility]06-02-2025 Miscellaneous Notes* Telephone Encounter - Juani Mandi - 12/25/2024 8:44 AM EDT Still admitted Mandi Gloria * Telephone Encounter - Duc Vieyra MD - 12/24/2024 3:35 PM EDT Failed VT, needs VT with nurse in 1 week [facility]06-01-2025 [facility]06-01-2025 Telephone encounter Note* Telephone Encounter - Duc Vieyra MD - 12/24/2024 3:35 PM EDT Failed VT, needs VT with nurse in 1 week [facility] Work Phone: 1(239) 323-714106-01-2025 [facility]05-31-2025 [facility]05-31-2025 [facility] 12-23-2024 NoteHNO ID: [id number] Author: JOSAFAT CASE, MELISA Service: Dialysis Author Type: Registered Nurse Type: Nursing Progress Note Filed: 12/23/2024 13:05 Note Text: 3 hour hemo treatment complete,tolerated well,no fluid removed. See scanned flow sheet.[facility]05-30-2025 [facility]05-30-2025 [facility]05-30-2025 [facility]05-30-2025 NoteHNO ID: [id number] Author: CHRISTOPHER VAZQUEZ, RN Service: Nursing Author Type: Registered Nurse Type: Nursing Progress Note Filed: 12/22/2024 16:15 Note Text: Other: Dr Colbert at the bedside to address IJ site.[facility] 12-22-2024 [facility]05-30-2025 [facility]05-29-2025 NoteHNO ID: [id number] Author: CATHY FISH, MELISA Service: ? Author Type: Registered Nurse Type: Progress Notes Filed: 12/21/2024 17:49 Note Text: Hemodialysis completed, pt tolerated well. See flow sheet. Fluid balance even [facility]05-29-2025 [facility] 12-21-2024 [facility]05-28-2025 [facility]05-28-2025 [facility]05-28-2025 [facility]05-27-2025 [facility]05-27-2025 [facility]05-26-2025 [facility]05-25-2025 Note [facility]05-25-2025 [facility] 12-16-2024 [facility]05-23-2025 [facility]05-22-2025 [facility]05-21-2025 [facility]05-21-2025 [facility]05-21-2025 [facility]05-20-2025 [facility]05-19-2025 Note [facility]05-18-2025 [facility] 12-10-2024 [facility]05-18-2025 NoteHNO ID: [id number] Author: NOTE, INTERFACE, ? Service: ? Author Type: ? Type: Progress Notes Filed: 12/10/2024 02:55 Note Text: Epic Scheduled Downtime: 12/10/2024 1:00:00 AM to 12/10/2024 2:37:00 [facility] NoteHNO ID: [id number] Author: JONNIE BAKER, MELISA Service: Nursing Author Type: Registered Nurse Type: Nursing Progress Note Filed: 12/09/2024 16:14 Note Text: Report called to 5200 Rn and bedside handoff [facility] 12-09-2024 [facility]05-17-2025 [facility]05-17-2025 NoteHNO ID: [id number] Author: NOTE, INTERFACE, ? Service: ? Author Type: ? Type: Progress Notes Filed: 12/09/2024 03:47 Note Text: Epic Scheduled Downtime: 12/09/2024 1:00:00 AM to 12/09/2024 3:39:00 [facility]05-16-2025 Note [facility]05-15-2025 [facility] 12-07-2024 [facility]05-15-2025 [facility]05-15-2025 [facility]05-15-2025 [facility]05-14-2025 [facility]05-14-2025 [facility]05-14-2025 [facility]05-14-2025 Note [facility]05-13-2025 [facility] 12-04-2024 [facility]05-12-2025 [facility]05-12-2025 [facility]05-12-2025 [facility]05-11-2025 [facility]05-11-2025 [facility]05-10-2025 [facility]05-10-2025 History and physical note [facility] Medical Records Department [address] [place] [id number] History & Physical Exam 12/02/24 0131 MR#: [id number] Acct: [id number] Name: JOAO BARNETT Rep #:[id number] : 1945 79 From: Zahira Churchill PCP: DEANNA Franklin Status:DEP ER Location: ED [facility] - General General Date of Service: 12/02/24 Chief Complaint: Acute onset abdominal discomfort HPI Narrative JOAO BARNETT, is a 79 M who presents to [facility] in the company of both his sons and his due to progressive abdominal distention, progressive abdominal pain, and inability to have a bowel movement for the past 6 days. Patient reports that he underwent back surgery with Dr. Colon on 11/27/2024 and said progressive abdominal discomfort ever since. His family reports that he has passed some flatus but he has had progressive bloating and chills which started yesterday. Patient and his family note that the absence of bowel activity is highly unusual as patient normallyexperiences bowel movements twice daily every day. Patient's ER workup notable for CBC with mild leukocytosis of 12.1. More significantly patient underwent CT imaging of the abdomen pelvis with intravenous contrast. 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 Additionally they noted the presence of some free air due to microperforationsalong the sigmoid colon. Patient's colon was also notably distended with a diameter just over 6 cm along the ascending segment. Patient's past abdominal surgical history includes left inguinal hernia repair with mesh and ventral hernia repair by Dr. Guillaume Hancock remotely. [facility] Medical History CKD (chronic kidney disease), stage IV Wears glasses Wears dentures BPH (benign prostatic hyperplasia) Arthritis Prostate disease Low iron History of diverticulitis Heartburn Former smoker Leg cramps History of echocardiogram Hypertrophic scar Carotid stenosis, left Sebaceous cyst Amaurosis fugax of right eye Sciatica Hyperlipidemia Osteoarthritis Hemorrhoid GERD (gastroesophageal reflux disease) HTN (hypertension) Diabetes Carotid stenosis Home Medications ?Medication ?Instructions ?Recorded ?Last Taken ?Type aspirin 81 mg tablet,delayed 81 mg PO DAILY@0800 heart health 04/16/17 11/26/24 09:00 History release glimepiride 2 mg tablet 2 mg PO BREAKFAST dm 7 11/26/24 09:00 History hydrochlorothiazide 25 mg tablet 25 mg PO DAILY bp 11/26/24 09:00 History metformin 1,000 mg tablet 1,000 mg PO BID dm 04/16/17 11/26/24 19:30 History tamsulosin 0.4 mg capsule 0.4 mg PO QHS bph 04/16/17 0 11/26/24 22:30 History cholecalciferol (vitamin D3) 25 25 mcg PO DAILY SUPPLE MENT 04/05/23 11/26/24 09:00 History mcg (1,000 unit) capsule zinc acetate 25 mg (zinc) capsule 50 mg PO DAILY SUPPL EMENT 04/05/23 11/26/24 09:00 History ascorbic acid (vitamin C) 500 mg 500 mg PO DAILY SUPPL EMENT 09/15/24 11/26/24 09:00 History capsule ferrous sulfate 325 mg (65 mg 325 mg PO QDAY SUPPLEMEN T 09/15/24 11/26/24 09:00 History iron) tablet (Feosol) gabapentin 300 mg capsule 300 mg PO QHS PAIN 10/31/24 11/25/24 22:30 History amlodipine 10 mg tablet 10 mg PO DAILY htn 11/27/24 11/26/24 09:00 History acetaminophen 500 mg tablet 500 mg PO Q6H #30 tabs 02/16 Unknown Rx methocarbamol 500 mg tablet 750 mg (1.5 x 500 mg) PO T ID PRN 11/29/24 Unknown Rx pain/spasms #60 tabs oxycodone 5 mg tablet 2.5 - 5 mg (0.5 - 1 x 5 mg) PO Q6H 11/29/24 Unknown Rx PRN pain 7 days #28 tabs sennosides 8.6 mg-docusate sodium 2 tab PO BID PRN con stipation #30 11/29/24 Unknown Rx 50 mg tablet (Stimulant Laxative tabs Plus) Allergy/AdvReac Type Severity Reaction Status Date / Time tetanus and diphtheria Allergy Rash Verified 12/01/24 22:00 toxoids Xrofbhw-SFG-DzD Reductase AdvReac Other Verified 12/01/24 22:00 Inhibitor (Ggvrmyx-Bqw-Tyt Reductase Inhibitor) Family History Father Diabetes Heart disease Myocardial infarction Mother CAD (coronary artery disease) Arthritis Surgical History History of right-sided carotid endarterectomy History of right-sided carotid endarterectomy (~11/2017) History of umbilical hernia S/P ventral herniorrhaphy S/P inguinal hernia repair S/P colonoscopy Social History Smoking Status: Former smoker Vital Signs Vital Signs Vital Signs: 12/01/24 22:01 12/02/24 00:00 Temperature 97.6 F L Temperature Source Oral Pulse Rate 62 125 H Respiratory Rate 18 20 H Blood Pressure 153/95 H 167/90 H Blood Pressure Mean 114 115 Pulse Ox 95 96 Oxygen Delivery Method Room Air Room Air Weight Weight: 168 lb 10.458 oz Body Mass Index (BMI) 28.0 Physical Exam Const alert Constitutional Narrative: Mild distress General Appearance: cooperative Resp Resp Narrative: Mildly tachypneic GI GI Narrative: Moderately to severely distended, taut, tympanitic, tender to palpation but not frankly peritoneal.No visible hernias. Results Lab / Micro Data 12/01/24 22:15 12/01/24 22:15 Labs: Laboratory Results - last 24 hr 12/01/24 22:15: WBC 12.1 H, RBC 3.91 L, Hgb 12.2 L, Hct 35.9 L, MCV 91.8, MCH 31.2, MCHC 34.0, RDW Std Deviation 41.3, RDW Coeff of Disha 12.3, Plt Count 436, MPV 11.1, Immature Gran % (Auto) 0.300, Neut % (Auto) 84.2 H, Lymph % (Auto) 7.9L, [place] % (Auto) 6.7, Eos % (Auto) 0.3, Baso % (Auto) 0.6, Absolute Neuts (auto)10.2 H, Absolute Lymphs (auto) 0.96, Nucleated RBC % 0, Sodium 136, Potassium 4.1,Chloride 101, Carbon Dioxide 16.6 L, Anion Gap 19 H, BUN 58 H, Creatinine 2.00 H, Estim Creat ClearCalc 29.06 L, Est GFR (MDRD) Non-Af 34 L, BUN/Creatinine Ratio 29.0 H, Glucose 131 H, Calcium 9.8, Total Bilirubin 0.66, AST 42 H, ALT 11, Alkaline Phosphatase 62, Total Protein 7.6, Albumin 4.1, Glob ulin 3.6, Albumin/Globulin Ratio 1.1, Lipase 13 12/01/24 22:28: Urine Color Yellow, Urine Clarity Clear, Urine pH 5.0, Ur Specific Donora 1.015, Urine Protein 100 H, Urine Glucose (UA) Normal, Urine Ketones 5 H, Urine Occult Blood 10 H, Urine Nitrite Negative, Urine Bilirubin Negative, Urine Urobilinogen Normal, Ur Leukocyte Esterase Negative, Urine RBC 0SEEN, Urine WBC 0-5 SEEN, Ur Squamous Epith Cells 0 SEEN, Amorphous Sediment 1+,Urine Bacteria 2+, Hyaline Casts 0-5 SEEN, Fine Granular Casts 0-5 SEEN, Urine Mucus 0 SEEN 12/02/24 00:41: Lactic Acid 1.5 Imaging Radiology Impression Abdomen/Pelvis CT 12/01/24 22:18 IMPRESSION: 1. Mild acute sigmoid diverticulitis, with scattered foci of free air, likely secondary to micro perforations. 2. Diffusely dilated ascending, transverse and proximal descending colonic loops, with pneumatosis as described above. Reading Location: [facility] Assessment & Plan Assessment/Plan (1) Free intraperitoneal air: PLAN: Patient is a 79-year-old male postoperative day 5 from lumbar fusion who presents with evidence of severe constipation and associated abdominal pain, distention, and nausea/vomiting. 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 Patient is markedly distended butnot frankly peritoneal. He is tachycardic with a irregular rhythm but his bloodpressure remains slightly high. I requested a check of patient's lactic acid which is within normal limits. In my independent review of the patient's CT imaging the pockets of free air appear to track towards the retroperitoneum and are in reasonably close proximity to recent instrumentation of the patient's lumbar spine. I have conversed with our spine surgeon and he is adamant there is no reason to suspect that his operation is the source for this air. Therefore, taken together it appears patient's severe colonic distention has ledto at least partial thickness compromise of the bowel and his clinical picture suggests possible recent microperforation versus impending large free wall perforation. I suggested that if this were to materialize, patient could potentially require total abdominal colectomy and the magnitude of this operation seems greaterthan what we can offer with limited resources at this facility?to say nothing of the probable need for intensive care support which isalso limited. I reviewed the CT images with the patient's family to illustrate my points throughout this discussion and they confirmed understanding both directly and through insightful questions. All questions were answered to theirsatisfaction and they agreed with transfer to tertiary facility. Emergency medicine was notified of this intent and begin the transfer process. In the meantime I asked for a basal fluid rate to be established intravenously (patientalready received empiric IV antibiotics from emergency medicine) to try to maintain patient's perfusion and requested a EKG be performed to follow-up patient's tachyarrhythmia. Lastly I notified Dr. Underwood of spine surgery of patient's imminent transfer. Zahira Smith MD General Surgery Endocrine Surgery Pager: [facility] [address] [place] [address], [facility], [address] [place] [address] Office: [phone] (2) Pneumatosis coli: (3) Colon distention: Charges/Coding Visit Charges Office Visits / Consults: [id number] ED Visit; High/Urgent Severity 12/02/24 0236 Cosigner Signature (if applicable): CC: [employer] [facility] Coron[place]; Dr. Zahira Smith MD~ Signed [facility]05-10-2025 NoteWUC [facility]05-10-2025 Radiology Diagnostic study note [facility] Imaging Services [address] [place] [id number] Abdomen/Pelvis W IV Cont ONLY MR#: [id number] Acct: [id number] Name: JOAO BARNETT Rep #: [id number] : 1945 M 79 From: Tiffanie Mehta MD PCP: DEANNA Franklin Status: REG ER Study:Abdomen/Pelvis W IV Cont ONLY Date of E xam: 12/01/24 Exam# [id number] Ordering Dr: Rolf Donovan MD PROCEDURE: ABDOMEN/PELVIS W IV CONT ONLY 12/01/2024 REASON FOR EXAM: ABDOMINAL PAIN AND DISTENTION TECHNIQUE: Abdomen and pelvis CT with intravenous contrast. Coronal and Sagittal reconstruction series were provided. PATIENT PREPARATION: Per protocol ORAL CONTRAST TYPE: None. AMOUNT: mL CONTRAST: Omnipaque 350 VOLUME: 100 mL Not Provided Gauge IV One or more dose reduction techniques were used (e.g., Automated exposure control, adjustment of the mA and/or kV according to patient size, use of iterative reconstruction technique. COMPARISON: None FINDINGS: Lung bases: Mild dependent atelectasis Liver: Normal size. No focal lesion. Gallbladder: No ductal dilation. Slightly distended gallbladder. Spleen: Normal size. Pancreas: Normal size without evidence of mass surrounding inflammation or ductal dilation. Adrenals: Unremarkable. Kidneys: Mild bilateral renal atrophy, with lobulated contours. No suspicious mass. No punctate right upper pole calculus. No hydronephrosis. Low-attenuation lesions too small to characterize, likely simple cysts.. Bladder: Urinary bladder is unremarkable. Reproductive Organs: No pelvic mass Bowel: Stomach is unremarkable. Colonic diverticulosis, with wall thickening and subcutaneous stranding along the descending and sigmoid colon, suggestive of mild diverticulitis. Multiple dilated colonic loops, predominantly in the ascending, transverse and proximal descending colon, measuring up to 6.3 cm. Within the ascending and transverse colon, thereis moderate pneumatosis. . Moderate colonic stool. Small bowel loops are nondilated. Appendix: Normal Lymph nodes: No suspicious lymph node enlargement. Vasculature: Moderate diffuse atherosclerotic calcification of the abdominal aorta and iliac arteries. No aneurysm formation. Peritoneum / Retroperitoneum: Tiny foci of pneumoperitoneum within the left lower quadrant (series 601 image 65 and series 2, image 96), concerning for sequela of microperforations from the adjacent diverticulitis. Bones: Degenerative changes of the lumbar spine. Postoperative changes L2-L5 posterior fusion. Soft tissue: Prior postoperative changes hernia repair. Mild diffuse subcutaneous stranding. CT/Abdomen/Pelvis W IV Cont ONLY IMPRESSION: 1. Mild acute sigmoid diverticulitis, with scattered foci of free air, likely secondary to micro perforations. 2. Diffusely dilated ascending, transverse and proximal descending colonic loops, with pneumatosis as described above. Reading Location: [facility] CC: DEANNA Coronado; Dr. Rolf Donovan MD ~ Cardiovascular Invasive Specialist: Signed [facility]05-07-2025 Consult note Author Lucy Kowalski [facility] Note Date/Time November 29, 2024 10:17a m [facility] Medical Records Department [address] [place] [address] Counseling Note - Pharmacy 11/29/24 1015 MR#: [id number] Acct: [id number] Name: JOAO BARNETT Rep #:[id number] : 1945 79 From: Lucy Kowalski PCP: DEANNA Franklin Status:ADM IN Y [facility] Pharmacy Service has performed discharge medication reconciliation and counseling for this patient. 1. Acetaminophen 500mg PO Q6 2. Methocarbamol 750mg PO TID PRN muscle pain/spasms 3. Oxycodone 2.5-5mg PO Q6H PRN pain 4. Senna/docusate 2T PO BID PRN constipation The patient's discharge medication list was reviewed for discrepancies and discrepancies were resolved. The patient was counseled on the following discharge medications and changes in medications for homegoing were reviewed. The Reason for Use, instructions for use, and potential side effects were reviewed for all new medications. The patient's questions regarding all of their medications were answered. The patient was able to verbally demonstrate an understanding of their dischargemedications. Medications at Discharge Home Medications aspirin 81 mg tablet,delayed release 81 mg PO DAILY@0800 [facility] 04/16/17 Held on 11/29/24. Instructions: Resume on 11/30/24. glimepiride 2 mg tablet 2 mg PO BREAKFAST dm 04/16/17 hydrochlorothiazide 25 mg tablet 25 mg PO DAILY bp 04/16/17 metformin 1,000 mg tablet 1,000 mg PO BID dm 04/16/17 tamsulosin 0.4 mg capsule 0.4 mg PO QHS bph 04/16/17 cholecalciferol (vitamin D3) 25 mcg (1,000 unit) capsule 25 mcg PO DAILY SUPPLEMENT 04/05/23 zinc acetate 25 mg (zinc) capsule 50 mg PO DAILY SUPPLEMENT 04/05/23 ascorbic acid (vitamin C) 500 mg capsule 500 mg PO DAILY SUPPLEMENT 09/15/24 ferrous sulfate 325 mg (65 mg iron) tablet (Feosol) 325 mg PO QDAY SUPPLEMENT 09/15/24 gabapentin 300 mg capsule 300 mg PO QHS PAIN 10/31/24 amlodipine 10 mg tablet 10 mg PO DAILY htn 11/27/24 acetaminophen 500 mg tablet 500 mg PO Q6H #30 tabs 11/29/24 methocarbamol 500 mg tablet 750 mg (1.5 x 500 mg) PO TID PRN pain/spasms #60 tabs 11/29/24 oxycodone 5 mg tablet 2.5 - 5 mg (0.5 - 1 x 5 mg) PO Q6H PRN pain 7 days #28 tabs 11/29/24 sennosides 8.6 mg-docusate sodium 50 mg tablet (Stimulant Laxative Plus) 2 tab PO BID PRN constipation #30 tabs 11/29/24 11/29/24 1017 <Electronically signed by Lucy Kowalski> Date _ Lucy Kowalski Cosigner Signature (if applicable): Date CC: ~ Signed [facility] Work Phone: 1(273) 308-643505-07-2025 Consult note [facility] Medical Records Department [address] [place] [address] Counseling Note - Pharmacy 11/29/24 1015 MR#: [id number] Acct: [id number] Name: JOAO BARNETT ALBERT Rep #:[id number] : 1945 79 From: Lucy Kowalski PCP: DENANA Franklin Status:ADM IN Y [facility] Pharmacy Service has performed discharge medication reconciliation and counseling for this patient. 1. Acetaminophen 500mg PO Q6 2. Methocarbamol 750mg PO TID PRN muscle pain/spasms 3. Oxycodone 2.5-5mg PO Q6H PRN pain 4. Senna/docusate 2T PO BID PRN constipation The patient's discharge medication list was reviewed for discrepancies and discrepancies were resolved. The patient was counseled on the following discharge medications and changes in medications for homegoing were reviewed. The Reason for Use, instructions for use, and potential side effects were reviewed for all new medications. The patient's questions regarding all of their medications were answered. The patient was able to verbally demonstrate an understanding of their dischargemedications. Medications at Discharge Home Medications aspirin 81 mg tablet,delayed release 81 mg PO DAILY@0800 [facility] 04/16/17 Held on 11/29/24. Instructions: Resume on 11/30/24. glimepiride 2 mg tablet 2 mg PO BREAKFAST dm 04/16/17 hydrochlorothiazide 25 mg tablet 25 mg PO DAILY bp 04/16/17 metformin 1,000 mg tablet 1,000 mg PO BID dm 04/16/17 tamsulosin 0.4 mg capsule 0.4 mg PO QHS bph 04/16/17 cholecalciferol (vitamin D3) 25 mcg (1,000 unit) capsule 25 mcg PO DAILY SUPPLEMENT 04/05/23 zinc acetate 25 mg (zinc) capsule 50 mg PO DAILY SUPPLEMENT 04/05/23 ascorbic acid (vitamin C) 500 mg capsule 500 mg PO DAILY SUPPLEMENT 09/15/24 ferrous sulfate 325 mg (65 mg iron) tablet (Feosol) 325 mg PO QDAY SUPPLEMENT 09/15/24 gabapentin 300 mg capsule 300 mg PO QHS PAIN 10/31/24 amlodipine 10 mg tablet 10 mg PO DAILY htn 11/27/24 acetaminophen 500 mg tablet 500 mg PO Q6H #30 tabs 11/29/24 methocarbamol 500 mg tablet 750 mg (1.5 x 500 mg) PO TID PRN pain/spasms #60 tabs 11/29/24 oxycodone 5 mg tablet 2.5 - 5 mg (0.5 - 1 x 5 mg) PO Q6H PRN pain 7 days #28 tabs 11/29/24 sennosides 8.6 mg-docusate sodium 50 mg tablet (Stimulant Laxative Plus) 2 tab PO BID PRN constipation #30 tabs 11/29/24 11/29/24 1017 Date _ Lucy Miramontes Signature (if applicable): Date CC: ~ Signed [facility]05-07-2025 Progress note Author Betina James [facility] Note Date/Time November 29, 2024 7:34am [facility] Medical Records Department [address] [place] [address] Progress Note - Orthopedic 11/29/24730 MR#: [id number] Acct: [id number] Name: JOAO BARNETT Rep #:[id number] : 1945 79 From: Betina ASKEW PCP: DEANNA Franklin Status:ADM IN Location: AK[facility] [id number] Subjective Subjective Postop day 2 L2-5 fusion. Patient says that he has been walking more in the hallways and tolerated therapy well. The patient has passed gas and has tolerated a solid meal. No nausea or vomiting. The patient does continue to have some abdominal discomfort and distention. Patient is ready for home discharge today. Objective Data Objective Data Vital Signs: Vital Signs Temp Pulse Resp BP Pulse Ox O2 Del Method O2 Flow Rate 98.6 F 125 H 18 138/83 H 94 Room Air 2 11/29/24 04:03 11/29/24 04:03 11/29/24 04:03 11/29/24 04:03 11/29/24 04:03 11/29/24 04:03 11/28/24 10:17 Oxygen Flow Rate (L/min) 2 Oxygen Delivery Method Room Air Weight: 162 lb 14.746 oz Body Mass Index (BMI) 27.1 Intake & Output: Intake and Output for Last 24 Hours 11/27/24 11/28/24 11/29/24 23:59 23:59 23:59 Intake Total 4448.60 / 4448.60 1150 / 1450 600 / 600 Output Total 1450 / 1450 Balance 2998.60 / 2998.60 1150 / 1450 600 / 600 Lab / Micro Data 11/28/24 05:52 11/28/24 05:52 Labs: Laboratory Results - last 24 hr 11/28/24 11:16: POC Glucose 178 H 11/28/24 16:00: POC Glucose 163 H 11/28/24 20:55: POC Glucose 200 H 11/29/24 06:52: POC Glucose 158 H Micro: Microbiology 11/02/24 12:29 Swab (Method) Nasal Screen MRSA/MSSA - Final Physical Exam Narrative Neurological examination of the lower extremity shows 5X5 power. Normal sensation across all dermatomes. Physical examination of the back and belly shows Tegaderm and gauze CDI. Patient abdomen is tight and slightly tender to palpation. Const alert, oriented x3 and no apparent distress Assessment & Plan Assessment/Plan (1) Status post lumbar spinal fusion: PLAN: Plan Postop day 2 L2-5 fusion. The patient has walked with PT/OT who recommends additional therapy but ready for home discharge. Reviewed and educated on the use of the incentive spirometer. Encouraged the patient to walk more and to get out of bed to use the restroom. Patient has passed gas and has tolerated a solid meal. Home meds include oxycodone, acetaminophen, methocarbamol, senna. Holding meloxicam due to high creatinine. Patient will follow-up in the clinic in 2 weeks. Patient is in agreement. 11/29/24733 <Electronically signed by Betina ASKEW> Cosigner Signature (if applicable): CC: ~ Signed [facility] Work Phone: 1(699) 770-944305-07-2025 Progress note [facility] Medical Records Department [address] [place] [address] Progress Note - Orthopedic 11/29/24730 MR#: [id number] Acct: [id number] Name: JOAO BARNETT Rep #:[id number] : 1945 79 From: Betina ASKEW PCP: DEANNA Franklin Status:ADM IN Location: MS3 [id number] Subjective Subjective Postop day 2 L2-5 fusion. Patient says that he has been walking more in the hallways and tolerated therapy well. The patient has passed gas and has tolerated a solid meal. No nausea or vomiting. The patient does continue to have some abdominal discomfort and distention. Patient is ready for home discharge today. Objective Data Objective Data Vital Signs: Vital Signs Temp Pulse Resp BP Pulse Ox O2 Del Method O2 Flow Rate 98.6 F 125 H 18 138/83 H 94 Room Air 2 11/29/24 04:03 11/29/24 04:03 11/29/24 04:03 11/29/24 04:03 11/29/24 04:03 11/29/24 04:03 11/28/24 10:17 Oxygen Flow Rate (L/min) 2 Oxygen Delivery Method Room Air Weight: 162 lb 14.746 oz Body Mass Index (BMI) 27.1 Intake & Output: Intake and Output for Last 24 Hours 11/27/24 11/28/24 11/29/24 23:59 23:59 23:59 Intake Total 4448.60 / 4448.60 1150 / 1450 600 / 600 Output Total 1450 / 1450 Balance 2998.60 / 2998.60 1150 / 1450 600 / 600 Lab / Micro Data 11/28/24 05:52 11/28/24 05:52 Labs: Laboratory Results - last 24 hr 11/28/24 11:16: POC Glucose 178 H 11/28/24 16:00: POC Glucose 163 H 11/28/24 20:55: POC Glucose 200 H 11/29/24 06:52: POC Glucose 158 H Micro: Microbiology 11/02/24 12:29 Swab (Method) Nasal Screen MRSA/MSSA - Final Physical Exam Narrative Neurological examination of the lower extremity shows 5X5 power. Normal sensation across all dermatomes. Physical examination of the back and belly shows Tegaderm and gauze CDI. Patient abdomen is tight and slightly tender to palpation. Const alert, oriented x3 and no apparent distress Assessment & Plan Assessment/Plan (1) Status post lumbar spinal fusion: PLAN: Plan Postop day 2 L2-5 fusion. The patient has walked with PT/OT who recommends additional therapy but ready for home discharge. Reviewed and educated on the use of the incentive spirometer. Encouraged the patient to walk more and to get out of bed to use the restroom. Patient has passed gas and has tolerated a solid meal. Home meds include oxycodone, acetaminophen, methocarbamol, senna. Holding meloxicam due to high creatinine. Patient will follow-up in the clinic in 2 weeks. Patient is in agreement. 11/29/24 0734 Cosigner Signature (if applicable): CC: ~ Signed [facility]05-06-2025 Progress note Author Betina James [facility] Note Date/Time November 28, 2024 4:10pm [facility] Medical Records Department [address] [place] [address] Progress Note - Orthopedic 11/28/24 1605 MR#: [id number] Acct: [id number] Name: JOAO BARNETT Rep #:[id number] : 1945 79 From: Betina ASKEW PCP: DEANNA Franklin Status:ADM IN Location: MS3 OA689-8 Subjective Subjective Postop day 1 L2-5 fusion. Patient did have some increased pain after the surgery however he says today his pain has improved. Patient also notes a left-sided groin pain and left-sided hip pain however the patient said that he did have left hip bursitis prior to the surgery. Patient's blood pressure has been a little bit high while admitted. He has not yet passed gas. This morning the patient had not yet gone to the bathroom and was just using the urinal in bed. Seen with Dr. Colon. Objective Data Objective Data Vital Signs: Vital Signs Temp Pulse Resp BP Pulse Ox O2 Del Method O2 Flow Rate 97.6 F L 96 17 148/88 H 96 Room Air 2 11/28/24 15:15 11/28/24 15:15 11/28/24 15:15 11/28/24 15:15 11/28/24 15:15 11/28/24 15:15 11/28/24 10:17 Oxygen Flow Rate (L/min) 2 Oxygen Delivery Method Room Air Weight: 162 lb 14.746 oz Body Mass Index (BMI) 27.1 Intake & Output: Intake and Output for Last 24 Hours 11/26/24 11/27/24 11/28/24 23:59 23:59 23:59 Intake Total 4448.60 / 4448.60 750 / 750 Output Total 1450 / 1450 Balance 2998.60 / 2998.60 750 / 750 Lab / Micro Data 11/28/24 05:52 11/28/24 05:52 Labs: Laboratory Results - last 24 hr 11/27/24 21:52: POC Glucose 353 H 11/28/24 05:52: WBC 13.4 H, RBC 3.30 L, Hgb 10.3 L, Hct 30.0 L, MCV 90.9, MCH 31.2, MCHC 34.3, RDW Std Deviation 40.9, RDW Coeff of Disha 12.5, Plt Count 262, MPV 11.5, Sodium 141, Potassium 4.8, Chloride 108, Carbon Dioxide 18.9 L, Anion Gap 14, BUN 31 H, Creatinine 2.03 H, Estim Creat Clear Calc 28.19 L, Est GFR (MDRD) Non-Af 33 L, BUN/Creatinine Ratio 15.0, Glucose 243 H, Calcium 8.8 11/28/24 06:07: POC Glucose 230 H 11/28/24 11:16: POC Glucose 178 H Micro: Microbiology 11/02/24 12:29 Swab (Method) Nasal Screen MRSA/MSSA - Final Radiography Diagnostic Testing: Radiology Impression Lumbar Spine X-Ray 11/27/24 06:30 IMPRESSION: Fluoroscopy with 18 spot views as above. Reading Location: [facility] Lumbar Spine X-Ray 11/28/24 04:50 IMPRESSION: Status post intervertebral disc spacers L2-3, L3-4 and L4-5 with posterior fixation L2, L4 and L5 and left lateral anchor screws L2 and L4 appears intact and anatomic. No fracture or malalignment. Reading Location: [facility] Physical Exam Narrative Neurological examination of the lower extremity shows 5X5 power. Normal sensation across all dermatomes. Physical examination of the back and belly shows Tegaderm and gauze CDI. Const alert, oriented x3 and no apparent distress Assessment & Plan Assessment/Plan (1) Status post lumbar spinal fusion: PLAN: Plan Postop day 1 L2-5 fusion. Obtained and reviewed x-rays today which show hardware and bone graft in good position. The patient has walked with PT/OT who recommends additional therapy. Reviewed and educated on the use of the incentive spirometer. Encouraged the patient to walk more and to get out of bed to use the restroom. The patient has not yet passed gas and so we will stay another night. Patient is in agreement. 11/28/24 1610 <Electronically signed by Betina ASKEW> Cosigner Signature (if applicable): CC: ~ Signed [facility] Work Phone: 1(879) 496-241305-06-2025 Progress note Author Jeanne Pressley [facility] Note Date/Time November 28, 2024 3:59pm [facility] Medical Records Department [address] [place] [address] Progress Note - Hospitalist 11/28/24 0829 MR#: [id number] Acct: [id number] Name: JOAO BARNETT Rep #:[id number] : 1945 79 From: Jeanne Pressley DO PCP: DEANNA Franklin Status:ADM IN Location: AK3 [id number] Reason for Visit Reason for Visit: Lumbar spinal stenosis Subjective Subjective Patient states he is really feeling well today. Still no passage of flatus. But doing well overall. No nausea or vomiting. Objective Data Objective Data Vital Signs: Vital Signs Temp Pulse Resp BP Pulse Ox O2 Del Method O2 Flow Rate 97.5 F L 112 H 16 167/84 H 96 Nasal Cannula 2 11/28/24 06:16 11/28/24 06:16 11/28/24 06:16 11/28/24 06:16 11/28/24 06:16 11/28/24 06:16 11/28/24 06:16 Oxygen Flow Rate (L/min) 2 Oxygen Delivery Method Nasal Cannula Weight: 73.9 kg Body Mass Index (BMI) 27.1 Intake & Output: Intake and Output for Last 24 Hours 11/26/24 11/27/24 11/28/24 23:59 23:59 23:59 Intake Total 4448.60 / 4448.60 400 / 400 Output Total 1450 / 1450 Balance 2998.60 / 2998.60 400 / 400 Lab / Micro Data 11/28/24 05:52 11/28/24 05:52 Labs: Laboratory Results - last 24 hr 11/27/24 06:01: POC Glucose 198 H 11/27/24 10:18: WBC 8.1, RBC 3.22 L, Hgb 10.2 L, Hct 29.6 L, MCV 91.9, MCH 31.7,MCHC 34.5, RDW Std Deviation 41.6, RDW Coeff of Disha 12.4, Plt Count 249, MPV 10.7, Immature Gran % (Auto) 0.700, Neut % (Auto) 69.9, Lymph % (Auto) 18.7 L, [place] % (Auto) 7.2, Eos % (Auto) 2.5, Baso % (Auto) 1.0, Absolute Neuts (auto) 5.7, Absolute Lymphs (auto) 1.51, Nucleated RBC % 0, Sodium 140, Potassium 4.3, Chloride 110 H, Carbon Dioxide 20.1 L, Anion Gap 10, BUN 29 H, Creatinine 1.78 H, Estim Creat Clear Calc 32.15 L, Est GFR (MDRD) Non-Af 39 L, BUN/Creatinine Ratio 16.1, Glucose 137 H, Calcium 8.2 11/27/24 14:23: POC Glucose 252 H 11/27/24 21:52: POC Glucose 353 H 11/28/24 05:52: WBC 13.4 H, RBC 3.30 L, Hgb 10.3 L, Hct 30.0 L, MCV 90.9, MCH 31.2, MCHC 34.3, RDW Std Deviation 40.9, RDW Coeff of Disha 12.5, Plt Count 262, MPV 11.5, Sodium 141, Potassium 4.8, Chloride 108, Carbon Dioxide 18.9 L, Anion Gap 14, BUN 31 H, Creatinine 2.03 H, Estim Creat Clear Calc 28.19 L, Est GFR (MDRD) Non-Af 33 L, BUN/Creatinine Ratio 15.0, Glucose 243 H, Calcium 8.8 11/28/24 06:07: POC Glucose 230 H Micro: Microbiology 11/02/24 12:29 Swab (Method) Nasal Screen MRSA/MSSA - Final ABG Data ABG results: ABG 11/27/24 11/27/24 10:01 12:08 Specimen Type ART ART Sample Site Art Line Art Line pH 7.29 L 7.34 L Bicarbonate Actual 21.2 L 21.2 L Total CO2 23 22 Base Excess -5 L -5 L O2 Saturation 100 H 100 H O2 % 60.0 ABG pCO2 43.9 39.4 ABG pO2 187 H 193 H Respiration Rate 10 O2 Delivery Device Not entered Adult Vent Vent Mode Not entered SIMV Tidal Volume 500.0 Peak Inspir Pressure 17 Radiography Diagnostic Testing: Radiology Impression Lumbar Spine X-Ray 11/27/24 06:30 IMPRESSION: Fluoroscopy with 18 spot views as above. Reading Location: [facility] Lumbar Spine X-Ray 11/28/24 04:50 IMPRESSION: Status post intervertebral disc spacers L2-3, L3-4 and L4-5 with posterior fixation L2, L4 and L5 and left lateral anchor screws L2 and L4 appears intact and anatomic. No fracture or malalignment. Reading Location: [facility] Physical Exam Const alert, oriented x3, no apparent distress, healthy appearing and well nourished Constitutional Narrative: Overweight, elderly, white male, sitting up in a chair at the bedside, appears comfortable, nontoxic, at bedside HEENT head/scalp atraumatic and moist oral mucous membranes Head and Scalp: normocephalic Resp normal respiratory effort, no retractions, no use of accessory muscles and clearto auscultation bilaterally Auscultation: Negative for rales, rhonchi or wheezes Cardio regular rate, regular rhythm, S1 normal heart sound, S2 normal heart sound, no murmurs, no rub, no gallops and no clicks GI normal to inspection, nondistended, normoactive bowel sounds, soft to palpation and non-tender Extremity no clubbing, cyanosis or edema Extremity Narrative: Pedal and radial pulses are 2+ Neuro oriented x3, moves all extremities and no focal motor deficits Speech: speech normal Psych affect normal Psych Narrative: Very pleasant, interacts appropriately Assessment & Plan Assessment/Plan (1) Spondylolisthesis, lumbar region: (2) Spinal stenosis of lumbar region with neurogenic claudication: (3) Anemia: (4) Leukocytosis: (5) Hyperglycemia: PLAN: Plan Low back pain secondary to spinal stenosis - Postop day 1 L2-5 posterior spinal instrumented fusion with Dr. 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 Medical cleared. Dr. Colon notified and will sign off. Charges/Coding Visit Charges Inpatient E&M: 69712 Subs Hosp L2 11/28/24 8665 <Electronically signed by Jeanne Pressley DO> Cosigner Signature (if applicable): CC: ~ Signed [facility] Work Phone: 1(881) 421-270705-06-2025 Progress note [facility] Medical Records Department [address] [place] [address] Progress Note - Orthopedic 11/28/24 1605 MR#: [id number] Acct: [id number] Name: JOAO BARNETT Rep #:[id number] : 1945 79 From: Betina ASKEW PCP: DEANNA Franklin Status:ADM IN Location: [place] [id number] Subjective Subjective Postop day 1 L2-5 fusion. Patient did have some increased pain after the surgery however he says today his pain has improved. Patient also notes a left-sided groin pain and left-sided hip pain however the patient said that he did have left hip bursitis prior to the surgery. Patient's blood pressurehas been a little bit high while admitted. He has not yet passed gas. This morning the patient had not yet gone to the bathroom and was just using the urinal in bed. Seen with Dr. Colon. Objective Data Objective Data Vital Signs: Vital Signs Temp Pulse Resp BP Pulse Ox O2 Del Method O2 Flow Rate 97.6 F L 96 17 148/88 H 96 Room Air 2 11/28/24 15:15 11/28/24 15:15 11/28/24 15:15 11/28/24 15:15 11/28/24 15:15 11/28/24 15:15 11/28/24 10:17 Oxygen Flow Rate (L/min) 2 Oxygen Delivery Method Room Air Weight: 162 lb 14.746 oz Body Mass Index (BMI) 27.1 Intake & Output: Intake and Output for Last 24 Hours 11/26/24 11/27/24 11/28/24 23:59 23:59 23:59 Intake Total 4448.60 / 4448.60 750 / 750 Output Total 1450 / 1450 Balance 2998.60 / 2998.60 750 / 750 Lab / Micro Data 11/28/24 05:52 11/28/24 05:52 Labs: Laboratory Results - last 24 hr 11/27/24 21:52: POC Glucose 353 H 11/28/24 05:52: WBC 13.4 H, RBC 3.30 L, Hgb 10.3 L, Hct 30.0 L, MCV 90.9, MCH 31.2, MCHC 34.3, RDW Std Deviation 40.9, RDW Coeff of Disha 12.5, Plt Count 262, MPV 11.5, Sodium 141, Potassium 4.8, Chloride 108, Carbon Dioxide 18.9 L, Anion Gap 14, BUN 31 H, Creatinine 2.03 H, Estim Creat Clear Calc 28.19 L, Est GFR (MDRD) Non-Af 33 L, BUN/Creatinine Ratio 15.0, Glucose 243 H, Calcium 8.8 11/28/24 06:07: POC Glucose 230 H 11/28/24 11:16: POC Glucose 178 H Micro: Microbiology 11/02/24 12:29 Swab (Method) Nasal Screen MRSA/MSSA - Final Radiography Diagnostic Testing: Radiology Impression Lumbar Spine X-Ray 11/27/24 06:30 IMPRESSION: Fluoroscopy with 18 spot views as above. Reading Location: [facility] Lumbar Spine X-Ray 11/28/24 04:50 IMPRESSION: Status post intervertebral disc spacers L2-3, L3-4 and L4-5 with posterior fixation L2, L4 and L5 and left lateral anchor screws L2 and L4 appears intact and anatomic. No fracture or malalignment. Reading Location: [facility] Physical Exam Narrative Neurological examination of the lower extremity shows 5X5 power. Normal sensation across all dermatomes. Physical examination of the back and belly shows Tegaderm and gauze CDI. Const alert, oriented x3 and no apparent distress Assessment & Plan Assessment/Plan (1) Status post lumbar spinal fusion: PLAN: Plan Postop day 1 L2-5 fusion. Obtained and reviewed x-rays today which show hardware and bone graft in good position. The patient has walked with PT/OT who recommends additional therapy. Reviewed and educated on the use of the incentive spirometer. Encouraged the patient to walk more and to get out of bed to use the restroom. The patient has not yet passed gas and so we will stay another night. Patient is in agreement. 11/28/24 1610 Cosigner Signature (if applicable): CC: ~ Signed [facility]05-06-2025 Progress note [facility] Medical Records Department [address] [place] [address] Progress Note - Hospitalist 11/28/24 0829 MR#: [id number] Acct: [id number] Name: JOAO BARNETT Rep #:[id number] : 1945 79 From: Jeanne Pressley DO PCP: DEANNA Franklin Status:ADM IN [place] [facility] [place] TM012-7 Reason for Visit Reason for Visit: Lumbar spinal stenosis Subjective Subjective Patient states he is really feeling well today. Still no passage of flatus. But doing well overall.No nausea or vomiting. Objective Data Objective Data Vital Signs: Vital Signs Temp Pulse Resp BP Pulse Ox O2 Del Method O2 Flow Rate 97.5 F L 112 H 16 167/84 H 96 Nasal Cannula 2 11/28/24 06:16 11/28/24 06:16 11/28/24 06:16 11/28/24 06:16 11/28/24 06:16 11/28/24 06:16 11/28/24 06:16 Oxygen Flow Rate (L/min) 2 Oxygen Delivery Method Nasal Cannula Weight: 73.9 kg Body Mass Index (BMI) 27.1 Intake & Output: Intake and Output for Last 24 Hours 11/26/24 11/27/2425 23:59 23:59 23:59 Intake Total 4448.60 / 4448.60 400 / 400 Output Total 1450 / 1450 Balance 2998.60 / 2998.60 400 / 400 Lab / Micro Data 11/28/24 05:52 11/28/24 05:52 Labs: Laboratory Results - last 24 hr 11/27/24 06:01: POC Glucose 198 H 11/27/24 10:18: WBC 8.1, RBC 3.22 L, Hgb 10.2 L, Hct 29.6 L, MCV 91.9, MCH 31.7,MCHC 34.5, RDW Std Deviation 41.6, RDW Coeff of Disha 12.4, Plt Count 249, MPV 10.7, Immature Gran % (Auto) 0.700, Neut %(Auto) 69.9, Lymph % (Auto) 18.7 L, [place] % (Auto) 7.2, Eos % (Auto) 2.5, Baso % (Auto) 1.0, Absolute Neuts (auto) 5.7, Absolute Lymphs (auto) 1.51, Nucleated RBC % 0, Sodium 140, Potassium 4.3, Chloride 110 H, Carbon Dioxide 20.1 L, Anion Gap 10, BUN 29 H, Creatinine 1.78 H, Estim Creat Clear Calc 32.15 L, Est GFR (MDRD) Non-Af 39 L, BUN/Creatinine Ratio 16.1, Glucose 137 H, Calcium 8.2 11/27/24 14:23: POC Glucose 252 H 11/27/24 21:52: POC Glucose 353 H 11/28/24 05:52: WBC 13.4 H, RBC 3.30 L, Hgb 10.3 L, Hct 30.0 L, MCV 90.9, MCH 31.2, MCHC 34.3, RDW Std Deviation 40.9, RDW Coeff of Disha 12.5, Plt Count 262, MPV 11.5, Sodium 141, Potassium 4.8, Chloride 108, Carbon Dioxide 18.9 L, Anion Gap 14, BUN 31 H, Creatinine 2.03 H, Estim Creat Clear Calc 28.19 L, Est GFR (MDRD) Non-Af 33 L, BUN/Creatinine Ratio 15.0, Glucose 243 H, Calcium 8.8 11/28/24 06:07: POC Glucose 230 H Micro: Microbiology 11/02/24 12:29 Swab (Method) Nasal Screen MRSA/MSSA - Final ABG Data ABG results: ABG 11/27/24 11/27/24 10:01 12:08 Specimen Type ART ART Sample Site Art Line Art Line pH 7.29 L 7.34 L Bicarbonate Actual 21.2 L 21.2 L Total CO2 23 22 Base Excess -5 L -5 L O2 Saturation 100 H 100 H O2 % 60.0 ABG pCO2 43.9 39.4 ABG pO2 187 H 193 H Respiration Rate 10 O2 Delivery Device Not entered Adult Vent Vent Mode Not entered SIMV Tidal Volume 500.0 Peak Inspir Pressure 17 Radiography Diagnostic Testing: Radiology Impression Lumbar Spine X-Ray 11/27/24 06:30 IMPRESSION: Fluoroscopy with 18 spot views as above. Reading Location: [facility] Lumbar Spine X-Ray 11/28/24 04:50 IMPRESSION: Status post intervertebral disc spacers L2-3, L3-4 and L4-5 with posterior fixation L2, L4 and L5 and left lateral anchor screws L2 and L4 appears intact and anatomic. No fracture or malalignment. Reading Location: [facility] Physical Exam Const alert, oriented x3, no apparent distress, healthy appearing and well nourished Constitutional Narrative: Overweight, elderly, white male, sitting up in a chair at the bedside, appears comfortable, nontoxic, at bedside HEENT head/scalp atraumatic and moist oral mucous membranes Head and Scalp: normocephalic Resp normal respiratory effort, no retractions, no use of accessory muscles and clearto auscultation bilaterally Auscultation: Negative for rales, rhonchi or wheezes Cardio regular rate, regular rhythm, S1 normal heart sound, S2 normal heart sound, no murmurs, no rub, no gallops and no clicks GI normal to inspection, nondistended, normoactive bowel sounds, soft to palpation and non-tender Extremity no clubbing, cyanosis or edema Extremity Narrative: Pedal and radial pulses are 2+ Neuro oriented x3, moves all extremities and no focal motor deficits Speech: speech normal Psych affect normal Psych Narrative: Very pleasant, interacts appropriately Assessment & Plan Assessment/Plan (1) Spondylolisthesis, lumbar region: (2) Spinal stenosis of lumbar region with neurogenic claudication: (3) Anemia: (4) Leukocytosis: (5) Hyperglycemia: PLAN: Plan Low back pain secondary to spinal stenosis - Postop day 1 L2-5 posterior spinal instrumented fusion with Dr. 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 Medical cleared. Dr. Colon notified and will sign off. Charges/Coding Visit Charges Inpatient E&M: 02750 Subs Hosp L2 11/28/24 2108 Cosigner Signature (if applicable): CC: ~ Signed [facility]05-06-2025 Radiology Diagnostic study note [facility] Imaging Services [address] [place], [place] [address] Lumbar Spine 2 or 3 Views MR#: [id number] Acct: [id number] Name: JOAO BARNETT Rep #: [id number] : 1945 M 79 From: Erik Clark MD PCP: DEANNA Franklin Status: ADM IN Study:Lumbar Spine 2 or 3 Views Date of Exam: 11/28/24 Exam# [id number] Ordering Dr: Suraj James PA PROCEDURE: LUMBAR SPINE 2 OR 3 VIEWS 11/28/2024 REASON FOR EXAM: S/P LUMBAR FUSION TECHNIQUE: 2 view(s) of the lumbar spine FINDINGS: Status post intervertebral disc spacers L2-3, L3-4 and L4-5 with posterior fixation L2, L4 and L5 and left lateral anchor screws L2 and L4 appears intact and anatomic. No fracture or malalignment. RAD/Lumbar Spine 2 or 3 Views IMPRESSION: Status post intervertebral disc spacers L2-3, L3-4 and L4-5 with posterior fixation L2, L4 and L5 and left lateral anchor screws L2 and L4 appears intact and anatomic. No fracture or malalignment. Reading Location: [facility] CC: DEANNA Coronado; AZAR Muller ~ Cardiovascular Invasive Specialist: Signed [facility]05-06-2025 Radiology Diagnostic study note [facility] Imaging Services [address] [place] [address] Lumbar Spine 2 or 3 Views MR#: [id number] Acct: [id number] Name: JOAO BARNETT Rep #: [id number] : 1945 M 79 From: Erik Clark MD PCP: DEANNA Franklin Status: ADM IN Study:Lumbar Spine 2 or 3 Views Date of Exam: 11/27/24 Exam# [id number] Ordering Dr: Krissy Colon MD PROCEDURE: LUMBAR SPINE 2 OR 3 VIEWS 11/27/2024 REASON FOR EXAM: LUMBER 350 FUSION, L2-3, L3-4, L4-5 TECHNIQUE: Fluoroscopy with 18 spot views lumbar spine FINDINGS: Fluoroscopy time 144.8 seconds Cumulative dose 51.50 mGy Spot images with intervertebral disc spacers L2-3, L3-4 and L4-5 with posterior fusion and bilateral transpedicular screws L2, L4 and L5. Right lateral screw L2 and L4. Please see operative report for furtherdetail. RAD/Lumbar Spine 2 or 3 Views IMPRESSION: Fluoroscopy with 18 spot views as above. Reading Location: [facility] CC: DEANNA Coronado; Dr. Bill Colon MD ~ Cardiovascular Invasive Specialist: Signed [facility]05-05-2025 Progress note Author Lilly Owens [facility] Note Date/Time November 27, 2024 6:46pm [facility] Medical Records Department [address] [place] [address] Progress Note - Hospitalist 11/27/24 1844 MR#: [id number] Acct: [id number] Name: JOAO BARNETT Rep #:[id number] : 1945 79 From: Lilly Owens MD PCP: DEANNA Franklin Status:ADM IN Location: [facility] [place] BO046-5 Reason for Visit Reason for Visit: Diagnoses Encounter for other preprocedural examination (11/27/24) Subjective Subjective Patient is a 79-year-old male with a history of left-sided carotid stenosis, CKD, lumbar spinal stenosis, diabetes, BPH, hypertension who presented [facility] 11/27/2024 for lumbar fusion with Dr. Colon. Hospitalist consulted for postoperative medical management. Patient reports he still feels tired postanesthesia and is still having quite a bit of pain, no chest pain or shortness of breath, no palpitations or other focal or acute complaints Objective Data Objective Data Vital Signs: Vital Signs Temp Pulse Resp BP Pulse Ox O2 Del Method O2 Flow Rate 98.0 F 99 16 153/75 H 94 Nasal Cannula 2 11/27/24 17:51 11/27/24 17:51 11/27/24 17:51 11/27/24 17:51 11/27/24 17:51 11/27/24 17:51 11/27/24 17:51 Oxygen Flow Rate (L/min) 2 Oxygen Delivery Method Nasal Cannula Weight: 73.9 kg Body Mass Index (BMI) 27.1 Intake & Output: Intake and Output for Last 24 Hours 11/25/24 11/26/24 11/27/24 23:59 23:59 23:59 Intake Total 3589.35 / 3589.35 Output Total 1050 / 1050 Balance 2539.35 / 2539.35 Lab / Micro Data 11/27/24 10:18 11/27/24 10:18 Labs: Laboratory Results - last 24 hr 11/27/24 06:01: POC Glucose 198 H 11/27/24 06:40: Blood Type O POSITIVE, Antibody Screen NEGATIVE 11/27/24 10:18: WBC 8.1, RBC 3.22 L, Hgb 10.2 L, Hct 29.6 L, MCV 91.9, MCH 31.7,MCHC 34.5, RDW Std Deviation 41.6, RDW Coeff of Disha 12.4, Plt Count 249, MPV 10.7, Immature Gran % (Auto) 0.700, Neut % (Auto) 69.9, Lymph % (Auto) 18.7 L, [place] % (Auto) 7.2, Eos % (Auto) 2.5, Baso % (Auto) 1.0, Absolute Neuts (auto) 5.7, Absolute Lymphs (auto) 1.51, Nucleated RBC % 0, Sodium 140, Potassium 4.3, Chloride 110 H, Carbon Dioxide 20.1 L, Anion Gap 10, BUN 29 H, Creatinine 1.78 H, Estim Creat Clear Calc 32.15 L, Est GFR (MDRD) Non-Af 39 L, BUN/Creatinine Ratio 16.1, Glucose 137 H, Calcium 8.2 11/27/24 14:23: POC Glucose 252 H Micro: Microbiology 11/02/24 12:29 Swab (Method) Nasal Screen MRSA/MSSA - Final ABG Data ABG results: ABG 11/27/24 11/27/24 10:01 12:08 Specimen Type ART ART Sample Site Art Line Art Line pH 7.29 L 7.34 L Bicarbonate Actual 21.2 L 21.2 L Total CO2 23 22 Base Excess -5 L -5 L O2 Saturation 100 H 100 H O2 % 60.0 ABG pCO2 43.9 39.4 ABG pO2 187 H 193 H Respiration Rate 10 O2 Delivery Device Not entered Adult Vent Vent Mode Not entered SIMV Tidal Volume 500.0 Peak Inspir Pressure 17 Physical Exam Narrative General: Alert, no apparent distress HEENT: Atraumatic, normocephalic Eyes: Anicteric, normal conjunctiva, extraocular movements grossly intact Neck: Supple Respiratory: Clear to auscultation bilaterally, normal respiratory effort Cardiovascular: Low-grade sinus tachycardia, patient currently reports he is in pain GI: Soft, nontender, nondistended Extremities: No edema Musculoskeletal: Moving all extremities Neuro: No overt focal neurological deficits Skin: No rashes appreciated Psych: Cooperative Assessment & Plan Assessment/Plan (1) Lumbar spinal stenosis: QUALIFIERS: Neurogenic claudication status: with neurogenic claudication Qualified Code(s): M48.062 - Spinal stenosis, lumbar region with neurogenic claudication PLAN: Plan # Hypertension - Will hold patient's amlodipine and hydrochlorothiazide to allow room for postoperative pain control, if patient remains hypertensive despite pain regimenthese can be resumed #Chronic BPH with obstruction -Continue home medications # CKD stage III b -Appears to be somewhat down from baseline -Avoid nephrotoxic agents - Repeat in the a.m. #Type 2 diabetes mellitus -Glucose checks and sliding scale insulin - Will hold metformin at this time, can resume on discharge # History of carotid stenosis -Patient has listed intolerance to statins -Patient's home aspirin can be resumed once cleared to do so by primary team -Did have right sided carotid endarterectomy in 2018 -Can continue outpatient follow-up # Lumbar stenosis and disc degeneration -Pre-Operative Diagnosis: L2-3, L3-4 retrolisthesis, L2-5 disc degeneration, stenosis and neurogenic claudication -Surgery/Procedure Performed: L2-5 posterior spinal instrumented fusion with on 11/27/2024 - Postoperative management/pain management per primary - PT/OT #DVT ppx: Timing and agent at discretion of primary team Lilly Owens MD Time spent in the patient's overall evaluation, decision-making process, review of diagnostic data, adjustment of management, discussion with other providers, nursing and ancillary staff involved in patient's care documentation, 25 Minutes Charges/Coding Visit Charges Office Visits / Consults: 77939 OV L3 Est 20min 11/27/24 1846 <Electronically signed by Lilly Owens MD> Cosigner Signature (if applicable): CC: ~ Signed [facility] Work Phone: 1(846) 564-582005-05-2025 Progress note [facility] Medical Records Department [address] [place] [address] Progress Note - Hospitalist 11/27/24 184 MR#: [id number] Acct: [id number] Name: JOAO BARNETT Rep #:[id number] : 1945 79 From: Lilly Owens MD PCP: DEANNA Franklin Status:ADM IN Location: [place] [address] Reason for Visit Reason for Visit: Diagnoses Encounter for other preprocedural examination (11/27/24) Subjective Subjective Patient is a 79-year-old male with a history of left-sided carotid stenosis, CKD, lumbar spinal stenosis, diabetes, BPH, hypertension who presented [facility] 11/27/2024 for lumbar fusion with Dr. Colon. Hospitalist consulted for postoperative medical management. Patient reports he still feels tired postanesthesia and is still having quite a bit of pain, no chest pain or shortness of breath, no palpitations or other focal or acute complaints Objective Data Objective Data Vital Signs: Vital Signs Temp Pulse Resp BP Pulse Ox O2 Del Method O2 Flow Rate 98.0 F 99 16 153/75 H 94 Nasal Cannula 2 11/27/24 17:51 11/27/24 17:51 11/27/24 17:51 11/27/24 17:51 11/27/24 17:51 11/27/24 17:51 11/27/24 17:51 Oxygen Flow Rate (L/min) 2 Oxygen Delivery Method Nasal Cannula Weight: 73.9 kg Body Mass Index (BMI) 27.1 Intake & Output: Intake and Output for Last 24 Hours 11/25/24 11/26/24 11/27/24 23:59 23:59 23:59 Intake Total 3589.35 / 3589.35 Output Total 1050 / 1050 Balance 2539.35 / 2539.35 Lab / Micro Data 11/27/24 10:18 11/27/24 10:18 Labs: Laboratory Results - last 24 hr 11/27/24 06:01: POC Glucose 198 H 11/27/24 06:40: Blood Type O POSITIVE, Antibody Screen NEGATIVE 11/27/24 10:18: WBC 8.1, RBC 3.22 L, Hgb 10.2 L, Hct 29.6 L, MCV 91.9, MCH 31.7,MCHC 34.5, RDW Std Deviation 41.6, RDW Coeff of Disha 12.4, Plt Count 249, MPV 10.7, Immature Gran % (Auto) 0.700, Neut %(Auto) 69.9, Lymph % (Auto) 18.7 L, [place] % (Auto) 7.2, Eos % (Auto) 2.5, Baso % (Auto) 1.0, Absolute Neuts (auto) 5.7, Absolute Lymphs (auto) 1.51, Nucleated RBC % 0, Sodium 140, Potassium 4.3, Chloride 110 H, Carbon Dioxide 20.1 L, Anion Gap 10, BUN 29 H, Creatinine 1.78 H, Estim Creat Clear Calc 32.15 L, Est GFR (MDRD) Non-Af 39 L, BUN/Creatinine Ratio 16.1, Glucose 137 H, Calcium 8.2 11/27/24 14:23: POC Glucose 252 H Micro: Microbiology 11/02/24 12:29 Swab (Method) Nasal Screen MRSA/MSSA - Final ABG Data ABG results: ABG 11/27/24 11/27/24 10:01 12:08 Specimen Type ART ART Sample Site Art Line Art Line pH 7.29 L 7.34 L Bicarbonate Actual 21.2 L 21.2 L Total CO2 23 22 Base Excess -5 L -5 L O2 Saturation 100 H 100 H O2 % 60.0 ABG pCO2 43.9 39.4 ABG pO2 187 H 193 H Respiration Rate 10 O2 Delivery Device Not entered Adult Vent Vent Mode Not entered SIMV Tidal Volume 500.0 Peak Inspir Pressure 17 Physical Exam Narrative General: Alert, no apparent distress HEENT: Atraumatic, normocephalic Eyes: Anicteric, normal conjunctiva, extraocular movements grossly intact Neck: Supple Respiratory: Clear to auscultation bilaterally, normal respiratory effort Cardiovascular: Low-grade sinus tachycardia, patient currently reports he is in pain GI: Soft, nontender, nondistended Extremities: No edema Musculoskeletal: Moving all extremities Neuro: No overt focal neurological deficits Skin: No rashes appreciated Psych: Cooperative Assessment & Plan Assessment/Plan (1) Lumbar spinal stenosis: QUALIFIERS: Neurogenic claudication status: with neurogenic claudication Qualified Code(s): M48.062- Spinal stenosis, lumbar region with neurogenic claudication PLAN: Plan # Hypertension - Will hold patient's amlodipine and hydrochlorothiazide to allow room for postoperative pain control, if patient remains hypertensive despite pain regimenthese can be resumed #Chronic BPH with obstruction -Continue home medications # CKD stage III b -Appears to be somewhat down from baseline -Avoid nephrotoxic agents - Repeat in the a.m. #Type 2 diabetes mellitus -Glucose checks and sliding scale insulin - Will hold metformin at this time, can resume on discharge # History of carotid stenosis -Patient has listed intolerance to statins -Patient's home aspirin can be resumed once cleared to do so by primary team -Did have right sided carotid endarterectomy in 2018 -Can continue outpatient follow-up # Lumbar stenosis and disc degeneration -Pre-Operative Diagnosis: L2-3, L3-4 retrolisthesis, L2-5 disc degeneration, stenosis and neurogenic claudication -Surgery/Procedure Performed: L2-5 posterior spinal instrumented fusion with on 11/27/2024 - Postoperative management/pain management per primary - PT/OT #DVT ppx: Timing and agent at discretion of primary team Lilly Owens MD Time spent in the patient's overall evaluation, decision-making process, review of diagnostic data,adjustment of management, discussion with other providers, nursing and ancillary staff involved in patient's care documentation, 25 Minutes Charges/Coding Visit Charges Office Visits / Consults: 30459 OV L3 Est 20min 11/27/24 1846 Cosigner Signature (if applicable): CC: ~ Signed [facility]05-05-2025 Consult note Author Chan Bragg [facility] Note Date/Time November 27, 2024 1:53pm [facility] Medical Records Department [address] [place] [address] Anesthesia Postop Eval II 11/27/24 1353 MR#: [id number] Acct: [id number] Name: JOAO BARNETT Rep #:[id number] : 1945 79 From: Chan Bragg MD PCP: DEANNA Franklin Status:ADM IN Y Race: C Location: [place] [address] Anesthesia Postop Eval I Sum Postop Eval Completion status Anesthesia document: Postop Eval 1 completed: Yes Anesthesia Postop Eval I Summary Anesthesia Postop Eval I Summary: Anesthesia Postop Eval I: Assessment Summary Airway patent Yes 11/27/24 13:10 FUEL CELL [email or web address].SOBR Spontaneous unlabored Yes 11/27/24 13:10 FUEL CELL [email or web address].SOBR respirations Mental status Awake,Calm 11/27/24 13:10 FUEL CELL DESIGNER.SOBR nausea No 11/27/24 13:10 FUEL CELL DESIGNER.SOBR Vomiting No 11/27/24 13:10 FUEL CELL DESIGNER.SOBR Anesthesia Postop Eval I: Fluid Summary Crystalloid volume administer 3,000 11/27/24 13:10 FUEL CELL DESIGNER.SOBR (ml) Colloids volume administered ( 100 11/27/24 13:10 FUEL CELL DESIGNER.SOBR ml) Blood Product volume administered (ml) Total IV fluid infused 3,100 11/27/24 13:10 FUEL CELL DESIGNER.SOBR Anesthesia Postop Eval I: Summary Notes 3 Anesthesia Complication No 11/27/24 13:10 FUEL CELL [email or web address].SOBR Anesthesia Complication Comment: Post-operative progress note Anesthesia: Postop Eval II Evaluation Mental status: Awake Pain Level: 0 nausea: No Vomiting: No Complications Anesthesia Complication: No 11/27/24 1353 <Electronically signed by Chan Bragg MD> Date _ Chan Bragg MD Cosigner Signature: Date CC: ~ Signed [facility] Work Phone: [phone]) 924-759505-05-2025 Consult note Author Sean BrockPutnam [facility] Note Date/Time November 27, 2024 1:10pm [facility] Medical Records Department [address] [place] [address] Anesthesia Postop Eval I 11/27/24 1309 MR#: [id number] Acct: [id number] Name: ANIBALJOAO RENEE ALBERT Rep #:[id number] : 1945 79 From: Sean GARCIA PCP: DEANNA Franklin Status:ADM IN Y Race: C Location: [place] [address] Anesthesia: Postop Eval I Current Vital Signs Temperature: 97.1 F Pulse Rate: 91 Blood Pressure: 144/71 Respiratory Rate: 16 Pulse Ox: 94 Oxygen Delivery Method: Room Air Assessment Airway patent: Yes Spontaneous unlabored respirations: Yes Mental status: Awake and Calm nausea: No Vomiting: No Anesthesia Complication: No Fluid Hydration Crystalloid volume administer (ml): 3,000 Colloids volume administered (ml): 100 Total IV fluid infused: 3,100 Progress Note Anesthesia document: Postop Eval 1 completed: Yes 11/27/24 1310 <Electronically signed by Sean Doyle CRNA> Date _ Sean Doyle CRNA Cosigner Signature: Date CC: ~ Signed [facility] Work Phone: 1(878) 367-955905-05-2025 Consult note [facility] Medical Records Department [address] [facility] [place] [address] Anesthesia Postop Eval II 11/27/24 1353 MR#: [id number] Acct: [id number] Name: JOAO BARNETT ALBERT Rep #:[id number] : 1945 79 From: Chan Bragg MD PCP: DEANNA Franklin Status:ADM IN Y Race: C Location: [place] [address] Anesthesia Postop Eval I Sum Postop Eval Completion status Anesthesia document: Postop Eval 1 completed: Yes Anesthesia Postop Eval I Summary Anesthesia Postop Eval I Summary: Anesthesia Postop Eval I: Assessment Summary Airway patent Yes 11/27/24 13:10 FUEL CELL DESIGNER.SOBR Spontaneous unlabored Yes 11/27/24 13:10 FUEL CELL DESIGNER.SOBR respirations Mental status Awake,Calm 11/27/24 13:10 FUEL CELL DESIGNER.SOBR nausea No 11/27/24 13:10 FUEL CELL DESIGNER.SOBR Vomiting No 11/27/24 13:10 FUEL CELL DESIGNER.SOBR Anesthesia Postop Eval I: Fluid Summary Crystalloid volume administer 3,000 11/27/24 13:10 FUEL CELL DESIGNER.SOBR (ml) Colloids volume administered ( 100 11/27/24 13:10 FUEL CELL DESIGNER.SOBR ml) Blood Product volume administered (ml) Total IV fluid infused 3,100 11/27/24 13:10 FUEL CELL DESIGNER.SOBR Anesthesia Postop Eval I: Summary Notes 3 Anesthesia Complication No 11/27/24 13:10 FUEL CELL DESIGNER.SOBR Anesthesia Complication Comment: Post-operative progress note Anesthesia: Postop Eval II Evaluation Mental status: Awake Pain Level: 0 nausea: No Vomiting: No Complications Anesthesia Complication: No 11/27/24 1353 MD> Date _ Chan Bragg MD Cosigner Signature: Date CC: ~ Signed [facility]05-05-2025 Procedure note [facility] Medical Records Department [address] [place] [address] Operative Report 11/27/24 1314 MR#: [id number] Acct: [id number] Name: ANIBALJOAOXENA PRICE Rep #:[id number] : 1945 79 From: Bill Colon MD PCP: Trinity Coronado NP-C Status:ADM IN Location: [facility] AC- A-1 Procedures Musculoskeletal 20xxx-29xxx: Other Procedure See Report Operative Report (Standard) Operative Information Date of Procedure: 11/27/24 Pre-Operative Diagnosis: L2-3, L3-4 retrolisthesis, L2-5 disc degeneration, stenosis and neurogenicclaudication Post-Operative Diagnosis: Same Surgery/Procedure Performed: L2-5 posterior spinal instrumented fusion painter and body work: Yes Dye Operator: Betina James Tasks completed by surgery assistant: Closing, Removing tissue, Implanting device, Hemostasis: Electrocautery and Retracting Type of Anesthesia: General RN Documented Start/Stop Times: Operation Date: 11/27/24 07:30 Case Time Into Pre-Op 11/27/24 05:36 Anesthesia Start 11/27/24 07:52 Into Room 11/27/24 07:52 Procedure Start 11/27/24 08:26 Procedure End 11/27/24 12:46 Anesthesia End 11/27/24 12:55 Out of Room 11/27/24 12:55 Procedure Start Time: 08:26 Procedure Stop Time: 12:46 Select all DRAINS/GRAFTS/IMPLANTS that apply: Graft Graft details: Allograft cancellous bone chips and Implanted device Implanted device details: DePuy Viper prime pedicle screw instrumentation Estimated Blood Loss: 100 cc Specimen collected: No Description of surgery: Preoperative diagnosis: L2-3, L3-4 retrolisthesis, L2-5 disc degeneration, stenosis with neurogenicclaudication Postoperative diagnosis: Same Name of procedures: L2-5 posterior percutaneous pedicle screw instrumented fusion, prone: ? L2-3 posterior spinal fusion 30813 ? L2-5 posterior pedicle screw instrumentation 58619 ? L3-4 posterior fusion 52722/51 ? L4-5 posterior fusion 24064/51 ? Allograft cancellous chips Attending Surgeon: Dr. Bill Colon Estimated blood loss: 100 mL (total for entire case) Anesthesia: General Complications: None Description of procedure: After the anterior procedure was complete, the patientwas then turned supine. The patient was then transferred to Cedrick table in prone position. Back was prepped and draped in usual fashion. C-arm AP view was then taken. C-arm was positioned in a way that L2 was centralized and superior endplate of was parallel to the beam. Spinous process was centered between the pedicles. Midline was marked with skin marker and lateral borders of the pedicles were also marked. Skin marker was also utilized to rita transversely across the middle of the pedicles at L2. 2 transverse paramedian incisions of 1 inch were placed. The fascia was incised vertically. Finger dissection was utilized to palpate the transverse process and facet joint. Viper Prime screws with towers were inserted and docked onto the transverse processes. This was then slowly moved medially to reach the superior articular process of L2. This was then confirmed on C-arm and then a mallet was utilized to drive the trocar into the pedicle going up to the medial wall of the pedicle on AP view. This was performed both sides. C-arm lateral view confirmed that the tip of the trocar was in the vertebral body, and the screw was advanced into the pedicle and vertebral body. This was repeated similarly at L4 and L5 bilaterally. Screw sizes were 7 x 50 mm at L2, L4, and L5on both sides. 110 mm precontoured titanium 5.5 mm lordotic zohreh on the right and 100 mm on the left were then passed through the screw extensions and reduced down to the screws with the help of Depuy Viper instrumentation system on both sides. AP and lateral view of the C-arm showed good positioning of the screws and cages. Final tightening with the torque screwdriver was then completed. Anton was utilized to roughen the facet joint at L2-3, L3-4, and L4-5 on the right side. Cancellous allograft bone chips mixedwith bone marrow aspirate were then placed over this decorticated area. Hemostasis was achieved. Closure was done in layers with 0 Vicryls for the fascia, 2-0 Vicryls for the subcutaneous tissue, and Monocryl for the skin. Dermabond was applied. Dressings were applied covered with Tegaderm. The patient was then turned supine onto a hospital bed. The patient was extubated and taken to PACU in stable condition. The patient tolerated the procedure well and no complications occurred. Depuy [place] cage & Viper Prime minimally invasive pedicle screw instrumentation system was utilized in this case. No dural tear was identified intraoperatively. I was present for the entirety of the case and performed the surgery. Bridge Opener Betina James PA-C. My physician food and nutrition services assistant was a vital part of this case. They were important in appropriate retraction during the case, and protection of soft tissues during the procedure.Their intimate knowledge of thecase and my steps aided in safe and expedient completion of the procedure as well as appropriate position of the patient during the surgery. They were also vital in assisting with closure under my direct supervision. Surgical Findings: See operative note Complications Complications: No 11/27/24 1317 Cosigner Signature (if applicable): CC: WINDOW ASSEMBLER-C Trinity Coronado; Dr. Bill Colon MD~ Signed [facility]05-05-2025 Procedure note [facility] Medical Records Department [address] [place] [address] Operative Report 11/27/24 1305 MR#: [id number] Acct: [id number] Name: JOAO BARNETT Rep #:[id number] : 1945 79 From: Bill Colon MD PCP: DEANNA Franklin Status:ADM IN Location: [facility] AC-TB A-1 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 Post-Operative Diagnosis: Same Surgery/Procedure Performed: L2-5 oblique lumbar interbody fusion painter and body work: Yes Dye Operator: Betina James Tasks completed by surgery assistant: Closing, Removing tissue, Hemostasis: Electrocautery and Retracting Type of Anesthesia: General RN Documented Start/Stop Times: Operation Date: 11/27/24 07:30 Case Time Into Pre-Op 11/27/24 05:36 Anesthesia Start 11/27/24 07:52 Into Room 11/27/24 07:52 Procedure Start 11/27/24 08:26 Procedure End 11/27/24 12:46 Anesthesia End 11/27/24 12:55 Out of Room 11/27/24 12:55 Procedure Start Time: 08:26 Procedure Stop Time: 12:46 Select all DRAINS/GRAFTS/IMPLANTS that apply: Graft Graft details: Allograft cancellous bone chips,autologous bone marrow aspirate and Implanted device Implanted device details: DePuy StyleTreadgar lateral lumbar interbodycage?peek Estimated Blood Loss: 100 cc Specimen collected: No Description of surgery: Preoperative diagnosis: L2-3 and L3-4 retrolisthesis, 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 L2-3 anterolateral spinal fusion 21917 ? L3-4 anterolateral fusion 23785/51 ? L4-5 anterolateral fusion 78281/51 ? L2-3 insertion of cage 82289 ? L3-4 insertion of cage 92514/51 ? L4-5 insertion of cage 30928/51 ? Bone graft aspirate left iliac crest separate incision ? Allograft cancellous chips Attending Surgeon: Dr. Bill Colon Estimated blood loss: 100 mL Anesthesia: General Complications: None Indications: Patient is a 79-year-old pleasant gentleman who has had a long history of low back pain and left lower extremity radiation, difficulty walking distances. Xrays & MRI revealed L2-3, L3-4 retrolisthesis, L2-5 disc degeneration with stenosis. After undergoing aprolonged period of nonoperative treatment, the patient elected to undergo surgical decompression & fusion. All surgical options were discussed with the patient including anterior and posterior approaches. All risks and benefits associated with the procedure were explained to the patient. The risks include but are not limited to infection, bleeding, injury to nerves and vessels including major vessels like IVC and aorta, persistent paresthesia, persistent pain, dural tear, need for further procedures, adjacent segment degeneration, pseudoarthrosis, hardware failure, retrograde ejaculation, paralytic ileus, etc. Procedure: The patient was identified in the preoperative holding suite using Unique patient identifiers. Skin was marked, consent was reviewed, and all questions were answered. The patient was then brought back to the operative room. A surgical timeout was performed to make sure correct procedure was being done on the correct patient and all operative room staff were on the same page. General endotracheal anesthesia was then given to the patient. Peña catheter was inserted. The patient was then carefully positioned in right lateral decubitus position with the left side up on a regular OR table. Axillary roll was placed and all bony prominences were well- padded. Hip positioners were placed in the posterior buttocks and anterior sternal area. The surgical area was prepped and draped in usual fashion. Preoperative antibiotic was injected IV as preoperative antibiotic. A final timeout was then again done just before starting the procedure. A 2 inch incision oblique was taken in the left lower quadrant of the abdomen 2 fingerbreadths away from the iliac crest and the lower ribs. Sharp dissection with Bovie was carried out up to the fascia covering the external oblique. The external oblique, internal oblique and transversus abdominis muscles were split along the muscle fibers and retroperitoneal space was entered. Sponge sticks were utilized to move the bowel and peritoneum omk-qz-erw-way and psoas muscle was exposed staying within the retroperitoneal plane. GFG Groupframe retractor system was positioned and the retractor blade was applied onto the psoas. The interval between psoas and midline structures was developed and appropriate retractors were placed. Once adequate interval was cleared, a disc space was identified and a marker x-ray was taken. This identified the L4-5 disc level. The prepsoas interval was then traced superiorly to expose the L3-4 and L2-3 disc levels. Annulotomy was done with a long handled knife starting at L4-5. Pituitary was used to remove disc material. Curettes were used to prepare the endplates. Disc space spreaders were utilized to distract and increase the disc height. Near complete discectomy was performed. Trials of serially increasing sizes were used. A Jamshidi needle was used to aspirate bone marrow from the left anterior iliac crest through a separate incision and this aspirate was mixed with the allograft bone chips. A Depuy [place] cage of size of the 18 x 50 x 12 mm with 15degrees lordosis was packed with corticocancellous allograft bone chips mixed with bone marrow aspirate. This was inserted into the L4-5 disc space. The retractors were then repositioned to expose the L3-4 and L2-3 disc and the procedure was repeated with complete discectomy and endplate preparation. Smaller disc distractors were also used to bluntly perform a contralateral annulotomy at all 3 levels. Cage size was 18 x 50 x 10 mm at L3-4, 18 x 50 x 12 mm at L2-3. AP and lateral C-arm pictures were taken toconfirm good position of the cage. Some bone chips were also packed around the cages. Screw with washer was placed into the lower L2 and L4 body with a washer partially covering the cage at L2-3 and L4-5. Hemostasis was confirmed. The retractor blades were removed. Closure was done in layers with a continuous strand of # 1 Vicryl in all muscle layers. 2-0 Vicryl was used for subcutaneous tissue and 4-0 for Monocryl for the skin. Steri-Strips were applied and 4 x 4 gauze and Tegaderm were applied. Bridge Opener Betina James PA-C. My physician food and nutrition services assistant was a vital part of this case. They were important in appropriate retraction during the case, and protection of soft tissues during the procedure.Their intimate knowledge of thecase and my steps aided in safe and expedient completion of the procedure as well as appropriate position of the patient during the surgery. They were also vital in assisting with closure under my direct supervision. Surgical Findings: See operative note Complications Complications: No 11/27/24 1314 Cosigner Signature (if applicable): CC: DEANNA Coronado; Dr. Bill Colon MD~ Signed [facility]05-05-2025 Consult note [facility] Medical Records Department [address] [place] [address] Anesthesia Postop Eval I 11/27/24 1309 MR#: [id number] Acct: [id number] Name: JOAO BARNETT #:[id number] : 1945 79 From: Sean GARCIA PCP: DEANNA Franklin Status:ADM IN Y Race: C [facility]: Postop Eval I Current Vital Signs Temperature: 97.1 F Pulse Rate: 91 Blood Pressure: 144/71 Respiratory Rate: 16 Pulse Ox: 94 Oxygen Delivery Method: Room Air Assessment Airway patent: Yes Spontaneous unlabored respirations: Yes Mental status: Awake and Calm nausea: No Vomiting: No Anesthesia Complication: No Fluid Hydration Crystalloid volume administer (ml): 3,000 Colloids volume administered (ml): 100 Total IV fluid infused: 3,100 Progress Note Anesthesia document: Postop Eval 1 completed: Yes 11/27/24 1310 FUEL CELL DESIGNER> Date _ Sean Doyle FUEL CELL DESIGNER Cosigner Signature: Date CC: ~ Signed [facility]05-05-2025 History and physical note Author [facility] Colon [facility] Note Date/Time November 27, 2024 7:14am [facility] Medical Records Department [address] [place] [address] History & Physical Exam 11/27/24 0713 MR#: [id number] Acct: [id number] Name: JOAO BARNETT Rep #:[id number] : 1945 79 From: Bill Colon MD PCP: DEANNA Franklin Status:ADM IN Location: [facility] A-1 History and Physical Date of Admission: 11/27/24 MR#: [id number] Acct: [id number] Name: JOAO BARNETT Rep #: [id number] : 1945 Provider: Dr. Bill Colon MD Age/Sex: 79/M Location: [facility] Status: Signed Intake Vital Signs 04/05/2313:14 Height 5 ft 5 in Intake Visit Reasons: lumbar spine Chief Complaint: lumbar spine Allergies tetanus and diphtheria toxoids Allergy (Verified 11/03/24 13:07) VuzcBgaxirl-HZM-FnX Reductase Inhibitor (Gemojpw-Bgq-Vqa Reductase Inhibitor) Adverse Reaction (Verified 11/03/24 13:07) Other Medications ?Medication ?Instructions ?Recorded ?Confirmed ?Type aspirin 81 mg tablet,delayed 81 mg PO DAILY@0800 heart health 7 11/03/24 History release glimepiride 2 mg tablet 2 mg PO BREAKFAST dm 04/16/17 11/03/24 H istory hydrochlorothiazide 25 mg tablet 25 mg PO DAILY bp 04/16/17 11/03/24 Hist ory metformin 1,000 mg tablet 1,000 mg PO BID dm 04/16/17 11/03/24 His tory tamsulosin 0.4 mg capsule 0.4 mg PO QHS bph 04/16/17 11/03/24 Hist ory cholecalciferol (vitamin D3) 25 25 mcg PO DAILY SUPPLEMENT 04/05/2310/24 History mcg (1,000 unit) capsule zinc acetate 25 mg (zinc) capsule 50 mg PO DAILY SUPPLEMENT 04/05/2311/03 History ascorbic acid (vitamin C) 500 mg 500 mg PO DAILY SUPPLEMENT 09/15/2410/24 History capsule ferrous sulfate 325 mg (65 mg 325 mg PO QDAY SUPPLEMENT 09/15/2411/03 History iron) tablet (Feosol) gabapentin 300 mg capsule 300 mg PO QHS PAIN 10/31/24 11/03/24 His tory lisinopril 40 mg tablet 40 mg PO DAILY HTN 10/31/24 11/03/24 His tory Have you fallen in the past year?: No PFSH Medical History Wears glasses Wears dentures BPH (benign prostatic hyperplasia) Arthritis Prostate disease Low iron History of diverticulitis Heartburn Former smoker Leg cramps History of echocardiogram Hypertrophic scar Carotid stenosis, left Sebaceous cyst Amaurosis fugax of right eye Sciatica Hyperlipidemia Osteoarthritis Hemorrhoid GERD (gastroesophageal reflux disease) HTN (hypertension) Diabetes Carotid stenosis Surgical History History of right-sided carotid endarterectomy History of right-sided carotid endarterectomy (~11/2017) History of umbilical hernia S/P ventral herniorrhaphy S/P inguinal hernia repair S/P colonoscopy Family History Father Diabetes Heart disease Myocardial infarctionMother CAD (coronary artery disease) Arthritis Social History Smoking Status: Former smoker HPI lumbar spine Details: This documentation accurately reflects the service provided and the decisions made by me, Dr. Bill Colon MD 11/03/24 1301. Part of today?s visit was documented by Rosenda ADAMS, acting as scribe. JOAO BARNETT is a 79 year old M here today for pre-op lumbar spine dos: 11/14/24. 09/21/24: JOAO BARNETT is a 79 year old M here today for lumbar spine followup. Patient notes that he continues to have lumbar spine pain. He notes that he has increased pain due to the weather. Patient denies any radiating pain or numbnessor tingling. He had an MRI which is here for pain. Patient denies any recent injection with his most recent in June. He takes an aspirin or tylenol for pain. 09/15/24: JOAO BARNETT is a 79 year old M here today for evaluation of ongoing lumbar spine pain. He has been seeing Dr. Guiterrez in pain management and had an ablation in March and L5-S1 Lumbar steroid injection in June. He reportsthese have no longer been helpful. He complains of low back pain that is worse on the left side. He is not able to stand or walk for long periods. He states heis not able to bend due to the pain. He denies numbness, tingling or radicular pain. He denies new injury to his low back. Patient states that his pain is worse now then it was in 2022. His pain is worse on the left side and radiates down the left leg. He is able to stand for 10-15 minutes before he starts havingpain. Sitting or leaning forward does make the pain better. He does have a feeling of heaviness in his legs bilaterally. Ortho Exam General General: Yes no acute distress Neurologic: Yes alert and Yes oriented x3 Spine SPINE TESTING CERVICAL THORACIC LUMBAR Musculoskeletal Strength 0=absent - 5=normal Details: Examination the back shows midline paraspinal tenderness. Neurologic valuation of lower extremity shows 5 x 5 power in all muscles normal sensations in all dermatomes. There is no hyperreflexia. Coding Level of Care Code Off vis,est,level 4 Diagnoses Spinal stenosis of lumbar region with neurogenic claudication M48.062 Spondylolisthesis, lumbar region M43.16 Time Spent (min) 35 Assessment and Plan Assessment and Plan (1) Spinal stenosis of lumbar region with neurogenic claudication: Status: Acute (2) Spondylolisthesis, lumbar region: Status: Acute Plan Patient is here today for low back pain. Again reviewed previously done x-rays as well as recently done MRI. X-rays show degenerative scoliosis with concavityto the left. Multilevel disc height loss with disc degeneration and vacuum phenomena especially at L2-3. L2-3 and L3-4 show retrolisthesis with mild dynamic instability on flexion-extension views. MRI shows severe L2-3, L3-4 L4-5 central and lateral recess stenosis. L2-3 which shows moderate stenosis last year's MRI has now worsened enough to cause severe central stenosis. Explained to him the imaging findings in detail. I explained to patient that kelseys have stenosis of his lumbar spine which is the cause of of the heaviness feeling in his legs as well as when he leans forward and feels relief. I spoke with patient that the treatment options are physical therapy, injection or surgery. Patient has tried numerous epidural injections without much relief. His neurogenic claudication is worsening with time and is not able to walk distances. He believes his function is declining with time because of the claudication. He would like to proceed with surgical intervention. Surgical options were discussed including decompression versus decompression and fusion. L2-5 anterior and posterior fusion with indirect decompression was discussed in detail. All risk benefits and alternatives were discussed in detail. The risksinclude but are not limited to infection, bleeding, injury to nerves and vessels, ileus, vascular injury, visceral injury, DVT, pulm embolism, pneumonia,atelectasis, cardiopulmonary event, hardware failure, pseudoarthrosis, adjacent segment degeneration, nerve root injury, foot drop, persistent pain, persistent weakness and numbness, need for further surgery. Patient understands and agreesto proceed with surgery. Consent was signed. 11/27/2414 <Electronically signed by Bill Colon MD> Cosigner Signature (if applicable): CC: WINDOW ASSEMBLER-C Trinity Coronado; Dr. Bill Colon MD~ Signed [facility] Work Phone: [phone]) 738-398205-05-2025 Consult note Author Chan Bragg [facility] Note Date/Time November 27, 2024 7:12am [facility] Medical Records Department [address] [place] [address] Pre-Anesthesia Evaluation 11/27/24703 MR#: [id number] Acct: [id number] Name: JOAO BARNETT Rep #:[id number] : 1945 79 From: Chan Bragg MD PCP: DEANNA Franklin Status:ADM IN Y Race: C Location: [place] [address] ASA Classification* ASA Classification ASA Classification: 3 (Pleasant 79 y/o M wiht HTN, GERD, BPH, Former Smoker, CKD3, hx of left carotid endartectomy. ) Assessment & Plan Anesthesia* Anesthesia Assessment Anesthesia Assessment: Discussed sedation and/or anesthesia options, risks, benefits, and alternatives with patient/parents/legal guardian/POA. Questions invited. The patient/parents/legal guardian/POA seems to understand and agrees to proceedwith anesthesia plan. Reviewed the physical assessment, medical history, allergy history and patient home medications list prior to surgery/procedure/anesthetic and documented any changes. Performed airway and anesthesia risk assessments. Anesthesia Type Anesthesia Type: General History Source History Obtained from:: Patient and Chart Anesthesia Focused Assessment* Temperature: 97.5 F Pulse Rate: 88 Blood Pressure: 165/63 Respiratory Rate: 16 Pulse Ox: 99 Oxygen Delivery Method: Room Air Airway Assessment Mouth opens: >3 cm Mallampati Score: II Teeth Condition: Intact Neck Range of motion (ROM): Full ROM Focused Labs Anesthesia Preop lab: CBC WBC 6.4 K/mm3 (4.4-11.0) 11/02/24 12:29 11/02/24 RBC 4.12 M/mm3 (4.6-6.2) L 11/02/24 12:29 11/02/24 Hgb 12.9 g/dL (13.0-16.5) L 11/02/24 12: 5 Hct 39.2 % (40-54) L 11/02/24 12:29 11/02/24 Plt Count 323 K/mm3 (150-450) 11/02/24 12:29 11/02/24 CHEMISTRY Potassium 4.7 mmol/L (3.3-5.1) 11/22/24 12:38 11/22/24 Sodium 143 mmol/L (133-145) 11/22/24 12:38 11/22/24 Magnesium 2.2 mg/dL (1.5-2.2) 11/02/24 12:29 11/02/24 BUN 34 mg/dL (4-19) H 11/22/24 12:38 11/22/24 Creatinine 2.09 mg/dL (0.70-1.20) H 11/22/24 12:38 Glucose 99 mg/dL (70-99) 11/22/24 12:38 11/22/24 POC Glucose 134 mg/dL (70-110) H 12/01/17 08:11 12/01/17 TSH 2.52 uIU/mL (0.358-3.74) 01/19/23 13:33 COAG PT 13.3 SECONDS (11.7-14.9) 06/25/17 13:30 Pre-Assessment Diagnosis/Proposed Procedure Planned Operative Procedure(s): 360 Lumbar Fusion L2-3, L3-4 and L4-5 Anesthesia History 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 When Was Last Pacemaker Check QUESTION #4 FULL TEXT: You/Your Family Experience fever (hyperthermia) with Anesthesia Last Oral Intake Last Oral intake: Last Oral Intake NPO since 03:30 11/27/24 06:00 Meds taken in AM with sips of No 11/27/24 06:00 water? Meds patient instructed to take am of surgery PONV PONV - mobile home park manager: PONV - mobile home park manager Female No 10/31/24 09:58 HX of Motion Sickness No 10/31/24 09:58 HX of N/V After Surgery No 10/31/24 09:58 Non-Smoker Yes 10/31/24 09:58 Duration of Surgery greater Yes 10/31/24 09:58 than 60 minutes Number of Risk Factors 2 10/31/24 09:58 PONV Score Moderate Risk 10/31/24 09:58 Height & Weight Height & Weight: Anesthesia: Height & Weight Height 5 ft 5 in 11/27/24 06:00 Weight: 73.9 kg 11/27/24 06:00 Body Mass Index (BMI) 27.1 11/27/24 06:00 Respiratory Assessment Respiratory Assessment - mobile home park manager: Respiratory Tract Infection Hx - mobile home park manager Hx Respiratory Tract Infection No 10/31/24 09:58 STOP Sleep Apnea STOP Sleep Apnea - mobile home park manager: STOP Sleep Apnea - mobile home park manager Hx Hypertension Yes: CONTROLLED WITH MED 10/31/24 09:58 Hx Sleep Apnea No 10/31/24 09:58 CPAP BIPAP Do you snore loudly (louder No 10/31/24 09:58 than talking or can be heard Do you often feel tired/ No 10/31/24 09:58 fatigued/ sleepy during daytime? Has anyone observed you stop No 10/31/24 09:58 breathing during sleep? STOP Results Negative 10/31/24 09:58 QUESTION #5 FULL TEXT : Do you snore loudly (louder than talking or can be heard through closed doors)? 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 Specify any problems Hx of Preganancy in last 3 N/A 10/31/24 09:58 Months Nurse Filling Out Transfusion NBUCHER 10/31/24 09:58 & Questions: Date: 10/31/24 10/31/24 09:58 Time: 10:00 10/31/24 09:58 Patient unable to answer at this time (ie. confused, unrespo /Reproduction History /Reproductive History - mobile home park manager: /Reproductive Hx- mobile home park manager Hx Now No 10/31/24 09:58 Gestational Age (in weeks): EDC: Hx Hx Para Hx Section SAB No 10/31/24 09:58 Active Medications Active Medications: Current Medications Generic Name Dose Route Start Last Admin Trade Name Freq PRN Reason Stop Dose Admin Acetaminophen 1,000 mg 11/27/24 07:30 11/27/24 06:49 Acetaminophen 500 Mg Tablet PO 11/27/24 07:31 1,000 mg PREOP ONE Administration Cefazolin Sodium 2 gm/ Sodium 110 mls @ 150 mls/hr 11/27/24 07:30 Chloride IV 11/27/24 08:13 INTRAOP ONE Tranexamic Acid 1,000 mg/ 110 mls @ 440 mls/hr 11/27/24 07:30 Sodium Chloride IV 11/27/24 07:44 X1 ONE Tranexamic Acid 1,000 mg/ 110 mls @ 440 mls/hr 11/27/24 07:30 Sodium Chloride IV 11/27/24 07:44 X1 ONE Magnesium Sulfate 1 gm/ 102 mls @ 408 mls/hr 11/27/24 07:30 11/27/24 06:05 Dextrose IV 11/27/24 07:44 408 mls/hr INTRAOP ONE Administration Lactated Ringer's 1,000 mls @ 15 mls/hr 11/27/24 05:45 11/27/24 06:00 IV 15 mls/hr .Q48H LATANYA Administration Insulin Human Lispro 1 - 6 unit 11/27/24 07:30 11/27/24 06:50 Insulin Lispro 100 Unit/Ml Insuln.Pen SC 11/27/24 18:00 1 u Q4H PRN PRN Administration BG>/= 180, SEE PROTOCOL Protocol PFSH Medical History Wears glasses Wears dentures BPH (benign prostatic hyperplasia) Arthritis Prostate disease Low iron History of diverticulitis Heartburn Former smoker Leg cramps History of echocardiogram Hypertrophic scar Carotid stenosis, left Sebaceous cyst Amaurosis fugax of right eye Sciatica Hyperlipidemia Osteoarthritis Hemorrhoid GERD (gastroesophageal reflux disease) HTN (hypertension) Diabetes Carotid stenosis Home Medications ?Medication ?Instructions ?Recorded ?Last Taken ?Type aspirin 81 mg tablet,delayed 81 mg PO DAILY@0800 heart health 04/16/17 11/26/24 09:00 History release glimepiride 2 mg tablet 2 mg PO BREAKFAST dm 7 11/26/24 09:00 History hydrochlorothiazide 25 mg tablet 25 mg PO DAILY bp 11/26/24 09:00 History metformin 1,000 mg tablet 1,000 mg PO BID dm 04/16/17 11/26/24 19:30 History tamsulosin 0.4 mg capsule 0.4 mg PO QHS bph 04/16/17 0 11/26/24 22:30 History cholecalciferol (vitamin D3) 25 25 mcg PO DAILY SUPPLE MENT 04/05/23 11/26/24 09:00 History mcg (1,000 unit) capsule zinc acetate 25 mg (zinc) capsule 50 mg PO DAILY SUPPL EMENT 04/05/23 11/26/24 09:00 History ascorbic acid (vitamin C) 500 mg 500 mg PO DAILY SUPPL EMENT 09/15/24 11/26/24 09:00 History capsule ferrous sulfate 325 mg (65 mg 325 mg PO QDAY SUPPLEMEN T 09/15/24 11/26/24 09:00 History iron) tablet (Feosol) gabapentin 300 mg capsule 300 mg PO QHS PAIN 10/31/24 11/25/24 22:30 History amlodipine 10 mg tablet 10 mg PO DAILY htn 11/27/24 11/26/24 09:00 History Allergy/AdvReac Type Severity Reaction Status Date / Time tetanus and diphtheria Allergy Rash Verified 11/27/24 06:27 toxoids Vmjqjuw-PGW-AjG Reductase AdvReac Other Verified 11/27/24 06:27 Inhibitor (Zuaimnr-Skn-Hjd Reductase Inhibitor) Family History Father Diabetes Heart disease Myocardial infarction Mother CAD (coronary artery disease) Arthritis Surgical History History of right-sided carotid endarterectomy History of right-sided carotid endarterectomy (~11/2017) History of umbilical hernia S/P ventral herniorrhaphy S/P inguinal hernia repair S/P colonoscopy Social History Smoking Status: Former smoker Review of Systems (Anesthesia) ROS Narrative System reviewed and no additional complaints, except as documented. Physical Exam Const alert, oriented x3 and average body habitus Resp normal respiratory effort, normal air movement and clear to auscultation bilaterally Cardio regular rate, regular rhythm, no murmurs and diaphoretic 11/27/24711 <Electronically signed by Chan Bragg MD> Date _ Chan Bragg MD Cosigner Signature: Date CC: ~ Signed [facility] Work Phone: [phone] History and physical note [facility] Medical Records Department [address] [place] [address] History & Physical Exam 11/27/24712 MR#: [id number] Acct: [id number] Name: JOAO BARNETT Rep #:[id number] : 1945 79 From: Bill Colon MD PCP: DEANNA Franklin Status:ADM IN Location: [facility] History and Physical Date of Admission: 11/27/24 MR#: [id number] Acct: [id number] Name: JOAO BARNETT Rep #: [id number] : 1945 Provider: Dr. Bill Colon MD Age/Sex: 79/M Location: [facility] [place] Status: Signed Intake Vital Signs 04/05/2313:14 Height 5 ft 5 in Intake Visit Reasons: lumbar spine Chief Complaint: lumbar spine Allergies tetanus and diphtheria toxoids Allergy (Verified 11/03/24 13:07) RuwePjvqwyn-RVW-UfC Reductase Inhibitor (Nzyefse-Qpd-Eff Reductase Inhibitor) Adverse Reaction (Verified 11/03/24 13:07) Other Medications ?Medication ?Instructions ?Recorded ?Confirmed ?Type aspirin 81 mg tablet,delayed 81 mg PO DAILY@0800 heart health 7 11/03/24 History release glimepiride 2 mg tablet 2 mg PO BREAKFAST dm 04/16/17 11/03/24 H istory hydrochlorothiazide 25 mg tablet 25 mg PO DAILY bp 04/16/17 11/03/24 Hist ory metformin 1,000 mg tablet 1,000 mg PO BID dm 04/16/17 11/03/24 His tory tamsulosin 0.4 mg capsule 0.4 mg PO QHS bph 04/16/17 11/03/24 Hist ory cholecalciferol (vitamin D3) 25 25 mcg PO DAILY SUPPLEMENT 04/05/2310/24 History mcg (1,000 unit) capsule zinc acetate 25 mg (zinc) capsule 50 mg PO DAILY SUPPLEMENT 04/05/2311/03 History ascorbic acid (vitamin C) 500 mg 500 mg PO DAILY SUPPLEMENT 09/15/2410/24 History capsule ferrous sulfate 325 mg (65 mg 325 mg PO QDAY SUPPLEMENT 09/15/2411/03 History iron) tablet (Feosol) gabapentin 300 mg capsule 300 mg PO QHS PAIN 10/31/24 11/03/24 His tory lisinopril 40 mg tablet 40 mg PO DAILY HTN 10/31/24 11/03/24 His tory Have you fallen in the past year?: No PFSH Medical History Wears glasses Wears dentures BPH (benign prostatic hyperplasia) Arthritis Prostate disease Low iron History of diverticulitis Heartburn Former smoker Leg cramps History of echocardiogram Hypertrophic scar Carotid stenosis, left Sebaceous cyst Amaurosis fugax of right eye Sciatica Hyperlipidemia Osteoarthritis Hemorrhoid GERD (gastroesophageal reflux disease) HTN (hypertension) Diabetes Carotid stenosis Surgical History History of right-sided carotid endarterectomy History of right-sided carotid endarterectomy (~11/2017) History of umbilical hernia S/P ventral herniorrhaphy S/P inguinal hernia repair S/P colonoscopy Family History Father Diabetes Heart disease Myocardial infarctionMother CAD (coronary artery disease) Arthritis Social History Smoking Status: Former smoker HPI lumbar spine Details: This documentation accurately reflects the service provided and the decisions made by me, Dr. Bill Colon MD 11/03/24 1301. Part of today?s visit was documented by Rosenda ADAMS, acting as scribe. JOAO BARNETT is a 79 year old M here today for pre-op lumbar spine dos: 11/14/24. 09/21/24: JOAO BARNETT is a 79 year old M here today for lumbar spine followup. Patient notes that he continues to have lumbar spine pain. He notes that he has increased pain due to the weather. Patient denies any radiating pain or numbnessor tingling. He had an MRI which is here for pain. Patient denies any recent injection with his most recent in June. He takes an aspirin or tylenol for pain. 09/15/24: JOAO BARNETT is a 79 year old M here today for evaluation of ongoing lumbar spine pain. Hehas been seeing Dr. Gutierrez in pain management and had an ablation in March and L5-S1 Lumbar steroid injection in June. He reportsthese have no longer been helpful. He complains of low back pain that is worse on the left side. He is not able to stand or walk for long periods. He states heisnot able to bend due to the pain. He denies numbness, tingling or radicular pain. He denies new injury to his low back. Patient states that his pain is worse now then it was in 2022. His pain is worse on the left side and radiates down the left leg. He is able to stand for 10-[address] arts havingpain. Sitting or leaning forward does make the pain better. He does have a feeling of heaviness in his legs bilaterally. Ortho Exam General General: Yes no acute distress Neurologic: Yes alert and Yes oriented x3 Spine SPINE TESTING CERVICAL THORACIC LUMBAR Musculoskeletal Strength 0=absent - 5=normal Details: Examination the back shows midline paraspinal tenderness. Neurologic valuation of lower extremity shows 5 x 5 power in all muscles normal sensations in all dermatomes. There is no hyperreflexia. Coding Level of Care Code Off vis,est,level 4 Diagnoses Spinal stenosis of lumbar region with neurogenic claudication M48.062 Spondylolisthesis, lumbar region M43.16 Time Spent (min) 35 Assessment and Plan Assessment and Plan (1) Spinal stenosis of lumbar region with neurogenic claudication: Status: Acute (2) Spondylolisthesis, lumbar region: Status: Acute Plan Patient is here today for low back pain. Again reviewed previously done x-rays as well as recently done MRI. X-rays show degenerative scoliosis with concavityto the left. Multilevel disc height loss with disc degeneration and vacuum phenomena especially at L2-3. L2-3 and L3-4 show retrolisthesis with mild dynamic instability on flexion-extension views. MRI shows severe L2-3, L3-4 L4-5 central andlateral recess stenosis. L2-3 which shows moderate stenosis last year's MRI has now worsened enoughto cause severe central stenosis. Explained to him the imaging findings in detail. I explained to patient that joby have stenosis of his lumbar spine which is the cause of of the heaviness feeling in his legs as well as when he leans forward and feels relief. I spoke with patient that the treatment options are physical therapy, injection or surgery. Patient has tried numerous epidural injections without much relief. His neurogenic claudication is worsening with time and is not able to walk distances. He believes his function is declining with time because of the claudication. He would like to proceed with surgical intervention. Surgical options were discussed including decompression versus decompression and fusion. L2-5 anterior and posterior fusion with indirect decompression was discussed in detail. All risk benefits and alternatives were discussed in detail. The risksinclude but are not limited to infection, bleeding, injury to nerves and vessels, ileus, vascular injury, visceral injury, DVT, pulm embolism, pneumo manan,atelectasis, cardiopulmonary event, hardware failure, pseudoarthrosis, adjacent segment degeneration, nerve root injury, foot drop, persistent pain, persistent weakness and numbness, need for further surgery. Patient understands and agreesto proceed with surgery. Consent was signed. 11/27/24713 Cosigner Signature (if applicable): CC: DEANNA Coronado; Dr. Bill Colon MD~ Signed [facility]05-05-20[facility] Consult note [facility] Medical Records Department [address] [place] [address] Pre-Anesthesia Evaluation 11/27/24703 MR#: [id number] Acct: [id number] Name: JOAO BARNETT Rep #:[id number] : 1945 79 From: Chan Bragg MD PCP: DEANNA Franklin Status:ADM IN Y Race: C Location: [place] [address] ASA Classification* ASA Classification ASA Classification: 3 (Pleasant 79 y/o M wiht HTN, GERD, BPH, Former Smoker, CKD3, hx of left carotid endartectomy. ) Assessment & Plan Anesthesia* Anesthesia Assessment Anesthesia Assessment: Discussed sedation and/or anesthesia options, risks, benefits, and alternatives with patient/parents/legal guardian/POA. Questions invited. The patient/parents/legal guardian/POA seems to understand and agrees to proceedwith anesthesia plan. Reviewed the physical assessment, medical history, allergy history and patient home medications list prior to surgery/procedure/anesthetic and documented any changes. Performed airway and anesthesia risk assessments. Anesthesia Type Anesthesia Type: General History Source History Obtained from:: Patient and Chart Anesthesia Focused Assessment* Temperature: 97.5 F Pulse Rate: 88 Blood Pressure: 165/63 Respiratory Rate: 16 Pulse Ox: 99 Oxygen Delivery Method: Room Air Airway Assessment Mouth opens: >3 cm Mallampati Score: II Teeth Condition: Intact Neck Range of motion (ROM): Full ROM Focused Labs Anesthesia Preop lab: CBC WBC 6.4 K/mm3 (4.4-11.0) 11/02/24 12:11/02/24 RBC 4.12 M/mm3 (4.6-6.2) L 11/02/24 12:11/02/24 Hgb 12.9 g/dL (13.0-16.5) L 11/02/24 12: 5 Hct 39.2 % (40-54) L 11/02/24 12:11/02/24 Plt Count 323 K/mm3 (150-450) 11/02/24 12:29 11/02/24 CHEMISTRY Potassium 4.7 mmol/L (3.3-5.1) 11/22/24 12:38 11/22/24 Sodium 143 mmol/L (133-145) 11/22/24 12:38 11/22/24 Magnesium 2.2 mg/dL (1.5-2.2) 11/02/24 12:11/02/24 BUN 34 mg/dL (4-19) H 11/22/24 12:38 11/22/24 Creatinine 2.09 mg/dL (0.70-1.20) H 11/22/24 12:38 Glucose 99 mg/dL (70-99) 11/22/24 12:38 11/22/24 POC Glucose 134 mg/dL (70-110) H 12/01/17 08:11 12/01/17 TSH 2.52 uIU/mL (0.358-3.74) 01/19/23 13:33 COAG PT 13.3 SECONDS (11.7-14.9) 06/25/17 13:30 Pre-Assessment Diagnosis/Proposed Procedure Planned Operative Procedure(s): 360 Lumbar Fusion L2-3, L3-4 and L4-5 Anesthesia History 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 When Was Last Pacemaker Check QUESTION #4 FULL TEXT: You/Your Family Experience fever (hyperthermia) with Anesthesia Last Oral Intake Last Oral intake: Last Oral Intake NPO since 03:30 11/27/24 06:00 Meds taken in AM with sips of No 11/27/24 06:00 water? Meds patient instructed to take am of surgery PONV PONV - mobile home park manager: PONV - mobile home park manager Female No 10/31/24 09:58 HX of Motion Sickness No 10/31/24 09:58 HX of N/V After Surgery No 10/31/24 09:58 Non-Smoker Yes 10/31/24 09:58 Duration of Surgery greater Yes 10/31/24 09:58 than 60 minutes Number of Risk Factors 2 10/31/24 09:58 PONV Score Moderate Risk 10/31/24 09:58 Height & Weight Height & Weight: Anesthesia: Height & Weight Height 5 ft 5 in 11/27/24 06:00 Weight: 73.9 kg 11/27/24 06:00 Body Mass Index (BMI) 27.1 11/27/24 06:00 Respiratory Assessment Respiratory Assessment - mobile home park manager: Respiratory Tract Infection Hx - mobile home park manager Hx Respiratory Tract Infection No 10/31/24 09:58 STOP Sleep Apnea STOP Sleep Apnea - mobile home park manager: STOP Sleep Apnea - mobile home park manager Hx Hypertension Yes: CONTROLLED WITH MED 10/31/24 09:58 Hx Sleep Apnea No 10/31/24 09:58 CPAP BIPAP Do you snore loudly (louder No 10/31/24 09:58 than talking or can be heard Do you often feel tired/ No 10/31/24 09:58 fatigued/ sleepy during daytime? Has anyone observed you stop No 10/31/24 09:58 breathing during sleep? STOP Results Negative 10/31/24 09:58 QUESTION #5 FULL TEXT : Do you snore loudly (louder than talking or can be heard through closeddoors)? 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 Specify any problems Hx of Preganancy in last 3 N/A 10/31/24 09:58 Months Nurse Filling Out Transfusion NBUCHER 10/31/24 09:58 & Questions: Date: 10/31/24 10/31/24 09:58 Time: 10:00 10/31/24 09:58 Patient unable to answer at this time (ie. confused, unrespo /Reproduction History /Reproductive History - mobile home park manager: /Reproductive Hx- mobile home park manager Hx Now No 10/31/24 09:58 Gestational Age (in weeks): EDC: Hx Hx Para Hx Section SAB No 10/31/24 09:58 Active Medications Active Medications: Current Medications Generic Name Dose Route Start Last Admin Trade Name Freq PRN Reason Stop Dose Admin Acetaminophen 1,000 mg 11/27/24 07:30 11/27/24 06:49 Acetaminophen 500 Mg Tablet PO 11/27/24 07:31 1,000 mg PREOP ONE Administration Cefazolin Sodium 2 gm/ Sodium 110 mls @ 150 mls/hr 11/27/24 07:30 Chloride IV 11/27/24 08:13 INTRAOP ONE Tranexamic Acid 1,000 mg/ 110 mls @ 440 mls/hr 11/27/24 07:30 Sodium Chloride IV 11/27/24 07:44 X1 ONE Tranexamic Acid 1,000 mg/ 110 mls @ 440 mls/hr 11/27/24 07:30 Sodium Chloride IV 11/27/24 07:44 X1 ONE Magnesium Sulfate 1 gm/ 102 mls @ 408 mls/hr 11/27/24 07:30 11/27/24 06:05 Dextrose IV 11/27/24 07:44 408 mls/hr INTRAOP ONE Administration Lactated Ringer's 1,000 mls @ 15 mls/hr 11/27/24 05:45 11/27/24 06:00 IV 15 mls/hr .Q48H LATANYA Administration Insulin Human Lispro 1 - 6 unit 11/27/24 07:30 11/27/24 06:50 Insulin Lispro 100 Unit/Ml Insuln.Pen SC 11/27/24 18:00 1 u Q4H PRN PRN Administration BG>/= 180, SEE PROTOCOL Protocol PFSH Medical History Wears glasses Wears dentures BPH (benign prostatic hyperplasia) Arthritis Prostate disease Low iron History of diverticulitis Heartburn Former smoker Leg cramps History of echocardiogram Hypertrophic scar Carotid stenosis, left Sebaceous cyst Amaurosis fugax of right eye Sciatica Hyperlipidemia Osteoarthritis Hemorrhoid GERD (gastroesophageal reflux disease) HTN (hypertension) Diabetes Carotid stenosis Home Medications ?Medication ?Instructions ?Recorded ?Last Taken ?Type aspirin 81 mg tablet,delayed 81 mg PO DAILY@0800 heart health 04/16/17 11/26/24 09:00 History release glimepiride 2 mg tablet 2 mg PO BREAKFAST dm 7 11/26/24 09:00 History hydrochlorothiazide 25 mg tablet 25 mg PO DAILY bp 11/26/24 09:00 History metformin 1,000 mg tablet 1,000 mg PO BID dm 04/16/17 11/26/24 19:30 History tamsulosin 0.4 mg capsule 0.4 mg PO QHS bph 04/16/17 0 11/26/24 22:30 History cholecalciferol (vitamin D3) 25 25 mcg PO DAILY SUPPLE MENT 04/05/23 11/26/24 09:00 History mcg (1,000 unit) capsule zinc acetate 25 mg (zinc) capsule 50 mg PO DAILY SUPPL EMENT 04/05/23 11/26/24 09:00 History ascorbic acid (vitamin C) 500 mg 500 mg PO DAILY SUPPL EMENT 09/15/24 11/26/24 09:00 History capsule ferrous sulfate 325 mg (65 mg 325 mg PO QDAY SUPPLEMEN T 09/15/24 11/26/24 09:00 History iron) tablet (Feosol) gabapentin 300 mg capsule 300 mg PO QHS PAIN 04/08/25 05/03/25 22:30 History amlodipine 10 mg tablet 10 mg PO DAILY htn 11/27/24 11/26/24 09:00 History Allergy/AdvReac Type Severity Reaction Status Date / Time tetanus and diphtheria Allergy Rash Verified 11/27/24 06:27 toxoids Ilzuyqr-BAU-TnI Reductase AdvReac Other Verified 11/27/24 06:27 Inhibitor (Xnedwqv-Nlc-Rjr Reductase Inhibitor) Family History Father Diabetes Heart disease Myocardial infarction Mother CAD (coronary artery disease) Arthritis Surgical History History of right-sided carotid endarterectomy History of right-sided carotid endarterectomy (~11/2017) History of umbilical hernia S/P ventral herniorrhaphy S/P inguinal hernia repair S/P colonoscopy Social History Smoking Status: Former smoker Review of Systems (Anesthesia) ROS Narrative System reviewed and no additional complaints, except as documented. Physical Exam Const alert, oriented x3 and average body habitus Resp normal respiratory effort, normal air movement and clear to auscultation bilaterally Cardio regular rate, regular rhythm, no murmurs and diaphoretic 11/27/24 0712 > Date _ Chan Bragg MD Cosigner Signature: Date CC: ~ Signed [facility]04-11-2025 Evaluation note* Diagnosis Onset Date Resolution Status Admit Date Spinal stenosis of lumbar re gion with neurogenic claudication resolved Apr 2024 12:43pm Spondylolisthesis, lumbar region res olved November 03, 2024 12:43pm Anemia acute November 27, 2024 12:54pm Lumbar spinal stenosis resolved Ma yanet 2024 12:54pm Spinal stenosis of lumbar re gion with neurogenic claudication resolved November 27, 2024 12:54pm Spondylolisthesis, lumbar region res olved November 27, 2024 12:54pm Hyperglycemia deleted November 27 12:54pm Leukocytosis deleted November 27 12:54pm Status post lumbar spinal fusion del eted November 27, 2024 12:54pm Colon distention resolved December 01, 2024 10:00pm Pneumatosis coli resolved December 01, 2024 10:00pm Free intraperitoneal air inactive December 01, 2024 10:00pm BPH (benign prostatic hyperplasia) acute December 26, 2024 7:37pm Debility acute December 26, 2024 7:37pm Essential (primary) hypertension acu te December 26, 2024 7:37pm Severe aortic stenosis acute 2024 7:37pm Urinary retention acute December 7:37pm Acute HFrEF (heart failure w ith reduced ejection fraction) resolved December 26, 2024 7:37pm Acute renal failure on dialysis reso lved December 26, 2024 7:37pm Acute respiratory failure wi th hypoxia resolved December 26, 2024 7:37pm Dysphagia resolved December 26, 2024 7:37pm NSTEMI (non-ST elevated myocardial infarction) resolved December 26, 2024 7:37pm Perforation of sigmoid colon due to diverticulitis resolved December 26, 2024 7:37pm Sepsis resolved December 26, 2024 7:37pm Diabetic polyneuropathy inactive Leo huerta 2024 7:37pm Iron deficiency anemia inactive Kami rosales 2024 7:37pm Diabetes deleted December 26, 2024 7:37pm Muscle spasm deleted December 26 7:37pm History of diabetes mellitus acute January 03, 2025 12:44pm CKD (chronic kidney disease) , stage IV chronic January 03, 2025 12:44pm Hyperkalemia ruled-out January 03, 025 12:44pm Acute hyperkalemia inactive December 242024 12:44pm Chronic kidney disease deleted Kami rosales 2024 12:44pm History of bowel resection deleted January 03, 2025 12:44pm History of hypertension deleted [facility] 2024 12:44pm Postoperative intra-abdomina l abscess deleted January 03, 2025 12:44pm PRISCILA (acute kidney injury) acute January 11, 2025 2:25pm Anemia acute January 11 2:25pm BPH (benign prostatic hyperplasia) acute January 11, 2025 2:25pm Cardiomyopathy acute January 11, 2025 2:25pm Carotid stenosis, left acute Ju ne 2024 2:25pm Cognitive dysfunction acute Aron e 2024 2:25pm Cough acute January 11 2:25pm Debility acute January 11 2:25pm Depression acute January 11 2:25pm Diverticulosis acute January 11, 2025 2:25pm Dysphagia, oropharyngeal acute January 11, 2025 2:25pm Essential (primary) hypertension acu te January 11, 2025 2:25pm H/O drainage of abscess acute [facility] 2024 2:25pm Heme positive stool acute January 11, 2025 2:25pm High output ileostomy acute Dec 2:25pm History of diabetes mellitus acute January 11, 2025 2:25pm History of ileostomy acute January 11, 2025 2:25pm History of lumbar fusion acute January 11, 2025 2:25pm History of right hemicolectomy acute January 11, 2025 2:25pm History of right-sided carot id endarterectomy acute January 11, 2025 2:25pm Hyperlipidemia acute January 11, 2025 2:25pm Hyperphosphatemia acute January 112024 2:25pm Hypomagnesemia acute January 11, 2025 2:25pm Hyponatremia acute January 11, 2 025 2:25pm Left atrial enlargement acute [facility] 2024 2:25pm Left bundle branch block acute January 11, 2025 2:25pm Metabolic acidosis acute December 242024 2:25pm Mild pulmonary hypertension acute January 11, 2025 2:25pm Myocardial infarction due to demand ischemia acute January 11, 2025 2:25pm Orthostatic hypotension acute [facility] 2024 2:25pm Other severe protein-calorie malnutrition acute January 11, 2025 2:25pm Postoperative abscess acute Aron e 2024 2:25pm Severe aortic stenosis acute Ju ne 2024 2:25pm Urinary retention acute Awa 19 th, 2025 2:25pm CKD (chronic kidney disease) , stage IV chronic January 11, 2025 2:25pm Achilles tendinitis of right lower extremity suspected January 11, 2025 2:25pm COPD (chronic obstructive pulmonary disease) suspected January 11 2:25pm Acute renal failure superimp osed on stage 4 chronic kidney disease resolved January 11, 2025 2:25pm Acute right ankle pain resolved Ju ne 2024 2:25pm Candidiasis, intertrigo resolved J une 2024 2:25pm History of partial colectomy deleted January 11, 2025 2:25pm Status post lumbar spinal fusion del eted January 11, 2025 2:25pm [facility] Work Phone: 1(762) 193-820404-11-2025 Evaluation note* Diagnosis Onset Date Resolution Status Admit Date Spinal stenosis of lumbar re gion with neurogenic claudication resolved Oct 12:43pm Spondylolisthesis, lumbar region res olved November 03, 2024 12:43pm Anemia acute November 27, 2024 12:54pm Lumbar spinal stenosis resolved Ma y 2024 12:54pm Spinal stenosis of lumbar re gion with neurogenic claudication resolved November 27, 2024 12:54pm Spondylolisthesis, lumbar region res olved November 27, 2024 12:54pm Hyperglycemia deleted November 27 12:54pm Leukocytosis deleted November 27 12:54pm Status post lumbar spinal fusion del eted November 27, 2024 12:54pm Colon distention resolved December 01, 2024 10:00pm Pneumatosis coli resolved December 01, 2024 10:00pm Free intraperitoneal air inactive December 01, 2024 10:00pm Debility acute December 26, 2024 7:37pm Severe aortic stenosis acute Ju ne 2024 7:37pm Urinary retention acute December 7:37pm Acute HFrEF (heart failure w ith reduced ejection fraction) resolved December 26, 2024 7:37pm Acute renal failure on dialysis reso lved December 26, 2024 7:37pm Acute respiratory failure wi th hypoxia resolved December 26, 2024 7:37pm Dysphagia resolved December 26, 2024 7:37pm NSTEMI (non-ST elevated myocardial infarction) resolved December 26, 2024 7:37pm Perforation of sigmoid colon due to diverticulitis resolved December 26, 2024 7:37pm Sepsis resolved December 26, 2024 7:37pm BPH (benign prostatic hyperplasia) inactive December 26, 2024 7:37pm Diabetic polyneuropathy inactive [facility] 2024 7:37pm Essential (primary) hypertension christine ctive December 26, 2024 7:37pm Iron deficiency anemia inactive [facility] 2024 7:37pm Diabetes deleted December 26, 2024 7:37pm Muscle spasm deleted December 26 7:37pm Hyperkalemia ruled-out January 03 12:44pm Acute hyperkalemia inactive December 242024 12:44pm CKD (chronic kidney disease) , stage IV inactive January 03, 2025 12:44pm History of diabetes mellitus inactiv e January 03, 2025 12:44pm Chronic kidney disease deleted [facility] 2024 12:44pm History of bowel resection deleted January 03, 2025 12:44pm History of hypertension deleted [facility] 2024 12:44pm Postoperative intra-abdomina l abscess deleted January 03, 2025 12:44pm PRISCILA (acute kidney injury) acute January 11, 2025 2:25pm Anemia acute January 11 2:25pm Debility acute January 11 2:25pm Depression acute January 11 2:25pm Heme positive stool acute January 11, 2025 2:25pm High output ileostomy acute Aron e 2024 2:25pm Hyperphosphatemia acute January 112024 2:25pm Hypomagnesemia acute January 11, 2025 2:25pm Hyponatremia acute January 11, 025 2:25pm Severe aortic stenosis acute [facility] 2024 2:25pm Urinary retention acute January 112024 2:25pm COPD (chronic obstructive pulmonary disease) suspected January 11 2:25pm Achilles tendinitis of right lower extremity resolved January 11, 2025 2:25pm Acute renal failure superimp osed on stage 4 chronic kidney disease resolved January 11, 2025 2:25pm Acute right ankle pain resolved [facility] 2024 2:25pm Candidiasis, intertrigo resolved [facility] 2024 2:25pm Cough resolved January 11 2:25pm Metabolic acidosis resolved December 242024 2:25pm Orthostatic hypotension resolved [facility] 2024 2:25pm Postoperative abscess resolved Dec 2:25pm BPH (benign prostatic hyperplasia) inactive January 11, 2025 2:25pm Cardiomyopathy inactive January 11, 2025 2:25pm Carotid stenosis, left inactive Ju vt 2024 2:25pm CKD (chronic kidney disease) , stage IV inactive January 11, 2025 2:25pm Cognitive dysfunction inactive Aron e 2024 2:25pm Diverticulosis inactive January 11, 2025 2:25pm Dysphagia, oropharyngeal inactive January 11, 2025 2:25pm Essential (primary) hypertension christine ctive January 11, 2025 2:25pm H/O drainage of abscess inactive [facility] 2024 2:25pm History of diabetes mellitus inactiv e January 11, 2025 2:25pm History of ileostomy inactive January 11, 2025 2:25pm History of lumbar fusion inactive January 11, 2025 2:25pm History of right hemicolectomy inact jacob January 11, 2025 2:25pm History of right-sided carot id endarterectomy inactive January 11, 2025 2:25pm Hyperlipidemia inactive January 11, 2025 2:25pm Left atrial enlargement inactive [facility] 2024 2:25pm Left bundle branch block inactive January 11, 2025 2:25pm Mild pulmonary hypertension inactive January 11, 2025 2:25pm Myocardial infarction due to demand ischemia inactive January 11, 2025 2:25pm Other severe protein-calorie malnutrition inactive January 11, 2025 2:25pm History of partial colectomy deleted January 11, 2025 2:25pm Status post lumbar spinal fusion del eted January 11, 2025 2:25pm [facility] Work Phone: 1(224) 171-171902-21-2025 Evaluation note* Diagnosis Onset Date Resolution Status Admit Date Spinal stenosis of lumbar region with neurogenic claudication acute September 15, 2 025 1:22pm Spondylolisthesis, lumbar region acute September 15, 2 025 1:22pm Spinal stenosis of lumbar region with neurogenic claudication acute September 21, 2 025 10:44am Spondylolisthesis, lumbar region acute February 27th, 2 025 10:44am [facility] Work Phone: 1(122) 167-846002-21-2025 Evaluation note* Diagnosis Onset Date Resolution Status Admit Date Spinal stenosis of lumbar region with neurogenic claudication acute September 15, 2 025 1:22pm Spondylolisthesis, lumbar region acute September 15, 2 025 1:22pm Spinal stenosis of lumbar region with neurogenic claudication acute September 21, 025 10:44am Spondylolisthesis, lumbar region acute September 21, 025 10:44am Spinal stenosis of lumbar region with neurogenic claudication acute November 03, 2024 12:43pm Spondylolisthesis, lumbar region acute November 03, 2024 12:43pm [facility] Work Phone: 1(378) 652-611802-21-2025 Evaluation note* Diagnosis Onset Date Resolution Status Admit Date Spinal stenosis of lumbar region with neurogenic claudication acute September 15, 2 025 1:22pm Spondylolisthesis, lumbar region acute September 15, 025 1:22pm Spinal stenosis of lumbar region with neurogenic claudication acute September 21, 025 10:44am Spondylolisthesis, lumbar region acute September 21, 025 10:44am Spinal stenosis of lumbar region with neurogenic claudication acute November 03, 2024 12:43pm Spondylolisthesis, lumbar region acute November 03, 2024 12:43pm Anemia acute November 27, 2024 5:20am Hyperglycemia acute November 27 5:20am Leukocytosis acute November 27 5:20am Lumbar spinal stenosis acute 2024 5:20am Spinal stenosis of lumbar region with neurogenic claudication acute November 27, 2024 5: 20am Spondylolisthesis, lumbar region acute November 27, 2024 5: 20am Status post lumbar spinal fusion acute November 27, 2024 5: 20am [facility] Work Phone: 1(836) 372-360902-21-2025 Evaluation note* Diagnosis Onset Date Resolution Status Admit Date Spinal stenosis of lumbar region with neurogenic claudication resolved September 15, 2 025 1:22pm Spondylolisthesis, lumbar region resolved September 15, 2 025 1:22pm Spinal stenosis of lumbar region with neurogenic claudication resolved September 21, 2 025 10:44am Spondylolisthesis, lumbar region resolved September 21, 2 025 10:44am Spinal stenosis of lumbar region with neurogenic claudication resolved November 03, 2024 12:43pm Spondylolisthesis, lumbar region resolved November 03, 2024 12:43pm Anemia acute November 27, 2024 12:54pm Hyperglycemia acute November 27 12:54pm Leukocytosis acute November 27 12:54pm Status post lumbar spinal fusion acute November 27, 2024 12 :54pm Lumbar spinal stenosis resolved Ma y 2024 12:54pm Spinal stenosis of lumbar region with neurogenic claudication resolved November 27, 2024 12 :54pm Spondylolisthesis, lumbar region resolved November 27, 2024 12 :54pm Colon distention acute December 01, 2024 10:00pm Free intraperitoneal air acute December 01, 2024 10:00pm Pneumatosis coli acute December 01, 2024 10:00pm [facility] Work Phone: 1(137) 498-648602-21-2025 Evaluation note* Diagnosis Onset Date Resolution Status Admit Date Spinal stenosis of lumbar region with neurogenic claudication resolved September 15, 2 025 1:22pm Spondylolisthesis, lumbar region resolved September 15, 2 025 1:22pm Spinal stenosis of lumbar region with neurogenic claudication resolved September 21, 2 025 10:44am Spondylolisthesis, lumbar region resolved September 21, 2 025 10:44am Spinal stenosis of lumbar region with neurogenic claudication resolved November 03, 2024 12:43pm Spondylolisthesis, lumbar region resolved November 03, 2024 12:43pm Anemia acute November 27, 2024 12:54pm Hyperglycemia acute November 27 12:54pm Leukocytosis acute November 27 12:54pm Status post lumbar spinal fusion acute November 27, 2024 12 :54pm Lumbar spinal stenosis resolved Ma y 2024 12:54pm Spinal stenosis of lumbar region with neurogenic claudication resolved November 27, 2024 12 :54pm Spondylolisthesis, lumbar region resolved November 27, 2024 12 :54pm Colon distention acute December 01, 2024 10:00pm Free intraperitoneal air acute December 01, 2024 10:00pm Pneumatosis coli acute December 01, 2024 10:00pm Acute HFrEF (heart failure w ith reduced ejection fraction) acute December 26, 2024 7:37pm Acute renal failure on dialysis acut e December 26, 2024 7:37pm Acute respiratory failure wi th hypoxia acute December 26, 2024 7 :37pm BPH (benign prostatic hyperplasia) acute December 26, 2024 7 :37pm Debility acute December 26, 2024 7:37pm Diabetes acute December 26, 2024 7:37pm Diabetic polyneuropathy acute J 2024 7:37pm Dysphagia acute December 26, 2024 7:37pm Essential (primary) hypertension acute December 26, 2024 7 :37pm Iron deficiency anemia acute 2024 7:37pm Muscle spasm acute December 26 7:37pm NSTEMI (non-ST elevated myocardial infarction) acute December 26, 2024 7:37pm Perforation of sigmoid colon due to diverticulitis acute December 26, 2024 7:37pm Sepsis acute December 26, 2024 7:37pm Severe aortic stenosis acute 2024 7:37pm Urinary retention acute December 7:37pm [facility] Work Phone: 1(106) 394-657302-21-2025 Evaluation note* Diagnosis Onset Date Resolution Status Admit Date Spinal stenosis of lumbar region with neurogenic claudication resolved September 15, 2 025 1:22pm Spondylolisthesis, lumbar region resolved September 15, 2 025 1:22pm Spinal stenosis of lumbar region with neurogenic claudication resolved September 21, 2 025 10:44am Spondylolisthesis, lumbar region resolved September 21, 2 025 10:44am Spinal stenosis of lumbar region with neurogenic claudication resolved November 03, 2024 12:43pm Spondylolisthesis, lumbar region resolved November 03, 2024 12:43pm Anemia acute November 27, 2024 12:54pm Hyperglycemia acute November 27 12:54pm Leukocytosis acute November 27 12:54pm Status post lumbar spinal fusion acute November 27, 2024 12 :54pm Lumbar spinal stenosis resolved Ma 2024 12:54pm Spinal stenosis of lumbar region with neurogenic claudication resolved November 27, 2024 12 :54pm Spondylolisthesis, lumbar region resolved November 27, 2024 12 :54pm Colon distention acute December 01, 2024 10:00pm Free intraperitoneal air acute December 01, 2024 10:00pm Pneumatosis coli acute December 01, 2024 10:00pm Acute HFrEF (heart failure w ith reduced ejection fraction) acute December 26, 2024 7:37pm Acute renal failure on dialysis acut e December 26, 2024 7:37pm Acute respiratory failure wi th hypoxia acute December 26, 2024 7 :37pm BPH (benign prostatic hyperplasia) acute December 26, 2024 7 :37pm Debility acute December 26, 2024 7:37pm Diabetes acute December 26, 2024 7:37pm Diabetic polyneuropathy acute [facility] 2024 7:37pm Dysphagia acute December 26, 2024 7:37pm Essential (primary) hypertension acute December 26, 2024 7 :37pm Iron deficiency anemia acute [facility] 2024 7:37pm Muscle spasm acute December 26 7:37pm NSTEMI (non-ST elevated myocardial infarction) acute December 26, 2024 7:37pm Perforation of sigmoid colon due to diverticulitis acute December 26, 2024 7:37pm Sepsis acute December 26, 2024 7:37pm Severe aortic stenosis acute [facility] 2024 7:37pm Urinary retention acute December 7:37pm Acute hyperkalemia acute December 242024 12:44pm History of bowel resection acute January 03, 2025 12:44pm History of diabetes mellitus acute January 03, 2025 12:44pm History of hypertension acute [facility] 2024 12:44pm Chronic kidney disease chronic [facility] 2024 12:44pm [facility] Work Phone: 1(637) 814-861102-21-2025 Evaluation note* Diagnosis Onset Date Resolution Status Admit Date Spinal stenosis of lumbar region with neurogenic claudication resolved September 15 1:22pm Spondylolisthesis, lumbar region resolved September 15 1:22pm Spinal stenosis of lumbar region with neurogenic claudication resolved September 21 10:44am Spondylolisthesis, lumbar region resolved September 21 025 10:44am Spinal stenosis of lumbar region with neurogenic claudication resolved November 03, 2024 12:43pm Spondylolisthesis, lumbar region resolved November 03, 2024 12:43pm Anemia acute November 27, 2024 12:54pm Hyperglycemia acute November 27 12:54pm Leukocytosis acute November 27 12:54pm Status post lumbar spinal fusion acute November 27, 2024 12 :54pm Lumbar spinal stenosis resolved Ma y 2024 12:54pm Spinal stenosis of lumbar region with neurogenic claudication resolved November 27, 2024 12 :54pm Spondylolisthesis, lumbar region resolved November 27, 2024 12 :54pm Colon distention acute December 01, 2024 10:00pm Free intraperitoneal air acute December 01, 2024 10:00pm Pneumatosis coli acute December 01, 2024 10:00pm Acute HFrEF (heart failure w ith reduced ejection fraction) acute December 26, 2024 7:37pm Acute renal failure on dialysis acut e December 26, 2024 7:37pm Acute respiratory failure wi th hypoxia acute December 26, 2024 7 :37pm BPH (benign prostatic hyperplasia) acute December 26, 2024 7 :37pm Debility acute December 26, 2024 7:37pm Diabetes acute December 26, 2024 7:37pm Diabetic polyneuropathy acute [facility] 2024 7:37pm Dysphagia acute December 26, 2024 7:37pm Essential (primary) hypertension acute December 26, 2024 7 :37pm Iron deficiency anemia acute [facility] 2024 7:37pm Muscle spasm acute December 26 7:37pm NSTEMI (non-ST elevated myocardial infarction) acute December 26, 2024 7:37pm Perforation of sigmoid colon due to diverticulitis acute December 26, 2024 7:37pm Sepsis acute December 26, 2024 7:37pm Severe aortic stenosis acute [facility] 2024 7:37pm Urinary retention acute December 7:37pm Acute hyperkalemia acute December 242024 12:44pm History of bowel resection acute January 03, 2025 12:44pm History of diabetes mellitus acute January 03, 2025 12:44pm History of hypertension acute J une 2024 12:44pm Hyperkalemia acute January 03, 2 025 12:44pm Postoperative intra-abdomina l abscess acute January 03, 2025 12:44pm Chronic kidney disease chronic Ju vt 2024 12:44pm CKD (chronic kidney disease) , stage IV chronic January 03, 2025 12:44pm [facility] Work Phone: 1([phone]) 688-863003-04-2024 Discharge summary Author Josafat Mayorga [facility] September 27, 2023 1:31pm Note Date/Time September 27, 2023 1:27 pm [facility] Physical Therapy [facility] [address] [place] [address] / REHABILITATION SERVICES DISCHARGE SUMMARY MR#: [id number] Acct: [id number] Name: JOAO BARNETT Rep #: [id number] : 1945 78 From: Cert. WANDY NgoT, OCS Referring Dr.: Dr. Mukesh Gutierrez MD Status : REG RCR Insurance: MEDICARE PART A B [facility] Discharge Summary D/C summary: It has been my pleasure to treat JOAO BARNETT referred by Dr. Mukesh Gutierrez MD, with the diagnosis of PAIN IN LEFT Knee for a total of 9 visit(s). Discharge Date: Please see the following information for a summary of their discharge status. Subjective Subjective: Doing well ready for d/c Plan to get injection for back and knee Plan to go golfing Pain Left Knee: Pain Intensity (Out of 10): 0 Overall Improvement % Improvement: 75 Objective Objective/Function: POSTURE: mild forward posture NEURO: denies paresthesia/tingling PALPATION : absent FLEXABLITY: mild hamstring tightness GAIT: reciprocal pattern no limping AROM: 0-130 degrees supine flexion MMT: ( peak force) quads 49.1 ,hamstrings 39.1 ,hip [id number] ,hip abd 28.3 STAIRS: alternating with rails Goals Goal 1:: Patient to be I with HEP for knee Goal Progress: Goal Met Goal 2:: Patient to improve peak force quads/hams/hip by 5-10 # to improve strength and gait Goal Progress: Goal Met Goal 3:: Patient to demonstrate 50% improvement with decrease pain and improved function. Goal Progress: Goal Met Goal 4:: Patient to improve LFES score by 5 points to improve QOL Goal Progress: Goal Met Goal 5:: Patient to normalize gait with antalgic gait Plan Plan: D/C D/C Information d/c sentence: If there are questions or concerns regarding this patient's physical therapy, please feel free to call me at [phone]. Thank you for the referral of thispatient. Sincerely, Josafat Mayorga PT, Cert T, OCS Balance/Gait/Functional tests Balance/Special Test Scores Lower Extremity Functional Score: 66 Improvement % Improvement: 75 <Electronically signed by Josafat Mayorga PT Cert. GENTRY, DANIEL> 09/27/23 1331 CC: DEANNA [place]; Dr. Mukesh Gutierrez MD ~ [facility] Signed [facility] Work Phone: 1(451) 179-413211-22-2023 Discharge summary Author Sean Moulton [facility] June 16, 2023 2:06pm Note Date/Time June 16, 2023 2:06pm [facility] [address] [place] [address] / REHABILITATION SERVICES DISCHARGE SUMMARY MR#: [id number] Acct: [id number] Name: JOAO BARNETT Rep #: [id number] : 1945 77 From: Sean Moulton PT, ATC Referring Dr.: Dr. Mukesh Gutierrez MD Status : REG RCR Insurance: MEDICARE PART A B [facility] Discharge Summary D/C summary: It has been my pleasure to treat JOAO BARNETT referred by Dr. Mukesh Gutierrez MD, with the diagnosis of Spinal Stenosis for a total of 5 visit(s). Discharge Date: Please see the following information for a summary of their discharge status. Subjective Subjective: My pain has increased since yesterday. I am not getting any better Pain L LB: Pain Intensity (Out of 10): 5 Overall Improvement % Improvement: 10 Objective Objective/Function: LBP ranges from 5-9/10 No change in LE radiculopathy Pt is I with HEP Goals Goal 1:: Patient will report participation in home exercise program activities aminimum of 5 days per week, as adjunct to skilled physical therapy intervention in preparation for independent home management upon discharge. Goal Progress: Goal Met Goal 2:: Patient will report an increase of 9 points on the LEFS to show minimalclinical significant difference on patients functional outcome measure. Goal Progress: Progressing Goal 3:: Patient will maintain proper posture t/o tx session to demo increased core s/s Goal Progress: Not observed Goal 4:: Patient will report no radicular s/s down the left leg for 1 week to ease ADL's Goal Progress: Not Progressing Plan Plan: Discontinue to HEP D/C Information d/c sentence: If there are questions or concerns regarding this patient's physical therapy, please feel free to call me at [phone]. Thank you for the referral of thispatient. Sincerely, Sean Moulton, PT, ATC Balance/Gait/Functional tests Balance/Special Test Scores Lower Extremity Functional Score: 35 Improvement % Improvement: 10 <Electronically signed by Sean Moulton PT, ATC> 06/16/23 1406 CC: RACHELE-C [facility] [place]; Dr. Mukesh Gutierrez MD ~ [facility] Signed [facility] Work Phone: Evaluation noteNo assessment information available [facility] Work Phone: evaluation note* Diagnosis Onset Date Resolution Status Carotid stenosis, left acute [facility] Work Phone: Evaluation note* Diagnosis Onset Date Resolution Status Carotid stenosis, left acute Lumbar spinal stenosis acute [facility] Work Phone: Evaluation note* Diagnosis Onset Date Resolution Status Lumbar spinal stenosis acute Lumbar spinal stenosis [facility] Work Phone: Evaluation note* Diagnosis Retention of urine- Primary Retention of urine, unspecified documented in [facility] Retention of urine- Primary Retention of urine, unspecified documented in this encounter [facility] Author Zahira Smith [facility] Note Date/Time December 02, 2024 2:36a m [facility] Medical Records Department [address] [place] [address] History & Physical Exam 12/02/24 0131 MR#: [id number] Acct: [id number] Name: JOAO BARNETT Rep #:[id number] : 1945 79 From: Zahira Churchill PCP: ROBERTO FranklinC Status:DEP ER Location: ED HPI - General General Date of Service: 12/02/24 Chief Complaint: Acute onset abdominal discomfort HPI Narrative JOAO BARNETT, is a 79 M who presents to [facility] in the company of both his sons and his due to progressive abdominal distention, progressive abdominal pain, and inability to have a bowel movement for the past 6 days. Patient reports that he underwent back surgery with Dr. Colon on 11/27/2024 and said progressive abdominal discomfort ever since. His family reports that he has passed some flatus but he has had progressive bloating and chills which started yesterday. Patient and his family note that the absence of bowel activity is highly unusual as patient normally experiences bowel movements twice daily every day. Patient's ER workup notable for CBC with mild leukocytosis of 12.1. More significantly patient underwent CT imaging of the abdomen pelvis with intravenous contrast. 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 Additionally they noted the presence of some free air due to microperforationsalong the sigmoid colon. Patient's colon was also notably distended with a diameter just over 6 cm along the ascending segment. Patient's past abdominal surgical history includes left inguinal hernia repair with mesh and ventral hernia repair by Dr. Guillaume Hancock remotely. [facility] Medical History CKD (chronic kidney disease), stage IV Wears glasses Wears dentures BPH (benign prostatic hyperplasia) Arthritis Prostate disease Low iron History of diverticulitis Heartburn Former smoker Leg cramps History of echocardiogram Hypertrophic scar Carotid stenosis, left Sebaceous cyst Amaurosis fugax of right eye Sciatica Hyperlipidemia Osteoarthritis Hemorrhoid GERD (gastroesophageal reflux disease) HTN (hypertension) Diabetes Carotid stenosis Home Medications ?Medication ?Instructions ?Recorded ?Last Taken ?Type aspirin 81 mg tablet,delayed 81 mg PO DAILY@0800 heart health 04/16/17 11/26/24 09:00 History release glimepiride 2 mg tablet 2 mg PO BREAKFAST dm 7 11/26/24 09:00 History hydrochlorothiazide 25 mg tablet 25 mg PO DAILY bp 11/26/24 09:00 History metformin 1,000 mg tablet 1,000 mg PO BID dm 04/16/17 11/26/24 19:30 History tamsulosin 0.4 mg capsule 0.4 mg PO QHS bph 04/16/17 0 11/26/24 22:30 History cholecalciferol (vitamin D3) 25 25 mcg PO DAILY SUPPLE MENT 04/05/23 11/26/24 09:00 History mcg (1,000 unit) capsule zinc acetate 25 mg (zinc) capsule 50 mg PO DAILY SUPPL EMENT 04/05/23 11/26/24 09:00 History ascorbic acid (vitamin C) 500 mg 500 mg PO DAILY SUPPL EMENT 09/15/24 11/26/24 09:00 History capsule ferrous sulfate 325 mg (65 mg 325 mg PO QDAY SUPPLEMEN T 09/15/24 11/26/24 09:00 History iron) tablet (Feosol) gabapentin 300 mg capsule 300 mg PO QHS PAIN 10/31/24 11/25/24 22:30 History amlodipine 10 mg tablet 10 mg PO DAILY htn 11/27/24 11/26/24 09:00 History acetaminophen 500 mg tablet 500 mg PO Q6H #30 tabs 02/16 Unknown Rx methocarbamol 500 mg tablet 750 mg (1.5 x 500 mg) PO T ID PRN 11/29/24 Unknown Rx pain/spasms #60 tabs oxycodone 5 mg tablet 2.5 - 5 mg (0.5 - 1 x 5 mg) PO Q6H 11/29/24 Unknown Rx PRN pain 7 days #28 tabs sennosides 8.6 mg-docusate sodium 2 tab PO BID PRN con stipation #30 11/29/24 Unknown Rx 50 mg tablet (Stimulant Laxative tabs Plus) Allergy/AdvReac Type Severity Reaction Status Date / Time tetanus and diphtheria Allergy Rash Verified 12/01/24 22:00 toxoids Affmgyz-KOW-TeP Reductase AdvReac Other Verified 12/01/24 22:00 Inhibitor (Hsqswnm-Epv-Toj Reductase Inhibitor) Family History Father Diabetes Heart disease Myocardial infarction Mother CAD (coronary artery disease) Arthritis Surgical History History of right-sided carotid endarterectomy History of right-sided carotid endarterectomy (~11/2017) History of umbilical hernia S/P ventral herniorrhaphy S/P inguinal hernia repair S/P colonoscopy Social History Smoking Status: Former smoker Vital Signs Vital Signs Vital Signs: 12/01/24 22:01 12/02/24 00:00 Temperature 97.6 F L Temperature Source Oral Pulse Rate 62 125 H Respiratory Rate 18 20 H Blood Pressure 153/95 H 167/90 H Blood Pressure Mean 114 115 Pulse Ox 95 96 Oxygen Delivery Method Room Air Room Air Weight Weight: 168 lb 10.458 oz Body Mass Index (BMI) 28.0 Physical Exam Const alert Constitutional Narrative: Mild distress General Appearance: cooperative Resp Resp Narrative: Mildly tachypneic GI GI Narrative: Moderately to severely distended, taut, tympanitic, tender to palpation but not frankly peritoneal. No visible hernias. Results Lab / Micro Data 12/01/24 22:15 12/01/24 22:15 Labs: Laboratory Results - last 24 hr 12/01/24 22:15: WBC 12.1 H, RBC 3.91 L, Hgb 12.2 L, Hct 35.9 L, MCV 91.8, MCH 31.2, MCHC 34.0, RDW Std Deviation 41.3, RDW Coeff of Disha 12.3, Plt Count 436, MPV 11.1, Immature Gran % (Auto) 0.300, Neut % (Auto) 84.2 H, Lymph % (Auto) 7.9L, [place] % (Auto) 6.7, Eos % (Auto) 0.3, Baso % (Auto) 0.6, Absolute Neuts (auto)10.2 H, Absolute Lymphs (auto) 0.96, Nucleated RBC % 0, Sodium 136, Potassium 4.1, Chloride 101, Carbon Dioxide 16.6 L, Anion Gap 19 H, BUN 58 H, Creatinine 2.00 H, Estim Creat Clear Calc 29.06 L, Est GFR (MDRD) Non-Af 34 L, BUN/Creatinine Ratio 29.0 H, Glucose 131 H, Calcium 9.8, Total Bilirubin 0.66, AST 42 H, ALT 11, Alkaline Phosphatase 62, Total Protein 7.6, Albumin 4.1, Globulin 3.6, Albumin/Globulin Ratio 1.1, Lipase 13 12/01/24 22:28: Urine Color Yellow, Urine Clarity Clear, Urine pH 5.0, Ur Specific Donora 1.015, Urine Protein 100 H, Urine Glucose (UA) Normal, Urine Ketones 5 H, Urine Occult Blood 10 H, Urine Nitrite Negative, Urine Bilirubin Negative, Urine Urobilinogen Normal, Ur Leukocyte Esterase Negative, Urine RBC 0SEEN, Urine WBC 0-5 SEEN, Ur Squamous Epith Cells 0 SEEN, Amorphous Sediment 1+,Urine Bacteria 2+, Hyaline Casts 0-5 SEEN, Fine Granular Casts 0-5 SEEN, Urine Mucus 0 SEEN 12/02/24 00:41: Lactic Acid 1.5 Imaging Radiology Impression Abdomen/Pelvis CT 12/01/24 22:18 IMPRESSION: 1. Mild acute sigmoid diverticulitis, with scattered foci of free air, likely secondary to micro perforations. 2. Diffusely dilated ascending, transverse and proximal descending colonic loops, with pneumatosis as described above. Reading Location: [facility] Assessment & Plan Assessment/Plan (1) Free intraperitoneal air: PLAN: Patient is a 79-year-old male postoperative day 5 from lumbar fusion who presents with evidence of severe constipation and associated abdominal pain, distention, and nausea/vomiting. 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 Patient is markedly distended butnot frankly peritoneal. He is tachycardic with a irregular rhythm but his bloodpressure remains slightly high. I requested a check of patient's lactic acid which is within normal limits. In my independent review of the patient's CT imaging the pockets of free air appear to track towards the retroperitoneum and are in reasonably close proximity to recent instrumentation of the patient's lumbar spine. I have conversed with our spine surgeon and he is adamant there is no reason to suspect that his operation is the source for this air. Therefore, taken together it appears patient's severe colonic distention has ledto at least partial thickness compromise of the bowel and his clinical picture suggests possible recent microperforation versus impending large free wall perforation. I suggested that if this were to materialize, patient could potentially require total abdominal colectomy and the magnitude of this operation seems greater than what we can offer with limited resources at this facility?to say nothing of the probable need for intensive care support which isalso limited. I reviewed the CT images with the patient's family to illustrate my points throughout this discussion and they confirmed understanding both directly and through insightful questions. All questions were answered to theirsatisfaction and they agreed with transfer to tertiary facility. Emergency medicine was notified of this intent and begin the transfer process. In the meantime I asked for a basal fluid rate to be established intravenously (patientalready received empiric IV antibiotics from emergency medicine) to try to maintain patient's perfusion and requested a EKG be performed to follow-up patient's tachyarrhythmia. Lastly I notified Dr. Underwood of spine surgery of patient's imminent transfer. Zahira Smith MD General Surgery Endocrine Surgery Pager: [facility] [address] [place] [address], [facility], [address] [place] [address] Office: [phone] (2) Pneumatosis coli: (3) Colon distention: Charges/Coding Visit Charges Office Visits / Consults: 78627 ED Visit; High/Urgent Severity 12/02/24 0236 <Electronically signed by Zahira Smith MD> Cosigner Signature (if applicable): CC: DEANNA Coronado; Dr. Zahira Smith MD~ Signed [facility] Work Phone: Hospital Discharge instructionsAdditional Instructions 1. You have done an amazing job on rehab. You could not stand up by yourself when you first got here and now you are climbing a full flight of stairs. You are much stronger now and you are ready for what comes next. You had a heart attack while you were at [facility]. You have also had congestive heart failure. Normally when the heart squeezes it squeezes 55-65% of the blood out. Your heart squeezes only 35% of the blood out. Sometimes the rest can back up into the lungs and cause shortness of breath with exertion, swelling in your legs, shortness of breath when lying flat in bed and fatigue. You are going to need to have a cardiac catheterization after you are discharged and possibly an Aortic valve replacement. The cath is to make sure you do not have any significant disease in the arteries of the heart that would cause it not to squeeze well or would cause a heart attack. Valve replacements can now sometimes be done through a catheter and you do not have to have the chest opened surgically. I have given you some information on TAVR (transaortic valve replacement). Getting the heart taken care of is your #1 priority. 2. You have chronic kidney disease. There are 5 stages of chronic kidney failure and you are in stage 4 (severe). Because of the kidney failure your body retains potassium and phosphorous. You will now have to follow a diet low in potassium and phosphorous to keep these levels from getting too high. You are also on medications to help keep the potassium and the magnesium within normal limits. You will be seeing Dr. Wilson to help keep your kidneys in the best shape possible and prevent further kidney damage. I am hopeful that there will be some improvement in the kidney function when the heart gets better. 3. You retain urine. This is most likely due to enlargement of the prostate. We have tried medication and they either do not work effectively to control the problem OR they cause your BP to drop with standing. Unfortunately we had to reinsert the Peña catheter prior to you discharging home. At some point you will need to see a urologist to address this problem and you may need surgery. This is not a priority right now........the heart is the priority. Catheters can become infected. The signs that you may have a urinary tract infection include fever, chills, night sweats, pain in the pelvic area and confusion. Often as we get older we do not have fevers and the only sign of an infection may be confusion. If you have any of the symptoms call your doctor. Also call if the urine becomes very cloudy or you have visible blood in the urine. Sometimes the urine will become very malodorous. You will have a home health nurse checking on the Peña.........if you notice something is different let the nurse know. 4. I want you to weigh yourself every morning after urinating (naked or wearing the same clothes everyday) and keep a record. You should have a digital scale for accuracy. The first time you weigh yourself when you get home will be your baseline. If your weight goes up by 3 lbs OR you have swelling in the ankles or increased shortness of breath take 1 Lasix tab daily until the weight is back to your baseline. Watch your salt intake......salt makes you retain water. 5. You are on a lot less insulin now than you were at admission to rehab. You will be taking the long acting insulin in the morning with breakfast. You will take 14 units. With meals you will be taking the aspartame (short acting insulin) 3 units. If the blood sugar prior to a meal is > 180 take an extra 1 unit. If the blood sugar is > 220 take 2 extra units. Check your blood sugar before meals and at bedtime....just like we were doing in the hospital. Take the record of the blood sugars to your appt with Dr. Garcia. If your blood sugars are less than 100 or greater than 250 over the weekend call me for instructions. 6. It has been a pleasure getting to know you and your family. You are in a good place now to move forward with the additional testing you need and hopefully a valve replacement. It is important to KEEP MOVING. Do the exercises the therapists have given you everyday so you do not lose ground. If you get short of breath or lightheaded sit down and take a rest for a few minutes. If you or any of your family have any questions after you leave rehab please DO NOT HESITATE TO CALL ME. OFFICE: [phone] CELL: [phone] NURSES STATION ON REHAB: [phone] Date of Discharge: 02/03/25[facility] Work Phone: Reason for referral (narrative)No reason for referral information availableWexner Medical Center Work Phone: Summary Purpose Family History No Family History Records Found Relationship Condition Age at Onset Recorded Date/T maria guadalupe father Diabetes mellitus Unknown Cardiac disease Unknown Myocardial infarction Unknown mother Coronary artery disease Unknown Relationship Condition Age at Onset Recorded Date/T maria guadalupe father Diabetes mellitus Unknown Cardiac disease Unknown Myocardial infarction Unknown mother Coronary artery disease Unknown Arthritis Unknown Advance Directives No Advanced Directives Records Found Advance Directive Response Recorded Date/ Time Living Will Yes December 01, 2017 11 :19am Power of Biology Intern Yes December 01, 2017 11:19am Advance Directive Response Recorded Date/ Time Living Will Yes December 01, 2017 10 :19am Power of Biology Intern Yes December 01, 2017 10:19am Advance Directive Response Recorded Date/ Time Living Will Yes October 31, 2024 9:58am Do you have a Healthcare Power of Biology Intern? Yes November 27, 2024 3:51pm Name of Medical Power of Biology Intern November 27, 2024 3:51pm Advance Directive Response Recorded Date/ Time Living Will Yes October 31, 2024 9:58am Do you have a Healthcare Power of Biology Intern? Yes November 27, 2024 3:51pm Name of Medical Power of Biology Intern November 27, 2024 3:51pm Do you have a Healthcare Power of Biology Intern? No December 01, 2024 10:01pm Date Activated Date Inactivated Comments 12/13/2024 2:26 AM Question Answer Comments Full Code Order Discussed With: Patient Date Activated Date Inactivated Comments 12/06/2024 10:14 PM 12/13/2024 2:26 AM Question Answer Comments DNR Order Discussed With: Surrogate Decision Sergey er Surrogate Decision Maker Name: melyssa Packer Date Activated Date Inactivated Comments 12/05/2024 7:03 AM 12/06/2024 10:14 PM Question Answer Comments Full Code Order Discussed With: Surrogate Decisi on Maker Surrogate Decision Maker Name: Alexia Barnett Date Activated Date Inactivated Comments 12/04/2024 12:58 PM 12/05/2024 7:03 AM Question Answer Comments Order Discussed With: Surrogate Decision Maker Advance Directive Response Recorded Date/ Time Living Will Yes October 31, 2024 9:58am Do you have a Healthcare Power of Biology Intern? Yes November 27, 2024 3:51pm Name of Medical Power of Biology Intern November 27, 2024 3:51pm Do you have a Healthcare Power of Biology Intern? Yes December 28, 2024 8:54am Name of Medical Power of Biology Intern Alexia Barnett December 28, 2024 8:54am Do you have a Healthcare Power of Biology Intern? Yes January 03, 2025 8:46am Do you have a Healthcare Power of Biology Intern? No December 01, 2024 10:01pm Advance Directive Response Recorded Date/ Time Living Will Yes October 31, 2024 9:58am Do you have a Healthcare Power of Biology Intern? Yes November 27, 2024 3:51pm Name of Medical Power of Biology Intern May 5th, 2025 3:51pm Do you have a Healthcare Power of Biology Intern? Yes December 28, 2024 8:54am Name of Medical Power of Biology Intern Alexia Barnett December 28, 2024 8:54am Do you have a Healthcare Power of Biology Intern? Yes January 03, 2025 2:09pm Do you have a Healthcare Power of Biology Intern? No December 01, 2024 10:01pm Documents on File Type Date Recorded Patient [facility] Consultant Expl anation Advance Directive(s) 01/15/2025 12:27 PM Date Activated Date Inactivated Comments 01/08/2025 5:10 AM 01/11/2025 4:20 PM Date Activated Date Inactivated Comments 12/13/2024 2:26 AM 12/26/2024 11:18 PM Question Answer Comments Full Code Order Discussed With: Patient Date Activated Date Inactivated Comments 12/06/2024 10:14 PM 12/13/2024 2:26 AM Question Answer Comments DNR Order Discussed With: Surrogate Decision Sergey er Surrogate Decision Maker Name: melyssa Packer Date Activated Date Inactivated Comments 12/05/2024 7:03 AM 12/06/2024 10:14 PM Question Answer Comments Full Code Order Discussed With: Surrogate Decisi on Maker Surrogate Decision Maker Name: Alexia Barnett Date Activated Date Inactivated Comments 12/04/2024 12:58 PM 12/05/2024 7:03 AM Question Answer Comments Order Discussed With: Surrogate Decision Maker Advance Directive Response Recorded Date/ Time Living Will Yes October 31, 2024 9:58am Do you have a Healthcare Power of Biology Intern? Yes November 27, 2024 3:51pm Name of Medical Power of Biology Intern November 27, 2024 3:51pm Do you have a Healthcare Power of Biology Intern? Yes December 28, 2024 8:54am Name of Medical Power of Biology Intern Alexia Barnett December 28, 2024 8:54am Do you have a Healthcare Power of Biology Intern? Yes January 03, 2025 2:09pm Do you have a Healthcare Power of Biology Intern? Yes January 12, 2025 1:30pm Do you have a Healthcare Power of Biology Intern? No December 01, 2024 10:01pm Chief Complaint and Reason for Visit Chief Complaint Occlusion and stenos is of left carotid artery Chief Complaint Occlusion and stenos is of left carotid artery Yearly Carotid US 6/2 Reason for Visit Carotid stenosis, le ft Chief Complaint Occlusion and stenos is of left carotid artery Yearly Carotid US 6/2 LUMBAR SPINE Reason for Visit Carotid stenosis, le ft Lumbar spinal stenosis Chief Complaint LUMBAR SPINE Spinal stenosis, lumbar region without neurogenic LUMBAR SPINE STENOSIS LUMBAR REGION W/OUT CLAUDICATION/RX HERE Reason for Visit Lumbar spinal stenos is Lumbar spinal stenosis Chief Complaint STENOSIS LUMBAR JAMES ON W/OUT CLAUDICATION/RX HERE PN IN L KNEE/RX HERE Chief Complaint Admit Date LUMBAR SPINE September 15, 2024 1:22pm room 4 September 15, 2024 1:36pm Pain September 19, 2024 12:21pm LUMBAR SPINE September 21, 2024 10:44am Reason for Visit Admit Date Spinal stenosis of lumbar re gion with neurogenic claudication September 15, 2024 1:22pm Spondylolisthesis, lumbar region Februar 2024 1:22pm Spinal stenosis of lumbar re gion with neurogenic claudication September 21, 2024 10:44am Spondylolisthesis, lumbar region Februar y 2024 10:44am Chief Complaint Admit Date LUMBAR SPINE September 15, 2024 1:22pm room 4 September 15, 2024 1:36pm Pain September 19, 2024 12:21pm LUMBAR SPINE September 21, 2024 10:44am PREOP November 02, 2024 12: 23pm lumbar spine November 03, 2024 12: 43pm LAB November 13, 2024 9:3 1am Reason for Visit Admit Date Spinal stenosis of lumbar re gion with neurogenic claudication September 15, 2024 1:22pm Spondylolisthesis, lumbar region Februar y 2024 1:22pm Spinal stenosis of lumbar re gion with neurogenic claudication September 21, 2024 10:44am Spondylolisthesis, lumbar region Februar y 2024 10:44am Spinal stenosis of lumbar re gion with neurogenic claudication November 03, 2024 12:43pm Spondylolisthesis, lumbar region October 242024 12:43pm Chief Complaint Admit Date LUMBAR SPINE September 15, 2024 1:22pm room 4 September 15, 2024 1:36pm Pain September 19, 2024 12:21pm LUMBAR SPINE September 21, 2024 10:44am PREOP November 02, 2024 12: 23pm lumbar spine November 03, 2024 12: 43pm LAB November 13, 2024 9:3 1am LAB November 22, 2024 12: 34pm 360 Lumbar Fusion L2-3, L3-4 and L4-5 Ma y 2024 5:20am 360 Lumbar Fusion L2-3, L3-4 and L4-5 Ma y 2024 7:13am 360 Lumbar Fusion L2-3, L3-4 and L4-5 Ma y 2024 6:44pm 360 Lumbar Fusion L2-3, L3-4 and L4-5 Ma y 2024 8:29am 360 Lumbar Fusion L2-3, L3-4 and L4-5 Ma y 2024 4:05pm 360 Lumbar Fusion L2-3, L3-4 and L4-5 Ma y 2024 7:31am Reason for Visit Admit Date Spinal stenosis of lumbar re gion with neurogenic claudication September 15, 2024 1:22pm Spondylolisthesis, lumbar region uar 2024 1:22pm Spinal stenosis of lumbar re gion with neurogenic claudication September 21, 2024 10:44am Spondylolisthesis, lumbar region uar 2024 10:44am Spinal stenosis of lumbar re gion with neurogenic claudication November 03, 2024 12:43pm Spondylolisthesis, lumbar region October 242024 12:43pm Anemia November 27, 2024 5:20am Hyperglycemia November 27, 2024 5:20am Leukocytosis November 27, 2024 5:20am Lumbar spinal stenosis November 27, 2024 5:2 0am Spinal stenosis of lumbar re gion with neurogenic claudication November 27, 2024 5:20am Spondylolisthesis, lumbar region November 5:20am Status post lumbar spinal fusion November 5:20am Chief Complaint Admit Date LUMBAR SPINE September 15, 2024 1:22pm room 4 September 15, 2024 1:36pm Pain September 19, 2024 12:21pm LUMBAR SPINE September 21, 2024 10:44am PREOP November 02, 2024 12: 23pm lumbar spine November 03, 2024 12: 43pm LAB November 13, 2024 9:3 1am LAB November 22, 2024 12: 34pm 360 Lumbar Fusion L2-3, L3-4 and L4-5 Ma y 2024 7:13am 360 Lumbar Fusion L2-3, L3-4 and L4-5 Ma y 2024 12:54pm 360 Lumbar Fusion L2-3, L3-4 and L4-5 Ma y 2024 6:44pm 360 Lumbar Fusion L2-3, L3-4 and L4-5 Ma y 2024 8:29am 360 Lumbar Fusion L2-3, L3-4 and L4-5 Ma y 2024 4:05pm 360 Lumbar Fusion L2-3, L3-4 and L4-5 Ma y 2024 7:31am abd pain December 01, 2024 10:00p m Reason for Visit Admit Date Spinal stenosis of lumbar re gion with neurogenic claudication September 15, 2024 1:22pm Spondylolisthesis, lumbar region Februar 2024 1:22pm Spinal stenosis of lumbar re gion with neurogenic claudication September 21, 2024 10:44am Spondylolisthesis, lumbar region Februar y 2024 10:44am Spinal stenosis of lumbar re gion with neurogenic claudication November 03, 2024 12:43pm Spondylolisthesis, lumbar region October 242024 12:43pm Anemia November 27, 2024 12:54p m Hyperglycemia November 27, 2024 12:54p m Leukocytosis November 27, 2024 12:54p m Status post lumbar spinal fusion November 12:54pm Lumbar spinal stenosis November 27, 2024 12: 54pm Spinal stenosis of lumbar re gion with neurogenic claudication November 27, 2024 12:54pm Spondylolisthesis, lumbar region November 12:54pm Colon distention December 01, 2024 10:00p m Free intraperitoneal air December 01, 2024 1 0:00pm Pneumatosis coli December 01, 2024 10:00p m Chief Complaint Admit Date LUMBAR SPINE September 15, 2024 1:22pm room 4 September 15, 2024 1:36pm Pain September 19, 2024 12:21pm LUMBAR SPINE September 21, 2024 10:44am PREOP November 02, 2024 12: 23pm lumbar spine November 03, 2024 12: 43pm LAB November 13, 2024 9:3 1am LAB November 22, 2024 12: 34pm 360 Lumbar Fusion L2-3, L3-4 and L4-5 Ma y 2024 7:13am 360 Lumbar Fusion L2-3, L3-4 and L4-5 Ma y 2024 12:54pm 360 Lumbar Fusion L2-3, L3-4 and L4-5 Ma y 2024 4:05pm 360 Lumbar Fusion L2-3, L3-4 and L4-5 Ma y 2024 6:44pm 360 Lumbar Fusion L2-3, L3-4 and L4-5 Ma y 2024 8:29am 360 Lumbar Fusion L2-3, L3-4 and L4-5 Ma y 2024 7:31am abd pain December 01, 2024 10:00p m abd pain December 02, 2024 1:31a m ABDOMINAL PAIN, PNEUMOPERITONEUM PARTIAL December 26, 2024 7:37pm ABN LABS January 03, 2025 8:45 am Reason for Visit Admit Date Spinal stenosis of lumbar re gion with neurogenic claudication September 15, 2024 1:22pm Spondylolisthesis, lumbar region Februar 2024 1:22pm Spinal stenosis of lumbar re gion with neurogenic claudication September 21, 2024 10:44am Spondylolisthesis, lumbar region Februar 2024 10:44am Spinal stenosis of lumbar re gion with neurogenic claudication November 03, 2024 12:43pm Spondylolisthesis, lumbar region October 242024 12:43pm Anemia November 27, 2024 12:54p m Hyperglycemia November 27, 2024 12:54p m Leukocytosis November 27, 2024 12:54p m Status post lumbar spinal fusion November 12:54pm Lumbar spinal stenosis November 27, 2024 12: 54pm Spinal stenosis of lumbar re gion with neurogenic claudication November 27, 2024 12:54pm Spondylolisthesis, lumbar region November 12:54pm Colon distention December 01, 2024 10:00p m Free intraperitoneal air December 01, 2024 1 0:00pm Pneumatosis coli December 01, 2024 10:00p m Acute HFrEF (heart failure w ith reduced ejection fraction) December 26, 2024 7:37pm Acute renal failure on dialysis December 7:37pm Acute respiratory failure with hypoxia J une 2024 7:37pm BPH (benign prostatic hyperplasia) December 26, 2024 7:37pm Debility December 26, 2024 7:37p m Diabetes December 26, 2024 7:37p m Diabetic polyneuropathy December 26, 2024 7 :37pm Dysphagia December 26, 2024 7:37p m Essential (primary) hypertension December 7:37pm Iron deficiency anemia December 26, 2024 7: 37pm Muscle spasm December 26, 2024 7:37p m NSTEMI (non-ST elevated myocardial infar ction) December 26, 2024 7:37pm Perforation of sigmoid colon due to dive rticulitis December 26, 2024 7:37pm Sepsis December 26, 2024 7:37p m Severe aortic stenosis December 26, 2024 7: 37pm Urinary retention December 26, 2024 7:37p m Chief Complaint Admit Date LUMBAR SPINE September 15, 2024 1:22pm room 4 September 15, 2024 1:36pm Pain September 19, 2024 12:21pm LUMBAR SPINE September 21, 2024 10:44am PREOP November 02, 2024 12: 23pm lumbar spine November 03, 2024 12: 43pm LAB November 13, 2024 9:3 1am LAB November 22, 2024 12: 34pm 360 Lumbar Fusion L2-3, L3-4 and L4-5 Ma y 2024 7:13am 360 Lumbar Fusion L2-3, L3-4 and L4-5 Ma 2024 12:54pm 360 Lumbar Fusion L2-3, L3-4 and L4-5 Ma y 2024 4:05pm 360 Lumbar Fusion L2-3, L3-4 and L4-5 Ma y 2024 6:44pm 360 Lumbar Fusion L2-3, L3-4 and L4-5 Ma 2024 8:29am 360 Lumbar Fusion L2-3, L3-4 and L4-5 Ma y 2024 7:31am abd pain December 01, 2024 10:00p m abd pain December 02, 2024 1:31a m ABDOMINAL PAIN, PNEUMOPERITONEUM PARTIAL December 26, 2024 7:37pm ACUTE HYPERKALEMIA January 03, 2025 12:4 4pm Reason for Visit Admit Date Spinal stenosis of lumbar re gion with neurogenic claudication September 15, 2024 1:22pm Spondylolisthesis, lumbar region [id number] 1:22pm Spinal stenosis of lumbar re gion with neurogenic claudication September 21, 2024 10:44am Spondylolisthesis, lumbar region [email or web address] 10:44am Spinal stenosis of lumbar re gion with neurogenic claudication November 03, 2024 12:43pm Spondylolisthesis, lumbar region October 242024 12:43pm Anemia November 27, 2024 12:54p m Hyperglycemia November 27, 2024 12:54p m Leukocytosis November 27, 2024 12:54p m Status post lumbar spinal fusion November 12:54pm Lumbar spinal stenosis November 27, 2024 12: 54pm Spinal stenosis of lumbar re gion with neurogenic claudication November 27, 2024 12:54pm Spondylolisthesis, lumbar region November 12:54pm Colon distention December 01, 2024 10:00p m Free intraperitoneal air December 01, 2024 1 0:00pm Pneumatosis coli December 01, 2024 10:00p m Acute HFrEF (heart failure w ith reduced ejection fraction) December 26, 2024 7:37pm Acute renal failure on dialysis December 7:37pm Acute respiratory failure with hypoxia J 2024 7:37pm BPH (benign prostatic hyperplasia) December 26, 2024 7:37pm Debility December 26, 2024 7:37p m Diabetes December 26, 2024 7:37p m Diabetic polyneuropathy December 26, 2024 7 :37pm Dysphagia December 26, 2024 7:37p m Essential (primary) hypertension December 7:37pm Iron deficiency anemia December 26, 2024 7: 37pm Muscle spasm December 26, 2024 7:37p m NSTEMI (non-ST elevated myocardial infar ction) December 26, 2024 7:37pm Perforation of sigmoid colon due to dive rticulitis December 26, 2024 7:37pm Sepsis December 26, 2024 7:37p m Severe aortic stenosis December 26, 2024 7: 37pm Urinary retention December 26, 2024 7:37p m Acute hyperkalemia January 03, 2025 12:4 4pm History of bowel resection January 03 12:44pm History of diabetes mellitus January 03, 2025 12:44pm History of hypertension January 03, 2025 12:44pm Chronic kidney disease January 03, 2025 1 2:44pm Chief Complaint Admit Date LUMBAR SPINE September 15, 2024 1:22pm room 4 September 15, 2024 1:36pm Pain September 19, 2024 12:21pm LUMBAR SPINE September 21, 2024 10:44am PREOP November 02, 2024 12: 23pm lumbar spine November 03, 2024 12: 43pm LAB November 13, 2024 9:3 1am LAB November 22, 2024 12: 34pm 360 Lumbar Fusion L2-3, L3-4 and L4-5 Ma y 2024 7:13am 360 Lumbar Fusion L2-3, L3-4 and L4-5 Ma y 2024 12:54pm 360 Lumbar Fusion L2-3, L3-4 and L4-5 Ma y 2024 4:05pm 360 Lumbar Fusion L2-3, L3-4 and L4-5 Ma y 2024 6:44pm 360 Lumbar Fusion L2-3, L3-4 and L4-5 Ma y 2024 8:29am 360 Lumbar Fusion L2-3, L3-4 and L4-5 Ma y 2024 7:31am abd pain December 01, 2024 10:00p m abd pain December 02, 2024 1:31a m ABDOMINAL PAIN, PNEUMOPERITONEUM PARTIAL December 26, 2024 7:37pm ACUTE HYPERKALEMIA January 03, 2025 12:4 4pm ACUTE HYPERKALEMIA January 04, 2025 11:1 0am ACUTE HYPERKALEMIA January 05, 2025 10:0 3am ACUTE HYPERKALEMIA January 06, 2025 9:35 am ACUTE HYPERKALEMIA January 07, 2025 10:4 1am Reason for Visit Admit Date Spinal stenosis of lumbar re gion with neurogenic claudication September 15, 2024 1:22pm Spondylolisthesis, lumbar region Februar y 2024 1:22pm Spinal stenosis of lumbar re gion with neurogenic claudication September 21, 2024 10:44am Spondylolisthesis, lumbar region Februar y 2024 10:44am Spinal stenosis of lumbar re gion with neurogenic claudication November 03, 2024 12:43pm Spondylolisthesis, lumbar region October 242024 12:43pm Anemia November 27, 2024 12:54p m Hyperglycemia November 27, 2024 12:54p m Leukocytosis November 27, 2024 12:54p m Status post lumbar spinal fusion November 12:54pm Lumbar spinal stenosis November 27, 2024 12: 54pm Spinal stenosis of lumbar re gion with neurogenic claudication November 27, 2024 12:54pm Spondylolisthesis, lumbar region November 12:54pm Colon distention December 01, 2024 10:00p m Free intraperitoneal air December 01, 2024 1 0:00pm Pneumatosis coli December 01, 2024 10:00p m Acute HFrEF (heart failure w ith reduced ejection fraction) December 26, 2024 7:37pm Acute renal failure on dialysis December 7:37pm Acute respiratory failure with hypoxia J 2024 7:37pm BPH (benign prostatic hyperplasia) December 26, 2024 7:37pm Debility December 26, 2024 7:37p m Diabetes December 26, 2024 7:37p m Diabetic polyneuropathy December 26, 2024 7 :37pm Dysphagia December 26, 2024 7:37p m Essential (primary) hypertension December 7:37pm Iron deficiency anemia December 26, 2024 7: 37pm Muscle spasm December 26, 2024 7:37p m NSTEMI (non-ST elevated myocardial infar ction) December 26, 2024 7:37pm Perforation of sigmoid colon due to dive rticulitis December 26, 2024 7:37pm Sepsis December 26, 2024 7:37p m Severe aortic stenosis December 26, 2024 7: 37pm Urinary retention December 26, 2024 7:37p m Acute hyperkalemia January 03, 2025 12:4 4pm History of bowel resection January 03 12:44pm History of diabetes mellitus January 03, 2025 12:44pm History of hypertension January 03, 2025 12:44pm Hyperkalemia January 03, 2025 12:4 4pm Postoperative intra-abdominal abscess Ju ne 2024 12:44pm Chronic kidney disease January 03, 2025 1 2:44pm CKD (chronic kidney disease), stage IV J une 2024 12:44pm Chief Complaint Admit Date PREOP November 02, 2024 12: 23pm lumbar spine November 03, 2024 12: 43pm LAB November 13, 2024 9:3 1am LAB November 22, 2024 12: 34pm 360 Lumbar Fusion L2-3, L3-4 and L4-5 Ma y 2024 7:13am 360 Lumbar Fusion L2-3, L3-4 and L4-5 Ma y 2024 12:54pm 360 Lumbar Fusion L2-3, L3-4 and L4-5 Ma y 2024 4:05pm 360 Lumbar Fusion L2-3, L3-4 and L4-5 Ma y 2024 6:44pm 360 Lumbar Fusion L2-3, L3-4 and L4-5 Ma y 2024 8:29am 360 Lumbar Fusion L2-3, L3-4 and L4-5 Ma y 2024 7:31am abd pain December 01, 2024 10:00p m abd pain December 02, 2024 1:31a m ABDOMINAL PAIN, PNEUMOPERITONEUM PARTIAL December 26, 2024 7:37pm ACUTE HYPERKALEMIA January 03, 2025 12:4 4pm EKG January 03, 2025 5:44 pm ACUTE HYPERKALEMIA January 04, 2025 11:1 0am ACUTE HYPERKALEMIA January 05, 2025 10:0 3am ACUTE HYPERKALEMIA January 06, 2025 9:35 am CHEST TIGHTNESS January 07, 2025 6:53 am ACUTE HYPERKALEMIA January 07, 2025 10:4 1am DEBILITY January 11, 2025 2:25 pm DEBILITY January 11, 2025 4:42 pm DEBILITY January 12, 2025 7:45 am DEBILITY January 15, 2025 9:22 am DEBILITY January 16, 2025 10:4 0am DEBILITY January 16, 2025 11:4 9am DEBILITY January 16, 2025 7:07 pm ACUTE HYPERKALEMIA January 17, 2025 9:07 am DEBILITY January 18, 2025 8:52 am DEBILITY January 19, 2025 9:23 am DEBILITY January 22, 2025 8:02 am DEBILITY January 23, 2025 9:45a m DEBILITY January 24, 2025 9:04a m DEBILITY January 25, 2025 7:53a m DEBILITY January 29, 2025 8:30a m DEBILITY January 30, 2025 7:48a m DEBILITY January 31, 2025 10:35 am DEBILITY February 01, 2025 11:4 7am DEBILITY February 02, 2025 8:23 am Reason for Visit Admit Date Spinal stenosis of lumbar re gion with neurogenic claudication November 03, 2024 12:43pm Spondylolisthesis, lumbar region October [id number] 12:43pm Anemia November 27, 2024 12:54p m Lumbar spinal stenosis November 27, 2024 12: 54pm Spinal stenosis of lumbar re gion with neurogenic claudication November 27, 2024 12:54pm Spondylolisthesis, lumbar region November 12:54pm Hyperglycemia November 27, 2024 12:54p m Leukocytosis November 27, 2024 12:54p m Status post lumbar spinal fusion November 12:54pm Colon distention December 01, 2024 10:00p m Pneumatosis coli December 01, 2024 10:00p m Free intraperitoneal air December 01, 2024 1 0:00pm BPH (benign prostatic hyperplasia) December 26, 2024 7:37pm Debility December 26, 2024 7:37p m Essential (primary) hypertension December 7:37pm Severe aortic stenosis December 26, 2024 7: 37pm Urinary retention December 26, 2024 7:37p m Acute HFrEF (heart failure with reduced ejection fraction) December 26, 2024 7:37pm Acute renal failure on dialysis December 7:37pm Acute respiratory failure with hypoxia J 2024 7:37pm Dysphagia December 26, 2024 7:37p m NSTEMI (non-ST elevated myocardial infar ction) December 26, 2024 7:37pm Perforation of sigmoid colon due to dive rticulitis December 26, 2024 7:37pm Sepsis December 26, 2024 7:37p m Diabetic polyneuropathy December 26, 2024 7 :37pm Iron deficiency anemia December 26, 2024 7: 37pm Diabetes December 26, 2024 7:37p m Muscle spasm December 26, 2024 7:37p m History of diabetes mellitus January 03, 2025 12:44pm CKD (chronic kidney disease), stage IV J une 2024 12:44pm Hyperkalemia January 03, 2025 12:4 4pm Acute hyperkalemia January 03, 2025 12:4 4pm Chronic kidney disease January 03, 2025 1 2:44pm History of bowel resection January 03 12:44pm History of hypertension January 03, 2025 12:44pm Postoperative intra-abdominal abscess Ju ne 2024 12:44pm PRISCILA (acute kidney injury) January 11 2:25pm Anemia January 11, 2025 2:25 pm BPH (benign prostatic hyperplasia) January 11, 2025 2:25pm Cardiomyopathy January 11, 2025 2:25 pm Carotid stenosis, left January 11, 2025 2 :25pm Cognitive dysfunction January 11, 2025 2: 25pm Cough January 11, 2025 2:25 pm Debility January 11, 2025 2:25 pm Depression January 11, 2025 2:25 pm Diverticulosis January 11, 2025 2:25 pm Dysphagia, oropharyngeal January 11, 2025 2:25pm Essential (primary) hypertension January 112024 2:25pm H/O drainage of abscess January 11, 2025 2:25pm Heme positive stool January 11, 2025 2:25 pm High output ileostomy January 11, 2025 2: 25pm History of diabetes mellitus January 11, 2025 2:25pm History of ileostomy January 11, 2025 2:2 5pm History of lumbar fusion January 11, 2025 2:25pm History of right hemicolectomy December 2:25pm History of right-sided carotid endartere ctomy January 11, 2025 2:25pm Hyperlipidemia January 11, 2025 2:25 pm Hyperphosphatemia January 11, 2025 2:25 pm Hypomagnesemia January 11, 2025 2:25 pm Hyponatremia January 11, 2025 2:25 pm Left atrial enlargement January 11, 2025 2:25pm Left bundle branch block January 11, 2025 2:25pm Metabolic acidosis January 11, 2025 2:25 pm Mild pulmonary hypertension January 11, 025 2:25pm Myocardial infarction due to demand isch emia January 11, 2025 2:25pm Orthostatic hypotension January 11, 2025 2:25pm Other severe protein-calorie malnutritio n January 11, 2025 2:25pm Postoperative abscess January 11, 2025 2: 25pm Severe aortic stenosis January 11, 2025 2 :25pm Urinary retention January 11, 2025 2:25 pm CKD (chronic kidney disease), stage IV J une 2024 2:25pm Achilles tendinitis of right lower extre mity January 11, 2025 2:25pm COPD (chronic obstructive pulmonary dise ase) January 11, 2025 2:25pm Acute renal failure superimp osed on stage 4 chronic kidney disease January 11, 2025 2:25pm Acute right ankle pain January 11, 2025 2 :25pm Candidiasis, intertrigo January 11, 2025 2:25pm History of partial colectomy January 11, 2025 2:25pm Status post lumbar spinal fusion January 112024 2:25pm Chief Complaint Admit Date PREOP November 02, 2024 12: 23pm lumbar spine November 03, 2024 12: 43pm LAB November 13, 2024 9:3 1am LAB November 22, 2024 12: 34pm 360 Lumbar Fusion L2-3, L3-4 and L4-5 Ma y 2024 7:13am 360 Lumbar Fusion L2-3, L3-4 and L4-5 Ma y 2024 12:54pm 360 Lumbar Fusion L2-3, L3-4 and L4-5 Ma y 2024 4:05pm 360 Lumbar Fusion L2-3, L3-4 and L4-5 Ma y 2024 6:44pm 360 Lumbar Fusion L2-3, L3-4 and L4-5 Ma y 2024 8:29am 360 Lumbar Fusion L2-3, L3-4 and L4-5 Ma y 2024 7:31am abd pain December 01, 2024 10:00p m abd pain December 02, 2024 1:31a m ABDOMINAL PAIN, PNEUMOPERITONEUM PARTIAL December 26, 2024 7:37pm ACUTE HYPERKALEMIA January 03, 2025 12:4 4pm EKG January 03, 2025 5:44 pm ACUTE HYPERKALEMIA January 04, 2025 11:1 0am ACUTE HYPERKALEMIA January 05, 2025 10:0 3am ACUTE HYPERKALEMIA January 06, 2025 9:35 am CHEST TIGHTNESS January 07, 2025 6:53 am ACUTE HYPERKALEMIA January 07, 2025 10:4 1am DEBILITY January 11, 2025 2:25 pm DEBILITY January 11, 2025 4:42 pm DEBILITY January 12, 2025 7:45 am DEBILITY January 15, 2025 9:22 am DEBILITY January 16, 2025 10:4 0am DEBILITY January 16, 2025 11:4 9am DEBILITY January 16, 2025 7:07 pm ACUTE HYPERKALEMIA January 17, 2025 9:07 am DEBILITY January 18, 2025 8:52 am DEBILITY January 19, 2025 9:23 am DEBILITY January 22, 2025 8:02 am DEBILITY January 23, 2025 9:45a m DEBILITY January 24, 2025 9:04a m DEBILITY January 25, 2025 7:53a m DEBILITY January 29, 2025 8:30a m DEBILITY January 30, 2025 7:48a m DEBILITY January 31, 2025 10:35 am DEBILITY February 01, 2025 11:4 7am DEBILITY February 02, 2025 8:23 am Pain in left lower leg February 12, 2025 2 :55pm Reason for Visit Admit Date Spinal stenosis of lumbar re gion with neurogenic claudication November 03, 2024 12:43pm Spondylolisthesis, lumbar region October [id number] 12:43pm Anemia November 27, 2024 12:54p m Lumbar spinal stenosis November 27, 2024 12: 54pm Spinal stenosis of lumbar re gion with neurogenic claudication November 27, 2024 12:54pm Spondylolisthesis, lumbar region November 12:54pm Hyperglycemia November 27, 2024 12:54p m Leukocytosis November 27, 2024 12:54p m Status post lumbar spinal fusion November 12:54pm Colon distention December 01, 2024 10:00p m Pneumatosis coli December 01, 2024 10:00p m Free intraperitoneal air December 01, 2024 1 0:00pm Debility December 26, 2024 7:37p m Severe aortic stenosis December 26, 2024 7: 37pm Urinary retention December 26, 2024 7:37p m Acute HFrEF (heart failure with reduced ejection fraction) December 26, 2024 7:37pm Acute renal failure on dialysis December 7:37pm Acute respiratory failure with hypoxia J [facility] 2024 7:37pm Dysphagia December 26, 2024 7:37p m NSTEMI (non-ST elevated myocardial infar ction) December 26, 2024 7:37pm Perforation of sigmoid colon due to dive rticulitis December 26, 2024 7:37pm Sepsis December 26, 2024 7:37p m BPH (benign prostatic hyperplasia) December 26, 2024 7:37pm Diabetic polyneuropathy December 26, 2024 7 :37pm Essential (primary) hypertension December 7:37pm Iron deficiency anemia December 26, 2024 7: 37pm Diabetes December 26, 2024 7:37p m Muscle spasm December 26, 2024 7:37p m Hyperkalemia January 03, 2025 12:4 4pm Acute hyperkalemia January 03, 2025 12:4 4pm CKD (chronic kidney disease), stage IV J [facility] 2024 12:44pm History of diabetes mellitus January 03, 2025 12:44pm Chronic kidney disease January 03, 2025 1 2:44pm History of bowel resection January 03 12:44pm History of hypertension January 03, 2025 12:44pm Postoperative intra-abdominal abscess Ju vt 2024 12:44pm PRISCILA (acute kidney injury) January 11 2:25pm Anemia January 11, 2025 2:25 pm Debility January 11, 2025 2:25 pm Depression January 11, 2025 2:25 pm Heme positive stool January 11, 2025 2:25 pm High output ileostomy January 11, 2025 2: 25pm Hyperphosphatemia January 11, 2025 2:25 pm Hypomagnesemia January 11, 2025 2:25 pm Hyponatremia January 11, 2025 2:25 pm Severe aortic stenosis January 11, 2025 2 :25pm Urinary retention January 11, 2025 2:25 pm COPD (chronic obstructive pulmonary dise ase) January 11, 2025 2:25pm Achilles tendinitis of right lower extre mity January 11, 2025 2:25pm Acute renal failure superimp osed on stage 4 chronic kidney disease January 11, 2025 2:25pm Acute right ankle pain January 11, 2025 2 :25pm Candidiasis, intertrigo January 11, 2025 2:25pm Cough January 11, 2025 2:25 pm Metabolic acidosis January 11, 2025 2:25 pm Orthostatic hypotension January 11, 2025 2:25pm Postoperative abscess January 11, 2025 2: 25pm BPH (benign prostatic hyperplasia) January 11, 2025 2:25pm Cardiomyopathy January 11, 2025 2:25 pm Carotid stenosis, left January 11, 2025 2 :25pm CKD (chronic kidney disease), stage IV J une 2024 2:25pm Cognitive dysfunction January 11, 2025 2: 25pm Diverticulosis January 11, 2025 2:25 pm Dysphagia, oropharyngeal January 11, 2025 2:25pm Essential (primary) hypertension January 112024 2:25pm H/O drainage of abscess January 11, 2025 2:25pm History of diabetes mellitus January 11, 2025 2:25pm History of ileostomy January 11, 2025 2:2 5pm History of lumbar fusion January 11, 2025 2:25pm History of right hemicolectomy December 2:25pm History of right-sided carotid endartere ctomy January 11, 2025 2:25pm Hyperlipidemia January 11, 2025 2:25 pm Left atrial enlargement January 11, 2025 2:25pm Left bundle branch block January 11, 2025 2:25pm Mild pulmonary hypertension January 11, 2 025 2:25pm Myocardial infarction due to demand isch emia January 11, 2025 2:25pm Other severe protein-calorie malnutritio n January 11, 2025 2:25pm History of partial colectomy January 11, 2025 2:25pm Status post lumbar spinal fusion January 112024 2:25pm Additional Source Comments (unrecognized sect ion and content) No Status Records FoundNo Status Records FoundNo Status Records Found INFORMATION SOURCE (unrecogn ized section and content) DATE CREATED AUTHOR 01/14/2018 [facility] ([place]) DATE CREATED AUTHOR AUTHOR'S ORGANIZ ATION 02/11/2025 [facility] DATE CREATED AUTHOR AUTHOR'S ORGANIZ ATION 02/17/2025 [facility] Care Teams (unrecognized sec tion and content) Team Status: Active Member Role Status Dates Dr. Damion Toscano MD Family Provider Active Team Status: Active Member Role Status Dates Dr. Guillaume Hancock MD Attending Provider, Referring Provider Active Team Status: Inactive Member Role Status Dates Dr. Damion Toscano MD Primary Care Provider Active Dr. Guillaume Hancock MD Attending Provider, Referring Provider Active Team Status: Active Member Role Status Dates Dr. Damion Toscano MD Family Provider Active [facility] [employer] Primary Care Provider Active Team Status: Inactive Member Role Status Dates Dr. Guillaume Hancock MD Attending Provider Active Team Status: Inactive Member Role Status Dates [facility] [employer] Primary Care Provide r, Attending Provider, Referring Provider Active Team Status: Inactive Member Role Status Dates [facility] [employer] Primary Care Provider, Referring P rovider Active Dr. Terell Espino DO Attending Provider Active Team Status: Active Member Role Status Dates [facility] [employer] Primary Care Provide r, Attending Provider, Referring Provider Active Team Status: Inactive Member Role Status Dates [facility] [employer] Primary Care Provider Active Dr. Terell Espino DO Attending Provider, Referring P rovider Active Team Status: Inactive Member Role Status Dates [facility] [employer] Primary Care Provider Active Dr. Mukesh Gutierrez MD Attending Provider, Referrin g Provider Active Team Status: Active Member Role Status Dates [facility] [employer] Primary Care Provider Active Team Status: Inactive Member Role Status Dates [facility] [employer] Primary Care Provider Active Start: July 10, 2024 End: July 10, 2024 [facility] [employer] Attending Provider Active St art: July 10, 2024 End: July 10, 2024 [facility] [employer] Referring Provider Active St art: July 10, 2024 End: July 10, 2024 Team Status: Inactive Member Role Status Dates [facility] [employer] Primary Care Provider Active Start: September 15, 2024 End: September 15, 2024 [facility] , [employer] Referring Provider Active St art: September 15, 2024 End: September 15, 2024 Dr. Bill Colon MD Attending Provider Active Start: September 15, 2024 End: September 15, 2024 Team Status: Inactive Member Role Status Dates [facility] , [employer] Primary Care Provider Active Start: September 15, 2024 End: September 15, 2024 Dr. Stevenson Hernández MD Attending Provider Active S tart: September 15, 2024 End: September 15, 2024 Team Status: Inactive Member Role Status Dates [facility] , [employer] Primary Care Provider Active Start: September 19, 2024 End: September 19, 2024 Dr. Bill Colon MD Attending Provider Active Start: September 19, 2024 End: September 19, 2024 Dr. Bill Colon MD Referring Provider Active Start: September 19, 2024 End: September 19, 2024 Team Status: Inactive Member Role Status Dates [facility] , [employer] Primary Care Provider Active Start: September 21, 2024 End: September 21, 2024 [facility] , [employer] Referring Provider Active St art: September 21, 2024 End: September 21, 2024 Dr. Bill Colon MD Attending Provider Active Start: September 21, 2024 End: September 21, 2024 Team Status: Active Member Role Status Dates [facility] , [employer] Primary Care Provider Active Start: November 02, 2024 End: November 02, 2024 Dr. Stevenson Hernández MD Attending Provider Active S tart: November 02, 2024 End: November 02, 2024 Dr. Bill Colon MD Referring Provider Active Start: November 02, 2024 End: November 02, 2024 Team Status: Inactive Member Role Status Dates [facility] , [employer] Primary Care Provider Active Start: November 03, 2024 End: November 03, 2024 Trinity Coronado , [employer] Referring Provider Active St art: November 03, 2024 End: November 03, 2024 Dr. Bill Colon MD Attending Provider Active Start: November 03, 2024 End: November 03, 2024 Team Status: Inactive Member Role Status Dates Trinity Coronado , [employer] Primary Care Provider Active Start: November 09, 2024 End: November 09, 2024 Trinity Coronado [employer] Attending Provider Active St art: November 09, 2024 End: November 09, 2024 Team Status: Active Member Role Status Dates Trinity Coronado , [employer] Primary Care Provider Active Start: November 13, 2024 Dr. Rita Garcia DO Attending Provider Active Start: November 13, 2024 Team Status: Inactive Member Role Status Dates Trinity Coronado , [employer] Primary Care Provider Active Start: November 13, 2024 End: November 13, 2024 Dr. Rita Garcia DO Attending Provider Active Start: November 13, 2024 End: November 13, 2024 Team Status: Inactive Member Role Status Dates Trinity Coronado , [employer] Primary Care Provider Active Start: November 22, 2024 End: November 22, 2024 Dr. Rita Garcia DO Attending Provider Active Start: November 22, 2024 End: November 22, 2024 Dr. Rita Garcia DO Referring Provider Active Start: November 22, 2024 End: November 22, 2024 Team Status: Inactive Member Role Status Dates Trinity Coronado , [employer] Primary Care Provider Active Start: November 27, 2024 End: November 29, 2024 Dr. Bill Colon MD Admit Provider Active Star t: November 27, 2024 End: November 29, 2024 Dr. Bill Colon MD Attending Provider Active Start: November 27, 2024 End: November 29, 2024 Dr. Bill Colon MD Referring Provider Active Start: November 27, 2024 End: November 29, 2024 Dr. Lilly Owens MD Other Provider Active Star t: November 27, 2024 End: November 29, 2024 Dr. Jeanne Pressley DO Other Provider Active Start : November 27, 2024 End: November 29, 2024 Team Status: Active Member Role Status Dates rTinity Coronado , [employer] Primary Care Provider Active Start: November 27, 2024 Dr. Bill Colon MD Admit Provider Active Star t: November 27, 2024 Dr. Bill Colon MD Attending Provider Active Start: November 27, 2024 Dr. Bill Colon MD Referring Provider Active Start: November 27, 2024 Dr. Bill Colon MD Other Provider Active Star t: November 27, 2024 Team Status: Active Member Role Status Dates Trinity Coronado , [employer] Primary Care Provider Active Start: November 27, 2024 Dr. Bill Colon MD Admit Provider Active Star t: November 27, 2024 Dr. Bill Colon MD Referring Provider Active Start: November 27, 2024 Dr. Bill Colon MD Other Provider Active Star t: November 27, 2024 Dr. Lilly Owens MD Attending Provider Active Start: November 27, 2024 Dr. Lilly Owens MD Other Provider Active Star t: November 27, 2024 Team Status: Active Member Role Status Dates Trinity Coronado [employer] Primary Care Provider Active Start: November 28, 2024 Dr. Bill Colon MD Admit Provider Active Star t: November 28, 2024 Dr. Bill Colon MD Referring Provider Active Start: November 28, 2024 Dr. Bill Colon MD Other Provider Active Star t: November 28, 2024 Dr. Lilly Owens MD Other Provider Active Star t: November 28, 2024 Dr. Jeanne Pressley DO Attending Provider Active S tart: November 28, 2024 Dr. Jeanne Pressley DO Other Provider Active Start : November 28, 2024 Team Status: Active Member Role Status Dates Trinity Coronado NP-C Primary Care Provider Active Start: November 28, 2024 Dr. Bill Colon MD Admit Provider Active Star t: November 28, 2024 Dr. Bill Colon MD Referring Provider Active Start: November 28, 2024 Dr. Bill Colon MD Other Provider Active Star t: November 28, 2024 Dr. Lilly Owens MD Other Provider Active Star t: November 28, 2024 Dr. Jeanne Pressley DO Other Provider Active Start : November 28, 2024 AZAR Muller Attending Provider Active Star t: November 28, 2024 Team Status: Active Member Role Status Dates Trinity Coronado NP-C Primary Care Provider Active Start: November 29, 2024 Dr. Bill Colon MD Admit Provider Active Star t: November 29, 2024 Dr. Bill Colon MD Referring Provider Active Start: November 29, 2024 Dr. Bill Colon MD Other Provider Active Star t: November 29, 2024 Dr. Lilly Owens MD Other Provider Active Star t: November 29, 2024 Dr. Jeanne Pressley DO Other Provider Active Start : November 29, 2024 AZAR Muller Attending Provider Active Star t: November 29, 2024 Team Status: Active Member Role Status Dates Trinity Coronado [employer] Primary Care Provider Active Start: November 28, 2024 Dr. Bill Colon MD Admit Provider Active Star t: November 28, 2024 Dr. Bill Colon MD Other Provider Active Star t: November 28, 2024 Dr. Lilly Owens MD Other Provider Active Star t: November 28, 2024 Dr. Jeanne Pressley DO Attending Provider Active S tart: November 28, 2024 Dr. Jeanne Pressley DO Other Provider Active Start : November 28, 2024 Team Status: Inactive Member Role Status Dates Trinity Coronado [employer] Primary Care Provider Active Start: December 01, 2024 End: December 02, 2024 Rolf Donovan MD Referring Provider Active Star t: December 01, 2024 End: December 02, 2024 Rolf Donovan MD Emergency Provider Active Star t: December 01, 2024 End: December 02, 2024 Supervising Architect Relationship Specialty Start Date End Date Trinity Coronado NP [address] [place] [address] PCP - General Family Medicine 12/05/24 Team Status: Active Member Role Status Dates Trinity Coronado [employer] Primary Care Provider Active Start: November 27, 2024 Dr. Bill Colon MD Admit Provider Active Star t: November 27, 2024 Dr. Bill Colon MD Referring Provider Active Start: November 27, 2024 Dr. Bill Colon MD Other Provider Active Star t: November 27, 2024 Dr. Lilly Owens MD Other Provider Active Star t: November 27, 2024 Dr. Jeanne Pressley DO Other Provider Active Start : November 27, 2024 AZAR Muller Attending Provider Active Star t: November 27, 2024 Team Status: Inactive Member Role Status Dates Trinity Coronado [employer] Primary Care Provider Active Start: December 01, 2024 End: December 02, 2024 Rolf Donovan MD Attending Provider Active Star t: December 01, 2024 End: December 02, 2024 Rolf Donovan MD Referring Provider Active Star t: December 01, 2024 End: December 02, 2024 Rolf Donovan MD Emergency Provider Active Star t: December 01, 2024 End: December 02, 2024 Team Status: Active Member Role Status Dates Trinity Coronado , [employer] Primary Care Provider Active Start: December 02, 2024 Rolf Donovan MD Referring Provider Active Star t: December 02, 2024 Rolf Donovan MD Emergency Provider Active Star t: December 02, 2024 Dr. Zahira Smith MD Attending Provider Active Start: December 02, 2024 Team Status: Inactive Member Role Status Dates Trinitylisette Coronado , [employer] Primary Care Provider Active Start: December 26, 2024 End: January 03, 2025 Dr. Arnulfo Londono MD Admit Provider Active Star t: December 26, 2024 End: January 03, 2025 Dr. Arnulfo Londono MD Attending Provider Active Start: December 26, 2024 End: January 03, 2025 Team Status: Active Member Role Status Dates Trinitylisette Coronado , [employer] Primary Care Provider Active Start: January 03, 2025 Dr. Wayne Madsen MD Emergency Provider Active S tart: January 03, 2025 Team Status: Active Member Role Status Dates Trinity Coronado , [employer] Primary Care Provider Active Start: January 03, 2025 Dr. Wayne Madsen MD Emergency Provider Active S tart: January 03, 2025 Dr. Jeremy Faith DO Admit Provider Active Start: January 03, 2025 Dr. Jeremy Faith DO Attending Provider Active Start: January 03, 2025 Team Status: Inactive Member Role Status Dates Trinity Coronado , [employer] Primary Care Provider Active Start: January 03, 2025 End: January 07, 2025 Dr. Wayne Madsen MD Emergency Provider Active S tart: January 03, 2025 End: January 07, 2025 Dr. Jeremy Faith DO Admit Provider Active Start: January 03, 2025 End: January 07, 2025 Dr. Jeremy Faith DO Attending Provider Active Start: January 03, 2025 End: January 07, 2025 Dr. Len Wilson MD Other Provider Active Start: January 03, 2025 End: January 07, 2025 Team Status: Active Member Role Status Dates Trinity Coronado , [employer] Primary Care Provider Active Start: January 04, 2025 Dr. Wayne Madsen MD Emergency Provider Active S tart: January 04, 2025 Dr. Jeremy Faith DO Admit Provider Active Start: January 04, 2025 Dr. Jeremy Faith DO Attending Provider Active Start: January 04, 2025 Dr. Jeremy Faith DO Other Provider Active Start: January 04, 2025 Team Status: Active Member Role Status Dates Trinity Coronado , [employer] Primary Care Provider Active Start: January 05, 2025 Dr. Wayne Madsen MD Emergency Provider Active S tart: January 05, 2025 Dr. Jeremy Faith DO Admit Provider Active Start: January 05, 2025 Dr. Jeremy Faith DO Attending Provider Active Start: January 05, 2025 Dr. Jeremy Faith DO Other Provider Active Start: January 05, 2025 Dr. Len Wilson MD Other Provider Active Start: January 05, 2025 Team Status: Active Member Role Status Dates Trinity Coronado [employer] Primary Care Provider Active Start: January 06, 2025 Dr. Wayne Madsen MD Emergency Provider Active S tart: January 06, 2025 Dr. Jeremy Faith DO Admit Provider Active Start: January 06, 2025 Dr. Jeremy Faith DO Attending Provider Active Start: January 06, 2025 Dr. Jeremy Faith DO Other Provider Active Start: January 06, 2025 Dr. Len Wilson MD Other Provider Active Start: January 06, 2025 Team Status: Active Member Role Status Dates Trinity Coronado , [employer] Primary Care Provider Active Start: January 07, 2025 Dr. Wayne Madsen MD Emergency Provider Active S tart: January 07, 2025 Dr. Jeremy Faith DO Admit Provider Active Start: January 07, 2025 Dr. Jeremy Faith DO Attending Provider Active Start: January 07, 2025 Dr. Jeremy Faith DO Other Provider Active Start: January 07, 2025 Dr. Len Wilson MD Other Provider Active Start: January 07, 2025 Supervising Architect Relationship Specialty Start Date End Date Trinity Coronado NP [address] [facility] [place] [address] PCP - General Family Medicine 12/05/24 Supervising Architect Relationship Specialty Start Date End Date Trinity Coronado, [employer] [address] [place] [address] PCP - General Family Medicine 12/05/24 Supervising Architect Relationship Specialty Start Date End Date Trniity Coronado [employer] [address] [place] [address] PCP - General Family Medicine 12/05/24 Team Status: Active Member Role/Relationship Status Dates Trinity Coronado , [employer] Primary Care Provider Active Team Status: Active Member Role/Relationship Status Dates Trinity Coronado , [employer] Primary Care Provider Active Start: November 02, 2024 End: November 02, 2024 Dr. Stevenson Hernández MD Attending Provider Active S tart: November 02, 2024 End: November 02, 2024 Dr. Bill Colon MD Referring Provider Active Start: November 02, 2024 End: November 02, 2024 Team Status: Inactive Member Role/Relationship Status Dates Trinity Coronado , [employer] Primary Care Provider Active Start: November 03, 2024 End: November 03, 2024 Trinity Coronado , [employer] Referring Provider Active St art: November 03, 2024 End: November 03, 2024 Dr. Bill Colon MD Attending Provider Active Start: November 03, 2024 End: November 03, 2024 Team Status: Inactive Member Role/Relationship Status Dates Trinity Coronado , [employer] Primary Care Provider Active Start: November 09, 2024 End: November 09, 2024 Trinity Coronado , [employer] Attending Provider Active St art: November 09, 2024 End: November 09, 2024 Team Status: Inactive Member Role/Relationship Status Dates Trinity Coronado , [employer] Primary Care Provider Active Start: November 13, 2024 End: November 13, 2024 Dr. Rita Garcia DO Attending Provider Active Start: November 13, 2024 End: November 13, 2024 Team Status: Inactive Member Role/Relationship Status Dates Trinity Coronado , [employer] Primary Care Provider Active Start: November 22, 2024 End: November 22, 2024 Dr. Rita Garcia DO Attending Provider Active Start: November 22, 2024 End: November 22, 2024 Dr. Rita aGrcia DO Referring Provider Active Start: November 22, 2024 End: November 22, 2024 Team Status: Active Member Role/Relationship Status Dates Trinity Coronado [employer] Primary Care Provider Active Start: November 27, 2024 Dr. Bill Colon MD Admit Provider Active Star t: November 27, 2024 Dr. Bill Colon MD Attending Provider Active Start: November 27, 2024 Dr. Bill Colon MD Referring Provider Active Start: November 27, 2024 Dr. Bill Colon MD Other Provider Active Star t: November 27, 2024 Team Status: Inactive Member Role/Relationship Status Dates Trinity Coronado [employer] Primary Care Provider Active Start: November 27, 2024 End: November 29, 2024 Dr. Bill Colon MD Admit Provider Active Star t: November 27, 2024 End: November 29, 2024 Dr. Bill Colon MD Attending Provider Active Start: November 27, 2024 End: November 29, 2024 Dr. Bill Colon MD Referring Provider Active Start: November 27, 2024 End: November 29, 2024 Dr. Lilly Owens MD Other Provider Active Star t: November 27, 2024 End: November 29, 2024 Dr. Jeanne Pressley DO Other Provider Active Start : November 27, 2024 End: November 29, 2024 Team Status: Active Member Role/Relationship Status Dates Trinity Coronado [employer] Primary Care Provider Active Start: November 27, 2024 Dr. Bill Colon MD Admit Provider Active Star t: November 27, 2024 Dr. Bill Colon MD Referring Provider Active Start: November 27, 2024 Dr. Bill Colon MD Other Provider Active Star t: November 27, 2024 Dr. Lilly Owens MD Other Provider Active Star t: November 27, 2024 Dr. Jeanne Pressley DO Other Provider Active Start : November 27, 2024 AZAR Muller Attending Provider Active Star t: November 27, 2024 Team Status: Active Member Role/Relationship Status Dates Trinity Coronado [employer] Primary Care Provider Active Start: November 27, 2024 Dr. Bill Colon MD Admit Provider Active Star t: November 27, 2024 Dr. Bill Colon MD Referring Provider Active Start: November 27, 2024 Dr. Bill Colon MD Other Provider Active Star t: November 27, 2024 Dr. Lilly Owens MD Attending Provider Active Start: November 27, 2024 Dr. Lilly Owens MD Other Provider Active Star t: November 27, 2024 Team Status: Active Member Role/Relationship Status Dates Trinity Coronado [employer] Primary Care Provider Active Start: November 28, 2024 Dr. Bill Colon MD Admit Provider Active Star t: November 28, 2024 Dr. Bill Colon MD Other Provider Active Star t: November 28, 2024 Dr. Lilly Owens MD Other Provider Active Star t: November 28, 2024 Dr. Jeanne Pressley DO Attending Provider Active S tart: November 28, 2024 Dr. Jeanne Pressley DO Other Provider Active Start : November 28, 2024 Team Status: Active Member Role/Relationship Status Dates Trinity Coronado [employer] Primary Care Provider Active Start: November 29, 2024 Dr. Bill Colon MD Admit Provider Active Star t: November 29, 2024 Dr. Bill Colon MD Referring Provider Active Start: November 29, 2024 Dr. Bill Colon MD Other Provider Active Star t: November 29, 2024 Dr. Lilly Owens MD Other Provider Active Star t: November 29, 2024 Dr. Jeanne Pressley DO Other Provider Active Start : November 29, 2024 AZAR Muller Attending Provider Active Star t: November 29, 2024 Team Status: Inactive Member Role/Relationship Status Dates Trinity Coronado [employer] Primary Care Provider Active Start: December 01, 2024 End: December 02, 2024 Rolf Donovan MD Attending Provider Active Star t: December 01, 2024 End: December 02, 2024 Rolf Donovan MD Referring Provider Active Star t: December 01, 2024 End: December 02, 2024 Rolf Donovan MD Emergency Provider Active Star t: December 01, 2024 End: December 02, 2024 Team Status: Active Member Role/Relationship Status Dates Trinity Coronado [employer] Primary Care Provider Active Start: December 02, 2024 Rolf Donovan MD Referring Provider Active Star t: December 02, 2024 Rolf Donovan MD Emergency Provider Active Star t: December 02, 2024 Dr. Zahira Smith MD Attending Provider Active Start: December 02, 2024 Team Status: Inactive Member Role/Relationship Status Dates Trinity Dajuan , [employer] Primary Care Provider Active Start: December 26, 2024 End: January 03, 2025 Dr. Arnulfo Londono MD Admit Provider Active Star t: December 26, 2024 End: January 03, 2025 Dr. Arnulfo Londono MD Attending Provider Active Start: December 26, 2024 End: January 03, 2025 Team Status: Inactive Member Role/Relationship Status Dates Trinitylisette Coronado , [employer] Primary Care Provider Active Start: January 03, 2025 End: January 07, 2025 Dr. Wayne Madsen MD Emergency Provider Active S tart: January 03, 2025 End: January 07, 2025 Dr. Jeremy Faith DO Admit Provider Active Start: January 03, 2025 End: January 07, 2025 Dr. Jeremy Faith DO Attending Provider Active Start: January 03, 2025 End: January 07, 2025 Dr. Len Wilson MD Other Provider Active Start: January 03, 2025 End: January 07, 2025 Team Status: Active Member Role/Relationship Status Dates Trinitylisette Coronado , [employer] Primary Care Provider Active Start: January 03, 2025 End: January 03, 2025 Dr. Zahira Ruggiero MD Attending Provider Active Start: January 03, 2025 End: January 03, 2025 Dr. Zahira Ruggiero MD Referring Provider Active Start: January 03, 2025 End: January 03, 2025 Team Status: Active Member Role/Relationship Status Dates Trinity Coronado , [employer] Primary Care Provider Active Start: January 04, 2025 Dr. Wayne Madsen MD Emergency Provider Active S tart: January 04, 2025 Dr. Jeremy Faith DO Admit Provider Active Start: January 04, 2025 Dr. Jeremy Faith DO Attending Provider Active Start: January 04, 2025 Dr. Jeremy Faith DO Other Provider Active Start: January 04, 2025 Team Status: Active Member Role/Relationship Status Dates Trinity Coronado , [employer] Primary Care Provider Active Start: January 05, 2025 Dr. Wayne Madsen MD Emergency Provider Active S tart: January 05, 2025 Dr. Jeremy Faith DO Admit Provider Active Start: January 05, 2025 Dr. Jeremy Faith DO Attending Provider Active Start: January 05, 2025 Dr. Jeremy Faith DO Other Provider Active Start: January 05, 2025 Dr. Len Wilson MD Other Provider Active Start: January 05, 2025 Team Status: Active Member Role/Relationship Status Dates Trinity Coronado [employer] Primary Care Provider Active Start: January 06, 2025 Dr. Wayne Madsen MD Emergency Provider Active S tart: January 06, 2025 Dr. Jeremy Faith DO Admit Provider Active Start: January 06, 2025 Dr. Jeremy Faith DO Attending Provider Active Start: January 06, 2025 Dr. Jeremy Faith DO Other Provider Active Start: January 06, 2025 Dr. Len Wilson MD Other Provider Active Start: January 06, 2025 Team Status: Active Member Role/Relationship Status Dates Trinity Coronado [employer] Primary Care Provider Active Start: January 07, 2025 End: January 07, 2025 Dr. Stevenson Hernández MD Attending Provider Active S tart: January 07, 2025 End: January 07, 2025 Dr. Stevenson Hernández MD Referring Provider Active S tart: January 07, 2025 End: January 07, 2025 Team Status: Active Member Role/Relationship Status Dates Trinity Coronado , [employer] Primary Care Provider Active Start: January 07, 2025 Dr. Wayne Madsen MD Emergency Provider Active S tart: January 07, 2025 Dr. Jeremy Faith DO Admit Provider Active Start: January 07, 2025 Dr. Jeremy Faith DO Attending Provider Active Start: January 07, 2025 Dr. Jeremy Faith DO Other Provider Active Start: January 07, 2025 Dr. Len Wilson MD Other Provider Active Start: January 07, 2025 Team Status: Inactive Member Role/Relationship Status Dates Trinity Coronado , [employer] Primary Care Provider Active Start: January 11, 2025 End: February 03, 2025 Dr. Marie Patino DO Admit Provider Active Start: January 11, 2025 End: February 03, 2025 Dr. Marie Patino , DO Attending Provider Act jacob Start: January 11, 2025 End: February 03, 2025 Dr. Marie Patino DO Referring Provider Act jacob Start: January 11, 2025 End: February 03, 2025 Dr. Judson Matute DO Other Provider Active St art: January 11, 2025 End: February 03, 2025 Dr. Len Wilson MD Other Provider Active Start: January 11, 2025 End: February 03, 2025 Team Status: Active Member Role/Relationship Status Dates Trinity Coronado NP-C Primary Care Provider Active Start: January 11, 2025 Dr. Marie Patino , Admit Provider Active Start: January 11, 2025 Dr. Marie Patino DO Attending Provider Act jacob Start: January 11, 2025 Dr. Marie Patino DO Other Provider Active Start: January 11, 2025 Team Status: Active Member Role/Relationship Status Dates Trinity Coronado NP-C Primary Care Provider Active Start: January 12, 2025 Dr. Marie Patino DO Admit Provider Active Start: January 12, 2025 Dr. Marie Patino DO Attending Provider Act jacob Start: January 12, 2025 Dr. Marie Patino DO Other Provider Active Start: January 12, 2025 Team Status: Active Member Role/Relationship Status Dates Trinity Coronado NP-C Primary Care Provider Active Start: January 15, 2025 Dr. Marie Patino DO Admit Provider Active Start: January 15, 2025 Dr. Marie Patino DO Attending Provider Act jacob Start: January 15, 2025 Dr. Marie Patino DO Other Provider Active Start: January 15, 2025 Team Status: Active Member Role/Relationship Status Dates Trinity Coronado NP-C Primary Care Provider Active Start: January 16, 2025 Dr. Marie Patino DO Admit Provider Active Start: January 16, 2025 Dr. Marie Patino DO Attending Provider Act jacob Start: January 16, 2025 Dr. Marie Patino DO Other Provider Active Start: January 16, 2025 Team Status: Active Member Role/Relationship Status Dates Trinity Coronado NP-C Primary Care Provider Active Start: January 16, 2025 Dr. Marie Patino , DO Admit Provider Active Start: January 16, 2025 Dr. Marie Patino , DO Referring Provider Act jacob Start: January 16, 2025 Dr. Marie Patino , DO Other Provider Active Start: January 16, 2025 Dr. Judson Matute , DO Other Provider Active St art: January 16, 2025 Dr. Bill Colon MD Attending Provider Active Start: January 16, 2025 Team Status: Active Member Role/Relationship Status Dates Trinity Coronado NP-C Primary Care Provider Active Start: January 16, 2025 Dr. Marie Patino , DO Admit Provider Active Start: January 16, 2025 Dr. Marie Patino , DO Referring Provider Act jacob Start: January 16, 2025 Dr. Marie Patino , DO Other Provider Active Start: January 16, 2025 Dr. Judson Matute , DO Attending Provider Active Start: January 16, 2025 Dr. Judson Matute , DO Other Provider Active St art: January 16, 2025 Team Status: Active Member Role/Relationship Status Dates Trinity Coronado NP-C Primary Care Provider Active Start: January 17, 2025 Dr. Wayne Madsen MD Emergency Provider Active S tart: January 17, 2025 Dr. Jeremy Faith , DO Admit Provider Active Start: January 17, 2025 Dr. Jeremy Faith , DO Attending Provider Active Start: January 17, 2025 Dr. Jeremy Faith , DO Other Provider Active Start: January 17, 2025 Dr. Len Wilson MD Other Provider Active Start: January 17, 2025 Team Status: Active Member Role/Relationship Status Dates Trinity Coronado NP-C Primary Care Provider Active Start: January 18, 2025 Dr. Marie Patino , DO Admit Provider Active Start: January 18, 2025 Dr. Marie Patino DO Attending Provider Act jacob Start: January 18, 2025 Dr. Marie Patino , DO Other Provider Active Start: January 18, 2025 Dr. Judson Matute , DO Other Provider Active St art: January 18, 2025 Team Status: Active Member Role/Relationship Status Dates Trinity Coronado NP-C Primary Care Provider Active Start: January 19, 2025 Dr. Marie Patino , DO Admit Provider Active Start: January 19, 2025 Dr. Marie Patino , DO Attending Provider Act jacob Start: January 19, 2025 Dr. Marie Patino , DO Other Provider Active Start: January 19, 2025 Dr. Judson Matute , DO Other Provider Active St art: January 19, 2025 Team Status: Active Member Role/Relationship Status Dates Trinity Coronado NP-C Primary Care Provider Active Start: January 22, 2025 Dr. Marie Patino , DO Admit Provider Active Start: January 22, 2025 Dr. Marie Patino , DO Attending Provider Act jacob Start: January 22, 2025 Dr. Marie Patino , DO Other Provider Active Start: January 22, 2025 Dr. Judson Matute , DO Other Provider Active St art: January 22, 2025 Team Status: Active Member Role/Relationship Status Dates Trinity Coronado NP-C Primary Care Provider Active Start: January 23, 2025 Dr. Marie Patino , DO Admit Provider Active Start: January 23, 2025 Dr. Marie Patino , DO Attending Provider Act jacob Start: January 23, 2025 Dr. Marie Patino , DO Other Provider Active Start: January 23, 2025 Dr. Judson Matute , DO Other Provider Active St art: January 23, 2025 Team Status: Active Member Role/Relationship Status Dates Trinity Coronado NP-C Primary Care Provider Active Start: January 24, 2025 Dr. Marie Patino , DO Admit Provider Active Start: January 24, 2025 Dr. Marie Patino , DO Attending Provider Act jacob Start: January 24, 2025 Dr. Marie Patino , DO Other Provider Active Start: January 24, 2025 Dr. Judson Mautte , DO Other Provider Active St art: January 24, 2025 Team Status: Active Member Role/Relationship Status Dates Trinity Coronado NP-C Primary Care Provider Active Start: January 25, 2025 Dr. Marie Patino , DO Admit Provider Active Start: January 25, 2025 Dr. Marie Patino , DO Attending Provider Act jacob Start: January 25, 2025 Dr. Marie Patino , DO Other Provider Active Start: January 25, 2025 Dr. Judson Matute , DO Other Provider Active St art: January 25, 2025 Team Status: Active Member Role/Relationship Status Dates DEANNA Franklin Primary Care Provider Active Start: January 29, 2025 Dr. Marie Patino , DO Admit Provider Active Start: January 29, 2025 Dr. Marie Patino , DO Attending Provider Act jacob Start: January 29, 2025 Dr. Marie Patino , DO Referring Provider Act jacob Start: January 29, 2025 Dr. Marie Patino , DO Other Provider Active Start: January 29, 2025 Dr. Judson Matute , DO Other Provider Active St art: January 29, 2025 Team Status: Active Member Role/Relationship Status Dates DEANNA Franklin Primary Care Provider Active Start: January 30, 2025 Dr. Marie Patino , DO Admit Provider Active Start: January 30, 2025 Dr. Marie Patino , DO Attending Provider Act jacob Start: January 30, 2025 Dr. Marie Patino , DO Referring Provider Act jacob Start: January 30, 2025 Dr. Marie Patino , DO Other Provider Active Start: January 30, 2025 Dr. Judson Matute , DO Other Provider Active St art: January 30, 2025 Team Status: Active Member Role/Relationship Status Dates DEANNA Franklin Primary Care Provider Active Start: January 31, 2025 Dr. Marie Patino , DO Admit Provider Active Start: January 31, 2025 Dr. Marie Patino , DO Attending Provider Act jacob Start: January 31, 2025 Dr. Marie Patino , DO Referring Provider Act jacob Start: January 31, 2025 Dr. Marie Patino , DO Other Provider Active Start: January 31, 2025 Dr. Judson Matute , DO Other Provider Active St art: January 31, 2025 Team Status: Active Member Role/Relationship Status Dates Trinity Dajuan , [employer]-C Primary Care Provider Active Start: February 01, 2025 Dr. Marie Patino , DO Admit Provider Active Start: February 01, 2025 Dr. Marie Patino , DO Attending Provider Act jacob Start: February 01, 2025 Dr. Marie Patino , DO Referring Provider Act jacob Start: February 01, 2025 Dr. Marie Patino , DO Other Provider Active Start: February 01, 2025 Dr. Judson Matute , DO Other Provider Active St art: February 01, 2025 Team Status: Active Member Role/Relationship Status Dates Trinity Coronado NP-C Primary Care Provider Active Start: February 02, 2025 Dr. Marie Patino , DO Admit Provider Active Start: February 02, 2025 Dr. Marie Patino , DO Attending Provider Act jacob Start: February 02, 2025 Dr. Marie Patino , DO Referring Provider Act jacob Start: February 02, 2025 Dr. Marie Patino , DO Other Provider Active Start: February 02, 2025 Dr. Judson Matute , DO Other Provider Active St art: February 02, 2025 Dr. Len Wilson MD Other Provider Active Start: February 02, 2025 Supervising Architect Relationship Specialty Start Date End Date Trinity Coronado NP [facility] [place] [address] PCP - General Family Medicine 12/05/24 Supervising Architect Relationship Specialty Start Date End Date Trinity Coronado NP [address] [place] [id number] PCP - General Family Medicine 12/05/24 Team Status: Active Member Role/Relationship Status Dates Trinity Coronado NP-C Primary Care Provider Active Start: January 29, 2025 Dr. Marie Patino , DO Admit Provider Active Start: January 29, 2025 Dr. Marie Patino , DO Attending Provider Act jacob Start: January 29, 2025 Dr. Marie Patino , DO Other Provider Active Start: January 29, 2025 Dr. Judson Matute , DO Other Provider Active St art: January 29, 2025 Team Status: Active Member Role/Relationship Status Dates DEANNA Franklin Primary Care Provider Active Start: January 30, 2025 Dr. Marie Patino , DO Admit Provider Active Start: January 30, 2025 Dr. Marie Patino , DO Attending Provider Act jacob Start: January 30, 2025 Dr. Marie Patino , DO Other Provider Active Start: January 30, 2025 Dr. Judson Matute , DO Other Provider Active St art: January 30, 2025 Team Status: Active Member Role/Relationship Status Dates DEANNA Franklin Primary Care Provider Active Start: January 31, 2025 Dr. Marie Patino , DO Admit Provider Active Start: January 31, 2025 Dr. Marie Patino , DO Attending Provider Act jacob Start: January 31, 2025 Dr. Marie Patino , DO Other Provider Active Start: January 31, 2025 Dr. Judson Matute , DO Other Provider Active St art: January 31, 2025 Team Status: Active Member Role/Relationship Status Dates DEANNA Franklin Primary Care Provider Active Start: February 01, 2025 Dr. Marie Patino , DO Admit Provider Active Start: February 01, 2025 Dr. Marie Patino , DO Attending Provider Act jacob Start: February 01, 2025 Dr. Marie Patino , DO Other Provider Active Start: February 01, 2025 Dr. Judson Matute , DO Other Provider Active St art: February 01, 2025 Team Status: Active Member Role/Relationship Status Dates DEANNA Franklin Primary Care Provider Active Start: February 02, 2025 Dr. Marie Patino , DO Admit Provider Active Start: February 02, 2025 Dr. Marie Patino , DO Attending Provider Act jacob Start: February 02, 2025 Dr. Marie Patino , DO Other Provider Active Start: February 02, 2025 Dr. Judson Matute , DO Other Provider Active St art: February 02, 2025 Dr. Len Wilson MD Other Provider Active Start: February 02, 2025 Team Status: Inactive Member Role/Relationship Status Dates DEANNA Franklin Primary Care Provider Active Start: February 12, 2025 End: February 12, 2025 DEANNA Franklin Attending Provider Active St art: February 12, 2025 End: February 12, 2025 DEANNA Franklin Referring Provider Active St art: February 12, 2025 End: February 12, 2025 Goals (unrecognized section and content) Goals may be documented in a n alternate sectionGoals may be documented in an alternate sectionGoals may be documented in an alternate sectionGoals may be documented in an alternate sectionGoals may be documented in an alternate sectionGoals may be documented in an alternate sectionGoals may be documented in an alternate sectionGoals may be documented in an alternate section Source Comments (unrecognize d section and content) In the event this informatio n is protected by the Federal Confidentiality of Alcohol and Drug Abuse Patient Records regulations: The Federal rules restrict any use of the information to criminally investigate or prosecute any alcohol or drug abuse patient.[facility] the event this information is protected by the Federal Confidentiality of Alcohol and Drug Abuse Patient Records regulations: The Federal rules restrict any use of the information to criminally investigate or prosecute any alcohol or drug abuse patient.[facility] the event this information is protected by the Federal Confidentiality of Alcohol and Drug Abuse Patient Records regulations: The Federal rules restrict any use of the information to criminally investigate or prosecute any alcohol or drug abuse patient.[facility] the event this information is protected by the Federal Confidentiality of Alcohol and Drug Abuse Patient Records regulations: The Federal rules restrict any use of the information to criminally investigate or prosecute any alcohol or drug abuse patient.[facility] the event this information is protected by the Federal Confidentiality of Alcohol and Drug Abuse Patient Records regulations: The Federal rules restrict any use of the information to criminally investigate or prosecute any alcohol or drug abuse patient.[facility] the event this information is protected by the Federal Confidentiality of Alcohol and Drug Abuse Patient Records regulations: The Federal rules restrict any use of the information to criminally investigate or prosecute any alcohol or drug abuse patient.[facility] Reason for Visit (unrecogniz ed section and content) Reason Comments Appointment 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 This clinical summary was aggregated from multiple sources. Caution should be exercised in using it in the provision of clinical care. This summary normalizes information from multiple sources, and as a consequence, information in this document may materially change the coding, format and clinical context of patient data. In addition, data may be omitted in some cases. CLINICAL DECISIONS SHOULD BE BASED ON THE PRIMARY CLINICAL RECORDS. [facility] [employer] [facility]. provides no warranty or guarantee of the accuracy or completeness of information in this document.
[2025-02-19 02:25] LABS: Allen Test Positive; Base Excess -3 mmol/L (-2 to +2); Comment 18/12 12 50%; FI02 50.0; PO2 80 mmHG (75-100); SITE R Radial; SO2 96 % (95-99)
--- NOTE | 2025-02-19 02:39 | CPS ---
[0236] Pt.'s BiPAP pressures titrated down a bit due to complaint of pressure being a bit too much for him at this time.
[2025-02-19 02:59] LABS: Anion Gap 13 (5-15); BUN 35 mg/dL (4-19); BUN/Creat Ratio 14.6 RATIO (10-20); Calcium,Total 9.2 mg/dL (7.6-11.0); Carbon Dioxide 20.4 mmol/L (21.0-32.0); Chloride 98 mmol/L (98-108); Estimated Creatinine Clearance 24.54 ml/min (50-250); Glucose 222 mg/dL (70-99); Potassium 5.7 mmol/L (3.3-5.1); Pro- Brain NATRIURETIC PEPTIDE 31310 pg/mL (<=1800); Troponin T High Sensitivity 99 ng/L (<=22)
[2025-02-19 04:57] LABS: Troponin T High Sens 2 HR 108 ng/L (<=22)
--- NOTE | 2025-02-19 05:48 | CPS ---
[0450] Pt. placed on 4L NC at this time due to improved respiratory status.
--- NOTE | 2025-02-19 05:57 | PCA ---
PT ACCEPTED @0657 TO [facility].
[2025-02-19 06:48] LABS: Potassium 5.3 mmol/L (3.3-5.1)
--- NOTE | 2025-02-19 07:18 | PCM.HP.STD ---
[facility] - [facility] Date of Admission: 02/19/25 Date of Service: 02/19/25 Chief Complaint: shortness of breath HPI Narrative SYD BARNETT, is a 79 M with a PMH as outlined who was admitted via the ED on 02/19/2025 with a complaint of shortness of breath which started on the night before admission. He said he was lying in his recliner where he usually sleeps and became acutely short of breath. He denied any chest pain or lower extremity swelling, palpitations, nausea or vomiting or any other symptoms. He denied having such shortness of breath happen in the past. Review of systems otherwise negative. He came into the ED in flash pulmonary edema and plan was to transfer him to [facility] for evaluation for TAVR. Patient was accepted at [facility] but there was no bed availability. [facility] subsequently tried to send him to [facility] but he was not accepted there so he has been admitted here pending transfer to [facility]. At time of my evaluation, patient was down to 4.5 L of oxygen. He still complain of shortness of breath though he denied any chest pain, palpitations, nausea or vomiting or any other such symptoms. Vitals in the ED where temperature of 98.4 Fahrenheit, blood pressure of 127/85, respiratory rate of 18 and he was saturating at 96% on the 4.5 L of oxygen. Chemistry showed WBC of 7.6, hemoglobin of 10.2 and platelets of 456. ABG done showed pH of 7.42 with PCO2 of 33.1 and PO2 of 80 he was on BiPAP at that time. Chemistry showed sodium of 132 with potassium of 5.3 and bicarb of 20.4. Creatinine was 2.37. proBNP was 31,310. Initial troponin was 99 and trended up slightly to 108. Chest x-ray showed interval development of pulmonary edema and EKG showed no acute ST changes. He has been admitted to be managed for acute hypoxic respiratory failure due to flash pulmonary edema in the setting of severe aortic stenosis. [facility] Medical History Left bundle branch block Cognitive dysfunction Dysphagia, oropharyngeal Myocardial infarction due to demand ischemia Left atrial enlargement Mild pulmonary hypertension Cardiomyopathy Other severe protein-calorie malnutrition History of diabetes mellitus Essential (primary) hypertension Diverticulosis Acute renal failure superimposed on stage 4 chronic kidney disease Diabetic polyneuropathy Iron deficiency anemia Irregular heart beat CKD (chronic kidney disease), stage IV Wears glasses Wears dentures BPH (benign prostatic hyperplasia) History of diverticulitis Former smoker Leg cramps History of echocardiogram Hypertrophic scar Carotid stenosis, left Sebaceous cyst Amaurosis fugax of right eye Sciatica Hyperlipidemia Osteoarthritis Hemorrhoid GERD (gastroesophageal reflux disease) HTN (hypertension) Home Medications ?Medication ?Instructions ?Recorded ?Last Taken ?Type aspirin 81 mg tablet,delayed 81 mg PO DAILY@0800 heart health 04/16/17 11/26/24 09:00 History release gabapentin 300 mg capsule 300 mg PO QHS PAIN 10/31/24 11/25/24 22:30 History acetaminophen 325 mg capsule 650 mg PO Q4H PRN fever or pain 01/11/25 Unknown History carvedilol 12.5 mg tablet 12.5 mg PO BIDCM #60 tabs 02/02/25 Unknown Rx fluticasone 232 mcg-salmeterol 14 1 inh inhalation Q12 #1 ea 02/02/25 Unknown Rx mcg/actuation breath activated powdr insulin aspart U-100 100 unit/mL 3 unit (0.03 mL) subcut TID #2 pens 02/02/25 Unknown Rx (3 mL) subcutaneous pen insulin glargine-yfgn 100 unit/mL 14 unit (0.14 mL) subcut 0700 #2 02/02/25 Unknown Rx (3 mL) subcutaneous pen pens ipratropium bromide 42 mcg (0.06 2 spray NASAL BID #1 BOTTLE 02/02/25 Unknown Rx %) nasal spray isosorbide dinitrate 10 mg tablet 10 mg PO TID@0700,1200,1700 #90 02/02/25 Unknown Rx tabs loperamide 2 mg capsule 4 mg (2 x 2 mg) PO Q6H #240 caps 02/02/25 Unknown Rx magnesium chloride 64 mg 64 mg PO BID #60 tabs 02/02/25 Unknown Rx (magnesium chloride) tablet,delayed release (Mag 64) mirtazapine 15 mg tablet 15 mg PO 2100 #30 tabs 02/02/25 Unknown Rx pantoprazole 40 mg tablet,delayed 40 mg PO BID #60 tabs 02/02/25 Unknown Rx release psyllium husk 3 gram oral powder 1 packet PO TID #90 ea 02/02/25 Unknown Rx packet (Daily Fiber (psyllium-aspartame)) simethicone 80 mg chewable tablet 80 mg PO PCHS #120 tabs 02/02/25 Unknown Rx sodium bicarbonate 650 mg tablet 650 mg PO TID #90 tabs 02/02/25 Unknown Rx furosemide 80 mg tablet (Lasix) 80 mg PO PRN PRN edema 02/19/25 Unknown History Allergy/AdvReac Type Severity Reaction Status Date / Time atorvastatin (From Lipitor) Allergy INTOLERANCE Verified 02/19/25 01:53 ezetimibe (From Zetia) Allergy MYALGIA Verified 02/19/25 01:53 pravastatin Allergy MYALGIAS Verified 02/19/25 01:53 simvastatin (From Zocor) Allergy INTOLERANCE Verified 02/19/25 01:53 sitagliptin (From Januvia) Allergy INTOLERANCE Verified 02/19/25 01:53 tetanus and diphtheria Allergy Rash Verified 02/19/25 01:53 toxoids ciprofloxacin (From Cipro) AdvReac Intermediate achilles Verified 02/19/25 01:53 tendonitis Arxhqap-CQQ-WhE Reductase AdvReac Other Verified 02/19/25 01:53 Inhibitor (Spbbefa-Asp-Umy Reductase Inhibitor) Family History Father Diabetes Heart disease Myocardial infarction Mother CAD (coronary artery disease) Arthritis Surgical History History of right-sided carotid endarterectomy H/O drainage of abscess History of lumbar fusion History of ileostomy History of right hemicolectomy History of right-sided carotid endarterectomy (~11/2017) History of umbilical hernia S/P ventral herniorrhaphy S/P inguinal hernia repair S/P colonoscopy Social History household members: spouse Smoking Status: Former smoker alcohol intake: never substance use type: does not use ROS Constitutional Constitutional: Reports fatigue, malaise and weakness; Denies anorexia, chills or fever(s) Eyes Eyes: Denies change in vision ENT HEENT: Denies dysphagia or headache(s) Cardiovascular Cardiovascular: Reports dyspnea on exertion, edema, orthopnea and paroxysmal nocturnal dyspnea; Denies chest pain, lightheadedness, palpitations, rapid heart rate or syncope Respiratory/Chest Respiratory/Chest: Reports cough, dyspnea, shortness of breath at rest and shortness of breath with exertion; Denies productive cough or wheezing Gastrointestinal Gastrointestinal: Denies abdominal pain, constipation, diarrhea, nausea or vomiting Genitourinary Genitourinary: Denies dysuria Neurologic Neurologic: Denies confusion, dizziness, focal weakness, headache(s), numbness or seizures Psychiatric Psychiatric: Denies anxiety or depression Vital Signs Vital Signs Vital Signs: 02/19/25 01:52 02/19/25 01:52 02/19/25 01:55 Temperature 97.3 F L Temperature Source Axillary Pulse Rate 125 H Respiratory Rate 29 H Respiratory Effort Short of Breath Respiratory Depth Deep Respiratory Pattern Tachypnea Blood Pressure 158/103 H Blood Pressure Mean 121 Pulse Ox 94 100 Oxygen Delivery Method Non-Rebreather Non-Rebreather Bi-pap Oxygen Flow Rate (L/min) 15 15 Fraction of Inspired Oxygen (FIO2) 70 02/19/25 02:00 02/19/25 02:22 02/19/25 02:30 Temperature Temperature Source Pulse Rate 119 H 113 H 111 H Respiratory Rate 25 H 21 H 24 H Respiratory Effort Respiratory Depth Respiratory Pattern Tachypnea Blood Pressure 150/82 H 129/79 H Blood Pressure Mean 104 95 Pulse Ox 100 98 94 Oxygen Delivery Method Bi-pap Bi-pap Oxygen Flow Rate (L/min) Fraction of Inspired Oxygen (FIO2) 100 70 02/19/25 02:36 02/19/25 03:00 02/19/25 03:30 Temperature Temperature Source Pulse Rate 110 H 100 97 Respiratory Rate 23 H 18 16 Respiratory Effort Respiratory Depth Respiratory Pattern Tachypnea Blood Pressure 120/69 118/69 Blood Pressure Mean 86 85 Pulse Ox 97 97 94 Oxygen Delivery Method Room Air Bi-pap Oxygen Flow Rate (L/min) Fraction of Inspired Oxygen (FIO2) 40 30 02/19/25 04:00 02/19/25 04:30 02/19/25 05:00 Temperature Temperature Source Pulse Rate 94 91 93 Respiratory Rate 17 16 16 Respiratory Effort Respiratory Depth Respiratory Pattern Blood Pressure 112/60 102/63 109/69 Blood Pressure Mean 77 76 82 Pulse Ox 95 95 95 Oxygen Delivery Method Bi-pap Bi-pap Nasal Cannula Oxygen Flow Rate (L/min) 4 Fraction of Inspired Oxygen (FIO2) 30 30 02/19/25 05:30 02/19/25 06:00 02/19/25 06:30 Temperature Temperature Source Pulse Rate 95 90 93 Respiratory Rate 17 17 18 Respiratory Effort Respiratory Depth Respiratory Pattern Blood Pressure 98/58 L 99/67 113/72 Blood Pressure Mean 71 77 85 Pulse Ox 93 96 96 Oxygen Delivery Method Nasal Cannula Nasal Cannula Nasal Cannula Oxygen Flow Rate (L/min) 3.5 3.5 3.5 Fraction of Inspired Oxygen (FIO2) 02/19/25 07:00 Temperature Temperature Source Pulse Rate 90 Respiratory Rate 18 Respiratory Effort Respiratory Depth Respiratory Pattern Blood Pressure 97/64 Blood Pressure Mean 75 Pulse Ox 98 Oxygen Delivery Method Nasal Cannula Oxygen Flow Rate (L/min) Fraction of Inspired Oxygen (FIO2) Weight Weight: 168 lb 13.985 oz Body Mass Index (BMI) 28.0 Physical Exam Const alert, oriented x3 and no apparent distress Constitutional Narrative: frail, weak General Appearance: cooperative HEENT normocephalic, head/scalp atraumatic and hearing grossly normal bilaterally HEENT Narrative: dry oral mucosa Mouth: moist mucous membranes abnormal Eyes EOMs intact bilaterally and conjunctivae normal Resp Resp Narrative: mildly diminished breath sounds bibasally, no wheezes or crackles. On 4.5L of oxygen by nasal cannula Cardio regular rate, regular rhythm, S1 normal heart sound and S2 normal heart sound Cardio Narrative: grade 3 ejection systolic murmur loudest at the aortic region. GI normal to inspection, nondistended, normoactive bowel sounds, soft to palpation and non-tender Extremity normal to inspection and full ROM Extremity Narrative: mild 1+ bipedal pitting edema Neuro oriented x3, CN's II-XII intact bilaterally and moves all extremities Sensorium / Orientation: awake and alert Motor Exam: strength 5/5 throughout Psych affect normal Results Lab / Micro Data 02/19/25 02:04 02/19/25 06:26 Labs: Laboratory Results - last 24 hr 02/19/25 02:04: WBC 7.6, RBC 3.51 L, Hgb 10.2 L, Hct 31.2 L, MCV 88.9, MCH 29.1, MCHC 32.7, RDW Std Deviation 46.6 H, RDW Coeff of Disha 14.6, Plt Count 456 H, MPV 10.3, Immature Gran % (Auto) 0.400, Neut % (Auto) 73.9 H, Lymph % (Auto) 14.4 L, [place] % (Auto) 8.3, Eos % (Auto) 1.8, Baso % (Auto) 1.2 H, Absolute Neuts (auto) 5.6, Absolute Lymphs (auto) 1.10, Nucleated RBC % 0, Sodium 132 L, Potassium 5.7 H, Chloride 98, Carbon Dioxide 20.4 L, Anion Gap 13, BUN 35 H, Creatinine 2.37 H, Estim Creat Clear Calc 24.54 L, Est GFR (MDRD) Non-Af 27 L, BUN/Creatinine Ratio 14.6, Glucose 222 H, Lactic Acid 1.2, Calcium 9.2, Troponin T High Sens 99 H*, [place] [address] H 02/19/25 04:15: Troponin T Hi Sens 2 Hr 108 H* 02/19/25 06:26: Potassium 5.3 H ABG Data ABG results: ABG 02/19/25 02:21 Specimen Type ART Sample Site R Radial pH 7.42 Bicarbonate Actual 21.6 L Total CO2 23 Base Excess -3 L O2 Saturation 96 O2 % 50.0 ABG pCO2 33.1 L ABG pO2 80 [place] Test Positive O2 Delivery Device BiPAP Vent Mode Not entered Clinical Comments 12/07 12 50% Rhythm Strip Rhythm Strip: Sinus Tach Rate: 115 Ectopy: None Imaging Radiology Impression Chest X-Ray 02/19/25 02:14 IMPRESSION: Interval development of a pulmonary edema pattern, severe pneumonia is a secondary consideration. Advise correlation. Reading Location: [place] [address] Assessment & Plan Assessment/Plan (1) Acute hyperkalemia: (2) Acute pulmonary edema: (3) Acute hypoxemic respiratory failure: (4) HAMMAD (acute kidney injury): PLAN: Plan #Acute hypoxic respiratory failure due to acute flash pulmonary edema in the setting of severe aortic stenosis Admit to PCU Admitted with a complaint of acute shortness of breath and chest x-ray showed interval development of pulmonary edema pattern. Does have severe aortic stenosis. Will diurese with IV Lasix 40 mg twice daily. Was initially on BiPAP but weaned down to 4.5 L of oxygen. Titrate oxygen to maintain saturation above 90%. Patient was accepted at [facility] but no bed availability. I did discuss with cardiology who stated that there was no need for active cardiology consult and to diurese patient get 2D echo #HAMMAD on CKD with hyperkalemia Creatinine was 2.37 on admission with a baseline creatinine of around 1.92. Likely due to the severe aortic stenosis and acute flash pulmonary edema. Should improve as shortness of breath improves Give a dose of Kayexalate #Elevated troponins: Initial troponin was 99 and subsequent troponin was 108. Likely due to demand ischemia from the acute hypoxic respiratory failure. EKG did not show any acute ST changes and he denies any chest pain. Will monitor for now and if any worsening of any chest pain will consult cardiology #History of COPD: Currently being managed for acute hypoxic respiratory failure as above. I do not think COPD exacerbation hot.. breathing treatment. #Ileostomy in situ Says he has a history of bowel obstruction s/p resection and he has ileostomy in situ. It contained soft to my examination. Stable DVT prophylaxis: heparin CODE STATUS: Full code Patient counseled extensively about different types of CODE STATUS including full code, DNR CCA and DNR CCA. Patient elects to be full code. Total [id number]-ry-[id number] time 16 minutes. Charges/Coding Visit Charges Inpatient E&M: 53622 Init Hosp L3 Procedures Hospitalists Procedures: 80370 Advncd Care Plan 30 Min
--- NOTE | 2025-02-19 07:33 | PCA ---
CALLED [facility] TO DISCUSS IMPROVEMENT. TRANSFER LINE SAID IT WILL STILL BE SEVERAL DAYS BEFORE A BED IS AVAILABLE AND THEY SUGGESTED JUST ADMITTING UNTIL A BED IS READY.
--- NOTE | 2025-02-19 08:32 | PCA ---
CALLED [facility] AND ASKED FOR AN UPDATE. CALLED [facility] TRANSFER LINE @ [phone] AND TALKED TO THEM ABOUT GELACIO. THEY WILL TALKED TO THE ICU DR AND CALLED BACK.
[2025-02-19] MEDS: Isosorbide DN 10 MG Tablet PO ×2 (12:28→18:34)
[2025-02-19] MEDS: Magnesium Chloride 64 MG Delay Rel.Tablet PO ×2 (12:30→22:43)
[2025-02-19] MEDS: 0.9% Saline Lock 10 ML Syringe IV ×2 (12:32→18:33)
[2025-02-19] MEDS: Psyllium 1 PACKET PO ×2 (15:10→22:43)
--- NOTE | 2025-02-19 15:38 | CHAPLAIN ---
Type of Pastoral Visit _x__ Initial Visit ___ Follow-up Visit ___ On-call Visit ___ General Patient Visit ___ Spiritual Assessment ___ Family Conference ___ Bereavement ___ Rapid Response ___ Code Blue ___ Other (describe below) Pastoral Care Referral From _x__ Patient ___ Family ___ Nurse ___ Physician ___ Sheep Sticker ___ Quality Assurance Tester ___ Other (describe below) Sacrament/Intervention _x__ Active listening ___ Anointing ___ Lutheran ___ Bereavement ___ Communion _x__ Cris exploration ___ ___ Life review _x__ Prayer ___ Reconciliation ___ Sacrament of Sick ___ Supportive presence ___ Wedding ___ Other (describe below) Pastoral Comments patient has been seen recently in several admissions; pt expresses 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
[2025-02-19] MEDS: Budesonide Respules 0.5 MG/2 ML AMPUL.NEB. INHALATION (19:15)
--- NOTE | 2025-02-19 20:38 | CPS ---
Patient refused PAP therapy for night time use
[2025-02-20] VITALS (16 sets, daily range): BP systolic 78–114; BP diastolic 33–67; PULSE 82–106; RESP 16–20; TEMP 36.3–37.2; O2SAT 92–98
[2025-02-20] MEDS: Psyllium 1 PACKET PO ×2 (04:12→20:55)
[2025-02-20 04:43] LABS: Hematocrit 29.9 % (40-54); Hemoglobin 10.0 g/dL (13.0-16.5); Immature Granulocytes Count 0.040 X10^3/uL (0.0-0.0); Mean Corp Hgb Conc 33.4 g/dL (32-36); Mean Corpuscular Volume 87.4 fL (80-94); Mean Platelet Vol. 10.0 fl (6.2-12.0); NRBC Flagged by Analyzer 0 % (0-5); Platelet Count 400 K/mm3 (150-450); RBC Distribution Width CV 14.2 % (11.6-14.6); RBC Distribution Width SD 45.8 fl (35.1-43.9); Red Blood Count 3.42 M/mm3 (4.6-6.2); White Blood Count 8.3 K/mm3 (4.4-11.0)
[2025-02-20 04:58] LABS: Anion Gap 16 (5-15); BUN 36 mg/dL (4-19); BUN/Creat Ratio 14.5 RATIO (10-20); Calcium,Total 9.4 mg/dL (7.6-11.0); Carbon Dioxide 22.0 mmol/L (21.0-32.0); Chloride 95 mmol/L (98-108); Estimated Creatinine Clearance 22.33 ml/min (50-250); Glucose 137 mg/dL (70-99); Potassium 4.3 mmol/L (3.3-5.1)
[2025-02-20] MEDS: Budesonide Respules 0.5 MG/2 ML AMPUL.NEB. INHALATION ×2 (07:03→19:10)
[2025-02-20] MEDS: Insulin Glargine-YFGN 100 UNIT/ML Pen 14 UNIT SC (08:15)
[2025-02-20] MEDS: Magnesium Chloride 64 MG Delay Rel.Tablet PO ×2 (08:17→20:54)
[2025-02-20] MEDS: Isosorbide DN 10 MG Tablet PO (08:17)
--- NOTE | 2025-02-20 10:19 | ECHOCS_ITS ---
Reason For Study Reason For Study: CHF Procedure This was a 2D Doppler, Color Flow transthoracic echocardiogram. Contrast injection was performed. Exam performed portable in patient room. Left Ventricle Normal LV size. Mild concentric left ventricular hypertrophy. The left ventricular ejection fraction is 45 %. No regional wall motion abnormalities noted. Right Ventricle Normal RV size. Normal systolic function. Atria The left atrium is moderately enlarged. Normal right atrium. Mitral Valve Normal mitral valve. Mild-Moderate (1-2+) eccentric mitral valve insufficiency. Tricuspid Valve Normal tricuspid valve. Aortic Valve Trisinus/trileaflet aortic valve. Moderate focal aortic valve calcification. Peak aortic valve gradient 65 mmHg. Mean aortic valve gradient 42 mmHg. Severe aortic stenosis. Pulmonic Valve Normal pulmonic valve. Great Vessels Normal aortic root. The pulmonary artery is normal size. Inferior vena cava collapse with respiration. Pericardium/Pleural No pericardial effusion. MMode/2D Measurements & Calculations LVIDd: 4.4 cm IVSd: 1.3 cm LVOT diam: 2.1 cm LVIDs: 3.6 cm LVPWd: 1.2 cm LVOT area: 3.4 cm2 RVDd: 3.5 cm FS: 18.4 % Ao root diam: 3.1 cm asc Aorta Diam: 3.2 cm LAV(MOD- bp): 77.6 ml LAV(MOD- bp) Indexed: 43.0 ml/m2 LAV(MOD- sp2): 69.1 ml LAV(MOD- sp4): 80.4 ml SV(MOD-sp4): 53.0 ml SV(sp4- el): 56.6 ml LVAd ap4: 35.7 cm2 LVLd ap4: 9.0 cm SI(MOD-sp4): 29.4 ml/m2 EDV(MOD-sp4): 114.8 ml EDV(sp4-el): 120.0 ml LVAs ap4: 25.0 cm2 LVLs ap4: 8.3 cm ESV(MOD-sp4): 61.8 ml ESV(sp4-el): 63.4 ml EF(MOD-sp4): 46.2 % EF(sp4-el): 47.2 % Ao sinus diam: 2.[address] Junction: 2.5 cm LA A4 area: 24.3 cm2 LA dimension(2D): 4.6 cm TAPSE: 1.8 cm RA A4 area: 14.2 cm2 Time Measurements MV dec time: 0.23 sec Doppler Measurements & Calculations MV E max ori: 151.0 cm/sec Lat Peak E' Ori: 12.5 cm/sec Med Peak E' Ori: 8.7 cm/sec MV A max ori: 137.6 cm/sec E/E' lat: 12.1 E/E' med: 17.3 MV E/A: 1.1 MV V2 max: 187.6 cm/sec MV P1/2t max ori: 189.3 cm/sec Ao V2 max: 402.3 cm/sec MV max P.1 mmHg MV P1/2t: 81.5 msec Ao max P.9 mmHg MV V2 mean: 110.9 cm/sec MV dec slope: 680.1 cm/sec2 Ao V2 mean: 305.1 cm/sec MV mean P.9 mmHg Ao mean P.8 mmHg MV V2 VTI: 48.0 cm MVA(P1/2t): 2.7 cm2 Ao V2 VTI: 89.0 cm MVA(VTI): 1.3 cm2 AV (velocity ratio): 0.20 JOELLE(I,D): 0.68 cm2 JOELLE(V,D): 0.66 cm2 LV V1 max: 79.0 cm/sec MR max ori: 498.9 cm/sec SV(LVOT): 60.2 ml LV V1 max P.5 mmHg MR max P.6 mmHg LV V1 mean P.6 mmHg MR mean ori: 368.3 cm/sec LV V1 mean: 61.2 cm/sec MR mean P.2 mmHg LV V1 VTI: 17.8 cm MR VTI: 146.6 cm PA V2 max: 89.3 cm/sec ECHO/Echo Complete W/ Contrast Interpretation Summary Normal LV size. Mild concentric left ventricular hypertrophy. The left ventricular ejection fraction is 45 %. The left atrium is moderately enlarged. Moderate focal aortic valve calcification. Mean aortic valve gradient 42 mmHg. Peak aortic valve gradient 65 mmHg. Severe aortic stenosis. Ordering Physician: Sana Ruiz Performed By: Robert Ellington RCS
[2025-02-20] MEDS: 0.9% Normal Saline (500mL Bag) 500 ML 999 ML IV (10:43)
--- NOTE | 2025-02-20 13:57 | PN_ITS ---
Subjective Subjective Patient seen and examined. HE had no active complaints today and had an uneventful night. Review of systems is otherwise negative. BP is running low in the 90s systolic though he is asymptomatic. Objective Data Objective Data Vital Signs: Vital Signs Temp Pulse Resp BP Pulse Ox O2 Del Method O2 Flow Rate 98.2 F 91 20 H 93/55 L 92 Nasal Cannula 2 02/20/25 13:49 02/20/25 13:49 02/20/25 13:49 02/20/25 13:49 02/20/25 13:49 02/20/25 13:49 02/20/25 13:49 FiO2 30 02/19/25 04:30 Oxygen Flow Rate (L/min) 2 Oxygen Delivery Method Nasal Cannula Weight: 157 lb 6.561 oz Body Mass Index (BMI) 25.4 Intake & Output: Intake and Output for Last 24 Hours 02/18/25 02/19/25 02/20/25 23:59 23:59 23:59 Intake Total 520 / 1020 1000 / 1000 Output Total 2700 / 4200 2050 / 0 Balance -2180 / -3180 -1050 / -1050 Lab / Micro Data 02/20/25 04:24 02/20/25 04:24 Labs: Laboratory Results - last 24 hr 02/19/25 16:19: POC Glucose 145 H 02/19/25 23:05: POC Glucose 191 H 02/20/25 04:24: WBC 8.3, RBC 3.42 L, Hgb 10.0 L, Hct 29.9 L, MCV 87.4, MCH 29.2, MCHC 33.4, RDW Std Deviation 45.8 H, RDW Coeff of Disha 14.2, Plt Count 400, MPV 10.0, Immature Gran % (Auto) 0.500, Neut % (Auto) 69.6, Lymph % (Auto) 16.8 L, M brenda % (Auto) 11.7 H, Eos % (Auto) 0.6, Baso % (Auto) 0.8, Absolute Neuts (auto) 5.8, Absolute Lymphs (auto) 1.40, Nucleated RBC % 0, Sodium 133, Potassium 4.3, Chloride 95 L, Carbon Dioxide 22.0, Anion Gap 16 H, BUN 36 H, Creatinine 2.46 H, Estim Creat Clear Calc 22.33 L, Est GFR (MDRD) Non-Af 26 L, BUN/Creatinine Ratio 14.5, Glucose 137 H, Calcium 9.4 02/20/25 08:13: POC Glucose 142 H 02/20/25 12:11: POC Glucose 170 H Rhythm Strip Rhythm Strip: Sinus Tach Rate: 115 Ectopy: None Physical Exam Const alert, oriented x3 and no apparent distress Constitutional Narrative: frail, weak General Appearance: cooperative HEENT normocephalic, head/scalp atraumatic and hearing grossly normal bilaterally Eyes EOMs intact bilaterally and conjunctivae normal Resp Resp Narrative: mildly diminished breath sounds bibasally, no wheezes or crackles. On 2 L of oxygen by nasal cannula Cardio regular rate, regular rhythm, S1 normal heart sound and S2 normal heart sound Cardio Narrative: grade 3 ejection systolic murmur loudest at the aortic region. GI normal to inspection, nondistended, normoactive bowel sounds, soft to palpation and non-tender GI Narrative: ileostomy bag Extremity normal to inspection and full ROM Extremity Narrative: mild 1+ bipedal pitting edema General Extremity: no tenderness to palpation of joints or extremities Neuro oriented x3, CN's II-XII intact bilaterally and moves all extremities Sensorium / Orientation: awake and alert Motor Exam: strength 5/5 throughout Psych thought process normal, cooperative and affect normal Assessment & Plan Assessment/Plan (1) Acute hyperkalemia: (2) Acute pulmonary edema: (3) Acute hypoxemic respiratory failure: (4) HAMMAD (acute kidney injury): PLAN: Plan #Acute hypoxic respiratory failure due to acute flash pulmonary edema in the setting of severe aortic stenosis * Admit to PCU * Admitted with a complaint of acute shortness of breath and chest x-ray showed interval development of pulmonary edema pattern. * Does have severe aortic stenosis. * Will diurese with IV Lasix 40 mg twice daily. Was initially on BiPAP but weaned down to 4.5 L of oxygen. Now on 2L of oxygen. * Titrate oxygen to maintain saturation above 90%. Patient was accepted at [facility] but no bed availability. I did discuss with cardiology who stated that there was no need for active cardiology consult and to diurese patient * get 2D echo * #HAMMAD on CKD with hyperkalemia * Cr today is up to 2.46. * baseline Cr is 1.93. * hyperkalemia has resolved with potassium of 4.3. * * #HYpotension * BP is down to 93/55. Is asymptomatic. * may be due to overdiuresis in the setting of aortic stenosis * hold lasix and give a bolus of normal saline x 1L. * #Elevated troponins: * Initial troponin was 99 and subsequent troponin was 108. * Likely due to demand ischemia from the acute hypoxic respiratory failure. EKG did not show any acute ST changes and he denies any chest pain. * Will monitor for now and if any worsening of any chest pain will consult cardiology #History of COPD: Currently being managed for acute hypoxic respiratory failure as above. I do not think patient has COPD exacerbation. Breathing treatment with bronchodilators. #Ileostomy in situ * Says he has a history of bowel obstruction s/p resection and he has ileostomy in situ. * Stable. DVT prophylaxis: heparin CODE STATUS: Full code * * DIsposition: awaiting transfer to [facility]. Charges/Coding Visit Charges Inpatient E&M: 80322 Subs Hosp L2
[2025-02-20] MEDS: 0.9% Saline Lock 10 ML Syringe IV (21:06)
[2025-02-21] VITALS (11 sets, daily range): BP systolic 94–111; BP diastolic 54–78; PULSE 72–93; RESP 15–18; TEMP 36.5–37.1; O2SAT 92–98
[2025-02-21 05:46] LABS: Hematocrit 22.7 % (40-54); Hemoglobin 7.6 g/dL (13.0-16.5); Immature Granulocytes Count 0.030 X10^3/uL (0.0-0.0); Mean Corp Hgb Conc 33.5 g/dL (32-36); Mean Corpuscular Volume 87.3 fL (80-94); Mean Platelet Vol. 10.7 fl (6.2-12.0); NRBC Flagged by Analyzer 0 % (0-5); POSITIVE COUNT YES; Platelet Count 300 K/mm3 (150-450); RBC Distribution Width CV 14.1 % (11.6-14.6); RBC Distribution Width SD 45.1 fl (35.1-43.9); Red Blood Count 2.60 M/mm3 (4.6-6.2); White Blood Count 7.1 K/mm3 (4.4-11.0)
[2025-02-21 05:58] LABS: Differential Indicated SCAN CRITERIA MET
[2025-02-21 06:16] LABS: Anion Gap 14 (5-15); BUN 43 mg/dL (4-19); BUN/Creat Ratio 16.1 RATIO (10-20); Calcium,Total 8.3 mg/dL (7.6-11.0); Carbon Dioxide 19.0 mmol/L (21.0-32.0); Chloride 99 mmol/L (98-108); Estimated Creatinine Clearance 20.81 ml/min (50-250); Glucose 134 mg/dL (70-99); Potassium 4.2 mmol/L (3.3-5.1)
[2025-02-21 06:34] LABS: Differential Comment SCANNED; Red Cell Morphology NORM C+C NORMAL (NORM C&C)
[2025-02-21] MEDS: Isosorbide DN 10 MG Tablet PO ×3 (06:41→17:07)
[2025-02-21] MEDS: Psyllium 1 PACKET PO ×3 (06:41→22:27)
[2025-02-21] MEDS: Budesonide Respules 0.5 MG/2 ML AMPUL.NEB. INHALATION ×2 (07:18→19:28)
--- NOTE | 2025-02-21 08:16 | WOUNDNOTE ---
Was called to see patient for leaking ostomy. pt has a ileostomy. removed the appliance. peristomal skin is intact. there was a moderate amount of soft unformed brown stool. skin cleansed with warm water. pat dry. applied paste ring and placed a 2 piece convex Trish appliance. pt tolerated well. will follow as needed.
[2025-02-21] MEDS: Insulin Glargine-YFGN 100 UNIT/ML Pen 14 UNIT SC (08:55)
[2025-02-21] MEDS: Magnesium Chloride 64 MG Delay Rel.Tablet PO ×2 (08:56→22:27)
--- NOTE | 2025-02-21 10:45 | PN_ITS ---
Subjective Subjective Patient seen and examined. He had no active complaints. He is down to 1 L of oxygen. His blood pressure has improved today also. Review of systems otherwise negative. Objective Data Objective Data Vital Signs: Vital Signs Temp Pulse Resp BP Pulse Ox O2 Del Method O2 Flow Rate 98.3 F 93 18 105/55 L 95 Nasal Cannula 1 02/21/25 08:39 02/21/25 08:39 02/21/25 08:39 02/21/25 08:39 02/21/25 08:39 02/21/25 10:00 02/21/25 10:00 FiO2 30 02/19/25 04:30 Oxygen Flow Rate (L/min) 1 Oxygen Delivery Method Nasal Cannula Weight: 157 lb 6.561 oz Body Mass Index (BMI) 25.4 Intake & Output: Intake and Output for Last 24 Hours 02/19/25 02/20/25 02/21/25 23:59 23:59 23:59 Intake Total 520 / 1020 1600 / 1600 Output Total 2700 / 4200 2350 / 2575 575 / 575 Balance -2180 / -3180 -750 / -975 -575 / -575 Lab / Micro Data 02/21/25 05:20 02/21/25 05:20 Labs: Laboratory Results - last 24 hr 02/20/25 08:13: POC Glucose 142 H 02/20/25 12:11: POC Glucose 170 H 02/20/25 15:59: POC Glucose 213 H 02/20/25 21:15: POC Glucose 183 H 02/21/25 05:20: WBC 7.1, RBC 2.60 L, Hgb 7.6 L, Hct 22.7 L, MCV 87.3, MCH 29.2, MCHC 33.5, RDW Std Deviation 45.1 H, RDW Coeff of Disha 14.1, Plt Count 300, MPV 10.7, Immature Gran % (Auto) 0.400, Neut % (Auto) 61.4, Lymph % (Auto) 20.4, M brenda % (Auto) 10.9 H, Eos % (Auto) 6.2 H, Baso % (Auto) 0.7, Absolute Neuts (auto) 4.3, Absolute Lymphs (auto) 1.44, Nucleated RBC % 0, Differential Comment SCANNED, Platelet Estimate MOD INC, Plt Morphology Comment CLUMPED, RBC Morphology NORM C+C, Sodium 132 L, Potassium 4.2, Chloride 99, Carbon Dioxide 19.0 L, Anion Gap 14, BUN 43 H, Creatinine 2.64 H, Estim Creat Clear Calc 20.81 L, Est GFR (MDRD) Non-Af 24 L, BUN/Creatinine Ratio 16.1, Glucose 134 H, Calcium 8.3 02/21/25 08:38: POC Glucose 160 H Radiography Diagnostic Testing: Radiology Impression Echocardiogram 02/20/25 10:19 Interpretation Summary Normal LV size. Mild concentric left ventricular hypertrophy. The left ventricular ejection fraction is 45 %. The left atrium is moderately enlarged. Moderate focal aortic valve calcification. Mean aortic valve gradient 42 mmHg. Peak aortic valve gradient 65 mmHg. Severe aortic stenosis. Ordering Physician: Sana Ruiz Performed By: Robert Ellington RCS Rhythm Strip Rhythm Strip: Sinus Tach Rate: 115 Ectopy: None Physical Exam Const alert, oriented x3 and no apparent distress Constitutional Narrative: frail, weak General Appearance: cooperative HEENT normocephalic, head/scalp atraumatic and hearing grossly normal bilaterally Eyes EOMs intact bilaterally and conjunctivae normal Neck supple Resp Resp Narrative: mildly diminished breath sounds bibasally, no wheezes or crackles. On 1 L of oxygen by nasal cannula Cardio regular rate, regular rhythm, S1 normal heart sound and S2 normal heart sound Cardio Narrative: grade 3 ejection systolic murmur loudest at the aortic region. GI normal to inspection, nondistended, normoactive bowel sounds, soft to palpation and non-tender GI Narrative: ileostomy bag Extremity normal to inspection and full ROM Extremity Narrative: mild 1+ bipedal pitting edema General Extremity: no tenderness to palpation of joints or extremities Neuro oriented x3, CN's II-XII intact bilaterally and moves all extremities Sensorium / Orientation: awake and alert Motor Exam: strength 5/5 throughout Psych thought process normal, cooperative and affect normal Assessment & Plan Assessment/Plan (1) Acute hyperkalemia: (2) Acute pulmonary edema: (3) Acute hypoxemic respiratory failure: (4) HAMMAD (acute kidney injury): PLAN: Plan #Acute hypoxic respiratory failure due to acute flash pulmonary edema in the setting of severe aortic stenosis * Admitted with a complaint of acute shortness of breath and chest x-ray showed interval development of pulmonary edema pattern. * Does have severe aortic stenosis. * Will diurese with IV Lasix 40 mg twice daily. Was initially on BiPAP but weaned down to 4.5 L of oxygen. Now on 2L of oxygen. * Titrate oxygen to maintain saturation above 90%. Patient was accepted at [facility] but no bed availability. I did discuss with cardiology who stated that there was no need for active cardiology consult and to diurese patient * 2D echo showed mild concentric left ventricular hypertrophy with EF of 45% and left atrium moderately enlarged, severe aortic stenosis and moderate focal aortic valve calcification with peak aortic valve gradient of 65 mmHg and mean aortic valve gradient 42 mmHg * #HAMMAD on CKD with hyperkalemia * Cr today is up to 2.64 * baseline Cr is 1.93. * hyperkalemia has resolved with potassium of 4.3. * being switched to PO lasix today which should help * * #Acute on chronic anemia * Hb is 7.6. Was 10 yesterday. * no clear evidence of bleeding * his baseline from earlier this month was 7-8. Will monitor and if it drops further we will do a more extensive workup. * #HYpotension * improving. * may be due to overdiuresis in the setting of aortic stenosis * hold lasix and give a bolus of normal saline x 1L. * #Elevated troponins: * Initial troponin was 99 and subsequent troponin was 108. * Likely due to demand ischemia from the acute hypoxic respiratory failure. EKG did not show any acute ST changes and he denies any chest pain. * Will monitor for now and if any worsening of any chest pain will consult cardiology #History of COPD: Currently being managed for acute hypoxic respiratory failure as above. I do not think patient has COPD exacerbation. Breathing treatment with bronchodilators. #Ileostomy in situ * Says he has a history of bowel obstruction s/p resection and he has ileostomy in situ. * Stable. DVT prophylaxis: lovenox. Hold Lovenox and start on SCDs in light of the drop in hemoglobin. CODE STATUS: Full code * DIsposition: awaiting transfer to [facility]. Patient still prefers to be transferred to [facility] instead of being discharged home and following up with them on outpatient basis. Charges/Coding Visit Charges Inpatient E&M: 27693 Subs Hosp L2
[2025-02-22] VITALS (11 sets, daily range): BP systolic 105–115; BP diastolic 50–56; PULSE 75–87; RESP 14–17; TEMP 36.5–36.9; O2SAT 84–94
[2025-02-22] MEDS: Psyllium 1 PACKET PO ×2 (05:09→13:19)
[2025-02-22] MEDS: Insulin Glargine-YFGN 100 UNIT/ML Pen 14 UNIT SC (06:37)
[2025-02-22 07:17] LABS: Hematocrit 24.1 % (40-54); Hemoglobin 7.9 g/dL (13.0-16.5); Immature Granulocytes Count 0.030 X10^3/uL (0.0-0.0); Mean Corp Hgb Conc 32.8 g/dL (32-36); Mean Corpuscular Volume 87.0 fL (80-94); Mean Platelet Vol. 10.4 fl (6.2-12.0); NRBC Flagged by Analyzer 0 % (0-5); Platelet Count 348 K/mm3 (150-450); RBC Distribution Width CV 14.1 % (11.6-14.6); RBC Distribution Width SD 45.3 fl (35.1-43.9); Red Blood Count 2.77 M/mm3 (4.6-6.2); White Blood Count 6.2 K/mm3 (4.4-11.0)
[2025-02-22] MEDS: Budesonide Respules 0.5 MG/2 ML AMPUL.NEB. INHALATION (07:33)
[2025-02-22 08:13] LABS: Anion Gap 14 (5-15); BUN 42 mg/dL (4-19); BUN/Creat Ratio 15.8 RATIO (10-20); Calcium,Total 8.9 mg/dL (7.6-11.0); Carbon Dioxide 19.9 mmol/L (21.0-32.0); Chloride 97 mmol/L (98-108); Estimated Creatinine Clearance 20.73 ml/min (50-250); Glucose 123 mg/dL (70-99); Potassium 4.6 mmol/L (3.3-5.1)
[2025-02-22] MEDS: Magnesium Chloride 64 MG Delay Rel.Tablet PO (09:43)
[2025-02-22] MEDS: 0.9% Saline Lock 10 ML Syringe IV (09:44)
[2025-02-22] MEDS: Isosorbide DN 10 MG Tablet PO ×2 (13:18→17:23)
--- NOTE | 2025-02-22 14:10 | PCM.DC ---
Discharge Instructions DC O2, CPAP, BIPAP needs Home O2 Discharge instructions: Yes Type of respiratory needs?: Oxygen Oxygen frequency: Continuous Continuous oxygen liters per minute: 1 Follow Up Care Test Results: Test results from this visit will be discussed in further detail at your follow-up appointment, if applicable. Discharge Plan Admission Admit Date/Time: 02/19/25 09:09 Primary Reason for Your Visit: flash pulmonary edema, severe aortic stenosis Attending Provider: Sana Ruiz Primary Care Provider: Trinity Coronado Instructions Patient Instructions: Pulmonary Edema Additional Instructions / Restrictions: follow up with anthropologist physical at [facility] for severe aortic stenosis Discharge Orders/Prescriptions Prescriptions: New furosemide 20 mg Tablet 20 mg PO DAILY Qty: 30 2RF Continued aspirin 81 MG tablet 81 mg PO DAILY@0800 gabapentin 300 mg capsule 300 mg PO QHS acetaminophen 325 mg capsule 650 mg PO Q4H PRN (Reason: fever or pain) carvedilol 12.5 mg Tablet 12.5 mg PO BIDCM Qty: 60 0RF isosorbide dinitrate 10 mg Tablet 10 mg PO TID@0700,1200,1700 Qty: 90 0RF loperamide 2 mg Capsule 4 mg PO Q6H Qty: 240 0RF ipratropium bromide 42 mcg (0.06 %) [place],Non-Aerosol 2 spray NASAL BID Qty: 1 0RF fluticasone propion-salmeterol 232-14 mcg/actuation Aerosol Powdr Breath Activated 1 inh inhalation Q12 Qty: 1 0RF Rx Instructions: rinse mouth after every use pantoprazole 40 mg Tablet,Delayed Release (Dr/Ec) 40 mg PO BID Qty: 60 0RF mirtazapine 15 mg Tablet 15 mg PO 2100 Qty: 30 0RF simethicone 80 mg Tablet,Chewable 80 mg PO PCHS Qty: 120 0RF magnesium chloride [Mag 64] 64 mg Tablet,Delayed Release (Dr/Ec) 64 mg PO BID Qty: 60 0RF Daily Fiber (psyllium-aspart) 3 gram Powder In Packet 1 packet PO TID Qty: 90 0RF insulin glargine-yfgn 100 unit/mL (3 mL) Insulin Pen 14 unit subcut 0700 Qty: 2 0RF insulin aspart U-100 100 unit/mL (3 mL) insulin pen 3 unit subcut TID Qty: 2 0RF sodium bicarbonate 650 mg tablet 650 mg PO TID Qty: 90 0RF Discontinued furosemide [Lasix] 80 mg tablet 80 mg PO PRN PRN (Reason: edema) Rx Instructions: take 1 tab in the morning if wt increases by 3 lbs. PRN; Referrals / Follow Up: Trinity Coronado, MACHINE FINISHER-C [Primary Care Provider] - Within 1 Week Disposition Disposition (needs filled in before D/C Order can be placed): Home, Self Care
--- NOTE | 2025-02-22 14:15 | DS.PCM_ITS ---
Providers Date of Admission: 02/19/25 Date of Discharge: 02/22/25 Primary Care Physician: DEANNA Franklin Reason For Visit: ACUTE CHF Diagnosis Discharge Diagnosis (1) Acute hyperkalemia: Status: Acute Code(s): E87.5 - Hyperkalemia (2) Acute pulmonary edema: Status: Acute Code(s): J81.0 - Acute pulmonary edema (3) Acute hypoxemic respiratory failure: Status: Acute Code(s): J96.01 - Acute respiratory failure with hypoxia (4) HAMMAD (acute kidney injury): Status: Acute Code(s): N17.9 - Acute kidney failure, unspecified Plan #Acute hypoxic respiratory failure due to acute flash pulmonary edema in the setting of severe aortic stenosis * Admitted with a complaint of acute shortness of breath and chest x-ray showed interval development of pulmonary edema pattern. * Does have severe aortic stenosis. * Will diurese with IV Lasix 40 mg twice daily. Was initially on BiPAP but weaned down to 4.5 L of oxygen. Now on 2L of oxygen. * Titrate oxygen to maintain saturation above 90%. Patient was accepted at [facility] but no bed availability. I did discuss with cardiology who stated that there was no need for active cardiology consult and to diurese patient * 2D echo showed mild concentric left ventricular hypertrophy with EF of 45% and left atrium moderately enlarged, severe aortic stenosis and moderate focal aortic valve calcification with peak aortic valve gradient of 65 mmHg and mean aortic valve gradient 42 mmHg * #HAMMAD on CKD with hyperkalemia * Cr today is up to 2.64 * baseline Cr is 1.93. * hyperkalemia has resolved with potassium of 4.3. * being switched to PO lasix today which should help * * #Acute on chronic anemia * Hb is 7.6. Was 10 yesterday. * no clear evidence of bleeding * his baseline from earlier this month was 7-8. Will monitor and if it drops further we will do a more extensive workup. * #HYpotension * improving. * may be due to overdiuresis in the setting of aortic stenosis * hold lasix and give a bolus of normal saline x 1L. * #Elevated troponins: * Initial troponin was 99 and subsequent troponin was 108. * Likely due to demand ischemia from the acute hypoxic respiratory failure. EKG did not show any acute ST changes and he denies any chest pain. * Will monitor for now and if any worsening of any chest pain will consult cardiology #History of COPD: Currently being managed for acute hypoxic respiratory failure as above. I do not think patient has COPD exacerbation. Breathing treatment with bronchodilators. #Ileostomy in situ * Says he has a history of bowel obstruction s/p resection and he has ileostomy in situ. * Stable. DVT prophylaxis: lovenox. Hold Lovenox and start on SCDs in light of the drop in hemoglobin. CODE STATUS: Full code * DIsposition: awaiting transfer to [facility]. Patient still prefers to be transferred to [facility] instead of being discharged home and following up with them on outpatient basis. Medications at Discharge Home Medications aspirin 81 mg tablet,delayed release 81 mg PO DAILY@0800 heart health 04/16/17 gabapentin 300 mg capsule 300 mg PO QHS PAIN 10/31/24 acetaminophen 325 mg capsule 650 mg PO Q4H PRN fever or pain 01/11/25 carvedilol 12.5 mg tablet 12.5 mg PO BIDCM #60 tabs 02/02/25 fluticasone 232 mcg-salmeterol 14 mcg/actuation breath activated powdr 1 inh inhalation Q12 #1 ea 02/02/25 insulin aspart U-100 100 unit/mL (3 mL) subcutaneous pen 3 unit (0.03 mL) subcut TID #2 pens 02/02/25 insulin glargine-yfgn 100 unit/mL (3 mL) subcutaneous pen 14 unit (0.14 mL) subcut 0700 #2 pens 02/02/25 ipratropium bromide 42 mcg (0.06 %) nasal spray 2 spray NASAL BID #1 BOTTLE 02/02/25 isosorbide dinitrate 10 mg tablet 10 mg PO TID@0700,1200,1700 #90 tabs 02/02/25 loperamide 2 mg capsule 4 mg (2 x 2 mg) PO Q6H #240 caps 02/02/25 magnesium chloride 64 mg (magnesium chloride) tablet,delayed release (Mag 64) 64 mg PO BID #60 tabs 02/02/25 mirtazapine 15 mg tablet 15 mg PO 2100 #30 tabs 02/02/25 pantoprazole 40 mg tablet,delayed release 40 mg PO BID #60 tabs 07/11/25 psyllium husk 3 gram oral powder packet (Daily Fiber (psyllium-aspartame)) 1 packet PO TID #90 ea 02/02/25 simethicone 80 mg chewable tablet 80 mg PO PCHS #120 tabs 02/02/25 sodium bicarbonate 650 mg tablet 650 mg PO TID #90 tabs 02/02/25 furosemide 20 mg tablet 20 mg PO DAILY #30 tabs 02/22/25 Hospital Course Operations None Procedures 2-D Echocardiogram Summary of Care Provided Minutes Spent on Discharge: 45 Hospital Course: SYD BARNETT, is a 79 M with a PMH as outlined who was admitted via the ED on 02/19/2025 with a complaint of shortness of breath which started on the night before admission. He said he was lying in his recliner where he usually sleeps and became acutely short of breath. He denied any chest pain or lower extremity swelling, palpitations, nausea or vomiting or any other symptoms. He denied having such shortness of breath happen in the past. Review of systems otherwise negative. He came into the ED in flash pulmonary edema and plan was to transfer him to [facility] for evaluation for TAVR. Patient was accepted at [facility] but there was no bed availability. [facility] subsequently tried to send him to [facility] but he was not accepted there so he has been admitted here pending transfer to [facility]. At time of my evaluation, patient was down to 4.5 L of oxygen. He still complained of shortness of breath though he denied any chest pain, palpitations, nausea or vomiting or any other such symptoms. Vitals in the ED where temperature of 98.4 Fahrenheit, blood pressure of 127/85, respiratory rate of 18 and he was saturating at 96% on the 4.5 L of oxygen. Chemistry showed WBC of 7.6, hemoglobin of 10.2 and platelets of 456. ABG done showed pH of 7.42 with PCO2 of 33.1 and PO2 of 80 he was on BiPAP at that time. Chemistry showed sodium of 132 with potassium of 5.3 and bicarb of 20.4. Creatinine was 2.37. proBNP was 31,310. Initial troponin was 99 and trended up slightly to 108. Chest x-ray showed interval development of pulmonary edema and EKG showed no acute ST changes. He was admitted to be managed for acute hypoxic respiratory failure due to flash pulmonary edema in the setting of severe aortic stenosis. He was diuresed with IV lasix. His shortness of breath resolved and he felt much better. HE had 2D echo which showed EF of 45% and normal LV size and mild concentric LVH and no regional wall motion abnormalities, and severe aortic valve stenosis, with mean aortic valve gradient of 42mmHg and peak aortic valve gradient of 65mmHg. His shortness of breath improved and he felt much better. He remained stable and decision was made to discharge him home as he was now stable and there was no need to transfer him to [facility], and he could follow up with his care transition manager and PCP within 1-2 weeks. He is to follow up with his PCP and care transition manager as scheduled. Patient seen and examined prior to discharge. He felt much better and had no active complaints. Review of systems is otherwise negative. Labs and vitals reviewed. Home meds reviewed and reconciled. He had walking pulse ox and required 1L of oxygen. Physical Exam Const alert, oriented x3 and no apparent distress Constitutional Narrative: frail, weak General Appearance: cooperative and comfortable HEENT normocephalic, head/scalp atraumatic and hearing grossly normal bilaterally Mouth: oral and palatal mucosa normal Eyes PERRL, EOMs intact bilaterally and conjunctivae normal Neck supple Resp Resp Narrative: mildly diminished breath sounds bibasally, no wheezes or crackles. On 1 L of oxygen by nasal cannula Cardio regular rate, regular rhythm, S1 normal heart sound and S2 normal heart sound Cardio Narrative: grade 3 ejection systolic murmur loudest at the aortic region. GI normal to inspection, nondistended, normoactive bowel sounds, soft to palpation and non-tender GI Narrative: ileostomy bag Extremity normal to inspection and full ROM Extremity Narrative: mild 1+ bipedal pitting edema General Extremity: no tenderness to palpation of joints or extremities Skin no rashes or lesions noted Neuro oriented x3, CN's II-XII intact bilaterally and moves all extremities Sensorium / Orientation: awake and alert Motor Exam: strength 5/5 throughout Psych thought process normal, cooperative and affect normal Weight / BMI Weight Weight: 157 lb 6.561 oz Body Mass Index (BMI) 25.4 ABG / Lab / Microbiology Data 02/22/25 06:38 02/22/25 06:38 Laboratory: Laboratory Results - last 24 hr 02/21/25 17:03: POC Glucose 153 H 02/21/25 22:24: POC Glucose 136 H 02/22/25 06:36: POC Glucose 122 H 02/22/25 06:38: WBC 6.2, RBC 2.77 L, Hgb 7.9 L, Hct 24.1 L, MCV 87.0, MCH 28.5, MCHC 32.8, RDW Std Deviation 45.3 H, RDW Coeff of Disha 14.1, Plt Count 348, MPV 10.4, Immature Gran % (Auto) 0.500, Neut % (Auto) 59.5, Lymph % (Auto) 19.4, M brenda % (Auto) 11.0 H, Eos % (Auto) 9.1 H, Baso % (Auto) 0.5, Absolute Neuts (auto) 3.7, Absolute Lymphs (auto) 1.20, Nucleated RBC % 0, Sodium 131 L, Potassium 4.6, Chloride 97 L, Carbon Dioxide 19.9 L, Anion Gap 14, BUN 42 H, C reatinine 2.65 H, Estim Creat Clear Calc 20.73 L, Est GFR (MDRD) Non-Af 24 L, BUN/Creatinine Ratio 15.8, Glucose 123 H, Calcium 8.9 02/22/25 08:57: POC Glucose 130 H 02/22/25 12:37: POC Glucose 163 H D/C Instructions Discharge Activity: Return to Normal Activity Weight Bearing Status: Weight bearing as tolerated DC O2, CPAP, BIPAP Needs Home O2 Discharge instructions: Yes Type of respiratory needs?: Oxygen Oxygen frequency: Continuous Continuous oxygen liters per minute: 1 DC home with Oxygen: Yes Home O2 MD Review: I have reviewed the oxygen testing, and the patient qualifies for home oxygen equipment and portability. The patient is mobile in the home and the community. Meaningful Use Info Meaningful Use Meaningful Use Diagnoses (Choose all that apply): None applicable Discharge Plan Admission Admit Date/Time: 02/19/25 09:09 Primary Reason for Your Visit: flash pulmonary edema, severe aortic stenosis Attending Provider: Sana Ruiz Primary Care Provider: Trinity Coronado Instructions Patient Instructions: Pulmonary Edema Additional Instructions / Restrictions: follow up with care transition manager at [facility] for severe aortic stenosis Discharge Orders/Prescriptions Prescriptions: New furosemide 20 mg Tablet 20 mg PO DAILY Qty: 30 2RF Continued aspirin 81 MG tablet 81 mg PO DAILY@0800 gabapentin 300 mg capsule 300 mg PO QHS acetaminophen 325 mg capsule 650 mg PO Q4H PRN (Reason: fever or pain) carvedilol 12.5 mg Tablet 12.5 mg PO BIDCM Qty: 60 0RF isosorbide dinitrate 10 mg Tablet 10 mg PO TID@0700,1200,1700 Qty: 90 0RF loperamide 2 mg Capsule 4 mg PO Q6H Qty: 240 0RF ipratropium bromide 42 mcg (0.06 %) [place],Non-Aerosol 2 spray NASAL BID Qty: 1 0RF fluticasone propion-salmeterol 232-14 mcg/actuation Aerosol Powdr Breath Activated 1 inh inhalation Q12 Qty: 1 0RF Rx Instructions: rinse mouth after every use pantoprazole 40 mg Tablet,Delayed Release (Dr/Ec) 40 mg PO BID Qty: 60 0RF mirtazapine 15 mg Tablet 15 mg PO 2100 Qty: 30 0RF simethicone 80 mg Tablet,Chewable 80 mg PO PCHS Qty: 120 0RF magnesium chloride [Mag 64] 64 mg Tablet,Delayed Release (Dr/Ec) 64 mg PO BID Qty: 60 0RF Daily Fiber (psyllium-aspart) 3 gram Powder In Packet 1 packet PO TID Qty: 90 0RF insulin glargine-yfgn 100 unit/mL (3 mL) Insulin Pen 14 unit subcut 0700 Qty: 2 0RF insulin aspart U-100 100 unit/mL (3 mL) insulin pen 3 unit subcut TID Qty: 2 0RF sodium bicarbonate 650 mg tablet 650 mg PO TID Qty: 90 0RF Discontinued furosemide [Lasix] 80 mg tablet 80 mg PO PRN PRN (Reason: edema) Rx Instructions: take 1 tab in the morning if wt increases by 3 lbs. PRN; Referrals / Follow Up: Trinity Coronado NP-C [Primary Care Provider] - Within 1 Week (office states, wants to schedule appointment) Disposition Disposition (needs filled in before D/C Order can be placed): Home, Self Care Charges/Coding Visit Charges Inpatient E&M: 95367 Disch Hosp >30min
--- NOTE | 2025-02-22 14:20 | CASEMGMT ---
MELISA TAYLOR Face to Face with patient for initial transition planning/care coordination assessment. MELISA TAYLOR introduced self and role at [facility]. Patient lying in bed, alert and oriented. Patient willing to participate in assessment and is able to answer all questions appropriately. Care providers, pharmacy, and demographics verified. Strata: 3 PCP: Cliff Specialists: none Preferred Pharmacy: [facility] Insurance: MCR, MMO Prescription Benefit: yes Living Will/HPOA: yes, Alexia Peace LNOK: , sons Living Arrangements: Tj lives with and son in a 2 story home with bed and bath on first floor, 4 steps and railing to enter the home. Patient states and son assist patient with ADLs Transportation: sons, DIL DME/HHC:Patient states he has shower chair, grab bars, getting raised toilet today, cane, walker, hip kit, and glucometer at home. Patient is active with [facility]. Patient qualifies for home oxygen for at discharge, prefers [facility] to arrange once script received. Patient has order for discharge. Patient wishes to discharge home with resumption of [facility]. Patient states he has no further needs or concerns at this time. MELISA TAYLOR called and updated [facility], start of care planned for tomorrow. Disposition Plan: Patient to discharge home with [facility], family support, and follow-up plans in place. Bibiana COLORADO, RN, CM
--- NOTE | 2025-02-22 15:48 | CASEMGMT ---
See RN CM note. Signed O2 Rx sent to [facility] via [facility] at this time. Rx placed in the pt chart.
== END 2025-02-22 18:45 | disposition home or self-care (01) | DRG 291 ==
LOC: ED 04:06 → PCU 02-20 08:30
PROVIDERS: Admitting Provider Student in an Organized Health Care Education/Training Program; Emergency Provider Emergency Medicine; PCP Nurse Practitioner Family; Visit Provider Student in an Organized Health Care Education/Training Program
DX: I13.0 Hypertensive heart and chronic kidney disease with heart failure and stage 1 through stage 4 chronic kidney disease, or unspecified chronic kidney disease (principal); J81.0 Acute pulmonary edema; J96.01 Acute respiratory failure with hypoxia; I50.23 Acute on chronic systolic (congestive) heart failure; I24.89 Other forms of acute ischemic heart disease; E11.22 Type 2 diabetes mellitus with diabetic chronic kidney disease; D64.9 Anemia, unspecified; J44.9 Chronic obstructive pulmonary disease, unspecified; N18.9 Chronic kidney disease, unspecified; I35.0 Nonrheumatic aortic (valve) stenosis; Z93.2 Ileostomy status; E11.42 Type 2 diabetes mellitus with diabetic polyneuropathy; E87.5 Hyperkalemia; Z79.4 Long term (current) use of insulin; Z87.891 Personal history of nicotine dependence; Z79.82 Long term (current) use of aspirin; Z79.899 Other long term (current) drug therapy
CPT/HCPCS: 36415; 36600; 71045; 80048; 82803; 82962; 83605; 83880; 84132; 84484; 85025; 93005; 93306; 94002; 94640; 97162; 97166; 97530; 97535; 99285; Q9957; A4216; C8929; J1938; J2405

== ENCOUNTER 2025-06-02 12:32 | Emergency (ER) | payer MEDICARE, OTHER, SELFPAY ==
[2025-06-02] VITALS (29 sets, daily range): BP systolic 119–159; BP diastolic 54–87; PULSE 73–83; RESP 10–16; TEMP 36.7–36.8; O2SAT 88–100; BMI 26.5
--- NOTE | 2025-06-02 13:07 | RAD_ITS ---
RAD/Chest 1 View (Portable)
[2025-06-02 13:19] LABS: Hematocrit 25.0 % (40-54); Hemoglobin 8.0 g/dL (13.0-16.5); Immature Granulocytes Count 0.010 X10^3/uL (0.0-0.0); Mean Corp Hgb Conc 32.0 g/dL (32-36); Mean Corpuscular Volume 85.9 fL (80-94); Mean Platelet Vol. 10.1 fl (6.2-12.0); NRBC Flagged by Analyzer 0 % (0-5); POSITIVE DIFFERENTIAL YES; Platelet Count 314 K/mm3 (150-450); RBC Distribution Width CV 14.2 % (11.6-14.6); RBC Distribution Width SD 44.6 fl (35.1-43.9); Red Blood Count 2.91 M/mm3 (4.6-6.2); White Blood Count 4.3 K/mm3 (4.4-11.0)
--- NOTE | 2025-06-02 13:42 | ED.VIS.DYS ---
HPI History of Present Illness Chief Complaint: Shortness of Breath Informant: patient and family Narrative Narrative: 79-year-old male presenting to the emergency room with chief complaint of shortness of breath. Patient has a history of COPD as well as aortic stenosis. In addition to that he has a history of chronic kidney disease. He follows locally with Dr. Wilson. Cardiology is at [facility]. He recently underwent cardiac procedures for the evaluation of having a TAVR. Patient saw nephrology just a few days ago. He had his Lasix increased and he was taking 20 mg a day yesterday and today has been taking 80 mg. He states yesterday his breathing was hard but today is much more labored. Patient denies any fever. He does note a cough. He has a chronic ostomy as well as indwelling Killian catheter. Family states that since taking the 80 of Lasix he has made about 300 cc of urine. [facility] Medical History Chronic renal failure Acute hypoxemic respiratory failure HAMMAD (acute kidney injury) Left bundle branch block Cognitive dysfunction Dysphagia, oropharyngeal Myocardial infarction due to demand ischemia Left atrial enlargement Mild pulmonary hypertension Cardiomyopathy Other severe protein-calorie malnutrition History of diabetes mellitus Essential (primary) hypertension Diverticulosis Acute renal failure superimposed on stage 4 chronic kidney disease Diabetic polyneuropathy Iron deficiency anemia Irregular heart beat CKD (chronic kidney disease), stage IV Wears glasses Wears dentures BPH (benign prostatic hyperplasia) History of diverticulitis Former smoker Leg cramps History of echocardiogram Hypertrophic scar Carotid stenosis, left Sebaceous cyst Amaurosis fugax of right eye Sciatica Hyperlipidemia Osteoarthritis Hemorrhoid GERD (gastroesophageal reflux disease) HTN (hypertension) Home Medications ?Medication ?Instructions ?Recorded ?Last Taken ?Type aspirin 81 mg tablet,delayed 81 mg PO DAILY@0800 heart health 04/16/17 06/02/25 History release gabapentin 300 mg capsule 300 mg PO QHS PAIN 10/31/24 06/01/25 History acetaminophen 325 mg capsule 650 mg PO Q4H PRN fever or pain 01/11/25 Unknown History carvedilol 12.5 mg tablet 12.5 mg PO BIDCM #60 tabs 02/02/25 06/02/25 Rx insulin aspart U-100 100 unit/mL 3 unit (0.03 mL) subcut TID #2 pens 02/02/25 06/02/25 Rx (3 mL) subcutaneous pen insulin glargine-yfgn 100 unit/mL 14 unit (0.14 mL) subcut 0700 #2 02/02/25 06/02/25 Rx (3 mL) subcutaneous pen pens isosorbide dinitrate 10 mg tablet 10 mg PO TID@0700,1200,1700 #90 02/02/25 06/02/25 Rx tabs loperamide 2 mg capsule 4 mg (2 x 2 mg) PO Q6H #240 caps 02/02/25 06/02/25 Rx magnesium chloride 64 mg 64 mg PO BID #60 tabs 02/02/25 06/02/25 Rx (magnesium chloride) tablet,delayed release (Mag 64) mirtazapine 15 mg tablet 15 mg PO 2100 #30 tabs 02/02/25 06/01/25 Rx pantoprazole 40 mg tablet,delayed 40 mg PO BID #60 tabs 02/02/25 06/02/25 Rx release psyllium husk 3 gram oral powder 1 packet PO TID #90 ea 02/02/25 06/02/25 Rx packet (Daily Fiber (psyllium-aspartame)) simethicone 80 mg chewable tablet 80 mg PO PCHS #120 tabs 02/02/25 06/02/25 Rx sodium bicarbonate 650 mg tablet 650 mg PO TID #90 tabs 02/02/25 06/02/25 Rx furosemide 20 mg tablet 20 mg PO DAILY #30 tabs 02/22/25 06/02/25 Rx hydralazine 50 mg tablet 50 mg PO Q8 06/02/25 06/02/25 History Allergy/AdvReac Type Severity Reaction Status Date / Time atorvastatin (From Lipitor) Allergy INTOLERANCE Verified 06/02/25 12:34 ezetimibe (From Zetia) Allergy MYALGIA Verified 06/02/25 12:34 pravastatin Allergy MYALGIAS Verified 06/02/25 12:34 simvastatin (From Zocor) Allergy INTOLERANCE Verified 06/02/25 12:34 sitagliptin (From Januvia) Allergy INTOLERANCE Verified 06/02/25 12:34 tetanus and diphtheria Allergy Rash Verified 06/02/25 12:34 toxoids ciprofloxacin (From Cipro) AdvReac Intermediate achilles Verified 06/02/25 12:34 tendonitis Ntievfu-MYQ-MlN Reductase AdvReac Other Verified 06/02/25 12:34 Inhibitor (Sfhcnhd-Vfs-Lzb Reductase Inhibitor) Family History Father Diabetes Heart disease Myocardial infarction Mother CAD (coronary artery disease) Arthritis Surgical History History of right-sided carotid endarterectomy H/O drainage of abscess History of lumbar fusion History of ileostomy History of right hemicolectomy History of right-sided carotid endarterectomy (~11/2017) History of umbilical hernia S/P ventral herniorrhaphy S/P inguinal hernia repair S/P colonoscopy Social History household members: spouse Smoking Status: Former smoker alcohol intake: never substance use type: does not use ROS ROS ED Constitutional Constitutional ED: Denies chills, fever(s) or weight loss Eyes Eyes: Denies change in vision or diplopia ENT ENT ED: Denies ear pain, rhinorrhea or sore throat Cardiovascular Cardiovascular: Denies chest pain, orthopnea, palpitations or racing heartbeat Respiratory/Chest Respiratory/Chest: Reports cough, dyspnea and dyspnea on exertion; Denies orthopnea Gastrointestinal Gastrointestinal: Denies abdominal pain, diarrhea, nausea or vomiting Genitourinary Genitourinary ED: Denies dysuria, hematuria or urinary frequency Musculoskeletal Musculoskeletal: Denies arthralgias or myalgias Integumentary Denies abscess or rash Neurologic Neurologic: Denies headache(s) or weakness Psychiatric Psychiatric: Denies anxiety, depression, suicidal ideation or suicidal thoughts Endocrine Endocrinology: Denies polydipsia, polyphagia or polyuria Allergic/Immunologic Allergic/Immunologic ED: Denies mouth swelling, tongue swelling or urticaria EXAM Physical Exam Const Vital Signs: 06/02/25 12:34 06/02/25 12:39 06/02/25 12:41 Temperature 98.2 F 98.2 F Temperature Source Oral Oral Pulse Rate 83 80 Respiratory Rate 14 14 Respiratory Effort Blood Pressure 131/59 H 131/59 H Blood Pressure Mean 83 83 Pulse Ox 88 99 99 Oxygen Delivery Method Room Air Nasal Cannula Nasal Cannula Oxygen Flow Rate (L/min) 3 3 06/02/25 12:46 06/02/25 13:33 06/02/25 13:39 Temperature 98.2 F Temperature Source Oral Pulse Rate 73 Respiratory Rate 11 L Respiratory Effort Short of Breath Blood Pressure 119/54 L 119/54 L Blood Pressure Mean 75 75 Pulse Ox 92 Oxygen Delivery Method Nasal Cannula Nasal Cannula Oxygen Flow Rate (L/min) 3 2 06/02/25 14:00 06/02/25 14:37 06/02/25 14:45 Temperature 98.2 F Temperature Source Oral Pulse Rate 77 78 Respiratory Rate 12 13 Respiratory Effort Blood Pressure 135/74 H 138/72 H Blood Pressure Mean 94 93 Pulse Ox 92 99 Oxygen Delivery Method Nasal Cannula Oxygen Flow Rate (L/min) 3 06/02/25 15:00 06/02/25 15:00 06/02/25 15:15 Temperature 98.2 F Temperature Source Oral Pulse Rate 79 81 80 Respiratory Rate 16 14 16 Respiratory Effort Blood Pressure 149/74 H 149/74 H 141/61 H Blood Pressure Mean 99 96 85 Pulse Ox 98 99 98 Oxygen Delivery Method Room Air Oxygen Flow Rate (L/min) 06/02/25 15:30 06/02/25 15:45 06/02/25 15:58 Temperature 98.2 F Temperature Source Oral Pulse Rate 82 77 78 Respiratory Rate 16 10 L 10 L Respiratory Effort Blood Pressure 144/68 H 139/62 H 139/62 H Blood Pressure Mean 92 87 87 Pulse Ox 99 98 98 Oxygen Delivery Method Room Air Oxygen Flow Rate (L/min) 06/02/25 16:00 Temperature Temperature Source Pulse Rate 80 Respiratory Rate 10 L Respiratory Effort Blood Pressure 124/65 H Blood Pressure Mean 84 Pulse Ox 98 Oxygen Delivery Method Oxygen Flow Rate (L/min) Positive well nourished and well developed General Appearance ED: well developed and NAD HEENT Reports normocephalic, head/scalp atraumatic and moist mucous membranes Eyes PERRL and EOMs intact bilaterally Neck no lymphadenopathy, supple and no JVD Resp Resp Narrative: Patient has mild to moderate dyspnea. He has audible Rales. Cardio regular rate and regular rhythm Cardio Narrative: 3/6 systolic murmur GI normal to inspection, nondistended, normoactive bowel sounds and non-tender Palpation: soft Back/Spine no CVA tenderness and normal ROM Extremity normal to inspection General Extremety ED: Negative for edema General Extremity: Negative for edema Neuro oriented x3 and CN's II-XII intact bilaterally Sensorium / Orientation: alert Motor Exam: strength 5/5 throughout Psych mental status grossly normal Mood & Affect: Negative for depressed or tearful Skin no rashes or lesions noted and no wounds MDM MDM MDM Narrative Medical decision making narrative: Differential diagnosis includes bronchospasm CHF acute kidney injury electrolyte abnormalities anemia pneumonia COPD exacerbation Basic blood work shows a white count of 4.3 hemoglobin is 8 platelet count is 314. BMP with a sodium of 132 potassium of 5.9. Anion gap of 11 BUN is 63 and a creatinine of 4.03. This is substantially elevated off of his baseline. Glucose noted to be 117. Normal LFTs. Troponin is elevated at 55 with a second troponin at 63. proBNP is elevated 28,968. My independent interpretation of the chest x-ray is acute pulmonary edema. His EKG is a sinus rhythm with left bundle branch block (this is a known LBBB). Patient so far has made about 600 cc of urine from the Lasix that he took just prior to arrival. He is satting mid 90s on 3 L nasal cannula. Given the acute kidney injury and the pulmonary edema I think is reasonable to be brought into the hospital for further management. Patient and his family are in agreement with this. I spoke with our hospitalist who discussed the case with on-call cardiology Dr. Ruggiero. It is felt the patient given the cardiorenal syndrome and his critical would be best managed at [facility]. I reached out to [facility] Awaiting a phone call back. I spoke with [facility] hospitalist and the patient has been accepted. We are going to be awaiting bed assignment. History & Record Review Discussion w/independent historian: Patient and Family Additional record(s) reviewed:: Prior outpatient record, Prior ED visit and Prior labs Lab Data Attestation: I reviewed the patient's lab results. Labs: Laboratory Results - last 24 hr 06/02/25 06/02/25 13:03 14:57 WBC 4.3 L RBC 2.91 L Hgb 8.0 L Hct 25.0 L MCV 85.9 MCH 27.5 MCHC 32.0 RDW Std Deviation 44.6 H RDW Coeff of Disha 14.2 Plt Count 314 MPV 10.1 Immature Gran % (Auto) 0.200 Neut % (Auto) 69.6 Lymph % (Auto) 13.6 L [place] % (Auto) 9.6 Eos % (Auto) 6.3 H Baso % (Auto) 0.7 Absolute Neuts (auto) 3.0 Absolute Lymphs (auto) 0.58 L Nucleated RBC % 0 Sodium 132 L Potassium 5.9 H Chloride 101 Carbon Dioxide 20.1 L Anion Gap 11 BUN 63 H Creatinine 4.03 H Estim Creat Clear Calc 13.63 L Est GFR (MDRD) Non-Af 14 L BUN/Creatinine Ratio 15.7 Glucose 117 H Calcium 9.2 Total Bilirubin 0.45 AST 14 ALT 12 Alkaline Phosphatase 67 Troponin T High Sens 55 H* D Troponin T Hi Sens 2 Hr 63 H* [place] [address] H Total Protein 6.7 Albumin 3.5 Globulin 3.2 Albumin/Globulin Ratio 1.1 Radiography Diagnostic Testing: Clinical Impression(s) from Imaging Studies Chest X-Ray 06/02/25 13:07 IMPRESSION: Cardiomegaly with mild congestion. Reading Location: [facility] EKG Initial EKG: Attestation: I personally reviewed and interpreted this EKG as follows: Comments: Sinus rhythm with first-degree AV block and left bundle branch block at a rate of 83 bpm Prior EKG tracings: available for review Prior: Unchanged Management Discussion w/another healthcare provider: Hospitalist and Humanities Coordinator ([facility] Medicine) Discharge Plan Dx/Rx/DC Orders Clinical Impression: Acute pulmonary edema, Critical aortic valve stenosis, Acute on chronic kidney failure, Cardiorenal syndrome Disposition Disposition: [facility]
[2025-06-02 14:08] LABS: Troponin T High Sensitivity 55 ng/L (<=22)
[2025-06-02 14:09] LABS: AST(SGOT) 14 U/L (<=37); Alanine Aminotransfer ALT/SGPT 12 U/L (<=46); Albumin, Serum 3.5 g/dL (3.4-4.8); Alkaline Phosphatase 67 U/L (40-129); Anion Gap 11 (5-15); BUN 63 mg/dL (4-19); BUN/Creat Ratio 15.7 RATIO (10-20); Calcium,Total 9.2 mg/dL (7.6-11.0); Carbon Dioxide 20.1 mmol/L (21.0-32.0); Chloride 101 mmol/L (98-108); Estimated Creatinine Clearance 13.63 ml/min (50-250); Globulin 3.2 g/dL (2.2-4.2); Glucose 117 mg/dL (70-99); Potassium 5.9 mmol/L (3.3-5.1); Pro- Brain NATRIURETIC PEPTIDE 28968 pg/mL (<=1800)
--- NOTE | 2025-06-02 15:37 | PCM.CONS.GEN ---
Assessment & Plan Assessment/Plan (1) Cardiorenal syndrome: (2) Critical aortic valve stenosis: (3) Acute on chronic kidney failure: PLAN: Plan # Acute hypoxia suspect secondary to fluid overload with concerns for acute decompensation in setting of critical aortic stenosis -Patient does appear to be overloaded, additionally has increased work of breathing and was hypoxic at 88% on presentation - Previous echo with EF of 45% with severe aortic stenosis and mild concentric left ventricular hypertrophy in January -has since had echo at [facility] 04/10/2025 With valve area of 0.68 cm?, peak gradient of 70 mmHg, mean gradient 47 mmHg and echo read notes that gradients were significantly higher since previous - Discussed with cardiology, given worsened kidney function with the extent of his aortic valve stenosis with respiratory distress it is felt the patient needs to be transferred to a higher level of care where his valve can be addressed acutely - Discussed with Dr. Arrington, patient to be transferred # HAMMAD on CKD stage IV - Creatinine 2.65 at baseline, 4.03 today - Suspect cardiorenal, did have contrast a couple of weeks ago which may have contributed however given whole picture high concern for cardiorenal etiology - Recommending transfer as above # Hyperkalemia -Potassium 5.9, took his 80 mg of Lasix prior to coming, does seem to be diuresing better through Killian catheter # Elevated troponin -Suspect secondary fluid overload in setting of CKD, patient without chest pain - Repeat pending # Severe aortic stenosis -Being worked up for TAVR, see above Time spent in the patient's overall evaluation, decision-making process, review of diagnostic data, adjustment of management, discussion with other providers, nursing and ancillary staff involved in patient's care documentation, 45 Minutes HPI Consult Data Date of Consult: 06/02/25 HPI Narrative Reason for Consultation: Admission for HAMMAD, hyperkalemia and shortness of breath due to fluid overlo HPI Narrative: SYD BARNETT, is a 79-year-old male undergoing TAVR evaluation for aortic stenosis, COPD, diabetes, GERD, CKD stage IV following with nephrology presented to [facility] ED 06/02/2025 with shortness of breath. Reportedly saw nephrology yesterday and had Lasix increased. Despite taking 80 mg of Lasix yesterday and today reportedly breathing is more labored so he presented to the ED. in the ED temp 98.2, heart rate 83, blood pressure 131/59, respiratory rate 14 pulse ox 88% on room air so patient was placed on 3 L nasal cannula with improvement in O2 sats. CBC with white count 4.3, hemoglobin of 8 which appears to be baseline, CMP with sodium of 132, potassium 5.9, BUN of 63 and a creatinine of 4.03 up from 2.65 several months ago. proBNP 28,968, chest x-ray with cardiomegaly and mild congestion. Given patient's hypoxia, concern for fluid overload as well as HAMMAD hospitalist contacted for admission. Patient evaluated at bedside and reports that he has been having increased shortness of breath over the past couple of weeks that has worsened further over the past couple of days. 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 Still feeling significantly short of breath, denies chest pain, has had a slight cough, does report feeling dizzy when he stands up mostly over the past day. [facility] Medical History Chronic renal failure Acute hypoxemic respiratory failure HAMMAD (acute kidney injury) Left bundle branch block Cognitive dysfunction Dysphagia, oropharyngeal Myocardial infarction due to demand ischemia Left atrial enlargement Mild pulmonary hypertension Cardiomyopathy Other severe protein-calorie malnutrition History of diabetes mellitus Essential (primary) hypertension Diverticulosis Acute renal failure superimposed on stage 4 chronic kidney disease Diabetic polyneuropathy Iron deficiency anemia Irregular heart beat CKD (chronic kidney disease), stage IV Wears glasses Wears dentures BPH (benign prostatic hyperplasia) History of diverticulitis Former smoker Leg cramps History of echocardiogram Hypertrophic scar Carotid stenosis, left Sebaceous cyst Amaurosis fugax of right eye Sciatica Hyperlipidemia Osteoarthritis Hemorrhoid GERD (gastroesophageal reflux disease) HTN (hypertension) Home Medications ?Medication ?Instructions ?Recorded ?Last Taken ?Type aspirin 81 mg tablet,delayed 81 mg PO DAILY@0800 heart health 04/16/17 06/02/25 History release gabapentin 300 mg capsule 300 mg PO QHS PAIN 10/31/24 06/01/25 History acetaminophen 325 mg capsule 650 mg PO Q4H PRN fever or pain 01/11/25 Unknown History carvedilol 12.5 mg tablet 12.5 mg PO BIDCM #60 tabs 02/02/25 06/02/25 Rx insulin aspart U-100 100 unit/mL 3 unit (0.03 mL) subcut TID #2 pens 02/02/25 06/02/25 Rx (3 mL) subcutaneous pen insulin glargine-yfgn 100 unit/mL 14 unit (0.14 mL) subcut 0700 #2 02/02/25 06/02/25 Rx (3 mL) subcutaneous pen pens isosorbide dinitrate 10 mg tablet 10 mg PO TID@0700,1200,1700 #90 02/02/25 06/02/25 Rx tabs loperamide 2 mg capsule 4 mg (2 x 2 mg) PO Q6H #240 caps 02/02/25 06/02/25 Rx magnesium chloride 64 mg 64 mg PO BID #60 tabs 02/02/25 06/02/25 Rx (magnesium chloride) tablet,delayed release (Mag 64) mirtazapine 15 mg tablet 15 mg PO 2100 #30 tabs 02/02/25 06/01/25 Rx pantoprazole 40 mg tablet,delayed 40 mg PO BID #60 tabs 02/02/25 06/02/25 Rx release psyllium husk 3 gram oral powder 1 packet PO TID #90 ea 02/02/25 06/02/25 Rx packet (Daily Fiber (psyllium-aspartame)) simethicone 80 mg chewable tablet 80 mg PO PCHS #120 tabs 02/02/25 06/02/25 Rx sodium bicarbonate 650 mg tablet 650 mg PO TID #90 tabs 02/02/25 06/02/25 Rx furosemide 20 mg tablet 20 mg PO DAILY #30 tabs 02/22/25 06/02/25 Rx hydralazine 50 mg tablet 50 mg PO Q8 06/02/25 06/02/25 History Allergy/AdvReac Type Severity Reaction Status Date / Time atorvastatin (From Lipitor) Allergy INTOLERANCE Verified 06/02/25 12:34 ezetimibe (From Zetia) Allergy MYALGIA Verified 06/02/25 12:34 pravastatin Allergy MYALGIAS Verified 06/02/25 12:34 simvastatin (From Zocor) Allergy INTOLERANCE Verified 06/02/25 12:34 sitagliptin (From Januvia) Allergy INTOLERANCE Verified 06/02/25 12:34 tetanus and diphtheria Allergy Rash Verified 06/02/25 12:34 toxoids ciprofloxacin (From Cipro) AdvReac Intermediate achilles Verified 06/02/25 12:34 tendonitis Oukgzwr-GMZ-YfZ Reductase AdvReac Other Verified 06/02/25 12:34 Inhibitor (Rskgclr-Flz-Rpj Reductase Inhibitor) Family History Father Diabetes Heart disease Myocardial infarction Mother CAD (coronary artery disease) Arthritis Surgical History History of right-sided carotid endarterectomy H/O drainage of abscess History of lumbar fusion History of ileostomy History of right hemicolectomy History of right-sided carotid endarterectomy (~11/2017) History of umbilical hernia S/P ventral herniorrhaphy S/P inguinal hernia repair S/P colonoscopy Social History household members: spouse Smoking Status: Former smoker alcohol intake: never substance use type: does not use ROS ROS Narrative General: Denies fever/chills HENT: Did have a slight headache, denies stuffy nose, denies sore throat EYES: Denies changes in vision Resp: Slight cough, increased shortness of breath more so over the past 2 days Cardiac: Denies chest pain GI: Denies abdominal pain, ostomy about the same as usual, denies nausea/vomiting : Chronic Killian, did not seem to have very good output but it did increase slightly in the ED Extremity: Has had some swelling in lower extremities MSK: Somewhat generalized weakness Neuro: Denies any numbness/tingling Heme: Denies any bleeding or bruising Skin: Denies rashes Psychiatric: No complaints voiced Physical Exam Narrative General: Alert, appears to not feel well HEENT: Atraumatic, normocephalic Eyes: Anicteric, normal conjunctiva, extraocular movements grossly intact Neck: Supple Respiratory: Increased respiratory effort, audible wheezing likely cardiac wheeze Cardiovascular: Regular rate, systolic ejection murmur appreciated GI: Soft, nontender, nondistended Extremities: 1+ bilateral lower extremity edema Musculoskeletal: Moving all extremities Neuro: No overt focal neurological deficits Skin: No rashes appreciated Psych: Cooperative Lab / Micro Data 06/02/25 13:03 06/02/25 13:03 Labs: Laboratory Results - last 24 hr 06/02/25 13:03: WBC 4.3 L, RBC 2.91 L, Hgb 8.0 L, Hct 25.0 L, MCV 85.9, MCH 27.5, MCHC 32.0, RDW Std Deviation 44.6 H, RDW Coeff of Disha 14.2, Plt Count 314, MPV 10.1, Immature Gran % (Auto) 0.200, Neut % (Auto) 69.6, Lymph % (Auto) 13.6 L, [place] % (Auto) 9.6, Eos % (Auto) 6.3 H, Baso % (Auto) 0.7, Absolute Neuts (auto) 3.0, Absolute Lymphs (auto) 0.58 L, Nucleated RBC % 0, Sodium 132 L, Potassium 5.9 H, Chloride 101, Carbon Dioxide 20.1 L, Anion Gap 11, BUN 63 H, Creatinine 4.03 H, Estim Creat Clear Calc 13.63 L, Est GFR (MDRD) Non-Af 14 L, BUN/Creatinine Ratio 15.7, Glucose 117 H, Calcium 9.2, Total Bilirubin 0.45, AST 14, ALT 12, Alkaline Phosphatase 67, Troponin T High Sens 55 H* D, [place] [address] H, Total Protein 6.7, Albumin 3.5, Globulin 3.2, Albumin/Globulin Ratio 1.1 Imaging Radiology Impression Chest X-Ray 06/02/25 13:07 IMPRESSION: Cardiomegaly with mild congestion. Reading Location: [facility] Charges/Coding Visit Charges Office Visits / Consults: 49816 OV L5 Est 40min
[2025-06-02 15:41] LABS: Troponin T High Sens 2 HR 63 ng/L (<=22)
--- NOTE | 2025-06-02 17:16 | ED.RN ---
Dr Trevizo notified of critical 4hr troponin.
[2025-06-02 17:25] LABS: Troponin T High Sens 4 HR 110 ng/L (<=22)
--- NOTE | 2025-06-02 18:40 | PCA ---
bed assignment [facility] [id number] [facility] 1
--- NOTE | 2025-06-02 20:07 | ED.RN ---
Report called to Alexander Pillai
--- NOTE | 2025-06-02 20:32 | NURSING ---
[facility] here. REport given. Family notified. Pt dc.
== END 2025-06-02 21:06 | disposition short-term general hospital (02) ==
PROVIDERS: Emergency Provider Emergency Medicine; PCP Family Medicine; Visit Provider Emergency Medicine
DX: J81.0 Acute pulmonary edema (principal); Z93.2 Ileostomy status; N18.4 Chronic kidney disease, stage 4 (severe); J44.9 Chronic obstructive pulmonary disease, unspecified; E11.22 Type 2 diabetes mellitus with diabetic chronic kidney disease; Z79.4 Long term (current) use of insulin; E11.42 Type 2 diabetes mellitus with diabetic polyneuropathy; N17.9 Acute kidney failure, unspecified; I35.0 Nonrheumatic aortic (valve) stenosis; I13.10 Hypertensive heart and chronic kidney disease without heart failure, with stage 1 through stage 4 chronic kidney disease, or unspecified chronic kidney disease; E87.5 Hyperkalemia; Z79.82 Long term (current) use of aspirin; Z79.84 Long term (current) use of oral hypoglycemic drugs; Z79.899 Other long term (current) drug therapy; Z87.891 Personal history of nicotine dependence
CPT/HCPCS: 71045; 80053; 83880; 84484; 85025; 93005; 99285; A4216